=== PATIENT | female | born 1950 | race Caucasian/White ===

== ENCOUNTER → 2016-08-14 | Outpatient (CLI) | payer MEDICARE ==
[2016-08-14 12:34] LABS: ALT 31 U/L (9-52); AST 23 U/L (14-36); Alkaline Phosphatase 62 U/L (38-126); Anion Gap 11 mmol/L; Blood Urea Nitrogen 20 mg/dL (7-17); Calcium 9.5 mg/dL (8.4-10.2); Carbon Dioxide 23 mmol/L (22-30); Chloride 107 mmol/L (98-107); Glucose 154 mg/dL (74-99); Non-African American GFR(MDRD) >60 (>60 ml/min/1.73 sqM); Potassium 4.4 mmol/L (3.5-5.1); Sodium 141 mmol/L (137-145); Total Bilirubin 0.5 mg/dL (0.2-1.3); Total Protein 6.7 g/dL (6.3-8.2)
== END ==
LOC: LABWHC1 11:38
PROVIDERS: ATTEND Internal Medicine Critical Care Medicine
DX: D86.0 Sarcoidosis of lung (principal)
CPT/HCPCS: 36415; 80053; 82164; 85652

== ENCOUNTER 2016-08-15 11:25 | Emergency (ER) | payer MEDICARE, OTHER ==
[2016-08-15 11:36] VITALS: BP 144/64; PULSE 74; RESP 18; TEMP 97.2
[2016-08-15] MEDS ORDERED: DIPH,PERTUS(ACELL)TETVAC-LF 0.5 ML VIAL IM ONE (12:07)
--- NOTE | 2016-08-15 12:42 | XR ---
EXAMINATION TYPE: XR forearm RT DATE OF EXAM: 08/15/2016 12:32 PM CLINICAL HISTORY: Fall injury with pain. Proximal laceration. TECHNIQUE: Two views of the right forearm are obtained. COMPARISON: None. FINDINGS: There is no acute fracture or dislocation seen in the right radius or ulna. Osseous struct ures are demineralized. There is some spurring at right elbow joint. Right wrist joint is felt within normal limits. There is a dystrophic calcification mid forearm soft tissue. There is defect consiste nt with laceration along the volar ulnar aspect of the proximal forearm, no suspicious radiodense for eign body is seen. IMPRESSION: There is no acute fracture or dislocation seen in the right radius or ulna.
--- NOTE | 2016-08-15 12:45 | XR ---
EXAMINATION TYPE: XR hand complete LT DATE OF EXAM: 08/15/2016 12:32 PM CLINICAL HISTORY: Pain from fall injury particularly in fourth finger TECHNIQUE: Frontal, lateral and oblique images of the left hand are obtained. COMPARISON: None. FINDINGS: There is no acute fracture/dislocation evident in the left hand with particular attention in distal fourth finger. Osseous structures are demineralized. There is mild to moderate joint space loss throughout the PIP and PIP joints of the phalanges. Mild spurring first interphalangeal joint i s noted. The overlying soft tissue appears unremarkable. IMPRESSION: There is no acute fracture or dislocation in the left hand.
--- NOTE | 2016-08-15 12:54 | ED ---
General Adult HPI - General Chief complaint: Head Injury Stated complaint: HEAD INJURY FROM FALL ON PROPERTY Time Seen by Provider: 08/15/16 11:38 Source: patient, RN notes reviewed Mode of arrival: ambulatory Limitations: no limitations - History of Present Illness Initial comments: If complaint and history of present illness a 66-year-old female who is coming to the hospital to have a PET scan. She reports she had a little episode where she lost her balance and fell while actually signing into the hospital. She bumped her head on the counter bruised her right forearm and jammed her left ring finger. She received a 4 cm laceration on her scalp. The patient is on Plavix because she has 2 stents in her legs. Did not lose consciousness no nausea no vomiting no seizure activity. - Related Data Home Medications Medication Instructions Recorded Confirmed Cholecalciferol [Vitamin D3] 1,000 unit PO DAILY 08/15/16 08/15/16 Clopidogrel [Plavix] 75 mg PO DAILY 08/15/16 08/15/16 DULoxetine HCL [Cymbalta] 30 mg PO BID 08/15/16 08/15/16 carBAMazepine [TEGretol] 400 mg PO Q12H 08/15/16 08/15/16 Allergies Allergy/AdvReac Type Severity Reaction Status Date / Time erythromycin base Allergy Rash/Hives Verified 08/15/16 12:50 Fish Containing Products Allergy Anaphylaxis Verified 08/15/16 12:50 Penicillins Allergy Swelling Verified 08/15/16 12:50 Review of Systems ROS Statement: Those systems with pertinent positive or pertinent negative responses have been documented in the HPI. You have systems patient has a headache where she bumped her head. Denies any neck pain. No visual acuity changes no chest pain shows breath GI/ problems other than muscle pain from preventing herself from falling. Small bruise on her right forearm and tender left ring finger. All systems are reviewed. Past medical problems include coronary artery disease, diabetes mellitus, hyperlipidemia and hypothyroidism. Surgeries include appendectomy, previous back surgery, cholecystectomy, heart catheterization, bilateral knee replacements. She also has stents in her legs to increase blood flow. She quit smoking. ALLERGIES erythromycin base and penicillins ROS Other: All systems not noted in ROS Statement are negative. Past Medical History Past Medical History: Coronary Artery Disease (CAD), Diabetes Mellitus, Hyperlipidemia, Thyroid Disorder History of Any Multi-Drug Resistant Organisms: None Reported Past Surgical History: Appendectomy, Back Surgery, Cholecystectomy, Heart Catheterization With Stent Additional Past Surgical History / Comment(s): bilateral knee replacement, right rotator cuff Past Psychological History: Depression Smoking Status: Former smoker General Exam - General Exam Comments Initial Comments: General: The patient is awake and alert, she has a for similar laceration just along the hairline in the upper left forehead area. No loss of consciousness no nausea no vomiting or seizure activity. The patient's vital signs show temperature 97.2 pulse 74 story rate 18 pulse ox 99% room air blood pressure 144/64. Eye: Pupils are equal, round and reactive to light, extra-ocular movements are intact ; there is normal conjunctiva bilaterally. No signs of icterus. Ears, nose, mouth and throat: There are moist mucous membranes. Neck: The neck is supple, there is no tenderness . Cardiovascular: There is a regular rate and rhythm. No murmur, rub or gallop is appreciated. Respiratory: Lungs are clear to auscultation, respirations are non-labored, breath sounds are equal. No wheezes, stridor, rales, or rhonchi. Gastrointestinal: Soft, non-distended, non-tender abdomen without masses or organomegaly noted. There is no rebound or guarding present. No CVA tenderness. Bowel sounds are unremarkable. Back: Denies back pain. Musculoskeletal: Small bruise right forearm. Also tenderness with slight decreased range of motion to her left ring finger. He does have a previous injury causing a swan neck deformity. Neurovascular status intact. Skin: Neurological: Neurologically intact no evidence of any focal or lateralizing findings complaints. Skin is warm and dry and no rashes or lesions are noted. Limitations: no limitations Course Vital Signs 08/15/16 11:30 Temperature 97.2 F L Pulse Rate 74 Respiratory 18 Rate Blood Pressure 144/64 O2 Sat by Pulse 99 Oximetry Procedures - Procedures Initial comment: Procedure; laceration repair, 4 cm upper left for had along the hairline. Sterile technique was used. 1% Xylocaine was used numb the area. Cleaned well Betadine normal saline solution. The wound edges are approximated with 8 simple 6-0 nylon sutures. Hemostasis obtained with suturing and pressure. Small amount of bacitracin applied. Patient was advised to return in 7 days to have these removed. They are in the hairline. Or earlier should be signs of infection. Dr. Evnas Medical Decision Making - Medical Decision Making Oswald decision-making; the patient's x-rays include right forearm. This is reviewed by radiologist his impression is there is no acute fracture dislocation seen in the right radius or ulna. As read by Dr. ellis X-ray left hand reviewed by me showing demineralization but no acute bony fracture. There are some arthritic changes. Waiting radiologist's final impression. The radiologist review of the hand and his final impression is is no acute fracture dislocation of the left hand. As read by Dr. ellis CT of the brain and cervical spine were done and reviewed his final impression is there is no acute fracture dislocation evident in the cervical spine. No acute intracranial hemorrhage or midline shift. 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 As read by Dr. ellis She'll be discharged emergency room stable. Repeat questioning finds no new aches pains or problems. Was advised to have the sutures out in 7 days. Ice to her finger and forearm where she has some bumps and bruises. Disposition Clinical Impression: Scalp laceration, Contusion of forearm, right, Sprain, finger Disposition: HOME SELF-CARE Condition: Fair Instructions: Scalp Contusion in Adults (ED), Laceration (ED) Additional Instructions: Return in 7 days for suture to be removed earlier should be signs of infection. I ice to the area. Follow-up with family physician return emergency room. Time of Disposition: 13:04
--- NOTE | 2016-08-15 12:59 | CT ---
EXAMINATION TYPE: CT brain cspine wo con DATE OF EXAM: 08/15/2016 12:45 PM COMPARISON: CT brain August 21, 2010. HISTORY: fall and laceration to top of head at hair line CT DLP: DLP brain 1060.8 and Cervical 583.4 mGycm. Automated Exposure Control for Dose Reduction was Utilized. TECHNIQUE: CT scan of the head and cervical spine are performed without contrast. FINDINGS: There is no acute intracranial hemorrhage or midline shift identified. Ventricular and casey lcal prominence consistent with mild age-related cerebral atrophy is present. There is old infarct ri ght head of caudate nucleus level near axial image 20 redemonstrated. The globes are intact and the visualized sinuses are clear. The calvarium is intact. Cervical spine is visualized in its entirety from C1 through upper thoracic levels and demonstrates s atisfactory alignment without evidence of acute fracture or dislocation. Prevertebral soft tissue ap pears within normal limits. The C1-C2 articulation is within normal limits on the coronal images. Vertebral body heights are maintained. There is moderate to severe multilevel spurring. There is mild multilevel disc space narrowing most prominent C5-C6 and C6-C7 levels. Posterior spur disc complexes are effacing anterior thecal sac at these levels on sagittal and axial images. Vertebral body height s are maintained. Review of axial images show some left-sided marginal spurring contributing to multi level neural foraminal narrowing. There is mild apical thickening in both lung apices. Thyroid gland is felt within normal limits. Osseous structures are somewhat demineralized. IMPRESSION: 1. There is no acute fracture or dislocation is evident in the cervical spine. 2. No acute intracranial hemorrhage or midline shift. 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
== END 2016-08-15 13:13 | disposition home or self-care (01) ==
LOC: EC 11:25
DX: S63.615A Unspecified sprain of left ring finger, initial encounter (principal); S01.81XA Laceration without foreign body of other part of head, initial encounter; S50.11XA Contusion of right forearm, initial encounter; M19.042 Primary osteoarthritis, left hand; F32.9 Major depressive disorder, single episode, unspecified; Z87.891 Personal history of nicotine dependence; Z79.02 Long term (current) use of antithrombotics/antiplatelets; Z79.899 Other long term (current) drug therapy; Z88.0 Allergy status to penicillin; Z88.1 Allergy status to other antibiotic agents; Z91.013 Allergy to seafood; Z95.818 Presence of other cardiac implants and grafts; Z23 Encounter for immunization; W01.198A Fall on same level from slipping, tripping and stumbling with subsequent striking against other object, initial encounter; Y92.239 Unspecified place in hospital as the place of occurrence of the external cause; Y93.89 Activity, other specified
CPT/HCPCS: 99284 ×2; 12013 ×2; 90471 ×2; 73090; 73130; 78815; 72125; 70450; 90715; A9552

== ENCOUNTER → 2016-08-15 | Outpatient (CLI) | payer MEDICARE, OTHER ==
--- NOTE | 2016-08-18 18:43 | PE ---
EXAMINATION TYPE: PET CT fusion skull to thigh DATE OF EXAM: 08/15/2016 3:03 PM CLINICAL HISTORY: 66-year-old female with thoracic lymphadenopathy, initial evaluation. TECHNIQUE: Following the intravenous administration of 14.82 mCi of F-18 FDG, whole body images are performed from the skull base to the midthigh. Images are reviewed on the computer in the coronal, axial, and sagittal planes. Reconstructed rotating images are created on independent workstation and reviewed on the computer. A localization and attenuation correction CT is performed in conjunction with the PET scan. Glucose level: 74 mg/dL CTDI: 5.32 mGy DLP: 473.46 mGy-cm COMPARISON: CT chest 09/16/2011 FINDINGS: PET: Physiologic FDG uptake within the neck. Scattered nonenlarged and mildly enlarged mediastinal lymph nodes are redemonstrated. These measure u p to 1 cm in the AP window and 1.2 cm in the right paratracheal region. Lack of IV contrast limits as sessment of the hilar structures. These lymph nodes show minimal to no FDG uptake, maximal SUV 2.1, a nd are unchanged from 09/16/2011. However, interstitial and patchy, confluent groundglass opacities predominantly in the mid to lower l ungs have shown interval increase as compared to 09/16/2011. These areas show variable mild hypermetab olism, maximal SUV 2.5. Small focal area of mild FDG uptake seen along the apex of the right hemidiaphragm, axial PET image 9 7 and also at the posterior right costophrenic angle, axial PET image 112. CT shows no discrete nodul e in these locations but a nodule could be obscured by the groundglass. Max SUV 2.7 and 2.2, respecti vely. There is focal moderate FDG uptake, max SUV 4.6, in the location of the gastric antrum which could re present physiologic muscular activity. Variable bowel activity is likely physiologic. More intense long segment activity along the mid to di stal sigmoid and rectum also likely physiologic. There is an intensely hypermetabolic left inguinal lymph node which is mildly enlarged at 1.6 cm shor t axis. Max SUV 16.0. ATTENUATION CORRECTION CT: Visualized paranasal sinuses and mastoid air cells appear clear. No cervical lymphadenopathy. The heart is borderline to mildly enlarged without pericardial effusion. Coronary vessel calcificatio ns are present and are a marker for coronary artery disease. Mild atherosclerotic arch calcification s with conventional arch vessel branching anatomy. Mildly enlarged caliber to the main right and lef t pulmonary arteries and 2.7 cm each suggests underlying pulmonary arterial hypertension. No pleural effusion. Cholecystectomy clips. Moderate atherosclerotic calcifications within the abdominal aorta with a AAA measuring 3.2 cm wide. Bilateral common iliac artery stents are present. No dilated small bowel, vidya e fluid, or free air. No mesenteric or retroperitoneal lymphadenopathy seen. Bladder is urine distended. Uterus surgically absent. No adnexal mass or abnormal fluid collection in the pelvis. Bones: Degenerative changes of the hips. Posterior lumbar fusion hardware with laminectomy change is noted. Endplate spondylosis throughout the thoracic spine. No osseous destructive process. IMPRESSION: 1. Nonenlarged and borderline to mildly enlarged mediastinal lymph nodes measuring up to 1.2 cm show minimal to no FDG uptake with lymph nodes stable from 09/16/2011 suggesting a chronic postinflammatory etiology. 2. However, there is a mildly enlarged 1.6 cm left inguinal chain lymph node that shows very intense hypermetabolism and is suspicious. Targeted ultrasound and tissue sampling is recommended. 3. Moderate FDG uptake at the gastric antrum could be physiologic. However, given the focality, recom mend direct visualization to exclude early neoplasm. 4. Interstitial and groundglass changes especially in the mid to lower lungs have progressed from 201 2. These areas show mild FDG uptake suggesting an inflammatory process. Some differential considerati ons include interstitial pneumonitis such as NSIP and hypersensitivity pneumonitis. Atypical pneumoni as considered less likely. Clinical correlation recommended. 4. Two small areas of focal mild uptake at the right base without visualized pulmonary nodules. Recom mend 6 month follow-up contrast-enhanced CT chest to reassess. 5. Incidental findings include CAD, pulmonary arterial hypertension, and a 3.2 cm AAA.
== END | disposition home or self-care (01) ==
LOC: RADPETMAIN 13:11
PROVIDERS: ATTEND Internal Medicine Critical Care Medicine
DX: R59.0 Localized enlarged lymph nodes (principal); J84.89 Other specified interstitial pulmonary diseases; R94.8 Abnormal results of function studies of other organs and systems; E11.9 Type 2 diabetes mellitus without complications
CPT/HCPCS: 78815; A9552

== ENCOUNTER → 2016-08-17 | Outpatient (CLI) | payer MEDICARE, OTHER | END | disposition home or self-care (01) | LOC: LABWHC1 12:56 | PROVIDERS: ATTEND Internal Medicine Critical Care Medicine | DX: D86.0 Sarcoidosis of lung (principal) | CPT/HCPCS: 81050; 82340 ==

== ENCOUNTER 2016-09-09 11:04 | Day surgery (SDC) | payer MEDICARE, OTHER ==
[2016-09-09 11:32] VITALS: RESP 14; TEMP 98
[2016-09-09 12:32] VITALS: BP 155/61; PULSE 69
--- NOTE | 2016-09-09 15:16 | US ---
EXAMINATION TYPE: US biopsy lymph node DATE OF EXAM: 09/09/2016 12:21 PM HISTORY: Left inguinal adenopathy, mass. FINDINGS: Maximal barrier technique was utilized. The skin overlying a suitable path to the patient' s mass was localized with ultrasound and the overlying skin prepped and draped. Ultrasound was utili zed with sterile technique. Lidocaine was used for local anesthesia. A skin gabby was made with a sc alpel. An 18-gauge needle was advanced under direct ultrasound guidance and core specimen obtained o f the mass. Specimen submitted in formalin to Pathology. Following the procedure, hemostasis achiev ed and the patient is discharged in stable condition without complication. IMPRESSION:STATUS POST ULTRASOUND GUIDED CORE BIOPSY OF left inguinal MASS, PATHOLOGY IS PENDING. TH IS PROCEDURE IS PERFORMED BY THE UNDERSIGNED.
== END 2016-09-09 12:28 | disposition home or self-care (01) ==
LOC: RADPROMAIN 11:04
PROVIDERS: ATTEND Internal Medicine Critical Care Medicine
DX: C96.9 Malignant neoplasm of lymphoid, hematopoietic and related tissue, unspecified (principal); E78.5 Hyperlipidemia, unspecified; E03.9 Hypothyroidism, unspecified; Z87.891 Personal history of nicotine dependence; E11.9 Type 2 diabetes mellitus without complications; Z79.84 Long term (current) use of oral hypoglycemic drugs; Z79.02 Long term (current) use of antithrombotics/antiplatelets; Z79.82 Long term (current) use of aspirin; Z79.899 Other long term (current) drug therapy; Z88.0 Allergy status to penicillin
CPT/HCPCS: 38505; 76942; 88305; 88341; 88342

== ENCOUNTER 2016-09-21 06:00 | Inpatient (IN) | payer MEDICARE, OTHER ==
[2016-09-18 09:08] VITALS: BMI 35.4
[~2016-09-21 06:00] MED LIST: DEXAMETHASONE SOD PHOSPHATE 10 MG/ML 1 ML VIAL IV ONE; LACTATED RINGERS 1,000 ML IV SCH; LIDOCAINE 1% 20 ML VIAL (10MG/ML) FOR IV START INTRADERMA PRN; ONDANSETRON 4 MG/2 ML VIAL IVP ONE; Pre Op ABX Message 1 EACH MISC MISCELLANE ONE; SCOPOLAMINE 1.5MG/72HR PATCH TRANSDERM ONE
[2016-09-21 06:53] LABS: Glucose,Whole Blood 123 mg/dL (75-99)
[2016-09-21] MEDS ORDERED: BUPIVACAINE (PF) 0.5% 30 ML VIAL SQ ONE ×2 (07:53→09:39)
[2016-09-21] MEDS ORDERED: HYDROmorphone (PF) 1 MG/ML ONE (08:10)
[2016-09-21] MEDS ORDERED: SUCCINYLCHOLINE CHLORIDE 100 MG/5 ML SYR IV ONE (08:10)
[2016-09-21] MEDS ORDERED: GLYCOPYRROLATE 0.2 MG/ML 2 ML VIAL ONE (08:10)
[2016-09-21] MEDS ORDERED: ROCURONIUM BROMIDE 10 MG/ML 10 ML VIAL IV ONE (08:10)
[2016-09-21] MEDS ORDERED: PROPOFOL 10 MG/ML 20 ML VIAL IV ONE (08:10)
[2016-09-21] MEDS ORDERED: NEOSTIGMINE 1 MG/ML 10 ML VIAL ONE (08:10)
[2016-09-21] MEDS ORDERED: MIDAZOLAM 2 MG/2 ML VIAL ONE (08:10)
[2016-09-21] MEDS ORDERED: fentaNYL (PF) 50 MCG/ML 2 ML AMP ONE (08:10)
[2016-09-21] MEDS ORDERED: LIDOCAINE 1% INJ 10MG/ML (20 ML MDV) ONE (08:10)
[2016-09-21] MEDS ORDERED: SODIUM CHLORIDE 0.9% 100 ML with ceFAZolin 2,000 MG IV ONE ×2 (08:10)
[2016-09-21] MEDS ORDERED: PHENYLEPHRINE-0.9% NACL SYG 1 MG/10 ML SYRINGE ONE (08:10)
[2016-09-21] MEDS ORDERED: LACTATED RINGERS 1,000 ML IV ONE (09:20)
--- NOTE | 2016-09-21 09:52 | P.OP ---
Date of Procedure: 09/21/16 Preoperative Diagnosis: Bilateral pulmonary infiltrates, mediastinal adenopathy. Postoperative Diagnosis: Same Procedure(s) Performed: Left thoracoscopy, lung biopsy, mediastinal lymph node biopsy Implants: Anesthesia: DIAMANTEA Surgeon: Rajeev Dillon Weapons Officer [employer]: Steve De La Cruz Estimated Blood Loss (ml): 100 IV fluids (ml): 1,400 Urine output (ml): 200 Pathology: other (Biopsy of both upper and lower lobes left long sent for culture and pathology, biopsy of mediastinal lymph node sent for both culture and pathology) Disposition: PACU Indications for Procedure: I lateral pulmonary infiltrates, mediastinal lymph adenopathy Operative Findings: Lung compliance was very poor there were areas of atelectasis of the lung tissue which were associated with increased bogginess of the lung tissue there was an enlarged mediastinal lymph node in the paraAortic region Description of Procedure: The patient was brought to the operating room placed supine on the operating table anesthetized and intubated with a double-lumen endotracheal tube. The tube was positioned with fiberoptic bronchoscopy. No endobronchial lesions were noted. Patient was turned in the right lateral decubitus position and the left chest sterilely prepped and draped. One-inch incisions were made in the left chest and carried down through skin and subcutaneous tissue and muscle and into the pleural space. The pleural space was explored. The findings were as noted above. Lung compliance was very poor and we never obtain complete pneumothorax and atelectasis of the lung. We proceeded to biopsy the left upper and lower lobe with multiple firings of Endo TITO stapler. Specimens were brought out onto the field and divided. A portion were sent for culture. The remainder was sent for pathology. We had to reposition the endotracheal tube several times. With the tube in optimal position we were able to expose the mediastinum early and clearly identify an enlarged lymph node behind the pleura overlying the arch of the aorta. Electrocautery was used to incise the pleura at this region being careful to avoid injury to the phrenic nerve. The lymph node was dissected out from the mediastinal fat using electrocautery and blunt dissection and brought out onto the field. The site was packed with some Surgicel. The specimen was divided and a portion was sent for culture and the remainder for pathology. It and suctioned out the blood and fluid from the pleural space and checked for hemostasis which was good. 28-Kiswahili chest tube was placed through separate stab incision and positioned posterior apically. It was secured with an 0 Ethibond suture. The lung was reinflated under direct vision. Rib blocks were performed at the level of the incision with half percent Marcaine. Incisions were closed with layers of Vicryl suture. There were dressed with sterile dressings and the patient was turned supine and extubated and transferred to recovery in stable condition.
[2016-09-21 10:26] LABS: Glucose,Whole Blood 156 mg/dL (75-99)
--- NOTE | 2016-09-21 10:38 | XR ---
EXAMINATION TYPE: XR chest 1V portable DATE OF EXAM: 09/21/2016 HISTORY: Left chest tube. REFERENCE: Previous study dated 10/26/2014. FINDINGS: A left pleural drain has been inserted. Its tip is at the apex of the left lung. The heart is enlarged. There is diffuse interstitial and airspace disease, worse on the left than the right. I cannot exclud e a small left effusion. There is a minimal apical pneumothorax on the left. IMPRESSION: 1. MINISCULE, LEFT APICAL PNEUMOTHORAX. 2. STATUS POST LEFT-SIDED CHEST TUBE PLACEMENT. 3. INTERSTITIAL AND ALVEOLAR AIRSPACE DISEASE BILATERALLY WORSE ON THE LEFT THAN THE RIGHT. THIS LIKE LY REFLECTS PNEUMONIA. 4. I CANNOT EXCLUDE A SMALL LEFT-SIDED PNEUMOTHORAX.
[2016-09-21] MEDS: HYDROmorphone 1 MG/ML 1 ML SYRINGE IVP PRN ×4 (11:47→15:57)
[2016-09-21] MEDS: KETOROLAC 30 MG/ML 1 ML VIAL IVP SCH ×3 (13:00→23:32)
[2016-09-21] MEDS ORDERED: IPRATROPIUM-ALBUTEROL 3 ML NEB IH PRN (15:59)
[2016-09-21] MEDS ORDERED: HYDROcodone/APAP 5-325MG 1 EACH TAB PO PRN (15:59)
[2016-09-21] MEDS ORDERED: FAMOTIDINE 20 MG TAB PO PRN (15:59)
[2016-09-21] MEDS ORDERED: ONDANSETRON 4 MG/2 ML VIAL IVP PRN (15:59)
[2016-09-21 16:22] LABS: Glucose,Whole Blood 142 mg/dL (75-99)
[2016-09-21] MEDS: DEXTROSE 5%-0.45% NACL 1,000 ML IV SCH (17:49)
--- NOTE | 2016-09-21 18:55 | XR ---
EXAMINATION TYPE: XR chest 1V DATE OF EXAM: 09/21/2016 COMPARISON: Today HISTORY: Postop heart surgery TECHNIQUE: Single frontal view of the chest is obtained. FINDINGS: There is a left chest tube that appears in good position. I see no pneumothorax. There are chest leads. There is coarsening of interstitial markings. There is probably some infiltrate in the left lung. IMPRESSION: Left chest tube without change in position compared to last exam. No pneumothorax. No gr oss heart failure. Infiltrate in left lung is unchanged compared to the exam this morning.
[2016-09-21] MEDS: HYDROcodone/APAP 5-325MG 1 EACH TAB PO PRN ×2 (19:14→23:31)
[2016-09-21] MEDS: IPRATROPIUM-ALBUTEROL 3 ML NEB IH SCH ×2 (19:33)
[2016-09-21] MEDS ORDERED: traZODone HCL 100 MG TAB PO SCH (21:00)
[2016-09-21] MEDS ORDERED: ATORVASTATIN 10 MG TAB PO SCH (21:00)
[2016-09-21] MEDS: metFORMIN 500 MG TAB PO SCH (21:16)
[2016-09-21] MEDS: carBAMazepine 200 MG TAB PO SCH (21:16)
[2016-09-21] MEDS: HEPARIN SODIUM,PORCINE 5,000 UNIT/ML 1 ML VIAL SQ SCH (21:16)
[2016-09-21] MEDS: OXYBUTYNIN CHLORIDE 5 MG TAB PO SCH (21:16)
[2016-09-21 21:17] LABS: Glucose,Whole Blood 164 mg/dL (75-99)
[2016-09-21] MEDS: INSULIN LISPRO (humaLOG) 300 UNIT/3 ML VIAL SQ SCH (21:17)
[2016-09-22 04:30] LABS: Glucose,Whole Blood 90 mg/dL (75-99)
[2016-09-22] MEDS: HYDROcodone/APAP 5-325MG 1 EACH TAB PO PRN ×2 (04:31→11:46)
[2016-09-22 04:56] LABS: Basophils % (A) 1 %; CH 32.5; CHCM 32.7; Eosinophils % (A) 1 %; HDW 2.34; HGB 11.4 gm/dL (11.4-16.0); Luc # (Auto) 0.18; Luc % (Auto) 2; Lymphocytes # (A) 3.3 k/uL (1.0-4.8); Lymphocytes % (A) 41 %; MCH 32.6 pg (25.0-35.0); MCHC 32.7 g/dL (31.0-37.0); MCV 99.8 fL (80.0-100.0); Mean Platelet Volume 7.2; Monocytes # (A) 0.4 k/uL (0-1.0); Monocytes % (A) 5 %; Neutrophils % (A) 51 %; RBC 3.51 m/uL (3.80-5.40); RDW 13.5 % (11.5-15.5); WBC 7.9 k/uL (3.8-10.6); WBC (Perox) 8.03
[2016-09-22] MEDS: DEXTROSE 5%-0.45% NACL 1,000 ML IV SCH (05:10)
[2016-09-22 05:36] LABS: Anion Gap 9 mmol/L; Blood Urea Nitrogen 22 mg/dL (7-17); Calcium 8.3 mg/dL (8.4-10.2); Carbon Dioxide 24 mmol/L (22-30); Chloride 102 mmol/L (98-107); Glucose 85 mg/dL (74-99); Non-African American GFR(MDRD) >60 (>60 ml/min/1.73 sqM); Potassium 3.9 mmol/L (3.5-5.1); Sodium 135 mmol/L (137-145)
[2016-09-22] MEDS ORDERED: POTASSIUM CHLORIDE ER 20 MEQ TAB.ER PO SCH (06:00)
[2016-09-22] MEDS ORDERED: Potassium Replacement Protocol 1 EACH MISC MISCELLANE PRN (06:00)
[2016-09-22] MEDS: KETOROLAC 30 MG/ML 1 ML VIAL IVP SCH ×2 (06:20→12:34)
[2016-09-22] MEDS ORDERED: LEVOTHYROXINE 25 MCG TAB PO SCH (06:30)
[2016-09-22] MEDS ORDERED: GLIMEPIRIDE 2 MG TAB PO SCH (07:30)
[2016-09-22] MEDS: IPRATROPIUM-ALBUTEROL 3 ML NEB IH SCH ×2 (07:38→10:58)
--- NOTE | 2016-09-22 07:57 | XR ---
EXAMINATION TYPE: XR chest 1V DATE OF EXAM: 09/22/2016 HISTORY: post op. REFERENCE: Previous study dated 09/21/2016. FINDINGS: The left pleural drain remains in place, unchanged in appearance. Heart size upper limits of normal. There is vascular congestion and increased interstitial change. I suspect a left effusion. IMPRESSION: FINDINGS CONSISTENT WITH WORSENING HEART FAILURE.
[2016-09-22 08:03] LABS: Glucose,Whole Blood 102 mg/dL (75-99)
[2016-09-22 08:43] VITALS: TEMP 98.3
[2016-09-22] MEDS: OXYBUTYNIN CHLORIDE 5 MG TAB PO SCH (08:53)
[2016-09-22] MEDS: metFORMIN 500 MG TAB PO SCH (08:53)
[2016-09-22] MEDS: INSULIN LISPRO (humaLOG) 300 UNIT/3 ML VIAL SQ SCH ×2 (08:54→12:43)
[2016-09-22] MEDS: carBAMazepine 200 MG TAB PO SCH (08:54)
[2016-09-22] MEDS: HEPARIN SODIUM,PORCINE 5,000 UNIT/ML 1 ML VIAL SQ SCH (08:57)
[2016-09-22] MEDS ORDERED: CHOLECALCIFEROL 1,000 UNIT TAB PO SCH (09:00)
[2016-09-22] MEDS ORDERED: DIPYRIDAMOLE 25 MG TAB PO SCH (09:00)
[2016-09-22] MEDS ORDERED: CLOPIDOGREL 75 MG TAB PO SCH (09:00)
[2016-09-22] MEDS ORDERED: CITALOPRAM HYDROBROMIDE 20 MG TAB PO SCH (09:00)
--- NOTE | 2016-09-22 09:57 | P.PN ---
Subjective Principal diagnosis: Bilateral pulmonary infiltrates, mediastinal adenopathy POD #1 left thoracoscopy, lung biopsy, mediastinal lymph node biopsy Patient is currently sitting up in bed in no apparent distress. States she has ambulated to the bathroom without any difficulty. Tolerating diet. Objective - Vital Signs Vital signs: Vital Signs Temp 98.6 F 09/22/16 04:00 Pulse 75 09/22/16 07:56 Resp 13 09/22/16 04:00 BP 96/48 09/22/16 04:00 Pulse Ox 95 09/22/16 04:00 Intake & Output 09/21/16 09/22/16 09/22/16 18:59 06:59 18:59 Intake Total 1850 1200 Output Total 300 700 Balance 1550 500 Weight 98.5 kg Intake: IV 1850 1100 Dextrose 5%-0.45% NaCl 1, 1100 000 ml @ 75 mls/hr IV . [id number] [facility] Rx#:[id number] Oral 100 Output: Chest Tube Drainage 180 Left Lateral Chest 180 Drainage 20 Left Chest 20 Urine 200 500 Estimated Blood Loss 100 Other: Voiding Method Toilet Toilet - Constitutional General appearance: Present: cooperative, no acute distress - Respiratory Details: Lungs sounds diminished bilaterally, coarse bilateral bases. Respirations even , nonlabored. Currently delusional is cannula suction saturation 95%. Left pleural chest tube to -20 cm wall suction, drained 100 mL serous fluid overnight , 380 mL since surgery. No air leak present. Able to achieve 1500 mL on her incentive spirometer. - Cardiovascular Details: S1, S2 present. Regular rate and rhythm, normal sinus rhythm on telemetry. - Gastrointestinal Gastrointestinal Comment(s): Abdomen soft, nontender, nondistended. Active bowel sounds 4 quadrants. Tolerating diet. - Genitourinary Genitourinary Comment(s): Voiding clear, yellow urine - Musculoskeletal Musculoskeletal: Present: gait normal, strength equal bilaterally - Psychiatric Psychiatric: Present: A&O x's 3, appropriate affect, intact judgment & insight - Allied health notes Allied health notes reviewed: nursing - Labs CBC & Chem 7: 09/22/16 04:04 09/22/16 04:04 Labs: Abnormal Lab Results - Last 24 Hours (Table) 09/21/16 09/21/16 09/21/16 Range/Units 10:24 16:20 21:14 RBC (3.80-5.40) m/uL Sodium (137-145) mmol/L BUN (7-17) mg/dL POC Glucose (mg/dL) 156 H 142 H 164 H (75-99) mg/dL Calcium (8.4-10.2) mg/dL 09/22/16 09/22/16 09/22/16 Range/Units 04:04 04:04 08:01 RBC 3.51 L (3.80-5.40) m/uL Sodium 135 L (137-145) mmol/L BUN 22 H (7-17) mg/dL POC Glucose (mg/dL) 102 H (75-99) mg/dL Calcium 8.3 L (8.4-10.2) mg/dL Microbiology - Last 24 Hours (Table) 09/21/16 09:12 Gram Stain - Preliminary Lung - Left Tissue Culture - Preliminary 09/21/16 09:12 Gram Stain - Preliminary Lung - Left Tissue Culture - Preliminary 09/21/16 09:28 Gram Stain - Preliminary Lymph Node Tissue Culture - Preliminary 09/21/16 09:28 Fungal Culture - Preliminary Lymph Node 09/21/16 09:12 Fungal Culture - Preliminary Lung - Left 09/21/16 09:28 Anaerobic Culture - Preliminary Lymph Node 09/21/16 09:12 Anaerobic Culture - Preliminary Lung - Left 09/21/16 09:12 Anaerobic Culture - Preliminary Lung - Left 09/21/16 09:12 Fungal Culture - Preliminary Lung - Left 09/21/16 09:12 Acid Fast Bacilli Culture - Preliminary Lung - Left 09/21/16 09:28 Acid Fast Bacilli Culture - Preliminary Lymph Node 09/21/16 09:12 Acid Fast Bacilli Culture - Preliminary Lung - Left - Imaging and Cardiology Chest x-ray: report reviewed, image reviewed Assessment and Plan (1) Bilateral pulmonary infiltrates on chest x-ray Status: Acute (2) Mediastinal adenopathy Status: Acute (3) Diabetes Status: Acute (4) Obesity (BMI 30-39.9) Status: Acute (5) Peripheral vascular disease Status: Acute (6) Arthritis Status: Acute (7) Hypercholesterolemia Status: Acute Plan: 1. Chest tube placed to waterseal. 2. Wean O2 as tolerated. Encourage incentive spirometry use. 3. Pain control with ordered medications. 4. Increase activity, ambulate in hallway. 5. GI/DVT prophylaxis. 6. May discontinue chest tube, repeat chest x-ray, and possibly discharge later today. Time with Patient: Greater than 30
[2016-09-22] MEDS ORDERED: FUROSEMIDE 10 MG/ML 2 ML VIAL IV ONE (10:13)
--- NOTE | 2016-09-22 10:13 | P.PN ---
Subjective 66-year-old female patient who underwent a a left thoracoscopy, lung biopsy and mediastinal lymph node biopsy. The surgery was done by Dr. Rajeev Dillon. Estimated blood loss was 100 mL. Postop the patient came into the intensive care unit. The patient currently has a chest tube with no evidence of any air leak and the postop the chest x-ray shows adequate expansion of both lungs without evidence of any pneumothorax. This patient has been having difficulties with shortness of breath and cough and nonproductive sputum. She has a long history of smoking and she carries more than [id number] smoking history. She quit smoking and for now she is smoke free. She is also known to have obstructive sleep apnea and she is utilizing his CPAP each is also known to have peripheral vascular disease and has undergone percutaneous revascularization surgery. Currently she is hemodynamically stable. No pain issues. No respiratory difficulties. I acid at the bedside. On 09/22/2016, the patient is postop day #1. The patient is doing well. Pain is under good control. Today chest x-ray shows increased pulmonary vascular markings yet that is no evidence of any pneumothorax and a chest tube is in a good location and there is no evidence of any air leak. Hemodynamically the patient remains stable on no oxygen. The output from the chest tube is around 100 mL only over the past 12 hours Objective - Vital Signs Vital signs: Vital Signs Temp 98.3 F 09/22/16 08:00 Pulse 81 09/22/16 08:00 Resp 24 09/22/16 08:00 BP 95/47 09/22/16 08:00 Pulse Ox 96 09/22/16 08:00 Intake & Output 09/21/16 09/22/16 09/22/16 18:59 06:59 18:59 Intake Total 1850 1200 225 Output Total 300 700 140 Balance 1550 500 85 Weight 98.5 kg Intake: IV 1850 1100 225 Dextrose 5%-0.45% NaCl 1, 1100 225 000 ml @ 75 mls/hr IV . [id number] [facility] Rx#:[id number] Oral 100 Output: Chest Tube Drainage 180 40 Left Lateral Chest 180 40 Drainage 20 Left Chest 20 Urine 200 500 100 Estimated Blood Loss 100 Other: Voiding Method Toilet Toilet - Exam Head exam was generally normal. There was no scleral icterus or corneal arcus. Mucous membranes were moist.Neck was supple and without jugular venous distension, thyromegaly, or carotid bruits. Carotids were easily palpable bilaterally. There was no adenopathy. Lung sounds are diminished in lung bases bilaterally along with some bibasilar crackles and the patient has a chest tube on the left. Incision and surgical wound sites are all clean and intact.Cardiac exam revealed the PMI to be normally situated and sized. The rhythm was regular and no extrasystoles were noted during several minutes of auscultation. The first and second heart sounds were normal and physiologic splitting of the second heart sound was noted. There were no murmurs, rubs, clicks, or gallops. Abdominal exam revealed normal bowel sounds. The abdomen was soft, non-tender, and without masses, organomegaly, or appreciable enlargement of the abdominal aorta.Examination of the extremities revealed easily palpable radial, femoral and pedal pulses. There was no cyanosis, clubbing or edema. - Labs CBC & Chem 7: 09/22/16 04:04 09/22/16 04:04 Labs: Abnormal Lab Results - Last 24 Hours (Table) 09/21/16 09/21/16 09/21/16 Range/Units 10:24 16:20 21:14 RBC (3.80-5.40) m/uL Sodium (137-145) mmol/L BUN (7-17) mg/dL POC Glucose (mg/dL) 156 H 142 H 164 H (75-99) mg/dL Calcium (8.4-10.2) mg/dL 09/22/16 09/22/16 09/22/16 Range/Units 04:04 04:04 08:01 RBC 3.51 L (3.80-5.40) m/uL Sodium 135 L (137-145) mmol/L BUN 22 H (7-17) mg/dL POC Glucose (mg/dL) 102 H (75-99) mg/dL Calcium 8.3 L (8.4-10.2) mg/dL Microbiology - Last 24 Hours (Table) 09/21/16 09:12 Gram Stain - Preliminary Lung - Left Tissue Culture - Preliminary 09/21/16 09:28 Gram Stain - Preliminary Lymph Node Tissue Culture - Preliminary 09/21/16 09:12 Gram Stain - Preliminary Lung - Left Tissue Culture - Preliminary 09/21/16 09:28 Fungal Culture - Preliminary Lymph Node 09/21/16 09:12 Fungal Culture - Preliminary Lung - Left 09/21/16 09:28 Anaerobic Culture - Preliminary Lymph Node 09/21/16 09:12 Anaerobic Culture - Preliminary Lung - Left 09/21/16 09:12 Anaerobic Culture - Preliminary Lung - Left 09/21/16 09:12 Fungal Culture - Preliminary Lung - Left 09/21/16 09:12 Acid Fast Bacilli Culture - Preliminary Lung - Left 09/21/16 09:28 Acid Fast Bacilli Culture - Preliminary Lymph Node 09/21/16 09:12 Acid Fast Bacilli Culture - Preliminary Lung - Left Assessment and Plan Plan: Assessment 1 interstitial lung disease with borderline mediastinal lymphadenopathy, status post thoracoscopy, lung biopsy, mediastinal lymph node biopsy, patient is postop day #1. The patient has output of 100 mL over the past 12 hours and there is no evidence of air leak and there is no evidence of pneumothorax on today's chest x-ray. 2 postsurgical left-sided chest tube 3 obstructive sleep apnea maintained on CPAP on outpatient basis 4 peripheral vascular disease 5 diabetes mellitus 6 obesity 7 degenerative arthritis 8 GERD 9 hyperlipidemia Plan Give the patient dose of Lasix 20 mg IV push. The chest tubes can be removed today. Output is minimal. There is no evidence of any air leak. Lungs are well expanded. Continue using incentive spirometer. Pain control. Discharge home today. Follow-up with pulmonary regarding the results of the open lung biopsy.
--- NOTE | 2016-09-22 11:40 | P.DS ---
Providers Date of admission: 09/21/16 06:00 Attending physician: Rajeev Dillon Consults: 09/21/16 10:08 Consult Physician Routine Consulting Provider: Desean Bhagat Consult Reason/Comments: medical managment Do you want consulting provider notified?: Yes 09/21/16 15:59 Consult Physician Routine Consulting Provider: Oswald Irving Reason/Comments: known to you, post biopsy Do you want consulting provider notified?: Yes Primary care physician: Rajeev Zac [facility] Course: FINAL DIAGNOSIS: 1.[ Bilateral pulmonary infiltrates, mediastinal adenopathy] 2.[ Diabetes mellitus type 2] 3.[ Peripheral arterial vascular disease] 4.[ Obesity] 5.[ Gastroesophageal reflux disease] 6.[ Hyperlipidemia] 7.[ Hypothyroidism] 8.[ Coronary artery disease] 9.[ Sleep apnea] 10.[ History of tobacco abuse] PRINCIPAL PROCEDURE: 1.[ Left thoracoscopy, lung biopsy, mediastinal lymph node biopsy] HISTORY OF PRESENT ILLNESS: [This is a 66-year-old female patient who is followed by Dr. Rajeev Frank on an outpatient basis. Recently, the patient has had complaints of fatigue for several months. Subsequently she underwent a sleep study and was diagnosed with sleep apnea and uses a nighttime CPAP. She continued to have complaints of fatigue and also developed a black toe and was subsequently evaluated by Dr. Medrano from vascular surgery. During her workup for the black toe the patient underwent a CT angiogram from her head to her toe and was incidentally found to have bilateral pulmonary infiltrates as well as some mediastinal adenopathies. Dr. Irving from pulmonary medicine was consulted and a full pulmonary workup was completed. The patient also underwent a PET scan which was suggestive of interstitial lung disease, mildly enlarged mediastinal lymph nodes which measure up to 1 cm in the AP window and 1.2 cm in the right paratracheal region, and demonstrated some positive inguinal lymph nodes which were biopsied, and were positive for poorly differentiated squamous cell carcinoma. She was subsequently referred to Dr. Rajeev Dillon from cardiothoracic surgery to undergo a video-assisted thoracoscopic surgery with lung biopsy. Dr. Dillon did evaluate the patient and review the above- mentioned studies with the patient and recommended an elective video-assisted thoracoscopic surgery with lung biopsy and mediastinal lymph node biopsy.] HOSPITAL COURSE:[ The patient was admitted to the hospital and after obtaining consent was taken to the operating room where Dr. Dillon performed an elective left thoracoscopic surgery with lung biopsy and mediastinal lymph node biopsy. The patient was then transferred to the recovery unit where she was hemodynamically monitored and recovered. She was subsequently transferred to the intensive care unit for further monitoring and medical care. Her pathologies results remain pending at this time, but will be discussed with her on her follow-up visit in the office with Dr. Dillon. ] COMPLICATIONS: [There were no postoperative complications.] CONSULTATIONS: 1.[ Dr. Adams for pulmonary management] 2.[ Dr. Bhagat for medical management] DISCHARGE INSTRUCTIONS: 1. No driving for 2 weeks, or until physician gives their ok. 2. The patient should sleep in their own bed, no medical bed needed. 3. Stairs are not an issue. If the bedroom is upstairs, it is advised that the patient go up at night and down in the morning for the first week. Go slowly, using handrail and take 1 step at a time. 4. Continue pain control per as needed orders. 5. Continue with incentive spirometry until otherwise directed by the physician. 6. Please notify surgeon/nurse practitioner for temperature greater than 10 1 F or purulent drainage from incisions 7. The importance of smoking cessation was discussed with the patient. Plan - Discharge Summary New Discharge Prescriptions: New HYDROcodone/APAP 5-325MG [[place]field 5-325] 1 each PO Q4HR PRN #60 tab PRN Reason: Pain SCALE 1-5 Continue Cholecalciferol [Vitamin D3] 1,000 unit PO DAILY carBAMazepine [TEGretol] 400 mg PO Q12H Clopidogrel [Plavix] 75 mg PO DAILY Levothyroxine Sodium [Synthroid] 25 mcg PO DAILY Glimepiride [Amaryl] 2 mg PO AC-BRKFST Dipyridamole [Persantine] 25 mg PO DAILY Simvastatin [Zocor] 20 mg PO HS metFORMIN HCL [Glucophage] 500 mg PO BID Famotidine [Pepcid] 20 mg PO BID PRN PRN Reason: Gi Upset traZODone HCL [Desyrel] 100 mg PO HS Oxybutynin Chloride [Ditropan] 5 mg PO BID Ibuprofen [Motrin] 800 mg PO BID Citalopram Hydrobromide [Citalopram HBr] 20 mg PO DAILY Discharge Medication List Cholecalciferol [Vitamin D3] 1,000 unit PO DAILY 08/15/16 [History] Clopidogrel [Plavix] 75 mg PO DAILY 08/15/16 [History] Dipyridamole [Persantine] 25 mg PO DAILY 08/15/16 [History] Famotidine [Pepcid] 20 mg PO BID PRN 08/15/16 [History] Glimepiride [Amaryl] 2 mg PO AC-BRKFST 08/15/16 [History] Ibuprofen [Motrin] 800 mg PO BID 08/15/16 [History] Levothyroxine Sodium [Synthroid] 25 mcg PO DAILY 08/15/16 [History] Oxybutynin Chloride [Ditropan] 5 mg PO BID 08/15/16 [History] Simvastatin [Zocor] 20 mg PO HS 08/15/16 [History] carBAMazepine [TEGretol] 400 mg PO Q12H 08/15/16 [History] metFORMIN HCL [Glucophage] 500 mg PO BID 08/15/16 [History] traZODone HCL [Desyrel] 100 mg PO HS 08/15/16 [History] Citalopram Hydrobromide [Citalopram HBr] 20 mg PO DAILY 09/09/16 [History] HYDROcodone/APAP 5-325MG [Bluefield 5-325] 1 each PO Q4HR PRN #60 tab 09/22/16 [Rx] Follow up Appointment(s)/Referral(s): Rajeev Dillon MD [STAFF PHYSICIAN] - 10/12/16 1:00 pm Rajeev Frank MD [Primary Care Provider] - 09/28/16 3:00 pm Oswald Irving DO [Doctor of Osteopathic Medicine] - 10/15/16 10:00 am Discharge Disposition: HOME SELF-CARE
--- NOTE | 2016-09-22 11:46 | XR ---
EXAMINATION TYPE: XR chest 2V DATE OF EXAM: 09/22/2016 HISTORY: post chest tube removal. REFERENCE: Previous study of earlier today. FINDINGS: The patient's left pleural drain has been removed. There is a small, apical pneumothorax on the left. The heart is mildly enlarged. There is mild vascular congestion and interstitial change. I suspect a small left effusion. IMPRESSION: 1. SMALL, LEFT, APICAL PNEUMOTHORAX. 2. FINDINGS CONSISTENT WITH CONGESTIVE HEART FAILURE.
[2016-09-22 12:14] VITALS: BP 109/53; PULSE 78; RESP 16
[2016-09-22 12:44] LABS: Glucose,Whole Blood 108 mg/dL (75-99)
[2016-09-22 13:03] LABS: Hemoglobin A1C 6.2 % (4.2-6.1)
--- NOTE | 2016-09-28 09:47 | CDI ---
In responding to this query, please exercise your independent professional judgment. The [facility] Coding Staff and Clinical Documentation Specialists appreciate your assistance in clarifying documentation, maintaining compliance with coding guidelines, accurately documenting patients condition and capturing severity of illness. The fact that a question is asked does not imply that any particular answer is desired or expected. Communication forms are a method of clarifying documentation and are not made part of the Legal Health Record. Thank you in advance for your clarification. Last Revision, February 2015 Arelis Mukherjee [address] [place] [address] Documentation Clarification Form Date: 09/28/2016 9:27:00 AM From: Kimmie Platt/Nathalia Montgomery Admit Date: 09/21/2016 6:00:00 AM Patient Name: Alexia Rubin Visit Number: [id number] Discharge Date: Dr. Rajeev Dillon Patient was admitted with complaints of fatigue for several months and found to have bilateral pulmonary infiltrates and mediastinal adenopathy. The pathology report has returned showing chronic interstitial fibrosis and benign reactive lymph node with prominent sinus histiocytes and anthracosis. Patient history/risk factors: Patient has a history of smoking. Clinical Indicators: Fatigue Pathology findings: Showed chronic interstitial fibrosis. Vital Signs: T. 97.1, R. 16, P. 81, BP 101/75 Treatment: Left thoracoscopy, lung biopsy and mediastinal lymph node biopsy. Final results listed above. In your professional opinion, can you please clarify the diagnosis related to the bilateral pulmonary infiltrates and mediastinal adenopathy? Other Unable to determine Please document in your progress notes and discharge summary in order to capture severity of illness and risk of mortality. Include clinical findings that support your diagnosis. FYI: Press F11 to launch patient chart. __x___ Place X here if this finding has no clinical significance, is not applicable or if you are not able to provide any additional documentation. CHARY
--- NOTE | 2016-09-28 18:41 | P.CNPUL ---
History of Present Illness Consult date: 09/21/16 Chief complaint: ILD History of present illness: 66-year-old female patient who underwent a a left thoracoscopy, lung biopsy and mediastinal lymph node biopsy. The surgery was done by Dr. Rajeev Dillon. Estimated blood loss was 100 mL. Postop the patient came into the intensive care unit. The patient currently has a chest tube with no evidence of any air leak and the postop the chest x-ray shows adequate expansion of both lungs without evidence of any pneumothorax. This patient has been having difficulties with shortness of breath and cough and nonproductive sputum. She has a long history of smoking and she carries more than 68-[id number]-[id number] smoking history. She quit smoking and for now she is smoke free. She is also known to have obstructive sleep apnea and she is utilizing his CPAP each is also known to have peripheral vascular disease and has undergone percutaneous revascularization surgery. Currently she is hemodynamically stable. No pain issues. No respiratory difficulties. Incentive spirometer at the bedside. Review of Systems All systems: negative Constitutional: Denies chills, Denies fever Eyes: denies blurred vision, denies pain Ears, nose, mouth and throat: Denies headache, Denies sore throat Cardiovascular: Reports decreased exercise tolerance, Reports dyspnea on exertion, Denies chest pain, Denies shortness of breath Respiratory: Reports cough, Reports dyspnea Gastrointestinal: Denies abdominal pain, Denies diarrhea, Denies nausea, Denies vomiting Genitourinary: Denies dysuria, Denies hematuria Musculoskeletal: Denies myalgias Integumentary: Denies pruritus, Denies rash Neurological: Denies numbness, Denies weakness Psychiatric: Denies anxiety, Denies depression Endocrine: Denies fatigue, Denies weight change Past Medical History Past Medical History: Diabetes Mellitus, Hyperlipidemia, Seizure Disorder, Thyroid Disorder, Vascular Disorder Additional Past Medical History / Comment(s): hx. kidney stones, PVD, takes tegretol for "shaking on left side episodes", recent PET scan History of Any Multi-Drug Resistant Organisms: None Reported Past Surgical History: Appendectomy, Back Surgery, Bladder Surgery, Cholecystectomy, Hysterectomy, Joint Replacement Additional Past Surgical History / Comment(s): bilateral knee replacement, right rotator cuff, iliac femoral stents, bladder suspension x2. 09/21/16 L Thora bx, MS Lymph bx Past Anesthesia/Blood Transfusion Reactions: No Reported Reaction Past Psychological History: Depression Smoking Status: Former smoker Past Alcohol Use History: None Reported Additional Past Alcohol Use History / Comment(s): quit smoking 2016, 1ppd for 50 yrs. Past Drug Use History: None Reported - Past Family History Sister(s) Family Medical History: Cancer Additional Family Medical History / Comment(s): lung cancer Brother(s) Family Medical History: Cancer Additional Family Medical History / Comment(s): lung cancer Medications and Allergies Home Medications Medication Instructions Recorded Confirmed Type Cholecalciferol [Vitamin D3] 1,000 unit PO DAILY 08/15/16 09/21/16 History Clopidogrel [Plavix] 75 mg PO DAILY 08/15/16 09/21/16 History Dipyridamole [Persantine] 25 mg PO DAILY 08/15/16 09/21/16 History Famotidine [Pepcid] 20 mg PO BID PRN 08/15/16 09/21/16 History Glimepiride [Amaryl] 2 mg PO AC-BRKFST 08/15/16 09/21/16 History Ibuprofen [Motrin] 800 mg PO BID 08/15/16 09/21/16 History Levothyroxine Sodium [Synthroid] 25 mcg PO DAILY 08/15/16 09/18/16 History Oxybutynin Chloride [Ditropan] 5 mg PO BID 08/15/16 09/21/16 History Simvastatin [Zocor] 20 mg PO HS 08/15/16 09/21/16 History carBAMazepine [TEGretol] 400 mg PO Q12H 08/15/16 09/21/16 History metFORMIN HCL [Glucophage] 500 mg PO BID 08/15/16 09/21/16 History traZODone HCL [Desyrel] 100 mg PO HS 08/15/16 09/21/16 History Citalopram Hydrobromide 20 mg PO DAILY 09/09/16 09/21/16 History [Citalopram HBr] Allergies Allergy/AdvReac Type Severity Reaction Status Date / Time erythromycin base Allergy Rash/Hives Verified 09/21/16 06:35 Fish Containing Products Allergy Anaphylaxis Verified 09/21/16 06:35 Penicillins Allergy Swelling Verified 09/21/16 06:35 shellfish derived [Shellfish] Allergy Anaphylaxis Verified 09/21/16 06:35 Physical Exam Vitals: Vital Signs Temp Pulse Pulse Pulse Resp BP BP 09/21/16 18:00 92 28 H 09/21/16 17:00 80 15 101/75 09/21/16 16:30 98.2 F 75 101/75 09/21/16 16:25 81 09/21/16 16:00 20 09/21/16 15:00 81 16 146/71 09/21/16 14:00 85 16 150/72 09/21/16 13:30 85 16 134/65 09/21/16 13:00 89 16 124/58 09/21/16 12:30 83 16 124/58 09/21/16 12:15 85 16 133/61 09/21/16 12:00 79 16 121/60 09/21/16 11:45 77 16 135/64 09/21/16 11:30 84 16 130/62 09/21/16 11:17 75 16 131/62 09/21/16 10:58 78 16 146/66 09/21/16 10:43 78 16 158/67 09/21/16 10:26 79 16 162/70 09/21/16 10:11 81 16 168/74 09/21/16 09:55 98.2 F 95 14 189/84 09/21/16 06:49 97.1 F L 74 16 09/21/16 06:23 16 BP Pulse Ox 09/21/16 18:00 09/21/16 17:00 95 09/21/16 16:30 09/21/16 16:25 09/21/16 16:00 09/21/16 15:00 94 L 09/21/16 14:00 96 09/21/16 13:30 96 09/21/16 13:00 100 09/21/16 12:30 96 09/21/16 12:15 99 09/21/16 12:00 96 09/21/16 11:45 97 09/21/16 11:30 95 09/21/16 11:17 95 09/21/16 10:58 95 09/21/16 10:43 100 09/21/16 10:26 96 09/21/16 10:11 95 09/21/16 09:55 92 L 09/21/16 06:49 150/66 98 09/21/16 06:23 Intake and Output 09/21/16 09/21/1617 06:59 14:59 22:59 Intake Total 200 1500 350 Output Total 300 Balance 200 1200 350 Intake: IV 200 1500 350 Output: Urine 200 Estimated Blood Loss 100 Other: Voiding Method Toilet Head exam was generally normal. There was no scleral icterus or corneal arcus. Mucous membranes were moist.Neck was supple and without jugular venous distension, thyromegaly, or carotid bruits. Carotids were easily palpable bilaterally. There was no adenopathy. Lung sounds are diminished in lung bases bilaterally along with some bibasilar crackles and the patient has a chest tube on the left. Incision and surgical wound sites are all clean and intact.Cardiac exam revealed the PMI to be normally situated and sized. The rhythm was regular and no extrasystoles were noted during several minutes of auscultation. The first and second heart sounds were normal and physiologic splitting of the second heart sound was noted. There were no murmurs, rubs, clicks, or gallops. Abdominal exam revealed normal bowel sounds. The abdomen was soft, non-tender, and without masses, organomegaly, or appreciable enlargement of the abdominal aorta.Examination of the extremities revealed easily palpable radial, femoral and pedal pulses. There was no cyanosis, clubbing or edema. Results - Laboratory Findings CBC and BMP: 09/22/16 04:04 09/22/16 04:04 Abnormal lab findings: Abnormal Labs 09/21/16 09/21/16 09/21/16 06:43 10:24 16:20 POC Glucose (mg/dL) 123 H 156 H 142 H - Diagnostic Findings Chest x-ray: image reviewed Assessment and Plan Plan: Assessment 1 interstitial lung disease with borderline mediastinal lymphadenopathy, status post thoracoscopy, lung biopsy, mediastinal lymph node biopsy, patient is postop day #0. 2 postsurgical left-sided chest tube 3 obstructive sleep apnea maintained on CPAP on outpatient basis 4 peripheral vascular disease 5 diabetes mellitus 6 obesity 7 degenerative arthritis 8 GERD 9 hyperlipidemia Plan Provide the patient incentive spirometer. The patient is already doing 1500 on that IS. Monitor the output from the chest tube. Would prefer for this patient to bring her own CPAP machine from home. Resume all of her outpatient medications. Sliding scale insulin coverage for blood sugar control. Advance diet as tolerated. Pain control. Subcu heparin for DVT prophylaxis. We'll continue to follow.
== END 2016-09-22 14:44 | disposition home or self-care (01) | DRG 803 ==
LOC: 2ORMAIN 06:00 → EDSTATUS 08:00 → 6SEL 09:43 → 2ORMAIN 09:43 → 6ICU 15:36
PROVIDERS: ADMIT Thoracic Surgery (Cardiothoracic Vascular Surgery); ATTEND Thoracic Surgery (Cardiothoracic Vascular Surgery)
PROC: 0BBG4ZX Excision of Left Upper Lung Lobe, Percutaneous Endoscopic Approach, Diagnostic (ICD-10-PCS; 2016-09-21)
PROC: 07B74ZX Excision of Thorax Lymphatic, Percutaneous Endoscopic Approach, Diagnostic (ICD-10-PCS; 2016-09-21)
PROC: 0BBJ4ZX Excision of Left Lower Lung Lobe, Percutaneous Endoscopic Approach, Diagnostic (ICD-10-PCS; principal; 2016-09-21 08:00)
DX: R59.0 Localized enlarged lymph nodes (principal); J84.9 Interstitial pulmonary disease, unspecified; E11.51 Type 2 diabetes mellitus with diabetic peripheral angiopathy without gangrene; R53.83 Other fatigue; E03.9 Hypothyroidism, unspecified; E66.9 Obesity, unspecified; E78.00 Pure hypercholesterolemia, unspecified; E78.5 Hyperlipidemia, unspecified; G47.33 Obstructive sleep apnea (adult) (pediatric); I25.10 Atherosclerotic heart disease of native coronary artery without angina pectoris; K21.9 Gastro-esophageal reflux disease without esophagitis; M19.90 Unspecified osteoarthritis, unspecified site; R91.8 Other nonspecific abnormal finding of lung field; Z79.02 Long term (current) use of antithrombotics/antiplatelets; Z87.891 Personal history of nicotine dependence; Z68.30 Body mass index [BMI] 30.0-30.9, adult
CPT/HCPCS: 71010; 71020; 80048; 83036; 85025; 87070; 87075; 87102; 87116; 87205; 87206; 88305; 88307; 94640

== ENCOUNTER → 2016-10-22 | Outpatient (CLI) | payer MEDICARE, OTHER ==
[2016-10-22 17:26] LABS: Blood Urea Nitrogen 25 mg/dL (7-17); Non-African American GFR(MDRD) >60 (>60 ml/min/1.73 sqM)
--- NOTE | 2016-10-22 18:56 | CT ---
EXAMINATION TYPE: CT abdomen pelvis w con DATE OF EXAM: 10/22/2016 COMPARISON: NONE HISTORY: Squamos cell CA in pelvis. CT DLP: 1635 mGycm Automated exposure control for dose reduction was used. TECHNIQUE: Helical acquisition of images was performed from the lung bases through the pelvis. CONTRAST: Performed with Oral Contrast and with IV Contrast, patient injected with 100 mL of Omnipaque 300. FINDINGS: There are interstitial patchy infiltrates at the lung bases probably due to pulmonary fibrosis. There is no pleural effusion. Abdominal aorta is atheromatous. The liver spleen pancreas appear normal. Th ere are clips from cholecystectomy. Bile ducts are not dilated. There is no adrenal mass. Kidneys show satisfactory contrast opacification. There is no hydronephrosi s. There is a possible 2 mm calcification in the upper pole left kidney. There is mild aneurysm of th e lower abdominal aorta that measures up to 3 cm. There is aortoiliac stent noted. There is no retroperitoneal adenopathy. There is no ascites. I see no intestinal wall thickening. The re are no dilated loops. Appendix is not seen. There is no sign of appendicitis. There is a 1 cm earl ical cyst on the upper pole left kidney. There is metal artifact from posterior fusion surgery at L4- L5. There is 15% anterior wedging of L2 vertebral body. IMPRESSION: FIBROTIC CHANGES AT THE LUNG BASES. ATHEROSCLEROTIC VASCULAR DISEASE. MILD ANEURYSM OF LOWER ABDOMINAL AORTA. NONOBSTRUCTING SMALL CALCULUS UPPER POLE LEFT KIDNEY. L2 COMPRESSION FRACTURE OF UNCERTAIN AGE.
== END | disposition home or self-care (01) ==
LOC: RADCTMAIN 16:46
PROVIDERS: ATTEND Internal Medicine Critical Care Medicine
DX: C96.9 Malignant neoplasm of lymphoid, hematopoietic and related tissue, unspecified (principal); N20.0 Calculus of kidney; I70.90 Unspecified atherosclerosis; I71.4 Abdominal aortic aneurysm, without rupture; Z88.1 Allergy status to other antibiotic agents; Z88.0 Allergy status to penicillin
CPT/HCPCS: 82565; 84520; 74177; 36415; Q9967

== ENCOUNTER → 2016-10-27 | Day surgery (SDC) | payer MEDICARE, OTHER ==
[2016-10-23 15:52] VITALS: BMI 36.1
[~2016-10-27] MED LIST changes: -DEXAMETHASONE SOD PHOSPHATE 10 MG/ML 1 ML VIAL IV ONE; +LACTATED RINGERS 1,000 ML IV ONE; -LIDOCAINE 1% 20 ML VIAL (10MG/ML) FOR IV START INTRADERMA PRN; +LIDOCAINE 1% INJ 10MG/ML (20 ML MDV) ONE; -ONDANSETRON 4 MG/2 ML VIAL IVP ONE; +PROPOFOL 10 MG/ML 20 ML VIAL IV ONE; -Pre Op ABX Message 1 EACH MISC MISCELLANE ONE; -SCOPOLAMINE 1.5MG/72HR PATCH TRANSDERM ONE
[2016-10-27 07:28] VITALS: TEMP 97.7
[2016-10-27 07:33] LABS: Glucose,Whole Blood 135 mg/dL (75-99)
[2016-10-27 08:48] VITALS: RESP 20
--- NOTE | 2016-10-27 08:52 | P.PCN ---
Date of Procedure: 10/27/16 Preoperative Diagnosis: Postoperative Diagnosis: Procedure(s) Performed: Procedure: Esophagogastroduodenoscopy and biopsy. Preoperative diagnosis: Metastatic disease of unknown primary. Postoperative diagnosis: Mild gastritis and duodenitis. Preparation and sedation: Was provided by anesthesia. Brief clinical history: The patient is a 66-year-old female who is referred for this evaluation because of metastatic disease noted in her right groin with no identified primary site. She had a colonoscopy in December 2014. Other workup included CT scan and PET scan. This evaluation is to assess for an upper GI pathology. Procedure: With the patient on her left lateral decubitus position and after informed consent and adequate sedation, I passed the Olympus-GIF 160 video upper endoscope through the cricopharyngeus down the esophagus. The esophagus appeared normal. GE junction was around 40-41 cm from the incisors and there was no definite hiatal hernia. The endoscope was then passed into the stomach which was insufflated with air and inspected in detail including the retroflex view in the cardia. There was minimal mottling and erythema in the antrum but no ulcers or erosions. Pyloric channel did not show any ulcers. Duodenal bulb , post bulbar area and descending duodenum showed minimal erythema. I obtained biopsies from the antrum then the endoscope was withdrawn. The patient tolerated the procedure well. Plan: The patient was reassured. She has an appointment with oncology this week. Further plans will be made accordingly. Implants: Indications for Procedure: Operative Findings: Description of Procedure:
[2016-10-27 09:16] VITALS: BP 153/77; PULSE 68
== END ==
LOC: ORWHC2ENDO 06:34
DX: K29.50 Unspecified chronic gastritis without bleeding (principal); K29.80 Duodenitis without bleeding; C79.89 Secondary malignant neoplasm of other specified sites; E78.5 Hyperlipidemia, unspecified; G47.33 Obstructive sleep apnea (adult) (pediatric); Z99.89 Dependence on other enabling machines and devices; Z87.891 Personal history of nicotine dependence; E11.9 Type 2 diabetes mellitus without complications; Z79.84 Long term (current) use of oral hypoglycemic drugs; E07.9 Disorder of thyroid, unspecified; R56.9 Unspecified convulsions; Z79.02 Long term (current) use of antithrombotics/antiplatelets; Z79.1 Long term (current) use of non-steroidal anti-inflammatories (NSAID); Z79.891 Long term (current) use of opiate analgesic; Z79.52 Long term (current) use of systemic steroids; Z79.899 Other long term (current) drug therapy; Z88.1 Allergy status to other antibiotic agents; Z88.0 Allergy status to penicillin; Z91.013 Allergy to seafood
CPT/HCPCS: 88305; 88342; 43239; J2001; J2704

== ENCOUNTER 2016-11-06 07:33 | Day surgery (SDC) | payer MEDICARE, OTHER ==
[2016-11-03 10:32] VITALS: BMI 37.4
[~2016-11-06 07:33] MED LIST changes: -LACTATED RINGERS 1,000 ML IV ONE; -LIDOCAINE 1% INJ 10MG/ML (20 ML MDV) ONE; -PROPOFOL 10 MG/ML 20 ML VIAL IV ONE
[2016-11-06] MEDS ORDERED: LIDOCAINE 1% 20 ML VIAL (10MG/ML) FOR IV START INTRADERMA ONE (07:43)
[2016-11-06 07:47] VITALS: RESP 18; TEMP 97.6
[2016-11-06] MEDS ORDERED: LACTATED RINGERS 1,000 ML IV ONE (07:48)
[2016-11-06 07:58] LABS: Glucose,Whole Blood 110 mg/dL (75-99)
[2016-11-06] MEDS ORDERED: LIDOCAINE 1% INJ 10MG/ML (20 ML MDV) ONE (08:17)
[2016-11-06] MEDS ORDERED: ONDANSETRON 4 MG/2 ML VIAL ONE (08:17)
[2016-11-06] MEDS ORDERED: PROPOFOL 10 MG/ML 20 ML VIAL IV ONE (08:17)
--- NOTE | 2016-11-06 09:14 | P.PCN ---
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 She presented with inguinal lymph node enlargement and biopsy revealed metastatic squamous cell carcinoma. She underwent an upper endoscopy a week ago which was unremarkable. She isn't scheduled for colonoscopy to evaluate further. She does complain of occasional rectal bleeding. PROCEDURE PERFORMED: Colonoscopy and biopsy. PREOPERATIVE DIAGNOSIS: Metastatic squamous cell carcinoma with unknown primary. IV sedation per Anesthesia. PROCEDURE: After informed consent was obtained, the patient, was brought into the endoscopy unit. IV sedation was administered by Anesthesia under continuous monitoring. Digital rectal examination revealed a hard anal mass. Initially the Olympus CF-160 flexible video colonoscope was then inserted in the rectum, gradually advanced into the cecum without any difficulty. Careful examination was performed as the scope was gradually being withdrawn. Ileocecal valve and the appendiceal orifice were visualized and appeared normal. Prep was extremely poor and several areas of the colon that precluded adequate visualization despite thorough irrigation. The visualized portions of the cecum , ascending colon, transverse colon, descending colon, sigmoid colon, and rectum appeared normal. Retroflexion was performed in the rectum and and ulcerated anal mass was identified. Multiple biopsies were done from the anal mass. The patient tolerated the procedure well. IMPRESSION: 1. Semicircumferential ulcerated anal mass, status post multiple biopsies. 2. Rest of the colon appeared normal, however the prep was extremely poor throughout the colon RECOMMENDATIONS: Findings of this examination were discussed with the patient as well as a family. She was advised to follow with the biopsy results. She will follow with as scheduled. . Implants: Indications for Procedure: Operative Findings: Description of Procedure:
[2016-11-06 09:25] VITALS: BP 130/62; PULSE 76
== END 2016-11-06 09:37 | disposition home or self-care (01) ==
LOC: ORWHC2ENDO 07:33
PROVIDERS: ATTEND Internal Medicine Gastroenterology
DX: C21.0 Malignant neoplasm of anus, unspecified (principal); C77.4 Secondary and unspecified malignant neoplasm of inguinal and lower limb lymph nodes; I49.9 Cardiac arrhythmia, unspecified; I73.9 Peripheral vascular disease, unspecified; E11.9 Type 2 diabetes mellitus without complications; E07.9 Disorder of thyroid, unspecified; R56.9 Unspecified convulsions; Z79.84 Long term (current) use of oral hypoglycemic drugs; Z79.02 Long term (current) use of antithrombotics/antiplatelets; Z79.82 Long term (current) use of aspirin; Z79.899 Other long term (current) drug therapy; Z88.1 Allergy status to other antibiotic agents; Z88.0 Allergy status to penicillin; Z91.09 Other allergy status, other than to drugs and biological substances; Z87.891 Personal history of nicotine dependence
CPT/HCPCS: 88305; 88342; 88341; 45380; J2405; J2001; J2704

== ENCOUNTER 2016-11-11 07:48 | Day surgery (SDC) | payer MEDICARE, OTHER ==
[2016-11-09 15:55] VITALS: BMI 37.4
[~2016-11-11 07:48] MED LIST changes: +CLINDAMYCIN 900 MG in DEXTROSE 5% IN WATER 50 ML IVPB ONE; +DEXAMETHASONE SOD PHOSPHATE 10 MG/ML 1 ML VIAL IV ONE; +HYDROmorphone 1 MG/ML 1 ML SYRINGE IVP PRN; +LIDOCAINE 1% 20 ML VIAL (10MG/ML) FOR IV START INTRADERMA PRN; +MIDAZOLAM 2 MG/2 ML VIAL IV PRN; +ONDANSETRON 4 MG/2 ML VIAL IVP ONE; +SCOPOLAMINE 1.5MG/72HR PATCH TRANSDERM ONE
[2016-11-11 08:16] VITALS: TEMP 97.5
[2016-11-11 08:28] LABS: Glucose,Whole Blood 138 mg/dL (75-99)
[2016-11-11] MEDS ORDERED: BUPIVACAIN-EPI 0.25%-1:200,000 30 ML VIAL SQ ONE (08:51)
[2016-11-11] MEDS ORDERED: HEPARIN SODIUM,PORCINE 100 UNIT/ML 5 ML VIAL IV ONE ×2 (08:51)
[2016-11-11] MEDS ORDERED: MIDAZOLAM 2 MG/2 ML VIAL ONE (09:15)
[2016-11-11] MEDS ORDERED: fentaNYL (PF) 50 MCG/ML 2 ML AMP ONE (09:15)
[2016-11-11] MEDS ORDERED: LIDOCAINE 1% INJ 10MG/ML (20 ML MDV) ONE (09:15)
[2016-11-11] MEDS ORDERED: PROPOFOL 10 MG/ML 20 ML VIAL IV ONE (09:15)
--- NOTE | 2016-11-11 10:04 | FL ---
Fluoroscopy History: PORT A CATH INSERT W/DR WYATT portacath insert under fluoro. 3 secs fluoro and 1 paper images
--- NOTE | 2016-11-11 10:08 | P.OP ---
Date of Procedure: 11/11/16 Preoperative Diagnosis: Squamous cell cancer of anal region Postoperative Diagnosis: Same Procedure(s) Performed: Right internal jugular Mediport placement under fluoroscopic and SonoSite guidance Implants: PowerPort Ref [id number] 8 [place] Date : 2018-05-19 Anesthesia: MAC Surgeon: Jmamie Rosales Pathology: none sent Condition: stable Disposition: PACU Indications for Procedure: 66 years old female presents for Mediport placement. She has newly diagnosed anal squamous cell cancer. Informed consent obtained and she elected to undergo right internal jugular Mediport placement under fluoroscopic and SonoSite guidance. Operative Findings: Postprocedure x-ray did not show any pneumothorax. Catheter tip in SVC. Description of Procedure: The patient was brought to the operating room and placed in supine position with both arms tucked. A footboard was placed. Chlorhexidine was used to prep the neck followed by application of sterile drapes and an [place] dressing . A timeout was performed to verify correct patient and correct procedure. Patient was confirmed to receive perioperative IV antibiotics and VTE prophylaxis. An ultrasound was performed of the right neck to identify the carotid artery and internal jugular vein. The internal jugular vein was compressible and patent . Photodocumentation was made. Local anesthetic was infiltrated to create a field block. Seldinger technique was used and the internal jugular vein was accessed under direct ultrasound guidance. There was good backflow of dark venous blood. The guidewire was inserted and fluoroscopic images obtained to confirm the tip in SVC. The needle was removed followed by insertion of a dilator peel-away sheath. Local anesthetic was infiltrated along the inferior aspect of the right clavicle. A 2.5 cm skin incision was made and dissection was carried up to the pectoralis major muscle. A pocket was created for the port. The catheter tubing was connected to the port using the conector after flushing both the port and the catheter with normal saline. The tunneling device was connected to the end of the catheter and after placement of the port in the subcutaneous pocket the tunneling device was passed from the lower incision to the counter incision in the neck. The catheter was measured at the junction of SVC and right atrium. The inner cannula of the peel-away sheath was removed and catheter was gradually inserted. The peel-away sheath was gradually removed. Fluoroscopic image confirmed the tip of the catheter at the junction of SVC and right atrium. There was no kink, fold or torsion of the catheter and the port. The Jay needle was used to access the port and easy backflow was obtained. This was flushed with 10 mL of normal saline and 10 mL of Hep-Lock was inserted. The skin incision was closed in 3 layers using 3-0 Vicryl interrupted stitches and a running suture of 4-0 Monocryl. Counter incision in the neck was also closed using 3-0 Vicryl followed by 4-0 Monocryl. Dermabond skin glue was applied followed by Telfa and Tegaderm dressing. The sponge, instrument and needle count were correct x2 Patient tolerated the procedure well and was taken to post anesthesia care unit in stable condition Final chest x-ray showed the tip of the catheter in SVC and no pneumothorax. Total fluoroscopic time was 3 seconds
[2016-11-11 10:22] VITALS: RESP 18
--- NOTE | 2016-11-11 10:36 | XR ---
EXAMINATION TYPE: XR chest 1V confirm line [facility] DATE OF EXAM: 11/11/2016 HISTORY: Shortness of breath. COMPARISON: 09/22/2016 TECHNIQUE: Single view of the chest is submitted. FINDINGS: Right-sided Mediport catheter is noted in place with its distal tip overlying the SVC. There is no ev idence for pneumothorax. Demonstrated are scattered senescent parenchymal change. There is no evidence for focal infiltrate. The heart is stable. Hilar and mediastinal structures are within normal limits. Degenerative changes are seen of the dorsal spine. IMPRESSION: 1. No evidence for pneumothorax status post Mediport catheter placement.
[2016-11-11 10:39] VITALS: BP 109/58; PULSE 77
== END 2016-11-11 10:48 | disposition home or self-care (01) ==
LOC: OR 07:48
PROVIDERS: ATTEND Surgery
DX: C21.0 Malignant neoplasm of anus, unspecified (principal); Z87.891 Personal history of nicotine dependence; E11.9 Type 2 diabetes mellitus without complications; Z79.84 Long term (current) use of oral hypoglycemic drugs; E78.5 Hyperlipidemia, unspecified; F39 Unspecified mood [affective] disorder; E07.9 Disorder of thyroid, unspecified; G40.909 Epilepsy, unspecified, not intractable, without status epilepticus; Z79.02 Long term (current) use of antithrombotics/antiplatelets; Z79.1 Long term (current) use of non-steroidal anti-inflammatories (NSAID); Z79.52 Long term (current) use of systemic steroids; Z79.899 Other long term (current) drug therapy; Z88.1 Allergy status to other antibiotic agents; Z88.0 Allergy status to penicillin; Z91.013 Allergy to seafood
CPT/HCPCS: 77001; 36561; 76937; C1788; J2250; J1642; J2405; J2001; J3010; J2704

== ENCOUNTER → 2017-01-02 | Outpatient (CLI) | payer MEDICARE, OTHER ==
--- NOTE | 2017-01-04 06:18 | PE ---
EXAMINATION TYPE: PET CT fusion skull to thigh DATE OF EXAM: 01/02/2017 COMPARISON: CT abdomen pelvis dated 10/22/2016. PET/CT dated 08/15/2016 HISTORY: Anal carcinoma. Staging examination. TECHNIQUE: Following the intravenous administration of 14.97 mCi of F-18 FDG, whole body images are performed from the skull base to the midthigh. Images are reviewed on the computer in the coronal, a xial, and sagittal planes. Reconstructed rotating images are created on independent workstation and reviewed on the computer. A localization and attenuation correction CT is performed in conjunction with the PET scan. FINDINGS: SKULL BASE AND NECK: No evidence of hypermetabolic uptake. CHEST, MEDIASTINUM, AND HILAR REGION: Mediastinal background measures a maximum SUV of 2.0. No enlarg ed mediastinal nodes are present. The largest right paratracheal lymph node measures 9 mm in short ax is multiple nonenlarged prevascular lymph nodes as well as a prominent subcarinal lymph node is seen. Geographic interseptal lobular thickening and groundglass opacities with a gradient effect with the greatest confluence in the lower lungs and are similar to the prior exams. Again variable FDG activit y seen within maximal SUV of 1.58. No discrete pulmonary nodule or mass is identified, however evalua tion is slightly limited given the groundglass opacities. ABDOMEN AND PELVIS: Abdominal background measures a maximum SUV of 3.93. Hepatic activity appears sim ilar to the prior exam. The previously seen moderate FDG uptake along the gastric antrum is no longer evident and thought to previously represent physiologic muscular activity. Bowel activity is also pr esumed to be physiologic. Splenic uptake is thought to be partially related to misregistration from a djacent colonic loops is no focal splenic lesion is seen. Physiologic excretion is noted within the r enal collecting systems and urinary bladder. The previously seen enlarged and hypermetabolic left inguinal lymph node demonstrates a complete resp onse to treatment with size of 7 mm in short axis and previously measuring 1.6 cm in short axis on th e exam of 08/15/2016. No hypermetabolic uptake is seen within this lymph node (maximum SUV of 1.08) or other superficial inguinal lymph nodes. Along the anal verge there is near circumferential but a right eccentric mucosal thickening/mucosal m ass measuring at least 2.7 x 3.9 cm with a max SUV of 4.5. No rectal sutures are seen and therefore t his is thought to represent the primary known squamous cell carcinoma of the rectum. This extends rubin roximately 2.0 cm in craniocaudal dimension. Mesorectal fat appears unremarkable. No perirectal adeno caitlyn or fascial thickening. OSSEOUS STRUCTURES: Degenerative changes of the femoral acetabular joints. Pedicular screws and fixat ion rods are seen of the lumbar spine with lumbar laminectomy. Mild degenerative changes of the visua lized thoracolumbar spine are appreciated. No hypermetabolic uptake. OTHER CT: Left carotid bulb and common carotid artery calcifications are noted. Visualized paranasal sinuses re main clear. Right-sided Mediport is present with its distal tip terminating in the superior vena cava/right atria l junction. Moderate three-vessel coronary artery calcifications are appreciated as well as mild calc ific atheromatous changes of the thoracic aorta and abdominal aorta. Infrarenal abdominal aorta is present measuring 3.3 x 3.0 cm with aortoiliac stent noted distally. Cholecystectomy clips are present. Bilateral common iliac stents are also seen. No mesenteric or retr operitoneal adenopathy. Uterus is surgically absent. There is a punctate nonobstructing 2 mm left upp er pole renal calculus. IMPRESSION: 1. Right eccentric but near circumferential wall thickening/mass along the anal verge thought to repr esent the patient's known primary squamous cell carcinoma as no postoperative changes are appreciated . 2. Complete response to treatment of the previously enlarged and hypermetabolic superficial left ingu inal lymph node with no current hypermetabolic uptake or enlargement. (Current size of 0.7 cm and pre vious size of 1.6 cm). 3. Minimally increasing aneurysmal dilatation of the infrarenal abdominal aorta measuring up to 3.3 x 3.0 cm and previously measuring 3.0 cm on the exam of 10/22/2016. 4. Redemonstration of overall similar geographic groundglass opacities and interseptal lobular thicke merlin. Maximum FDG activity is not above mediastinal uptake and again inflammatory process is consider ed most likely. Estimated on the prior exam potential etiologies are NSIP and hypersensitivity of the pneumonitis.
== END | disposition home or self-care (01) ==
LOC: RADPETMAIN 09:27
PROVIDERS: ATTEND Internal Medicine Hematology & Oncology
DX: C21.1 Malignant neoplasm of anal canal (principal); I71.4 Abdominal aortic aneurysm, without rupture; R59.0 Localized enlarged lymph nodes
CPT/HCPCS: 78815; A9552

== ENCOUNTER 2017-01-11 08:07 | Day surgery (SDC) | payer MEDICARE, OTHER ==
[2017-01-08 13:05] VITALS: BMI 34.0
[~2017-01-11 08:07] MED LIST changes: -CLINDAMYCIN 900 MG in DEXTROSE 5% IN WATER 50 ML IVPB ONE; -DEXAMETHASONE SOD PHOSPHATE 10 MG/ML 1 ML VIAL IV ONE; -HYDROmorphone 1 MG/ML 1 ML SYRINGE IVP PRN; -MIDAZOLAM 2 MG/2 ML VIAL IV PRN; -ONDANSETRON 4 MG/2 ML VIAL IVP ONE; -SCOPOLAMINE 1.5MG/72HR PATCH TRANSDERM ONE
[2017-01-11 08:31] VITALS: RESP 16; TEMP 98.1
[2017-01-11 08:34] LABS: Glucose,Whole Blood 145 mg/dL (75-99)
[2017-01-11] MEDS ORDERED: PROPOFOL 10 MG/ML 20 ML VIAL IV ONE (09:04)
[2017-01-11] MEDS ORDERED: LIDOCAINE 1% INJ 10MG/ML (20 ML MDV) ONE (09:04)
--- NOTE | 2017-01-11 09:37 | P.PCN ---
Date of Procedure: 01/11/17 Procedure(s) Performed: Procedure: Flexible sigmoidoscopy and biopsy. Preoperative diagnosis: History of anal cancer status post chemotherapy. Postoperative diagnosis: No obvious residual cancer noted biopsies obtained in the ano-rectal junction area. Preparation: Sigmoidoscopy prep. Sedation: Was provided by anesthesia. Brief clinical history: The patient is a 67-year-old female who was diagnosed with squamous cell carcinoma of the anus in October of this year. She presented with metastatic disease in the lymph nodes in the groin at that time. The patient completed 2 cycles of chemotherapy. Recent PET scan was negative and she is scheduled for evaluation by radiation oncology. She is referred for this evaluation is to assess for any residual cancer Procedure: With the patient on her left lateral decubitus position and after informed consent and adequate sedation, the perianal area was inspected and it did not show any fissures or fistulas. There were no masses felt on digital rectal examination. The Olympus CF-140 S flexible sigmoidoscope was used and was inserted in the rectum in the usual fashion and advanced to the proximal sigmoid. No obvious abnormalities were noted in the sigmoid or in the rectum. No residual anal mass could be seen. I retroflexed the endoscope in the rectum before the endoscope was withdrawn. There was minimal friability in the anorectal junction area. I obtained couple biopsies in that area before the endoscope was withdrawn. The patient tolerated the procedure well. Plan: The patient was reassured. She will follow-up with you as planned and further plans will be made earlier protocol.
[2017-01-11 09:52] VITALS: BP 109/54; PULSE 67
== END 2017-01-11 10:00 | disposition home or self-care (01) ==
LOC: ORWHC2ENDO 08:07
DX: Z08 Encounter for follow-up examination after completed treatment for malignant neoplasm (principal); Z92.21 Personal history of antineoplastic chemotherapy; C21.0 Malignant neoplasm of anus, unspecified; C77.4 Secondary and unspecified malignant neoplasm of inguinal and lower limb lymph nodes; E11.9 Type 2 diabetes mellitus without complications; Z79.84 Long term (current) use of oral hypoglycemic drugs; G40.909 Epilepsy, unspecified, not intractable, without status epilepticus; E78.5 Hyperlipidemia, unspecified; Z87.891 Personal history of nicotine dependence; Z79.02 Long term (current) use of antithrombotics/antiplatelets; Z79.1 Long term (current) use of non-steroidal anti-inflammatories (NSAID); Z79.52 Long term (current) use of systemic steroids; Z79.899 Other long term (current) drug therapy; Z88.1 Allergy status to other antibiotic agents; Z88.0 Allergy status to penicillin; Z91.013 Allergy to seafood
CPT/HCPCS: 88305; 45331; J2001; J2704

== ENCOUNTER 2017-04-14 16:38 | Observation (INO) | payer MEDICARE, OTHER ==
[2017-04-14] MEDS ORDERED: ONDANSETRON 4 MG/2 ML VIAL IVP STA (17:06)
--- NOTE | 2017-04-14 17:11 | ED ---
General Adult HPI - General Stated complaint: VOMITING, POSS BLOOD IN VOMIT Time Seen by Provider: 04/14/17 16:40 Source: RN notes reviewed - History of Present Illness Initial comments: This is a 67-year-old female presents emergency department with past medical history significant for anal cancer in August. Patient also has diabetes. Patient is in a senior living at this time for rehabilitation from a back injury. Patient comes in today because she states anytime she eats or drinks anything over the last 2 weeks she vomits. Patient denies any diarrhea. Patient states she typically gets a little right lower quadrant pain and then vomits. Patient states the pain is inconsistent throughout the day but when it comes on she typically gets nauseated and vomits. Patient states she also vomits anytime she eats or drinks anything. Patient denies any fever or chills per patient denies chest pain difficulty breathing or shortness of breath. Patient denies any recent cough. Patient denies being lightheaded or dizzy. Patient states she does have back pain but that is been consistent since she had her injury. - Related Data Home Medications Medication Instructions Recorded Confirmed Clopidogrel [Plavix] 75 mg PO HS 08/15/16 04/14/17 Dipyridamole [Persantine] 50 mg PO TID 08/15/16 04/14/17 Famotidine [Pepcid] 20 mg PO BID PRN 08/15/16 04/14/17 Glimepiride [Amaryl] 2 mg PO AC-[id number] 08/15/16 04/14/17 Levothyroxine Sodium [Synthroid] 25 mcg PO DAILY 08/15/16 04/14/17 Oxybutynin Chloride [Ditropan] 5 mg PO BID 08/15/16 04/14/17 Simvastatin [Zocor] 20 mg PO HS 08/15/16 04/14/17 predniSONE 20 mg PO DAILY 10/23/16 04/14/17 acetaZOLAMIDE [Diamox] 250 mg PO TID@0900,1300,1700 01/08/17 04/14/17 Baclofen [Lioresal] 10 mg PO DAILY PRN 04/14/17 04/14/17 Bisacodyl 10 mg RECTAL DAILY PRN 04/14/17 04/14/17 Citalopram Hydrobromide [CeleXA] 20 mg PO DAILY 04/14/17 04/14/17 HYDROcodone/APAP 5-325MG [[place] 1 tab PO Q6HR PRN 04/14/17 04/14/17 5-325] Lidocaine 4% Cream [Lmx 4] 1 applic TOPICAL TID 04/14/17 04/14/17 Magnesium Oxide [Mag-Ox] 400 mg PO HS 04/14/17 04/14/17 Mylanta Susp 400-400-40/5ml 30 ml PO Q4HR PRN 04/14/17 04/14/17 Promethazine HCl 12.5 mg PO Q8HR PRN 04/14/17 04/14/17 Sennosides [Senna] 8.6 mg PO HS PRN 04/14/17 04/14/17 Sulfamethox-Tmp 800-160Mg [Bactrim 1 tab PO BID 04/14/17 04/14/17 DS 800-160 mg] Previous Rx's Medication Instructions Recorded Polyethylene Glycol 3350 [Miralax] 17 gm PO HS powd.pack 03/31/17 carBAMazepine [TEGretol XR] 200 mg PO BID tab.er.12h 03/31/17 metFORMIN HCL [Glucophage] 500 mg PO BID #0 03/31/17 Allergies Allergy/AdvReac Type Severity Reaction Status Date / Time iodine Allergy Unknown SHELL FISH Verified 04/14/17 16:59 ALLERGY erythromycin base Allergy Rash/Hives Verified 04/14/17 16:59 Fish Containing Products Allergy Anaphylaxis Verified 04/14/17 16:59 Penicillins Allergy Swelling Verified 04/14/17 16:59 shellfish derived [Shellfish] Allergy Anaphylaxis Verified 04/14/17 16:59 Review of Systems ROS Statement: Those systems with pertinent positive or pertinent negative responses have been documented in the HPI. ROS Other: All systems not noted in ROS Statement are negative. Past Medical History Past Medical History: Diabetes Mellitus, Hyperlipidemia, Thyroid Disorder, Vascular Disorder Additional Past Medical History / Comment(s): Dx Anal Ca-had 2 cycles of chemo last chemo and radiationNov 2016, hx. kidney stones, PVD, takes tegretol for "mild tremor on left side episodes"- STATES TOLD IT WAS NOT SEIZURES -SHAKING LASTS A COUPLE SECONDS AND IS GONE. History of Any Multi-Drug Resistant Organisms: None Reported Past Surgical History: Appendectomy, Back Surgery, Bladder Surgery, Cholecystectomy, Hysterectomy, Joint Replacement Additional Past Surgical History / Comment(s): bilateral knee replacement, right rotator cuff, iliac femoral stents, bladder suspension x2,rt mediport. 09/21/16 Left lung bx, Lymphnode bx left groin Past Anesthesia/Blood Transfusion Reactions: No Reported Reaction Additional Past Anesthesia/Blood Transfusion Reaction / Comment(s): claustrophobic Past Psychological History: Anxiety, Depression Smoking Status: Former smoker Past Alcohol Use History: None Reported Additional Past Alcohol Use History / Comment(s): QUIT SMOKING MAY 2016. SMOKED 1 PPD FOR 50 YEARS. Past Drug Use History: None Reported - Past Family History Sister(s) Family Medical History: Cancer Additional Family Medical History / Comment(s): lung cancer Brother(s) Family Medical History: Cancer Additional Family Medical History / Comment(s): lung cancer General Exam - General Exam Comments Initial Comments: GENERAL: Patient is well-developed and well-nourished. Patient is nontoxic and well- hydrated and is mild distress. ENT: Neck is soft and supple. No significant lymphadenopathy is noted. Oropharynx is clear. Moist mucous membranes. Neck has full range of motion without eliciting any pain. EYES: The sclera were anicteric and conjunctiva were pink and moist. Extraocular movements were intact and pupils were equal round and reactive to light. Eyelids were unremarkable. PULMONARY: Unlabored respirations. Good breath sounds bilaterally. No audible rales rhonchi or wheezing was noted. CARDIOVASCULAR: There is a regular rate and rhythm without any murmurs gallops or rubs. ABDOMEN: There is some minimal right lower quadrant abdominal pain SKIN: Skin is clear with no lesions or rashes and otherwise unremarkable. NEUROLOGIC: Patient is alert and oriented x3. Cranial nerves II through XII are grossly intact. Motor and sensory are also intact. Normal speech, volume and content. Symmetrical smile. MUSCULOSKELETAL: Normal extremities with adequate strength and full range of motion. LYMPHATICS: No significant lymphadenopathy is noted PSYCHIATRIC: Normal psychiatric evaluation. Course Vital Signs 04/14/17 04/14/17 17:36 19:12 Temperature 100.5 F H 100.2 F H Pulse Rate 87 78 Respiratory 18 18 Rate Blood Pressure 118/57 114/58 O2 Sat by Pulse 95 95 Oximetry Medical Decision Making - Lab Data Result diagrams: 04/14/17 17:56 04/14/17 17:56 Lab Results 04/14/17 04/14/17 04/14/17 Range/Units 17:56 17:56 19:41 WBC 6.0 (3.8-10.6) k/uL RBC 3.08 L (3.80-5.40) m/uL Hgb 11.1 L (11.4-16.0) gm/dL Hct 33.3 L (34.0-46.0) % MCV 108.0 H (80.0-100.0) fL MCH 36.1 H (25.0-35.0) pg MCHC 33.5 (31.0-37.0) g/dL RDW 14.6 (11.5-15.5) % Plt Count 229 (150-450) k/uL Neutrophils % 76 % Lymphocytes % 16 % Monocytes % 6 % Eosinophils % 1 % Basophils % 0 % Neutrophils # 4.6 (1.3-7.7) k/uL Lymphocytes # 0.9 L (1.0-4.8) k/uL Monocytes # 0.4 (0-1.0) k/uL Eosinophils # 0.1 (0-0.7) k/uL Basophils # 0.0 (0-0.2) k/uL Manual Slide Review Performed Macrocytosis Marked Sodium 137 (137-145) mmol/L Potassium 3.6 (3.5-5.1) mmol/L Chloride 107 (98-107) mmol/L Carbon Dioxide 21 L (22-30) mmol/L Anion Gap 9 mmol/L BUN 14 (7-17) mg/dL Creatinine 1.25 H (0.52-1.04) mg/dL Est GFR (MDRD) Af Amer 52 (>60 ml/min/1.73 sqM) Est GFR (MDRD) Non-Af 43 (>60 ml/min/1.73 sqM) Glucose 73 L (74-99) mg/dL Calcium 9.1 (8.4-10.2) mg/dL Total Bilirubin 0.3 (0.2-1.3) mg/dL AST 21 (14-36) U/L ALT 30 (9-52) U/L Alkaline Phosphatase 66 (38-126) U/L Total Protein 5.9 L (6.3-8.2) g/dL Albumin 3.7 (3.5-5.0) g/dL Amylase 47 (30-110) U/L Lipase 190 (23-300) U/L Urine Color Yellow Urine Appearance Turbid H (Clear) Urine pH 7.5 (5.0-8.0) Ur Specific [place] 1.011 (1.001-1.035) Urine Protein Negative (Negative) Urine Glucose (UA) Negative (Negative) Urine Ketones Trace H (Negative) Urine Blood Negative (Negative) Urine Nitrite Negative (Negative) Urine Bilirubin Negative (Negative) Urine Urobilinogen <2.0 (<2.0) mg/dL Ur Leukocyte Esterase Small H (Negative) Urine RBC 10 H (0-5) /hpf Urine WBC 28 H (0-5) /hpf Ur Squamous Epith Cells 3 (0-4) /hpf Amorphous Sediment Moderate H (None) /hpf Urine Mucus Rare H (None) /hpf Disposition Clinical Impression: Persistent vomiting, UTI (urinary tract infection) Disposition: ADMITTED IP TO THIS [facility] Referrals: Rajeev Frank MD [Primary Care Provider] - 1-2 days Time of Disposition: 20:52
[2017-04-14] MEDS ORDERED: ACETAMINOPHEN TAB 500 MG TAB PO STA (18:00)
[2017-04-14] MEDS ORDERED: IBUPROFEN IV 800 MG in SODIUM CHLORIDE 0.9% 250 ML IV ONE (18:00)
[2017-04-14 18:08] LABS: Basophils % (A) 0 %; Eosinophils # (A) 0.1 k/uL (0-0.7); Eosinophils % (A) 1 %; HCT 33.3 % (34.0-46.0); HGB 11.1 gm/dL (11.4-16.0); Lymphocytes # (A) 0.9 k/uL (1.0-4.8); Lymphocytes % (A) 16 %; MCH 36.1 pg (25.0-35.0); MCHC 33.5 g/dL (31.0-37.0); Macrocytosis Marked; Mean Platelet Volume 7.3; Monocytes # (A) 0.4 k/uL (0-1.0); Monocytes % (A) 6 %; Neutrophils # (A) 4.6 k/uL (1.3-7.7); Neutrophils % (A) 76 %; Platelet Count 229 k/uL (150-450); RBC 3.08 m/uL (3.80-5.40); RDW 14.6 % (11.5-15.5)
[2017-04-14 18:16] LABS: Albumin 3.7 g/dL (3.5-5.0); Calcium 9.1 mg/dL (8.4-10.2); Potassium 3.6 mmol/L (3.5-5.1); Total Bilirubin 0.3 mg/dL (0.2-1.3); Total Protein 5.9 g/dL (6.3-8.2)
--- NOTE | 2017-04-14 18:54 | CT ---
EXAMINATION TYPE: CT abdomen pelvis wo con DATE OF EXAM: 04/14/2017 COMPARISON: Prior CT abdomen pelvis 10/22/2016 HISTORY: Patient complains of nausea, vomiting, and hematemesis. CT DLP: 804.9 mGycm Automated exposure control for dose reduction was used. TECHNIQUE: Helical acquisition of images from the lung bases through the pelvis. FINDINGS: Lack of intravenous contrast may compromise sensitivity. LUNG BASES: Similar changes, interlobular septal pleural thickening with some minimal areas of ground glass opacity are again noted, no pleural or pericardial effusion AORTA: Infrarenal abdominal aorta is 3.4 cm similar to prior exam. LIVER/GB: Gallbladder is surgically absent, no evident liver mass PANCREAS: Similar atrophic changes are present SPLEEN: No significant abnormality is seen. ADRENALS: No significant abnormality is seen. KIDNEYS: There is no hydronephrosis. Proximal left ureteral calculus measuring approximately 4 mm is noted. REPRODUCTIVE ORGANS: Absent URINARY BLADDER: No significant abnormality is seen. BOWEL: No significant abnormality is seen. FREE AIR: No Free Air is visible. ASCITES: None visible. PELVIC ADENOPATHY: None visualized. RETROPERITONEAL ADENOPATHY: No Retroperitoneal Adenopathy visible. OSSEOUS STRUCTURES: There is an interval compression fracture of L1 with loss of height of 50-75%, t here is associated retropulsed fragment present causing moderate canal stenosis. Postop changes again noted status post lumbosacral fusion with laminectomies There is mild spinal curvature. IMPRESSION: PROXIMAL LEFT URETERAL CALCULUS, NO EVIDENT HYDRONEPHROSIS. INTERVAL COMPRESSION FRACTURE WITH SPINAL STENOSIS DESCRIBED. PATHOLOGIC FRACTURE NOT EXCLUDED. NONCONTRAST EXAM MAY LIMIT SENSITIVITY. ADD ITIONAL FINDINGS ABOVE.
[2017-04-14 20:02] LABS: Amorphous Sediment,Urine Moderate /hpf; Appearance,Urine Turbid (Clear); Bilirubin,Urine Negative (Negative); Blood,Urine Negative (Negative); Color,Urine Yellow; Glucose,Urine (UA) Negative (Negative); Ketones,Urine Trace (Negative); Leukocyte Esterase,Urine Small (Negative); Mucus,Urine Rare /hpf; Nitrite,Urine Negative (Negative); PH, Urine 7.5 (5.0-8.0); Protein,Urine Negative (Negative); RBC,Urine 10 /hpf (0-5); Specific Gravity,Urine 1.011 (1.001-1.035); Squamous Epithelial Cell,Urine 3 /hpf (0-4); Urobilinogen,Urine <2.0 mg/dL (<2.0); WBC,Urine 28 /hpf (0-5)
[2017-04-14] MEDS ORDERED: SODIUM CHLORIDE 0.9% 1,000 ML IV ONE (20:52)
[2017-04-14] MEDS ORDERED: cefTRIAXone IN SWFI 1,000 MG/10 ML SYRINGE IVP STA (20:57)
[2017-04-14] MEDS: METOCLOPRAMIDE 10 MG TAB PO SCH (23:56)
[2017-04-15] MEDS ORDERED: BACLOFEN 10 MG TAB PO PRN (00:04)
[2017-04-15 00:24] VITALS: BMI 32.8
[2017-04-15 00:32] LABS: Glucose,Whole Blood 72 mg/dL (75-99)
[2017-04-15] MEDS: OXYBUTYNIN CHLORIDE 5 MG TAB PO SCH ×3 (00:59→21:40)
[2017-04-15] MEDS: FAMOTIDINE 20 MG TAB PO SCH ×2 (00:59→08:30)
[2017-04-15] MEDS: CLOPIDOGREL 75 MG TAB PO SCH ×2 (00:59→21:39)
[2017-04-15] MEDS: ATORVASTATIN 10 MG TAB PO SCH ×2 (00:59→21:40)
[2017-04-15] MEDS: MAGNESIUM OXIDE 400 MG TAB PO SCH ×2 (00:59→21:40)
[2017-04-15] MEDS: DIPYRIDAMOLE 25 MG TAB PO SCH ×4 (01:01→21:39)
[2017-04-15] MEDS ORDERED: PNEUMOCOCCAL VACC-PNEUMOVAX 23 25 MCG/0.5 ML VIAL IM ONE (06:11)
[2017-04-15] MEDS ORDERED: INFLUENZA VACCINE (6 MOS+) 60 MCG/0.5 ML SYRINGE IM ONE (06:11)
[2017-04-15] MEDS: LEVOTHYROXINE 25 MCG TAB PO SCH (06:45)
[2017-04-15] MEDS: METOCLOPRAMIDE 10 MG TAB PO SCH ×4 (06:45→21:39)
[2017-04-15 07:55] VITALS: RESP 16
[2017-04-15] MEDS: HYDROcodone/APAP 5-325MG 1 EACH TAB PO PRN ×2 (08:29→17:32)
[2017-04-15] MEDS: CITALOPRAM HYDROBROMIDE 20 MG TAB PO SCH (08:29)
[2017-04-15] MEDS ORDERED: LEVOTHYROXINE 25 MCG TAB PO SCH (09:00)
[2017-04-15] MEDS ORDERED: SENNOSIDES 8.6 MG TAB PO PRN (11:53)
[2017-04-15] MEDS ORDERED: PROMETHAZINE 25 MG TAB PO PRN (11:53)
[2017-04-15] MEDS ORDERED: BISACODYL 10 MG SUPP RECTAL PRN (11:53)
[2017-04-15] MEDS ORDERED: MAG HYDROX/AL HYDROX/SIMETH 30 ML CUP PO PRN (11:53)
[2017-04-15] MEDS: acetaZOLAMIDE 250 MG TAB PO SCH ×2 (12:35→16:19)
[2017-04-15] MEDS: PANTOPRAZOLE 40 MG TABLET PO SCH ×2 (12:35→17:07)
--- NOTE | 2017-04-15 13:06 | P.HPIM ---
History of Present Illness This is a 67-year-old female presents emergency department with past medical history significant for anal cancer in August for which patient received chemotherapy and which appears to be in remission. Patient also has diabetes. Patient is in a custodial at this time for rehabilitation from a back injury. Patient comes in today because she states anytime she eats or drinks anything over the last 2 weeks she vomits. Patient denies any diarrhea. Patient states she typically gets a little right right inguinal area Patient states the pain is inconsistent throughout the day but when it comes on she typically gets nauseated and vomits. Patient states she also vomits anytime she eats or drinks anything. Patient denies any fever or chills per patient denies chest pain difficulty breathing or shortness of breath. Patient denies any recent cough. Patient denies being lightheaded or dizzy. Patient states she does have back pain but that is been consistent since she had her injury. Patient upon further workup found to have a stone 4 mm nonseptate renal calculi in the left kidney I do not believe that is contributing to her pain right inguinal area didn't appreciate any hernia but patient had peripheral vascular disease and stent put in in the right inguinal area because of which I'll consult plastic surgery. I'll also get the opinion from a general surgery. Patient had a compression fractures in the past about 2 weeks ago and patient does have back pain Review of Systems REVIEW OF SYSTEMS: CONSTITUTIONAL: No fever, no malaise, no fatigue. HEENT: No recent visual problems or hearing problems. Denied any sore throat. CARDIOVASCULAR: No chest pain, orthopnea, PND, no palpitations, no syncope. PULMONARY: No shortness of breath, no cough, no hemoptysis. GASTROINTESTINAL: No diarrhea, NEUROLOGICAL: No headaches, no weakness, no numbness. HEMATOLOGICAL: Denies any bleeding or petechiae. GENITOURINARY: Denies any burning micturition, frequency, or urgency. MUSCULOSKELETAL/RHEUMATOLOGICAL: Denies any joint pain, swelling, or any muscle pain. ENDOCRINE: Denies any polyuria or polydipsia. The rest of the 14-point review of systems is negative. Past Medical History Past Medical History: Diabetes Mellitus, Hyperlipidemia, Thyroid Disorder, Vascular Disorder Additional Past Medical History / Comment(s): Anal cancer (2 cycles of chemo. Last chemo and rad. Feb 2017) Kidney stones, PVD, takes tegretol for "mild tremor on left side episodes"- STATES TOLD IT WAS NOT SEIZURES -SHAKING LASTS A COUPLE SECONDS AND IS GONE. History of Any Multi-Drug Resistant Organisms: None Reported Past Surgical History: Appendectomy, Back Surgery, Bladder Surgery, Cholecystectomy, Hysterectomy, Joint Replacement Additional Past Surgical History / Comment(s): Bilateral knee replacement, right rotator cuff, iliac femoral stents, bladder suspension x2, right Mediport 09/21/16; left lung bx; lymph node biopsy, left groin. Past Anesthesia/Blood Transfusion Reactions: No Reported Reaction Additional Past Anesthesia/Blood Transfusion Reaction / Comment(s): Claustrophobic Past Psychological History: Depression Smoking Status: Former smoker Past Alcohol Use History: None Reported Additional Past Alcohol Use History / Comment(s): QUIT SMOKING MAY 2016. SMOKED 1 PPD FOR 50 YEARS. Past Drug Use History: None Reported - Past Family History Sister(s) Family Medical History: Cancer Additional Family Medical History / Comment(s): Lung cancer Brother(s) Family Medical History: Cancer Additional Family Medical History / Comment(s): Lung cancer Medications and Allergies Home Medications Medication Instructions Recorded Confirmed Type Clopidogrel [Plavix] 75 mg PO HS 08/15/16 04/14/17 History Dipyridamole [Persantine] 50 mg PO TID 08/15/16 04/14/17 History Famotidine [Pepcid] 20 mg PO BID PRN 08/15/16 04/14/17 History Glimepiride [Amaryl] 2 mg PO AC-BRKFST 08/15/16 04/14/17 History Levothyroxine Sodium [Synthroid] 25 mcg PO DAILY 08/15/16 04/14/17 History Oxybutynin Chloride [Ditropan] 5 mg PO BID 08/15/16 04/14/17 History Simvastatin [Zocor] 20 mg PO HS 08/15/16 04/14/17 History predniSONE 20 mg PO DAILY 10/23/16 04/14/17 History acetaZOLAMIDE [Diamox] 250 mg PO TID@0900,1300,1700 01/08/17 04/14/17 History Polyethylene Glycol 3350 [Miralax] 17 gm PO HS powd.pack 03/31/17 04/14/17 Rx carBAMazepine [TEGretol XR] 200 mg PO BID tab.er.12h 12/13/17 12/27/17 Rx metFORMIN HCL [Glucophage] 500 mg PO BID #0 03/31/17 04/14/17 Rx Baclofen [Lioresal] 10 mg PO DAILY PRN 04/14/17 04/14/17 History Bisacodyl 10 mg RECTAL DAILY PRN 04/14/17 04/14/17 History Citalopram Hydrobromide [CeleXA] 20 mg PO DAILY 04/14/17 04/14/17 History HYDROcodone/APAP 5-325MG [[place] 1 tab PO Q6HR PRN 04/14/17 04/14/17 History 5-325] Lidocaine 4% Cream [Lmx 4] 1 applic TOPICAL TID 04/14/17 04/14/17 History Magnesium Oxide [Mag-Ox] 400 mg PO HS 04/14/17 04/14/17 History Mylanta Susp 400-400-40/5ml 30 ml PO Q4HR PRN 04/14/17 04/14/17 History Promethazine HCl 12.5 mg PO Q8HR PRN 04/14/17 04/14/17 History Sennosides [Senna] 8.6 mg PO HS PRN 04/14/17 04/14/17 History Sulfamethox-Tmp 800-160Mg [Bactrim 1 tab PO BID 04/14/17 04/14/17 History DS 800-160 mg] Allergies Allergy/AdvReac Type Severity Reaction Status Date / Time iodine Allergy Unknown SHELL FISH Verified 04/14/17 16:59 ALLERGY erythromycin base Allergy Rash/Hives Verified 04/14/17 16:59 Fish Containing Products Allergy Anaphylaxis Verified 04/14/17 16:59 Penicillins Allergy Swelling Verified 04/14/17 16:59 shellfish derived [Shellfish] Allergy Anaphylaxis Verified 04/14/17 16:59 Physical Exam Vitals: Vital Signs Temp Pulse Pulse Resp BP BP Pulse Ox 04/15/17 07:00 96.5 F L 83 16 164/71 98 04/14/17 22:20 97.0 F L 74 12 132/61 95 04/14/17 22:00 97.0 F L 78 16 125/60 95 04/14/17 19:12 100.2 F H 78 18 114/58 95 04/14/17 17:36 100.5 F H 87 18 118/57 95 Intake and Output 04/14/17 04/15/17 04/15/17 22:59 06:59 14:59 Other: Voiding Method Bedside Commode # Voids 2 # Bowel Movements 2 Weight 81.647 kg 84 kg PHYSICAL EXAMINATION: GENERAL: The patient is alert and oriented x3, not in any acute distress. Well developed, well nourished. HEENT: Pupils are round and equally reacting to light. EOMI. No scleral icterus. No conjunctival pallor. Normocephalic, atraumatic. No pharyngeal erythema. No thyromegaly. CARDIOVASCULAR: S1 and S2 present. No murmurs, rubs, or gallops. PULMONARY: Chest is clear to auscultation, no wheezing or crackles. ABDOMEN: Soft, nontender, nondistended, normoactive bowel sounds. No palpable organomegaly. MUSCULOSKELETAL: No joint swelling or deformity. EXTREMITIES: No cyanosis, clubbing, or pedal edema. NEUROLOGICAL: Gross neurological examination did not reveal any focal deficits. SKIN: No rashes. Results CBC & Chem 7: 04/14/17 17:56 04/14/17 17:56 Labs: Abnormal Lab Results - Last 24 Hours (Table) 04/14/17 04/14/17 04/14/17 Range/Units 17:56 17:56 19:41 RBC 3.08 L (3.80-5.40) m/uL Hgb 11.1 L (11.4-16.0) gm/dL Hct 33.3 L (34.0-46.0) % MCV 108.0 H (80.0-100.0) fL MCH 36.1 H (25.0-35.0) pg Lymphocytes # 0.9 L (1.0-4.8) k/uL Carbon Dioxide 21 L (22-30) mmol/L Creatinine 1.25 H (0.52-1.04) mg/dL Glucose 73 L (74-99) mg/dL POC Glucose (mg/dL) (75-99) mg/dL Total Protein 5.9 L (6.3-8.2) g/dL Urine Appearance Turbid H (Clear) Urine Ketones Trace H (Negative) Ur Leukocyte Esterase Small H (Negative) Urine RBC 10 H (0-5) /hpf Urine WBC 28 H (0-5) /hpf Amorphous Sediment Moderate H (None) /hpf Urine Mucus Rare H (None) /hpf 04/15/17 Range/Units 00:31 RBC (3.80-5.40) m/uL Hgb (11.4-16.0) gm/dL Hct (34.0-46.0) % MCV (80.0-100.0) fL MCH (25.0-35.0) pg Lymphocytes # (1.0-4.8) k/uL Carbon Dioxide (22-30) mmol/L Creatinine (0.52-1.04) mg/dL Glucose (74-99) mg/dL POC Glucose (mg/dL) 72 L (75-99) mg/dL Total Protein (6.3-8.2) g/dL Urine Appearance (Clear) Urine Ketones (Negative) Ur Leukocyte Esterase (Negative) Urine RBC (0-5) /hpf Urine WBC (0-5) /hpf Amorphous Sediment (None) /hpf Urine Mucus (None) /hpf Microbiology - Last 24 Hours (Table) 04/14/17 19:41 Urine Culture - Preliminary Urine,Voided Thrombosis Risk Factor Assmnt - Choose All That Apply Any of the Below Risk Factors Present?: Yes Each Factor Represents 1 point: Obesity (BMI >25) Each Risk Factor Represents 2 Points: Age 61-74 years Other congenital or acquired thrombophilia - If yes, enter type in comment: No Thrombosis Risk Factor Assessment Total Risk Factor Score: 3 Thrombosis Risk Factor Assessment Level: Moderate Risk Assessment and Plan Plan: -Right inguinal pain: She'll of the exact etiology patient had a stent placed in [facility] because of which I'll obtain ultrasound of the right inguinal area and also consult Dr. Medrano skill or surgery will also get the opinion from the surgery and CAT scan of the abdomen did not show any significant abnormality except for 4 mm nephrolithiasis in the left side which I do not believe is contributing to her pain. -Nausea vomiting secondary to gastritis patient will be switched to proton pump into better from Pepcid will also continue with Maalox -Nephrolithiasis 4 mm in the left side for which patient will not need any further intervention -Recent compression fracture and patient will be discharged back to subacute rehabitation continue pain medications for that Significant atherosclerotic carotid disease, peripheral vascular disease and coronary artery disease Hyperlipidemia -Hypertension -Hypothyroidism For above-mentioned chronic medical problems patient will be continued on appropriate home medications home medications reviewed and reconciled
--- NOTE | 2017-04-15 14:30 | US ---
EXAMINATION TYPE: US groin RT DATE OF EXAM: 04/15/2017 COMPARISON: CT abdomen pelvis 04/14/2017 CLINICAL HISTORY: groin pain. Right groin pain x 2 weeks Right groin at area of pain: 1.7 x 0.8 x 1.2cm isoechoic shadowing area with minimal vascularity . Th ere is some lower density areas which could correspond to this finding on the CT examination. Finding s are nonspecific. IMPRESSION: 1. Solitary area right groin region at the location of pain. This could be a lymph node. Follow-up ca n be performed.
[2017-04-15] MEDS: metFORMIN 500 MG TAB PO SCH (17:07)
[2017-04-15 17:22] LABS: Glucose,Whole Blood 101 mg/dL (75-99)
[2017-04-15 20:29] LABS: Glucose,Whole Blood 92 mg/dL (75-99)
[2017-04-15] MEDS ORDERED: cefTRIAXone IN SWFI 1,000 MG/10 ML SYRINGE IVP SCH (21:00)
[2017-04-15] MEDS: POLYETHYLENE GLYCOL 3350 17 GM POWD.PACK PO SCH ×2 (21:40→21:47)
[2017-04-16] MEDS: HYDROcodone/APAP 5-325MG 1 EACH TAB PO PRN ×2 (06:02→15:59)
[2017-04-16] MEDS: LEVOTHYROXINE 25 MCG TAB PO SCH (06:14)
[2017-04-16] MEDS ORDERED: GLIMEPIRIDE 2 MG TAB PO SCH (07:30)
[2017-04-16 07:46] LABS: Glucose,Whole Blood 125 mg/dL (75-99)
[2017-04-16] MEDS ORDERED: PNEUMOCOCCAL VACC-PNEUMOVAX 23 25 MCG/0.5 ML VIAL IM ONE (08:00)
[2017-04-16] MEDS: OXYBUTYNIN CHLORIDE 5 MG TAB PO SCH (08:00)
[2017-04-16] MEDS: metFORMIN 500 MG TAB PO SCH (08:00)
[2017-04-16] MEDS ORDERED: INFLUENZA VACCINE (6 MOS+) 60 MCG/0.5 ML SYRINGE IM ONE (08:00)
[2017-04-16] MEDS: DIPYRIDAMOLE 25 MG TAB PO SCH ×2 (08:00→16:03)
[2017-04-16] MEDS: METOCLOPRAMIDE 10 MG TAB PO SCH ×2 (08:00→12:41)
[2017-04-16] MEDS: CITALOPRAM HYDROBROMIDE 20 MG TAB PO SCH (08:01)
[2017-04-16] MEDS: acetaZOLAMIDE 250 MG TAB PO SCH ×2 (08:01→12:42)
[2017-04-16] MEDS: PANTOPRAZOLE 40 MG TABLET PO SCH (08:01)
[2017-04-16 08:07] VITALS: BP 172/72; PULSE 80; TEMP 97.9
--- NOTE | 2017-04-16 08:54 | CONS ---
DATE OF CONSULTATION: 04/16/2017 This is a 67-year-old female, known to me from the office. The patient had some vascular intervention done at [place] in the past. Patient came with a history of nausea, vomiting and urinary tract infection. Patient has been complaining of pain in the right groin for the past few weeks. The pain is mostly in the right groin area. Her nausea and vomiting has improved. The patient also has been diagnosed with anal cancer in the past, for that she went for radiation and chemotherapy. PHYSICAL EXAMINATION: On examination, patient was seen in her room. NECK: Supple. Trachea central. CHEST: Clear to auscultation. ABDOMEN: Soft. There is tenderness noted on the right groin at the pubic area. VASCULAR EXAMINATION: Femoral pulses are present bilateral. CT scan showed no evidence of abscess or any internal hernia. Patient was seen by Dr. Amanda Emmanuel most likely she has some kind of hernia or due to radiation there some concern about radiation affecting the pubic bones. Dr. Emmanuel will arrange for possible laparoscopic examination to evaluate if there is an internal hernia. At this point, patient does not have any vascular problems. We will follow in the office in about 2 weeks. MMODL / IJN: [id number] / MTDD
[2017-04-16] MEDS ORDERED: FAMOTIDINE 20 MG TAB PO SCH (09:00)
[2017-04-16] MEDS ORDERED: predniSONE 20 MG TAB PO SCH (09:00)
[2017-04-16 09:25] LABS: HCT 34.4 % (34.0-46.0); HGB 11.1 gm/dL (11.4-16.0); MCH 35.4 pg (25.0-35.0); MCHC 32.2 g/dL (31.0-37.0); MCV 109.9 fL (80.0-100.0); Macrocytosis Marked; Mean Platelet Volume 7.4; Platelet Count 199 k/uL (150-450); RBC 3.13 m/uL (3.80-5.40); RDW 14.2 % (11.5-15.5); WBC 5.5 k/uL (3.8-10.6)
[2017-04-16 09:31] LABS: Anion Gap 6 mmol/L; Blood Urea Nitrogen 7 mg/dL (7-17); Calcium 8.7 mg/dL (8.4-10.2); Carbon Dioxide 21 mmol/L (22-30); Chloride 110 mmol/L (98-107); Glucose 176 mg/dL (74-99); Potassium 3.5 mmol/L (3.5-5.1); Sodium 137 mmol/L (137-145)
[2017-04-16] MEDS ORDERED: Potassium Replacement Protocol 1 EACH MISC MISCELLANE PRN (10:22)
[2017-04-16] MEDS: POTASSIUM CHLORIDE ER 20 MEQ TAB.ER PO SCH ×2 (11:01→12:41)
[2017-04-16 12:20] LABS: Glucose,Whole Blood 176 mg/dL (75-99)
--- NOTE | 2017-04-16 15:04 | P.DS ---
Providers Date of admission: 04/14/17 20:52 Attending physician: Jw Collier Consults: 04/15/17 11:54 Consult Physician Routine Consulting Provider: Jammie Rosales Consult Reason/Comments: Right inguinal pain Do you want consulting provider notified?: Yes 04/15/17 11:58 Consult Physician Routine Consulting Provider: Nehemiah Medrano Consult Reason/Comments: right inguinal pain and stents in the inguinal area Do you want consulting provider notified?: Yes Primary care physician: [facility] Course: This is a 67-year-old female presents emergency department with past medical history significant for anal cancer in August for which patient received chemotherapy and which appears to be in remission. Patient also has diabetes. Patient is in a prison at this time for rehabilitation from a back injury. Patient comes in today because she states anytime she eats or drinks anything over the last 2 weeks she vomits. Patient denies any diarrhea. Patient states she typically gets a little right right inguinal area Patient states the pain is inconsistent throughout the day but when it comes on she typically gets nauseated and vomits. Patient states she also vomits anytime she eats or drinks anything. Patient denies any fever or chills per patient denies chest pain difficulty breathing or shortness of breath. Patient denies any recent cough. Patient denies being lightheaded or dizzy. Patient states she does have back pain but that is been consistent since she had her injury. Patient upon further workup found to have a stone 4 mm nonseptate renal calculi in the left kidney I do not believe that is contributing to her pain right inguinal area didn't appreciate any hernia but patient had peripheral vascular disease and stent put in in the right inguinal area because of which I'll consult plastic surgery. I'll also get the opinion from a general surgery. Patient had a compression fractures in the past about 2 weeks ago and patient does have back pain 04/16/2017 Patient was evaluated by surgery and vascular surgery for her right inguinal pain no further intervention is being done and patient had an ultrasound of the right groin a CAT scan of the abdomen without any significant abnormality patient may need the pain management and I am increasing the dose of [place]'s and patient will be discharged today back to rehab patient is just concerned she may end up being a long-term resident at the facility. But she only got couple weeks of therapy PHYSICAL EXAMINATION: GENERAL: The patient is alert and oriented x3, not in any acute distress. Well developed, well nourished. HEENT: Pupils are round and equally reacting to light. EOMI. No scleral icterus. No conjunctival pallor. Normocephalic, atraumatic. No pharyngeal erythema. No thyromegaly. CARDIOVASCULAR: S1 and S2 present. No murmurs, rubs, or gallops. PULMONARY: Chest is clear to auscultation, no wheezing or crackles. ABDOMEN: Soft, nontender, nondistended, normoactive bowel sounds. No palpable organomegaly. MUSCULOSKELETAL: No joint swelling or deformity. EXTREMITIES: No cyanosis, clubbing, or pedal edema. NEUROLOGICAL: Gross neurological examination did not reveal any focal deficits. SKIN: No rashes. Assessment and Plan Plan: -Right inguinal pain: Unsure of the exact etiology most probably related to musculoskeletal injury no further intervention continue with physical therapy pain management as mentioned above -Nausea vomiting secondary to gastritis patient will be switched to proton pump into better from Pepcid will also continue with Maalox -Nephrolithiasis 4 mm in the left side for which patient will not need any further intervention -Recent compression fracture and patient will be discharged back to subacute rehabitation continue pain medications for that Significant atherosclerotic carotid disease, peripheral vascular disease and coronary artery disease Hyperlipidemia -Hypertension -Hypothyroidism Plan - Discharge Summary Discharge Rx Participant: Yes New Discharge Prescriptions: New HYDROcodone/APAP 7.5-325MG [[place] 7.5-325] 1 tab PO Q4H PRN #30 tab PRN Reason: Pain Continue Clopidogrel [Plavix] 75 mg PO HS Levothyroxine Sodium [Synthroid] 25 mcg PO DAILY Glimepiride [Amaryl] 2 mg PO AC-BRKFST Dipyridamole [Persantine] 50 mg PO TID Simvastatin [Zocor] 20 mg PO HS Famotidine [Pepcid] 20 mg PO BID PRN PRN Reason: Gi Upset Oxybutynin Chloride [Ditropan] 5 mg PO BID predniSONE 20 mg PO DAILY acetaZOLAMIDE [Diamox] 250 mg PO TID@0900,1300,1700 carBAMazepine [TEGretol XR] 200 mg PO BID tab.er.12h Polyethylene Glycol 3350 [Miralax] 17 gm PO HS powd.pack metFORMIN HCL [Glucophage] 500 mg PO BID #0 Mylanta Susp 400-400-40/5ml 30 ml PO Q4HR PRN PRN Reason: Indigestion Bisacodyl 10 mg RECTAL DAILY PRN PRN Reason: Constipation Lidocaine 4% Cream [Lmx 4] 1 applic TOPICAL TID Sennosides [Senna] 8.6 mg PO HS PRN PRN Reason: Constipation Magnesium Oxide [Mag-Ox] 400 mg PO HS Citalopram Hydrobromide [CeleXA] 20 mg PO DAILY Baclofen [Lioresal] 10 mg PO DAILY PRN PRN Reason: mascle spasm Promethazine HCl 12.5 mg PO Q8HR PRN PRN Reason: Nausea Discontinued HYDROcodone/APAP 5-325MG [[place] 5-325] 1 tab PO Q6HR PRN PRN Reason: Pain Sulfamethox-Tmp 800-160Mg [Bactrim DS 800-160 mg] 1 tab PO BID Discharge Medication List Clopidogrel [Plavix] 75 mg PO HS 08/15/16 [History] Dipyridamole [Persantine] 50 mg PO TID 08/15/16 [History] Famotidine [Pepcid] 20 mg PO BID PRN 08/15/16 [History] Glimepiride [Amaryl] 2 mg PO AC-BRKFST 08/15/16 [History] Levothyroxine Sodium [Synthroid] 25 mcg PO DAILY 08/15/16 [History] Oxybutynin Chloride [Ditropan] 5 mg PO BID 08/15/16 [History] Simvastatin [Zocor] 20 mg PO HS 08/15/16 [History] predniSONE 20 mg PO DAILY 10/23/16 [History] acetaZOLAMIDE [Diamox] 250 mg PO TID@0900,1300,1700 01/08/17 [History] Polyethylene Glycol 3350 [Miralax] 17 gm PO HS powd.pack 03/31/17 [Rx] carBAMazepine [TEGretol XR] 200 mg PO BID tab.er.12h 03/31/17 [Rx] metFORMIN HCL [Glucophage] 500 mg PO BID #0 03/31/17 [Rx] Baclofen [Lioresal] 10 mg PO DAILY PRN 04/14/17 [History] Bisacodyl 10 mg RECTAL DAILY PRN 04/14/17 [History] Citalopram Hydrobromide [CeleXA] 20 mg PO DAILY 04/14/17 [History] Lidocaine 4% Cream [Lmx 4] 1 applic TOPICAL TID 04/14/17 [History] Magnesium Oxide [Mag-Ox] 400 mg PO HS 04/14/17 [History] Mylanta Susp 400-400-40/5ml 30 ml PO Q4HR PRN 04/14/17 [History] Promethazine HCl 12.5 mg PO Q8HR PRN 04/14/17 [History] Sennosides [Senna] 8.6 mg PO HS PRN 04/14/17 [History] HYDROcodone/APAP 7.5-325MG [[place] 7.5-325] 1 tab PO Q4H PRN #30 tab 04/16/17 [Rx ] Follow up Appointment(s)/Referral(s): Rajeev Frank MD [Primary Care Provider] - 1-2 days Patient Instructions/Handouts: Type 2 Diabetes in Adults (GEN) Discharge Disposition: TRANSFER TO SNF/ECF
--- NOTE | 2017-04-16 16:34 | P.GSCN ---
History of Present Illness Consult date: 04/16/17 History of present illness: The patient is a 67-year-old white female who presented to the emergency department with a complaint of nausea and vomiting back and right groin pain. Of significance is the fact that the patient has been treated with radiation and chemotherapy for anal cancer. Several weeks ago she was at another facility where she fell on her back and after this she began having increased lower back pain as well as right groin pain. The patient states that she has had prior back surgery and although the pain in her back is persistent is not new. The pain in the right groin area is new after the fall. She did have a computed tomography scan performed which does not show any groin hernia. She also had an ultrasound of the groin which shows a questionable lymph node in that area. The patient is now tolerating diet without difficulty. Patient is known to have a kidney stone 4 mm in the left kidney. Past surgical history: 1. Right rotator cuff surgery right 2. Appendectomy 3. Cholecystectomy 4. Hysterectomy 5. Bilateral knee surgery. 6. Vascular stents placed to the right groin 7. Tonsils and adenoids Past medical history: 1. Anal cancer 2. Herniated disc in her back 3. Type 2 diabetes 4. Hypothyroidism 5. High cholesterol. Review of systems: HEENT: Negative Heart: Negative Pulmonary: Negative GI: Anal cancer Neurologic: Negative Hematologic: Negative : Kidney stone Musculoskeletal: Back pain Social history: Smoking: Negative she stopped in May Alcohol: Negative Drugs: Negative Review of Systems - Constitutional Reports as per HPI - Cardiovascular Reports as per HPI - Respiratory Reports as per HPI - Gastrointestinal Gastrointestinal Comment(s): History of anal cancer Reports as per HPI - Genitourinary Genitourinary Comment(s): Kidney stone - Musculoskeletal Reports as per HPI Past Medical History Past Medical History: Diabetes Mellitus, Hyperlipidemia, Thyroid Disorder, Vascular Disorder Additional Past Medical History / Comment(s): Anal cancer (2 cycles of chemo. Last chemo and rad. Feb 2017) Kidney stones, PVD, takes tegretol for "mild tremor on left side episodes"- STATES TOLD IT WAS NOT SEIZURES -SHAKING LASTS A COUPLE SECONDS AND IS GONE. History of Any Multi-Drug Resistant Organisms: None Reported Past Surgical History: Appendectomy, Back Surgery, Bladder Surgery, Cholecystectomy, Hysterectomy, Joint Replacement Additional Past Surgical History / Comment(s): Bilateral knee replacement, right rotator cuff, iliac femoral stents, bladder suspension x2, right Mediport 09/21/16; left lung bx; lymph node biopsy, left groin. Past Anesthesia/Blood Transfusion Reactions: No Reported Reaction Additional Past Anesthesia/Blood Transfusion Reaction / Comm: Claustrophobic Past Psychological History: Depression Smoking Status: Former smoker Past Alcohol Use History: None Reported Additional Past Alcohol Use History / Comment(s): QUIT SMOKING MAY 2016. SMOKED 1 PPD FOR 50 YEARS. Past Drug Use History: None Reported - Past Family History Sister(s) Family Medical History: Cancer Additional Family Medical History / Comment(s): Lung cancer Brother(s) Family Medical History: Cancer Additional Family Medical History / Comment(s): Lung cancer Medications and Allergies Home Medications Medication Instructions Recorded Confirmed Type Clopidogrel [Plavix] 75 mg PO HS 08/15/16 04/14/17 History Dipyridamole [Persantine] 50 mg PO TID 08/15/16 04/14/17 History Glimepiride [Amaryl] 2 mg PO AC-BRKFST 08/15/16 04/14/17 History Levothyroxine Sodium [Synthroid] 25 mcg PO DAILY 08/15/16 04/14/17 History Oxybutynin Chloride [Ditropan] 5 mg PO BID 08/15/16 04/14/17 History Simvastatin [Zocor] 20 mg PO HS 08/15/16 04/14/17 History predniSONE 20 mg PO DAILY 10/23/16 04/14/17 History acetaZOLAMIDE [Diamox] 250 mg PO TID@0900,1300,1700 01/08/17 04/14/17 History Polyethylene Glycol 3350 [Miralax] 17 gm PO HS powd.pack 03/31/17 04/14/17 Rx carBAMazepine [TEGretol XR] 200 mg PO BID tab.er.12h 03/31/17 04/14/17 Rx metFORMIN HCL [Glucophage] 500 mg PO BID #0 03/31/17 04/14/17 Rx Baclofen [Lioresal] 10 mg PO DAILY PRN 04/14/17 04/14/17 History Bisacodyl 10 mg RECTAL DAILY PRN 04/14/17 04/14/17 History Citalopram Hydrobromide [CeleXA] 20 mg PO DAILY 04/14/17 04/14/17 History Lidocaine 4% Cream [Lmx 4] 1 applic TOPICAL TID 04/14/17 04/14/17 History Magnesium Oxide [Mag-Ox] 400 mg PO HS 04/14/17 04/14/17 History Mylanta Susp 400-400-40/5ml 30 ml PO Q4HR PRN 04/14/17 04/14/17 History Promethazine HCl 12.5 mg PO Q8HR PRN 04/14/17 04/14/17 History Sennosides [Senna] 8.6 mg PO HS PRN 04/14/17 04/14/17 History HYDROcodone/APAP 7.5-325MG [[place] 1 tab PO Q4H PRN #30 tab 04/16/17 Rx 7.5-325] Omeprazole [PriLOSEC] 40 mg PO AC-BRKFST #14 capsule. 04/16/17 Rx Allergies Allergy/AdvReac Type Severity Reaction Status Date / Time iodine Allergy Unknown SHELL FISH Verified 04/14/17 16:59 ALLERGY erythromycin base Allergy Rash/Hives Verified 04/14/17 16:59 Fish Containing Products Allergy Anaphylaxis Verified 04/14/17 16:59 Penicillins Allergy Swelling Verified 04/14/17 16:59 shellfish derived [Shellfish] Allergy Anaphylaxis Verified 04/14/17 16:59 Surgical - Exam Vital Signs Temp Pulse Resp BP Pulse Ox 100.5 F H 87 18 118/57 95 04/14/17 17:36 04/14/17 17:36 04/14/17 17:36 04/14/17 17:36 04/14/17 17:36 - General well developed, obese - Eyes normal ocular movement - ENT normal pinna, no hearing loss - Respiratory normal expansion, normal respiratory effort, clear to auscultation - Cardiovascular Rhythm: regular Heart Sounds: normal: S1, S2 - Abdomen Patient has bilateral femoral +2 pulses and medial to the femoral pulse on the right patient has some tenderness over the pubis no definite bulge No definite right or left inguinal hernias Abdomen: soft, non tender, bowel sounds Hernia: none - Integumentary no rash - Psychiatric oriented to time, oriented to person, oriented to place, speech is normal Results - Labs 04/16/17 08:38 04/16/17 08:38 Abnormal Lab Results - Last 24 Hours (Table) 04/15/17 04/16/17 04/16/17 Range/Units 17:11 07:31 08:38 RBC 3.13 L (3.80-5.40) m/uL Hgb 11.1 L (11.4-16.0) gm/dL MCV 109.9 H (80.0-100.0) fL MCH 35.4 H (25.0-35.0) pg Chloride (98-107) mmol/L Carbon Dioxide (22-30) mmol/L Glucose (74-99) mg/dL POC Glucose (mg/dL) 101 H 125 H (75-99) mg/dL 04/16/17 04/16/17 Range/Units 08:38 12:16 RBC (3.80-5.40) m/uL Hgb (11.4-16.0) gm/dL MCV (80.0-100.0) fL MCH (25.0-35.0) pg Chloride 110 H (98-107) mmol/L Carbon Dioxide 21 L (22-30) mmol/L Glucose 176 H (74-99) mg/dL POC Glucose (mg/dL) 176 H (75-99) mg/dL Microbiology - Last 24 Hours (Table) 04/14/17 19:41 Urine Culture - Final Urine,Voided Diabetes panel 04/16/17 Range/Units 08:38 Sodium 137 (137-145) mmol/L Potassium 3.5 (3.5-5.1) mmol/L Chloride 110 H (98-107) mmol/L Carbon Dioxide 21 L (22-30) mmol/L BUN 7 (7-17) mg/dL Creatinine 0.98 (0.52-1.04) mg/dL Glucose 176 H (74-99) mg/dL Calcium 8.7 (8.4-10.2) mg/dL Calcium panel 04/16/17 Range/Units 08:38 Calcium 8.7 (8.4-10.2) mg/dL Pituitary panel 04/16/17 Range/Units 08:38 Sodium 137 (137-145) mmol/L Potassium 3.5 (3.5-5.1) mmol/L Chloride 110 H (98-107) mmol/L Carbon Dioxide 21 L (22-30) mmol/L BUN 7 (7-17) mg/dL Creatinine 0.98 (0.52-1.04) mg/dL Glucose 176 H (74-99) mg/dL Calcium 8.7 (8.4-10.2) mg/dL Adrenal panel 04/16/17 Range/Units 08:38 Sodium 137 (137-145) mmol/L Potassium 3.5 (3.5-5.1) mmol/L Chloride 110 H (98-107) mmol/L Carbon Dioxide 21 L (22-30) mmol/L BUN 7 (7-17) mg/dL Creatinine 0.98 (0.52-1.04) mg/dL Glucose 176 H (74-99) mg/dL Calcium 8.7 (8.4-10.2) mg/dL - Imaging CT scan - abdomen: report reviewed, image reviewed CT scan - pelvis: report reviewed, image reviewed (Review of the CAT scans and ultrasound did not reveal any definite hernia, possible lymph node in the right groin) Assessment and Plan Assessment: Impression/plan: 1. Complaint of pain in the right groin no definite hernia 2. Resolved nausea and vomiting 3. Lumbar disc disease 4. Anal cancer 5. Type 2 diabetes 6. Hypothyroidism 7. High cholesterol 8. Peripheral vascular disease Plan: 1. This time patient does not have an acute surgical problem, right groin pain/ pubic pain may be related to the fall there is not a discrete hernia at this time on physical exam or radiographic evaluation 2. Medical management of medical conditions 3. If pain persists, we will be happy to see the patient as an outpatient
[2017-04-16 18:35] LABS: Hemoglobin A1C 5.8 % (4.0-6.0)
== END 2017-04-16 16:03 ==
LOC: EC 16:38 → 4MS4W 20:52
PROVIDERS: ADMIT Hospitalist; ATTEND Hospitalist
DX: K29.70 Gastritis, unspecified, without bleeding (principal); R10.31 Right lower quadrant pain; N39.0 Urinary tract infection, site not specified; E11.51 Type 2 diabetes mellitus with diabetic peripheral angiopathy without gangrene; E78.5 Hyperlipidemia, unspecified; F32.9 Major depressive disorder, single episode, unspecified; F41.9 Anxiety disorder, unspecified; M48.50XA Collapsed vertebra, not elsewhere classified, site unspecified, initial encounter for fracture; N20.0 Calculus of kidney; E03.9 Hypothyroidism, unspecified; E66.9 Obesity, unspecified; Z68.32 Body mass index [BMI] 32.0-32.9, adult; I25.10 Atherosclerotic heart disease of native coronary artery without angina pectoris; E78.00 Pure hypercholesterolemia, unspecified; I65.29 Occlusion and stenosis of unspecified carotid artery; M51.9 Unspecified thoracic, thoracolumbar and lumbosacral intervertebral disc disorder; R25.1 Tremor, unspecified; Z79.02 Long term (current) use of antithrombotics/antiplatelets; Z79.52 Long term (current) use of systemic steroids; Z79.899 Other long term (current) drug therapy; Z79.84 Long term (current) use of oral hypoglycemic drugs; Z88.1 Allergy status to other antibiotic agents; Z88.0 Allergy status to penicillin; Z88.8 Allergy status to other drugs, medicaments and biological substances; Z87.891 Personal history of nicotine dependence; Z92.21 Personal history of antineoplastic chemotherapy; Z92.3 Personal history of irradiation; Z85.048 Personal history of other malignant neoplasm of rectum, rectosigmoid junction, and anus; Z80.1 Family history of malignant neoplasm of trachea, bronchus and lung; Z95.828 Presence of other vascular implants and grafts; Z90.710 Acquired absence of both cervix and uterus
CPT/HCPCS: 96376; 96361 ×3; 96374; 96375; 99285; 36415; 97162; 97165; 80053; 80048; 82150; 83690; 85025; 85027; 81001; 87086; 83036; 76882; 74176; G0378 ×3; J2405; J0696 ×2; J1741; J7512

== ENCOUNTER → 2017-06-19 | Outpatient (CLI) | payer MEDICARE, OTHER ==
--- NOTE | 2017-06-20 14:32 | PE ---
EXAMINATION TYPE: PET CT fusion skull to thigh DATE OF EXAM: 06/19/2017 COMPARISON: CT abdomen pelvis 04/14/2017 Prior PET/CT: 08/15/2016 HISTORY: Colorectal cancer TECHNIQUE: Following the intravenous administration of 11.42 mCi of F-18 FDG, whole body images are performed from the skull base to the midthigh. Images are reviewed on the computer in the coronal, a xial, and sagittal planes. Reconstructed rotating images are created on independent workstation and reviewed on the computer. A localization and attenuation correction CT is performed in conjunction with the PET scan. DLP: 420.72 mGycm SCAN: Subsequent Scan Blood glucose: 127 mg/dL Average Mediastinum SUV: 1.9 Average Liver SUV: 2.3 FINDINGS: NECK: No abnormal uptake. Previous subtle uptake in the posterior tongue is resolved. Some uptake at the level of the vocal cords to be related to phonation. Mild uptake in musculature at the left shou lder could be related to motion. THORAX: No abnormal uptake. ABDOMEN: No abnormal uptake PELVIS: There is mild uptake to the left of the anus with diffuse uptake around the anus. This could be related to the residual cancer. This is a change from the 01/02/2017 comparison. OSSEOUS STRUCTURES: No abnormal uptake. LOCALIZATION CT: Postsurgical changes are within the lumbar spine. There is a 3.4 cm ascending thorac ic aorta at the level the main pulmonary artery. Main pulmonary artery the bifurcation measures 2.1 c m. Coronary artery calcifications present. Nonspecific increased density within the lung bases. Fibro sis and atelectasis should be considered. The abdominal aorta has some fusiform prominence with an AP diameter of 3.2 cm. Stents are within the iliac vessels. COMPARISON: Radiotracer within the anal region is diminished. Perirectal radiotracer is likewise dimi nished. IMPRESSION: 1. Improving radiotracer accumulation in the perirectal and anal region with mild residual. 2. No suspicious new uptake to suggest metastatic disease.
== END | disposition home or self-care (01) ==
LOC: RADPETMAIN 08:23
PROVIDERS: ATTEND Internal Medicine Hematology & Oncology
DX: C21.1 Malignant neoplasm of anal canal (principal)
CPT/HCPCS: 78815; A9552

== ENCOUNTER → 2017-11-06 | Outpatient (CLI) | payer MEDICARE, OTHER ==
--- NOTE | 2017-11-09 20:37 | PE ---
EXAMINATION TYPE: PET CT fusion skull to thigh DATE OF EXAM: 11/06/2017 CLINICAL HISTORY: 67 year-old female restaging anal cancer. Last chemotherapy and radiation therapy o n 02/18/2017. TECHNIQUE: Following the intravenous administration of 15.2 mCi of F-18 FDG, whole body images are performed from the skull base to the midthigh. Images are reviewed on the computer in the coronal, a xial, and sagittal planes. Reconstructed rotating images are created on independent workstation and reviewed on the computer. A localization and attenuation correction CT is performed in conjunction with the PET scan. Glucose level: 121 mg/dL COMPARISON: 06/19/2017 and 08/15/2016. CTDI: 5.28 mGy DLP: 470.13 mGy-cm FINDINGS: PET: Physiologic FDG uptake within the neck. Redemonstrated nonenlarged and borderline and mildly enlarged mediastinal lymph nodes measuring up to 1.1 cm. These show no significant FDG uptake as noted previously. Redemonstrated diffuse patchy and confluent groundglass and interstitial densities throughout the suzie gs, relatively stable to prior with associated mild patchy increased FDG uptake. Average liver SUV 2.5. There is variable segmental FDG uptake throughout the colon suggesting physiologic muscular uptake. T he overall uptake has decreased from 06/19/2017. Intense FDG uptake along the anterior perineum relating to urinary contamination. Focal new intense FDG uptake centered at the anus, max SUV 9.3. ATTENUATION CORRECTION CT: Paranasal sinuses and mastoid air cells are pneumatized. No cervical lymphadenopathy. Right anterior chest wall injection port with catheter tip at the lower SVC. Heart remains borderline enlarged without pericardial effusion. Coronary vessel calcifications are present. Large caliber to the main right and left pulmonary arteries at 3.0 and 2.9 cm, respectively, suggesting underlying pul monary arterial hypertension. Cholecystectomy clips. AAA measuring 3.3 cm, not significantly changed from 08/15/2016. No dilated sma ll bowel, free fluid, or free air. Moderate stool burden. No pericolonic inflammatory change. Bladder is nondistended. No abnormal fluid collection in the pelvis or pelvic lymphadenopathy. Bones: Degenerative changes at the hips. Posterior lumbar fusion with laminectomy change. Vertebral c ompression deformity of L1 shows no increased FDG uptake and is unchanged from 06/19/2017 but new from 01/02/2017. Changes of DISH within the mid to lower thoracic spine. IMPRESSION: 1. New focal intense uptake centered at the anus. Direct visualization recommended. Both physiologic muscular activity and local recurrence are in the differential. 2. Otherwise, no CT or metabolic evidence for metastatic disease. 3. Incidental: Similar inflammatory groundglass changes in the lungs (possible NSIP), pulmonary arter ial hypertension, and relatively stable AAA at 3.3 cm. 4. Note: Now chronic vertebral compression collapse of L1. This shows no abnormal hypermetabolism and is new from 01/02/2017.
== END | disposition home or self-care (01) ==
LOC: RADPETMAIN 09:40
PROVIDERS: ATTEND Internal Medicine Hematology & Oncology
DX: C21.1 Malignant neoplasm of anal canal (principal); J98.4 Other disorders of lung; I27.20 Pulmonary hypertension, unspecified; I71.4 Abdominal aortic aneurysm, without rupture; M48.56XA Collapsed vertebra, not elsewhere classified, lumbar region, initial encounter for fracture
CPT/HCPCS: 78815; A9552

== ENCOUNTER 2017-12-21 06:47 | Day surgery (SDC) | payer MEDICARE, OTHER ==
[2017-12-16 09:01] VITALS: BMI 32.4
[2017-12-21 07:28] VITALS: RESP 16; TEMP 98.2
[2017-12-21 07:30] LABS: Glucose,Whole Blood 127 mg/dL (75-99)
[2017-12-21] MEDS ORDERED: PROPOFOL 10 MG/ML 20 ML VIAL IV ONE (08:27)
[2017-12-21] MEDS ORDERED: LIDOCAINE 1% INJ 10MG/ML (20 ML MDV) ONE (08:27)
--- NOTE | 2017-12-21 08:59 | P.PCN ---
Date of Procedure: 12/21/17 Procedure(s) Performed: Procedure: Flexible sigmoidoscopy and biopsy. Preoperative diagnosis: History of anal cancer status post chemotherapy. Postoperative diagnosis: No obvious residual cancer noted biopsies obtained in the ano-rectal junction area. Preparation: Sigmoidoscopy prep. Sedation: Was provided by anesthesia. 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 She presented with metastatic disease in the lymph nodes in the groin at that time. The patient completed her treatments in February of that year which included chemotherapy and radiation therapy. I did perform a sigmoidoscopy back in December and there was no residual tumor. Recent PET scan in October showed focused area of uptake in the region of the anus with no evidence of uptake in the lymph nodes. The patient has no complaints. This evaluation was requested to assess for any recurrence. Procedure: With the patient on her left lateral decubitus position and after informed consent and adequate sedation, the perianal area was inspected and it did not show any fissures or fistulas. There were no masses felt on digital rectal examination. The Olympus CFQ 160L video colonoscope was used and was inserted in the rectum in the usual fashion and advanced to the proximal sigmoid. No obvious abnormalities were noted in the sigmoid or in the rectum. No residual anal mass could be seen. After careful inspection, I noted mild prominence of the mucosa at the anorectal junction are likely to be of any clinical significance. Biopsy was obtained. The patient tolerated the procedure well. Plan: The patient was reassured. She will follow-up with you as planned and further plans will be made based on her course.
[2017-12-21 09:13] VITALS: BP 121/70; PULSE 75
== END 2017-12-21 09:37 | disposition home or self-care (01) ==
LOC: ORWHC2ENDO 06:47
DX: Z12.11 Encounter for screening for malignant neoplasm of colon (principal); Z85.048 Personal history of other malignant neoplasm of rectum, rectosigmoid junction, and anus; Z92.21 Personal history of antineoplastic chemotherapy; Z92.3 Personal history of irradiation; E11.51 Type 2 diabetes mellitus with diabetic peripheral angiopathy without gangrene; I10 Essential (primary) hypertension; Z86.73 Personal history of transient ischemic attack (TIA), and cerebral infarction without residual deficits; G47.33 Obstructive sleep apnea (adult) (pediatric); J44.9 Chronic obstructive pulmonary disease, unspecified; F17.210 Nicotine dependence, cigarettes, uncomplicated; F32.9 Major depressive disorder, single episode, unspecified; Z79.84 Long term (current) use of oral hypoglycemic drugs; Z79.02 Long term (current) use of antithrombotics/antiplatelets; Z79.890 Hormone replacement therapy; Z79.899 Other long term (current) drug therapy; Z88.1 Allergy status to other antibiotic agents; Z88.0 Allergy status to penicillin
CPT/HCPCS: 88305; 45380; J2001; J2704

== ENCOUNTER → 2018-03-05 | Outpatient (CLI) | payer MEDICARE, OTHER ==
--- NOTE | 2018-03-07 17:24 | PE ---
Nuclear medicine PET/CT HISTORY: Anal, colorectal carcinoma, subsequent Patient received 11.7 mCi F-18 FDG intravenously in delayed scanning performed from the skull base to the mid thighs. Position and attenuation correction CT scan was performed. Correlation to prior nuclear medicine PET/CT 11/06/2017. Question some motion on the exam, there may be somewhat reduced sensitivity of the exam. Neck and chest: There is no axillary, supraclavicular, or cervical adenopathy. Mediastinal shows inte rval development of borderline enlarged node in the prevascular region, retrocaval pretracheal node i s again noted slightly enlarged at 13 mm. Some mild hilar hypermetabolic uptake is of questionable cl inical significance. Bilateral lungs show interstitial changes, coarse interstitial bands similar to prior exam, there is no pleural or pericardial effusion, no evident lung mass. Focal area of hypermet abolic uptake noted groundglass opacity seen on axial image 92, SUV is only approximately 2.6 Coronar y artery calcifications are present. There may be some groundglass opacities within the lungs. Pulmon xochitl artery somewhat prominent. The heart is enlarged. ABDOMEN: Calcification is present along the liver at the dome of the diaphragm level posteriorly. No evident liver mass or suspicious hypermetabolic uptake. Abdominal aorta is ectatic and 3.5 cm. Calcif ication present in the upper pole right kidney. No evident obstruction. Patient is post cholecystecto my. No retroperitoneal adenopathy or ascites. Anal uptake shows SUV of 3.3 Osseous structures show postop changes at the lower lumbar spine, no significant interval change. No suspicious hypermetabolic uptake. Uptake about the shoulders right greater than left is likely due to arthropathy change. Uptake compatible with gluteus medius tendon partial tears at the insertions armando ng the greater trochanters. IMPRESSION: There is improvement in the degree of hypermetabolic uptake seen at the level of the anus , somewhat more diffuse uptake is present as opposed to prior exam where the uptake was more focal. I ndeterminate lung disease is again noted as described.
== END | disposition home or self-care (01) ==
LOC: RADPETMAIN 09:20
PROVIDERS: ATTEND Internal Medicine Hematology & Oncology
DX: C21.1 Malignant neoplasm of anal canal (principal); J98.4 Other disorders of lung
CPT/HCPCS: 78815; A9552

== ENCOUNTER 2018-07-04 21:02 | Inpatient (IN) | payer MEDICARE, OTHER ==
[2018-07-04] MEDS ORDERED: SODIUM CHLORIDE 0.9% 1,000 ML IV STA (21:25)
--- NOTE | 2018-07-04 21:58 | XR ---
EXAMINATION TYPE: XR chest 1V DATE OF EXAM: 07/04/2018 COMPARISON: 07/08/2017 HISTORY: Fall. Weakness. Syncope. TECHNIQUE: Single frontal view of the chest is obtained. FINDINGS: There is a rounded 5 cm masslike infiltrate in the lateral left upper lobe. There is some coarsening of the lung markings. There is no heart failure. There is no pleural effusion. There are c hest leads. Bony thorax appears intact. I see no rib fracture. IMPRESSION: Masslike density left upper lobe compared to old exam. Follow-up recommended. Tumor is possible. Coarse interstitial partly density consistent with fibrosis. No overt heart failure.
--- NOTE | 2018-07-04 21:59 | XR ---
EXAMINATION TYPE: XR pelvis AP view DATE OF EXAM: 07/04/2018 COMPARISON: 03/27/2017 HISTORY: Fall. Weakness. TECHNIQUE: Single view FINDINGS: The pelvic ring is intact. Proximal femurs are intact. There is spurring of the acetabula. Sacroiliac joints appear normal. IMPRESSION: No acute abnormality of the pelvis. No change.
--- NOTE | 2018-07-04 23:19 | ED ---
Weakness HPI - General Chief complaint: Weakness Stated complaint: Weakness Time Seen by Provider: 07/04/18 21:24 Source: patient, EMS, RN notes reviewed, old records reviewed Mode of arrival: EMS Limitations: no limitations - History of Present Illness Initial comments: This is a 68-year-old female the ER for evaluation. Patient does say for evaluation his transfer hospital for a syncopal event fall with no traumatic injury and prolonged downtime. Patient transferred for evaluation regarding possible causes of syncope and weakness. Hospital at no inpatient beds available MD Complaint: generalized weakness, lack of energy, difficulty walking -: unknown Location: generalized Severity: moderate Severity scale (1-10): 4 Consistency: constant Improves with: none Worsens with: none Context: other (Patient had recent fall with found down of unknown downtime) Associated Symptoms: denies other symptoms - Related Data Home Medications Medication Instructions Recorded Confirmed Clopidogrel [Plavix] 75 mg PO HS 08/15/16 12/16/17 Dipyridamole [Persantine] 50 mg PO BID 08/15/16 12/16/17 Glimepiride [Amaryl] 2 mg PO AC-BRKFST 08/15/16 12/21/17 Levothyroxine Sodium [Synthroid] 25 mcg PO QAM 08/15/16 12/16/17 Oxybutynin Chloride [Ditropan] 10 mg PO BID 08/15/16 12/21/17 Citalopram Hydrobromide [CeleXA] 40 mg PO QAM 04/14/17 12/16/17 Meloxicam 7.5 mg PO DAILY 11/30/17 12/21/17 Mirabegron [Myrbetriq] 25 mg PO DAILY 11/30/17 12/21/17 Omeprazole [PriLOSEC] 20 mg PO AC-BRKFST 11/30/17 12/16/17 carBAMazepine [TEGretol XR] 300 mg PO BID 11/30/17 12/16/17 levETIRAcetam [Keppra] 500 mg PO BID 11/30/17 12/16/17 traZODone HCL [Desyrel] 100 mg PO HS 11/30/17 12/21/17 Simvastatin [Zocor] 40 mg PO HS 12/16/17 12/21/17 Allergies Allergy/AdvReac Type Severity Reaction Status Date / Time iodine Allergy Unknown SHELL FISH Verified 07/04/18 21:10 ALLERGY erythromycin base Allergy Rash/Hives Verified 07/04/18 21:10 Fish Containing Products Allergy Anaphylaxis Verified 07/04/18 21:10 Penicillins Allergy Swelling Verified 07/04/18 21:10 shellfish derived [Shellfish] Allergy Anaphylaxis Verified 07/04/18 21:10 Review of Systems ROS Statement: Those systems with pertinent positive or pertinent negative responses have been documented in the HPI. ROS Other: All systems not noted in ROS Statement are negative. Past Medical History Past Medical History: COPD, CVA/TIA, Diabetes Mellitus, Hyperlipidemia, Sleep Apnea/CPAP/BIPAP, Thyroid Disorder, Vascular Disorder Additional Past Medical History / Comment(s): Anal cancer (2 cycles of chemo. 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 TIA "many yrs ago", "BLUE TOE"-circulation problems, overactive bladder, History of Any Multi-Drug Resistant Organisms: None Reported Past Surgical History: Appendectomy, Back Surgery, Bladder Surgery, Cholecystectomy, Hysterectomy, Joint Replacement Additional Past Surgical History / Comment(s): Bilateral knee replacement, right shoulder rotator cuff,heather iliac femoral stents, bladder suspension x2, right Mediport 09/21/16; left lung biopsy; lymph node biopsy- left groin biopsy(malignant). heather carpal tunnel, heather cataracts, Past Anesthesia/Blood Transfusion Reactions: No Reported Reaction Additional Past Anesthesia/Blood Transfusion Reaction / Comment(s): Claustrophobic Past Psychological History: Depression Smoking Status: Current every day smoker Past Alcohol Use History: None Reported Past Drug Use History: None Reported - Past Family History Sister(s) Family Medical History: Cancer Additional Family Medical History / Comment(s): Lung cancer Brother(s) Family Medical History: Cancer Additional Family Medical History / Comment(s): Lung cancer General Exam - General Exam Comments Initial Comments: NIH of 0 Limitations: no limitations General appearance: alert, in no apparent distress Head exam: Present: atraumatic, normocephalic, normal inspection Eye exam: Present: normal appearance, PERRL, EOMI. Absent: scleral icterus, conjunctival injection, periorbital swelling ENT exam: Present: normal exam, mucous membranes moist Neck exam: Present: normal inspection. Absent: tenderness, meningismus, lymphadenopathy Respiratory exam: Present: normal lung sounds bilaterally. Absent: respiratory distress, wheezes, rales, rhonchi, stridor Cardiovascular Exam: Present: regular rate, normal rhythm, normal heart sounds. Absent: systolic murmur, diastolic murmur, rubs, gallop, clicks GI/Abdominal exam: Present: soft, normal bowel sounds. Absent: distended, tenderness, guarding, rebound, rigid Extremities exam: Present: normal inspection, full ROM, normal capillary refill. Absent: tenderness, pedal edema, joint swelling, calf tenderness Back exam: Present: normal inspection Neurological exam: Present: alert, oriented X3, CN II-XII intact Psychiatric exam: Present: normal affect, normal mood Skin exam: Present: warm, dry, intact, normal color. Absent: rash Course Vital Signs 07/04/18 21:04 Temperature 98.8 F Pulse Rate 78 Respiratory 20 Rate Blood Pressure 103/61 O2 Sat by Pulse 96 Oximetry - Reevaluation(s) Reevaluation #1: 07/04/18 23:21 Transfer paperwork is reviewed Reevaluation #2: 07/04/18 23:21 Patient still feeling very weak Medical Decision Making - Medical Decision Making 68 female the ER for evaluation presented today for evaluation regards to weakness. Dehydration. And a syncopal event with unknown downtime. Patient to be admitted for evaluation of syncope, hydration and physical therapy - Radiology Data Radiology results: report reviewed (Chest x-rays pelvis x-rays negative for acute disease), image reviewed Disposition Clinical Impression: Dehydration, Syncope, Weakness, COPD (chronic obstructive pulmonary disease) Disposition: ADMITTED IP TO THIS HOSP Condition: Fair Is patient prescribed a controlled substance at d/c from ED?: No Referrals: Rajeev Frank MD [Primary Care Provider] - 1-2 days
[2018-07-04] MEDS ORDERED: NITROGLYCERIN SL TABS 0.4 MG TAB SUBLINGUAL PRN (23:22)
[2018-07-04] MEDS ORDERED: cefTRIAXone IN SWFI 1,000 MG/10 ML SYRINGE IVP STA (23:23)
[2018-07-04] MEDS ORDERED: IPRATROPIUM-ALBUTEROL 3 ML NEB INHALATION STA (23:44)
[2018-07-04] MEDS ORDERED: methylPREDNISolone SOD SUCCI 125 MG/2 ML VIAL IV STA (23:45)
[2018-07-05] MEDS ORDERED: LEVOFLOXACIN 750MG-D5W PMX 750 MG in DEXTROSE/WATER 1 150ML.BAG IVPB SCH
[2018-07-05] MEDS: methylPREDNISolone SOD SUCCI 125 MG/2 ML VIAL IV SCH ×4 (00:04→17:53)
[2018-07-05 00:08] LABS: Appearance,Urine Cloudy (Clear); Bacteria,Urine Rare /hpf; Bilirubin,Urine 1+ (Negative); Blood,Urine Trace (Negative); Color,Urine Dark Brown; Glucose,Urine (UA) Negative (Negative); Ketones,Urine Negative (Negative); Leukocyte Esterase,Urine Large (Negative); Mucus,Urine Occasional /hpf; Nitrite,Urine Negative (Negative); Protein,Urine 1+ (Negative); RBC,Urine 26 /hpf (0-5); Specific Gravity,Urine 1.025 (1.001-1.035); Squamous Epithelial Cell,Urine 3 /hpf (0-4)
[2018-07-05] MEDS ORDERED: ONDANSETRON 4 MG/2 ML VIAL IVP STA (00:09)
[2018-07-05] MEDS: IPRATROPIUM-ALBUTEROL 3 ML NEB INHALATION SCH ×7 (04:05→23:03)
[2018-07-05] MEDS: ASPIRIN 325 MG TAB PO SCH (08:29)
[2018-07-05] MEDS: CITALOPRAM HYDROBROMIDE 20 MG TAB PO SCH (14:23)
[2018-07-05] MEDS: MELOXICAM 7.5 MG TAB PO SCH (14:23)
[2018-07-05] MEDS: LEVOTHYROXINE 25 MCG TAB PO SCH (14:23)
[2018-07-05] MEDS: OXYBUTYNIN CHLORIDE 5 MG TAB PO SCH (14:24)
[2018-07-05] MEDS: GLIMEPIRIDE 2 MG TAB PO SCH (14:24)
[2018-07-05] MEDS: levETIRAcetam 500 MG TAB PO SCH ×2 (15:24→21:22)
[2018-07-05 16:29] LABS: Glucose,Whole Blood 201 mg/dL (75-99)
[2018-07-05 20:27] LABS: Glucose,Whole Blood 280 mg/dL (75-99)
[2018-07-05] MEDS ORDERED: CLOPIDOGREL 75 MG TAB PO SCH (21:00)
[2018-07-05] MEDS ORDERED: ATORVASTATIN 20 MG TAB PO SCH (21:00)
[2018-07-05] MEDS ORDERED: INSULIN ASPART (NovoLOG) 100 UNIT/ML VIAL SQ SCH (21:00)
[2018-07-05] MEDS ORDERED: traZODone HCL 100 MG TAB PO SCH (21:00)
[2018-07-05] MEDS ORDERED: MELATONIN 3 MG TABLET PO PRN (21:24)
[2018-07-05] MEDS ORDERED: CALCIUM CARBONATE 500 MG CHEWABLE PO PRN (21:24)
[2018-07-05] MEDS ORDERED: LORazepam 2 MG/ML INJ IV PRN (21:24)
[2018-07-05] MEDS ORDERED: MAGNESIUM HYDROXIDE 2,400 MG/10 ML CUP PO PRN (21:24)
[2018-07-05] MEDS ORDERED: NALOXONE 0.4 MG/ML 1 ML VIAL IV PRN (21:24)
[2018-07-05] MEDS ORDERED: ACETAMINOPHEN TAB 325 MG TAB PO PRN (21:24)
[2018-07-05] MEDS ORDERED: LACTULOSE 20 GM/30 ML CUP PO PRN (21:24)
[2018-07-05] MEDS ORDERED: NICOTINE 21MG/24HR PATCH TRANSDERM SCH (21:30)
[2018-07-05] MEDS ORDERED: ENOXAPARIN 40 MG/0.4 ML SYRINGE SQ SCH (21:30)
[2018-07-05] MEDS ORDERED: levETIRAcetam 250 MG TAB PO ONE (21:45)
[2018-07-05 22:23] LABS: HCT 33.1 % (34.0-46.0); HGB 10.5 gm/dL (11.4-16.0); MCH 31.4 pg (25.0-35.0); MCHC 31.9 g/dL (31.0-37.0); MCV 98.5 fL (80.0-100.0); Mean Platelet Volume 7.5; Platelet Count 205 k/uL (150-450); RBC 3.36 m/uL (3.80-5.40); WBC 7.9 k/uL (3.8-10.6)
[2018-07-05 22:37] LABS: ALT 30 U/L (9-52); AST 37 U/L (14-36); Albumin 3.2 g/dL (3.5-5.0); Alkaline Phosphatase 127 U/L (38-126); Anion Gap 8 mmol/L; Blood Urea Nitrogen 20 mg/dL (7-17); Carbon Dioxide 21 mmol/L (22-30); Chloride 107 mmol/L (98-107); Glucose 266 mg/dL (74-99); Potassium 3.9 mmol/L (3.5-5.1); Sodium 136 mmol/L (137-145); Total Bilirubin 0.7 mg/dL (0.2-1.3); Total Protein 5.8 g/dL (6.3-8.2)
--- NOTE | 2018-07-05 23:26 | HP ---
HISTORY AND PHYSICAL DATE OF ADMISSION: 07/04/2018 DATE OF SERVICE: 07/05/2018 PRESENTING COMPLAINT: Passed out. HISTORY OF PRESENTING COMPLAINT: This is a pleasant 68-year-old patient of Dr. Frank. Chronic stable medical conditions include lumbar osteoarthritis, diabetes, hyperlipidemia, hypothyroid, peripheral artery, anxiety, depression, urinary incontinence. The patient normally has 2 L oxygen at home. She is a long-standing smoker. Lives by herself. The only thing the patient remembers is that somehow she fell down and does not remember for how long she was there. Finally, around 3:00 in the morning she called her daughter and her daughter came in. The patient's legs were toward the bedroom, though the door is normally locked when she goes to sleep. The patient was somewhat confused, in for quite some time after that, and she had to call the EMS, as the patient was unable to get up normally. Normally she can get up on her own. The patient's speech was slightly slurred at that time and the patient was confused. The patient looked a bit drowsy. The patient about 2 weeks ago did have an EEG done at Dr. Alvarez's office and patient follows with Dr. Schwartz out of [facility]. The patient also recently had a heart monitor done, the results of which are not available. The patient sometime ago also had an episode of passing out when she was in the bathtub for about 20 hours. The patient is on 2 anti-seizure medications. The patient denies any palpitations. No focal weakness. No headache. No double vision. Patient's 2 daughters are at the bedside, who provided most of the history, including the daughter who found the patient. The patient presented to the ER. REVIEW OF SYSTEMS: CONSTITUTIONAL: Tired. HEENT: None. RESPIRATORY: Some shortness of breath at baseline. CARDIOVASCULAR: None. GASTROINTESTINAL: None. GENITOURINARY: None. MUSCULOSKELETAL: Arthritic pain in the joints. DERMATOLOGICAL: None. HEMATOLOGICAL: None. LYMPHATICS: None. PSYCHIATRY: Anxiety, depression. NEUROLOGICAL: As above, with no focal symptoms. There was no tongue-biting, no incontinence. PAST MEDICAL HISTORY: 1. COPD. 2. Diabetes mellitus, type 2. 3. Hyperlipidemia. 4. Obstructive sleep apnea. 5. Hypothyroid. 6. Renal cancer, treated with chemo and radiation in 2017. 7. Kidney stones. 8. Peripheral arterial disease. 9. Circulation problems. 10.Overactive bladder from radiation cystitis. 11.Right internal carotid stenosis. 12.Kidney stones. PAST SURGICAL HISTORY: 1. Appendectomy. 2. Back surgery. 3. Bladder surgery. 4. Cholecystectomy. 5. Hysterectomy. 6. Bilateral knee replacement. 7. Right shoulder rotator cuff surgery. 8. Bilateral iliofemoral stents. 9. Bladder suspension x2. 10.Right MediPort. 11.Left groin biopsy. 12.Bilateral carpal tunnel. 13.Bilateral cataracts. PSYCH HISTORY: Depression. SOCIAL HISTORY: Patient has been smoking a pack a day for over 50 years. No alcohol. Lives by herself. FAMILY HISTORY: Lung cancer. HOME MEDICATIONS: 1. Desyrel 100 mg at bedtime. 2. Keppra 500 mg b.i.d. 3. Tegretol XR 400 mg b.i.d. 4. Zocor 40 mg at bedtime. 5. Ditropan 10 mg p.o. daily. 6. Meloxicam 7.5 p.o. daily. 7. Antivert 25 mg p.o. b.i.d. 8. Synthroid 25 mcg a day. 9. Amaryl 2 mg p.o. with breakfast. 10.Plavix 75 mg at bedtime. 11.Celexa 40 mg p.o. daily. ALLERGIES: 1. IODINE. 2. ERYTHROMYCIN. 3. FISH PRODUCTS. 4. PENICILLIN. 5. SHELLFISH. 6. LEVAQUIN. PHYSICAL EXAMINATION: Temperature 98.8, pulse 78, respiration 20, blood pressure 103/61, pulse ox 96% on 2 L. GENERAL APPEARANCE: Well built; BMI 31.9. Lying in bed, not in distress. EYES: Pupils equal. Conjunctivae normal. HEENT: External appearance of nose and ears normal. Oral cavity normal. NECK: JVD not raised. Mass not palpable. RESPIRATORY: Effort normal. LUNGS: Diminished breath sounds. CARDIOVASCULAR: First and second sounds normal. No edema. ABDOMEN: Soft, non-tender. Liver and spleen not palpable. LYMPHATIC: No lymph node palpable in neck or axillae. PSYCHIATRY: Alert and oriented x3. Mood and affect normal. NEUROLOGICAL: Pupils equal. Cranial nerves grossly intact. Power and sensation grossly intact. EXTREMITIES: Patient has evidence of clubbing. INVESTIGATIONS: Troponin x2 negative. Accu-Cheks 201, 280. UA is positive. ASSESSMENT: 1. This is a patient who presented with an episode of passing out, was on the carpet probably for 7 hours, was confused, drowsy, with no actual focal symptoms. Per the daughters and family, has much improved but not back to her baseline. It does appear that this most likely was seizure activity. Patient is getting a workup done by her neurologist at [facility], Dr. Schwartz. I did tell the family there is no neurologist available here. At this point we will increase patient's Keppra to 750 twice a day starting tonight. Will get a repeat EEG, do neuro checks. Will also do an MRI of the brain with and without contrast, and carotid Doppler, though are no focal symptoms. 2. Chronic lumbar osteoarthritis. 3. Diabetes mellitus, type 2, on oral hypoglycemic. 4. Hyperlipidemia. 5. Hypothyroidism. 6. Peripheral arterial disease with stents. 7. Anxiety and depression not otherwise specified. 8. Chronic urine incontinence with radiation cystitis. 9. Acute urinary tract infection, likely from cystitis. 10.Right internal carotid arteries with chronic stenosis. 11.History of anal carcinoma. 12.Chronic nicotine dependence. Patient is a cigarette smoker. 13.Chronic obstructive pulmonary disease in a current smoker. PLAN: The patient is on bronchodilators. There is no acute COPD exacerbation. Will discontinue the steroids. Follow the Accu-Cheks. Other home medications will be resumed. Neuro checks are being done. Will order an MRI of the brain with and without contrast, carotid Doppler and also an EEG. Dose of Keppra has been increased. Care was discussed with the family at length at the bedside. Will also try to get the patient's EEG results from Dr. 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 The patient is going to coordinate the latter. MMODL / IJN: [id number] /
[2018-07-06] MEDS: LEVOTHYROXINE 25 MCG TAB PO SCH (06:01)
[2018-07-06] MEDS: INSULIN ASPART (NovoLOG) 100 UNIT/ML VIAL SQ SCH ×2 (07:07→12:07)
[2018-07-06] MEDS: OXYBUTYNIN CHLORIDE 5 MG TAB PO SCH (07:13)
[2018-07-06] MEDS: MELOXICAM 7.5 MG TAB PO SCH (07:13)
[2018-07-06 07:14] LABS: Glucose,Whole Blood 81 mg/dL (75-99)
[2018-07-06] MEDS: CITALOPRAM HYDROBROMIDE 20 MG TAB PO SCH (07:14)
[2018-07-06] MEDS: ASPIRIN 325 MG TAB PO SCH (07:14)
[2018-07-06] MEDS: GLIMEPIRIDE 2 MG TAB PO SCH (07:14)
[2018-07-06 08:32] VITALS: RESP 12
[2018-07-06] MEDS ORDERED: levETIRAcetam 250 MG TAB PO SCH (09:00)
[2018-07-06] MEDS: IPRATROPIUM-ALBUTEROL 3 ML NEB INHALATION SCH ×2 (09:17→13:07)
--- NOTE | 2018-07-06 09:33 | US ---
EXAMINATION TYPE: US carotid duplex BILAT DATE OF EXAM: 07/06/2018 COMPARISON: US and MRI CLINICAL HISTORY: passed out. Syncope with collapse EXAM MEASUREMENTS: RIGHT: Peak Systolic Velocity (PSV) cm/sec ----- Right CCA: 34.1 ----- Right ICA: Occluded ----- Right ECA: 175.2 RIGHT: End Diastole cm/sec ----- Right CCA: 6.3 ----- Right ICA: Occluded ----- Right ECA: 19.5 LEFT: Peak Systolic Velocity (PSV) cm/sec ----- Left CCA: 60.1 ----- Left ICA: 131.8 ----- Left ECA: 114.5 ICA/CCA ratio: 2.2 LEFT: End Diastole cm/sec ----- Left CCA: 15.6 ----- Left ICA: 37.2 ----- Left ECA: 11.1 VERTEBRALS (direction of flow): Right Vertebral: Antegrade Left Vertebral: Antegrade Rhythm: Normal IMPRESSION: Known right ICA occlusion, elevated velocities left ICA and bilateral ECA's Criteria for Assigning % of Stenosis / Diameter reduction (Estimation based on the indirect measurements of the internal carotid artery velocities (ICA PSV). 1. Normal (no stenosis)=ICA PSV < 125 cm/s: ratio < 2.0: ICA EDV<40 cm/s. 2. Less than 50% stenosis=ICA PSV < 125 cm/s: ratio < 2.0: ICA EDV<40 cm/s. 3. 50 to 69% stenosis=ICA PSV of 125 to 230 cm/s: ration 2.0 ? 4.0: ICA EDV 40-100 cm/s. 4. Greater than 70% stenosis to near occlusion= ICA PSV > 230 cm/s: ratio > 4.0: ICA EDV > 100 cm/s. 5. Near occlusion= ICA PSV velocities may be low or undetectable: variable ratio and ICA EDV. 6. Total occlusion=unable to detect flow.
[2018-07-06 11:06] LABS: Glucose,Whole Blood 40 mg/dL (75-99)
[2018-07-06 11:13] LABS: Glucose,Whole Blood 42 mg/dL (75-99)
[2018-07-06] MEDS ORDERED: DEXTROSE 50%-WATER 50 ML SYRINGE IVP STA (11:31)
[2018-07-06 11:36] LABS: Glucose,Whole Blood 46 mg/dL (75-99)
[2018-07-06 11:36] LABS: Glucose,Whole Blood 77 mg/dL (75-99)
--- NOTE | 2018-07-06 15:15 | MR ---
EXAMINATION TYPE: MR brain wo/w con DATE OF EXAM: 07/06/2018 COMPARISON: Prior MRI brain February 19, 2018 HISTORY: syncope, fall TECHNIQUE: Multiplanar, multisequence images of the brain and brainstem is performed without and with IV contras t, utilizing 8 mL intravenous Gadavist . FINDINGS: Diffusion weighted images demonstrate no evidence of a recent infarct or other diffusion ab normality. There is no worrisome extra-axial fluid collection. There is ventricular and sulcal promi nence consistent with diffuse cerebral atrophy. There are multifocal areas of T2 hyperintensity redem onstrated throughout the white matter bilaterally. Involvement left pontine level axial image 10 isaak ins present. Lesions are nonspecific in appearance and distribution but most likely on basis of produ ct of chronic small vessel ischemic change in patient this age. T2 Star weighted images show no suspi cious intraparenchymal blood product. There is suspected old lacunar infarct inferior right basal toby glia axial image 16 unchanged from prior study. Midline structures redemonstrated empty sella morphology. The craniocervical junction appears within normal limits. Post contrast images demonstrate no abnormal enhancement. Persistent occluded or not visualized distal right internal carotid artery is noted. The dural venous sinuses appear patent. Mi ld mucosal thickening involving bilateral sphenoid sinuses and posterior ethmoid sinuses is now prese nt. Remainder paranasal sinuses are clear. Globes are intact bilaterally. Increased fluid signal righ t mastoid air cells remains present. IMPRESSION: There is moderate generalized atrophy and chronic small vessel ischemic change as well as old inferior right basal ganglia lacunar infarct all redemonstrated. Cannot exclude right-sided mast oiditis, correlate clinically. Some new chronic paranasal sinus disease otherwise no significant watt ge from prior MRI.
--- NOTE | 2018-07-06 15:16 | XR ---
EXAMINATION TYPE: XR chest 2V DATE OF EXAM: 07/06/2018 COMPARISON: 07/04/2018 HISTORY: Shortness of breath TECHNIQUE: Frontal and lateral views of the chest are obtained. FINDINGS: Scattered senescent parenchymal changes noted. Hyperinflation compatible with COPD. Left upper lobe mass is redemonstrated. Coarse lung markings noted bilaterally. Heart size is stable. Mediastinal structures are stable and grossly unremarkable. No evidence for hilar prominence. Degenerative changes dorsal spine. IMPRESSION: 1. Left upper lobe mass felt to reflect malignancy until proven otherwise.
[2018-07-06 15:37] VITALS: BP 114/52; PULSE 60; TEMP 97.9
[2018-07-06 17:10] LABS: Hemoglobin A1C 5.7 % (4.0-6.0)
--- NOTE | 2018-07-07 05:33 | DS ---
DISCHARGE SUMMARY DATE OF ADMISSION: 07/04/2018 DATE OF DISCHARGE: 07/06/2018 FINAL DIAGNOSES: 1. Episode of patient passing out, possibly epilepsy episode. 2. Chronic lumbar osteoarthritis. 3. Diabetes mellitus type 2 on oral hypoglycemic. 4. Hyperlipidemia. 5. Hypothyroidism. 6. Peripheral arterial disease with stents. 7. Anxiety and depression, not otherwise specified. 8. Chronic urinary incontinence with radiation cystitis. 9. Acute urinary tract infection, likely from cystitis. 10.Right internal carotid artery chronic stenosis. 11.History of anal carcinoma. 12.Chronic nicotine dependence. Patient is a cigarette smoker. 13.Chronic obstructive pulmonary disease in a current smoker. 14.Abnormal chest x-ray, suspicious for a mass. HOSPITAL COURSE: This patient presented with an episode of passing out at home. Did not know what was going on for a few hours, was confused after that. There were no focal symptoms. There is suspicion that patient may have had seizure activity. Patient is already on seizure medications. Dose of Keppra was increased. The patient has appointment to follow with her neurologist at [facility] shortly. No further episodes. The patient did have a MRI of the brain that showed evidence of old stroke, no new evidence. Carotid Doppler did confirm a chronic right-sided carotid stenosis. The patient's chest x-ray shows possible left-sided mass. The patient does follow up with Dr. Irving as outpatient. Patient is due for a PET scan coming up very shortly. Care was discussed with the patient's daughter at bedside. Again reminded not to smoke. Discussion and discharge planning more than 35 minutes. PHYSICAL EXAMINATION: On examination, temperature 97.9, pulse 60, respiration 12, blood pressure 114/52, pulse ox 96% on room air. LUNGS: Decreased breath sounds. INVESTIGATIONS: Potassium 3.9. Hemoglobin 10.5. DISCHARGE MEDICATIONS: 1. Plavix 75 mg q.h.s. 2. Amaryl 2 mg with breakfast. 3. Synthroid 25 mcg a day. 4. Ditropan 10 mg p.o. daily. 5. Meloxicam 7.5 p.o. daily. 6. Tegretol 400 mg b.i.d. 7. Desyrel 100 mg q.h.s. 8. Zocor 40 mg q.h.s. 9. Celexa 40 mg p.o. daily. 10.Atrovent HFA 2 puffs q.i.d. 11.Nicotine patch. 12.Keppra 750 mg q.12. The patient to check her Accu-Cheks daily. Follow up with Dr. Frank in 3 days. Follow up with Dr. Irving in 1 week. Discussion and discharge planning more than 35 minutes. Patient also is due to follow up with her neurologist shortly. MMMELISA / JANIAN: [id number] /
--- NOTE | 2018-07-08 08:41 | EEG ---
ELECTROENCEPHALOGRAM REPORT DATE OF SERVICE: 07/06/2018. ELECTROENCEPHALOGRAM (EEG) REPORT: TECHNIQUE: A routine 18-channel EEG was performed with video using the 10-20 international electrode placement system. HISTORY: Syncope, weakness, fall. Patient brought to the emergency room and admitted after being found on the ground in her home after a fall. Patient does not have a recollection of the fall. The patient had 2 seizures many years ago? CURRENT MEDICATIONS: Nitrostat, nicotine patch, Mobic, melatonin and others. STUDY DURATION: 25 minutes. FINDINGS: Please note that quality of this recording was limited, as portions were limited in their interpretation by the presence of muscle artifact. BACKGROUND: The background activity consisted of 8-9 Hz rhythmic waveforms symmetrically distributed through both posterior quadrants. ACTIVATION: Hyperventilation: Not performed. Photic stimulation: Symmetric driving seen. Sleep: None. ABNORMALITIES: None. Please note that one channel of this EEG was dedicated to EKG and demonstrated a sinus rhythm. IMPRESSION: Normal EEG. No epileptiform activity was present. No seizures were recorded. These findings were called to the nurse taking care of the patient on 07/06/2018 at 2:35 p.m. MMODL / JANIAN: [id number] /
== END 2018-07-06 17:23 | disposition home or self-care (01) | DRG 101 ==
LOC: EC 21:02 → 4SSUR 23:22 → OBSVTOIN 23:22 → UNDODISOB 07-06 17:23
PROVIDERS: ADMIT Hospitalist; ATTEND Hospitalist
DX: G40.909 Epilepsy, unspecified, not intractable, without status epilepticus (principal); N30.40 Irradiation cystitis without hematuria; E03.9 Hypothyroidism, unspecified; E11.51 Type 2 diabetes mellitus with diabetic peripheral angiopathy without gangrene; E78.5 Hyperlipidemia, unspecified; E86.0 Dehydration; F17.210 Nicotine dependence, cigarettes, uncomplicated; F32.9 Major depressive disorder, single episode, unspecified; F40.240 Claustrophobia; G47.33 Obstructive sleep apnea (adult) (pediatric); I65.21 Occlusion and stenosis of right carotid artery; J44.9 Chronic obstructive pulmonary disease, unspecified; M47.816 Spondylosis without myelopathy or radiculopathy, lumbar region; N32.81 Overactive bladder; W19.XXXA Unspecified fall, initial encounter; Y84.2 Radiological procedure and radiotherapy as the cause of abnormal reaction of the patient, or of later complication, without mention of misadventure at the time of the procedure; Z79.02 Long term (current) use of antithrombotics/antiplatelets; Z79.84 Long term (current) use of oral hypoglycemic drugs; Z79.890 Hormone replacement therapy; Z79.899 Other long term (current) drug therapy; Z80.1 Family history of malignant neoplasm of trachea, bronchus and lung; Z85.048 Personal history of other malignant neoplasm of rectum, rectosigmoid junction, and anus; Z85.528 Personal history of other malignant neoplasm of kidney; Z86.73 Personal history of transient ischemic attack (TIA), and cerebral infarction without residual deficits; Z87.442 Personal history of urinary calculi; Z90.710 Acquired absence of both cervix and uterus; Z92.21 Personal history of antineoplastic chemotherapy; Z92.3 Personal history of irradiation; Z95.820 Peripheral vascular angioplasty status with implants and grafts; Z96.653 Presence of artificial knee joint, bilateral; Z99.81 Dependence on supplemental oxygen; Z88.1 Allergy status to other antibiotic agents; Z88.3 Allergy status to other anti-infective agents; Z88.0 Allergy status to penicillin; Z91.013 Allergy to seafood; Z98.42 Cataract extraction status, left eye; Z98.41 Cataract extraction status, right eye
CPT/HCPCS: 51701; 70553; 71045; 71046; 72170; 80053; 81001; 83036; 84484; 85027; 87086; 93880; 94640; 94760; 95816; 96360; 96361; 96374; 96375; 99285

== ENCOUNTER → 2018-08-20 | Outpatient (CLI) | payer MEDICARE, OTHER ==
--- NOTE | 2018-08-22 07:36 | PE ---
EXAMINATION TYPE: PET CT fusion skull to thigh DATE OF EXAM: 08/20/2018 COMPARISON: CT abdomen and pelvis April 14, 2017. CT chest September 16, 2011. Prior PET/CT February 23, 2018 and older PET CTs back through January 02, 2017. HISTORY: Anal cancer progress study. Completed chemotherapy and radiation treatment March 08 7. TECHNIQUE: Following the intravenous administration of 14.16 mCi of F-18 FDG, whole body images are performed from the skull base to the midthigh. Images are reviewed on the computer in the coronal, a xial, and sagittal planes. Reconstructed rotating images are created on independent workstation and reviewed on the computer. A noncontrast CT is performed in conjunction with the PET scan. SCAN: Subsequent Scan FINDINGS: SKULL BASE AND NECK: No areas of suspicious hypermetabolic uptake. CHEST, MEDIASTINUM, AND HILAR REGION: No areas of suspicious hypermetabolic uptake. ABDOMEN AND PELVIS: Persistent soft tissue thickening at level of distal rectum/anus axial image 228 with mild hypermetabolic uptake, max SUV is 2.93. OSSEOUS STRUCTURES: No areas of abnormal hypermetabolic uptake. OTHER CT: Moderate to severe calcified plaque left carotid bulb is redemonstrated. There is scattered moderate to severe parenchymal scarring bilaterally. Groundglass opacity is presen t. There is cardiomegaly with moderate coronary artery calcification which is noted marked underlying coronary artery disease. Cholecystectomy clips are present. There is AAA measuring up to 3.3 cm transversely axial image 164. There is an aortobiiliac stent graft distal to this. Uterus is surgically absent or markedly atrophic . There is postsurgical change in the lower lumbar spine redemonstrated. Multilevel spurring in the spi ne superior to this is noted. IMPRESSION: Stable mild hypermetabolic uptake at level of distal rectum/anus. No new areas of abnorma l hypermetabolic uptake to suggest neoplastic progression or metastatic malignancy. Suspect diffuse b ilateral acute alveolar and interstitial edema and/or infiltrate on background chronic parenchymal ch anges. Correlate clinically.
== END | disposition home or self-care (01) ==
LOC: RADPETMAIN 09:21
PROVIDERS: ATTEND Internal Medicine Hematology & Oncology
DX: C21.1 Malignant neoplasm of anal canal (principal); R93.3 Abnormal findings on diagnostic imaging of other parts of digestive tract
CPT/HCPCS: 78815; A9552

== ENCOUNTER → 2018-09-02 | Outpatient (CLI) | payer MEDICARE, OTHER ==
--- NOTE | 2018-09-02 14:29 | MR ---
EXAMINATION TYPE: MR angio head wo con DATE OF EXAM: 09/02/2018 COMPARISON: MR brain same date and prior brain MRI 11/07/2013 HISTORY: SEIZURES TECHNIQUE: Time of flight images focusing on the [place] of [place] were performed without contrast. Th ree-dimensional reconstructions performed on an alternate workstation. FINDINGS: The right internal carotid artery is occluded as on previous exam. Posterior circulation is intact. Left internal carotid artery is patent. There is cross-filling present, or signal present al annabella the internal carotid artery on the right likely due to lower volume flow, hypoplastic A1 segment. Irregularity of the internal carotid artery on the left is noted near the origin of the ophthalmic a rtery, there may be some luminal irregularity or atheromatous change, focal outpouching at this level is again noted and stable measuring approximately 3 mm as on prior exam. No evident dissection or em bolus. IMPRESSION: Exam is stable. There is chronic right internal carotid artery occlusion. Suspect a small 3 mm aneury sm within the internal carotid artery left near the origin of the ophthalmic artery coursing medially which is stable, there is likely some atheromatous change at this level
--- NOTE | 2018-09-02 14:46 | MR ---
EXAMINATION TYPE: MR brain wo/w con DATE OF EXAM: 09/02/2018 COMPARISON: Prior MR brain 07/06/2018 HISTORY: Seizures and anal carcinoma TECHNIQUE: Multiplanar, multisequence images of the brain and brainstem is performed without and with IV contras t, utilizing 7.5 mL intravenous Gadavist . FINDINGS: There is motion on the exam. Diffusion weighted images demonstrate no evidence of a recent infarct or other diffusion abnormality. There is no extra-axial fluid collection or significant inte rval change in white matter signal abnormality. The ventricular system and cisternal spaces are norm al in size and appearance. The brain volume is age appropriate. Small focus of encephalomalacia pres ent inferior aspect of the right cerebellar hemisphere and in the periventricular location adjacent t o the frontal horn of the right lateral ventricle as on prior Midline structures demonstrate stable morphology, partially empty sella. Cortical atrophy is present . The craniocervical junction appears within normal limits. Post contrast images demonstrate no abno rmal enhancement. The dural venous sinuses appear patent. The visualized sinuses are remarkable for i nflammatory change in the ethmoid air cells and the globes are intact. Inflammatory change again note d in the mastoid air cells on the right. IMPRESSION: Essentially stable exam. Chronic small vessel ischemic changes, age related atrophy. No a bnormal enhancement to suggest metastatic disease.
== END ==
LOC: RADMRIMAIN 11:56
PROVIDERS: ATTEND Internal Medicine Hematology & Oncology
DX: I67.82 Cerebral ischemia (principal); G31.1 Senile degeneration of brain, not elsewhere classified; I65.21 Occlusion and stenosis of right carotid artery
CPT/HCPCS: 70544; 70553; A9585

== ENCOUNTER → 2018-11-17 | Outpatient (CLI) | payer MEDICARE, OTHER ==
--- NOTE | 2018-11-18 14:53 | MM ---
Reason for exam: screening (asymptomatic). Last mammogram was performed 3 years ago. History: Patient is postmenopausal and history of other cancer. Family history of breast cancer in grandmother at age 60. Excisional biopsy of the left breast. Took hormonal contraceptives for 2 months. Took estrogen for 17 years. Physical Findings: A clinical breast exam by your physician is recommended on an annual basis and results should be correlated with mammographic findings. MG 3D Screening Mammo W/Cad Bilateral CC and MLO view(s) were taken. Prior study comparison: November 25, 2015, bilateral MG 3d screening mammo w/cad. August 15, 2014, bilateral MG screening mammo w CAD. The breast tissue is heterogeneously dense. This may lower the sensitivity of mammography. Benign appearing bilateral calcifications. No suspicious abnormality. Post biopsy change on the left. No significant changes when compared with prior studies. ASSESSMENT: Benign, BI-RAD 2 RECOMMENDATION: Routine screening mammogram of both breasts in 1 year.
== END | disposition home or self-care (01) ==
LOC: RADMAMWWP 13:16
PROVIDERS: ATTEND Family Medicine
DX: Z12.31 Encounter for screening mammogram for malignant neoplasm of breast (principal)
CPT/HCPCS: 77063; 77067

== ENCOUNTER → 2019-02-24 | Outpatient (CLI) | payer MEDICARE, OTHER ==
--- NOTE | 2019-02-28 11:09 | PE ---
Nuclear medicine PET/CT HISTORY: Anal cancer, subsequent, C 21.1 Patient received 10.8 mCi F-18 FDG intravenously in delayed scanning was performed from the skull bas e through the mid thighs. Localization and attenuation correction CT scan was performed. Correlation to prior nuclear medicine PET/CT 08/20/2018 Neck and chest: No significant interval change. No suspicious hypermetabolic uptake or adenopathy armando ng the cervical regions, supraclavicular location, no change in the appearance of the mediastinum, th ere is prevascular and retrocaval pretracheal nodes present. Coronary artery calcifications are prese nt. No pleural pericardial effusion. Prominence of pulmonary arteries could be indicative of pulmonar y artery hypertension. Extensive interstitial lung disease changes again seen, mild uptake left upper lobe, SUV 2.3 associated with groundglass opacity. ABDOMEN: Patient is post cholecystectomy. No evident liver mass. Nonobstructive calculus present with in the right kidney as on prior. No retroperitoneal adenopathy. Patient shows infrarenal abdominal ao rtic aneurysm change, there is atheromatous change, suspect bilateral common iliac artery stents. High dense material present in the sigmoid colon near the rectosigmoid junction may represent stool. No pelvic adenopathy. Uterus and adnexal structures are not seen. No suspicious hypermetabolic uptake . Osseous structures: There is been interval right shoulder arthroplasty, uptake about the right should er arthroplasty is likely postoperative. Postoperative changes are again noted to the lumbar sacral s pine. IMPRESSION: Essentially stable exam. No suspicious hypermetabolic uptake. Interstitial lung disease. Right-sided nephrolithiasis. Abdominal aortic aneurysm. Coronary artery disease and possible pulmonar y artery hypertension. Postop changes.
== END | disposition home or self-care (01) ==
LOC: RADPETMAIN 13:32
PROVIDERS: ATTEND Internal Medicine Hematology & Oncology
DX: C21.1 Malignant neoplasm of anal canal (principal); J84.9 Interstitial pulmonary disease, unspecified; N20.0 Calculus of kidney; I71.4 Abdominal aortic aneurysm, without rupture; I25.10 Atherosclerotic heart disease of native coronary artery without angina pectoris; Z92.21 Personal history of antineoplastic chemotherapy; Z92.3 Personal history of irradiation
CPT/HCPCS: 78815; A9552

== ENCOUNTER → 2020-03-04 | Outpatient (CLI) | payer MEDICARE, OTHER | END | disposition home or self-care (01) | LOC: LABWHC1 14:22 | PROVIDERS: ATTEND Family Medicine | DX: R05 Cough (principal) | CPT/HCPCS: 87502; U0003; C9803 ==

== ENCOUNTER → 2020-03-22 | Outpatient (CLI) | payer MEDICARE, OTHER ==
[2020-03-22 10:14] LABS: Basophils # (A) 0.1 k/uL (0-0.2); Basophils % (A) 1 %; Eosinophils # (A) 0.1 k/uL (0-0.7); Eosinophils % (A) 1 %; HCT 41.9 % (34.0-46.0); HGB 13.7 gm/dL (11.4-16.0); Lymphocytes # (A) 2.9 k/uL (1.0-4.8); Lymphocytes % (A) 33 %; MCH 32.9 pg (25.0-35.0); MCHC 32.7 g/dL (31.0-37.0); MCV 100.5 fL (80.0-100.0); Mean Platelet Volume 7.3; Monocytes # (A) 0.4 k/uL (0-1.0); Monocytes % (A) 5 %; Neutrophils % (A) 58 %; Platelet Count 198 k/uL (150-450); RBC 4.17 m/uL (3.80-5.40); RDW 13.1 % (11.5-15.5); WBC 8.7 k/uL (3.8-10.6)
[2020-03-22 16:17] LABS: African American GFR (CKD) 65.6 (60.0-200.0); Albumin 4.3 g/dL (3.80-4.90); Albumin/Globulin Ratio 2.53 (1.60-3.17); Anion Gap 7.8 mmol/L (4.00-12.00); Calcium 9.2 mg/dL (8.7-10.3); Carbon Dioxide 23.2 mmol/L (21.6-31.8); Chol/HDL Ratio 2.42; Globulin 1.7 g/dL (1.6-3.3); LDL Cholesterol,Calculated 104.2 mg/dL (0.0-131.0); Non-African American GFR(CKD) 56.6 (60.0-200.0); Potassium 4.4 mmol/L (3.5-5.5); Total Bilirubin 0.3 mg/dL (0.2-1.2); VLDL Calculation 13.8 mg/dL (5.00-40.00)
[2020-03-22 16:33] LABS: Carbamazepine (Tegretol) 3.2 ug/mL (4.0-12.0)
[2020-03-22 17:22] LABS: Hemoglobin A1C 5.9 % (4.0-6.0)
== END | disposition home or self-care (01) ==
LOC: LABWHC1 08:52
PROVIDERS: ATTEND Family Medicine
DX: I73.9 Peripheral vascular disease, unspecified (principal); E11.49 Type 2 diabetes mellitus with other diabetic neurological complication; E03.2 Hypothyroidism due to medicaments and other exogenous substances; R25.1 Tremor, unspecified
CPT/HCPCS: 36415; 80053; 80061; 80156; 83036; 84439; 84443; 85025

== ENCOUNTER → 2020-03-22 | Outpatient (CLI) | payer MEDICARE, OTHER ==
--- NOTE | 2020-03-25 08:53 | MM ---
Reason for exam: screening (asymptomatic). Last mammogram was performed 1 year and 4 months ago. History: Patient is postmenopausal and history of other cancer. Family history of breast cancer in grandmother at age 60. Excisional biopsy of the left breast. Took hormonal contraceptives for 2 months. Took estrogen for 17 years. Physical Findings: A clinical breast exam by your physician is recommended on an annual basis and results should be correlated with mammographic findings. MG 3D Screening Mammo W/Cad Bilateral CC and MLO view(s) were taken. Prior study comparison: November 17, 2018, bilateral MG 3d screening mammo w/cad. November 25, 2015, bilateral MG 3d screening mammo w/cad. There are scattered fibroglandular densities. There are benign appearing round, linear calcifications bilaterally. There is no discrete abnormality. ASSESSMENT: Benign, BI-RAD 2 RECOMMENDATION: Routine screening mammogram of both breasts in 1 year.
== END | disposition home or self-care (01) ==
LOC: RADMAMWWP 08:54
PROVIDERS: ATTEND Family Medicine
DX: Z12.31 Encounter for screening mammogram for malignant neoplasm of breast (principal)
CPT/HCPCS: 77063; 77067

== ENCOUNTER → 2020-08-05 | Outpatient (CLI) | payer MEDICARE, OTHER ==
[2020-08-05 12:22] LABS: Basophils # (A) 0.1 k/uL (0-0.2); Basophils % (A) 1 %; Eosinophils # (A) 0.2 k/uL (0-0.7); Eosinophils % (A) 2 %; HCT 40.1 % (34.0-46.0); HGB 13.1 gm/dL (11.4-16.0); Lymphocytes # (A) 4.1 k/uL (1.0-4.8); Lymphocytes % (A) 40 %; MCHC 32.8 g/dL (31.0-37.0); MCV 97.5 fL (80.0-100.0); Mean Platelet Volume 7.8; Monocytes # (A) 0.5 k/uL (0-1.0); Monocytes % (A) 4 %; Neutrophils # (A) 5.4 k/uL (1.3-7.7); Neutrophils % (A) 51 %; Platelet Count 245 k/uL (150-450); RBC 4.11 m/uL (3.80-5.40); RDW 13.6 % (11.5-15.5); WBC 10.4 k/uL (3.8-10.6)
[2020-08-05 12:31] LABS: Potassium 4.6 mmol/L (3.5-5.1)
== END | disposition home or self-care (01) ==
LOC: LABPAT 09:49
PROVIDERS: ATTEND Surgery
DX: Z01.818 Encounter for other preprocedural examination (principal); I70.291 Other atherosclerosis of native arteries of extremities, right leg
CPT/HCPCS: 36415; 80051; 82565; 84520; 85025

== ENCOUNTER 2020-08-07 12:48 | Day surgery (SDC) | payer MEDICARE, OTHER ==
[2020-08-06 12:50] VITALS: BMI 30.1
[~2020-08-07 12:48] MED LIST changes: -LACTATED RINGERS 1,000 ML IV SCH; -LIDOCAINE 1% 20 ML VIAL (10MG/ML) FOR IV START INTRADERMA PRN; +SODIUM CHLORIDE 0.9% 1,000 ML in EMPTY BAG 1 BAG IV ONE
[2020-08-07 13:13] VITALS: RESP 18; TEMP 97.9
[2020-08-07] MEDS ORDERED: LIDOCAINE 1% INJ 10MG/ML (20 ML MDV) ONE (13:32)
[2020-08-07] MEDS ORDERED: MIDAZOLAM 2 MG/2 ML VIAL IVP ONE (13:40)
[2020-08-07] MEDS ORDERED: fentaNYL (PF) 50 MCG/ML 2 ML AMP ONE (13:44)
[2020-08-07] MEDS ORDERED: fentaNYL (PF) 50 MCG/ML 2 ML AMP IVP ONE (13:46)
[2020-08-07] MEDS: LIDOCAINE 1% INJ 10MG/ML (20 ML MDV) SQ ONE ×2 (13:50→13:58)
[2020-08-07 16:50] VITALS: BP 128/62; PULSE 76
--- NOTE | 2020-08-21 13:12 | P.OP ---
Date of Procedure: 08/21/20 Description of Procedure: Preoperative diagnosis: Peripheral arterial disease, abnormal EDENILSON Postoperative diagnosis: Same Procedure: [Ultrasound-guided left common femoral artery access Ultrasound guided right common femoral artery access Moderate conscious sedation] Surgeon: Vonda Espinal D.O. EBL: [Less than 10 mL] IV fluids: [See records] Urine output: [Not measured] Drains: [None] Complications: [None immediately apparent] Condition: [Stable to recovery] Operative indication and findings: [Patient is a 70-year-old female with peripheral arterial disease and abnormal ABIs. She has worsened disease of her right lower extremity and pain with ambulation. She also the significant history of back pain and previous fusion surgeries. She has a history of anorectal cancer requiring pelvic radiation Given her abnormal imaging, the plan was to go forward with an angiogram] Procedure in detail: [Patient was taken to the special suite and placed in supine position. Bilateral groins are prepped and draped in usual sterile fashion. A preprocedure timeout was performed, all parties are in agreement. IV sedation was utilized. The femoral vessels were very difficult to palpate at this level. Ultrasound was utilized and they were very difficult to visualize the left common femoral artery was identified and the skin overlying was anesthetized. A micropuncture needle was utilized and using ultrasound guidance the femoral artery was cannulated. The wire was advanced but met resistance t herefore was removed. There is still blood return from the needle. Again attempts were made to pass a wire which were unsuccessful. The wire and catheter were removed and pressure was held. Attempts were then made on the right-hand side using an ultrasound again there was a large collateral vessel that appeared to be feeding into the common femoral. Again the skin was anesthetized and the artery was accessed there was return of blood and the guidewire was passed. Also meeting significant resistance therefore this was abandoned. Pressure was held on the bilateral femorals. Upon imaging and fluoroscopy there was visualization of previous iliac stenting that the patient had forgotten about This time it was decided the patient would be benefited by a CT scan to evaluate for proper blood flow and surgical planning. Dressings were placed. She was transferred to recovery in stable condition having tolerated the procedure well
== END 2020-08-07 16:35 | disposition home or self-care (01) ==
LOC: CATHCVL 12:48
PROVIDERS: ATTEND Surgery
DX: I73.9 Peripheral vascular disease, unspecified (principal); Z20.822 Contact with and (suspected) exposure to COVID-19; Z53.9 Procedure and treatment not carried out, unspecified reason
CPT/HCPCS: 87635; J2250; J2001; J3010

== ENCOUNTER → 2020-08-14 | Outpatient (CLI) | payer MEDICARE, OTHER ==
--- NOTE | 2020-08-14 10:33 | CT ---
EXAMINATION TYPE: CT angio abd aorta w/Runoff DATE OF EXAM: 08/14/2020 HISTORY: Bilateral lower leg numbness & pain. History of anal cancer. CT DLP: 1532.3mGycm Automated Exposure Control for Dose Reduction was Utilized. CONTRAST: CTA scan of the abdomen and pelvis with bilateral lower extremity runoff is performed without oral an d with IV Contrast, patient injected with 100ml mL of Isovue 370. Three-D reconstructed images are cr eated on an independent workstation and reviewed. COMPARISON: CT abdomen and pelvis October 22, 2016 FINDINGS: VASCULAR: Satisfactory enhancement of the central pulmonary arteries and lower lobe branches. Slightly suboptimal study as noncontrast imaging was not performed which is normal protocol for vascu lar stenting. There is further atherosclerotic progression with severe mixed but predominantly noncal cified plaque in the infrarenal abdominal aorta. There is patent celiac artery and SMA without signif icant stenosis. There appears to be significant stenosis at origin of the left renal artery coronal i mages 38 and 39 series 11. Findings correlate with axial image 65 series 5. Patent EVAN is seen. There is AAA up to 3.5 cm transversely axial image 88 on current study. There is redemonstration of stent graft in the common iliac arteries bilaterally at origin. These rem ain patent. There is persistent moderate to severe mixed plaque remainder of common iliac arteries bi laterally through the branching point. There is more mild to moderate plaque in the external iliac ar teries bilaterally without significant stenosis. [id number] plaque extends into the internal iliac arteries bilaterally. There is more moderate to severe plaque at the bilateral groin or common femoral artery level. No greater than 50% stenosis is present. Severe mixed plaque extends into the right superficial femoral artery which becomes significantly rebecca rowed and then completely occluded shortly after its origin with some areas of minimal flow identifie d. There is some reconstitution into the distal superficial femoral artery with multifocal areas of n onvisualized flow or occlusion. There is improved reconstitution in the distal superficial femoral ar chong seen best on coronal image 39 series 11. There is persistent moderate to severe mixed plaque ext ending into the proximal popliteal artery. Popliteal artery shows less prominent plaque, suboptimal e valuation at level of knee prosthesis. No significant stenosis suspected until past the bifurcation a nd trifurcation where there is dense significant calcified plaque causing multilevel areas of stenosi s into the tibial peroneal trunk. There is poor three-vessel and two-vessel flow mid to left distal l eg level. Severe plaque at left common femoral artery extends into superficial and deep femoral artery branches . There is significant stenosis near complete occlusion shortly after origin of the left superficial femoral artery image 154 series 5. There is moderate mixed plaque along course of the superficial fem oral artery which has slightly irregular contour but remains patent. There is then complete occlusion distal superficial femoral artery near junction with proximal popliteal artery near coronal images 4 2 and 43 and seen axial image 223. There is reconstitution just past this point beginning near axial image 229. Remainder of the left popliteal artery shows mild plaque without significant stenosis. The re is then more severe calcified plaque at the bifurcation and trifurcation causing significant steno sis in the tibial peroneal trunk coronal image 44 reference. There is poor three-vessel and two-vesse l flow in the mid to distal leg though this is slightly better than the opposite right leg. LUNG BASES: Prominent bilateral hilar lymph nodes are noted, correlate clinically. Cardiomegaly is pr esent. At least moderate coronary artery calcification is noted. Moderate left atrial dilatation. LIVER/GB: Small calcification in the posterior right hepatic dome redemonstrated. Cholecystectomy cli ps are redemonstrated. PANCREAS: No significant abnormality is seen. SPLEEN: No significant abnormality is seen. ADRENALS: No significant abnormality is seen. KIDNEYS: There is 1.2 cm thin-walled cyst medially left kidney upper pole level series 5 image 63, in creased in size from prior study. Asymmetric left-sided increased cortical thinning noted. Symmetric cortical medullary uptake and excretion from both kidneys without hydronephrosis seen bilaterally BOWEL: No significant abnormality is seen. UTERUS/ADNEXA: Uterus is surgically absent. LYMPH NODES: No greater than 1cm abdominal or pelvic lymph nodes are appreciated. OSSEOUS STRUCTURES: Postsurgical change L4-S1 levels with posterior interpedicular rods and screws an d artificial disc material. Severe compression type fracture L1 level with sclerosis, there is some a nterior and posterior retropulsion into the spinal canal noted. Finding was present in 2019 PET/CT. M oderate to severe axial joint space loss with moderate acetabular spurring of both hips. Moderate to severe multilevel lateral spurring in the lower thoracic spine. Lower extremities: Metallic artifact from bilateral knee arthroplasty causes streak artifact. OTHER: No significant additional abnormality is seen. IMPRESSION: 1. Short segment common iliac arterial stents bilaterally remain patent. 2. New infrarenal AAA up to 3.5 cm. Severe mixed but probably noncalcified plaque in the infrarenal a bdominal aorta shows progression from 2017 study. 3. Severe plaque proximal left renal artery causing significant stenosis, correlate clinically for un controlled hypertension. 4. Severe bilateral peripheral arterial disease. Findings worsening right lower extremity versus left lower extremity. Complete occlusion of right superficial femoral artery shortly after origin with mi nimal reconstitution until distal segment. Complete occlusion over a short segment in the distal left superficial femoral artery. Significant stenosis in the tibial peroneal trunks bilaterally. Poor thr ee-vessel and two-vessel flow in the bilateral legs more severe in the right lower extremity versus l eft.
== END | disposition home or self-care (01) ==
LOC: RADCTMAIN 06:56
PROVIDERS: ATTEND Surgery
DX: I71.4 Abdominal aortic aneurysm, without rupture (principal); I73.9 Peripheral vascular disease, unspecified
CPT/HCPCS: 82565; 84520; 75635; 36415; Q9967

== ENCOUNTER 2020-10-15 09:55 | Inpatient (IN) | payer MEDICARE, OTHER ==
[2020-10-15] MEDS ORDERED: SODIUM CHLORIDE 0.9% 500 ML 500 ML IV STA (10:14)
[2020-10-15 10:40] LABS: Basophils # (A) 0.1 k/uL (0-0.2); Basophils % (A) 1 %; Eosinophils # (A) 0.2 k/uL (0-0.7); Eosinophils % (A) 2 %; HCT 37.1 % (34.0-46.0); HGB 12.5 gm/dL (11.4-16.0); Lymphocytes % (A) 35 %; MCH 31.5 pg (25.0-35.0); MCHC 33.6 g/dL (31.0-37.0); MCV 93.8 fL (80.0-100.0); Mean Platelet Volume 7.5; Monocytes # (A) 0.4 k/uL (0-1.0); Monocytes % (A) 4 %; Neutrophils # (A) 4.7 k/uL (1.3-7.7); Neutrophils % (A) 56 %; Platelet Count 237 k/uL (150-450); RBC 3.95 m/uL (3.80-5.40); RDW 13.3 % (11.5-15.5); WBC 8.4 k/uL (3.8-10.6)
--- NOTE | 2020-10-15 10:44 | ED ---
General Adult HPI - General Chief complaint: Dizziness Stated complaint: Dizziness Time Seen by Provider: 10/15/20 10:00 Source: patient, RN notes reviewed, old records reviewed Mode of arrival: wheelchair Limitations: no limitations - History of Present Illness Initial comments: 70-year-old female previous history of TIA and history of cerebral aneurysm which is being followed by neurosurgery presents for evaluation of dizziness. Patient's symptoms began this morning when she woke. She went to bed last night without complaint. She is on Plavix. She denies focal numbness or weakness in any limb. She states she had an unsteady gait prior to arrival. Patient denies chest pain or abdominal pain. She had not eaten any breakfast yet today or had any thing to drink. Denies alcohol or illicit drugs. Denies palpitations. Denies dysuria or hematuria. - Related Data Home Medications Medication Instructions Recorded Confirmed Clopidogrel [Plavix] 75 mg PO HS 08/15/16 10/15/20 Levothyroxine Sodium [Synthroid] 25 mcg PO DAILY 08/15/16 10/15/20 traZODone HCL [Desyrel] 100 mg PO HS 11/30/17 10/15/20 Atorvastatin [Lipitor] 80 mg PO HS 07/25/20 10/15/20 FLUoxetine HCL [PROzac] 40 mg PO DAILY 07/25/20 10/15/20 carBAMazepine [TEGretol XR] 100 mg PO Q12H 07/25/20 10/15/20 levETIRAcetam [Keppra] 500 mg PO BID 07/25/20 10/15/20 Albuterol Sulfate [Ventolin HFA] 2 puff INHALATION RT-QID PRN 10/15/20 10/15/20 Nystatin 100,000 Unit/gm Powd 1 applic TOPICAL BID 10/15/20 10/15/20 [Mycostatin Powder] Allergies Allergy/AdvReac Type Severity Reaction Status Date / Time erythromycin base Allergy Rash/Hives Verified 10/15/20 11:33 Fish Containing Products Allergy Anaphylaxis Verified 10/15/20 11:33 Penicillins Allergy Swelling Verified 10/15/20 11:33 shellfish derived [Shellfish] Allergy Anaphylaxis Verified 10/15/20 11:33 levofloxacin [From Levaquin] AdvReac Rash/Hives Verified 10/15/20 11:33 Review of Systems ROS Statement: Those systems with pertinent positive or pertinent negative responses have been documented in the HPI. ROS Other: All systems not noted in ROS Statement are negative. 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 TIA "many yrs ago", -circulation problems, overactive bladder, vascular ischemia. 2 aneurysms in brain and 1 in her abdomen, mild cold sx. last week now mostly resolved, fully vaccinated for covid History of Any Multi-Drug Resistant Organisms: None Reported Past Surgical History: Appendectomy, Back Surgery, Bladder Surgery, Cholecystectomy, Hysterectomy, Joint Replacement Additional Past Surgical History / Comment(s): Bilateral knee replacement, right shoulder rotator cuff x2,heather iliac femoral stents, bladder suspension x2, right Mediport 09/21/16; left lung biopsy; lymph node biopsy- left groin biopsy(malignant). heather carpal tunnel, heather cataracts, right shoulder replaced Past Anesthesia/Blood Transfusion Reactions: No Reported Reaction Additional Past Anesthesia/Blood Transfusion Reaction / Comment(s): Claustrophobic Past Psychological History: Depression Smoking Status: Current some day smoker Past Alcohol Use History: None Reported Past Drug Use History: None Reported - Past Family History Sister(s) Family Medical History: Cancer Additional Family Medical History / Comment(s): Lung cancer Brother(s) Family Medical History: Cancer Additional Family Medical History / Comment(s): Lung cancer Mother Additional Family Medical History / Comment(s): drugs and alcohol of Father Family Medical History: Cancer, Hyperlipidemia, Hypertension Additional Family Medical History / Comment(s): skin cancer General Exam Limitations: no limitations General appearance: alert, in no apparent distress Head exam: Present: atraumatic, normocephalic Eye exam: Present: normal appearance, PERRL ENT exam: Present: normal exam Neck exam: Present: normal inspection. Absent: tenderness, meningismus Respiratory exam: Present: normal lung sounds bilaterally. Absent: respiratory distress, wheezes Cardiovascular Exam: Present: regular rate, normal rhythm GI/Abdominal exam: Present: soft. Absent: distended, tenderness, guarding Extremities exam: Present: normal inspection, normal capillary refill. Absent: pedal edema, calf tenderness Neurological exam: Present: alert, oriented X3, CN II-XII intact, other (No limb weakness. Question right upper extremity ataxia although this is very minimal.). Absent: motor sensory deficit Psychiatric exam: Present: normal affect, normal mood Skin exam: Present: warm, dry, intact. Absent: cyanosis, diaphoretic Course Vital Signs 10/15/20 10/15/20 10/15/20 09:56 10:17 10:30 Temperature 98.0 F Pulse Rate 60 56 L 57 L Respiratory 18 16 18 Rate Blood Pressure 129/55 108/87 111/43 O2 Sat by Pulse 94 L 97 97 Oximetry 10/15/20 10/15/20 10/15/20 10:45 11:00 11:15 Temperature Pulse Rate 61 65 67 Respiratory 18 18 18 Rate Blood Pressure 105/43 110/56 92/82 O2 Sat by Pulse 96 96 98 Oximetry EKG Findings - EKG Comments: EKG Findings:: EKG: Sinus bradycardia, rate 53, MA interval 154, QRS duration 78, QTC 435, no ST segment elevation. Medical Decision Making - Medical Decision Making Patient is a 70-year-old female with onset dizziness when she woke this morning. She has good strength throughout, some very minimal right upper extremity a taxia. Both CT and CT angiography performed which are negative for any acute findings and is significant chronic findings unchanged. Patient has a normal CBC, normal CMP. She's given fluid hydration and an aspirin in the emergency department. She will be admitted for neurology consultation. Case discussed with Dr. Winkler who will admit. Patient has vertigo and limb ataxia. - Lab Data Result diagrams: 10/15/20 10:33 10/15/20 10:33 Lab Results 10/15/20 10/15/20 10/15/20 Range/Units 10:33 10:33 10:33 WBC 8.4 (3.8-10.6) k/uL RBC 3.95 (3.80-5.40) m/uL Hgb 12.5 (11.4-16.0) gm/dL Hct 37.1 (34.0-46.0) % MCV 93.8 (80.0-100.0) fL MCH 31.5 (25.0-35.0) pg MCHC 33.6 (31.0-37.0) g/dL RDW 13.3 (11.5-15.5) % Plt Count 237 (150-450) k/uL MPV 7.5 Neutrophils % 56 % Lymphocytes % 35 % Monocytes % 4 % Eosinophils % 2 % Basophils % 1 % Neutrophils # 4.7 (1.3-7.7) k/uL Lymphocytes # 3.0 (1.0-4.8) k/uL Monocytes # 0.4 (0-1.0) k/uL Eosinophils # 0.2 (0-0.7) k/uL Basophils # 0.1 (0-0.2) k/uL PT 10.1 (9.0-12.0) sec INR 0.9 (<1.2) APTT 22.4 (22.0-30.0) sec Sodium 136 L (137-145) mmol/L Potassium 4.5 (3.5-5.1) mmol/L Chloride 103 (98-107) mmol/L Carbon Dioxide 26 (22-30) mmol/L Anion Gap 7 mmol/L BUN 15 (7-17) mg/dL Creatinine 0.88 (0.52-1.04) mg/dL Est GFR (CKD-EPI)AfAm 77 (>60 ml/min/1.73 sqM) Est GFR (CKD-EPI)NonAf 67 (>60 ml/min/1.73 sqM) Glucose 129 H (74-99) mg/dL Calcium 9.1 (8.4-10.2) mg/dL Total Bilirubin 0.3 (0.2-1.3) mg/dL AST 25 (14-36) U/L ALT 21 (4-34) U/L Alkaline Phosphatase 72 (38-126) U/L Troponin I (0.000-0.034) ng/mL Total Protein 6.0 L (6.3-8.2) g/dL Albumin 3.7 (3.5-5.0) g/dL Urine Color Urine Appearance (Clear) Urine pH (5.0-8.0) Ur Specific [place] (1.001-1.035) Urine Protein (Negative) Urine Glucose (UA) (Negative) Urine Ketones (Negative) Urine Blood (Negative) Urine Nitrite (Negative) Urine Bilirubin (Negative) Urine Urobilinogen (<2.0) mg/dL Ur Leukocyte Esterase (Negative) Urine WBC (0-5) /hpf Ur Squamous Epith Cells (0-4) /hpf 10/15/20 10/15/20 Range/Units 10:33 11:32 WBC (3.8-10.6) k/uL RBC (3.80-5.40) m/uL Hgb (11.4-16.0) gm/dL Hct (34.0-46.0) % MCV (80.0-100.0) fL MCH (25.0-35.0) pg MCHC (31.0-37.0) g/dL RDW (11.5-15.5) % Plt Count (150-450) k/uL MPV Neutrophils % % Lymphocytes % % Monocytes % % Eosinophils % % Basophils % % Neutrophils # (1.3-7.7) k/uL Lymphocytes # (1.0-4.8) k/uL Monocytes # (0-1.0) k/uL Eosinophils # (0-0.7) k/uL Basophils # (0-0.2) k/uL PT (9.0-12.0) sec INR (<1.2) APTT (22.0-30.0) sec Sodium (137-145) mmol/L Potassium (3.5-5.1) mmol/L Chloride (98-107) mmol/L Carbon Dioxide (22-30) mmol/L Anion Gap mmol/L BUN (7-17) mg/dL Creatinine (0.52-1.04) mg/dL Est GFR (CKD-EPI)AfAm (>60 ml/min/1.73 sqM) Est GFR (CKD-EPI)NonAf (>60 ml/min/1.73 sqM) Glucose (74-99) mg/dL Calcium (8.4-10.2) mg/dL Total Bilirubin (0.2-1.3) mg/dL AST (14-36) U/L ALT (4-34) U/L Alkaline Phosphatase (38-126) U/L Troponin I <0.012 (0.000-0.034) ng/mL Total Protein (6.3-8.2) g/dL Albumin (3.5-5.0) g/dL Urine Color Light Yellow Urine Appearance Cloudy H (Clear) Urine pH 6.0 (5.0-8.0) Ur Specific [place] >1.050 H (1.001-1.035) Urine Protein Negative (Negative) Urine Glucose (UA) Negative (Negative) Urine Ketones Negative (Negative) Urine Blood Negative (Negative) Urine Nitrite Negative (Negative) Urine Bilirubin Negative (Negative) Urine Urobilinogen <2.0 (<2.0) mg/dL Ur Leukocyte Esterase Large H (Negative) Urine WBC 27 H (0-5) /hpf Ur Squamous Epith Cells 22 H (0-4) /hpf Disposition Clinical Impression: Dehydration, Vertigo Disposition: ADMITTED IP TO THIS [facility] Condition: Stable Is patient prescribed a controlled substance at d/c from ED?: No Referrals: None,Stated [Primary Care Provider] - 1-2 days Decision to Admit Reason: Admit from EC Decision Date: 10/15/20 Decision Time: 12:23
[2020-10-15] MEDS ORDERED: diphenhydrAMINE 50 MG/ML 1 ML VIAL IVP STA (10:47)
[2020-10-15] MEDS ORDERED: FAMOTIDINE 20 MG/2 ML VIAL IV STA (10:47)
[2020-10-15] MEDS ORDERED: methylPREDNISolone SOD SUCCI 125 MG/2 ML VIAL IV STA (10:47)
[2020-10-15 10:51] LABS: Albumin 3.7 g/dL (3.5-5.0); Calcium 9.1 mg/dL (8.4-10.2); Potassium 4.5 mmol/L (3.5-5.1); Total Bilirubin 0.3 mg/dL (0.2-1.3)
[2020-10-15 10:52] LABS: INR 0.9 (<1.2); Partial Thromboplastin Time 22.4 sec (22.0-30.0); Prothrombin Time 10.1 sec (9.0-12.0)
--- NOTE | 2020-10-15 11:26 | CT ---
EXAMINATION TYPE: CT brain wo con DATE OF EXAM: 10/15/2020 COMPARISON: 03/27/2017 HISTORY: Dizziness CT DLP: 1087.8 mGycm Automated exposure control for dose reduction was used. FINDINGS: Low density seen in the right basal ganglia compatible moderate generalized degenerative change. Elpidio t low-attenuation white matter are nonspecific but most of remote ischemia. Calvarium intact. Craniocervical junction maintained. Orbits are symmetric. Partially empty sella tur cica. Lucent area involving the right parietal calvarium likely secondary to prominent pacchionian gr anulation. MRI can be obtained for confirmation. IMPRESSION: 1. Degenerative and remote lacunar infarct right basal ganglia. Nonspecific white matter changes most typical of remote white matter ischemia. 2. Lucent area along the right parietal calvarium likely secondary to prominent pacchionian granulati on which could be confirmed with MRI. 3. Partially empty sella turcica
[2020-10-15 11:52] LABS: Appearance,Urine Cloudy (Clear); Bilirubin,Urine Negative (Negative); Blood,Urine Negative (Negative); Color,Urine Light Yellow; Glucose,Urine (UA) Negative (Negative); Ketones,Urine Negative (Negative); Leukocyte Esterase,Urine Large (Negative); Nitrite,Urine Negative (Negative); Protein,Urine Negative (Negative); Squamous Epithelial Cell,Urine 22 /hpf (0-4); Urobilinogen,Urine <2.0 mg/dL (<2.0); WBC,Urine 27 /hpf (0-5)
[2020-10-15 11:53] LABS: Specific Gravity,Urine >1.050 (1.001-1.035)
--- NOTE | 2020-10-15 11:54 | CT ---
EXAMINATION TYPE: CT angio head neck DATE OF EXAM: 10/15/2020 COMPARISON: None HISTORY: Dizziness CT DLP: 522.2 mGycm CONTRAST: Performed with IV Contrast, patient injected with 65 mL of Isovue 370. Combination Contrast CTA cervical carotids and [place] CTA cervical carotids with 3-D recons truction Contrast CTA of the cervical carotids was performed 3-D reconstruction imaging obtained at a separate workstation. Right carotid system: Mild plaque is seen of the right common carotid artery. There is severe plaque also noted at the carotid bulb and proximal ICA. Occlusion of the right ICA just distal to its take off. ECA is patent. Right vertebral artery appears unremarkable. Left carotid system: Mild plaque is seen of the left common carotid artery. There is moderate plaque also noted at the carotid bulb and proximal ICA. Estimated diameter reduction left ICA of greater t vail 90%. ECA is patent. Left vertebral artery appears unremarkable. IMPRESSION: 1. Occlusion of the right ICA just distal to its takeoff. 2. Estimated diameter reduction left ICA of greater than 90%. CTA [place] with 3-D reconstruction Contrast CTA of the [place] was performed 3-D reconstruction imaging obtained at a separate workstation. There is occlusion of the right ICA. Left ICA is patent. Vertebrobasilar system is also patent.. I d o not see evidence for sizable aneurysm or vascular malformation. Please note MRI provides greater s ensitivity and specificity. Visualized brain appears grossly unremarkable. IMPRESSION: 1. There is occlusion of the right ICA.
[2020-10-15] MEDS ORDERED: SODIUM CHLORIDE 0.9% 500 ML 500 ML IV ONE (12:18)
[2020-10-15] MEDS ORDERED: NALOXONE 0.4 MG/ML 1 ML VIAL IV PRN (12:18)
[2020-10-15] MEDS ORDERED: ASPIRIN 325 MG TAB PO STA (12:21)
[2020-10-15] MEDS: SODIUM CHLORIDE 0.9% 1,000 ML IV SCH (13:09)
[2020-10-15] MEDS: MECLIZINE 25 MG TAB PO PRN (14:35)
[2020-10-15] MEDS ORDERED: ALBUTEROL NEBULIZED 2.5 MG/3 ML INHALATION PRN (15:30)
--- NOTE | 2020-10-15 15:41 | P.HPIM ---
History of Present Illness Patient came in with complaints of mainly dizziness which is lightheadedness not the room spinning around. Patient denied any weakness or numbness. Patient denied any fever chills nausea vomiting abdominal pain. Patient does have history of TIA and history of cerebral aneurysm follows up with neurosurgery as an outpatient. ER physician evaluated the patient and he believes that there is right upper extremity ataxia although I did not appreciate any ataxia. There is no motor or sensory deficits. 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 Patient is definitely the osteopathic with severe peripheral vascular disease. Patient does state Plavix at home. Patient had stents in the peripheral vasculature. Patient still has cold and clammy bilateral lower extremities. She does have low normal blood pressure. REVIEW OF SYSTEMS: CONSTITUTIONAL: No fever, no malaise, no fatigue. HEENT: No recent visual problems or hearing problems. Denied any sore throat. CARDIOVASCULAR: No chest pain, orthopnea, PND, no palpitations, no syncope. PULMONARY: No shortness of breath, no cough, no hemoptysis. GASTROINTESTINAL: No diarrhea, no nausea, no vomiting, no abdominal pain. NEUROLOGICAL: No headaches, no weakness, no numbness. HEMATOLOGICAL: Denies any bleeding or petechiae. GENITOURINARY: Denies any burning micturition, frequency, or urgency. MUSCULOSKELETAL/RHEUMATOLOGICAL: Denies any joint pain, swelling, or any muscle pain. ENDOCRINE: Denies any polyuria or polydipsia. The rest of the 14-point review of systems is negative. PHYSICAL EXAMINATION: GENERAL: The patient is alert and oriented x3, not in any acute distress. Well developed, well nourished. HEENT: Pupils are round and equally reacting to light. EOMI. No scleral icterus. No conjunctival pallor. Normocephalic, atraumatic. No pharyngeal erythema. No thyromegaly. CARDIOVASCULAR: S1 and S2 present. No murmurs, rubs, or gallops. PULMONARY: Chest is clear to auscultation, no wheezing or crackles. ABDOMEN: Soft, nontender, nondistended, normoactive bowel sounds. No palpable organomegaly. MUSCULOSKELETAL: No joint swelling or deformity. EXTREMITIES: No cyanosis, clubbing, or pedal edema. Patient does have cold and clammy bilateral lower extremities NEUROLOGICAL: Gross neurological examination did not reveal any focal deficits. SKIN: No rashes. Assessment and plan Dizziness probably because of the low blood pressure will obtain TSH level will patient will be monitored will continue with the IV fluids consisting the patient is severely last hepatic and considering CTA findings last visit will be consulted neurology was consulted patient will undergo workup for TIA/stroke. Low possibility of cerebellar stroke. Patient is on Plavix which will be continued and aspirin was ordered from ER which will be continued as will obtain a lipid panel as well as an echocardiogram as a part of workup for TIA as well as dizziness. Patient will be on candy cutter hand. -Severe peripheral vascular disease with stents in the past -Continued nicotine use: Counseling was provided -History of cerebral aneurysm, follows up with the neurosurgery as an outpatient. [place]-COPD without any acute exacerbation -Type 2 diabetes mellitus -Sleep apnea -Hypothyroidism -Hyperlipidemia For above-mentioned chronic medical problems patient will be resumed and continued on appropriate home medications. Neurology will evaluate the patient. Considering the carotid occlusions I also consulted vascular surgery. 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 TIA "many yrs ago", -circulation problems, overactive bl adder, vascular ischemia. 2 aneurysms in brain and 1 in her abdomen, mild cold sx. last week now mostly resolved, fully vaccinated for covid History of Any Multi-Drug Resistant Organisms: None Reported Past Surgical History: Appendectomy, Back Surgery, Bladder Surgery, Cholecystectomy, Hysterectomy, Joint Replacement Additional Past Surgical History / Comment(s): Bilateral knee replacement, right shoulder rotator cuff x2,heather iliac femoral stents, bladder suspension x2, right Mediport 09/21/16; left lung biopsy; lymph node biopsy- left groin biopsy(malignant). heather carpal tunnel, heather cataracts, right shoulder replaced Past Anesthesia/Blood Transfusion Reactions: No Reported Reaction Additional Past Anesthesia/Blood Transfusion Reaction / Comment(s): Claustrophobic Past Psychological History: Depression Smoking Status: Current some day smoker Past Alcohol Use History: None Reported Past Drug Use History: None Reported - Past Family History Sister(s) Family Medical History: Cancer Additional Family Medical History / Comment(s): Lung cancer Brother(s) Family Medical History: Cancer Additional Family Medical History / Comment(s): Lung cancer Mother Additional Family Medical History / Comment(s): drugs and alcohol of Father Family Medical History: Cancer, Hyperlipidemia, Hypertension Additional Family Medical History / Comment(s): skin cancer Medications and Allergies Home Medications Medication Instructions Recorded Confirmed Type Clopidogrel [Plavix] 75 mg PO HS 08/15/16 10/15/20 History Levothyroxine Sodium [Synthroid] 25 mcg PO DAILY 08/15/16 10/15/20 History traZODone HCL [Desyrel] 100 mg PO HS 11/30/17 10/15/20 History Atorvastatin [Lipitor] 80 mg PO HS 07/25/20 10/15/20 History FLUoxetine HCL [PROzac] 40 mg PO DAILY 07/25/20 10/15/20 History carBAMazepine [TEGretol XR] 100 mg PO Q12H 07/25/20 10/15/20 History levETIRAcetam [Keppra] 500 mg PO BID 07/25/20 10/15/20 History Albuterol Sulfate [Ventolin HFA] 2 puff INHALATION RT-QID PRN 10/15/20 10/15/20 History Nystatin 100,000 Unit/gm Powd 1 applic TOPICAL BID 10/15/20 10/15/20 History [Mycostatin Powder] Allergies Allergy/AdvReac Type Severity Reaction Status Date / Time erythromycin base Allergy Rash/Hives Verified 10/15/20 11:33 Fish Containing Products Allergy Anaphylaxis Verified 10/15/20 11:33 Penicillins Allergy Swelling Verified 10/15/20 11:33 shellfish derived [Shellfish] Allergy Anaphylaxis Verified 10/15/20 11:33 levofloxacin [From Levaquin] AdvReac Rash/Hives Verified 10/15/20 11:33 Physical Exam Vitals: Vital Signs Temp Pulse Resp BP Pulse Ox 10/15/20 13:17 67 16 123/66 94 L 10/15/20 11:15 67 18 92/82 98 10/15/20 11:00 65 18 110/56 96 10/15/20 10:45 61 18 105/43 96 10/15/20 10:30 57 L 18 111/43 97 10/15/20 10:17 56 L 16 108/87 97 10/15/20 09:56 98.0 F 60 18 129/55 94 L Intake and Output 10/15/20 10/15/20 10/15/20 06:59 14:59 22:59 Other: Weight 79.379 kg Results CBC & Chem 7: 10/15/20 10:33 10/15/20 10:33 Labs: Abnormal Lab Results - Last 24 Hours (Table) 10/15/20 10/15/20 Range/Units 10:33 11:32 Sodium 136 L (137-145) mmol/L Glucose 129 H (74-99) mg/dL Total Protein 6.0 L (6.3-8.2) g/dL Urine Appearance Cloudy H (Clear) Ur Specific [place] >1.050 H (1.001-1.035) Ur Leukocyte Esterase Large H (Negative) Urine WBC 27 H (0-5) /hpf Ur Squamous Epith Cells 22 H (0-4) /hpf
[2020-10-15] MEDS: NYSTATIN 100,000 UNIT/GM POWD 15 GM TOPICAL SCH (20:42)
[2020-10-15] MEDS: CLOPIDOGREL 75 MG TAB PO SCH (20:42)
[2020-10-15] MEDS: ATORVASTATIN 80 MG TAB PO SCH (20:42)
[2020-10-15] MEDS: carBAMazepine 100 MG TAB.ER.12H PO SCH (20:43)
--- NOTE | 2020-10-15 21:05 | P.CNNES ---
History of Present Illness Consult date: 10/15/20 Requesting physician: Oswald Marte Reason for Consult: Vertigo ataxia History of Present Illness: Patient is a 70-year-old female with history of TIA and history of cerebral aneurysm, follows up with neurosurgery, came to the hospital today at 9:55 AM for evaluation of new onset dizziness/gait imbalance/gait ataxia. Patient states that yesterday she woke up in the morning at 8 AM. As soon as she stood up from the bed, she felt lightheaded, had to lean forwards and felt off balance, like a drunk. She had to hold onto door in the bed post, and staggered while walking to the bathroom. She was concerned as if she will fall. She hurried to the chair so she would not fall. She waited her symptoms to pass, but as the symptoms persisted, she was brought to the ER. She denies any nausea vomiting. Vital signs on arrival blood pressure 129/55, pulse rate 60, temperature 98.0. CT head showed degenerative and remote lacunar infarct right basal ganglia. Nonspecific white matter changes most typical of remote white matter ischemia. Lucent area along the right parietal calvarium likely secondary to prominent pacchionian granulation which could be confirmed with MRI. Partially empty sella turcica. On my review, paranasal sinuses and external auditory canal appears clear. CTA of the neck showed occlusion of the right ICA just distal to take off. Estimated [place] or reduction left ICA of greater than 90%. CTA of the head showed occlusion in the right ICA. Blood test shows normal CBC, PT/PT T, normal sodium 136, potassium 4.5, normal renal functions, hepatic panel, UA with large amount of leukocyte esterase and 27 WBCs. Patient does take Plavix 75 mg, Lipitor 80 mg, levothyroxine, trazodone 100 mg, fluoxetine 40 mg, carbamazepine 100 mg every 12 hours, Keppra 500 mg twice a day and albuterol. Patient states that she is unaware of long-standing history of right ICA occlusion and has partial occlusion on the left side but does not believe she was ever told it was 90%. Patient has diabetes for last 15 years, diet controlled. She has history of smoking a pack a day for 50 years, cutback to 1 pack of cigarettes a month since April 2020. Patient denies any history of vertigo ever in the past. She does have decreased hearing, but no tinnitus. She has history of fax buildup in the right ear. Patient also states that she had symptoms of UTI for which she was given Macrobid by her primary physician. She took about 4 days worth of medication but developed diarrhea and therefore stopped taking it. Patient lives alone, does not use any assistive device at home. Only when she goes out to get the mail, she uses her walker. Patient states her balance is still very off. If she is laying in the bed, she is fine, the movement of her head will bring on dizziness, but her gait is off constantly, since all this happened since yesterday. Review of Systems As described above in HPI. All other review of systems unremarkable. Denies any chest pain, abdominal pain. She has nausea, diarrhea yesterday. Denies any double vision. No fever or chills. No rash. 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 TIA "many yrs ago", -circulation problems, overactive bladder, vascular ischemia. 2 aneurysms in brain and 1 in her abdomen, mild cold sx. last week now mostly resolved, fully vaccinated for covid History of Any Multi-Drug Resistant Organisms: None Reported Past Surgical History: Appendectomy, Back Surgery, Bladder Surgery, Cholecystectomy, Hysterectomy, Joint Replacement Additional Past Surgical History / Comment(s): Bilateral knee replacement, right shoulder rotator cuff x2,heather iliac femoral stents, bladder suspension x2, right Mediport 09/21/16; left lung biopsy; lymph node biopsy- left groin biopsy(malignant). heather carpal tunnel, heather cataracts, right shoulder replaced Past Anesthesia/Blood Transfusion Reactions: No Reported Reaction Additional Past Anesthesia/Blood Transfusion Reaction / Comment(s): Claustrophobic Past Psychological History: Depression Smoking Status: Current some day smoker Past Alcohol Use History: None Reported Additional Past Alcohol Use History / Comment(s): QUIT SMOKING MAY 2016. SMOKED 1 PPD FOR 50 YEARS. started smoking again and has quit again Past Drug Use History: None Reported - Past Family History Sister(s) Family Medical History: Cancer Additional Family Medical History / Comment(s): Lung cancer Brother(s) Family Medical History: Cancer Additional Family Medical History / Comment(s): Lung cancer Mother Additional Family Medical History / Comment(s): drugs and alcohol of Father Family Medical History: Cancer, Hyperlipidemia, Hypertension Additional Family Medical History / Comment(s): skin cancer Medications and Allergies Home Medications Medication Instructions Recorded Confirmed Type Clopidogrel [Plavix] 75 mg PO HS 08/15/16 10/15/20 History Levothyroxine Sodium [Synthroid] 25 mcg PO DAILY 08/15/16 10/15/20 History traZODone HCL [Desyrel] 100 mg PO HS 11/30/17 10/15/20 History Atorvastatin [Lipitor] 80 mg PO HS 07/25/20 10/15/20 History FLUoxetine HCL [PROzac] 40 mg PO DAILY 07/25/20 10/15/20 History carBAMazepine [TEGretol XR] 100 mg PO Q12H 07/25/20 10/15/20 History levETIRAcetam [Keppra] 500 mg PO BID 07/25/20 10/15/20 History Albuterol Sulfate [Ventolin HFA] 2 puff INHALATION RT-QID PRN 10/15/20 10/15/20 History Nystatin 100,000 Unit/gm Powd 1 applic TOPICAL BID 10/15/20 10/15/20 History [Mycostatin Powder] Allergies Allergy/AdvReac Type Severity Reaction Status Date / Time erythromycin base Allergy Rash/Hives Verified 10/15/20 11:33 Fish Containing Products Allergy Anaphylaxis Verified 10/15/20 11:33 Penicillins Allergy Swelling Verified 10/15/20 11:33 shellfish derived [Shellfish] Allergy Anaphylaxis Verified 10/15/20 11:33 levofloxacin [From Levaquin] AdvReac Rash/Hives Verified 10/15/20 11:33 Physical Examination - Vital Signs Vital Signs: Vital Signs Temp Pulse Pulse Resp BP BP Pulse Ox 10/15/20 17:00 98.0 F 70 14 131/77 96 10/15/20 16:49 97.9 F 65 16 127/60 96 10/15/20 16:34 64 18 110/53 96 10/15/20 13:17 67 16 123/66 94 L 10/15/20 11:15 67 18 92/82 98 10/15/20 11:00 65 18 110/56 96 10/15/20 10:45 61 18 105/43 96 10/15/20 10:30 57 L 18 111/43 97 10/15/20 10:17 56 L 16 108/87 97 10/15/20 09:56 98.0 F 60 18 129/55 94 L Intake and Output 10/15/20 10/15/20 10/15/20 06:59 14:59 22:59 Other: Weight 79.379 kg 79.379 kg Patient is an elderly female, very pleasant, in no acute distress. Patient is alert awake oriented to time place and person. Speech and language functions are normal. Attention, concentration and fund of knowledge is adequate. On cranial examination, pupils are round and reacting to light, visual valentin are full on confrontation with no neglect on double simultaneous stimulation. She has mild nonsustained sporadic nystagmus looking to the right. Her extraocular muscles are intact. Face is symmetric, tongue protrudes to the midline. Palatal elevation and sensation normal, hearing is mild to moderately decreased and shoulder shrug normal, facial sensation normal. On muscle strength testing, there is no pronator drift and the strength is norm al in arms and legs distally and proximally. Deep tendon reflexes are symmetric 1-1+, and plantars downgoing. Sensory to touch is equal with no neglect. Cerebellar function showed no ataxia for [id number] testing. No dysdiadochokinesia. Tone and bulk of muscles normal. Gait patient appears very imbalance, requires an assist of at least 1. Her balance is still very off. On general examination, there is no carotid bruit or murmur, S1-S2 audible. Abdomen is soft nontender. Chest is clear. No edema. Results - Laboratory Findings CBC and BMP: 10/15/20 10:33 10/15/20 10:33 Abnormal Lab Findings: Abnormal Labs 10/15/20 10/15/20 10:33 11:32 Sodium 136 L Glucose 129 H Total Protein 6.0 L Urine Appearance Cloudy H Ur Specific [place] >1.050 H Ur Leukocyte Esterase Large H Urine WBC 27 H Ur Squamous Epith Cells 22 H Assessment and Plan Assessment: * New onset gait ataxia/imbalance, unclear etiology. Differential is between peripheral vestibular dysfunction like labyrinthitis (related to recent UTI/ diarrhea) versus central cause. * Chronic right ICA occlusion. Left ICA stenosis 90%. * Hypertension * Diabetes per patient, diet controlled, last A1c 5.4 * Chronic tobacco use of 50 pack years, decreased significantly since April 2020. * Peripheral arterial disease. Plan: * MRI of the brain to evaluate for CVA. * Vascular surgical consultation for severe left ICA stenosis of 90%. Patient does have known chronic right ICA occlusion. * Await 2-D echo * We will check hemoglobin A1c and fasting lipid panel. * B12 folate. * Continue Plavix 75 mg daily.
[2020-10-15] MEDS: traZODone HCL 100 MG TAB PO SCH (21:21)
[2020-10-15] MEDS: levETIRAcetam 500 MG TAB PO SCH (21:21)
[2020-10-16] MEDS: SODIUM CHLORIDE 0.9% 1,000 ML IV SCH ×2 (03:59→20:25)
[2020-10-16] MEDS: LEVOTHYROXINE 25 MCG TAB PO SCH (05:55)
[2020-10-16] MEDS: FLUoxetine HCL 20 MG CAP PO SCH (08:09)
[2020-10-16] MEDS: carBAMazepine 100 MG TAB.ER.12H PO SCH ×2 (08:09→20:30)
[2020-10-16] MEDS: levETIRAcetam 500 MG TAB PO SCH ×2 (08:09→20:30)
--- NOTE | 2020-10-16 08:59 | MR ---
EXAMINATION TYPE: MR brain wo con DATE OF EXAM: 10/16/2020 COMPARISON: CT brain 10/15/2020 HISTORY: Ataxia, dizziness CONTRAST: Performed utilizing 0 mL intravenous Gadavist gadolinium contrast. TECHNIQUE: Multiplanar, multiecho imaging on a 3.0 [place] magnet is performed through the brain. Stud y is performed within 24 hours of arrival to the hospital. The craniovertebral junction is normal. The pituitary is normal. Diffusion-weighted imaging is performed. No abnormal hyperintensity is present to suggest an acute i ntracranial infarct or acute ischemic change. There is scattered periventricular deep white matter changes are best visualized on the inversion rec overy weighted sequences. Subcortical white matter changes are present. Some white matter changes wit hin the sully. Findings are nonspecific but can be related to microvascular ischemic change Ventricles and sulci are prominent for the patient age. IMPRESSIONS: 1. Atrophy with scattered deep white matter changes. Findings can be compatible with chronic white ma tter ischemic changes.
[2020-10-16 09:37] LABS: Folate, Serum >24.0 ng/mL
[2020-10-16] MEDS: MECLIZINE 25 MG TAB PO PRN (10:03)
[2020-10-16] MEDS: NYSTATIN 100,000 UNIT/GM POWD 15 GM TOPICAL SCH ×2 (10:04→23:19)
[2020-10-16] MEDS: ACETAMINOPHEN TAB 325 MG TAB PO PRN (14:49)
--- NOTE | 2020-10-16 16:14 | P.PN ---
Subjective Progress Note Date: 10/16/20 Patient was seen for a follow-up. Patient states that she is slightly better but still significant problem with gait imbalance. No new focal symptoms. Objective - Vital Signs Vital signs: Vital Signs Temp 98.4 F 10/16/20 15:00 Pulse 70 10/16/20 15:00 Resp 18 10/16/20 15:00 BP 122/69 10/16/20 15:00 Pulse Ox 92 L 10/16/20 15:00 Intake & Output 10/15/20 10/16/20 10/16/20 18:59 06:59 18:59 Intake Total 600 600 Balance 600 600 Weight 79.379 kg Intake: IV 600 Sodium Chloride 0.9% 1, 600 000 ml @ 75 mls/hr IV . [id number] RUTH Rx#:[id number] Intake, IV Titration 600 Amount Sodium Chloride 0.9% 1, 600 000 ml @ 75 mls/hr IV . [id number] RUTH Rx#:[id number] Other: Voiding Method Bedside Commode # Voids 1 - Exam Patient's mental status speech and language functions are normal. Muscle strength is normal. No ataxia for [id number] testing. - Labs CBC & Chem 7: 10/15/20 10:33 10/15/20 10:33 Assessment and Plan Assessment: * New onset gait ataxia/imbalance, unclear etiology. Differential is between peripheral vestibular dysfunction like labyrinthitis (related to recent UTI/diarrhea) versus central cause. * Chronic right ICA occlusion. Left ICA stenosis 90%. * Hypertension * Diabetes per patient, diet controlled, last A1c 5.4 * Chronic tobacco use of 50 pack years, decreased significantly since April 2020. * Peripheral arterial disease. Plan: * MRI of the brain to evaluate for CVA. * Await Vascular surgical consultation for severe left ICA stenosis of 90%. Patient does have known chronic right ICA occlusion. * 2-D echo completed, results pending. * B12 is low 270, we'll start B12 replacement. Folic acid is normal > 24.0. * Continue Plavix 75 mg daily. * PT OT evaluate gait.
--- NOTE | 2020-10-16 16:54 | P.PN ---
Subjective Patient came in with complaints of mainly dizziness which is lightheadedness not the room spinning around. Patient denied any weakness or numbness. Patient denied any fever chills nausea vomiting abdominal pain. Patient does have history of TIA and history of cerebral aneurysm follows up with neurosurgery as an outpatient. ER physician evaluated the patient and he believes that there is right upper extremity ataxia although I did not appreciate any ataxia. There is no motor or sensory deficits. 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 Patient is definitely the osteopathic with severe peripheral vascular disease. Patient does state Plavix at home. Patient had stents in the peripheral vasculature. Patient still has cold and clammy bilateral lower extremities. She does have low normal blood pressure. 10/16/2020 Patient had the low B12 level because of which patient was started on B12 supplementation. Patient did have vertigo doesn't have any lightheadedness, patient appears to have labyrinthitis doesn't appear to have be BPPV did perform Dicks- Halspike maneuver which is a negative for BPPV. Patient had an MRI which is negative for any stroke. Patient had to be evaluated by physical therapy and outpatient therapy and it to be evaluated by vascular surgery constraining up patient has bilateral carotid occlusions patient will need a plastic surgery evaluation. Constitutional: Denied any fatigue denied any fever. Cardio vascular: denied any chest pain, palpitations Gastrointestinal denied any nausea vomiting Pulmonary: Denied any shortness of breath cough Neurologic denied any new focal deficits All inpatient medications were reviewed and appropriate changes in these medications as dictated in the interval history and assessment and plan. PHYSICAL EXAMINATION: GENERAL: The patient is alert and oriented x3, not in any acute distress. Well developed, well nourished. HEENT: Pupils are round and equally reacting to light. EOMI. No scleral icterus. No conjunctival pallor. Normocephalic, atraumatic. No pharyngeal erythema. No thyromegaly. CARDIOVASCULAR: S1 and S2 present. No murmurs, rubs, or gallops. PULMONARY: Chest is clear to auscultation, no wheezing or crackles. ABDOMEN: Soft, nontender, nondistended, normoactive bowel sounds. No palpable organomegaly. MUSCULOSKELETAL: No joint swelling or deformity. EXTREMITIES: No cyanosis, clubbing, or pedal edema. Patient does have cold and clammy bilateral lower extremities NEUROLOGICAL: Gross neurological examination did not reveal any focal deficits. SKIN: No rashes. Assessment and plan -Vertigo: Secondary to labyrinthitis, continue with weekly zine, symptomatic treatment PT and OT at evaluated the patient -Bilateral carotid occlusions vascular surgery will evaluate the patient -Severe peripheral vascular disease with stents in the past -Continued nicotine use: Counseling was provided -History of cerebral aneurysm, follows up with the neurosurgery as an outpatient. COPD without any acute exacerbation -Type 2 diabetes mellitus -Sleep apnea -Hypothyroidism -Hyperlipidemia For above-mentioned chronic medical problems patient will be resumed and continued on appropriate home medications. Neurology will evaluate the patient. Considering the carotid occlusions I also consulted vascular surgery. Objective - Vital Signs Vital signs: Vital Signs Temp 98.4 F 10/16/20 15:00 Pulse 70 10/16/20 15:00 Resp 18 10/16/20 15:00 BP 122/69 10/16/20 15:00 Pulse Ox 92 L 10/16/20 15:00 Intake & Output 10/15/20 10/16/20 10/16/20 18:59 06:59 18:59 Intake Total 600 600 Balance 600 600 Weight 79.379 kg Intake: IV 600 Sodium Chloride 0.9% 1, 600 000 ml @ 75 mls/hr IV . [id number] [facility] Rx#:[id number] Intake, IV Titration 600 Amount Sodium Chloride 0.9% 1, 600 000 ml @ 75 mls/hr IV . [id number] [facility] Rx#:[id number] Other: Voiding Method Bedside Commode # Voids 1 - Labs CBC & Chem 7: 10/15/20 10:33 10/15/20 10:33
--- NOTE | 2020-10-16 17:31 | ECHOF ---
Referral Reason:Stroke/TIA MEASUREMENTS -------- HEIGHT: 160.0 cm WEIGHT: 79.4 kg BP: 148/55 RVIDd: 2.3 cm (< 3.3) IVSd: 1.1 cm (0.6 - 1.1) LVIDd: 3.6 cm (3.9 - 5.3) LVPWd: 1.6 cm (0.6 - 1.1) IVSs: 1.6 cm LVIDs: 2.0 cm LVPWs: 2.2 cm LAESV Index (A-L): 51.14 ml/m Ao Diam: 2.0 cm (2.0 - 3.7) AV Cusp: 1.2 cm (1.5 - 2.6) MV EXCURSION: 17.333 mm (> 18.000) MV EF SLOPE: 59 mm/s (70 - 150) EPSS: 0.4 cm MV E Juan: 1.42 m/s MV DecT: 329 ms MV A Juan: 1.11 m/s MV E/A Ratio: 1.28 AR PHT: 523 ms RAP: 5.00 mmHg RVSP: 43.23 mmHg FINDINGS -------- Sinus rhythm. This was a technically difficult study with suboptimal apical views. The left ventricular size is normal. There is mild concentric left ventricular hypertrophy. Overa ll left ventricular systolic function is normal with, an EF between 55 - 60 %. Increased Lap Grade II Diastolic Dysfunction. The right ventricle is normal in size. LA is severely dilated >40 ml/m2 The right atrial size is normal. 5.0mg of Lumason was utilized for enhancement of images Interatrial and interventricular septum intact. There is mild aortic valve sclerosis. There is mild aortic regurgitation. There is no evidence of aortic stenosis. Mild mitral annular calcification present. Moderate mitral regurgitation is present. Moderate tricuspid regurgitation present. There is moderate pulmonary hypertension. The right elton tricular systolic pressure, as measured by Doppler, is 43.23mmHg. There is no pulmonic regurgitation present. The aortic root size is normal. IVC Not well visulized. There is no pericardial effusion. CONCLUSIONS -------- 1. The left ventricular size is normal. 2. There is mild concentric left ventricular hypertrophy. 3. Overall left ventricular systolic function is normal with, an EF between 55 - 60 %. 4. Increased Lap Grade II Diastolic Dysfunction. 5. LA is severely dilated >40 ml/m2 6. There is mild aortic valve sclerosis. 7. There is mild aortic regurgitation. 8. Mild mitral annular calcification present. 9. Moderate mitral regurgitation is present. 10. Moderate tricuspid regurgitation present. 11. There is moderate pulmonary hypertension. 12. The right ventricular systolic pressure, as measured by Doppler, is 43.23mmHg. IT INFRASTRUCTURE ARCHITECT: Mari Frias RDCS
[2020-10-16] MEDS: traZODone HCL 100 MG TAB PO SCH (20:30)
[2020-10-16] MEDS: CLOPIDOGREL 75 MG TAB PO SCH (20:30)
[2020-10-16] MEDS: CYANOCOBALAMIN 1,000 MCG/ML 1 ML VIAL IM SCH (20:30)
[2020-10-16] MEDS: ATORVASTATIN 80 MG TAB PO SCH (20:30)
[2020-10-17] MEDS: SODIUM CHLORIDE 0.9% 1,000 ML IV SCH (04:30)
[2020-10-17] MEDS: LEVOTHYROXINE 25 MCG TAB PO SCH (05:57)
[2020-10-17] MEDS: carBAMazepine 100 MG TAB.ER.12H PO SCH ×2 (07:39→19:34)
[2020-10-17] MEDS: CYANOCOBALAMIN 1,000 MCG/ML 1 ML VIAL IM SCH (07:39)
[2020-10-17] MEDS: levETIRAcetam 500 MG TAB PO SCH ×2 (07:40→19:35)
[2020-10-17] MEDS: FLUoxetine HCL 20 MG CAP PO SCH (07:40)
[2020-10-17] MEDS: NYSTATIN 100,000 UNIT/GM POWD 15 GM TOPICAL SCH ×2 (07:41→19:35)
[2020-10-17] MEDS: ACETAMINOPHEN TAB 325 MG TAB PO PRN (09:42)
[2020-10-17] MEDS: MECLIZINE 25 MG TAB PO PRN (09:43)
[2020-10-17 11:12] LABS: LDL Cholesterol,Calculated 77.2 mg/dL (0.0-131.0); VLDL Calculation 20.8 mg/dL (5.00-40.00)
--- NOTE | 2020-10-17 16:03 | P.PN ---
Subjective Patient came in with complaints of mainly dizziness which is lightheadedness not the room spinning around. Patient denied any weakness or numbness. Patient denied any fever chills nausea vomiting abdominal pain. Patient does have history of TIA and history of cerebral aneurysm follows up with neurosurgery as an outpatient. ER physician evaluated the patient and he believes that there is right upper extremity ataxia although I did not appreciate any ataxia. There is no motor or sensory deficits. 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 Patient is definitely the osteopathic with severe peripheral vascular disease. Patient does state Plavix at home. Patient had stents in the peripheral vasculature. Patient still has cold and clammy bilateral lower extremities. She does have low normal blood pressure. 10/16/2020 Patient had the low B12 level because of which patient was started on B12 supplementation. Patient did have vertigo doesn't have any lightheadedness, patient appears to have labyrinthitis doesn't appear to have be BPPV did perform Dicks- Halspike maneuver which is a negative for BPPV. Patient had an MRI which is negative for any stroke. Patient had to be evaluated by physical therapy and outpatient therapy and it to be evaluated by vascular surgery constraining up patient has bilateral carotid occlusions patient will need a plastic surgery evaluation. 10/17/2020 Patient is awaiting the evaluation by vascular surgery. Patient has bilateral carotid occlusion. Patient's symptoms of the vertigo improved. Still has some vertigo. Further course of hospitalization depending on vascular surgery recommendations Constitutional: Denied any fatigue denied any fever. Cardio vascular: denied any chest pain, palpitations Gastrointestinal denied any nausea vomiting Pulmonary: Denied any shortness of breath cough Neurologic denied any new focal deficits All inpatient medications were reviewed and appropriate changes in these medications as dictated in the interval history and assessment and plan. PHYSICAL EXAMINATION: GENERAL: The patient is alert and oriented x3, not in any acute distress. Well developed, well nourished. HEENT: Pupils are round and equally reacting to light. EOMI. No scleral icterus. No conjunctival pallor. Normocephalic, atraumatic. No pharyngeal erythema. No thyromegaly. CARDIOVASCULAR: S1 and S2 present. No murmurs, rubs, or gallops. PULMONARY: Chest is clear to auscultation, no wheezing or crackles. ABDOMEN: Soft, nontender, nondistended, normoactive bowel sounds. No palpable organomegaly. MUSCULOSKELETAL: No joint swelling or deformity. EXTREMITIES: No cyanosis, clubbing, or pedal edema. Patient does have cold and clammy bilateral lower extremities NEUROLOGICAL: Gross neurological examination did not reveal any focal deficits. SKIN: No rashes. Assessment and plan -Vertigo: Secondary to labyrinthitis, continue with meclizine, symptomatic treatment. -Bilateral carotid occlusions vascular surgery will evaluate the patient -Severe peripheral vascular disease with stents in the past -Continued nicotine use: Counseling was provided -History of cerebral aneurysm, follows up with the neurosurgery as an outpatient. COPD without any acute exacerbation -Type 2 diabetes mellitus -Sleep apnea -Hypothyroidism -Hyperlipidemia Objective - Vital Signs Vital signs: Vital Signs Temp 97.7 F 10/17/20 15:00 Pulse 62 10/17/20 15:00 Resp 18 10/17/20 15:00 BP 108/52 10/17/20 15:00 Pulse Ox 96 10/17/20 15:00 Intake & Output 10/16/20 10/17/20 10/17/20 18:59 06:59 18:59 Intake Total 600 480 Balance 600 480 Intake: IV 600 Sodium Chloride 0.9% 1, 600 000 ml @ 75 mls/hr IV . [id number] [facility] Rx#:[id number] Oral 480 Other: Voiding Method Bedside Commode Bedside Commode Bedside Commode # Voids 2 1 - Labs CBC & Chem 7: 10/15/20 10:33 10/15/20 10:33
[2020-10-17] MEDS: ATORVASTATIN 80 MG TAB PO SCH (19:34)
[2020-10-17] MEDS: traZODone HCL 100 MG TAB PO SCH (19:35)
[2020-10-17] MEDS: CLOPIDOGREL 75 MG TAB PO SCH (19:35)
[2020-10-18] MEDS: LEVOTHYROXINE 25 MCG TAB PO SCH (05:53)
[2020-10-18 07:35] VITALS: TEMP 98.2
[2020-10-18] MEDS: CYANOCOBALAMIN 1,000 MCG/ML 1 ML VIAL IM SCH (10:00)
[2020-10-18] MEDS: carBAMazepine 100 MG TAB.ER.12H PO SCH (10:00)
--- NOTE | 2020-10-18 10:00 | P.PN ---
Subjective Progress Note Date: 10/17/20 Patient was seen for a follow-up. Patient's daughter was also present. Patient states that she is about 50-65% back to normal. No new focal symptoms. Objective - Vital Signs Vital signs: Vital Signs Temp 97.7 F 10/17/20 15:00 Pulse 62 10/17/20 15:00 Resp 18 10/17/20 15:00 BP 108/52 10/17/20 15:00 Pulse Ox 96 10/17/20 15:00 Intake & Output 10/16/20 10/17/20 10/17/20 18:59 06:59 18:59 Intake Total 600 480 Balance 600 480 Intake: IV 600 Sodium Chloride 0.9% 1, 600 000 ml @ 75 mls/hr IV . [id number] [facility] Rx#:[id number] Oral 480 Other: Voiding Method Bedside Commode Bedside Commode Bedside Commode # Voids 2 1 - Exam Patient's mental status speech and language functions are normal. Muscle strength is normal. No ataxia for [id number] testing. - Labs CBC & Chem 7: 10/15/20 10:33 10/15/20 10:33 Assessment and Plan Assessment: * New onset gait ataxia/imbalance, unclear etiology. Probable labyrinthitis related to recent UTI/diarrhea versus central cause less likely. MRI negative for acute stroke. * Chronic right ICA occlusion. Left ICA stenosis 90%. * Hypertension * Diabetes per patient, diet controlled, last A1c 5.4 * Chronic tobacco use of 50 pack years, decreased significantly since April 2020. * Peripheral arterial disease. Plan: * MRI of the brain was performed 10/16/2020, showed atrophy with scattered deep white matter changes. Findings can be compatible with chronic white matter ischemic changes. * Await Vascular surgical consultation for severe left ICA stenosis of 90%. Pat ient does have known chronic right ICA occlusion. * 2-D echo revealed normal left-ventricular size. Mild concentric LVH. EF is between 55-60%. Left atrium is severely dilated. Mild aortic valve scl erosis, mild AR. Moderate MR. * B12 is low 270, continue B12 replacement. Folic acid is normal > 24.0. * Continue Plavix 75 mg daily. * PT OT evaluate gait.
[2020-10-18] MEDS: levETIRAcetam 500 MG TAB PO SCH (10:01)
[2020-10-18] MEDS: FLUoxetine HCL 20 MG CAP PO SCH (10:01)
[2020-10-18] MEDS: NYSTATIN 100,000 UNIT/GM POWD 15 GM TOPICAL SCH (10:02)
--- NOTE | 2020-10-18 12:23 | US ---
EXAMINATION TYPE: US carotid duplex BILAT DATE OF EXAM: 10/18/2020 COMPARISON: US & CT CT angiogram of the head and neck 10/15/2020 CLINICAL HISTORY: carotid stenosis. Stenosis, known right side ICA occlusion EXAM MEASUREMENTS: RIGHT: Peak Systolic Velocity (PSV) cm/sec ----- Right CCA: 57.8 ----- Right ICA: Occluded ----- Right ECA: 177 ICA/CCA ratio: -- RIGHT: End Diastole cm/sec ----- Right CCA: 0.0 ----- Right ICA: Occluded ----- Right ECA: 0.0 LEFT: Peak Systolic Velocity (PSV) cm/sec ----- Left CCA: 92.4 ----- Left ICA: 135 ----- Left ECA: 80.6 ICA/CCA ratio: 1.5 LEFT: End Diastole cm/sec ----- Left CCA: 16.1 ----- Left ICA: 30.3 ----- Left ECA: 19.5 VERTEBRALS (direction of flow): Right Vertebral: Antegrade Left Vertebral: Antegrade Rhythm: Normal Right ICA occluded, Moderate to severe atherosclerotic plaque at the left common carotid artery bif urcation. This is suggestive of 50-69% stenosis of the left internal carotid artery. IMPRESSION: 1. The right internal carotid artery is occluded. 2. There is hemodynamically significant stenosis. Moderate to severe atherosclerotic plaque at the le ft common carotid artery bifurcation. With hemodynamic numbers there is approximately 50-69% stenosis however the appearance with atherosclerotic plaque is greater. On recent prior CTA, there is estimat ed left ICA reduction in diameter of greater than 90%. Vascular surgery consultation is recommended. Criteria for Assigning % of Stenosis / Diameter reduction (Estimation based on the indirect measurements of the internal carotid artery velocities (ICA PSV). 1. Normal (no stenosis)=ICA PSV < 125 cm/s: ratio < 2.0: ICA EDV<40 cm/s. 2. Less than 50% stenosis=ICA PSV < 125 cm/s: ratio < 2.0: ICA EDV<40 cm/s. 3. 50 to 69% stenosis=ICA PSV of 125 to 230 cm/s: ration 2.0 ? 4.0: ICA EDV 40-100 cm/s. 4. Greater than 70% stenosis to near occlusion= ICA PSV > 230 cm/s: ratio > 4.0: ICA EDV > 100 cm/s. 5. Near occlusion= ICA PSV velocities may be low or undetectable: variable ratio and ICA EDV. 6. Total occlusion=unable to detect flow.
[2020-10-18 14:40] VITALS: BP 120/54; PULSE 55; RESP 20
--- NOTE | 2020-10-18 15:24 | P.GSCN ---
History of Present Illness Consult date: 10/18/20 History of present illness: Alexia is a 70-year-old patient with severe peripheral arterial disease who initially presented to the ER for issues with dizziness and lightheadedness. She denied any tara weakness or numbness. Previously in the office imaging was reportedly without severe stenosis per the patient.. This time she is feeling significantly better than upon her admission. 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 TIA "many yrs ago", -circulation problems, overactive bladder, vascular ischemia. 2 aneurysms in brain and 1 in her abdomen, mild cold sx. last week now mostly resolved, fully vaccinated for covid History of Any Multi-Drug Resistant Organisms: None Reported Past Surgical History: Appendectomy, Back Surgery, Bladder Surgery, Cholecystectomy, Hysterectomy, Joint Replacement Additional Past Surgical History / Comment(s): Bilateral knee replacement, right shoulder rotator cuff x2,heather iliac femoral stents, bladder suspension x2, right Mediport 09/21/16; left lung biopsy; lymph node biopsy- left groin biopsy(malignant). heather carpal tunnel, heather cataracts, right shoulder replaced Past Anesthesia/Blood Transfusion Reactions: No Reported Reaction Additional Past Anesthesia/Blood Transfusion Reaction / Comm: Claustrophobic Past Psychological History: Depression Smoking Status: Current some day smoker Past Alcohol Use History: None Reported Additional Past Alcohol Use History / Comment(s): QUIT SMOKING MAY 2016. SMOKED 1 PPD FOR 50 YEARS. started smoking again and has quit again Past Drug Use History: None Reported - Past Family History Sister(s) Family Medical History: Cancer Additional Family Medical History / Comment(s): Lung cancer Brother(s) Family Medical History: Cancer Additional Family Medical History / Comment(s): Lung cancer Mother Additional Family Medical History / Comment(s): drugs and alcohol of Father Family Medical History: Cancer, Hyperlipidemia, Hypertension Additional Family Medical History / Comment(s): skin cancer Medications and Allergies Home Medications Medication Instructions Recorded Confirmed Type Clopidogrel [Plavix] 75 mg PO HS 08/15/16 10/15/20 History Levothyroxine Sodium [Synthroid] 25 mcg PO DAILY 08/15/16 10/15/20 History traZODone HCL [Desyrel] 100 mg PO HS 11/30/17 10/15/20 History Atorvastatin [Lipitor] 80 mg PO HS 07/25/20 10/15/20 History FLUoxetine HCL [PROzac] 40 mg PO DAILY 07/25/20 10/15/20 History carBAMazepine [TEGretol XR] 100 mg PO Q12H 07/25/20 10/15/20 History levETIRAcetam [Keppra] 500 mg PO BID 07/25/20 10/15/20 History Albuterol Sulfate [Ventolin HFA] 2 puff INHALATION RT-QID PRN 10/15/20 10/15/20 History Nystatin 100,000 Unit/gm Powd 1 applic TOPICAL BID 10/15/20 10/15/20 History [Mycostatin Powder] Meclizine [Antivert] 25 mg PO TID PRN #20 tab 10/18/20 Rx Allergies Allergy/AdvReac Type Severity Reaction Status Date / Time erythromycin base Allergy Rash/Hives Verified 10/15/20 11:33 Fish Containing Products Allergy Anaphylaxis Verified 10/15/20 11:33 Penicillins Allergy Swelling Verified 10/15/20 11:33 shellfish derived [Shellfish] Allergy Anaphylaxis Verified 10/15/20 11:33 levofloxacin [From Levaquin] AdvReac Rash/Hives Verified 10/15/20 11:33 Surgical - Exam Vital Signs Temp Pulse Resp BP Pulse Ox 98.0 F 60 18 129/55 94 L 10/15/20 09:56 10/15/20 09:56 10/15/20 09:56 10/15/20 09:56 10/15/20 09:56 Gen. is a pleasant cooperative female in no acute distress. HEENT is normal, atraumatic, excellent motion intact. Heart appears regular in rate and rhythm. Lungs are clear bilaterally. Abdomen soft obese nontender nondistended. Extremity show no clubbing, cyanosis or edema. Normal mood and affect. Cranial nerves II through XII grossly intact. Results CT angiogram is reviewed, may have some tortuosity versus very focal area of stenosis. Ultrasound shows no evidence of significant stenosis - Labs 10/15/20 10:33 10/15/20 10:33 Assessment and Plan Assessment: Carotid stenosis Dizziness Plan: At this time patient is in suitable condition for discharge. Her carotid stenosis is asymptomatic at this point, there is discordance between her imaging. We will plan to discuss outpatient follow-up for possible cerebral angiogram.
--- NOTE | 2020-10-18 16:22 | P.DS ---
Providers Date of admission: 10/17/20 14:17 Attending physician: Lise Winkler Consults: 10/15/20 12:19 Consult Physician Routine Consulting Provider: Faviola Atkinson Consult Reason/Comments: vertigo, ataxia Do you want consulting provider notified?: Yes 10/16/20 16:45 Consult Physician Routine Consulting Provider: Vonda Espinal Consult Reason/Comments: Carotid Occlusion Do you want consulting provider notified?: Yes Primary care physician: Stated None Hospital Course: Patient came in with complaints of mainly dizziness which is lightheadedness not the room spinning around. Patient denied any weakness or numbness. Patient denied any fever chills nausea vomiting abdominal pain. Patient does have history of TIA and history of cerebral aneurysm follows up with neurosurgery as an outpatient. ER physician evaluated the patient and he believes that there is right upper extremity ataxia although I did not appreciate any ataxia. There is no motor or sensory deficits. 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 Patient is definitely the osteopathic with severe peripheral vascular disease. Patient does state Plavix at home. Patient had stents in the peripheral vasculature. Patient still has cold and clammy bilateral lower extremities. She does have low normal blood pressure. 10/16/2020 Patient had the low B12 level because of which patient was started on B12 supplementation. Patient did have vertigo doesn't have any lightheadedness, patient appears to have labyrinthitis doesn't appear to have be BPPV did perform Dicks- Halspike maneuver which is a negative for BPPV. Patient had an MRI which is negative for any stroke. Patient had to be evaluated by physical therapy and outpatient therapy and it to be evaluated by vascular surgery constraining up patient has bilateral carotid occlusions patient will need a plastic surgery evaluation. 10/17/2020 Patient is awaiting the evaluation by vascular surgery. Patient has bilateral carotid occlusion. Patient's symptoms of the vertigo improved. Still has some vertigo. Further course of hospitalization depending on vascular surgery recommendations Constitutional: Denied any fatigue denied any fever. 10/18/2020 Patient's dizziness completed resolved at this time patient is clinically doing well will be discharged today. Past a surgery evaluated the patient not recommending any acute intervention at this time patient will follow-up with vascular surgery as an outpatient. PHYSICAL EXAMINATION: GENERAL: The patient is alert and oriented x3, not in any acute distress. Well developed, well nourished. HEENT: Pupils are round and equally reacting to light. EOMI. No scleral icterus. No conjunctival pallor. Normocephalic, atraumatic. No pharyngeal erythema. No thyromegaly. CARDIOVASCULAR: S1 and S2 present. No murmurs, rubs, or gallops. PULMONARY: Chest is clear to auscultation, no wheezing or crackles. ABDOMEN: Soft, nontender, nondistended, normoactive bowel sounds. No palpable organomegaly. MUSCULOSKELETAL: No joint swelling or deformity. EXTREMITIES: No cyanosis, clubbing, or pedal edema. Patient does have cold and clammy bilateral lower extremities NEUROLOGICAL: Gross neurological examination did not reveal any focal deficits. SKIN: No rashes. Assessment and plan -Vertigo: Secondary to labyrinthitis, continue with meclizine, symptomatic treatment. -Bilateral carotid occlusions vascular surgery follow-up as an outpatient -Severe peripheral vascular disease with stents in the past -Continued nicotine use: Counseling was provided -History of cerebral aneurysm, follows up with the neurosurgery as an outpatient. COPD without any acute exacerbation -Type 2 diabetes mellitus -Sleep apnea -Hypothyroidism -Hyperlipidemia Patient Condition at Discharge: Stable Plan - Discharge Summary Discharge Rx Participant: No New Discharge Prescriptions: New Meclizine [Antivert] 25 mg PO TID PRN #20 tab PRN Reason: Vertigo Continue Clopidogrel [Plavix] 75 mg PO HS Levothyroxine Sodium [Synthroid] 25 mcg PO DAILY traZODone HCL [Desyrel] 100 mg PO HS Atorvastatin [Lipitor] 80 mg PO HS Nystatin 100,000 Unit/gm Powd [Mycostatin Powder] 1 applic TOPICAL BID FLUoxetine HCL [PROzac] 40 mg PO DAILY carBAMazepine [TEGretol XR] 100 mg PO Q12H levETIRAcetam [Keppra] 500 mg PO BID Albuterol Sulfate [Ventolin HFA] 2 puff INHALATION RT-QID PRN PRN Reason: Shortness Of Breath Discharge Medication List Clopidogrel [Plavix] 75 mg PO HS 08/15/16 [History] Levothyroxine Sodium [Synthroid] 25 mcg PO DAILY 08/15/16 [History] traZODone HCL [Desyrel] 100 mg PO HS 11/30/17 [History] Atorvastatin [Lipitor] 80 mg PO HS 07/25/20 [History] FLUoxetine HCL [PROzac] 40 mg PO DAILY 07/25/20 [History] carBAMazepine [TEGretol XR] 100 mg PO Q12H 07/25/20 [History] levETIRAcetam [Keppra] 500 mg PO BID 07/25/20 [History] Albuterol Sulfate [Ventolin HFA] 2 puff INHALATION RT-QID PRN 10/15/20 [History] Nystatin 100,000 Unit/gm Powd [Mycostatin Powder] 1 applic TOPICAL BID 10/15/20 [History] Meclizine [Antivert] 25 mg PO TID PRN #20 tab 10/18/20 [Rx] Follow up Appointment(s)/Referral(s): Pramod Reagan III, MD [STAFF PHYSICIAN] - 1 Week Vonda Espinal DO [STAFF PHYSICIAN] - 1 Week Patient Instructions/Handouts: How to Stop Smoking (DC) Discharge Disposition: HOME SELF-CARE
== END 2020-10-18 18:10 | disposition home or self-care (01) | DRG 149 ==
LOC: EC 09:55 → 6NMEDSUR 12:31 → OBSVTOIN 10-17 14:17
PROVIDERS: ADMIT Internal Medicine; ATTEND Internal Medicine
DX: H83.09 Labyrinthitis, unspecified ear (principal); E03.9 Hypothyroidism, unspecified; E11.51 Type 2 diabetes mellitus with diabetic peripheral angiopathy without gangrene; Z20.822 Contact with and (suspected) exposure to COVID-19; E78.5 Hyperlipidemia, unspecified; E86.0 Dehydration; F17.200 Nicotine dependence, unspecified, uncomplicated; F32.9 Major depressive disorder, single episode, unspecified; I65.23 Occlusion and stenosis of bilateral carotid arteries; J44.9 Chronic obstructive pulmonary disease, unspecified; N32.81 Overactive bladder; Z96.611 Presence of right artificial shoulder joint; Z96.653 Presence of artificial knee joint, bilateral; I10 Essential (primary) hypertension; Z79.02 Long term (current) use of antithrombotics/antiplatelets; Z79.890 Hormone replacement therapy; Z79.899 Other long term (current) drug therapy; Z80.1 Family history of malignant neoplasm of trachea, bronchus and lung; Z80.8 Family history of malignant neoplasm of other organs or systems; Z82.49 Family history of ischemic heart disease and other diseases of the circulatory system; Z85.048 Personal history of other malignant neoplasm of rectum, rectosigmoid junction, and anus; Z86.73 Personal history of transient ischemic attack (TIA), and cerebral infarction without residual deficits; Z87.442 Personal history of urinary calculi; Z90.710 Acquired absence of both cervix and uterus; Z95.820 Peripheral vascular angioplasty status with implants and grafts
CPT/HCPCS: 36415; 70450; 70496; 70498; 70551; 80053; 80061; 81001; 82607; 82746; 84443; 84484; 85025; 85610; 85730; 87635; 93005; 93306; 93880; 96360; 99285

== ENCOUNTER → 2020-11-15 | Outpatient (CLI) | payer MEDICARE, OTHER ==
--- NOTE | 2020-11-17 20:20 | PE ---
EXAMINATION TYPE: PET CT fusion skull to thigh DATE OF EXAM: 11/15/2020 COMPARISON: Prior CTA abdomen and pelvis August 14, 2020. Prior PET/CT February 24, 2019 HISTORY: Anal cancer diagnosed and treated 2015 and 2016 TECHNIQUE: Following the intravenous administration of 10.43 mCi of F-18 FDG, whole body images are performed from the skull base to the midthigh. Images are reviewed on the computer in the coronal, a xial, and sagittal planes. Reconstructed rotating images are created on independent workstation and reviewed on the computer. A localization and attenuation correction CT is performed in conjunction with the PET scan. Blood glucose level equals 120. SCAN: Subsequent Scan FINDINGS: SKULL BASE AND NECK: No areas of suspicious hypermetabolic uptake. CHEST, MEDIASTINUM, AND HILAR REGION: No areas of suspicious hypermetabolic uptake. ABDOMEN AND PELVIS: Persistent soft tissue thickening at level of distal rectum/anus without new abno rmal hypermetabolic uptake. No new areas of abnormal hypermetabolic uptake. OSSEOUS STRUCTURES: No areas of abnormal hypermetabolic uptake. OTHER CT: Moderate to severe calcified plaque left greater than right carotid bulb is redemonstrated. There is scattered moderate to severe parenchymal scarring bilaterally. Groundglass opacity is again seen. There is mild cardiomegaly with moderate coronary artery calcification redemonstrated. Cholecystectomy clips are redemonstrated. There is AAA measuring up to 3.6 cm transversely axial imag e 162. There is an aortobiiliac stent graft distal to this redemonstrated. Uterus is surgically absen t . There is postsurgical change in the lower lumbar spine redemonstrated. Multilevel spurring in the spi ne superior to this is redemonstrated. IMPRESSION: No new areas of abnormal hypermetabolic uptake to suggest active neoplastic recurrence.
== END | disposition home or self-care (01) ==
LOC: RADPETMAIN 09:01
PROVIDERS: ATTEND Internal Medicine Hematology & Oncology
DX: C21.1 Malignant neoplasm of anal canal (principal)
CPT/HCPCS: 78815; A9552

== ENCOUNTER 2021-01-08 06:53 | Day surgery (SDC) | payer MEDICARE, OTHER ==
[2021-01-02 11:59] VITALS: BMI 30.6
[~2021-01-08 06:53] MED LIST changes: +LACTATED RINGERS 1,000 ML IV SCH; -SODIUM CHLORIDE 0.9% 1,000 ML in EMPTY BAG 1 BAG IV ONE
--- NOTE | 2021-01-08 07:02 | P.GSHP ---
History of Present Illness H&P Date: 01/08/21 CHIEF COMPLAINT: Colon screen HISTORY OF PRESENT ILLNESS: The patient is a 70-year-old female who presents for colon screen. Lower endoscopy was offered for further evaluation and management. PAST MEDICAL HISTORY: Please see list. PAST SURGICAL HISTORY: Please see list. MEDICATIONS: Please see list. ALLERGIES: Please see list. SOCIAL HISTORY: No illicit drug use FAMILY HISTORY: No reports of Crohn disease or ulcerative colitis. REVIEW OF ORGAN SYSTEMS: CONSTITUTIONAL: No reports of fevers or chills. PHYSICAL EXAM: VITAL SIGNS: Stable GENERAL: Well-developed pleasant in no acute distress. HEENT: No scleral icterus. Extraocular movements grossly intact. Moist buccal mucosa. NECK: Supple without lymphadenopathy. CHEST: Unlabored respirations. Equal bilateral excursions. CARDIOVASCULAR: Regular rate and rhythm. Distal 2+ pulses. ABDOMEN: Soft, nontender, nondistended. MUSCULOSKELETAL: No clubbing, cyanosis, or edema. ASSESSMENT: 1. Colon screen. PLAN: 1. Recommend proceeding with a lower endoscopy 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 TIA X3, "many yrs ago", circulation problems, overactive bladder, vascular ischemia. 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 No CPAP/BIPAP use. Blocked artery in right leg. History of Any Multi-Drug Resistant Organisms: None Reported Past Surgical History: Appendectomy, Back Surgery, Bladder Surgery, Cholecystectomy, Hysterectomy, Joint Replacement Additional Past Surgical History / Comment(s): Bilateral knee replacements, right shoulder rotator cuff X2, bilateral iliac femoral stents, bladder suspensi on X2, right Mediport, left lung biopsy, lymph node biopsy, left groin biopsy(malignant). bilateral carpal tunnel, bilateral cataracts, right shoulder replacement. Past Anesthesia/Blood Transfusion Reactions: No Reported Reaction Additional Past Anesthesia/Blood Transfusion Reaction / Comment(s): Claustrophobic. Past Psychological History: Depression Smoking Status: Current some day smoker Past Alcohol Use History: None Reported Additional Past Alcohol Use History / Comment(s): QUIT SMOKING MAY 2016. SMOKED 1 PPD FOR 50 YEARS. Started smoking again but has quit again 6 months ago. Admits to an "occasional cigarette here and there." Past Drug Use History: None Reported - Past Family History Sister(s) Family Medical History: Cancer Additional Family Medical History / Comment(s): Lung cancer. Brother(s) Family Medical History: Cancer Additional Family Medical History / Comment(s): Lung cancer. Mother Family Medical History: Cancer Additional Family Medical History / Comment(s): Drugs and alcohol - of. Ear lobe cancer. Father Family Medical History: Cancer, Hyperlipidemia, Hypertension Additional Family Medical History / Comment(s): Skin cancer. Medications and Allergies Home Medications Medication Instructions Recorded Confirmed Type Clopidogrel [Plavix] 75 mg PO HS 08/15/16 01/02/21 History Levothyroxine Sodium [Synthroid] 25 mcg PO DAILY 08/15/16 01/02/21 History traZODone HCL [Desyrel] 150 mg PO HS 11/30/17 01/02/21 History Atorvastatin [Lipitor] 80 mg PO HS 07/25/20 01/02/21 History FLUoxetine HCL [PROzac] 40 mg PO DAILY 07/25/20 01/02/21 History carBAMazepine [TEGretol XR] 100 mg PO Q12H 07/25/20 01/02/21 History levETIRAcetam [Keppra] 500 mg PO BID 07/25/20 01/02/21 History Albuterol Sulfate [Ventolin HFA] 2 puff INHALATION RT-QID PRN 10/15/20 01/02/21 History Nystatin 100,000 Unit/gm Powd 1 applic TOPICAL BID PRN 10/15/20 01/02/21 History [Mycostatin Powder] Meclizine [Antivert] 25 mg PO TID PRN #20 tab 10/18/20 01/02/21 Rx Allergies Allergy/AdvReac Type Severity Reaction Status Date / Time erythromycin base Allergy Rash/Hives Verified 01/02/21 11:38 Fish Containing Products Allergy Anaphylaxis Verified 01/02/21 11:38 Penicillins Allergy Swelling Verified 01/02/21 11:38 shellfish derived [Shellfish] Allergy Anaphylaxis Verified 01/02/21 11:38 levofloxacin [From Levaquin] AdvReac Rash/Hives Verified 01/02/21 11:38
[2021-01-08 07:38] LABS: Glucose,Whole Blood 127 mg/dL (75-99)
[2021-01-08] MEDS ORDERED: LIDOCAINE 1% INJ 10MG/ML (20 ML MDV) ONE (07:42)
[2021-01-08] MEDS ORDERED: PROPOFOL 10 MG/ML 20 ML VIAL IV ONE (07:42)
--- NOTE | 2021-01-08 08:31 | P.PCN ---
Date of Procedure: 01/08/21 Description of Procedure: PREOPERATIVE DIAGNOSIS: Personal history of malignant colon cancer Chronic tobacco abuse POSTOPERATIVE DIAGNOSIS: Personal history of malignant colon cancer Chronic tobacco abuse Tubular adenoma hepatic flexure Tubular adenoma transverse colon Tubular adenoma splenic flexure Tubular adenoma descending colon Tubular adenoma descending colon OPERATION: Colonoscopy to the ileocecal valve and appendiceal orifice, cecum Colonoscopy with hot snare polypectomy SURGEON: Juliana Chan MD. ANESTHESIA: MAC. INDICATIONS: The patient is an 70-year-old female who presents with personal history of malignant colon polyps. Last colonoscopy 5 years ago. Benefits and risks were described and informed consent was obtained. DESCRIPTION OF PROCEDURE: The patient had undergone Sutab prep. The patient had been brought into the operating room and laid in the left lateral decubitus position. After adequate intravenous sedation, the rectum was examined with 2% lidocaine jelly. The prostate was unremarkable. No external hemorrhoids were encountered. The rectal tone was within normal limits. No lesions were palpated in the rectal vault. An Olympus colonoscope was advanced until the cecum, ileocecal valve and appendiceal orifice were clearly viewed. The prep was fair. Colonic polyps were found and removed. No evidence of focal colitis was found. Retroflexion of the scope demonstrated grade 2 internal hemorrhoids without active bleeding or inflammation. During the procedure, patient started vomiting. Additional polyps found along the ascending colon unable to resect. The colon was desufflated. The patient was transferred to phase 1 recovery. Withdrawal time was over 6 minutes. FINDINGS: Aronchick preparation quality scale 2 (1-5) Internal hemorrhoids, grade 1 No external hemorrhoids No arteriovenous malformations. Removal of 15 polyps: - Snare polypectomy 15 cm from the anal verge, 5 mm tubulovillous adenoma polyp, sigmoid colon - Snare polypectomy 50 cm from the anal verge, 8 mm flat villous adenoma polyp, descending colon - Snare polypectomy splenic flexure 3, 6 to 12 mm flat villous adenoma polyp. - Snare polypectomy of distal transverse colon 2, 6 to 8 mm flat villous adenoma polyp. - Snare polypectomy of hepatic flexure 3, 5 to 8 mm flat villous adenoma polyp. - Snare polypectomy ascending colon 5, 4 to 10 mm flat villous adenoma polyp. No focal colitis. Emesis during procedure prohibited additional removal of polyps along ascending colon RECOMMENDATIONS: Given severity of tubular adenomas and personal history of colon cancer, recommend repeat colonoscopy 1 year, 2022 Plan - Discharge Summary Discharge Rx Participant: No New Discharge Prescriptions: Continue Clopidogrel [Plavix] 75 mg PO HS Levothyroxine Sodium [Synthroid] 25 mcg PO DAILY traZODone HCL [Desyrel] 150 mg PO HS Atorvastatin [Lipitor] 80 mg PO HS Nystatin 100,000 Unit/gm Powd [Mycostatin Powder] 1 applic TOPICAL BID PRN PRN Reason: Yeast Infection FLUoxetine HCL [PROzac] 40 mg PO DAILY carBAMazepine [TEGretol XR] 100 mg PO Q12H levETIRAcetam [Keppra] 500 mg PO BID Albuterol Sulfate [Ventolin HFA] 2 puff INHALATION RT-QID PRN PRN Reason: Shortness Of Breath Meclizine [Antivert] 25 mg PO TID PRN #20 tab PRN Reason: Vertigo Discharge Medication List Clopidogrel [Plavix] 75 mg PO HS 08/15/16 [History] Levothyroxine Sodium [Synthroid] 25 mcg PO DAILY 08/15/16 [History] traZODone HCL [Desyrel] 150 mg PO HS 11/30/17 [History] Atorvastatin [Lipitor] 80 mg PO HS 07/25/20 [History] FLUoxetine HCL [PROzac] 40 mg PO DAILY 07/25/20 [History] carBAMazepine [TEGretol XR] 100 mg PO Q12H 07/25/20 [History] levETIRAcetam [Keppra] 500 mg PO BID 07/25/20 [History] Albuterol Sulfate [Ventolin HFA] 2 puff INHALATION RT-QID PRN 10/15/20 [History] Nystatin 100,000 Unit/gm Powd [Mycostatin Powder] 1 applic TOPICAL BID PRN 10/15/20 [History] Meclizine [Antivert] 25 mg PO TID PRN #20 tab 10/18/20 [Rx] Follow up Appointment(s)/Referral(s): Juliana Chan MD [STAFF PHYSICIAN] - 01/21/21 Patient Instructions/Handouts: Colorectal Polyps (DC) Activity/Diet/Wound Care/Special Instructions: Repeat colonoscopy 1 year due to multiple colon polyps over 2021. RESUME PLAVIX 01/10/21 Discharge Disposition: HOME SELF-CARE
[2021-01-08] MEDS ORDERED: ONDANSETRON 4 MG/2 ML VIAL ONE (08:36)
[2021-01-08] MEDS ORDERED: ONDANSETRON 4 MG/2 ML VIAL IVP ONE (08:38)
[2021-01-08] MEDS ORDERED: diphenhydrAMINE 50 MG/ML 1 ML VIAL ONE (08:43)
[2021-01-08 08:47] VITALS: TEMP 97.2
[2021-01-08] MEDS ORDERED: diphenhydrAMINE 50 MG/ML 1 ML VIAL IVP ONE (08:47)
--- NOTE | 2021-01-08 08:55 | XR ---
EXAMINATION TYPE: XR chest 1V portable DATE OF EXAM: 01/08/2021 Comparison: 07/06/2018 Clinical History: 70-year-old female ASPIRATION, emesis after anesthesia for colonoscopy. Findings: Heart is enlarged. Mild interstitial prominence probably in part chronic. Patchy left basilar opacity appears new. No pleural effusion. The vertebrae shoulders arthroplasty partially visualized. Impression: Patchy left basilar opacity appears new from 07/06/2018. Unable to exclude early pneumonitis. The back ground of interstitial changes probably secondary to underlying chronic interstitial lung disease.
[2021-01-08 09:52] VITALS: BP 138/60; PULSE 84; RESP 16
== END 2021-01-08 10:32 | disposition home or self-care (01) ==
LOC: ORWHC2ENDO 06:53
PROVIDERS: ATTEND Surgery Plastic and Reconstructive Surgery
DX: Z12.11 Encounter for screening for malignant neoplasm of colon (principal); D12.3 Benign neoplasm of transverse colon; D12.4 Benign neoplasm of descending colon; D12.2 Benign neoplasm of ascending colon; K63.5 Polyp of colon; K64.0 First degree hemorrhoids; Z85.038 Personal history of other malignant neoplasm of large intestine; K91.0 Vomiting following gastrointestinal surgery; J44.9 Chronic obstructive pulmonary disease, unspecified; Z86.73 Personal history of transient ischemic attack (TIA), and cerebral infarction without residual deficits; E11.51 Type 2 diabetes mellitus with diabetic peripheral angiopathy without gangrene; E78.5 Hyperlipidemia, unspecified; G47.30 Sleep apnea, unspecified; E07.9 Disorder of thyroid, unspecified; Z85.048 Personal history of other malignant neoplasm of rectum, rectosigmoid junction, and anus; Z92.21 Personal history of antineoplastic chemotherapy; Z87.442 Personal history of urinary calculi; R25.1 Tremor, unspecified; N32.81 Overactive bladder; I67.1 Cerebral aneurysm, nonruptured; I71.4 Abdominal aortic aneurysm, without rupture; Z98.890 Other specified postprocedural states; Z90.49 Acquired absence of other specified parts of digestive tract; Z90.710 Acquired absence of both cervix and uterus; Z96.653 Presence of artificial knee joint, bilateral; Z98.42 Cataract extraction status, left eye; Z98.41 Cataract extraction status, right eye; Z96.611 Presence of right artificial shoulder joint; F40.240 Claustrophobia; F32.9 Major depressive disorder, single episode, unspecified; F17.210 Nicotine dependence, cigarettes, uncomplicated; Z95.828 Presence of other vascular implants and grafts; Z97.2 Presence of dental prosthetic device (complete) (partial); Z80.1 Family history of malignant neoplasm of trachea, bronchus and lung; Z83.438 Family history of other disorder of lipoprotein metabolism and other lipidemia; Z82.49 Family history of ischemic heart disease and other diseases of the circulatory system; Z80.8 Family history of malignant neoplasm of other organs or systems; Z79.02 Long term (current) use of antithrombotics/antiplatelets; Z79.890 Hormone replacement therapy; Z79.899 Other long term (current) drug therapy; Z88.1 Allergy status to other antibiotic agents; Z88.0 Allergy status to penicillin; Z91.013 Allergy to seafood
CPT/HCPCS: 88305; 71045; 45385; J1200; J2405; J2001; J2704

== ENCOUNTER → 2021-04-01 | Outpatient (CLI) | payer MEDICARE, OTHER | END | disposition home or self-care (01) | LOC: LABWHC1 12:49 | PROVIDERS: ATTEND Psychiatry & Neurology Neurology | DX: Z20.822 Contact with and (suspected) exposure to COVID-19 (principal) | CPT/HCPCS: U0003; C9803 ==

== ENCOUNTER → 2021-11-21 | Outpatient (CLI) | payer MEDICARE ==
--- NOTE | 2021-11-21 12:37 | PE ---
EXAMINATION TYPE: PET CT fusion skull to thigh DATE OF EXAM: 11/21/2021 COMPARISON: Prior PET/CT November 15, 2020 and older studies. HISTORY: Anal cancer progress study originally diagnosed 2016. TECHNIQUE: Following the intravenous administration of 11.79 mCi of F-18 FDG, whole body images are performed from the skull base to the midthigh. Images are reviewed on the computer in the coronal, a xial, and sagittal planes. Reconstructed rotating images are created on independent workstation and reviewed on the computer. A localization and attenuation correction CT is performed in conjunction with the PET scan. Blood glucose level equals 98. SCAN: Subsequent Scan FINDINGS: SKULL BASE AND NECK: No new areas of suspicious hypermetabolic uptake. CHEST, MEDIASTINUM, AND HILAR REGION: No new areas of suspicious hypermetabolic uptake. ABDOMEN AND PELVIS: Persistent soft tissue thickening at level of distal rectum/anus near axial phani ge 226 without new or recurrent abnormal hypermetabolic uptake. No new areas of abnormal hypermetabol ic uptake. Normal excretion redemonstrated. Inferior external urine leak on current study noted. OSSEOUS STRUCTURES: No new areas of abnormal hypermetabolic uptake. OTHER CT: Moderate to severe calcified plaque left greater than right carotid bulb is redemonstrated. There is scattered moderate parenchymal scarring bilaterally. Groundglass opacity is again seen. Ther e is mild cardiomegaly with severer coronary artery calcification redemonstrated. Cholecystectomy clips are redemonstrated. There is AAA measuring up to 3.5 cm transversely axial imag e 160 redemonstrated. There is a biiliac stent graft distal to this redemonstrated. Uterus is surgica lly absent . There is postsurgical change in the lower lumbar spine redemonstrated. Multilevel spurring in the spi ne superior to this is redemonstrated. Metallic prosthesis right shoulder level redemonstrated. New s brandy stimulator in the mid to lower thoracic spinal canal is seen. There is severe chronic compressi on type fracture at L1 level redemonstrated. IMPRESSION: No new areas of abnormal hypermetabolic uptake to suggest active neoplastic recurrence. N o significant change from most recent PET/CT.
== END | disposition home or self-care (01) ==
LOC: RADPETMAIN 08:29
PROVIDERS: ATTEND Internal Medicine Hematology & Oncology
DX: C21.1 Malignant neoplasm of anal canal (principal)
CPT/HCPCS: 78815; A9552

== ENCOUNTER → 2021-12-23 | Outpatient (CLI) | payer MEDICARE ==
--- NOTE | 2021-12-23 11:53 | XR ---
EXAMINATION TYPE: XR KUB DATE OF EXAM: 12/23/2021 11:48 AM CLINICAL HISTORY: Bilateral flank pain. History of kidney stones. TECHNIQUE: Two Upright KUB images of the abdomen are obtained. COMPARISON: Chest CTA with runoff August 14, 2020. Recent PET CT November 21, 2021 FINDINGS: No definitive nephrolithiasis. Suboptimal evaluation of left kidney due to overlying spinal stimulator device. Overall nonobstructive bowel gas pattern. Cholecystectomy clips redemonstrated. Surgical change to th e lower lumbar spine again seen. Vascular calcification overlies the pelvis. At least moderate degene rative changes in both hips redemonstrated. IMPRESSION: As above.
== END | disposition home or self-care (01) ==
LOC: RADXRMAIN 11:33
PROVIDERS: ATTEND Urology
DX: N20.0 Calculus of kidney (principal)
CPT/HCPCS: 74018

== ENCOUNTER → 2021-12-25 | Outpatient (CLI) | payer MEDICARE ==
--- NOTE | 2021-12-27 08:20 | CT ---
EXAMINATION TYPE: CT angio thor/abd pel aorta CT DLP: 2747.1 mGycm, Automated exposure control for dose reduction was used. DATE OF EXAM: 12/25/2021 12:27 PM COMPARISON: PET/CT 11/21/2021. 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 3-D reformats and maximum intensity projection fo rmat were performed on a separate workstation. Contrast used:100 mL of Isovue 370 without and with IV Contrast, Oral contrast used: None FINDINGS: ARTERIAL VASCULATURE: No evidence for intramural hematoma on noncontrast imaging. There is scattered atherosclerosis throughout the arterial vasculature. The ascending thoracic aorta and descending thor acic aorta are within normal limits for size. The great vessels are patent. The origin of the celiac artery, superior mesenteric artery, bilateral renal arteries are patent. There is mild atheroscleroti c mixed calcified and noncalcified plaque involving the origins of the major vessels of the abdominal aorta with some degree of stenosis. Infrarenal fusiform aortic aneurysm measuring up to 3.7 cm is present. There is mural thrombus within this infrarenal aortic fusiform aneurysm. Bilateral common iliac stent grafts are patent. There is diminutive appearance of the external iliac arteries and vessels of the visualized lower extremity. PULMONARY ARTERIAL VASCULATURE: Normal caliber. No evidence of filling defect to suggest pulmonary em bolus. VENOUS SYSTEM: Unremarkable. Lungs/pleura: Scattered parenchymal increased interstitial lung markings with with scarring. No suspi cious pulmonary masses. No pneumothorax, pleural effusion or focal consolidation. Heart: Within normal limits. There is coronary artery atherosclerosis as well as aortic valve calcifi cations. Mediastinum: Prominent nonenlarged lymph nodes are seen throughout the mediastinum including right lo w paratracheal measuring 9 mm in short axis is stable. Right pulmonary hilum lymph nodes measuring up to 2.6 x 1.4 cm are also stable. Lower Neck: Scattered subcentimeter nodules within the thyroid gland. Abdomen: Liver: Calcified granuloma in the hepatic dome. Gallbladder and Bile ducts: The gallbladder surgically absent. Pancreas: Unremarkable. Spleen: Unremarkable. Adrenal glands: Unremarkable. Kidneys and Ureters: Bilateral renal cysts are present.. No hydronephrosis. Stomach and Bowel: Unremarkable. No evidence of bowel obstruction. Peritoneum: No evidence of pneumoperitoneum, free fluid, or adenopathy. Bladder: Unremarkable. Reproductive: Unremarkable. Abdominal wall/soft tissues: Unremarkable. Musculoskeletal: The osseous structures appear intact. Right shoulder arthroplasty changes noted. The re is multilevel disc degeneration changes seen throughout the spine. Multilevel fixation throughout the lower lumbar spine is present. There is compression deformity of the L1 vertebral body. There are similar device seen in the posterior thoracic thecal sac. Hardware at L4-L5 and S1 appears intact. IMPRESSION: 1. No evidence for thoracic aortic dissection. 2. Infrarenal aortic fusiform aneurysm with mural thrombus. Bilateral common iliac stents which are p atent. 3. Mild narrowing of the origins of the great vessels of the abdominal aorta secondary to mixed ather osclerotic plaque. 4. Moderate atherosclerotic disease throughout the arterial vasculature.
== END | disposition home or self-care (01) ==
LOC: RADCTMAIN 09:46
PROVIDERS: ATTEND Surgery
DX: I72.2 Aneurysm of renal artery (principal); I70.0 Atherosclerosis of aorta
CPT/HCPCS: 82565; 84520; 71275; 36415; 74174; Q9967

== ENCOUNTER 2022-03-26 09:21 | Inpatient (IN) | payer MEDICARE ==
[2022-03-25 08:51] VITALS: BMI 30.6
[~2022-03-26 09:21] MED LIST changes: +DEXAMETHASONE SOD PHOSPHATE 4 MG/ML 1 ML VIAL IV ONE; -LACTATED RINGERS 1,000 ML IV SCH; +ONDANSETRON 4 MG/2 ML VIAL IVP ONE
[2022-03-26 10:22] LABS: Glucose,Whole Blood 119 mg/dL (70-110)
[2022-03-26] MEDS: LACTATED RINGERS 1,000 ML IV SCH ×4 (10:35→17:22)
[2022-03-26] MEDS ORDERED: MIDAZOLAM 2 MG/2 ML VIAL IV ONE (10:38)
--- NOTE | 2022-03-26 10:41 | P.HPIHPCON ---
History of Present Illness H&P Date: 03/26/22 Alexia is a 72-year-old female with significant peripheral arterial disease and previous bilateral total iliac stents who continues to have significant lifestyle limiting pain in her lower extremities worsened on the right with some evidence of rest pain. She has done all she can to improve her back pain and is wanting to go forward with surgical intervention for her peripheral arterial disease. Previously she had been worked up and found to be in need of a femoral to below-knee popliteal/tibial bypass with in situ saphenous vein that was of appropriate size Consent for Procedure: I have explained the operation/procedure to the patient, including the risks, benefits, side effects, alternative therapies (including not receiving the proposed treatment or service), the likelihood of the patient achieving his/her goals, and potential recuperation problems for the procedure/sedation/analgesia, as well as any blood products, if indicated. I also explained to the patient the risks, benefits and side effects of the alternatives, as well as the risks related to not receiving the proposed procedure, care, treatment, or services. 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 TIA X3, "many yrs ago", circulation problems, overactive bladder, vascular ischemia. 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 No CPAP/BIPAP use. Blocked artery in right leg. States has had a yeast infection for the last year. History of Any Multi-Drug Resistant Organisms: None Reported Past Surgical History: Appendectomy, Back Surgery, Bladder Surgery, Cholecystectomy, Hysterectomy, Joint Replacement Additional Past Surgical History / Comment(s): Bilateral knee replacements, right shoulder rotator cuff X2, bilateral iliac femoral stents, bladder suspension X2, right Mediport removed, left lung biopsy, lymph node biopsy, left groin biopsy(malignant). bilateral carpal tunnel, bilateral cataracts, right shoulder replacement. Past Anesthesia/Blood Transfusion Reactions: No Reported Reaction Additional Past Anesthesia/Blood Transfusion Reaction / Comment(s): Claustrophobic. Smoking Status: Former smoker - Past Family History Sister(s) Family Medical History: Cancer Additional Family Medical History / Comment(s): Lung cancer. Brother(s) Family Medical History: Cancer Additional Family Medical History / Comment(s): Lung cancer. Mother Family Medical History: Cancer Additional Family Medical History / Comment(s): Drugs and alcohol - of. Ear lobe cancer. Father Family Medical History: Cancer, Hyperlipidemia, Hypertension Additional Family Medical History / Comment(s): Skin cancer. Medications and Allergies Home Medications Medication Instructions Recorded Confirmed Type Clopidogrel [Plavix] 75 mg PO HS 08/15/16 03/26/22 History Levothyroxine Sodium [Synthroid] 25 mcg PO DAILY 08/15/16 03/26/22 History traZODone HCL [Desyrel] 150 mg PO HS 11/30/17 03/26/22 History Atorvastatin [Lipitor] 80 mg PO HS 07/25/20 03/26/22 History FLUoxetine HCL [PROzac] 40 mg PO DAILY 07/25/20 03/26/22 History carBAMazepine [TEGretol XR] 100 mg PO Q12H 07/25/20 03/26/22 History levETIRAcetam [Keppra] 500 mg PO BID 07/25/20 03/26/22 History Albuterol Sulfate [Ventolin HFA] 2 puff INHALATION RT-QID PRN 10/15/20 03/26/22 History Nystatin 100,000 Unit/gm Powd 1 applic TOPICAL BID PRN 10/15/20 03/26/22 History [Mycostatin Powder] Allergies Allergy/AdvReac Type Severity Reaction Status Date / Time erythromycin base Allergy Rash/Hives Verified 03/26/22 09:57 Fish Containing Products Allergy Anaphylaxis Verified 03/26/22 09:57 Penicillins Allergy Swelling Verified 03/26/22 09:57 shellfish derived [Shellfish] Allergy Anaphylaxis Verified 03/26/22 09:57 levofloxacin [From Levaquin] AdvReac Rash/Hives Verified 03/26/22 09:57 Surgical - Exam Vital Signs Temp Pulse Resp BP Pulse Ox 97.4 F L 73 18 132/60 100 03/26/22 09:56 03/26/22 09:56 03/26/22 09:56 03/26/22 09:56 03/26/22 09:56 No acute distress resting comfortably. Heart appears regular. Lungs are clear. Abdomen is soft. Palpable radial pulses bilaterally. Difficult to palpate femoral pulses. No palpable pedal pulses. Dependent rubor of the right lower extremity. Elevation pallor Results - Labs Abnormal Lab Results - Last 24 Hours (Table) 03/26/22 Range/Units 10:20 POC Glucose (mg/dL) 119 H (70-110) mg/dL Assessment and Plan Assessment: Severe peripheral arterial disease [place] 4 right lower extremity with superficial femoral artery occlusion Plan: Plan at this time for femoral to below-knee popliteal bypass with in situ saph enous vein. Questions are answered. Patient seemingly understands.
[2022-03-26] MEDS ORDERED: THROMBIN (BOVINE) 5,000 UNIT VIAL TOPICAL ONE ×2 (11:54)
[2022-03-26] MEDS ORDERED: GELATIN SPONGE,ABSORB (LARGE) 1 EACH SPONGE TOPICAL ONE (11:55)
[2022-03-26] MEDS ORDERED: LACTATED RINGERS 1,000 ML IV ONE ×2 (12:25→15:19)
--- NOTE | 2022-03-26 12:57 | P.ANPRN ---
Procedure Note - Anesthesia - Invasive Line Right Arterial Line Time Out Performed: Yes (1038) Date of Procedure: 03/26/22 Time of Procedure: 10:39 Location of Patient: PreOp Preparation: Sterile Prep, Sterile Dressing Arterial Line Location: Briachial (right) Ultrasound Used: No Purpose - Visualization and Identification of Vasculature: No Needle Guage: 20g x 5in cath Image Stored and Saved: No Narrative: Central line placement per sterile protocol utilized.
[2022-03-26] MEDS ORDERED: MORPHINE SULFATE 4 MG/ML SYRINGE IV PRN (15:59)
[2022-03-26] MEDS: HYDROmorphone 0.5 MG/0.5 ML SYRINGE IVP PRN ×2 (16:00→16:30)
--- NOTE | 2022-03-26 16:15 | P.OP ---
Date of Procedure: 03/26/22 Description of Procedure: Preoperative diagnosis: Severe lifestyle limiting right lower extremity pain, peripheral arterial disease, [place] 4 Postoperative diagnosis: Same Procedure: Right femoral to below knee popliteal bypass with in situ greater saphenous vein Surgeon: Vonda Espinal D.O. Residential Designer: Dr. Rajeev Rehman EBL: 75 IV fluids: See records Drains: None Urine output: 425 mL Specimen: None Complications: None Condition: Stable, extubated in the OR to PACU Operative indication and findings: The patient is a 72-year-old female with severe peripheral arterial disease and previous iliac stents. After long workup and evaluation and ruling out back issues as the majority of her pain, it was decided to go forward with a bypass due to her significant right lower extremity pain. Risks and benefits were discussed including but not limited to bleeding, infection, limb loss, heart attack, poor wound healing and . The patient seemingly understood and was willing to proceed. Procedure in detail: Patient taken to the operative suite placed in supine position and intubated. A Espinal catheter was placed. The abdomen and right lower extremity prepped and draped in usual sterile fashion. A preprocedure timeout was performed and all parties are in agreement. An longitudinal incision was made in the right groin with the scalpel. It was deepened through subcutaneous tissues with electrocautery. The encountered lymphatics were ligated and divided. The femoral sheath was opened sharply. There was significant very difficult to dissect tissue from multiple previous catheterizations at the level of the femoral artery The common femoral artery was dissected free circumferentially. The dissection was extended proximally to the level of the inguinal ligament, and distally to include the superficial femoral and profunda femoris arteries. They were encircled with vessel loops. Attention was then turned towards the below-knee incision. It was made in the medial condyle and deepened through the fascia with care to avoid the saphenous vein. The popliteal artery was identified the popliteal vein was retracted. Vessel loops were placed after careful circumferential dissection . Attention was then turned towards the vein itself at the level of the midcalf. the vein was identified and dissected free. Any branches were ligated with 3-0 silk ties. This was done to the level of the knee. At that point the patient was heparinized and ACT is were followed. Once heparinization was adequate, flow was occluded through the vessel. An 11 blade was utilized and arteriotomy is made the Hunt-[place] scissors was utilized to enlarge the arteriotomy. There was good inflow from the proximal artery. The saphenous vein was then ligated proximally at the saphenofemoral junction. An anastomosis created using 6-0 Prolene between the femoral artery and the saphenous vein. At that point a valvulotome was passed with times with return of adequate blood flow through the graft itself. The vein was marked. At that point the arteriotomy of the popliteal segment was performed. The vein was cut to size and spatulated. Utilizing 6-0 Prolene an anastomosis was created. Hemostasis was achieved with interrupted sutures of 6-0 Prolene and Surgicel. At this point all anastomoses were completed and flow was resumed through the bypass graft. A Doppler was utilized to confirm multiphasic flow distally to the anastomosis. There was some difficulty in appropriate flow signals after significant investigation of the anastomosis, it did appear there was some twisting of the heel of the graft therefore the anastomosis was taken down after re-clamping. The anastomoses then reperformed again with 6-0 Prolene and at this time appear to be significantly improved with adequate flow proximally and distally and now a palpable pedal pulse at the posterior tibial. Hemostasis was achieved. Attention was then turned towards the branches. The ultrasound was utilized and branching vessels were identified. An incision was made and carried onto the level of the side branches which were ligated with clips. The wound was copiously irrigated with antibiotic solution. The femoral sheath was reapproximated with interrupted sutures of 3-0 Vicryl. The subcuticular tis katty was reapproximated with 3-0 Vicryl. The skin was reprepped with running sutures of 4-0 Monocryl. The popliteal fascia was reapproximated with 3-0 Vicryl. The subcutaneous tissues were reapproximated with 3-0 Vicryl and the skin along the length of the vein access as well. There were closed with hecotr. Incisional wound VAC dressings was placed.
[2022-03-26 17:12] LABS: Glucose,Whole Blood 174 mg/dL (70-110)
[2022-03-26] MEDS ORDERED: NYSTATIN 100,000 UNIT/GM POWD 15 GM TOPICAL PRN (18:21)
[2022-03-26] MEDS ORDERED: ALBUTEROL NEBULIZED 2.5 MG/3 ML INHALATION PRN (18:21)
[2022-03-26 20:23] LABS: Glucose,Whole Blood 150 mg/dL (70-110)
[2022-03-26] MEDS: HYDROcodone/APAP 5-325MG 1 EACH TAB PO PRN (20:45)
[2022-03-26] MEDS: ATORVASTATIN 80 MG TAB PO SCH (20:45)
[2022-03-26] MEDS: traZODone HCL 50 MG TAB PO SCH (20:45)
[2022-03-26] MEDS: levETIRAcetam 500 MG TAB PO SCH (20:45)
[2022-03-26] MEDS: carBAMazepine 100 MG TAB.ER.12H PO SCH (20:46)
[2022-03-26] MEDS: CLINDAMYCIN 600 MG in DEXTROSE 5% IN WATER 50 ML IVPB SCH ×2 (20:46)
[2022-03-27] MEDS: HYDROcodone/APAP 5-325MG 1 EACH TAB PO PRN ×3 (01:03→20:49)
[2022-03-27] MEDS: LEVOTHYROXINE 25 MCG TAB PO SCH (05:14)
[2022-03-27] MEDS: CLINDAMYCIN 600 MG in DEXTROSE 5% IN WATER 50 ML IVPB SCH ×2 (05:14)
[2022-03-27 06:31] LABS: Glucose,Whole Blood 115 mg/dL (70-110)
--- NOTE | 2022-03-27 09:26 | P.PN ---
Subjective Progress Note Date: 03/27/22 Principal diagnosis: Severe lifestyle limiting right lower extremity pain, PAD This a pleasant 72-year-old female with a history of severe peripheral arterial disease and previous iliac stents. Patient patient continued to have significant lifestyle limiting pain in her lower extremities worse on the right with some rest pain. Patient was scheduled for femoral to [id number] popliteal/tibial bypass. She is postop day #1 for right femoral to [id number] popliteal/tibial bypass with in situ saphenous vein. Today she states that she is having some discomfort but well-managed with pain medication. She has been afebrile, no complaints of fevers or chills. She denies any shortness of breath or chest pain. No abdominal pain, nausea or vomiting. She is tolerating a regular diet this morning. Discussed with patient to increase ambulation up with assistance. Physical therapy has been consulted. Patient does use a walker at home, and states her son is bringing it in for her to use here. Objective - Vital Signs Vital signs: Vital Signs Temp 97.9 F 03/27/22 03:13 Pulse 83 03/27/22 03:13 Resp 16 03/27/22 03:13 BP 97/62 03/27/22 03:13 Pulse Ox 97 03/27/22 08:51 FiO2 Intake & Output 03/26/22 03/27/22 03/27/22 18:59 06:59 18:59 Intake Total 3650 990 354 Output Total 1000 800 Balance 2650 190 354 Weight 79.6 kg 62 kg Intake: IV 3650 Intake, IV Titration 390 Amount Clindamycin 600 mg In 100 Dextrose 5% in Water 50 ml @ 50 mls/hr IVPB Q8H [facility] Rx#:[id number] Lactated Ringers 1,000 ml 240 @ 20 mls/hr IV .Q24H [facility] Rx#:[id number] ceFAZolin 2 gm In Sodium 50 Chloride 0.9% 50 ml @ 100 mls/hr IVPB ONCE PRN Rx# :[id number] Oral 600 354 Output: Urine 925 800 Estimated Blood Loss 75 Other: Voiding Method Indwelling Catheter # Bowel Movements 0 - Exam General appearance: The patient is alert, oriented, appears in no acute distress. HET: Head is normocephalic and atraumatic. Pupils are equal and reactive. Neck: Supple without lymphadenopathy. Trachea midline. Heart: Regular. Lungs: Equal expansion, normal respiratory effort. Abdomen: Soft, nontender, nondistended. Extremities: Normal skin color and turgor. No cyanosis, rash, ulceration, clubbing, or edema. Incisions with dressings clean dry and intact, right groin thigh and medial aspect of lower extremity. Palpable right PT. Neurological: No focal deficits. Strength and sensation are grossly intact. - Labs Labs: Abnormal Lab Results - Last 24 Hours (Table) 03/26/22 03/26/22 03/26/22 Range/Units 10:20 17:11 20:21 POC Glucose (mg/dL) 119 H 174 H 150 H (70-110) mg/dL 03/27/22 Range/Units 06:30 POC Glucose (mg/dL) 115 H (70-110) mg/dL Assessment and Plan Assessment: 1. Postop day #1 right femoral to below-knee popliteal bypass with in situ greater saphenous vein 2. Severe lifestyle limiting right lower extremity pain 3. Peripheral arterial disease, [place] 4 4. History of previous iliac stents Plan: 1. Encourage ambulation 2. Physical therapy consulted 3. Resume Plavix 4. Continue with pain management 5. Case management consulted for possible home care 6. Regular diet 7. Anticipate discharge tomorrow The impression and plan of care has been dictated as directed. Dr. Watkins I performed a history and examination of this patient, discussed the same with the dictator. I agree with the dictator's note ,documented as a scribe. Any additional findings or plans will be noted.
[2022-03-27] MEDS: levETIRAcetam 500 MG TAB PO SCH ×2 (10:00→20:48)
[2022-03-27] MEDS: FLUoxetine HCL 20 MG CAP PO SCH (10:00)
[2022-03-27] MEDS: carBAMazepine 100 MG TAB.ER.12H PO SCH ×2 (10:00→20:48)
[2022-03-27 12:16] LABS: Glucose,Whole Blood 113 mg/dL (70-110)
[2022-03-27 16:59] LABS: Glucose,Whole Blood 209 mg/dL (70-110)
--- NOTE | 2022-03-27 19:00 | P.CONS ---
History of Present Illness - Reason for Consult Consult date: 03/27/22 Medical management - Chief Complaint Right lower extremity pain/PVD - History of Present Illness 72-year-old female with significant peripheral arterial disease and previous bilateral total iliac stents who continues to have significant lifestyle limiting pain in her lower extremities worsened on the right with some evidence of rest pain. She has done all she can to improve her back pain and is wanting to go forward with surgical intervention for her peripheral arterial disease. Previously she had been worked up and found to be in need of a femoral to below- knee popliteal/tibial bypass with in situ saphenous vein that was of appropriate size; patient has severe peripheral arterial disease with [place] for right lower extremity with superficial femoral artery occlusion; patient is status post below knee femoralpopliteal bypass; POD #1 Internal medicine service is consulted for management of diabetes, hyperlipidemia, hypothyroidism, COPD and CVA/TIA Review of Systems REVIEW OF SYSTEMS: CONSTITUTIONAL: No fever, no malaise, no fatigue. HEENT: No recent visual problems or hearing problems. Denied any sore throat. CARDIOVASCULAR: No chest pain, orthopnea, PND, no palpitations, no syncope. PULMONARY: No shortness of breath, no cough, no hemoptysis. GASTROINTESTINAL: No diarrhea, no nausea, no vomiting, no abdominal pain. NEUROLOGICAL: No headaches, no weakness, no numbness. HEMATOLOGICAL: Denies any bleeding or petechiae. GENITOURINARY: Denies any burning micturition, frequency, or urgency. MUSCULOSKELETAL/RHEUMATOLOGICAL: Denies any joint pain, swelling, or any muscle pain. ENDOCRINE: Denies any polyuria or polydipsia. The rest of the 14-point review of systems is negative. 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 TIA X3, "many yrs ago", circulation problems, overactive bladder, vascular ischemia. 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 No CPAP/BIPAP use. Blocked artery in right leg. States has had a yeast infection for the last year. History of Any Multi-Drug Resistant Organisms: None Reported Past Surgical History: Appendectomy, Back Surgery, Bladder Surgery, Cholecystectomy, Hysterectomy, Joint Replacement Additional Past Surgical History / Comment(s): Bilateral knee replacements, right shoulder rotator cuff X2, bilateral iliac femoral stents, bladder suspension X2, right Mediport removed, left lung biopsy, lymph node biopsy, left groin biopsy(malignant). bilateral carpal tunnel, bilateral cataracts, right shoulder replacement. Past Anesthesia/Blood Transfusion Reactions: No Reported Reaction Additional Past Anesthesia/Blood Transfusion Reaction / Comm: Claustrophobic. Smoking Status: Former smoker - Past Family History Sister(s) Family Medical History: Cancer Additional Family Medical History / Comment(s): Lung cancer. Brother(s) Family Medical History: Cancer Additional Family Medical History / Comment(s): Lung cancer. Mother Family Medical History: Cancer Additional Family Medical History / Comment(s): Drugs and alcohol - of. Ear lobe cancer. Father Family Medical History: Cancer, Hyperlipidemia, Hypertension Additional Family Medical History / Comment(s): Skin cancer. Medications and Allergies Home Medications Medication Instructions Recorded Confirmed Type Clopidogrel [Plavix] 75 mg PO HS 08/15/16 03/26/22 History Levothyroxine Sodium [Synthroid] 25 mcg PO DAILY 08/15/16 03/26/22 History traZODone HCL [Desyrel] 150 mg PO HS 11/30/17 03/26/22 History Atorvastatin [Lipitor] 80 mg PO HS 07/25/20 03/26/22 History FLUoxetine HCL [PROzac] 40 mg PO DAILY 07/25/20 03/26/22 History carBAMazepine [TEGretol XR] 100 mg PO Q12H 07/25/20 03/26/22 History levETIRAcetam [Keppra] 500 mg PO BID 07/25/20 03/26/22 History Albuterol Sulfate [Ventolin HFA] 2 puff INHALATION RT-QID PRN 10/15/20 03/26/22 History Nystatin 100,000 Unit/gm Powd 1 applic TOPICAL BID PRN 10/15/20 03/26/22 History [Mycostatin Powder] HYDROcodone/APAP 5-325MG [[place] 1 each PO Q4HR PRN 2 Days #12 tab 03/27/22 Rx 5-325] Allergies Allergy/AdvReac Type Severity Reaction Status Date / Time erythromycin base Allergy Rash/Hives Verified 03/26/22 09:57 Fish Containing Products Allergy Anaphylaxis Verified 03/26/22 09:57 Penicillins Allergy Swelling Verified 03/26/22 09:57 shellfish derived [Shellfish] Allergy Anaphylaxis Verified 03/26/22 09:57 levofloxacin [From Levaquin] AdvReac Rash/Hives Verified 03/26/22 09:57 Physical Exam Vitals: Vital Signs Temp Pulse Pulse Resp BP BP Pulse Ox 03/27/22 08:51 97 03/27/22 08:00 97.8 F 78 18 97/47 98 03/27/22 03:13 97.9 F 83 16 97/62 97 03/27/22 00:00 97.6 F 84 16 100/64 95 03/26/22 20:00 97.5 F L 112 H 16 121/79 92 L 03/26/22 17:53 97.6 F 83 15 137/68 100 03/26/22 17:35 97.6 F 83 15 137/68 100 03/26/22 17:02 94 16 113/56 98 03/26/22 16:47 90 16 118/54 100 03/26/22 16:32 68 16 137/84 98 03/26/22 16:17 71 16 133/60 123/46 98 03/26/22 16:02 88 18 138/52 95 03/26/22 15:47 97.4 F L 104 H 18 150/65 94 L Intake and Output 03/26/22 03/27/22 03/27/22 22:59 06:59 14:59 Intake Total 700 990 354 Output Total 1000 800 Balance -300 190 354 Intake: IV 700 Intake, IV Titration 390 Amount Clindamycin 600 mg In 100 Dextrose 5% in Water 50 ml @ 50 mls/hr IVPB Q8H [facility] Rx#:[id number] Lactated Ringers 1,000 ml 240 @ 20 mls/hr IV .Q24H [facility] Rx#:[id number] ceFAZolin 2 gm In Sodium 50 Chloride 0.9% 50 ml @ 100 mls/hr IVPB ONCE PRN Rx# :[id number] Oral 600 354 Output: Urine 925 800 Estimated Blood Loss 75 Other: Voiding Method Indwelling Catheter Indwelling Catheter External Catheter # Bowel Movements 0 Weight 62 kg - Constitutional General appearance: Present: average body habitus, cooperative, no acute distress - EENT Eyes: Present: anicteric sclerae, EOMI, PERRLA, normal appearance ENT: Present: hearing grossly normal, normal oropharynx Ears: bilateral: normal - Neck Neck: Present: normal ROM. Absent: lymphadenopathy, rigidity, thyromegaly Carotids: negative: bruit present Thyroid: bilateral: normal size, negative: enlarged, nodule - Respiratory Respiratory: bilateral: CTA, negative: rales, rhonchi, wheezing - Cardiovascular Rhythm: regular Heart sounds: normal: S1, S2 Abnormal Heart Sounds: Absent: systolic murmur, diastolic murmur - Gastrointestinal General gastrointestinal: Present: normal bowel sounds, soft. Absent: distended, organomegaly, tenderness - Genitourinary Genitourinary Comment(s): deferred - Integumentary Integumentary: Present: normal turgor. Absent: jaundiced, rash, ulcer - Neurologic Neurologic: Present: CNII-XII intact. Absent: focal deficits - Musculoskeletal Musculoskeletal: Present: gait normal, strength equal bilaterally - Psychiatric Psychiatric: Present: A&O x's 3, appropriate affect, intact judgment & insight Results Labs: Abnormal Lab Results - Last 24 Hours (Table) 03/26/22 03/26/22 03/27/22 Range/Units 17:11 20:21 06:30 POC Glucose (mg/dL) 174 H 150 H 115 H (70-110) mg/dL 03/27/22 Range/Units 12:15 POC Glucose (mg/dL) 113 H (70-110) mg/dL Assessment and Plan Assessment: 1. Severe peripheral arterial disease/regular forward for right lower extremity with superficial femoral artery occlusion - Patient is status post right below-knee femoral-popliteal bypass; POD #1 - Your management 2. Hyperlipidemia; Lipitor 80 mg by mouth daily at bedtime 3. Seizure disorder; Keppra 500 mg twice a day along with Tegretol-XR 100 mg every 12 hours 4. CVA/TIA; patient is on Plavix 75 mg daily along with statin therapy 5. Hypothyroidism; levothyroxine 25 MCG daily 6. Asthma/COPD; albuterol inhaler 2 puffs 4 times a day when necessary 7. Depression/insomnia; Prozac 40 mg daily along with trazodone 150 mg by mouth daily at bedtime DVT prophylaxis; per surgery service CODE STATUS; full code
[2022-03-27 20:35] LABS: Glucose,Whole Blood 150 mg/dL (70-110)
[2022-03-27] MEDS ORDERED: ONDANSETRON 4 MG/2 ML VIAL IVP ONE (20:45)
[2022-03-27] MEDS: traZODone HCL 50 MG TAB PO SCH (20:48)
[2022-03-27] MEDS: CLOPIDOGREL 75 MG TAB PO SCH (20:48)
[2022-03-27] MEDS: ATORVASTATIN 80 MG TAB PO SCH (20:48)
[2022-03-28 05:53] LABS: Glucose,Whole Blood 105 mg/dL (70-110)
[2022-03-28] MEDS: LEVOTHYROXINE 25 MCG TAB PO SCH (06:28)
[2022-03-28] MEDS: levETIRAcetam 500 MG TAB PO SCH ×2 (08:42→20:24)
[2022-03-28] MEDS: FLUoxetine HCL 20 MG CAP PO SCH (08:42)
[2022-03-28] MEDS: carBAMazepine 100 MG TAB.ER.12H PO SCH ×2 (08:43→20:24)
[2022-03-28 10:26] LABS: Calcium 7.9 mg/dL (8.4-10.2); Potassium 4.3 mmol/L (3.5-5.1)
[2022-03-28 10:45] LABS: Basophils % (A) 1 %; Eosinophils # (A) 0.1 k/uL (0-0.7); Eosinophils % (A) 1 %; HCT 33.7 % (34.0-46.0); HGB 11.5 gm/dL (11.4-16.0); Lymphocytes # (A) 3.4 k/uL (1.0-4.8); Lymphocytes % (A) 38 %; MCH 33.5 pg (25.0-35.0); MCHC 34.1 g/dL (31.0-37.0); MCV 98.1 fL (80.0-100.0); Mean Platelet Volume 9.5; Monocytes # (A) 0.5 k/uL (0-1.0); Monocytes % (A) 5 %; Neutrophils # (A) 4.8 k/uL (1.3-7.7); Neutrophils % (A) 53 %; Platelet Count 149 k/uL (150-450); RBC 3.44 m/uL (3.80-5.40); RDW 12.6 % (11.5-15.5); WBC 9.1 k/uL (3.8-10.6)
[2022-03-28 12:11] LABS: Glucose,Whole Blood 110 mg/dL (70-110)
--- NOTE | 2022-03-28 14:46 | P.PN ---
Subjective Progress Note Date: 03/28/22 Patient seen and examined. No particular complaints. States her leg is a little bit sore but overall feels better than prior to surgery. Feels warmer. Can feel more. Yesterday she was up walking and did relatively well, apparently today she's been having more difficulty with ambulation. She is still adamant about not going to rehab Objective - Vital Signs Vital signs: Vital Signs Temp 98.7 F 03/28/22 03:33 Pulse 79 03/28/22 03:33 Resp 18 03/28/22 03:33 BP 92/49 03/28/22 03:33 Pulse Ox 95 03/28/22 03:33 FiO2 Intake & Output 03/27/22 03/28/22 03/28/22 18:59 06:59 18:59 Intake Total 594 118 Output Total 450 Balance 594 -450 118 Weight 62.5 kg Intake: Oral 594 118 Output: Urine 450 Other: Voiding Method External Catheter Toilet # Voids 1 2 - Exam No acute distress, laying in bed. Slightly depressed mood. Heart appears regular. Lungs clear, not wearing nasal cannula. Extremities warm and dry. Mild right lower extremity edema as expected. Dressings are clean dry and intact. Posterior tibial signal present as previous. - Labs CBC & Chem 7: 03/28/22 08:51 03/28/22 08:51 Labs: Abnormal Lab Results - Last 24 Hours (Table) 03/27/22 03/27/22 03/28/22 Range/Units 16:55 20:33 08:51 RBC 3.44 L (3.80-5.40) m/uL Hct 33.7 L (34.0-46.0) % Plt Count 149 L (150-450) k/uL Sodium (137-145) mmol/L BUN (7-17) mg/dL Glucose (74-99) mg/dL POC Glucose (mg/dL) 209 H 150 H (70-110) mg/dL Calcium (8.4-10.2) mg/dL 03/28/22 Range/Units 08:51 RBC (3.80-5.40) m/uL Hct (34.0-46.0) % Plt Count (150-450) k/uL Sodium 135 L (137-145) mmol/L BUN 20 H (7-17) mg/dL Glucose 100 H (74-99) mg/dL POC Glucose (mg/dL) (70-110) mg/dL Calcium 7.9 L (8.4-10.2) mg/dL Assessment and Plan Assessment: Postop right femoral to below-knee popliteal bypass with in situ saphenous vein Severe peripheral arterial disease Plan: Patient is definitely not cleared for surgery at this point as she does not appear to even be able to get out of bed on her own volition. Appears slightly more lackluster, not certain cause. Labs and vitals reviewed. No obvious abnormalities. Attempt to work with physical therapy. We discussed the importance of safety and how she would likely not be safe going home in this condition. She still again adamantly refuses any rehab facility. She states she understands and wants to be safe but 'there is no way she is going'continue to monitor, hopeful for slow improvement of the next few days and possible discharge home
[2022-03-28] MEDS ORDERED: SODIUM CHLORIDE 0.9% 500 ML 500 ML IV ONE (14:47)
[2022-03-28 17:08] LABS: Glucose,Whole Blood 106 mg/dL (70-110)
[2022-03-28 20:15] LABS: Glucose,Whole Blood 130 mg/dL (70-110)
[2022-03-28] MEDS: CLOPIDOGREL 75 MG TAB PO SCH (20:24)
[2022-03-28] MEDS: traZODone HCL 50 MG TAB PO SCH (20:24)
[2022-03-28] MEDS: ATORVASTATIN 80 MG TAB PO SCH (20:24)
[2022-03-29 04:14] LABS: Basophils % (A) 1 %; Eosinophils # (A) 0.1 k/uL (0-0.7); Eosinophils % (A) 2 %; HCT 33.9 % (34.0-46.0); HGB 11.6 gm/dL (11.4-16.0); Lymphocytes # (A) 3.2 k/uL (1.0-4.8); Lymphocytes % (A) 38 %; MCH 33.4 pg (25.0-35.0); MCHC 34.3 g/dL (31.0-37.0); MCV 97.2 fL (80.0-100.0); Monocytes # (A) 0.5 k/uL (0-1.0); Monocytes % (A) 6 %; Neutrophils # (A) 4.2 k/uL (1.3-7.7); Neutrophils % (A) 51 %; Platelet Count 160 k/uL (150-450); RBC 3.48 m/uL (3.80-5.40); RDW 12.5 % (11.5-15.5); WBC 8.2 k/uL (3.8-10.6)
[2022-03-29 04:23] LABS: Potassium 4.2 mmol/L (3.5-5.1)
[2022-03-29] MEDS: HYDROcodone/APAP 5-325MG 1 EACH TAB PO PRN ×2 (04:24→20:43)
[2022-03-29 05:55] LABS: Glucose,Whole Blood 107 mg/dL (70-110)
[2022-03-29] MEDS: LEVOTHYROXINE 25 MCG TAB PO SCH (06:25)
[2022-03-29] MEDS: LACTATED RINGERS 1,000 ML IV SCH (06:25)
[2022-03-29] MEDS: levETIRAcetam 500 MG TAB PO SCH ×2 (09:57→20:42)
[2022-03-29] MEDS: carBAMazepine 100 MG TAB.ER.12H PO SCH ×2 (09:58→20:43)
[2022-03-29] MEDS: FLUoxetine HCL 20 MG CAP PO SCH (09:58)
[2022-03-29 11:39] LABS: Glucose,Whole Blood 112 mg/dL (70-110)
--- NOTE | 2022-03-29 12:17 | P.PN ---
Subjective Progress Note Date: 03/28/22 72-year-old female with significant peripheral arterial disease and previous bilateral total iliac stents who continues to have significant lifestyle limiting pain in her lower extremities worsened on the right with some evidence of rest pain. She has done all she can to improve her back pain and is wanting to go forward with surgical intervention for her peripheral arterial disease. Previously she had been worked up and found to be in need of a femoral to below- knee popliteal/tibial bypass with in situ saphenous vein that was of appropriate size; patient has severe peripheral arterial disease with [place] for right lower extremity with superficial femoral artery occlusion; patient is status po st below knee femoralpopliteal bypass; POD #1 Internal medicine service is consulted for management of diabetes, hyperlipidemia, hypothyroidism, COPD and CVA/TIA Objective - Vital Signs Vital signs: Vital Signs Temp 98.7 F 03/28/22 03:33 Pulse 79 03/28/22 03:33 Resp 18 03/28/22 03:33 BP 92/49 03/28/22 03:33 Pulse Ox 95 03/28/22 03:33 FiO2 Intake & Output 03/27/22 03/28/22 03/28/22 18:59 06:59 18:59 Intake Total 594 Output Total 450 Balance 594 -450 Weight 62.5 kg Intake: Oral 594 Output: Urine 450 Other: Voiding Method External Catheter Toilet # Voids 1 - Exam - Constitutional General appearance: Present: average body habitus, cooperative, no acute distress - EENT Eyes: Present: anicteric sclerae, EOMI, PERRLA, normal appearance ENT: Present: hearing grossly normal, normal oropharynx Ears: bilateral: normal - Neck Neck: Present: normal ROM. Absent: lymphadenopathy, rigidity, thyromegaly Carotids: negative: bruit present Thyroid: bilateral: normal size, negative: enlarged, nodule - Respiratory Respiratory: bilateral: CTA, negative: rales, rhonchi, wheezing - Cardiovascular Rhythm: regular Heart sounds: normal: S1, S2 Abnormal Heart Sounds: Absent: systolic murmur, diastolic murmur - Gastrointestinal General gastrointestinal: Present: normal bowel sounds, soft. Absent: distended, organomegaly, tenderness - Genitourinary Genitourinary Comment(s): deferred - Integumentary Integumentary: Present: normal turgor. Absent: jaundiced, rash, ulcer - Neurologic Neurologic: Present: CNII-XII intact. Absent: focal deficits - Musculoskeletal Musculoskeletal: Present: gait normal, strength equal bilaterally - Psychiatric Psychiatric: Present: A&O x's 3, appropriate affect, intact judgment & insight - Labs CBC & Chem 7: 03/29/22 03:29 03/29/22 03:29 Labs: Abnormal Lab Results - Last 24 Hours (Table) 03/27/22 03/27/22 03/27/22 Range/Units 12:15 16:55 20:33 RBC (3.80-5.40) m/uL Hct (34.0-46.0) % Plt Count (150-450) k/uL Sodium (137-145) mmol/L BUN (7-17) mg/dL Glucose (74-99) mg/dL POC Glucose (mg/dL) 113 H 209 H 150 H (70-110) mg/dL Calcium (8.4-10.2) mg/dL 03/28/22 03/28/22 Range/Units 08:51 08:51 RBC 3.44 L (3.80-5.40) m/uL Hct 33.7 L (34.0-46.0) % Plt Count 149 L (150-450) k/uL Sodium 135 L (137-145) mmol/L BUN 20 H (7-17) mg/dL Glucose 100 H (74-99) mg/dL POC Glucose (mg/dL) (70-110) mg/dL Calcium 7.9 L (8.4-10.2) mg/dL Assessment and Plan Assessment: 1. Severe peripheral arterial disease/regular forward for right lower extremity with superficial femoral artery occlusion - Patient is status post right below-knee femoral-popliteal bypass; POD #1 - Your management 2. Hyperlipidemia; Lipitor 80 mg by mouth daily at bedtime 3. Seizure disorder; Keppra 500 mg twice a day along with Tegretol-XR 100 mg every 12 hours 4. CVA/TIA; patient is on Plavix 75 mg daily along with statin therapy 5. Hypothyroidism; levothyroxine 25 MCG daily 6. Asthma/COPD; albuterol inhaler 2 puffs 4 times a day when necessary 7. Depression/insomnia; Prozac 40 mg daily along with trazodone 150 mg by mouth daily at bedtime DVT prophylaxis; per surgery service CODE STATUS; full code
[2022-03-29 16:38] LABS: Glucose,Whole Blood 129 mg/dL (70-110)
--- NOTE | 2022-03-29 17:44 | P.PN ---
Subjective Progress Note Date: 03/29/22 Principal diagnosis: Severe peripheral arterial disease 72-year-old female with significant peripheral arterial disease and previous bilateral total iliac stents who continues to have significant lifestyle limiting pain in her lower extremities worsened on the right with some evidence of rest pain. She has done all she can to improve her back pain and is wanting to go forward with surgical intervention for her peripheral arterial disease. Previously she had been worked up and found to be in need of a femoral to below- knee popliteal/tibial bypass with in situ saphenous vein that was of appropriate size; patient has severe peripheral arterial disease with [place] for right lower extremity with superficial femoral artery occlusion; patient is status post below knee femoralpopliteal bypass; POD #1 Internal medicine service is consulted for management of diabetes, hyperlipidemia, hypothyroidism, COPD and CVA/TIA 03/28/2022 Patient is seen and evaluated in room at bedside; continues to report weakness with increase activity Vital signs are reviewed and remained stable Patient has been evaluated by physical therapy and is recommended skilled rehab, however patient is adamant to be discharged home Vascular surgery on board and recommending to continue to monitor patient with plans to discharge patient home with home health care if she still shows clinical improvement Objective - Vital Signs Vital signs: Vital Signs Temp 98.3 F 03/29/22 08:00 Pulse 72 03/29/22 08:00 Resp 18 03/29/22 08:00 BP 116/72 03/29/22 08:00 Pulse Ox 98 03/29/22 08:00 FiO2 Intake & Output 03/28/22 03/29/22 03/29/22 18:59 06:59 18:59 Intake Total 118 0 Output Total 500 Balance 118 -500 0 Weight 55.5 kg Intake: Oral 118 0 Output: Urine 500 Other: Voiding Method Toilet Toilet # Voids 2 1 - Exam - Constitutional General appearance: Present: average body habitus, cooperative, no acute distress - EENT Eyes: Present: anicteric sclerae, EOMI, PERRLA, normal appearance ENT: Present: hearing grossly normal, normal oropharynx Ears: bilateral: normal - Neck Neck: Present: normal ROM. Absent: lymphadenopathy, rigidity, thyromegaly Carotids: negative: bruit present Thyroid: bilateral: normal size, negative: enlarged, nodule - Respiratory Respiratory: bilateral: CTA, negative: rales, rhonchi, wheezing - Cardiovascular Rhythm: regular Heart sounds: normal: S1, S2 Abnormal Heart Sounds: Absent: systolic murmur, diastolic murmur - Gastrointestinal General gastrointestinal: Present: normal bowel sounds, soft. Absent: distended, organomegaly, tenderness - Genitourinary Genitourinary Comment(s): deferred - Integumentary Integumentary: Present: normal turgor. Absent: jaundiced, rash, ulcer - Neurologic Neurologic: Present: CNII-XII intact. Absent: focal deficits - Musculoskeletal Musculoskeletal: Present: gait normal, strength equal bilaterally - Psychiatric Psychiatric: Present: A&O x's 3, appropriate affect, intact judgment & insight - Labs CBC & Chem 7: 03/29/22 03:29 12 03:29 Labs: Abnormal Lab Results - Last 24 Hours (Table) 03/28/22 03/29/22 03/29/22 Range/Units 20:14 03:29 03:29 RBC 3.48 L (3.80-5.40) m/uL Hct 33.9 L (34.0-46.0) % Sodium 131 L (137-145) mmol/L BUN 18 H (7-17) mg/dL Glucose 103 H (74-99) mg/dL POC Glucose (mg/dL) 130 H (70-110) mg/dL Calcium 8.0 L (8.4-10.2) mg/dL 03/29/22 Range/Units 11:37 RBC (3.80-5.40) m/uL Hct (34.0-46.0) % Sodium (137-145) mmol/L BUN (7-17) mg/dL Glucose (74-99) mg/dL POC Glucose (mg/dL) 112 H (70-110) mg/dL Calcium (8.4-10.2) mg/dL Assessment and Plan Assessment: 1. Severe peripheral arterial disease/regular forward for right lower extremity with superficial femoral artery occlusion - Patient is status post right below-knee femoral-popliteal bypass; POD #1 - Your management 2. Hyperlipidemia; Lipitor 80 mg by mouth daily at bedtime 3. Seizure disorder; Keppra 500 mg twice a day along with Tegretol-XR 100 mg every 12 hours 4. CVA/TIA; patient is on Plavix 75 mg daily along with statin therapy 5. Hypothyroidism; levothyroxine 25 MCG daily 6. Asthma/COPD; albuterol inhaler 2 puffs 4 times a day when necessary 7. Depression/insomnia; Prozac 40 mg daily along with trazodone 150 mg by mouth daily at bedtime DVT prophylaxis; per surgery service CODE STATUS; full code
[2022-03-29] MEDS: ATORVASTATIN 80 MG TAB PO SCH (20:42)
[2022-03-29] MEDS: CLOPIDOGREL 75 MG TAB PO SCH (20:42)
[2022-03-29] MEDS: traZODone HCL 50 MG TAB PO SCH (20:43)
[2022-03-29 20:59] LABS: Glucose,Whole Blood 193 mg/dL (70-110)
[2022-03-30] MEDS: LEVOTHYROXINE 25 MCG TAB PO SCH (06:07)
[2022-03-30] MEDS: LACTATED RINGERS 1,000 ML IV SCH (06:07)
[2022-03-30 06:17] LABS: Glucose,Whole Blood 111 mg/dL (70-110)
[2022-03-30 07:55] LABS: Basophils % (A) 0 %; Eosinophils # (A) 0.2 k/uL (0-0.7); Eosinophils % (A) 2 %; HCT 36.8 % (34.0-46.0); HGB 12.4 gm/dL (11.4-16.0); Lymphocytes # (A) 2.9 k/uL (1.0-4.8); Lymphocytes % (A) 37 %; MCH 32.9 pg (25.0-35.0); MCHC 33.8 g/dL (31.0-37.0); MCV 97.4 fL (80.0-100.0); Mean Platelet Volume 9.1; Monocytes # (A) 0.5 k/uL (0-1.0); Monocytes % (A) 6 %; Neutrophils % (A) 52 %; Platelet Count 172 k/uL (150-450); RBC 3.78 m/uL (3.80-5.40); RDW 12.5 % (11.5-15.5); WBC 7.7 k/uL (3.8-10.6)
[2022-03-30 08:10] LABS: Calcium 8.1 mg/dL (8.4-10.2); Potassium 4.2 mmol/L (3.5-5.1)
[2022-03-30] MEDS: levETIRAcetam 500 MG TAB PO SCH (08:19)
[2022-03-30] MEDS: FLUoxetine HCL 20 MG CAP PO SCH (08:19)
[2022-03-30] MEDS: carBAMazepine 100 MG TAB.ER.12H PO SCH (08:20)
[2022-03-30 09:37] VITALS: TEMP 98.2
[2022-03-30 11:28] VITALS: BP 111/58; PULSE 74; RESP 18
[2022-03-30 11:41] LABS: Glucose,Whole Blood 167 mg/dL (70-110)
--- NOTE | 2022-03-30 11:44 | P.DS ---
Providers Date of admission: 03/26/22 09:21 Expected date of discharge: 03/30/22 Attending physician: Vonda Espinal DO Consults: 03/26/22 15:59 Consult Physician Routine Consulting Provider: Lise Winkler Consult Reason/Comments: med mgmnt Do you want consulting provider notified?: Yes Primary care physician: [facility] Course: Yehuda Hale is a 72-year-old female who has significant peripheral arterial disease and previous bilateral total iliac stents that continue to have lifestyle limiting pain to her lower extremities worse on the right. She underwent a right femoral to below knee popliteal bypass with in situ vein on 03/26/2022. patient has stated that the pain has improved since her surgery. Patient does use a rolling walker at home on a regular basis due to chronic back pain. She does live alone in a senior apartment so physical therapy was consulted and make sure patient was safe to return home with home care, as patient is refusing home subacute rehab. Evaluation was completed today and that they do report patient should be able to return to her senior apartment with home care. She has been afebrile, denies any shortness of breath or chest pain. No abdominal pain, nausea vomiting. She is up with assistance using her walker. Plan is for discharge home today, residential home care has been notified per case management. Discussed with patient to continue to monitor surgical sites, especially watch groin surgical incision site for drainage, redness and infection. Important to keep area clean and dry. Exam General appearance: The patient is alert, oriented, appears in no acute distress. HET: Head is normocephalic and atraumatic. Pupils are equal and reactive. Neck: Supple without lymphadenopathy. Trachea midline. Heart: Regular. Lungs: Equal expansion, normal respiratory effort. Abdomen: Soft, nontender, nondistended. Extremities: Normal skin color and turgor. Right lower extremity with multiple surgical sites with hector, well approximated. 2 incisions in the medial aspect of thigh with a scant amount of bleeding. Incision in the right groin well approximated with glue, no redness or drainage. Bilateral lower extremities warm to the touch with good capillary refill, right lower extremity with some swelling PT signal present. Neurological: No focal deficits. Alert and oriented 3. Procedures: Preoperative diagnosis: Severe lifestyle limiting right lower extremity pain, peripheral arterial disease, [place] 4 Postoperative diagnosis: Same Procedure: Right femoral to below knee popliteal bypass with in situ greater saphenous vein Patient Condition at Discharge: Stable Plan - Discharge Summary Discharge Rx Participant: Yes New Discharge Prescriptions: New HYDROcodone/APAP 5-325MG [[place] 5-325] 1 each PO Q4HR PRN 2 Days #12 tab PRN Reason: Pain Scale 6 To 7 Continue Clopidogrel [Plavix] 75 mg PO HS Levothyroxine Sodium [Synthroid] 25 mcg PO DAILY traZODone HCL [Desyrel] 150 mg PO HS Atorvastatin [Lipitor] 80 mg PO HS Nystatin 100,000 Unit/gm Powd [Mycostatin Powder] 1 applic TOPICAL BID PRN PRN Reason: Yeast Infection FLUoxetine HCL [PROzac] 40 mg PO DAILY carBAMazepine [TEGretol XR] 100 mg PO Q12H levETIRAcetam [Keppra] 500 mg PO BID Albuterol Sulfate [Ventolin HFA] 2 puff INHALATION RT-QID PRN PRN Reason: Shortness Of Breath Discharge Medication List Clopidogrel [Plavix] 75 mg PO HS 08/15/16 [History] Levothyroxine Sodium [Synthroid] 25 mcg PO DAILY 08/15/16 [History] traZODone HCL [Desyrel] 150 mg PO HS 11/30/17 [History] Atorvastatin [Lipitor] 80 mg PO HS 07/25/20 [History] FLUoxetine HCL [PROzac] 40 mg PO DAILY 07/25/20 [History] carBAMazepine [TEGretol XR] 100 mg PO Q12H 07/25/20 [History] levETIRAcetam [Keppra] 500 mg PO BID 07/25/20 [History] Albuterol Sulfate [Ventolin HFA] 2 puff INHALATION RT-QID PRN 10/15/20 [History] Nystatin 100,000 Unit/gm Powd [Mycostatin Powder] 1 applic TOPICAL BID PRN 10/15/20 [History] HYDROcodone/APAP 5-325MG [[place] 5-325] 1 each PO Q4HR PRN 2 Days #12 tab 03/27/22 [Rx] Follow up Appointment(s)/Referral(s): Pramod Reagan III, MD [Primary Care Provider] - 1 Week Residential Home,Health [NON-STAFF] - Vonda Espinal DO [STAFF PHYSICIAN] - 2 Weeks Patient Instructions/Handouts: Hydrocodone/Acetaminophen (By mouth), Femoropopliteal Bypass (DC) Activity/Diet/Wound Care/Special Instructions: No driving for 1-2 weeks Avoid heavy lifting greater than 10 lbs , pushing, pulling, straining, flights of stairs for three days. ok to shower but no baths, pools, soaking in tubs to avoid risk of infection until cleared by surgeon signs of infection ie: fever, rash, drainage from puncture site, swelling contact doctor or return to ER immediately. Heavy bleeding from incision site apply firm direct pressure and return to ER. Do not attempt to drive self. low sodium/low fat diet Discharge Disposition: HOME WITH HOME HEALTH SERVICES
--- NOTE | 2022-03-31 06:14 | P.PN ---
Subjective Progress Note Date: 03/30/22 Severe peripheral arterial disease 72-year-old female with significant peripheral arterial disease and previous bilateral total iliac stents who continues to have significant lifestyle limiting pain in her lower extremities worsened on the right with some evidence of rest pain. She has done all she can to improve her back pain and is wanting to go forward with surgical intervention for her peripheral arterial disease. Previously she had been worked up and found to be in need of a femoral to below- knee popliteal/tibial bypass with in situ saphenous vein that was of appropriate size; patient has severe peripheral arterial disease with [place] for right lower extremity with superficial femoral artery occlusion; patient is status post below knee femoralpopliteal bypass; POD #1 Internal medicine service is consulted for management of diabetes, hyperlipidemia, hypothyroidism, COPD and CVA/TIA 03/28/2022 Patient is seen and evaluated in room at bedside; continues to report weakness with increase activity Vital signs are reviewed and remained stable Patient has been evaluated by physical therapy and is recommended skilled rehab, however patient is adamant to be discharged home Vascular surgery on board and recommending to continue to monitor patient with plans to discharge patient home with home health care if she still shows clinical improvement 03/30/2022 She is seen and evaluated and follow-up currently sitting up in the chair. Patient is post below the knee fem-pop bypass with vascular surgery as admitting services. Patient reports she is being discharged today. Surgical site appears dry and intact with hector noted patient will need close outpatient follow-up with vascular surgery which has been scheduled. Patient is afebrile denies chest pain or shortness of breath. Patient reports the tolerating diet with no reports of nausea or vomiting noted. Patient is excited about going home. Recommend follow-up with primary care provider as well. Review of systems: Constitutional: No reports of fatigue, fever, or chills Cardiovascular: No reports of chest pain or palpitations Respiratory: No reports of shortness of breath or cough GI: No reports of nausea, vomiting, or diarrhea : No reports of dysuria or retention Neurovascular: No reports of weakness, reports some right leg tenderness All medications have been reviewed Physical exam: Gen: This is a 22-year-old female awake, alert and oriented 3, well-developed, well-nourished HEENT: Head is atraumatic, normocephalic. Pupils equal, round. Sclerae is anicteric. NECK: Supple. No JVD. No lymphadenopathy. No thyromegaly. LUNGS: Diminished breath sounds bilaterally with no wheezes or rhonchi. No intercostal retractions. HEART: S1, S2 are muffled. ABDOMEN: Soft. Bowel sounds are present. No masses. No tenderness. EXTREMITIES: No pedal edema. No calf tenderness. Right lower extremity surgical site appears dry and intact with hector noted and no surrounding redness or drainage noted NEUROLOGICAL: Patient is awake, alert and oriented x3. Cranial nerves 2 through 12 are grossly intact. Assessment: -Severe peripheral arterial disease of right lower extremity with superficial femoral artery occlusion, status post right below-knee femoral-popliteal bypass -Hyperlipidemia -Seizure disorder history -CVA/TIA -Hypothyroidism -Asthma/COPD -Depression/insomnia -DVT prophylaxis; per surgery service -full code Plan: Recommend continue current medications and management per vascular surgery. Home medications have been reviewed and resumed and recommend continue as prescribed and follow-up with primary care provider on discharge Surgical site appears dry and intact with hector noted and will be following in the outpatient setting closely with vascular surgery Patient has been evaluated by physical therapy and will be going home with home care Patient is scheduled for discharge this afternoon We will continue to follow with vascular surgery during hospitalization. Thank you kindly for this consultation. The impression and plan of care has been dictated by Alida Leal, Nurse Pr actitioner as directed. Dr. Nando MD I have performed a history and examination and MDM of this patient, discussed the same with the dictator, and agree with the dictator's assessment and plan as written ,documented as a scribe. Based on total visit time, I have performed more than 50% of the visit. Objective - Vital Signs Vital signs: Vital Signs Temp 98.2 F 03/30/22 08:20 Pulse 69 03/30/22 08:20 Resp 17 03/30/22 08:20 BP 102/55 03/30/22 08:20 Pulse Ox 97 03/30/22 08:20 FiO2 Intake & Output 03/29/22 03/30/22 03/30/22 18:59 06:59 18:59 Intake Total 236 118 Output Total 500 700 Balance -264 -700 118 Intake: Oral 236 118 Output: Urine 500 700 Other: Voiding Method Toilet Toilet Toilet # Voids 1 1 - Labs CBC & Chem 7: 03/30/22 07:05 03/30/22 07:05 Labs: Abnormal Lab Results - Last 24 Hours (Table) 03/29/22 03/29/22 03/29/22 Range/Units 11:37 16:37 20:57 RBC (3.80-5.40) m/uL Sodium (137-145) mmol/L Glucose (74-99) mg/dL POC Glucose (mg/dL) 112 H 129 H 193 H (70-110) mg/dL Calcium (8.4-10.2) mg/dL 03/30/22 03/30/22 03/30/22 Range/Units 06:15 07:05 07:05 RBC 3.78 L (3.80-5.40) m/uL Sodium 134 L (137-145) mmol/L Glucose 106 H (74-99) mg/dL POC Glucose (mg/dL) 111 H (70-110) mg/dL Calcium 8.1 L (8.4-10.2) mg/dL
== END 2022-03-30 13:48 | disposition home health service (06) | DRG 254 ==
LOC: 2ORMAIN 09:21 → 3SCARD 16:31
PROVIDERS: ADMIT Surgery; ATTEND Surgery
PROC: 06BP0ZZ Excision of Right Saphenous Vein, Open Approach (ICD-10-PCS; principal; 2022-03-26 11:00)
PROC: 041K09L Bypass Right Femoral Artery to Popliteal Artery with Autologous Venous Tissue, Open Approach (ICD-10-PCS; principal; 2022-03-26 11:00)
DX: I70.221 Atherosclerosis of native arteries of extremities with rest pain, right leg (principal); E11.51 Type 2 diabetes mellitus with diabetic peripheral angiopathy without gangrene; E03.9 Hypothyroidism, unspecified; J44.9 Chronic obstructive pulmonary disease, unspecified; G40.909 Epilepsy, unspecified, not intractable, without status epilepticus; F32.A Depression, unspecified; G47.00 Insomnia, unspecified; E78.5 Hyperlipidemia, unspecified; I34.0 Nonrheumatic mitral (valve) insufficiency; G24.9 Dystonia, unspecified; N32.81 Overactive bladder; G47.30 Sleep apnea, unspecified; R32 Unspecified urinary incontinence; G89.29 Other chronic pain; Z79.02 Long term (current) use of antithrombotics/antiplatelets; Z79.890 Hormone replacement therapy; Z79.899 Other long term (current) drug therapy; M54.9 Dorsalgia, unspecified; Z87.891 Personal history of nicotine dependence; Z95.820 Peripheral vascular angioplasty status with implants and grafts; Z96.653 Presence of artificial knee joint, bilateral; Z96.611 Presence of right artificial shoulder joint; Z86.73 Personal history of transient ischemic attack (TIA), and cerebral infarction without residual deficits; Z85.048 Personal history of other malignant neoplasm of rectum, rectosigmoid junction, and anus; Z87.442 Personal history of urinary calculi; Z92.21 Personal history of antineoplastic chemotherapy; Z88.1 Allergy status to other antibiotic agents; Z88.0 Allergy status to penicillin; Z91.013 Allergy to seafood; Z91.018 Allergy to other foods
CPT/HCPCS: 80048; 85025; 86850; 86900; 86901; 94760

== ENCOUNTER 2022-05-13 10:54 | Day surgery (SDC) | payer MEDICARE ==
[~2022-05-13 10:54] MED LIST changes: -DEXAMETHASONE SOD PHOSPHATE 4 MG/ML 1 ML VIAL IV ONE; -ONDANSETRON 4 MG/2 ML VIAL IVP ONE; +SODIUM CHLORIDE 0.9% 1,000 ML in EMPTY BAG 1 BAG IV ONE
[2022-05-13 11:41] LABS: Glucose,Whole Blood 119 mg/dL (70-110)
[2022-05-13 11:50] LABS: Basophils # (A) 0.1 k/uL (0-0.2); Basophils % (A) 1 %; Eosinophils # (A) 0.1 k/uL (0-0.7); Eosinophils % (A) 1 %; HCT 41.6 % (34.0-46.0); HGB 13.7 gm/dL (11.4-16.0); Lymphocytes % (A) 35 %; MCH 31.1 pg (25.0-35.0); MCHC 32.9 g/dL (31.0-37.0); MCV 94.7 fL (80.0-100.0); Mean Platelet Volume 8.2; Monocytes # (A) 0.3 k/uL (0-1.0); Monocytes % (A) 4 %; Neutrophils # (A) 4.9 k/uL (1.3-7.7); Neutrophils % (A) 57 %; Platelet Count 185 k/uL (150-450); RBC 4.39 m/uL (3.80-5.40); WBC 8.5 k/uL (3.8-10.6)
[2022-05-13 12:16] LABS: Calcium 8.7 mg/dL (8.4-10.2)
[2022-05-13 12:19] LABS: Potassium 5.4 mmol/L (3.5-5.1)
[2022-05-13] MEDS: fentaNYL (PF) 50 MCG/ML 2 ML AMP IV ONE ×4 (12:45→13:48)
[2022-05-13] MEDS: MIDAZOLAM 2 MG/2 ML VIAL IV ONE ×2 (12:45→12:48)
[2022-05-13] MEDS ORDERED: LIDOCAINE 1% INJ 10MG/ML (30 ML VIAL-PF) SQ ONE (12:48)
[2022-05-13] MEDS ORDERED: VERAPAMIL SYRINGE (5 MG/10 ML) INTRAARTER ONE (12:50)
[2022-05-13] MEDS ORDERED: HEPARIN SODIUM 1,000 UN/ML (10ML VL) IV ONE (13:28)
[2022-05-13] MEDS ORDERED: MIDAZOLAM 2 MG/2 ML VIAL IV ONE (13:48)
[2022-05-13] MEDS ORDERED: IOPAMIDOL-250 100ML BTL INTRAARTER ONE (14:14)
[2022-05-13] MEDS ORDERED: CLOPIDOGREL 75 MG TAB PO STA (14:15)
[2022-05-13] MEDS ORDERED: ASPIRIN 325 MG TAB PO STA (14:15)
[2022-05-13] MEDS ORDERED: HYDROcodone/APAP 5-325MG 1 EACH TAB PO STA (14:16)
--- NOTE | 2022-05-13 15:25 | IR ---
EXAMINATION TYPE: IR stent intravas non coronary DATE OF EXAM: 05/13/2022 CLINICAL HISTORY: Bypass graft occlusion TECHNIQUE: Fluoroscopy. COMPARISON: None. FINDINGS: Fluoroscopic guidance was provided during procedure performed by Dr. Espinal. A total of 12 .7 minutes of fluoroscopic time was utilized during the procedure. Please see separate report for pro cedural details. IMPRESSION: As Above.
--- NOTE | 2022-05-13 15:45 | P.OP ---
Date of Procedure: 05/13/22 Description of Procedure: Preoperative diagnosis: Duncan for peripheral arterial disease with rest pain, previous in situ vein bypass Postoperative diagnosis: Same Procedure: #1 ultrasound guided right posterior tibial artery access #2 right lower extremity angiogram #3 ultrasound guided right saphenous vein arterial bypass access #4 percutaneous transluminal balloon angioplasty right popliteal artery anastomosis #5 Percutaneous transluminal balloon angioplasty right arterial bypass graft #6 covered 5 x 10 Viabahn stent placement #7 Moderate conscious sedation time 90 minutes Surgeon: Vonda Espinal D.O. EBL: Less than 10 mL IV fluids: See records Urine output: Not measured Drains: None Complications: None immediately apparent Condition: Stable to recovery Operative indication and findings: Patient is a 72-year-old female who previously had rest pain and right lower extremity peripheral arterial disease who underwent a right femoral to below-knee popliteal/tibial peroneal trunk bypass. Initially she was feeling great however had increasing pain. On most recent ultrasound she is found to have a patent graft with nonvisualization of the distal anastomosis and no improvement of her EDENILSON therefore she was brought for angiographic imaging. Risks and benefits were discussed, she seemingly understood and was willing to proceed.] Procedure in detail: [Alexia was taken to the special suite and placed in supine position. The right lower exam is prepped and draped in usual sterile fashion. A preprocedure timeout was performed, all parties were in agreement. The patient was given IV sedation per the nurses personally monitored by myself. Starting with the ultrasound, the posterior tibial artery was identified. The skin overlying was anesthetized. Using Seldinger technique a 4-Chadian sheath was placed. An angiogram was performed showing a patent anterior tibial, posterior tibial, tibial peroneal trunk and peroneal vessel to the level of the. There is no obvious location or evidence of the anastomotic portion of the bypass. Minor attempts were made to try to access an area with a bypass should be but were obviously unsuccessful therefore attention was then turned towards the mid thigh an area of the pulsatile vessel. The skin overlying was anesthetized again using the ultrasound, the vessel is found be patent and free of thrombus. Permanent images were captured. Seldinger technique was used to place a 4-Chadian sheath. Initial image showed patent [place] vessel to the venous system there was no visualization of the bypass graft beyond the branch. Under fluoroscopy the point of the bypass was again identified and catheters wires were used and access the below-knee popliteal artery. A crossing catheter was then used to confirm luminal gain which appeared patent. A 4 x 120 balloon was utilized to angioplasty the popliteal artery anastomosis as well as the portion of the saphenous vein. Repeat imaging shows patency of this portion with evidence of improved flow. The distal anastomosis visualization was very difficult due to the knee hardware. Multiple angles were attempted to be taken. The image from the thigh did show adequate appearing flush through the vessel with washout of the infrapopliteal vessels. At that point it was decided to u psize the sheath at the posterior tibial artery in order to place a covered stent to exclude the large hypertrophied branch as well as cover the area where the previous access site. This was achieved with a 5 x 10 Viabahn covered stent. Repeat image from the catheter was then obtained showing adequate luminal gain. No contrast extravasation. Adequate flush through the vessel and good washout. Attempts to take a pedal image were performed but unsuccessful due to competitive flow. At the level of the sheath therapy to be pulsatile flow through the sheath at the posterior tibial artery. At that point catheters and wires were removed. The sheath was removed a TR band was placed.] Plan - Discharge Summary Discharge Rx Participant: No New Discharge Prescriptions: New HYDROcodone/APAP 5-325MG [[place] 5-325] 1 tab PO Q4HR PRN 3 Days #18 tab PRN Reason: Pain No Action Clopidogrel [Plavix] 75 mg PO HS Levothyroxine Sodium [Synthroid] 25 mcg PO DAILY traZODone HCL [Desyrel] 150 mg PO HS Atorvastatin [Lipitor] 80 mg PO HS Nystatin 100,000 Unit/gm Powd [Mycostatin Powder] 1 applic TOPICAL BID PRN PRN Reason: Yeast Infection FLUoxetine HCL [PROzac] 40 mg PO DAILY carBAMazepine [TEGretol XR] 100 mg PO Q12H levETIRAcetam [Keppra] 500 mg PO BID Albuterol Sulfate [Ventolin HFA] 2 puff INHALATION RT-QID PRN PRN Reason: Shortness Of Breath traMADol HCl [Ultram] 50 mg PO Q6HR PRN PRN Reason: Pain Discharge Medication List Clopidogrel [Plavix] 75 mg PO HS 08/15/16 [History] Levothyroxine Sodium [Synthroid] 25 mcg PO DAILY 08/15/16 [History] traZODone HCL [Desyrel] 150 mg PO HS 11/30/17 [History] Atorvastatin [Lipitor] 80 mg PO HS 07/25/20 [History] FLUoxetine HCL [PROzac] 40 mg PO DAILY 07/25/20 [History] carBAMazepine [TEGretol XR] 100 mg PO Q12H 07/25/20 [History] levETIRAcetam [Keppra] 500 mg PO BID 07/25/20 [History] Albuterol Sulfate [Ventolin HFA] 2 puff INHALATION RT-QID PRN 10/15/20 [History] Nystatin 100,000 Unit/gm Powd [Mycostatin Powder] 1 applic TOPICAL BID PRN 10/15/20 [History] traMADol HCl [Ultram] 50 mg PO Q6HR PRN 05/08/22 [History] HYDROcodone/APAP 5-325MG [Vining 5-325] 1 tab PO Q4HR PRN 3 Days #18 tab 05/13/22 [Rx] Follow up Appointment(s)/Referral(s): Vonda Espinal DO [STAFF PHYSICIAN] - 05/27/22 2:15 pm Patient Instructions/Handouts: Moderate Sedation (DC), Peripheral Vascular Angioplasty (DC) Activity/Diet/Wound Care/Special Instructions: Home & rest this evening. You may drive Wednesday. Remove dressing to right ankle tomorrow afternoon. No need to re-dress. You may shower tomorrow after dressing removal. No soaking puncture sites for 3 days (such as swim or tub). Discharge Disposition: HOME SELF-CARE
[2022-05-13] MEDS ORDERED: NYSTATIN 100,000 UNIT/GM POWD 15 GM TOPICAL PRN (16:02)
[2022-05-13] MEDS ORDERED: ALBUTEROL NEBULIZED 2.5 MG/3 ML INHALATION PRN (16:02)
[2022-05-13] MEDS ORDERED: traMADol 50 MG TAB PO PRN (16:02)
[2022-05-13 17:34] LABS: Glucose,Whole Blood 76 mg/dL (70-110)
[2022-05-13 20:43] LABS: Glucose,Whole Blood 105 mg/dL (70-110)
[2022-05-13] MEDS: HYDROcodone/APAP 5-325MG 1 EACH TAB PO PRN (20:55)
[2022-05-13] MEDS: carBAMazepine 100 MG TAB.ER.12H PO SCH (20:55)
[2022-05-13] MEDS: levETIRAcetam 500 MG TAB PO SCH (20:56)
[2022-05-13] MEDS ORDERED: CLOPIDOGREL 75 MG TAB PO SCH (21:00)
[2022-05-13] MEDS ORDERED: traZODone HCL 50 MG TAB PO SCH (21:00)
[2022-05-13] MEDS ORDERED: ATORVASTATIN 80 MG TAB PO SCH (21:00)
[2022-05-14 04:14] VITALS: PULSE 73
[2022-05-14] MEDS ORDERED: LEVOTHYROXINE 25 MCG TAB PO SCH (06:30)
[2022-05-14 08:00] VITALS: BP 108/70; RESP 18; TEMP 97.9
[2022-05-14] MEDS: levETIRAcetam 500 MG TAB PO SCH (08:34)
[2022-05-14] MEDS: HYDROcodone/APAP 5-325MG 1 EACH TAB PO PRN (08:35)
[2022-05-14] MEDS: carBAMazepine 100 MG TAB.ER.12H PO SCH (08:35)
--- NOTE | 2022-05-14 08:43 | P.DS ---
Providers Expected date of discharge: 05/14/22 Attending physician: Vonda Espinal DO Primary care physician: Pramod [facility] Course: 72-year-old female who came in for outpatient right lower extremity angiogram and stent for peripheral arterial disease with rest pain with previous in situ vein bypass. Following the procedure patient did have some increased pain, so patient was kept overnight for observation. She is postop day #1 for right lower extremity angiogram with percutaneous transluminal balloon angioplasty of the right popliteal artery anastomosis and angioplasty of the right arterial bypass graft with stent placement. Today she states she still has some pain however well managed with pain medication. She has been up and ambulating. She is tolerating her breakfast. She is voiding without difficulty. She's been afebrile. Patient is ready for discharge. Exam next lineGeneral appearance: The patient is alert, oriented, appears in no acute distress. HET: Head is normocephalic and atraumatic. Pupils are equal and reactive. Neck: Supple. Heart: Regular. Lungs: Equal expansion, normal respiratory effort. Abdomen: Soft, nontender, nondistended. Extremities: Normal skin color and turgor. Right lower extremity swelling. War m to the touch. Sensation intact, with good range of motion. Popliteal and posterior tibialis Doppler signal obtained. Good capillary refill. Neurological: No focal deficits. Strength and sensation are grossly intact. Assessment Right lower extremity peripheral arterial disease with rest pain with previous in situ vein bypass Right lower extremity angiogram with balloon angioplasty of the right popliteal artery anastomosis and right arterial bypass graft with Viabahn stent placement The impression and plan of care has been dictated as directed. Dr. Espinal I performed a history and examination of this patient, discussed the same with the dictator. I agree with the dictator's note ,documented as a scribe. Any additional findings or plans will be noted. Procedures: Procedure: #1 ultrasound guided right posterior tibial artery access #2 right lower extremity angiogram #3 ultrasound guided right saphenous vein arterial bypass access #4 percutaneous transluminal balloon angioplasty right popliteal artery anastomosis #5 Percutaneous transluminal balloon angioplasty right arterial bypass graft #6 covered 5 x 10 Viabahn stent placement #7 Moderate conscious sedation time 90 minutes Patient Condition at Discharge: Stable Plan - Discharge Summary Discharge Rx Participant: No New Discharge Prescriptions: New HYDROcodone/APAP 5-325MG [[place] 5-325] 1 tab PO Q4HR PRN 3 Days #18 tab PRN Reason: Pain No Action Clopidogrel [Plavix] 75 mg PO HS Levothyroxine Sodium [Synthroid] 25 mcg PO DAILY traZODone HCL [Desyrel] 150 mg PO HS Atorvastatin [Lipitor] 80 mg PO HS Nystatin 100,000 Unit/gm Powd [Mycostatin Powder] 1 applic TOPICAL BID PRN PRN Reason: Yeast Infection FLUoxetine HCL [PROzac] 40 mg PO DAILY carBAMazepine [TEGretol XR] 100 mg PO Q12H levETIRAcetam [Keppra] 500 mg PO BID Albuterol Sulfate [Ventolin HFA] 2 puff INHALATION RT-QID PRN PRN Reason: Shortness Of Breath traMADol HCl [Ultram] 50 mg PO Q6HR PRN PRN Reason: Pain Discharge Medication List Clopidogrel [Plavix] 75 mg PO HS 08/15/16 [History] Levothyroxine Sodium [Synthroid] 25 mcg PO DAILY 08/15/16 [History] traZODone HCL [Desyrel] 150 mg PO HS 11/30/17 [History] Atorvastatin [Lipitor] 80 mg PO HS 07/25/20 [History] FLUoxetine HCL [PROzac] 40 mg PO DAILY 07/25/20 [History] carBAMazepine [TEGretol XR] 100 mg PO Q12H 07/25/20 [History] levETIRAcetam [Keppra] 500 mg PO BID 07/25/20 [History] Albuterol Sulfate [Ventolin HFA] 2 puff INHALATION RT-QID PRN 10/15/20 [History] Nystatin 100,000 Unit/gm Powd [Mycostatin Powder] 1 applic TOPICAL BID PRN 10/15/20 [History] traMADol HCl [Ultram] 50 mg PO Q6HR PRN 05/08/22 [History] HYDROcodone/APAP 5-325MG [[place] 5-325] 1 tab PO Q4HR PRN 3 Days #18 tab 05/13/22 [Rx] Follow up Appointment(s)/Referral(s): Vonda Espinal DO [STAFF PHYSICIAN] - 05/27/22 2:15 pm Patient Instructions/Handouts: Peripheral Vascular Angioplasty (DC) Activity/Diet/Wound Care/Special Instructions: You may shower today. No soaking puncture sites for at least 3 days such as an bathtub or hot tub Discharge Disposition: HOME SELF-CARE
[2022-05-14] MEDS ORDERED: FLUoxetine HCL 20 MG CAP PO SCH (09:00)
[2022-05-14] MEDS ORDERED: ASPIRIN 81 MG PO SCH (09:00)
== END 2022-05-14 10:01 | disposition home or self-care (01) ==
LOC: CATHCVL 10:54 → 6NMEDSUR 14:08 → CATHCVL 05-14 10:01
PROVIDERS: ATTEND Surgery
DX: I70.221 Atherosclerosis of native arteries of extremities with rest pain, right leg (principal); I65.29 Occlusion and stenosis of unspecified carotid artery; I10 Essential (primary) hypertension; E11.51 Type 2 diabetes mellitus with diabetic peripheral angiopathy without gangrene; F17.200 Nicotine dependence, unspecified, uncomplicated; Z98.890 Other specified postprocedural states; Z79.01 Long term (current) use of anticoagulants; Z79.02 Long term (current) use of antithrombotics/antiplatelets; Z79.51 Long term (current) use of inhaled steroids; Z79.899 Other long term (current) drug therapy; Z79.1 Long term (current) use of non-steroidal anti-inflammatories (NSAID); Z79.891 Long term (current) use of opiate analgesic; Z88.0 Allergy status to penicillin; Z88.1 Allergy status to other antibiotic agents; Z90.49 Acquired absence of other specified parts of digestive tract
CPT/HCPCS: 37226; 80048; 85025; 75710; C1769 ×4; C1894; C1725 ×2; C1887; C1874; J2250; J2001; J3010; J1644; Q9966

== ENCOUNTER → 2022-07-24 | Outpatient (CLI) | payer MEDICARE ==
--- NOTE | 2022-07-24 16:17 | CT ---
EXAMINATION TYPE: CT angio abd aorta w/Runoff DATE OF EXAM: 07/24/2022 HISTORY: occulusion in rt leg CT DLP: 1959.8mGycm Automated Exposure Control for Dose Reduction was Utilized. CONTRAST: CTA scan of the abdomen and pelvis with bilateral lower extremity runoff is performed without oral an d without and with IV Contrast, patient injected with 100ml mL of Isovue 370. Three-D reconstructed i mages are created on an independent workstation and reviewed. COMPARISON: Prior CTA December 25, 2021. FINDINGS: VASCULAR: There is severe mixed but predominantly noncalcified plaque in the infrarenal abdominal aorta. There is patent celiac artery and SMA. There is new significant stenosis at SMA origin is present sagittal images 78 through 81. Tendinosis likely near 90%. Persistent significant stenosis in the proximal left renal artery coronal images 56 through 58 s imilar to prior study. Patent EVAN is redemonstrated. There is sho[place] AAA up to 3.5 cm transversely ax ial image 107 redemonstrated and stable. There is redemonstration of stent graft in the common iliac arteries bilaterally at origin. These rem ain patent. There is persistent moderate to severe mixed plaque remainder of common iliac arteries bi laterally through the branching point. There is more moderate mixed plaque in the external iliac miya adriana bilaterally without significant stenosis. Watrvgba-fu-yfiopl plaque extends into the internal il iac arteries bilaterally. There is more moderate to severe plaque at the bilateral groin or common fe moral artery level is redemonstrated. Interval surgery right groin level with scar tissue anteriorly. There is poor flow in the right super ficial femoral artery shortly after its origin. Areas of complete occlusion are noted. There is some reconstitution near the level of the right knee joint. Severe calcified plaque along the left superficial femoral artery with multifocal areas of significan t stenosis in the proximal to mid segment. There is better flow distally Past the knee joints there is greater degree and two-vessel flow in the left leg versus right leg. So me flow is present. Past history distal leg level there is suboptimal evaluation due to poor bolus. LUNG BASES: Persistent reticulation and groundglass opacities. Moderate left atrial dilatation. LIVER/GB: Small calcification in the posterior right hepatic dome redemonstrated. Cholecystectomy cli ps are redemonstrated. PANCREAS: No significant abnormality is seen. SPLEEN: No significant abnormality is seen. ADRENALS: No significant abnormality is seen. KIDNEYS: Some cortical thinning bilaterally. A few small simple appearing thin-walled cyst in the lef t kidney are redemonstrated. Some curvilinear calcification anteriorly in the right kidney redemonstr ated BOWEL: No significant abnormality is seen. UTERUS/ADNEXA: Uterus is surgically absent. LYMPH NODES: No greater than 1cm abdominal or pelvic lymph nodes are appreciated. OSSEOUS STRUCTURES: Postsurgical change L4-S1 levels with posterior interpedicular rods and screws an d artificial disc material. Severe compression type fracture L1 level with sclerosis is redemonstrate d. Moderate axial joint space loss with moderate acetabular spurring of both hips. 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 Moderate to severe multilevel la teral spurring in the lower thoracic spine it is redemonstrated. Lower extremities: Metallic artifact from bilateral knee arthroplasty causes streak artifact. OTHER: No significant additional abnormality is seen. IMPRESSION: 1. Short segment common iliac arterial stents bilaterally remain patent. Stable infrarenal AAA up to 3.5 cm. Severe mixed but probably noncalcified plaque in the infrarenal a bdominal aorta shows continued progression. Severe peripheral arterial disease bilaterally redemonstr ated with bilateral significant stenosis again seen. Areas of complete occlusion bilaterally redemons trated. New significant stenosis in the SMA is noted. Persistent significant stenosis in the left chrissy al artery.
== END | disposition home or self-care (01) ==
LOC: RADCTMAIN 14:02
PROVIDERS: ATTEND Surgery
DX: I73.9 Peripheral vascular disease, unspecified (principal); I71.43 Infrarenal abdominal aortic aneurysm, without rupture; I70.1 Atherosclerosis of renal artery
CPT/HCPCS: 82565; 84520; 75635; 36415; Q9967

== ENCOUNTER 2022-08-07 09:47 | Inpatient (IN) | payer MEDICARE ==
[2022-08-03 12:09] VITALS: BMI 28.3
[2022-08-07] MEDS: HYDROmorphone 0.5 MG/0.5 ML SYRINGE IVP PRN ×2 (06:45→20:06)
[~2022-08-07 09:47] MED LIST changes: +DEXAMETHASONE SOD PHOSPHATE 4 MG/ML 1 ML VIAL IV ONE; +HEPARIN SODIUM IRRIGATION SCH; +LACTATED RINGERS IRRIGATION SCH; +MIDAZOLAM 2 MG/2 ML VIAL IV PRN; +ONDANSETRON 4 MG/2 ML VIAL IVP ONE; -SODIUM CHLORIDE 0.9% 1,000 ML in EMPTY BAG 1 BAG IV ONE
[2022-08-07] MEDS: LACTATED RINGERS 1,000 ML IV SCH ×2 (10:30→10:35)
[2022-08-07 10:36] LABS: HCT 38.5 % (34.0-46.0); HGB 12.6 gm/dL (11.4-16.0); MCH 30.6 pg (25.0-35.0); MCHC 32.8 g/dL (31.0-37.0); MCV 93.5 fL (80.0-100.0); Mean Platelet Volume 8.3; Platelet Count 193 k/uL (150-450); RBC 4.11 m/uL (3.80-5.40); RDW 13.9 % (11.5-15.5); WBC 8.6 k/uL (3.8-10.6)
[2022-08-07 10:38] LABS: Glucose,Whole Blood 113 mg/dL (70-110)
[2022-08-07 10:52] LABS: Prothrombin Time 10.8 sec (9.0-12.0)
[2022-08-07] MEDS ORDERED: DEXTROSE 5%-LACTATED RINGERS 1,000 ML IV ONE (11:00)
[2022-08-07] MEDS ORDERED: fentaNYL (PF) 50 MCG/ML 2 ML AMP IVP ONE (11:15)
[2022-08-07] MEDS ORDERED: fentaNYL (PF) 50 MCG/ML 2 ML AMP ONE (12:33)
[2022-08-07] MEDS ORDERED: PROPOFOL 10 MG/ML 20 ML VIAL IV ONE (12:33)
[2022-08-07] MEDS ORDERED: ePHEDrine 50 MG/ML 1 ML VIAL ONE (12:33)
[2022-08-07] MEDS ORDERED: MIDAZOLAM 2 MG/2 ML VIAL ONE (12:33)
[2022-08-07] MEDS ORDERED: HEPARIN SODIUM,PORCINE 10,000 UNIT/ML 1 ML VIAL ONE (12:33)
[2022-08-07] MEDS ORDERED: SUCCINYLCHOLINE CHLORIDE 200 MG/10 ML VIAL IV ONE (12:33)
[2022-08-07] MEDS ORDERED: LIDOCAINE 2% INJ 20 MG/ML (2 ML VIAL) ONE (12:33)
[2022-08-07] MEDS ORDERED: ROCURONIUM 10 MG/ML (5 ML VIAL) IV ONE (12:33)
[2022-08-07] MEDS ORDERED: HYDROmorphone (PF) 1 MG/ML ONE (12:33)
[2022-08-07] MEDS ORDERED: ceFAZolin 1,000 MG in SODIUM CHLORIDE 0.9% 500 ML IRRIGATION ONE (13:45)
[2022-08-07] MEDS ORDERED: HEPARIN SODIUM,PORCINE 10,000 UNIT in SODIUM CHLORIDE 0.9% 1,000 ML IRRIGATION ONE (13:45)
[2022-08-07 15:05] LABS: Appearance,Urine Cloudy (Clear); Bacteria,Urine Occasional /hpf; Bilirubin,Urine Negative (Negative); Blood,Urine Small (Negative); Calcium Oxalate Crystals,Urine Few /hpf; Color,Urine Yellow; Glucose,Urine (UA) Negative (Negative); Ketones,Urine Negative (Negative); Leukocyte Esterase,Urine Large (Negative); Mucus,Urine Rare /hpf; Nitrite,Urine Negative (Negative); PH, Urine 5.5 (5.0-8.0); Protein,Urine 1+ (Negative); RBC,Urine 22 /hpf (0-5); Specific Gravity,Urine 1.019 (1.001-1.035); Squamous Epithelial Cell,Urine 1 /hpf (0-4); Urobilinogen,Urine <2.0 mg/dL (<2.0); WBC,Urine >182 /hpf (0-5)
[2022-08-07] MEDS ORDERED: LACTATED RINGERS 1,000 ML IV ONE (16:56)
[2022-08-07] MEDS ORDERED: ONDANSETRON 4 MG/2 ML VIAL IVP PRN (17:36)
[2022-08-07] MEDS ORDERED: MORPHINE SULFATE 2 MG/ML SYRINGE IVP PRN (17:36)
--- NOTE | 2022-08-07 17:52 | P.OP ---
Date of Procedure: 08/07/22 Description of Procedure: Preoperative diagnosis: Duncan four severe peripheral arterial disease, critical limb ischemia, superficial femoral artery occlusion, popliteal artery occlusion Postoperative diagnosis: Same Procedure: Right femoral to anterior tibial artery bypass with CryoVein Femoral cutdown, redo groin greater than 30 days Surgeon: Vonda Espinal D.O. Bag Maker: Aaron Watkins D.O. EBL: 100 mL] IV fluids: See records Drains: None Urine output: See records Specimen: Right femoral tissue Complications: None Condition: Stable, extubated in the OR to PACU Operative indication and findings: The patient is a 72-year-old female. She has undergone multiple previous bypasses, the most recent one has now thrombosed and she continues to have severe rest pain. Imaging was performed showing midcalf reconstitution of the tibial vessels therefore the decision was made to go forward with a femoral anterior tibial vessel bypass. Risks and benefits were discussed including but not limited to bleeding, infection, limb loss, heart attack, poor wound healing and . The patient seemingly understood and was willing to proceed. Procedure in detail: Patient taken to the operative suite placed in supine position and intubated. A Espinal catheter was placed. The abdomen and right lower extremity prepped and draped in usual sterile fashion. A preprocedure timeout was performed and all parties are in agreement. Longitudinal incision was made in the right groin with the scalpel in the area of previous incisions. There was very dense scar tissue. It was deepened through subcutaneous tissues with electrocautery. Tedious dissection was performed. There was an area of a mass, uncertain of this was continued scar tissue versus nodes but it was excised and sent for pathology. The dissection was extended proximally to the level of the inguinal ligament. The external iliac artery at this level was encircled with vessel loops proximally. Further dissection was carried distally with care to leave the vein intact, and avoid the nerve which was very densely scarred in both manners. The distal portion where the previous bypass was identified was partially dissected to allow for distal occlusion with a clamp.. This took a considerable amount of time due to the significant scar tissue. Once proper control was obtained, Attention was then turned towards the below-knee incision. It was made in the lateral border of the tibia, between the fibula. The intermuscular septum was identified and dissection was carried down through the fascial plane, beyond the anterior tibialis muscle. The neurovascular bundle was identified. The lateral anterior tibial vein was dissected free from the artery. The anterior tibial artery itself was very diminutive in size. The anterior tibial artery was then encircled proximally and distally. Doppler was used to ensure flow at the vessel, it was difficult to obtain.. The cadaver vein was prepped. A tunnel laterally was performed and the vein was placed. At that point the patient was heparinized and ACT is were followed. Once heparinization was adequate, flow was occluded through the vessel. An 11 blade was utilized and arteriotomy is made the Hunt-Ya scissors was utilized to enlarge the arteriotomy. There was good inflow from the proximal artery. There was significant scarring tissue and some posterior wall plaque however it did not seem to be obstructive in the in-line luminal flow. . An anastomosis cr eated using 5-0 Prolene between the femoral artery and the cadaver vein. An arteriotomy of the anterior tibial artery was then performed. There was evidence of good backbleeding. The vein was cut to size and spatulated. Utilizing 7-0 Prolene an anastomosis was created. Hemostasis was achieved with interrupted sutures of 6-0 Prolene and Surgicel. At this point all anastomoses were completed and flow was resumed through the bypass graft. A Doppler was utilized to confirm multiphasic flow distally to the anastomosis. Unfortunately this time it did appear that at the proximal site there was significant redundance of the vein therefore flow was again stopped through the vessel and a portion of the vein graft was transected. Primary anastomosis was performed with 6-0 Prolene. Flow was resumed and the sizing appeared much more adequate at this point. The wound was copiously irrigated with antibiotic solution. The femoral sheath and scar tissue was reapproximated with interrupted sutures of 3- 0 Vicryl. The subcuticular tissue was reapproximated with 3-0 Vicryl. The skin was reprepped with running sutures of 4-0 Monocryl. The deep dermal tissues of the lateral incision at the calf were reapproximated with 3-0 Vicryl. The subcutaneous tissues were reapproximated with 3-0 Vicryl and the skin was reapproximated with running 4-0 Monocryl in subcuticular fashion. Dressings we re placed. The patient was extubated and transferred to recovery in stable condition having tolerated the procedure well.
[2022-08-07] MEDS ORDERED: NYSTATIN 100,000 UNIT/GM POWD 15 GM TOPICAL PRN (18:38)
[2022-08-07] MEDS ORDERED: ALBUTEROL NEBULIZED 2.5 MG/3 ML INHALATION PRN (18:38)
--- NOTE | 2022-08-07 18:46 | P.ANPRN ---
Procedure Note - Anesthesia - Invasive Line Left Arterial Line Time Out Performed: Yes (1115) Date of Procedure: 08/07/22 Time of Procedure: 11:16 Location of Patient: PreOp Preparation: Sterile Prep, Sterile Dressing Arterial Line Location: Radial Ultrasound Used: Yes Purpose - Visualization and Identification of Vasculature: Yes Needle Guage: 20g Image Stored and Saved: Yes Narrative: Central line placement per sterile protocol utilized.
[2022-08-07] MEDS: carBAMazepine 200 MG TAB PO SCH (20:06)
[2022-08-07] MEDS: traZODone HCL 100 MG TAB PO SCH (20:06)
[2022-08-07] MEDS: ATORVASTATIN 80 MG TAB PO SCH (20:06)
[2022-08-07] MEDS: GABAPENTIN 300 MG CAP PO SCH (20:06)
[2022-08-07] MEDS: levETIRAcetam 500 MG TAB PO SCH (20:06)
[2022-08-07 20:09] LABS: Glucose,Whole Blood 147 mg/dL (70-110)
[2022-08-08] MEDS: SODIUM CHLORIDE 0.9% 1,000 ML IV SCH ×3 (00:29→19:53)
[2022-08-08] MEDS: HYDROcodone/APAP 5-325MG 1 EACH TAB PO PRN ×2 (05:03→17:05)
[2022-08-08] MEDS: LEVOTHYROXINE 25 MCG TAB PO SCH (05:03)
[2022-08-08 06:14] LABS: Glucose,Whole Blood 112 mg/dL (70-110)
[2022-08-08] MEDS: GABAPENTIN 300 MG CAP PO SCH ×3 (08:22→20:13)
[2022-08-08] MEDS: levETIRAcetam 500 MG TAB PO SCH ×2 (08:22→20:13)
[2022-08-08] MEDS: carBAMazepine 200 MG TAB PO SCH ×2 (08:22→20:13)
[2022-08-08] MEDS: FLUoxetine HCL 20 MG CAP PO SCH (08:22)
--- NOTE | 2022-08-08 09:08 | P.PN ---
Subjective Progress Note Date: 08/08/22 Postop day #1 status post right femoral to anterior tibial bypass. Objective - Vital Signs Vital signs: Vital Signs Temp 97.9 F 08/08/22 08:19 Pulse 63 08/08/22 08:19 Resp 16 08/08/22 08:19 BP 84/54 08/08/22 08:19 Pulse Ox 96 08/08/22 08:19 FiO2 Intake & Output 08/07/22 08/08/22 08/08/22 18:59 06:59 18:59 Intake Total 2051 130 Output Total 750 510 Balance 1302 -510 130 Weight 75.7 kg Intake: IV 2051 20 Invasive Line 1 10 Invasive Line 2 10 Oral 110 Output: Urine 650 510 Uretheral (Espinal) 60 Estimated Blood Loss 100 Other: Voiding Method Indwelling Catheter Indwelling Catheter - Exam Patient is awake and alert. She indicates that her right foot pain is improved compared to preop. She indicates she is able to wiggle her toes at an improved level when compared to preop. Provine is noted in the right groin. Minimal drainage is collected in the canister. The patient has a palpable dorsalis pedis pulse. There is no leg edema. Toes are freely movable and remain somewhat tender due to neuropathy as opposed ischemia. I discussed with the patient her current progress which appears to be white satisfactory. We will ask physical therapy to assist with ambulation. We will place her on aspirin 81 mg daily. She is already on Neurontin. We await morning labs. Hopefully the patient would be in a position to be discharged tomorrow pending physical therapy recommendations. She does live alone and has to talks to take care of. - Labs CBC & Chem 7: 08/07/22 10:30 08/07/22 10:25 Labs: Abnormal Lab Results - Last 24 Hours (Table) 08/07/22 08/07/22 08/07/22 Range/Units 10:28 13:28 20:07 POC Glucose (mg/dL) 113 H 147 H (70-110) mg/dL Urine Appearance Cloudy H (Clear) Urine Protein 1+ H (Negative) Urine Blood Small H (Negative) Ur Leukocyte Esterase Large H (Negative) Urine RBC 22 H (0-5) /hpf Urine WBC >182 H (0-5) /hpf Calcium Oxalate Crystal Few H (None) /hpf Urine Bacteria Occasional H (None) /hpf Urine Mucus Rare H (None) /hpf 08/08/22 Range/Units 06:12 POC Glucose (mg/dL) 112 H (70-110) mg/dL Urine Appearance (Clear) Urine Protein (Negative) Urine Blood (Negative) Ur Leukocyte Esterase (Negative) Urine RBC (0-5) /hpf Urine WBC (0-5) /hpf Calcium Oxalate Crystal (None) /hpf Urine Bacteria (None) /hpf Urine Mucus (None) /hpf Assessment and Plan Assessment: 1. Postop day #1, satisfactory progress with palpable dorsalis pedis pulse. 2. Resolving neuropathy. Continue Neurontin. 3. Restart aspirin and Plavix. 4. PT/OT evaluation. Plan: 1. Please see above. Time with Patient: Less than 30
[2022-08-08] MEDS: ASPIRIN 81 MG PO SCH (11:10)
[2022-08-08] MEDS: PANTOPRAZOLE 40 MG TABLET PO SCH (11:10)
[2022-08-08 11:47] LABS: Glucose,Whole Blood 121 mg/dL (70-110)
--- NOTE | 2022-08-08 15:35 | P.CONS ---
History of Present Illness - Reason for Consult Consult date: 08/08/22 medical management Requesting physician: Vonda Espinal - History of Present Illness This is a pleasant 72 year old female with medical history of COPD, CVA/TIA, diabetes mellitus, hyperlipidemia, sleep apnea, peripheral vascular disease, anal cancer with chemo and radiation. Patient found to have severe peripheral arterial disease with symptoms of neuropathy and patient opted to undergo vascular repair. Patient is admitted to hospital under vascular surgery. Patient is postoperative day #1 right femoral to anterior tibial bypass. Currently patient is resting in bed and does report sharp pain the the right lower extremity and foot. Rating pain about a 6/10, not wanting any pain medication at this time. Has prevana pump in place to the right groin with minimal drainage. No complaints of shortness of breath at this time. Blood count is unremarkable, blood glucose remains controlled at this time. Patient denies any urinary symptoms, no dysuria, no urgency however did have urinalysis completed showing large leukocyte esterase and >182 WBC. Urine culture pending. Patient is being monitored off antibiotics. REVIEW OF SYSTEMS: CONSTITUTIONAL: No fever, no malaise, no fatigue. HEENT: No recent visual problems or hearing problems. Denied any sore throat. CARDIOVASCULAR: No chest pain, orthopnea, PND, no palpitations, no syncope. PULMONARY: No shortness of breath, no cough, no hemoptysis. GASTROINTESTINAL: No diarrhea, no nausea, no vomiting, no abdominal pain. NEUROLOGICAL: No headaches, no weakness, no numbness. HEMATOLOGICAL: Denies any bleeding or petechiae. GENITOURINARY: Denies any burning micturition, frequency, or urgency. MUSCULOSKELETAL/RHEUMATOLOGICAL: Reports burning pain 6/10 to the right leg ENDOCRINE: Denies any polyuria or polydipsia. The rest of the 14-point review of systems is negative. PHYSICAL EXAMINATION: GENERAL: The patient is alert and oriented x3, not in any acute distress. Well developed, well nourished. HEENT: Pupils are round and equally reacting to light. EOMI. No scleral icterus. No conjunctival pallor. Normocephalic, atraumatic. No pharyngeal erythema. No thyromegaly. CARDIOVASCULAR: S1 and S2 present. No murmurs, rubs, or gallops. PULMONARY: Chest is clear to auscultation, no wheezing or crackles. ABDOMEN: Soft, nontender, nondistended, normoactive bowel sounds. No palpable organomegaly. MUSCULOSKELETAL: No joint swelling or deformity. EXTREMITIES: No cyanosis, clubbing, or pedal edema. prevana pump in place right groin +2 pedal pulse Dressing intact to right funes NEUROLOGICAL: Gross neurological examination did not reveal any focal deficits. SKIN: No rashes. Assessment and Plan Assessment Severe peripheral arterial disease and critical limb ischemia status post right femoral to anterior tibial artery bypass Abnormal urine most likely an aysmptomatic bacteriurea patient has no urinary symptoms, no fever and no white count Diabetes Mellitus type 2 blood glucose is currently controlled Hyperlipidemia Hx of brain/AAA aneurysm History of COPD with no acute exacerbation History or CVA/TIA Hx of anal cancer with chemo and radiation Anxiety/Depression Former Smoker GI Prophylaxis DVT Prophylaxis Full Code Plan Continue on home medications which have been resumed PT/OT evaluation has been requested Continue with prevana pump to the right groin per primary services Urine culture pending and continue to monitor patient off antibiotics at this time Pain management and bowel regimen in place Thank you kindly for this consultation The impression and plan of care has been dictated by Margarita Lyons, Nurse Practitioner as directed. Dr. Cathi MD I have performed a history and physical examination and medical decision making of this patient, discussed the same with the dictator, and agree with the dictators assessment and plan as written, documented as a scribe. Based on total visit time, I have performed more than 50% of this visit. 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 ,States yeast infection in genital area and folds of abd., diet controlled diabetes., has stimulator left hip for back pain (not working)., PAD. History of Any Multi-Drug Resistant Organisms: None Reported Past Surgical History: Appendectomy, Back Surgery, Bladder Surgery, Cholecystectomy, Hysterectomy, Joint Replacement Additional Past Surgical History / Comment(s): Bilateral knee replacements, right shoulder rotator cuff X2, bilateral iliac femoral stents, bladder suspension X2, right Mediport removed, left lung biopsy, lymph node biopsy, left groin biopsy(malignant). bilateral carpal tunnel, bilateral cataracts, right kenyon ulder replacement. stimulator in hip (left) for back, bilateral iliac arterial stents. Past Anesthesia/Blood Transfusion Reactions: No Reported Reaction, Family History of Problems w/ Anesthesia Additional Past Anesthesia/Blood Transfusion Reaction / Comm: Claustrophobic., vomited and aspirated during colonoscopy. son had difficulty waking up after surgery Past Psychological History: Anxiety, Depression Smoking Status: Former smoker, Vaper Past Alcohol Use History: None Reported Additional Past Alcohol Use History / Comment(s): quit smoking 6 months ago, smoked 1 ppd for over 50 years. vapes daily. Past Drug Use History: None Reported - Past Family History Sister(s) Family Medical History: Cancer Additional Family Medical History / Comment(s): Lung cancer. other sister heart failure Brother(s) Family Medical History: Cancer Additional Family Medical History / Comment(s): Lung cancer. Mother Family Medical History: Cancer Additional Family Medical History / Comment(s): Drugs and alcohol - of. Ear lobe cancer. Father Family Medical History: Cancer, Hyperlipidemia, Hypertension Additional Family Medical History / Comment(s): Skin cancer. Medications and Allergies Home Medications Medication Instructions Recorded Confirmed Type Clopidogrel [Plavix] 75 mg PO HS 08/15/16 08/03/22 History Levothyroxine Sodium [Synthroid] 25 mcg PO DAILY 08/15/16 08/03/22 History traZODone HCL [Desyrel] 150 mg PO HS 11/30/17 08/03/22 History Atorvastatin [Lipitor] 80 mg PO HS 07/25/20 08/03/22 History FLUoxetine HCL [PROzac] 40 mg PO DAILY 07/25/20 08/03/22 History levETIRAcetam [Keppra] 500 mg PO BID 07/25/20 08/03/22 History Albuterol Sulfate [Ventolin HFA] 2 puff INHALATION RT-QID PRN 10/15/20 08/03/22 History Nystatin 100,000 Unit/gm Powd 1 applic TOPICAL BID PRN 10/15/20 08/03/22 History [Mycostatin Powder] HYDROcodone/APAP 5-325MG [[place] 1 tab PO Q4HR PRN 3 Days #18 tab 05/13/22 Rx 5-325] Gabapentin [Neurontin] 300 mg PO TID 08/03/22 08/03/22 History Tylenol (Unknown Dose) 3 tab PO DIRECTED PRN 08/03/22 History carBAMazepine [TEGretol] 200 mg PO BID 08/03/22 08/03/22 History Allergies Allergy/AdvReac Type Severity Reaction Status Date / Time erythromycin base Allergy Rash/Hives Verified 08/03/22 11:19 Fish Containing Products Allergy Anaphylaxis Verified 08/03/22 11:19 Penicillins Allergy Swelling Verified 08/03/22 11:19 shellfish derived [Shellfish] Allergy Anaphylaxis Verified 08/03/22 11:19 levofloxacin [From Levaquin] AdvReac Rash/Hives, Verified 08/03/22 11:19 swelling Physical Exam Vitals: Vital Signs Temp Pulse Resp BP BP BP Pulse Ox 08/08/22 08:19 97.9 F 63 16 84/54 82/52 96 08/08/22 04:00 79 18 94/56 91 L 08/08/22 01:24 78 18 08/08/22 00:00 78 18 110/52 94 L 08/07/22 20:00 97.8 F 80 18 93/56 92 L 08/07/22 18:15 74 16 125/58 98 08/07/22 18:00 79 16 114/59 98 08/07/22 17:45 82 16 131/59 98 08/07/22 17:30 71 16 125/59 96 08/07/22 17:15 82 16 127/60 95 08/07/22 17:14 98.6 F 88 14 176/62 96 08/07/22 11:50 84 20 122/58 96 08/07/22 11:35 86 18 125/60 100 08/07/22 11:27 78 20 112/54 99 08/07/22 10:19 98.7 F 64 16 132/58 96 Intake and Output 08/07/22 08/08/22 08/08/22 22:59 06:59 14:59 Intake Total 300 130 Output Total 650 510 Balance -350 -510 130 Intake: IV 300 20 Invasive Line 1 10 Invasive Line 2 10 Oral 110 Output: Urine 650 510 Uretheral (Espinal) 60 Other: Voiding Method Indwelling Catheter Indwelling Catheter Indwelling Catheter Results CBC & Chem 7: 08/07/22 10:30 08/07/22 10:25 Labs: Abnormal Lab Results - Last 24 Hours (Table) 08/07/22 08/07/22 08/07/22 Range/Units 10:28 13:28 20:07 POC Glucose (mg/dL) 113 H 147 H (70-110) mg/dL Urine Appearance Cloudy H (Clear) Urine Protein 1+ H (Negative) Urine Blood Small H (Negative) Ur Leukocyte Esterase Large H (Negative) Urine RBC 22 H (0-5) /hpf Urine WBC >182 H (0-5) /hpf Calcium Oxalate Crystal Few H (None) /hpf Urine Bacteria Occasional H (None) /hpf Urine Mucus Rare H (None) /hpf 08/08/22 Range/Units 06:12 POC Glucose (mg/dL) 112 H (70-110) mg/dL Urine Appearance (Clear) Urine Protein (Negative) Urine Blood (Negative) Ur Leukocyte Esterase (Negative) Urine RBC (0-5) /hpf Urine WBC (0-5) /hpf Calcium Oxalate Crystal (None) /hpf Urine Bacteria (None) /hpf Urine Mucus (None) /hpf Assessment and Plan Time with Patient: Less than 30
[2022-08-08 16:49] LABS: Glucose,Whole Blood 119 mg/dL (70-110)
[2022-08-08 20:07] LABS: Glucose,Whole Blood 182 mg/dL (70-110)
[2022-08-08] MEDS: CLOPIDOGREL 75 MG TAB PO SCH (20:13)
[2022-08-08] MEDS: ATORVASTATIN 80 MG TAB PO SCH (20:13)
[2022-08-08] MEDS: traZODone HCL 100 MG TAB PO SCH (20:13)
[2022-08-09 06:08] LABS: Glucose,Whole Blood 101 mg/dL (70-110)
[2022-08-09] MEDS: PANTOPRAZOLE 40 MG TABLET PO SCH (06:36)
[2022-08-09] MEDS: LEVOTHYROXINE 25 MCG TAB PO SCH (06:36)
[2022-08-09] MEDS: SODIUM CHLORIDE 0.9% 1,000 ML IV SCH ×2 (06:38→21:49)
[2022-08-09] MEDS: carBAMazepine 200 MG TAB PO SCH ×2 (09:26→21:49)
[2022-08-09] MEDS: levETIRAcetam 500 MG TAB PO SCH ×2 (09:26→21:49)
[2022-08-09] MEDS: ASPIRIN 81 MG PO SCH (09:26)
[2022-08-09] MEDS: GABAPENTIN 300 MG CAP PO SCH ×3 (09:26→21:49)
[2022-08-09] MEDS: FLUoxetine HCL 20 MG CAP PO SCH (09:26)
[2022-08-09 11:32] LABS: Glucose,Whole Blood 90 mg/dL (70-110)
--- NOTE | 2022-08-09 14:00 | P.PN ---
Subjective Progress Note Date: 08/09/22 This is a pleasant 72 year old female with medical history of COPD, CVA/TIA, diabetes mellitus, hyperlipidemia, sleep apnea, peripheral vascular disease, anal cancer with chemo and radiation. Patient found to have severe peripheral arterial disease with symptoms of neuropathy and patient opted to undergo v ascular repair. Patient is admitted to hospital under vascular surgery. Patient is postoperative day #1 right femoral to anterior tibial bypass. Currently patient is resting in bed and does report sharp pain the the right lower extremity and foot. Rating pain about a 6/10, not wanting any pain medication at this time. Has prevana pump in place to the right groin with minimal drainage. No complaints of shortness of breath at this time. Blood count is unremarkable, blood glucose remains controlled at this time. Patient denies any urinary symptoms, no dysuria, no urgency however did have urinalysis completed showing large leukocyte esterase and >182 WBC. Urine culture pending. Patient is being monitored off antibiotics. 08/09/2022 Patient is evaluated today resting in bed. She is postoperative day #2 right femoral to anterior tibial bypass. Patient continues to report pain mostly to the right foot feels like pins and needles and sharp rated about a 6/10. Feels the gabapentin isn't helping much. The area around the right groin vac is tender as well. Has positive pedal pulse right foot is warm to touch. Otherwise no acute complaints overnight. Patient has been up ambulating she is asking about being discharged. Indwelling catheter has been removed. Review of Systems Constitutional: Denied any fatigue denied any fever. Cardio vascular: denied any chest pain, palpitations Gastrointestinal: denied any nausea, vomiting, diarrhea Pulmonary: Denied any shortness of breath cough Neurologic denied any new focal deficits All inpatient medications were reviewed and appropriate changes in these medications as dictated in the interval history and assessment and plan. PHYSICAL EXAMINATION: GENERAL: The patient is alert and oriented x3, not in any acute distress. Well developed, well nourished. HEENT: Pupils are round and equally reacting to light. EOMI. No scleral icterus. No conjunctival pallor. Normocephalic, atraumatic. No pharyngeal erythema. No thyromegaly. CARDIOVASCULAR: S1 and S2 present. No murmurs, rubs, or gallops. PULMONARY: Chest is clear to auscultation, no wheezing or crackles. ABDOMEN: Soft, nontender, nondistended, normoactive bowel sounds. No palpable organomegaly. MUSCULOSKELETAL: No joint swelling or deformity. EXTREMITIES: No cyanosis, clubbing, or pedal edema. prevana pump in place right groin +2 pedal pulse Dressing intact to right funes NEUROLOGICAL: Gross neurological examination did not reveal any focal deficits. SKIN: No rashes. Assessment and Plan Assessment Severe peripheral arterial disease and critical limb ischemia status post right femoral to anterior tibial artery bypass Abnormal urine most likely an aysmptomatic bacteriurea patient has no urinary symptoms, no fever and no white count, urine culture showing enterococcus however patient continues to deny any dysuria. Diabetes Mellitus type 2 blood glucose is currently controlled Hyperlipidemia Hx of brain/AAA aneurysm History of COPD with no acute exacerbation History or CVA/TIA Hx of anal cancer with chemo and radiation Anxiety/Depression Former Smoker GI Prophylaxis DVT Prophylaxis Full Code Plan Continue with VAC to the right groin per primary services Urine culture showing enterococcus clinically patient doesnt appear to have an acute UTI no antibiotics needed at this time Pain management and bowel regimen in place Patient continues to report neuropathic pain mostly to the right foot, feels currently regimen including gabapentin not controlling pain Patient is asking for DC home. Thank you kindly for this consultation The impression and plan of care has been dictated by Margarita Lyons, Nurse Practitioner as directed. Dr. Cathi MD I have performed a history and physical examination and medical decision making of this patient, discussed the same with the dictator, and agree with the dictators assessment and plan as written, documented as a scribe. Based on total visit time, I have performed more than 50% of this visit. Objective - Vital Signs Vital signs: Vital Signs Temp 97.7 F 08/08/22 20:00 Pulse 65 08/09/22 13:14 Resp 18 08/09/22 13:14 BP 99/65 08/09/22 13:14 Pulse Ox 95 08/09/22 13:14 FiO2 Intake & Output 08/08/22 08/09/22 08/09/22 18:59 06:59 18:59 Intake Total 1040 20 118 Balance 1040 20 118 Intake: IV 30 20 Invasive Line 1 10 Invasive Line 2 20 20 Oral 1010 118 Other: Voiding Method Toilet Toilet Toilet # Voids 3 1 - Labs CBC & Chem 7: 08/07/22 10:30 08/07/22 10:25 Labs: Abnormal Lab Results - Last 24 Hours (Table) 08/08/22 08/08/22 Range/Units 16:36 20:05 POC Glucose (mg/dL) 119 H 182 H (70-110) mg/dL Microbiology - Last 24 Hours (Table) 08/07/22 13:28 Urine Culture - Preliminary Urine,Voided Group D Enterococcus Assessment and Plan Time with Patient: Less than 30
[2022-08-09] MEDS: HYDROcodone/APAP 5-325MG 1 EACH TAB PO PRN (16:05)
[2022-08-09 16:35] LABS: Glucose,Whole Blood 101 mg/dL (70-110)
[2022-08-09] MEDS: LACTATED RINGERS 1,000 ML IV SCH (17:34)
[2022-08-09 19:56] LABS: Glucose,Whole Blood 128 mg/dL (70-110)
[2022-08-09 21:31] LABS: Glucose,Whole Blood 146 mg/dL (70-110)
[2022-08-09] MEDS: traZODone HCL 100 MG TAB PO SCH (21:49)
[2022-08-09] MEDS: CLOPIDOGREL 75 MG TAB PO SCH (21:49)
[2022-08-09] MEDS: ATORVASTATIN 80 MG TAB PO SCH (21:49)
[2022-08-10] MEDS: LEVOTHYROXINE 25 MCG TAB PO SCH (06:04)
[2022-08-10] MEDS: SODIUM CHLORIDE 0.9% 1,000 ML IV SCH (06:06)
[2022-08-10 06:08] LABS: Glucose,Whole Blood 107 mg/dL (70-110)
[2022-08-10] MEDS: LACTATED RINGERS 1,000 ML IV SCH (06:14)
[2022-08-10] MEDS: PANTOPRAZOLE 40 MG TABLET PO SCH (06:15)
[2022-08-10] MEDS: carBAMazepine 200 MG TAB PO SCH (09:22)
[2022-08-10] MEDS: levETIRAcetam 500 MG TAB PO SCH (09:22)
[2022-08-10] MEDS: GABAPENTIN 300 MG CAP PO SCH ×2 (09:22→16:33)
[2022-08-10] MEDS: ASPIRIN 81 MG PO SCH (09:22)
[2022-08-10] MEDS: FLUoxetine HCL 20 MG CAP PO SCH (09:22)
[2022-08-10] MEDS ORDERED: RIVAROXABAN 2.5 MG TABLET PO SCH (09:45)
--- NOTE | 2022-08-10 11:48 | P.DS ---
Providers Date of admission: 08/07/22 09:47 Expected date of discharge: 08/10/22 Attending physician: Vonda Espinal DO Consults: 08/07/22 17:36 Consult Physician Routine Consulting Provider: Lise Winkler Consult Reason/Comments: med mgmnet Do you want consulting provider notified?: Yes Primary care physician: [facility] Course: This 72-year-old with a history of [place] 4 severe peripheral arterial disease, critical limb ischemia, superficial femoral artery occlusion and popliteal artery occlusion had come in on 08/07/2022 and underwent right femoral to anterior tibial artery bypass with CryoVein. Patient had been up and moving around throughout the weekend. Yesterday evening around 2200 patient was up to the bathroom and had a vasovagal response, 18 was called. Patient has been stable since. She was up and evaluated by physical therapy today and deemed stable for discharge home with home care services. Patient currently denies any shortness of breath, chest pain, abdominal pain, nausea or vomiting. She states her right lower extremity pain is improved from prior to surgery. It is pink and warm, good capillary refill and sensorimotor intact. Patient has been afebrile. And incision has been well approximated. Prevena dressing in place to right groin. Exam General appearance: The patient is alert, oriented, appears in no acute distress. HET: Head is normocephalic and atraumatic. Neck: Supple. Heart: Regular. Lungs: Equal expansion, normal respiratory effort. Abdomen: Soft, nontender, nondistended. Extremities: Normal skin color and turgor. Right groin with Prevena dressing intact with suction, bypass graft with palpable pulse, right lateral lower extremity with incision well approximated, small area with scant amount of serosanguineous drainage. PT and Doppler signal present. Neurological: No focal deficits. Strength and sensation are grossly intact. Assessment 1. Postop day #3 for right femoral to anterior tibial artery bypass with CryoVein 2. Right lower extremity [place] 4 severe peripheral arterial disease 3. Right Critical limb ischemia with SFA occlusion and popliteal artery occlusion Plan Physical therapy on consult, they evaluated patient and deemed stable for discharge home with home care Orthostatic blood pressures Discontinue aspirin 81 mg, add Xarelto 2.5 mg BID Continue Plavix 75 mg daily Keep Prevena dressing in place until 08/13/22 then may discard Patient cleared for discharge home with home care services The impression and plan of care has been dictated as directed. I performed a history and examination of this patient, discussed the same with the dictator. I agree with the dictator's note ,documented as a scribe. Any additional findings or plans will be noted. Procedures: Procedure: Right femoral to anterior tibial artery bypass with CryoVein Femoral cutdown, redo groin greater than 30 days Patient Condition at Discharge: Stable Plan - Discharge Summary Discharge Rx Participant: Yes New Discharge Prescriptions: New Rivaroxaban [Xarelto] 2.5 mg PO BID #60 tab Continue Clopidogrel [Plavix] 75 mg PO HS Levothyroxine Sodium [Synthroid] 25 mcg PO DAILY traZODone HCL [Desyrel] 150 mg PO HS Atorvastatin [Lipitor] 80 mg PO HS Nystatin 100,000 Unit/gm Powd [Mycostatin Powder] 1 applic TOPICAL BID PRN PRN Reason: Yeast Infection HYDROcodone/APAP 5-325MG [[place] 5-325] 1 tab PO Q4HR PRN 3 Days #18 tab PRN Reason: Pain carBAMazepine [TEGretol] 200 mg PO BID Gabapentin [Neurontin] 300 mg PO TID Tylenol (Unknown Dose) 3 tab PO DIRECTED PRN PRN Reason: Pain FLUoxetine HCL [PROzac] 40 mg PO DAILY levETIRAcetam [Keppra] 500 mg PO BID Albuterol Sulfate [Ventolin HFA] 2 puff INHALATION RT-QID PRN PRN Reason: Shortness Of Breath Discharge Medication List Clopidogrel [Plavix] 75 mg PO HS 08/15/16 [History] Levothyroxine Sodium [Synthroid] 25 mcg PO DAILY 08/15/16 [History] traZODone HCL [Desyrel] 150 mg PO HS 11/30/17 [History] Atorvastatin [Lipitor] 80 mg PO HS 07/25/20 [History] FLUoxetine HCL [PROzac] 40 mg PO DAILY 07/25/20 [History] levETIRAcetam [Keppra] 500 mg PO BID 07/25/20 [History] Albuterol Sulfate [Ventolin HFA] 2 puff INHALATION RT-QID PRN 10/15/20 [History] Nystatin 100,000 Unit/gm Powd [Mycostatin Powder] 1 applic TOPICAL BID PRN 10/15/20 [History] HYDROcodone/APAP 5-325MG [[place] 5-325] 1 tab PO Q4HR PRN 3 Days #18 tab 05/13/22 [Rx] Gabapentin [Neurontin] 300 mg PO TID 08/03/22 [History] Tylenol (Unknown Dose) 3 tab PO DIRECTED PRN 08/03/22 [History] carBAMazepine [TEGretol] 200 mg PO BID 08/03/22 [History] Rivaroxaban [Xarelto] 2.5 mg PO BID #60 tab 08/10/22 [Rx] Follow up Appointment(s)/Referral(s): Pramod Reagan III, MD [Primary Care Provider] - 3 Days [facility] [NON-STAFF] - 1-2 Days Patient Instructions/Handouts: Rivaroxaban (By mouth) Activity/Diet/Wound Care/Special Instructions: No driving for 2 weeks or cleared by physician Avoid heavy lifting greater than 10 lbs , pushing, pulling, straining, flights of stairs for three days. ok to shower tomorrow but no baths, pools, soaking in tubs to avoid risk of infection. signs of infection ie: fever, rash, drainage from puncture site, swelling contact doctor or return to ER immediately. Heavy bleeding from incision site apply firm direct pressure and return to ER. Do not attempt to drive self. low sodium/low fat diet Discharge Disposition: HOME WITH HOME HEALTH SERVICES
[2022-08-10 11:53] LABS: Glucose,Whole Blood 200 mg/dL (70-110)
[2022-08-10 12:24] LABS: Basophils % (A) 0 %; Eosinophils # (A) 0.2 k/uL (0-0.7); Eosinophils % (A) 2 %; HCT 35.4 % (34.0-46.0); HGB 11.4 gm/dL (11.4-16.0); Lymphocytes # (A) 2.9 k/uL (1.0-4.8); Lymphocytes % (A) 31 %; MCH 30.9 pg (25.0-35.0); MCHC 32.3 g/dL (31.0-37.0); MCV 95.7 fL (80.0-100.0); Mean Platelet Volume 9.6; Monocytes # (A) 0.6 k/uL (0-1.0); Monocytes % (A) 6 %; Neutrophils # (A) 5.4 k/uL (1.3-7.7); Neutrophils % (A) 58 %; Platelet Count 166 k/uL (150-450); RBC 3.71 m/uL (3.80-5.40); RDW 14.1 % (11.5-15.5); WBC 9.4 k/uL (3.8-10.6)
--- NOTE | 2022-08-10 14:45 | P.PN ---
Subjective Progress Note Date: 08/10/22 This is a pleasant 72 year old female with medical history of COPD, CVA/TIA, diabetes mellitus, hyperlipidemia, sleep apnea, peripheral vascular disease, anal cancer with chemo and radiation. Patient found to have severe peripheral arterial disease with symptoms of neuropathy and patient opted to undergo v ascular repair. Patient is admitted to hospital under vascular surgery. Patient is postoperative day #1 right femoral to anterior tibial bypass. Currently patient is resting in bed and does report sharp pain the the right lower extremity and foot. Rating pain about a 6/10, not wanting any pain medication at this time. Has prevana pump in place to the right groin with minimal drainage. No complaints of shortness of breath at this time. Blood count is unremarkable, blood glucose remains controlled at this time. Patient denies any urinary symptoms, no dysuria, no urgency however did have urinalysis completed showing large leukocyte esterase and >182 WBC. Urine culture pending. Patient is being monitored off antibiotics. 08/09/2022 Patient is evaluated today resting in bed. She is postoperative day #2 right femoral to anterior tibial bypass. Patient continues to report pain mostly to the right foot feels like pins and needles and sharp rated about a 6/10. Feels the gabapentin isn't helping much. The area around the right groin vac is tender as well. Has positive pedal pulse right foot is warm to touch. Otherwise no acute complaints overnight. Patient has been up ambulating she is asking about being discharged. Indwelling catheter has been removed. 08/10/2022 Patient is evaluated today sitting up in chair. She had a vasovagal episode overnight. Patient today is denying dizziness and denying lightheadedness. She feels the neuropathic pain in her lower extremity is improving. Patient is postoperative day #3 right femoral to anterior tibial bypass. Patient has been up ambulating and has been continued on normal saline at 80 mls. She is encouraged to increase oral and water intake. Patient did have urine culture done showing enterococcus however she has had no fever, no leukocytosis, no dysuria, urgency, burning or suprapubic discomfort. Requiring monitoring off antibiotics and can follow up with PCP if symptoms develop. Labs today show stable kidney function, sodium of 136. TSH was checked normal at 1.740. Glucose in the 100s. Blood pressure better at 124/61. Medically patient can be discharged home. She has been cleared by vascular. Review of Systems Constitutional: Denied any fatigue denied any fever. Cardio vascular: denied any chest pain, palpitations Gastrointestinal: denied any nausea, vomiting, diarrhea Pulmonary: Denied any shortness of breath cough Neurologic denied any new focal deficits All inpatient medications were reviewed and appropriate changes in these medications as dictated in the interval history and assessment and plan. PHYSICAL EXAMINATION: GENERAL: The patient is alert and oriented x3, not in any acute distress. Well developed, well nourished. HEENT: Pupils are round and equally reacting to light. EOMI. No scleral icterus. No conjunctival pallor. Normocephalic, atraumatic. No pharyngeal erythema. No thyromegaly. CARDIOVASCULAR: S1 and S2 present. No murmurs, rubs, or gallops. PULMONARY: Chest is clear to auscultation, no wheezing or crackles. ABDOMEN: Soft, nontender, nondistended, normoactive bowel sounds. No palpable organomegaly. MUSCULOSKELETAL: No joint swelling or deformity. EXTREMITIES: No cyanosis, clubbing, or pedal edema. prevana pump in place right groin +2 pedal pulse Dressing intact to right funes NEUROLOGICAL: Gross neurological examination did not reveal any focal deficits. SKIN: No rashes. Assessment and Plan Assessment Severe peripheral arterial disease and critical limb ischemia status post right femoral to anterior tibial artery bypass Abnormal urine most likely an aysmptomatic bacteriurea patient has no urinary symptoms, no fever and no white count, urine culture showing enterococcus however patient continues to deny any dysuria. Diabetes Mellitus type 2 blood glucose is currently controlled Hyperlipidemia Hx of brain/AAA aneurysm History of COPD with no acute exacerbation History or CVA/TIA Hx of anal cancer with chemo and radiation Anxiety/Depression Former Smoker GI Prophylaxis DVT Prophylaxis Full Code Plan - Discharge instructions. Continue with Prevana pump to the right groin and can turn off and remove dressing on 08/13/22 this is recommending by vascular surgery. Urine culture showing enterococcus clinically patient doesnt appear to have an acute UTI no antibiotics needed at this time Patient to follow up with her PCP if develops fever or urinary symptoms Pain management and bowel regimen in place Patient instructed to return to ER immediately or contact doctor if experiencing heavy bleeding from incision site and to apply firm pressure. No driving for 2 weeks and no heavy lifting of greater than 10 lbs, pushing, pulling, straining, flights of stairs for 3 days per Medically patient has been cleared for discharge home. Thank you kindly for this consultation The impression and plan of care has been dictated by Margarita Lyons, Nurse Practitioner as directed. Dr. Cathi MD I have performed a history and physical examination and medical decision making of this patient, discussed the same with the dictator, and agree with the dictators assessment and plan as written, documented as a scribe. Based on total visit time, I have performed more than 50% of this visit. Objective - Vital Signs Vital signs: Vital Signs Temp 97.9 F 08/10/22 12:00 Pulse 66 08/10/22 12:00 Resp 17 08/10/22 12:00 BP 124/61 08/10/22 12:00 Pulse Ox 95 08/10/22 12:00 FiO2 Intake & Output 08/09/22 08/10/22 08/10/22 18:59 06:59 18:59 Intake Total 236 650 560 Balance 236 650 560 Intake: Intake, IV Titration 650 Amount Sodium Chloride 0.9% 1, 650 000 ml @ 80 mls/hr IV . [id number] [facility] Rx#:[id number] Oral 236 560 Other: Voiding Method Toilet Toilet Toilet # Voids 1 0 # Bowel Movements 1 - Labs CBC & Chem 7: 08/10/22 07:22 08/10/22 07:22 Labs: Abnormal Lab Results - Last 24 Hours (Table) 08/09/22 08/09/22 08/10/22 Range/Units 19:54 21:30 07:22 RBC (3.80-5.40) m/uL Sodium 136 L (137-145) mmol/L Chloride 109 H (98-107) mmol/L POC Glucose (mg/dL) 128 H 146 H (70-110) mg/dL Calcium 8.0 L (8.4-10.2) mg/dL 08/10/22 08/10/22 Range/Units 07:22 11:51 RBC 3.71 L (3.80-5.40) m/uL Sodium (137-145) mmol/L Chloride (98-107) mmol/L POC Glucose (mg/dL) 200 H (70-110) mg/dL Calcium (8.4-10.2) mg/dL Microbiology - Last 24 Hours (Table) 08/07/22 13:28 Urine Culture - Final Urine,Voided Enterococcus faecalis Assessment and Plan Time with Patient: Less than 30
[2022-08-10 16:36] VITALS: BP 126/84; PULSE 70; RESP 17; TEMP 98
[2022-08-10 16:38] LABS: Glucose,Whole Blood 111 mg/dL (70-110)
== END 2022-08-10 17:13 | disposition home health service (06) | DRG 254 ==
LOC: 2ORMAIN 09:47 → 3SCARD 17:46
PROVIDERS: ADMIT Surgery; ATTEND Surgery
PROC: 041K0KQ Bypass Right Femoral Artery to Lower Extremity Artery with Nonautologous Tissue Substitute, Open Approach (ICD-10-PCS; principal; 2022-08-07 11:15)
DX: E11.51 Type 2 diabetes mellitus with diabetic peripheral angiopathy without gangrene (principal); E78.5 Hyperlipidemia, unspecified; F32.A Depression, unspecified; F40.240 Claustrophobia; I70.229 Atherosclerosis of native arteries of extremities with rest pain, unspecified extremity; J44.9 Chronic obstructive pulmonary disease, unspecified; Z79.02 Long term (current) use of antithrombotics/antiplatelets; Z79.890 Hormone replacement therapy; Z79.899 Other long term (current) drug therapy; R32 Unspecified urinary incontinence; M54.9 Dorsalgia, unspecified; E07.9 Disorder of thyroid, unspecified; Z82.49 Family history of ischemic heart disease and other diseases of the circulatory system; Z86.73 Personal history of transient ischemic attack (TIA), and cerebral infarction without residual deficits; Z85.048 Personal history of other malignant neoplasm of rectum, rectosigmoid junction, and anus; Z87.442 Personal history of urinary calculi; Z87.891 Personal history of nicotine dependence; Z96.611 Presence of right artificial shoulder joint; Z96.653 Presence of artificial knee joint, bilateral; Z96.89 Presence of other specified functional implants; Z92.21 Personal history of antineoplastic chemotherapy; Z92.3 Personal history of irradiation; R82.71 Bacteriuria; Z86.718 Personal history of other venous thrombosis and embolism; Z88.1 Allergy status to other antibiotic agents; Z88.0 Allergy status to penicillin; Z91.013 Allergy to seafood; G47.30 Sleep apnea, unspecified; Z86.79 Personal history of other diseases of the circulatory system
CPT/HCPCS: 80048; 81001; 84132; 84443; 85025; 85027; 85610; 86850; 86900; 86901; 87077; 87086; 87186; 88305

== ENCOUNTER 2022-08-11 10:22 | Emergency (ER) | payer MEDICARE ==
[2022-08-11 10:33] VITALS: TEMP 98.5
--- NOTE | 2022-08-11 10:43 | ED ---
General Adult HPI - General Chief complaint: Fall Stated complaint: Fall Time Seen by Provider: 08/11/22 10:23 Source: patient, EMS, RN notes reviewed Mode of arrival: EMS Limitations: no limitations - History of Present Illness Initial comments: 72-year-old female presents emergency department via EMS following a mechanical fall. Patient states that she went to use the bathroom around 0800 when she fell off the toilet. She was pinned between the wall and the toilet with her right arm above her head. She was stuck in a position for at least an hour until a neighbor heard her. She states she hit the top of her head. She states that she has neck pain and right shoulder, arm pain. She denies loss of consciousness. She states that she had a vascular procedure done on Wednesday, she has a wound VAC in place. She states she has been off her Plavix for the past week because of the procedure. She states that she did not take her medications this morning. - Related Data Home Medications Medication Instructions Recorded Confirmed Clopidogrel [Plavix] 75 mg PO HS 08/15/16 08/03/22 Levothyroxine Sodium [Synthroid] 25 mcg PO DAILY 08/15/16 08/03/22 traZODone HCL [Desyrel] 150 mg PO HS 11/30/17 08/03/22 Atorvastatin [Lipitor] 80 mg PO HS 07/25/20 08/03/22 FLUoxetine HCL [PROzac] 40 mg PO DAILY 07/25/20 08/03/22 levETIRAcetam [Keppra] 500 mg PO BID 07/25/20 08/03/22 Albuterol Sulfate [Ventolin HFA] 2 puff INHALATION RT-QID PRN 10/15/20 08/03/22 Nystatin 100,000 Unit/gm Powd 1 applic TOPICAL BID PRN 10/15/20 08/03/22 [Mycostatin Powder] Gabapentin [Neurontin] 300 mg PO TID 08/03/22 08/03/22 Tylenol (Unknown Dose) 3 tab PO DIRECTED PRN 08/03/22 carBAMazepine [TEGretol] 200 mg PO BID 08/03/22 08/03/22 Previous Rx's Medication Instructions Recorded HYDROcodone/APAP 5-325MG [[place] 1 tab PO Q4HR PRN 3 Days #18 tab 05/13/22 5-325] Aspirin 81 mg PO DAILY #30 tab 08/10/22 Allergies Allergy/AdvReac Type Severity Reaction Status Date / Time erythromycin base Allergy Rash/Hives Verified 08/11/22 12:55 Fish Containing Products Allergy Anaphylaxis Verified 08/11/22 12:55 Penicillins Allergy Swelling Verified 08/11/22 12:55 shellfish derived [Shellfish] Allergy Anaphylaxis Verified 08/11/22 12:55 levofloxacin [From Levaquin] AdvReac Rash/Hives, Verified 08/11/22 12:55 swelling Review of Systems ROS Statement: Those systems with pertinent positive or pertinent negative responses have been documented in the HPI. ROS Other: All systems not noted in ROS Statement are negative. 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 ,States yeast infection in genital area and folds of abd., diet controlled diabetes., has stimulator left hip for back pain (not working)., PAD. History of Any Multi-Drug Resistant Organisms: None Reported Past Surgical History: Appendectomy, Back Surgery, Bladder Surgery, Cholecystectomy, Hysterectomy, Joint Replacement Additional Past Surgical History / Comment(s): Bilateral knee replacements, right shoulder rotator cuff X2, bilateral iliac femoral stents, bladder suspension X2, right Mediport removed, left lung biopsy, lymph node biopsy, left groin biopsy(malignant). bilateral carpal tunnel, bilateral cataracts, right shoulder replacement. stimulator in hip (left) for back, bilateral iliac arterial stents. Past Anesthesia/Blood Transfusion Reactions: No Reported Reaction, Family History of Problems w/ Anesthesia Additional Past Anesthesia/Blood Transfusion Reaction / Comment(s): Claustropho bic., vomited and aspirated during colonoscopy. son had difficulty waking up after surgery Past Psychological History: Anxiety, Depression Smoking Status: Former smoker, Vaper Past Alcohol Use History: None Reported Past Drug Use History: None Reported - Past Family History Sister(s) Family Medical History: Cancer Additional Family Medical History / Comment(s): Lung cancer. other sister heart failure Brother(s) Family Medical History: Cancer Additional Family Medical History / Comment(s): Lung cancer. Mother Family Medical History: Cancer Additional Family Medical History / Comment(s): Drugs and alcohol - of. Ear lobe cancer. Father Family Medical History: Cancer, Hyperlipidemia, Hypertension Additional Family Medical History / Comment(s): Skin cancer. General Exam Limitations: no limitations General appearance: alert, in no apparent distress Head exam: Present: atraumatic, normocephalic, normal inspection Eye exam: Present: PERRL, EOMI, periorbital swelling (resolved upon reevaluation). Absent: scleral icterus, conjunctival injection ENT exam: Present: normal exam, mucous membranes moist Neck exam: Present: normal inspection. Absent: tenderness, meningismus, lymphadenopathy Respiratory exam: Present: normal lung sounds bilaterally. Absent: respiratory distress, wheezes, rales, rhonchi, stridor Cardiovascular Exam: Present: regular rate, normal rhythm, normal heart sounds. Absent: systolic murmur, diastolic murmur, rubs, gallop, clicks Extremities exam: Present: normal inspection, full ROM, tenderness (tenderness to right shoulder, forearm, scapula), normal capillary refill Back exam: Present: normal inspection Neurological exam: Present: alert, oriented X3, CN II-XII intact Psychiatric exam: Present: normal affect, normal mood Skin exam: Present: warm, dry, intact, normal color. Absent: rash Course Vital Signs 08/11/22 08/11/22 08/11/22 10:23 11:33 12:25 Temperature 98.5 F Pulse Rate 82 79 75 Respiratory 20 20 16 Rate Blood Pressure 154/59 115/87 115/87 O2 Sat by Pulse 97 96 96 Oximetry Medical Decision Making - Medical Decision Making Was pt. sent in by a medical professional or institution (, PA, MARKETING EDITOR, urgent care, hospital, or long term...) When possible be specific @ -No Did you speak to anyone other than the patient for history (EMS, parent, family, police, friend...)? What history was obtained from this source @ -EMS states that patient fell off the toilet and was pinned between the bathtub and toilet. Did you review nursing and triage notes (agree or disagree)? Why? @ -I reviewed and agree with nursing and triage notes Were old charts reviewed (outside hosp., previous admission, EMS record, old EKG, old radiological studies, urgent care reports/EKG's, long term records)? Report findings @ -Prior laboratory studies reviewed from yesterday in particular kidney function Differential Diagnosis (chest pain, altered mental status, abdominal pain women, abdominal pain men, vaginal bleeding, weakness, fever, dyspnea, syncope, headache, dizziness, GI bleed, back pain, seizure, CVA, palpatations, mental health, musculoskeletal)? @ -Differential Musculoskeletal Muscular strain, contusion, ligament sprain, fracture, arthritis, septic arthritis, bursitis, cellulitis, muscle spasm, nerve compression, DVT, arterial occlusion, herpes zoster, electrolyte abnormality, tumor.... This is not meant to be in all inclusive list EKG interpreted by me (3pts min.). @ -None X-rays interpreted by me (1pt min.). @ -X-ray forearm shows no acute fracture, x-ray humerus shows no acute fracture dislocation, x-ray right shoulder shows right total shoulder arthroplasty which remains intact, scapular fracture at the level of the inferior angle displaced anteriorly by 1.[address] interpreted by me (1pt min.). @ -CT brain shows moderate generalized cerebral atrophy, old basal ganglionic infarct anteriorly on the right, no acute intracranial abnormality seen, moderate spondylitic changes of the cervical spine, no acute fracture or malalignment. Correlate for CHF with interstitial pulmonary edema U/S interpreted by me (1pt. min.). @ -None done What testing was considered but not performed or refused? (CT, X-rays, U/S, labs)? Why? @ -None What meds were considered but not given or refused? Why? @ -None Did you discuss the management of the patient with other professionals (prof coelho i.e. , PA, MARKETING EDITOR, lab, RT, psych nurse, manager social media, fashion merchandiser, teacher, president and chief commercial officer, pillowcase folder)? Give summary @ -No Was smoking cessation discussed for >3mins.? @ -No Was critical care preformed (if so, how long)? @ -No Were there social determinants of health that impacted care today? How? (Homelessness, low income, unemployed, alcoholism, drug addiction, transportation, low edu. Level, literacy, decrease access to med. care, usp, rehab)? @ -No Was there de-escalation of care discussed even if they declined (Discuss DNR or withdrawal of care, Hospice)? DNR status @ -No What co-morbidities impacted this encounter? (DM, HTN, Smoking, COPD, CAD, Cancer, CVA, ARF, Chemo, Hep., AIDS, mental health diagnosis, sleep apnea, morbid obesity)? @ -None Was patient admitted / discharged? Hospital course, mention meds given and route, prescriptions, significant lab abnormalities, going to OR and other pertinent info. @ -discharged. Patient presented to the emergency department via EMS with chief complaint of fall. Patient reports that she did not lose consciousness, she did hit the top of her head. Reports pain in her right shoulder and arm and forearm. States she has not taken her blood thinners in the past week due to a procedure that she had. CT brain, cspine showed no acute process, no acute fracture. X-ray right humerus and forearm show no acute fracture. X-ray right shoulder showed scapular fracture at inferior angle displaced 1.3cm. Patient placed in a sling. Patient discharged in stable condition. Case discussed with Dr. Morgan. Undiagnosed new problem with uncertain prognosis? @ -No Drug Therapy requiring intensive monitoring for toxicity (Heparin, Nitro, Insulin, Cardizem)? @ -No Were any procedures done? @ -No Diagnosis/symptom? @ -Fall Acute, or Chronic, or Acute on Chronic? @ -acute Uncomplicated (without systemic symptoms) or Complicated (systemic symptoms)? @ -Uncomplicated Side effects of treatment? @ -No Exacerbation, Progression, or Severe Exacerbation? @ -No Poses a threat to life or bodily function? How? (Chest pain, [place], [place], pneumonia, PE, COPD, DKA, ARF, appy, cholecystitis, CVA, Diverticulitis, Homicidal, Suicidal, threat to staff... and all critical care pts) @ -No Disposition Clinical Impression: Fall, Closed right scapular fracture Disposition: HOME SELF-CARE Condition: Stable Instructions (If sedation given, give patient instructions): Fall Prevention for Older Adults (ED) Additional Instructions: Please return to the Emergency Department if symptoms worsen or any other concerns. Is patient prescribed a controlled substance at d/c from ED?: No Referrals: Pramod Reagan III, MD [Primary Care Provider] - 1-2 days Time of Disposition: 12:48
[2022-08-11] MEDS ORDERED: KETOROLAC 15 MG/ML 1 ML VIAL IM STA (10:57)
--- NOTE | 2022-08-11 11:30 | CT ---
EXAMINATION TYPE: CT brain luz reid DATE OF EXAM: 08/11/2022 COMPARISON: None HISTORY: 72-year-old female pain after fall CT DLP: 1600.9 mGycm Automated exposure control for dose reduction was used. Technique: Examination of the head was done in axial plane without intravenous contrast. Coronal and sagittal reconstructions performed. CT of the cervical spine was obtained in axial plane without intravenous injection of contrast mater ial. Coronal and sagittal reformatted images were obtained from the axial views for evaluation of f ractures, spinal alignment and canal. FINDINGS: Head: There is moderate generalized cerebral cortical volume loss especially bifrontal atrophy. Secondary m ild prominence to the ventricular system. Old infarct anterior right basal ganglia region. Empty sella incidentally noted. No evidence for acute intracranial hemorrhage, acute ischemic change, mass, mass effect, midline shif t, or extra-axial fluid collection. No effacement of cerebral sulci or basal subarachnoid cisterns. G ray-white matter differentiation is maintained. Paranasal sinuses and mastoid air cells well pneumatized. Orbits and globes are intact. Cervical spine: No craniocervical junction abnormality, predental space widening, or prevertebral soft tissue swellin g. Moderate multilevel disc/endplate degenerative changes as well as facet and uncovertebral joint arthr opathy throughout. Disc osteophyte complexes especially C4-C7 levels may contribute to up to a moderate spinal canal rebecca rowing. There is straightening of the normal cervical lordosis but with otherwise preserved alignment. No acute fracture seen of the cervical spine. There is generalized anasarca change and bilateral layering pleural effusions. Extensive groundglass changes and septal lines in the visualized upper lungs. Sagittal and coronal reformatted images confirm above findings. COMBINED IMPRESSION: 1. Moderate generalized cerebral atrophy. Old basal ganglionic infarct anteriorly on the right. No ac salyl intracranial abnormality seen. 2. Moderate spondylotic changes in the cervical spine. No acute fracture or malalignment. 3. Correlate for CHF with interstitial pulmonary edema. Layering pleural effusions also noted.
--- NOTE | 2022-08-11 12:22 | XR ---
EXAMINATION TYPE: XR humerus RT DATE OF EXAM: 08/11/2022 CLINICAL HISTORY: pain TECHNIQUE: two views of the right shoulder are obtained. COMPARISON: None FINDINGS: There is no acute fracture/dislocation evident. The acromioclavicular and glenohumeral keyshawn int spaces appear within normal limits. The visualized ribs are intact and unremarkable. IMPRESSION: 1. There is no acute fracture or dislocation. ICD 10 NO FRACTURE, INITIAL EVALUATION
--- NOTE | 2022-08-11 12:23 | XR ---
EXAMINATION TYPE: XR forearm RT DATE OF EXAM: 08/11/2022 CLINICAL HISTORY: pain TECHNIQUE: Frontal and lateral images of the right forearm are obtained. COMPARISON: None. FINDINGS: There is no acute fracture/dislocation evident. The joint spaces appear within normal limi ts. The overlying soft tissue appears unremarkable. IMPRESSION: There is no acute fracture or dislocation. ICD 10 NO FRACTURE, INITIAL EVALUATION
[2022-08-11 12:26] VITALS: RESP 16
--- NOTE | 2022-08-11 12:26 | XR ---
EXAMINATION TYPE: XR shoulder limited RT DATE OF EXAM: 08/11/2022 COMPARISON: NONE HISTORY: 72-year-old female with fall and shoulder pain TECHNIQUE: 2 views FINDINGS: There is an underlying reverse right total shoulder arthroplasty. Both the glenoid and humeral stem c omponents appear well seated. There is a fracture from the inferior angle of the ampulla displaced anteriorly by 1.3 cm. Additional soft tissue swelling overlying the superior aspect of the shoulder. Moderate degenerative change AC joint. Patchy interstitial densities throughout the visualized right lung. IMPRESSION: 1. The patient's reverse right total shoulder arthroplasty appears to remain intact. 2. However, there is a scapular fracture at the level of the inferior angle displaced anteriorly by 1 .3 cm.
[2022-08-11] MEDS ORDERED: ACET/COD 300 MG/30 MG STARTER PACK 6 TAB BTL PO STA (12:46)
[2022-08-11 13:40] VITALS: BP 136/85; PULSE 68
== END 2022-08-11 13:40 | disposition home or self-care (01) ==
LOC: EC 10:22
DX: S42.101A Fracture of unspecified part of scapula, right shoulder, initial encounter for closed fracture (principal); J44.9 Chronic obstructive pulmonary disease, unspecified; E11.9 Type 2 diabetes mellitus without complications; E78.5 Hyperlipidemia, unspecified; E07.9 Disorder of thyroid, unspecified; Z86.73 Personal history of transient ischemic attack (TIA), and cerebral infarction without residual deficits; F41.9 Anxiety disorder, unspecified; F32.A Depression, unspecified; F17.290 Nicotine dependence, other tobacco product, uncomplicated; Z88.0 Allergy status to penicillin; Z88.1 Allergy status to other antibiotic agents; Z91.013 Allergy to seafood; Z79.890 Hormone replacement therapy; Z79.899 Other long term (current) drug therapy; W18.11XA Fall from or off toilet without subsequent striking against object, initial encounter
CPT/HCPCS: 73020; 73060; 73090; 72125; 70450; 99285; 96372; J1885

== ENCOUNTER 2022-08-28 14:49 | Inpatient (IN) | payer MEDICARE ==
--- NOTE | 2022-08-28 15:19 | ED ---
Recheck HPI - General Chief Complaint: Recheck/Abnormal Lab/Rx Stated Complaint: PO Surgery Complication Time Seen by Provider: 08/28/22 15:14 Source: patient, RN notes reviewed, old records reviewed Mode of arrival: ambulatory Limitations: no limitations - History of Present Illness Initial Comments: This is a 72-year-old female to the emergency department today. Patient presents today for evaluation of groin pain swelling malodorous discharge from postoperative site. Patient presents from home for evaluation of groin and evaluation by vascular surgery MD Complaint: wound re-check -: days(s) Returns Today for: Called Because of Abnormal Lab/Test, needs IV antibiotics, persistent/worsening pain related to initial visit Symptoms Since Prior Visit: worsening pain, worsening swelling, worsening redness, fever Context: planned re-check Treatments Prior to Arrival: other (0) - Related Data Home Medications Medication Instructions Recorded Confirmed Clopidogrel [Plavix] 75 mg PO DAILY 08/15/16 08/28/22 Levothyroxine Sodium [Synthroid] 25 mcg PO DAILY 08/15/16 08/28/22 FLUoxetine HCL [PROzac] 40 mg PO DAILY 07/25/20 08/28/22 levETIRAcetam [Keppra] 500 mg PO BID 07/25/20 08/28/22 Gabapentin [Neurontin] 300 mg PO TID 08/03/22 08/28/22 Acetaminophen Tab [Tylenol] 1,000 mg PO Q6H PRN 08/28/22 08/28/22 traZODone HCL 150 mg PO HS 08/28/22 08/28/22 Previous Rx's Medication Instructions Recorded Aspirin 81 mg PO DAILY #30 tab 08/10/22 Cefdinir [Omnicef] 300 mg PO BID 10 Days #20 cap 09/02/22 Collagenase [Santyl Ointment] 1 applic TOPICAL DAILY #1 each 09/02/22 HYDROcodone/APAP 7.5-325MG [[place] 1 tab PO Q4H PRN 7 Days #42 tab 09/02/22 7.5-325] Nystatin 100,000 Unit/ml Susp 5 ml PO QID #140 ml 09/02/22 [Mycostatin Oral Susp] Pantoprazole [Protonix] 40 mg PO AC-BRKFST #30 tab 09/02/22 metroNIDAZOLE [Flagyl] 500 mg PO TID 10 Days #30 tab 09/02/22 Allergies Allergy/AdvReac Type Severity Reaction Status Date / Time erythromycin base Allergy Rash/Hives Verified 08/28/22 16:14 Fish Containing Products Allergy Anaphylaxis Verified 08/28/22 16:14 Penicillins Allergy Anaphylaxis Verified 08/28/22 16:14 shellfish derived [Shellfish] Allergy Anaphylaxis Verified 08/28/22 16:14 levofloxacin [From Levaquin] AdvReac Rash/Hives, Verified 08/28/22 16:14 swelling Review of Systems ROS Statement: Those systems with pertinent positive or pertinent negative responses have been documented in the HPI. ROS Other: All systems not noted in ROS Statement are negative. 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 ,States yeast infection in genital area and folds of abd., diet controlled diabetes., has stimulator left hip for back pain (not working)., PAD. History of Any Multi-Drug Resistant Organisms: None Reported Past Surgical History: Appendectomy, Back Surgery, Bladder Surgery, Cholecystectomy, Hysterectomy, Joint Replacement Additional Past Surgical History / Comment(s): Bilateral knee replacements, right shoulder rotator cuff X2, bilateral iliac femoral stents, bladder suspension X2, right Mediport removed, left lung biopsy, lymph node biopsy, left groin biopsy(malignant). bilateral carpal tunnel, bilateral cataracts, right s houlder replacement. stimulator in hip (left) for back, bilateral iliac arterial stents., R femoral stent Past Anesthesia/Blood Transfusion Reactions: No Reported Reaction, Family History of Problems w/ Anesthesia Additional Past Anesthesia/Blood Transfusion Reaction / Comment(s): Claustrophobic., vomited and aspirated during colonoscopy. son had difficulty waking up after surgery Past Psychological History: Anxiety, Depression Smoking Status: Former smoker, Vaper Past Alcohol Use History: None Reported Past Drug Use History: None Reported - Past Family History Sister(s) Family Medical History: Cancer Additional Family Medical History / Comment(s): Lung cancer. other sister heart failure Brother(s) Family Medical History: Cancer Additional Family Medical History / Comment(s): Lung cancer. Mother Family Medical History: Cancer Additional Family Medical History / Comment(s): Drugs and alcohol - of. Ear lobe cancer. Father Family Medical History: Cancer, Hyperlipidemia, Hypertension Additional Family Medical History / Comment(s): Skin cancer. General Exam Limitations: no limitations General appearance: alert, in no apparent distress Head exam: Present: atraumatic, normocephalic, normal inspection Eye exam: Present: normal appearance, PERRL, EOMI. Absent: scleral icterus, conjunctival injection, periorbital swelling ENT exam: Present: normal exam, mucous membranes moist Neck exam: Present: normal inspection. Absent: tenderness, meningismus, lymphadenopathy Respiratory exam: Present: normal lung sounds bilaterally. Absent: respiratory distress, wheezes, rales, rhonchi, stridor Cardiovascular Exam: Present: regular rate, normal rhythm, normal heart sounds. Absent: systolic murmur, diastolic murmur, rubs, gallop, clicks GI/Abdominal exam: Present: soft, normal bowel sounds. Absent: distended, tenderness, guarding, rebound, rigid Extremities exam: Present: normal inspection, full ROM, normal capillary refill. Absent: tenderness, pedal edema, joint swelling, calf tenderness Back exam: Present: normal inspection Neurological exam: Present: alert, oriented X3, CN II-XII intact Psychiatric exam: Present: normal affect, normal mood Skin exam: Present: warm, dry, intact, normal color. Absent: rash Course Vital Signs 08/28/22 08/28/22 08/28/22 14:59 15:13 17:03 Temperature 98.3 F 98.4 F 98 F Pulse Rate 68 66 72 Respiratory 18 20 16 Rate Blood Pressure 109/37 131/99 139/61 O2 Sat by Pulse 98 96 97 Oximetry 08/28/22 08/28/22 08/29/22 20:12 22:14 00:06 Temperature Pulse Rate 77 69 74 Respiratory 20 16 18 Rate Blood Pressure 124/77 114/43 123/63 O2 Sat by Pulse 98 100 95 Oximetry 08/29/22 08/29/22 08/29/22 01:44 05:24 11:01 Temperature 98.4 F Pulse Rate 83 79 87 Respiratory 18 16 18 Rate Blood Pressure 121/63 122/61 137/76 O2 Sat by Pulse 95 97 96 Oximetry 08/29/22 15:53 Temperature 98.6 F Pulse Rate 75 Respiratory 18 Rate Blood Pressure 133/72 O2 Sat by Pulse 98 Oximetry - Reevaluation(s) Reevaluation #1: 08/28/22 23:18 Medical record is reviewed Reevaluation #2: 08/28/22 23:18 Patient has no change in symptoms here in the ER pain improved Reevaluation #3: 08/28/22 23:18 Patient informed results questions answered Reevaluation #4: 08/28/22 23:18 Was pt. sent in by a medical professional or institution? @ -no Did you speak to anyone other than the patient for history? @ -no Did you review nursing and triage notes? @ -agree Were old charts reviewed? @ -no Differential Diagnosis? @ -prior EKG interpreted by me (3pts min.)? @ -yes X-rays interpreted by me (1pt min.)? @ -yes CT interpreted by me (1pt min.)? @ -no U/S interpreted by me (1pt. min.)? @ -no What testing was considered but not performed? (CT, X-rays, U/S, labs)? Why? @ -no What meds were considered but not given? Why? @ -no Did you discuss the management of the patient with other professionals? @ -no Did you reconcile home meds? @ -no Was smoking cessation discussed for >3mins.? @ -no Was critical care preformed (if so, how long)? @ -no Were there social determinants of health that impacted care today? How? (Homele ssness, low income, unemployed, alcoholism, drug addiction, transportation, low edu. Level, literacy, decrease access to med. care, nursing home, rehab)? @ -no Was there de-escalation of care discussed even if they declined? (Discuss DNR or withdrawal of care, Hospice)? @ -no What co-morbidities impacted this encounter? (DM, HTN, Smoking, COPD, CAD, Cancer, CVA, Hep., AIDS, mental health diagnosis, sleep apnea, morbid obesity)? @ -none Was patient admitted / discharged? @ -admit Undiagnosed new problem with uncertain prognosis? @ -no Drug Therapy requiring intensive monitoring for toxicity (Heparin, Nitro, Insulin, Cardizem)? @ -no Were any procedures done? @ -no Diagnosis/symptom? @ -PostOp Infection Acute, or Chronic, or Acute on Chronic? @ -acute Uncomplicated (without systemic symptoms) or Complicated (systemic symptoms)? @ -complicated Side effects of treatment? @ -no Exacerbation, Progression, or Severe Exacerbation] @ -no Poses a threat to life or bodily function? @ -yes - Consultations Consultation #1: Spoke with vascular surgery will see patient in the emergency department Medical Decision Making - Medical Decision Making 72 female DEL will be admitted for postoperative surgical complication, infection of postoperative site - Lab Data Result diagrams: 09/01/22 05:56 09/02/22 06:25 Lab Results 08/28/22 08/28/22 08/28/22 Range/Units 15:39 15:39 15:39 WBC 6.9 (3.8-10.6) k/uL RBC 3.35 L (3.80-5.40) m/uL Hgb 10.0 L (11.4-16.0) gm/dL Hct 30.6 L (34.0-46.0) % MCV 91.6 (80.0-100.0) fL MCH 29.9 (25.0-35.0) pg MCHC 32.6 (31.0-37.0) g/dL RDW 14.8 (11.5-15.5) % Plt Count 344 D (150-450) k/uL MPV 7.7 Neutrophils % 57 % Lymphocytes % 31 % Monocytes % 6 % Eosinophils % 2 % Basophils % 0 % Neutrophils # 3.9 (1.3-7.7) k/uL Lymphocytes # 2.1 (1.0-4.8) k/uL Monocytes # 0.4 (0-1.0) k/uL Eosinophils # 0.1 (0-0.7) k/uL Basophils # 0.0 (0-0.2) k/uL PT 9.9 (9.0-12.0) sec INR 0.9 (<1.2) APTT 23.8 (22.0-30.0) sec Sodium 135 L (137-145) mmol/L Potassium 4.3 (3.5-5.1) mmol/L Chloride 101 (98-107) mmol/L Carbon Dioxide 24 (22-30) mmol/L Anion Gap 10 mmol/L BUN 19 H (7-17) mg/dL Creatinine 0.93 (0.52-1.04) mg/dL Est GFR (CKD-EPI)AfAm 71 (>60 ml/min/1.73 sqM) Est GFR (CKD-EPI)NonAf 62 (>60 ml/min/1.73 sqM) Glucose 145 H (74-99) mg/dL Calcium 8.3 L (8.4-10.2) mg/dL Phosphorus 4.1 (2.5-4.5) mg/dL Magnesium 2.0 (1.6-2.3) mg/dL Total Bilirubin 0.6 (0.2-1.3) mg/dL AST 23 (14-36) U/L ALT 17 (4-34) U/L Alkaline Phosphatase 79 (38-126) U/L Troponin I (0.000-0.034) ng/mL C-Reactive Protein 5.5 H (<1.0) mg/dL Total Protein 5.6 L (6.3-8.2) g/dL Albumin 3.2 L (3.5-5.0) g/dL 08/28/22 Range/Units 15:39 WBC (3.8-10.6) k/uL RBC (3.80-5.40) m/uL Hgb (11.4-16.0) gm/dL Hct (34.0-46.0) % MCV (80.0-100.0) fL MCH (25.0-35.0) pg MCHC (31.0-37.0) g/dL RDW (11.5-15.5) % Plt Count (150-450) k/uL MPV Neutrophils % % Lymphocytes % % Monocytes % % Eosinophils % % Basophils % % Neutrophils # (1.3-7.7) k/uL Lymphocytes # (1.0-4.8) k/uL Monocytes # (0-1.0) k/uL Eosinophils # (0-0.7) k/uL Basophils # (0-0.2) k/uL PT (9.0-12.0) sec INR (<1.2) APTT (22.0-30.0) sec Sodium (137-145) mmol/L Potassium (3.5-5.1) mmol/L Chloride (98-107) mmol/L Carbon Dioxide (22-30) mmol/L Anion Gap mmol/L BUN (7-17) mg/dL Creatinine (0.52-1.04) mg/dL Est GFR (CKD-EPI)AfAm (>60 ml/min/1.73 sqM) Est GFR (CKD-EPI)NonAf (>60 ml/min/1.73 sqM) Glucose (74-99) mg/dL Calcium (8.4-10.2) mg/dL Phosphorus (2.5-4.5) mg/dL Magnesium (1.6-2.3) mg/dL Total Bilirubin (0.2-1.3) mg/dL AST (14-36) U/L ALT (4-34) U/L Alkaline Phosphatase (38-126) U/L Troponin I <0.012 (0.000-0.034) ng/mL C-Reactive Protein (<1.0) mg/dL Total Protein (6.3-8.2) g/dL Albumin (3.5-5.0) g/dL Disposition Clinical Impression: Diabetes, Weakness, Dehydration, Postoperative infection Disposition: ADMITTED IP TO THIS HOSP Condition: Stable Is patient prescribed a controlled substance at d/c from ED?: No Time of Disposition: 18:25
[2022-08-28] MEDS ORDERED: SODIUM CHLORIDE 0.9% 1,000 ML IV STA (15:37)
[2022-08-28 15:58] LABS: INR 0.9 (<1.2); Partial Thromboplastin Time 23.8 sec (22.0-30.0); Prothrombin Time 9.9 sec (9.0-12.0)
[2022-08-28 16:06] LABS: Albumin 3.2 g/dL (3.5-5.0); C Reactive Protein 5.5 mg/dL (<1.0); Calcium 8.3 mg/dL (8.4-10.2); Phosphorus 4.1 mg/dL (2.5-4.5); Potassium 4.3 mmol/L (3.5-5.1); Total Bilirubin 0.6 mg/dL (0.2-1.3); Total Protein 5.6 g/dL (6.3-8.2)
[2022-08-28 16:14] LABS: Basophils % (A) 0 %; Eosinophils # (A) 0.1 k/uL (0-0.7); Eosinophils % (A) 2 %; HCT 30.6 % (34.0-46.0); Lymphocytes # (A) 2.1 k/uL (1.0-4.8); Lymphocytes % (A) 31 %; MCH 29.9 pg (25.0-35.0); MCHC 32.6 g/dL (31.0-37.0); MCV 91.6 fL (80.0-100.0); Mean Platelet Volume 7.7; Monocytes # (A) 0.4 k/uL (0-1.0); Monocytes % (A) 6 %; Neutrophils # (A) 3.9 k/uL (1.3-7.7); Neutrophils % (A) 57 %; RBC 3.35 m/uL (3.80-5.40); RDW 14.8 % (11.5-15.5); WBC 6.9 k/uL (3.8-10.6)
[2022-08-28 16:20] LABS: Platelet Count 344 k/uL (150-450)
[2022-08-28] MEDS ORDERED: ONDANSETRON 4 MG/2 ML VIAL IVP PRN (16:32)
[2022-08-28] MEDS ORDERED: VANCOMYCIN IV PER PHARMACY 1 EACH MISC MISCELLANE PRN (16:32)
[2022-08-28] MEDS ORDERED: MORPHINE SULFATE 4 MG/ML SYRINGE IVP STA (16:32)
[2022-08-28] MEDS ORDERED: ONDANSETRON 4 MG/2 ML VIAL IVP STA (16:32)
[2022-08-28] MEDS ORDERED: PIPERACILLIN-TAZOBACTAM 3.375 GM in SODIUM CHLORIDE 0.9% 100 ML IVPB STA ×2 (16:32→16:38)
[2022-08-28] MEDS ORDERED: CEFEPIME 2 GM in SODIUM CHLORIDE 0.9% 100 ML IVPB STA (16:50)
[2022-08-28] MEDS ORDERED: VANCOMYCIN 1,500 MG in SODIUM CHLORIDE 0.9% 500 ML 500 ML IVPB ONE (18:00)
[2022-08-28] MEDS ORDERED: NALOXONE 0.4 MG/ML 1 ML VIAL IV PRN (18:44)
[2022-08-28] MEDS ORDERED: ACETAMINOPHEN TAB 325 MG TAB PO PRN (18:44)
--- NOTE | 2022-08-28 19:40 | P.GSCN ---
History of Present Illness Consult date: 08/28/22 Reason for Consult: Postoperative wound infection right inguinal area. History of present illness: Patient is a 72-year-old female who recently underwent a right femoral to anterior tibial bypass utilizing cryopreserved vein. A few days ago she began experiencing some drainage and erythematous reaction about a right inguinal area. Eventually this did open and drain what she describes as somewhat foul smelling fluid. She thus presented for further evaluation. She denies chills or fevers. Her right foot persists with some resolving ischemic neuropathy. 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 ,States yeast infection in genital area and folds of abd., diet controlled diabetes., has stimulator left hip for back pain (not working)., PAD. History of Any Multi-Drug Resistant Organisms: None Reported Past Surgical History: Appendectomy, Back Surgery, Bladder Surgery, Cholecystectomy, Hysterectomy, Joint Replacement Additional Past Surgical History / Comment(s): Bilateral knee replacements, right shoulder rotator cuff X2, bilateral iliac femoral stents, bladder suspension X2, right Mediport removed, left lung biopsy, lymph node biopsy, left groin biopsy(malignant). bilateral carpal tunnel, bilateral cataracts, right shoulder replacement. stimulator in hip (left) for back, bilateral iliac ar terial stents., R femoral stent Past Anesthesia/Blood Transfusion Reactions: No Reported Reaction, Family History of Problems w/ Anesthesia Additional Past Anesthesia/Blood Transfusion Reaction / Comm: Claustrophobic., vomited and aspirated during colonoscopy. son had difficulty waking up after surgery Past Psychological History: Anxiety, Depression Smoking Status: Former smoker, Vaper Past Alcohol Use History: None Reported Past Drug Use History: None Reported - Past Family History Sister(s) Family Medical History: Cancer Additional Family Medical History / Comment(s): Lung cancer. other sister heart failure Brother(s) Family Medical History: Cancer Additional Family Medical History / Comment(s): Lung cancer. Mother Family Medical History: Cancer Additional Family Medical History / Comment(s): Drugs and alcohol - of. Ear lobe cancer. Father Family Medical History: Cancer, Hyperlipidemia, Hypertension Additional Family Medical History / Comment(s): Skin cancer. Medications and Allergies Home Medications Medication Instructions Recorded Confirmed Type Clopidogrel [Plavix] 75 mg PO DAILY 08/15/16 08/28/22 History Levothyroxine Sodium [Synthroid] 25 mcg PO DAILY 08/15/16 08/28/22 History FLUoxetine HCL [PROzac] 40 mg PO DAILY 07/25/20 08/28/22 History levETIRAcetam [Keppra] 500 mg PO BID 07/25/20 08/28/22 History Gabapentin [Neurontin] 300 mg PO TID 08/03/22 08/28/22 History Aspirin 81 mg PO DAILY #30 tab 08/10/22 08/28/22 Rx Acetaminophen Tab [Tylenol Tab] 1,000 mg PO Q6H PRN 08/28/22 08/28/22 History HYDROcodone/APAP 7.5-325MG [[place] 1 tab PO Q4H PRN 08/28/22 08/28/22 History 7.5-325] traZODone HCL [Trazodone HCl] 150 mg PO HS 08/28/22 08/28/22 History Allergies Allergy/AdvReac Type Severity Reaction Status Date / Time erythromycin base Allergy Rash/Hives Verified 08/28/22 16:14 Fish Containing Products Allergy Anaphylaxis Verified 08/28/22 16:14 Penicillins Allergy Anaphylaxis Verified 08/28/22 16:14 shellfish derived [Shellfish] Allergy Anaphylaxis Verified 08/28/22 16:14 levofloxacin [From Levaquin] AdvReac Rash/Hives, Verified 08/28/22 16:14 swelling Surgical - Exam Osteopathic Statement: *. No significant issues noted on an osteopathic structural exam other than those noted in the History and Physical/Consult. Vital Signs Temp Pulse Resp BP Pulse Ox 98.3 F 68 18 109/37 98 08/28/22 14:59 08/28/22 14:59 08/28/22 14:59 08/28/22 14:59 08/28/22 14:59 - General well developed, chronically ill, obese, other, well nourished (The bypass graft is patent with a palpable pulse within the graft.The right inguinal area), no distress, moderate distress, severe distress, no pain (Demonstrates an open wound measuring approximately 3 cm x 1.5 cm in length and width.), moderate pain, severe pain, cachectic Examination right lower extremity demonstrates a open wound in the inguinal area measuring approximately 3 x 1.5 cm in length and width. The wound is open. No purulent drainage is noted however some serous fluid is expressed with compression. Somewhat foul-smelling odor is identified. The bypass graft is patent with excellent pulse noted within the bypass graft. The patient's right foot is movable and sensate. Results - Labs 08/28/22 15:39 08/28/22 15:39 Abnormal Lab Results - Last 24 Hours (Table) 08/28/22 08/28/22 Range/Units 15:39 15:39 RBC 3.35 L (3.80-5.40) m/uL Hgb 10.0 L (11.4-16.0) gm/dL Hct 30.6 L (34.0-46.0) % Sodium 135 L (137-145) mmol/L BUN 19 H (7-17) mg/dL Glucose 145 H (74-99) mg/dL Calcium 8.3 L (8.4-10.2) mg/dL C-Reactive Protein 5.5 H (<1.0) mg/dL Total Protein 5.6 L (6.3-8.2) g/dL Albumin 3.2 L (3.5-5.0) g/dL Diabetes panel 08/28/22 Range/Units 15:39 Sodium 135 L (137-145) mmol/L Potassium 4.3 (3.5-5.1) mmol/L Chloride 101 (98-107) mmol/L Carbon Dioxide 24 (22-30) mmol/L BUN 19 H (7-17) mg/dL Creatinine 0.93 (0.52-1.04) mg/dL Glucose 145 H (74-99) mg/dL Calcium 8.3 L (8.4-10.2) mg/dL AST 23 (14-36) U/L ALT 17 (4-34) U/L Alkaline Phosphatase 79 (38-126) U/L Total Protein 5.6 L (6.3-8.2) g/dL Albumin 3.2 L (3.5-5.0) g/dL Calcium panel 08/28/22 Range/Units 15:39 Calcium 8.3 L (8.4-10.2) mg/dL Phosphorus 4.1 (2.5-4.5) mg/dL Albumin 3.2 L (3.5-5.0) g/dL Pituitary panel 08/28/22 Range/Units 15:39 Sodium 135 L (137-145) mmol/L Potassium 4.3 (3.5-5.1) mmol/L Chloride 101 (98-107) mmol/L Carbon Dioxide 24 (22-30) mmol/L BUN 19 H (7-17) mg/dL Creatinine 0.93 (0.52-1.04) mg/dL Glucose 145 H (74-99) mg/dL Calcium 8.3 L (8.4-10.2) mg/dL Adrenal panel 08/28/22 Range/Units 15:39 Sodium 135 L (137-145) mmol/L Potassium 4.3 (3.5-5.1) mmol/L Chloride 101 (98-107) mmol/L Carbon Dioxide 24 (22-30) mmol/L BUN 19 H (7-17) mg/dL Creatinine 0.93 (0.52-1.04) mg/dL Glucose 145 H (74-99) mg/dL Calcium 8.3 L (8.4-10.2) mg/dL Total Bilirubin 0.6 (0.2-1.3) mg/dL AST 23 (14-36) U/L ALT 17 (4-34) U/L Alkaline Phosphatase 79 (38-126) U/L Total Protein 5.6 L (6.3-8.2) g/dL Albumin 3.2 L (3.5-5.0) g/dL Assessment and Plan Assessment: Postoperative wound infection. Status post right femoral to anterior tibial bypass graft utilizing cryopreserve d vein. Plan: 1: We'll obtain computed tomography scan of the right lower extremity to rule out a deeper abscess. 2: Agree with IV antibiotic therapy. 3: Will pack wound with iodoform strip gauze. 4: Further recommendations to follow. 5: The patient is nontoxic and does not have a leukocytosis. Cryo-veins are significantly resistant to infectious issues and is hoped that local wound care and antibiotic therapy will be sufficient.
[2022-08-28] MEDS: SODIUM CHLORIDE 0.9% 1,000 ML IV SCH (20:14)
[2022-08-29] MEDS ORDERED: PIPERACILLIN-TAZOBACTAM 3.375 GM in SODIUM CHLORIDE 0.9% 100 ML IVPB SCH ×2
[2022-08-29] MEDS: SODIUM CHLORIDE 0.9% 1,000 ML IV SCH ×3 (01:32→23:48)
[2022-08-29] MEDS ORDERED: ACETAMINOPHEN TAB 500 MG TAB PO PRN (04:40)
[2022-08-29] MEDS ORDERED: DEXTROSE 50% SYRINGE 50 ML IVP PRN ×2 (04:44)
[2022-08-29] MEDS: LEVOTHYROXINE 25 MCG TAB PO SCH (05:37)
[2022-08-29] MEDS ORDERED: CEFEPIME 2 GM in SODIUM CHLORIDE 0.9% 100 ML IVPB SCH (06:00)
[2022-08-29] MEDS: INSULIN ASPART (NovoLOG) 100 UNIT/ML VIAL SQ SCH ×4 (07:55→21:14)
[2022-08-29 08:02] LABS: Glucose,Whole Blood 104 mg/dL (70-110)
[2022-08-29 09:35] LABS: African American GFR (CKD) 66.7 (60.0-200.0); Albumin 3.2 g/dL (3.8-4.9); Albumin/Globulin Ratio 1.79 (1.60-3.17); BUN/Creat Ratio 14.86 Ratio (12.00-20.00); Blood Urea Nitrogen 14.5 mg/dL (9.0-27.0); Calcium 8.2 mg/dL (8.7-10.3); Carbon Dioxide 22.5 mmol/L (20.0-27.5); Globulin 1.8 g/dL (1.6-3.3); Non-African American GFR(CKD) 57.5 (60.0-200.0); Phosphorus 3.4 mg/dL (2.4-5.1); Potassium 4.4 mmol/L (3.5-5.5); Total Bilirubin 0.5 mg/dL (0.30-1.20)
[2022-08-29 09:38] LABS: Basophils # (A) 0.04 X 10*3/uL (0.00-0.10); Basophils % (A) 0.5 %; Eosinophils # (A) 0.14 X 10*3/uL (0.04-0.35); Eosinophils % (A) 1.9 %; HCT 31.9 % (37.2-46.3); HGB 9.5 g/dL (12.0-15.0); Immature Grans, Automated 0.3 %; Lymphocytes # (A) 2.25 X 10*3/uL (0.90-5.00); Lymphocytes % (A) 30.3 %; MCH 29.2 pg (27.0-32.0); MCHC 29.8 g/dL (32.0-37.0); MCV 98.2 fL (80.0-97.0); Mean Platelet Volume 10.2 fL (9.5-12.2); Monocytes % (A) 9.4 %; NRBC Per 100 WBC 0 /100 WBCS (0.0-0.0); Neutrophils # (A) 4.28 X 10*3/uL (1.80-7.70); Neutrophils % (A) 57.6 %; Platelet Count 321 X 10*3/uL (140-440); RBC 3.25 X 10*6/uL (4.10-5.20); RDW 14.9 % (11.5-14.5); WBC 7.43 X 10*3/uL (4.50-10.00)
[2022-08-29] MEDS: VANCOMYCIN 1,250 MG in SODIUM CHLORIDE 0.9% 250 ML IVPB SCH (10:46)
[2022-08-29] MEDS: MORPHINE SULFATE 4 MG/ML SYRINGE IV PRN ×3 (10:54→21:22)
[2022-08-29] MEDS: ASPIRIN 81 MG PO SCH (10:56)
[2022-08-29] MEDS: GABAPENTIN 300 MG CAP PO SCH ×2 (10:56→21:21)
[2022-08-29] MEDS: CLOPIDOGREL 75 MG TAB PO SCH (10:56)
[2022-08-29] MEDS: FLUoxetine HCL 20 MG CAP PO SCH (10:57)
[2022-08-29] MEDS: levETIRAcetam 500 MG TAB PO SCH ×2 (10:57→21:21)
[2022-08-29] MEDS: PANTOPRAZOLE 40 MG/10 ML VIAL IV SCH (11:00)
[2022-08-29 12:56] LABS: Glucose,Whole Blood 100 mg/dL (70-110)
--- NOTE | 2022-08-29 12:57 | P.HPIM ---
History of Present Illness H&P Date: 08/29/22 This is a pleasant 72 year old female with medical history of COPD, CVA/TIA, diabetes mellitus, hyperlipidemia, sleep apnea, peripheral vascular disease, anal cancer with chemo and radiation. Patient presents to the hospital with concern for drainage and redness of the right groin surgical site. Patient was recently hospitalized and underwent right femoral to anterior tibial bypass secondary to severe peripheral artery disease and critical limb ischemia. Patient was discharged home. The day after discharge patient had a mechanical fall off the toilet and was pinned between the wall and toilet for about an hour. She was evaluated in the ER and had the wound vac in place post fall. Patient states that about 3 to 4 days after discharge there was malodorous discharge from the right groin site and was seen in the office by vascular surgery. Patient states the drainage is now purulent and increasing in quantity the groin site is red and tender. Reports feeling feverish at home and nauseas the last 24 hours. Patient continues to report neuropathic pain to the right foot feels like intermittent sharp jabs, has been started on gabapentin for this. Initial work up reveals no elevated white count, no fever, hemoglobin of 10. Patient is admitted to the hospital and has been started on IV antibiotic therapy with groin and blood cultures pending. Vascular surgery and infectious disease are consulted. Patient will have CT scan taken of the right groin to rule out underlying abscess. The wound has been packed with gauze by vascular surgery. REVIEW OF SYSTEMS: CONSTITUTIONAL: Reports fever, no malaise, no fatigue. HEENT: No recent visual problems or hearing problems. Denied any sore throat. CARDIOVASCULAR: No chest pain, orthopnea, PND, no palpitations, no syncope. PULMONARY: No shortness of breath, no cough, no hemoptysis. GASTROINTESTINAL: No diarrhea, no nausea, no vomiting, no abdominal pain. NEUROLOGICAL: No headaches, no weakness, no numbness. HEMATOLOGICAL: Denies any bleeding or petechiae. GENITOURINARY: Denies any burning micturition, frequency, or urgency. MUSCULOSKELETAL/RHEUMATOLOGICAL: Denies any joint pain, swelling, or any muscle pain. ENDOCRINE: Denies any polyuria or polydipsia. The rest of the 14-point review of systems is negative. PHYSICAL EXAMINATION: GENERAL: The patient is alert and oriented x3, not in any acute distress. Well developed, well nourished. HEENT: Pupils are round and equally reacting to light. EOMI. No scleral icterus. No conjunctival pallor. Normocephalic, atraumatic. No pharyngeal erythema. No thyromegaly. CARDIOVASCULAR: S1 and S2 present. No murmurs, rubs, or gallops. PULMONARY: Chest is clear to auscultation, no wheezing or crackles. ABDOMEN: Soft, nontender, nondistended, normoactive bowel sounds. No palpable organomegaly. MUSCULOSKELETAL: No joint swelling or deformity. EXTREMITIES: Wound to the right groin is packed with gauze there is green purulent drainage and large quantity of sanguinous drainage soaking the dressing. The surrounding skin has some induration. There is positive dorsalis pedis pulses. NEUROLOGICAL: Gross neurological examination did not reveal any focal deficits. SKIN: No rashes. Assessment and Plan Assessment Right inguinal surgical wound infection Status post right femoral to anterior tibial artery bypass secondary to critical limb ischemia Peripheral artery disease Peripheral neuropathy Diabetes Mellitus type 2 Hyperlipidemia Hx of brain/AAA aneurysm History of COPD with no acute exacerbation History or CVA/TIA Hx of anal cancer with chemo and radiation Anxiety/Depression Former Smoker GI Prophylaxis DVT Prophylaxis Full Code Plan Continue on IV antibiotics with wound and blood culture pending Vascular surgery and infectious disease on consultation CT of the right inguinal area is taken to rule out underlying abscess Continue with pain management patient is resumed on home medications The impression and plan of care has been dictated by Margarita Lyons Nurse Practitioner as directed. Dr. Cathi MD I have performed a history and physical examination and medical decision making of this patient, discussed the same with the dictator, and agree with the dictators assessment and plan as written, documented as a scribe. Based on total visit time, I have performed more than 50% of this visit. 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 ,States yeast infection in genital area and folds of abd., diet controlled diabetes., has stimulator left hip for back pain (not working)., PAD. History of Any Multi-Drug Resistant Organisms: None Reported Past Surgical History: Appendectomy, Back Surgery, Bladder Surgery, Cholecystectomy, Hysterectomy, Joint Replacement Additional Past Surgical History / Comment(s): Bilateral knee replacements, right shoulder rotator cuff X2, bilateral iliac femoral stents, bladder suspension X2, right Mediport removed, left lung biopsy, lymph node biopsy, left groin biopsy(malignant). bilateral carpal tunnel, bilateral cataracts, right shoulder replacement. stimulator in hip (left) for back, bilateral iliac arterial stents., R femoral stent Past Anesthesia/Blood Transfusion Reactions: No Reported Reaction, Family History of Problems w/ Anesthesia Additional Past Anesthesia/Blood Transfusion Reaction / Comment(s): Claustrophobic., vomited and aspirated during colonoscopy. son had difficulty waking up after surgery Past Psychological History: Anxiety, Depression Smoking Status: Former smoker, Vaper Past Alcohol Use History: None Reported Past Drug Use History: None Reported - Past Family History Sister(s) Family Medical History: Cancer Additional Family Medical History / Comment(s): Lung cancer. other sister heart failure Brother(s) Family Medical History: Cancer Additional Family Medical History / Comment(s): Lung cancer. Mother Family Medical History: Cancer Additional Family Medical History / Comment(s): Drugs and alcohol - of. Ear lobe cancer. Father Family Medical History: Cancer, Hyperlipidemia, Hypertension Additional Family Medical History / Comment(s): Skin cancer. Medications and Allergies Home Medications Medication Instructions Recorded Confirmed Type Clopidogrel [Plavix] 75 mg PO DAILY 08/15/16 08/28/22 History Levothyroxine Sodium [Synthroid] 25 mcg PO DAILY 08/15/16 08/28/22 History FLUoxetine HCL [PROzac] 40 mg PO DAILY 07/25/20 08/28/22 History levETIRAcetam [Keppra] 500 mg PO BID 07/25/20 08/28/22 History Gabapentin [Neurontin] 300 mg PO TID 08/03/22 08/28/22 History Aspirin 81 mg PO DAILY #30 tab 08/10/22 08/28/22 Rx Acetaminophen Tab [Tylenol Tab] 1,000 mg PO Q6H PRN 08/28/22 08/28/22 History HYDROcodone/APAP 7.5-325MG [[place] 1 tab PO Q4H PRN 08/28/22 08/28/22 History 7.5-325] traZODone HCL [Trazodone HCl] 150 mg PO HS 08/28/22 08/28/22 History Allergies Allergy/AdvReac Type Severity Reaction Status Date / Time erythromycin base Allergy Rash/Hives Verified 08/28/22 16:14 Fish Containing Products Allergy Anaphylaxis Verified 08/28/22 16:14 Penicillins Allergy Anaphylaxis Verified 08/28/22 16:14 shellfish derived [Shellfish] Allergy Anaphylaxis Verified 08/28/22 16:14 levofloxacin [From Levaquin] AdvReac Rash/Hives, Verified 08/28/22 16:14 swelling Physical Exam Vitals: Vital Signs Temp Pulse Resp BP Pulse Ox 08/29/22 05:24 98.4 F 79 16 122/61 97 08/29/22 01:44 83 18 121/63 95 08/29/22 00:06 74 18 123/63 95 08/28/22 22:14 69 16 114/43 100 08/28/22 20:12 77 20 124/77 98 08/28/22 17:03 98 F 72 16 139/61 97 08/28/22 15:13 98.4 F 66 20 131/99 96 08/28/22 14:59 98.3 F 68 18 109/37 98 Results CBC & Chem 7: 08/29/22 04:10 08/29/22 04:10 Labs: Abnormal Lab Results - Last 24 Hours (Table) 08/28/22 08/28/22 Range/Units 15:39 15:39 RBC 3.35 L (3.80-5.40) m/uL Hgb 10.0 L (11.4-16.0) gm/dL Hct 30.6 L (34.0-46.0) % Sodium 135 L (137-145) mmol/L BUN 19 H (7-17) mg/dL Glucose 145 H (74-99) mg/dL Calcium 8.3 L (8.4-10.2) mg/dL C-Reactive Protein 5.5 H (<1.0) mg/dL Total Protein 5.6 L (6.3-8.2) g/dL Albumin 3.2 L (3.5-5.0) g/dL Assessment and Plan Time with Patient: Less than 30
--- NOTE | 2022-08-29 14:33 | P.PN ---
Subjective Progress Note Date: 08/29/22 Hospital day #2. Patient is without complaints. She reports no increase nor decrease in the amount of discomfort or other symptoms. She denies chills or fevers. Objective - Vital Signs Vital signs: Vital Signs Temp 98.4 F 08/29/22 05:24 Pulse 87 08/29/22 11:01 Resp 18 08/29/22 11:01 BP 137/76 08/29/22 11:01 Pulse Ox 96 08/29/22 11:01 FiO2 Intake & Output 08/28/22 08/29/22 08/29/22 18:59 06:59 18:59 Weight 74.843 kg - Exam Vital signs are stable and patient is afebrile. Wound continues to drain serous fluid. Iodoform gauze is intact. There is no surrounding cellulitis. Graft remains patent. - Labs CBC & Chem 7: 08/29/22 04:10 08/29/22 04:10 Labs: Abnormal Lab Results - Last 24 Hours (Table) 08/28/22 08/28/22 08/29/22 Range/Units 15:39 15:39 04:10 RBC 3.35 L 3.25 L (3.80-5.40) m/uL Hgb 10.0 L 9.5 L (11.4-16.0) gm/dL Hct 30.6 L 31.9 L (34.0-46.0) % MCV 98.2 H (80.0-97.0) fL MCHC 29.8 L (32.0-37.0) g/dL RDW 14.9 H (11.5-14.5) % Sodium 135 L (137-145) mmol/L Anion Gap (10.00-18.00) mmol/L BUN 19 H (7-17) mg/dL Est GFR (CKD-EPI)NonAf (60.0-200.0) Glucose 145 H (74-99) mg/dL Calcium 8.3 L (8.4-10.2) mg/dL C-Reactive Protein 5.5 H (<1.0) mg/dL Total Protein 5.6 L (6.3-8.2) g/dL Albumin 3.2 L (3.5-5.0) g/dL 08/29/22 Range/Units 04:10 RBC (3.80-5.40) m/uL Hgb (11.4-16.0) gm/dL Hct (34.0-46.0) % MCV (80.0-97.0) fL MCHC (32.0-37.0) g/dL RDW (11.5-14.5) % Sodium (137-145) mmol/L Anion Gap 8.00 L (10.00-18.00) mmol/L BUN (7-17) mg/dL Est GFR (CKD-EPI)NonAf 57.5 L (60.0-200.0) Glucose 114 H (74-99) mg/dL Calcium 8.2 L (8.4-10.2) mg/dL C-Reactive Protein (<1.0) mg/dL Total Protein 5.0 L (6.3-8.2) g/dL Albumin 3.2 L (3.5-5.0) g/dL Assessment and Plan Assessment: Postoperative wound infection. Status post right femoral to anterior tibial bypass graft utilizing cryopreserved vein. Plan: Plan: Continue IV antibiotics and local wound care. We await cultures. Patient may be up and ambulatory if she chooses. Time with Patient: Less than 30
[2022-08-29] MEDS: CEFEPIME 2 GM in SODIUM CHLORIDE 0.9% 100 ML IVPB SCH ×2 (16:03→23:43)
[2022-08-29 17:18] LABS: Glucose,Whole Blood 102 mg/dL (70-110)
--- NOTE | 2022-08-29 19:20 | CT ---
EXAMINATION TYPE: CT lower extremity RT wo con DATE OF EXAM: 08/29/2022 COMPARISON: None HISTORY: Right groin pain post femoral graft. CT DLP: 1223.3 mGycm Automated exposure control for dose reduction was used. Contrast: None Technique: Axial images 3 mm thick sections. Reconstructed images in the coronal and sagittal planes. FINDINGS: There is a right knee prosthesis limiting portions of the evaluation. No acute fractures are identifi ed. There is a open wound in the right inguinal region. There is some packing within the wound. This open wound collection terminates near the inguinal ring. No Intraperitoneal extension is identified. This measures 4.9 x 2.0 x 6.3 cm. No residual abscess is identified. IMPRESSION: 1. OPEN WOUND IN THE RIGHT INGUINAL REGION MEASURES 4.9 X 2.0 X 6.3 CM. UNDERLYING ABSCESS IS NOT KADE NTIFIED.
[2022-08-29] MEDS: HYDROcodone/APAP 7.5-325MG 1 EACH TAB PO PRN (19:44)
[2022-08-29 19:59] LABS: Glucose,Whole Blood 98 mg/dL (70-110)
[2022-08-29] MEDS: traZODone HCL 50 MG TAB PO SCH (21:21)
--- NOTE | 2022-08-29 22:26 | P.CONS ---
History of Present Illness - Reason for Consult Consult date: 08/29/22 Right groin wound and cellulitis Requesting physician: Margarita Lyons - Chief Complaint Right groin wound and drainage x days - History of Present Illness Patient is a 72 female with a past medical insignificant for COPD CVA TIA diabetes mellitus hyperlipidemia peripheral vascular disease history of anal cancer status post chemoradiation therapy, patient recently underwent right femoral to anterior tibial bypass for her severe peripheral arterial disease/c ritical limb ischemia, patient started having some drainage from right groin area few days after her surgeries and the patient was complaining of pain describing to be more of a sharp in nature 7-8 out of 10 no radiation with increasing pain swelling redness and drainage patient presented to hospital on arrival to the ER the patient was afebrile and no fever have encouraged subsequently patient did have a normal white count kidney function has been normal liver enzymes are normal CRP was 5.5 blood local cultures obtained which are currently pending patient was started on vancomycin and cefepime infectious disease was consulted for further management of antibiotic therapy Review of Systems Positive point and negatives has been mentioned in the HPI, complete review of systems was performed and all other systems are negative 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 ,States yeast infection in genital area and folds of abd., diet controlled diabetes., has stimulator left hip for back pain (not working)., PAD. History of Any Multi-Drug Resistant Organisms: None Reported Past Surgical History: Appendectomy, Back Surgery, Bladder Surgery, Cholecys tectomy, Hysterectomy, Joint Replacement Additional Past Surgical History / Comment(s): Bilateral knee replacements, right shoulder rotator cuff X2, bilateral iliac femoral stents, bladder suspension X2, right Mediport removed, left lung biopsy, lymph node biopsy, left groin biopsy(malignant). bilateral carpal tunnel, bilateral cataracts, right shoulder replacement. stimulator in hip (left) for back, bilateral iliac arterial stents., R femoral stent Past Anesthesia/Blood Transfusion Reactions: No Reported Reaction, Family History of Problems w/ Anesthesia Additional Past Anesthesia/Blood Transfusion Reaction / Comm: Claustrophobic., vomited and aspirated during colonoscopy. son had difficulty waking up after surgery Past Psychological History: Anxiety, Depression Smoking Status: Former smoker, Vaper Past Alcohol Use History: None Reported Past Drug Use History: None Reported - Past Family History Sister(s) Family Medical History: Cancer Additional Family Medical History / Comment(s): Lung cancer. other sister heart failure Brother(s) Family Medical History: Cancer Additional Family Medical History / Comment(s): Lung cancer. Mother Family Medical History: Cancer Additional Family Medical History / Comment(s): Drugs and alcohol - of. Ear lobe cancer. Father Family Medical History: Cancer, Hyperlipidemia, Hypertension Additional Family Medical History / Comment(s): Skin cancer. Medications and Allergies Home Medications Medication Instructions Recorded Confirmed Type Clopidogrel [Plavix] 75 mg PO DAILY 08/15/16 08/28/22 History Levothyroxine Sodium [Synthroid] 25 mcg PO DAILY 08/15/16 08/28/22 History FLUoxetine HCL [PROzac] 40 mg PO DAILY 07/25/20 08/28/22 History levETIRAcetam [Keppra] 500 mg PO BID 07/25/20 08/28/22 History Gabapentin [Neurontin] 300 mg PO TID 08/03/22 08/28/22 History Aspirin 81 mg PO DAILY #30 tab 08/10/22 08/28/22 Rx Acetaminophen Tab [Tylenol] 1,000 mg PO Q6H PRN 08/28/22 08/28/22 History traZODone HCL 150 mg PO HS 08/28/22 08/28/22 History Cefdinir [Omnicef] 300 mg PO BID 10 Days #20 cap 09/02/22 Rx Collagenase [Santyl Ointment] 1 applic TOPICAL DAILY #1 each 09/02/22 Rx HYDROcodone/APAP 7.5-325MG [[place] 1 tab PO Q4H PRN 7 Days #42 tab 09/02/22 Rx 7.5-325] Nystatin 100,000 Unit/ml Susp 5 ml PO QID #140 ml 09/02/22 Rx [Mycostatin Oral Susp] Pantoprazole [Protonix] 40 mg PO AC-BRKFST #30 tab 09/02/22 Rx metroNIDAZOLE [Flagyl] 500 mg PO TID 10 Days #30 tab 09/02/22 Rx Allergies Allergy/AdvReac Type Severity Reaction Status Date / Time erythromycin base Allergy Rash/Hives Verified 08/28/22 16:14 Fish Containing Products Allergy Anaphylaxis Verified 08/28/22 16:14 Penicillins Allergy Anaphylaxis Verified 08/28/22 16:14 shellfish derived [Shellfish] Allergy Anaphylaxis Verified 08/28/22 16:14 levofloxacin [From Levaquin] AdvReac Rash/Hives, Verified 08/28/22 16:14 swelling Physical Exam Vitals: Vital Signs Temp Pulse Resp BP Pulse Ox 08/29/22 11:01 87 18 137/76 96 08/29/22 05:24 98.4 F 79 16 122/61 97 08/29/22 01:44 83 18 121/63 95 08/29/22 00:06 74 18 123/63 95 08/28/22 22:14 69 16 114/43 100 08/28/22 20:12 77 20 124/77 98 08/28/22 17:03 98 F 72 16 139/61 97 08/28/22 15:13 98.4 F 66 20 131/99 96 08/28/22 14:59 98.3 F 68 18 109/37 98 GENERAL DESCRIPTION: Elderly female lying in bed, no distress. No tachypnea or accessory muscle of respiration use. HEENT: Shows Pallor , no scleral icterus. Oral mucous membrane is dry. No p haryngeal erythema or thrush NECK: Trachea central, no thyromegaly. LUNGS: Unlabored breathing. Clear to auscultation anteriorly. No wheeze or crackle. HEART: S1, S2, regular rate and rhythm. No loud murmur ABDOMEN: Soft, no tenderness , guarding or rigidity, no organomegaly EXTREMITIES: Right groin wound with some slough tissue some foul-smelling drainage SKIN: No rash, no masses palpable. NEUROLOGICAL: The patient is awake, alert, oriented x3, mood and affect normal. Results CBC & Chem 7: 09/01/22 05:56 09/02/22 06:25 Labs: Abnormal Lab Results - Last 24 Hours (Table) 08/28/22 08/28/22 08/29/22 Range/Units 15:39 15:39 04:10 RBC 3.35 L 3.25 L (3.80-5.40) m/uL Hgb 10.0 L 9.5 L (11.4-16.0) gm/dL Hct 30.6 L 31.9 L (34.0-46.0) % MCV 98.2 H (80.0-97.0) fL MCHC 29.8 L (32.0-37.0) g/dL RDW 14.9 H (11.5-14.5) % Sodium 135 L (137-145) mmol/L Anion Gap (10.00-18.00) mmol/L BUN 19 H (7-17) mg/dL Est GFR (CKD-EPI)NonAf (60.0-200.0) Glucose 145 H (74-99) mg/dL Calcium 8.3 L (8.4-10.2) mg/dL C-Reactive Protein 5.5 H (<1.0) mg/dL Total Protein 5.6 L (6.3-8.2) g/dL Albumin 3.2 L (3.5-5.0) g/dL 08/29/22 Range/Units 04:10 RBC (3.80-5.40) m/uL Hgb (11.4-16.0) gm/dL Hct (34.0-46.0) % MCV (80.0-97.0) fL MCHC (32.0-37.0) g/dL RDW (11.5-14.5) % Sodium (137-145) mmol/L Anion Gap 8.00 L (10.00-18.00) mmol/L BUN (7-17) mg/dL Est GFR (CKD-EPI)NonAf 57.5 L (60.0-200.0) Glucose 114 H (74-99) mg/dL Calcium 8.2 L (8.4-10.2) mg/dL C-Reactive Protein (<1.0) mg/dL Total Protein 5.0 L (6.3-8.2) g/dL Albumin 3.2 L (3.5-5.0) g/dL Assessment and Plan (1) Abscess of right groin Status: Acute Code(s): L02.214 - CUTANEOUS ABSCESS OF GROIN SNOMED Code(s): 20881382 Plan: 1patient with the recent vascular procedure to the right lower extremity not present to the hospital with the right groin wound foul-smelling drainage concerning for wound infection we will need to call for the gram-positive as well as gram-negative pathogen. 2patipatient with a penicillin ALLERGY long time ago however subsequently patient's taken amoxicillin clinically doubt true penicillin allergy 3patient to continue with the cefepime and vancomycin while waiting for the culture to finalize We will follow on clinical condition and cultures to further adjust medication if needed Thank you for this consultation we will follow the patient along with you Time with Patient: Greater than 30
[2022-08-29] MEDS: HEPARIN SODIUM,PORCINE/PF 5,000 UNIT/0.5 ML SYRINGE SQ SCH (23:44)
[2022-08-30] MEDS: VANCOMYCIN 1,250 MG in SODIUM CHLORIDE 0.9% 250 ML IVPB SCH ×2 (02:01→17:59)
[2022-08-30] MEDS: LEVOTHYROXINE 25 MCG TAB PO SCH (05:50)
[2022-08-30 07:45] LABS: Glucose,Whole Blood 106 mg/dL (70-110)
[2022-08-30] MEDS: levETIRAcetam 500 MG TAB PO SCH ×2 (08:10→21:51)
[2022-08-30] MEDS: ASPIRIN 81 MG PO SCH (08:10)
[2022-08-30] MEDS: HEPARIN SODIUM,PORCINE/PF 5,000 UNIT/0.5 ML SYRINGE SQ SCH ×2 (08:10→21:50)
[2022-08-30] MEDS: CLOPIDOGREL 75 MG TAB PO SCH (08:10)
[2022-08-30] MEDS: FLUoxetine HCL 20 MG CAP PO SCH (08:10)
[2022-08-30] MEDS: GABAPENTIN 300 MG CAP PO SCH ×3 (08:10→21:51)
[2022-08-30] MEDS: PANTOPRAZOLE 40 MG/10 ML VIAL IV SCH (08:10)
[2022-08-30] MEDS: MORPHINE SULFATE 4 MG/ML SYRINGE IV PRN ×2 (08:14→12:24)
[2022-08-30] MEDS: INSULIN ASPART (NovoLOG) 100 UNIT/ML VIAL SQ SCH ×4 (08:26→21:39)
[2022-08-30] MEDS: CEFEPIME 2 GM in SODIUM CHLORIDE 0.9% 100 ML IVPB SCH ×3 (08:27→23:06)
[2022-08-30 11:40] LABS: Glucose,Whole Blood 110 mg/dL (70-110)
--- NOTE | 2022-08-30 14:40 | P.PN ---
Subjective Progress Note Date: 08/30/22 This is a pleasant 72 year old female with medical history of COPD, CVA/TIA, diabetes mellitus, hyperlipidemia, sleep apnea, peripheral vascular disease, anal cancer with chemo and radiation. Patient presents to the hospital with concern for drainage and redness of the right groin surgical site. Patient was recently hospitalized and underwent right femoral to anterior tibial bypass secondary to severe peripheral artery disease and critical limb ischemia. Patient was discharged home. The day after discharge patient had a mechanical fall off the toilet and was pinned between the wall and toilet for about an hour. She was evaluated in the ER and had the wound vac in place post fall. Patient states that about 3 to 4 days after discharge there was malodorous discharge from the right groin site and was seen in the office by vascular surgery. Patient states the drainage is now purulent and increasing in quantity the groin site is red and tender. Reports feeling feverish at home and nauseas the last 24 hours. Patient continues to report neuropathic pain to the right foot feels like intermittent sharp jabs, has been started on gabapentin for this. Initial work up reveals no elevated white count, no fever, hemoglobin of 10. Patient is admitted to the hospital and has been started on IV antibiotic therapy with groin and blood cultures pending. Vascular surgery and infectious disease are consulted. Patient will have CT scan taken of the right groin to rule out underlying abscess. The wound has been packed with gauze by vascular surgery. 08/30/2022 Patient is evaluated on medical floor. More lethargic than yesterday. Wound has been changed and repacked with iodoform. CT taken not showing an underlying abscess, right inguinal wound size of 4.9 x 2.0 x 6.[address] imaging. Cultures are pending there are moderate gram negative bacilli and few gram positive cocci. Blood culture is negative so far. Patient has been hydrated overnight with normal saline. Developing low grade fever 99.1, 99.7. Blood pressure in the high 90s to low 100s systolic. Has been placed on oxygen at 2L nasal cannula as pulse oximeter found to be 70% on room air. Patient remains on IV vancomycin and IV cefepime. Vascular surgery and infectious disease are following. Review of Systems Constitutional: Reports fatigue, Reports fever Cardio vascular: denied any chest pain, palpitations Gastrointestinal: denied any nausea, vomiting, diarrhea Pulmonary: Denied any shortness of breath cough Neurologic denied any new focal deficits, reports generalized weakness. All inpatient medications were reviewed and appropriate changes in these medications as dictated in the interval history and assessment and plan. PHYSICAL EXAMINATION: GENERAL: The patient is alert and oriented x3, not in any acute distress. Well developed, well nourished. HEENT: Pupils are round and equally reacting to light. EOMI. No scleral icterus. No conjunctival pallor. Normocephalic, atraumatic. No pharyngeal erythema. No thyromegaly. CARDIOVASCULAR: S1 and S2 present. No murmurs, rubs, or gallops. PULMONARY: Chest is clear to auscultation, no wheezing or crackles. ABDOMEN: Soft, nontender, nondistended, normoactive bowel sounds. No palpable organomegaly. MUSCULOSKELETAL: No joint swelling or deformity. EXTREMITIES: Wound to the right groin is packed with gauze continues with serosanguineous drainage. Redness has improved continue with small area of induration. +2 pedal pulse. NEUROLOGICAL: Gross neurological examination did not reveal any focal deficits. Generalized weakness. SKIN: No rashes. Assessment and Plan Assessment Right inguinal surgical wound infection with sepsis present on admission Status post right femoral to anterior tibial artery bypass secondary to critical limb ischemia Peripheral artery disease Peripheral neuropathy Diabetes Mellitus type 2 Hyperlipidemia Hx of brain/AAA aneurysm History of COPD with no acute exacerbation History or CVA/TIA Hx of anal cancer with chemo and radiation Anxiety/Depression Former Smoker GI Prophylaxis DVT Prophylaxis Full Code Plan Continue on IV antibiotics with wound and blood culture pending Vascular surgery and infectious disease on consultation Continue local wound care to the right groin Chest xray ordered continued oxygen support Continue with pain management and supportive care The impression and plan of care has been dictated by Margarita Lyons, Nurse Practitioner as directed. Dr. Cathi MD I have performed a history and physical examination and medical decision making of this patient, discussed the same with the dictator, and agree with the dictators assessment and plan as written, documented as a scribe. Based on total visit time, I have performed more than 50% of this visit. Objective - Vital Signs Vital signs: Vital Signs Temp 99.7 F H 08/30/22 11:17 Pulse 71 08/30/22 11:17 Resp 16 08/30/22 11:17 BP 108/64 08/30/22 11:17 Pulse Ox 93 L 08/30/22 11:17 FiO2 Intake & Output 08/29/22 08/30/22 08/30/22 18:59 06:59 18:59 Intake Total 1250 Balance 1250 Weight 74.843 kg Intake: Intake, IV Titration 950 Amount Cefepime 2 gm In Sodium 100 Chloride 0.9% 100 ml @ 25 mls/hr IVPB Q8H [facility] Rx#: [id number] Sodium Chloride 0.9% 1, 600 000 ml @ 75 mls/hr IV . [id number] [facility] Rx#:[id number] Vancomycin 1,250 mg In 250 Sodium Chloride 0.9% 250 ml @ 125 mls/hr IVPB Q16H [facility] Rx#:[id number] Oral 300 Other: Voiding Method Bedside Commode Toilet Bedside Commode # Voids 1 - Labs CBC & Chem 7: 08/29/22 04:10 08/30/22 08:24 Labs: Microbiology - Last 24 Hours (Table) 08/28/22 15:29 Blood Culture - Preliminary Blood 08/28/22 15:25 Blood Culture - Preliminary Blood 08/29/22 13:57 Gram Stain - Preliminary Leg - Right Wound Culture - Preliminary 08/29/22 13:57 Anaerobic Culture - Preliminary Leg - Right Assessment and Plan Time with Patient: Less than 30
--- NOTE | 2022-08-30 15:52 | P.PN ---
Subjective Progress Note Date: 08/30/22 Principal diagnosis: Right groin wound infection Patient is a 72 -year-old female with a past medical insignificant for COPD CVA TIA diabetes mellitus hyperlipidemia peripheral vascular disease history of anal cancer status post chemoradiation therapy, patient recently underwent right femoral to anterior tibial bypass for her severe peripheral arterial disease/critical limb ischemia, patient presented to the hospital with increasing drainage and pain to the groin area concerning for infected wound CT was negative for any abscess On today's evaluation and that is 08/30/2022, patient did have a low-grade fever of 99.9F, the patient pain to the right groin is currently controlled, patient denies having any chest pain shortness of breath or cough no nausea no vomiting no abdominal pain or diarrhea Objective - Vital Signs Vital signs: Vital Signs Temp 99.7 F H 08/30/22 11:17 Pulse 71 08/30/22 11:17 Resp 16 08/30/22 11:17 BP 108/64 08/30/22 11:17 Pulse Ox 93 L 08/30/22 11:17 FiO2 Intake & Output 08/29/22 08/30/22 08/30/22 18:59 06:59 18:59 Intake Total 1250 Balance 1250 Weight 74.843 kg Intake: Intake, IV Titration 950 Amount Cefepime 2 gm In Sodium 100 Chloride 0.9% 100 ml @ 25 mls/hr IVPB Q8H [facility] Rx#: [id number] Sodium Chloride 0.9% 1, 600 000 ml @ 75 mls/hr IV . [id number] [facility] Rx#:[id number] Vancomycin 1,250 mg In 250 Sodium Chloride 0.9% 250 ml @ 125 mls/hr IVPB Q16H [facility] Rx#:[id number] Oral 300 Other: Voiding Method Bedside Commode Toilet Bedside Commode # Voids 1 - Exam GENERAL DESCRIPTION: An elderly female lying in bed in no distress RESPIRATORY SYSTEM: Unlabored breathing , decreased breath sounds at bases HEART: S1 S2 regular rate and rhythm , ABDOMEN: Soft , no tenderness EXTREMITIES: Right groin wound is currently dressed, No edema feet - Labs CBC & Chem 7: 08/29/22 04:10 08/30/22 08:24 Labs: Microbiology - Last 24 Hours (Table) 08/28/22 15:29 Blood Culture - Preliminary Blood 08/28/22 15:25 Blood Culture - Preliminary Blood 08/29/22 13:57 Gram Stain - Preliminary Leg - Right Wound Culture - Preliminary 08/29/22 13:57 Anaerobic Culture - Preliminary Leg - Right Assessment and Plan (1) Abscess of right groin Current Visit: Yes Status: Acute Code(s): L02.214 - CUTANEOUS ABSCESS OF GROIN SNOMED Code(s): 44281550 (2) Postoperative infection Current Visit: Yes Status: Acute Code(s): T81.40XA - INFECTION FOLLOWING A PROCEDURE, UNSPECIFIED, INIT SNOMED Code(s): 23434709 Plan: 1patient with the recent vascular procedure to the right lower extremity not present to the hospital with the right groin wound foul-smelling drainage concerning for wound infection we will need to call for the gram-positive as well as gram-negative pathogen. CT was negative for any residual abscess to the right groin 2patient with a penicillin ALLERGY long time ago however subsequently patient's taken amoxicillin clinically doubt true penicillin allergy 3patient to continue with the cefepime and vancomycin while waiting for the culture to finalize, and monitor clinical course closely Time with Patient: Less than 30
[2022-08-30] MEDS: SODIUM CHLORIDE 0.9% 1,000 ML IV SCH (16:47)
[2022-08-30 17:15] LABS: Glucose,Whole Blood 124 mg/dL (70-110)
--- NOTE | 2022-08-30 17:57 | XR ---
EXAMINATION TYPE: XR chest 2V DATE OF EXAM: 08/30/2022 COMPARISON: 01/08/2021 INDICATION: Hypoxia TECHNIQUE: Frontal and lateral views of the chest are obtained. FINDINGS: The heart size is normal. The pulmonary vasculature is normal. Small posterior left pleural effusion is present. Drastic stimulator leads are evident. Right shoulde r prosthesis is present.. IMPRESSION: 1. Small left pleural effusion
[2022-08-30] MEDS: MORPHINE SULFATE 2 MG/ML SYRINGE IVP PRN (18:19)
[2022-08-30 18:51] LABS: Appearance,Urine Cloudy (Clear); Bacteria,Urine Rare /hpf; Bilirubin,Urine Negative (Negative); Blood,Urine Moderate (Negative); Color,Urine Yellow; Glucose,Urine (UA) Negative (Negative); Ketones,Urine Trace (Negative); Leukocyte Esterase,Urine Large (Negative); Mucus,Urine Rare /hpf; Nitrite,Urine Negative (Negative); PH, Urine 5.5 (5.0-8.0); Protein,Urine 1+ (Negative); RBC,Urine 45 /hpf (0-5); Specific Gravity,Urine 1.014 (1.001-1.035); Squamous Epithelial Cell,Urine 1 /hpf (0-4); Urobilinogen,Urine <2.0 mg/dL (<2.0); WBC,Urine 4 /hpf (0-5)
[2022-08-30] MEDS: HYDROcodone/APAP 7.5-325MG 1 EACH TAB PO PRN (20:01)
[2022-08-30 21:05] LABS: Glucose,Whole Blood 141 mg/dL (70-110)
[2022-08-30] MEDS: traZODone HCL 50 MG TAB PO SCH (21:51)
[2022-08-31] MEDS: MORPHINE SULFATE 2 MG/ML SYRINGE IVP PRN ×2 (02:20→08:35)
[2022-08-31] MEDS: SODIUM CHLORIDE 0.9% 1,000 ML IV SCH (02:23)
[2022-08-31] MEDS: LEVOTHYROXINE 25 MCG TAB PO SCH (05:22)
[2022-08-31 07:49] LABS: Glucose,Whole Blood 101 mg/dL (70-110)
[2022-08-31] MEDS: INSULIN ASPART (NovoLOG) 100 UNIT/ML VIAL SQ SCH ×4 (07:55→20:57)
[2022-08-31] MEDS: FLUoxetine HCL 20 MG CAP PO SCH (08:25)
[2022-08-31] MEDS: levETIRAcetam 500 MG TAB PO SCH ×2 (08:25→20:56)
[2022-08-31] MEDS: HEPARIN SODIUM,PORCINE/PF 5,000 UNIT/0.5 ML SYRINGE SQ SCH ×2 (08:25→20:56)
[2022-08-31] MEDS: CEFEPIME 2 GM in SODIUM CHLORIDE 0.9% 100 ML IVPB SCH ×2 (08:26→16:44)
[2022-08-31] MEDS: CLOPIDOGREL 75 MG TAB PO SCH (08:26)
[2022-08-31] MEDS: ASPIRIN 81 MG PO SCH (08:26)
[2022-08-31] MEDS: GABAPENTIN 300 MG CAP PO SCH ×3 (08:26→20:57)
[2022-08-31] MEDS: PANTOPRAZOLE 40 MG/10 ML VIAL IV SCH (08:26)
[2022-08-31] MEDS ORDERED: VANCOMYCIN TROUGH DUE 1 EACH MISC MISCELLANE ONE (09:00)
[2022-08-31 10:04] LABS: African American GFR (CKD) 66 (>60 ml/min/1.73 sqM); Anion Gap 8 mmol/L; Blood Urea Nitrogen 16 mg/dL (7-17); Carbon Dioxide 18 mmol/L (22-30); Chloride 108 mmol/L (98-107); Glucose 156 mg/dL (74-99); Non-African American GFR(CKD) 57 (>60 ml/min/1.73 sqM); Potassium 4.4 mmol/L (3.5-5.1); Sodium 134 mmol/L (137-145)
--- NOTE | 2022-08-31 10:23 | P.PN ---
Subjective Progress Note Date: 08/31/22 Principal diagnosis: Postop wound Patient seen and examined today as a follow-up. She is complaining of pain down her leg but mostly in her calf. She states this is new from Wednesday. Right groin dressing was changed this morning. Patient denies any fevers or chills, denies any abdominal pain, nausea or vomiting. States she has good range of motion of her right foot. Does have evidence tenderness in her foot and toes but states this is not changed. Objective - Vital Signs Vital signs: Vital Signs Temp 97.5 F L 08/31/22 07:10 Pulse 70 08/31/22 07:10 Resp 16 08/31/22 07:10 BP 117/54 08/31/22 07:10 Pulse Ox 91 L 08/31/22 07:10 FiO2 Intake & Output 08/30/22 08/31/22 08/31/22 18:59 06:59 18:59 Intake Total 1350 240 Output Total 500 Balance 1350 -260 Intake: Intake, IV Titration 1350 Amount Cefepime 2 gm In Sodium 200 Chloride 0.9% 100 ml @ 25 mls/hr IVPB Q8H [facility] Rx#: [id number] Sodium Chloride 0.9% 1, 900 000 ml @ 75 mls/hr IV . [id number] [facility] Rx#:[id number] Vancomycin 1,250 mg In 250 Sodium Chloride 0.9% 250 ml @ 125 mls/hr IVPB Q16H [facility] Rx#:[id number] Oral 240 Output: Urine 500 Other: Voiding Method Toilet Toilet Bedside Commode Bedside Commode # Voids 4 1 - Exam General appearance: The patient is alert, oriented, appears in no acute distress. HET: Head is normocephalic and atraumatic. Neck: Supple. Abdomen: Soft, nontender, nondistended. Extremities: Right groin with dressing clean dry and intact. Right thigh edema. Right foot warm to the touch, dorsal aspect and toes with some purple discoloration and cool to touch. Patient states that is chronic. Calf tendern ess. Popliteal and PT doppler signal present. Nonpalpable pulse over bypass. Sensorimotor intact. Neurological: No focal deficits. - Labs CBC & Chem 7: 08/29/22 04:10 08/31/22 09:03 Labs: Abnormal Lab Results - Last 24 Hours (Table) 08/30/22 08/30/22 08/30/22 Range/Units 17:12 18:33 21:03 Sodium (137-145) mmol/L Chloride (98-107) mmol/L Carbon Dioxide (22-30) mmol/L Glucose (74-99) mg/dL POC Glucose (mg/dL) 124 H 141 H (70-110) mg/dL Calcium (8.4-10.2) mg/dL Urine Appearance Cloudy H (Clear) Urine Protein 1+ H (Negative) Urine Ketones Trace H (Negative) Urine Blood Moderate H (Negative) Ur Leukocyte Esterase Large H (Negative) Urine RBC 45 H (0-5) /hpf Urine Bacteria Rare H (None) /hpf Urine Mucus Rare H (None) /hpf 08/31/22 Range/Units 09:03 Sodium 134 L (137-145) mmol/L Chloride 108 H (98-107) mmol/L Carbon Dioxide 18 L (22-30) mmol/L Glucose 156 H (74-99) mg/dL POC Glucose (mg/dL) (70-110) mg/dL Calcium 8.0 L (8.4-10.2) mg/dL Urine Appearance (Clear) Urine Protein (Negative) Urine Ketones (Negative) Urine Blood (Negative) Ur Leukocyte Esterase (Negative) Urine RBC (0-5) /hpf Urine Bacteria (None) /hpf Urine Mucus (None) /hpf Microbiology - Last 24 Hours (Table) 08/28/22 15:29 Blood Culture - Preliminary Blood 08/28/22 15:25 Blood Culture - Preliminary Blood 08/29/22 13:57 Gram Stain - Preliminary Leg - Right Wound Culture - Preliminary Assessment and Plan Assessment: 1. Postoperative wound infection. 2. Status post right femoral to anterior tibial bypass graft utilizing cryopreserved vein. 3. Right calf pain. Plan: 1. Venous duplex ordered right lower extremity 2. Continue local wound care with iodoform packing, daily 3. Continue with antibiotic recommendations from infectious disease 4. Encourage ambulation 5. Right lower extremity arterial ultrasound 6. Further recommendations forthcoming based on clinical course Thank you for this consultation, we'll continue to follow. The impression and plan of care has been dictated as directed. I performed a history and examination of this patient, discussed the same with the dictator. I agree with the dictator's note ,documented as a scribe. Any additional findings or plans will be noted.
[2022-08-31] MEDS: VANCOMYCIN 1,250 MG in SODIUM CHLORIDE 0.9% 250 ML IVPB SCH (11:15)
[2022-08-31 12:06] LABS: Glucose,Whole Blood 97 mg/dL (70-110)
--- NOTE | 2022-08-31 12:13 | US ---
EXAMINATION TYPE: US venous doppler duplex LE RT DATE OF EXAM: 08/31/2022 9:46 AM COMPARISON: NONE CLINICAL INDICATION: Female, 72 years old with history of right calf pain; Pain. No hx of DVT. Patien t is on Plavix. Patient has hx of iliac stents and two bypass grafts in the right leg per patient. Jimbo muse has a bypass graft down the medial side of the leg and also down the lateral side of the leg. SIDE PERFORMED: Right TECHNIQUE: The lower extremity deep venous system is examined utilizing real time linear array sonog milo with graded compression, doppler sonography and color-flow sonography. VESSELS IMAGED: Femoral Vein Popliteal Vein Small Saphenous Vein * Proximal Calf Veins (* superficial vessels) Right Leg: Exam is very limited- only color Doppler imaging was performed of veins imaged. *All compressions were deferred due to nearby bypass graft positioned medially in leg near the femora l vein. Unable to access vessels within the groin due to bandage. Unable to visualize CFV, DFV, and GSV. Color flow was shown in veins imaged, although there were significant limitations to exam. IMPRESSION: 1. No obvious deep venous thrombosis. 2. Limited examination. Noncompression Doppler evaluation was performed given recent surgery
--- NOTE | 2022-08-31 15:28 | P.PN ---
Subjective Progress Note Date: 08/31/22 This is a pleasant 72 year old female with medical history of COPD, CVA/TIA, diabetes mellitus, hyperlipidemia, sleep apnea, peripheral vascular disease, anal cancer with chemo and radiation. Patient presents to the hospital with concern for drainage and redness of the right groin surgical site. Patient was recently hospitalized and underwent right femoral to anterior tibial bypass secondary to severe peripheral artery disease and critical limb ischemia. Patient was discharged home. The day after discharge patient had a mechanical fall off the toilet and was pinned between the wall and toilet for about an hour. She was evaluated in the ER and had the wound vac in place post fall. Patient states that about 3 to 4 days after discharge there was malodorous discharge from the right groin site and was seen in the office by vascular surgery. Patient states the drainage is now purulent and increasing in quantity the groin site is red and tender. Reports feeling feverish at home and nauseas the last 24 hours. Patient continues to report neuropathic pain to the right foot feels like intermittent sharp jabs, has been started on gabapentin for this. Initial work up reveals no elevated white count, no fever, hemoglobin of 10. Patient is admitted to the hospital and has been started on IV antibiotic therapy with groin and blood cultures pending. Vascular surgery and infectious disease are consulted. Patient will have CT scan taken of the right groin to rule out underlying abscess. The wound has been packed with gauze by vascular surgery. 08/30/2022 Patient is evaluated on medical floor. More lethargic than yesterday. Wound has been changed and repacked with iodoform. CT taken not showing an underlying abscess, right inguinal wound size of 4.9 x 2.0 x 6.[address] imaging. Cultures are pending there are moderate gram negative bacilli and few gram positive cocci. Blood culture is negative so far. Patient has been hydrated overnight with normal saline. Developing low grade fever 99.1, 99.7. Blood pressure in the high 90s to low 100s systolic. Has been placed on oxygen at 2L nasal cannula as pulse oximeter found to be 70% on room air. Patient remains on IV vancomycin and IV cefepime. Vascular surgery and infectious disease are following. 08/31/2022 Patient seen and evaluated in follow-up this morning with vascular surgery and infectious disease following. Patient is maintained on IV cefepime along with vancomycin while waiting for cultures to finalize. Preliminary showing moderate gram-negative bacilli with a few gram-positive cocci. Vascular surgery following an patient underwent venous Doppler of the right lower extremity as patient is reporting some swelling and although exam is limited there is no obvious deep vein thrombosis and vascular surgery has ordered an arterial Doppler of the right. Patient also noted to have some small left pleural effusion on the chest x-ray from yesterday evening and patient was maintained on IV fluids and will discontinue. Patient has been afebrile today. Blood pressures on the lower side recommend continue monitoring closely. Encouraged increase activity as tolerated. Patient currently on subcutaneous heparin and will continue along with her aspirin and Plavix. Patient is currently afebrile denies chest pain or shortness of breath report some generalized weakness and again difficulty with ambulation due to the swelling and some pain of the right lower extremity. Review of Systems Constitutional: Reports fatigue, Reports fever Cardio vascular: denied any chest pain, palpitations Gastrointestinal: denied any nausea, vomiting, diarrhea Pulmonary: Denied any shortness of breath cough Neurologic denied any new focal deficits, reports generalized weakness and right lower extremity swelling. All inpatient medications were reviewed and appropriate changes in these medications as dictated in the interval history and assessment and plan. PHYSICAL EXAMINATION: GENERAL: The patient is alert and oriented x3, not in any acute distress. Well developed, well nourished. HEENT: Pupils are round and equally reacting to light. EOMI. No scleral icterus. No conjunctival pallor. Normocephalic, atraumatic. No pharyngeal erythema. No thyromegaly. CARDIOVASCULAR: S1 and S2 present. No murmurs, rubs, or gallops. PULMONARY: Chest is clear to auscultation, no wheezing or crackles. ABDOMEN: Soft, nontender, nondistended, normoactive bowel sounds. No palpable organomegaly. MUSCULOSKELETAL: No joint swelling or deformity. EXTREMITIES: Wound to the right groin is packed with gauze and is dry and intact as it was just changed this morning NEUROLOGICAL: Gross neurological examination did not reveal any focal deficits. Generalized weakness. SKIN: No rashes. Assessment: Right inguinal surgical wound infection with sepsis present on admission Status post right femoral to anterior tibial artery bypass secondary to critical limb ischemia Peripheral artery disease Peripheral neuropathy Diabetes Mellitus type 2 Right lower extremity swelling, ruled out DVT Hyperlipidemia Hx of brain/AAA aneurysm History of COPD with no acute exacerbation History or CVA/TIA Hx of anal cancer with chemo and radiation Anxiety/Depression Former Smoker GI Prophylaxis DVT Prophylaxis Full Code Plan: Recommend patient to Continue on IV antibiotics with wound and blood culture pending. Some preliminary culture showing gram-negative bacilli and awaiting finalized to discuss further with infectious disease about discharge planning Vascular surgery and infectious disease following as patient underwent recent fem-pop bypass and is having some right lower extremity swelling, venous Doppler was done which was negative for DVT and have ordered arterial Doppler which is pending Continue local wound care to the right groin Encouraged increase activity as tolerated Chest x-ray shows a small pleural effusion on the left although patient denies shortness of breath and is currently on room air. Patient was given a small dose of Lasix yesterday Continue with pain management and supportive care Will discuss further with infectious disease and vascular surgery once cultures are finalized to determine discharge planning Possible discharge in the next 24-48 hours The impression and plan of care has been dictated by Alida Leal, Nurse Practitioner as directed. Dr. Cathi MD I have performed a history and examination and MDM of this patient, discussed the same with the dictator, and agree with the dictator's assessment and plan as written ,documented as a scribe. Based on total visit time, I have performed more than 50% of the visit. Objective - Vital Signs Vital signs: Vital Signs Temp 97.5 F L 08/31/22 07:10 Pulse 70 08/31/22 07:10 Resp 16 08/31/22 07:10 BP 117/54 08/31/22 07:10 Pulse Ox 91 L 08/31/22 07:10 FiO2 Intake & Output 08/30/22 08/31/22 08/31/22 18:59 06:59 18:59 Intake Total 1350 240 Output Total 500 Balance 1350 -260 Intake: Intake, IV Titration 1350 Amount Cefepime 2 gm In Sodium 200 Chloride 0.9% 100 ml @ 25 mls/hr IVPB Q8H [facility] Rx#: [id number] Sodium Chloride 0.9% 1, 900 000 ml @ 75 mls/hr IV . [id number] [facility] Rx#:[id number] Vancomycin 1,250 mg In 250 Sodium Chloride 0.9% 250 ml @ 125 mls/hr IVPB Q16H [facility] Rx#:[id number] Oral 240 Output: Urine 500 Other: Voiding Method Toilet Toilet Bedside Commode Bedside Commode # Voids 4 1 - Labs CBC & Chem 7: 08/29/22 04:10 08/31/22 09:03 Labs: Abnormal Lab Results - Last 24 Hours (Table) 08/30/22 08/30/22 08/30/22 Range/Units 17:12 18:33 21:03 POC Glucose (mg/dL) 124 H 141 H (70-110) mg/dL Urine Appearance Cloudy H (Clear) Urine Protein 1+ H (Negative) Urine Ketones Trace H (Negative) Urine Blood Moderate H (Negative) Ur Leukocyte Esterase Large H (Negative) Urine RBC 45 H (0-5) /hpf Urine Bacteria Rare H (None) /hpf Urine Mucus Rare H (None) /hpf Microbiology - Last 24 Hours (Table) 08/28/22 15:29 Blood Culture - Preliminary Blood 08/28/22 15:25 Blood Culture - Preliminary Blood 08/29/22 13:57 Gram Stain - Preliminary Leg - Right Wound Culture - Preliminary
--- NOTE | 2022-08-31 15:32 | US ---
EXAMINATION TYPE: US duplex graft LE RT DATE OF EXAM: 08/31/2022 COMPARISON: NONE CLINICAL INDICATION: Female, 72 years old with history of Right lower extremity pain, recent bypass; right calf evaluate Fem/Tib bypass 08/07/22, patency. TECHNIQUE: FINDINGS: Scanned right calf medial and lateral . No flow visualized in vessels imaged. IMPRESSION: No flow is seen within the visualized vessels imaged. The imaged bypass graft does not a ppear to be patent.
[2022-08-31] MEDS: HYDROcodone/APAP 7.5-325MG 1 EACH TAB PO PRN ×2 (16:43→20:56)
[2022-08-31 16:53] LABS: Basophils # (A) 0.03 X 10*3/uL (0.00-0.10); Basophils % (A) 0.5 %; Eosinophils # (A) 0.13 X 10*3/uL (0.04-0.35); Eosinophils % (A) 2.3 %; HCT 31.9 % (37.2-46.3); HGB 9.6 g/dL (12.0-15.0); Immature Grans, Automated 0.3 %; Lymphocytes # (A) 1.57 X 10*3/uL (0.90-5.00); Lymphocytes % (A) 27.3 %; MCH 29.9 pg (27.0-32.0); MCHC 30.1 g/dL (32.0-37.0); MCV 99.4 fL (80.0-97.0); Mean Platelet Volume 10.2 fL (9.5-12.2); Monocytes # (A) 0.47 X 10*3/uL (0.20-1.00); Monocytes % (A) 8.2 %; NRBC Per 100 WBC 0 /100 WBCS (0.0-0.0); Neutrophils # (A) 3.54 X 10*3/uL (1.80-7.70); Neutrophils % (A) 61.4 %; Platelet Count 287 X 10*3/uL (140-440); RBC 3.21 X 10*6/uL (4.10-5.20); RDW 14.8 % (11.5-14.5); WBC 5.76 X 10*3/uL (4.50-10.00)
[2022-08-31 17:17] LABS: Glucose,Whole Blood 112 mg/dL (70-110)
[2022-08-31] MEDS: traZODone HCL 50 MG TAB PO SCH (20:57)
[2022-09-01] MEDS: CEFEPIME 2 GM in SODIUM CHLORIDE 0.9% 100 ML IVPB SCH ×2 (00:04→09:14)
[2022-09-01] MEDS: VANCOMYCIN 1,250 MG in SODIUM CHLORIDE 0.9% 250 ML IVPB SCH (04:20)
[2022-09-01] MEDS: LEVOTHYROXINE 25 MCG TAB PO SCH (05:15)
[2022-09-01] MEDS: HYDROcodone/APAP 7.5-325MG 1 EACH TAB PO PRN ×3 (05:15→21:39)
--- NOTE | 2022-09-01 07:27 | P.PN ---
Subjective Progress Note Date: 08/31/22 Principal diagnosis: Right groin wound infection Patient is a 72 -year-old female with a past medical insignificant for COPD CVA TIA diabetes mellitus hyperlipidemia peripheral vascular disease history of anal cancer status post chemoradiation therapy, patient recently underwent right femoral to anterior tibial bypass for her severe peripheral arterial disease/critical limb ischemia, patient presented to the hospital with increasing drainage and pain to the groin area concerning for infected wound CT was negative for any abscess On today's evaluation and that is 08/31/2022, patient is afebrile this morning, the patient pain to the right groin has slightly decreased intensity, patient denies having any chest pain shortness of breath or cough no nausea no vomiting no abdominal pain or diarrhea Objective - Vital Signs Vital signs: Vital Signs Temp 97.5 F L 08/31/22 07:10 Pulse 70 08/31/22 07:10 Resp 16 08/31/22 07:10 BP 117/54 08/31/22 07:10 Pulse Ox 91 L 08/31/22 07:10 FiO2 Intake & Output 08/30/22 08/31/22 08/31/22 18:59 06:59 18:59 Intake Total 1350 240 Output Total 500 Balance 1350 -260 Intake: Intake, IV Titration 1350 Amount Cefepime 2 gm In Sodium 200 Chloride 0.9% 100 ml @ 25 mls/hr IVPB Q8H [facility] Rx#: [id number] Sodium Chloride 0.9% 1, 900 000 ml @ 75 mls/hr IV . [id number] [facility] Rx#:[id number] Vancomycin 1,250 mg In 250 Sodium Chloride 0.9% 250 ml @ 125 mls/hr IVPB Q16H [facility] Rx#:[id number] Oral 240 Output: Urine 500 Other: Voiding Method Toilet Toilet Bedside Commode Bedside Commode # Voids 4 1 1 - Exam GENERAL DESCRIPTION: An elderly female lying in bed in no distress RESPIRATORY SYSTEM: Unlabored breathing , decreased breath sounds at bases HEART: S1 S2 regular rate and rhythm , ABDOMEN: Soft , no tenderness EXTREMITIES: Right groin wound is currently dressed, No edema feet - Labs CBC & Chem 7: 08/31/22 09:03 08/31/22 09:03 Labs: Abnormal Lab Results - Last 24 Hours (Table) 08/30/22 08/30/22 08/30/22 Range/Units 17:12 18:33 21:03 Sodium (137-145) mmol/L Chloride (98-107) mmol/L Carbon Dioxide (22-30) mmol/L Glucose (74-99) mg/dL POC Glucose (mg/dL) 124 H 141 H (70-110) mg/dL Calcium (8.4-10.2) mg/dL Urine Appearance Cloudy H (Clear) Urine Protein 1+ H (Negative) Urine Ketones Trace H (Negative) Urine Blood Moderate H (Negative) Ur Leukocyte Esterase Large H (Negative) Urine RBC 45 H (0-5) /hpf Urine Bacteria Rare H (None) /hpf Urine Mucus Rare H (None) /hpf 08/31/22 Range/Units 09:03 Sodium 134 L (137-145) mmol/L Chloride 108 H (98-107) mmol/L Carbon Dioxide 18 L (22-30) mmol/L Glucose 156 H (74-99) mg/dL POC Glucose (mg/dL) (70-110) mg/dL Calcium 8.0 L (8.4-10.2) mg/dL Urine Appearance (Clear) Urine Protein (Negative) Urine Ketones (Negative) Urine Blood (Negative) Ur Leukocyte Esterase (Negative) Urine RBC (0-5) /hpf Urine Bacteria (None) /hpf Urine Mucus (None) /hpf Microbiology - Last 24 Hours (Table) 08/28/22 15:29 Blood Culture - Preliminary Blood 08/28/22 15:25 Blood Culture - Preliminary Blood 08/29/22 13:57 Gram Stain - Preliminary Leg - Right Wound Culture - Preliminary Assessment and Plan (1) Abscess of right groin Current Visit: Yes Status: Acute Code(s): L02.214 - CUTANEOUS ABSCESS OF GROIN SNOMED Code(s): 07058848 (2) Postoperative infection Current Visit: Yes Status: Acute Code(s): T81.40XA - INFECTION FOLLOWING A PROCEDURE, UNSPECIFIED, INIT SNOMED Code(s): 44237554 Plan: 1patient with the recent vascular procedure to the right lower extremity not present to the hospital with the right groin wound foul-smelling drainage concerning for wound infection we will need to call for the gram-positive as well as gram-negative pathogen. CT was negative for any residual abscess to the right groin 2patient with a penicillin ALLERGY long time ago however subsequently patient's taken amoxicillin clinically doubt true penicillin allergy 3patient seemed to have some clinical improvement and will continue with the cefepime and vancomycin while waiting for the culture to finalize to determine her discharge antibiotics, local care to continue as ordered Time with Patient: Less than 30
[2022-09-01 07:52] LABS: Glucose,Whole Blood 105 mg/dL (70-110)
[2022-09-01] MEDS: INSULIN ASPART (NovoLOG) 100 UNIT/ML VIAL SQ SCH ×4 (08:11→20:50)
[2022-09-01] MEDS: GABAPENTIN 300 MG CAP PO SCH ×3 (09:14→21:36)
[2022-09-01] MEDS: PANTOPRAZOLE 40 MG TABLET PO SCH (09:14)
[2022-09-01] MEDS: levETIRAcetam 500 MG TAB PO SCH ×2 (09:14→20:49)
[2022-09-01] MEDS: ASPIRIN 81 MG PO SCH (09:14)
[2022-09-01] MEDS: HEPARIN SODIUM,PORCINE/PF 5,000 UNIT/0.5 ML SYRINGE SQ SCH ×2 (09:14→20:49)
[2022-09-01] MEDS: CLOPIDOGREL 75 MG TAB PO SCH (09:14)
[2022-09-01] MEDS: FLUoxetine HCL 20 MG CAP PO SCH (09:14)
[2022-09-01] MEDS: MORPHINE SULFATE 2 MG/ML SYRINGE IVP PRN (09:21)
--- NOTE | 2022-09-01 10:35 | P.PN ---
Subjective Progress Note Date: 09/01/22 Principal diagnosis: Postop wound Patient seen and examined today as follow-up. States she is having pain in her right lower extremity and foot. No change from yesterday. Venous duplex ordered and reviewed, no evidence for right lower extremity DVT. Arterial ultrasound completed yesterday right lower extremity evaluating bypass which reports no flow visualized in vessels imaged. Imaged bypass graft does not appear to be patent. Patient denies any fever, chills, body aches. She remains on IV antibiotics. Objective - Vital Signs Vital signs: Vital Signs Temp 97.6 F 09/01/22 07:09 Pulse 70 09/01/22 07:09 Resp 16 09/01/22 07:09 BP 110/69 09/01/22 07:09 Pulse Ox 91 L 09/01/22 07:09 FiO2 Intake & Output 08/31/22 09/01/22 09/01/22 18:59 06:59 18:59 Intake Total 342 Balance 342 Intake: Oral 342 Other: Voiding Method Bedside Commode Bedside Commode # Voids 1 2 1 # Bowel Movements 1 - Exam General appearance: The patient is alert, oriented, appears in no acute distress. HET: Head is normocephalic and atraumatic. Neck: Supple. Abdomen: Soft, nontender, nondistended. Extremities: Right groin with dressing clean dry and intact. Right thigh edema. Right foot warm to the touch, dorsal aspect and toes with some purple discoloration and cool to touch. Patient states that is chronic. Calf tenderness. Popliteal and PT doppler signal present. Nonpalpable pulse over bypass. Sensorimotor intact. Neurological: No focal deficits. - Labs CBC & Chem 7: 08/31/22 09:03 08/31/22 09:03 Labs: Abnormal Lab Results - Last 24 Hours (Table) 08/31/22 08/31/22 Range/Units 09:03 17:14 RBC 3.21 L (4.10-5.20) X 10*6/uL Hgb 9.6 L (12.0-15.0) g/dL Hct 31.9 L (37.2-46.3) % MCV 99.4 H (80.0-97.0) fL MCHC 30.1 L (32.0-37.0) g/dL RDW 14.8 H (11.5-14.5) % POC Glucose (mg/dL) 112 H (70-110) mg/dL Microbiology - Last 24 Hours (Table) 08/29/22 13:57 Anaerobic Culture - Preliminary Leg - Right 08/29/22 13:57 Gram Stain - Final Leg - Right Wound Culture - Final 08/28/22 15:29 Blood Culture - Preliminary Blood 08/28/22 15:25 Blood Culture - Preliminary Blood Assessment and Plan Assessment: 1. Postoperative wound infection. 2. Status post right femoral to anterior tibial bypass graft utilizing cryopreserved vein with occlusion. 3. Right lower extremity rest pain 4. Duncan 4 severe peripheral arterial disease Plan: 1. Continue local wound care with iodoform packing, daily 2. Continue with antibiotic recommendations from infectious disease 3. Encourage ambulation as tolerated 4. Right lower extremity arterial ultrasound and venous duplex ordered and reviewed. Negative for DVT, appears right lower extremity bypass occluded 5. Patient to follow-up with Dr. Espinal next week 09/09/2022 to discuss further intervention/surgical options. Patient will likely need right [id number] amputation. 6. Wound culture shows gram-negative bacilli, await recommendations from infectious disease on antibiotic for discharge. Thank you for this consultation, we'll continue to follow. The impression and plan of care has been dictated as directed. I performed a history and examination of this patient, discussed the same with the dictator. I agree with the dictator's note ,documented as a scribe. Any additional findings or plans will be noted.
[2022-09-01 11:45] LABS: Glucose,Whole Blood 111 mg/dL (70-110)
[2022-09-01 12:37] LABS: Glucose,Whole Blood 150 mg/dL (70-110)
[2022-09-01] MEDS ORDERED: CEPHALEXIN 500 MG CAP PO SCH (13:00)
[2022-09-01] MEDS: COLLAGENASE 250 UNIT/GM OINTMENT 30 GM TUBE TOPICAL SCH (13:29)
[2022-09-01] MEDS: CEFDINIR 300 MG CAP PO SCH ×2 (13:29→21:36)
[2022-09-01 14:19] LABS: Basophils # (A) 0.05 X 10*3/uL (0.00-0.10); Basophils % (A) 0.8 %; Eosinophils % (A) 3.2 %; HCT 32.5 % (37.2-46.3); HGB 9.9 g/dL (12.0-15.0); Immature Grans, Automated 0.5 %; Lymphocytes # (A) 2.17 X 10*3/uL (0.90-5.00); Lymphocytes % (A) 34.5 %; MCH 30.1 pg (27.0-32.0); MCHC 30.5 g/dL (32.0-37.0); MCV 98.8 fL (80.0-97.0); Mean Platelet Volume 10.3 fL (9.5-12.2); Monocytes # (A) 0.51 X 10*3/uL (0.20-1.00); Monocytes % (A) 8.1 %; NRBC Per 100 WBC 0 /100 WBCS (0.0-0.0); Neutrophils # (A) 3.33 X 10*3/uL (1.80-7.70); Neutrophils % (A) 52.9 %; Platelet Count 327 X 10*3/uL (140-440); RBC 3.29 X 10*6/uL (4.10-5.20); RDW 14.8 % (11.5-14.5); WBC 6.29 X 10*3/uL (4.50-10.00)
[2022-09-01 14:42] LABS: African American GFR (CKD) 66.4 (60.0-200.0); Anion Gap 11.1 mmol/L (10.00-18.00); BUN/Creat Ratio 14.1 Ratio (12.00-20.00); Blood Urea Nitrogen 13.8 mg/dL (9.0-27.0); Calcium 8.6 mg/dL (8.7-10.3); Carbon Dioxide 20.3 mmol/L (20.0-27.5); Non-African American GFR(CKD) 57.3 (60.0-200.0); Potassium 4.3 mmol/L (3.5-5.5)
[2022-09-01 15:21] LABS: INR 0.95 (0.90-1.11); Prothrombin Time 10.8 sec (9.9-11.9)
[2022-09-01] MEDS: metroNIDAZOLE 500 MG TAB PO SCH ×2 (15:22→21:36)
--- NOTE | 2022-09-01 16:24 | P.PN ---
Subjective Progress Note Date: 09/01/22 This is a pleasant 72 year old female with medical history of COPD, CVA/TIA, diabetes mellitus, hyperlipidemia, sleep apnea, peripheral vascular disease, anal cancer with chemo and radiation. Patient presents to the hospital with concern for drainage and redness of the right groin surgical site. Patient was recently hospitalized and underwent right femoral to anterior tibial bypass secondary to severe peripheral artery disease and critical limb ischemia. Patient was discharged home. The day after discharge patient had a mechanical fall off the toilet and was pinned between the wall and toilet for about an hour. She was evaluated in the ER and had the wound vac in place post fall. Patient states that about 3 to 4 days after discharge there was malodorous discharge from the right groin site and was seen in the office by vascular surgery. Patient states the drainage is now purulent and increasing in quantity the groin site is red and tender. Reports feeling feverish at home and nauseas the last 24 hours. Patient continues to report neuropathic pain to the right foot feels like intermittent sharp jabs, has been started on gabapentin for this. Initial work up reveals no elevated white count, no fever, hemoglobin of 10. Patient is admitted to the hospital and has been started on IV antibiotic therapy with groin and blood cultures pending. Vascular surgery and infectious disease are consulted. Patient will have CT scan taken of the right groin to rule out underlying abscess. The wound has been packed with gauze by vascular surgery. 08/30/2022 Patient is evaluated on medical floor. More lethargic than yesterday. Wound has been changed and repacked with iodoform. CT taken not showing an underlying abscess, right inguinal wound size of 4.9 x 2.0 x 6.[address] imaging. Cultures are pending there are moderate gram negative bacilli and few gram positive cocci. Blood culture is negative so far. Patient has been hydrated overnight with normal saline. Developing low grade fever 99.1, 99.7. Blood pressure in the high 90s to low 100s systolic. Has been placed on oxygen at 2L n dasia cannula as pulse oximeter found to be 70% on room air. Patient remains on IV vancomycin and IV cefepime. Vascular surgery and infectious disease are following. 08/31/2022 Patient seen and evaluated in follow-up this morning with vascular surgery and infectious disease following. Patient is maintained on IV cefepime along with vancomycin while waiting for cultures to finalize. Preliminary showing moderate gram-negative bacilli with a few gram-positive cocci. Vascular surgery following an patient underwent venous Doppler of the right lower extremity as patient is reporting some swelling and although exam is limited there is no obvious deep vein thrombosis and vascular surgery has ordered an arterial Doppler of the right. Patient also noted to have some small left pleural effusion on the chest x-ray from yesterday evening and patient was maintained on IV fluids and will discontinue. Patient has been afebrile today. Blood pressures on the lower side recommend continue monitoring closely. Encouraged increase activity as tolerated. Patient currently on subcutaneous heparin and will continue along with her aspirin and Plavix. Patient is currently afebrile denies chest pain or shortness of breath report some generalized weakness and again difficulty with ambulation due to the swelling and some pain of the right lower extremity. 09/01/2022 Patient is evaluated sitting up at bedside today. vascular and ID following closely. Continues with local wound care to the right groin wound with serous drainage. Patient had ultrasound of the graft done and graft does not appear to be patent. Vascular has recommending a right above the knee amputation. Patient has a follow up with vascular on the outpatient for further discussion. Patient has been transitioned to oral antibiotics and will monitor overnight and likely can be discharged home tomorrow. Patient has been taken off the oxygen and currently maintaining oxygen saturation on room air. Review of Systems Constitutional: Reports fatigue, Denies fever Cardio vascular: denied any chest pain, palpitations Gastrointestinal: denied any nausea, vomiting, diarrhea Pulmonary: Denied any shortness of breath cough Neurologic denied any new focal deficits All inpatient medications were reviewed and appropriate changes in these medications as dictated in the interval history and assessment and plan. PHYSICAL EXAMINATION: GENERAL: The patient is alert and oriented x3, not in any acute distress. Well developed, well nourished. HEENT: Pupils are round and equally reacting to light. EOMI. No scleral icterus. No conjunctival pallor. Normocephalic, atraumatic. No pharyngeal erythema. No thyromegaly. CARDIOVASCULAR: S1 and S2 present. No murmurs, rubs, or gallops. PULMONARY: Chest is clear to auscultation, no wheezing or crackles. ABDOMEN: Soft, nontender, nondistended, normoactive bowel sounds. No palpable organomegaly. MUSCULOSKELETAL: No joint swelling or deformity. EXTREMITIES: Wound to the right groin is packed with gauze and is dry and intact NEUROLOGICAL: Gross neurological examination did not reveal any focal deficits. Generalized weakness. SKIN: No rashes. Assessment: Right inguinal surgical wound infection with sepsis present on admission cultures showing moderate gram neg. bacilli. Status post right femoral to anterior tibial artery bypass secondary to critical limb ischemia with U/S this admission showing occluded graft. Peripheral artery disease Peripheral neuropathy Diabetes Mellitus type 2 Hyperlipidemia Hx of brain/AAA aneurysm History of COPD with no acute exacerbation History or CVA/TIA Hx of anal cancer with chemo and radiation Anxiety/Depression Former Smoker GI Prophylaxis DVT Prophylaxis Full Code Plan: Preliminary culture showing gram-negative bacilli and patient has been transitioned to oral antibiotics Continue local wound care to the right groin Patient has been weaned to room air recommend to continue with incentive spirometer 10 x an hr, patient is increasing activity as tolerated up in the chair, PT/OT evaluation recommending DC home on discharge Vascular surgery to follow up with patient in the office on 09/09/22 to discuss possible right AKA. Continue with pain management and supportive care Patient will be monitored overnight on oral antibiotics with plans to DC home tomorrow. The impression and plan of care has been dictated by Margarita Lyons Nurse Practitioner as directed. Dr. Cathi MD I have performed a history and physical examination and medical decision making of this patient, discussed the same with the dictator, and agree with the dictators assessment and plan as written, documented as a scribe. Based on total visit time, I have performed more than 50% of this visit. Objective - Vital Signs Vital signs: Vital Signs Temp 97.3 F L 09/01/22 11:39 Pulse 68 09/01/22 11:39 Resp 16 09/01/22 11:39 BP 139/73 09/01/22 11:39 Pulse Ox 96 09/01/22 11:39 FiO2 Intake & Output 08/31/22 09/01/22 09/01/22 18:59 06:59 18:59 Intake Total 342 Balance 342 Intake: Oral 342 Other: Voiding Method Bedside Commode Bedside Commode Bedside Commode # Voids 1 2 1 # Bowel Movements 1 - Labs CBC & Chem 7: 09/01/22 05:56 09/01/22 05:56 Labs: Abnormal Lab Results - Last 24 Hours (Table) 08/31/22 08/31/22 08/31/22 Range/Units 09:03 17:14 20:07 RBC 3.21 L (4.10-5.20) X 10*6/uL Hgb 9.6 L (12.0-15.0) g/dL Hct 31.9 L (37.2-46.3) % MCV 99.4 H (80.0-97.0) fL MCHC 30.1 L (32.0-37.0) g/dL RDW 14.8 H (11.5-14.5) % Est GFR (CKD-EPI)NonAf (60.0-200.0) POC Glucose (mg/dL) 112 H 150 H (70-110) mg/dL Calcium (8.7-10.3) mg/dL 09/01/22 09/01/22 09/01/22 Range/Units 05:56 05:56 11:42 RBC 3.29 L (4.10-5.20) X 10*6/uL Hgb 9.9 L (12.0-15.0) g/dL Hct 32.5 L (37.2-46.3) % MCV 98.8 H (80.0-97.0) fL MCHC 30.5 L (32.0-37.0) g/dL RDW 14.8 H (11.5-14.5) % Est GFR (CKD-EPI)NonAf 57.3 L (60.0-200.0) POC Glucose (mg/dL) 111 H (70-110) mg/dL Calcium 8.6 L (8.7-10.3) mg/dL Microbiology - Last 24 Hours (Table) 08/28/22 15:29 Blood Culture - Preliminary Blood 08/28/22 15:25 Blood Culture - Preliminary Blood 08/29/22 13:57 Anaerobic Culture - Preliminary Leg - Right 08/29/22 13:57 Gram Stain - Final Leg - Right Wound Culture - Final Assessment and Plan Time with Patient: Less than 30
[2022-09-01 17:13] LABS: Glucose,Whole Blood 90 mg/dL (70-110)
[2022-09-01 20:43] LABS: Glucose,Whole Blood 107 mg/dL (70-110)
[2022-09-01] MEDS: traZODone HCL 50 MG TAB PO SCH (20:49)
[2022-09-02] MEDS: LEVOTHYROXINE 25 MCG TAB PO SCH (05:27)
[2022-09-02 07:16] LABS: Glucose,Whole Blood 102 mg/dL (70-110)
[2022-09-02] MEDS: INSULIN ASPART (NovoLOG) 100 UNIT/ML VIAL SQ SCH ×2 (07:24→11:24)
[2022-09-02 07:37] VITALS: RESP 16
[2022-09-02] MEDS: PANTOPRAZOLE 40 MG TABLET PO SCH (09:01)
[2022-09-02] MEDS: ASPIRIN 81 MG PO SCH (09:01)
[2022-09-02] MEDS: CLOPIDOGREL 75 MG TAB PO SCH (09:01)
[2022-09-02] MEDS: CEFDINIR 300 MG CAP PO SCH (09:01)
[2022-09-02] MEDS: COLLAGENASE 250 UNIT/GM OINTMENT 30 GM TUBE TOPICAL SCH (09:02)
[2022-09-02] MEDS: HEPARIN SODIUM,PORCINE/PF 5,000 UNIT/0.5 ML SYRINGE SQ SCH (09:02)
[2022-09-02] MEDS: metroNIDAZOLE 500 MG TAB PO SCH ×2 (09:02→16:43)
[2022-09-02] MEDS: FLUoxetine HCL 20 MG CAP PO SCH (09:02)
[2022-09-02] MEDS: GABAPENTIN 300 MG CAP PO SCH ×2 (09:02→16:43)
[2022-09-02] MEDS: levETIRAcetam 500 MG TAB PO SCH (09:02)
[2022-09-02] MEDS: HYDROcodone/APAP 7.5-325MG 1 EACH TAB PO PRN ×2 (09:37→16:45)
--- NOTE | 2022-09-02 09:52 | P.PN ---
Subjective Progress Note Date: 09/02/22 Principal diagnosis: Postop wound Patient seen and examined lying in bed. No acute changes through the night. Infectious disease transition patient to oral antibiotic and plan is for discharge home today. Pain and right lower extremity about the same. No fevers or chills. Objective - Vital Signs Vital signs: Vital Signs Temp 98.7 F 09/02/22 07:17 Pulse 67 09/02/22 07:17 Resp 16 09/02/22 07:17 BP 118/67 09/02/22 07:17 Pulse Ox 93 L 09/02/22 07:17 FiO2 Intake & Output 09/01/22 09/02/22 09/02/22 18:59 06:59 18:59 Intake Total 600 Balance 600 Intake: Oral 600 Other: Voiding Method Bedside Commode Bedside Commode Diaper # Voids 1 2 # Bowel Movements 1 - Exam General appearance: The patient is alert, oriented, appears in no acute distress. HET: Head is normocephalic and atraumatic. Neck: Supple. Abdomen: Soft, nontender, nondistended. Extremities: Right groin with dressing clean dry and intact. Right thigh edema. Right foot warm to the touch, dorsal aspect and toes with some purple discoloration and cool to touch. Patient states that is chronic. Calf tenderness. Popliteal and PT doppler signal present. Nonpalpable pulse over bypass. Sensorimotor intact. Neurological: No focal deficits. - Labs CBC & Chem 7: 09/01/22 05:56 09/02/22 06:25 Labs: Abnormal Lab Results - Last 24 Hours (Table) 08/31/22 09/01/22 09/01/22 Range/Units 20:07 05:56 05:56 RBC 3.29 L (4.10-5.20) X 10*6/uL Hgb 9.9 L (12.0-15.0) g/dL Hct 32.5 L (37.2-46.3) % MCV 98.8 H (80.0-97.0) fL MCHC 30.5 L (32.0-37.0) g/dL RDW 14.8 H (11.5-14.5) % Est GFR (CKD-EPI)NonAf 57.3 L (60.0-200.0) POC Glucose (mg/dL) 150 H (70-110) mg/dL Calcium 8.6 L (8.7-10.3) mg/dL 09/01/22 Range/Units 11:42 RBC (4.10-5.20) X 10*6/uL Hgb (12.0-15.0) g/dL Hct (37.2-46.3) % MCV (80.0-97.0) fL MCHC (32.0-37.0) g/dL RDW (11.5-14.5) % Est GFR (CKD-EPI)NonAf (60.0-200.0) POC Glucose (mg/dL) 111 H (70-110) mg/dL Calcium (8.7-10.3) mg/dL Microbiology - Last 24 Hours (Table) 08/28/22 15:29 Blood Culture - Preliminary Blood 08/28/22 15:25 Blood Culture - Preliminary Blood Assessment and Plan Assessment: 1. Postoperative wound infection. 2. Status post right femoral to anterior tibial bypass graft utilizing cryopreserved vein with occlusion. 3. Right lower extremity rest pain 4. Duncan 4 severe peripheral arterial disease Plan: 1. Continue local wound care with iodoform packing, daily 2. Continue with antibiotic recommendations from infectious disease 3. Encourage ambulation as tolerated 4. Right lower extremity arterial ultrasound and venous duplex ordered and reviewed. Negative for DVT, appears right lower extremity bypass occluded 5. Patient to follow-up with Dr. Espinal next week 09/09/2022 to discuss further intervention/surgical options. Patient will likely need right [id number] amputation. Thank you for this consultation, we'll continue to follow. The impression and plan of care has been dictated as directed. Dr. Brothers I performed a history and examination of this patient, discussed the same with the dictator. I agree with the dictator's note ,documented as a scribe. Any additional findings or plans will be noted.
[2022-09-02 11:12] LABS: Glucose,Whole Blood 109 mg/dL (70-110)
[2022-09-02 13:28] VITALS: BP 111/48; PULSE 57; TEMP 98.3
[2022-09-02 17:14] LABS: Glucose,Whole Blood 84 mg/dL (70-110)
--- NOTE | 2022-09-02 23:05 | P.DS ---
Providers Date of admission: 08/28/22 18:44 Attending physician: Jw Collier Consults: 08/28/22 18:44 Consult Physician Routine Consulting Provider: Rajeev Brothers Consult Reason/Comments: postOp Do you want consulting provider notified?: Yes 08/29/22 11:17 Consult Physician Routine Consulting Provider: Joseline Givens Consult Reason/Comments: right groin wound and cellulitis Do you want consulting provider notified?: Yes Primary care physician: Pramod Reagan Hospital Course: Final Diagnosis Right inguinal surgical wound infection with sepsis present on admission cultures showing moderate gram neg. bacilli. Status post right femoral to anterior tibial artery bypass secondary to critical limb ischemia with U/S this admission showing occluded graft. Peripheral artery disease Peripheral neuropathy Diabetes Mellitus type 2 Hyperlipidemia Hx of brain/AAA aneurysm History of COPD with no acute exacerbation History or CVA/TIA Hx of anal cancer with chemo and radiation Anxiety/Depression Former Smoker Discharge Disposition Patient is stable for discharge. Recommending to continue on dual antiplatelet therapy. Patient has a follow up with Dr. Espinal on September 09 to further discuss the occluded graft and patient has been recommending for right above the knee amputation. Patient would like a second opinion prior to undergoing the right AKA. Patient is discharge on combination for oral cefdinir and oral flagyl for 10 days to complete course of antibiotic therapy as recommended by infectious disease. Recommend to repeat labs in 2 to 3 days. Patient has home care services on discharge to perform local wound care to the right groin, with iodoform strip gauze which the wound is packed. Patient has a gauze overlay which can be changed daily or as needed if saturated. Hospital Course This is a pleasant 72 year old female with medical history of COPD, CVA/TIA, diabetes mellitus, hyperlipidemia, sleep apnea, peripheral vascular disease, anal cancer with chemo and radiation. Patient presents to the hospital with concern for drainage and redness of the right groin surgical site. Patient was recently hospitalized and underwent right femoral to anterior tibial bypass secondary to severe peripheral artery disease and critical limb ischemia. Patient was discharged home. The day after discharge patient had a mechanical fall off the toilet and was pinned between the wall and toilet for about an hour. She was evaluated in the ER and had the wound vac in place post fall. Patient states that about 3 to 4 days after discharge there was malodorous discharge from the right groin site and was seen in the office by vascular surgery. Patient states the drainage is now purulent and increasing in quantity the groin site is red and tender. Reports feeling feverish at home and nauseas the last 24 hours. Patient continues to report neuropathic pain to the right foot feels like intermittent sharp jabs, has been started on gabapentin for this. Initial work up reveals no elevated white count, no fever, hemoglobin of 10. Patient is admitted to the hospital and has been started on IV antibiotic therapy with groin and blood cultures pending. Vascular surgery and infectious disease are consulted. Patient had CT scan taken of the right groin not showing an underlying abscess, right inguinal wound size of 4.9 x 2.0 x 6.[address] imaging. Cultures are pending there are moderate gram negative bacilli and few gram positive cocci. Blood culture is negative so far. The wound has been packed with iodoform gauze by vascular surgery. patient underwent venous Doppler of the right lower extremity as patient is reporting some swelling and although exam is limited there is no obvious deep vein thrombosis and vascular surgery has ordered an arterial Doppler of the right. Patient also noted to have some small left pleural effusion on the chest x-ray that was performed as patient had been placed on oxygen support with hypoxia 88-89% on room air. IV fluids were stopped and patient was able to weaned from the nasal cannula back to room air. Patient had ultrasound of the graft done and graft does not appear to be patent. Vascular has recommending a right above the knee amputation. Patient has a follow up with vascular on the outpatient for further discussion. Patient has been transitioned to oral antibiotics as recommended by infectious disease. White count has remained in normal limits, hemoglobin stable at 9.9. Kidney function remains normal. Patient has remained afebrile with exception of one 99.7 temp. Heart rate in the 60s, blood pressure 111/48 and on room air. Denying shortness of breath and no chest pain noted. Nausea has resolved no diarrhea or vomiting. Lungs are clear. Patient will be discharged home with the above mentioned recommendations. Please see medication reconciliation for a list of current medication. Thank you for allowing us to participate in the care of this patient. The impression and plan of care has been dictated by Margarita Lyons, Nurse Practitioner as directed. Dr. Cathi MD I have performed a history and physical examination and medical decision making of this patient, discussed the same with the dictator, and agree with the dictators assessment and plan as written, documented as a scribe. Based on total visit time, I have performed more than 50% of this visit. Patient Condition at Discharge: Stable Plan - Discharge Summary New Discharge Prescriptions: New metroNIDAZOLE [Flagyl] 500 mg PO TID 10 Days #30 tab Cefdinir [Omnicef] 300 mg PO BID 10 Days #20 cap Pantoprazole [Protonix] 40 mg PO AC-BRKFST #30 tab Collagenase [Santyl Ointment] 1 applic TOPICAL DAILY #1 each Nystatin 100,000 Unit/ml Susp [Mycostatin Oral Susp] 5 ml PO QID #140 ml Continue Clopidogrel [Plavix] 75 mg PO DAILY Levothyroxine Sodium [Synthroid] 25 mcg PO DAILY Gabapentin [Neurontin] 300 mg PO TID Acetaminophen Tab [Tylenol] 1,000 mg PO Q6H PRN PRN Reason: Fever And/ Or Pain traZODone HCL 150 mg PO HS FLUoxetine HCL [PROzac] 40 mg PO DAILY levETIRAcetam [Keppra] 500 mg PO BID Aspirin 81 mg PO DAILY #30 tab HYDROcodone/APAP 7.5-325MG [[place] 7.5-325] 1 tab PO Q4H PRN 7 Days #42 tab PRN Reason: Pain Discharge Medication List Clopidogrel [Plavix] 75 mg PO DAILY 08/15/16 [History] Levothyroxine Sodium [Synthroid] 25 mcg PO DAILY 08/15/16 [History] FLUoxetine HCL [PROzac] 40 mg PO DAILY 07/25/20 [History] levETIRAcetam [Keppra] 500 mg PO BID 07/25/20 [History] Gabapentin [Neurontin] 300 mg PO TID 08/03/22 [History] Aspirin 81 mg PO DAILY #30 tab 08/10/22 [Rx] Acetaminophen Tab [Tylenol] 1,000 mg PO Q6H PRN 08/28/22 [History] traZODone HCL 150 mg PO HS 08/28/22 [History] Cefdinir [Omnicef] 300 mg PO BID 10 Days #20 cap 09/02/22 [Rx] Collagenase [Santyl Ointment] 1 applic TOPICAL DAILY #1 each 09/02/22 [Rx] HYDROcodone/APAP 7.5-325MG [[place] 7.5-325] 1 tab PO Q4H PRN 7 Days #42 tab 09/02/22 [Rx] Nystatin 100,000 Unit/ml Susp [Mycostatin Oral Susp] 5 ml PO QID #140 ml 09/02/22 [Rx] Pantoprazole [Protonix] 40 mg PO AC-BRKFST #30 tab 09/02/22 [Rx] metroNIDAZOLE [Flagyl] 500 mg PO TID 10 Days #30 tab 09/02/22 [Rx] Follow up Appointment(s)/Referral(s): Pramod Reagan III, MD [Primary Care Provider] - 1-2 days (Please call and schedule follow up appointment.) Vonda Espinal DO [STAFF PHYSICIAN] - 09/09/22 1:45 pm [facility] [NON-STAFF] - 1 Week Joseline Givens MD [STAFF PHYSICIAN] - 09/21/22 2:45 pm Patient Instructions/Handouts: Dehydration (DC), Weakness (DC) Activity/Diet/Wound Care/Special Instructions: Daily dressing change to right groin wound with iodoform strip gauze change out gauze overlying daily and as needed if becomes saturated Follow up with infectious disease, vascular, surgery and primary care on discharge Discharge Disposition: HOME WITH HOME HEALTH SERVICES
--- NOTE | 2022-09-04 12:36 | CDI ---
Documentation Clarification Form Date: 09/04/2022 12:20:01 PM From: Marsha Wilder Admit Date: 08/28/2022 6:44:00 PM Patient Name: Alexia Rubin Visit Number: [id number] Discharge Date: 09/02/2022 5:56:00 PM ATTENTION: The Clinical Documentation Specialists (CDI) and [facility] Coding Staff appreciate your assistance in clarifying documentation. Please respond to the clarification below the line at the bottom and electronically sign. The CDI & [facility] Coding staff will review the response and follow-up if needed. Please note: Queries are made part of the Legal Health Record. If you have any questions, please contact the author of this message via ITS. Dr. Lise Winkler Your patient has documentation of small pleural effusions on the chest x-ray with hypoxia 88-89% placed on oxygen support in the Discharge Summary 09/02. Based on this information and the findings below, is there an additional diagnosis that is clinically appropriate for this patient? History/Risk Factors: 72 year old female with a history of diabetes, AAA, and brain aneurysm, COPD, HLD, anal cancer s/p chemo and radiation, and severe PAD/PVD. Tobacco use: hx of nicotine dependence Clinical Indicators: patient has drainage and redness of the right groin surgical site. Recently had a right femoral to anterior tibial bypass secondary to severe PAD. Found to have sepsis and surgical site infection. Progress note 08/30: placed on oxygen at 2L nasal cannula, pulse ox found to be 70% on room air. Discharge Summary 09/02: patient noted to have some small left pleural effusions on the chest x-ray that was performed as patient has been placed on oxygen support with hypoxia 88-89% on room air Treatment: placed on 2L nc, is on IV vancomycin and IV vefepime, given a small does of lasix O2: 2L NC Is there an additional diagnosis that is clinically appropriate for this patient? [x ] Acute Hypoxic Respiratory Failure (pO2 <60 mm Hg or SpO2 <91% on room air) [ ] Acute Respiratory Insufficiency [ ] Hypoxia [ ] Other Diagnosis, please specify [ ] Unable to determine MTDD
--- NOTE | 2022-09-09 13:58 | P.PN ---
Subjective Progress Note Date: 09/01/22 Principal diagnosis: Right groin wound infection Patient is a 72 -year-old female with a past medical insignificant for COPD CVA TIA diabetes mellitus hyperlipidemia peripheral vascular disease history of anal cancer status post chemoradiation therapy, patient recently underwent right femoral to anterior tibial bypass for her severe peripheral arterial disease/critical limb ischemia, patient presented to the hospital with increasing drainage and pain to the groin area concerning for infected wound CT was negative for any abscess On today's evaluation and that is 09/01/2022, patient a remains to be febrile, the patient pain to the right groin has decreased intensity, patient denies having any chest pain shortness of breath or cough no nausea no vomiting no ab dominal pain or diarrhea, no new symptoms Objective - Vital Signs Vital signs: Vital Signs Temp 98.3 F 09/01/22 13:05 Pulse 57 L 09/01/22 13:05 Resp 16 09/01/22 13:05 BP 111/48 09/01/22 13:05 Pulse Ox 96 09/01/22 13:05 FiO2 - Exam GENERAL DESCRIPTION: An elderly female lying in bed in no distress RESPIRATORY SYSTEM: Unlabored breathing , decreased breath sounds at bases HEART: S1 S2 regular rate and rhythm , ABDOMEN: Soft , no tenderness EXTREMITIES: Right groin wound is currently dressed, No edema feet - Labs CBC & Chem 7: 09/01/22 05:56 09/02/22 06:25 Assessment and Plan (1) Abscess of right groin Status: Acute Code(s): L02.214 - CUTANEOUS ABSCESS OF GROIN SNOMED Code(s): 25011204 (2) Postoperative infection Status: Acute Code(s): T81.40XA - INFECTION FOLLOWING A PROCEDURE, UNSPECIFIED, INIT SNOMED Code(s): 64512693 Plan: 1patient with the recent vascular procedure to the right lower extremity not present to the hospital with the right groin wound foul-smelling drainage concerning for wound infection we will need to call for the gram-positive as well as gram-negative pathogen. CT was negative for any residual abscess to the right groin 2patient with a penicillin ALLERGY long time ago however subsequently patient's taken amoxicillin clinically doubt true penicillin allergy 3patient culture so far negative however the Gram stain did show some gram- negative bacilli which never grew, we will switch her over to oral Ceftin and the patient continued to improve with able to finish therapy with oral Ceftin and close outpatient follow-up Time with Patient: Less than 30
--- NOTE | 2022-09-09 14:00 | P.PN ---
Subjective Progress Note Date: 09/02/22 Principal diagnosis: Right groin wound infection Patient is a 72 -year-old female with a past medical insignificant for COPD CVA TIA diabetes mellitus hyperlipidemia peripheral vascular disease history of anal cancer status post chemoradiation therapy, patient recently underwent right femoral to anterior tibial bypass for her severe peripheral arterial disease/critical limb ischemia, patient presented to the hospital with increasing drainage and pain to the groin area concerning for infected wound CT was negative for any abscess On today's evaluation and that is 09/02/2022, patient is afebrile, the patient pain to the right groin has decreased in intensity, patient denies chest pain shortness of breath or cough no nausea no vomiting no abdominal pain or dean rrhea, patient is feeling better wants to go home Objective - Vital Signs Vital signs: Vital Signs Temp 98.7 F 09/02/22 07:17 Pulse 67 09/02/22 07:17 Resp 16 09/02/22 07:17 BP 118/67 09/02/22 07:17 Pulse Ox 93 L 09/02/22 07:17 FiO2 Intake & Output 09/01/22 09/02/22 09/02/22 18:59 06:59 18:59 Intake Total 600 Balance 600 Intake: Oral 600 Other: Voiding Method Bedside Commode Bedside Commode Diaper # Voids 1 2 1 # Bowel Movements 1 1 - Exam GENERAL DESCRIPTION: An elderly female lying in bed in no distress RESPIRATORY SYSTEM: Unlabored breathing , decreased breath sounds at bases HEART: S1 S2 regular rate and rhythm , ABDOMEN: Soft , no tenderness EXTREMITIES: Right groin wound overall drainage has decreased - Labs CBC & Chem 7: 09/01/22 05:56 09/02/22 06:25 Labs: Abnormal Lab Results - Last 24 Hours (Table) 08/31/22 09/01/22 09/01/22 Range/Units 20:07 05:56 05:56 RBC 3.29 L (4.10-5.20) X 10*6/uL Hgb 9.9 L (12.0-15.0) g/dL Hct 32.5 L (37.2-46.3) % MCV 98.8 H (80.0-97.0) fL MCHC 30.5 L (32.0-37.0) g/dL RDW 14.8 H (11.5-14.5) % Est GFR (CKD-EPI)NonAf 57.3 L (60.0-200.0) POC Glucose (mg/dL) 150 H (70-110) mg/dL Calcium 8.6 L (8.7-10.3) mg/dL 09/01/22 Range/Units 11:42 RBC (4.10-5.20) X 10*6/uL Hgb (12.0-15.0) g/dL Hct (37.2-46.3) % MCV (80.0-97.0) fL MCHC (32.0-37.0) g/dL RDW (11.5-14.5) % Est GFR (CKD-EPI)NonAf (60.0-200.0) POC Glucose (mg/dL) 111 H (70-110) mg/dL Calcium (8.7-10.3) mg/dL Microbiology - Last 24 Hours (Table) 08/28/22 15:29 Blood Culture - Preliminary Blood 08/28/22 15:25 Blood Culture - Preliminary Blood Assessment and Plan (1) Abscess of right groin Status: Acute Code(s): L02.214 - CUTANEOUS ABSCESS OF GROIN SNOMED Code(s): 62443173 (2) Postoperative infection Status: Acute Code(s): T81.40XA - INFECTION FOLLOWING A PROCEDURE, UNSPECIFIED, INIT SNOMED Code(s): 94298993 Plan: 1patient with the recent vascular procedure to the right lower extremity not present to the hospital with the right groin wound foul-smelling drainage concerning for wound infection we will need to call for the gram-positive as well as gram-negative pathogen. CT was negative for any residual abscess to the right groin 2patient with a penicillin ALLERGY long time ago however subsequently patient's taken amoxicillin clinically doubt true penicillin allergy 3patient culture so far negative however the Gram stain did show some gram- negative bacilli which never grew, patient seemed to be doing well on oral Om nicef plan is to finish therapy with oral Ceftin/Omnicef 10 days local wound care per surgery and close outpatient follow-up Time with Patient: Less than 30
== END 2022-09-02 17:56 | disposition home health service (06) | DRG 862 ==
LOC: EC 14:49 → 5NMEDONC 18:44
PROVIDERS: ADMIT Hospitalist; ATTEND Hospitalist
DX: T81.44XA Sepsis following a procedure, initial encounter (principal); A41.50 Gram-negative sepsis, unspecified; J96.01 Acute respiratory failure with hypoxia; L02.214 Cutaneous abscess of groin; T82.858A Stenosis of other vascular prosthetic devices, implants and grafts, initial encounter; J90 Pleural effusion, not elsewhere classified; T81.41XA Infection following a procedure, superficial incisional surgical site, initial encounter; E86.0 Dehydration; E11.51 Type 2 diabetes mellitus with diabetic peripheral angiopathy without gangrene; E78.5 Hyperlipidemia, unspecified; E11.42 Type 2 diabetes mellitus with diabetic polyneuropathy; I71.40 Abdominal aortic aneurysm, without rupture, unspecified; I67.1 Cerebral aneurysm, nonruptured; J44.9 Chronic obstructive pulmonary disease, unspecified; F41.9 Anxiety disorder, unspecified; N32.81 Overactive bladder; R32 Unspecified urinary incontinence; F32.A Depression, unspecified; F40.240 Claustrophobia; I70.721 Atherosclerosis of other type of bypass graft(s) of the extremities with rest pain, right leg; M79.661 Pain in right lower leg; Z96.653 Presence of artificial knee joint, bilateral; Z96.611 Presence of right artificial shoulder joint; W18.11XD Fall from or off toilet without subsequent striking against object, subsequent encounter; Z92.3 Personal history of irradiation; Z92.21 Personal history of antineoplastic chemotherapy; Z87.891 Personal history of nicotine dependence; Z86.73 Personal history of transient ischemic attack (TIA), and cerebral infarction without residual deficits; Z85.048 Personal history of other malignant neoplasm of rectum, rectosigmoid junction, and anus; Z79.899 Other long term (current) drug therapy; Z79.890 Hormone replacement therapy; Z79.82 Long term (current) use of aspirin; Z79.02 Long term (current) use of antithrombotics/antiplatelets; Z88.1 Allergy status to other antibiotic agents; Z88.0 Allergy status to penicillin; Z95.820 Peripheral vascular angioplasty status with implants and grafts
CPT/HCPCS: 36415; 71046; 80048; 80053; 80202; 81001; 82565; 83036; 83605; 83735; 84100; 84484; 85025; 85610; 85730; 86140; 87040; 87070; 87075; 87205; 90471; 96361; 96365; 96366; 96367; 96375; 99285

== ENCOUNTER 2023-04-04 16:37 | Emergency (ER) | payer MEDICARE ==
[2023-04-04] MEDS ORDERED: SODIUM CHLORIDE 0.9% 1,000 ML IV STA (16:50)
[2023-04-04] MEDS ORDERED: MORPHINE SULFATE 4 MG/ML SYRINGE IV STA (16:50)
--- NOTE | 2023-04-04 16:55 | ED ---
Weakness HPI - General Stated complaint: Weakness Time Seen by Provider: 04/04/23 16:39 Source: EMS, RN notes reviewed, old records reviewed Mode of arrival: EMS Limitations: no limitations - History of Present Illness Initial comments: This is a 73-year-old female to the emergency department for evaluation of falls multiple falls lately with weakness. Patient had multiple falls today fell did hit head on blood thinners patient is a poor historian. Ration has persistent symptoms here in the ER complaints of weakness, family at bedside providing history. Patient is a poor historian MD Complaint: generalized weakness, lack of energy, difficulty walking -: days(s) Location: generalized Severity: moderate Quality: numbness Consistency: constant Improves with: none Worsens with: none Context: recent illness, history of similar Associated Symptoms: confusion - Related Data Home Medications Medication Instructions Recorded Confirmed Clopidogrel [Plavix] 75 mg PO DAILY 08/15/16 04/04/23 Levothyroxine Sodium [Synthroid] 25 mcg PO DAILY 08/15/16 04/04/23 FLUoxetine HCL [PROzac] 40 mg PO DAILY 07/25/20 04/04/23 levETIRAcetam [Keppra] 500 mg PO BID 07/25/20 04/04/23 Gabapentin [Neurontin] 300 mg PO BID 08/03/22 04/04/23 ALPRAZolam [Xanax] 0.25 mg PO DAILY PRN 04/04/23 04/04/23 Atorvastatin [Lipitor] 80 mg PO HS 04/04/23 04/04/23 Gabapentin 600 mg PO BID 04/04/23 04/04/23 carBAMazepine [carBAMazepine ER] 100 mg PO BID 04/04/23 04/04/23 Previous Rx's Medication Instructions Recorded Aspirin 81 mg PO DAILY #30 tab 08/10/22 Cephalexin [Keflex] 500 mg PO Q8HR 7 Days #21 cap 04/04/23 Allergies Allergy/AdvReac Type Severity Reaction Status Date / Time erythromycin base Allergy Rash/Hives Verified 04/04/23 17:05 Fish Containing Products Allergy Anaphylaxis Verified 04/04/23 17:05 Penicillins Allergy Anaphylaxis Verified 04/04/23 17:05 shellfish derived [Shellfish] Allergy Anaphylaxis Verified 04/04/23 17:05 levofloxacin [From Levaquin] AdvReac Rash/Hives, Verified 04/04/23 17:05 swelling Review of Systems ROS Statement: Those systems with pertinent positive or pertinent negative responses have been documented in the HPI. ROS Other: All systems not noted in ROS Statement are negative. 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 ,States yeast infection in genital area and folds of abd., diet controlled diabetes., has stimulator left hip for back pain (not working)., PAD. History of Any Multi-Drug Resistant Organisms: None Reported Past Surgical History: Appendectomy, Back Surgery, Bladder Surgery, Cholecystectomy, Hysterectomy, Joint Replacement Additional Past Surgical History / Comment(s): Bilateral knee replacements, right shoulder rotator cuff X2, bilateral iliac femoral stents, bladder suspension X2, right Mediport removed, left lung biopsy, lymph node biopsy, left groin biopsy(malignant). bilateral carpal tunnel, bilateral cataracts, right shoulder replacement. stimulator in hip (left) for back, bilateral iliac arterial stents., R femoral stent Past Anesthesia/Blood Transfusion Reactions: No Reported Reaction, Family History of Problems w/ Anesthesia Additional Past Anesthesia/Blood Transfusion Reaction / Comment(s): Claustrophobic., vomited and aspirated during colonoscopy. son had difficulty waking up after surgery Past Psychological History: Anxiety, Depression Smoking Status: Former smoker, Vaper Past Alcohol Use History: None Reported Past Drug Use History: None Reported - Past Family History Sister(s) Family Medical History: Cancer Additional Family Medical History / Comment(s): Lung cancer. other sister heart failure Brother(s) Family Medical History: Cancer Additional Family Medical History / Comment(s): Lung cancer. Mother Family Medical History: Cancer Additional Family Medical History / Comment(s): Drugs and alcohol - of. Ear lobe cancer. Father Family Medical History: Cancer, Hyperlipidemia, Hypertension Additional Family Medical History / Comment(s): Skin cancer. General Exam Limitations: no limitations General appearance: alert, in no apparent distress Head exam: Present: atraumatic, normocephalic, normal inspection Eye exam: Present: normal appearance, PERRL, EOMI. Absent: scleral icterus, conjunctival injection, periorbital swelling ENT exam: Present: normal exam, mucous membranes moist Neck exam: Present: normal inspection. Absent: tenderness, meningismus, lymphadenopathy Respiratory exam: Present: normal lung sounds bilaterally. Absent: respiratory distress, wheezes, rales, rhonchi, stridor Cardiovascular Exam: Present: regular rate, normal rhythm, normal heart sounds. Absent: systolic murmur, diastolic murmur, rubs, gallop, clicks GI/Abdominal exam: Present: soft, normal bowel sounds. Absent: distended, tenderness, guarding, rebound, rigid Extremities exam: Present: normal inspection, full ROM, normal capillary refill. Absent: tenderness, pedal edema, joint swelling, calf tenderness Back exam: Present: normal inspection Neurological exam: Present: alert, oriented X3, CN II-XII intact Psychiatric exam: Present: normal affect, normal mood Skin exam: Present: warm, dry, intact, normal color. Absent: rash Course Vital Signs 04/04/23 04/04/23 04/04/23 16:40 18:42 20:22 Temperature 97.7 F 98.0 F 98.8 F Pulse Rate 69 71 74 Respiratory 18 18 16 Rate Blood Pressure 133/70 133/63 138/72 O2 Sat by Pulse 96 99 96 Oximetry - Reevaluation(s) Reevaluation #4: Was pt. sent in by a medical professional or institution (, PA, ROBOTIC WELDING OPERATOR, urgent care, hospital, or prison...) When possible be specific @ -no Did you speak to anyone other than the patient for history (EMS, parent, family, police, friend...)? What history was obtained from this source @ -no Did you review nursing and triage notes (agree or disagree)? Why? @ -agree Are old charts reviewed (outside hosp., previous admission, EMS record, old EKG, old radiological studies, urgent care reports/EKG's, prison records)? Report findings @ -yes Differential Diagnosis (chest pain, altered mental status, abdominal pain women, abdominal pain men, vaginal bleeding, weakness, fever, dyspnea, syncope, headache, dizziness, GI bleed, back pain, seizure, CVA, palpatations, mental health, musculoskeletal)? @ -prior EKG interpreted by me (3pts min.). @ -yes X-rays interpreted by me (1pt min.). @ -yes CT interpreted by me (1pt min.). @ -no U/S interpreted by me (1pt. min.). @ -no What testing was considered but not performed or refused? (CT, X-rays, U/S, labs)? Why? @ -none What meds were considered but not given or refused? Why? @ -none Did you discuss the management of the patient with other professionals (professionals i.e. Dr., PA, ROBOTIC WELDING OPERATOR, lab, RT, psych nurse, social media project manager, sheet metal contractor, teacher, air defence officer, lining caser)? Give summary @ -no Was smoking cessation discussed for >3mins.? @ -no Was critical care preformed (if so, how long)? @ -no Were there social determinants of health that impacted care today? How? (Homelessness, low income, unemployed, alcoholism, drug addiction, transportation, low edu. Level, literacy, decrease access to med. care, detention, rehab)? @ -none Was there de-escalation of care discussed even if they declined (Discuss DNR or withdrawal of care, Hospice)? DNR status @ -no What co-morbidities impacted this encounter? (DM, HTN, Smoking, COPD, CAD, Cancer, CVA, ARF, Chemo, Hep., AIDS, mental health diagnosis, sleep apnea, morbid obesity)? @ -none Was patient admitted / discharged? Hospital course, mention meds given and route, prescriptions, significant lab abnormalities, going to OR and other pertinent info. @ - Undiagnosed new problem with uncertain prognosis? @ -no Drug Therapy requiring intensive monitoring for toxicity (Heparin, Nitro, Insulin, Cardizem)? @ -no Were any procedures done? @ -no Diagnosis/symptom? @ - Acute, or Chronic, or Acute on Chronic? @ -Acute Uncomplicated (without systemic symptoms) or Complicated (systemic symptoms)? @ -Complicated Side effects of treatment? @ -no Exacerbation, Progression, or Severe Exacerbation? @ -exacerbation Poses a threat to life or bodily function? How? (Chest pain, USA, HI, pneumonia, PE, COPD, DKA, ARF, appy, cholecystitis, CVA, Diverticulitis, Homicidal, Suicidal, threat to staff... and all critical care pts) @ -yes Reevaluation #5: Differential Weakness: Hypoglycemia, shock, sepsis, hyponatremia, anemia, infection, HI, ETOH, adverse medicine reaction, overdose, stroke, this is not meant to be an all-inclusive list. EKG Findings - EKG Comments: EKG Findings:: EKG is sinus 68 NH 141 QRS 202 QTC 461 - EKG Results: EKG: interpreted by [facility] Medical Decision Making - Medical Decision Making 73 female to the emergency department for evaluation. Patient has a for evaluation of severe weakness. Fall. Patient has no significant medical injury, patient does have significant urinary tract infection will place on antibiotics and patient can be discharged home - Lab Data Result diagrams: 04/04/23 17:09 04/04/23 17:09 Lab Results 04/04/23 04/04/23 04/04/23 Range/Units 17:09 17:09 17:09 WBC 11.7 H (3.8-10.6) k/uL RBC 3.79 L (3.80-5.40) m/uL Hgb 10.4 L (11.4-16.0) gm/dL Hct 33.2 L (34.0-46.0) % MCV 87.7 (80.0-100.0) fL MCH 27.3 (25.0-35.0) pg MCHC 31.2 (31.0-37.0) g/dL RDW 16.9 H (11.5-15.5) % Plt Count 249 (150-450) k/uL MPV 8.5 Neutrophils % 88 % Lymphocytes % 10 % Monocytes % 2 % Eosinophils % 0 % Basophils % 0 % Neutrophils # 10.2 H (1.3-7.7) k/uL Lymphocytes # 1.2 (1.0-4.8) k/uL Monocytes # 0.2 (0-1.0) k/uL Eosinophils # 0.0 (0-0.7) k/uL Basophils # 0.0 (0-0.2) k/uL Hypochromasia Marked Anisocytosis Slight PT 9.6 L (10.0-12.5) sec INR 0.8 (<1.2) APTT 20.3 L (22.0-30.0) sec Sodium (137-145) mmol/L Potassium (3.5-5.1) mmol/L Chloride (98-107) mmol/L Carbon Dioxide (22-30) mmol/L Anion Gap mmol/L BUN (7-17) mg/dL Creatinine (0.52-1.04) mg/dL Est GFR (CKD-EPI)AfAm (>60 ml/min/1.73 sqM) Est GFR (CKD-EPI)NonAf (>60 ml/min/1.73 sqM) Glucose (74-99) mg/dL Calcium (8.4-10.2) mg/dL Phosphorus (2.5-4.5) mg/dL Magnesium (1.6-2.3) mg/dL Total Bilirubin (0.2-1.3) mg/dL AST (14-36) U/L ALT (4-34) U/L Alkaline Phosphatase (38-126) U/L Troponin I (0.000-0.034) ng/mL NT-Pro-B Natriuret Pep pg/mL Total Protein (6.3-8.2) g/dL Albumin (3.5-5.0) g/dL Urine Color Colorless Urine Appearance Clear (Clear) Urine pH 6.0 (5.0-8.0) Ur Specific Metaline 1.011 (1.001-1.035) Urine Protein Negative (Negative) Urine Glucose (UA) 1+ H (Negative) Urine Ketones Negative (Negative) Urine Blood Negative (Negative) Urine Nitrite Negative (Negative) Urine Bilirubin Negative (Negative) Urine Urobilinogen <2.0 (<2.0) mg/dL Ur Leukocyte Esterase Moderate H (Negative) Urine RBC 2 (0-5) /hpf Urine WBC 68 H (0-5) /hpf Ur Squamous Epith Cells <1 (0-4) /hpf Hyaline Casts 3 H (0-2) /lpf Urine Mucus Rare H (None) /hpf Urine Yeast (Budding) Occasional H (None) /hpf 04/04/23 04/04/23 Range/Units 17:09 17:09 WBC (3.8-10.6) k/uL RBC (3.80-5.40) m/uL Hgb (11.4-16.0) gm/dL Hct (34.0-46.0) % MCV (80.0-100.0) fL MCH (25.0-35.0) pg MCHC (31.0-37.0) g/dL RDW (11.5-15.5) % Plt Count (150-450) k/uL MPV Neutrophils % % Lymphocytes % % Monocytes % % Eosinophils % % Basophils % % Neutrophils # (1.3-7.7) k/uL Lymphocytes # (1.0-4.8) k/uL Monocytes # (0-1.0) k/uL Eosinophils # (0-0.7) k/uL Basophils # (0-0.2) k/uL Hypochromasia Anisocytosis PT (10.0-12.5) sec INR (<1.2) APTT (22.0-30.0) sec Sodium 135 L (137-145) mmol/L Potassium 4.6 (3.5-5.1) mmol/L Chloride 103 (98-107) mmol/L Carbon Dioxide 19 L (22-30) mmol/L Anion Gap 13 mmol/L BUN 16 (7-17) mg/dL Creatinine 0.68 (0.52-1.04) mg/dL Est GFR (CKD-EPI)AfAm >90 (>60 ml/min/1.73 sqM) Est GFR (CKD-EPI)NonAf 86 (>60 ml/min/1.73 sqM) Glucose 240 H (74-99) mg/dL Calcium 8.4 (8.4-10.2) mg/dL Phosphorus 2.6 (2.5-4.5) mg/dL Magnesium 1.8 (1.6-2.3) mg/dL Total Bilirubin 0.2 (0.2-1.3) mg/dL AST 22 (14-36) U/L ALT 19 (4-34) U/L Alkaline Phosphatase 80 (38-126) U/L Troponin I <0.012 (0.000-0.034) ng/mL NT-Pro-B Natriuret Pep 2490 pg/mL Total Protein 6.1 L (6.3-8.2) g/dL Albumin 3.5 (3.5-5.0) g/dL Urine Color Urine Appearance (Clear) Urine pH (5.0-8.0) Ur Specific Metaline (1.001-1.035) Urine Protein (Negative) Urine Glucose (UA) (Negative) Urine Ketones (Negative) Urine Blood (Negative) Urine Nitrite (Negative) Urine Bilirubin (Negative) Urine Urobilinogen (<2.0) mg/dL Ur Leukocyte Esterase (Negative) Urine RBC (0-5) /hpf Urine WBC (0-5) /hpf Ur Squamous Epith Cells (0-4) /hpf Hyaline Casts (0-2) /lpf Urine Mucus (None) /hpf Urine Yeast (Budding) (None) /hpf - EKG Data -: EKG Interpreted by Nh - Radiology Data Radiology results: report reviewed (CT brain C-spine chest and pelvis x-ray negative for acute disease), image reviewed Disposition Clinical Impression: Weakness, UTI (urinary tract infection) Disposition: HOME SELF-CARE Condition: Good Instructions (If sedation given, give patient instructions): Urinary Tract Infection in Women (ED) Prescriptions: Cephalexin [Keflex] 500 mg PO Q8HR 7 Days #21 cap Is patient prescribed a controlled substance at d/c from ED?: No Referrals: Lisseth Isaac MD [Primary Care Provider] - 1-2 days Time of Disposition: 20:00
[2023-04-04 17:24] LABS: Anisocytosis Slight; Basophils % (A) 0 %; Eosinophils % (A) 0 %; HCT 33.2 % (34.0-46.0); HGB 10.4 gm/dL (11.4-16.0); Hypochromasia Marked; Lymphocytes # (A) 1.2 k/uL (1.0-4.8); Lymphocytes % (A) 10 %; MCH 27.3 pg (25.0-35.0); MCHC 31.2 g/dL (31.0-37.0); MCV 87.7 fL (80.0-100.0); Mean Platelet Volume 8.5; Monocytes # (A) 0.2 k/uL (0-1.0); Monocytes % (A) 2 %; Neutrophils # (A) 10.2 k/uL (1.3-7.7); Neutrophils % (A) 88 %; Platelet Count 249 k/uL (150-450); RBC 3.79 m/uL (3.80-5.40); RDW 16.9 % (11.5-15.5); WBC 11.7 k/uL (3.8-10.6)
[2023-04-04 17:30] LABS: Appearance,Urine Clear (Clear); Bilirubin,Urine Negative (Negative); Blood,Urine Negative (Negative); Budding Yeast,Urine Occasional /hpf; Color,Urine Colorless; Glucose,Urine (UA) 1+ (Negative); Hyaline Casts,Urine 3 /lpf (0-2); Ketones,Urine Negative (Negative); Leukocyte Esterase,Urine Moderate (Negative); Mucus,Urine Rare /hpf; Nitrite,Urine Negative (Negative); Protein,Urine Negative (Negative); RBC,Urine 2 /hpf (0-5); Specific Gravity,Urine 1.011 (1.001-1.035); Squamous Epithelial Cell,Urine <1 /hpf (0-4); Urobilinogen,Urine <2.0 mg/dL (<2.0); WBC,Urine 68 /hpf (0-5)
[2023-04-04 17:32] LABS: INR 0.8 (<1.2); Prothrombin Time 9.6 sec (10.0-12.5)
[2023-04-04 17:38] LABS: ALT 19 U/L (4-34); AST 22 U/L (14-36); African American GFR (CKD) >90 (>60 ml/min/1.73 sqM); Albumin 3.5 g/dL (3.5-5.0); Alkaline Phosphatase 80 U/L (38-126); Anion Gap 13 mmol/L; Blood Urea Nitrogen 16 mg/dL (7-17); Calcium 8.4 mg/dL (8.4-10.2); Carbon Dioxide 19 mmol/L (22-30); Chloride 103 mmol/L (98-107); Glucose 240 mg/dL (74-99); Magnesium 1.8 mg/dL (1.6-2.3); Non-African American GFR(CKD) 86 (>60 ml/min/1.73 sqM); Phosphorus 2.6 mg/dL (2.5-4.5); Potassium 4.6 mmol/L (3.5-5.1); Sodium 135 mmol/L (137-145); Total Bilirubin 0.2 mg/dL (0.2-1.3); Total Protein 6.1 g/dL (6.3-8.2)
[2023-04-04 17:41] LABS: Partial Thromboplastin Time 20.3 sec (22.0-30.0)
--- NOTE | 2023-04-04 17:45 | CT ---
EXAMINATION TYPE: CT brain luz wo con DATE OF EXAM: 04/04/2023 COMPARISON: 08/11/2022 HISTORY: 2 Falls in the last week. Increased weakness. Blood thinners. CT DLP: 1477 mGycm Automated exposure control for dose reduction was used. TECHNIQUE: CT scan of the head and cervical spine are performed without contrast. Head CT: The ventricles, basal cisterns and sulci over the convexities are moderately enlarged consistent with moderate generalized atrophy. There is no mass effect or shift of midline structures. There is remote lacunar infarct adjacent to the frontal horn the right lateral ventricle. There is no acute intra or extra-axial hemorrhage. The posterior fossa is grossly normal. The intraorbital contents appear normal and symmetric. Visualized paranasal sinuses mastoid air cells are well aerated. The calvarium is intact. CT cervical spine. The cranial vertebral junction relationships and prevertebral soft tissues are normal. The cervical vertebral segments are normal in height and alignment and there is no fracture subluxati on. There is marked chondrosis throughout the cervical region but the disc spaces well-maintained. Th e findings are consistent with mild degenerative disc disease. There is mild degeneration of the unco vertebral joints in the lower cervical spine. The facet joints are intact. There is no bony encroachment of the cervical spinal canal. IMPRESSION: 1. No acute bleed or mass effect. 2. No acute trauma to the cervical spine.
[2023-04-04 17:47] LABS: NT-Pro-B-Type Natriuretic Pept 2490 pg/mL
--- NOTE | 2023-04-04 18:40 | XR ---
EXAMINATION TYPE: XR pelvis AP view DATE OF EXAM: 04/04/2023 6:13 PM CLINICAL INDICATION:Female, 73 years old with history of fall; [facility] COMPARISON: None TECHNIQUE: The pelvis was examined in a single projection. FINDINGS: Degenerative changes of the lower lumbar spine with bilateral pedicle screws and posterior fixation rods spanning the L4 L5 S1 levels. Left-sided neurostimulator is present with the lead exten ding cranially over the spine beyond the limits of this exam. Surgical clips versus prosthetic disc i nterspace material projects over the lower lumbar spine. Mild to moderate degenerative changes of the SI joints, pubic symphysis, bilateral hips. No acute fracture or dislocation is identified. Soft tis sues are unremarkable. IMPRESSION: No acute fracture or dislocation identified, on this single view of the pelvis.
--- NOTE | 2023-04-04 18:46 | XR ---
EXAM: XR chest 1V portable CLINICAL INDICATION:Female, 73 years old with history of fall; [facility] COMPARISON: 08/30/2022 TECHNIQUE: Chest single view. FINDINGS: Lines/tubes/devices: EKG leads overlie the chest. No indwelling lines are seen. Cardiomediastinum: Cardiac silhouette appears prominent heart appears mildly enlarged. Stable mediastinal silhouette. Partially calcified mildly tortuous aorta. Vasculature: Mild central congestion. Mildly increased interstitial markings can be related to conge stion or infiltrates, possibly superimposed on chronic changes. Lungs/pleura: Right costophrenic angle is well-defined. Left costophrenic angle is minimally blunted, could be due to small effusion, scarring or atelectasis. No focal airspace consolidation or pneumothorax. Bones/soft tissues: Bony thorax appears grossly intact as seen with degenerative changes of the spine and shoulders noted . Right glenohumeral reverse arthroplasty. Neurostimulator device leads project over the lower thorac ic spine with the tips around the T7 level. Regional soft tissues appear unremarkable. IMPRESSION: Mild cardiomegaly with mild central congestion. Mildly increased interstitial markings can be related to congestion or infiltrates, possibly superimp osed on chronic changes.
[2023-04-04] MEDS ORDERED: CEPHALEXIN 500 MG CAP PO STA (19:38)
[2023-04-04 20:37] VITALS: BP 138/72; PULSE 74; RESP 16; TEMP 98.8
== END 2023-04-04 20:24 | disposition home or self-care (01) ==
LOC: EC 16:37
DX: R53.1 Weakness (principal); N39.0 Urinary tract infection, site not specified; E11.51 Type 2 diabetes mellitus with diabetic peripheral angiopathy without gangrene; E11.36 Type 2 diabetes mellitus with diabetic cataract; J44.9 Chronic obstructive pulmonary disease, unspecified; F41.9 Anxiety disorder, unspecified; E78.5 Hyperlipidemia, unspecified; F32.A Depression, unspecified; F17.290 Nicotine dependence, other tobacco product, uncomplicated; Z79.02 Long term (current) use of antithrombotics/antiplatelets; Z79.890 Hormone replacement therapy; Z79.899 Other long term (current) drug therapy; Z88.0 Allergy status to penicillin; Z88.1 Allergy status to other antibiotic agents; Z91.013 Allergy to seafood; Z86.73 Personal history of transient ischemic attack (TIA), and cerebral infarction without residual deficits
CPT/HCPCS: 36415; 93005; 83880; 80053; 83735; 84100; 84484; 85025; 85610; 85730; 81001; 72170; 71045; 72125; 70450; 99285; 96365; 96361 ×2; J0696

== ENCOUNTER 2023-06-30 16:22 | Emergency (ER) | payer MEDICARE ==
--- NOTE | 2023-06-30 17:51 | CT ---
EXAMINATION TYPE: CT brain cspine wo con CT DLP: Combined DLP of 3414.1 mGycm, Automated exposure control for dose reduction was used. DATE OF EXAM: 06/30/2023 5:36 PM COMPARISON: None. CLINICAL INDICATION:Female, 73 years old with history of fall, pain. on plavix; Fall, Pain, on plavix . TECHNIQUE: Brain: Multiple axial CT images of the brain were obtained without IV contrast. Cspine: Axial CT images from the skull base to the inferior aspect of T2 we obtained without intraven ous contrast. Coronal and sagittal reformatted images were also reviewed. FINDINGS: Brain: Extra-axial spaces: No abnormal extra-axial fluid collections. Ventricular system: Dilatation in proportion to cerebral atrophy. Cerebral parenchyma: Cerebral atrophy. No acute intraparenchymal hemorrhage or mass effect. The cooper -white junction is well differentiated. Scattered hypoattenuating areas are seen within the white mat ter. Cerebellum: Unremarkable. Mass effect: No evidence of midline shift. Intracranial vasculature: Atherosclerotic calcifications of the intracranial vessels. Soft tissues: Normal. Calvarium/osseous structures: No depressed skull fracture. Paranasal sinuses and mastoid air cells: Clear. Visualized orbits: Bilateral aphakia Cervical spine: Fracture: None. Osseous structures: Minimal osteophyte formation and facet and uncovertebral joint arthropathy throug hout the visualized spine. Vertebral alignment: Within normal limits. Spinal canal/Neural Foramina: No evidence of significant spinal canal narrowing. No evidence for sign ificant neural foraminal stenosis. Neck soft tissues: Prevertebral soft tissues are within normal limits. Other: The airway is patent. The lung apices are clear. IMPRESSION: 1. No acute intracranial process. 2. Nonspecific white matter changes, likely secondary to chronic small vessel ischemic disease. 3. No evidence of cervical spine fracture. 4. Moderate multilevel degenerative disc disease.
--- NOTE | 2023-06-30 18:11 | CT ---
EXAMINATION TYPE: CT thor lumbar spine wo con CT DLP: Combined DLP of 3414.1 mGycm, Automated exposure control for dose reduction was used. DATE OF EXAM: 06/30/2023 5:36 PM CLINICAL INDICATION:Female, 73 years old with history of fall, pain. on plavix; Fall, Pain, on plavix . COMPARISON: CT 07/24/2022. TECHNIQUE: Axial images of the thoracic and lumbar spine were obtained without contrast. Coronal and sagittal reformats were performed. 3-D reformats of the bones were created on a separate workstation and submitted for review. CT Contrast: Contrast used: mL of , none. Oral contrast used: none. FINDINGS: Multilevel degeneration changes are seen throughout the spine with disc space tearing, osteophyte for mation and facet joint arthropathy. There is wedging of the L1 vertebrae with near complete height lo ss anteriorly. There is up to 7 mm retropulsion at this level which is not significantly changed from prior. Fixation hardware at L4,L5 and S1 appears intact. Bridging osteophytes along the anterolatera l aspect suggestive of diffuse idiopathic skeletal hyperostosis. Nerve stimulator leads terminating in the posterior thecal sac. The neural foramen demonstrate scatte red mild narrowing worse at L1-L2 secondary to chronic fracture. Discectomy changes at L4-L5 and L5-S 1 present. Other: Multifocal fibrotic change scattered throughout the chest with superimposed pulmonary vascular congestion. There is cardiomegaly with severe coronary artery atherosclerosis. Aortic valve calcific ations are present. There are stimulator leads are present in the spine. The uterus is surgically abs ent. Gallbladder clips are present. Bilateral iliac stent grafts are present. There is severe atheros clerosis of the arterial vasculature. Infrarenal abdominal aortic aneurysmal fusiform dilation up to 3.6 cm. IMPRESSION: 1. No evidence for acute fracture of the spine. 2. L1 compression deformity with retropulsion of up to 7 mm which is stable from 23. 3. Multilevel degeneration changes throughout the spine. 4. Diffuse idiopathic skeletal hyperostosis. 5. Multifocal fibrotic change with superimposed airspace opacities possible, correlate for pneumonia . 6. Pulmonary vascular congestion and cardiomegaly correlate with serum BNP. 7. Infrarenal abdominal aortic aneurysmal fusiform dilation up to 3.6 cm.
--- NOTE | 2023-06-30 18:19 | CT ---
EXAMINATION TYPE: CT pelvis wo con CT DLP: Combined DLP of 3414.1 mGycm, Automated exposure control for dose reduction was used. DATE OF EXAM: 06/30/2023 5:37 PM COMPARISON: CT same day CLINICAL INDICATION:Female, 73 years old with history of fall, pain. scan through left hip; Fall, Emmanuel n, on plavix. TECHNIQUE: Axial CT pelvis wo con;Sagittal and coronal reformats were created on a separate workstat ion. 3-D reconstructions were created on a separate workstation. Contrast used: mL of , (none if empty) Oral contrast used: without Oral Contrast (none if empty) FINDINGS: BLADDER: Unremarkable REPRODUCTIVE: Unremarkable. STOMACH AND BOWEL: No evidence of bowel obstruction. PERITONEUM/RETROPERITONEUM: No evidence of pneumoperitoneum or free fluid. VASCULATURE: No evidence of aortic aneurysm. Bilateral iliac stent grafts are present. Fusiform dilat ion of the infrarenal abdominal aorta measuring up to 3.6 cm. MUSCULOSKELETAL: Fixation hardware in the lower lumbar spine which appears intact. Laminectomy change s also present. There are stimulator device partially visualized. There is moderate to severe degener ation changes of the hips bilaterally. The femurs and bony pelvis appear intact. LYMPH NODES: No gross evidence for lymphadenopathy. SOFT TISSUE/ABDOMINAL WALL: Left lateral thigh subcutaneous edema possibly relating to fall. IMPRESSION: 1. No evidence for pelvis fracture. 2. Fusiform dilation of the infrarenal abdominal aorta measuring up to 3.6 cm. 3. Post surgical changes spine appear intact.
--- NOTE | 2023-06-30 18:32 | XR ---
EXAMINATION TYPE: XR femur LT DATE OF EXAM: 06/30/2023 6:20 PM CLINICAL INDICATION:Female, 73 years old with history of fall; COMPARISON: 04/04/2023. TECHNIQUE: XR femur LT examined in Frontal and lateral projections. FINDINGS: Left knee arthroplasty changes. Hardware appears intact. No evidence of acute osseous path ology, joint dislocation, or soft tissue swelling. Mild osteophyte formations of the superior acetabu lum. Mild joint space narrowing. IMPRESSION: 1. No acute osseous pathology. 2. Post knee arthroplasty changes, hardware appears intact. 3. Mild left hip osteoarthrosis
--- NOTE | 2023-06-30 18:34 | XR ---
EXAMINATION TYPE: XR chest 1V DATE OF EXAM: 06/30/2023 6:20 PM CLINICAL INDICATION:Female, 73 years old with history of fall, pain. on plavix; [facility] COMPARISON: Chest radiographs from 04/04/2023. CT same day. TECHNIQUE: XR chest 1V Frontal view of the chest. FINDINGS: Lungs/Pleura: Hardware superimposed airspace capacities on congestive heart failure changes. There is no evidence of pleural effusion, focal consolidation, or pneumothorax. Pulmonary vascularity: Pulmonary vascular congestion. Heart/mediastinum: Cardiomediastinal silhouette is enlarged and stable. Musculoskeletal: No acute osseous pathology. Right shoulder arthroplasty changes. Hardware appears in tact. There are stimulator leads terminating over the spine. IMPRESSION: Cardiomegaly and mild pulmonary vascular congestion. Correlate with BNP for congestive heart failure. Superimposed airspace opacities could represent pneumonia.
[2023-06-30] MEDS: HYDROcodone/APAP 5-325MG 1 EACH TAB PO STA (19:23)
--- NOTE | 2023-06-30 19:23 | ED ---
General Adult HPI - General Chief complaint: Fall Stated complaint: Fall Time Seen by Provider: 06/30/23 16:45 Source: patient, EMS, RN notes reviewed, old records reviewed Mode of arrival: EMS Limitations: no limitations - History of Present Illness Initial comments: Patient is a 73-year-old female who presents emergency department following a fall. States she lost her balance and fell backwards. Did not hit her head. Did not lose consciousness. Is complaining of some nonspecific back pain throughout her entire back as well as left hip and leg pain. Ambulates with a walker at baseline. States she lost her balance. Did not faint. Did not lose consciousness. Patient is on Plavix. Presents for further evaluation at this time. Denies chest pain, abdominal pain, nausea, vomiting, blurry vision. Denies headache. - Related Data Home Medications Medication Instructions Recorded Confirmed Clopidogrel [Plavix] 75 mg PO DAILY 08/15/16 04/04/23 Levothyroxine Sodium [Synthroid] 25 mcg PO DAILY 08/15/16 04/04/23 FLUoxetine HCL [PROzac] 40 mg PO DAILY 07/25/20 04/04/23 levETIRAcetam [Keppra] 500 mg PO BID 07/25/20 04/04/23 Gabapentin [Neurontin] 300 mg PO BID 08/03/22 04/04/23 ALPRAZolam [Xanax] 0.25 mg PO DAILY PRN 04/04/23 04/04/23 Atorvastatin [Lipitor] 80 mg PO HS 04/04/23 04/04/23 Gabapentin 600 mg PO BID 04/04/23 04/04/23 carBAMazepine [carBAMazepine ER] 100 mg PO BID 04/04/23 04/04/23 Previous Rx's Medication Instructions Recorded Aspirin 81 mg PO DAILY #30 tab 08/10/22 Cephalexin [Keflex] 500 mg PO Q8HR 7 Days #21 cap 04/04/23 Doxycycline Hyclate 100 mg PO BID 10 Days #20 capsule 06/30/23 Allergies Allergy/AdvReac Type Severity Reaction Status Date / Time erythromycin base Allergy Rash/Hives Verified 04/04/23 17:05 Fish Containing Products Allergy Anaphylaxis Verified 04/04/23 17:05 Penicillins Allergy Anaphylaxis Verified 04/04/23 17:05 shellfish derived [Shellfish] Allergy Anaphylaxis Verified 04/04/23 17:05 levofloxacin [From Levaquin] AdvReac Rash/Hives, Verified 04/04/23 17:05 swelling Review of Systems ROS Statement: Those systems with pertinent positive or pertinent negative responses have been documented in the HPI. Review of Systems: CONST: Denies fever EYES: Denies blurry vision ENT: Denies nasal congestion C/V: Denies Chest pain RESP: Denies shortness of breath GI: Denies abdominal pain : Denies dysuria SKIN: Denies rash. MSK: Endorses joint pain NEURO: Denies headache ROS Other: All systems not noted in ROS Statement are negative. 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 ,States yeast infection in genital area and folds of abd., diet controlled diabetes., has stimulator left hip for back pain (not working)., PAD. History of Any Multi-Drug Resistant Organisms: None Reported Past Surgical History: Appendectomy, Back Surgery, Bladder Surgery, Cholecystectomy, Hysterectomy, Joint Replacement Additional Past Surgical History / Comment(s): Bilateral knee replacements, right shoulder rotator cuff X2, bilateral iliac femoral stents, bladder suspension X2, right Mediport removed, left lung biopsy, lymph node biopsy, left groin biopsy(malignant). bilateral carpal tunnel, bilateral cataracts, right shoulder replacement. stimulator in hip (left) for back, bilateral iliac arterial stents., R femoral stent Past Anesthesia/Blood Transfusion Reactions: No Reported Reaction, Family History of Problems w/ Anesthesia Additional Past Anesthesia/Blood Transfusion Reaction / Comment(s): Martín trophobic., vomited and aspirated during colonoscopy. son had difficulty waking up after surgery Past Psychological History: Anxiety, Depression Smoking Status: Former smoker, Vaper Past Alcohol Use History: None Reported Past Drug Use History: None Reported - Past Family History Sister(s) Family Medical History: Cancer Additional Family Medical History / Comment(s): Lung cancer. other sister heart failure Brother(s) Family Medical History: Cancer Additional Family Medical History / Comment(s): Lung cancer. Mother Family Medical History: Cancer Additional Family Medical History / Comment(s): Drugs and alcohol - of. Ear lobe cancer. Father Family Medical History: Cancer, Hyperlipidemia, Hypertension Additional Family Medical History / Comment(s): Skin cancer. General Exam - General Exam Comments Initial Comments: General: Appears in no acute distress. HEAD: Normal with no signs of head trauma. Negative Santillan sign. Negative raccoon eyes. EYES: PERRLA, EOMI, conjunctiva normal, no discharge. Pupils are 3 mm and equal bilaterally. ENT: Hearing grossly intact, normal oropharynx. RESPIRATORY: Clear breath sounds bilaterally. No wheezes, rales, or rhonchi. C/V: Regular rate and rhythm. S1 and S2 auscultated, no edema, peripheral pulses 2+ and intact throughout ABD: Abd is soft, nontender, nondistended EXT: Normal range of motion, no obvious deformity. Pelvis is stable but mild tenderness to palpation over the left pelvis. Bilateral legs are equal in length. Mild paraspinal and midline tenderness to palpation from the cervical through the lumbar spine which patient says is acute on chronic. No obvious step-offs or deformities of the spine appreciated. Patient is in a cervical collar. SKIN: No rashes or lesions observed on exposed skin. NEURO: Alert and oriented x 4. Cranial nerves II-XII intact. No focal sensory or strength deficits. GCS of 15. Limitations: no limitations Course Vital Signs 06/30/23 06/30/23 06/30/23 16:52 18:00 19:31 Temperature 97.9 F 98.4 F Pulse Rate 81 80 91 Respiratory 18 19 18 Rate Blood Pressure 133/74 132/72 131/69 O2 Sat by Pulse 99 97 98 Oximetry Medical Decision Making - Medical Decision Making Was pt. sent in by a medical professional or institution (, [employer], B2[employer] SALES MANAGER, urgent care, hospital, or alf...) When possible be specific @ -No Did you speak to anyone other than the patient for history (EMS, parent, family, police, friend...)? What history was obtained from this source @ -No Did you review nursing and triage notes (agree or disagree)? Why? @ -I reviewed and agree with nursing and triage notes Were old charts reviewed (outside hosp., previous admission, EMS record, old EKG, old radiological studies, urgent care reports/EKG's, alf records)? Report findings @ -Old charts reviewed Differential Diagnosis (chest pain, altered mental status, abdominal pain women, abdominal pain men, vaginal bleeding, weakness, fever, dyspnea, syncope, headache, dizziness, GI bleed, back pain, seizure, CVA, palpatations, mental health, musculoskeletal)? @ -Differential Musculoskeletal Muscular strain, contusion, ligament sprain, fracture, arthritis, septic arthritis, bursitis, cellulitis, muscle spasm, nerve compression, DVT, arterial occlusion, herpes zoster, electrolyte abnormality, tumor.... This is not meant to be in all inclusive list EKG interpreted by me (3pts min.). @ -As above X-rays interpreted by me (1pt min.). @ -Chest x-ray reveals possible pneumonia versus CHF. Correlate clinically. Femur x-ray is negative for any obvious traumatic injury. Patient does have arthritis. CT interpreted by me (1pt min.). @ -CT of the brain reveals no obvious acute intracranial injury or process. CT cervical spine, thoracic spine, lumbar spine is negative for any obvious traumatic injury. CT pelvis negative for any obvious traumatic injury. U/S interpreted by me (1pt. min.). @ -None done What testing was considered but not performed or refused? (CT, X-rays, U/S, labs)? Why? @ -None What meds were considered but not given or refused? Why? @ -I offered analgesia medications which were declined by the patient. Did you discuss the management of the patient with other professionals (professionals i.e. , PA, [employer] SALES MANAGER, lab, RT, psych nurse, health social work professor, polymerization oven tender, teacher, project control officer, case supervisor)? Give summary @ -No Was smoking cessation discussed for >3mins.? @ -No Was critical care preformed (if so, how long)? @ -No Were there social determinants of health that impacted care today? How? (Homelessness, low income, unemployed, alcoholism, drug addiction, transportation, low edu. Level, literacy, decrease access to med. care, retirement, rehab)? @ -No Was there de-escalation of care discussed even if they declined (Discuss DNR or withdrawal of care, Hospice)? DNR status @ -No What co-morbidities impacted this encounter? (DM, HTN, Smoking, COPD, CAD, Cancer, CVA, ARF, Chemo, Hep., AIDS, mental health diagnosis, sleep apnea, morbid obesity)? @ -None Was patient admitted / discharged? Hospital course, mention meds given and route, prescriptions, significant lab abnormalities, going to OR and other pertinent info. @ -Based on the patient's presentation and physical exam, we will obtain CT imaging of brain, spine, pelvis as well as x-rays of the femur, chest. She was in agreement this plan. Declines analgesia medications. Vital signs within acceptable limits. Imaging is negative for any traumatic injury. There is concern for possible pneumonia. I did ask the patient if is having a productive cough which she does endorse. States it is not bad and just started. Denies any fevers. I updated her on the results of her imaging. Diagnosis is muscle strains as well as treatment empirically for pneumonia. I will start her on doxycycline. Vital signs remained within acceptable limits. She will be given a starter pack of Tylenol 3's for home. Patient was in agreement this plan. She will be discharged home at this time. Strict return precautions discussed. I will provide the patient with a prescription for doxycycline, starter pack of Tylenol 3. I instructed the patient to follow up with their PCP in the next 1-3 days.. I explained that the patient should return to the emergency department if they experience any worsening symptoms. Strict return precautions were discussed with the patient. The patient expressed understanding of these instructions. I answered all questions that the patient had. The patient was discharged home in good condition with their prescriptions and follow up information. Undiagnosed new problem with uncertain prognosis? @ -No Drug Therapy requiring intensive monitoring for toxicity (Heparin, Nitro, Insulin, Cardizem)? @ -No Were any procedures done? @ -No Diagnosis/symptom? @ -Fall, muscle strains, URI Acute, or Chronic, or Acute on Chronic? @ -Acute Uncomplicated (without systemic symptoms) or Complicated (systemic symptoms)? @ -Uncomplicated Side effects of treatment? @ -No Exacerbation, Progression, or Severe Exacerbation? @ -No Poses a threat to life or bodily function? How? (Chest pain, USA, ID, pneumonia, PE, COPD, DKA, ARF, appy, cholecystitis, CVA, Diverticulitis, Homicidal, Suicidal, threat to staff... and all critical care pts) @ -Unlikely Disposition Clinical Impression: Fall, Muscle strain, URI (upper respiratory infection) Disposition: HOME SELF-CARE Condition: Good Instructions (If sedation given, give patient instructions): Fall Prevention for Older Adults (ED) Prescriptions: Doxycycline Hyclate 100 mg PO BID 10 Days #20 capsule Is patient prescribed a controlled substance at d/c from ED?: No Referrals: Lisseth Isaac MD [Primary Care Provider] - 1-2 days Time of Disposition: 19:16
[2023-06-30] MEDS: ACET/COD 300 MG/30 MG STARTER PACK 6 TAB BTL PO STA (19:24)
[2023-06-30] MEDS: DOXYCYCLINE 100 MG CAP PO STA (19:30)
[2023-06-30 19:58] VITALS: BP 131/69; PULSE 91; RESP 18; TEMP 98.4
== END 2023-06-30 19:38 | disposition home or self-care (01) ==
LOC: EC 16:22
DX: S39.012A Strain of muscle, fascia and tendon of lower back, initial encounter (principal); E11.51 Type 2 diabetes mellitus with diabetic peripheral angiopathy without gangrene; E78.5 Hyperlipidemia, unspecified; J44.9 Chronic obstructive pulmonary disease, unspecified; E07.9 Disorder of thyroid, unspecified; G47.30 Sleep apnea, unspecified; F41.9 Anxiety disorder, unspecified; F32.A Depression, unspecified; F17.290 Nicotine dependence, other tobacco product, uncomplicated; Z79.899 Other long term (current) drug therapy; Z79.890 Hormone replacement therapy; Z88.1 Allergy status to other antibiotic agents; Z91.013 Allergy to seafood; Z88.0 Allergy status to penicillin; W19.XXXA Unspecified fall, initial encounter
CPT/HCPCS: 70450; 71045; 72125; 72128; 72131; 72192; 99285

== ENCOUNTER 2023-07-19 11:31 | Inpatient (IN) | payer MEDICARE ==
--- NOTE | 2023-07-19 11:50 | ED ---
General Adult HPI - General Stated complaint: SOB Time Seen by Provider: 07/19/23 11:40 Source: patient, RN notes reviewed, old records reviewed - History of Present Illness Initial comments: This is a 73-year-old female who presents to the emergency department stating that she comes in for multiple complaints today. Patient states she has been short of breath over the last few days. Patient denies a cough or congestion she states she does have COPD and she feels as though her shortness of breath is worse than her baseline. Patient denies any fever or chills. Patient has any chest pain or palpitations. Patient states she also fell a couple of weeks ago and hurt her hip she was here for x-rays but the pain is getting progressively worse and it has been very difficult to ambulate at this time. Patient also complains that she has some pain to the bottom of her right foot after she stepped on some glass and she would like it to be evaluated as well. - Related Data Home Medications Medication Instructions Recorded Confirmed Clopidogrel [Plavix] 75 mg PO DAILY 08/15/16 07/19/23 Levothyroxine Sodium [Synthroid] 25 mcg PO DAILY 08/15/16 07/19/23 FLUoxetine HCL [PROzac] 40 mg PO DAILY 07/25/20 07/19/23 Gabapentin [Neurontin] 300 mg PO BID 08/03/22 07/19/23 ALPRAZolam [Xanax] 0.25 mg PO DAILY PRN 04/04/23 07/19/23 Atorvastatin [Lipitor] 80 mg PO HS 04/04/23 07/19/23 Gabapentin 600 mg PO BID 04/04/23 07/19/23 carBAMazepine [carBAMazepine ER] 100 mg PO BID 04/04/23 07/19/23 levETIRAcetam [Keppra] 750 mg PO BID 07/19/23 07/19/23 Previous Rx's Medication Instructions Recorded Aspirin 81 mg PO DAILY #30 tab 08/10/22 Allergies Allergy/AdvReac Type Severity Reaction Status Date / Time erythromycin base Allergy Rash/Hives Verified 07/19/23 14:13 Fish Containing Products Allergy Anaphylaxis Verified 07/19/23 14:13 Penicillins Allergy Anaphylaxis Verified 07/19/23 14:13 shellfish derived [Shellfish] Allergy Anaphylaxis Verified 07/19/23 14:13 levofloxacin [From Levaquin] AdvReac Rash/Hives, Verified 07/19/23 14:13 swelling Review of Systems ROS Statement: Those systems with pertinent positive or pertinent negative responses have been documented in the HPI. ROS Other: All systems not noted in ROS Statement are negative. 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 ,States yeast infection in genital area and folds of abd., diet controlled diabetes., has stimulator left hip for back pain (not working)., PAD. History of Any Multi-Drug Resistant Organisms: None Reported Past Surgical History: Appendectomy, Back Surgery, Bladder Surgery, Cholecystectomy, Hysterectomy, Joint Replacement Additional Past Surgical History / Comment(s): Bilateral knee replacements, right shoulder rotator cuff X2, bilateral iliac femoral stents, bladder suspension X2, right Mediport removed, left lung biopsy, lymph node biopsy, left groin biopsy(malignant). bilateral carpal tunnel, bilateral cataracts, right shoulder replacement. stimulator in hip (left) for back, bilateral iliac arterial stents., R femoral stent Past Anesthesia/Blood Transfusion Reactions: No Reported Reaction, Family History of Problems w/ Anesthesia Additional Past Anesthesia/Blood Transfusion Reaction / Comment(s): Claustrophobic., vomited and aspirated during colonoscopy. son had difficulty waking up after surgery Past Psychological History: Anxiety, Depression Smoking Status: Former smoker, Vaper Past Alcohol Use History: None Reported Past Drug Use History: None Reported - Past Family History Sister(s) Family Medical History: Cancer Additional Family Medical History / Comment(s): Lung cancer. other sister heart failure Brother(s) Family Medical History: Cancer Additional Family Medical History / Comment(s): Lung cancer. Mother Family Medical History: Cancer Additional Family Medical History / Comment(s): Drugs and alcohol - of. Ear lobe cancer. Father Family Medical History: Cancer, Hyperlipidemia, Hypertension Additional Family Medical History / Comment(s): Skin cancer. General Exam - General Exam Comments Initial Comments: GENERAL: Patient is well-developed and well-nourished. Patient is nontoxic and well- hydrated and is in mild distress. ENT: Neck is soft and supple. No significant lymphadenopathy is noted. Oropharynx is clear. Moist mucous membranes. Neck has full range of motion without kiara citing any pain. EYES: The sclera were anicteric and conjunctiva were pink and moist. Extraocular movements were intact and pupils were equal round and reactive to light. Eyelids were unremarkable. PULMONARY: Unlabored respirations. Good breath sounds bilaterally. Patient has crackles anteriorly bilaterally CARDIOVASCULAR: There is a regular rate and rhythm without any murmurs gallops or rubs. ABDOMEN: Soft and nontender with normal bowel sounds. SKIN: Skin is clear with no lesions or rashes and otherwise unremarkable. NEUROLOGIC: Patient is alert and oriented x3. Cranial nerves II through XII are grossly intact. Motor and sensory are also intact. Normal speech, volume and content. Symmetrical smile. MUSCULOSKELETAL: Patient is pain of the left hip when palpating laterally. 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 On the bottom of the foot there is a very small quarter centimeter no foreign body is palpated LYMPHATICS: No significant lymphadenopathy is noted PSYCHIATRIC: Normal psychiatric evaluation. Course Vital Signs 07/19/23 07/19/23 11:45 13:08 Temperature 97.8 F Pulse Rate 101 H 96 Respiratory 16 18 Rate Blood Pressure 104/88 121/56 O2 Sat by Pulse 94 L 94 L Oximetry Medical Decision Making - Medical Decision Making EKG was interpreted by myself read EKG shows a sinus tachycardia at 102 bpm parables 156 QRS is 81 QT interval 351 QTc is 409. Patient's EKG shows no ST segment ovation or depression. Patient was diagnosed with pneumonia on x-ray at 2:50 PM Was pt. sent in by a medical professional or institution (INDIRA Rankin, LENS POLISHER, urgent care, hospital, or correction...) When possible be specific @ -No Did you speak to anyone other than the patient for history (EMS, parent, family, police, friend...)? What history was obtained from this source @ -No Did you review nursing and triage notes (agree or disagree)? Why? @ -I reviewed and agree with nursing and triage notes Were old charts reviewed (outside hosp., previous admission, EMS record, old EKG, old radiological studies, urgent care reports/EKG's, correction records)? Report findings @ -I reviewed prior radiological studies prior lab work and prior charts and this patient Differential Diagnosis (chest pain, altered mental status, abdominal pain women, abdominal pain men, vaginal bleeding, weakness, fever, dyspnea, syncope, headache, dizziness, GI bleed, back pain, seizure, CVA, palpatations, mental health, musculoskeletal)? @ -Differential Dyspnea: Coronary syndrome, arrhythmia, tamponade, asthma, COPD, pulmonary embolism, pneumonia, pneumothorax, pulmonary effusion, anaphylaxis, diabetic ketoacidosis, flailed chest, pulmonary contusion, diaphragmatic rupture, anemia, neuromuscular, this is not meant to be an all-inclusive list. EKG interpreted by me (3pts min.). @ -As above X-rays interpreted by me (1pt min.). @ -Chest x-ray shows pulmonary edema. X-ray of the foot shows no foreign body. CT interpreted by me (1pt min.). @ -CT of the hip shows no acute abnormality U/S interpreted by me (1pt. min.). @ -None done What testing was considered but not performed or refused? (CT, X-rays, U/S, labs)? Why? @ -None What meds were considered but not given or refused? Why? @ -None Did you discuss the management of the patient with other professionals (professionals i.e. , PA, LENS POLISHER, lab, RT, psych nurse, vp digital marketing social media and crm, box attacher, teacher, freedom of information officer, bottle caser)? Give summary @ [facility]. Was smoking cessation discussed for >3mins.? @ -No Was critical care preformed (if so, how long)? @ -No Were there social determinants of health that impacted care today? How? (Home lessness, low income, unemployed, alcoholism, drug addiction, transportation, low edu. Level, literacy, decrease access to med. care, intermediate, rehab)? @ -No Was there de-escalation of care discussed even if they declined (Discuss DNR or withdrawal of care, Hospice)? DNR status @ -No What co-morbidities impacted this encounter? (DM, HTN, Smoking, COPD, CAD, Cancer, CVA, ARF, Chemo, Hep., AIDS, mental health diagnosis, sleep apnea, morbid obesity)? @ -None Was patient admitted / discharged? Hospital course, mention meds given and route, prescriptions, significant lab abnormalities, going to OR and other pertinent info. @ -Patient had possible infiltrate so start the patient on antibiotic. Patient had congestive heart failure when I looked at the chest x-ray. [facility] patient admit the patient I wrote admitting orders Undiagnosed new problem with uncertain prognosis? @ -No Drug Therapy requiring intensive monitoring for toxicity (Heparin, Nitro, Insulin, Cardizem)? @ -No Were any procedures done? @ -No Diagnosis/symptom? @ -Pulmonary edema Acute, or Chronic, or Acute on Chronic? @ -Acute Uncomplicated (without systemic symptoms) or Complicated (systemic symptoms)? @ -Complicated Side effects of treatment? @ -No Exacerbation, Progression, or Severe Exacerbation? @ -No Poses a threat to life or bodily function? How? (Chest pain, [place], [place], pneumonia, PE, COPD, DKA, ARF, appy, cholecystitis, CVA, Diverticulitis, Homicidal, Suic idal, threat to staff... and all critical care pts) @ -Yes this can lead to hypoxia and endorgan dysfunction diagnosis/symptom? Diagnosis/symptom? @ -Hip pain left Acute, or Chronic, or Acute on Chronic? @ -Acute Uncomplicated (without systemic symptoms) or Complicated (systemic symptoms)? @ -Uncomplicated Side effects of treatment? @ -None Exacerbation, Progression, or Severe Exacerbation] @ -No Poses a threat to life or bodily function? @ -No Diagnosis/symptom? @ -Pneumonia Acute, or Chronic, or Acute on Chronic? @ -Acute Uncomplicated (without systemic symptoms) or Complicated (systemic symptoms)? @ -Complicated Side effects of treatment? @ -None Exacerbation, Progression, or Severe Exacerbation] @ -No Poses a threat to life or bodily function? @ -Yes this could lead to hypoxia and endorgan dysfunction - Lab Data Result diagrams: 07/19/23 11:47 07/19/23 11:47 Lab Results 07/19/23 07/19/23 07/19/23 Range/Units 11:47 11:47 11:47 WBC 10.7 H (3.8-10.6) k/uL RBC 3.41 L (3.80-5.40) m/uL Hgb 7.7 L (11.4-16.0) gm/dL Hct 27.0 L (34.0-46.0) % MCV 79.2 L (80.0-100.0) fL MCH 22.6 L (25.0-35.0) pg MCHC 28.6 L (31.0-37.0) g/dL RDW 21.5 H (11.5-15.5) % Plt Count 346 (150-450) k/uL MPV 8.2 Neutrophils % 78 % Lymphocytes % 11 % Monocytes % 6 % Eosinophils % 1 % Basophils % 0 % Neutrophils # 8.4 H (1.3-7.7) k/uL Lymphocytes # 1.2 (1.0-4.8) k/uL Monocytes # 0.6 (0-1.0) k/uL Eosinophils # 0.1 (0-0.7) k/uL Basophils # 0.0 (0-0.2) k/uL Hypochromasia Marked Anisocytosis Moderate Microcytosis Moderate PT 10.1 (10.0-12.5) sec INR 0.9 (<1.2) APTT 19.2 L (22.0-30.0) sec Sodium 133 L (137-145) mmol/L Potassium 4.5 (3.5-5.1) mmol/L Chloride 106 (98-107) mmol/L Carbon Dioxide 18 L (22-30) mmol/L Anion Gap 9 mmol/L BUN 13 (7-17) mg/dL Creatinine 0.80 (0.52-1.04) mg/dL Est GFR (CKD-EPI)AfAm 84 (>60 ml/min/1.73 sqM) Est GFR (CKD-EPI)NonAf 73 (>60 ml/min/1.73 sqM) Glucose 165 H (74-99) mg/dL Plasma Lactic Acid Boyd (0.7-2.0) mmol/L Calcium 8.2 L (8.4-10.2) mg/dL Magnesium 1.7 (1.6-2.3) mg/dL Total Bilirubin 0.7 (0.2-1.3) mg/dL AST 27 (14-36) U/L ALT 17 (4-34) U/L Alkaline Phosphatase 96 (38-126) U/L Troponin I (0.000-0.034) ng/mL NT-Pro-B Natriuret Pep 2310 pg/mL Total Protein 6.1 L (6.3-8.2) g/dL Albumin 3.5 (3.5-5.0) g/dL Influenza Type A (PCR) (Not Detectd) Influenza Type B (PCR) (Not Detectd) RSV (PCR) (Not Detectd) SARS-CoV-2 (PCR) (Not Detectd) 07/19/23 07/19/23 07/19/23 Range/Units 11:47 11:47 11:47 WBC (3.8-10.6) k/uL RBC (3.80-5.40) m/uL Hgb (11.4-16.0) gm/dL Hct (34.0-46.0) % MCV (80.0-100.0) fL MCH (25.0-35.0) pg MCHC (31.0-37.0) g/dL RDW (11.5-15.5) % Plt Count (150-450) k/uL MPV Neutrophils % % Lymphocytes % % Monocytes % % Eosinophils % % Basophils % % Neutrophils # (1.3-7.7) k/uL Lymphocytes # (1.0-4.8) k/uL Monocytes # (0-1.0) k/uL Eosinophils # (0-0.7) k/uL Basophils # (0-0.2) k/uL Hypochromasia Anisocytosis Microcytosis PT (10.0-12.5) sec INR (<1.2) APTT (22.0-30.0) sec Sodium (137-145) mmol/L Potassium (3.5-5.1) mmol/L Chloride (98-107) mmol/L Carbon Dioxide (22-30) mmol/L Anion Gap mmol/L BUN (7-17) mg/dL Creatinine (0.52-1.04) mg/dL Est GFR (CKD-EPI)AfAm (>60 ml/min/1.73 sqM) Est GFR (CKD-EPI)NonAf (>60 ml/min/1.73 sqM) Glucose (74-99) mg/dL Plasma Lactic Acid Boyd 2.5 H* (0.7-2.0) mmol/L Calcium (8.4-10.2) mg/dL Magnesium (1.6-2.3) mg/dL Total Bilirubin (0.2-1.3) mg/dL AST (14-36) U/L ALT (4-34) U/L Alkaline Phosphatase (38-126) U/L Troponin I 0.030 (0.000-0.034) ng/mL NT-Pro-B Natriuret Pep pg/mL Total Protein (6.3-8.2) g/dL Albumin (3.5-5.0) g/dL Influenza Type A (PCR) Not Detected (Not Detectd) Influenza Type B (PCR) Not Detected (Not Detectd) RSV (PCR) Not Detected (Not Detectd) SARS-CoV-2 (PCR) Not Detected (Not Detectd) Disposition Clinical Impression: Pneumonia, Pulmonary edema, Left hip pain Disposition: ADMITTED IP TO THIS HOSP Referrals: Lisseth Isaac MD [Primary Care Provider] - 1-2 days Time of Disposition: 15:11
[2023-07-19 12:36] LABS: Anisocytosis Moderate; Basophils % (A) 0 %; Eosinophils # (A) 0.1 k/uL (0-0.7); Eosinophils % (A) 1 %; HGB 7.7 gm/dL (11.4-16.0); Hypochromasia Marked; Lymphocytes # (A) 1.2 k/uL (1.0-4.8); Lymphocytes % (A) 11 %; MCH 22.6 pg (25.0-35.0); MCHC 28.6 g/dL (31.0-37.0); MCV 79.2 fL (80.0-100.0); Mean Platelet Volume 8.2; Microcytosis Moderate; Monocytes # (A) 0.6 k/uL (0-1.0); Monocytes % (A) 6 %; Neutrophils # (A) 8.4 k/uL (1.3-7.7); Neutrophils % (A) 78 %; Platelet Count 346 k/uL (150-450); RBC 3.41 m/uL (3.80-5.40); RDW 21.5 % (11.5-15.5); WBC 10.7 k/uL (3.8-10.6)
[2023-07-19 12:51] LABS: ALT 17 U/L (4-34); AST 27 U/L (14-36); African American GFR (CKD) 84 (>60 ml/min/1.73 sqM); Albumin 3.5 g/dL (3.5-5.0); Alkaline Phosphatase 96 U/L (38-126); Anion Gap 9 mmol/L; Blood Urea Nitrogen 13 mg/dL (7-17); Calcium 8.2 mg/dL (8.4-10.2); Carbon Dioxide 18 mmol/L (22-30); Chloride 106 mmol/L (98-107); Glucose 165 mg/dL (74-99); Magnesium 1.7 mg/dL (1.6-2.3); Non-African American GFR(CKD) 73 (>60 ml/min/1.73 sqM); Potassium 4.5 mmol/L (3.5-5.1); Sodium 133 mmol/L (137-145); Total Bilirubin 0.7 mg/dL (0.2-1.3); Total Protein 6.1 g/dL (6.3-8.2)
[2023-07-19 12:59] LABS: NT-Pro-B-Type Natriuretic Pept 2310 pg/mL
[2023-07-19 13:04] LABS: INR 0.9 (<1.2); Prothrombin Time 10.1 sec (10.0-12.5)
[2023-07-19 13:08] LABS: Partial Thromboplastin Time 19.2 sec (22.0-30.0)
[2023-07-19] MEDS: KETOROLAC 15 MG/ML 1 ML VIAL IVP STA (13:12)
--- NOTE | 2023-07-19 13:14 | XR ---
EXAMINATION TYPE: XR chest 2V DATE OF EXAM: 07/19/2023 COMPARISON: 06/30/2023 INDICATION: Difficulty breathing short of breath TECHNIQUE: Frontal and lateral views of the chest are obtained. FINDINGS: The heart size is normal. The pulmonary vasculature is prominent. Diffuse perihilar infiltrates present. Infiltrate Extending into the left lower lobe is present.. Co rrelate for pulmonary edema. Infectious etiology can be considered within the differential. Note is made of the stimulator within the mid thoracic region. Right shoulder prosthesis present. IMPRESSION: 1. Diffuse increased lung markings with prominent pulmonary vascular markings. Correlate for pulmonar y edema. 2. Left lower lobe infiltrate. Correlate for atypical pulmonary edema or pneumonia. Follow-up is terence mmended.
--- NOTE | 2023-07-19 13:17 | XR ---
EXAMINATION TYPE: XR foot limited RT DATE OF EXAM: 07/19/2023 COMPARISON: None HISTORY: Laceration bottom of foot from glass TECHNIQUE: Right foot is examined in 2 projections. FINDINGS: Air is prior amputation of the mid metatarsals and distal digits. No acute fractures are identified. Large plantar calcaneal heel spur is present. No suspicious radiopaque foreign body is identified. IMPRESSION: 1. No radiopaque foreign body plantar surface right foot.
--- NOTE | 2023-07-19 13:21 | CT ---
EXAMINATION TYPE: CT hip LT wo con DATE OF EXAM: 07/19/2023 COMPARISON: 06/30/2023 HISTORY: LEFT HIP PAIN X1 WEEK AFTER FALL CT DLP: 757.1 mGycm Automated exposure control for dose reduction was used. Unenhanced CT of the left hip was performed i n coronal, sagittal and axial planes with bone and soft tissue window settings submitted. FINDINGS: Distal abdominal aortic aneurysm redemonstrated a 3.6 cm in AP dimension. Postoperative changes lumba r laminectomy and fusion redemonstrated. No evidence for displaced or impacted left hip fracture. Mil d degenerative joint space narrowing. Acetabular spur formation seen. Subchondral cyst formation iden tified. Vacuum changes left SI joint. No soft tissue mass or fluid about the left hip joint space. IMPRESSION: NO EVIDENCE FOR DISPLACED OR IMPACTED LEFT HIP FRACTURE.
[2023-07-19] MEDS: DIPH,PERTUS(ACELL)TETVAC-LF 0.5 ML VIAL IM ONE ×2 (14:07→14:13)
[2023-07-19] MEDS ORDERED: ALPRAZolam 0.25 MG TAB PO PRN (15:24)
[2023-07-19] MEDS ORDERED: HYDROcodone/APAP 5-325MG 1 EACH TAB PO PRN (15:24)
[2023-07-19] MEDS ORDERED: HYDROmorphone 0.5 MG/0.5 ML SYRINGE IVP PRN (15:24)
[2023-07-19] MEDS: FUROSEMIDE 10 MG/ML 4 ML VIAL IV SCH (15:40)
[2023-07-19] MEDS: IPRATROPIUM-ALBUTEROL 3 ML NEB INHALATION SCH (16:25)
[2023-07-19 16:32] LABS: Anisocytosis Moderate; Basophils % (A) 0 %; Eosinophils # (A) 0.1 k/uL (0-0.7); Eosinophils % (A) 1 %; HCT 24.8 % (34.0-46.0); HGB 7.3 gm/dL (11.4-16.0); Hypochromasia Marked; Lymphocytes # (A) 1.8 k/uL (1.0-4.8); Lymphocytes % (A) 19 %; MCH 22.4 pg (25.0-35.0); MCHC 29.3 g/dL (31.0-37.0); MCV 76.4 fL (80.0-100.0); Mean Platelet Volume 8.4; Microcytosis Moderate; Monocytes # (A) 0.6 k/uL (0-1.0); Monocytes % (A) 6 %; Neutrophils # (A) 6.6 k/uL (1.3-7.7); Neutrophils % (A) 69 %; Platelet Count 352 k/uL (150-450); RBC 3.25 m/uL (3.80-5.40); RDW 22.3 % (11.5-15.5); WBC 9.6 k/uL (3.8-10.6)
[2023-07-19] MEDS: AZTREONAM 2 GM in SODIUM CHLORIDE 0.9% 100 ML IVPB STA (16:50)
[2023-07-19] MEDS: FUROSEMIDE 10 MG/ML 4 ML VIAL IV STA (16:50)
[2023-07-19 17:25] LABS: Appearance,Urine Cloudy (Clear); Bilirubin,Urine Negative (Negative); Blood,Urine Negative (Negative); Budding Yeast,Urine Occasional /hpf; Color,Urine Light Yellow; Glucose,Urine (UA) Negative (Negative); Ketones,Urine Negative (Negative); Leukocyte Esterase,Urine Moderate (Negative); Mucus,Urine Rare /hpf; Nitrite,Urine Negative (Negative); Protein,Urine Trace (Negative); RBC,Urine 9 /hpf (0-5); Specific Gravity,Urine 1.014 (1.001-1.035); Squamous Epithelial Cell,Urine 11 /hpf (0-4); Urobilinogen,Urine <2.0 mg/dL (<2.0); WBC,Urine 67 /hpf (0-5)
--- NOTE | 2023-07-19 18:04 | CT ---
EXAMINATION TYPE: CT chest angio for PE CT DLP: 468.8 mGycm, Automated exposure control for dose reduction was used. DATE OF EXAM: 07/19/2023 5:31 PM COMPARISON: 07/24/2022, 06/30/2023. CLINICAL INDICATION:Female, 73 years old with history of elevated ddimer; elevated D dimer TECHNIQUE/CONTRAST: CTA scan of the thorax is performed with IV Contrast, patient injected with 100 ml mL of Isovue 370, MIP images are created and reviewed these are created on a separate workstation.. FINDINGS: Pulmonary Artery: There is no evidence for a filling defect within the pulmonary vasculature to sugge st acute pulmonary embolism. The pulmonary artery is of normal size. Lungs/Pleura: Scattered reticular and groundglass opacities are seen throughout the lungs No evidence of focal consolidation or pneumothorax. Masslike lesion in the medial aspect of the right lower lobe measuring 26 x 25 mm more pronounced compared to 06/01/2023. There are trace bilateral pleural effusi ons. High density material tracks along the left major fissure superiorly. Airway: Large airways are patent. Heart: Heart is within normal limits for size. Vasculature: No evidence of aortic aneurysm. Mediastinum: No gross evidence of adenopathy. Musculoskeletal: No acute osseous abnormalities, right shoulder arthroplasty hardware appears intact. There are stimulator device leads terminating in the posterior thecal sac. Multilevel degeneration c hanges throughout the spine with osteophyte formation disc space narrowing and facet arthropathy. Darcy dging syndesmophytes are seen along the anterior vertebral bodies. Soft Tissues: Unremarkable. Lower neck: No significant findings. Upper Abdomen: The gallbladder surgically absent. IMPRESSION: 1. No evidence of pulmonary embolism. 2. Cardiomegaly with trace bilateral pleural effusions with Scattered reticular and groundglass opaci ties. Correlate for congestive heart failure superimposed on interstitial lung disease. Correlate for atypical pneumonia. 3. Right lower lobe medial pulmonary nodule with possible central cavitation. Further workup and eval uation recommended. 4. Diffuse Idiopathic skeletal hyperostosis.
--- NOTE | 2023-07-19 20:03 | US ---
EXAMINATION TYPE: US venous doppler duplex LE LT DATE OF EXAM: 07/19/2023 7:47 PM COMPARISON: NONE CLINICAL INDICATION: Female, 73 years old with history of Leg pain; Left leg pain SIDE PERFORMED: Left TECHNIQUE: The lower extremity deep venous system is examined utilizing real time linear array sonog milo with graded compression, doppler sonography and color-flow sonography. VESSELS IMAGED: Common Femoral Vein Deep Femoral Vein Greater Saphenous Vein * Femoral Vein Popliteal Vein Small Saphenous Vein * Proximal Calf Veins (* superficial vessels) Left Leg: No evidence for DVT IMPRESSION: Grayscale, color doppler, spectral doppler imaging performed of the deep veins of the lo wer extremities. There is normal flow, compressibility, vascular waveforms.
[2023-07-19] MEDS: carBAMazepine 100 MG TAB.ER.12H PO SCH (20:12)
[2023-07-19] MEDS: GABAPENTIN 300 MG CAP PO SCH ×2 (20:12)
[2023-07-19] MEDS: ATORVASTATIN 80 MG TAB PO SCH (20:12)
[2023-07-19] MEDS: HEPARIN SODIUM,PORCINE 5,000 UNIT/ML 1 ML VIAL SQ SCH (20:12)
[2023-07-19] MEDS: FUROSEMIDE 10 MG/ML 2 ML VIAL IV SCH (20:12)
[2023-07-19 21:50] LABS: Anisocytosis Moderate; HCT 24.2 % (34.0-46.0); HGB 7.2 gm/dL (11.4-16.0); Hypochromasia Marked; MCHC 29.8 g/dL (31.0-37.0); MCV 77.2 fL (80.0-100.0); Mean Platelet Volume 8.1; Microcytosis Moderate; Platelet Count 337 k/uL (150-450); RBC 3.14 m/uL (3.80-5.40); RDW 22.1 % (11.5-15.5); WBC 7.4 k/uL (3.8-10.6)
[2023-07-19 22:22] LABS: Eosinophils # (M) 0.07 k/uL (0-0.7); Monocytes # (M) 0.44 k/uL (0-1.0); Neutrophils # (M) 4.88 k/uL (1.3-7.7); Neutrophils % (M) 66 %; Nucleated Red Blood Cells 0 /100 WBC (0-0); Total Cells Counted 100
[2023-07-19 23:09] VITALS: RESP 18
[2023-07-19] MEDS: AZTREONAM 2 GM in SODIUM CHLORIDE 0.9% 100 ML IVPB SCH (23:11)
--- NOTE | 2023-07-20 02:03 | HP ---
HISTORY AND PHYSICAL CHIEF COMPLAINT: Multiple chief complaints including shortness of breath as well as pain of the left hip and swelling and inability to walk. HISTORY OF PRESENT ILLNESS: This is a 73-year-old woman with a past history of multiple complex medical issues including COPD, had a fall last few days ago. This happened couple of weeks ago and the patient was evaluated and there was no fracture. Chest x-ray showed some pneumonia. Patient remained on antibiotics. Currently, the patient has increasing shortness of breath as well as left hip pain and inability to walk and some left hip swelling. Also, the patient came to [facility] and was admitted for further evaluation and treatment. Chest x-ray was reviewed personally along with ER physician, showed bilateral lesions, could be due to infiltrates versus chronic changes. There is no history of any fever, rigors. PAST MEDICAL HISTORY: Reviewed, includes COPD, hyperlipidemia, diabetes mellitus, anal cancer, on chemotherapy. Rest of history in chart is also reviewed. HOME MEDICATIONS: Reviewed, include Keppra, dose and rest of medications reviewed. ALLERGIES: Reviewed include erythromycin. Rest of allergies reviewed. FAMILY HISTORY: History of lung cancer in family. SOCIAL HISTORY: History of vaping. REVIEW OF SYSTEMS: Fourteen-point review is negative except as mentioned earlier. PHYSICAL EXAMINATION: VITAL SIGNS: Pulse 96, blood pressure 110/56, respirations 18. HEENT: Conjunctivae normal. NECK: No JVD. CARDIOVASCULAR: S1, S2. No murmur. RESPIRATIONS: Few scattered rhonchi and crackles heard. ABDOMEN: Soft, obese, nontender. LEGS: Significant swelling of the left leg present. Movements extremely painful. Patient unable to ambulate. SKIN: No ulcer, rash, bleeding. NERVOUS SYSTEM: No focal deficits. LABORATORY DATA: WBC 10.6, hemoglobin 7.7, which has gradually dropped. Rest of the labs noted. ASSESSMENT: 1. Shortness of breath for evaluation, possible bilateral pneumonia, rule out CHF for acute pulmonary embolism. 2. Right hip pain and gait dysfunction, rule out right hip fracture or joint abnormalities, status post trauma. 3. Right leg swelling, rule out DVT. 4. Rule out PE. 5. Anemia, slowly occurring, rule out chronic GI bleed. 6. Elevated WBC. 7. Hyponatremia. 8. Chronic obstructive pulmonary disease. 9. Diabetes mellitus, type 2. 10.Multiple medical issues. RECOMMENDATIONS: This 73-year-old woman presented with multiple complex medical issues, we will monitor the patient closely. I would recommend to initiate intensive bronchodilator treatment as well as cardiology and pulmonology consultations. BNP is also elevated. Recommend 2D echo with Doppler to rule out the possible CHF. I would also recommend D-dimer to rule out the possibility of pulmonary embolism, and CT angio of chest obtained. Overall prognosis extremely guarded because of multiple complex medical issues. I would also recommend ultrasound of the leg also. See orders for further details. Discussed at length with the family. Further recommendations to follow. MMODL / IJN: [id number] /
--- NOTE | 2023-07-20 06:18 | P.CNPUL ---
History of Present Illness Consult date: 07/20/23 Requesting physician: Jw Collier Reason for consult: dyspnea, abnormal CXR/CT Chief complaint: Progressively worsening shortness of breath over the last couple days. History of present illness: Patient is a 73-year-old white female with past medical history significant for smoking-related interstitial fibrosis, rectal cancer status post chemo/radiation, obstructive sleep apnea, hyperlipidemia, diabetes mellitus, hypothyroidism, frequent urinary tract infections, peripheral vascularocclusive disease, prior right toe amputations, and former tobacco dependence. She does follow in the pulmonary office with Dr. Ivring. Patient presented to the emergency room yesterday morning primarily complaining of progressively worsening shortness of breath over the last 2 days. She states that she has been coughing up brown sputum. No chest pain or hemoptysis. Denies weight loss. Denies fever. She has had some increased lower extremity swelling. She is currently sitting up in bed, on 3 L/min nasal cannula, in no acute distress. She is also mentioning some left hip pain and right foot pain, she may have stepped on some glass. CT of the left hip without contrast did not show any evidence of displaced or impacted left hip fracture. X-ray of the right foot does not show any radiopaque foreign body in the right foot. Initial chest x- ray showed increased interstitial edema and prominent vascular markings. There is also a possible left lower lobe infiltrate. D dimer was elevated, this was followed by chest CT angio protocol. This did not show any evidence of pulmonary embolism. It did show cardiomegaly with trace bilateral pleural effusions with scattered reticular and groundglass opacities. Likely congestive heart failure superimposed on interstitial lung disease. There is a right lower lobe cavitating pulmonary nodule measuring 2.6 x 2.5 cm. Differential includes malignancy, aspergilloma, MAC infection, among other things. CBC from yesterday as a WBC count of 7.4, hemoglobin 7.2, hematocrit 24.2, platelets 337. BMP from yesterday: Sodium 133, potassium 4.5, chloride 106, serum bicarb 18, BUN 13, creatinine 0.8, glucose 165. UA is contaminated. Lactic acid level 1.4. LFTs not elevated. Troponin 0.03. NT proBNP elevated at 3160. Patient was started on Lasix 20 mg twice daily. Procalcitonin also elevated at 0.32. Patient was placed on Azactam in the emergency room. Negative for influenza, RSV, COVID. Afebrile. Vital signs are stable. Review of Systems REVIEW OF SYSTEMS: CONSTITUTIONAL: Denies any recent significant weight loss or weight gain. EYES: Denies change in vision. EARS, NOSE, MOUTH, THROAT: Denies headaches, denies sore throat. CARDIOVASCULAR: Denies chest pain, palpitations or syncopal episodes. RESPIRATORY: See HPI GASTROINTESTINAL: Denies change in appetite, abdominal pain, nausea and vomiting, or diarrhea GENITOURINARY: Denies hematuria, denies infections. MUSKULOSKELETAL: Reports multiple musculoskeletal complaints. Including left hip pain, denies trauma. Also reporting right foot pain, felt she is might of stepped on some glass. She has prior history of right toe amputations. INTEGUMENTARY: Denies rash, denies eczema. NEUROLOGICAL: Denies recent memory loss, no recent seizure activity. PSYCHIATRIC: Denies anxiety, denies depression. 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 ,States yeast infection in genital area and folds of abd., diet controlled diabetes., has stimulator left hip for back pain (not working)., PAD. History of Any Multi-Drug Resistant Organisms: None Reported Past Surgical History: Appendectomy, Back Surgery, Bladder Surgery, Cholecystectomy, Hysterectomy, Joint Replacement Additional Past Surgical History / Comment(s): Bilateral knee replacements, right shoulder rotator cuff X2, bilateral iliac femoral stents, bladder suspension X2, right Mediport removed, left lung biopsy, lymph node biopsy, left groin biopsy(malignant). bilateral carpal tunnel, bilateral cataracts, right shoulder replacement. stimulator in hip (left) for back, bilateral iliac arterial stents., R femoral stent Past Anesthesia/Blood Transfusion Reactions: No Reported Reaction, Family History of Problems w/ Anesthesia Additional Past Anesthesia/Blood Transfusion Reaction / Comment(s): Claustrophobic., vomited and aspirated during colonoscopy. son had difficulty waking up after surgery Past Psychological History: Anxiety, Depression Smoking Status: Former smoker Past Alcohol Use History: None Reported Past Drug Use History: None Reported - Past Family History Sister(s) Family Medical History: Cancer Additional Family Medical History / Comment(s): Lung cancer. other sister heart failure Brother(s) Family Medical History: Cancer Additional Family Medical History / Comment(s): Lung cancer. Mother Family Medical History: Cancer Additional Family Medical History / Comment(s): Drugs and alcohol - of. Ear lobe cancer. Father Family Medical History: Cancer, Hyperlipidemia, Hypertension Additional Family Medical History / Comment(s): Skin cancer. Medications and Allergies Home Medications Medication Instructions Recorded Confirmed Type Clopidogrel [Plavix] 75 mg PO DAILY 08/15/16 07/19/23 History Levothyroxine Sodium [Synthroid] 25 mcg PO DAILY 08/15/16 07/19/23 History FLUoxetine HCL [PROzac] 40 mg PO DAILY 07/25/20 07/19/23 History Gabapentin [Neurontin] 300 mg PO BID 08/03/22 07/19/23 History Aspirin 81 mg PO DAILY #30 tab 08/10/22 07/19/23 Rx ALPRAZolam [Xanax] 0.25 mg PO DAILY PRN 04/04/23 07/19/23 History Atorvastatin [Lipitor] 80 mg PO HS 04/04/23 07/19/23 History Gabapentin 600 mg PO BID 04/04/23 07/19/23 History carBAMazepine [carBAMazepine ER] 100 mg PO BID 04/04/23 07/19/23 History levETIRAcetam [Keppra] 750 mg PO BID 07/19/23 07/19/23 History Allergies Allergy/AdvReac Type Severity Reaction Status Date / Time erythromycin base Allergy Rash/Hives Verified 07/19/23 14:13 Fish Containing Products Allergy Anaphylaxis Verified 07/19/23 14:13 Penicillins Allergy Anaphylaxis Verified 07/19/23 14:13 shellfish derived [Shellfish] Allergy Anaphylaxis Verified 07/19/23 14:13 levofloxacin [From Levaquin] AdvReac Rash/Hives, Verified 07/19/23 14:13 swelling Physical Exam Vitals: Vital Signs Temp Pulse Pulse Resp BP BP Pulse Ox 07/20/23 04:00 98.3 F 86 18 96/59 95 07/20/23 01:36 86 18 07/19/23 23:51 97.6 F 86 18 91/50 96 07/19/23 20:25 93 07/19/23 20:14 92 07/19/23 20:00 97.7 F 90 18 91/47 95 07/19/23 18:33 97.8 F 99 16 136/58 94 L 07/19/23 16:40 91 07/19/23 16:25 90 94 L 07/19/23 16:00 97.4 F L 91 20 112/97 94 L 07/19/23 15:00 76 20 07/19/23 13:08 96 18 121/56 94 L 07/19/23 11:45 97.8 F 101 H 16 104/88 94 L Intake and Output 07/19/23 07/19/23 07/20/23 14:59 22:59 06:59 Intake Total 10 Output Total 750 200 Balance -740 -200 Intake: IV 10 0.9 10 Output: Urine 750 200 Other: Voiding Method External Catheter External Catheter Weight 81.647 kg 81.647 kg GENERAL EXAM: Alert, 73-year-old white female, comfortable in no apparent distress. HEAD: Normocephalic and atraumatic EYES: Normal reaction of pupils, equal size. NOSE: Clear with pink turbinates. THROAT: No erythema or exudates. NECK: No masses, no JVD. CHEST: No chest wall deformity. LUNGS: Equal air entry with diffuse bilateral posterior Velcro crackles. No wheezes, rhonchi, focal dullness. On 3 L/min nasal cannula. No conversational dyspnea or accessory muscle use.. CVS: S1 and S2 normal with no audible murmur, regular rhythm. No extra heart sounds ABDOMEN: No hepatosplenomegaly, active bowel sounds, no guarding or rigidity. SPINE: No scoliosis or deformity SKIN: No rashes CENTRAL NERVOUS SYSTEM: No focal deficits, tone is normal in all 4 extremities. EXTREMITIES: Bilateral lower extremity edema, greater in the left lower extremity. Prior right toes amputation. Unable to palpate pulse of the right lower extremity. Extremity warm and sensation intact. Remaining peripheral pulses are intact. No clubbing, or cyanosis. Results - Laboratory Findings CBC and BMP: 07/19/23 21:11 07/19/23 11:47 PT/INR, D-dimer PT 10.1 sec (10.0-12.5) 07/19/23 11:47 INR 0.9 (<1.2) 07/19/23 11:47 D-Dimer 1.63 mg/L FEU (<0.60) H 07/19/23 16:24 Abnormal lab findings: Abnormal Labs 07/19/23 07/19/23 07/19/23 11:47 11:47 11:47 WBC 10.7 H RBC 3.41 L Hgb 7.7 L Hct 27.0 L MCV 79.2 L MCH 22.6 L MCHC 28.6 L RDW 21.5 H Neutrophils # 8.4 H APTT 19.2 L D-Dimer Sodium 133 L Carbon Dioxide 18 L Glucose 165 H Plasma Lactic Acid Boyd Calcium 8.2 L Total Protein 6.1 L Procalcitonin Urine Appearance Urine Protein Ur Leukocyte Esterase Urine RBC Urine WBC Ur Squamous Epith Cells Urine Mucus Urine Yeast (Budding) 07/19/23 07/19/23 07/19/23 11:47 16:24 16:24 WBC RBC 3.25 L Hgb 7.3 L Hct 24.8 L MCV 76.4 L MCH 22.4 L MCHC 29.3 L RDW 22.3 H Neutrophils # APTT D-Dimer 1.63 H Sodium Carbon Dioxide Glucose Plasma Lactic Acid Boyd 2.5 H* Calcium Total Protein Procalcitonin Urine Appearance Urine Protein Ur Leukocyte Esterase Urine RBC Urine WBC Ur Squamous Epith Cells Urine Mucus Urine Yeast (Budding) 07/19/23 07/19/23 07/19/23 17:14 21:11 22:40 WBC RBC 3.14 L Hgb 7.2 L Hct 24.2 L MCV 77.2 L MCH 23.0 L MCHC 29.8 L RDW 22.1 H Neutrophils # APTT D-Dimer Sodium Carbon Dioxide Glucose Plasma Lactic Acid Boyd Calcium Total Protein Procalcitonin 0.32 H Urine Appearance Cloudy H Urine Protein Trace H Ur Leukocyte Esterase Moderate H Urine RBC 9 H Urine WBC 67 H Ur Squamous Epith Cells 11 H Urine Mucus Rare H Urine Yeast (Budding) Occasional H - Diagnostic Findings Chest x-ray: image reviewed CT scan - chest: image reviewed Assessment and Plan Assessment: Acute on chronic shortness of breath, likely secondary to exacerbation of congestive heart failure, unknown type, superimposed on patient's known history of interstitial lung disease. Chest CT angio protocol did not show any evidence of pulmonary embolism. It did show cardiomegaly with trace bilateral pleural effusions with scattered reticular and groundglass opacities. Likely congestive heart failure superimposed on interstitial lung disease. There is a right lower lobe cavitating pulmonary nodule measuring 2.6 x 2.5 cm. New right lower lobe cavitating 2.6 x 2.5 cm lung nodule, differential includes neoplasm, aspergilloma, MAC infection, among other things History of smoking-related interstitial fibrosis, biopsy-proven History of rectal cancer, status post chemo and radiation. Patient's most re cent PET scan was from November, which did not show any new areas of abnormal hypermetabolic uptake to suggest active neoplastic recurrence. Left hip pain, CT of the left hip without contrast did not show any evidence of displaced or impacted left hip fracture History of peripheral vascular occlusive disease, status post right femoral tibial bypass. History of previous right toe amputations Chronic microcytic, hypochromic anemia History obstructive sleep apnea History of hyperlipidemia History of CVA/TIA History of hypothyroidism History of frequent urinary tract infections Former tobacco smoker Plan: Patient's medications, labs, imaging reviewed Continue supplemental oxygen Agree with Lasix in the form of 20 mg twice daily Echocardiogram pending Patient will need follow-up outpatient PET scan She will also likely need a biopsy of the mention pulmonary nodule, this will be discussed with Dr. Irving later this morning Procalcitonin level 0.32 Continue empiric antibiotics Blood cultures pending. We will continue to follow, and additional recommendations are forthcoming I have personally seen and examined the patient, performed the documentation and the assessment and plan as written. Number of minutes spent on the visit:20 Time with Patient: Greater than 30
--- NOTE | 2023-07-20 07:48 | XR ---
EXAMINATION TYPE: XR chest 2V DATE OF EXAM: 07/20/2023 COMPARISON: 07/19/2023 HISTORY: Shortness of breath TECHNIQUE: Frontal and lateral views of the chest are obtained. FINDINGS: Scattered senescent parenchymal changes noted. Hyperinflation compatible with COPD. Coarse infiltrates persist throughout both lung valentin mildly improved aeration left lower lobe. Heart size is stable. Mediastinal structures are stable and grossly unremarkable. No evidence for hilar prominence. Degenerative changes dorsal spine. IMPRESSION: 1. Coarse infiltrates persist throughout both lung valentin mildly improved aeration left lower lobe.
[2023-07-20] MEDS: CLOPIDOGREL 75 MG TAB PO SCH (08:01)
[2023-07-20] MEDS: ASPIRIN 81 MG PO SCH (08:01)
[2023-07-20] MEDS: FLUoxetine HCL 20 MG CAP PO SCH (08:01)
[2023-07-20] MEDS: LEVOTHYROXINE 25 MCG TAB PO SCH (08:01)
[2023-07-20] MEDS: DAPAGLIFLOZIN PROPANEDIOL 10 MG TABLET PO SCH (08:58)
--- NOTE | 2023-07-20 10:07 | CA ---
Transthoracic Echo Report Name: Alexia Rubin Age: 73 Gender: F : 1950 Exam Date: 07/19/2023 15:44 Exam Location: [facility] Ht (in): 63 Wt (lb): 180 Ordering Physician: Jw Collier MD Attending/Referring Phys: Child And Family Therapist Katarzyna Han RCS Procedure CPT: Indications: chf Cardiac Hx: Technical Quality: Technically difficult study Contrast 1: Definity Total Dose (mL): 2 Contrast 2: Total Dose (mL): MEASUREMENTS (Male / Female) Normal Values 2D ECHO LV Diastolic Diameter PLAX 4.9 cm 4.2 - 5.9 / 3.9 - 5.3 cm LV Systolic Diameter PLAX 3.2 cm IVS Diastolic Thickness 0.8 cm 0.6 - 1.0 / 0.6 - 0.9 cm LVPW Diastolic Thickness 1.0 cm 0.6 - 1.0 / 0.6 - 0.9 cm LV Relative Wall Thickness 0.4 LVOT Diameter 1.9 cm LV Diastolic Volume MOD BP 86.1 cm??? 67 - 155 / 56 - 104 cm??? LV Systolic Volume MOD BP 26.1 cm??? 22 - 58 / 19 - 49 cm??? LV Ejection Fraction MOD BP 69.7 % >= 55 % LV Cardiac Index MOD BP 2757.4 cm???/min???m??? LV Diastolic Volume MOD 4C 85.4 cm??? LV Systolic Volume MOD 4C 27.1 cm??? LV Ejection Fraction MOD 4C 68.3 % LV Cardiac Index MOD 4C 2681.3 cm???/min???m??? LV Diastolic Length 4C 7.6 cm LV Systolic Length 4C 6.3 cm LV Diastolic Volume MOD 2C 85.8 cm??? LV Systolic Volume MOD 2C 25.0 cm??? LV Ejection Fraction MOD 2C 70.8 % LV Cardiac Index MOD 2C 2792.9 cm???/min???m??? LV Diastolic Length 2C 7.8 cm LV Systolic Length 2C 6.4 cm LA Volume 96.4 cm??? 18 - 58 / 22 - 52 cm??? LA Volume Index 49.8 cm???/m??? 16 - 28 cm???/m??? DOPPLER AV Peak Velocity 117.9 cm/s AV Peak Gradient 5.6 mmHg AV Mean Velocity 78.1 cm/s AV Mean Gradient 2.7 mmHg AV Velocity Time Integral 21.0 cm LVOT Peak Velocity 104.7 cm/s LVOT Peak Gradient 4.4 mmHg LVOT Velocity Time Integral 17.4 cm LVOT Stroke Volume 48.3 cm??? LVOT Stroke Volume Index 26.1 ml/m??? LVOT Cardiac Index 2221.8 cm???/min???m??? AV Area Cont Eq vti 2.3 cm??? AV Area Cont Eq pk 2.5 cm??? MV Peak Velocity 164.0 cm/s MV Peak Gradient 10.8 mmHg MV Mean Velocity 118.4 cm/s MV Mean Gradient 6.0 mmHg MV Velocity Time Integral 39.1 cm MV Area PHT 2.7 cm??? Mitral E Point Velocity 139.7 cm/s Mitral A Point Velocity 121.1 cm/s Mitral E to A Ratio 1.2 MV Deceleration Time 284.2 ms TR Peak Velocity 304.2 cm/s TR Peak Gradient 37.0 mmHg Right Atrial Pressure 5.0 mmHg Pulmonary Artery Systolic Pressu 42.0 mmHg Right Ventricular Systolic Press 42.0 mmHg PV Peak Velocity 106.2 cm/s PV Peak Gradient 4.5 mmHg FINDINGS Left Ventricle Left ventricular ejection fraction is estimated at 60-65 %. Left ventricular cavity size normal. Left ventricular wall thickness normal. No obvious regional wall motion abnormalities. Right Ventricle Normal right ventricular size and function. Moderately increased right ventricular systolic pressure. Right Atrium Right atrium not well visualized. Left Atrium Severely increased left atrial volume. Mildly increased left atrial area. Mitral Valve Mitral valve thickened. Mild mitral annular calcification. Mild mitral stenosis. Trace to mild mitral regurgitation. Aortic Valve Aortic valve not well visualized. No aortic stenosis. Mild aortic regurgitation. Tricuspid Valve Structurally normal tricuspid valve. No tricuspid stenosis. Mild to moderate tricuspid regurgitation. Pulmonic Valve Pulmonic valve not well visualized. No pulmonic stenosis. No pulmonic regurgitation. Pericardium No pericardial effusion. Aorta Normal size aortic root and proximal ascending aorta. CONCLUSIONS Left ventricular ejection fraction 60-65% Moderately dilated left atrium Mild mitral stenosis Mild aortic regurgitation Mild to moderate tricuspid regurgitation No pericardial effusion Previewed by: Dr. Richard Blackmon DO (Electronically Signed) Final Date: 20 July 2023 10:06
--- NOTE | 2023-07-20 10:16 | P.CRDCN ---
History of Present Illness History of present illness: HISTORY OF PRESENT ILLNESS: This is a 73-year-old female with a past medical history significant for severe peripheral vascular disease, hyperlipidemia, diabetes, and valvular heart disea se. Patient follows in the office with Dr. Genao but has not been seen in the office since December 2021. We have been asked to see the patient in consultation for congestive heart failure. Patient examined at the bedside. Patient states she initially presented to the hospital with a chief complaint of pain in her left leg. She states that she fell 2 weeks ago and was told that she pulled a muscle but the pain has persisted. She also reports having shortness of breath over the past week. She denies any chest pain or pressure. Patient was found to be in acute heart failure and was started on IV Lasix. DIAGNOSTICS: - EKG reveals sinus mechanism with nonspecific ST-T wave changes. - Chest xray diffuse increased lung markings with prominent pulmonary vascular markings. Left lower lobe infiltrate. Correlate for atypical pulmonary edema or pneumonia. -Chest CTA: Negative for pulmonary embolism - Laboratory data: WBC 7.4. Hemoglobin 7.2. Platelet count 337. D-dimer 1.63. proBNP 3160. Procalcitonin 0.32. Sodium 133. Potassium 4.5. BUN 13. Creatinine 0.80. Troponin negative x 1 - Current home cardiac medications include Lipitor 80 mg at night, aspirin 81 mg daily, Plavix 75 mg daily. - Most recent echocardiogram this admission reveals ejection fraction 60 to 65%, mild mitral stenosis, trace to mild MR, mild to moderate TR REVIEW OF SYSTEMS: At the time of my exam: CONSTITUTIONAL: Denies fever or chills. HEENT: Denies blurred vision, vision changes, or eye pain. Denies hemoptysis CARDIOVASCULAR: Denies chest pain. Denies orthopnea. Denies PND. Denies palpitations RESPIRATORY: Denies shortness of breath. GASTROINTESTINAL: Denies abdominal pain. Denies nausea or vomiting. HEMATOLOGIC: Denies bleeding disorders. GENITOURINARY: Denies any blood in urine. SKIN: Denies pruitis. Denies rash. PHYSICAL EXAM: VITAL SIGNS: Reviewed. GENERAL: Well-developed in no acute distress. HEENT: Head is normocephalic. Pupils are equal, round. Sclerae anicteric. Mucous membranes of the mouth are moist. Neck supple. No JVD or thyromegaly LUNGS: Respirations even and unlabored. Lungs essentially clear to auscultation bilaterally. HEART: Regular rate and rhythm. S1 and S2 heard. Diastolic murmur noted ABDOMEN: Soft. Nondistended. Nontender. EXTREMITIES: Normal range of motion. No clubbing or cyanosis. Peripheral pulses intact. Trace bilateral lower extremity edema NEUROLOGIC: Awake and alert. Oriented x 3. ASSESSMENT: Left leg pain, secondary to mechanical fall, CT negative for fracture New onset heart failure with preserved EF New right lower lobe cavitating lung nodule, 2.6 x 2.5 cm Valvular heart disease Peripheral vascular disease with previous lower extremity intervention, on dual antiplatelet therapy Hyperlipidemia Morbid obesity: BMI 35.1 Former nicotine dependence PLAN: 2D echo obtained and reviewed Increase Lasix to 40 mg twice a day for 24 hours Daily weights, accurate intake and output, and monitoring of kidney function Add Farxiga 10 mg daily Further recommendations pending patient course Nurse practitioner note has been reviewed by physician. Signing provider agrees with the documented findings, assessment, and plan of care documented by TAXATION ACCOUNTANT as a scribe. 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 ,States yeast infection in genital area and folds of abd., diet controlled diabetes., has stimulator left hip for back pain (not working)., PAD. History of Any Multi-Drug Resistant Organisms: None Reported Past Surgical History: Appendectomy, Back Surgery, Bladder Surgery, Cholecystectomy, Hysterectomy, Joint Replacement Additional Past Surgical History / Comment(s): Bilateral knee replacements, right shoulder rotator cuff X2, bilateral iliac femoral stents, bladder suspension X2, right Mediport removed, left lung biopsy, lymph node biopsy, left groin biopsy(malignant). bilateral carpal tunnel, bilateral cataracts, right shoulder replacement. stimulator in hip (left) for back, bilateral iliac arterial stents., R femoral stent Past Anesthesia/Blood Transfusion Reactions: No Reported Reaction, Family History of Problems w/ Anesthesia Additional Past Anesthesia/Blood Transfusion Reaction / Comment(s): Claustrophobic., vomited and aspirated during colonoscopy. son had difficulty waking up after surgery Past Psychological History: Anxiety, Depression Smoking Status: Former smoker Past Alcohol Use History: None Reported Past Drug Use History: None Reported - Past Family History Sister(s) Family Medical History: Cancer Additional Family Medical History / Comment(s): Lung cancer. other sister heart failure Brother(s) Family Medical History: Cancer Additional Family Medical History / Comment(s): Lung cancer. Mother Family Medical History: Cancer Additional Family Medical History / Comment(s): Drugs and alcohol - of. Ear lobe cancer. Father Family Medical History: Cancer, Hyperlipidemia, Hypertension Additional Family Medical History / Comment(s): Skin cancer. Medications and Allergies Home Medications Medication Instructions Recorded Confirmed Type Clopidogrel [Plavix] 75 mg PO DAILY 08/15/16 07/19/23 History Levothyroxine Sodium [Synthroid] 25 mcg PO DAILY 08/15/16 07/19/23 History FLUoxetine HCL [PROzac] 40 mg PO DAILY 07/25/20 07/19/23 History Gabapentin [Neurontin] 300 mg PO BID 08/03/22 07/19/23 History Aspirin 81 mg PO DAILY #30 tab 08/10/22 07/19/23 Rx ALPRAZolam [Xanax] 0.25 mg PO DAILY PRN 04/04/23 07/19/23 History Atorvastatin [Lipitor] 80 mg PO HS 04/04/23 07/19/23 History Gabapentin 600 mg PO BID 04/04/23 07/19/23 History carBAMazepine [carBAMazepine ER] 100 mg PO BID 04/04/23 07/19/23 History levETIRAcetam [Keppra] 750 mg PO BID 07/19/23 07/19/23 History Allergies Allergy/AdvReac Type Severity Reaction Status Date / Time erythromycin base Allergy Rash/Hives Verified 07/19/23 14:13 Fish Containing Products Allergy Anaphylaxis Verified 07/19/23 14:13 Penicillins Allergy Anaphylaxis Verified 07/19/23 14:13 shellfish derived [Shellfish] Allergy Anaphylaxis Verified 07/19/23 14:13 levofloxacin [From Levaquin] AdvReac Rash/Hives, Verified 07/19/23 14:13 swelling Physical Exam Vitals: Vital Signs Temp Pulse Pulse Resp BP BP Pulse Ox 07/20/23 09:34 87 07/20/23 09:20 87 97 07/20/23 07:53 97.8 F 91 18 123/58 97 07/20/23 04:00 98.3 F 86 18 96/59 95 07/20/23 01:36 86 18 07/19/23 23:51 97.6 F 86 18 91/50 96 07/19/23 20:25 93 07/19/23 20:14 92 07/19/23 20:00 97.7 F 90 18 91/47 95 07/19/23 18:33 97.8 F 99 16 136/58 94 L 07/19/23 16:40 91 07/19/23 16:25 90 94 L 07/19/23 16:00 97.4 F L 91 20 112/97 94 L 07/19/23 15:00 76 20 07/19/23 13:08 96 18 121/56 94 L 07/19/23 11:45 97.8 F 101 H 16 104/88 94 L Intake and Output 07/19/23 07/20/23 07/20/23 22:59 06:59 14:59 Intake Total 10 100 Output Total 750 550 Balance -740 -550 100 Intake: IV 10 0.9 10 Oral 100 Output: Urine 750 550 Other: Voiding Method External Catheter External Catheter External Catheter # Voids 1 # Bowel Movements 1 Weight 81.647 kg 90 kg Results 07/19/23 21:11 07/19/23 11:47 Cardiac Enzymes 07/19/23 07/19/23 Range/Units 11:47 11:47 AST 27 (14-36) U/L Troponin I 0.030 (0.000-0.034) ng/mL Coagulation 07/19/23 Range/Units 11:47 PT 10.1 (10.0-12.5) sec APTT 19.2 L (22.0-30.0) sec CBC 07/19/23 07/19/23 07/19/23 Range/Units 11:47 16:24 21:11 WBC 10.7 H 9.6 7.4 (3.8-10.6) k/uL RBC 3.41 L 3.25 L 3.14 L (3.80-5.40) m/uL Hgb 7.7 L 7.3 L 7.2 L (11.4-16.0) gm/dL Hct 27.0 L 24.8 L 24.2 L (34.0-46.0) % Plt Count 346 352 337 (150-450) k/uL Comprehensive Metabolic Panel 07/19/23 Range/Units 11:47 Sodium 133 L (137-145) mmol/L Potassium 4.5 (3.5-5.1) mmol/L Chloride 106 (98-107) mmol/L Carbon Dioxide 18 L (22-30) mmol/L BUN 13 (7-17) mg/dL Creatinine 0.80 (0.52-1.04) mg/dL Glucose 165 H (74-99) mg/dL Calcium 8.2 L (8.4-10.2) mg/dL AST 27 (14-36) U/L ALT 17 (4-34) U/L Alkaline Phosphatase 96 (38-126) U/L Total Protein 6.1 L (6.3-8.2) g/dL Albumin 3.5 (3.5-5.0) g/dL Current Medications Generic Name Dose Route Start Last Admin Trade Name Freq PRN Reason Stop Dose Admin Hydrocodone Bitart/Acetaminophen 1 each 07/19/23 15:24 Hydrocodone/Apap 5-325mg 1 Each Tab PO Q6HR PRN Pain Albuterol/Ipratropium 3 ml 07/19/23 16:00 07/20/23 09:20 Ipratropium-Albuterol 3 Ml Neb INHALATION 3 ml TID RUTH Administration Alprazolam 0.25 mg 07/19/23 15:24 Alprazolam 0.25 Mg Tab PO DAILY PRN Anxiety Aspirin 81 mg 07/20/23 09:00 07/20/23 08:01 Aspirin 81 Mg PO 81 mg DAILY RUTH Administration Atorvastatin Calcium 80 mg 07/19/23 21:00 07/19/23 20:12 Atorvastatin 80 Mg Tab PO 80 mg HS RUTH Administration Carbamazepine 100 mg 07/19/23 21:00 07/20/23 08:02 Carbamazepine 100 Mg Tab.Er.12h PO 100 mg BID RUTH Administration Clopidogrel Bisulfate 75 mg 07/20/23 09:00 04/02/24 08:01 Clopidogrel 75 Mg Tab PO 75 mg DAILY RUTH Administration Dapagliflozin 10 mg 07/20/23 09:00 07/20/23 08:58 Dapagliflozin Propanediol 10 Mg Tablet PO 10 mg DAILY RUTH Administration Fluoxetine HCl 40 mg 07/20/23 09:00 07/20/23 08:01 Fluoxetine Hcl 20 Mg Cap PO 40 mg DAILY RUTH Administration Furosemide 20 mg 07/19/23 21:00 07/20/23 08:01 Furosemide 10 Mg/Ml 2 Ml Vial IV 20 mg Q12HR RUTH Administration Gabapentin 300 mg 07/19/23 21:00 07/20/23 08:01 Gabapentin 300 Mg Cap PO 300 mg BID RUTH Administration Gabapentin 600 mg 07/19/23 21:00 07/20/23 08:01 Gabapentin 300 Mg Cap PO 600 mg BID RUTH Administration Heparin Sodium (Porcine) 5,000 unit 07/19/23 21:00 07/20/23 08:01 Heparin Sodium,Porcine 5,000 Unit/Ml 1 Ml Vial SQ 5,000 unit Q12HR RUTH Administration Hydromorphone HCl 0.5 mg 07/19/23 15:24 Hydromorphone 0.5 Mg/0.5 Ml Syringe IVP Q6HR PRN Severe Pain (Scale 7 to 10) Aztreonam 2 gm/ Sodium 100 mls @ 33.3 mls/hr 07/20/23 00:00 07/20/23 07:55 Chloride IVPB 07/24/23 00:01 33.3 mls/hr Q8HR RUTH Administration Protocol Levetiracetam 750 mg 07/19/23 21:00 07/20/23 08:01 Levetiracetam 750 Mg Tab PO 750 mg BID RUTH Administration Levothyroxine Sodium 25 mcg 07/20/23 09:00 07/20/23 08:01 Levothyroxine 25 Mcg Tab PO 25 mcg DAILY RUTH Administration Intake and Output 07/19/23 07/20/23 07/20/23 22:59 06:59 14:59 Intake Total 10 100 Output Total 750 550 Balance -740 -550 100 Intake: IV 10 0.9 10 Oral 100 Output: Urine 750 550 Other: Voiding Method External Catheter External Catheter External Catheter # Voids 1 # Bowel Movements 1 Weight 81.647 kg 90 kg 07/19/23 21:11 07/19/23 11:47
[2023-07-20 11:13] LABS: Anisocytosis Moderate; Basophils % (A) 0 %; Eosinophils # (A) 0.3 k/uL (0-0.7); Eosinophils % (A) 3 %; HCT 26.4 % (34.0-46.0); HGB 7.4 gm/dL (11.4-16.0); Hypochromasia Marked; Lymphocytes # (A) 0.9 k/uL (1.0-4.8); Lymphocytes % (A) 10 %; MCH 22.6 pg (25.0-35.0); MCHC 28.1 g/dL (31.0-37.0); MCV 80.6 fL (80.0-100.0); Mean Platelet Volume 8.4; Microcytosis Slight; Monocytes # (A) 0.4 k/uL (0-1.0); Monocytes % (A) 5 %; Neutrophils # (A) 6.6 k/uL (1.3-7.7); Neutrophils % (A) 78 %; Platelet Count 349 k/uL (150-450); RBC 3.28 m/uL (3.80-5.40); RDW 21.6 % (11.5-15.5); WBC 8.5 k/uL (3.8-10.6)
[2023-07-20 11:29] LABS: African American GFR (CKD) 71 (>60 ml/min/1.73 sqM); Anion Gap 13 mmol/L; Blood Urea Nitrogen 18 mg/dL (7-17); Calcium 8.2 mg/dL (8.4-10.2); Carbon Dioxide 20 mmol/L (22-30); Chloride 102 mmol/L (98-107); Glucose 161 mg/dL (74-99); Non-African American GFR(CKD) 61 (>60 ml/min/1.73 sqM); Potassium 4.1 mmol/L (3.5-5.1); Sodium 135 mmol/L (137-145)
[2023-07-20 12:45] LABS: Glucose,Whole Blood 156 mg/dL (70-110)
[2023-07-20 13:41] VITALS: BMI 35.1
[2023-07-20] MEDS ORDERED: NITROGLYCERIN OINT 1 INCH/GM PACKET TOPICAL SCH (18:00)
[2023-07-20] MEDS: DOXYCYCLINE 100 MG CAP PO SCH (20:37)
[2023-07-20] MEDS: FUROSEMIDE 10 MG/ML 4 ML VIAL IV SCH (21:28)
[2023-07-21 04:15] LABS: African American GFR (CKD) 60 (>60 ml/min/1.73 sqM); Anion Gap 10 mmol/L; Blood Urea Nitrogen 19 mg/dL (7-17); Calcium 8.1 mg/dL (8.4-10.2); Carbon Dioxide 21 mmol/L (22-30); Chloride 102 mmol/L (98-107); Glucose 141 mg/dL (74-99); Magnesium 1.7 mg/dL (1.6-2.3); Non-African American GFR(CKD) 52 (>60 ml/min/1.73 sqM); Potassium 3.4 mmol/L (3.5-5.1); Sodium 133 mmol/L (137-145)
[2023-07-21] MEDS ORDERED: Magnesium Replacement Protocol 1 EACH MISC MISCELLANE PRN (04:45)
[2023-07-21] MEDS ORDERED: Potassium Replacement Protocol 1 EACH MISC MISCELLANE PRN (04:45)
--- NOTE | 2023-07-21 04:58 | P.PN ---
Subjective Progress Note Date: 07/20/23 This is a pleasant 73-year-old female who presented to the hospital with continued left hip and leg pain with swelling and also having increasing shortness of breath being closely monitored. Pulmonary and cardiology following and patient is maintained on Lasix with new onset heart failure. Patient did undergo venous Doppler of the lower extremity which was negative for DVT on the left as well as a CTA as D-dimer was mildly elevated and negative for PE although there was a suspicious finding of a cavitating nodule on the right lower lobe which will require an outpatient PET scan. Procalcitonin was 0.32 and patient was initiated on antibiotics. Patient is requiring 2 L of oxygen and reports she does not wear any oxygen outpatient. Will have PT/OT therapy evaluate the patient. Review of systems: Constitutional: No reports of fatigue, fever, or chills Cardiovascular: No reports of chest pain or palpitations Respiratory: reports of continued shortness of breath, no cough GI: No reports of nausea, no reports of vomiting, no diarrhea : No reports of dysuria or retention Neurovascular: reports of generalized weakness, left leg swelling and pain All medications have been reviewed PHYSICAL EXAMINATION: GENERAL: The patient is alert and oriented x4, Well developed, well nourished. Elderly appearing, obese HEENT: Pupils are round and equally reacting to light. EOMI. no scleral icterus. No conjunctival pallor. Normocephalic, atraumatic. No pharyngeal erythema. No thyromegaly. CARDIOVASCULAR: S1 and S2 muffled PULMONARY: diminished breath sounds bilaterally with some scattered rhonchi at the bases noted. ABDOMEN: soft. Nontender on exam. obese. non-distended, normoactive bowel sounds. No palpable organomegaly. MUSCULOSKELETAL: No joint swelling or deformity. EXTREMITIES: No cyanosis, clubbing, or pedal edema. Generalized edema noted bilaterally worse on the left with some improvement since yesterday NEUROLOGICAL: Gross neurological examination did not reveal any focal deficits. Diffuse weakness SKIN: No rashes. Assessment: Shortness of breath with acute hypoxic respiratory failure secondary to CHF exacerbation New onset just of heart failure with preserved EF Right lower lobe cavitating lung nodule measuring 2.6 x 2.5 cm, will need outpatient PET Left hip pain with gait dysfunction secondary to fall, mechanical, ruled out fractures Left lower extremity swelling, ruled out DVT Elevated D-dimer, ruled out PE Diabetes mellitus, type II History of anemia, likely chronic History of COPD, not in exacerbation Peripheral vascular disease history Valvular heart disease history Hyperlipidemia Obesity with a BMI of 35.1. GI prophylaxis DVT prophylaxis Full code Plan: Recommend to continue with current medications and management with pulmonary and cardiology following Patient continues on IV Lasix twice daily and diuresing well and will follow-up with repeat labs. Recommend to replace electrolytes per protocol Encouraged elevating lower extremities while at rest and using Donnell wraps to assist with swelling PT/OT therapy to evaluate the patient Pulmonary following patient is maintained on antibiotics empirically as procalcitonin was 0.32. There was a finding on the right lobe that will require an outpatient PET scan Continue monitoring Accu-Cheks ACHS and will continue current regimen. Adjust insulins accordingly The impression and plan of care has been dictated by Alida Leal, nurse practitioner as directed. Dr. Cathi MD I have performed a history and examination and MDM of this patient, discussed the same with the dictator, and agree with the dictator's assessment and plan as written ,documented as a scribe. Based on total visit time, I have performed more than 50% of the visit. Any additional findings or plans will be noted. Objective - Vital Signs Vital signs: Vital Signs Temp 97.8 F 07/20/23 07:53 Pulse 87 07/20/23 09:34 Resp 18 07/20/23 07:53 BP 123/58 07/20/23 07:53 Pulse Ox 97 07/20/23 09:20 FiO2 Intake & Output 07/19/23 07/20/23 07/20/23 18:59 06:59 18:59 Intake Total 10 100 Output Total 1300 Balance -1290 100 Weight 81.647 kg 90 kg Intake: IV 10 0.9 10 Oral 100 Output: Urine 1300 Other: Voiding Method External Catheter External Catheter External Catheter # Voids 1 # Bowel Movements 1 - Labs CBC & Chem 7: 07/20/23 09:20 07/21/23 03:32 Labs: Abnormal Lab Results - Last 24 Hours (Table) 07/19/23 07/19/23 07/19/23 Range/Units 11:47 11:47 11:47 WBC 10.7 H (3.8-10.6) k/uL RBC 3.41 L (3.80-5.40) m/uL Hgb 7.7 L (11.4-16.0) gm/dL Hct 27.0 L (34.0-46.0) % MCV 79.2 L (80.0-100.0) fL MCH 22.6 L (25.0-35.0) pg MCHC 28.6 L (31.0-37.0) g/dL RDW 21.5 H (11.5-15.5) % Neutrophils # 8.4 H (1.3-7.7) k/uL APTT 19.2 L (22.0-30.0) sec D-Dimer (<0.60) mg/L FEU Sodium 133 L (137-145) mmol/L Carbon Dioxide 18 L (22-30) mmol/L Glucose 165 H (74-99) mg/dL Plasma Lactic Acid Boyd (0.7-2.0) mmol/L Calcium 8.2 L (8.4-10.2) mg/dL Total Protein 6.1 L (6.3-8.2) g/dL Procalcitonin (0.02-0.09) ng/mL Urine Appearance (Clear) Urine Protein (Negative) Ur Leukocyte Esterase (Negative) Urine RBC (0-5) /hpf Urine WBC (0-5) /hpf Ur Squamous Epith Cells (0-4) /hpf Urine Mucus (None) /hpf Urine Yeast (Budding) (None) /hpf 07/19/23 07/19/23 07/19/23 Range/Units 11:47 16:24 16:24 WBC (3.8-10.6) k/uL RBC 3.25 L (3.80-5.40) m/uL Hgb 7.3 L (11.4-16.0) gm/dL Hct 24.8 L (34.0-46.0) % MCV 76.4 L (80.0-100.0) fL MCH 22.4 L (25.0-35.0) pg MCHC 29.3 L (31.0-37.0) g/dL RDW 22.3 H (11.5-15.5) % Neutrophils # (1.3-7.7) k/uL APTT (22.0-30.0) sec D-Dimer 1.63 H (<0.60) mg/L FEU Sodium (137-145) mmol/L Carbon Dioxide (22-30) mmol/L Glucose (74-99) mg/dL Plasma Lactic Acid Boyd 2.5 H* (0.7-2.0) mmol/L Calcium (8.4-10.2) mg/dL Total Protein (6.3-8.2) g/dL Procalcitonin (0.02-0.09) ng/mL Urine Appearance (Clear) Urine Protein (Negative) Ur Leukocyte Esterase (Negative) Urine RBC (0-5) /hpf Urine WBC (0-5) /hpf Ur Squamous Epith Cells (0-4) /hpf Urine Mucus (None) /hpf Urine Yeast (Budding) (None) /hpf 07/19/23 07/19/23 07/19/23 Range/Units 17:14 21:11 22:40 WBC (3.8-10.6) k/uL RBC 3.14 L (3.80-5.40) m/uL Hgb 7.2 L (11.4-16.0) gm/dL Hct 24.2 L (34.0-46.0) % MCV 77.2 L (80.0-100.0) fL MCH 23.0 L (25.0-35.0) pg MCHC 29.8 L (31.0-37.0) g/dL RDW 22.1 H (11.5-15.5) % Neutrophils # (1.3-7.7) k/uL APTT (22.0-30.0) sec D-Dimer (<0.60) mg/L FEU Sodium (137-145) mmol/L Carbon Dioxide (22-30) mmol/L Glucose (74-99) mg/dL Plasma Lactic Acid Boyd (0.7-2.0) mmol/L Calcium (8.4-10.2) mg/dL Total Protein (6.3-8.2) g/dL Procalcitonin 0.32 H (0.02-0.09) ng/mL Urine Appearance Cloudy H (Clear) Urine Protein Trace H (Negative) Ur Leukocyte Esterase Moderate H (Negative) Urine RBC 9 H (0-5) /hpf Urine WBC 67 H (0-5) /hpf Ur Squamous Epith Cells 11 H (0-4) /hpf Urine Mucus Rare H (None) /hpf Urine Yeast (Budding) Occasional H (None) /hpf
[2023-07-21] MEDS: POTASSIUM CHLORIDE ER 20 MEQ TAB.ER PO SCH (04:59)
[2023-07-21] MEDS: MAGNESIUM SULFATE-D5W PMX 1 GM in DEXTROSE/WATER 1 100ML.BAG IVPB ONE (04:59)
[2023-07-21 10:06] LABS: Anisocytosis Moderate; Basophils # (A) 0.1 k/uL (0-0.2); Basophils % (A) 1 %; Eosinophils # (A) 0.3 k/uL (0-0.7); Eosinophils % (A) 4 %; HCT 25.3 % (34.0-46.0); HGB 7.2 gm/dL (11.4-16.0); Hypochromasia Marked; Lymphocytes % (A) 15 %; MCH 22.4 pg (25.0-35.0); MCHC 28.6 g/dL (31.0-37.0); MCV 78.4 fL (80.0-100.0); Mean Platelet Volume 7.9; Microcytosis Moderate; Monocytes # (A) 0.4 k/uL (0-1.0); Monocytes % (A) 6 %; Neutrophils # (A) 4.5 k/uL (1.3-7.7); Neutrophils % (A) 70 %; Platelet Count 377 k/uL (150-450); RBC 3.22 m/uL (3.80-5.40); RDW 22.2 % (11.5-15.5); WBC 6.5 k/uL (3.8-10.6)
[2023-07-21 10:28] LABS: African American GFR (CKD) 64 (>60 ml/min/1.73 sqM); Anion Gap 10 mmol/L; Blood Urea Nitrogen 19 mg/dL (7-17); Calcium 8.2 mg/dL (8.4-10.2); Carbon Dioxide 21 mmol/L (22-30); Chloride 101 mmol/L (98-107); Glucose 207 mg/dL (74-99); Magnesium 2.2 mg/dL (1.6-2.3); Non-African American GFR(CKD) 55 (>60 ml/min/1.73 sqM); Sodium 132 mmol/L (137-145)
[2023-07-21 11:57] VITALS: BP 97/59; TEMP 97.5
--- NOTE | 2023-07-21 11:57 | P.PN ---
Subjective HISTORY OF PRESENT ILLNESS: This is a 73-year-old female with a past medical history significant for severe peripheral vascular disease, hyperlipidemia, diabetes, and valvular heart disease. Patient follows in the office with Dr. Genao but has not been seen in the office since December 2021. We have been asked to see the patient in consultation for congestive heart failure. Patient examined at the bedside. Patient states she initially presented to the hospital with a chief complaint of pain in her left leg. She states that she fell 2 weeks ago and was told that she pulled a muscle but the pain has persisted. She also reports having shortness of breath over the past week. She denies any chest pain or pressure. Patient was found to be in acute heart failure and was started on IV Lasix. DIAGNOSTICS: - EKG reveals sinus mechanism with nonspecific ST-T wave changes. - Chest xray diffuse increased lung markings with prominent pulmonary vascular markings. Left lower lobe infiltrate. Correlate for atypical pulmonary edema or pneumonia. -Chest CTA: Negative for pulmonary embolism - Laboratory data: WBC 7.4. Hemoglobin 7.2. Platelet count 337. D-dimer 1.63. proBNP 3160. Procalcitonin 0.32. Sodium 133. Potassium 4.5. BUN 13. Creatinine 0.80. Troponin negative x 1 - Current home cardiac medications include Lipitor 80 mg at night, aspirin 81 mg daily, Plavix 75 mg daily. - Most recent echocardiogram this admission reveals ejection fraction 60 to 65%, mild mitral stenosis, trace to mild MR, mild to moderate TR 07/21/2023 Patient examined this morning at the bedside. Patient denies chest pain or pressure. She complains of a sore throat this morning. She states her shortness of breath has improved. She remains on nasal cannula to maintain oxygen saturations greater than 92%. PHYSICAL EXAM: VITAL SIGNS: Reviewed. GENERAL: Well-developed in no acute distress. HEENT: Head is normocephalic. Pupils are equal, round. Sclerae anicteric. Mucous membranes of the mouth are moist. Neck supple. No JVD or thyromegaly LUNGS: Respirations even and unlabored. Lungs essentially clear to auscultation bilaterally. HEART: Regular rate and rhythm. S1 and S2 heard. Diastolic murmur noted ABDOMEN: Soft. Nondistended. Nontender. EXTREMITIES: Normal range of motion. No clubbing or cyanosis. Peripheral pulses intact. No lower extremity edema NEUROLOGIC: Awake and alert. Oriented x 3. ASSESSMENT: Left leg pain, secondary to mechanical fall, CT negative for fracture New onset heart failure with preserved EF New right lower lobe cavitating lung nodule, 2.6 x 2.5 cm Valvular heart disease Peripheral vascular disease with previous lower extremity intervention, on dual antiplatelet therapy Hyperlipidemia Morbid obesity: BMI 35.1 Former nicotine dependence PLAN: Discontinue IV Lasix Begin oral Lasix 40 mg daily Pulmonary following. Plan is for outpatient PET scan Further recommendations pending patient course Nurse practitioner note has been reviewed by physician. Signing provider agrees with the documented findings, assessment, and plan of care documented by BUDGET ANALYST as a scribe. Objective - Vital Signs Vital signs: Vital Signs Temp 97.5 F L 07/21/23 11:43 Pulse 85 07/21/23 11:43 Resp 18 07/21/23 11:43 BP 97/59 07/21/23 11:43 Pulse Ox 91 L 07/21/23 11:43 FiO2 Intake & Output 07/20/23 07/21/23 07/21/23 18:59 06:59 18:59 Intake Total 1140 458 Output Total 1100 1450 Balance 40 -1450 458 Weight 90 kg Intake: Oral 1140 458 Output: Urine 1100 1450 Other: Voiding Method External Catheter External Catheter External Catheter # Voids 1 # Bowel Movements 1 - Labs CBC & Chem 7: 07/21/23 09:12 07/21/23 09:12 Labs: Abnormal Lab Results - Last 24 Hours (Table) 07/20/23 07/21/23 07/21/23 Range/Units 12:42 03:32 09:12 RBC 3.22 L (3.80-5.40) m/uL Hgb 7.2 L (11.4-16.0) gm/dL Hct 25.3 L (34.0-46.0) % MCV 78.4 L (80.0-100.0) fL MCH 22.4 L (25.0-35.0) pg MCHC 28.6 L (31.0-37.0) g/dL RDW 22.2 H (11.5-15.5) % Sodium 133 L (137-145) mmol/L Potassium 3.4 L (3.5-5.1) mmol/L Carbon Dioxide 21 L (22-30) mmol/L BUN 19 H (7-17) mg/dL Creatinine 1.05 H (0.52-1.04) mg/dL Glucose 141 H (74-99) mg/dL POC Glucose (mg/dL) 156 H (70-110) mg/dL Calcium 8.1 L (8.4-10.2) mg/dL 07/21/23 Range/Units 09:12 RBC (3.80-5.40) m/uL Hgb (11.4-16.0) gm/dL Hct (34.0-46.0) % MCV (80.0-100.0) fL MCH (25.0-35.0) pg MCHC (31.0-37.0) g/dL RDW (11.5-15.5) % Sodium 132 L (137-145) mmol/L Potassium (3.5-5.1) mmol/L Carbon Dioxide 21 L (22-30) mmol/L BUN 19 H (7-17) mg/dL Creatinine (0.52-1.04) mg/dL Glucose 207 H (74-99) mg/dL POC Glucose (mg/dL) (70-110) mg/dL Calcium 8.2 L (8.4-10.2) mg/dL Microbiology - Last 24 Hours (Table) 07/20/23 15:58 Gram Stain - Preliminary Sputum 07/19/23 16:15 Blood Culture - Preliminary Blood 07/19/23 16:00 Blood Culture - Preliminary Blood
--- NOTE | 2023-07-21 12:29 | P.PN ---
Subjective Progress Note Date: 07/21/23 Principal diagnosis: Pneumonia. Patient is a 73-year-old white female with past medical history significant for smoking-related interstitial fibrosis, rectal cancer status post chemo/radiation, obstructive sleep apnea, hyperlipidemia, diabetes mellitus, hypothyroidism, frequent urinary tract infections, peripheral vascularocclusive disease, prior right toe amputations, and former tobacco dependence. She does follow in the pulmonary office with Dr. Irving. Patient presented to the emergency room yesterday morning primarily complaining of progressively worsening shortness of breath over the last 2 days. She states that she has been coughing up brown sputum. No chest pain or hemoptysis. Denies weight loss. Denies fever. She has had some increased lower extremity swelling. She is currently sitting up in bed, on 3 L/min nasal cannula, in no acute distress. She is also mentioning some left hip pain and right foot pain, she may have stepped on some glass. CT of the left hip without contrast did not show any evidence of displaced or impacted left hip fracture. X-ray of the right foot does not show any radiopaque foreign body in the right foot. Initial chest x- ray showed increased interstitial edema and prominent vascular markings. There is also a possible left lower lobe infiltrate. D dimer was elevated, this was followed by chest CT angio protocol. This did not show any evidence of pulmonary embolism. It did show cardiomegaly with trace bilateral pleural effusions with scattered reticular and groundglass opacities. Likely congestive heart failure superimposed on interstitial lung disease. There is a right lower lobe cavitating pulmonary nodule measuring 2.6 x 2.5 cm. Differential includes malignancy, aspergilloma, MAC infection, among other things. CBC from yesterday as a WBC count of 7.4, hemoglobin 7.2, hematocrit 24.2, platelets 337. BMP from yesterday: Sodium 133, potassium 4.5, chloride 106, serum bicarb 18, BUN 13, cre atinine 0.8, glucose 165. UA is contaminated. Lactic acid level 1.4. LFTs not elevated. Troponin 0.03. NT proBNP elevated at 3160. Patient was started on Lasix 20 mg twice daily. Procalcitonin also elevated at 0.32. Patient was placed on Azactam in the emergency room. Negative for influenza, RSV, COVID. Afebrile. Vital signs are stable. Progress note dated July 21, 2023. The patient is seen today in room 379. Currently, the patient is on 2 L of oxygen. She is receiving Rocephin, and doxycycline. She is feeling a bit better today. She denies any worsening shortness of breath, cough, wheezing, chest tightness, or phlegm production. She is coughing up a small amount of brown phlegm. Current labs include a white count 6.5, hemoglobin 7.2, hematocrit 25.3, and a platelet count of 377,000. Sodium 132, potassium 4, chlorides 101, CO2 21, BUN 19, creatinine 1.01. Glucose is 207. Calcium is 8.2. Objective - Vital Signs Vital signs: Vital Signs Temp 97.5 F L 07/21/23 11:43 Pulse 85 07/21/23 11:43 Resp 18 07/21/23 11:43 BP 97/59 07/21/23 11:43 Pulse Ox 91 L 07/21/23 11:43 FiO2 Intake & Output 07/20/23 07/21/23 07/21/23 18:59 06:59 18:59 Intake Total 1140 458 Output Total 1100 1450 Balance 40 -1450 458 Weight 90 kg Intake: Oral 1140 458 Output: Urine 1100 1450 Other: Voiding Method External Catheter External Catheter External Catheter # Voids 1 # Bowel Movements 1 - Exam No acute distress, oriented 3. Currently on 2 L. No audible wheezing, use of accessory muscles, or conversational dyspnea. HEENT examination is grossly unremarkable. Mucous membranes are moist. No oral lesions. Neck supple. Full range of motion. No adenopathy thyromegaly or neck vein distention. Cardiovascular examination reveals regular rhythm rate. S1-S2 normal. No S3 or S4. No discernible murmur noted. Heart rate 85 bpm. Lungs reveal scattered rhonchi, and crackles. Breath sounds equal. No wheezes. Breath sounds are equal bilaterally. Saturations are 93% on 2 L. Abdomen soft bowel sounds are heard. No masses or tenderness. Extremities are intact. No cyanosis clubbing or edema. Skin is without rash or lesion. Neurologic examination is brief but nonfocal. - Labs CBC & Chem 7: 07/21/23 09:12 07/21/23 09:12 Labs: Abnormal Lab Results - Last 24 Hours (Table) 07/20/23 07/21/2324 Range/Units 12:42 03:32 09:12 RBC 3.22 L (3.80-5.40) m/uL Hgb 7.2 L (11.4-16.0) gm/dL Hct 25.3 L (34.0-46.0) % MCV 78.4 L (80.0-100.0) fL MCH 22.4 L (25.0-35.0) pg MCHC 28.6 L (31.0-37.0) g/dL RDW 22.2 H (11.5-15.5) % Sodium 133 L (137-145) mmol/L Potassium 3.4 L (3.5-5.1) mmol/L Carbon Dioxide 21 L (22-30) mmol/L BUN 19 H (7-17) mg/dL Creatinine 1.05 H (0.52-1.04) mg/dL Glucose 141 H (74-99) mg/dL POC Glucose (mg/dL) 156 H (70-110) mg/dL Calcium 8.1 L (8.4-10.2) mg/dL 07/21/23 Range/Units 09:12 RBC (3.80-5.40) m/uL Hgb (11.4-16.0) gm/dL Hct (34.0-46.0) % MCV (80.0-100.0) fL MCH (25.0-35.0) pg MCHC (31.0-37.0) g/dL RDW (11.5-15.5) % Sodium 132 L (137-145) mmol/L Potassium (3.5-5.1) mmol/L Carbon Dioxide 21 L (22-30) mmol/L BUN 19 H (7-17) mg/dL Creatinine (0.52-1.04) mg/dL Glucose 207 H (74-99) mg/dL POC Glucose (mg/dL) (70-110) mg/dL Calcium 8.2 L (8.4-10.2) mg/dL Microbiology - Last 24 Hours (Table) 07/20/23 15:58 Gram Stain - Preliminary Sputum 07/19/23 16:15 Blood Culture - Preliminary Blood 07/19/23 16:00 Blood Culture - Preliminary Blood Assessment and Plan Assessment: Acute on chronic shortness of breath, likely secondary to exacerbation of congestive heart failure, unknown type, superimposed on patient's known history of interstitial lung disease. New right lower lobe cavitating 2.6 x 2.5 cm lung nodule, differential includes neoplasm, aspergilloma, MAC infection, etc. History of smoking-related interstitial fibrosis, biopsy-proven. History of rectal cancer, status post chemo and radiation. Left hip pain, CT of the left hip without contrast did not show any evidence of displaced or impacted left hip fracture. History of peripheral vascular occlusive disease, status post right femoral tibial bypass. History of previous right toe amputation. Chronic microcytic, hypochromic anemia. History obstructive sleep apnea. History of hyperlipidemia. History of CVA/TIA. History of hypothyroidism. History of frequent urinary tract infections. Former tobacco smoker. Plan: Plan dated July 21, 2023. The patient is seen today in room 379. She is on 2 L of oxygen. She is not manifesting any signs or symptoms of respiratory distress. There is no conversational dyspnea or use of accessory muscles. The patient continues on Rocephin and doxycycline. Labs, x-rays, and medications reviewed. For the new cavitating lesion in the right lung, we will plan on an outpatient PET scan. No additional recommendations are made. We will continue to follow make recommendations along the way. Prognosis is guarded. Time with Patient: Less than 30
[2023-07-21 13:53] VITALS: PULSE 100
[2023-07-22] MEDS ORDERED: FUROSEMIDE 40 MG TAB PO SCH (09:00)
--- NOTE | 2023-07-23 06:41 | P.DS ---
Providers Date of admission: 07/20/23 10:17 Expected date of discharge: 07/21/23 Attending physician: Jw Collier Consults: 07/19/23 15:11 Consult Physician Routine Consulting Provider: [facility] Reason/Comments: Pulmonary edema Do you want consulting provider notified?: Yes 07/19/23 15:24 Consult Physician Routine Consulting Provider: Oswald Irving Reason/Comments: sob Do you want consulting provider notified?: Yes Primary care physician: Lisseth Isaac [facility] Course: Final diagnosis Shortness of breath with acute hypoxic respiratory failure secondary to CHF exacerbation New onset congestive heart failure with preserved EF Right lower lobe cavitating lung nodule measuring 2.6 x 2.5 cm, will need outpatient PET Left hip pain with gait dysfunction secondary to fall, mechanical, ruled out fractures Left lower extremity swelling, ruled out DVT Elevated D-dimer, ruled out PE Diabetes mellitus, type II History of anemia, likely chronic History of COPD, not in exacerbation Peripheral vascular disease history Valvular heart disease history Hyperlipidemia Obesity with a BMI of 35.1. GI prophylaxis DVT prophylaxis Full code Discharge disposition Patient is being discharged in a stable condition with guarded prognosis to home with home care being arranged. Patient will follow-up with Dr. Isaac in the outpatient setting upon discharge. Patient is to continue with oral antibiotics along with Lasix and close outpatient follow-up with cardiology as well as pulmonary as scheduled. Patient is requiring 2 L of oxygen via nasal cannula to manage CHF. Patient will need outpatient testing for findings on CT chest of the lungs including PET scan which will be arranged with pulmonary. Total time taken is greater than 35 minutes. Hospital course This is a 73-year-old female who was recently admitted with shortness of breath and lower extremity edema with new onset CHF being closely monitored. Patient being evaluated by pulmonary along with cardiology maintained on IV Lasix and diuresing well. Patient will transition to oral Lasix and continue antibiotics on discharge. Home oxygen evaluation was done and patient is requiring 2 L. Case management arranging for discharge planning including home oxygen as well as home care. Patient evaluated by physical therapy recommending rehab although patient is adamant she is going home. There was a noted nodule on the right lung which will require outpatient follow-up and PET scan. This is to be arranged by pulmonary. Patient has been cleared by consultations for discharge home. Currently no reports of chest pain, shortness of breath, or palpitations. Patient is afebrile. No reports of nausea or vomiting and patient is tolerating diet. Patient will be discharged home today. High risk for readmissions given patient's comorbidities, generalized weakness, medical debility. Physical exam: Gen: This is a 73-year-old female who is awake, alert and oriented x 3, well- developed, elderly appearing, obese HEENT: Head is atraumatic, normocephalic. Pupils equal, round. Sclerae is anicteric. NECK: Supple. No JVD. No lymphadenopathy. No thyromegaly. LUNGS: Diminished breath sounds bilaterally otherwise clear to auscultation. No wheezes or rhonchi. No intercostal retractions. HEART: S1, S2 are muffled ABDOMEN: Soft. Obese. Bowel sounds are present. No masses. No tenderness. EXTREMITIES: No pedal edema. No calf tenderness. Bilateral lower extremity edema NEUROLOGICAL: Patient is awake, alert and oriented x3. Cranial nerves 2 through 12 are grossly intact. Diffusely weak Please refer to medication reconciliation sheet for a list of medications. The impression and plan of care has been dictated by Alida Leal, Nurse Practitioner as directed. Dr. Cathi MD I have performed a history and examination and MDM of this patient, discussed the same with the dictator, and agree with the dictator's assessment and plan as written ,documented as a scribe. Based on total visit time, I have performed more than 50% of the visit. Patient Condition at Discharge: Fair Plan - Discharge Summary Discharge Rx Participant: No New Discharge Prescriptions: New Dapagliflozin Propanediol [Farxiga] 10 mg PO DAILY #30 tab Furosemide [Lasix] 40 mg PO DAILY #30 tab Doxycycline [Vibramycin] 100 mg PO BID 7 Days #14 cap Continue Clopidogrel [Plavix] 75 mg PO DAILY Levothyroxine Sodium [Synthroid] 25 mcg PO DAILY Gabapentin [Neurontin] 300 mg PO BID Gabapentin 600 mg PO BID Atorvastatin [Lipitor] 80 mg PO HS FLUoxetine HCL [PROzac] 40 mg PO DAILY Aspirin 81 mg PO DAILY #30 tab carBAMazepine [carBAMazepine ER] 100 mg PO BID ALPRAZolam [Xanax] 0.25 mg PO DAILY PRN PRN Reason: Anxiety levETIRAcetam [Keppra] 750 mg PO BID Discharge Medication List Clopidogrel [Plavix] 75 mg PO DAILY 08/15/16 [History] Levothyroxine Sodium [Synthroid] 25 mcg PO DAILY 08/15/16 [History] FLUoxetine HCL [PROzac] 40 mg PO DAILY 07/25/20 [History] Gabapentin [Neurontin] 300 mg PO BID 08/03/22 [History] Aspirin 81 mg PO DAILY #30 tab 08/10/22 [Rx] ALPRAZolam [Xanax] 0.25 mg PO DAILY PRN 04/04/23 [History] Atorvastatin [Lipitor] 80 mg PO HS 04/04/23 [History] Gabapentin 600 mg PO BID 04/04/23 [History] carBAMazepine [carBAMazepine ER] 100 mg PO BID 04/04/23 [History] levETIRAcetam [Keppra] 750 mg PO BID 07/19/23 [History] Dapagliflozin Propanediol [Farxiga] 10 mg PO DAILY #30 tab 07/21/23 [Rx] Doxycycline [Vibramycin] 100 mg PO BID 7 Days #14 cap 07/21/23 [Rx] Furosemide [Lasix] 40 mg PO DAILY #30 tab 07/21/23 [Rx] Follow up Appointment(s)/Referral(s): Reji Genao MD [STAFF PHYSICIAN] - 08/09/23 1:45 pm [facility] [NON-STAFF] - Oswald Irving DO [Doctor of Osteopathic Medicine] - 08/04/23 9:15 am [facility] [NON-STAFF] - Lisseth Isaac MD [Primary Care Provider] - 07/29/23 1:15 pm Ambulatory/Diagnostic Orders: Complete Blood Count w/diff [LAB.AMB] Time Frame: 3 Days, Location: None Selected Patient Instructions/Handouts: Heart Failure (DC) Activity/Diet/Wound Care/Special Instructions: Activity limited until follow-up Follow-up with primary care provider Follow-up with cardiology this week Follow-up with pulmonary outpatient to discuss PET scan for right lung nodule Continue to elevate lower extremities while at rest Monitor fluid intake and recommend fluid restrictions of 45 ounces throughout the whole day Repeat labs to monitor kidney functions and electrolytes in 2 to 3 days Patient will require 2 L of oxygen via nasal cannula to manage CHF Discharge Disposition: HOME WITH HOME HEALTH SERVICES
== END 2023-07-21 14:59 | disposition home health service (06) | DRG 291 ==
LOC: EC 11:31 → 3SCARD 15:16 → OBSVTOIN 07-20 10:17 → 3SCARD 07-20 18:21
PROVIDERS: ADMIT Hospitalist; ATTEND Hospitalist
DX: I11.0 Hypertensive heart disease with heart failure (principal); I50.31 Acute diastolic (congestive) heart failure; J96.01 Acute respiratory failure with hypoxia; E87.1 Hypo-osmolality and hyponatremia; J84.9 Interstitial pulmonary disease, unspecified; D50.9 Iron deficiency anemia, unspecified; Z92.21 Personal history of antineoplastic chemotherapy; Z92.3 Personal history of irradiation; Z85.048 Personal history of other malignant neoplasm of rectum, rectosigmoid junction, and anus; E66.01 Morbid (severe) obesity due to excess calories; Z68.35 Body mass index [BMI] 35.0-35.9, adult; E11.51 Type 2 diabetes mellitus with diabetic peripheral angiopathy without gangrene; E78.5 Hyperlipidemia, unspecified; Z87.891 Personal history of nicotine dependence; I08.1 Rheumatic disorders of both mitral and tricuspid valves; F40.240 Claustrophobia; F32.A Depression, unspecified; M25.552 Pain in left hip; W18.30XA Fall on same level, unspecified, initial encounter; G47.33 Obstructive sleep apnea (adult) (pediatric); E03.9 Hypothyroidism, unspecified; W25.XXXA Contact with sharp glass, initial encounter; M79.671 Pain in right foot; Z99.81 Dependence on supplemental oxygen; F41.9 Anxiety disorder, unspecified; R79.1 Abnormal coagulation profile; R91.1 Solitary pulmonary nodule; R26.9 Unspecified abnormalities of gait and mobility; Z88.1 Allergy status to other antibiotic agents; Z88.0 Allergy status to penicillin; Z79.02 Long term (current) use of antithrombotics/antiplatelets; Z79.899 Other long term (current) drug therapy; Z79.890 Hormone replacement therapy; Z79.82 Long term (current) use of aspirin
CPT/HCPCS: 36415; 71046; 71275; 80048; 80053; 81001; 83605; 83735; 83880; 84145; 84484; 85025; 85379; 85610; 85730; 87040; 87070; 87077; 87186; 87205; 87449; 87636; 90471; 90715; 93005; 93306; 94640; 94760; 96365; 96366; 96375; 99285

== ENCOUNTER 2023-08-08 11:50 | Observation (INO) | payer MEDICARE ==
--- NOTE | 2023-08-08 12:26 | ED ---
Chest Pain HPI - General Chief Complaint: Chest Pain Stated Complaint: Chest pain Time Seen by Provider: 08/08/23 12:00 Source: patient, EMS, RN notes reviewed, old records reviewed Mode of arrival: EMS Limitations: no limitations - History of Present Illness Initial Comments: 73-year-old female with a history of COPD CVA diabetes peripheral vascular di sease thyroid disease former smoker recent amputation to her right toes who presents by EMS with complaints of the onset of anterior chest pressure that started last night mostly on the left side with radiation to the shoulders and back. She was seen by EMS she was given nitroglycerin which did help the discomfort which unfortunately she states it started to come back she was given 324 of aspirin. She has no known history of heart disease. She also states she had a cough with some yellow-colored phlegm with some brown tinge. No fevers chills or sweats. She does complain of some shortness of breath. She states she is supposed to be getting a PET scan to evaluate a lung mass. She is on Plavix but no other blood thinners. MD Complaint: chest pain, other - Related Data Home Medications Medication Instructions Recorded Confirmed Clopidogrel [Plavix] 75 mg PO DAILY 08/15/16 07/19/23 Levothyroxine Sodium [Synthroid] 25 mcg PO DAILY 08/15/16 07/19/23 FLUoxetine HCL [PROzac] 40 mg PO DAILY 07/25/20 07/19/23 Gabapentin [Neurontin] 300 mg PO BID 08/03/22 07/19/23 ALPRAZolam [Xanax] 0.25 mg PO DAILY PRN 04/04/23 07/19/23 Atorvastatin [Lipitor] 80 mg PO HS 04/04/23 07/19/23 Gabapentin 600 mg PO BID 04/04/23 07/19/23 carBAMazepine [carBAMazepine ER] 100 mg PO BID 04/04/23 07/19/23 levETIRAcetam [Keppra] 750 mg PO BID 07/19/23 07/19/23 Previous Rx's Medication Instructions Recorded Aspirin 81 mg PO DAILY #30 tab 08/10/22 Dapagliflozin Propanediol [Farxiga] 10 mg PO DAILY #30 tab 07/21/23 Doxycycline [Vibramycin] 100 mg PO BID 7 Days #14 cap 07/21/23 Furosemide [Lasix] 40 mg PO DAILY #30 tab 07/21/23 Allergies Allergy/AdvReac Type Severity Reaction Status Date / Time erythromycin base Allergy Rash/Hives Verified 08/08/23 12:06 Fish Containing Products Allergy Anaphylaxis Verified 08/08/23 12:06 Penicillins Allergy Anaphylaxis Verified 08/08/23 12:06 shellfish derived [Shellfish] Allergy Anaphylaxis Verified 08/08/23 12:06 levofloxacin [From Levaquin] AdvReac Rash/Hives, Verified 08/08/23 12:06 swelling Review of Systems ROS Statement: Those systems with pertinent positive or pertinent negative responses have been documented in the HPI. ROS Other: All systems not noted in ROS Statement are negative. 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 ,States yeast infection in genital area and folds of abd., diet controlled diabetes., has stimulator left hip for back pain (not working)., PAD. History of Any Multi-Drug Resistant Organisms: None Reported Past Surgical History: Appendectomy, Back Surgery, Bladder Surgery, Ch olecystectomy, Hysterectomy, Joint Replacement Additional Past Surgical History / Comment(s): Bilateral knee replacements, right shoulder rotator cuff X2, bilateral iliac femoral stents, bladder suspension X2, right Mediport removed, left lung biopsy, lymph node biopsy, left groin biopsy(malignant). bilateral carpal tunnel, bilateral cataracts, right shoulder replacement. stimulator in hip (left) for back, bilateral iliac arterial stents., R femoral stent Past Anesthesia/Blood Transfusion Reactions: No Reported Reaction, Family History of Problems w/ Anesthesia Additional Past Anesthesia/Blood Transfusion Reaction / Comment(s): Claustrophobic., vomited and aspirated during colonoscopy. son had difficulty waking up after surgery Past Psychological History: Anxiety, Depression Smoking Status: Former smoker Past Alcohol Use History: None Reported Past Drug Use History: None Reported - Past Family History Sister(s) Family Medical History: Cancer Additional Family Medical History / Comment(s): Lung cancer. other sister heart failure Brother(s) Family Medical History: Cancer Additional Family Medical History / Comment(s): Lung cancer. Mother Family Medical History: Cancer Additional Family Medical History / Comment(s): Drugs and alcohol - of. Ear lobe cancer. Father Family Medical History: Cancer, Hyperlipidemia, Hypertension Additional Family Medical History / Comment(s): Skin cancer. General Exam - General Exam Comments Initial Comments: This is a well-developed well-nourished awake alert oriented x 4 male Limitations: no limitations General appearance: alert, in no apparent distress Head exam: Present: atraumatic, normocephalic, normal inspection Eye exam: Present: normal appearance, PERRL, EOMI. Absent: scleral icterus, conjunctival injection, periorbital swelling ENT exam: Present: normal exam, mucous membranes moist Neck exam: Present: normal inspection, full ROM, other. Absent: tenderness, meningismus, lymphadenopathy Respiratory exam: Present: normal lung sounds bilaterally. Absent: respiratory distress, wheezes, rales, rhonchi, stridor, chest wall tenderness Cardiovascular Exam: Present: regular rate, normal rhythm, normal heart sounds. Absent: systolic murmur, diastolic murmur, rubs, gallop, clicks GI/Abdominal exam: Present: soft, normal bowel sounds. Absent: distended, tenderness, guarding, rebound, rigid, bruit, pulsatile mass Extremities exam: Present: full ROM, normal capillary refill, other (Healing wounds on the right foot status post all the toes being amputated. This was last fall she states). Absent: tenderness, pedal edema, joint swelling, calf tenderness Back exam: Present: normal inspection Neurological exam: Present: alert, oriented X3, CN II-XII intact Psychiatric exam: Present: normal affect, normal mood Skin exam: Present: warm, dry, intact, normal color. Absent: rash Course Vital Signs 08/08/23 08/08/23 11:53 13:13 Temperature 97.1 F L Pulse Rate 74 77 Respiratory 18 18 Rate Blood Pressure 113/51 102/55 O2 Sat by Pulse 100 96 Oximetry Chest Pain MDM - MDM The patient did have relief from nitroglycerin no further chest pain at this time I did discuss findings with her the patient will be admitted the case to be discussed with Dr. Isaac. Was pt. sent in by a medical professional or institution (, [facility], [facility], urgent care, hospital, or intermediate...) When possible be specific @ -No Did you speak to anyone other than the patient for history (EMS, parent, family, police, friend...)? What history was obtained from this source @ -No Did you review nursing and triage notes (agree or disagree)? Why? @ -I reviewed and agree with nursing and triage notes Were old charts reviewed (outside hosp., previous admission, EMS record, old EKG, old radiological studies, urgent care reports/EKG's, intermediate records)? Report findings @ -Old charts were reviewed Differential Diagnosis (chest pain, altered mental status, abdominal pain women, abdominal pain men, vaginal bleeding, weakness, fever, dyspnea, syncope, headache, dizziness, GI bleed, back pain, seizure, CVA, palpatations, mental health, musculoskeletal)? @ -Chest pain EKG interpreted by me (3pts min.). @ -As above EKG interpreted by me normal sinus rhythm at 72 parable 160 QRS duration 77 QT/QTc 401/[address]-T wave changes this appears consistent with an EKG dated 07/19/2023 X-rays interpreted by me (1pt min.). @ -X-ray interpreted by me evidence of diffuse interstitial opacities and a patchy left lower lobe opacity seen earlier. CT interpreted by me (1pt min.). @ -None done U/S interpreted by me (1pt. min.). @ -None done What testing was considered but not performed or refused? (CT, X-rays, U/S, labs)? Why? @ -None What meds were considered but not given or refused? Why? @ -None Did you discuss the management of the patient with other professionals (professionals i.e. , [facility], [facility], lab, RT, psych nurse, social welfare research worker, compressed gases tester, teacher, trust officer, case management assistant)? Give summary @ -Dr. Isaac Was smoking cessation discussed for >3mins.? @ -No Was critical care preformed (if so, how long)? @ -31 minutes Were there social determinants of health that impacted care today? How? (Homelessness, low income, unemployed, alcoholism, drug addiction, transportation, low edu. Level, literacy, decrease access to med. care, long-term, rehab)? @ -No Was there de-escalation of care discussed even if they declined (Discuss DNR or withdrawal of care, Hospice)? DNR status @ -No What co-morbidities impacted this encounter? (DM, HTN, Smoking, COPD, CAD, Cancer, CVA, ARF, Chemo, Hep., AIDS, mental health diagnosis, sleep apnea, morbid obesity)? @ -Possible lung mass, CVA, COPD, diabetes, peripheral vascular disease Was patient admitted / discharged? Hospital course, mention meds given and route, prescriptions, significant lab abnormalities, going to OR and other pertinent info. @ -Hospital course patient was admitted for inpatient evaluation and treatment and cardiology consultation Undiagnosed new problem with uncertain prognosis? @ -No Drug Therapy requiring intensive monitoring for toxicity (Heparin, Nitro, Insulin, Cardizem)? @ -No Were any procedures done? @ -No Diagnosis/symptom? @ -Acute chest pain, left lung mass Acute, or Chronic, or Acute on Chronic? @ -Acute Uncomplicated (without systemic symptoms) or Complicated (systemic symptoms)? @ -Default Side effects of treatment? @ -No Exacerbation, Progression, or Severe Exacerbation? @ -No Poses a threat to life or bodily function? How? (Chest pain, USA, NM, pneumonia, PE, COPD, DKA, ARF, appy, cholecystitis, CVA, Diverticulitis, Homicidal, Suicidal, threat to staff... and all critical care pts) @ -Potential, chest pain Critical Care Time Critical Care Time: Yes Total Critical Care Time: 31 Disposition Clinical Impression: Chest pain, Lung mass, History of COPD, Unstable angina Disposition: ADMITTED IP TO THIS [facility] Condition: Stable Referrals: Lisseth Isaac MD [Primary Care Provider] - 1-2 days Time of Disposition: 14:40 Decision Date: 08/08/23 Decision Time: 14:40
[2023-08-08] MEDS: SODIUM CHLORIDE 0.9% 500 ML 500 ML IV STA (12:27)
[2023-08-08] MEDS: SODIUM CHLORIDE 0.9% 1,000 ML IV STA (12:32)
[2023-08-08] MEDS: NITROGLYCERIN SL TABS 0.4 MG TAB SUBLINGUAL STA (12:32)
[2023-08-08 12:46] LABS: Anisocytosis Marked; Basophils % (A) 1 %; Eosinophils # (A) 0.4 k/uL (0-0.7); Eosinophils % (A) 4 %; HCT 31.3 % (34.0-46.0); Hypochromasia Marked; Lymphocytes # (A) 1.6 k/uL (1.0-4.8); Lymphocytes % (A) 19 %; MCH 24.7 pg (25.0-35.0); MCHC 29.8 g/dL (31.0-37.0); MCV 83.1 fL (80.0-100.0); Mean Platelet Volume 7.7; Microcytosis Moderate; Monocytes # (A) 0.5 k/uL (0-1.0); Monocytes % (A) 6 %; Neutrophils # (A) 5.6 k/uL (1.3-7.7); Neutrophils % (A) 67 %; Platelet Count 434 k/uL (150-450); RBC 3.77 m/uL (3.80-5.40); RDW 24.8 % (11.5-15.5); WBC 8.4 k/uL (3.8-10.6)
--- NOTE | 2023-08-08 12:55 | XR ---
EXAMINATION TYPE: XR chest 2V DATE OF EXAM: 08/08/2023 COMPARISON: 07/20/2023 HISTORY: 73-year-old female with chest pain TECHNIQUE: AP and lateral views FINDINGS: Reverse right shoulder plasty. Spinal stimulator recent along the mid to lower thoracic spinal canal. Heart upper limits of normal in size. Diffuse bilateral interstitial opacities and patchy left basil ar opacity persist without significant change. No significant pleural effusion. IMPRESSION: Similar diffuse interstitial opacity/lung disease. Patchy left lower lung opacity also similar.
[2023-08-08 12:58] LABS: ALT 18 U/L (4-34); AST 27 U/L (14-36); African American GFR (CKD) 78 (>60 ml/min/1.73 sqM); Albumin 3.5 g/dL (3.5-5.0); Alkaline Phosphatase 84 U/L (38-126); Anion Gap 4 mmol/L; Blood Urea Nitrogen 16 mg/dL (7-17); Calcium 8.7 mg/dL (8.4-10.2); Carbon Dioxide 26 mmol/L (22-30); Chloride 105 mmol/L (98-107); Glucose 146 mg/dL (74-99); Lipase 219 U/L (23-300); Magnesium 2.1 mg/dL (1.6-2.3); Non-African American GFR(CKD) 67 (>60 ml/min/1.73 sqM); Potassium 5.3 mmol/L (3.5-5.1); Sodium 135 mmol/L (137-145); Total Bilirubin 0.4 mg/dL (0.2-1.3); Total Protein 6.1 g/dL (6.3-8.2)
[2023-08-08 13:03] LABS: HGB 9.3 gm/dL (11.4-16.0)
[2023-08-08 13:05] LABS: NT-Pro-B-Type Natriuretic Pept 703 pg/mL
[2023-08-08 13:17] LABS: INR 0.9 (<1.2); Partial Thromboplastin Time 24.8 sec (22.0-30.0)
[2023-08-08] MEDS ORDERED: NITROGLYCERIN SL TABS 0.4 MG TAB SUBLINGUAL PRN (14:41)
[2023-08-08] MEDS ORDERED: ALPRAZolam 0.25 MG TAB PO PRN (15:27)
[2023-08-08] MEDS: ATORVASTATIN 80 MG TAB PO SCH (21:53)
[2023-08-08] MEDS: GABAPENTIN 300 MG CAP PO SCH ×2 (21:53)
[2023-08-08] MEDS: carBAMazepine 100 MG TAB.ER.12H PO SCH (21:55)
[2023-08-09] MEDS ORDERED: HYDROcodone/APAP 7.5-325MG 1 EACH TAB PO PRN (04:12)
[2023-08-09] MEDS: LEVOTHYROXINE 25 MCG TAB PO SCH (06:17)
[2023-08-09] MEDS ORDERED: ASPIRIN 325 MG TAB PO SCH (09:00)
[2023-08-09] MEDS: FLUoxetine HCL 20 MG CAP PO SCH (09:04)
[2023-08-09] MEDS: CLOPIDOGREL 75 MG TAB PO SCH (09:04)
[2023-08-09] MEDS: ASPIRIN 81 MG PO SCH (09:04)
[2023-08-09] MEDS: FUROSEMIDE 40 MG TAB PO SCH (09:05)
--- NOTE | 2023-08-09 10:06 | P.CRDCN ---
History of Present Illness History of present illness: HISTORY OF PRESENT ILLNESS: This is a 73-year-old female with a past medical history significant for severe peripheral vascular disease, hyperlipidemia, diabetes, and valvular heart disea se. Patient follows in the office with Dr. Genao but has not been seen in the office in December 2021. We have been asked to see the patient in consultation for chest pain. Patient examined at the bedside. Patient states she went to bed on Wednesday night and developed pain on the left side of her ribs. She states the pain was worse with deep inspiration. She states the pain kept her up most of the night and the following morning her family recommended she come to the emergency room for further evaluation. The patient was recently found to have a right lower lobe cavitating lung nodule. Patient was supposed to have a PET scan performed on an outpatient basis. Patient's vitals are stable. Patient was found to have elevated D-dimer at 1.91. During patient's recent hospitalization earlier this month patient also had an elevated D-dimer. She underwent CT at that time which was negative for PE. DIAGNOSTICS: - EKG reveals sinus mechanism with no signs of acute ischemia. - Chest xray similar diffuse interstitial opacities/lung disease. Patchy left lower lung opacity also similar. - Laboratory data: WBC 8.4. Hemoglobin 9.3. Platelet count 434. Sodium 135. Potassium 5.3. BUN 16. Creatinine 0.86. Troponin negative x 3. proBNP 703. - Current home cardiac medications include aspirin 81 mg daily, Lipitor 80 mg at night, Plavix 75 mg daily, Lasix 40 mg twice a day. - Most recent echocardiogram obtained in July 2023 revealed ejection fraction 60 to 65%, mild mitral stenosis, trace to mild MR, mild AR, mild to moderate tricuspid regurgitation REVIEW OF SYSTEMS: At the time of my exam: CONSTITUTIONAL: Denies fever or chills. HEENT: Denies blurred vision, vision changes, or eye pain. Denies hemoptysis CARDIOVASCULAR: Denies chest pain. Denies orthopnea. Denies PND. Denies palpitations RESPIRATORY: Denies shortness of breath. GASTROINTESTINAL: Denies abdominal pain. Denies nausea or vomiting. HEMATOLOGIC: Denies bleeding disorders. GENITOURINARY: Denies any blood in urine. SKIN: Denies pruitis. Denies rash. PHYSICAL EXAM: VITAL SIGNS: Reviewed. GENERAL: Well-developed in no acute distress. HEENT: Head is normocephalic. Pupils are equal, round. Sclerae anicteric. Mucous membranes of the mouth are moist. Neck supple. No JVD or thyromegaly LUNGS: Respirations even and unlabored. Lungs essentially clear to auscultation bilaterally. HEART: Regular rate and rhythm. S1 and S2 heard. Diastolic murmur noted. ABDOMEN: Soft. Nondistended. Nontender. EXTREMITIES: Normal range of motion. No clubbing or cyanosis. Peripheral pulses intact. No lower extremity edema NEUROLOGIC: Awake and alert. Oriented x 3. ASSESSMENT: Chest pain, noncardiac, appears pleuritic, troponin negative x 3 Recent hospitalization for new onset heart failure, July 2023 Recently found right lower lobe cavitating lung nodule, 2.6 x 2.5 cm, patient to have outpatient PET scan Valvular heart disease Peripheral vascular disease with previous lower extremity intervention, on dual antiplatelet therapy Hyperlipidemia Morbid obesity: BMI 32.4 Former nicotine dependence PLAN: An acute coronary event has been ruled out Resume home cardiac medications No need to repeat echocardiogram as this was performed earlier this month Recommend further workup of recently found lung mass Primary medicine to address elevated D-dimer No further inpatient recommendations from a cardiac standpoint We will sign off. Please reconsult if needed. Nurse practitioner note has been reviewed by physician. Signing provider agrees with the documented findings, assessment, and plan of care documented by [employer] as a scribe. 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 ,States yeast infection in genital area and folds of abd., diet controlled diabetes., has stimulator left hip for back pain (not working)., PAD. History of Any Multi-Drug Resistant Organisms: None Reported Past Surgical History: Appendectomy, Back Surgery, Bladder Surgery, Cholecystectomy, Hysterectomy, Joint Replacement Additional Past Surgical History / Comment(s): Bilateral knee replacements, right shoulder rotator cuff X2, bilateral iliac femoral stents, bladder suspension X2, right Mediport removed, left lung biopsy, lymph node biopsy, left groin biopsy(malignant). bilateral carpal tunnel, bilateral cataracts, right shoulder replacement. stimulator in hip (left) for back, bilateral iliac arterial stents., R femoral stent Past Anesthesia/Blood Transfusion Reactions: No Reported Reaction, Family History of Problems w/ Anesthesia Additional Past Anesthesia/Blood Transfusion Reaction / Comment(s): Claustrophobic., vomited and aspirated during colonoscopy. son had difficulty waking up after surgery Past Psychological History: Anxiety, Depression Smoking Status: Former smoker Past Alcohol Use History: None Reported Additional Past Alcohol Use History / Comment(s): quit smoking 6 months ago, smoked 1 ppd for over 50 years. vapes daily. Past Drug Use History: None Reported - Past Family History Sister(s) Family Medical History: Cancer Additional Family Medical History / Comment(s): Lung cancer. other sister heart failure Brother(s) Family Medical History: Cancer Additional Family Medical History / Comment(s): Lung cancer. Mother Family Medical History: Cancer Additional Family Medical History / Comment(s): Drugs and alcohol - of. Ear lobe cancer. Father Family Medical History: Cancer, Hyperlipidemia, Hypertension Additional Family Medical History / Comment(s): Skin cancer. Medications and Allergies Home Medications Medication Instructions Recorded Confirmed Type Clopidogrel [Plavix] 75 mg PO DAILY 08/15/16 08/08/23 History Levothyroxine Sodium [Synthroid] 25 mcg PO DAILY 08/15/16 08/08/23 History FLUoxetine HCL [PROzac] 40 mg PO DAILY 07/25/20 08/08/23 History Gabapentin [Neurontin] 300 mg PO BID 08/03/22 08/08/23 History Aspirin 81 mg PO DAILY #30 tab 08/10/22 08/08/23 Rx ALPRAZolam [Xanax] 0.25 mg PO BID PRN 04/04/23 08/08/23 History Atorvastatin [Lipitor] 80 mg PO HS 04/04/23 08/08/23 History Gabapentin 600 mg PO BID 04/04/23 08/08/23 History carBAMazepine [carBAMazepine ER] 100 mg PO BID 04/04/23 08/08/23 History levETIRAcetam [Keppra] 750 mg PO BID 07/19/23 08/08/23 History Furosemide [Lasix] 40 mg PO BID@0900,1400 08/08/23 08/08/23 History Allergies Allergy/AdvReac Type Severity Reaction Status Date / Time erythromycin base Allergy Rash/Hives Verified 08/08/23 15:20 Fish Containing Products Allergy Anaphylaxis Verified 08/08/23 15:20 Penicillins Allergy Anaphylaxis Verified 08/08/23 15:20 shellfish derived [Shellfish] Allergy Anaphylaxis Verified 08/08/23 15:20 levofloxacin [From Levaquin] AdvReac Rash/Hives, Verified 08/08/23 15:20 swelling Physical Exam Vitals: Vital Signs Temp Pulse Pulse Resp BP BP Pulse Ox 08/09/23 07:00 98.7 F 77 18 100/57 99 08/09/23 02:21 98.2 F 74 16 111/66 97 08/09/23 02:00 74 08/08/23 21:55 78 08/08/23 19:29 98.2 F 78 15 107/62 96 08/08/23 17:21 97.6 F 72 16 117/47 100 08/08/23 16:50 74 18 101/59 97 08/08/23 14:48 73 18 103/53 98 08/08/23 13:13 77 18 102/55 96 08/08/23 11:53 97.1 F L 74 18 113/51 100 Intake and Output 08/08/23 08/09/23 08/09/23 22:59 06:59 14:59 Other: Voiding Method Toilet # Voids 2 1 Weight 83.007 kg Results 08/08/23 12:27 08/08/23 12:27 Cardiac Enzymes 08/08/23 08/08/23 08/08/23 Range/Units 12:27 12:27 16:24 AST 27 (14-36) U/L Troponin I <0.012 <0.012 (0.000-0.034) ng/mL 08/08/23 Range/Units 17:51 AST (14-36) U/L Troponin I <0.012 (0.000-0.034) ng/mL Coagulation 08/08/23 Range/Units 12:27 PT 10.0 (10.0-12.5) sec APTT 24.8 (22.0-30.0) sec CBC 08/08/23 Range/Units 12:27 WBC 8.4 (3.8-10.6) k/uL RBC 3.77 L (3.80-5.40) m/uL Hgb 9.3 L D (11.4-16.0) gm/dL Hct 31.3 L (34.0-46.0) % Plt Count 434 (150-450) k/uL Comprehensive Metabolic Panel 08/08/23 Range/Units 12:27 Sodium 135 L (137-145) mmol/L Potassium 5.3 H (3.5-5.1) mmol/L Chloride 105 (98-107) mmol/L Carbon Dioxide 26 (22-30) mmol/L BUN 16 (7-17) mg/dL Creatinine 0.86 (0.52-1.04) mg/dL Glucose 146 H (74-99) mg/dL Calcium 8.7 (8.4-10.2) mg/dL AST 27 (14-36) U/L ALT 18 (4-34) U/L Alkaline Phosphatase 84 (38-126) U/L Total Protein 6.1 L (6.3-8.2) g/dL Albumin 3.5 (3.5-5.0) g/dL Current Medications Generic Name Dose Route Start Last Admin Trade Name Freq PRN Reason Stop Dose Admin Hydrocodone Bitart/Acetaminophen 1 each 08/09/23 04:12 Hydrocodone/Apap 7.5-325mg 1 Each Tab PO Q6HR PRN Pain Alprazolam 0.25 mg 08/08/23 15:27 Alprazolam 0.25 Mg Tab PO BID PRN Anxiety Aspirin 81 mg 08/09/23 09:00 Aspirin 81 Mg PO DAILY RUTH Atorvastatin Calcium 80 mg 08/08/23 21:00 08/08/23 21:53 Atorvastatin 80 Mg Tab PO 80 mg HS RUTH Administration Carbamazepine 100 mg 08/08/23 21:00 08/08/23 21:55 Carbamazepine 100 Mg Tab.Er.12h PO 100 mg BID RUTH Administration Clopidogrel Bisulfate 75 mg 08/09/23 09:00 Clopidogrel 75 Mg Tab PO DAILY RUTH Fluoxetine HCl 40 mg 08/09/23 09:00 Fluoxetine Hcl 20 Mg Cap PO DAILY RUTH Furosemide 40 mg 04/22/24 09:00 Furosemide 40 Mg Tab PO BID@0900,1400 RUTH Gabapentin 300 mg 08/08/23 21:00 08/08/23 21:53 Gabapentin 300 Mg Cap PO 300 mg BID RUTH Administration Gabapentin 600 mg 08/08/23 21:00 08/08/23 21:53 Gabapentin 300 Mg Cap PO 600 mg BID RUTH Administration Levetiracetam 750 mg 08/08/23 21:00 08/08/23 21:53 Levetiracetam 750 Mg Tab PO 750 mg BID RUTH Administration Levothyroxine Sodium 25 mcg 08/09/23 06:30 08/09/23 06:17 Levothyroxine 25 Mcg Tab PO 25 mcg DAILY@0630 RUTH Administration Nitroglycerin 0.4 mg 08/08/23 14:41 Nitroglycerin Sl Tabs 0.4 Mg Tab SUBLINGUAL Q5M PRN Chest Pain Intake and Output 08/08/23 08/09/23 08/09/23 22:59 06:59 14:59 Other: Voiding Method Toilet # Voids 2 1 Weight 83.007 kg 08/08/23 12:27 08/08/23 12:27
[2023-08-09 11:27] LABS: Chol/HDL Ratio 2.22 Ratio; LDL Cholesterol,Calculated 60.8 mg/dL (0.0-131.0)
--- NOTE | 2023-08-09 17:41 | CT ---
EXAMINATION TYPE: CT angio chest DATE OF EXAM: 08/09/2023 4:21 PM COMPARISON: None HISTORY: dyspnea CT DLP: 377.0 mGycm Automated exposure control for dose reduction was used. CONTRAST: CTA scan of the thorax is performed with IV Contrast, patient injected with 100 ml mL of Isovue 300, pulmonary embolism protocol. 3-D postprocessing was performed. FINDINGS: There are scattered multifocal areas of marked chronic interstitial density with groundglass density. There is a small to moderate left pleural effusion. There is a partially consolidative masslike density in the subpleural parenchymal right lower lobe me dially. There is mild to moderate cardiomegaly there are no filling defects in the pulmonary arterial circula tion to suggest pulmonary embolism. There is no mediastinal, hilar or axillary adenopathy. Limited scanning through the upper abdomen reveals cholecystectomy. The osseous structures are intact there is a TENS unit in the dorsal spine thoracic spine. IMPRESSION: 1. No evidence of pulmonary embolus. 2. Scattered diffuse interstitial density with groundglass density consistent with pulmonary edema or acute pneumonia. 3. Small to moderate left pleural effusion. 4. 3 cm masslike/consolidative density in the right lower lobe medially. This could represent round a telectasis, neoplasm or chronic infiltrate. Short-term follow-up to resolution is recommended.
[2023-08-09] MEDS: HEPARIN SODIUM,PORCINE 5,000 UNIT/ML 1 ML VIAL SQ SCH (17:52)
--- NOTE | 2023-08-09 17:53 | P.HPIM ---
History of Present Illness H&P Date: 08/09/23 Alexia Rubin, is a 73-year-old female who presented to [facility] emergency room with a chief complaint of chest pain radiating to her left shoulder and back. she was evaluated in the emergency room vital examination on presentation revealed a temperature of 97.1 pulse 74 respiration 18 blood pressure 113/51 pulse ox 100% on room air Laboratory data revealed a white blood count of 8.4 hemoglobin 9.3 platelet count 434 d-dimer 1.91 sodium 135 potassium 5.3 BUN 16 creatinine 0.86 troponin 0.012 Testing in the emergency room revealed chest x-ray done in the emergency room revealed diffuse interstitial opacity and patchy left lower lung opacity, CT angiogram of the chest revealed no evidence of pulmonary embolism there was evidence of small left pleural effusion, there is a masslike density in the right lower lobe Patient was admitted to medical floor for further evaluation and treatment, 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 ,States yeast infection in genital area and folds of abd., diet controlled diabetes., has stimulator left hip for back pain (not working)., PAD. History of Any Multi-Drug Resistant Organisms: None Reported Past Surgical History: Appendectomy, Back Surgery, Bladder Surgery, Cholecystectomy, Hysterectomy, Joint Replacement Additional Past Surgical History / Comment(s): Bilateral knee replacements, righ t shoulder rotator cuff X2, bilateral iliac femoral stents, bladder suspension X2, right Mediport removed, left lung biopsy, lymph node biopsy, left groin biopsy(malignant). bilateral carpal tunnel, bilateral cataracts, right shoulder replacement. stimulator in hip (left) for back, bilateral iliac arterial stents., R femoral stent Past Anesthesia/Blood Transfusion Reactions: No Reported Reaction, Family History of Problems w/ Anesthesia Additional Past Anesthesia/Blood Transfusion Reaction / Comment(s): Claustrophobic., vomited and aspirated during colonoscopy. son had difficulty waking up after surgery Past Psychological History: Anxiety, Depression Smoking Status: Former smoker Past Alcohol Use History: None Reported Additional Past Alcohol Use History / Comment(s): quit smoking 6 months ago, smoked 1 ppd for over 50 years. vapes daily. Past Drug Use History: None Reported - Past Family History Sister(s) Family Medical History: Cancer Additional Family Medical History / Comment(s): Lung cancer. other sister heart failure Brother(s) Family Medical History: Cancer Additional Family Medical History / Comment(s): Lung cancer. Mother Family Medical History: Cancer Additional Family Medical History / Comment(s): Drugs and alcohol - of. Ear lobe cancer. Father Family Medical History: Cancer, Hyperlipidemia, Hypertension Additional Family Medical History / Comment(s): Skin cancer. Medications and Allergies Home Medications Medication Instructions Recorded Confirmed Type Clopidogrel [Plavix] 75 mg PO DAILY 08/15/16 08/08/23 History Levothyroxine Sodium [Synthroid] 25 mcg PO DAILY 08/15/16 08/08/23 History FLUoxetine HCL [PROzac] 40 mg PO DAILY 07/25/20 08/08/23 History Gabapentin [Neurontin] 300 mg PO BID 08/03/22 08/08/23 History Aspirin 81 mg PO DAILY #30 tab 08/10/22 08/08/23 Rx ALPRAZolam [Xanax] 0.25 mg PO BID PRN 04/04/23 08/08/23 History Atorvastatin [Lipitor] 80 mg PO HS 04/04/23 08/08/23 History Gabapentin 600 mg PO BID 04/04/23 08/08/23 History carBAMazepine [carBAMazepine ER] 100 mg PO BID 04/04/23 08/08/23 History levETIRAcetam [Keppra] 750 mg PO BID 07/19/23 08/08/23 History Furosemide [Lasix] 40 mg PO BID@0900,1400 08/08/23 08/08/23 History Allergies Allergy/AdvReac Type Severity Reaction Status Date / Time erythromycin base Allergy Rash/Hives Verified 08/08/23 15:20 Fish Containing Products Allergy Anaphylaxis Verified 08/08/23 15:20 Penicillins Allergy Anaphylaxis Verified 08/08/23 15:20 shellfish derived [Shellfish] Allergy Anaphylaxis Verified 08/08/23 15:20 levofloxacin [From Levaquin] AdvReac Rash/Hives, Verified 08/08/23 15:20 swelling Physical Exam Vitals: Vital Signs Temp Pulse Pulse Resp BP BP Pulse Ox 08/09/23 07:00 98.7 F 77 18 100/57 99 08/09/23 02:21 98.2 F 74 16 111/66 97 08/09/23 02:00 74 08/08/23 21:55 78 08/08/23 19:29 98.2 F 78 15 107/62 96 08/08/23 17:21 97.6 F 72 16 117/47 100 08/08/23 16:50 74 18 101/59 97 08/08/23 14:48 73 18 103/53 98 08/08/23 13:13 77 18 102/55 96 08/08/23 11:53 97.1 F L 74 18 113/51 100 Intake and Output 08/08/23 08/09/23 08/09/23 22:59 06:59 14:59 Other: Voiding Method Toilet # Voids 2 1 Weight 83.007 kg In general patient is alert and oriented x 3 in no distress HEENT head normocephalic and atraumatic Neck is supple no JVD no goiter no lymphadenopathy no carotid bruit Chest examination is clear to auscultation no crackles no wheezing Cardiac exam reveals regular heart sounds S1 and S2 no gallops no murmurs Abdomen is soft nontender no organomegaly with normal bowel sounds Extremity exam reveals no edema no cyanosis or clubbing Neurological examination reveals no gross focal deficits Results CBC & Chem 7: 08/08/23 12:27 08/08/23 12:27 Labs: Abnormal Lab Results - Last 24 Hours (Table) 08/08/23 08/08/23 08/08/23 Range/Units 12:27 12:27 12:27 RBC 3.77 L (3.80-5.40) m/uL Hgb 9.3 L D (11.4-16.0) gm/dL Hct 31.3 L (34.0-46.0) % MCH 24.7 L (25.0-35.0) pg MCHC 29.8 L (31.0-37.0) g/dL RDW 24.8 H (11.5-15.5) % D-Dimer 1.91 H (<0.60) mg/L FEU Sodium 135 L (137-145) mmol/L Potassium 5.3 H (3.5-5.1) mmol/L Glucose 146 H (74-99) mg/dL Total Protein 6.1 L (6.3-8.2) g/dL Thrombosis Risk Factor Assmnt - Choose All That Apply Any of the Below Risk Factors Present?: Yes Each Factor Represents 1 point: Abnormal pulmonary function (COPD) Each Risk Factor Represents 2 Points: Age 61-74 years Thrombosis Risk Factor Assessment Total Risk Factor Score: 3 Thrombosis Risk Factor Assessment Level: Moderate Risk Assessment and Plan Plan: episode of chest pain, patient was admitted to telemetry floor serial troponin level ordered cardiology consultation requested Right lower lobe masslike consult radiation, pulmonary and oncology consultation was requested Elevated d-dimer no evidence of pulmonary embolism Underlying history of COPD Underlying history of diabetes mellitus type 2 Underlying history of valvular heart disease Underlying history of anemia Underlying history of peripheral vascular disease At this time patient was seen and examined Home medications reviewed and reordered For DVT prophylaxis patient is on subcu heparin Cardiology, pulmonary and oncology consultation requested. Will follow closely
[2023-08-10 03:20] VITALS: RESP 16
--- NOTE | 2023-08-10 04:54 | P.CNPUL ---
History of Present Illness Consult date: 08/10/23 Requesting physician: Lisseth Isaac Reason for consult: dyspnea Chief complaint: Chest pain History of present illness: Patient is a 73-year-old white female with past medical history significant for smoking-related interstitial fibrosis, rectal cancer status post chemo/radiation, obstructive sleep apnea, hyperlipidemia, diabetes mellitus, hypothyroidism, frequent urinary tract infections, peripheral vascularocclusive disease, prior right toe amputations, and former tobacco dependence. Her primary care provider is Dr. Isaac. She does follow in the pulmonary office with Dr. Irving. Of note, she recently had a brief hospitalization for CHF exacerbation 07/19/2023 and discharged 2 days later. She was discharged on home O2. During this hospital stay she did have a CT of the chest which identified a new right lower lobe pulmonary nodule with central cavitation measuring 2.6 x 2.5 cm. Procalcitonin level was 0.32 at that time. She was treated initially with empiric antibiotics, which were completed outpatient. We recommended outpatient PET scan, which is reportedly scheduled for this Wednesday. On 08/08/2023 she returned to the emergency department via EMS complaining of substernal chest pressure with radiation to bilateral shoulders and upper back. She was treated in around with a sublingual nitroglycerin, which initially did help, but the chest pain returned. EKG done on arrival showed normal sinus rhythm without any obvious acute ischemic changes. Troponins have been negative x 3. She has been reporting a persistent productive cough with occasional yellow sputum. No hemoptysis. Denies any fevers or chills. She was also short of breath overnight, apparently her oxygen concentrator had stopped working. She did not note any airflow through the cannula. Her daughter was likely staying with her at this time, and switched her over to a bottle of oxygen that they had at the house. They did call heart medical supplier who has already switched out her oxygen concentrator. She also is short of breath with exertion, but she states this is due to having to remove her nasal cannula when getting up to go to the bathroom. She states that the nasal cannula is not long enough. Follow-up chest x-ray on arrival to the emergency room showed similar diffuse interstitial opacities/lung disease with patchy left lower lung opacity also similar. D-dimer was also again elevated, for this reason a follow-up chest CTA was done in the emergency room which did not show any evidence of pulmonary embolism again. There is scattered diffuse interstitial density with groundglass densities consistent with pulmonary edema, possibly superimposed on the patient's chronic interstitial fibrosis. There is a small to moderate left- sided pleural effusion. There was now a 3 cm masslike consolidative density in the right lower lobe, previously seen. NT proBNP was mildly elevated at 703. Patient states that he she has not missed any doses of Lasix. Denies any significant lower extremity edema. Denies orthopnea. CBC on arrival: WBC count 8.4, hemoglobin 9.3, hematocrit 31.3, platelets 434. BMP on arrival: Sodium 135, potassium 5.3, chloride 105, serum bicarb 26, BUN 16, creatinine 0.86, glucose 146. Patient is currently lying in bed, on 3 L/min nasal cannula, in no acute distress. SpO2 is currently 99%. Afebrile. Vital signs are stable. Review of Systems REVIEW OF SYSTEMS: CONSTITUTIONAL: Denies any recent significant weight loss or weight gain. Denies night sweats. Denies fever or chills. EYES: Denies change in vision. EARS, NOSE, MOUTH, THROAT: Denies headaches, denies sore throat. CARDIOVASCULAR: palpitations, lightheadedness, syncopal episodes, lower extremity swelling, orthopnea. Admits chest pain as described in HPI. RESPIRATORY: See HPI. GASTROINTESTINAL: Denies change in appetite, abdominal pain, nausea and vomiting, or diarrhea GENITOURINARY: Denies hematuria, denies infections. MUSKULOSKELETAL: Denies pain, denies swelling. INTEGUMENTARY: Denies rash, denies eczema. NEUROLOGICAL: Denies recent memory loss, no recent seizure activity. PSYCHIATRIC: Denies anxiety, denies depression. 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 ,States yeast infection in genital area and folds of abd., diet controlled diabetes., has stimulator left hip for back pain (not working)., PAD. History of Any Multi-Drug Resistant Organisms: None Reported Past Surgical History: Appendectomy, Back Surgery, Bladder Surgery, Cholecystectomy, Hysterectomy, Joint Replacement Additional Past Surgical History / Comment(s): Bilateral knee replacements, right shoulder rotator cuff X2, bilateral iliac femoral stents, bladder suspension X2, right Mediport removed, left lung biopsy, lymph node biopsy, left groin biopsy(malignant). bilateral carpal tunnel, bilateral cataracts, right shoulder replacement. stimulator in hip (left) for back, bilateral iliac arterial stents., R femoral stent Past Anesthesia/Blood Transfusion Reactions: No Reported Reaction, Family History of Problems w/ Anesthesia Additional Past Anesthesia/Blood Transfusion Reaction / Comment(s): Claustrophobic., vomited and aspirated during colonoscopy. son had difficulty waking up after surgery Past Psychological History: Anxiety, Depression Smoking Status: Former smoker Past Alcohol Use History: None Reported Additional Past Alcohol Use History / Comment(s): quit smoking 6 months ago, smoked 1 ppd for over 50 years. vapes daily. Past Drug Use History: None Reported - Past Family History Sister(s) Family Medical History: Cancer Additional Family Medical History / Comment(s): Lung cancer. other sister heart failure Brother(s) Family Medical History: Cancer Additional Family Medical History / Comment(s): Lung cancer. Mother Family Medical History: Cancer Additional Family Medical History / Comment(s): Drugs and alcohol - of. Ear lobe cancer. Father Family Medical History: Cancer, Hyperlipidemia, Hypertension Additional Family Medical History / Comment(s): Skin cancer. Medications and Allergies Home Medications Medication Instructions Recorded Confirmed Type Clopidogrel [Plavix] 75 mg PO DAILY 08/15/16 08/08/23 History Levothyroxine Sodium [Synthroid] 25 mcg PO DAILY 08/15/16 08/08/23 History FLUoxetine HCL [PROzac] 40 mg PO DAILY 07/25/20 08/08/23 History Gabapentin [Neurontin] 300 mg PO BID 08/03/22 08/08/23 History Aspirin 81 mg PO DAILY #30 tab 08/10/22 08/08/23 Rx ALPRAZolam [Xanax] 0.25 mg PO BID PRN 04/04/23 08/08/23 History Atorvastatin [Lipitor] 80 mg PO HS 04/04/23 08/08/23 History Gabapentin 600 mg PO BID 04/04/23 08/08/23 History carBAMazepine [carBAMazepine ER] 100 mg PO BID 04/04/23 08/08/23 History levETIRAcetam [Keppra] 750 mg PO BID 07/19/23 08/08/23 History Furosemide [Lasix] 40 mg PO BID@0900,1400 08/08/23 08/08/23 History Allergies Allergy/AdvReac Type Severity Reaction Status Date / Time erythromycin base Allergy Rash/Hives Verified 08/08/23 15:20 Fish Containing Products Allergy Anaphylaxis Verified 08/08/23 15:20 Penicillins Allergy Anaphylaxis Verified 08/08/23 15:20 shellfish derived [Shellfish] Allergy Anaphylaxis Verified 08/08/23 15:20 levofloxacin [From Levaquin] AdvReac Rash/Hives, Verified 08/08/23 15:20 swelling Physical Exam Vitals: Vital Signs Temp Pulse Resp BP Pulse Ox 08/10/23 02:26 98.6 F 82 16 114/61 100 08/10/23 02:00 82 08/09/23 20:34 86 08/09/23 19:22 98.5 F 86 15 118/53 99 08/09/23 15:35 97.9 F 83 18 92/54 96 08/09/23 13:43 98.1 F 75 16 93/57 96 08/09/23 11:55 91 L 08/09/23 07:00 98.7 F 77 18 100/57 99 Intake and Output 08/09/23 08/09/23 08/10/23 14:59 22:59 06:59 Intake Total 59 Balance 59 Intake: Oral 59 Other: Voiding Method Toilet Toilet # Voids 1 2 # Bowel Movements 1 GENERAL EXAM: Alert, 73-year-old white female, comfortable in no apparent distress. HEAD: Normocephalic and atraumatic EYES: Normal reaction of pupils, equal size. NOSE: Clear with pink turbinates. THROAT: No erythema or exudates. NECK: No masses, no JVD. CHEST: No chest wall deformity. LUNGS: Equal air entry with scattered posterior inspiratory crackles. No wheezes, rhonchi, focal dullness. On 3 L/min nasal cannula. No conversational dyspnea or accessory muscle use.. CVS: S1 and S2 normal with no audible murmur, regular rhythm. No extra heart sounds ABDOMEN: No hepatosplenomegaly, active bowel sounds, no guarding or rigidity. SPINE: No scoliosis or deformity SKIN: No rashes CENTRAL NERVOUS SYSTEM: No focal deficits, tone is normal in all 4 extremities. EXTREMITIES: No significant lower extremity edema. Prior right toe amputations. Unable to palpate pulse of the right lower extremity. Extremity warm and sensation intact. Remaining peripheral pulses are intact. No clubbing, or cyanosis. Results - Laboratory Findings CBC and BMP: 08/08/23 12:08/08/23 12:27 PT/INR, D-dimer PT 10.0 sec (10.0-12.5) 08/08/23 12: INR 0.9 (<1.2) 08/08/23 12: D-Dimer 1.91 mg/L FEU (<0.60) H 08/08/23 12:27 Abnormal lab findings: Abnormal Labs 08/08/23 08/08/23 08/08/23 12:27 12:27 12:27 RBC 3.77 L Hgb 9.3 L D Hct 31.3 L MCH 24.7 L MCHC 29.8 L RDW 24.8 H D-Dimer 1.91 H Sodium 135 L Potassium 5.3 H Glucose 146 H Total Protein 6.1 L HDL Cholesterol 08/09/23 06:53 RBC Hgb Hct MCH MCHC RDW D-Dimer Sodium Potassium Glucose Total Protein HDL Cholesterol 64.90 H - Diagnostic Findings Chest x-ray: image reviewed CT scan - chest: image reviewed Assessment and Plan Assessment: Atypical chest pain, ACS has been ruled out Possible mild exacerbation of diastolic congestive heart failure and valvular heart disease, most recent echocardiogram estimated a preserved left ventricular ejection fraction of 60 to 65%, with mild to moderate tricuspid regurgitation, mild mitral stenosis, mild aortic regurgitation. Chest CTA done in the emergency room which did not show any evidence of pulmonary embolism again. There is scattered diffuse interstitial density with groundglass densities concerning for pulmonary edema, possibly superimposed on the patient's chronic interstitial fibrosis. There is a small to moderate left-sided pleural effusion. There was now a 3 cm masslike consolidative density in the right lower lobe, previously seen. Chronic hypoxemic respiratory failure, possibly secondary to above Right lower lobe cavitating pulmonary mass, now measuring 3 cm, patient has scheduled outpatient PET scan this Wednesday History of smoking-related interstitial fibrosis, biopsy-proven History of rectal cancer, status post chemo and radiation. Patient's most recent PET scan was from November, which did not show any new areas of abnormal hypermetabolic uptake to suggest active neoplastic recurrence. History of peripheral vascular occlusive disease, status post right femoral tibial bypass. History of previous right toe amputations Chronic microcytic, hypochromic anemia History obstructive sleep apnea History of hyperlipidemia History of CVA/TIA History of hypothyroidism History of frequent urinary tract infections Former tobacco smoker Plan: Patient's medications, labs, imaging were reviewed Since her recent hospital discharge on 07/21/2023, she has been oxygen dependent on 2 L/min nasal cannula. She continues on supplemental oxygen which is currently at 3 L/min nasal cannula. Lasix 40 mg twice daily has been restarted. From a pulmonary standpoint, patient could potentially be discharged back home in the next 24 to 48 hours, after being evaluated by Dr. Irving later this morning. Patient needs follow-up outpatient PET scan which is reportedly scheduled for this Wednesday. We will continue to follow, and additional recommendations are forthcoming. I have personally seen and examined the patient, performed the documentation and the assessment and plan as written. Number of minutes spent on the visit:20 Time with Patient: Greater than 30
[2023-08-10 07:29] LABS: Anisocytosis Marked; Basophils % (A) 1 %; Eosinophils # (A) 0.3 k/uL (0-0.7); Eosinophils % (A) 6 %; HCT 31.9 % (34.0-46.0); HGB 9.4 gm/dL (11.4-16.0); Hypochromasia Marked; Lymphocytes # (A) 1.6 k/uL (1.0-4.8); Lymphocytes % (A) 29 %; MCH 24.3 pg (25.0-35.0); MCHC 29.5 g/dL (31.0-37.0); MCV 82.4 fL (80.0-100.0); Microcytosis Moderate; Monocytes # (A) 0.4 k/uL (0-1.0); Monocytes % (A) 7 %; Neutrophils % (A) 53 %; Platelet Count 320 k/uL (150-450); RBC 3.87 m/uL (3.80-5.40); RDW 24.8 % (11.5-15.5); WBC 5.6 k/uL (3.8-10.6)
[2023-08-10 08:55] VITALS: BP 110/62; PULSE 94; TEMP 97.7
[2023-08-10 09:44] LABS: ALT 15 U/L (4-34); AST 24 U/L (14-36); African American GFR (CKD) 83 (>60 ml/min/1.73 sqM); Albumin 3.2 g/dL (3.5-5.0); Albumin/Globulin Ratio 1.3; Alkaline Phosphatase 81 U/L (38-126); Anion Gap 7 mmol/L; Blood Urea Nitrogen 18 mg/dL (7-17); Calcium 8.6 mg/dL (8.4-10.2); Carbon Dioxide 25 mmol/L (22-30); Chloride 105 mmol/L (98-107); Globulin 2.5 g/dL; Glucose 120 mg/dL (74-99); Non-African American GFR(CKD) 72 (>60 ml/min/1.73 sqM); Potassium 4.2 mmol/L (3.5-5.1); Sodium 137 mmol/L (137-145); Total Bilirubin 0.3 mg/dL (0.2-1.3); Total Protein 5.7 g/dL (6.3-8.2)
--- NOTE | 2023-08-10 09:57 | P.DS ---
Providers Date of admission: 08/08/23 14:41 Expected date of discharge: 08/10/23 Attending physician: Lisseth Isaac Consults: 08/09/23 08:46 Consult Physician Routine Consulting Provider: Angelic Lofton Consult Reason/Comments: shortness of breath Do you want consulting provider notified?: Yes 08/09/23 13:53 Consult Physician Routine Consulting Provider: Tani Richter Consult Reason/Comments: lung mass Do you want consulting provider notified?: Yes Primary care physician: Lisseth Isaac Assessment: discharge diagnosis episode of chest pain, patient was admitted to telemetry floor serial troponin level ordered cardiology consultation requested Right lower lobe masslike consult radiation, pulmonary and oncology consultation was requested Elevated d-dimer no evidence of pulmonary embolism Underlying history of COPD Underlying history of diabetes mellitus type 2 Underlying history of valvular heart disease Underlying history of anemia Underlying history of peripheral vascular disease Hospital course Alexia Rubin, is a 73-year-old female who presented to [facility] emergency room with a chief complaint of chest pain radiating to her left shoulder and back. she was evaluated in the emergency room vital examination on presentation revealed a temperature of 97.1 pulse 74 respiration 18 blood pressure 113/51 pulse ox 100% on room air Laboratory data revealed a white blood count of 8.4 hemoglobin 9.3 platelet count 434 d-dimer 1.91 sodium 135 potassium 5.3 BUN 16 creatinine 0.86 troponin 0.012 Testing in the emergency room revealed chest x-ray done in the emergency room revealed diffuse interstitial opacity and patchy left lower lung opacity, CT angiogram of the chest revealed no evidence of pulmonary embolism there was evidence of small left pleural effusion, there is a masslike density in the right lower lobe Patient was admitted to medical floor for further evaluation and treatment, on 08/10/2023 for patient's alert and oriented 3. patient feels ready to be DC'd home patient cleared for discharge from cardiology and pulmonary services patient's follow-up appointment this week including PET scan.current vital signs temp 98.6, pulse rate 82, respiratory rate 16, blood pressure 114/61 with pulse ox 100% on 2 L Patient Condition at Discharge: Stable Plan - Discharge Summary New Discharge Prescriptions: Continue Clopidogrel [Plavix] 75 mg PO DAILY Levothyroxine Sodium [Synthroid] 25 mcg PO DAILY Gabapentin [Neurontin] 300 mg PO BID Gabapentin 600 mg PO BID Atorvastatin [Lipitor] 80 mg PO HS Furosemide [Lasix] 40 mg PO BID@0900,1400 FLUoxetine HCL [PROzac] 40 mg PO DAILY Aspirin 81 mg PO DAILY #30 tab carBAMazepine [carBAMazepine ER] 100 mg PO BID ALPRAZolam [Xanax] 0.25 mg PO BID PRN PRN Reason: Anxiety levETIRAcetam [Keppra] 750 mg PO BID Discharge Medication List Clopidogrel [Plavix] 75 mg PO DAILY 08/15/16 [History] Levothyroxine Sodium [Synthroid] 25 mcg PO DAILY 08/15/16 [History] FLUoxetine HCL [PROzac] 40 mg PO DAILY 07/25/20 [History] Gabapentin [Neurontin] 300 mg PO BID 08/03/22 [History] Aspirin 81 mg PO DAILY #30 tab 08/10/22 [Rx] ALPRAZolam [Xanax] 0.25 mg PO BID PRN 04/04/23 [History] Atorvastatin [Lipitor] 80 mg PO HS 04/04/23 [History] Gabapentin 600 mg PO BID 04/04/23 [History] carBAMazepine [carBAMazepine ER] 100 mg PO BID 04/04/23 [History] levETIRAcetam [Keppra] 750 mg PO BID 07/19/23 [History] Furosemide [Lasix] 40 mg PO BID@0900,1400 08/08/23 [History] Follow up Appointment(s)/Referral(s): Lisseth Isaac MD [Primary Care Provider] - 1-2 days Discharge Disposition: HOME SELF-CARE
--- NOTE | 2023-08-10 17:22 | P.EN ---
Patient discharged prior to being seen as consult. Agree that she does not need any further additional inpatient workup and obtain PET/CT on 08/12/2023. She will likely require biopsy of the right lower lobe lung lesion along with follow-up in our clinic.
== END 2023-08-10 11:13 | disposition home or self-care (01) ==
LOC: EC 11:50 → 3SCARD 14:41 → 6NMEDSUR 15:12
PROVIDERS: ADMIT Internal Medicine; ATTEND Internal Medicine
DX: R07.89 Other chest pain (principal); R91.1 Solitary pulmonary nodule; J96.11 Chronic respiratory failure with hypoxia; I11.0 Hypertensive heart disease with heart failure; I50.30 Unspecified diastolic (congestive) heart failure; J70.8 Respiratory conditions due to other specified external agents; J84.170 Interstitial lung disease with progressive fibrotic phenotype in diseases classified elsewhere; I08.3 Combined rheumatic disorders of mitral, aortic and tricuspid valves; J44.9 Chronic obstructive pulmonary disease, unspecified; E11.51 Type 2 diabetes mellitus with diabetic peripheral angiopathy without gangrene; D50.9 Iron deficiency anemia, unspecified; E03.9 Hypothyroidism, unspecified; G47.33 Obstructive sleep apnea (adult) (pediatric); E78.5 Hyperlipidemia, unspecified; R79.89 Other specified abnormal findings of blood chemistry; M25.512 Pain in left shoulder; M54.9 Dorsalgia, unspecified; F17.290 Nicotine dependence, other tobacco product, uncomplicated; E66.01 Morbid (severe) obesity due to excess calories; Z68.32 Body mass index [BMI] 32.0-32.9, adult; Z79.02 Long term (current) use of antithrombotics/antiplatelets; Z79.890 Hormone replacement therapy; Z79.82 Long term (current) use of aspirin; Z79.84 Long term (current) use of oral hypoglycemic drugs; Z79.899 Other long term (current) drug therapy; Z88.1 Allergy status to other antibiotic agents; Z88.0 Allergy status to penicillin; Z91.013 Allergy to seafood; Z91.018 Allergy to other foods; Z87.440 Personal history of urinary (tract) infections; Z86.73 Personal history of transient ischemic attack (TIA), and cerebral infarction without residual deficits; Z85.048 Personal history of other malignant neoplasm of rectum, rectosigmoid junction, and anus; Z92.21 Personal history of antineoplastic chemotherapy; Z92.3 Personal history of irradiation; Z89.421 Acquired absence of other right toe(s); Z80.1 Family history of malignant neoplasm of trachea, bronchus and lung
CPT/HCPCS: 96372; 96360; 96361; 99291; 36415; 94760; 93005; 85379; 83880; 80061; 80053 ×2; 83690; 83735; 84484; 85025 ×2; 85610; 85730; 87040; 71046; 71275; G0378 ×3; J1644; Q9967

== ENCOUNTER → 2023-08-13 | Outpatient (CLI) | payer MEDICARE | END | disposition home or self-care (01) | LOC: RADPETMAIN 11:47 | PROVIDERS: ATTEND Internal Medicine Critical Care Medicine | DX: Z53.9 Procedure and treatment not carried out, unspecified reason (principal) ==

== ENCOUNTER → 2023-08-19 | Outpatient (CLI) | payer MEDICARE ==
--- NOTE | 2023-08-19 13:00 | PE ---
EXAMINATION TYPE: PET CT fusion skull to thigh DATE OF EXAM: 08/19/2023 CLINICAL INDICATION:Female, 73 years old with history of R91.1 PET SOLITARY PULMONARY NODULE; TECHNIQUE: Following the intravenous administration of 7.94 mCi of F-18 FDG, whole body images are performed from the skull base to the midthigh. Images are reviewed on the computer in the coronal, a xial, and sagittal planes. Reconstructed rotating images are created on independent workstation and reviewed on the computer. A non-contrast CT is performed in conjunction with the PET scan. Glucose level 138 mg/dL CT DLP: 673 mGycm, Automated exposure control for dose reduction was used. COMPARISON: CT 10/22/2016 08/09/2023, PET/CT 11/21/2021, FINDINGS: Mediastinal SUV mean is 2.5. Hepatic parenchyma SUV mean is 3.8. SKULL BASE AND NECK: No suspicious radiotracer activity. CHEST, MEDIASTINUM, AND HILAR REGION: No suspicious radiotracer activity. Diffuse interstitial and groundglass opacities throughout the lungs which has progressed from 2. Right lower lobe nodule measuring 29 x 24 mm is new from prior max SUV 10.3 Right pulmonary hilum lymph node max SUV 5.7. Measurements are difficult without IV contrast. ABDOMEN AND PELVIS: No suspicious radiotracer activity. MUSCULOSKELETAL STRUCTURES: No suspicious radiotracer activity. OTHER CT: Infrarenal abdominal aortic fusiform aneurysm measuring up to 36 mm. The gallbladder surgic ally absent. Lipomatous atrophy changes of the pancreatic parenchyma. Left posterior buttock no stimu lator device with leads entering the spinal canal. Fixation changes to the lower spine with hardware intact. No heart is enlarged for size. Diffuse intralobular septal thickening with underlying fibroti c change. Right shoulder arthroplasty is present. IMPRESSION: 1. Right lower lobe pulmonary nodule with increased metabolic activity compatible with malignancy. T here is at least one right pulmonary hilum lymph node at this time suspicious for metastatic disease. No evidence for metastatic disease within the neck or abdomen and pelvis. 2. Extensive interstitial opacities of the lungs correlate for superimposed infection and correlate serum BNP for congestive heart failure.
== END | disposition home or self-care (01) ==
LOC: RADPETMAIN 08:47
PROVIDERS: ATTEND Internal Medicine Critical Care Medicine
DX: R91.8 Other nonspecific abnormal finding of lung field (principal); R91.1 Solitary pulmonary nodule
CPT/HCPCS: 78815; A9552

== ENCOUNTER 2023-09-10 11:24 | Emergency (ER) | payer MEDICARE, OTHER ==
[2023-09-10 12:02] VITALS: TEMP 97
[2023-09-10] MEDS: SODIUM CHLORIDE 0.9% 1,000 ML IV STA (12:43)
[2023-09-10] MEDS: DIPH,PERTUS(ACELL)TETVAC-LF 0.5 ML VIAL IM ONE (12:44)
[2023-09-10] MEDS: ACETAMINOPHEN TAB 500 MG TAB PO STA (12:46)
[2023-09-10 13:00] VITALS: RESP 16
[2023-09-10 13:06] LABS: ALT 20 U/L (4-34); AST 24 U/L (14-36); African American GFR (CKD) 78 (>60 ml/min/1.73 sqM); Albumin 3.6 g/dL (3.5-5.0); Alcohol <10 mg/dL; Alkaline Phosphatase 79 U/L (38-126); Anion Gap 3 mmol/L; Blood Urea Nitrogen 24 mg/dL (7-17); Calcium 9.3 mg/dL (8.4-10.2); Carbon Dioxide 32 mmol/L (22-30); Chloride 101 mmol/L (98-107); Glucose 176 mg/dL (74-99); Non-African American GFR(CKD) 67 (>60 ml/min/1.73 sqM); Potassium 4.4 mmol/L (3.5-5.1); Sodium 136 mmol/L (137-145); Total Bilirubin 0.3 mg/dL (0.2-1.3); Total Protein 6.1 g/dL (6.3-8.2)
[2023-09-10 13:10] LABS: INR 0.9 (<1.2); Prothrombin Time 9.9 sec (10.0-12.5)
[2023-09-10 13:12] LABS: Anisocytosis Moderate; Basophils % (A) 0 %; Eosinophils # (A) 0.1 k/uL (0-0.7); Eosinophils % (A) 1 %; HCT 34.7 % (34.0-46.0); HGB 10.7 gm/dL (11.4-16.0); Lymphocytes # (A) 1.9 k/uL (1.0-4.8); Lymphocytes % (A) 19 %; MCH 27.8 pg (25.0-35.0); MCHC 30.8 g/dL (31.0-37.0); Mean Platelet Volume 8.4; Microcytosis Slight; Monocytes # (A) 0.5 k/uL (0-1.0); Monocytes % (A) 5 %; Neutrophils # (A) 7.7 k/uL (1.3-7.7); Neutrophils % (A) 74 %; Platelet Count 245 k/uL (150-450); RBC 3.85 m/uL (3.80-5.40); WBC 10.4 k/uL (3.8-10.6)
[2023-09-10 13:13] LABS: Partial Thromboplastin Time 20.8 sec (22.0-30.0)
[2023-09-10 13:14] LABS: MCV 90.3 fL (80.0-100.0)
--- NOTE | 2023-09-10 13:24 | XR ---
EXAMINATION TYPE: XR pelvis AP view DATE OF EXAM: 09/10/2023 COMPARISON: None HISTORY: Trauma fall pain TECHNIQUE: AP pelvis FINDINGS: Femoral heads articulate with the acetabulum. Pubic symphysis and sacroiliac joints are nor mal. Postsurgical changes are within the lumbar spine. Iliac stents are present electronic device ove rlies left iliac wing. IMPRESSION: 1. No acute osseous abnormalities AP pelvis
--- NOTE | 2023-09-10 13:39 | XR ---
EXAMINATION TYPE: XR chest 1V portable DATE OF EXAM: 09/10/2023 COMPARISON: 08/08/2023 INDICATION: Trauma, fall TECHNIQUE: Single frontal view of the chest is obtained. FINDINGS: The heart size is mildly prominent. The pulmonary vasculature is normal. Mild diffuse increased lung markings are present. This appears improved from comparison No pneumothorax is evident. IMPRESSION: 1. No Acute posttraumatic changes
--- NOTE | 2023-09-10 13:42 | XR ---
EXAMINATION TYPE: XR knee complete RT DATE OF EXAM: 09/10/2023 COMPARISON: None HISTORY: Trauma, pain TECHNIQUE: 3 view right knee FINDINGS: Tibial femoral components are present. Stent is in the distal superficial femoral artery re gion. Vascular clips are present. No acute fractures are evident. There may be a fluid fluid level in the joint space. IMPRESSION: 1. No acute osseous abnormality radiographically apparent. 2. There may be a fluid-fluid joint effusion. Follow-up can be performed as clinically
--- NOTE | 2023-09-10 13:53 | XR ---
EXAMINATION TYPE: XR elbow complete RT DATE OF EXAM: 09/10/2023 COMPARISON: None HISTORY: Pain, fall TECHNIQUE: 3 view right elbow FINDINGS: No acute fracture or dislocation is evident. Anterior fat-pad is normal. No additional post erior fat pad is evident. Radius aligns normally humerus. Follow up exams can be performed 7-10 days from acute trauma for continued pain. IMPRESSION: 1. No acute osseous abnormality right elbow.
--- NOTE | 2023-09-10 14:03 | CT ---
EXAMINATION TYPE: CT brain cspine wo con, CT facial bones wo con CT DLP: 1349.3 mGycm, Automated exposure control for dose reduction was used. DATE OF EXAM: 09/10/2023 1:18 PM COMPARISON: 08/09/2023.. CLINICAL INDICATION:Female, 73 years old with history of trauma; Fall, facial bruising (accession [id number]), Fall, facial bruising. (accession [id number]) TECHNIQUE: Brain: Multiple axial CT images of the brain were obtained without IV contrast. Cspine: Axial CT images from the skull base to the inferior aspect of T2 we obtained without intraven ous contrast. Coronal and sagittal reformatted images were also reviewed. FINDINGS: Brain: Extra-axial spaces: No abnormal extra-axial fluid collections. Ventricular system: Dilatation in proportion to cerebral atrophy. Cerebral parenchyma: Cerebral atrophy. No acute intraparenchymal hemorrhage or mass effect. The cooper -white junction is well differentiated. Scattered hypoattenuating areas are seen within the white mat ter. Cerebellum: Unremarkable. Mass effect: No evidence of midline shift. Intracranial vasculature: unremarkable Soft tissues: Soft tissue edema over the right frontal scalp. Calvarium/osseous structures: No depressed skull fracture. Paranasal sinuses and mastoid air cells: Clear. Visualized orbits: Orbital contents are intact. Cervical spine: Fracture: None. Osseous structures: Multilevel degenerative disc disease changes with endplate spurring and disc oste ophyte complex's. Vertebral alignment: Straightening of the spine. Spinal canal/Neural Foramina: Disc osteophyte complexes at C3-C4 through C6-C7. With at least mild sp inal canal stenosis. No evidence for significant neural foraminal stenosis. Neck soft tissues: Prevertebral soft tissues are within normal limits. Other: The airway is patent. Chronic interstitial changes in lung apices. Facial: Right scalp edema. No evidence of fracture. There is no evidence of fracture, subluxation, or dislocation. The orbital contents are unremarkable. The temporal-mandibular joints appear symmetric with bilaterally aphakia changes. Intraconal extracon al fat is maintained.. The visualized portion of the paranasal sinuses appear clear. IMPRESSION: 1. No acute intracranial process. 2. Right scalp edema . No evidence of fracture. 3. No evidence of cervical spine fracture. 4. Moderate to severe multilevel degenerative disc disease. 5. Chronic interstitial changes in the lung apices.
--- NOTE | 2023-09-10 14:51 | ED ---
General Adult HPI - General Chief complaint: Head Injury Stated complaint: Fall-Head injury Time Seen by Provider: 09/10/23 12:00 Source: patient, EMS, RN notes reviewed, old records reviewed Mode of arrival: EMS Limitations: no limitations - History of Present Illness Initial comments: Patient is a 73-year-old female presents emergency department after mechanical fall from standing on Plavix. Fall occurred shortly prior to arrival. States she lost her balance and fell in the bathroom and hit her head on the tub. No loss of consciousness. Has a hematoma around the right orbit. No difficulty with vision. Also struck her right elbow and right knee on something. Has a little bit of bleeding but no other obvious issue at this time. Presents for further evaluation at this time. She did not lose consciousness. Denies any other injuries. States she lost her balance and fell. Typically ambulates with a walker at home. Presents for further evaluation at this time. - Related Data Home Medications Medication Instructions Recorded Confirmed Clopidogrel [Plavix] 75 mg PO DAILY 08/15/16 09/10/23 Levothyroxine Sodium [Synthroid] 25 mcg PO DAILY 08/15/16 09/10/23 FLUoxetine HCL [PROzac] 40 mg PO DAILY 07/25/20 09/10/23 Gabapentin [Neurontin] 300 mg PO BID 08/03/22 09/10/23 ALPRAZolam [Xanax] 0.25 mg PO DAILY PRN 04/04/23 09/10/23 Atorvastatin [Lipitor] 80 mg PO HS 04/04/23 09/10/23 Gabapentin 600 mg PO BID 04/04/23 09/10/23 carBAMazepine [carBAMazepine ER] 100 mg PO BID 04/04/23 09/10/23 levETIRAcetam [Keppra] 750 mg PO BID 07/19/23 09/10/23 Furosemide [Lasix] 40 mg PO BID@0900,1400 08/08/23 09/10/23 Albuterol Nebulized [Ventolin 2.5 mg INHALATION RT-TID 09/10/23 09/10/23 Nebulized] Ferrous Sulfate [Feosol] 325 mg PO BID 09/10/23 09/10/23 HYDROcodone/APAP 5-325MG [[place] 1 tab PO TID 09/10/23 09/10/23 5-325] predniSONE See Taper PO DIRECTED 09/10/23 09/10/23 traZODone HCL [Desyrel] 100 mg PO HS 09/10/23 09/10/23 Previous Rx's Medication Instructions Recorded Aspirin 81 mg PO DAILY #30 tab 08/10/22 Allergies Allergy/AdvReac Type Severity Reaction Status Date / Time erythromycin base Allergy Rash/Hives Verified 09/10/23 12:38 Fish Containing Products Allergy Anaphylaxis Verified 09/10/23 12:38 Penicillins Allergy Anaphylaxis Verified 09/10/23 12:38 shellfish derived [Shellfish] Allergy Anaphylaxis Verified 09/10/23 12:38 levofloxacin [From Levaquin] AdvReac Rash/Hives, Verified 09/10/23 12:38 swelling Review of Systems ROS Statement: Those systems with pertinent positive or pertinent negative responses have been documented in the HPI. Review of Systems: CONST: Denies fever EYES: Denies blurry vision ENT: Denies nasal congestion C/V: Denies Chest pain RESP: Denies shortness of breath GI: Denies abdominal pain : Denies dysuria SKIN: Denies rash. MSK: Endorses face pain, right elbow pain, right knee pain. NEURO: Denies headache ROS Other: All systems not noted in ROS Statement are negative. 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 ,States yeast infection in genital area and folds of abd., diet controlled diabetes., has stimulator left hip for back pain (not working)., PAD. History of Any Multi-Drug Resistant Organisms: None Reported Past Surgical History: Appendectomy, Back Surgery, Bladder Surgery, Cholecystectomy, Hysterectomy, Joint Replacement Additional Past Surgical History / Comment(s): Bilateral knee replacements, right shoulder rotator cuff X2, bilateral iliac femoral stents, bladder suspension X2, right Mediport removed, left lung biopsy, lymph node biopsy, left groin biopsy(malignant). bilateral carpal tunnel, bilateral cataracts, right shoulder replacement. stimulator in hip (left) for back, bilateral iliac arterial stents., R femoral stent Past Anesthesia/Blood Transfusion Reactions: No Reported Reaction, Family History of Problems w/ Anesthesia Additional Past Anesthesia/Blood Transfusion Reaction / Comment(s): Claustrophobic., vomited and aspirated during colonoscopy. son had difficulty waking up after surgery Past Psychological History: Anxiety, Depression Smoking Status: Former smoker Past Alcohol Use History: None Reported Additional Past Alcohol Use History / Comment(s): quit smoking 6 months ago, sm oked 1 ppd for over 50 years. vapes daily. Past Drug Use History: None Reported - Past Family History Sister(s) Family Medical History: Cancer Additional Family Medical History / Comment(s): Lung cancer. other sister heart failure Brother(s) Family Medical History: Cancer Additional Family Medical History / Comment(s): Lung cancer. Mother Family Medical History: Cancer Additional Family Medical History / Comment(s): Drugs and alcohol - of. Ear lobe cancer. Father Family Medical History: Cancer, Hyperlipidemia, Hypertension Additional Family Medical History / Comment(s): Skin cancer. General Exam - General Exam Comments Initial Comments: General: Appears in no acute distress. HEAD: Contusion over the right eye. No obvious bleeding. Negative Santillan sign. Negative raccoon eyes. EYES: PERRLA, EOMI, conjunctiva normal, no discharge. Pulls are 3 mm and equal bilaterally. ENT: Hearing grossly intact, normal oropharynx. RESPIRATORY: Clear breath sounds bilaterally. No wheezes, rales, or rhonchi. C/V: Regular rate and rhythm. S1 and S2 auscultated, no edema, peripheral pulses 2+ and intact throughout ABD: Abd is soft, nontender, nondistended EXT: Right midfoot amputation. Normal range of motion. No obvious deformity. Tenderness of the right anterior knee as well as right elbow. Normal range of motion. No midline cervical, thoracic, lumbar spine tenderness to palpation. Pelvis is stable. SKIN: Superficial abrasions located throughout right upper extremity and right lower extremity. No obvious lacerations needed for closure. NEURO: Alert and oriented x 4. Cranial nerves II-XII intact. No focal sensory or strength deficits. GCS of 15. Limitations: no limitations Course Vital Signs 09/10/23 09/10/23 09/10/23 11:28 12:04 13:00 Temperature 97.0 F L Pulse Rate 72 60 65 Respiratory 18 16 16 Rate Blood Pressure 94/42 130/68 104/55 O2 Sat by Pulse 93 L 95 98 Oximetry Medical Decision Making - Medical Decision Making Was pt. sent in by a medical professional or institution (, PA, TRANSCRIPTION, urgent care, hospital, or halfway...) When possible be specific @ -No Did you speak to anyone other than the patient for history (EMS, parent, family, police, friend...)? What history was obtained from this source @ -No Did you review nursing and triage notes (agree or disagree)? Why? @ -I reviewed and agree with nursing and triage notes Were old charts reviewed (outside hosp., previous admission, EMS record, old EKG, old radiological studies, urgent care reports/EKG's, halfway records)? Report findings @ -No old charts were reviewed Differential Diagnosis (chest pain, altered mental status, abdominal pain women, abdominal pain men, vaginal bleeding, weakness, fever, dyspnea, syncope, headache, dizziness, GI bleed, back pain, seizure, CVA, palpatations, mental health, musculoskeletal)? @ -Differential Musculoskeletal Muscular strain, contusion, ligament sprain, fracture, arthritis, septic arthritis, bursitis, cellulitis, muscle spasm, nerve compression, DVT, arterial occlusion, herpes zoster, electrolyte abnormality, tumor.... This is not meant to be in all inclusive list EKG interpreted by me (3pts min.). @ -As above X-rays interpreted by me (1pt min.). @ -Chest x-ray, pelvis x-ray, elbow x-ray, knee x-ray negative for any obvious traumatic injury. CT interpreted by me (1pt min.). @ -CT brain, C-spine, face negative for any obvious traumatic injury, other than right scalp edema at the location of the hematoma U/S interpreted by me (1pt. min.). @ -None done What testing was considered but not performed or refused? (CT, X-rays, U/S, labs)? Why? @ -None What meds were considered but not given or refused? Why? @ -None Did you discuss the management of the patient with other professionals (professionals i.e. , PA, TRANSCRIPTION, lab, RT, psych nurse, certified social workers in health care, precision assembler bench, teacher, parking enforcement officer, piano case maker)? Give summary @ -No Was smoking cessation discussed for >3mins.? @ -No Was critical care preformed (if so, how long)? @ -No Were there social determinants of health that impacted care today? How? (Homelessness, low income, unemployed, alcoholism, drug addiction, transportation, low edu. Level, literacy, decrease access to med. care, residential, rehab)? @ -No Was there de-escalation of care discussed even if they declined (Discuss DNR or withdrawal of care, Hospice)? DNR status @ -No What co-morbidities impacted this encounter? (DM, HTN, Smoking, COPD, CAD, Cancer, CVA, ARF, Chemo, Hep., AIDS, mental health diagnosis, sleep apnea, morbid obesity)? @ -None Was patient admitted / discharged? Hospital course, mention meds given and route, prescriptions, significant lab abnormalities, going to OR and other pertinent info. @ -Patient presents with fall on Plavix. Does not meet criteria for trauma activation. We will obtain imaging, including CT of the brain and C-spine as well as x-rays of the right elbow, knee as well as chest and pelvis. Trauma labs will be obtained. Patient in agreement this plan. Vital signs within acceptable limits. She will be given Tylenol for analgesia. Cervical collar is in place. Tetanus updated. Given a 1 L fluid bolus. Imaging returned unremarkable for any traumatic injury. Patient's labs are within acceptable limits. I was able to clear the patient cervical, on reevaluation. Patient does not require any significant closure of her abrasions or skin tears. Recommended keeping them clean at home and covered. Discussed workup with her and family. She will be discharged home at this time. They were in agreement this plan. Vital signs are within acceptable limits at discharge. I instructed the patient to follow up with their PCP in the next 1-3 days. I explained that the patient should return to the emergency department if they experience any worsening symptoms. Strict return precautions were discussed with the patient. The patient expressed understanding of these instructions. I answered all questions that the patient had. The patient was discharged home in good condition with their prescriptions and follow up information. Undiagnosed new problem with uncertain prognosis? @ -No Drug Therapy requiring intensive monitoring for toxicity (Heparin, Nitro, Insulin, Cardizem)? @ -No Were any procedures done? @ -No Diagnosis/symptom? @ -Fall, forehead contusion, abrasion, knee contusion Acute, or Chronic, or Acute on Chronic? @ -Acute Uncomplicated (without systemic symptoms) or Complicated (systemic symptoms)? @ -Complicated Side effects of treatment? @ -No Exacerbation, Progression, or Severe Exacerbation? @ -No Poses a threat to life or bodily function? How? (Chest pain, [place], [place], pneumonia, PE, COPD, DKA, ARF, appy, cholecystitis, CVA, Diverticulitis, Homicidal, Suicidal, threat to staff... and all critical care pts) @ -Unlikely - Lab Data Result diagrams: 09/10/23 12:35 09/10/23 12:35 Lab Results 09/10/23 09/10/23 09/10/23 Range/Units 12:35 12:35 12:35 WBC 10.4 (3.8-10.6) k/uL RBC 3.85 (3.80-5.40) m/uL Hgb 10.7 L (11.4-16.0) gm/dL Hct 34.7 (34.0-46.0) % MCV 90.3 D (80.0-100.0) fL MCH 27.8 (25.0-35.0) pg MCHC 30.8 L (31.0-37.0) g/dL RDW 22.0 H (11.5-15.5) % Plt Count 245 (150-450) k/uL MPV 8.4 Neutrophils % 74 % Lymphocytes % 19 % Monocytes % 5 % Eosinophils % 1 % Basophils % 0 % Neutrophils # 7.7 (1.3-7.7) k/uL Lymphocytes # 1.9 (1.0-4.8) k/uL Monocytes # 0.5 (0-1.0) k/uL Eosinophils # 0.1 (0-0.7) k/uL Basophils # 0.0 (0-0.2) k/uL Anisocytosis Moderate Microcytosis Slight PT 9.9 L (10.0-12.5) sec INR 0.9 (<1.2) APTT 20.8 L (22.0-30.0) sec Sodium 136 L (137-145) mmol/L Potassium 4.4 (3.5-5.1) mmol/L Chloride 101 (98-107) mmol/L Carbon Dioxide 32 H (22-30) mmol/L Anion Gap 3 mmol/L BUN 24 H (7-17) mg/dL Creatinine 0.86 (0.52-1.04) mg/dL Est GFR (CKD-EPI)AfAm 78 (>60 ml/min/1.73 sqM) Est GFR (CKD-EPI)NonAf 67 (>60 ml/min/1.73 sqM) Glucose 176 H (74-99) mg/dL Calcium 9.3 (8.4-10.2) mg/dL Total Bilirubin 0.3 (0.2-1.3) mg/dL AST 24 (14-36) U/L ALT 20 (4-34) U/L Alkaline Phosphatase 79 (38-126) U/L Total Protein 6.1 L (6.3-8.2) g/dL Albumin 3.6 (3.5-5.0) g/dL Serum Alcohol <10 mg/dL Blood Type Blood Type Recheck Bld Type Recheck Status Antibody Screen Spec Expiration Date 09/10/23 Range/Units 12:40 WBC (3.8-10.6) k/uL RBC (3.80-5.40) m/uL Hgb (11.4-16.0) gm/dL Hct (34.0-46.0) % MCV (80.0-100.0) fL MCH (25.0-35.0) pg MCHC (31.0-37.0) g/dL RDW (11.5-15.5) % Plt Count (150-450) k/uL MPV Neutrophils % % Lymphocytes % % Monocytes % % Eosinophils % % Basophils % % Neutrophils # (1.3-7.7) k/uL Lymphocytes # (1.0-4.8) k/uL Monocytes # (0-1.0) k/uL Eosinophils # (0-0.7) k/uL Basophils # (0-0.2) k/uL Anisocytosis Microcytosis PT (10.0-12.5) sec INR (<1.2) APTT (22.0-30.0) sec Sodium (137-145) mmol/L Potassium (3.5-5.1) mmol/L Chloride (98-107) mmol/L Carbon Dioxide (22-30) mmol/L Anion Gap mmol/L BUN (7-17) mg/dL Creatinine (0.52-1.04) mg/dL Est GFR (CKD-EPI)AfAm (>60 ml/min/1.73 sqM) Est GFR (CKD-EPI)NonAf (>60 ml/min/1.73 sqM) Glucose (74-99) mg/dL Calcium (8.4-10.2) mg/dL Total Bilirubin (0.2-1.3) mg/dL AST (14-36) U/L ALT (4-34) U/L Alkaline Phosphatase (38-126) U/L Total Protein (6.3-8.2) g/dL Albumin (3.5-5.0) g/dL Serum Alcohol mg/dL Blood Type A Positive Blood Type Recheck A Pos Bld Type Recheck Status No Antibody Screen NEGATIVE Spec Expiration Date 09/13/20232334 - EKG Data -: EKG Interpreted by Me EKG Comments: 12-lead Electrocardiogram Interpretation Note EKG was reviewed and interpreted by myself. 12-lead ECG performed at 1243 is interpreted by me as revealing normal sinus rhythm at a rate of 67 beats per minute. [place] is normal. [place] interval is 169 ms, QRS duration is 82 ms, QTc is 419 ms.. There were no ST or T wave abnormalities to suggest myocardial ischemia or injury. R wave progression across the precordium was satisfactory. By my interpretation this EKG is non-diagnostic for acute ischemia. Disposition Clinical Impression: Fall, Forehead contusion, Abrasion, Knee contusion Disposition: HOME SELF-CARE Condition: Good Instructions (If sedation given, give patient instructions): Abrasion (ED), Facial Contusion (ED) Is patient prescribed a controlled substance at d/c from ED?: No Referrals: Lisseth Isaac MD [Primary Care Provider] - 1-2 days Time of Disposition: 14:51
[2023-09-10 15:54] VITALS: BP 101/57; PULSE 71
== END 2023-09-10 15:35 | disposition home or self-care (01) ==
LOC: EC 11:24
DX: S00.83XA Contusion of other part of head, initial encounter (principal); S80.01XA Contusion of right knee, initial encounter; Z88.6 Allergy status to analgesic agent; Z88.0 Allergy status to penicillin; Z91.013 Allergy to seafood; Z88.1 Allergy status to other antibiotic agents; Z87.891 Personal history of nicotine dependence; Z23 Encounter for immunization; W18.09XA Striking against other object with subsequent fall, initial encounter
CPT/HCPCS: 36415; 93005; 86900; 86901; 80053; 85025; 85610; 85730; 86850; 72170; 73080; 73562; 71045; 72125; 70486; 70450; 90715; 99285; 90471; 96360; G0480; 80320

== ENCOUNTER 2023-10-06 12:49 | Inpatient (IN) | payer MEDICARE ==
--- NOTE | 2023-10-06 13:44 | ED ---
Weakness HPI - General Source: patient, family, EMS, RN notes reviewed Mode of arrival: EMS Limitations: no limitations - History of Present Illness MD Complaint: generalized weakness <Lola Pierce - Last Filed: 10/06/23 17:30> <Morena Gonzalez - Last Filed: 10/06/23 20:46> - General Chief complaint: Weakness Stated complaint: weakness,dizzy, upset tummy Time Seen by Provider: 10/06/23 13:07 - History of Present Illness Initial comments: This is a 73-year-old female who presents to the emergency department for generalized weakness. States that over the last 3 days she has had diarrhea every time she eats. States that there is some form to this and she denies any blood in her stool. States that she also feels dizzy and like she does not have any energy. She does wear oxygen at baseline and does not believe she is more short of breath than normal. Denies any chest pain. She was around her sister who recently tested positive for COVID. (Lola Pierce) - Related Data Home Medications Medication Instructions Recorded Confirmed Clopidogrel [Plavix] 75 mg PO DAILY 08/15/16 10/06/23 Levothyroxine Sodium [Synthroid] 25 mcg PO DAILY 08/15/16 10/06/23 FLUoxetine HCL [PROzac] 40 mg PO DAILY 07/25/20 10/06/23 Gabapentin [Neurontin] 300 mg PO BID 08/03/22 10/06/23 ALPRAZolam [Xanax] 0.25 mg PO DAILY PRN 04/04/23 10/06/23 Atorvastatin [Lipitor] 80 mg PO HS 04/04/23 10/06/23 Gabapentin 600 mg PO BID 04/04/23 10/06/23 carBAMazepine [carBAMazepine ER] 100 mg PO BID 04/04/23 10/06/23 levETIRAcetam [Keppra] 750 mg PO BID 07/19/23 10/06/23 Furosemide [Lasix] 40 mg PO BID@0900,1400 08/08/23 10/06/23 Albuterol Nebulized [Ventolin 2.5 mg INHALATION RT-TID 09/10/23 10/06/23 Nebulized] Ferrous Sulfate [Feosol] 325 mg PO BID 09/10/23 10/06/23 HYDROcodone/APAP 5-325MG [[place] 1 tab PO TID 09/10/23 10/06/23 5-325] traZODone HCL [Desyrel] 100 mg PO HS 09/10/23 10/06/23 Previous Rx's Medication Instructions Recorded Aspirin 81 mg PO DAILY #30 tab 08/10/22 Allergies Allergy/AdvReac Type Severity Reaction Status Date / Time erythromycin base Allergy Rash/Hives Verified 10/06/23 14:18 Fish Containing Products Allergy Anaphylaxis Verified 10/06/23 14:18 Penicillins Allergy Anaphylaxis Verified 10/06/23 14:18 shellfish derived [Shellfish] Allergy Anaphylaxis Verified 10/06/23 14:18 levofloxacin [From Levaquin] AdvReac Rash/Hives, Verified 10/06/23 14:18 swelling Review of Systems ROS Other: All systems not noted in ROS Statement are negative. <Lola Pierce - Last Filed: 10/06/23 17:30> ROS Other: All systems not noted in ROS Statement are negative. <Morena Gonzalez - Last Filed: 10/06/23 20:46> ROS Statement: Those systems with pertinent positive or pertinent negative responses have been documented in the HPI. 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 ,States yeast infection in genital area and folds of abd., diet controlled diabetes., has stimulator left hip for back pain (not working)., PAD. History of Any Multi-Drug Resistant Organisms: None Reported Past Surgical History: Appendectomy, Back Surgery, Bladder Surgery, Cholecystect cole, Hysterectomy, Joint Replacement Additional Past Surgical History / Comment(s): Bilateral knee replacements, right shoulder rotator cuff X2, bilateral iliac femoral stents, bladder suspension X2, right Mediport removed, left lung biopsy, lymph node biopsy, left groin biopsy(malignant). bilateral carpal tunnel, bilateral cataracts, right shoulder replacement. stimulator in hip (left) for back, bilateral iliac arterial stents., R femoral stent Past Anesthesia/Blood Transfusion Reactions: No Reported Reaction, Family History of Problems w/ Anesthesia Additional Past Anesthesia/Blood Transfusion Reaction / Comment(s): Claustrophobic., vomited and aspirated during colonoscopy. son had difficulty waking up after surgery Past Psychological History: Anxiety, Depression Smoking Status: Former smoker Past Alcohol Use History: None Reported Past Drug Use History: None Reported - Past Family History Sister(s) Family Medical History: Cancer Additional Family Medical History / Comment(s): Lung cancer. other sister heart failure Brother(s) Family Medical History: Cancer Additional Family Medical History / Comment(s): Lung cancer. Mother Family Medical History: Cancer Additional Family Medical History / Comment(s): Drugs and alcohol - of. Ear lobe cancer. Father Family Medical History: Cancer, Hyperlipidemia, Hypertension Additional Family Medical History / Comment(s): Skin cancer. <Lola Pierce - Last Filed: 10/06/23 17:30> General Exam Limitations: no limitations General appearance: alert, in no apparent distress Head exam: Present: atraumatic, normocephalic, normal inspection Respiratory exam: Present: normal lung sounds bilaterally. Absent: respiratory distress, wheezes, rales, rhonchi, stridor Cardiovascular Exam: Present: regular rate, normal rhythm, normal heart sounds. Absent: systolic murmur, diastolic murmur, rubs, gallop, clicks GI/Abdominal exam: Present: soft, normal bowel sounds. Absent: distended, tenderness, guarding, rebound, rigid Neurological exam: Present: alert, oriented X3, CN II-XII intact Psychiatric exam: Present: normal affect, normal mood Skin exam: Present: warm, dry, intact, normal color. Absent: rash <Lola Pierce - Last Filed: 10/06/23 17:30> Course <Morena Gonzalez - Last Filed: 10/06/23 20:46> Vital Signs 10/06/23 10/06/23 10/06/23 13:04 16:00 17:00 Temperature 99.1 F Pulse Rate 70 80 79 Respiratory 16 16 16 Rate Blood Pressure 111/47 132/54 151/76 O2 Sat by Pulse 92 L 97 97 Oximetry - Reevaluation(s) Reevaluation #1: 10/06/23 19:[address] Isaac who accepts medical admission. (Morena Gonzalez) Medical Decision Making - Lab Data Result diagrams: 10/06/23 14:16 10/06/23 14:16 - Radiology Data Radiology results: report reviewed, image reviewed <Lola Pierec - Last Filed: 10/06/23 17:30> - Lab Data Result diagrams: 10/06/23 14:16 10/06/23 14:16 - EKG Data -: EKG Interpreted by Me - Radiology Data Radiology results: report reviewed, image reviewed <Morena Gonzalez - Last Filed: 10/06/23 20:46> - Medical Decision Making This is a 73 year old female who presents to the emergency department for weakness. Was pt. sent in by a medical professional or institution? @ -No Did you speak to anyone other than the patient for history? @ -No Did you review nursing and triage notes? @ -Yes, and I agree, it is accurate with regards to the patient's symptoms. Were old charts reviewed? @ -No Differential Diagnosis? @ -Differential Weakness: Hypoglycemia, shock, sepsis, hyponatremia, anemia, infection, [place], ETOH, adverse medicine reaction, overdose, stroke, this is not meant to be an all-inclusive list. EKG interpreted by me (3pts min.)? @ -EKG interpreted by me demonstrating the following: Sinus rhythm. Ventricular rate 70 bpm, NY interval 164 ms, QRS duration 81 ms, QTc 434 ms. X-rays interpreted by me (1pt min.)? @ -Chest x-ray obtained, my interpretation identifies no localized consolidations or infiltrates. CT interpreted by me (1pt min.)? @ -Not obtained U/S interpreted by me (1pt. min.)? @ -Not obtained What testing was considered but not performed? (CT, X-rays, U/S, labs)? Why? @ -None What meds were considered but not given? Why? @ -None Did you discuss the management of the patient with other professionals? @ -No Did you reconcile home meds? @ -No Was smoking cessation discussed for >3mins.? @ -I discussed smoking cessation for greater than 3 minutes. The risk of smoking were discussed with the patient including but not limited to risks of cancer, stroke, coronary artery disease and COPD. Also discussed with patient were multiple methods of quitting smoking. Lastly we discussed the financial cost of smoking. Was critical care preformed (if so, how long)? @ -No Were there social determinants of health that impacted care today? How? (Homelessness, low income, unemployed, alcoholism, drug addiction, transportation, low edu. Level, literacy, decrease access to med. care, custodial, rehab)? @ -No Was there de-escalation of care discussed even if they declined? (Discuss DNR or withdrawal of care, Hospice)? @ -No What co-morbidities impacted this encounter? (DM, HTN, Smoking, COPD, CAD, Cancer, CVA, Hep., AIDS, mental health diagnosis, sleep apnea, morbid obesity)? @ -COPD, DM, HLD, smoking Was patient admitted / discharged? @ -Lab work fairly unremarkable. BNP slightly elevated at 1760, however it has been higher in the past. Patient also denies any worsening shortness of breath. Chest x-ray demonstrates cardiomegaly and prominent pulmonary vascular markings consistent with CHF. COVID, influenza, and RSV testing negative. Case signed out to Morena Gonzalez PA-C, at shift completion pending UA results and disposition. (Lola Pierce) Patient signed out to me from Lola Pierce PA-C, at shift completion pending UA and disposition. Patient is a 73-year-old female presented to the ER with chief complaint of weakness. Urinalysis without evidence of infection. Upon reevaluation, patient resting comfortably in exam room in no signs of acute di stress. Results discussed with patient, all questions answered. Patient reports she does not feel safe for discharge at this time. Son, at bedside, states she lives at home alone and has been having recent falls and memory issues. He states she has not been taking her medications as prescribed as she forgets. Admission considered for weakness and CHF. Due to elevated BNP and chest x-ray findings, patient started on IV 20 mg Lasix. Case discussed with Dr. Isaac who accepts medical admission. Patient agreeable for admission at this time. Case discussed with ED attending, Dr. Salinas. Patient admitted in stable condition. (Morena Gonzalez) - Lab Data Lab Results 10/06/23 10/06/23 10/06/23 Range/Units 13:10 14:16 14:16 WBC 5.4 (3.8-10.6) k/uL RBC 3.77 L (3.80-5.40) m/uL Hgb 11.5 (11.4-16.0) gm/dL Hct 35.7 (34.0-46.0) % MCV 94.6 (80.0-100.0) fL MCH 30.4 (25.0-35.0) pg MCHC 32.1 (31.0-37.0) g/dL RDW 18.8 H (11.5-15.5) % Plt Count 193 (150-450) k/uL MPV 8.1 Neutrophils % 65 % Lymphocytes % 23 % Monocytes % 6 % Eosinophils % 1 % Basophils % 1 % Neutrophils # 3.6 (1.3-7.7) k/uL Lymphocytes # 1.3 (1.0-4.8) k/uL Monocytes # 0.3 (0-1.0) k/uL Eosinophils # 0.1 (0-0.7) k/uL Basophils # 0.0 (0-0.2) k/uL Anisocytosis Slight PT 10.3 (10.0-12.5) sec INR 0.9 (<1.2) APTT 24.2 (22.0-30.0) sec Sodium (137-145) mmol/L Potassium (3.5-5.1) mmol/L Chloride (98-107) mmol/L Carbon Dioxide (22-30) mmol/L Anion Gap mmol/L BUN (7-17) mg/dL Creatinine (0.52-1.04) mg/dL Est GFR (CKD-EPI)AfAm (>60 ml/min/1.73 sqM) Est GFR (CKD-EPI)NonAf (>60 ml/min/1.73 sqM) Glucose (74-99) mg/dL Plasma Lactic Acid Boyd (0.7-2.0) mmol/L Calcium (8.4-10.2) mg/dL Phosphorus (2.5-4.5) mg/dL Magnesium (1.6-2.3) mg/dL Total Bilirubin (0.2-1.3) mg/dL AST (14-36) U/L ALT (4-34) U/L Alkaline Phosphatase (38-126) U/L Troponin I (0.000-0.034) ng/mL NT-Pro-B Natriuret Pep pg/mL Total Protein (6.3-8.2) g/dL Albumin (3.5-5.0) g/dL Urine Color Urine Appearance (Clear) Urine pH (5.0-8.0) Ur Specific Brutus (1.001-1.035) Urine Protein (Negative) Urine Glucose (UA) (Negative) Urine Ketones (Negative) Urine Blood (Negative) Urine Nitrite (Negative) Urine Bilirubin (Negative) Urine Urobilinogen (<2.0) mg/dL Ur Leukocyte Esterase (Negative) Urine RBC (0-5) /hpf Urine WBC (0-5) /hpf Influenza Type A (PCR) Not Detected (Not Detectd) Influenza Type B (PCR) Not Detected (Not Detectd) RSV (PCR) Not Detected (Not Detectd) SARS-CoV-2 (PCR) Not Detected (Not Detectd) 10/06/23 10/06/23 10/06/23 Range/Units 14:16 14:16 14:16 WBC (3.8-10.6) k/uL RBC (3.80-5.40) m/uL Hgb (11.4-16.0) gm/dL Hct (34.0-46.0) % MCV (80.0-100.0) fL MCH (25.0-35.0) pg MCHC (31.0-37.0) g/dL RDW (11.5-15.5) % Plt Count (150-450) k/uL MPV Neutrophils % % Lymphocytes % % Monocytes % % Eosinophils % % Basophils % % Neutrophils # (1.3-7.7) k/uL Lymphocytes # (1.0-4.8) k/uL Monocytes # (0-1.0) k/uL Eosinophils # (0-0.7) k/uL Basophils # (0-0.2) k/uL Anisocytosis PT (10.0-12.5) sec INR (<1.2) APTT (22.0-30.0) sec Sodium 131 L (137-145) mmol/L Potassium 4.1 (3.5-5.1) mmol/L Chloride 100 (98-107) mmol/L Carbon Dioxide 26 (22-30) mmol/L Anion Gap 5 mmol/L BUN 12 (7-17) mg/dL Creatinine 0.85 (0.52-1.04) mg/dL Est GFR (CKD-EPI)AfAm 78 (>60 ml/min/1.73 sqM) Est GFR (CKD-EPI)NonAf 68 (>60 ml/min/1.73 sqM) Glucose 99 (74-99) mg/dL Plasma Lactic Acid Boyd 1.3 (0.7-2.0) mmol/L Calcium 8.3 L (8.4-10.2) mg/dL Phosphorus 3.8 (2.5-4.5) mg/dL Magnesium 1.7 (1.6-2.3) mg/dL Total Bilirubin 0.6 (0.2-1.3) mg/dL AST 37 H (14-36) U/L ALT 21 (4-34) U/L Alkaline Phosphatase 75 (38-126) U/L Troponin I <0.012 (0.000-0.034) ng/mL NT-Pro-B Natriuret Pep 1760 pg/mL Total Protein 5.9 L (6.3-8.2) g/dL Albumin 3.6 (3.5-5.0) g/dL Urine Color Urine Appearance (Clear) Urine pH (5.0-8.0) Ur Specific Brutus (1.001-1.035) Urine Protein (Negative) Urine Glucose (UA) (Negative) Urine Ketones (Negative) Urine Blood (Negative) Urine Nitrite (Negative) Urine Bilirubin (Negative) Urine Urobilinogen (<2.0) mg/dL Ur Leukocyte Esterase (Negative) Urine RBC (0-5) /hpf Urine WBC (0-5) /hpf Influenza Type A (PCR) (Not Detectd) Influenza Type B (PCR) (Not Detectd) RSV (PCR) (Not Detectd) SARS-CoV-2 (PCR) (Not Detectd) 10/06/23 Range/Units 17:42 WBC (3.8-10.6) k/uL RBC (3.80-5.40) m/uL Hgb (11.4-16.0) gm/dL Hct (34.0-46.0) % MCV (80.0-100.0) fL MCH (25.0-35.0) pg MCHC (31.0-37.0) g/dL RDW (11.5-15.5) % Plt Count (150-450) k/uL MPV Neutrophils % % Lymphocytes % % Monocytes % % Eosinophils % % Basophils % % Neutrophils # (1.3-7.7) k/uL Lymphocytes # (1.0-4.8) k/uL Monocytes # (0-1.0) k/uL Eosinophils # (0-0.7) k/uL Basophils # (0-0.2) k/uL Anisocytosis PT (10.0-12.5) sec INR (<1.2) APTT (22.0-30.0) sec Sodium (137-145) mmol/L Potassium (3.5-5.1) mmol/L Chloride (98-107) mmol/L Carbon Dioxide (22-30) mmol/L Anion Gap mmol/L BUN (7-17) mg/dL Creatinine (0.52-1.04) mg/dL Est GFR (CKD-EPI)AfAm (>60 ml/min/1.73 sqM) Est GFR (CKD-EPI)NonAf (>60 ml/min/1.73 sqM) Glucose (74-99) mg/dL Plasma Lactic Acid Boyd (0.7-2.0) mmol/L Calcium (8.4-10.2) mg/dL Phosphorus (2.5-4.5) mg/dL Magnesium (1.6-2.3) mg/dL Total Bilirubin (0.2-1.3) mg/dL AST (14-36) U/L ALT (4-34) U/L Alkaline Phosphatase (38-126) U/L Troponin I (0.000-0.034) ng/mL NT-Pro-B Natriuret Pep pg/mL Total Protein (6.3-8.2) g/dL Albumin (3.5-5.0) g/dL Urine Color Colorless Urine Appearance Clear (Clear) Urine pH 7.0 (5.0-8.0) Ur Specific Brut[place] 1.006 (1.001-1.035) Urine Protein Negative (Negative) Urine Glucose (UA) Negative (Negative) Urine Ketones Negative (Negative) Urine Blood Negative (Negative) Urine Nitrite Negative (Negative) Urine Bilirubin Negative (Negative) Urine Urobilinogen <2.0 (<2.0) mg/dL Ur Leukocyte Esterase Small H (Negative) Urine RBC <1 (0-5) /hpf Urine WBC 2 (0-5) /hpf Influenza Type A (PCR) (Not Detectd) Influenza Type B (PCR) (Not Detectd) RSV (PCR) (Not Detectd) SARS-CoV-2 (PCR) (Not Detectd) - EKG Data EKG Comments: EKG taken at 13: 53 showing a normal sinus rhythm with no acute ST segment or T wave abnormalities. Intraocular rate 70, [place] interval 164, QRS duration 81, QT/QTc 413/434. (Morena Gonzalez) Disposition <Lola Pierce - Last Filed: 10/06/23 17:30> Time of Disposition: 19:01 <Morena Gonzalez - Last Filed: 10/06/23 20:46> Clinical Impression: Nicotine dependence, Weakness, CHF (congestive heart failure) Disposition: ADMITTED IP TO THIS HOSP Condition: Stable
[2023-10-06] MEDS: SODIUM CHLORIDE 0.9% 1,000 ML IV STA (13:58)
[2023-10-06 14:49] LABS: Anisocytosis Slight; Basophils % (A) 1 %; Eosinophils # (A) 0.1 k/uL (0-0.7); Eosinophils % (A) 1 %; HCT 35.7 % (34.0-46.0); HGB 11.5 gm/dL (11.4-16.0); Lymphocytes # (A) 1.3 k/uL (1.0-4.8); Lymphocytes % (A) 23 %; MCH 30.4 pg (25.0-35.0); MCHC 32.1 g/dL (31.0-37.0); MCV 94.6 fL (80.0-100.0); Mean Platelet Volume 8.1; Monocytes # (A) 0.3 k/uL (0-1.0); Monocytes % (A) 6 %; Neutrophils # (A) 3.6 k/uL (1.3-7.7); Neutrophils % (A) 65 %; Platelet Count 193 k/uL (150-450); RBC 3.77 m/uL (3.80-5.40); RDW 18.8 % (11.5-15.5); WBC 5.4 k/uL (3.8-10.6)
[2023-10-06 15:01] LABS: INR 0.9 (<1.2); Partial Thromboplastin Time 24.2 sec (22.0-30.0); Prothrombin Time 10.3 sec (10.0-12.5)
[2023-10-06 15:19] LABS: ALT 21 U/L (4-34); African American GFR (CKD) 78 (>60 ml/min/1.73 sqM); Albumin 3.6 g/dL (3.5-5.0); Anion Gap 5 mmol/L; Blood Urea Nitrogen 12 mg/dL (7-17); Calcium 8.3 mg/dL (8.4-10.2); Carbon Dioxide 26 mmol/L (22-30); Chloride 100 mmol/L (98-107); Glucose 99 mg/dL (74-99); Non-African American GFR(CKD) 68 (>60 ml/min/1.73 sqM); Sodium 131 mmol/L (137-145); Total Bilirubin 0.6 mg/dL (0.2-1.3); Total Protein 5.9 g/dL (6.3-8.2)
[2023-10-06 15:27] LABS: NT-Pro-B-Type Natriuretic Pept 1760 pg/mL
[2023-10-06 15:29] LABS: AST 37 U/L (14-36); Alkaline Phosphatase 75 U/L (38-126); Magnesium 1.7 mg/dL (1.6-2.3); Phosphorus 3.8 mg/dL (2.5-4.5); Potassium 4.1 mmol/L (3.5-5.1)
--- NOTE | 2023-10-06 16:22 | XR ---
EXAMINATION TYPE: XR chest 2V DATE OF EXAM: 10/06/2023 COMPARISON: 09/10/2023 INDICATION: Weakness diarrhea TECHNIQUE: Frontal and lateral views of the chest are obtained. FINDINGS: The heart size is mildly prominent. The pulmonary vasculature is prominent. Diffuse increased lung markings are present bilaterally. Right shoulder prosthesis is present. Stimu lator leads are within the mid thoracic region IMPRESSION: 1. Cardiomegaly and prominent pulmonary vascular markings and diffuse increased lung markings may cor relate with congestive heart failure. Clinical correlation and follow-up is recommended.
[2023-10-06 18:10] LABS: Appearance,Urine Clear (Clear); Bilirubin,Urine Negative (Negative); Blood,Urine Negative (Negative); Color,Urine Colorless; Glucose,Urine (UA) Negative (Negative); Ketones,Urine Negative (Negative); Leukocyte Esterase,Urine Small (Negative); Nitrite,Urine Negative (Negative); Protein,Urine Negative (Negative); RBC,Urine <1 /hpf (0-5); Specific Gravity,Urine 1.006 (1.001-1.035); Urobilinogen,Urine <2.0 mg/dL (<2.0); WBC,Urine 2 /hpf (0-5)
[2023-10-06] MEDS ORDERED: NALOXONE 0.4 MG/ML 1 ML VIAL IV PRN (18:57)
[2023-10-06] MEDS: FUROSEMIDE 10 MG/ML 2 ML VIAL IV ONE (19:13)
[2023-10-06] MEDS: carBAMazepine 100 MG TAB.ER.12H PO SCH (21:22)
[2023-10-06] MEDS: FERROUS SULFATE 325 MG TAB PO SCH (21:22)
[2023-10-06] MEDS: ATORVASTATIN 80 MG TAB PO SCH (21:22)
[2023-10-06] MEDS: ALBUTEROL NEBULIZED 2.5 MG/3 ML INHALATION SCH (22:21)
[2023-10-06] MEDS: traZODone HCL 100 MG TAB PO SCH (22:43)
[2023-10-07] MEDS ORDERED: ACETAMINOPHEN TAB 325 MG TAB PO PRN (03:56)
[2023-10-07] MEDS: LEVOTHYROXINE 25 MCG TAB PO SCH (05:36)
[2023-10-07] MEDS: FLUoxetine HCL 20 MG CAP PO SCH (09:28)
[2023-10-07] MEDS: ASPIRIN 81 MG PO SCH (09:28)
[2023-10-07] MEDS: FUROSEMIDE 40 MG TAB PO SCH (09:28)
[2023-10-07] MEDS: CLOPIDOGREL 75 MG TAB PO SCH (09:29)
[2023-10-07] MEDS: FUROSEMIDE 10 MG/ML 2 ML VIAL IV ONE (14:11)
--- NOTE | 2023-10-07 18:01 | P.HPIM ---
History of Present Illness H&P Date: 10/07/23 Alexia Rubin, is a 73-year-old female who presented to [facility] emergency room with a chief complaint of generalized weakness, worsening shortness of breath, and diarrhea. She was evaluated in the emergency room vital examination on presentation revealed a temperature of 99.1 pulse 70 respiration 16 blood pressure 111/47 pulse ox 92% on 4 L nasal cannula Laboratory data reveals a white blood count of 5.4 hemoglobin 11.5 platelet count 193 sodium 131 potassium 4.1 chloride 100 CO2 26 BUN 12 creatinine 0.85 Testing in the emergency room revealed chest x-ray done in the emergency room revealed cardiomegaly with prominent pulmonary vascular markings 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 ,States yeast infection in genital area and folds of abd., diet controlled diabetes., has stimulator left hip for back pain (not working)., PAD. History of Any Multi-Drug Resistant Organisms: None Reported Past Surgical History: Appendectomy, Back Surgery, Bladder Surgery, Cholecystectomy, Hysterectomy, Joint Replacement Additional Past Surgical History / Comment(s): Bilateral knee replacements, right shoulder rotator cuff X2, bilateral iliac femoral stents, bladder s uspension X2, right Mediport removed, left lung biopsy, lymph node biopsy, left groin biopsy(malignant). bilateral carpal tunnel, bilateral cataracts, right shoulder replacement. stimulator in hip (left) for back, bilateral iliac arterial stents., R femoral stent Past Anesthesia/Blood Transfusion Reactions: No Reported Reaction, Family History of Problems w/ Anesthesia Additional Past Anesthesia/Blood Transfusion Reaction / Comment(s): Claustroph obic., vomited and aspirated during colonoscopy. son had difficulty waking up after surgery Past Psychological History: Anxiety, Depression Smoking Status: Former smoker, Vaper Past Alcohol Use History: None Reported Past Drug Use History: None Reported - Past Family History Sister(s) Family Medical History: Cancer Additional Family Medical History / Comment(s): Lung cancer. other sister heart failure Brother(s) Family Medical History: Cancer Additional Family Medical History / Comment(s): Lung cancer. Mother Family Medical History: Cancer Additional Family Medical History / Comment(s): Drugs and alcohol - of. Ear lobe cancer. Father Family Medical History: Cancer, Hyperlipidemia, Hypertension Additional Family Medical History / Comment(s): Skin cancer. Medications and Allergies Home Medications Medication Instructions Recorded Confirmed Type Clopidogrel [Plavix] 75 mg PO DAILY 08/15/16 10/06/23 History Levothyroxine Sodium [Synthroid] 25 mcg PO DAILY 08/15/16 10/06/23 History FLUoxetine HCL [PROzac] 40 mg PO DAILY 07/25/20 10/06/23 History Gabapentin [Neurontin] 300 mg PO BID 08/03/22 10/06/23 History Aspirin 81 mg PO DAILY #30 tab 08/10/22 10/06/23 Rx ALPRAZolam [Xanax] 0.25 mg PO DAILY PRN 04/04/23 10/06/23 History Atorvastatin [Lipitor] 80 mg PO HS 04/04/23 10/06/23 History Gabapentin 600 mg PO BID 04/04/23 10/06/23 History carBAMazepine [carBAMazepine ER] 100 mg PO BID 04/04/23 10/06/23 History levETIRAcetam [Keppra] 750 mg PO BID 07/19/23 10/06/23 History Furosemide [Lasix] 40 mg PO BID@0900,1400 08/08/23 10/06/23 History Albuterol Nebulized [Ventolin 2.5 mg INHALATION RT-TID 09/10/23 10/06/23 History Nebulized] Ferrous Sulfate [Feosol] 325 mg PO BID 09/10/23 10/06/23 History HYDROcodone/APAP 5-325MG [[place] 1 tab PO TID 09/10/23 10/06/23 History 5-325] traZODone HCL [Desyrel] 100 mg PO HS 09/10/23 10/06/23 History Allergies Allergy/AdvReac Type Severity Reaction Status Date / Time erythromycin base Allergy Rash/Hives Verified 10/06/23 14:18 Fish Containing Products Allergy Anaphylaxis Verified 10/06/23 14:18 Penicillins Allergy Anaphylaxis Verified 10/06/23 14:18 shellfish derived [Shellfish] Allergy Anaphylaxis Verified 10/06/23 14:18 levofloxacin [From Levaquin] AdvReac Rash/Hives, Verified 10/06/23 14:18 swelling Physical Exam Vitals: Vital Signs Temp Pulse Pulse Resp BP BP BP 10/07/23 08:33 69 10/07/23 08:25 73 10/07/23 07:00 98 F 70 16 123/64 10/07/23 03:56 102/69 10/07/23 02:00 99.1 F 63 16 86/49 10/06/23 22:32 72 10/06/23 22:29 98.0 F 67 16 125/74 10/06/23 22:21 71 10/06/23 22:03 71 16 136/51 10/06/23 17:00 79 16 151/76 10/06/23 16:00 80 16 132/54 10/06/23 13:04 99.1 F 70 16 111/47 Pulse Ox 10/07/23 08:33 10/07/23 08:25 97 10/07/23 07:00 93 L 10/07/23 03:56 10/07/23 02:00 98 10/06/23 22:32 10/06/23 22:29 97 10/06/23 22:21 10/06/23 22:03 99 10/06/23 17:00 97 10/06/23 16:00 97 10/06/23 13:04 92 L Intake and Output 10/06/23 10/07/23 10/07/23 22:59 06:59 14:59 Intake Total 590 118 Output Total 300 Balance 290 118 Intake: Oral 590 118 Output: Urine 300 Other: Voiding Method External Catheter # Voids 1 1 Weight 83.007 kg In general patient is alert and oriented x 3 in no distress HEENT head normocephalic and atraumatic Neck is supple no JVD no goiter no lymphadenopathy no carotid bruit Chest examination is clear to auscultation no crackles no wheezing Cardiac exam reveals regular heart sounds S1 and S2 no gallops no murmurs Abdomen is soft nontender no organomegaly with normal bowel sounds Extremity exam reveals right foot with complete toes amputation Neurological examination reveals no gross focal deficits Results CBC & Chem 7: 10/06/23 14:16 10/06/23 14:16 Labs: Abnormal Lab Results - Last 24 Hours (Table) 10/06/23 10/06/23 10/06/23 Range/Units 14:16 14:16 17:42 RBC 3.77 L (3.80-5.40) m/uL RDW 18.8 H (11.5-15.5) % Sodium 131 L (137-145) mmol/L Calcium 8.3 L (8.4-10.2) mg/dL AST 37 H (14-36) U/L Total Protein 5.9 L (6.3-8.2) g/dL Ur Leukocyte Esterase Small H (Negative) Assessment and Plan Plan: Worsening shortness of breath Episodes of severe diarrhea Acute diastolic congestive heart failure exacerbation Underlying history of COPD Underlying history of hypertension Underlying history of peripheral vascular disease Underlying history of obstructive sleep apnea maintained on CPAP Underlying history of diabetes mellitus Previous history of anal cancer with radiation therapy in 2016 Previous history of kidney stones At this time patient was seen and examined Home medications reviewed and reordered She was given IV Lasix Pulmonary consultation and cardiology consultation requested regarding worsening shortness of breath Will check stools for C. difficile For DVT prophylaxis subcu Lovenox Will continue to follow closely
[2023-10-07] MEDS: GABAPENTIN 300 MG CAP PO SCH ×2 (22:32)
[2023-10-07] MEDS: NYSTATIN 100,000 UNIT/GM POWD 15 GM TOPICAL SCH (22:32)
[2023-10-08] MEDS ORDERED: RX INFO: IV CONTRAST WAS GIVEN 1 EACH MISC MISCELLANE PRN (07:57)
[2023-10-08] MEDS: ENOXAPARIN 40 MG/0.4 ML SYRINGE SQ SCH (08:30)
--- NOTE | 2023-10-08 10:43 | P.PN ---
Subjective Progress Note Date: 10/08/23 Alexia Rubin, is a 73-year-old female who presented to [facility] emergency room with a chief complaint of generalized weakness, worsening shortness of breath, and diarrhea. She was evaluated in the emergency room vital examination on presentation revealed a temperature of 99.1 pulse 70 respiration 16 blood pressure 111/47 pulse ox 92% on 4 L nasal cannula Laboratory data reveals a white blood count of 5.4 hemoglobin 11.5 platelet count 193 sodium 131 potassium 4.1 chloride 100 CO2 26 BUN 12 creatinine 0.85 Testing in the emergency room revealed chest x-ray done in the emergency room revealed cardiomegaly with prominent pulmonary vascular markings Patient was admitted to medical floor for further evaluation and treatment on 10/08/2023 patient is alert and oriented 3. CT of chest ordered per pulmonary.awaiting cardiology input. Current vital signs temp 98.2, heart rate 72, respiratory rate 16, blood pressure 120/65 and pulse ox is 97% on 2 L Objective - Vital Signs Vital signs: Vital Signs Temp 98.2 F 10/08/23 07:00 Pulse 72 10/08/23 08:11 Resp 16 10/08/23 07:00 BP 120/65 10/08/23 07:00 Pulse Ox 97 10/08/23 07:00 FiO2 Intake & Output 10/07/23 10/08/23 10/08/23 18:59 06:59 18:59 Intake Total 236 Balance 236 Intake: Oral 236 Other: Voiding Method Diaper Diaper Incontinent Incontinent # Voids 1 1 - Exam In general patient is alert and oriented x 3 in no distress HEENT head normocephalic and atraumatic Neck is supple no JVD no goiter no lymphadenopathy no carotid bruit Chest examination is clear to auscultation no crackles no wheezing Cardiac exam reveals regular heart sounds S1 and S2 no gallops no murmurs Abdomen is soft nontender no organomegaly with normal bowel sounds Extremity exam reveals right foot with complete toes amputation Neurological examination reveals no gross focal deficits - Labs CBC & Chem 7: 10/06/23 14:16 10/06/23 14:16 Assessment and Plan Plan: Worsening shortness of breath Episodes of severe diarrhea Acute diastolic congestive heart failure exacerbation Underlying history of COPD Underlying history of hypertension Underlying history of peripheral vascular disease Underlying history of obstructive sleep apnea maintained on CPAP Underlying history of diabetes mellitus Previous history of anal cancer with radiation therapy in 2016 Previous history of kidney stones At this time patient was seen and examined Home medications reviewed and reordered She was given IV Lasix Pulmonary consultation and cardiology consultation requested regarding worsening shortness of breath Will check stools for C. difficile CT of chest ordered per pulmonary For DVT prophylaxis subcu Lovenox Will continue to follow closely
[2023-10-08 10:45] LABS: Basophils # (A) 0.03 X 10*3/uL (0.00-0.10); Basophils % (A) 0.6 %; Eosinophils # (A) 0.08 X 10*3/uL (0.04-0.35); Eosinophils % (A) 1.6 %; HCT 38.6 % (37.2-46.3); HGB 12.1 g/dL (12.0-15.0); Lymphocytes % (A) 43.2 %; MCH 29.8 pg (27.0-32.0); MCHC 31.3 g/dL (32.0-37.0); MCV 95.1 FL (80.0-97.0); Mean Platelet Volume 10.8 FL (9.5-12.2); Monocytes # (A) 0.56 X 10*3/uL (0.20-1.00); NRBC Per 100 WBC 0 X 10*3/uL (0.00-0.01); Neutrophils % (A) 43.2 %; Platelet Count 212 X 10*3/uL (140-440); RBC 4.06 X 10*6/uL (4.10-5.20); RDW 18.4 % (11.5-14.5); WBC 5.09 X 10*3/uL (4.50-10.00)
[2023-10-08 10:48] LABS: ALT 20 U/L (8-44); AST 38 U/L (13-35); Albumin 3.8 g/dL (3.8-4.9); Albumin/Globulin Ratio 1.81 Ratio (1.60-3.17); Alkaline Phosphatase 72 U/L (41-126); BUN/Creat Ratio 14.18 Ratio (12.00-20.00); Blood Urea Nitrogen 15.6 mg/dL (9.0-27.0); Calcium 8.4 mg/dL (8.7-10.3); Carbon Dioxide 22.3 mmol/L (21.6-31.8); Chloride 98 mmol/L (96-109); Globulin 2.1 g/dL (1.6-3.3); Glucose 101 mg/dL (70-110); Potassium 3.5 mmol/L (3.5-5.5); Sodium 136 mmol/L (135-145); Total Bilirubin 0.3 mg/dL (0.3-1.2); Total Protein 5.9 g/dL (6.2-8.2)
--- NOTE | 2023-10-08 11:38 | P.CRDCN ---
History of Present Illness History of present illness: HISTORY OF PRESENT ILLNESS: This is a 73-year-old female with a past medical history significant for peripheral vascular disease, diabetes, hyperlipidemia, and anxiety. Patient follows in the office with Dr. Genao. We have been asked to see the patient in consultation for congestive heart failure. Patient examined at the bedside. Patient states she has been feeling short of breath for the past 4 to 5 days. She also reports having some lightheadedness. She reports increased lower extremity edema. She states that she has been compliant with her medications and also with a low-sodium diet. She denies any chest pain or pressure. Vital signs are stable. DIAGNOSTICS: - EKG reveals sinus mechanism with no signs of acute ischemia. - Chest xray cardiomegaly and prominent pulmonary vascular markings and diffuse increased lung markings may correlate with congestive heart failure.. - Laboratory data: WBC 5.4. Hemoglobin 11.5. Platelet count 193. Sodium 131. Potassium 4.1. BUN 12. Creatinine 0.85. Lactic acid 1.3. Troponin negative x 1. proBNP 1760. - Current home cardiac medications include Lasix 40 mg twice a day, Plavix 75 mg daily, Lipitor 80 mg at night, aspirin 81 mg daily. - Most recent echocardiogram obtained in July 2023 reveals ejection fraction 60 to 65%, mild mitral stenosis, trace to mild MR, mild AR, mild to moderate TR -Patient underwent Lexiscan stress test in April 2020 which was negative for ischemia REVIEW OF SYSTEMS: At the time of my exam: CONSTITUTIONAL: Denies fever or chills. HEENT: Denies blurred vision, vision changes, or eye pain. Denies hemoptysis CARDIOVASCULAR: Denies chest pain. Denies orthopnea. Denies PND. Denies pal pitations RESPIRATORY: Denies shortness of breath. GASTROINTESTINAL: Denies abdominal pain. Denies nausea or vomiting. HEMATOLOGIC: Denies bleeding disorders. GENITOURINARY: Denies any blood in urine. SKIN: Denies pruitis. Denies rash. PHYSICAL EXAM: VITAL SIGNS: Reviewed. GENERAL: Well-developed in no acute distress. HEENT: Head is normocephalic. Pupils are equal, round. Sclerae anicteric. Mucous membranes of the mouth are moist. Neck supple. No JVD or thyromegaly LUNGS: Respirations even and unlabored. Lungs essentially clear to auscultation bilaterally. HEART: Regular rate and rhythm. S1 and S2 heard. Systolic murmur noted. ABDOMEN: Soft. Nondistended. Nontender. EXTREMITIES: Normal range of motion. No clubbing or cyanosis. Peripheral pulses intact. 1-2+ bilateral lower extremity edema NEUROLOGIC: Awake and alert. Oriented x 3. ASSESSMENT: Acute on chronic heart failure with preserved EF, 60 to 65% Chronic hypoxic respiratory failure on home oxygen Diarrhea Peripheral vascular disease, status post right femoral to anterior tibial artery bypass, 2022 Diabetes Hyperlipidemia Anxiety Obesity: BMI 32.4 History of obstructive sleep apnea on CPAP PLAN: No need to repeat echocardiogram as this was performed in July 2023 Resume home cardiac medications Patient did receive a one-time dose of IV Lasix in the ER. Will give patient an additional dose of Lasix 20 mg IV x 1 and then continue with oral diuretics Daily weights, accurate intake and output, and monitoring of kidney function Further recommendations pending patient course Nurse practitioner note has been reviewed by physician. Signing provider agrees with the documented findings, assessment, and plan of care documented by BENDING MACHINE SET UP OPERATOR as a scribe. 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 ,States yeast infection in genital area and folds of abd., diet controlled diabetes., has stimulator left hip for back pain (not working)., PAD. History of Any Multi-Drug Resistant Organisms: None Reported Past Surgical History: Appendectomy, Back Surgery, Bladder Surgery, Cholecystectomy, Hysterectomy, Joint Replacement Additional Past Surgical History / Comment(s): Bilateral knee replacements, right shoulder rotator cuff X2, bilateral iliac femoral stents, bladder suspension X2, right Mediport removed, left lung biopsy, lymph node biopsy, left groin biopsy(malignant). bilateral carpal tunnel, bilateral cataracts, right shoulder replacement. stimulator in hip (left) for back, bilateral iliac arterial stents., R femoral stent Past Anesthesia/Blood Transfusion Reactions: No Reported Reaction, Family History of Problems w/ Anesthesia Additional Past Anesthesia/Blood Transfusion Reaction / Comment(s): Claustrophobic., vomited and aspirated during colonoscopy. son had difficulty waking up after surgery Past Psychological History: Anxiety, Depression Smoking Status: Former smoker, Vaper Past Alcohol Use History: None Reported Past Drug Use History: None Reported - Past Family History Sister(s) Family Medical History: Cancer Additional Family Medical History / Comment(s): Lung cancer. other sister heart failure Brother(s) Family Medical History: Cancer Additional Family Medical History / Comment(s): Lung cancer. Mother Family Medical History: Cancer Additional Family Medical History / Comment(s): Drugs and alcohol - of. Ear lobe cancer. Father Family Medical History: Cancer, Hyperlipidemia, Hypertension Additional Family Medical History / Comment(s): Skin cancer. Medications and Allergies Home Medications Medication Instructions Recorded Confirmed Type Clopidogrel [Plavix] 75 mg PO DAILY 08/15/16 10/06/23 History Levothyroxine Sodium [Synthroid] 25 mcg PO DAILY 08/15/16 10/06/23 History FLUoxetine HCL [PROzac] 40 mg PO DAILY 07/25/20 10/06/23 History Gabapentin [Neurontin] 300 mg PO BID 08/03/22 10/06/23 History Aspirin 81 mg PO DAILY #30 tab 08/10/22 10/06/23 Rx ALPRAZolam [Xanax] 0.25 mg PO DAILY PRN 04/04/23 10/06/23 History Atorvastatin [Lipitor] 80 mg PO HS 04/04/23 10/06/23 History Gabapentin 600 mg PO BID 04/04/23 10/06/23 History carBAMazepine [carBAMazepine ER] 100 mg PO BID 04/04/23 10/06/23 History levETIRAcetam [Keppra] 750 mg PO BID 07/19/23 10/06/23 History Furosemide [Lasix] 40 mg PO BID@0900,1400 08/08/23 10/06/23 History Albuterol Nebulized [Ventolin 2.5 mg INHALATION RT-TID 09/10/23 10/06/23 History Nebulized] Ferrous Sulfate [Feosol] 325 mg PO BID 09/10/23 10/06/23 History HYDROcodone/APAP 5-325MG [[place] 1 tab PO TID 09/10/23 10/06/23 History 5-325] traZODone HCL [Desyrel] 100 mg PO HS 09/10/23 10/06/23 History Allergies Allergy/AdvReac Type Severity Reaction Status Date / Time erythromycin base Allergy Rash/Hives Verified 10/06/23 14:18 Fish Containing Products Allergy Anaphylaxis Verified 10/06/23 14:18 Penicillins Allergy Anaphylaxis Verified 10/06/23 14:18 shellfish derived [Shellfish] Allergy Anaphylaxis Verified 10/06/23 14:18 levofloxacin [From Levaquin] AdvReac Rash/Hives, Verified 10/06/23 14:18 swelling Physical Exam Vitals: Vital Signs Temp Pulse Pulse Resp BP Pulse Ox 10/08/23 02:35 98.6 F 71 16 97/66 94 L 10/08/23 02:00 71 10/07/23 22:32 70 10/07/23 21:05 98.0 F 70 16 114/66 96 10/07/23 20:35 74 10/07/23 20:23 80 10/07/23 15:44 98.4 F 65 16 104/62 96 10/07/23 14:24 98.0 F 68 18 108/58 95 10/07/23 08:33 69 10/07/23 08:25 73 97 Intake and Output 10/07/23 10/08/23 10/08/23 22:59 06:59 14:59 Intake Total 0 Balance 0 Intake: Oral 0 Other: Voiding Method Diaper Incontinent # Voids 1 1 Results 10/08/23 06:17 10/08/23 06:17 Current Medications Generic Name Dose Route Start Last Admin Trade Name Freq PRN Reason Stop Dose Admin Acetaminophen 650 mg 10/07/23 03:56 Acetaminophen Tab 325 Mg Tab PO Q6HR PRN Fever and/ or Pain Albuterol Sulfate 2.5 mg 10/06/23 20:00 10/07/23 20:23 Albuterol Nebulized 2.5 Mg/3 Ml INHALATION 2.5 mg RT-TID RUTH Administration Aspirin 81 mg 10/07/23 09:00 10/07/23 09:28 Aspirin 81 Mg PO 81 mg DAILY RUTH Administration Atorvastatin Calcium 80 mg 10/06/23 21:00 10/07/23 22:32 Atorvastatin 80 Mg Tab PO 80 mg HS RUTH Administration Carbamazepine 100 mg 10/06/23 21:00 10/07/23 22:32 Carbamazepine 100 Mg Tab.Er.12h PO 100 mg BID RUTH Administration Clopidogrel Bisulfate 75 mg 10/07/23 09:00 10/07/23 09:29 Clopidogrel 75 Mg Tab PO 75 mg DAILY RUTH Administration Enoxaparin Sodium 40 mg 10/08/23 09:00 Enoxaparin 40 Mg/0.4 Ml Syringe SQ DAILY RUTH Ferrous Sulfate 325 mg 10/06/23 21:00 10/07/23 22:32 Ferrous Sulfate 325 Mg Tab PO 325 mg BID RUTH Administration Fluoxetine HCl 40 mg 10/07/23 09:00 10/07/23 09:28 Fluoxetine Hcl 20 Mg Cap PO 40 mg DAILY RUTH Administration Furosemide 40 mg 10/07/23 09:00 10/07/23 14:11 Furosemide 40 Mg Tab PO 40 mg BID@0900,1400 RUTH Administration Gabapentin 300 mg 10/07/23 21:30 10/07/23 22:32 Gabapentin 300 Mg Cap PO 300 mg BID RUTH Administration Gabapentin 600 mg 10/07/23 21:30 10/07/23 22:32 Gabapentin 300 Mg Cap PO 600 mg BID RUTH Administration Levetiracetam 750 mg 10/06/23 21:00 10/07/23 22:32 Levetiracetam 750 Mg Tab PO 750 mg BID RUTH Administration Levothyroxine Sodium 25 mcg 10/07/23 06:30 10/08/23 06:27 Levothyroxine 25 Mcg Tab PO 25 mcg 0630 RUTH Administration Naloxone HCl 0.2 mg 10/06/23 18:57 Naloxone 0.4 Mg/Ml 1 Ml Vial IV Q2M PRN Opioid Reversal Nystatin 1 applic 10/07/23 21:00 10/07/23 22:32 Nystatin 100,000 Unit/Gm Powd 15 Gm TOPICAL 1 applic BID RUTH Administration Protocol Trazodone HCl 100 mg 10/06/23 22:30 10/07/23 22:32 Trazodone Hcl 100 Mg Tab PO 100 mg HS RUTH Administration Intake and Output 10/07/23 10/08/23 10/08/23 22:59 06:59 14:59 Intake Total 0 Balance 0 Intake: Oral 0 Other: Voiding Method Diaper Incontinent # Voids 1 1 10/06/23 14:16 10/06/23 14:16
--- NOTE | 2023-10-08 12:12 | P.CNPUL ---
History of Present Illness Consult date: 10/08/23 Requesting physician: Lisseth Isaac Reason for consult: abnormal CXR/CT Chief complaint: Generalized weakness, fatigue History of present illness: This is a pleasant 73-year-old female patient with a known history of chronic obstructive pulmonary disease, CVA/TIA, diabetes mellitus, hypertension, hypothyroidism. She also has biopsy-proven smoking relatedinterstitial lung disease. A recent CT scan of the chest in July 2023 that revealed diffuse interstitial densities with groundglass there is also a 3 cm masslike consolidative density in the right lower lobe medially. Suspicious for atel ectasis versus neoplasm versus chronic infiltrate. A PET scan from August 19, 2023 revealed right lower lobe pulmonary nodule with increased metabolic activity compatible with malignancy. There is at least 1 right pulmonary hilum lymph node suspicious for metastatic disease. Extensive interstitial opacities along suspicious for ILD versus CHF. She has been followed in our office. She was given a trial of steroids for 4 weeks and was due for a follow-up CT scan of the chest on October 11, 2023. She presented here to the emergency room on 10/06/2023 with complaints of generalized weakness and fatigue. Having issues with diarrhea as well. She felt dizzy and without much energy. Chest x-ray again reveals cardiomegaly and prominent pulmonary vascular markings. White count 5.0. Hemoglobin 12.1. Platelets 212. Sodium 136. Potassium 3.5. Bicarb 22. BUN 16. Creatinine 1.1. Glucose 101. Urinalysis clean. Viral screen was negative. She is seen today in consultation. She is resting in bed. Awake and alert in no acute distress. Still having complaints of fatigue. Denies any worsening shortness of breath, cough or congestion. She is afebrile. Hemodynamically stable. Maintaining O2 saturations in the mid 90s on 2 L/min per nasal cannula. Review of Systems REVIEW OF SYSTEMS: CONSTITUTIONAL: Positive for generalized weakness and fatigue. Denies any recent significant weight loss or weight gain. EYES: Denies change in vision. EARS, NOSE, MOUTH, THROAT: Denies headaches, denies sore throat. CARDIOVASCULAR: Denies chest pain, palpitations or syncopal episodes. RESPIRATORY: Denies shortness of breath, cough, congestion or hemoptysis. GASTROINTESTINAL: Positive for diarrhea. GENITOURINARY: Denies hematuria, denies infections. MUSKULOSKELETAL: Denies pain, denies swelling. INTEGUMENTARY: Denies rash, denies eczema. NEUROLOGICAL: Denies recent memory loss, no recent seizure activity. PSYCHIATRIC: Denies anxiety, denies depression. HEMATOLOGIC/LYMPHATIC: Denies anemia, denies enlarged lymph nodes. 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 ,States yeast infection in genital area and folds of abd., diet controlled diabetes., has stimulator left hip for back pain (not working)., PAD. History of Any Multi-Drug Resistant Organisms: None Reported Past Surgical History: Appendectomy, Back Surgery, Bladder Surgery, Cholecystectomy, Hysterectomy, Joint Replacement Additional Past Surgical History / Comment(s): Bilateral knee replacements, right shoulder rotator cuff X2, bilateral iliac femoral stents, bladder suspension X2, right Mediport removed, left lung biopsy, lymph node biopsy, left groin biopsy(malignant). bilateral carpal tunnel, bilateral cataracts, right shoulder replacement. stimulator in hip (left) for back, bilateral iliac arterial stents., R femoral stent Past Anesthesia/Blood Transfusion Reactions: No Reported Reaction, Family History of Problems w/ Anesthesia Additional Past Anesthesia/Blood Transfusion Reaction / Comment(s): Claustrophobic., vomited and aspirated during colonoscopy. son had difficulty waking up after surgery Past Psychological History: Anxiety, Depression Smoking Status: Former smoker, Vaper Past Alcohol Use History: None Reported Past Drug Use History: None Reported - Past Family History Sister(s) Family Medical History: Cancer Additional Family Medical History / Comment(s): Lung cancer. other sister heart failure Brother(s) Family Medical History: Cancer Additional Family Medical History / Comment(s): Lung cancer. Mother Family Medical History: Cancer Additional Family Medical History / Comment(s): Drugs and alcohol - of. Ear lobe cancer. Father Family Medical History: Cancer, Hyperlipidemia, Hypertension Additional Family Medical History / Comment(s): Skin cancer. Medications and Allergies Home Medications Medication Instructions Recorded Confirmed Type Clopidogrel [Plavix] 75 mg PO DAILY 08/15/16 10/06/23 History Levothyroxine Sodium [Synthroid] 25 mcg PO DAILY 08/15/16 10/06/23 History FLUoxetine HCL [PROzac] 40 mg PO DAILY 07/25/20 10/06/23 History Gabapentin [Neurontin] 300 mg PO BID 08/03/22 10/06/23 History Aspirin 81 mg PO DAILY #30 tab 08/10/22 10/06/23 Rx ALPRAZolam [Xanax] 0.25 mg PO DAILY PRN 04/04/23 10/06/23 History Atorvastatin [Lipitor] 80 mg PO HS 04/04/23 10/06/23 History Gabapentin 600 mg PO BID 04/04/23 10/06/23 History carBAMazepine [carBAMazepine ER] 100 mg PO BID 04/04/23 10/06/23 History levETIRAcetam [Keppra] 750 mg PO BID 07/19/23 10/06/23 History Furosemide [Lasix] 40 mg PO BID@0900,1400 08/08/23 10/06/23 History Albuterol Nebulized [Ventolin 2.5 mg INHALATION RT-TID 09/10/23 10/06/23 History Nebulized] Ferrous Sulfate [Feosol] 325 mg PO BID 09/10/23 10/06/23 History HYDROcodone/APAP 5-325MG [[place] 1 tab PO TID 09/10/23 10/06/23 History 5-325] traZODone HCL [Desyrel] 100 mg PO HS 09/10/23 10/06/23 History Allergies Allergy/AdvReac Type Severity Reaction Status Date / Time erythromycin base Allergy Rash/Hives Verified 10/06/23 14:18 Fish Containing Products Allergy Anaphylaxis Verified 10/06/23 14:18 Penicillins Allergy Anaphylaxis Verified 10/06/23 14:18 shellfish derived [Shellfish] Allergy Anaphylaxis Verified 10/06/23 14:18 levofloxacin [From Levaquin] AdvReac Rash/Hives, Verified 10/06/23 14:18 swelling Physical Exam Vitals: Vital Signs Temp Pulse Pulse Resp BP Pulse Ox 10/08/23 08:11 72 10/08/23 08:00 72 10/08/23 07:00 98.2 F 66 16 120/65 97 10/08/23 02:35 98.6 F 71 16 97/66 94 L 10/08/23 02:00 71 10/07/23 22:32 70 10/07/23 21:05 98.0 F 70 16 114/66 96 10/07/23 20:35 74 10/07/23 20:23 80 10/07/23 15:44 98.4 F 65 16 104/62 96 10/07/23 14:24 98.0 F 68 18 108/58 95 Intake and Output 10/07/23 10/08/23 10/08/23 22:59 06:59 14:59 Intake Total 0 Balance 0 Intake: Oral 0 Other: Voiding Method Diaper Diaper Incontinent Incontinent # Voids 1 1 GENERAL EXAM: Alert, pleasant 73-year-old female, resting in bed, on 2 L nasal cannula, fairly comfortable in no apparent distress. HEAD: Normocephalic. EYES: Normal reaction of pupils, equal size. NOSE: Clear with pink turbinates. THROAT: No erythema or exudates. NECK: No masses, no JVD. CHEST: No chest wall deformity. LUNGS: Equal air entry with coarse crackles bilaterally, diminished. CVS: S1 and S2 normal with no audible murmur, regular rhythm. ABDOMEN: No hepatosplenomegaly, normal bowel sounds, no guarding or rigidity. SPINE: No scoliosis or deformity SKIN: No rashes CENTRAL NERVOUS SYSTEM: No focal deficits, tone is normal in all 4 extremities. EXTREMITIES: There is no peripheral edema. No clubbing, no cyanosis. Peripheral pulses are intact. Results - Laboratory Findings CBC and BMP: 10/08/23 06:17 10/08/23 06:17 PT/INR, D-dimer PT 10.3 sec (10.0-12.5) 10/06/23 14:16 INR 0.9 (<1.2) 10/06/23 14:16 Abnormal lab findings: Abnormal Labs 10/06/23 10/06/23 10/06/23 14:16 14:16 17:42 RBC 3.77 L MCHC RDW 18.8 H Sodium 131 L Anion Gap Est GFR (CKD-EPI) Calcium 8.3 L AST 37 H Total Protein 5.9 L Ur Leukocyte Esterase Small H 10/08/23 10/08/23 06:17 06:17 RBC 4.06 L MCHC 31.3 L RDW 18.4 H Sodium Anion Gap 15.70 H Est GFR (CKD-EPI) 53 L Calcium 8.4 L AST 38 H Total Protein 5.9 L Ur Leukocyte Esterase - Diagnostic Findings Chest x-ray: image reviewed Assessment and Plan Assessment: Generalized weakness and fatigue suspect secondary to diarrhea, poor oral intake 3 cm masslike consolidative density in the right lower lobe being followed in the outpatient setting. A PET scan from August 19, 2023 revealed right lower lobe pulmonary nodule with increased metabolic activity compatible with malignancy. There is at least 1 right pulmonary hilum lymph node suspicious for metastatic disease. Extensive interstitial opacities along suspicious for ILD versus CHF. She was given a trial of steroids for 4 weeks and was due for a follow-up CT scan of the chest on October 11, 2023. History of of diastolic congestive heart failure and valvular heart disease, most recent echocardiogram estimated a preserved left ventricular ejection fraction of 60 to 65%, with mild to moderate tricuspid regurgitation, mild mitral stenosis, mild aortic regurgitation. Chronic hypoxemic respiratory failure, possibly secondary to above History of smoking-related interstitial fibrosis, biopsy-proven History of rectal cancer, status post chemo and radiation. Patient's most recent PET scan was from November, which did not show any new areas of abnormal hypermetabolic uptake to suggest active neoplastic recurrence. History of peripheral vascular occlusive disease, status post right femoral tibial bypass. History of previous right toe amputations Chronic microcytic, hypochromic anemia History obstructive sleep apnea History of hyperlipidemia History of CVA/TIA History of hypothyroidism History of frequent urinary tract infections Former tobacco smoker Plan: The patient was seen and evaluated Chest x-ray, labs and medications reviewed Stable and on 2 L nasal cannula Will obtain a CT scan of the chest This was due on 10/11/2023 after a month of steroids We will continue to follow and make further recommendations based on her clinical status I have personally seen and examined the patient, performed the documentation and the assessment and plan as written. Number of minutes spent on the visit: 20.
[2023-10-08] MEDS: FUROSEMIDE 10 MG/ML 2 ML VIAL IV STA (13:16)
--- NOTE | 2023-10-08 13:29 | CT ---
EXAMINATION TYPE: CT chest w con DATE OF EXAM: 10/08/2023 COMPARISON: 08/09/2023 HISTORY: right lung nodule CT DLP: 424.5 mGycm Automated exposure control for dose reduction was used. CONTRAST: CT scan of the chest is performed with IV Contrast, patient injected with 100 mL of Isovue 300. FINDINGS: LUNGS: Scattered fibrosis is redemonstrated. Fibrosis is at least moderate in degree. Resolution of l eft-sided pleural effusion. 3.0 x 3.1 cm right lower lobe pleural-based mass is again noted. Recent P ET/CT conference of malignancy. MEDIASTINUM: There are no greater than 1 cm mediastinal lymph nodes. 1.3 cm right hilar lymph node. No pericardial effusion is seen. Thoracic aorta is of normal caliber. The heart is not enlarged. UPPER ABDOMEN: No significant abnormality appreciated. OTHER: No additional significant abnormality is seen. IMPRESSION: 1. Pleural-based mass right lower lobe is essentially unchanged in overall size and appearance. There may be interval minimal early cavitation. 2. Pulmonary fibrosis at least moderate in degree.
[2023-10-08] MEDS: ONDANSETRON 4 MG/2 ML VIAL IVP PRN (16:43)
[2023-10-09 07:59] LABS: Anisocytosis Slight; Basophils % (A) 1 %; Eosinophils # (A) 0.1 k/uL (0-0.7); Eosinophils % (A) 3 %; HCT 38.8 % (34.0-46.0); HGB 12.2 gm/dL (11.4-16.0); Lymphocytes # (A) 1.5 k/uL (1.0-4.8); Lymphocytes % (A) 34 %; MCH 29.9 pg (25.0-35.0); MCHC 31.4 g/dL (31.0-37.0); MCV 95.1 fL (80.0-100.0); Mean Platelet Volume 8.1; Monocytes # (A) 0.4 k/uL (0-1.0); Monocytes % (A) 9 %; Neutrophils # (A) 2.2 k/uL (1.3-7.7); Neutrophils % (A) 50 %; Platelet Count 210 k/uL (150-450); RBC 4.08 m/uL (3.80-5.40); RDW 18.5 % (11.5-15.5); WBC 4.5 k/uL (3.8-10.6)
[2023-10-09 08:00] LABS: ALT 20 U/L (4-34); AST 37 U/L (14-36); African American GFR (CKD) 65 (>60 ml/min/1.73 sqM); Albumin 3.6 g/dL (3.5-5.0); Albumin/Globulin Ratio 1.5; Alkaline Phosphatase 77 U/L (38-126); Anion Gap 7 mmol/L; Blood Urea Nitrogen 15 mg/dL (7-17); Calcium 8.6 mg/dL (8.4-10.2); Carbon Dioxide 29 mmol/L (22-30); Chloride 99 mmol/L (98-107); Globulin 2.4 g/dL; Glucose 112 mg/dL (74-99); Non-African American GFR(CKD) 57 (>60 ml/min/1.73 sqM); Potassium 3.1 mmol/L (3.5-5.1); Sodium 135 mmol/L (137-145); Total Bilirubin 0.5 mg/dL (0.2-1.3)
--- NOTE | 2023-10-09 10:06 | P.PN ---
Subjective Progress Note Date: 10/09/23 Alexia Rubin, is a 73-year-old female who presented to [facility] emergency room with a chief complaint of generalized weakness, worsening shortness of breath, and diarrhea. She was evaluated in the emergency room vital examination on presentation revealed a temperature of 99.1 pulse 70 respiration 16 blood pressure 111/47 pulse ox 92% on 4 L nasal cannula Laboratory data reveals a white blood count of 5.4 hemoglobin 11.5 platelet count 193 sodium 131 potassium 4.1 chloride 100 CO2 26 BUN 12 creatinine 0.85 Testing in the emergency room revealed chest x-ray done in the emergency room revealed cardiomegaly with prominent pulmonary vascular markings Patient was admitted to medical floor for further evaluation and treatment on 10/08/2023 patient is alert and oriented 3. CT of chest ordered per pulmonary.awaiting cardiology input. Current vital signs temp 98.2, heart rate 72, respiratory rate 16, blood pressure 120/65 and pulse ox is 97% on 2 L On 10/09/2023 patient is alert and oriented x 3. Patient still reporting some shortness of breath. Patient did receive an additional dose of IV Lasix per cardiology. Discussed case with patient and daughter on phone daughter requesting patient be DC'd to rehab. Consult for social work placed. PT OT services are following. Pulmonary and cardiology services following Objective - Vital Signs Vital signs: Vital Signs Temp 98.4 F 10/09/23 07:00 Pulse 68 10/09/23 08:04 Resp 14 10/09/23 08:00 BP 124/73 10/09/23 07:00 Pulse Ox 94 L 10/09/23 07:00 FiO2 Intake & Output 10/08/23 10/09/23 10/09/23 18:59 06:59 18:59 Intake Total 0 Balance 0 Intake: Oral 0 Other: Voiding Method Diaper Diaper Diaper Incontinent Incontinent Incontinent # Voids 2 3 - Exam In general patient is alert and oriented x 3 in no distress HEENT head normocephalic and atraumatic Neck is supple no JVD no goiter no lymphadenopathy no carotid bruit Chest examination is clear to auscultation no crackles no wheezing Cardiac exam reveals regular heart sounds S1 and S2 no gallops no murmurs Abdomen is soft nontender no organomegaly with normal bowel sounds Extremity exam reveals right foot with complete toes amputation Neurological examination reveals no gross focal deficits - Labs CBC & Chem 7: 10/09/23 06:08 10/09/23 06:08 Labs: Abnormal Lab Results - Last 24 Hours (Table) 10/08/23 10/08/23 10/09/23 Range/Units 06:17 06:17 06:08 RBC 4.06 L (4.10-5.20) X 10*6/uL MCHC 31.3 L (32.0-37.0) g/dL RDW 18.4 H 18.5 H (11.5-14.5) % Sodium (137-145) mmol/L Potassium (3.5-5.1) mmol/L Anion Gap 15.70 H (4.00-12.00) mmol/L Est GFR (CKD-EPI) 53 L (>=60) Glucose (74-99) mg/dL Calcium 8.4 L (8.7-10.3) mg/dL AST 38 H (13-35) U/L Total Protein 5.9 L (6.2-8.2) g/dL 10/09/23 Range/Units 06:08 RBC (4.10-5.20) X 10*6/uL MCHC (32.0-37.0) g/dL RDW (11.5-14.5) % Sodium 135 L (137-145) mmol/L Potassium 3.1 L (3.5-5.1) mmol/L Anion Gap (4.00-12.00) mmol/L Est GFR (CKD-EPI) (>=60) Glucose 112 H (74-99) mg/dL Calcium (8.7-10.3) mg/dL AST 37 H (13-35) U/L Total Protein 6.0 L (6.2-8.2) g/dL Assessment and Plan Plan: Worsening shortness of breath Episodes of severe diarrhea Acute diastolic congestive heart failure exacerbation Underlying history of COPD Underlying history of hypertension Underlying history of peripheral vascular disease Underlying history of obstructive sleep apnea maintained on CPAP Underlying history of diabetes mellitus Previous history of anal cancer with radiation therapy in 2016 Previous history of kidney stones At this time patient was seen and examined Home medications reviewed and reordered She was given IV Lasix Pulmonary consultation and cardiology consultation requested regarding worsening shortness of breath Will check stools for C. difficile CT of chest ordered per pulmonary Social work services consulted for ECF placement For DVT prophylaxis subcu Lovenox Will continue to follow closely
--- NOTE | 2023-10-09 11:21 | P.PN ---
Subjective Progress Note Date: 10/09/23 This is a pleasant 73-year-old female patient with a known history of chronic obstructive pulmonary disease, CVA/TIA, diabetes mellitus, hypertension, hypothyroidism. She also has biopsy-proven smoking relatedinterstitial lung disease. A recent CT scan of the chest in July 2023 that revealed diffuse in terstitial densities with groundglass there is also a 3 cm masslike consolidative density in the right lower lobe medially. Suspicious for atelectasis versus neoplasm versus chronic infiltrate. A PET scan from August 19, 2023 revealed right lower lobe pulmonary nodule with increased metabolic activity compatible with malignancy. There is at least 1 right pulmonary hilum lymph node suspicious for metastatic disease. Extensive interstitial opacities along suspicious for ILD versus CHF. She has been followed in our office. She was given a trial of steroids for 4 weeks and was due for a follow-up CT scan of the chest on October 11, 2023. She presented here to the emergency room on 10/06/2023 with complaints of generalized weakness and fatigue. Having issues with diarrhea as well. She felt dizzy and without much energy. Chest x-ray again reveals cardiomegaly and prominent pulmonary vascular markings. White count 5.0. Hemoglobin 12.1. Platelets 212. Sodium 136. Potassium 3.5. Bicarb 22. BUN 16. Creatinine 1.1. Glucose 101. Urinalysis clean. Viral screen was negative. She is seen today in consultation. She is resting in bed. Awake and alert in no acute distress. Still having complaints of fatigue. Denies any worsening shortness of breath, cough or congestion. She is afebrile. Hemodynamically stable. Maintaining O2 saturations in the mid 90s on 2 L/min per nasal cannula. The patient is seen today October 09, 2023 in follow-up on the regular medical floor. She is currently laying flat in bed. Awake and alert in no acute distress. Maintaining O2 saturations in the 90s on 2 L/min per nasal cannula. White count 4.5. Hemoglobin 12.2. Platelets 210. Sodium 135. Potassium 3.1. Bicarb 29. BUN 15. Creatinine 0.99. Glucose 112. She remains on bronchodilat ors. Lovenox for DVT prophylaxis. Remains on oral diuretics. CT scan of the chest revealed pleural-based mass right lower lobe is essentially unchanged in size and appearance. Pulmonary fibrosis at least moderate in degree. Objective - Vital Signs Vital signs: Vital Signs Temp 98.4 F 10/09/23 07:00 Pulse 68 10/09/23 08:04 Resp 14 10/09/23 08:00 BP 124/73 10/09/23 07:00 Pulse Ox 94 L 10/09/23 07:00 FiO2 Intake & Output 10/08/23 10/09/23 10/09/23 18:59 06:59 18:59 Intake Total 0 Balance 0 Intake: Oral 0 Other: Voiding Method Diaper Diaper Diaper Incontinent Incontinent Incontinent # Voids 2 3 - Exam GENERAL EXAM: Alert, 73-year-old female, resting flat in bed, on 2 L nasal cannula, comfortable in no apparent distress. HEAD: Normocephalic. EYES: Normal reaction of pupils, equal size. NOSE: Clear with pink turbinates. THROAT: No erythema or exudates. NECK: No masses, no JVD. CHEST: No chest wall deformity. LUNGS: Equal air entry with coarse crackles bilaterally, diminished. CVS: S1 and S2 normal with no audible murmur, regular rhythm. ABDOMEN: No hepatosplenomegaly, normal bowel sounds, no guarding or rigidity. SPINE: No scoliosis or deformity SKIN: No rashes CENTRAL NERVOUS SYSTEM: No focal deficits, tone is normal in all 4 extremities. EXTREMITIES: There is no peripheral edema. No clubbing, no cyanosis. Peripheral pulses are intact. - Labs CBC & Chem 7: 10/09/23 06:08 10/09/23 06:08 Labs: Abnormal Lab Results - Last 24 Hours (Table) 10/09/23 10/09/23 Range/Units 06:08 06:08 RDW 18.5 H (11.5-15.5) % Sodium 135 L (137-145) mmol/L Potassium 3.1 L (3.5-5.1) mmol/L Glucose 112 H (74-99) mg/dL AST 37 H (14-36) U/L Total Protein 6.0 L (6.3-8.2) g/dL Assessment and Plan Assessment: Generalized weakness and fatigue suspect secondary to diarrhea, poor oral intake 3 cm masslike consolidative density in the right lower lobe being followed in the outpatient setting. A PET scan from August 19, 2023 revealed right lower lobe pulmonary nodule with increased metabolic activity compatible with malignancy. There is at least 1 right pulmonary hilum lymph node suspicious for metastatic disease. Extensive interstitial opacities along suspicious for ILD versus CHF. She was given a trial of steroids for 4 weeks and was due for a follow-up CT sc an of the chest on October 11, 2023. CT scan of the chest was done yesterday 10/08/2023 that revealed similar pleural-based mass of the right lower lobe which is essentially unchanged in overall size and appearance. Possible minimal early cavitation. Pulmonary fibrosis at least moderate in degree. History of of diastolic congestive heart failure and valvular heart disease, most recent echocardiogram estimated a preserved left ventricular ejection fraction of 60 to 65%, with mild to moderate tricuspid regurgitation, mild mitral stenosis, mild aortic regurgitation. Chronic hypoxemic respiratory failure, secondary to above History of smoking-related interstitial fibrosis, biopsy-proven History of rectal cancer, status post chemo and radiation. Patient's most recent PET scan was from November, which did not show any new areas of abnormal hypermetabolic uptake to suggest active neoplastic recurrence. History of peripheral vascular occlusive disease, status post right femoral tibial bypass. History of previous right toe amputations Chronic microcytic, hypochromic anemia History obstructive sleep apnea History of hyperlipidemia History of CVA/TIA History of hypothyroidism History of frequent urinary tract infections Former tobacco smoker Plan: The patient was seen and evaluated CT scan of the chest, labs and medications reviewed Patient made aware that the right lower lobe mass is unchanged Also made aware her shortness of breath will not improve due to her ILD Cleared for discharge from the pulmonary standpoint Continue her home pulmonary medications, oxygen Follow-up in our office in 1 week I have personally seen and examined the patient, performed the documentation and the assessment and plan as written. Number of minutes spent on the visit: 10.
--- NOTE | 2023-10-09 12:50 | P.PN ---
Subjective Progress Note Date: 10/09/23 This is a 73-year-old female with a past medical history significant for peripheral vascular disease, diabetes, hyperlipidemia, and anxiety. Patient follows in the office with Dr. Genao. We have been asked to see the patient in consultation for congestive heart failure. Patient examined at the bedside. P atient states she has been feeling short of breath for the past 4 to 5 days. She also reports having some lightheadedness. She reports increased lower extremity edema. She states that she has been compliant with her medications and also with a low-sodium diet. She denies any chest pain or pressure. Vital signs are stable. DIAGNOSTICS: - EKG reveals sinus mechanism with no signs of acute ischemia. - Chest xray cardiomegaly and prominent pulmonary vascular markings and diffuse increased lung markings may correlate with congestive heart failure.. - Laboratory data: WBC 5.4. Hemoglobin 11.5. Platelet count 193. Sodium 131. Potassium 4.1. BUN 12. Creatinine 0.85. Lactic acid 1.3. Troponin negative x 1. proBNP 1760. - Current home cardiac medications include Lasix 40 mg twice a day, Plavix 75 mg daily, Lipitor 80 mg at night, aspirin 81 mg daily. - Most recent echocardiogram obtained in July 2023 reveals ejection fraction 60 to 65%, mild mitral stenosis, trace to mild MR, mild AR, mild to moderate TR -Patient underwent Lexiscan stress test in April 2020 which was negative for ischemia 10/09/2023 Patient was seen and examined resting comfortably in bed. Patient did have a vape pen at her bedside. Overall she does not feel her breathing is any better. She denies any lower extremity edema. She was seen by Dr. See this morning who according to the patient told her that she has significant pulmonary fibrosis and there is little that can be done for her. He remains on 40 mg Lasix twice daily. Objective - Vital Signs Vital signs: Vital Signs Temp 98.4 F 10/09/23 07:00 Pulse 68 10/09/23 08:04 Resp 14 10/09/23 08:00 BP 124/73 10/09/23 07:00 Pulse Ox 94 L 10/09/23 07:00 FiO2 Intake & Output 10/08/23 10/09/23 10/09/23 18:59 06:59 18:59 Intake Total 0 Balance 0 Intake: Oral 0 Other: Voiding Method Diaper Diaper Diaper Incontinent Incontinent Incontinent # Voids 2 3 - Exam GENERAL: Well-developed in no acute distress. HEENT: Head is normocephalic. Pupils are equal, round. Sclerae anicteric. Mucous membranes of the mouth are moist. Neck supple. No JVD or thyromegaly LUNGS: Respirations even and unlabored. Lungs with diminished air entry and coarse crackles bilaterally. HEART: Regular rate and rhythm. S1 and S2 heard. Systolic murmur noted. ABDOMEN: Soft. Nondistended. Nontender. EXTREMITIES: Normal range of motion. No clubbing or cyanosis. Peripheral pulses intact. no edema NEUROLOGIC: Awake and alert. Oriented x 3. - Labs CBC & Chem 7: 10/09/23 06:08 10/09/23 06:08 Labs: Abnormal Lab Results - Last 24 Hours (Table) 10/09/23 10/09/23 Range/Units 06:08 06:08 RDW 18.5 H (11.5-15.5) % Sodium 135 L (137-145) mmol/L Potassium 3.1 L (3.5-5.1) mmol/L Glucose 112 H (74-99) mg/dL AST 37 H (14-36) U/L Total Protein 6.0 L (6.3-8.2) g/dL Assessment and Plan Assessment: Acute on chronic heart failure with preserved EF, 60 to 65% Chronic hypoxic respiratory failure on home oxygen Interstitial lung disease, being followed by pulmonary Diarrhea Peripheral vascular disease, status post right femoral to anterior tibial artery bypass, 2022 Diabetes Hyperlipidemia Anxiety Obesity: BMI 32.4 History of obstructive sleep apnea on CPAP Plan: From cardiology's perspective medications were reviewed and we will continue the same at this time. Most of her breathing issues likely related to underlying interstitial fibrosis. Continue daily weights, accurate ERINN's and monitoring of renal function and electrolytes. Will continue to follow the patient provide further recommendations accordingly. Patient strongly encouraged nicotine cessation, vaping cessation ACCOUNT AUDITOR note has been reviewed, I agree with a documented findings and plan of care. Patient was seen and examined.
[2023-10-10] MEDS ORDERED: Potassium Replacement Protocol 1 EACH MISC MISCELLANE PRN (08:03)
[2023-10-10 09:20] LABS: Basophils # (A) 0.04 X 10*3/uL (0.00-0.10); Basophils % (A) 0.6 %; Eosinophils # (A) 0.14 X 10*3/uL (0.04-0.35); HCT 40.3 % (37.2-46.3); HGB 12.5 g/dL (12.0-15.0); Lymphocytes # (A) 2.07 X 10*3/uL (0.90-5.00); MCH 28.7 pg (27.0-32.0); MCV 92.6 FL (80.0-97.0); Mean Platelet Volume 9.9 FL (9.5-12.2); Monocytes # (A) 0.57 X 10*3/uL (0.20-1.00); NRBC Per 100 WBC 0 X 10*3/uL (0.00-0.01); Neutrophils % (A) 60.1 %; Platelet Count 257 X 10*3/uL (140-440); RBC 4.35 X 10*6/uL (4.10-5.20); RDW 17.9 % (11.5-14.5); WBC 7.14 X 10*3/uL (4.50-10.00)
[2023-10-10 09:26] LABS: ALT 19 U/L (8-44); AST 35 U/L (13-35); Albumin/Globulin Ratio 1.74 Ratio (1.60-3.17); Alkaline Phosphatase 71 U/L (41-126); BUN/Creat Ratio 13.15 Ratio (12.00-20.00); Blood Urea Nitrogen 17.1 mg/dL (9.0-27.0); Calcium 8.6 mg/dL (8.7-10.3); Carbon Dioxide 29.3 mmol/L (21.6-31.8); Chloride 98 mmol/L (96-109); Globulin 2.3 g/dL (1.6-3.3); Glucose 129 mg/dL (70-110); Potassium 3.4 mmol/L (3.5-5.5); Sodium 140 mmol/L (135-145); Total Bilirubin 0.3 mg/dL (0.3-1.2); Total Protein 6.3 g/dL (6.2-8.2)
--- NOTE | 2023-10-10 09:49 | P.DS ---
Providers Date of admission: 10/06/23 19:43 Expected date of discharge: 10/10/23 Attending physician: Lisseth Isaac Consults: 10/07/23 13:31 Consult Physician Routine Consulting Provider: Reji Genao Consult Reason/Comments: CHF Do you want consulting provider notified?: Yes 10/07/23 17:55 Consult Physician Routine Consulting Provider: Alexandra Adams Consult Reason/Comments: Shortness of breath Do you want consulting provider notified?: Yes Primary care physician: Lisseth Isaac [facility] Course: Diagnosis on discharge: Worsening shortness of breath Episodes of severe diarrhea Acute diastolic congestive heart failure exacerbation Underlying history of COPD Underlying history of interstitial lung disease Underlying history of hypertension Underlying history of peripheral vascular disease Underlying history of obstructive sleep apnea maintained on CPAP Underlying history of diabetes mellitus Previous history of anal cancer with radiation therapy in 2016 Previous history of kidney stones Hospital course: Alexia Rubin, is a 73-year-old female who presented to [facility] emergency room with a chief complaint of generalized weakness, worsening shortness of breath, and diarrhea. She was evaluated in the emergency room vital examination on presentation revealed a temperature of 99.1 pulse 70 respiration 16 blood pressure 111/47 pulse ox 92% on 4 L nasal cannula Laboratory data reveals a white blood count of 5.4 hemoglobin 11.5 platelet count 193 sodium 131 potassium 4.1 chloride 100 CO2 26 BUN 12 creatinine 0.85 Testing in the emergency room revealed chest x-ray done in the emergency room revealed cardiomegaly with prominent pulmonary vascular markings Patient was admitted to medical floor for further evaluation and treatment on 10/08/2023 patient is alert and oriented 3. CT of chest ordered per pulmonary.awaiting cardiology input. Current vital signs temp 98.2, heart rate 72, respiratory rate 16, blood pressure 120/65 and pulse ox is 97% on 2 L On 10/09/2023 patient is alert and oriented x 3. Patient still reporting some shortness of breath. Patient did receive an additional dose of IV Lasix per cardiology. Discussed case with patient and daughter on phone daughter requesting patient be DC'd to rehab. Consult for social work placed. PT OT services are following. Pulmonary and cardiology services following On 10/10/2023 patient was seen and examined on the medical floor she is alert and oriented x 3 in no apparent distress there is no fever or chills no headache or dizziness no chest pain no shortness of breath at rest no cough no nausea or vomiting no abdominal pain no diarrhea no urinary symptoms. Recommendation from cardiology and pulmonary were reviewed and discussed with the patient in details, she was counseled in length in regard to quitting all kinds of tobacco use including vaping, patient will be discharged to home today, she will be followed in our office in 2 to 3 days. Patient Condition at Discharge: Stable Plan - Discharge Summary New Discharge Prescriptions: New Nystatin 100,000 Unit/gm Powd [Mycostatin Powder] 1 applic TOPICAL BID 15 Days #100 each Albuterol Inhaler [Ventolin Hfa Inhaler] 2 puff INHALATION Q6H PRN 30 Days #1 each PRN Reason: Shortness Of Breath Continue Clopidogrel [Plavix] 75 mg PO DAILY Levothyroxine Sodium [Synthroid] 25 mcg PO DAILY Gabapentin [Neurontin] 300 mg PO BID Gabapentin 600 mg PO BID Atorvastatin [Lipitor] 80 mg PO HS Furosemide [Lasix] 40 mg PO BID@0900,1400 traZODone HCL [Desyrel] 100 mg PO HS Albuterol Nebulized [Ventolin Nebulized] 2.5 mg INHALATION RT-TID HYDROcodone/APAP 5-325MG [[place] 5-325] 1 tab PO TID Ferrous Sulfate [Iron (65 MG Elemental)] 325 mg PO BID FLUoxetine HCL [PROzac] 40 mg PO DAILY Aspirin 81 mg PO DAILY #30 tab carBAMazepine [carBAMazepine ER] 100 mg PO BID ALPRAZolam [Xanax] 0.25 mg PO DAILY PRN PRN Reason: Anxiety levETIRAcetam [Keppra] 750 mg PO BID Discharge Medication List Clopidogrel [Plavix] 75 mg PO DAILY 08/15/16 [History] Levothyroxine Sodium [Synthroid] 25 mcg PO DAILY 08/15/16 [History] FLUoxetine HCL [PROzac] 40 mg PO DAILY 07/25/20 [History] Gabapentin [Neurontin] 300 mg PO BID 08/03/22 [History] Aspirin 81 mg PO DAILY #30 tab 08/10/22 [Rx] ALPRAZolam [Xanax] 0.25 mg PO DAILY PRN 04/04/23 [History] Atorvastatin [Lipitor] 80 mg PO HS 04/04/23 [History] Gabapentin 600 mg PO BID 04/04/23 [History] carBAMazepine [carBAMazepine ER] 100 mg PO BID 04/04/23 [History] levETIRAcetam [Keppra] 750 mg PO BID 07/19/23 [History] Furosemide [Lasix] 40 mg PO BID@0900,1400 08/08/23 [History] Albuterol Nebulized [Ventolin Nebulized] 2.5 mg INHALATION RT-TID 09/10/23 [History] Ferrous Sulfate [Iron (65 MG Elemental)] 325 mg PO BID 09/10/23 [History] HYDROcodone/APAP 5-325MG [[place] 5-325] 1 tab PO TID 09/10/23 [History] traZODone HCL [Desyrel] 100 mg PO HS 09/10/23 [History] Albuterol Inhaler [Ventolin Hfa Inhaler] 2 puff INHALATION Q6H PRN 30 Days #1 each 10/10/23 [Rx] Nystatin 100,000 Unit/gm Powd [Mycostatin Powder] 1 applic TOPICAL BID 15 Days #100 each 10/10/23 [Rx] Follow up Appointment(s)/Referral(s): Lisseth Isaac MD [Primary Care Provider] - 1-2 days Alexandra Adams MD [STAFF PHYSICIAN] - 1 Week
[2023-10-10] MEDS: POTASSIUM CHLORIDE ER 20 MEQ TAB.ER PO STA (10:22)
--- NOTE | 2023-10-10 10:51 | P.PN ---
Subjective Progress Note Date: 10/10/23 This is a 73-year-old female with a past medical history significant for peripheral vascular disease, diabetes, hyperlipidemia, and anxiety. Patient follows in the office with Dr. Genao. We have been asked to see the patient in consultation for congestive heart failure. Patient examined at the bedside. P atient states she has been feeling short of breath for the past 4 to 5 days. She also reports having some lightheadedness. She reports increased lower extremity edema. She states that she has been compliant with her medications and also with a low-sodium diet. She denies any chest pain or pressure. Vital signs are stable. DIAGNOSTICS: - EKG reveals sinus mechanism with no signs of acute ischemia. - Chest xray cardiomegaly and prominent pulmonary vascular markings and diffuse increased lung markings may correlate with congestive heart failure.. - Laboratory data: WBC 5.4. Hemoglobin 11.5. Platelet count 193. Sodium 131. Potassium 4.1. BUN 12. Creatinine 0.85. Lactic acid 1.3. Troponin negative x 1. proBNP 1760. - Current home cardiac medications include Lasix 40 mg twice a day, Plavix 75 mg daily, Lipitor 80 mg at night, aspirin 81 mg daily. - Most recent echocardiogram obtained in July 2023 reveals ejection fraction 60 to 65%, mild mitral stenosis, trace to mild MR, mild AR, mild to moderate TR -Patient underwent Lexiscan stress test in April 2020 which was negative for ischemia 10/09/2023 Patient was seen and examined resting comfortably in bed. Patient did have a vape pen at her bedside. Overall she does not feel her breathing is any better. She denies any lower extremity edema. She was seen by Dr. See this morning who according to the patient told her that she has significant pulmonary fibrosis and there is little that can be done for her. She remains on 40 mg Lasix twice daily. 10/10/2023 Patient was seen and examined resting comfortably in bed. Overall she is relatively stable. She does not feel any improvement in her breathing. She continues to be followed by pulmonary. She remains on oral diuretic. She denies any complaints of chest discomfort, orthopnea, PND or edema. Objective - Vital Signs Vital signs: Vital Signs Temp 98.5 F 10/10/23 07:20 Pulse 69 10/10/23 08:00 Resp 17 10/10/23 08:00 BP 114/70 10/10/23 07:20 Pulse Ox 98 10/10/23 07:20 FiO2 Intake & Output 10/09/23 10/10/23 10/10/23 18:59 06:59 18:59 Intake Total 0 354 Balance 0 354 Weight 80.8 kg Intake: Oral 0 354 Other: Voiding Method Diaper Diaper Diaper Incontinent Incontinent Incontinent # Voids 3 3 1 - Exam GENERAL: Well-developed in no acute distress. HEENT: Head is normocephalic. Pupils are equal, round. Sclerae anicteric. Mucous membranes of the mouth are moist. Neck supple. No JVD or thyromegaly LUNGS: Respirations even and unlabored. Lungs with diminished air entry and coarse crackles bilaterally. HEART: Regular rate and rhythm. S1 and S2 heard. Systolic murmur noted. ABDOMEN: Soft. Nondistended. Nontender. EXTREMITIES: Normal range of motion. No clubbing or cyanosis. Peripheral pulses intact. no edema NEUROLOGIC: Awake and alert. Oriented x 3. - Labs CBC & Chem 7: 10/10/23 04:47 10/10/23 04:47 Labs: Abnormal Lab Results - Last 24 Hours (Table) 10/10/23 10/10/23 Range/Units 04:47 04:47 MCHC 31.0 L (32.0-37.0) g/dL RDW 17.9 H (11.5-14.5) % Potassium 3.4 L (3.5-5.5) mmol/L Anion Gap 12.70 H (4.00-12.00) mmol/L Est GFR (CKD-EPI) 43 L (>=60) Glucose 129 H (70-110) mg/dL Calcium 8.6 L (8.7-10.3) mg/dL Assessment and Plan Assessment: Acute on chronic heart failure with preserved EF, 60 to 65% Chronic hypoxic respiratory failure on home oxygen Interstitial lung disease, being followed by pulmonary Diarrhea Peripheral vascular disease, status post right femoral to anterior tibial artery bypass, 2022 Diabetes Hyperlipidemia Anxiety Obesity: BMI 32.4 History of obstructive sleep apnea on CPAP Plan: From cardiology's perspective medications were reviewed and we will continue the same at this time. Most of her breathing issues likely related to underlying interstitial fibrosis. Will continue to follow the patient provide further recommendations accordingly. Patient strongly encouraged nicotine cessation, vaping cessation PRESENTATION TEAM MEMBER note has been reviewed, I agree with a documented findings and plan of care. Patient was seen and examined.
--- NOTE | 2023-10-10 10:57 | P.PN ---
Subjective Progress Note Date: 10/10/23 This is a pleasant 73-year-old female patient with a known history of chronic obstructive pulmonary disease, CVA/TIA, diabetes mellitus, hypertension, hypothyroidism. She also has biopsy-proven smoking relatedinterstitial lung disease. A recent CT scan of the chest in July 2023 that revealed diffuse in terstitial densities with groundglass there is also a 3 cm masslike consolidative density in the right lower lobe medially. Suspicious for atelectasis versus neoplasm versus chronic infiltrate. A PET scan from August 19, 2023 revealed right lower lobe pulmonary nodule with increased metabolic activity compatible with malignancy. There is at least 1 right pulmonary hilum lymph node suspicious for metastatic disease. Extensive interstitial opacities along suspicious for ILD versus CHF. She has been followed in our office. She was given a trial of steroids for 4 weeks and was due for a follow-up CT scan of the chest on October 11, 2023. She presented here to the emergency room on 10/06/2023 with complaints of generalized weakness and fatigue. Having issues with diarrhea as well. She felt dizzy and without much energy. Chest x-ray again reveals cardiomegaly and prominent pulmonary vascular markings. White count 5.0. Hemoglobin 12.1. Platelets 212. Sodium 136. Potassium 3.5. Bicarb 22. BUN 16. Creatinine 1.1. Glucose 101. Urinalysis clean. Viral screen was negative. She is seen today in consultation. She is resting in bed. Awake and alert in no acute distress. Still having complaints of fatigue. Denies any worsening shortness of breath, cough or congestion. She is afebrile. Hemodynamically stable. Maintaining O2 saturations in the mid 90s on 2 L/min per nasal cannula. The patient is seen today October 09, 2023 in follow-up on the regular medical floor. She is currently laying flat in bed. Awake and alert in no acute distress. Maintaining O2 saturations in the 90s on 2 L/min per nasal cannula. White count 4.5. Hemoglobin 12.2. Platelets 210. Sodium 135. Potassium 3.1. Bicarb 29. BUN 15. Creatinine 0.99. Glucose 112. She remains on bronchodilat ors. Lovenox for DVT prophylaxis. Remains on oral diuretics. CT scan of the chest revealed pleural-based mass right lower lobe is essentially unchanged in size and appearance. Pulmonary fibrosis at least moderate in degree. The patient is seen today October 10, 2023 in follow-up on the regular medical floor. She is awake and alert in no acute distress. Maintaining O2 saturations in the 90s on 3 L/min per nasal cannula. She remains on bronchodilators. Remains on oral diuretics. Her breathing is at her baseline. White count 7.1. Hemoglobin 12.5. Platelets 257. Sodium 140. Potassium 3.4. Bicarb 29. BUN 17. Creatinine 1.3. Glucose 129. Remains on Lovenox for DVT prophylaxis.. Objective - Vital Signs Vital signs: Vital Signs Temp 98.5 F 10/10/23 07:20 Pulse 69 10/10/23 08:00 Resp 17 10/10/23 08:00 BP 114/70 10/10/23 07:20 Pulse Ox 98 10/10/23 07:20 FiO2 Intake & Output 10/09/23 10/10/23 10/10/23 18:59 06:59 18:59 Intake Total 0 354 Balance 0 354 Weight 80.8 kg Intake: Oral 0 354 Other: Voiding Method Diaper Diaper Diaper Incontinent Incontinent Incontinent # Voids 3 3 1 - Exam GENERAL EXAM: Alert, 73-year-old female, on 3 L nasal cannula, in no apparent distress. HEAD: Normocephalic. EYES: Normal reaction of pupils, equal size. NOSE: Clear with pink turbinates. THROAT: No erythema or exudates. NECK: No masses, no JVD. CHEST: No chest wall deformity. LUNGS: Equal air entry with coarse crackles bilaterally, diminished. CVS: S1 and S2 normal with no audible murmur, regular rhythm. ABDOMEN: No hepatosplenomegaly, normal bowel sounds, no guarding or rigidity. SPINE: No scoliosis or deformity SKIN: No rashes CENTRAL NERVOUS SYSTEM: No focal deficits, tone is normal in all 4 extremities. EXTREMITIES: There is no peripheral edema. No clubbing, no cyanosis. Peripheral pulses are intact. - Labs CBC & Chem 7: 10/10/23 04:47 10/10/23 04:47 Labs: Abnormal Lab Results - Last 24 Hours (Table) 10/10/23 10/10/23 Range/Units 04:47 04:47 MCHC 31.0 L (32.0-37.0) g/dL RDW 17.9 H (11.5-14.5) % Potassium 3.4 L (3.5-5.5) mmol/L Anion Gap 12.70 H (4.00-12.00) mmol/L Est GFR (CKD-EPI) 43 L (>=60) Glucose 129 H (70-110) mg/dL Calcium 8.6 L (8.7-10.3) mg/dL Assessment and Plan Assessment: Generalized weakness and fatigue suspect secondary to diarrhea, poor oral intake, improved 3 cm masslike consolidative density in the right lower lobe being followed in the outpatient setting. A PET scan from August 19, 2023 revealed right lower lobe pulmonary nodule with increased metabolic activity compatible with malignancy. There is at least 1 right pulmonary hilum lymph node suspicious for metastatic disease. Extensive interstitial opacities along suspicious for ILD versus CHF. She was given a trial of steroids for 4 weeks and was due for a follow-up CT scan of the chest on October 11, 2023. CT scan of the chest was done yesterday 10/08/2023 that revealed similar pleural-based mass of the right lower lobe which is essentially unchanged in overall size and appearance. Possible minimal early cavitation. Pulmonary fibrosis at least moderate in degree. History of of diastolic congestive heart failure and valvular heart disease, most recent echocardiogram estimated a preserved left ventricular ejection fraction of 60 to 65%, with mild to moderate tricuspid regurgitation, mild mitral stenosis, mild aortic regurgitation. Chronic hypoxemic respiratory failure, secondary to above History of smoking-related interstitial fibrosis, biopsy-proven History of rectal cancer, status post chemo and radiation. Patient's most rece nt PET scan was from November, which did not show any new areas of abnormal hypermetabolic uptake to suggest active neoplastic recurrence. History of peripheral vascular occlusive disease, status post right femoral tibial bypass. History of previous right toe amputations Chronic microcytic, hypochromic anemia History obstructive sleep apnea History of hyperlipidemia History of CVA/TIA History of hypothyroidism History of frequent urinary tract infections Former tobacco smoker Plan: The patient was seen and evaluated Labs and medications reviewed Patient aware that the right lower lobe mass is unchanged Also aware her shortness of breath will not improve due to her ILD Continue her home pulmonary medications, oxygen Follow-up in our office in 1 week I have personally seen and examined the patient, performed the documentation and the assessment and plan as written. Number of minutes spent on the visit: 10.
--- NOTE | 2023-10-11 12:05 | P.PN ---
Subjective Progress Note Date: 10/11/23 Alexia Rubin, is a 73-year-old female who presented to [facility] emergency room with a chief complaint of generalized weakness, worsening shortness of breath, and diarrhea. She was evaluated in the emergency room vital examination on presentation revealed a temperature of 99.1 pulse 70 respiration 16 blood pressure 111/47 pulse ox 92% on 4 L nasal cannula Laboratory data reveals a white blood count of 5.4 hemoglobin 11.5 platelet count 193 sodium 131 potassium 4.1 chloride 100 CO2 26 BUN 12 creatinine 0.85 Testing in the emergency room revealed chest x-ray done in the emergency room revealed cardiomegaly with prominent pulmonary vascular markings Patient was admitted to medical floor for further evaluation and treatment on 10/08/2023 patient is alert and oriented 3. CT of chest ordered per pulmonary.awaiting cardiology input. Current vital signs temp 98.2, heart rate 72, respiratory rate 16, blood pressure 120/65 and pulse ox is 97% on 2 L On 10/09/2023 patient is alert and oriented x 3. Patient still reporting some shortness of breath. Patient did receive an additional dose of IV Lasix per cardiology. Discussed case with patient and daughter on phone daughter requesting patient be DC'd to rehab. Consult for social work placed. PT OT services are following. Pulmonary and cardiology services following On 10/10/2023 patient was seen and examined on the medical floor she is alert and oriented x 3 in no apparent distress there is no fever or chills no headache or dizziness no chest pain no shortness of breath at rest no cough no nausea or vomiting no abdominal pain no diarrhea no urinary symptoms. Recommendation from cardiology and pulmonary were reviewed and discussed with the patient in details, she was counseled in length in regard to quitting all kinds of tobacco use including vaping, patient will be discharged to home today, she will be followed in our office in 2 to 3 days. On 10/11/2023 patient was seen and examined on the medical floor, she is alert and oriented x 3 in no apparent distress, she is complaining of generalized weakness, and complaining of diarrhea, otherwise she denies any complaints, she is stating that she is not strong enough to go home and requesting transfer to a rehab unit, otherwise there is no fever or chills no headache or dizziness no chest pain no shortness of breath at rest, patient requires oxygen treatment which she has at home, she has occasional cough no nausea or vomiting no abdominal pain, and no urinary symptoms Objective - Vital Signs Vital signs: Vital Signs Temp 97.6 F 10/11/23 08:00 Pulse 68 10/11/23 08:32 Resp 16 10/11/23 08:28 BP 132/60 10/11/23 08:00 Pulse Ox 100 10/11/23 08:00 FiO2 Intake & Output 10/10/23 10/11/23 10/11/23 18:59 06:59 18:59 Intake Total 354 118 Output Total 200 Balance 154 118 Weight 80.1 kg Intake: Oral 354 118 Output: Urine 200 Other: Voiding Method Diaper Diaper Diaper Incontinent Incontinent Incontinent # Voids 1 2 1 # Bowel Movements 1 - Exam In general patient is alert and oriented x 3 in no distress HEENT head normocephalic and atraumatic Neck is supple no JVD no goiter no lymphadenopathy no carotid bruit Chest examination is clear to auscultation no crackles no wheezing Cardiac exam reveals regular heart sounds S1 and S2 no gallops no murmurs Abdomen is soft nontender no organomegaly with normal bowel sounds Extremity exam reveals right foot with complete toes amputation Neurological examination reveals no gross focal deficits - Labs CBC & Chem 7: 10/10/23 04:47 10/10/23 04:47 Labs: Microbiology - Last 24 Hours (Table) 10/10/23 08:25 Gram Stain - Preliminary Sputum Assessment and Plan Plan: Worsening shortness of breath Episodes of severe diarrhea Acute diastolic congestive heart failure exacerbation Underlying history of COPD Underlying history of hypertension Underlying history of peripheral vascular disease Underlying history of obstructive sleep apnea maintained on CPAP Underlying history of diabetes mellitus Previous history of anal cancer with radiation therapy in 2016 Previous history of kidney stones At this time patient was seen and examined Home medications reviewed and reordered She was given IV Lasix Pulmonary consultation and cardiology consultation requested regarding worsening shortness of breath Will check stools for C. difficile CT of chest ordered per pulmonary Social work services consulted for ECF placement For DVT prophylaxis subcu Lovenox Will continue to follow closely
--- NOTE | 2023-10-11 14:10 | P.PN ---
Subjective Progress Note Date: 10/11/23 This is a 73-year-old female with a past medical history significant for peripheral vascular disease, diabetes, hyperlipidemia, and anxiety. Patient follows in the office with Dr. Genao. We have been asked to see the patient in consultation for congestive heart failure. Patient examined at the bedside. Patient states she has been feeling short of breath for the past 4 to 5 days. She also reports having some lightheadedness. She reports increased lower extremity edema. She states that she has been compliant with her medications and also with a low-sodium diet. She denies any chest pain or pressure. Vital signs are stable. DIAGNOSTICS: - EKG reveals sinus mechanism with no signs of acute ischemia. - Chest xray cardiomegaly and prominent pulmonary vascular markings and diffuse increased lung markings may correlate with congestive heart failure.. - Laboratory data: WBC 5.4. Hemoglobin 11.5. Platelet count 193. Sodium 131. Potassium 4.1. BUN 12. Creatinine 0.85. Lactic acid 1.3. Troponin negative x 1. proBNP 1760. - Current home cardiac medications include Lasix 40 mg twice a day, Plavix 75 mg daily, Lipitor 80 mg at night, aspirin 81 mg daily. - Most recent echocardiogram obtained in July 2023 reveals ejection fraction 60 to 65%, mild mitral stenosis, trace to mild MR, mild AR, mild to moderate TR -Patient underwent Lexiscan stress test in April 2020 which was negative for ischemia 10/09/2023 Patient was seen and examined resting comfortably in bed. Patient did have a vape pen at her bedside. Overall she does not feel her breathing is any better. She denies any lower extremity edema. She was seen by Dr. See this morning who according to the patient told her that she has significant pulmonary fibrosis and there is little that can be done for her. She remains on 40 mg Lasix twice daily. 10/10/2023 Patient was seen and examined resting comfortably in bed. Overall she is relatively stable. She does not feel any improvement in her breathing. She continues to be followed by pulmonary. She remains on oral diuretic. She denies any complaints of chest discomfort, orthopnea, PND or edema. 10/10 Patient is seen today in follow-up. She states she is feeling much better. She states she is getting around better and is able to ambulate better. She still has shortness of breath. She does have home oxygen at 2 L nasal cannula. Blood pressure 132/60, heart rate 68, pulse ox 100% on 2 L nasal cannula. No repeat blood work today. GENERAL: Well-developed in no acute distress. HEENT: Head is normocephalic. Pupils are equal, round. Sclerae anicteric. Mucous membranes of the mouth are moist. Neck supple. No JVD or thyromegaly LUNGS: Respirations even and unlabored. Lungs with diminished air entry and coarse crackles bilaterally. HEART: Regular rate and rhythm. S1 and S2 heard. Systolic murmur noted. ABDOMEN: Soft. Nondistended. Nontender. EXTREMITIES: Normal range of motion. No clubbing or cyanosis. Peripheral pulses intact. no edema NEUROLOGIC: Awake and alert. Oriented x 3. Assessment: Acute on chronic heart failure with preserved EF, 60 to 65% Chronic hypoxic respiratory failure on home oxygen Interstitial lung disease, being followed by pulmonary Diarrhea Peripheral vascular disease, status post right femoral to anterior tibial artery bypass, 2022 Diabetes Hyperlipidemia Anxiety Obesity: BMI 32.4 History of obstructive sleep apnea on CPAP Plan: From cardiology's perspective medications were reviewed and we will continue the same at this time. Most of her breathing issues likely related to underlying interstitial fibrosis. Patient is cleared from cardiology for discharge and may follow-up with Dr. Genao in 1 to 2 weeks. Smoking cessation. Patient will be provided the [place] quit line information at discharge. Nurse practitioner note has been reviewed, I agree with documented findings and plan of care. Patient was seen and examined. Nurse practitioner note has been reviewed, I agree with documented findings and plan of care. Patient was seen and examined. Objective - Vital Signs Vital signs: Vital Signs Temp 97.6 F 10/11/23 08:00 Pulse 68 10/11/23 08:32 Resp 16 10/11/23 08:28 BP 132/60 10/11/23 08:00 Pulse Ox 100 10/11/23 08:00 FiO2 Intake & Output 10/10/23 10/11/23 10/11/23 18:59 06:59 18:59 Intake Total 354 118 Output Total 200 Balance 154 118 Weight 80.1 kg Intake: Oral 354 118 Output: Urine 200 Other: Voiding Method Diaper Diaper Diaper Incontinent Incontinent Incontinent # Voids 1 2 1 # Bowel Movements 1 - Labs CBC & Chem 7: 10/10/23 04:47 10/10/23 04:47 Labs: Microbiology - Last 24 Hours (Table) 10/10/23 08:25 Gram Stain - Preliminary Sputum Sputum Culture - Preliminary
--- NOTE | 2023-10-11 14:20 | P.PN ---
Subjective Progress Note Date: 10/11/23 This is a pleasant 73-year-old female patient with a known history of chronic obstructive pulmonary disease, CVA/TIA, diabetes mellitus, hypertension, hypothyroidism. She also has biopsy-proven smoking relatedinterstitial lung disease. A recent CT scan of the chest in July 2023 that revealed diffuse in terstitial densities with groundglass there is also a 3 cm masslike consolidative density in the right lower lobe medially. Suspicious for atelectasis versus neoplasm versus chronic infiltrate. A PET scan from August 19, 2023 revealed right lower lobe pulmonary nodule with increased metabolic activity compatible with malignancy. There is at least 1 right pulmonary hilum lymph node suspicious for metastatic disease. Extensive interstitial opacities along suspicious for ILD versus CHF. She has been followed in our office. She was given a trial of steroids for 4 weeks and was due for a follow-up CT scan of the chest on October 11, 2023. She presented here to the emergency room on 10/06/2023 with complaints of generalized weakness and fatigue. Having issues with diarrhea as well. She felt dizzy and without much energy. Chest x-ray again reveals cardiomegaly and prominent pulmonary vascular markings. White count 5.0. Hemoglobin 12.1. Platelets 212. Sodium 136. Potassium 3.5. Bicarb 22. BUN 16. Creatinine 1.1. Glucose 101. Urinalysis clean. Viral screen was negative. She is seen today in consultation. She is resting in bed. Awake and alert in no acute distress. Still having complaints of fatigue. Denies any worsening shortness of breath, cough or congestion. She is afebrile. Hemodynamically stable. Maintaining O2 saturations in the mid 90s on 2 L/min per nasal cannula. The patient is seen today October 09, 2023 in follow-up on the regular medical floor. She is currently laying flat in bed. Awake and alert in no acute distress. Maintaining O2 saturations in the 90s on 2 L/min per nasal cannula. White count 4.5. Hemoglobin 12.2. Platelets 210. Sodium 135. Potassium 3.1. Bicarb 29. BUN 15. Creatinine 0.99. Glucose 112. She remains on bronchodilat ors. Lovenox for DVT prophylaxis. Remains on oral diuretics. CT scan of the chest revealed pleural-based mass right lower lobe is essentially unchanged in size and appearance. Pulmonary fibrosis at least moderate in degree. The patient is seen today October 10, 2023 in follow-up on the regular medical floor. She is awake and alert in no acute distress. Maintaining O2 saturations in the 90s on 3 L/min per nasal cannula. She remains on bronchodilators. Remains on oral diuretics. Her breathing is at her baseline. White count 7.1. Hemoglobin 12.5. Platelets 257. Sodium 140. Potassium 3.4. Bicarb 29. BUN 17. Creatinine 1.3. Glucose 129. Remains on Lovenox for DVT prophylaxis. The patient is seen today October 11, 2023 in follow-up on the regular medical floor. She continues to rest flat in bed. No shortness of breath, cough or congestion. Maintaining O2 saturations in the 90s on 2 L/min per nasal cannula. Remains on bronchodilators. Remains on oral diuretics. Lovenox for DVT prophylaxis. No new labs today. She has had progressive weakness during this hospitalization. She is hoping to go to subacute rehabilitation instead of home now. Objective - Vital Signs Vital signs: Vital Signs Temp 97.6 F 10/11/23 08:00 Pulse 68 10/11/23 08:32 Resp 16 10/11/23 08:28 BP 132/60 10/11/23 08:00 Pulse Ox 100 10/11/23 08:00 FiO2 Intake & Output 10/10/23 10/11/23 10/11/23 18:59 06:59 18:59 Intake Total 354 118 Output Total 200 Balance 154 118 Weight 80.1 kg Intake: Oral 354 118 Output: Urine 200 Other: Voiding Method Diaper Diaper Diaper Incontinent Incontinent Incontinent # Voids 1 2 1 # Bowel Movements 1 - Exam GENERAL EXAM: Alert, weak 73-year-old female, laying flat in bed, on 3 L nasal cannula, in no apparent distress. HEAD: Normocephalic. EYES: Normal reaction of pupils, equal size. NOSE: Clear with pink turbinates. THROAT: No erythema or exudates. NECK: No masses, no JVD. CHEST: No chest wall deformity. LUNGS: Equal air entry with coarse crackles bilaterally, diminished. CVS: S1 and S2 normal with no audible murmur, regular rhythm. ABDOMEN: No hepatosplenomegaly, normal bowel sounds, no guarding or rigidity. SPINE: No scoliosis or deformity SKIN: No rashes CENTRAL NERVOUS SYSTEM: No focal deficits, tone is normal in all 4 extremities. EXTREMITIES: There is no peripheral edema. No clubbing, no cyanosis. Peripheral pulses are intact. - Labs CBC & Chem 7: 10/10/23 04:47 10/10/23 04:47 Labs: Microbiology - Last 24 Hours (Table) 10/10/23 08:25 Gram Stain - Preliminary Sputum Sputum Culture - Preliminary Assessment and Plan Assessment: Generalized weakness and fatigue suspect secondary to diarrhea, poor oral intake, improved but patient is hoping for subacute rehab versus home 3 cm masslike consolidative density in the right lower lobe being followed in the outpatient setting. A PET scan from August 19, 2023 revealed right lower lobe pulmonary nodule with increased metabolic activity compatible with malignancy. There is at least 1 right pulmonary hilum lymph node suspicious for metastatic disease. Extensive interstitial opacities along suspicious for ILD versus CHF. She was given a trial of steroids for 4 weeks and was due for a follow-up CT scan of the chest on October 11, 2023. CT scan of the chest was done yesterday that revealed similar pleural-based mass of the right lower lobe which is essentially unchanged in overall size and appearance. Possible minimal early cavitation. Pulmonary fibrosis at least moderate in degree. History of of diastolic congestive heart failure and valvular heart disease, mo st recent echocardiogram estimated a preserved left ventricular ejection fraction of 60 to 65%, with mild to moderate tricuspid regurgitation, mild mitral stenosis, mild aortic regurgitation. Chronic hypoxemic respiratory failure, secondary to above History of smoking-related interstitial fibrosis, biopsy-proven History of rectal cancer, status post chemo and radiation. Patient's most recent PET scan was from November, which did not show any new areas of abnormal hypermetabolic uptake to suggest active neoplastic recurrence. History of peripheral vascular occlusive disease, status post right femoral tibial bypass. History of previous right toe amputations Chronic microcytic, hypochromic anemia History obstructive sleep apnea History of hyperlipidemia History of CVA/TIA History of hypothyroidism History of frequent urinary tract infections Former tobacco smoker Plan: The patient was seen and evaluated Medications reviewed Patient aware that her right lower lobe mass is unchanged Also aware her shortness of breath will not improve due to her ILD Continue bronchodilators, oxygen Now requesting subacute rehabilitation versus home This patient was seen independently by the pulmonary nurse practitioner addressing pulmonary issues I have personally seen and examined the patient, performed the documentation and the assessment and plan as written. Number of minutes spent on the visit: 24.
--- NOTE | 2023-10-12 10:25 | P.PN ---
Subjective Progress Note Date: 10/12/23 Alexia Rubin, is a 73-year-old female who presented to [facility] emergency room with a chief complaint of generalized weakness, worsening shortness of breath, and diarrhea. She was evaluated in the emergency room vital examination on presentation revealed a temperature of 99.1 pulse 70 respiration 16 blood pressure 111/47 pulse ox 92% on 4 L nasal cannula Laboratory data reveals a white blood count of 5.4 hemoglobin 11.5 platelet count 193 sodium 131 potassium 4.1 chloride 100 CO2 26 BUN 12 creatinine 0.85 Testing in the emergency room revealed chest x-ray done in the emergency room revealed cardiomegaly with prominent pulmonary vascular markings Patient was admitted to medical floor for further evaluation and treatment on 10/08/2023 patient is alert and oriented 3. CT of chest ordered per pulmonary.awaiting cardiology input. Current vital signs temp 98.2, heart rate 72, respiratory rate 16, blood pressure 120/65 and pulse ox is 97% on 2 L On 10/09/2023 patient is alert and oriented x 3. Patient still reporting some shortness of breath. Patient did receive an additional dose of IV Lasix per cardiology. Discussed case with patient and daughter on phone daughter requesting patient be DC'd to rehab. Consult for social work placed. PT OT services are following. Pulmonary and cardiology services following On 10/10/2023 patient was seen and examined on the medical floor she is alert and oriented x 3 in no apparent distress there is no fever or chills no headache or dizziness no chest pain no shortness of breath at rest no cough no nausea or vomiting no abdominal pain no diarrhea no urinary symptoms. Recommendation from cardiology and pulmonary were reviewed and discussed with the patient in details, she was counseled in length in regard to quitting all kinds of tobacco use including vaping, patient will be discharged to home today, she will be followed in our office in 2 to 3 days. On 10/11/2023 patient was seen and examined on the medical floor, she is alert and oriented x 3 in no apparent distress, she is complaining of generalized weakness, and complaining of diarrhea, otherwise she denies any complaints, she is stating that she is not strong enough to go home and requesting transfer to a rehab unit, otherwise there is no fever or chills no headache or dizziness no chest pain no shortness of breath at rest, patient requires oxygen treatment which she has at home, she has occasional cough no nausea or vomiting no abdominal pain, and no urinary symptoms On 10/12/2023 patient's alert and oriented 3.Patient denies any chest pain or shortness of breath. Patient denies nausea vomiting or diarrhea. Patient denies any urinary burning. Awaiting discharge planning.Current vital signs temp 98.2, heart rate 62, respiratory rate 15, blood pressure 114/65 with a pulse ox of 97% on 2 L Objective - Vital Signs Vital signs: Vital Signs Temp 98 F 10/12/23 07:38 Pulse 65 10/12/23 07:38 Resp 16 10/12/23 07:38 BP 121/71 10/12/23 07:38 Pulse Ox 91 L 10/12/23 08:37 FiO2 Intake & Output 10/11/23 10/12/23 10/12/23 18:59 06:59 18:59 Intake Total 236 118 Balance 236 118 Weight 80 kg Intake: Oral 236 118 Other: Voiding Method Diaper Diaper Toilet Incontinent Incontinent Diaper Incontinent # Voids 2 2 # Bowel Movements 1 - Exam In general patient is alert and oriented x 3 in no distress HEENT head normocephalic and atraumatic Neck is supple no JVD no goiter no lymphadenopathy no carotid bruit Chest examination is clear to auscultation no crackles no wheezing Cardiac exam reveals regular heart sounds S1 and S2 no gallops no murmurs Abdomen is soft nontender no organomegaly with normal bowel sounds Extremity exam reveals right foot with complete toes amputation Neurological examination reveals no gross focal deficits - Labs CBC & Chem 7: 10/10/23 04:47 10/10/23 04:47 Labs: Microbiology - Last 24 Hours (Table) 10/10/23 08:25 Gram Stain - Final Sputum Sputum Culture - Final Assessment and Plan Plan: Worsening shortness of breath Episodes of severe diarrhea Acute diastolic congestive heart failure exacerbation Underlying history of COPD Underlying history of hypertension Underlying history of peripheral vascular disease Underlying history of obstructive sleep apnea maintained on CPAP Underlying history of diabetes mellitus Previous history of anal cancer with radiation therapy in 2016 Previous history of kidney stones At this time patient was seen and examined Home medications reviewed and reordered She was given IV Lasix Pulmonary consultation and cardiology consultation requested regarding worsening shortness of breath Will check stools for C. difficile CT of chest ordered per pulmonary Social work services consulted for ECF placement For DVT prophylaxis subcu Lovenox Will continue to follow closely
[2023-10-12 10:29] LABS: Basophils # (A) 0.03 X 10*3/uL (0.00-0.10); Basophils % (A) 0.6 %; Eosinophils # (A) 0.12 X 10*3/uL (0.04-0.35); Eosinophils % (A) 2.4 %; HCT 38.3 % (37.2-46.3); HGB 11.7 g/dL (12.0-15.0); Lymphocytes # (A) 1.73 X 10*3/uL (0.90-5.00); Lymphocytes % (A) 34.2 %; MCH 28.7 pg (27.0-32.0); MCHC 30.5 g/dL (32.0-37.0); MCV 93.9 FL (80.0-97.0); Mean Platelet Volume 10.4 FL (9.5-12.2); Monocytes # (A) 0.42 X 10*3/uL (0.20-1.00); Monocytes % (A) 8.3 %; NRBC Per 100 WBC 0 X 10*3/uL (0.00-0.01); Neutrophils # (A) 2.73 X 10*3/uL (1.80-7.70); Neutrophils % (A) 53.9 %; Platelet Count 268 X 10*3/uL (140-440); RBC 4.08 X 10*6/uL (4.10-5.20); RDW 17.5 % (11.5-14.5); WBC 5.06 X 10*3/uL (4.50-10.00)
[2023-10-12 10:46] LABS: ALT 16 U/L (8-44); AST 27 U/L (13-35); Albumin 3.9 g/dL (3.8-4.9); Albumin/Globulin Ratio 1.86 Ratio (1.60-3.17); Alkaline Phosphatase 64 U/L (41-126); Blood Urea Nitrogen 16.8 mg/dL (9.0-27.0); Calcium 8.6 mg/dL (8.7-10.3); Carbon Dioxide 27.3 mmol/L (21.6-31.8); Chloride 97 mmol/L (96-109); Globulin 2.1 g/dL (1.6-3.3); Glucose 148 mg/dL (70-110); Potassium 3.3 mmol/L (3.5-5.5); Sodium 139 mmol/L (135-145); Total Bilirubin 0.2 mg/dL (0.3-1.2)
--- NOTE | 2023-10-12 11:29 | P.PN ---
Subjective Progress Note Date: 10/12/23 This is a pleasant 73-year-old female patient with a known history of chronic obstructive pulmonary disease, CVA/TIA, diabetes mellitus, hypertension, hypothyroidism. She also has biopsy-proven smoking relatedinterstitial lung disease. A recent CT scan of the chest in July 2023 that revealed diffuse in terstitial densities with groundglass there is also a 3 cm masslike consolidative density in the right lower lobe medially. Suspicious for atelectasis versus neoplasm versus chronic infiltrate. A PET scan from August 19, 2023 revealed right lower lobe pulmonary nodule with increased metabolic activity compatible with malignancy. There is at least 1 right pulmonary hilum lymph node suspicious for metastatic disease. Extensive interstitial opacities along suspicious for ILD versus CHF. She has been followed in our office. She was given a trial of steroids for 4 weeks and was due for a follow-up CT scan of the chest on October 11, 2023. She presented here to the emergency room on 10/06/2023 with complaints of generalized weakness and fatigue. Having issues with diarrhea as well. She felt dizzy and without much energy. Chest x-ray again reveals cardiomegaly and prominent pulmonary vascular markings. White count 5.0. Hemoglobin 12.1. Platelets 212. Sodium 136. Potassium 3.5. Bicarb 22. BUN 16. Creatinine 1.1. Glucose 101. Urinalysis clean. Viral screen was negative. She is seen today in consultation. She is resting in bed. Awake and alert in no acute distress. Still having complaints of fatigue. Denies any worsening shortness of breath, cough or congestion. She is afebrile. Hemodynamically stable. Maintaining O2 saturations in the mid 90s on 2 L/min per nasal cannula. The patient is seen today October 09, 2023 in follow-up on the regular medical floor. She is currently laying flat in bed. Awake and alert in no acute distress. Maintaining O2 saturations in the 90s on 2 L/min per nasal cannula. White count 4.5. Hemoglobin 12.2. Platelets 210. Sodium 135. Potassium 3.1. Bicarb 29. BUN 15. Creatinine 0.99. Glucose 112. She remains on bronchodilat ors. Lovenox for DVT prophylaxis. Remains on oral diuretics. CT scan of the chest revealed pleural-based mass right lower lobe is essentially unchanged in size and appearance. Pulmonary fibrosis at least moderate in degree. The patient is seen today October 10, 2023 in follow-up on the regular medical floor. She is awake and alert in no acute distress. Maintaining O2 saturations in the 90s on 3 L/min per nasal cannula. She remains on bronchodilators. Remains on oral diuretics. Her breathing is at her baseline. White count 7.1. Hemoglobin 12.5. Platelets 257. Sodium 140. Potassium 3.4. Bicarb 29. BUN 17. Creatinine 1.3. Glucose 129. Remains on Lovenox for DVT prophylaxis. The patient is seen today October 11, 2023 in follow-up on the regular medical floor. She continues to rest flat in bed. No shortness of breath, cough or congestion. Maintaining O2 saturations in the 90s on 2 L/min per nasal cannula. Remains on bronchodilators. Remains on oral diuretics. Lovenox for DVT prophylaxis. No new labs today. She has had progressive weakness during this hospitalization. She is hoping to go to subacute rehabilitation instead of home now. The patient is seen today October 12, 2023 in follow-up on the regular medical floor. She is awake and alert in no acute distress. Maintaining O2 saturations in the 90s on 2 L/min per nasal cannula. No IV fluids. She is continued on bronchodilators. Lovenox for DVT prophylaxis. Oral diuretics. Sputum culture revealed no growth. White count 5.0. Hemoglobin 11.7. Platelets 268. Sodium 139. Potassium 3.3. Bicarb 27. BUN 17. Creatinine 1.0. Glucose 148. Objective - Vital Signs Vital signs: Vital Signs Temp 98 F 10/12/23 07:38 Pulse 62 10/12/23 11:23 Resp 16 10/12/23 07:38 BP 121/71 10/12/23 07:38 Pulse Ox 91 L 10/12/23 08:37 FiO2 Intake & Output 10/11/23 10/12/23 10/12/23 18:59 06:59 18:59 Intake Total 236 118 Balance 236 118 Weight 80 kg Intake: Oral 236 118 Other: Voiding Method Diaper Diaper Toilet Incontinent Incontinent Diaper Incontinent # Voids 2 2 # Bowel Movements 1 - Exam GENERAL EXAM: Alert, weak 73-year-old female, on 2 L nasal cannula, in no apparent distress. HEAD: Normocephalic. EYES: Normal reaction of pupils, equal size. NOSE: Clear with pink turbinates. THROAT: No erythema or exudates. NECK: No masses, no JVD. CHEST: No chest wall deformity. LUNGS: Equal air entry with coarse crackles bilaterally, diminished. CVS: S1 and S2 normal with no audible murmur, regular rhythm. ABDOMEN: No hepatosplenomegaly, normal bowel sounds, no guarding or rigidity. SPINE: No scoliosis or deformity SKIN: No rashes CENTRAL NERVOUS SYSTEM: No focal deficits, tone is normal in all 4 extremities. EXTREMITIES: There is no peripheral edema. No clubbing, no cyanosis. Peripheral pulses are intact. - Labs CBC & Chem 7: 10/12/23 06:19 10/12/23 06:19 Labs: Abnormal Lab Results - Last 24 Hours (Table) 10/12/23 10/12/23 Range/Units 06:19 06:19 RBC 4.08 L (4.10-5.20) X 10*6/uL Hgb 11.7 L (12.0-15.0) g/dL MCHC 30.5 L (32.0-37.0) g/dL RDW 17.5 H (11.5-14.5) % Potassium 3.3 L (3.5-5.5) mmol/L Anion Gap 14.70 H (4.00-12.00) mmol/L Est GFR (CKD-EPI) 59 L (>=60) Glucose 148 H (70-110) mg/dL Calcium 8.6 L (8.7-10.3) mg/dL Total Bilirubin 0.2 L (0.3-1.2) mg/dL Total Protein 6.0 L (6.2-8.2) g/dL Microbiology - Last 24 Hours (Table) 10/10/23 08:25 Gram Stain - Final Sputum Sputum Culture - Final Assessment and Plan Assessment: Generalized weakness and fatigue suspect secondary to diarrhea, poor oral intake, improved 3 cm masslike consolidative density in the right lower lobe being followed in the outpatient setting. A PET scan from August 19, 2023 revealed right lower lobe pulmonary nodule with increased metabolic activity compatible with malignancy. There is at least 1 right pulmonary hilum lymph node suspicious for metastatic disease. Extensive interstitial opacities along suspicious for ILD versus CHF. She was given a trial of steroids for 4 weeks and was due for a follow-up CT scan of the chest on October 11, 2023. CT scan of the chest was done yesterday 10/08/2023 that revealed similar pleural-based mass of the right lower lobe which is essentially unchanged in overall size and appearance. Possible minimal early cavitation. Pulmonary fibrosis at least moderate in degree. History of of diastolic congestive heart failure and valvular heart disease, most recent echocardiogram estimated a preserved left ventricular ejection fraction of 60 to 65%, with mild to moderate tricuspid regurgitation, mild mitral stenosis, mild aortic regurgitation. Chronic hypoxemic respiratory failure, secondary to above History of smoking-related interstitial fibrosis, biopsy-proven History of rectal cancer, status post chemo and radiation. Patient's most recent PET scan was from November, which did not show any new areas of abnormal hypermetabolic uptake to suggest active neoplastic recurrence. History of peripheral vascular occlusive disease, status post right femoral ti bial bypass. History of previous right toe amputations Chronic microcytic, hypochromic anemia History obstructive sleep apnea History of hyperlipidemia History of CVA/TIA History of hypothyroidism History of frequent urinary tract infections Former tobacco smoker Plan: The patient was seen and evaluated Medications and labs reviewed Continue the current treatment plan Plan is for subacute rehab at [facility] at discharge This patient was seen independently by the pulmonary nurse practitioner addressing pulmonary issues I have personally seen and examined the patient, performed the documentation and the assessment and plan as written. Number of minutes spent on the visit: 25.
[2023-10-12] MEDS: POTASSIUM CHLORIDE ER 20 MEQ TAB.ER PO SCH (14:56)
[2023-10-13 08:39] LABS: Basophils # (A) 0.04 X 10*3/uL (0.00-0.10); Basophils % (A) 0.6 %; Eosinophils # (A) 0.11 X 10*3/uL (0.04-0.35); Eosinophils % (A) 1.7 %; HCT 37.7 % (37.2-46.3); HGB 11.5 g/dL (12.0-15.0); Lymphocytes % (A) 31.8 %; MCH 28.8 pg (27.0-32.0); MCHC 30.5 g/dL (32.0-37.0); MCV 94.3 FL (80.0-97.0); Mean Platelet Volume 10.8 FL (9.5-12.2); Monocytes % (A) 7.9 %; NRBC Per 100 WBC 0 X 10*3/uL (0.00-0.01); Neutrophils % (A) 57.4 %; Platelet Count 291 X 10*3/uL (140-440); RDW 17.4 % (11.5-14.5); WBC 6.29 X 10*3/uL (4.50-10.00)
[2023-10-13 08:54] LABS: ALT 17 U/L (8-44); AST 25 U/L (13-35); Albumin 3.9 g/dL (3.8-4.9); Albumin/Globulin Ratio 1.86 Ratio (1.60-3.17); Alkaline Phosphatase 67 U/L (41-126); Blood Urea Nitrogen 19.5 mg/dL (9.0-27.0); Calcium 8.7 mg/dL (8.7-10.3); Carbon Dioxide 28.4 mmol/L (21.6-31.8); Chloride 100 mmol/L (96-109); Globulin 2.1 g/dL (1.6-3.3); Glucose 132 mg/dL (70-110); Potassium 3.6 mmol/L (3.5-5.5); Sodium 141 mmol/L (135-145); Total Bilirubin 0.2 mg/dL (0.3-1.2)
--- NOTE | 2023-10-13 11:28 | P.PN ---
Subjective Progress Note Date: 10/13/23 Alexia Rubin, is a 73-year-old female who presented to [facility] emergency room with a chief complaint of generalized weakness, worsening shortness of breath, and diarrhea. She was evaluated in the emergency room vital examination on presentation revealed a temperature of 99.1 pulse 70 respiration 16 blood pressure 111/47 pulse ox 92% on 4 L nasal cannula Laboratory data reveals a white blood count of 5.4 hemoglobin 11.5 platelet count 193 sodium 131 potassium 4.1 chloride 100 CO2 26 BUN 12 creatinine 0.85 Testing in the emergency room revealed chest x-ray done in the emergency room revealed cardiomegaly with prominent pulmonary vascular markings Patient was admitted to medical floor for further evaluation and treatment on 10/08/2023 patient is alert and oriented 3. CT of chest ordered per pulmonary.awaiting cardiology input. Current vital signs temp 98.2, heart rate 72, respiratory rate 16, blood pressure 120/65 and pulse ox is 97% on 2 L On 10/09/2023 patient is alert and oriented x 3. Patient still reporting some shortness of breath. Patient did receive an additional dose of IV Lasix per cardiology. Discussed case with patient and daughter on phone daughter requesting patient be DC'd to rehab. Consult for social work placed. PT OT services are following. Pulmonary and cardiology services following On 10/10/2023 patient was seen and examined on the medical floor she is alert and oriented x 3 in no apparent distress there is no fever or chills no headache or dizziness no chest pain no shortness of breath at rest no cough no nausea or vomiting no abdominal pain no diarrhea no urinary symptoms. Recommendation from cardiology and pulmonary were reviewed and discussed with the patient in details, she was counseled in length in regard to quitting all kinds of tobacco use including vaping, patient will be discharged to home today, she will be followed in our office in 2 to 3 days. On 10/11/2023 patient was seen and examined on the medical floor, she is alert and oriented x 3 in no apparent distress, she is complaining of generalized weakness, and complaining of diarrhea, otherwise she denies any complaints, she is stating that she is not strong enough to go home and requesting transfer to a rehab unit, otherwise there is no fever or chills no headache or dizziness no chest pain no shortness of breath at rest, patient requires oxygen treatment which she has at home, she has occasional cough no nausea or vomiting no abdominal pain, and no urinary symptoms On 10/12/2023 patient's alert and oriented 3.Patient denies any chest pain or shortness of breath. Patient denies nausea vomiting or diarrhea. Patient denies any urinary burning. Awaiting discharge planning.Current vital signs temp 98.2, heart rate 62, respiratory rate 15, blood pressure 114/65 with a pulse ox of 97% on 2 L On 10/13/2023 patient is alert and oriented 3. Discharge planning in progress [facility] patient will likely be possible tomorrow 10/14/2023 awaiting final insurance clearance patient denies chest pain or shortness of breath. Patient denies nausea vomiting or diarrhea. Patient denies any urinary burning or frequency Objective - Vital Signs Vital signs: Vital Signs Temp 98.1 F 10/13/23 08:00 Pulse 67 10/13/23 08:00 Resp 16 10/13/23 08:00 BP 114/63 10/13/23 08:00 Pulse Ox 98 10/13/23 08:00 FiO2 Intake & Output 10/12/23 10/13/23 10/13/23 18:59 06:59 18:59 Intake Total 354 118 Balance 354 118 Weight 80.5 kg Intake: Oral 354 118 Other: Voiding Method Toilet Toilet Diaper Diaper Incontinent Incontinent # Voids 3 2 # Bowel Movements 1 - Exam In general patient is alert and oriented x 3 in no distress HEENT head normocephalic and atraumatic Neck is supple no JVD no goiter no lymphadenopathy no carotid bruit Chest examination is clear to auscultation no crackles no wheezing Cardiac exam reveals regular heart sounds S1 and S2 no gallops no murmurs Abdomen is soft nontender no organomegaly with normal bowel sounds Extremity exam reveals right foot with complete toes amputation Neurological examination reveals no gross focal deficits - Labs CBC & Chem 7: 10/13/23 05:59 10/13/23 05:59 Labs: Abnormal Lab Results - Last 24 Hours (Table) 10/13/23 10/13/23 Range/Units 05:59 05:59 RBC 4.00 L (4.10-5.20) X 10*6/uL Hgb 11.5 L (12.0-15.0) g/dL MCHC 30.5 L (32.0-37.0) g/dL RDW 17.4 H (11.5-14.5) % Anion Gap 12.60 H (4.00-12.00) mmol/L Est GFR (CKD-EPI) 59 L (>=60) Glucose 132 H (70-110) mg/dL Total Bilirubin 0.2 L (0.3-1.2) mg/dL Total Protein 6.0 L (6.2-8.2) g/dL Microbiology - Last 24 Hours (Table) 10/10/23 08:25 Gram Stain - Final Sputum Sputum Culture - Final Assessment and Plan Plan: Worsening shortness of breath Episodes of severe diarrhea Acute diastolic congestive heart failure exacerbation Underlying history of COPD Underlying history of hypertension Underlying history of peripheral vascular disease Underlying history of obstructive sleep apnea maintained on CPAP Underlying history of diabetes mellitus Previous history of anal cancer with radiation therapy in 2016 Previous history of kidney stones At this time patient was seen and examined Home medications reviewed and reordered She was given IV Lasix Pulmonary consultation and cardiology consultation requested regarding worsening shortness of breath Will check stools for C. difficile CT of chest ordered per pulmonary Social work services consulted for ECF placement For DVT prophylaxis subcu Lovenox Will continue to follow closely
--- NOTE | 2023-10-13 12:10 | P.PN ---
Subjective Progress Note Date: 10/13/23 This is a pleasant 73-year-old female patient with a known history of chronic obstructive pulmonary disease, CVA/TIA, diabetes mellitus, hypertension, hypothyroidism. She also has biopsy-proven smoking relatedinterstitial lung disease. A recent CT scan of the chest in July 2023 that revealed diffuse in terstitial densities with groundglass there is also a 3 cm masslike consolidative density in the right lower lobe medially. Suspicious for atelectasis versus neoplasm versus chronic infiltrate. A PET scan from August 19, 2023 revealed right lower lobe pulmonary nodule with increased metabolic activity compatible with malignancy. There is at least 1 right pulmonary hilum lymph node suspicious for metastatic disease. Extensive interstitial opacities along suspicious for ILD versus CHF. She has been followed in our office. She was given a trial of steroids for 4 weeks and was due for a follow-up CT scan of the chest on October 11, 2023. She presented here to the emergency room on 10/06/2023 with complaints of generalized weakness and fatigue. Having issues with diarrhea as well. She felt dizzy and without much energy. Chest x-ray again reveals cardiomegaly and prominent pulmonary vascular markings. White count 5.0. Hemoglobin 12.1. Platelets 212. Sodium 136. Potassium 3.5. Bicarb 22. BUN 16. Creatinine 1.1. Glucose 101. Urinalysis clean. Viral screen was negative. She is seen today in consultation. She is resting in bed. Awake and alert in no acute distress. Still having complaints of fatigue. Denies any worsening shortness of breath, cough or congestion. She is afebrile. Hemodynamically stable. Maintaining O2 saturations in the mid 90s on 2 L/min per nasal cannula. The patient is seen today October 09, 2023 in follow-up on the regular medical floor. She is currently laying flat in bed. Awake and alert in no acute distress. Maintaining O2 saturations in the 90s on 2 L/min per nasal cannula. White count 4.5. Hemoglobin 12.2. Platelets 210. Sodium 135. Potassium 3.1. Bicarb 29. BUN 15. Creatinine 0.99. Glucose 112. She remains on bronchodilat ors. Lovenox for DVT prophylaxis. Remains on oral diuretics. CT scan of the chest revealed pleural-based mass right lower lobe is essentially unchanged in size and appearance. Pulmonary fibrosis at least moderate in degree. The patient is seen today October 10, 2023 in follow-up on the regular medical floor. She is awake and alert in no acute distress. Maintaining O2 saturations in the 90s on 3 L/min per nasal cannula. She remains on bronchodilators. Remains on oral diuretics. Her breathing is at her baseline. White count 7.1. Hemoglobin 12.5. Platelets 257. Sodium 140. Potassium 3.4. Bicarb 29. BUN 17. Creatinine 1.3. Glucose 129. Remains on Lovenox for DVT prophylaxis. The patient is seen today October 11, 2023 in follow-up on the regular medical floor. She continues to rest flat in bed. No shortness of breath, cough or congestion. Maintaining O2 saturations in the 90s on 2 L/min per nasal cannula. Remains on bronchodilators. Remains on oral diuretics. Lovenox for DVT prophylaxis. No new labs today. She has had progressive weakness during this hospitalization. She is hoping to go to subacute rehabilitation instead of home now. The patient is seen today October 12, 2023 in follow-up on the regular medical floor. She is awake and alert in no acute distress. Maintaining O2 saturations in the 90s on 2 L/min per nasal cannula. No IV fluids. She is continued on bronchodilators. Lovenox for DVT prophylaxis. Oral diuretics. Sputum culture revealed no growth. White count 5.0. Hemoglobin 11.7. Platelets 268. Sodium 139. Potassium 3.3. Bicarb 27. BUN 17. Creatinine 1.0. Glucose 148. The patient is seen today October 13, 2023 in follow-up on the regular medical floor. She continues to rest comfortably in bed. Awake and alert in no acute distress. Maintaining O2 saturations in the 90s on 2 L/min per nasal cannula. She has been afebrile. Hemodynamically stable. Sputum culture revealed no growth. White count 6.2. Hemoglobin 11.5. Platelets 291. Sodium 141. Potassium 3.6. Bicarb 28. BUN 20. Creatinine 1.0. Glucose 132. She remains on bronchodilators. Continued on oral diuretics. Objective - Vital Signs Vital signs: Vital Signs Temp 98.1 F 10/13/23 08:00 Pulse 67 10/13/23 08:00 Resp 16 10/13/23 08:00 BP 114/63 10/13/23 08:00 Pulse Ox 98 10/13/23 08:00 FiO2 Intake & Output 10/12/23 10/13/23 10/13/23 18:59 06:59 18:59 Intake Total 354 118 Balance 354 118 Weight 80.5 kg Intake: Oral 354 118 Other: Voiding Method Toilet Toilet Diaper Diaper Incontinent Incontinent # Voids 3 2 # Bowel Movements 1 2 - Exam GENERAL EXAM: Alert, weak 73-year-old female, resting flat in bed, on 2 L nasal cannula, in no apparent distress. HEAD: Normocephalic. EYES: Normal reaction of pupils, equal size. NOSE: Clear with pink turbinates. THROAT: No erythema or exudates. NECK: No masses, no JVD. CHEST: No chest wall deformity. LUNGS: Equal air entry with coarse crackles bilaterally, diminished. CVS: S1 and S2 normal with no audible murmur, regular rhythm. ABDOMEN: No hepatosplenomegaly, normal bowel sounds, no guarding or rigidity. SPINE: No scoliosis or deformity SKIN: No rashes CENTRAL NERVOUS SYSTEM: No focal deficits, tone is normal in all 4 extremities. EXTREMITIES: There is no peripheral edema. No clubbing, no cyanosis. Peripheral pulses are intact. - Labs CBC & Chem 7: 10/13/23 05:59 10/13/23 05:59 Labs: Abnormal Lab Results - Last 24 Hours (Table) 10/13/23 10/13/23 Range/Units 05:59 05:59 RBC 4.00 L (4.10-5.20) X 10*6/uL Hgb 11.5 L (12.0-15.0) g/dL MCHC 30.5 L (32.0-37.0) g/dL RDW 17.4 H (11.5-14.5) % Anion Gap 12.60 H (4.00-12.00) mmol/L Est GFR (CKD-EPI) 59 L (>=60) Glucose 132 H (70-110) mg/dL Total Bilirubin 0.2 L (0.3-1.2) mg/dL Total Protein 6.0 L (6.2-8.2) g/dL Microbiology - Last 24 Hours (Table) 10/10/23 08:25 Gram Stain - Final Sputum Sputum Culture - Final Assessment and Plan Assessment: Generalized weakness and fatigue suspect secondary to diarrhea, poor oral intake, improved 3 cm masslike consolidative density in the right lower lobe being followed in the outpatient setting. A PET scan from August 19, 2023 revealed right lower lobe pulmonary nodule with increased metabolic activity compatible with malignancy. There is at least 1 right pulmonary hilum lymph node suspicious for metastatic disease. Extensive interstitial opacities along suspicious for ILD versus CHF. She was given a trial of steroids for 4 weeks and was due for a follow-up CT scan of the chest on October 11, 2023. CT scan of the chest was done yesterday 10/08/2023 that revealed similar pleural-based mass of the right lower lobe which is essentially unchanged in overall size and appearance. Possible minimal early cavitation. Pulmonary fibrosis at least moderate in degree. History of of diastolic congestive heart failure and valvular heart disease, most recent echocardiogram estimated a preserved left ventricular ejection fraction of 60 to 65%, with mild to moderate tricuspid regurgitation, mild mitral stenosis, mild aortic regurgitation. Chronic hypoxemic respiratory failure, secondary to above History of smoking-related interstitial fibrosis, biopsy-proven History of rectal cancer, status post chemo and radiation. Patient's most recent PET scan was from November, which did not show any new areas of abnormal hypermetabolic uptake to suggest active neoplastic recurrence. History of peripheral vascular occlusive disease, status post right femoral tibial bypass. History of previous right toe amputations Chronic microcytic, hypochromic anemia History obstructive sleep apnea History of hyperlipidemia History of CVA/TIA History of hypothyroidism History of frequent urinary tract infections Former tobacco smoker Plan: The patient was seen and evaluated Medications and labs reviewed Titrate down the FiO2 as tolerated Continue bronchodilators Continue oral diuretics Plan is for subacute rehab at [facility] This patient was seen independently by the pulmonary nurse practitioner addressing pulmonary issues I have personally seen and examined the patient, performed the documentation and the assessment and plan as written. Number of minutes spent on the visit: 23.
[2023-10-14 04:08] VITALS: TEMP 97.8
--- NOTE | 2023-10-14 12:10 | P.PN ---
Subjective Progress Note Date: 10/14/23 This is a pleasant 73-year-old female patient with a known history of chronic obstructive pulmonary disease, CVA/TIA, diabetes mellitus, hypertension, hypothyroidism. She also has biopsy-proven smoking relatedinterstitial lung disease. A recent CT scan of the chest in July 2023 that revealed diffuse in terstitial densities with groundglass there is also a 3 cm masslike consolidative density in the right lower lobe medially. Suspicious for atelectasis versus neoplasm versus chronic infiltrate. A PET scan from August 19, 2023 revealed right lower lobe pulmonary nodule with increased metabolic activity compatible with malignancy. There is at least 1 right pulmonary hilum lymph node suspicious for metastatic disease. Extensive interstitial opacities along suspicious for ILD versus CHF. She has been followed in our office. She was given a trial of steroids for 4 weeks and was due for a follow-up CT scan of the chest on October 11, 2023. She presented here to the emergency room on 10/06/2023 with complaints of generalized weakness and fatigue. Having issues with diarrhea as well. She felt dizzy and without much energy. Chest x-ray again reveals cardiomegaly and prominent pulmonary vascular markings. White count 5.0. Hemoglobin 12.1. Platelets 212. Sodium 136. Potassium 3.5. Bicarb 22. BUN 16. Creatinine 1.1. Glucose 101. Urinalysis clean. Viral screen was negative. She is seen today in consultation. She is resting in bed. Awake and alert in no acute distress. Still having complaints of fatigue. Denies any worsening shortness of breath, cough or congestion. She is afebrile. Hemodynamically stable. Maintaining O2 saturations in the mid 90s on 2 L/min per nasal cannula. The patient is seen today October 09, 2023 in follow-up on the regular medical floor. She is currently laying flat in bed. Awake and alert in no acute distress. Maintaining O2 saturations in the 90s on 2 L/min per nasal cannula. White count 4.5. Hemoglobin 12.2. Platelets 210. Sodium 135. Potassium 3.1. Bicarb 29. BUN 15. Creatinine 0.99. Glucose 112. She remains on bronchodilat ors. Lovenox for DVT prophylaxis. Remains on oral diuretics. CT scan of the chest revealed pleural-based mass right lower lobe is essentially unchanged in size and appearance. Pulmonary fibrosis at least moderate in degree. The patient is seen today October 10, 2023 in follow-up on the regular medical floor. She is awake and alert in no acute distress. Maintaining O2 saturations in the 90s on 3 L/min per nasal cannula. She remains on bronchodilators. Remains on oral diuretics. Her breathing is at her baseline. White count 7.1. Hemoglobin 12.5. Platelets 257. Sodium 140. Potassium 3.4. Bicarb 29. BUN 17. Creatinine 1.3. Glucose 129. Remains on Lovenox for DVT prophylaxis. The patient is seen today October 11, 2023 in follow-up on the regular medical floor. She continues to rest flat in bed. No shortness of breath, cough or congestion. Maintaining O2 saturations in the 90s on 2 L/min per nasal cannula. Remains on bronchodilators. Remains on oral diuretics. Lovenox for DVT prophylaxis. No new labs today. She has had progressive weakness during this hospitalization. She is hoping to go to subacute rehabilitation instead of home now. The patient is seen today October 12, 2023 in follow-up on the regular medical floor. She is awake and alert in no acute distress. Maintaining O2 saturations in the 90s on 2 L/min per nasal cannula. No IV fluids. She is continued on bronchodilators. Lovenox for DVT prophylaxis. Oral diuretics. Sputum culture revealed no growth. White count 5.0. Hemoglobin 11.7. Platelets 268. Sodium 139. Potassium 3.3. Bicarb 27. BUN 17. Creatinine 1.0. Glucose 148. The patient is seen today October 13, 2023 in follow-up on the regular medical floor. She continues to rest comfortably in bed. Awake and alert in no acute distress. Maintaining O2 saturations in the 90s on 2 L/min per nasal cannula. She has been afebrile. Hemodynamically stable. Sputum culture revealed no growth. White count 6.2. Hemoglobin 11.5. Platelets 291. Sodium 141. Potassium 3.6. Bicarb 28. BUN 20. Creatinine 1.0. Glucose 132. She remains on bronchodilators. Continued on oral diuretics. The patient is seen today October 14, 2023 in follow-up on the regular medical floor. She remains awake and alert in no acute distress. Resting comfortably in bed. She is maintaining good O2 saturations in the 90s on 2 L/min per nasal cannula. Sputum culture revealed no growth. No new labs today. She remains on bronchodilators. Continued on oral diuretics. No accurate I & O, due to incontinence. Objective - Vital Signs Vital signs: Vital Signs Temp 97.8 F 10/14/23 08:00 Pulse 64 10/14/23 08:10 Resp 18 10/14/23 09:05 BP 112/71 10/14/23 08:00 Pulse Ox 96 10/14/23 08:01 FiO2 Intake & Output 10/13/23 10/14/23 10/14/23 18:59 06:59 18:59 Intake Total 236 Balance 236 Weight 81.4 kg Intake: Oral 236 Other: Voiding Method Toilet Toilet Diaper Diaper Incontinent Incontinent # Voids 2 2 # Bowel Movements 2 0 - Exam GENERAL EXAM: Alert, weak 73-year-old female, on 2 L nasal cannula, in no apparent distress. HEAD: Normocephalic. EYES: Normal reaction of pupils, equal size. NOSE: Clear with pink turbinates. THROAT: No erythema or exudates. NECK: No masses, no JVD. CHEST: No chest wall deformity. LUNGS: Equal air entry with coarse crackles bilaterally, diminished. CVS: S1 and S2 normal with no audible murmur, regular rhythm. ABDOMEN: No hepatosplenomegaly, normal bowel sounds, no guarding or rigidity. SPINE: No scoliosis or deformity SKIN: No rashes CENTRAL NERVOUS SYSTEM: No focal deficits, tone is normal in all 4 extremities. EXTREMITIES: There is no peripheral edema. No clubbing, no cyanosis. Peripheral pulses are intact. - Labs CBC & Chem 7: 10/13/23 05:59 10/13/23 05:59 Assessment and Plan Assessment: Generalized weakness and fatigue suspect secondary to diarrhea, poor oral intake, improved 3 cm masslike consolidative density in the right lower lobe being followed in the outpatient setting. A PET scan from August 19, 2023 revealed right lower lobe pulmonary nodule with increased metabolic activity compatible with malignancy. There is at least 1 right pulmonary hilum lymph node suspicious for metastatic disease. Extensive interstitial opacities along suspicious for ILD versus CHF. She was given a trial of steroids for 4 weeks and was due for a follow-up CT scan of the chest on October 11, 2023. CT scan of the chest was done yesterday 10/08/2023 that revealed similar pleural-based mass of the right lower lobe which is essentially unchanged in overall size and appearance. Possible minimal early cavitation. Pulmonary fibrosis at least moderate in degree. History of of diastolic congestive heart failure and valvular heart disease, most recent echocardiogram estimated a preserved left ventricular ejection fraction of 60 to 65%, with mild to moderate tricuspid regurgitation, mild mitral stenosis, mild aortic regurgitation. Chronic hypoxemic respiratory failure, secondary to above History of smoking-related interstitial fibrosis, biopsy-proven History of rectal cancer, status post chemo and radiation. Patient's most recen t PET scan was from November, which did not show any new areas of abnormal hypermetabolic uptake to suggest active neoplastic recurrence. History of peripheral vascular occlusive disease, status post right femoral tibial bypass. History of previous right toe amputations Chronic microcytic, hypochromic anemia History obstructive sleep apnea History of hyperlipidemia History of CVA/TIA History of hypothyroidism History of frequent urinary tract infections Former tobacco smoker Plan: The patient was seen and evaluated Stable and on 2 L nasal cannula Medications reviewed Continue bronchodilators Continue oral diuretics Plan is for [facility] at discharge This patient was seen independently by the pulmonary nurse practitioner addressing pulmonary issues I have personally seen and examined the patient, performed the documentation and the assessment and plan as written. Number of minutes spent on the visit: 24
--- NOTE | 2023-10-14 14:13 | P.DS ---
Providers Date of admission: 10/11/23 09:08 Attending physician: Lisseth Isaac Consults: 10/07/23 13:31 Consult Physician Routine Consulting Provider: Reji Genao Consult Reason/Comments: CHF Do you want consulting provider notified?: Yes 10/07/23 17:55 Consult Physician Routine Consulting Provider: Alexandra Adams Consult Reason/Comments: Shortness of breath Do you want consulting provider notified?: Yes Primary care physician: Lisseth [facility] Course: Diagnoses: Worsening shortness of breath, secondary to CHF exacerbation on the top of lung mass Episodes of severe diarrhea. No more diarrhea today and yesterday Acute diastolic congestive heart failure exacerbation Right lower lobe pleural-based lung mass suspicious for cancer. Patient to follow-up with Dr. Gao on October 18 Underlying history of COPD Underlying history of hypertension Underlying history of peripheral vascular disease Underlying history of obstructive sleep apnea maintained on CPAP Underlying history of diabetes mellitus Previous history of anal cancer with radiation therapy in 2016 Previous history of kidney stones Hospital course: Alexia Rubin, is a 73-year-old female who presented to [facility] emergency room with a chief complaint of generalized weakness, worsening shortness of breath, and diarrhea. Patient presents because of shortness of breath and diarrhea, chest x-ray on admission showed pulmonary vascular congestion and cardiomegaly. Patient was evaluated by pulmonary team for surgery she has been treated well. Her oxygen saturation is 93 to 94% on room air. CT of the chest showing right lower lobe mass and change with pulmonary fibrosis. Patient has been cleared for discharge by all consultants including cardiology and pulmonary Patient herself she feels fine and she can be discharged to rehab because of her generalized weakness. She said her diarrhea stopped 2 days ago. She tolerates diet [facility] she finishes half of her meal, she complains from occasional nausea which is controlled with medication. No urinary complaint headache or dizziness. Problems and management plan were discussed with the patient and he verbalized understanding and acceptance Patient was found stable and can be discharged home in guarded prognosis however he needs follow-up as an outpatient. Patient was instructed to follow up with PCP within one week and patient agrees Patient was instructed to follow-up with her soaker hides Dr. Irving/Dr. Adams in 1 to 2 weeks after discharge and she agrees Patient also was instructed to follow-up with oncologist Dr. Richter and she told me she has an appointment with him on October 18 that she intends to follow-up with. She states she knows Dr. Richter from before when she has her previous cancer Physical exam Gen: patient is a AAOx3, no distress CVS: S1-S2, RRR, no murmur Lungs: B/L CTA, no wheezing Abdomen: soft, no distention, no tenderness, positive bowel sounds Extremity: no leg edema or induration Time spent more than 35 minutes Patient Condition at Discharge: Stable Plan - Discharge Summary New Discharge Prescriptions: New Nystatin 100,000 Unit/gm Powd [Mycostatin Powder] 1 applic TOPICAL BID 15 Days #100 each Albuterol Inhaler [Ventolin Hfa Inhaler] 2 puff INHALATION Q6H PRN 30 Days #1 each PRN Reason: Shortness Of Breath Continue Clopidogrel [Plavix] 75 mg PO DAILY Levothyroxine Sodium [Synthroid] 25 mcg PO DAILY Gabapentin [Neurontin] 300 mg PO BID Gabapentin 600 mg PO BID Atorvastatin [Lipitor] 80 mg PO HS Furosemide [Lasix] 40 mg PO BID@0900,1400 traZODone HCL [Desyrel] 100 mg PO HS Albuterol Nebulized [Ventolin Nebulized] 2.5 mg INHALATION RT-TID HYDROcodone/APAP 5-325MG [[place] 5-325] 1 tab PO TID Ferrous Sulfate [Iron (65 MG Elemental)] 325 mg PO BID FLUoxetine HCL [PROzac] 40 mg PO DAILY Aspirin 81 mg PO DAILY #30 tab carBAMazepine [carBAMazepine ER] 100 mg PO BID ALPRAZolam [Xanax] 0.25 mg PO DAILY PRN PRN Reason: Anxiety levETIRAcetam [Keppra] 750 mg PO BID Discharge Medication List Clopidogrel [Plavix] 75 mg PO DAILY 08/15/16 [History] Levothyroxine Sodium [Synthroid] 25 mcg PO DAILY 08/15/16 [History] FLUoxetine HCL [PROzac] 40 mg PO DAILY 07/25/20 [History] Gabapentin [Neurontin] 300 mg PO BID 08/03/22 [History] Aspirin 81 mg PO DAILY #30 tab 08/10/22 [Rx] ALPRAZolam [Xanax] 0.25 mg PO DAILY PRN 04/04/23 [History] Atorvastatin [Lipitor] 80 mg PO HS 04/04/23 [History] Gabapentin 600 mg PO BID 04/04/23 [History] carBAMazepine [carBAMazepine ER] 100 mg PO BID 04/04/23 [History] levETIRAcetam [Keppra] 750 mg PO BID 07/19/23 [History] Furosemide [Lasix] 40 mg PO BID@0900,1400 08/08/23 [History] Albuterol Nebulized [Ventolin Nebulized] 2.5 mg INHALATION RT-TID 09/10/23 [History] Ferrous Sulfate [Iron (65 MG Elemental)] 325 mg PO BID 09/10/23 [History] HYDROcodone/APAP 5-325MG [[place] 5-325] 1 tab PO TID 09/10/23 [History] traZODone HCL [Desyrel] 100 mg PO HS 09/10/23 [History] Albuterol Inhaler [Ventolin Hfa Inhaler] 2 puff INHALATION Q6H PRN 30 Days #1 each 10/10/23 [Rx] Nystatin 100,000 Unit/gm Powd [Mycostatin Powder] 1 applic TOPICAL BID 15 Days #100 each 10/10/23 [Rx] Follow up Appointment(s)/Referral(s): Reji Genao MD [STAFF PHYSICIAN] - 1 Week Oswald Irving DO [Doctor of Osteopathic Medicine] - 1 Week Lisseth Isaac MD [Primary Care Provider] - 1-2 days
[2023-10-14 14:42] VITALS: BP 103/65; RESP 16
[2023-10-14 15:15] VITALS: PULSE 68
== END 2023-10-14 16:42 | DRG 291 ==
LOC: EC 12:49 → 1SOBS 19:43 → 6NMEDSUR 10-07 15:35 → OBSVTOIN 10-11 09:08
PROVIDERS: ADMIT Internal Medicine; ATTEND Internal Medicine
DX: I11.0 Hypertensive heart disease with heart failure (principal); I50.33 Acute on chronic diastolic (congestive) heart failure; J96.11 Chronic respiratory failure with hypoxia; E87.1 Hypo-osmolality and hyponatremia; E11.51 Type 2 diabetes mellitus with diabetic peripheral angiopathy without gangrene; D50.9 Iron deficiency anemia, unspecified; E03.9 Hypothyroidism, unspecified; J84.10 Pulmonary fibrosis, unspecified; J44.9 Chronic obstructive pulmonary disease, unspecified; E66.9 Obesity, unspecified; Z68.32 Body mass index [BMI] 32.0-32.9, adult; F32.A Depression, unspecified; I71.40 Abdominal aortic aneurysm, without rupture, unspecified; Z95.828 Presence of other vascular implants and grafts; I08.3 Combined rheumatic disorders of mitral, aortic and tricuspid valves; Z11.52 Encounter for screening for COVID-19; E78.5 Hyperlipidemia, unspecified; F41.9 Anxiety disorder, unspecified; G47.33 Obstructive sleep apnea (adult) (pediatric); N32.81 Overactive bladder; R91.1 Solitary pulmonary nodule; M54.9 Dorsalgia, unspecified; R29.6 Repeated falls; R32 Unspecified urinary incontinence; G24.9 Dystonia, unspecified; R19.7 Diarrhea, unspecified; Z91.128 Patient's intentional underdosing of medication regimen for other reason; Z99.81 Dependence on supplemental oxygen; Z79.82 Long term (current) use of aspirin; Z79.02 Long term (current) use of antithrombotics/antiplatelets; Z79.890 Hormone replacement therapy; Z79.899 Other long term (current) drug therapy; Z87.891 Personal history of nicotine dependence; Z85.048 Personal history of other malignant neoplasm of rectum, rectosigmoid junction, and anus; Z86.73 Personal history of transient ischemic attack (TIA), and cerebral infarction without residual deficits; Z87.440 Personal history of urinary (tract) infections; Z92.21 Personal history of antineoplastic chemotherapy; Z92.3 Personal history of irradiation; Z96.611 Presence of right artificial shoulder joint; Z96.653 Presence of artificial knee joint, bilateral; Z96.82 Presence of neurostimulator; Z88.1 Allergy status to other antibiotic agents; Z88.0 Allergy status to penicillin
CPT/HCPCS: 36415; 71046; 71260; 80053; 80177; 81001; 83605; 83735; 83880; 84100; 84132; 84443; 84484; 85025; 85610; 85730; 87070; 87205; 87636; 93005; 94640; 94760; 96361; 96374; 99285; 99406

== ENCOUNTER 2024-01-23 10:57 | Inpatient (IN) | payer MEDICARE ==
--- NOTE | 2024-01-23 11:11 | ED ---
Weakness HPI - General Chief complaint: Weakness Stated complaint: weakness Time Seen by Provider: 01/23/24 11:11 Source: patient, EMS, RN notes reviewed Mode of arrival: EMS - History of Present Illness Initial comments: 74-year-old female with a history of COPD, lung cancer, and CHF presents emergency department via EMS for chief complaint of increasing weakness and shortness of breath. Patient states that this morning when she went to use the bathroom she felt lightheaded and worsening shortness of breath, fell forward onto her left knee. denies LOC or hitting her head at this time. Was diagnosed with a URI approximately a week ago she was started on antibiotics and steroids. States she is not taking his medication this morning. Currently she is denying chest pain, lightheadedness, headaches, abdominal pain, urinary changes. Patient states that she has been feeling more short of breath over the past few weeks. She does wear oxygen at home. Patient has an appointment scheduled on 01/26 for a PET scan for staging of lung cancer. Denies current chemo or radi ation. - Related Data Home Medications Medication Instructions Recorded Confirmed Clopidogrel [Plavix] 75 mg PO DAILY 08/15/16 10/06/23 Levothyroxine Sodium [Synthroid] 25 mcg PO DAILY 08/15/16 10/06/23 FLUoxetine HCL [PROzac] 40 mg PO DAILY 07/25/20 10/06/23 Gabapentin [Neurontin] 300 mg PO BID 08/03/22 10/06/23 Atorvastatin [Lipitor] 80 mg PO HS 04/04/23 10/06/23 Gabapentin 600 mg PO BID 04/04/23 10/06/23 carBAMazepine [carBAMazepine ER] 100 mg PO BID 04/04/23 10/06/23 levETIRAcetam [Keppra] 750 mg PO BID 07/19/23 10/06/23 Furosemide [Lasix] 40 mg PO BID@0900,1400 08/08/23 10/06/23 Albuterol Nebulized [Ventolin 2.5 mg INHALATION RT-TID 09/10/23 10/06/23 Nebulized] Ferrous Sulfate [Iron (65 MG 325 mg PO BID 09/10/23 10/06/23 Elemental)] traZODone HCL [Desyrel] 100 mg PO HS 09/10/23 10/06/23 Previous Rx's Medication Instructions Recorded Aspirin 81 mg PO DAILY #30 tab 08/10/22 Albuterol Inhaler [Ventolin Hfa 2 puff INHALATION Q6H PRN 30 Days 10/10/23 Inhaler] #1 each Nystatin 100,000 Unit/gm Powd 1 applic TOPICAL BID 15 Days #100 10/10/23 [Mycostatin Powder] each Allergies Allergy/AdvReac Type Severity Reaction Status Date / Time erythromycin base Allergy Rash/Hives Verified 01/23/24 11:08 Fish Containing Products Allergy Anaphylaxis Verified 01/23/24 11:08 Penicillins Allergy Anaphylaxis Verified 01/23/24 11:08 shellfish derived [Shellfish] Allergy Anaphylaxis Verified 01/23/24 11:08 levofloxacin [From Levaquin] AdvReac Rash/Hives, Verified 01/23/24 11:08 swelling Review of Systems ROS Statement: Those systems with pertinent positive or pertinent negative responses have been documented in the HPI. ROS Other: All systems not noted in ROS Statement are negative. 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 ,States yeast infection in genital area and folds of abd., diet controlled diabetes., has stimulator left hip for back pain (not working)., PAD. Recent diagosis of lung cancer History of Any Multi-Drug Resistant Organisms: None Reported Past Surgical History: Appendectomy, Back Surgery, Bladder Surgery, Cholecystectomy, Hysterectomy, Joint Replacement Additional Past Surgical History / Comment(s): Bilateral knee replacements, right shoulder rotator cuff X2, bilateral iliac femoral stents, bladder suspension X2, right Mediport removed, left lung biopsy, lymph node biopsy, left groin biopsy(malignant). bilateral carpal tunnel, bilateral cataracts, right shoulder replacement. stimulator in hip (left) for back, bilateral iliac arterial stents., R femoral stent Past Anesthesia/Blood Transfusion Reactions: No Reported Reaction, Family History of Problems w/ Anesthesia Additional Past Anesthesia/Blood Transfusion Reaction / Comment(s): Martín trophobic., vomited and aspirated during colonoscopy. son had difficulty waking up after surgery Past Psychological History: Anxiety, Depression Smoking Status: Former smoker, Vaper Past Alcohol Use History: None Reported Past Drug Use History: None Reported - Past Family History Sister(s) Family Medical History: Cancer Additional Family Medical History / Comment(s): Lung cancer. other sister heart failure Brother(s) Family Medical History: Cancer Additional Family Medical History / Comment(s): Lung cancer. Mother Family Medical History: Cancer Additional Family Medical History / Comment(s): Drugs and alcohol - of. Ear lobe cancer. Father Family Medical History: Cancer, Hyperlipidemia, Hypertension Additional Family Medical History / Comment(s): Skin cancer. General Exam General appearance: alert, in no apparent distress Eye exam: Present: normal appearance, PERRL, EOMI. Absent: scleral icterus, conjunctival injection, periorbital swelling Neck exam: Present: normal inspection. Absent: tenderness, meningismus, lymphadenopathy Respiratory exam: Present: normal lung sounds bilaterally, rhonchi (left lung field), decreased breath sounds. Absent: respiratory distress, wheezes, rales, stridor Cardiovascular Exam: Present: regular rate, normal rhythm, normal heart sounds. Absent: systolic murmur, diastolic murmur, rubs, gallop, clicks GI/Abdominal exam: Present: soft, normal bowel sounds. Absent: distended, tenderness, guarding, rebound, rigid Left Knee exam: Present: tenderness, swelling. Absent: full ROM, deformity, crepi tus, erythema Neurovascular tendon exam: Present: no vascular compromise. Absent: pulse deficit, abnormal cap refill Gait: not tested/not observed Back exam: Present: normal inspection Neurological exam: Present: alert, oriented X3, CN II-XII intact Skin exam: Present: warm, dry, intact, normal color. Absent: rash Course Vital Signs 01/23/24 01/23/24 01/23/24 10:58 11:16 11:47 Temperature 99.0 F 98.4 F Pulse Rate 82 65 75 Respiratory 22 20 20 Rate Blood Pressure 87/59 107/53 108/55 O2 Sat by Pulse 93 L 91 L 91 L Oximetry 01/23/24 01/23/2401/22/24 11:48 11:56 12:51 Temperature Pulse Rate 75 76 83 Respiratory 22 Rate Blood Pressure 119/78 O2 Sat by Pulse 90 L Oximetry 01/23/24 13:08 Temperature Pulse Rate 75 Respiratory 22 Rate Blood Pressure 99/45 O2 Sat by Pulse 89 L Oximetry Medical Decision Making - Medical Decision Making Was pt. sent in by a medical professional or institution (, PA, [facility], urgent care, hospital, or long-term...) When possible be specific @ -No Did you speak to anyone other than the patient for history (EMS, parent, family, police, friend...)? What history was obtained from this source @ -No Did you review nursing and triage notes (agree or disagree)? Why? @ -I reviewed and agree with nursing and triage notes Were old charts reviewed (outside hosp., previous admission, EMS record, old EKG, old radiological studies, urgent care reports/EKG's, long-term records)? Report findings @ -Reviewed patient's chart note from January 10 where she was admitted to the hospital for worsening shortness of breath and was following with pulmonology and cardiology. Patient's echocardiogram completed in July 2023 reveals an ejection fraction of 60 to 65% with mild mitral stenosis. Differential Diagnosis (chest pain, altered mental status, abdominal pain women, abdominal pain men, vaginal bleeding, weakness, fever, dyspnea, syncope, headache, dizziness, GI bleed, back pain, seizure, CVA, palpatations, mental health, musculoskeletal)? @ -Differential Dyspnea: Coronary syndrome, arrhythmia, tamponade, asthma, COPD, pulmonary embolism, pneumonia, pneumothorax, pulmonary effusion, anaphylaxis, diabetic ketoacidosis, flailed chest, pulmonary contusion, diaphragmatic rupture, anemia, neuromuscular, this is not meant to be an all-inclusive list. EKG interpreted by me (3pts min.). @ -completed at 1110 sinus rhythm with a ventricular to 78, AL interval 153, QRS 82, QTc 355. X-rays interpreted by me (1pt min.). @ -Chest x-ray remarkable for pulmonary edema and atypical pneumonia could be considered with fullness of the right hilum and underlying mass is not excluded X-ray of the left knee reveals a small joint effusion with no acute osseous abnormality seen CT interpreted by me (1pt min.). @ -None done U/S interpreted by me (1pt. min.). @ -None done What testing was considered but not performed or refused? (CT, X-rays, U/S, labs)? Why? @ -None What meds were considered but not given or refused? Why? @ -None Did you discuss the management of the patient with other professionals (charo russell i.e. , PA, [facility], lab, RT, psych nurse, social media strategist, photographic editor, teacher, space officer, caseworker protective services)? Give summary @ -Spoke with the patient's primary care provider, Dr. Isaac, in regard to the patient's presentation and concern for pneumonia and congestive heart failure. Patient is excepted for admission with cardiology, pulmonology, infectious disease on consult for further evaluation as well. Was smoking cessation discussed for >3mins.? @ -No Was critical care preformed (if so, how long)? @ -No Were there social determinants of health that impacted care today? How? (Homelessness, low income, unemployed, alcoholism, drug addiction, transportation, low edu. Level, literacy, decrease access to med. care, alf, rehab)? @ -No Was there de-escalation of care discussed even if they declined (Discuss DNR or withdrawal of care, Hospice)? DNR status @ -No What co-morbidities impacted this encounter? (DM, HTN, Smoking, COPD, CAD, Cancer, CVA, ARF, Chemo, Hep., AIDS, mental health diagnosis, sleep apnea, morbid obesity)? @ -COPD, lung CA, congestive heart failure Was patient admitted / discharged? Hospital course, mention meds given and route, prescriptions, significant lab abnormalities, going to OR and other pertinent info. @ -74-year-old female with worsening dyspnea. Patient arrives via EMS it is reported that patient was found in her house to be hypoxic with an O2 saturation in the 70s. Currently patient is found to be mildly hypotensive with a blood pressure of 107/53 and stating at 91% on 3 L nasal cannula. Patient states that her blood pressures normally to run soft and that her oxygen saturation is normally in the low 90s as well. She is denying chest pain. Endorsing worsening dyspnea over the past few weeks. Laboratory studies reveal leukocyt osis of 14.5, left shift neutrophils 11.7, coagulation profile within normal limits, troponin not elevated at 0.012, BNP elevated at 2010, Cepheid negative. X-ray concerning for pulmonary vascular congestion and atypical pneumonia. X- ray left knee negative for acute process. Patient will be admitted to internal medicine with cardiology, pulmonology, infectious disease on consult for further evaluation of congestive heart failure and pneumonia. She will be started on azithromycin and Rocephin. Additionally, patient's urinalysis remarkable for infection including Leukocyte esterase, white blood cells and Rocephin will likely cover this infection. Additionally, urinalysis will be sent for culture for further evaluation of potential bacterial growth. Case discussed with my attending, Dr. Vaughan. Undiagnosed new problem with uncertain prognosis? @ -No Drug Therapy requiring intensive monitoring for toxicity (Heparin, Nitro, Insulin, Cardizem)? @ -No Were any procedures done? @ -No Diagnosis/symptom? @ -Urinary tract infection, pneumonia, COPD, vascular congestion, congestive heart failure Acute, or Chronic, or Acute on Chronic? @ -Acute Uncomplicated (without systemic symptoms) or Complicated (systemic symptoms)? @ -complicated Side effects of treatment? @ -No Exacerbation, Progression, or Severe Exacerbation? @ -No Poses a threat to life or bodily function? How? (Chest pain, USA, AL, pneumonia, PE, COPD, DKA, ARF, appy, cholecystitis, CVA, Diverticulitis, Homicidal, Suicidal, threat to staff... and all critical care pts) @ -No - Lab Data Result diagrams: 01/23/24 11:25 01/23/24 11:25 Lab Results 01/23/24 01/23/24 01/23/24 Range/Units 11:25 11:25 11:25 WBC 14.5 H (3.8-10.6) k/uL RBC 3.74 L (3.80-5.40) m/uL Hgb 11.1 L (11.4-16.0) gm/dL Hct 34.4 (34.0-46.0) % MCV 91.8 (80.0-100.0) fL MCH 29.5 (25.0-35.0) pg MCHC 32.2 (31.0-37.0) g/dL RDW 14.7 (11.5-15.5) % Plt Count 471 H (150-450) k/uL MPV 8.2 Neutrophils % 81 % Lymphocytes % 11 % Monocytes % 4 % Eosinophils % 1 % Basophils % 0 % Neutrophils # 11.7 H (1.3-7.7) k/uL Lymphocytes # 1.6 (1.0-4.8) k/uL Monocytes # 0.6 (0-1.0) k/uL Eosinophils # 0.1 (0-0.7) k/uL Basophils # 0.0 (0-0.2) k/uL PT 11.3 (10.0-12.5) sec INR 1.0 (<1.2) APTT 27.2 (22.0-30.0) sec Sodium 135 L (137-145) mmol/L Potassium 3.6 (3.5-5.1) mmol/L Chloride 100 (98-107) mmol/L Carbon Dioxide 23 (22-30) mmol/L Anion Gap 12 mmol/L BUN 17 (7-17) mg/dL Creatinine 0.71 (0.52-1.04) mg/dL Est GFR (CKD-EPI)AfAm >90 (>60 ml/min/1.73 sqM) Est GFR (CKD-EPI)NonAf 84 (>60 ml/min/1.73 sqM) Glucose 204 H (74-99) mg/dL Plasma Lactic Acid Boyd (0.7-2.0) mmol/L Calcium 8.7 (8.4-10.2) mg/dL Magnesium 1.8 (1.6-2.3) mg/dL Total Bilirubin 1.0 (0.2-1.3) mg/dL AST 60 H (14-36) U/L ALT 33 (4-34) U/L Alkaline Phosphatase 94 (38-126) U/L Troponin I (0.000-0.034) ng/mL NT-Pro-B Natriuret Pep 2010 pg/mL Total Protein 6.1 L (6.3-8.2) g/dL Albumin 3.4 L (3.5-5.0) g/dL Urine Color Urine Appearance (Clear) Urine pH (5.0-8.0) Ur Specific [place] (1.001-1.035) Urine Protein (Negative) Urine Glucose (UA) (Negative) Urine Ketones (Negative) Urine Blood (Negative) Urine Nitrite (Negative) Urine Bilirubin (Negative) Urine Urobilinogen (<2.0) mg/dL Ur Leukocyte Esterase (Negative) Urine RBC (0-5) /hpf Urine WBC (0-5) /hpf Ur Squamous Epith Cells (0-4) /hpf Amorphous Sediment (None) /hpf Urine Mucus (None) /hpf Influenza Type A (PCR) (Not Detectd) Influenza Type B (PCR) (Not Detectd) RSV (PCR) (Not Detectd) SARS-CoV-2 (PCR) (Not Detectd) 01/23/24 01/23/24 01/23/24 Range/Units 11:25 11:25 11:25 WBC (3.8-10.6) k/uL RBC (3.80-5.40) m/uL Hgb (11.4-16.0) gm/dL Hct (34.0-46.0) % MCV (80.0-100.0) fL MCH (25.0-35.0) pg MCHC (31.0-37.0) g/dL RDW (11.5-15.5) % Plt Count (150-450) k/uL MPV Neutrophils % % Lymphocytes % % Monocytes % % Eosinophils % % Basophils % % Neutrophils # (1.3-7.7) k/uL Lymphocytes # (1.0-4.8) k/uL Monocytes # (0-1.0) k/uL Eosinophils # (0-0.7) k/uL Basophils # (0-0.2) k/uL PT (10.0-12.5) sec INR (<1.2) APTT (22.0-30.0) sec Sodium (137-145) mmol/L Potassium (3.5-5.1) mmol/L Chloride (98-107) mmol/L Carbon Dioxide (22-30) mmol/L Anion Gap mmol/L BUN (7-17) mg/dL Creatinine (0.52-1.04) mg/dL Est GFR (CKD-EPI)AfAm (>60 ml/min/1.73 sqM) Est GFR (CKD-EPI)NonAf (>60 ml/min/1.73 sqM) Glucose (74-99) mg/dL Plasma Lactic Acid Boyd 2.0 (0.7-2.0) mmol/L Calcium (8.4-10.2) mg/dL Magnesium (1.6-2.3) mg/dL Total Bilirubin (0.2-1.3) mg/dL AST (14-36) U/L ALT (4-34) U/L Alkaline Phosphatase (38-126) U/L Troponin I <0.012 (0.000-0.034) ng/mL NT-Pro-B Natriuret Pep pg/mL Total Protein (6.3-8.2) g/dL Albumin (3.5-5.0) g/dL Urine Color Urine Appearance (Clear) Urine pH (5.0-8.0) Ur Specific [place] (1.001-1.035) Urine Protein (Negative) Urine Glucose (UA) (Negative) Urine Ketones (Negative) Urine Blood (Negative) Urine Nitrite (Negative) Urine Bilirubin (Negative) Urine Urobilinogen (<2.0) mg/dL Ur Leukocyte Esterase (Negative) Urine RBC (0-5) /hpf Urine WBC (0-5) /hpf Ur Squamous Epith Cells (0-4) /hpf Amorphous Sediment (None) /hpf Urine Mucus (None) /hpf Influenza Type A (PCR) Not Detected (Not Detectd) Influenza Type B (PCR) Not Detected (Not Detectd) RSV (PCR) Not Detected (Not Detectd) SARS-CoV-2 (PCR) Not Detected (Not Detectd) 01/23/24 Range/Units 12:51 WBC (3.8-10.6) k/uL RBC (3.80-5.40) m/uL Hgb (11.4-16.0) gm/dL Hct (34.0-46.0) % MCV (80.0-100.0) fL MCH (25.0-35.0) pg MCHC (31.0-37.0) g/dL RDW (11.5-15.5) % Plt Count (150-450) k/uL MPV Neutrophils % % Lymphocytes % % Monocytes % % Eosinophils % % Basophils % % Neutrophils # (1.3-7.7) k/uL Lymphocytes # (1.0-4.8) k/uL Monocytes # (0-1.0) k/uL Eosinophils # (0-0.7) k/uL Basophils # (0-0.2) k/uL PT (10.0-12.5) sec INR (<1.2) APTT (22.0-30.0) sec Sodium (137-145) mmol/L Potassium (3.5-5.1) mmol/L Chloride (98-107) mmol/L Carbon Dioxide (22-30) mmol/L Anion Gap mmol/L BUN (7-17) mg/dL Creatinine (0.52-1.04) mg/dL Est GFR (CKD-EPI)AfAm (>60 ml/min/1.73 sqM) Est GFR (CKD-EPI)NonAf (>60 ml/min/1.73 sqM) Glucose (74-99) mg/dL Plasma Lactic Acid Boyd (0.7-2.0) mmol/L Calcium (8.4-10.2) mg/dL Magnesium (1.6-2.3) mg/dL Total Bilirubin (0.2-1.3) mg/dL AST (14-36) U/L ALT (4-34) U/L Alkaline Phosphatase (38-126) U/L Troponin I (0.000-0.034) ng/mL NT-Pro-B Natriuret Pep pg/mL Total Protein (6.3-8.2) g/dL Albumin (3.5-5.0) g/dL Urine Color Yellow Urine Appearance Cloudy H (Clear) Urine pH 7.5 (5.0-8.0) Ur Specific [place] 1.022 (1.001-1.035) Urine Protein 1+ H (Negative) Urine Glucose (UA) Negative (Negative) Urine Ketones Negative (Negative) Urine Blood Large H (Negative) Urine Nitrite Negative (Negative) Urine Bilirubin Negative (Negative) Urine Urobilinogen 4.0 (<2.0) mg/dL Ur Leukocyte Esterase Large H (Negative) Urine RBC 117 H (0-5) /hpf Urine WBC 38 H (0-5) /hpf Ur Squamous Epith Cells 6 H (0-4) /hpf Amorphous Sediment Rare H (None) /hpf Urine Mucus Rare H (None) /hpf Influenza Type A (PCR) (Not Detectd) Influenza Type B (PCR) (Not Detectd) RSV (PCR) (Not Detectd) SARS-CoV-2 (PCR) (Not Detectd) Disposition Clinical Impression: Pulmonary vascular congestion, Pneumonia, Urinary tract infection Disposition: ADMITTED IP TO THIS HOSP Condition: Stable Is patient prescribed a controlled substance at d/c from ED?: No Referrals: Lisseth Isaac MD [Primary Care Provider] - 1-2 days Decision to Admit Reason: Admit from EC Decision Date: 01/23/24 Decision Time: 13:09
[2024-01-23] MEDS: MORPHINE SULFATE 2 MG/ML SYRINGE IVP ONE (11:45)
[2024-01-23] MEDS: IPRATROPIUM-ALBUTEROL 3 ML NEB INHALATION STA (11:47)
[2024-01-23 11:49] LABS: ALT 33 U/L (4-34); AST 60 U/L (14-36); African American GFR (CKD) >90 (>60 ml/min/1.73 sqM); Albumin 3.4 g/dL (3.5-5.0); Alkaline Phosphatase 94 U/L (38-126); Anion Gap 12 mmol/L; Blood Urea Nitrogen 17 mg/dL (7-17); Calcium 8.7 mg/dL (8.4-10.2); Carbon Dioxide 23 mmol/L (22-30); Chloride 100 mmol/L (98-107); Glucose 204 mg/dL (74-99); Magnesium 1.8 mg/dL (1.6-2.3); Non-African American GFR(CKD) 84 (>60 ml/min/1.73 sqM); Potassium 3.6 mmol/L (3.5-5.1); Sodium 135 mmol/L (137-145); Total Protein 6.1 g/dL (6.3-8.2)
[2024-01-23 11:52] LABS: Basophils % (A) 0 %; Eosinophils # (A) 0.1 k/uL (0-0.7); Eosinophils % (A) 1 %; HCT 34.4 % (34.0-46.0); HGB 11.1 gm/dL (11.4-16.0); Lymphocytes # (A) 1.6 k/uL (1.0-4.8); Lymphocytes % (A) 11 %; MCH 29.5 pg (25.0-35.0); MCHC 32.2 g/dL (31.0-37.0); MCV 91.8 fL (80.0-100.0); Mean Platelet Volume 8.2; Monocytes # (A) 0.6 k/uL (0-1.0); Monocytes % (A) 4 %; Neutrophils # (A) 11.7 k/uL (1.3-7.7); Neutrophils % (A) 81 %; Platelet Count 471 k/uL (150-450); RBC 3.74 m/uL (3.80-5.40); RDW 14.7 % (11.5-15.5); WBC 14.5 k/uL (3.8-10.6)
[2024-01-23 11:53] LABS: Partial Thromboplastin Time 27.2 sec (22.0-30.0); Prothrombin Time 11.3 sec (10.0-12.5)
[2024-01-23 11:56] LABS: NT-Pro-B-Type Natriuretic Pept 2010 pg/mL
--- NOTE | 2024-01-23 12:50 | XR ---
EXAMINATION TYPE: XR knee complete LT DATE OF EXAM: 01/23/2024 COMPARISON: None HISTORY: Fall, pain TECHNIQUE: 3 view left knee FINDINGS: Tibial femoral components are present. No acute fractures are evident. Small joint effusion is likely present. Follow up exams can be performed 7-10 days from acute trauma for continued pain. IMPRESSION: 1. No acute osseous abnormality left knee. 2. Small joint effusion. [facility], Workstation: [facility], 01/23/2024 12:47 PM
--- NOTE | 2024-01-23 12:51 | XR ---
EXAMINATION TYPE: XR chest 2V DATE OF EXAM: 01/23/2024 COMPARISON: 10/06/2023 INDICATION: Weakness, productive cough TECHNIQUE: Frontal and lateral views of the chest are obtained. FINDINGS: The heart size is normal. The pulmonary vasculature is prominent. Diffuse increased lung markings are present bilaterally. Small right pleural effusion is present. The re is fullness of the right hilum. Underlying mass is not excluded. Follow-up is recommended.. IMPRESSION: 1. Findings suggestive for pulmonary edema. Atypical pneumonia could be considered. 2. Fullness of the right hilum. Underlying mass is not excluded. Follow-up is recommended. [facility], Workstation: [facility], 01/23/2024 12:49 PM
[2024-01-23 13:01] LABS: Amorphous Sediment,Urine Rare /hpf; Appearance,Urine Cloudy (Clear); Bilirubin,Urine Negative (Negative); Blood,Urine Large (Negative); Color,Urine Yellow; Glucose,Urine (UA) Negative (Negative); Ketones,Urine Negative (Negative); Leukocyte Esterase,Urine Large (Negative); Mucus,Urine Rare /hpf; Nitrite,Urine Negative (Negative); PH, Urine 7.5 (5.0-8.0); Protein,Urine 1+ (Negative); RBC,Urine 117 /hpf (0-5); Specific Gravity,Urine 1.022 (1.001-1.035); Squamous Epithelial Cell,Urine 6 /hpf (0-4); WBC,Urine 38 /hpf (0-5)
[2024-01-23] MEDS ORDERED: ACETAMINOPHEN TAB 325 MG TAB PO PRN (13:09)
[2024-01-23] MEDS ORDERED: IBUPROFEN 400 MG TAB PO PRN (13:09)
[2024-01-23] MEDS ORDERED: KETOROLAC 15 MG/ML 1 ML VIAL IVP PRN (13:09)
[2024-01-23] MEDS ORDERED: NALOXONE 0.4 MG/ML 1 ML VIAL IV PRN (13:09)
[2024-01-23] MEDS: FUROSEMIDE 10 MG/ML 2 ML VIAL IV SCH (13:59)
--- NOTE | 2024-01-23 15:38 | P.CNPUL ---
History of Present Illness Consult date: 01/23/24 Requesting physician: Lisseth Isaac Reason for consult: dyspnea Chief complaint: Shortness of breath, dizziness, fall History of present illness: This is a 74-year-old female patient with a known history of chronic obstructive pulmonary disease, former smoker, vapor, anal cancer with chemo and radiation in 2016, hypothyroidism, hyperlipidemia, diabetes mellitus, peripheral vascular disease status post right transmetatarsal amputation. She also has a known history of lung mass being followed in the outpatient setting. Due for a follow-up PET scan January 27, 2024. She also has extensive interstitial opacities and interstitial lung disease and diastolic congestive heart failure. She follows with Dr. Irving and Dr. Richter. She presented here to the emergency room earlier today with complaints of shortness of breath, dizziness and a fall to her knee. No loss of consciousness. Of the left knee revealed no evidence of fracture. Chest x-ray reveals findings of pulmonary edema. Possible atypical pneumonia. Fullness of the right hilum. Underlying mass not excluded. White count 14.5. Hemoglobin 11.1. Platelets 471. Sodium 135. Potassium 3.6. Bicarb 23. BUN 17. Creatinine 0.71. Glucose 204. AST 60. ALT 33. proBNP 2010. Urinalysis with high WBCs and large leukocyte esterase. Influenza screen negative. She is seen today in consultation in the emergency department. She is currently resting on a stretcher. Awake and alert in no acute distress. She is maintaining O2 saturations in the 90s on 3 L/min per nasal cannula. Afebrile. Hemodynamically stable. She has been initiated on ceftriaxone and azithromycin. On IV diuretics. Review of Systems REVIEW OF SYSTEMS: CONSTITUTIONAL: Positive for weakness, fall. Denies any recent significant weight loss or weight gain. EYES: Denies change in vision. EARS, NOSE, MOUTH, THROAT: Denies headaches, denies sore throat. CARDIOVASCULAR: Denies chest pain, palpitations or syncopal episodes. RESPIRATORY: Positive for shortness of breath, cough, congestion no hemoptysis. GASTROINTESTINAL: Denies change in appetite, denies abdominal pain GENITOURINARY: Denies hematuria, denies infections. MUSKULOSKELETAL: Positive for left knee pain. INTEGUMENTARY: Denies rash, denies eczema. NEUROLOGICAL: Denies recent memory loss, no recent seizure activity. PSYCHIATRIC: Denies anxiety, denies depression. HEMATOLOGIC/LYMPHATIC: Denies anemia, denies enlarged lymph nodes. 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 ,States yeast infection in genital area and folds of abd., diet controlled diabetes., has stimulator left hip for back pain (not working)., PAD. Recent diagosis of lung cancer History of Any Multi-Drug Resistant Organisms: None Reported Past Surgical History: Appendectomy, Back Surgery, Bladder Surgery, Cholecystectomy, Hysterectomy, Joint Replacement Additional Past Surgical History / Comment(s): Bilateral knee replacements, right shoulder rotator cuff X2, bilateral iliac femoral stents, bladder suspension X2, right Mediport removed, left lung biopsy, lymph node biopsy, left groin biopsy(malignant). bilateral carpal tunnel, bilateral cataracts, right shoulder replacement. stimulator in hip (left) for back, bilateral iliac arterial stents., R femoral stent Past Anesthesia/Blood Transfusion Reactions: No Reported Reaction, Family History of Problems w/ Anesthesia Additional Past Anesthesia/Blood Transfusion Reaction / Comment(s): Claustrophobic., vomited and aspirated during colonoscopy. son had difficulty waking up after surgery Past Psychological History: Anxiety, Depression Smoking Status: Former smoker, Vaper Past Alcohol Use History: None Reported Past Drug Use History: None Reported - Past Family History Sister(s) Family Medical History: Cancer Additional Family Medical History / Comment(s): Lung cancer. other sister heart failure Brother(s) Family Medical History: Cancer Additional Family Medical History / Comment(s): Lung cancer. Mother Family Medical History: Cancer Additional Family Medical History / Comment(s): Drugs and alcohol - of. Ear lobe cancer. Father Family Medical History: Cancer, Hyperlipidemia, Hypertension Additional Family Medical History / Comment(s): Skin cancer. Medications and Allergies Home Medications Medication Instructions Recorded Confirmed Type Clopidogrel [Plavix] 75 mg PO DAILY 08/15/16 01/23/24 History Levothyroxine Sodium [Synthroid] 25 mcg PO DAILY 08/15/16 01/23/24 History FLUoxetine HCL [PROzac] 40 mg PO DAILY 07/25/20 01/23/24 History Gabapentin [Neurontin] 300 mg PO BID 08/03/22 01/23/24 History Atorvastatin [Lipitor] 80 mg PO HS 04/04/23 01/23/24 History Gabapentin 600 mg PO BID 04/04/23 01/23/24 History carBAMazepine [carBAMazepine ER] 100 mg PO BID 04/04/23 01/23/24 History levETIRAcetam [Keppra] 750 mg PO BID 07/19/23 01/23/24 History Furosemide [Lasix] 40 mg PO BID@0900,1300 08/08/23 01/23/24 History Albuterol Nebulized [Ventolin 2.5 mg INHALATION RT-TID PRN 09/10/23 01/23/24 H istory Nebulized] Ferrous Sulfate [Iron (65 MG 325 mg PO DAILY 09/10/23 01/23/24 History Elemental)] traZODone HCL [Desyrel] 100 mg PO HS 09/10/23 01/23/24 History ALPRAZolam [Xanax] 0.25 mg PO DAILY PRN 01/23/24 01/23/24 History Albuterol Inhaler [Ventolin Hfa 2 puff INHALATION RT-Q6H PRN 01/23/24 01/23/24 History Inhaler] Doxycycline Hyclate 100 mg PO BID 01/23/24 01/23/24 History HYDROcodone/APAP 7.5-325MG [[place] 1 tab PO BID PRN 01/23/24 01/23/24 History 7.5-325] Pantoprazole [Protonix] 40 mg PO DAILY 01/23/24 01/23/24 History predniSONE See Taper PO DIRECTED 01/23/24 01/23/24 History Allergies Allergy/AdvReac Type Severity Reaction Status Date / Time erythromycin base Allergy Rash/Hives Verified 01/23/24 13:27 Fish Containing Products Allergy Anaphylaxis Verified 01/23/24 13:27 Penicillins Allergy Anaphylaxis Verified 01/23/24 13:27 shellfish derived [Shellfish] Allergy Anaphylaxis Verified 01/23/24 13:27 levofloxacin [From Levaquin] AdvReac Rash/Hives, Verified 01/23/24 13:27 swelling Physical Exam Vitals: Vital Signs Temp Pulse Resp BP Pulse Ox 01/23/24 14:00 75 20 115/55 90 L 01/23/24 13:08 75 22 99/45 89 L 01/23/24 12:51 83 22 119/78 90 L 01/23/24 11:56 76 01/23/24 11:48 75 01/23/24 11:47 98.4 F 75 20 108/55 91 L 01/23/24 11:16 65 20 107/53 91 L 01/23/24 10:58 99.0 F 82 22 87/59 93 L Intake and Output 01/23/24 01/23/24 01/23/24 06:59 14:59 22:59 Other: Weight 81.647 kg GENERAL EXAM: Alert, obese 74-year-old female, on 3 nasal cannula, fairly comfortable in no apparent distress. HEAD: Normocephalic. EYES: Normal reaction of pupils, equal size. NOSE: Clear with pink turbinates. THROAT: No erythema or exudates. NECK: No masses, no JVD. CHEST: No chest wall deformity. LUNGS: Equal air entry with scattered rhonchi. CVS: S1 and S2 normal with no audible murmur, regular rhythm. ABDOMEN: No hepatosplenomegaly, normal bowel sounds, no guarding or rigidity. SPINE: No scoliosis or deformity SKIN: No rashes CENTRAL NERVOUS SYSTEM: No focal deficits, tone is normal in all 4 extremities. EXTREMITIES: Transmetatarsal amputation on the right foot. There is no peripheral edema. No clubbing, no cyanosis. Peripheral pulses are intact. Results - Laboratory Findings CBC and BMP: 01/23/24 11:25 01/23/24 11:25 PT/INR, D-dimer PT 11.3 sec (10.0-12.5) 01/23/24 11:25 INR 1.0 (<1.2) 01/23/24 11:25 Abnormal lab findings: Abnormal Labs 01/23/24 01/23/24 01/23/24 11:25 11:25 12:51 WBC 14.5 H RBC 3.74 L Hgb 11.1 L Plt Count 471 H Neutrophils # 11.7 H Sodium 135 L Glucose 204 H AST 60 H Total Protein 6.1 L Albumin 3.4 L Urine Appearance Cloudy H Urine Protein 1+ H Urine Blood Large H Ur Leukocyte Esterase Large H Urine RBC 117 H Urine WBC 38 H Ur Squamous Epith Cells 6 H Amorphous Sediment Rare H Urine Mucus Rare H - Diagnostic Findings Chest x-ray: image reviewed Assessment and Plan Assessment: Generalized weakness and fall with injury to left knee, no fracture on x-ray Suspected urinary tract infection 3 cm masslike consolidative density in the right lower lobe being followed in the outpatient setting. A PET scan from August 19, 2023 revealed right lower lobe pulmonary nodule with increased metabolic activity compatible with malignancy. There is at least 1 right pulmonary hilum lymph node suspicious for metastatic disease. Extensive interstitial opacities along suspicious for ILD versus CHF. She was given a trial of steroids for 4 weeks and was due for a follow-up CT scan of the chest on October 11, 2023. CT scan of the chest was done yesterday 10/08/2023 that revealed similar pleural-based mass of the right lower lobe which is essentially unchanged in overall size and appearance. Possible minimal early cavitation. Pulmonary fibrosis at least moderate in degree. Plan is for follow- up PET scan on 01/27/2024 History of of diastolic congestive heart failure and valvular heart disease, most recent echocardiogram estimated a preserved left ventricular ejection f raction of 60 to 65%, with mild to moderate tricuspid regurgitation, mild mitral stenosis, mild aortic regurgitation. Chronic hypoxemic respiratory failure, secondary to above History of smoking-related interstitial fibrosis, biopsy-proven History of rectal cancer, status post chemo and radiation. Patient's most recent PET scan was from November, which did not show any new areas of abnormal hypermetabolic uptake to suggest active neoplastic recurrence. History of peripheral vascular occlusive disease, status post right femoral tibial bypass. History of previous right toe amputations Chronic microcytic, hypochromic anemia History obstructive sleep apnea History of hyperlipidemia History of CVA/TIA History of hypothyroidism History of frequent urinary tract infections Former tobacco smoker, vaper Plan: Patient was seen and evaluated Chest x-ray, labs and medications reviewed Continue IV diuretics Continue antibiotics Continue bronchodilators as needed Titrate the FiO2 as tolerated We will continue to follow and make further recommendations based on her clinical status I have personally seen and examined the patient, performed the documentation and the assessment and plan as written. Number of minutes spent on the visit: 20.
[2024-01-23] MEDS: AZITHROMYCIN 500 MG in SODIUM CHLORIDE 0.9% 250 ML IVPB SCH (16:38)
[2024-01-23] MEDS: MORPHINE SULFATE 4 MG/ML SYRINGE IV PRN (16:45)
[2024-01-23] MEDS: ALBUTEROL NEBULIZED 2.5 MG/3 ML INHALATION PRN (19:45)
[2024-01-23] MEDS ORDERED: GABAPENTIN 300 MG CAP PO SCH (21:00)
[2024-01-23 21:18] LABS: Glucose,Whole Blood 164 mg/dL (70-110)
[2024-01-23] MEDS: carBAMazepine 100 MG TAB.ER.12H PO SCH (21:27)
[2024-01-23] MEDS: INSULIN ASPART (NovoLOG) 100 UNIT/ML VIAL SQ SCH (21:27)
[2024-01-23] MEDS: ATORVASTATIN 80 MG TAB PO SCH (21:27)
[2024-01-23] MEDS: traZODone HCL 100 MG TAB PO SCH (21:27)
[2024-01-23] MEDS: GABAPENTIN 300 MG CAP PO SCH ×3 (21:36→22:03)
[2024-01-24 02:49] LABS: HCT 37.8 % (34.0-46.0); HGB 11.7 gm/dL (11.4-16.0); Hypochromasia Slight; MCH 29.2 pg (25.0-35.0); MCHC 31.1 g/dL (31.0-37.0); Mean Platelet Volume 7.7; Platelet Count 415 k/uL (150-450); RBC 4.02 m/uL (3.80-5.40); RDW 14.5 % (11.5-15.5); WBC 9.2 k/uL (3.8-10.6)
[2024-01-24 02:59] LABS: ALT 32 U/L (4-34); AST 54 U/L (14-36); African American GFR (CKD) 87 (>60 ml/min/1.73 sqM); Albumin 3.2 g/dL (3.5-5.0); Alkaline Phosphatase 93 U/L (38-126); Anion Gap 7 mmol/L; Blood Urea Nitrogen 17 mg/dL (7-17); Calcium 8.5 mg/dL (8.4-10.2); Carbon Dioxide 27 mmol/L (22-30); Chloride 101 mmol/L (98-107); Glucose 119 mg/dL (74-99); Non-African American GFR(CKD) 76 (>60 ml/min/1.73 sqM); Potassium 3.3 mmol/L (3.5-5.1); Sodium 135 mmol/L (137-145); Total Bilirubin 0.7 mg/dL (0.2-1.3); Total Protein 5.7 g/dL (6.3-8.2)
[2024-01-24 03:55] LABS: Lymphocytes # (M) 2.39 k/uL (1.0-4.8); Monocytes # (M) 0.46 k/uL (0-1.0); Neutrophils # (M) 6.35 k/uL (1.3-7.7); Neutrophils % (M) 69 %; Nucleated Red Blood Cells 0 /100 WBC (0-0); Total Cells Counted 100
[2024-01-24 06:12] LABS: Glucose,Whole Blood 129 mg/dL (70-110)
[2024-01-24] MEDS: LEVOTHYROXINE 25 MCG TAB PO SCH (06:25)
[2024-01-24] MEDS: ALBUTEROL HFA INHALER INHALATION PRN (07:47)
[2024-01-24] MEDS ORDERED: ALPRAZolam 0.25 MG TAB PO PRN (09:34)
[2024-01-24] MEDS: FLUoxetine HCL 20 MG CAP PO SCH (09:49)
[2024-01-24] MEDS: FERROUS SULFATE 325 MG TAB PO SCH (09:49)
[2024-01-24] MEDS: PANTOPRAZOLE 40 MG TABLET PO SCH (09:49)
[2024-01-24] MEDS: DAPAGLIFLOZIN PROPANEDIOL 10 MG TABLET PO SCH (09:49)
[2024-01-24] MEDS ORDERED: Potassium Replacement Protocol 1 EACH MISC MISCELLANE PRN (11:02)
--- NOTE | 2024-01-24 11:18 | P.CRDCN ---
History of Present Illness History of present illness: HISTORY OF PRESENT ILLNESS: This is a 74-year-old female with a past medical history significant for peripheral vascular disease with previous lower extremity intervention, diabetes, hyperlipidemia, anxiety, valvular heart disease, congestive heart failure, chronic hypoxic respiratory failure on home oxygen, pulmonary fibrosis, CVA/TIA, and rectal cancer with previous chemo and radiation. Patient follows in the office with Dr. Genao but has not been in the office since December 2021. We have been asked to see the patient in consultation for congestive heart failure. Patient examined at the bedside. Patient states that she has been feeling short of breath for the past couple months. She states that last week she went to her primary care physician's office and was prescribed antibiotics. She states that her shortness of breath did not improve. She states she was at home and was getting progressively more weak. She states that she was trying to walk from 1 room into the bathroom and thought that she was going to fall so she ended up lowering herself to the ground. She denies having any syncopal episodes. She denies having any chest pain or pressure. Patient has a known lung mass. She states she is scheduled to undergo PET scan this week. She does report having a cough at home with blood-tinged sputum. DIAGNOSTICS: - EKG reveals sinus mechanism with no signs of acute ischemia - Chest xray finding suggestive for pulmonary edema. Atypical pneumonia could be considered. Fullness of right hilum. Underlying mass not excluded. - Laboratory data: WBC 9.2. Hemoglobin 11.7. Platelet count 415. Sodium 135. Potassium 3.3. BUN 17. Creatinine 0.77. Troponin negative x 1. proBNP 2009. - Current home cardiac medications include Lipitor 80 mg at night, Plavix 75 mg daily, Lasix 40 mg twice a day - Most recent echocardiogram obtained in July 2023 revealed ejection fraction 60 to 65%, mild mitral stenosis, trace to mild MR, mild aortic regurgitation, mild to moderate tricuspid regurgitation REVIEW OF SYSTEMS: At the time of my exam: CONSTITUTIONAL: Denies fever or chills. HEENT: Denies blurred vision, vision changes, or eye pain. Denies hemoptysis CARDIOVASCULAR: Denies chest pain. Denies orthopnea. Denies PND. Denies palpitations RESPIRATORY: Reports shortness of breath. GASTROINTESTINAL: Denies abdominal pain. Denies nausea or vomiting. HEMATOLOGIC: Denies bleeding disorders. GENITOURINARY: Denies any blood in urine. SKIN: Denies pruitis. Denies rash. PHYSICAL EXAM: VITAL SIGNS: Reviewed. GENERAL: Well-developed in no acute distress. HEENT: Head is normocephalic. Pupils are equal, round. Sclerae anicteric. Mucous membranes of the mouth are moist. Neck supple. No JVD or thyromegaly LUNGS: Respirations even and unlabored. Lungs diminished with a few fine crackles HEART: Regular rate and rhythm. S1 and S2 heard. + systolic murmur ABDOMEN: Soft. Nondistended. Nontender. EXTREMITIES: Normal range of motion. No clubbing or cyanosis. Peripheral pulses intact. No lower extremity edema NEUROLOGIC: Awake and alert. Oriented x 3. ASSESSMENT: Generalized weakness with mechanical fall Shortness of breath Known right lung mass, suspected malignancy, patient scheduled for PET scan on 01/27/2024 Acute on chronic heart failure with preserved EF Valvular heart disease Chronic hypoxic respiratory failure on home oxygen Pulmonary fibrosis History of CVA/TIA History of rectal cancer with previous chemo and radiation Peripheral vascular disease with previous lower extremity intervention Hyperlipidemia Diabetes Anxiety PLAN: Obtain 2D echo to assess cardiac structure and function Resume home cardiac medications Discontinue Plavix. Begin aspirin 81 mg daily Add Farxiga 10 mg daily Continue IV Lasix 20 mg twice a day Daily weights, accurate intake and output, and monitoring of kidney function Pulmonary following. Patient scheduled for PET scan on 01/27/2024 Further recommendations pending patient course Nurse practitioner note has been reviewed by physician. Signing provider agrees with the documented findings, assessment, and plan of care documented by PROSTHETIST as a scribe. 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 ,States yeast infection in genital area and folds of abd., diet controlled diabetes., has stimulator left hip for back pain (not working)., PAD. Recent diagosis of lung cancer History of Any Multi-Drug Resistant Organisms: None Reported Past Surgical History: Appendectomy, Back Surgery, Bladder Surgery, Cholecystectomy, Hysterectomy, Joint Replacement Additional Past Surgical History / Comment(s): Bilateral knee replacements, right shoulder rotator cuff X2, bilateral iliac femoral stents, bladder suspension X2, right Mediport removed, left lung biopsy, lymph node biopsy, left groin biopsy(malignant). bilateral carpal tunnel, bilateral cataracts, right s houlder replacement. stimulator in hip (left) for back, bilateral iliac arterial stents., R femoral stent Past Anesthesia/Blood Transfusion Reactions: No Reported Reaction, Family History of Problems w/ Anesthesia Additional Past Anesthesia/Blood Transfusion Reaction / Comment(s): Claustrophobic., vomited and aspirated during colonoscopy. son had difficulty waking up after surgery Past Psychological History: Anxiety, Depression Smoking Status: Former smoker Past Alcohol Use History: None Reported Additional Past Alcohol Use History / Comment(s): quit smoking 2 years, smoked 1 ppd for over 50 years. vapes occasionally. Past Drug Use History: None Reported - Past Family History Sister(s) Family Medical History: Cancer Additional Family Medical History / Comment(s): Lung cancer. other sister heart failure Brother(s) Family Medical History: Cancer Additional Family Medical History / Comment(s): Lung cancer. Mother Family Medical History: Cancer, Fibromyalgia Additional Family Medical History / Comment(s): Drugs and alcohol - of what patient calls "septicemia" Father Family Medical History: Cancer, Coronary Artery Disease (CAD), Hyperlipidemia, Hypertension Additional Family Medical History / Comment(s): Skin cancer. Medications and Allergies Home Medications Medication Instructions Recorded Confirmed Type Clopidogrel [Plavix] 75 mg PO DAILY 08/15/16 01/23/24 History Levothyroxine Sodium [Synthroid] 25 mcg PO DAILY 08/15/16 01/23/24 History FLUoxetine HCL [PROzac] 40 mg PO DAILY 07/25/20 01/23/24 History Gabapentin [Neurontin] 300 mg PO BID 08/03/22 01/23/24 History Atorvastatin [Lipitor] 80 mg PO HS 04/04/23 01/23/24 History Gabapentin 600 mg PO BID 04/04/23 01/23/24 History carBAMazepine [carBAMazepine ER] 100 mg PO BID 04/04/23 01/23/24 History levETIRAcetam [Keppra] 750 mg PO BID 07/19/23 01/23/24 History Furosemide [Lasix] 40 mg PO BID@0900,1300 08/08/23 01/23/24 History Albuterol Nebulized [Ventolin 2.5 mg INHALATION RT-TID PRN 09/10/23 01/23/24 History Nebulized] Ferrous Sulfate [Iron (65 MG 325 mg PO DAILY 09/10/23 01/23/24 History Elemental)] traZODone HCL [Desyrel] 100 mg PO HS 09/10/23 01/23/24 History ALPRAZolam [Xanax] 0.25 mg PO DAILY PRN 01/23/24 01/23/24 History Albuterol Inhaler [Ventolin Hfa 2 puff INHALATION RT-Q6H PRN 01/23/24 01/23/24 History Inhaler] Doxycycline Hyclate 100 mg PO BID 01/23/24 01/23/24 History HYDROcodone/APAP 7.5-325MG [[place] 1 tab PO BID PRN 01/23/24 01/23/24 History 7.5-325] Pantoprazole [Protonix] 40 mg PO DAILY 01/23/24 01/23/24 History predniSONE See Taper PO DIRECTED 01/23/24 01/23/24 History Allergies Allergy/AdvReac Type Severity Reaction Status Date / Time erythromycin base Allergy Rash/Hives Verified 01/23/24 13:27 Fish Containing Products Allergy Anaphylaxis Verified 01/23/24 13:27 Penicillins Allergy Anaphylaxis Verified 01/23/24 13:27 shellfish derived [Shellfish] Allergy Anaphylaxis Verified 01/23/24 13:27 levofloxacin [From Levaquin] AdvReac Rash/Hives, Verified 01/23/24 13:27 swelling Physical Exam Vitals: Vital Signs Temp Pulse Pulse Resp BP BP Pulse Ox 01/24/24 08:00 98.0 F 77 17 147/56 90 L 01/24/24 02:13 98 F 69 18 113/68 92 L 01/23/24 23:11 103/61 01/23/24 19:57 77 01/23/24 19:46 75 01/23/24 19:22 97.9 F 75 20 98/48 94 L 01/23/24 18:24 75 20 117/53 92 L 01/23/24 16:42 98.4 F 73 20 135/53 97 01/23/24 14:00 75 20 115/55 90 L 01/23/24 13:08 75 22 99/45 89 L 01/23/24 12:51 83 22 119/78 90 L 01/23/24 11:56 76 01/23/24 11:48 75 01/23/24 11:47 98.4 F 75 20 108/55 91 L 01/23/24 11:16 65 20 107/53 91 L 01/23/24 10:58 99.0 F 82 22 87/59 93 L Intake and Output 01/23/24 01/24/24 01/24/24 22:59 06:59 14:59 Output Total 500 Balance -500 Output: Urine 500 Other: Voiding Method Diaper Incontinent External Catheter Weight 81.647 kg Results 01/24/24 01:10 01/24/24 01:10 Cardiac Enzymes 01/23/24 01/23/24 01/24/24 Range/Units 11:25 11:25 01:10 AST 60 H 54 H (14-36) U/L Troponin I <0.012 (0.000-0.034) ng/mL Coagulation 01/23/24 Range/Units 11:25 PT 11.3 (10.0-12.5) sec APTT 27.2 (22.0-30.0) sec CBC 01/23/24 01/24/24 Range/Units 11:25 01:10 WBC 14.5 H 9.2 (3.8-10.6) k/uL RBC 3.74 L 4.02 (3.80-5.40) m/uL Hgb 11.1 L 11.7 (11.4-16.0) gm/dL Hct 34.4 37.8 (34.0-46.0) % Plt Count 471 H 415 (150-450) k/uL Comprehensive Metabolic Panel 01/23/24 01/24/24 Range/Units 11:25 01:10 Sodium 135 L 135 L (137-145) mmol/L Potassium 3.6 3.3 L (3.5-5.1) mmol/L Chloride 100 101 (98-107) mmol/L Carbon Dioxide 23 27 (22-30) mmol/L BUN 17 17 (7-17) mg/dL Creatinine 0.71 0.77 (0.52-1.04) mg/dL Glucose 204 H 119 H (74-99) mg/dL Calcium 8.7 8.5 (8.4-10.2) mg/dL AST 60 H 54 H (14-36) U/L ALT 33 32 (4-34) U/L Alkaline Phosphatase 94 93 (38-126) U/L Total Protein 6.1 L 5.7 L (6.3-8.2) g/dL Albumin 3.4 L 3.2 L (3.5-5.0) g/dL Current Medications Generic Name Dose Route Start Last Admin Trade Name Freq PRN Reason Stop Dose Admin Acetaminophen 650 mg 01/23/24 13:09 Acetaminophen Tab 325 Mg Tab PO Q6HR PRN Mild Pain or Fever > 100.5 Albuterol Sulfate 2 puff 01/23/24 14:55 01/24/24 07:47 Albuterol Hfa Inhaler INHALATION 2 puff RT-Q6H PRN Administration Shortness Of Breath Albuterol Sulfate 2.5 mg 01/23/24 14:55 01/23/24 19:45 Albuterol Nebulized 2.5 Mg/3 Ml INHALATION 2.5 mg RT-TID PRN Administration Shortness Of Breath Alprazolam 0.25 mg 01/24/24 09:34 Alprazolam 0.25 Mg Tab PO DAILY PRN Anxiety Atorvastatin Calcium 80 mg 01/23/24 21:00 01/23/24 21:27 Atorvastatin 80 Mg Tab PO 80 mg HS RUTH Administration Carbamazepine 100 mg 01/23/24 21:00 01/24/24 09:50 Carbamazepine 100 Mg Tab.Er.12h PO 100 mg BID RUTH Administration Dapagliflozin 10 mg 01/24/24 09:30 01/24/24 09:49 Dapagliflozin Propanediol 10 Mg Tablet PO 10 mg DAILY RUTH Administration Ferrous Sulfate 325 mg 01/24/24 09:00 01/24/24 09:49 Ferrous Sulfate 325 Mg Tab PO 325 mg DAILY RUTH Administration Fluoxetine HCl 40 mg 01/24/24 09:00 01/24/24 09:49 Fluoxetine Hcl 20 Mg Cap PO 40 mg DAILY RUTH Administration Furosemide 20 mg 01/23/24 13:15 01/24/24 09:48 Furosemide 10 Mg/Ml 2 Ml Vial IV 20 mg BID RUTH Administration Gabapentin 900 mg 01/23/24 21:30 01/24/24 09:49 Gabapentin 300 Mg Cap PO 900 mg BID RUTH Administration Azithromycin 500 mg/ Sodium 250 mls @ 250 mls/hr 01/23/24 14:00 01/23/24 16:38 Chloride IVPB 01/25/24 09:59 250 mls/hr DAILY RUTH Administration Protocol Ceftriaxone Sodium 2 gm/ 50 mls @ 100 mls/hr 01/23/24 14:00 01/24/24 09:48 Sodium Chloride IVPB 100 mls/hr DAILY RUTH Administration Protocol Insulin Aspart 0 unit 01/23/24 21:00 01/24/24 06:34 Insulin Aspart (Novolog) 100 Unit/Ml Vial SQ Not Given ACHS [facility] Protocol Levetiracetam 750 mg 01/23/24 21:00 01/24/24 09:50 Levetiracetam 750 Mg Tab PO 750 mg BID RUTH Administration Levothyroxine Sodium 25 mcg 01/24/24 06:30 01/24/24 06:25 Levothyroxine 25 Mcg Tab PO 25 mcg DAILY@0630 RUTH Administration Morphine Sulfate 4 mg 01/23/24 13:09 01/23/24 21:37 Morphine Sulfate 4 Mg/Ml Syringe IV 4 mg Q4HR PRN Administration Severe Pain (Scale 7 to 10) Naloxone HCl 0.2 mg 01/23/24 13:09 Naloxone 0.4 Mg/Ml 1 Ml Vial IV Q2M PRN Opioid Reversal Pantoprazole Sodium 40 mg 01/24/24 07:30 01/24/24 09:49 Pantoprazole 40 Mg Tablet PO 40 mg DAILY@0730 RUTH Administration Trazodone HCl 100 mg 01/23/24 21:00 01/23/24 21:27 Trazodone Hcl 100 Mg Tab PO 100 mg HS RUTH Administration Intake and Output 01/23/24 01/24/24 01/24/24 22:59 06:59 14:59 Output Total 500 Balance -500 Output: Urine 500 Other: Voiding Method Diaper Incontinent External Catheter Weight 81.647 kg 01/24/24 01:10 01/24/24 01:10
[2024-01-24 11:33] VITALS: BMI 31.8
[2024-01-24] MEDS: CLOPIDOGREL 75 MG TAB PO SCH (11:38)
[2024-01-24 12:02] LABS: Glucose,Whole Blood 135 mg/dL (70-110)
--- NOTE | 2024-01-24 12:18 | P.PN ---
Subjective Progress Note Date: 01/24/24 This is a 74-year-old female patient with a known history of chronic obstructive pulmonary disease, former smoker, vapor, anal cancer with chemo and radiation in 2016, hypothyroidism, hyperlipidemia, diabetes mellitus, peripheral vascular disease status post right transmetatarsal amputation. She also has a known history of lung mass being followed in the outpatient setting. Due for a follow-up PET scan January 27, 2024. She also has extensive interstitial opacities and interstitial lung disease and diastolic congestive heart failure. She follows with Dr. Irving and Dr. Richter. She presented here to the emergency room earlier today with complaints of shortness of breath, dizziness and a fall to her knee. No loss of consciousness. Of the left knee revealed no evidence of fracture. Chest x-ray reveals findings of pulmonary edema. Possible atypical pneumonia. Fullness of the right hilum. Underlying mass not excluded. White count 14.5. Hemoglobin 11.1. Platelets 471. Sodium 135. Potassium 3.6. Bicarb 23. BUN 17. Creatinine 0.71. Glucose 204. AST 60. ALT 33. proBNP 2010. Urinalysis with high WBCs and large leukocyte esterase. Influenza screen negative. She is seen today in consultation in the emergency department. She is currently resting on a stretcher. Awake and alert in no acute distress. She is maintaining O2 saturations in the 90s on 3 L/min per nasal cannula. Afebrile. Hemodynamically stable. She has been initiated on ceftriaxone and azithromycin. On IV diuretics. The patient is seen today January 24, 2024 in follow-up on the observation unit. She is currently resting in bed. Awake and alert in no acute distress. She is maintaining O2 saturations in the 90s on 4 L/min per nasal cannula. She is feeling a bit better today compared to yesterday. Not quite back to her baseline. White count 9.2. Hemoglobin 11.7. Platelets 415. Sodium 135. Potassium 3.3. Bicarb 27. BUN 17. Creatinine 0.77. Glucose 04/30/2018. Procalcitonin 0.38. Currently on ceftriaxone and azithromycin. She remains on IV diuretics. Remains on bronchodilators. Objective - Vital Signs Vital signs: Vital Signs Temp 98.0 F 01/24/24 08:00 Pulse 77 01/24/24 08:00 Resp 17 01/24/24 08:00 BP 147/56 01/24/24 08:00 Pulse Ox 90 L 01/24/24 08:00 FiO2 Intake & Output 01/23/24 01/24/24 01/24/24 18:59 06:59 18:59 Output Total 500 Balance -500 Weight 81.647 kg 81.647 kg 81.647 kg Output: Urine 500 Other: Voiding Method Diaper Diaper Incontinent Incontinent External Catheter External Catheter - Exam GENERAL EXAM: Alert, obese 74-year-old female, on 4 nasal cannula, comfortable in no apparent distress. HEAD: Normocephalic. EYES: Normal reaction of pupils, equal size. NOSE: Clear with pink turbinates. THROAT: No erythema or exudates. NECK: No masses, no JVD. CHEST: No chest wall deformity. LUNGS: Equal air entry with scattered rhonchi. CVS: S1 and S2 normal with no audible murmur, regular rhythm. ABDOMEN: No hepatosplenomegaly, normal bowel sounds, no guarding or rigidity. SPINE: No scoliosis or deformity SKIN: No rashes CENTRAL NERVOUS SYSTEM: No focal deficits, tone is normal in all 4 extremities. EXTREMITIES: Transmetatarsal amputation on the right foot. There is no peripheral edema. No clubbing, no cyanosis. Peripheral pulses are intact. - Labs CBC & Chem 7: 01/24/24 01:10 01/24/24 01:10 Labs: Abnormal Lab Results - Last 24 Hours (Table) 01/23/24 01/23/24 01/24/24 Range/Units 12:51 21:17 01:10 Sodium 135 L (137-145) mmol/L Potassium 3.3 L (3.5-5.1) mmol/L Glucose 119 H (74-99) mg/dL POC Glucose (mg/dL) 164 H (70-110) mg/dL AST 54 H (14-36) U/L Total Protein 5.7 L (6.3-8.2) g/dL Albumin 3.2 L (3.5-5.0) g/dL Urine Appearance Cloudy H (Clear) Urine Protein 1+ H (Negative) Urine Blood Large H (Negative) Ur Leukocyte Esterase Large H (Negative) Urine RBC 117 H (0-5) /hpf Urine WBC 38 H (0-5) /hpf Ur Squamous Epith Cells 6 H (0-4) /hpf Amorphous Sediment Rare H (None) /hpf Urine Mucus Rare H (None) /hpf 01/24/24 01/24/24 Range/Units 06:11 12:01 Sodium (137-145) mmol/L Potassium (3.5-5.1) mmol/L Glucose (74-99) mg/dL POC Glucose (mg/dL) 129 H 135 H (70-110) mg/dL AST (14-36) U/L Total Protein (6.3-8.2) g/dL Albumin (3.5-5.0) g/dL Urine Appearance (Clear) Urine Protein (Negative) Urine Blood (Negative) Ur Leukocyte Esterase (Negative) Urine RBC (0-5) /hpf Urine WBC (0-5) /hpf Ur Squamous Epith Cells (0-4) /hpf Amorphous Sediment (None) /hpf Urine Mucus (None) /hpf Assessment and Plan Assessment: Generalized weakness and fall with injury to left knee, no fracture on x-ray 3 cm masslike consolidative density in the right lower lobe being followed in the outpatient setting. A PET scan from August 19, 2023 revealed right lower lobe pulmonary nodule with increased metabolic activity compatible with malignancy. There is at least 1 right pulmonary hilum lymph node suspicious for metastatic disease. Extensive interstitial opacities along suspicious for ILD versus CHF. She was given a trial of steroids for 4 weeks and was due for a follow-up CT scan of the chest on October 11, 2023. CT scan of the chest was done yesterday 10/08/2023 that revealed similar pleural-based mass of the right lower lobe which is essentially unchanged in overall size and appearance. Possible minimal early cavitation. Pulmonary fibrosis at least moderate in degree. Plan is for follow- up PET scan on 01/27/2024 History of of diastolic congestive heart failure and valvular heart disease, most recent echocardiogram estimated a preserved left ventricular ejection fraction of 60 to 65%, with mild to moderate tricuspid regurgitation, mild mitral stenosis, mild aortic regurgitation. Chronic hypoxemic respiratory failure, secondary to above History of smoking-related interstitial fibrosis, biopsy-proven History of rectal cancer, status post chemo and radiation. Patient's most recent PET scan was from November, which did not show any new areas of abnormal hypermetabolic uptake to suggest active neoplastic recurrence. History of peripheral vascular occlusive disease, status post right femoral tibial bypass. History of previous right toe amputations Chronic microcytic, hypochromic anemia History obstructive sleep apnea History of hyperlipidemia History of CVA/TIA History of hypothyroidism History of frequent urinary tract infections Former tobacco smoker, vaper Plan: Patient was seen and evaluated Labs and medications reviewed Continue IV diuretics Procalcitonin negative Discontinue antibiotics Continue bronchodilators as needed Titrate the FiO2 as tolerated Follow-up chest x-ray in a.m. We will continue to follow I have personally seen and examined the patient, performed the documentation and the assessment and plan as written. Number of minutes spent on the visit: 10.
[2024-01-24] MEDS: POTASSIUM CHLORIDE ER 20 MEQ TAB.ER PO SCH (12:42)
[2024-01-24] MEDS: ASPIRIN 81 MG PO SCH (12:42)
[2024-01-24 16:38] LABS: Glucose,Whole Blood 131 mg/dL (70-110)
--- NOTE | 2024-01-24 18:33 | P.HPIM ---
History of Present Illness H&P Date: 01/24/24 Alexia Rubin, is a 74-year-old female who presented to [facility] emergency room with a chief complaint of worsening shortness of breath She was evaluated in the emergency room vital examination on presentation revealed a temperature of 99 pulse 82 respiration 22 blood pressure 87/59 pulse ox 93% on 4 L nasal cannula Laboratory data reveals a white blood count of 14.5 hemoglobin 11.1 platelet count 471 BUN 17 creatinine 0.71 urine analysis revealed evidence of urinary tract infection Testing in the emergency room revealed EKG revealed normal sinus rhythm with nonspecific T wave abnormality, chest x-ray revealed evidence of pulmonary edema versus atypical pneumonia Patient was admitted to medical floor for further evaluation and treatment Past medical history is significant for history of chronic obstructive pulmonary disease, history of hypertension, history of hyperlipidemia, history of diabetes mellitus, history of hypothyroidism, history of anal cancer with previous history of chemotherapy, history of diastolic congestive heart failure history of peripheral vascular disease, and history of lung mass followed by pulmonary On review of systems patient is alert and oriented x 3 in no apparent distress she is complaining of cough with sputum production and occasional blood in the sputum she is also complaining of shortness of breath and generalized weakness otherwise she denies any complaints there is no chest pain no nausea or vomiting no abdominal pain no diarrhea no blood in the stools, she had frequency with urination and urgency no hematuria 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 ,States yeast infection in genital area and folds of abd., diet controlled diabetes., has stimulator left hip for back pain (not working)., PAD. Recent diagosis of lung cancer History of Any Multi-Drug Resistant Organisms: None Reported Past Surgical History: Appendectomy, Back Surgery, Bladder Surgery, Cholecystectomy, Hysterectomy, Joint Replacement Additional Past Surgical History / Comment(s): Bilateral knee replacements, ri ght shoulder rotator cuff X2, bilateral iliac femoral stents, bladder suspension X2, right Mediport removed, left lung biopsy, lymph node biopsy, left groin biopsy(malignant). bilateral carpal tunnel, bilateral cataracts, right shoulder replacement. stimulator in hip (left) for back, bilateral iliac arterial stents., R femoral stent Past Anesthesia/Blood Transfusion Reactions: No Reported Reaction, Family History of Problems w/ Anesthesia Additional Past Anesthesia/Blood Transfusion Reaction / Comment(s): Claustrophobic., vomited and aspirated during colonoscopy. son had difficulty waking up after surgery Past Psychological History: Anxiety, Depression Smoking Status: Former smoker Past Alcohol Use History: None Reported Additional Past Alcohol Use History / Comment(s): quit smoking 2 years, smoked 1 ppd for over 50 years. vapes occasionally. Past Drug Use History: None Reported - Past Family History Sister(s) Family Medical History: Cancer Additional Family Medical History / Comment(s): Lung cancer. other sister heart failure Brother(s) Family Medical History: Cancer Additional Family Medical History / Comment(s): Lung cancer. Mother Family Medical History: Cancer, Fibromyalgia Additional Family Medical History / Comment(s): Drugs and alcohol - of what patient calls "septicemia" Father Family Medical History: Cancer, Coronary Artery Disease (CAD), Hyperlipidemia, Hypertension Additional Family Medical History / Comment(s): Skin cancer. Medications and Allergies Home Medications Medication Instructions Recorded Confirmed Type Clopidogrel [Plavix] 75 mg PO DAILY 08/15/16 01/23/24 History Levothyroxine Sodium [Synthroid] 25 mcg PO DAILY 08/15/16 01/23/24 History FLUoxetine HCL [PROzac] 40 mg PO DAILY 07/25/20 01/23/24 History Gabapentin [Neurontin] 300 mg PO BID 08/03/22 01/23/24 History Atorvastatin [Lipitor] 80 mg PO HS 04/04/23 01/23/24 History Gabapentin 600 mg PO BID 04/04/23 01/23/24 History carBAMazepine [carBAMazepine ER] 100 mg PO BID 04/04/23 01/23/24 History levETIRAcetam [Keppra] 750 mg PO BID 07/19/23 01/23/24 History Furosemide [Lasix] 40 mg PO BID@0900,1300 08/08/23 01/23/24 History Albuterol Nebulized [Ventolin 2.5 mg INHALATION RT-TID PRN 09/10/23 01/23/24 History Nebulized] Ferrous Sulfate [Iron (65 MG 325 mg PO DAILY 09/10/23 01/23/24 History Elemental)] traZODone HCL [Desyrel] 100 mg PO HS 09/10/23 01/23/24 History ALPRAZolam [Xanax] 0.25 mg PO DAILY PRN 01/23/24 01/23/24 History Albuterol Inhaler [Ventolin Hfa 2 puff INHALATION RT-Q6H PRN 01/23/24 01/23/24 History Inhaler] Doxycycline Hyclate 100 mg PO BID 01/23/24 01/23/24 History HYDROcodone/APAP 7.5-325MG [[place] 1 tab PO BID PRN 01/23/24 01/23/24 History 7.5-325] Pantoprazole [Protonix] 40 mg PO DAILY 01/23/24 01/23/24 History predniSONE See Taper PO DIRECTED 01/23/24 01/23/24 History Allergies Allergy/AdvReac Type Severity Reaction Status Date / Time erythromycin base Allergy Rash/Hives Verified 01/23/24 13:27 Fish Containing Products Allergy Anaphylaxis Verified 01/23/24 13:27 Penicillins Allergy Anaphylaxis Verified 01/23/24 13:27 shellfish derived [Shellfish] Allergy Anaphylaxis Verified 01/23/24 13:27 levofloxacin [From Levaquin] AdvReac Rash/Hives, Verified 01/23/24 13:27 swelling Physical Exam Vitals: Vital Signs Temp Pulse Pulse Resp BP BP Pulse Ox 01/24/24 08:00 98.0 F 77 17 147/56 90 L 01/24/24 02:13 98 F 69 18 113/68 92 L 01/23/24 23:11 103/61 01/23/24 19:57 77 01/23/24 19:46 75 01/23/24 19:22 97.9 F 75 20 98/48 94 L 01/23/24 18:24 75 20 117/53 92 L 01/23/24 16:42 98.4 F 73 20 135/53 97 01/23/24 14:00 75 20 115/55 90 L 01/23/24 13:08 75 22 99/45 89 L 01/23/24 12:51 83 22 119/78 90 L 01/23/24 11:56 76 01/23/24 11:48 75 01/23/24 11:47 98.4 F 75 20 108/55 91 L 01/23/24 11:16 65 20 107/53 91 L 01/23/24 10:58 99.0 F 82 22 87/59 93 L Intake and Output 01/23/24 01/24/24 01/24/24 22:59 06:59 14:59 Output Total 500 Balance -500 Output: Urine 500 Other: Voiding Method Diaper Incontinent External Catheter Weight 81.647 kg In general patient is alert and oriented x 3 in no distress HEENT head normocephalic and atraumatic Neck is supple no JVD no goiter no lymphadenopathy no carotid bruit Chest examination revealed scattered crackles bilaterally no wheezing Cardiac exam reveals regular heart sounds S1 and S2 no gallops no murmurs Abdomen is soft nontender no organomegaly with normal bowel sounds Extremity exam reveals no edema no cyanosis or clubbing Neurological examination reveals no gross focal deficits Results CBC & Chem 7: 01/24/24 01:10 01/24/24 01:10 Labs: Abnormal Lab Results - Last 24 Hours (Table) 01/23/24 01/23/24 01/23/24 Range/Units 11:25 11:25 12:51 WBC 14.5 H (3.8-10.6) k/uL RBC 3.74 L (3.80-5.40) m/uL Hgb 11.1 L (11.4-16.0) gm/dL Plt Count 471 H (150-450) k/uL Neutrophils # 11.7 H (1.3-7.7) k/uL Sodium 135 L (137-145) mmol/L Potassium (3.5-5.1) mmol/L Glucose 204 H (74-99) mg/dL POC Glucose (mg/dL) (70-110) mg/dL AST 60 H (14-36) U/L Total Protein 6.1 L (6.3-8.2) g/dL Albumin 3.4 L (3.5-5.0) g/dL Urine Appearance Cloudy H (Clear) Urine Protein 1+ H (Negative) Urine Blood Large H (Negative) Ur Leukocyte Esterase Large H (Negative) Urine RBC 117 H (0-5) /hpf Urine WBC 38 H (0-5) /hpf Ur Squamous Epith Cells 6 H (0-4) /hpf Amorphous Sediment Rare H (None) /hpf Urine Mucus Rare H (None) /hpf 01/23/24 01/24/24 01/24/24 Range/Units 21:17 01:10 06:11 WBC (3.8-10.6) k/uL RBC (3.80-5.40) m/uL Hgb (11.4-16.0) gm/dL Plt Count (150-450) k/uL Neutrophils # (1.3-7.7) k/uL Sodium 135 L (137-145) mmol/L Potassium 3.3 L (3.5-5.1) mmol/L Glucose 119 H (74-99) mg/dL POC Glucose (mg/dL) 164 H 129 H (70-110) mg/dL AST 54 H (14-36) U/L Total Protein 5.7 L (6.3-8.2) g/dL Albumin 3.2 L (3.5-5.0) g/dL Urine Appearance (Clear) Urine Protein (Negative) Urine Blood (Negative) Ur Leukocyte Esterase (Negative) Urine RBC (0-5) /hpf Urine WBC (0-5) /hpf Ur Squamous Epith Cells (0-4) /hpf Amorphous Sediment (None) /hpf Urine Mucus (None) /hpf Thrombosis Risk Factor Assmnt - Choose All That Apply Each Factor Represents 1 point: Abnormal pulmonary function (COPD) Each Risk Factor Represents 3 Points: Age 75 years or older Thrombosis Risk Factor Assessment Total Risk Factor Score: 4 Thrombosis Risk Factor Assessment Level: Moderate Risk Assessment and Plan Plan: Shortness of breath, likely multifactorial related to congestive heart failure, COPD, underlying known history of lung mass Acute on chronic diastolic congestive heart failure exacerbation Underlying history of valvular heart disease Underlying history of COPD Underlying history of chronic hypoxic respiratory failure on home oxygen Previous history of rectal cancer received chemotherapy and radiation therapy Underlying history of peripheral vascular disease Underlying history of diabetes mellitus Underlying history of hyperlipidemia Underlying history of hypothyroidism Underlying history of anxiety disorder Underlying history of seizure disorder maintained on Keppra Underlying history of lung mass suspicious for lung cancer followed by pulmonary as outpatient At this time patient was seen and examined Home medications reviewed and reordered Cardiology and pulmonary consultation requested Patient was started on IV antibiotic in the emergency room For DVT prophylaxis subcu Anup Will follow closely
[2024-01-24] MEDS: ENOXAPARIN 40 MG/0.4 ML SYRINGE SQ SCH (18:52)
[2024-01-24 19:32] LABS: Glucose,Whole Blood 164 mg/dL (70-110)
[2024-01-25 01:36] LABS: Basophils % (A) 0 %; Eosinophils # (A) 0.4 k/uL (0-0.7); Eosinophils % (A) 5 %; HCT 31.4 % (34.0-46.0); HGB 10.2 gm/dL (11.4-16.0); Lymphocytes % (A) 22 %; MCH 29.7 pg (25.0-35.0); MCHC 32.5 g/dL (31.0-37.0); MCV 91.1 fL (80.0-100.0); Mean Platelet Volume 8.1; Monocytes # (A) 0.3 k/uL (0-1.0); Monocytes % (A) 3 %; Neutrophils # (A) 6.1 k/uL (1.3-7.7); Neutrophils % (A) 66 %; Platelet Count 430 k/uL (150-450); RBC 3.45 m/uL (3.80-5.40); RDW 14.8 % (11.5-15.5); WBC 9.1 k/uL (3.8-10.6)
[2024-01-25 02:20] LABS: ALT 35 U/L (4-34); AST 61 U/L (14-36); African American GFR (CKD) 80 (>60 ml/min/1.73 sqM); Albumin 3.1 g/dL (3.5-5.0); Alkaline Phosphatase 102 U/L (38-126); Anion Gap 7 mmol/L; Blood Urea Nitrogen 15 mg/dL (7-17); Calcium 8.4 mg/dL (8.4-10.2); Carbon Dioxide 26 mmol/L (22-30); Chloride 100 mmol/L (98-107); Glucose 125 mg/dL (74-99); Non-African American GFR(CKD) 70 (>60 ml/min/1.73 sqM); Potassium 3.2 mmol/L (3.5-5.1); Sodium 133 mmol/L (137-145); Total Bilirubin 0.7 mg/dL (0.2-1.3); Total Protein 5.5 g/dL (6.3-8.2)
[2024-01-25] MEDS: POTASSIUM CHLORIDE ER 20 MEQ TAB.ER PO SCH (04:16)
[2024-01-25 06:15] LABS: Glucose,Whole Blood 135 mg/dL (70-110)
--- NOTE | 2024-01-25 07:05 | P.CONS ---
History of Present Illness - Reason for Consult Consult date: 01/24/24 UTI, pneumonia - Chief Complaint Weakness shortness of breath x 1 day - History of Present Illness Patient is a 74-year-old female with a past medical history significant for diabetes mellitus CVA TIA COPD hyperlipidemia, history of anal cancer with chemoradiation 2015 presenting to the hospital for evaluation of increasing weakness and shortness of breath patient mention when she went to the bathroom she felt lightheaded fell forward onto her knee did not hit her head and no loss of consciousness patient was complaining of increasing shortness of breath but denies having any chest pain significant cough no sputum production patient denies having nausea no vomiting and no diarrhea patient did have some urinary frequency and burning and mild lower abdominal pain with the symptoms the patient has been evaluated on presentation to the hospital patient did have a low-grade fever of 99 F patient was not tachycardic hypotensive mildly hypoxic currently on 3 L nasal cannula oxygen patient did have elevated white count of 14.5 with a left shift creatinine has been normal AST was mildly elevated ALT normal she did have a cloudy urine with large leukocyte esterase 38 WBC urine cultures currently pending patient did have a chest x-ray finding suggestive of pulmonary edema atypical pneumonia could be considered. Right hindlimb underlying mass not excluded patient was started on Rocephin and Zithromax infectious he was consulted concerning for UTI and pneumonia Review of Systems Positive point and negatives has been mentioned in the HPI, complete review of systems was performed and all other systems are negative 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 ,States yeast infection in genital area and folds of abd., diet controlled diabetes., has stimulator left hip for back pain (not working)., PAD. Recent diagosis of lung cancer History of Any Multi-Drug Resistant Organisms: None Reported Past Surgical History: Appendectomy, Back Surgery, Bladder Surgery, Cholecystectomy, Hysterectomy, Joint Replacement Additional Past Surgical History / Comment(s): Bilateral knee replacements, right shoulder rotator cuff X2, bilateral iliac femoral stents, bladder suspension X2, right Mediport removed, left lung biopsy, lymph node biopsy, left groin biopsy(malignant). bilateral carpal tunnel, bilateral cataracts, right shoulder replacement. stimulator in hip (left) for back, bilateral iliac arterial stents., R femoral stent Past Anesthesia/Blood Transfusion Reactions: No Reported Reaction, Family History of Problems w/ Anesthesia Additional Past Anesthesia/Blood Transfusion Reaction / Comm: Claustrophobic., vomited and aspirated during colonoscopy. son had difficulty waking up after surgery Past Psychological History: Anxiety, Depression Smoking Status: Former smoker Past Alcohol Use History: None Reported Additional Past Alcohol Use History / Comment(s): quit smoking 2 years, smoked 1 ppd for over 50 years. vapes occasionally. Past Drug Use History: None Reported - Past Family History Sister(s) Family Medical History: Cancer Additional Family Medical History / Comment(s): Lung cancer. other sister heart failure Brother(s) Family Medical History: Cancer Additional Family Medical History / Comment(s): Lung cancer. Mother Family Medical History: Cancer, Fibromyalgia Additional Family Medical History / Comment(s): Drugs and alcohol - of what patient calls "septicemia" Father Family Medical History: Cancer, Coronary Artery Disease (CAD), Hyperlipidemia, Hypertension Additional Family Medical History / Comment(s): Skin cancer. Medications and Allergies Home Medications Medication Instructions Recorded Confirmed Type Clopidogrel [Plavix] 75 mg PO DAILY 08/15/16 01/23/24 History Levothyroxine Sodium [Synthroid] 25 mcg PO DAILY 08/15/16 01/23/24 History FLUoxetine HCL [PROzac] 40 mg PO DAILY 07/25/20 01/23/24 History Gabapentin [Neurontin] 300 mg PO BID 08/03/22 01/23/24 History Atorvastatin [Lipitor] 80 mg PO HS 04/04/23 01/23/24 History Gabapentin 600 mg PO BID 04/04/23 01/23/24 History carBAMazepine [carBAMazepine ER] 100 mg PO BID 04/04/23 01/23/24 History levETIRAcetam [Keppra] 750 mg PO BID 07/19/23 01/23/24 History Furosemide [Lasix] 40 mg PO BID@0900,1300 08/08/23 01/23/24 History Albuterol Nebulized [Ventolin 2.5 mg INHALATION RT-TID PRN 09/10/23 01/23/24 History Nebulized] Ferrous Sulfate [Iron (65 MG 325 mg PO DAILY 09/10/23 01/23/24 History Elemental)] traZODone HCL [Desyrel] 100 mg PO HS 09/10/23 01/23/24 History ALPRAZolam [Xanax] 0.25 mg PO DAILY PRN 01/23/24 01/23/24 History Albuterol Inhaler [Ventolin Hfa 2 puff INHALATION RT-Q6H PRN 01/23/24 01/23/24 History Inhaler] Doxycycline Hyclate 100 mg PO BID 01/23/24 01/23/24 History HYDROcodone/APAP 7.5-325MG [[place] 1 tab PO BID PRN 01/23/24 01/23/24 History 7.5-325] Pantoprazole [Protonix] 40 mg PO DAILY 01/23/24 01/23/24 History predniSONE See Taper PO DIRECTED 01/23/24 01/23/24 History Allergies Allergy/AdvReac Type Severity Reaction Status Date / Time erythromycin base Allergy Rash/Hives Verified 01/23/24 13:27 Fish Containing Products Allergy Anaphylaxis Verified 01/23/24 13:27 Penicillins Allergy Anaphylaxis Verified 01/23/24 13:27 shellfish derived [Shellfish] Allergy Anaphylaxis Verified 01/23/24 13:27 levofloxacin [From Levaquin] AdvReac Rash/Hives, Verified 01/23/24 13:27 swelling Physical Exam Vitals: Vital Signs Temp Pulse Pulse Resp BP BP Pulse Ox 01/24/24 08:00 98.0 F 77 17 147/56 90 L 01/24/24 02:13 98 F 69 18 113/68 92 L 01/23/24 23:11 103/61 01/23/24 19:57 77 01/23/24 19:46 75 01/23/24 19:22 97.9 F 75 20 98/48 94 L 01/23/24 18:24 75 20 117/53 92 L 01/23/24 16:42 98.4 F 73 20 135/53 97 01/23/24 14:00 75 20 115/55 90 L 01/23/24 13:08 75 22 99/45 89 L 01/23/24 12:51 83 22 119/78 90 L 01/23/24 11:56 76 01/23/24 11:48 75 01/23/24 11:47 98.4 F 75 20 108/55 91 L 01/23/24 11:16 65 20 107/53 91 L 01/23/24 10:58 99.0 F 82 22 87/59 93 L Intake and Output 01/23/24 01/24/24 01/24/24 22:59 06:59 14:59 Output Total 500 Balance -500 Output: Urine 500 Other: Voiding Method Diaper Incontinent External Catheter Weight 81.647 kg GENERAL DESCRIPTION: Elderly female lying in bed, no distress. No tachypnea or accessory muscle of respiration use. HEENT: Shows Pallor , no scleral icterus. Oral mucous membrane is dry. No pharyngeal erythema or thrush NECK: Trachea central, no thyromegaly. LUNGS: Unlabored breathing. Decreased breath sound at the base. No wheeze or crackle. HEART: S1, S2, regular rate and rhythm. No loud murmur ABDOMEN: Soft, no tenderness , guarding or rigidity, no organomegaly EXTREMITIES: No edema of feet. SKIN: No rash, no masses palpable. NEUROLOGICAL: The patient is awake, alert, oriented x3, mood and affect normal. Results CBC & Chem 7: 01/25/24 00:35 01/25/24 00:35 Labs: Abnormal Lab Results - Last 24 Hours (Table) 01/23/24 01/23/24 01/23/24 Range/Units 11:25 11:25 12:51 WBC 14.5 H (3.8-10.6) k/uL RBC 3.74 L (3.80-5.40) m/uL Hgb 11.1 L (11.4-16.0) gm/dL Plt Count 471 H (150-450) k/uL Neutrophils # 11.7 H (1.3-7.7) k/uL Sodium 135 L (137-145) mmol/L Potassium (3.5-5.1) mmol/L Glucose 204 H (74-99) mg/dL POC Glucose (mg/dL) (70-110) mg/dL AST 60 H (14-36) U/L Total Protein 6.1 L (6.3-8.2) g/dL Albumin 3.4 L (3.5-5.0) g/dL Urine Appearance Cloudy H (Clear) Urine Protein 1+ H (Negative) Urine Blood Large H (Negative) Ur Leukocyte Esterase Large H (Negative) Urine RBC 117 H (0-5) /hpf Urine WBC 38 H (0-5) /hpf Ur Squamous Epith Cells 6 H (0-4) /hpf Amorphous Sediment Rare H (None) /hpf Urine Mucus Rare H (None) /hpf 01/23/24 01/24/24 01/24/24 Range/Units 21:17 01:10 06:11 WBC (3.8-10.6) k/uL RBC (3.80-5.40) m/uL Hgb (11.4-16.0) gm/dL Plt Count (150-450) k/uL Neutrophils # (1.3-7.7) k/uL Sodium 135 L (137-145) mmol/L Potassium 3.3 L (3.5-5.1) mmol/L Glucose 119 H (74-99) mg/dL POC Glucose (mg/dL) 164 H 129 H (70-110) mg/dL AST 54 H (14-36) U/L Total Protein 5.7 L (6.3-8.2) g/dL Albumin 3.2 L (3.5-5.0) g/dL Urine Appearance (Clear) Urine Protein (Negative) Urine Blood (Negative) Ur Leukocyte Esterase (Negative) Urine RBC (0-5) /hpf Urine WBC (0-5) /hpf Ur Squamous Epith Cells (0-4) /hpf Amorphous Sediment (None) /hpf Urine Mucus (None) /hpf Assessment and Plan (1) Leukocytosis Current Visit: Yes Status: Acute Code(s): D72.829 - ELEVATED WHITE BLOOD CELL COUNT, UNSPECIFIED SNOMED Code(s): 470862850 (2) Allergy to multiple antibiotics Current Visit: Yes Status: Acute Code(s): Z88.1 - ALLERGY STATUS TO OTHER ANTIBIOTIC AGENTS SNOMED Code(s): 460196508 (3) Urinary tract infection Current Visit: Yes Status: Acute Code(s): N39.0 - URINARY TRACT INFECTION, SITE NOT SPECIFIED SNOMED Code(s): 49483886 Plan: 1patient presented to hospital with weakness and fall also complaining of increasing shortness of breath but no significant cough or sputum production clinic suspicious low for atypical pneumonia Zithromax has been discontinued. 2patient did have urinary symptoms of burning frequency and lower abdominal discomfort elevated white count admission with a positive UA UTI not entirely excluded. 3-patient with multiple antibiotic ALLERGIES that would limit the number of antibiotic safe to use 4we will start her back on Rocephin to cover for UTI possible cystitis. We will follow on clinical condition and cultures to further adjust medication if needed Thank you for this consultation we will follow the patient along with you Dictation was produced using [employer] dictation software. please excuse any grammatical, word or spelling errors. Time with Patient: Greater than 30
--- NOTE | 2024-01-25 09:14 | P.PN ---
Subjective Progress Note Date: 01/25/24 Alexia Rubin, is a 74-year-old female who presented to [facility] emergency room with a chief complaint of worsening shortness of breath She was evaluated in the emergency room vital examination on presentation revealed a temperature of 99 pulse 82 respiration 22 blood pressure 87/59 pulse ox 93% on 4 L nasal cannula Laboratory data reveals a white blood count of 14.5 hemoglobin 11.1 platelet count 471 BUN 17 creatinine 0.71 urine analysis revealed evidence of urinary tract infection Testing in the emergency room revealed EKG revealed normal sinus rhythm with nonspecific T wave abnormality, chest x-ray revealed evidence of pulmonary edema versus atypical pneumonia Patient was admitted to medical floor for further evaluation and treatment Past medical history is significant for history of chronic obstructive pulmonary disease, history of hypertension, history of hyperlipidemia, history of diabetes mellitus, history of hypothyroidism, history of anal cancer with previous hist ory of chemotherapy, history of diastolic congestive heart failure history of peripheral vascular disease, and history of lung mass followed by pulmonary On review of systems patient is alert and oriented x 3 in no apparent distress she is complaining of cough with sputum production and occasional blood in the sputum she is also complaining of shortness of breath and generalized weakness otherwise she denies any complaints there is no chest pain no nausea or vomiting no abdominal pain no diarrhea no blood in the stools, she had frequency with urination and urgency no hematuria On 01/25/2024 patient's alert and oriented x 3. Repeat chest x-ray has been ordered this a.m. per pulmonary. 2D echo ordered per cardiology. Patient reports minimum improvement. Remains on IV Lasix and IV Rocephin. Patient is hoping to be discharged home tomorrow so she can make it to her PET scan on . Current vital signs temp 98.3, heart rate 70, respiratory rate 17, blood pressure 106/55 with a pulse ox of 94% on room air Objective - Vital Signs Vital signs: Vital Signs Temp 98.3 F 01/25/24 07:43 Pulse 76 01/25/24 08:00 Resp 17 01/25/24 07:43 BP 106/55 01/25/24 07:43 Pulse Ox 94 L 01/25/24 07:43 FiO2 Intake & Output 01/24/24 01/25/24 01/25/24 18:59 06:59 18:59 Intake Total 120 236 Output Total 900 Balance -780 236 Weight 81.647 kg Intake: Oral 120 236 Output: Urine 900 Other: Voiding Method Diaper Diaper Incontinent Incontinent External Catheter External Catheter # Bowel Movements 0 - Exam In general patient is alert and oriented x 3 in no distress HEENT head normocephalic and atraumatic Neck is supple no JVD no goiter no lymphadenopathy no carotid bruit Chest examination revealed scattered crackles bilaterally no wheezing Cardiac exam reveals regular heart sounds S1 and S2 no gallops no murmurs Abdomen is soft nontender no organomegaly with normal bowel sounds Extremity exam reveals no edema no cyanosis or clubbing Neurological examination reveals no gross focal deficits - Labs CBC & Chem 7: 01/25/24 00:35 01/25/24 07:17 Labs: Abnormal Lab Results - Last 24 Hours (Table) 01/24/24 01/24/24 01/24/24 Range/Units 12:01 16:37 19:30 RBC (3.80-5.40) m/uL Hgb (11.4-16.0) gm/dL Hct (34.0-46.0) % Sodium (137-145) mmol/L Potassium (3.5-5.1) mmol/L Glucose (74-99) mg/dL POC Glucose (mg/dL) 135 H 131 H 164 H (70-110) mg/dL AST (14-36) U/L ALT (4-34) U/L Total Protein (6.3-8.2) g/dL Albumin (3.5-5.0) g/dL 01/25/24 01/25/24 01/25/24 Range/Units 00:35 00:35 06:13 RBC 3.45 L (3.80-5.40) m/uL Hgb 10.2 L (11.4-16.0) gm/dL Hct 31.4 L (34.0-46.0) % Sodium 133 L (137-145) mmol/L Potassium 3.2 L (3.5-5.1) mmol/L Glucose 125 H (74-99) mg/dL POC Glucose (mg/dL) 135 H (70-110) mg/dL AST 61 H (14-36) U/L ALT 35 H (4-34) U/L Total Protein 5.5 L (6.3-8.2) g/dL Albumin 3.1 L (3.5-5.0) g/dL Microbiology - Last 24 Hours (Table) 01/23/24 13:43 Blood Culture - Preliminary Blood 01/23/24 12:51 Urine Culture - Final Urine,Clean Catch Assessment and Plan Plan: Shortness of breath, likely multifactorial related to congestive heart failure, COPD, underlying known history of lung mass Acute on chronic diastolic congestive heart failure exacerbation Underlying history of valvular heart disease Underlying history of COPD Underlying history of chronic hypoxic respiratory failure on home oxygen Previous history of rectal cancer received chemotherapy and radiation therapy Underlying history of peripheral vascular disease Underlying history of diabetes mellitus Underlying history of hyperlipidemia Underlying history of hypothyroidism Underlying history of anxiety disorder Underlying history of seizure disorder maintained on Keppra Underlying history of lung mass suspicious for lung cancer followed by pulmonary as outpatient At this time patient was seen and examined Home medications reviewed and reordered Cardiology and pulmonary consultation requested Patient was started on IV antibiotic in the emergency room For DVT prophylaxis subcu Anup Will follow closely
--- NOTE | 2024-01-25 09:29 | XR ---
EXAMINATION TYPE: XR chest 1V portable DATE OF EXAM: 01/25/2024 HISTORY: Shortness of breath. COMPARISON: 01/23/2024 TECHNIQUE: Single view of the chest is submitted. FINDINGS: Demonstrated are scattered senescent parenchymal change. Pulmonary venous congestion with prominence of interstitium as well as pleural effusion. Findings may reflect congestive failure versus atypical pneumonia. Correlate clinically. The heart is stable. Hilar and mediastinal structures are within normal limits. Degenerative changes are seen of the dorsal spine. IMPRESSION: 1. Pulmonary venous congestion with prominence of interstitium as well as pleural effusion. Findings may reflect congestive failure versus atypical pneumonia. Correlate clinically. [facility], , 01/25/2024 9:27 AM
--- NOTE | 2024-01-25 10:11 | P.PN ---
Subjective HISTORY OF PRESENT ILLNESS: This is a 74-year-old female with a past medical history significant for peripheral vascular disease with previous lower extremity intervention, diabetes, hyperlipidemia, anxiety, valvular heart disease, congestive heart failure, chronic hypoxic respiratory failure on home oxygen, pulmonary fibrosis, CVA/TIA, and rectal cancer with previous chemo and radiation. Patient follows in the office with Dr. Genao but has not been in the office since December 2021. We have been asked to see the patient in consultation for congestive heart failure. Patient examined at the bedside. Patient states that she has been fee ling short of breath for the past couple months. She states that last week she went to her primary care physician's office and was prescribed antibiotics. She states that her shortness of breath did not improve. She states she was at home and was getting progressively more weak. She states that she was trying to walk from 1 room into the bathroom and thought that she was going to fall so she e nded up lowering herself to the ground. She denies having any syncopal episodes. She denies having any chest pain or pressure. Patient has a known lung mass. She states she is scheduled to undergo PET scan this week. She does report having a cough at home with blood-tinged sputum. DIAGNOSTICS: - EKG reveals sinus mechanism with no signs of acute ischemia - Chest xray finding suggestive for pulmonary edema. Atypical pneumonia could be considered. Fullness of right hilum. Underlying mass not excluded. - Laboratory data: WBC 9.2. Hemoglobin 11.7. Platelet count 415. Sodium 135. Potassium 3.3. BUN 17. Creatinine 0.77. Troponin negative x 1. proBNP 2009. - Current home cardiac medications include Lipitor 80 mg at night, Plavix 75 mg daily, Lasix 40 mg twice a day - Most recent echocardiogram obtained in July 2023 revealed ejection fraction 60 to 65%, mild mitral stenosis, trace to mild MR, mild aortic regurgitation, mild to moderate tricuspid regurgitation 01/25/2024 Patient examined this morning the bedside. Patient denies any chest pain or pressure. She continues to report shortness of breath. She remains on 3 L nasal cannula to maintain oxygen saturations greater than 92%. Blood pressure stable with a recent reading of 106/55. Chest x-ray this morning reveals pulmonary venous congestion with prominence of interstitium as well as pleural effusion. Findings may reflect congestive heart failure versus atypical pneumonia. Patient remains on IV diuretics. BUN today 15. Creatinine 0.83. Kidney function remains pending. PHYSICAL EXAM: VITAL SIGNS: Reviewed. GENERAL: Well-developed in no acute distress. HEENT: Head is normocephalic. Pupils are equal, round. Sclerae anicteric. Mucous membranes of the mouth are moist. Neck supple. No JVD or thyromegaly LUNGS: Respirations even and unlabored. Lungs diminished bilaterally HEART: Regular rate and rhythm. S1 and S2 heard. + systolic murmur ABDOMEN: Soft. Nondistended. Nontender. EXTREMITIES: Normal range of motion. No clubbing or cyanosis. Peripheral pulses intact. No lower extremity edema NEUROLOGIC: Awake and alert. Oriented x 3. ASSESSMENT: Generalized weakness with mechanical fall Shortness of breath Known right lung mass, suspected malignancy, patient scheduled for PET scan on 01/27/2024 Acute on chronic heart failure with preserved EF Valvular heart disease Chronic hypoxic respiratory failure on home oxygen Pulmonary fibrosis History of CVA/TIA History of rectal cancer with previous chemo and radiation Peripheral vascular disease with previous lower extremity intervention Hyperlipidemia Diabetes Anxiety PLAN: 2D echo ordered. Await results Plavix discontinued yesterday. Continue with aspirin 81 mg daily Continue IV Lasix 20 mg twice a day Daily weights, accurate intake and output, and monitoring of kidney function Pulmonary following. Patient scheduled for PET scan on 01/27/2024 Further recommendations pending patient course Nurse practitioner note has been reviewed by physician. Signing provider agrees with the documented findings, assessment, and plan of care documented by AUDIO VISUAL PROJECT MANAGER as a scribe. Objective - Vital Signs Vital signs: Vital Signs Temp 98.3 F 01/25/24 07:43 Pulse 76 01/25/24 08:00 Resp 18 01/25/24 08:00 BP 106/55 01/25/24 07:43 Pulse Ox 94 L 01/25/24 07:43 FiO2 Intake & Output 01/24/24 01/25/24 01/25/24 18:59 06:59 18:59 Intake Total 120 236 Output Total 900 Balance -780 236 Weight 81.647 kg Intake: Oral 120 236 Output: Urine 900 Other: Voiding Method Diaper Diaper Diaper Incontinent Incontinent Incontinent External Catheter External Catheter External Catheter # Bowel Movements 0 - Labs CBC & Chem 7: 01/25/24 00:35 01/25/24 07:17 Labs: Abnormal Lab Results - Last 24 Hours (Table) 01/24/24 01/24/24 01/24/24 Range/Units 12:01 16:37 19:30 RBC (3.80-5.40) m/uL Hgb (11.4-16.0) gm/dL Hct (34.0-46.0) % Sodium (137-145) mmol/L Potassium (3.5-5.1) mmol/L Glucose (74-99) mg/dL POC Glucose (mg/dL) 135 H 131 H 164 H (70-110) mg/dL AST (14-36) U/L ALT (4-34) U/L Total Protein (6.3-8.2) g/dL Albumin (3.5-5.0) g/dL 01/25/24 01/25/24 01/25/24 Range/Units 00:35 00:35 06:13 RBC 3.45 L (3.80-5.40) m/uL Hgb 10.2 L (11.4-16.0) gm/dL Hct 31.4 L (34.0-46.0) % Sodium 133 L (137-145) mmol/L Potassium 3.2 L (3.5-5.1) mmol/L Glucose 125 H (74-99) mg/dL POC Glucose (mg/dL) 135 H (70-110) mg/dL AST 61 H (14-36) U/L ALT 35 H (4-34) U/L Total Protein 5.5 L (6.3-8.2) g/dL Albumin 3.1 L (3.5-5.0) g/dL Microbiology - Last 24 Hours (Table) 01/23/24 13:43 Blood Culture - Preliminary Blood 01/23/24 12:51 Urine Culture - Final Urine,Clean Catch
[2024-01-25 11:02] LABS: Glucose,Whole Blood 128 mg/dL (70-110)
--- NOTE | 2024-01-25 11:48 | CA ---
Transthoracic Echo Report Name: Alexia Rubin Age: 74 Gender: F : 1950 Exam Date: 01/25/2024 07:58 Exam Location: [facility] Ht (in): 63 Wt (lb): 180 Ordering Physician: Onelia Donaldson Attending/Referring Phys: [id number], Mendoza Drapery Head Former Elma Jarrett RDCS Procedure CPT: Indications: lv function, murmur, chf Cardiac Hx: Technical Quality: Fair Contrast 1: Definity Total Dose (mL): 2 Contrast 2: Total Dose (mL): MEASUREMENTS (Male / Female) Normal Values 2D ECHO LV Diastolic Diameter PLAX 4.7 cm 4.2 - 5.9 / 3.9 - 5.3 cm LV Systolic Diameter PLAX 2.5 cm IVS Diastolic Thickness 0.8 cm 0.6 - 1.0 / 0.6 - 0.9 cm LVPW Diastolic Thickness 1.1 cm 0.6 - 1.0 / 0.6 - 0.9 cm LV Relative Wall Thickness 0.4 RV Internal Dim ED PLAX 1.7 cm LA Systolic Diameter LX 5.1 cm 3.0 - 4.0 / 2.7 - 3.8 cm LA Volume 110.2 cm??? 18 - 58 / 22 - 52 cm??? LA Volume Index 56.9 cm???/m??? 16 - 28 cm???/m??? M-MODE Aortic Root Diameter MM 2.8 cm LA Systolic Diameter MM 4.6 cm LA Ao Ratio MM 1.6 AV Cusp Separation MM 1.7 cm DOPPLER AV Peak Velocity 213.7 cm/s AV Peak Gradient 18.3 mmHg AV Mean Velocity 143.7 cm/s AV Mean Gradient 9.4 mmHg AV Velocity Time Integral 45.7 cm LVOT Peak Velocity 130.7 cm/s LVOT Peak Gradient 6.8 mmHg LVOT Velocity Time Integral 32.5 cm MV Peak Velocity 180.7 cm/s MV Peak Gradient 13.1 mmHg MV Mean Velocity 116.5 cm/s MV Mean Gradient 6.0 mmHg MV Velocity Time Integral 52.2 cm MV Area PHT 2.5 cm??? Mitral E Point Velocity 152.2 cm/s Mitral A Point Velocity 115.3 cm/s Mitral E to A Ratio 1.3 MV Deceleration Time 299.2 ms TR Peak Velocity 328.4 cm/s TR Peak Gradient 43.2 mmHg Right Atrial Pressure 5.0 mmHg Pulmonary Artery Systolic Pressu 48.2 mmHg FINDINGS Left Ventricle Left ventricular ejection fraction is estimated at 55-60 %. Normal left ventricular systolic function with no obvious regional wall motion abnormalities. Left ventricular cavity size normal. Right Ventricle Normal right ventricular size and function. Moderate pulmonary hypertension. Right Atrium Mild right atrial dilatation. Left Atrium Severely increased left atrial diameter. Severely increased left atrial volume. Mildly increased left atrial area. Mitral Valve Moderate mitral stenosis, Mean PG 6 mmHg. [id number] mitral regurgitation. Aortic Valve Mild aortic stenosis with a peak gradient of 18mmHg and a mean gradient of 9 mmHg. Mild aortic regurgitation. Tricuspid Valve Structurally normal tricuspid valve. Moderate tricuspid regurgitation. No tricuspid stenosis. Pulmonic Valve Structurally normal pulmonic valve. No pulmonic stenosis. Pericardium Minimal pericardial effusion (normal variant). Pleural effusion. Aorta Normal size aortic root and proximal ascending aorta. CONCLUSIONS 1. Normal left ventricle size and systolic function 2. Mild aortic stenosis and regurgitation 3. Mild to moderate mitral regurgitation with moderate mitral stenosis 4. Moderate tricuspid regurgitation and moderate pulmonary hypertension Previewed by: Dr. Reji Genao MD (Electronically Signed) Final Date: 25 January 2024 11:47
--- NOTE | 2024-01-25 12:07 | P.PN ---
Subjective Progress Note Date: 01/25/24 This is a 74-year-old female patient with a known history of chronic obstructive pulmonary disease, former smoker, vapor, anal cancer with chemo and radiation in 2016, hypothyroidism, hyperlipidemia, diabetes mellitus, peripheral vascular disease status post right transmetatarsal amputation. She also has a known history of lung mass being followed in the outpatient setting. Due for a follow-up PET scan January 27, 2024. She also has extensive interstitial opacities and interstitial lung disease and diastolic congestive heart failure. She follows with Dr. Irving and Dr. Richter. She presented here to the emergency room earlier today with complaints of shortness of breath, dizziness and a fall to her knee. No loss of consciousness. Of the left knee revealed no evidence of fracture. Chest x-ray reveals findings of pulmonary edema. Possible atypical pneumonia. Fullness of the right hilum. Underlying mass not excluded. White count 14.5. Hemoglobin 11.1. Platelets 471. Sodium 135. Potassium 3.6. Bicarb 23. BUN 17. Creatinine 0.71. Glucose 204. AST 60. ALT 33. proBNP 2010. Urinalysis with high WBCs and large leukocyte esterase. Influenza screen negative. She is seen today in consultation in the emergency department. She is currently resting on a stretcher. Awake and alert in no acute distress. She is maintaining O2 saturations in the 90s on 3 L/min per nasal cannula. Afebrile. Hemodynamically stable. She has been initiated on ceftriaxone and azithromycin. On IV diuretics. The patient is seen today January 24, 2024 in follow-up on the observation unit. She is currently resting in bed. Awake and alert in no acute distress. She is maintaining O2 saturations in the 90s on 4 L/min per nasal cannula. She is feeling a bit better today compared to yesterday. Not quite back to her baseline. White count 9.2. Hemoglobin 11.7. Platelets 415. Sodium 135. Potassium 3.3. Bicarb 27. BUN 17. Creatinine 0.77. Glucose 04/30/2018. Procalcitonin 0.38. Currently on ceftriaxone and azithromycin. She remains on IV diuretics. Remains on bronchodilators. The patient is seen today January 25, 2020 for follow-up in the observation unit. She is currently awake and alert in no acute distress. She is maintaining good O2 saturations in the 90s on 3 L nasal cannula. She is afebrile. Hemodynamically stable. Follow-up chest x-ray reveals pulmonary venous congestion with small effusions. Urine culture revealed no growth. Blood culture revealed no growth. White count 9.1. Hemoglobin 10.2. Bicarb 26. BUN 15. Creatinine 0.83. Glucose 125. Procalcitonin negative at 0.38. Currently on ceftriaxone per ID service. Continued on IV diuretics. Continued on bronchodilators. Currently in a negative balance. Objective - Vital Signs Vital signs: Vital Signs Temp 98.3 F 01/25/24 07:43 Pulse 76 01/25/24 08:00 Resp 18 01/25/24 08:00 BP 106/55 01/25/24 07:43 Pulse Ox 94 L 01/25/24 07:43 FiO2 Intake & Output 01/24/24 01/25/24 01/25/24 18:59 06:59 18:59 Intake Total 120 236 Output Total 900 700 Balance -780 -464 Weight 81.647 kg Intake: Oral 120 236 Output: Urine 900 700 Other: Voiding Method Diaper Diaper Diaper Incontinent Incontinent Incontinent External Catheter External Catheter External Catheter # Bowel Movements 0 - Exam GENERAL EXAM: Alert, 74-year-old female, on 3L of oxygen per nasal cannula, in no apparent distress. HEAD: Normocephalic. EYES: Normal reaction of pupils, equal size. NOSE: Clear with pink turbinates. THROAT: No erythema or exudates. NECK: No masses, no JVD. CHEST: No chest wall deformity. LUNGS: Equal air entry with scattered rhonchi. CVS: S1 and S2 normal with no audible murmur, regular rhythm. ABDOMEN: No hepatosplenomegaly, normal bowel sounds, no guarding or rigidity. SPINE: No scoliosis or deformity SKIN: No rashes CENTRAL NERVOUS SYSTEM: No focal deficits, tone is normal in all 4 extremities. EXTREMITIES: Transmetatarsal amputation on the right foot. There is no peripheral edema. No clubbing, no cyanosis. Peripheral pulses are intact. - Labs CBC & Chem 7: 01/25/24 00:35 01/25/24 07:17 Labs: Abnormal Lab Results - Last 24 Hours (Table) 01/24/24 01/24/24 01/24/24 Range/Units 12:01 16:37 19:30 RBC (3.80-5.40) m/uL Hgb (11.4-16.0) gm/dL Hct (34.0-46.0) % Sodium (137-145) mmol/L Potassium (3.5-5.1) mmol/L Glucose (74-99) mg/dL POC Glucose (mg/dL) 135 H 131 H 164 H (70-110) mg/dL AST (14-36) U/L ALT (4-34) U/L Total Protein (6.3-8.2) g/dL Albumin (3.5-5.0) g/dL 01/25/24 01/25/24 01/25/24 Range/Units 00:35 00:35 06:13 RBC 3.45 L (3.80-5.40) m/uL Hgb 10.2 L (11.4-16.0) gm/dL Hct 31.4 L (34.0-46.0) % Sodium 133 L (137-145) mmol/L Potassium 3.2 L (3.5-5.1) mmol/L Glucose 125 H (74-99) mg/dL POC Glucose (mg/dL) 135 H (70-110) mg/dL AST 61 H (14-36) U/L ALT 35 H (4-34) U/L Total Protein 5.5 L (6.3-8.2) g/dL Albumin 3.1 L (3.5-5.0) g/dL 01/25/24 Range/Units 11:00 RBC (3.80-5.40) m/uL Hgb (11.4-16.0) gm/dL Hct (34.0-46.0) % Sodium (137-145) mmol/L Potassium (3.5-5.1) mmol/L Glucose (74-99) mg/dL POC Glucose (mg/dL) 128 H (70-110) mg/dL AST (14-36) U/L ALT (4-34) U/L Total Protein (6.3-8.2) g/dL Albumin (3.5-5.0) g/dL Microbiology - Last 24 Hours (Table) 01/23/24 13:43 Blood Culture - Preliminary Blood 01/23/24 12:51 Urine Culture - Final Urine,Clean Catch Assessment and Plan Assessment: Generalized weakness and fall with injury to left knee, no fracture on x-ray 3 cm masslike consolidative density in the right lower lobe being followed in the outpatient setting. A PET scan from August 19, 2023 revealed right lower lobe pulmonary nodule with increased metabolic activity compatible with malignancy. There is at least 1 right pulmonary hilum lymph node suspicious for metastatic disease. Extensive interstitial opacities along suspicious for ILD versus CHF. She was given a trial of steroids for 4 weeks and was due for a follow-up CT scan of the chest on October 11, 2023. CT scan of the chest was done yesterday 10/08/2023 that revealed similar pleural-based mass of the right lower lobe which is essentially unchanged in overall size and appearance. Possible minimal early cavitation. Pulmonary fibrosis at least moderate in degree. Plan is for follow- up PET scan on 01/27/2024 History of of diastolic congestive heart failure and valvular heart disease, echocardiogram estimated a preserved left ventricular ejection fraction of 55 to 60%, with mild to moderate tricuspid regurgitation, mild mitral stenosis, mild aortic regurgitation. Chronic hypoxemic respiratory failure, secondary to above History of smoking-related interstitial fibrosis, biopsy-proven History of rectal cancer, status post chemo and radiation. Patient's most recent PET scan was from November, which did not show any new areas of abnormal hypermetabolic uptake to suggest active neoplastic recurrence. History of peripheral vascular occlusive disease, status post right femoral tibial bypass. History of previous right toe amputations Chronic microcytic, hypochromic anemia History obstructive sleep apnea History of hyperlipidemia History of CVA/TIA History of hypothyroidism History of frequent urinary tract infections Former tobacco smoker, vaper Plan: Patient was seen and evaluated Echocardiogram, chest x-ray, labs and medications reviewed Continue IV diuretics Antibiotics per ID service Titrate the FiO2 as tolerated We will continue to follow I have personally seen and examined the patient, performed the documentation and the assessment and plan as written. Number of minutes spent on the visit: 10.
[2024-01-25 15:45] LABS: % Iron Saturation 16.67 (12.00-45.00)
[2024-01-25 16:06] LABS: Glucose,Whole Blood 132 mg/dL (70-110)
[2024-01-25] MEDS ORDERED: ZINC OXIDE PASTE (Z-GUARD) 1 APPLIC TOPICAL PRN (16:10)
--- NOTE | 2024-01-25 18:55 | P.CONS ---
History of Present Illness - Reason for Consult Consult date: 01/25/24 lung mass Requesting physician: Lisseth Isaac - Chief Complaint SOB, weakness - History of Present Illness Patient is a 74 year old female with a significant history anal squamous cell carcinoma. She initially presented with progressive weakness, she was found to have multiple small lung lesions with borderline mediastinal lymphadenopathy. She was seen by Dr Irving, refered to Dr Dillon > had Throcoscopy with negative path results of lungs and mediastinal lymph nodes. PET Scan revealed increased SUV uptake (10) in L inguinal lymph node > CT-Guided Bx on 09/09/16 revealed metastatic Squamous cell CA. The patient had EGD by Dr Ayala > Negative. CT Scan of abdomen/Pelvis on 10/22/16 was negative for primary sites. History of CECILIO/BSO. Was seen by SLIP OPERATOR > negative pelvic exam and cervical Bx. Was found to have circumfrential lesion in Anal Canal > biopsy revealed Squamous cell Carcinoma. Patient was treated with chemo and RT. Was referred back to the clinic on 10/20/23 with complaints of SOB and new RLL nodule (Not seen on PET Scan of 2020), SUV 10 per new PET Scan. It was thought this was likely new lung primary rather than recurrent anal cancer. She was referred to rad onc, and was being followed by pulmonology. Pulm decided not to proceed with bronch/biopsy due to history of pulmonary fibrosis and location of mass, recommended repeat PET CT in [address] scheduled for 01/27/24 Patient presented to the emergency room with complaints of progressing shortness of breath and weakness. Patient was admitted for CHF exacerbation. Chest x-ray revealed findings suggestive for pulmonary edema. Atypical pneumonia possible. Fullness of the right hilum.. Patient was started on IV Rocephin for suspected pneumonia. As well as Lasix. BNP 2009. Urine culture and blood culture negative. CBC showing WBC 9.1, MCV 91.1, hemoglobin 10.2, platelets 430,000. Hemoglobin typically in the 11-12 range. Patient denies any episodes of acute bleeding. She is on oral iron daily for previous history of iron deficiency. Review of Systems 10 point ROS is negative except as stated in the HPI 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 ,States yeast infection in genital area and folds of abd., diet controlled diabetes., has stimulator left hip for back pain (not working)., PAD. Recent diagosis of lung cancer History of Any Multi-Drug Resistant Organisms: None Reported Past Surgical History: Appendectomy, Back Surgery, Bladder Surgery, Cholecystectomy, Hysterectomy, Joint Replacement Additional Past Surgical History / Comment(s): Bilateral knee replacements, right shoulder rotator cuff X2, bilateral iliac femoral stents, bladder suspension X2, right Mediport removed, left lung biopsy, lymph node biopsy, left groin biopsy(malignant). bilateral carpal tunnel, bilateral cataracts, right shoulder replacement. stimulator in hip (left) for back, bilateral iliac arterial stents., R femoral stent Past Anesthesia/Blood Transfusion Reactions: No Reported Reaction, Family History of Problems w/ Anesthesia Additional Past Anesthesia/Blood Transfusion Reaction / Comm: Claustrophobic., vomited and aspirated during colonoscopy. son had difficulty waking up after surgery Past Psychological History: Anxiety, Depression Smoking Status: Former smoker Past Alcohol Use History: None Reported Additional Past Alcohol Use History / Comment(s): quit smoking 2 years, smoked 1 ppd for over 50 years. vapes occasionally. Past Drug Use History: None Reported - Past Family History Sister(s) Family Medical History: Cancer Additional Family Medical History / Comment(s): Lung cancer. other sister heart failure Brother(s) Family Medical History: Cancer Additional Family Medical History / Comment(s): Lung cancer. Mother Family Medical History: Cancer, Fibromyalgia Additional Family Medical History / Comment(s): Drugs and alcohol - of what patient calls "septicemia" Father Family Medical History: Cancer, Coronary Artery Disease (CAD), Hyperlipidemia, Hypertension Additional Family Medical History / Comment(s): Skin cancer. Medications and Allergies Home Medications Medication Instructions Recorded Confirmed Type Clopidogrel [Plavix] 75 mg PO DAILY 08/15/16 01/23/24 History Levothyroxine Sodium [Synthroid] 25 mcg PO DAILY 08/15/16 01/23/24 History FLUoxetine HCL [PROzac] 40 mg PO DAILY 07/25/20 01/23/24 History Gabapentin [Neurontin] 300 mg PO BID 08/03/22 01/23/24 History Atorvastatin [Lipitor] 80 mg PO HS 04/04/23 01/23/24 History Gabapentin 600 mg PO BID 04/04/23 01/23/24 History carBAMazepine [carBAMazepine ER] 100 mg PO BID 04/04/23 01/23/24 History levETIRAcetam [Keppra] 750 mg PO BID 07/19/23 01/23/24 History Furosemide [Lasix] 40 mg PO BID@0900,1300 08/08/23 01/23/24 History Albuterol Nebulized [Ventolin 2.5 mg INHALATION RT-TID PRN 09/10/23 01/23/24 History Nebulized] Ferrous Sulfate [Iron (65 MG 325 mg PO DAILY 09/10/23 01/23/24 History Elemental)] traZODone HCL [Desyrel] 100 mg PO HS 09/10/23 01/23/24 History ALPRAZolam [Xanax] 0.25 mg PO DAILY PRN 01/23/24 01/23/24 History Albuterol Inhaler [Ventolin Hfa 2 puff INHALATION RT-Q6H PRN 01/23/24 01/23/24 History Inhaler] Doxycycline Hyclate 100 mg PO BID 01/23/24 01/23/24 History HYDROcodone/APAP 7.5-325MG [Hope 1 tab PO BID PRN 01/23/24 01/23/24 History 7.5-325] Pantoprazole [Protonix] 40 mg PO DAILY 01/23/24 01/23/24 History predniSONE See Taper PO DIRECTED 01/23/24 01/23/24 History Allergies Allergy/AdvReac Type Severity Reaction Status Date / Time erythromycin base Allergy Rash/Hives Verified 01/23/24 13:27 Fish Containing Products Allergy Anaphylaxis Verified 01/23/24 13:27 Penicillins Allergy Anaphylaxis Verified 01/23/24 13:27 shellfish derived [Shellfish] Allergy Anaphylaxis Verified 01/23/24 13:27 levofloxacin [From Levaquin] AdvReac Rash/Hives, Verified 01/23/24 13:27 swelling Physical Exam Vitals: Vital Signs Temp Pulse Pulse Resp BP Pulse Ox 01/25/24 08:00 76 18 01/25/24 07:47 72 01/25/24 07:43 98.3 F 70 17 106/55 94 L 01/25/24 02:00 98.3 F 72 16 112/69 94 L 01/24/24 20:00 88 01/24/24 19:51 97.9 F 76 14 118/67 94 L 01/24/24 19:45 86 01/24/24 14:44 90 18 01/24/24 14:31 88 16 01/24/24 14:00 98.0 F 80 17 124/67 93 L Intake and Output 01/24/24 01/25/24 01/25/24 22:59 06:59 14:59 Intake Total 120 236 Output Total 900 Balance -780 236 Intake: Oral 120 236 Output: Urine 900 Other: Voiding Method Diaper Diaper Incontinent Incontinent External Catheter External Catheter # Bowel Movements 0 - Constitutional General appearance: no acute distress, obese - EENT Eyes: anicteric sclerae, EOMI ENT: hearing grossly normal - Respiratory breathing is even and unlabored - Cardiovascular skin warm and dry - Integumentary Integumentary: no cyanotic, no jaundiced - Musculoskeletal Musculoskeletal: generalized weakness - Psychiatric Psychiatric: A&O x's 3 Results CBC & Chem 7: 01/25/24 00:35 01/25/24 07:17 Labs: Abnormal Lab Results - Last 24 Hours (Table) 01/24/24 01/24/24 01/24/24 Range/Units 12:01 16:37 19:30 RBC (3.80-5.40) m/uL Hgb (11.4-16.0) gm/dL Hct (34.0-46.0) % Sodium (137-145) mmol/L Potassium (3.5-5.1) mmol/L Glucose (74-99) mg/dL POC Glucose (mg/dL) 135 H 131 H 164 H (70-110) mg/dL AST (14-36) U/L ALT (4-34) U/L Total Protein (6.3-8.2) g/dL Albumin (3.5-5.0) g/dL 1001/25/24 01/25/24 Range/Units 00:35 00:35 06:13 RBC 3.45 L (3.80-5.40) m/uL Hgb 10.2 L (11.4-16.0) gm/dL Hct 31.4 L (34.0-46.0) % Sodium 133 L (137-145) mmol/L Potassium 3.2 L (3.5-5.1) mmol/L Glucose 125 H (74-99) mg/dL POC Glucose (mg/dL) 135 H (70-110) mg/dL AST 61 H (14-36) U/L ALT 35 H (4-34) U/L Total Protein 5.5 L (6.3-8.2) g/dL Albumin 3.1 L (3.5-5.0) g/dL Microbiology - Last 24 Hours (Table) 01/23/24 13:43 Blood Culture - Preliminary Blood 01/23/24 12:51 Urine Culture - Final Urine,Clean Catch Chest x-ray: report reviewed Assessment and Plan (1) Pneumonia Current Visit: Yes Status: Acute Priority: High Code(s): J18.9 - PNEUMONIA, UNSPECIFIED ORGANISM SNOMED Code(s): 621951668 (2) Pulmonary vascular congestion Current Visit: Yes Status: Acute Priority: High Code(s): R09.89 - OTH SYMPTOMS AND SIGNS INVOLVING THE CIRC AND RESP SYSTEMS SNOMED Code(s): 013236740 (3) Lung mass Current Visit: Yes Status: Acute Priority: Medium Code(s): R91.8 - OTHER NONSPECIFIC ABNORMAL FINDING OF LUNG FIELD SNOMED Code(s): 486936208 (4) Anemia Current Visit: Yes Status: Acute Priority: Medium Code(s): D64.9 - ANEMIA, UNSPECIFIED SNOMED Code(s): 540714373 Plan: CHF exacerbation/Pneumonia: Presented with SOB and weakness -Chest x-ray revealed findings suggestive for pulmonary edema. Atypical pneumonia possible. Fullness of the right hilum. BNP 2009. -Patient was started on IV Rocephin for suspected pneumonia, as well as IV Lasix -Defer management to pulm and IM teams Lung mass: -Oncology history as dictated in HPI -Was referred back to the clinic on 10/20/23 with complaints of SOB and new RLL nodule (Not seen on PET Scan of 2020), SUV 10 per new PET Scan. It was thought this was likely new lung primary rather than recurrent anal cancer. She was referred to rad onc, and was being followed by pulmonology. Pulm decided not to proceed with bronch/biopsy due to history of pulmonary fibrosis and location of mass, recommended repeat PET CT in [address] scheduled for 01/27/24 -If she is able to be discharged prior to PET CT will proceed with scan, if not will obtain CT chest while inpt -Will likely need bronch/biopsy, will f/u on scan results and discuss case with pulmonology Normocytic anemia: -CBC showing WBC 9.1, hemoglobin 10.2, MCV 91.1 platelets 430,000 with slight hypochromasia noted. Hemoglobin typically in the 11-12 range. Denies any episodes of acute bleeding. She is on oral iron daily for previous history of iron deficiency -Nutritional studies ordered -Continue to monitor CBC Had long discussion with patient and daughter today regarding POC. All questions and concerns were addressed attests: I have seen and examined patient, performed H&P, developed impression and plan of care. Discussed with dictator. Agree with documentation, dictated as a scribe
[2024-01-25 20:16] LABS: Glucose,Whole Blood 132 mg/dL (70-110)
[2024-01-26 05:49] LABS: Glucose,Whole Blood 133 mg/dL (70-110)
[2024-01-26] MEDS: FUROSEMIDE 40 MG TAB PO SCH (09:43)
--- NOTE | 2024-01-26 09:58 | P.PN ---
Subjective HISTORY OF PRESENT ILLNESS: This is a 74-year-old female with a past medical history significant for peripheral vascular disease with previous lower extremity intervention, diabetes, hyperlipidemia, anxiety, valvular heart disease, congestive heart failure, chronic hypoxic respiratory failure on home oxygen, pulmonary fibrosis, CVA/TIA, and rectal cancer with previous chemo and radiation. Patient follows in the office with Dr. Genao but has not been in the office since December 2021. We have been asked to see the patient in consultation for congestive heart failure. Patient examined at the bedside. Patient states that she has been fee ling short of breath for the past couple months. She states that last week she went to her primary care physician's office and was prescribed antibiotics. She states that her shortness of breath did not improve. She states she was at home and was getting progressively more weak. She states that she was trying to walk from 1 room into the bathroom and thought that she was going to fall so she e nded up lowering herself to the ground. She denies having any syncopal episodes. She denies having any chest pain or pressure. Patient has a known lung mass. She states she is scheduled to undergo PET scan this week. She does report having a cough at home with blood-tinged sputum. DIAGNOSTICS: - EKG reveals sinus mechanism with no signs of acute ischemia - Chest xray finding suggestive for pulmonary edema. Atypical pneumonia could be considered. Fullness of right hilum. Underlying mass not excluded. - Laboratory data: WBC 9.2. Hemoglobin 11.7. Platelet count 415. Sodium 135. Potassium 3.3. BUN 17. Creatinine 0.77. Troponin negative x 1. proBNP 2009. - Current home cardiac medications include Lipitor 80 mg at night, Plavix 75 mg daily, Lasix 40 mg twice a day - Most recent echocardiogram obtained in July 2023 revealed ejection fraction 60 to 65%, mild mitral stenosis, trace to mild MR, mild aortic regurgitation, mild to moderate tricuspid regurgitation 01/25/2024 Patient examined this morning the bedside. Patient denies any chest pain or pressure. She continues to report shortness of breath. She remains on 3 L nasal cannula to maintain oxygen saturations greater than 92%. Blood pressure stable with a recent reading of 106/55. Chest x-ray this morning reveals pulmonary venous congestion with prominence of interstitium as well as pleural effusion. Findings may reflect congestive heart failure versus atypical pneumonia. Patient remains on IV diuretics. BUN today 15. Creatinine 0.83. Kidney function remains pending. 01/26/2024 Patient examined this morning at bedside. Patient currently denies any chest pain or pressure. She reports her breathing feels stable this morning. She remains on nasal cannula. Patient also remains on IV diuretics. Kidney function is not yet available from this morning. Echocardiogram completed revealing ejection fraction 55 to 60%, no obvious regional wall motion normalities, moderate pulmonary hypertension, moderate mitral stenosis, mild to moderate mitral regurgitation, mild aortic stenosis, mild aortic regurgitation, moderate tricuspid regurgitation. PHYSICAL EXAM: VITAL SIGNS: Reviewed. GENERAL: Well-developed in no acute distress. HEENT: Head is normocephalic. Pupils are equal, round. Sclerae anicteric. Mucous membranes of the mouth are moist. Neck supple. No JVD or thyromegaly LUNGS: Respirations even and unlabored. Lungs diminished bilaterally HEART: Regular rate and rhythm. S1 and S2 heard. + systolic murmur ABDOMEN: Soft. Nondistended. Nontender. EXTREMITIES: Normal range of motion. No clubbing or cyanosis. Peripheral pulses intact. No lower extremity edema NEUROLOGIC: Awake and alert. Oriented x 3. ASSESSMENT: Generalized weakness with mechanical fall Shortness of breath Urinary tract infection Known right lung mass, suspected malignancy, patient scheduled for PET scan on 01/27/2024 Acute on chronic heart failure with preserved EF Valvular heart disease Chronic hypoxic respiratory failure on home oxygen Moderate pulmonary hypertension Pulmonary fibrosis History of CVA/TIA History of rectal cancer with previous chemo and radiation Peripheral vascular disease with previous lower extremity intervention Hyperlipidemia Diabetes Anxiety PLAN: Plavix discontinued. Continue with aspirin 81 mg daily Discontinue IV Lasix. Resume oral Lasix 40 mg twice a day Daily weights, accurate intake and output, and monitoring of kidney function Pulmonary following. Patient scheduled for PET scan on 01/27/2024 Patient is stable for discharge home today from a cardiac standpoint Further recommendations pending patient course Nurse practitioner note has been reviewed by physician. Signing provider agrees with the documented findings, assessment, and plan of care documented by SINGLE ENDING MACHINE OPERATOR as a scribe. Objective - Vital Signs Vital signs: Vital Signs Temp 98.2 F 01/26/24 06:55 Pulse 77 01/26/24 09:07 Resp 16 01/26/24 09:07 BP 111/69 01/26/24 06:55 Pulse Ox 96 01/26/24 08:59 FiO2 Intake & Output 01/25/24 01/26/24 01/26/24 18:59 06:59 18:59 Intake Total 354 Output Total 1100 650 Balance -746 -650 Intake: Oral 354 Output: Urine 1100 650 Other: Voiding Method Diaper Diaper Diaper Incontinent Incontinent Incontinent External Catheter External Catheter External Catheter # Bowel Movements 0 - Labs CBC & Chem 7: 01/25/24 00:35 01/25/24 07:17 Labs: Abnormal Lab Results - Last 24 Hours (Table) 01/25/24 01/25/24 01/25/24 Range/Units 11:00 11:19 16:05 POC Glucose (mg/dL) 128 H 132 H (70-110) mg/dL Iron 43 L (50-170) UG/DL Transferrin 184.0 L (204.0-354.0) mg/dL Ferritin 572.0 H (10.0-291.0) ng/mL 01/25/24 01/26/24 Range/Units 20:15 05:47 POC Glucose (mg/dL) 132 H 133 H (70-110) mg/dL Iron (50-170) UG/DL Transferrin (204.0-354.0) mg/dL Ferritin (10.0-291.0) ng/mL Microbiology - Last 24 Hours (Table) 01/23/24 13:43 Blood Culture - Preliminary Blood
[2024-01-26 10:50] LABS: HCT 31.8 % (37.2-46.3); HGB 10.2 g/dL (12.0-15.0); MCH 29.1 pg (27.0-32.0); MCHC 32.1 g/dL (32.0-37.0); MCV 90.6 FL (80.0-97.0); Mean Platelet Volume 10.3 FL (9.5-12.2); NRBC Per 100 WBC 0 X 10*3/uL (0.00-0.01); Platelet Count 426 X 10*3/uL (140-440); RBC 3.51 X 10*6/uL (4.10-5.20); RDW 14.7 % (11.5-14.5); WBC 9.71 X 10*3/uL (4.50-10.00)
[2024-01-26 10:51] LABS: Basophils # (A) 0.04 X 10*3/uL (0.00-0.10); Basophils % (A) 0.4 %; Eosinophils % (A) 6.2 %; Lymphocytes # (A) 2.49 X 10*3/uL (0.90-5.00); Lymphocytes % (A) 25.6 %; Monocytes # (A) 0.62 X 10*3/uL (0.20-1.00); Monocytes % (A) 6.4 %; Neutrophils # (A) 5.88 X 10*3/uL (1.80-7.70); Neutrophils % (A) 60.6 %
[2024-01-26 10:57] LABS: ALT 25 U/L (8-44); AST 38 U/L (13-35); Albumin 3.2 g/dL (3.8-4.9); Albumin/Globulin Ratio 1.33 Ratio (1.60-3.17); Alkaline Phosphatase 97 U/L (41-126); Blood Urea Nitrogen 13.5 mg/dL (9.0-27.0); Calcium 8.7 mg/dL (8.7-10.3); Carbon Dioxide 24.5 mmol/L (21.6-31.8); Chloride 96 mmol/L (96-109); Globulin 2.4 g/dL (1.6-3.3); Glucose 136 mg/dL (70-110); Potassium 3.8 mmol/L (3.5-5.5); Sodium 134 mmol/L (135-145); Total Bilirubin 0.4 mg/dL (0.3-1.2); Total Protein 5.6 g/dL (6.2-8.2)
--- NOTE | 2024-01-26 11:43 | P.PN ---
Subjective Progress Note Date: 01/26/24 This is a 74-year-old female patient with a known history of chronic obstructive pulmonary disease, former smoker, vapor, anal cancer with chemo and radiation in 2016, hypothyroidism, hyperlipidemia, diabetes mellitus, peripheral vascular disease status post right transmetatarsal amputation. She also has a known history of lung mass being followed in the outpatient setting. Due for a follow-up PET scan January 27, 2024. She also has extensive interstitial opacities and interstitial lung disease and diastolic congestive heart failure. She follows with Dr. Irving and Dr. Richter. She presented here to the emergency room earlier today with complaints of shortness of breath, dizziness and a fall to her knee. No loss of consciousness. Of the left knee revealed no evidence of fracture. Chest x-ray reveals findings of pulmonary edema. Possible atypical pneumonia. Fullness of the right hilum. Underlying mass not excluded. White count 14.5. Hemoglobin 11.1. Platelets 471. Sodium 135. Potassium 3.6. Bicarb 23. BUN 17. Creatinine 0.71. Glucose 204. AST 60. ALT 33. proBNP 2010. Urinalysis with high WBCs and large leukocyte esterase. Influenza screen negative. She is seen today in consultation in the emergency department. She is currently resting on a stretcher. Awake and alert in no acute distress. She is maintaining O2 saturations in the 90s on 3 L/min per nasal cannula. Afebrile. Hemodynamically stable. She has been initiated on ceftriaxone and azithromycin. On IV diuretics. The patient is seen today January 24, 2024 in follow-up on the observation unit. She is currently resting in bed. Awake and alert in no acute distress. She is maintaining O2 saturations in the 90s on 4 L/min per nasal cannula. She is feeling a bit better today compared to yesterday. Not quite back to her baseline. White count 9.2. Hemoglobin 11.7. Platelets 415. Sodium 135. Potassium 3.3. Bicarb 27. BUN 17. Creatinine 0.77. Glucose 04/30/2018. Procalcitonin 0.38. Currently on ceftriaxone and azithromycin. She remains on IV diuretics. Remains on bronchodilators. The patient is seen today January 25, 2020 for follow-up in the observation unit. She is currently awake and alert in no acute distress. She is maintaining good O2 saturations in the 90s on 3 L nasal cannula. She is afebrile. Hemodynamically stable. Follow-up chest x-ray reveals pulmonary venous congestion with small effusions. Urine culture revealed no growth. Blood culture revealed no growth. White count 9.1. Hemoglobin 10.2. Bicarb 26. BUN 15. Creatinine 0.83. Glucose 125. Procalcitonin negative at 0.38. Currently on ceftriaxone per ID service. Continued on IV diuretics. Continued on bronchodilators. Currently in a negative balance. The patient is seen today January 26, 2024 in follow-up on the regular medical floor. She is currently resting comfortably in bed. Awake and alert in no acute distress. She is maintaining good O2 saturations in the 90s on 3 L/min per nasal cannula. She is afebrile. Hemodynamically stable. Urine culture revealed no growth. Blood culture revealed no growth. White count 9.7. Hemoglobin 10.2. Platelets 426. Sodium 134. Potassium 3.8. Bicarb 25. BUN 14. Creatinine 0.9. Glucose 136. She is continued on ceftriaxone. Lovenox for DVT prophylaxis. Remains on oral diuretics. Currently in a negative -1.3 L balance. Objective - Vital Signs Vital signs: Vital Signs Temp 98.2 F 01/26/24 06:55 Pulse 77 01/26/24 09:07 Resp 16 01/26/24 09:07 BP 111/69 01/26/24 06:55 Pulse Ox 96 01/26/24 08:59 FiO2 Intake & Output 01/25/24 01/26/24 01/26/24 18:59 06:59 18:59 Intake Total 354 Output Total 1100 650 Balance -746 -650 Intake: Oral 354 Output: Urine 1100 650 Other: Voiding Method Diaper Diaper Diaper Incontinent Incontinent Incontinent External Catheter External Catheter External Catheter # Bowel Movements 0 - Exam GENERAL EXAM: Alert, pleasant 74-year-old female, resting in bed, on 3L per nasal cannula, in no apparent distress. HEAD: Normocephalic. EYES: Normal reaction of pupils, equal size. NOSE: Clear with pink turbinates. THROAT: No erythema or exudates. NECK: No masses, no JVD. CHEST: No chest wall deformity. LUNGS: Equal air entry with scattered rhonchi. CVS: S1 and S2 normal with no audible murmur, regular rhythm. ABDOMEN: No hepatosplenomegaly, normal bowel sounds, no guarding or rigidity. SPINE: No scoliosis or deformity SKIN: No rashes CENTRAL NERVOUS SYSTEM: No focal deficits, tone is normal in all 4 extremities. EXTREMITIES: Transmetatarsal amputation on the right foot. There is no peripheral edema. No clubbing, no cyanosis. Peripheral pulses are intact. - Labs CBC & Chem 7: 01/26/24 06:00 01/26/24 06:00 Labs: Abnormal Lab Results - Last 24 Hours (Table) 01/25/24 01/25/24 01/25/24 Range/Units 11:19 16:05 20:15 RBC (4.10-5.20) X 10*6/uL Hgb (12.0-15.0) g/dL Hct (37.2-46.3) % RDW (11.5-14.5) % Immature Gran # (0.00-0.04) X 10*3/uL Eosinophils # (0.04-0.35) X 10*3/uL Sodium (135-145) mmol/L Anion Gap (4.00-12.00) mmol/L Glucose (70-110) mg/dL POC Glucose (mg/dL) 132 H 132 H (70-110) mg/dL Iron 43 L (50-170) UG/DL Transferrin 184.0 L (204.0-354.0) mg/dL Ferritin 572.0 H (10.0-291.0) ng/mL AST (13-35) U/L Total Protein (6.2-8.2) g/dL Albumin (3.8-4.9) g/dL Albumin/Globulin Ratio (1.60-3.17) Ratio 01/26/24 01/26/24 01/26/24 Range/Units 05:47 06:00 06:00 RBC 3.51 L (4.10-5.20) X 10*6/uL Hgb 10.2 L (12.0-15.0) g/dL Hct 31.8 L (37.2-46.3) % RDW 14.7 H (11.5-14.5) % Immature Gran # 0.08 H (0.00-0.04) X 10*3/uL Eosinophils # 0.60 H (0.04-0.35) X 10*3/uL Sodium 134 L (135-145) mmol/L Anion Gap 13.50 H (4.00-12.00) mmol/L Glucose 136 H (70-110) mg/dL POC Glucose (mg/dL) 133 H (70-110) mg/dL Iron (50-170) UG/DL Transferrin (204.0-354.0) mg/dL Ferritin (10.0-291.0) ng/mL AST 38 H (13-35) U/L Total Protein 5.6 L (6.2-8.2) g/dL Albumin 3.2 L (3.8-4.9) g/dL Albumin/Globulin Ratio 1.33 L (1.60-3.17) Ratio Microbiology - Last 24 Hours (Table) 01/23/24 13:43 Blood Culture - Preliminary Blood Assessment and Plan Assessment: Generalized weakness and fall with injury to left knee, no fracture on x-ray 3 cm masslike consolidative density in the right lower lobe being followed in the outpatient setting. A PET scan from August 19, 2023 revealed right lower lobe pulmonary nodule with increased metabolic activity compatible with malignancy. There is at least 1 right pulmonary hilum lymph node suspicious for metastatic disease. Extensive interstitial opacities along suspicious for ILD versus CHF. She was given a trial of steroids for 4 weeks and was due for a follow-up CT scan of the chest on October 11, 2023. CT scan of the chest was done yesterday 10/08/2023 that revealed similar pleural-based mass of the right lower lobe which is essentially unchanged in overall size and appearance. Possible minimal early cavitation. Pulmonary fibrosis at least moderate in degree. Plan is for follow- up PET scan on 01/27/2024 History of of diastolic congestive heart failure and valvular heart disease, echocardiogram estimated a preserved left ventricular ejection fraction of 55 to 60%, with mild to moderate tricuspid regurgitation, mild mitral stenosis, mild aortic regurgitation. Chronic hypoxemic respiratory failure, secondary to above History of smoking-related interstitial fibrosis, biopsy-proven History of rectal cancer, status post chemo and radiation. Patient's most recent PET scan was from November, which did not show any new areas of abnormal hypermetabolic uptake to suggest active neoplastic recurrence. History of peripheral vascular occlusive disease, status post right femoral tibial bypass. History of previous right toe amputations Chronic microcytic, hypochromic anemia History obstructive sleep apnea History of hyperlipidemia History of CVA/TIA History of hypothyroidism History of frequent urinary tract infections Former tobacco smoker, vaper Plan: Patient was seen and evaluated Labs and medications reviewed Continue diuretics Antibiotics per ID service Titrate the FiO2 as tolerated Plan is for outpatient PET scan This patient was seen independently by the pulmonary nurse practitioner addressing pulmonary issues I have personally seen and examined the patient, performed the documentation and the assessment and plan as written. Number of minutes spent on the visit: 24.
[2024-01-26 11:58] LABS: Glucose,Whole Blood 155 mg/dL (70-110)
--- NOTE | 2024-01-26 12:37 | P.PN ---
Subjective Progress Note Date: 01/26/24 Aleixa Rubin, is a 74-year-old female who presented to [facility] emergency room with a chief complaint of worsening shortness of breath She was evaluated in the emergency room vital examination on presentation revealed a temperature of 99 pulse 82 respiration 22 blood pressure 87/59 pulse ox 93% on 4 L nasal cannula Laboratory data reveals a white blood count of 14.5 hemoglobin 11.1 platelet count 471 BUN 17 creatinine 0.71 urine analysis revealed evidence of urinary tract infection Testing in the emergency room revealed EKG revealed normal sinus rhythm with nonspecific T wave abnormality, chest x-ray revealed evidence of pulmonary edema versus atypical pneumonia Patient was admitted to medical floor for further evaluation and treatment Past medical history is significant for history of chronic obstructive pulmonary disease, history of hypertension, history of hyperlipidemia, history of diabetes mellitus, history of hypothyroidism, history of anal cancer with previous hist ory of chemotherapy, history of diastolic congestive heart failure history of peripheral vascular disease, and history of lung mass followed by pulmonary On review of systems patient is alert and oriented x 3 in no apparent distress she is complaining of cough with sputum production and occasional blood in the sputum she is also complaining of shortness of breath and generalized weakness otherwise she denies any complaints there is no chest pain no nausea or vomiting no abdominal pain no diarrhea no blood in the stools, she had frequency with urination and urgency no hematuria On 01/25/2024 patient's alert and oriented x 3. Repeat chest x-ray has been ordered this a.m. per pulmonary. 2D echo ordered per cardiology. Patient reports minimum improvement. Remains on IV Lasix and IV Rocephin. Patient is hoping to be discharged home tomorrow so she can make it to her PET scan on . Current vital signs temp 98.3, heart rate 70, respiratory rate 17, blood pressure 106/55 with a pulse ox of 94% on room air On 01/26/2024 patient was seen and examined on the medical floor she is alert and oriented x 3 in no apparent distress, she is still complaining of shortness of breath with any activity, she is also complaining of left knee pain with inability to stand or walk, otherwise she denies any complaints there is no fever or chills no headache or dizziness no chest pain, no palpitation no cough no nausea or vomiting no abdominal pain no diarrhea, she is still having pain with urination. Patient is not ready for discharge at this time, we will continue with IV antibiotics, continue with PT and OT, patient may need to be transferred to rehab prior to going home, daughter was instructed to cancel appointment for PET scan tomorrow, and reschedule in the next 2 to 3 weeks. Objective - Vital Signs Vital signs: Vital Signs Temp 98.2 F 01/26/24 06:55 Pulse 77 01/26/24 09:07 Resp 16 01/26/24 09:07 BP 111/69 01/26/24 06:55 Pulse Ox 96 01/26/24 08:59 FiO2 Intake & Output 01/25/24 01/26/24 01/26/24 18:59 06:59 18:59 Intake Total 354 Output Total 1100 650 Balance -746 -650 Intake: Oral 354 Output: Urine 1100 650 Other: Voiding Method Diaper Diaper Diaper Incontinent Incontinent Incontinent External Catheter External Catheter External Catheter # Bowel Movements 0 - Exam In general patient is alert and oriented x 3 in no distress HEENT head normocephalic and atraumatic Neck is supple no JVD no goiter no lymphadenopathy no carotid bruit Chest examination revealed scattered crackles bilaterally no wheezing Cardiac exam reveals regular heart sounds S1 and S2 no gallops no murmurs Abdomen is soft nontender no organomegaly with normal bowel sounds Extremity exam reveals no edema no cyanosis or clubbing Neurological examination reveals no gross focal deficits - Labs CBC & Chem 7: 01/26/24 06:00 01/26/24 06:00 Labs: Abnormal Lab Results - Last 24 Hours (Table) 01/25/24 01/25/24 01/25/24 Range/Units 11:19 16:05 20:15 RBC (4.10-5.20) X 10*6/uL Hgb (12.0-15.0) g/dL Hct (37.2-46.3) % RDW (11.5-14.5) % Immature Gran # (0.00-0.04) X 10*3/uL Eosinophils # (0.04-0.35) X 10*3/uL Sodium (135-145) mmol/L Anion Gap (4.00-12.00) mmol/L Glucose (70-110) mg/dL POC Glucose (mg/dL) 132 H 132 H (70-110) mg/dL Iron 43 L (50-170) UG/DL Transferrin 184.0 L (204.0-354.0) mg/dL Ferritin 572.0 H (10.0-291.0) ng/mL AST (13-35) U/L Total Protein (6.2-8.2) g/dL Albumin (3.8-4.9) g/dL Albumin/Globulin Ratio (1.60-3.17) Ratio 01/26/24 01/26/24 01/26/24 Range/Units 05:47 06:00 06:00 RBC 3.51 L (4.10-5.20) X 10*6/uL Hgb 10.2 L (12.0-15.0) g/dL Hct 31.8 L (37.2-46.3) % RDW 14.7 H (11.5-14.5) % Immature Gran # 0.08 H (0.00-0.04) X 10*3/uL Eosinophils # 0.60 H (0.04-0.35) X 10*3/uL Sodium 134 L (135-145) mmol/L Anion Gap 13.50 H (4.00-12.00) mmol/L Glucose 136 H (70-110) mg/dL POC Glucose (mg/dL) 133 H (70-110) mg/dL Iron (50-170) UG/DL Transferrin (204.0-354.0) mg/dL Ferritin (10.0-291.0) ng/mL AST 38 H (13-35) U/L Total Protein 5.6 L (6.2-8.2) g/dL Albumin 3.2 L (3.8-4.9) g/dL Albumin/Globulin Ratio 1.33 L (1.60-3.17) Ratio 01/26/24 Range/Units 11:56 RBC (4.10-5.20) X 10*6/uL Hgb (12.0-15.0) g/dL Hct (37.2-46.3) % RDW (11.5-14.5) % Immature Gran # (0.00-0.04) X 10*3/uL Eosinophils # (0.04-0.35) X 10*3/uL Sodium (135-145) mmol/L Anion Gap (4.00-12.00) mmol/L Glucose (70-110) mg/dL POC Glucose (mg/dL) 155 H (70-110) mg/dL Iron (50-170) UG/DL Transferrin (204.0-354.0) mg/dL Ferritin (10.0-291.0) ng/mL AST (13-35) U/L Total Protein (6.2-8.2) g/dL Albumin (3.8-4.9) g/dL Albumin/Globulin Ratio (1.60-3.17) Ratio Microbiology - Last 24 Hours (Table) 01/23/24 13:43 Blood Culture - Preliminary Blood Assessment and Plan Plan: Shortness of breath, likely multifactorial related to congestive heart failure, COPD, underlying known history of lung mass Acute on chronic diastolic congestive heart failure exacerbation Underlying history of valvular heart disease Underlying history of COPD Underlying history of chronic hypoxic respiratory failure on home oxygen Previous history of rectal cancer received chemotherapy and radiation therapy Underlying history of peripheral vascular disease Underlying history of diabetes mellitus Underlying history of hyperlipidemia Underlying history of hypothyroidism Underlying history of anxiety disorder Underlying history of seizure disorder maintained on Keppra Underlying history of lung mass suspicious for lung cancer followed by pulmonary as outpatient At this time patient was seen and examined Home medications reviewed and reordered Cardiology and pulmonary consultation requested Patient was started on IV antibiotic in the emergency room For DVT prophylaxis subcu Anup Will follow closely
--- NOTE | 2024-01-26 12:39 | P.PN ---
Subjective Progress Note Date: 01/25/24 Principal diagnosis: Reason for follow-up is leukocytosis UTI and question of pneumonia Patient is a 74-year-old female with a past medical history significant for diabetes mellitus CVA TIA COPD hyperlipidemia, history of anal cancer with chemoradiation 2016 presenting to the hospital for evaluation of increasing weakness and shortness of breath, she did have a low-grade fever positive UA chest x-ray pulmonary edema versus atypical pneumonia. On today's evaluation that is 01/25/2024, the patient is afebrile, the patient is on 3 L nasal current oxygen and breathing comfortably, the Pt denies having any chest pain or any worsening cough, the patient denies having any abdominal pain no vomiting or any diarrhea has been reported by the nursing staff. Patient white count is 9.1, creatinine 0.83 Objective - Vital Signs Vital signs: Vital Signs Temp 98.3 F 01/25/24 07:43 Pulse 76 01/25/24 08:00 Resp 18 01/25/24 08:00 BP 106/55 01/25/24 07:43 Pulse Ox 94 L 01/25/24 07:43 FiO2 Intake & Output 01/24/24 01/25/24 01/25/24 18:59 06:59 18:59 Intake Total 120 354 Output Total 900 700 Balance -780 -346 Weight 81.647 kg Intake: Oral 120 354 Output: Urine 900 700 Other: Voiding Method Diaper Diaper Diaper Incontinent Incontinent Incontinent External Catheter External Catheter External Catheter # Bowel Movements 0 - Exam GENERAL DESCRIPTION: An elderly female lying in bed in no distress RESPIRATORY SYSTEM: Unlabored breathing , decreased breath sounds at bases HEART: S1 S2 regular rate and rhythm , ABDOMEN: Soft , no tenderness EXTREMITIES: No edema feet - Labs CBC & Chem 7: 01/26/24 06:00 01/26/24 06:00 Labs: Abnormal Lab Results - Last 24 Hours (Table) 01/24/24 01/24/24 01/25/24 Range/Units 16:37 19:30 00:35 RBC 3.45 L (3.80-5.40) m/uL Hgb 10.2 L (11.4-16.0) gm/dL Hct 31.4 L (34.0-46.0) % Sodium (137-145) mmol/L Potassium (3.5-5.1) mmol/L Glucose (74-99) mg/dL POC Glucose (mg/dL) 131 H 164 H (70-110) mg/dL AST (14-36) U/L ALT (4-34) U/L Total Protein (6.3-8.2) g/dL Albumin (3.5-5.0) g/dL 01/25/24 01/25/24 01/25/24 Range/Units 00:35 06:13 11:00 RBC (3.80-5.40) m/uL Hgb (11.4-16.0) gm/dL Hct (34.0-46.0) % Sodium 133 L (137-145) mmol/L Potassium 3.2 L (3.5-5.1) mmol/L Glucose 125 H (74-99) mg/dL POC Glucose (mg/dL) 135 H 128 H (70-110) mg/dL AST 61 H (14-36) U/L ALT 35 H (4-34) U/L Total Protein 5.5 L (6.3-8.2) g/dL Albumin 3.1 L (3.5-5.0) g/dL Microbiology - Last 24 Hours (Table) 01/23/24 13:43 Blood Culture - Preliminary Blood 01/23/24 12:51 Urine Culture - Final Urine,Clean Catch Assessment and Plan (1) Leukocytosis Current Visit: Yes Status: Acute Code(s): D72.829 - ELEVATED WHITE BLOOD CELL COUNT, UNSPECIFIED SNOMED Code(s): 438776182 (2) Allergy to multiple antibiotics Current Visit: Yes Status: Acute Code(s): Z88.1 - ALLERGY STATUS TO OTHER ANTIBIOTIC AGENTS SNOMED Code(s): 472346309 (3) Urinary tract infection Current Visit: Yes Status: Acute Code(s): N39.0 - URINARY TRACT INFECTION, SITE NOT SPECIFIED SNOMED Code(s): 54358593 Plan: 1patient presented to hospital with weakness and fall also complaining of increasing shortness of breath but no significant cough or sputum production clinic suspicious low for atypical pneumonia Zithromax has been discontinued. 2patient did have urinary symptoms of burning frequency and lower abdominal discomfort elevated white count admission with a positive UA UTI not entirely excluded. 3-patient with multiple antibiotic ALLERGIES that would limit the number of antibiotic safe to use 4patient to continue with n Rocephin to cover for UTI possible cystitis while waiting for the culture to finalize Dictation was produced using [employer] dictation software. please excuse any grammatical, word or spelling errors. Time with Patient: Less than 30
--- NOTE | 2024-01-26 12:40 | P.PN ---
Subjective Progress Note Date: 01/26/24 Principal diagnosis: Reason for follow-up is leukocytosis UTI and question of pneumonia Patient is a 74-year-old female with a past medical history significant for diabetes mellitus CVA TIA COPD hyperlipidemia, history of anal cancer with chemoradiation 2016 presenting to the hospital for evaluation of increasing weakness and shortness of breath, she did have a low-grade fever positive UA chest x-ray pulmonary edema versus atypical pneumonia. On today's evaluation that is 01/26/2024, Patient is afebrile patient is currently on 3 L nasal cannula oxygen and denies having any worsening shortness of breath, the patient denies any chest pain continue to have a cough mostly dry, the patient denies any nausea vomiting did not have any abdominal pain and no diarrhea. Patient white count is 9.71, creatinine 0.9 repeat chest x-ray with pulmonary vascular congestion prominence of interstitial as well as pleural effusion Objective - Vital Signs Vital signs: Vital Signs Temp 98.2 F 01/26/24 06:55 Pulse 77 01/26/24 09:07 Resp 16 01/26/24 09:07 BP 111/69 01/26/24 06:55 Pulse Ox 96 01/26/24 08:59 FiO2 Intake & Output 01/25/24 01/26/24 01/26/24 18:59 06:59 18:59 Intake Total 354 Output Total 1100 650 Balance -746 -650 Intake: Oral 354 Output: Urine 1100 650 Other: Voiding Method Diaper Diaper Diaper Incontinent Incontinent Incontinent External Catheter External Catheter External Catheter # Bowel Movements 0 - Exam GENERAL DESCRIPTION: An elderly female lying in bed in no distress RESPIRATORY SYSTEM: Unlabored breathing , decreased breath sounds at bases HEART: S1 S2 regular rate and rhythm , ABDOMEN: Soft , no tenderness EXTREMITIES: No edema feet - Labs CBC & Chem 7: 01/26/24 06:00 01/26/24 06:00 Labs: Abnormal Lab Results - Last 24 Hours (Table) 01/25/24 01/25/24 01/25/24 Range/Units 11:00 11:19 16:05 RBC (4.10-5.20) X 10*6/uL Hgb (12.0-15.0) g/dL Hct (37.2-46.3) % RDW (11.5-14.5) % Immature Gran # (0.00-0.04) X 10*3/uL Eosinophils # (0.04-0.35) X 10*3/uL Sodium (135-145) mmol/L Anion Gap (4.00-12.00) mmol/L Glucose (70-110) mg/dL POC Glucose (mg/dL) 128 H 132 H (70-110) mg/dL Iron 43 L (50-170) UG/DL Transferrin 184.0 L (204.0-354.0) mg/dL Ferritin 572.0 H (10.0-291.0) ng/mL AST (13-35) U/L Total Protein (6.2-8.2) g/dL Albumin (3.8-4.9) g/dL Albumin/Globulin Ratio (1.60-3.17) Ratio 01/25/24 01/26/24 01/26/24 Range/Units 20:15 05:47 06:00 RBC 3.51 L (4.10-5.20) X 10*6/uL Hgb 10.2 L (12.0-15.0) g/dL Hct 31.8 L (37.2-46.3) % RDW 14.7 H (11.5-14.5) % Immature Gran # 0.08 H (0.00-0.04) X 10*3/uL Eosinophils # 0.60 H (0.04-0.35) X 10*3/uL Sodium (135-145) mmol/L Anion Gap (4.00-12.00) mmol/L Glucose (70-110) mg/dL POC Glucose (mg/dL) 132 H 133 H (70-110) mg/dL Iron (50-170) UG/DL Transferrin (204.0-354.0) mg/dL Ferritin (10.0-291.0) ng/mL AST (13-35) U/L Total Protein (6.2-8.2) g/dL Albumin (3.8-4.9) g/dL Albumin/Globulin Ratio (1.60-3.17) Ratio 01/26/24 Range/Units 06:00 RBC (4.10-5.20) X 10*6/uL Hgb (12.0-15.0) g/dL Hct (37.2-46.3) % RDW (11.5-14.5) % Immature Gran # (0.00-0.04) X 10*3/uL Eosinophils # (0.04-0.35) X 10*3/uL Sodium 134 L (135-145) mmol/L Anion Gap 13.50 H (4.00-12.00) mmol/L Glucose 136 H (70-110) mg/dL POC Glucose (mg/dL) (70-110) mg/dL Iron (50-170) UG/DL Transferrin (204.0-354.0) mg/dL Ferritin (10.0-291.0) ng/mL AST 38 H (13-35) U/L Total Protein 5.6 L (6.2-8.2) g/dL Albumin 3.2 L (3.8-4.9) g/dL Albumin/Globulin Ratio 1.33 L (1.60-3.17) Ratio Microbiology - Last 24 Hours (Table) 01/23/24 13:43 Blood Culture - Preliminary Blood Assessment and Plan (1) Leukocytosis Current Visit: Yes Status: Acute Code(s): D72.829 - ELEVATED WHITE BLOOD CELL COUNT, UNSPECIFIED SNOMED Code(s): 595308604 (2) Allergy to multiple antibiotics Current Visit: Yes Status: Acute Code(s): Z88.1 - ALLERGY STATUS TO OTHER ANTIBIOTIC AGENTS SNOMED Code(s): 737423770 (3) Urinary tract infection Current Visit: Yes Status: Acute Code(s): N39.0 - URINARY TRACT INFECTION, SITE NOT SPECIFIED SNOMED Code(s): 15534181 Plan: 1patient presented to hospital with weakness and fall also complaining of increasing shortness of breath but no significant cough or sputum production clinic suspicious low for atypical pneumonia Zithromax has been discontinued. 2patient did have urinary symptoms of burning frequency and lower abdominal discomfort elevated white count admission with a positive UA UTI not entirely excluded. 3-patient with multiple antibiotic ALLERGIES that would limit the number of antibiotic safe to use 4patient is empirically covered with the Rocephin culture have been negative so far family seem to be slightly concerned as they have been told lungs findings are not related to CHF atypical pneumonia less likely will go ahead check a urine for Legionella antigen and mycoplasma IgM. Brought to the bedside questions answered Dictation was produced using [employer] dictation software. please excuse any grammatical, word or spelling errors. Time with Patient: Less than 30
[2024-01-26] MEDS ORDERED: RX INFO: IV CONTRAST WAS GIVEN 1 EACH MISC MISCELLANE PRN (13:37)
--- NOTE | 2024-01-26 15:38 | CT ---
EXAMINATION TYPE: CT chest w con CT DLP: 608 mGycm, Automated exposure control for dose reduction was used. DATE OF EXAM: 01/26/2024 2:59 PM COMPARISON: CT chest 10/08/2023, PET/CT 08/19/23, CTA chest 08/09/2023 CLINICAL INDICATION:Female, 74 years old with history of lung mass, restaging scan; PHH, Lung mass, s taging TECHNIQUE: Multiple axial images were obtained through the chest following the administration of 100 cc of Isovue 300. . Coronal and sagittal reformats reviewed. FINDINGS: LUNGS/ PLEURA: No pneumothorax. Scattered chronic interstitial changes throughout the lungs with scat tered regions of patchy groundglass opacities demonstrated. There is increased patchy groundglass opa cities within the left upper lobe from prior examination. Increased moderate size right pleural effus ion. No discrete left pleural effusion. Right lower lobe pulmonary mass measures 4.1 x 2.0 cm overall similar sized prior exam but demonstrates more fluid component when compared to prior exam. AIRWAY: Patent and unremarkable.. HEART: Size within normal limits. No pericardial effusion. Small coronary arterial calcifications. MEDIASTINUM: Stable enlarged mediastinal lymph nodes with interval including a subcarinal lymph measu ring 1.1 cm short axis increased size of right hilar lymph node measuring 1.8 cm (series 3, image 23) , previously 1.2 cm. VASCULATURE: No aortic aneurysm. Moderate atherosclerotic calcification of the aorta and its branche s. MUSCULOSKELETAL: No acute osseous abnormalities. Postsurgical changes from right shoulder arthroplast y. Lumbar fusion hardware demonstrated on finished cigar maker radiograph. Spinal stimulator leads identified termin ating at the T6 level. Chronic compression deformity of the L1 vertebral body with at least 80% heigh t loss centrally approximately 4 mm retropulsion. DISH of the thoracic spine. SOFT TISSUES/LYMPH NODES: Unremarkable. LOWER NECK: Left thyroid lobe 1 cm hypodense nodule. UPPER ABDOMEN: Calcified granuloma within the right hepatic dome. Gallbladder is surgically absent. L eft renal cortical 1.1 cm cyst. IMPRESSION: 1. Right lower lobe pulmonary mass is grossly similar in size with more fluid density from prior exam . Increasing size of right hilar lymph node which is similar mediastinal lymphadenopathy. Consider fo r progression of disease. 2. Increasing moderate right pleural effusion. 3. Redemonstration of pulmonary fibrotic changes with patchy regions of groundglass opacities which i s increased in the left upper lobe. Raises concern for superimposed infectious process versus pulmona ry edema. 4. Chronic L1 compression deformity with at least 80% height loss and 4 mm retropulsion. [facility], , 01/26/2024 3:36 PM
[2024-01-26 17:06] LABS: Glucose,Whole Blood 128 mg/dL (70-110)
--- NOTE | 2024-01-26 19:40 | P.PN ---
Subjective Progress Note Date: 01/26/24 No acute events. Pt reporting generalized weakness, and feeling down regarding current health and dx of possible cancer Objective - Vital Signs Vital signs: Vital Signs Temp 98.2 F 01/26/24 06:55 Pulse 77 01/26/24 09:07 Resp 16 01/26/24 09:07 BP 111/69 01/26/24 06:55 Pulse Ox 96 01/26/24 08:59 FiO2 Intake & Output 01/25/24 01/26/24 01/26/24 18:59 06:59 18:59 Intake Total 354 Output Total 1100 650 Balance -746 -650 Intake: Oral 354 Output: Urine 1100 650 Other: Voiding Method Diaper Diaper Diaper Incontinent Incontinent Incontinent External Catheter External Catheter External Catheter # Bowel Movements 0 - Constitutional General appearance: Present: no acute distress, obese - EENT Eyes: Present: anicteric sclerae, EOMI ENT: Present: hearing grossly normal - Respiratory Details: breathing is even and unlabored - Cardiovascular Details: skin warm and dry - Integumentary Integumentary: Absent: cyanotic, jaundiced - Musculoskeletal Musculoskeletal: Present: generalized weakness - Psychiatric Psychiatric: Present: A&O x's 3 - Labs CBC & Chem 7: 01/26/24 06:00 01/26/24 06:00 Labs: Abnormal Lab Results - Last 24 Hours (Table) 01/25/24 01/25/24 01/25/24 Range/Units 11:19 16:05 20:15 RBC (4.10-5.20) X 10*6/uL Hgb (12.0-15.0) g/dL Hct (37.2-46.3) % RDW (11.5-14.5) % Immature Gran # (0.00-0.04) X 10*3/uL Eosinophils # (0.04-0.35) X 10*3/uL Sodium (135-145) mmol/L Anion Gap (4.00-12.00) mmol/L Glucose (70-110) mg/dL POC Glucose (mg/dL) 132 H 132 H (70-110) mg/dL Iron 43 L (50-170) UG/DL Transferrin 184.0 L (204.0-354.0) mg/dL Ferritin 572.0 H (10.0-291.0) ng/mL AST (13-35) U/L Total Protein (6.2-8.2) g/dL Albumin (3.8-4.9) g/dL Albumin/Globulin Ratio (1.60-3.17) Ratio 01/26/24 01/26/24 01/26/24 Range/Units 05:47 06:00 06:00 RBC 3.51 L (4.10-5.20) X 10*6/uL Hgb 10.2 L (12.0-15.0) g/dL Hct 31.8 L (37.2-46.3) % RDW 14.7 H (11.5-14.5) % Immature Gran # 0.08 H (0.00-0.04) X 10*3/uL Eosinophils # 0.60 H (0.04-0.35) X 10*3/uL Sodium 134 L (135-145) mmol/L Anion Gap 13.50 H (4.00-12.00) mmol/L Glucose 136 H (70-110) mg/dL POC Glucose (mg/dL) 133 H (70-110) mg/dL Iron (50-170) UG/DL Transferrin (204.0-354.0) mg/dL Ferritin (10.0-291.0) ng/mL AST 38 H (13-35) U/L Total Protein 5.6 L (6.2-8.2) g/dL Albumin 3.2 L (3.8-4.9) g/dL Albumin/Globulin Ratio 1.33 L (1.60-3.17) Ratio 01/26/24 Range/Units 11:56 RBC (4.10-5.20) X 10*6/uL Hgb (12.0-15.0) g/dL Hct (37.2-46.3) % RDW (11.5-14.5) % Immature Gran # (0.00-0.04) X 10*3/uL Eosinophils # (0.04-0.35) X 10*3/uL Sodium (135-145) mmol/L Anion Gap (4.00-12.00) mmol/L Glucose (70-110) mg/dL POC Glucose (mg/dL) 155 H (70-110) mg/dL Iron (50-170) UG/DL Transferrin (204.0-354.0) mg/dL Ferritin (10.0-291.0) ng/mL AST (13-35) U/L Total Protein (6.2-8.2) g/dL Albumin (3.8-4.9) g/dL Albumin/Globulin Ratio (1.60-3.17) Ratio Microbiology - Last 24 Hours (Table) 01/23/24 13:43 Blood Culture - Preliminary Blood Assessment and Plan (1) Pneumonia Current Visit: Yes Status: Acute Priority: High Code(s): J18.9 - PNEUMONIA, UNSPECIFIED ORGANISM SNOMED Code(s): 329939242 (2) Pulmonary vascular congestion Current Visit: Yes Status: Acute Priority: High Code(s): R09.89 - OTH SYMPTOMS AND SIGNS INVOLVING THE CIRC AND RESP SYSTEMS SNOMED Code(s): 447788201 (3) Lung mass Current Visit: Yes Status: Acute Priority: Medium Code(s): R91.8 - OTHER NONSPECIFIC ABNORMAL FINDING OF LUNG FIELD SNOMED Code(s): 441142563 (4) Anemia Current Visit: Yes Status: Acute Priority: Medium Code(s): D64.9 - ANEMIA, UNSPECIFIED SNOMED Code(s): 133512891 Plan: CHF exacerbation/Pneumonia: Presented with SOB and weakness -Chest x-ray revealed findings suggestive for pulmonary edema. Atypical pn eumonia possible. Fullness of the right hilum. BNP 2009. -Patient was started on IV Rocephin for suspected pneumonia, as well as IV Lasix -Defer management to pulm and IM teams Lung mass: -Oncology history as dictated in HPI -Was referred back to the clinic on 10/20/23 with complaints of SOB and new RLL nodule (Not seen on PET Scan of 2020), SUV 10 per new PET Scan. It was thought this was likely new lung primary rather than recurrent anal cancer. She was referred to rad onc, and was being followed by pulmonology. Pulm decided not to proceed with bronch/biopsy due to history of pulmonary fibrosis and location of mass, recommended repeat PET CT in [address] scheduled for 01/27/24. Due to admission we will cancel PET CT and obtain CT chest with contrast to reevaluate pulmonary mass -Will f/u on scan results and discuss case with pulmonology for evaluation for bronch/biopsy Normocytic anemia: -On admit CBC showing WBC 9.1, hemoglobin 10.2, MCV 91.1 platelets 430,000 with slight hypochromasia noted. Hemoglobin typically in the 11-12 range. Denies any episodes of acute bleeding. She is on oral iron daily for previous history of iron deficiency -Nutritional studies ordered -Iron studies consistent with anemia of inflammation. B12 lower end of normal, 278, MMA and folate pending -Hgb stable -Continue to monitor CBC Had long discussion with patient and daughter today regarding POC. All questions and concerns were addressed
[2024-01-26 19:56] LABS: Glucose,Whole Blood 178 mg/dL (70-110)
[2024-01-27 06:06] LABS: Glucose,Whole Blood 156 mg/dL (70-110)
[2024-01-27 08:54] LABS: Basophils # (A) 0.06 X 10*3/uL (0.00-0.10); Basophils % (A) 0.6 %; Eosinophils # (A) 0.54 X 10*3/uL (0.04-0.35); Eosinophils % (A) 5.5 %; HCT 30.6 % (37.2-46.3); HGB 9.7 g/dL (12.0-15.0); Lymphocytes # (A) 2.28 X 10*3/uL (0.90-5.00); Lymphocytes % (A) 23.2 %; MCH 29.3 pg (27.0-32.0); MCHC 31.7 g/dL (32.0-37.0); MCV 92.4 FL (80.0-97.0); Mean Platelet Volume 10.4 FL (9.5-12.2); Monocytes # (A) 0.79 X 10*3/uL (0.20-1.00); NRBC Per 100 WBC 0 X 10*3/uL (0.00-0.01); Neutrophils # (A) 6.08 X 10*3/uL (1.80-7.70); Platelet Count 440 X 10*3/uL (140-440); RBC 3.31 X 10*6/uL (4.10-5.20); RDW 14.7 % (11.5-14.5); WBC 9.82 X 10*3/uL (4.50-10.00)
--- NOTE | 2024-01-27 08:57 | US ---
EXAMINATION TYPE: US chest DATE OF EXAM: 01/27/2024 COMPARISON: NONE CLINICAL INDICATION: Female, 74 years old with history of Right pleural effusion; SOB, known effusion on CT TECHNIQUE: Grayscale imaging of the chest. Targeted ultrasound of the posterior lower Right FINDINGS: EXAM MEASUREMENTS: Right Pleural Effusion pocket size: 10.9cm, 4.1cm pocket anterior to lung tissuecm Right skin surface to fluid distance: 2.8 cm Right side marked for possible thoracentesis outside the dept. Pulmonologists are able to review the images in the patient?s EMR. IMPRESSIONS: As above [facility], , 01/27/2024 8:54 AM
[2024-01-27 09:13] LABS: ALT 23 U/L (8-44); AST 33 U/L (13-35); Albumin 3.2 g/dL (3.8-4.9); Albumin/Globulin Ratio 1.39 Ratio (1.60-3.17); Alkaline Phosphatase 91 U/L (41-126); BUN/Creat Ratio 14.56 Ratio (12.00-20.00); Blood Urea Nitrogen 13.1 mg/dL (9.0-27.0); Calcium 8.5 mg/dL (8.7-10.3); Carbon Dioxide 25.4 mmol/L (21.6-31.8); Chloride 95 mmol/L (96-109); Globulin 2.3 g/dL (1.6-3.3); Glucose 136 mg/dL (70-110); Potassium 3.5 mmol/L (3.5-5.5); Sodium 134 mmol/L (135-145); Total Bilirubin 0.3 mg/dL (0.3-1.2); Total Protein 5.5 g/dL (6.2-8.2)
--- NOTE | 2024-01-27 10:27 | P.PN ---
Subjective HISTORY OF PRESENT ILLNESS: This is a 74-year-old female with a past medical history significant for peripheral vascular disease with previous lower extremity intervention, diabetes, hyperlipidemia, anxiety, valvular heart disease, congestive heart failure, chronic hypoxic respiratory failure on home oxygen, pulmonary fibrosis, CVA/TIA, and rectal cancer with previous chemo and radiation. Patient follows in the office with Dr. Genao but has not been in the office since December 2021. We have been asked to see the patient in consultation for congestive heart failure. Patient examined at the bedside. Patient states that she has been fee ling short of breath for the past couple months. She states that last week she went to her primary care physician's office and was prescribed antibiotics. She states that her shortness of breath did not improve. She states she was at home and was getting progressively more weak. She states that she was trying to walk from 1 room into the bathroom and thought that she was going to fall so she e nded up lowering herself to the ground. She denies having any syncopal episodes. She denies having any chest pain or pressure. Patient has a known lung mass. She states she is scheduled to undergo PET scan this week. She does report having a cough at home with blood-tinged sputum. DIAGNOSTICS: - EKG reveals sinus mechanism with no signs of acute ischemia - Chest xray finding suggestive for pulmonary edema. Atypical pneumonia could be considered. Fullness of right hilum. Underlying mass not excluded. - Laboratory data: WBC 9.2. Hemoglobin 11.7. Platelet count 415. Sodium 135. Potassium 3.3. BUN 17. Creatinine 0.77. Troponin negative x 1. proBNP 2009. - Current home cardiac medications include Lipitor 80 mg at night, Plavix 75 mg daily, Lasix 40 mg twice a day - Most recent echocardiogram obtained in July 2023 revealed ejection fraction 60 to 65%, mild mitral stenosis, trace to mild MR, mild aortic regurgitation, mild to moderate tricuspid regurgitation 01/25/2024 Patient examined this morning the bedside. Patient denies any chest pain or pressure. She continues to report shortness of breath. She remains on 3 L nasal cannula to maintain oxygen saturations greater than 92%. Blood pressure stable with a recent reading of 106/55. Chest x-ray this morning reveals pulmonary venous congestion with prominence of interstitium as well as pleural effusion. Findings may reflect congestive heart failure versus atypical pneumonia. Patient remains on IV diuretics. BUN today 15. Creatinine 0.83. Kidney function remains pending. 01/26/2024 Patient examined this morning at bedside. Patient currently denies any chest pain or pressure. She reports her breathing feels stable this morning. She remains on nasal cannula. Patient also remains on IV diuretics. Kidney function is not yet available from this morning. Echocardiogram completed revealing ejection fraction 55 to 60%, no obvious regional wall motion normalities, moderate pulmonary hypertension, moderate mitral stenosis, mild to moderate mitral regurgitation, mild aortic stenosis, mild aortic regurgitation, moderate tricuspid regurgitation. 01/27/2024 Patient examined this morning at the bedside. Patient currently denies chest pain or pressure. Patient reports shortness of breath this morning. Did revealing right lower lobe pulmonary mass grossly similar in size with more fluid density from prior exam. Increasing size of right hilar lymph node which is similar mediastinal lymphadenopathy. Increasing moderate right pleural effusion. Redemonstration of pulmonary fibrotic changes. PHYSICAL EXAM: VITAL SIGNS: Reviewed. GENERAL: Well-developed in no acute distress. HEENT: Head is normocephalic. Pupils are equal, round. Sclerae anicteric. Mucous membranes of the mouth are moist. Neck supple. No JVD or thyromegaly LUNGS: Respirations even and unlabored. Lungs diminished bilaterally HEART: Regular rate and rhythm. S1 and S2 heard. + systolic murmur ABDOMEN: Soft. Nondistended. Nontender. EXTREMITIES: Normal range of motion. No clubbing or cyanosis. Peripheral pulses intact. No lower extremity edema NEUROLOGIC: Awake and alert. Oriented x 3. ASSESSMENT: Generalized weakness with mechanical fall Shortness of breath Urinary tract infection Known right lung mass, suspected malignancy Acute on chronic heart failure with preserved EF Valvular heart disease Chronic hypoxic respiratory failure on home oxygen Moderate pulmonary hypertension Pulmonary fibrosis History of CVA/TIA History of rectal cancer with previous chemo and radiation Peripheral vascular disease with previous lower extremity intervention Hyperlipidemia Diabetes Anxiety PLAN: Plavix discontinued. Continue with aspirin 81 mg daily Continue with oral diuretics at this time Daily weights, accurate intake and output, and monitoring of kidney function Patient is stable from a cardiac perspective Await further recommendations and input from pulmonary and oncology medicine Further recommendations pending patient course Nurse practitioner note has been reviewed by physician. Signing provider agrees with the documented findings, assessment, and plan of care documented by [employer] as a scribe. Objective - Vital Signs Vital signs: Vital Signs Temp 98.3 F 10/10/24 07:40 Pulse 66 01/27/24 07:40 Resp 17 01/27/24 07:40 BP 103/59 01/27/24 07:40 Pulse Ox 96 01/27/24 07:40 FiO2 Intake & Output 01/26/24 01/27/24 01/27/24 18:59 06:59 18:59 Intake Total 118 540 0 Output Total 400 300 Balance -282 240 0 Intake: Oral 118 540 0 Output: Urine 400 300 Other: Voiding Method Diaper Diaper Incontinent Incontinent External Catheter External Catheter - Labs CBC & Chem 7: 01/27/24 04:03 01/27/24 04:03 Labs: Abnormal Lab Results - Last 24 Hours (Table) 01/26/24 01/26/24 01/26/24 Range/Units 06:00 06:00 11:56 RBC 3.51 L (4.10-5.20) X 10*6/uL Hgb 10.2 L (12.0-15.0) g/dL Hct 31.8 L (37.2-46.3) % MCHC (32.0-37.0) g/dL RDW 14.7 H (11.5-14.5) % Immature Gran # 0.08 H (0.00-0.04) X 10*3/uL Eosinophils # 0.60 H (0.04-0.35) X 10*3/uL Sodium 134 L (135-145) mmol/L Chloride (96-109) mmol/L Anion Gap 13.50 H (4.00-12.00) mmol/L Glucose 136 H (70-110) mg/dL POC Glucose (mg/dL) 155 H (70-110) mg/dL Calcium (8.7-10.3) mg/dL AST 38 H (13-35) U/L Total Protein 5.6 L (6.2-8.2) g/dL Albumin 3.2 L (3.8-4.9) g/dL Albumin/Globulin Ratio 1.33 L (1.60-3.17) Ratio 01/26/24 01/26/24 01/27/24 Range/Units 17:04 19:54 04:03 RBC 3.31 L (4.10-5.20) X 10*6/uL Hgb 9.7 L (12.0-15.0) g/dL Hct 30.6 L (37.2-46.3) % MCHC 31.7 L (32.0-37.0) g/dL RDW 14.7 H (11.5-14.5) % Immature Gran # 0.07 H (0.00-0.04) X 10*3/uL Eosinophils # 0.54 H (0.04-0.35) X 10*3/uL Sodium (135-145) mmol/L Chloride (96-109) mmol/L Anion Gap (4.00-12.00) mmol/L Glucose (70-110) mg/dL POC Glucose (mg/dL) 128 H 178 H (70-110) mg/dL Calcium (8.7-10.3) mg/dL AST (13-35) U/L Total Protein (6.2-8.2) g/dL Albumin (3.8-4.9) g/dL Albumin/Globulin Ratio (1.60-3.17) Ratio 01/27/24 01/27/24 Range/Units 04:03 06:04 RBC (4.10-5.20) X 10*6/uL Hgb (12.0-15.0) g/dL Hct (37.2-46.3) % MCHC (32.0-37.0) g/dL RDW (11.5-14.5) % Immature Gran # (0.00-0.04) X 10*3/uL Eosinophils # (0.04-0.35) X 10*3/uL Sodium 134 L (135-145) mmol/L Chloride 95 L (96-109) mmol/L Anion Gap 13.60 H (4.00-12.00) mmol/L Glucose 136 H (70-110) mg/dL POC Glucose (mg/dL) 156 H (70-110) mg/dL Calcium 8.5 L (8.7-10.3) mg/dL AST (13-35) U/L Total Protein 5.5 L (6.2-8.2) g/dL Albumin 3.2 L (3.8-4.9) g/dL Albumin/Globulin Ratio 1.39 L (1.60-3.17) Ratio Microbiology - Last 24 Hours (Table) 01/23/24 13:43 Blood Culture - Preliminary Blood
[2024-01-27 11:58] LABS: Glucose,Whole Blood 150 mg/dL (70-110)
--- NOTE | 2024-01-27 12:25 | P.PN ---
Subjective Progress Note Date: 01/27/24 This is a 74-year-old female patient with a known history of chronic obstructive pulmonary disease, former smoker, vapor, anal cancer with chemo and radiation in 2016, hypothyroidism, hyperlipidemia, diabetes mellitus, peripheral vascular disease status post right transmetatarsal amputation. She also has a known history of lung mass being followed in the outpatient setting. Due for a follow-up PET scan January 27, 2024. She also has extensive interstitial opacities and interstitial lung disease and diastolic congestive heart failure. She follows with Dr. Irving and Dr. Richter. She presented here to the emergency room earlier today with complaints of shortness of breath, dizziness and a fall to her knee. No loss of consciousness. Of the left knee revealed no evidence of fracture. Chest x-ray reveals findings of pulmonary edema. Possible atypical pneumonia. Fullness of the right hilum. Underlying mass not excluded. White count 14.5. Hemoglobin 11.1. Platelets 471. Sodium 135. Potassium 3.6. Bicarb 23. BUN 17. Creatinine 0.71. Glucose 204. AST 60. ALT 33. proBNP 2010. Urinalysis with high WBCs and large leukocyte esterase. Influenza screen negative. She is seen today in consultation in the emergency department. She is currently resting on a stretcher. Awake and alert in no acute distress. She is maintaining O2 saturations in the 90s on 3 L/min per nasal cannula. Afebrile. Hemodynamically stable. She has been initiated on ceftriaxone and azithromycin. On IV diuretics. The patient is seen today January 24, 2024 in follow-up on the observation unit. She is currently resting in bed. Awake and alert in no acute distress. She is maintaining O2 saturations in the 90s on 4 L/min per nasal cannula. She is feeling a bit better today compared to yesterday. Not quite back to her baseline. White count 9.2. Hemoglobin 11.7. Platelets 415. Sodium 135. Potassium 3.3. Bicarb 27. BUN 17. Creatinine 0.77. Glucose 04/30/2018. Procalcitonin 0.38. Currently on ceftriaxone and azithromycin. She remains on IV diuretics. Remains on bronchodilators. The patient is seen today January 25, 2020 for follow-up in the observation unit. She is currently awake and alert in no acute distress. She is maintaining good O2 saturations in the 90s on 3 L nasal cannula. She is afebrile. Hemodynamically stable. Follow-up chest x-ray reveals pulmonary venous congestion with small effusions. Urine culture revealed no growth. Blood culture revealed no growth. White count 9.1. Hemoglobin 10.2. Bicarb 26. BUN 15. Creatinine 0.83. Glucose 125. Procalcitonin negative at 0.38. Currently on ceftriaxone per ID service. Continued on IV diuretics. Continued on bronchodilators. Currently in a negative balance. The patient is seen today January 26, 2024 in follow-up on the regular medical floor. She is currently resting comfortably in bed. Awake and alert in no acute distress. She is maintaining good O2 saturations in the 90s on 3 L/min per nasal cannula. She is afebrile. Hemodynamically stable. Urine culture revealed no growth. Blood culture revealed no growth. White count 9.7. Hemoglobin 10.2. Platelets 426. Sodium 134. Potassium 3.8. Bicarb 25. BUN 14. Creatinine 0.9. Glucose 136. She is continued on ceftriaxone. Lovenox for DVT prophylaxis. Remains on oral diuretics. Currently in a negative -1.3 L balance. The patient is seen today January 27, 2024 in follow-up on the regular medical floor. She is awake and alert in no acute distress. Sitting up in bed. Maintaining O2 saturations in the 90s on 3 L/min per nasal cannula. She remains on oral diuretics. Remains on ceftriaxone. Lovenox for DVT prophylaxis. White count 9.8. Hemoglobin 9.7. Platelets 440. Sodium 134. Potassium 3.5. Bicarb 25. BUN 13. Creatinine 0.9. Glucose 136. Legionella screen was negative. CT scan of the chest revealed a right lower lobe pulmonary mass which is grossly similar in size with more fluid density from prior exam. Increasing size of the right hilar lymph node. Increasing moderate right pleural effusion. Redemonstration of pulmonary fibrotic changes with patchy regions of groundglass opacities increase in the left upper lobe. Objective - Vital Signs Vital signs: Vital Signs Temp 98.3 F 01/27/24 07:40 Pulse 66 01/27/24 07:40 Resp 17 01/27/24 07:40 BP 103/59 01/27/24 07:40 Pulse Ox 96 01/27/24 07:40 FiO2 Intake & Output 01/26/24 01/27/24 01/27/24 18:59 06:59 18:59 Intake Total 118 540 0 Output Total 400 300 Balance -282 240 0 Intake: Oral 118 540 0 Output: Urine 400 300 Other: Voiding Method Diaper Diaper Incontinent Incontinent Incontinent External Catheter External Catheter External Catheter - Exam GENERAL EXAM: Alert, obese, weak 74-year-old female, on 3L per nasal cannula, in no apparent distress. HEAD: Normocephalic. EYES: Normal reaction of pupils, equal size. NOSE: Clear with pink turbinates. THROAT: No erythema or exudates. NECK: No masses, no JVD. CHEST: No chest wall deformity. LUNGS: Equal air entry with scattered rhonchi, crackles in the right lung base. CVS: S1 and S2 normal with no audible murmur, regular rhythm. ABDOMEN: No hepatosplenomegaly, normal bowel sounds, no guarding or rigidity. SPINE: No scoliosis or deformity SKIN: No rashes CENTRAL NERVOUS SYSTEM: No focal deficits, tone is normal in all 4 extremities. EXTREMITIES: Transmetatarsal amputation on the right foot. There is no peripheral edema. No clubbing, no cyanosis. Peripheral pulses are intact. - Labs CBC & Chem 7: 01/27/24 04:03 01/27/24 04:03 Labs: Abnormal Lab Results - Last 24 Hours (Table) 01/26/24 01/26/24 01/27/24 Range/Units 17:04 19:54 04:03 RBC 3.31 L (4.10-5.20) X 10*6/uL Hgb 9.7 L (12.0-15.0) g/dL Hct 30.6 L (37.2-46.3) % MCHC 31.7 L (32.0-37.0) g/dL RDW 14.7 H (11.5-14.5) % Immature Gran # 0.07 H (0.00-0.04) X 10*3/uL Eosinophils # 0.54 H (0.04-0.35) X 10*3/uL Sodium (135-145) mmol/L Chloride (96-109) mmol/L Anion Gap (4.00-12.00) mmol/L Glucose (70-110) mg/dL POC Glucose (mg/dL) 128 H 178 H (70-110) mg/dL Calcium (8.7-10.3) mg/dL Total Protein (6.2-8.2) g/dL Albumin (3.8-4.9) g/dL Albumin/Globulin Ratio (1.60-3.17) Ratio 01/27/24 01/27/24 01/27/24 Range/Units 04:03 06:04 11:56 RBC (4.10-5.20) X 10*6/uL Hgb (12.0-15.0) g/dL Hct (37.2-46.3) % MCHC (32.0-37.0) g/dL RDW (11.5-14.5) % Immature Gran # (0.00-0.04) X 10*3/uL Eosinophils # (0.04-0.35) X 10*3/uL Sodium 134 L (135-145) mmol/L Chloride 95 L (96-109) mmol/L Anion Gap 13.60 H (4.00-12.00) mmol/L Glucose 136 H (70-110) mg/dL POC Glucose (mg/dL) 156 H 150 H (70-110) mg/dL Calcium 8.5 L (8.7-10.3) mg/dL Total Protein 5.5 L (6.2-8.2) g/dL Albumin 3.2 L (3.8-4.9) g/dL Albumin/Globulin Ratio 1.39 L (1.60-3.17) Ratio Microbiology - Last 24 Hours (Table) 01/23/24 13:43 Blood Culture - Preliminary Blood Assessment and Plan Assessment: Generalized weakness and fall with injury to left knee, no fracture on x-ray 3 cm masslike consolidative density in the right lower lobe being followed in the outpatient setting. A PET scan from August 19, 2023 revealed right lower lobe pulmonary nodule with increased metabolic activity compatible with malignancy. There is at least 1 right pulmonary hilum lymph node suspicious for metastatic disease. Extensive interstitial opacities along suspicious for ILD versus CHF. She was given a trial of steroids for 4 weeks and was due for a follow-up CT scan of the chest on October 11, 2023. CT scan of the chest was done yesterday 10/08/2023 that revealed similar pleural-based mass of the right lower lobe which is essentially unchanged in overall size and appearance. Possible minimal early cavitation. Pulmonary fibrosis at least moderate in degree. Plan is for follow- up PET scan was to be today 01/27/2024 but remains in the hospital History of of diastolic congestive heart failure and valvular heart disease, echocardiogram estimated a preserved left ventricular ejection fraction of 55 to 60%, with mild to moderate tricuspid regurgitation, mild mitral stenosis, mild aortic regurgitation. Chronic hypoxemic respiratory failure, secondary to above History of smoking-related interstitial fibrosis, biopsy-proven History of rectal cancer, status post chemo and radiation. Patient's most recent PET scan was from November, which did not show any new areas of abnormal hypermetabolic uptake to suggest active neoplastic recurrence. History of peripheral vascular occlusive disease, status post right femoral tibial bypass. History of previous right toe amputations Chronic microcytic, hypochromic anemia History obstructive sleep apnea History of hyperlipidemia History of CVA/TIA History of hypothyroidism History of frequent urinary tract infections Former tobacco smoker, vaper Plan: Patient was seen and evaluated CT scan of the chest, labs and medications reviewed Reviewed with Dr. Irving Will order ultrasound of right sided pleural effusion May be able to obtain a sample for cytology Will need to be rescheduled for PET scan that was for today This patient was seen independently by the pulmonary nurse practitioner addressing pulmonary issues I have personally seen and examined the patient, performed the documentation and the assessment and plan as written. Number of minutes spent on the visit: 25.
--- NOTE | 2024-01-27 14:43 | XR ---
EXAMINATION TYPE: XR chest 1V portable DATE OF EXAM: 01/27/2024 HISTORY: Right-sided thoracentesis COMPARISON: 02/06/2024 TECHNIQUE: Single view of the chest is submitted. FINDINGS: Demonstrated are scattered senescent parenchymal change. No evidence for right-sided pneumothorax. Small residual pleural effusion. Coarse infiltrates seen bi laterally. The heart is stable. Hilar and mediastinal structures are within normal limits. Degenerative changes are seen of the dorsal spine. IMPRESSION: 1. No evidence for right-sided pneumothorax. Small residual pleural effusion. Coarse infiltrates see n bilaterally. [facility], , 01/27/2024 2:41 PM
--- NOTE | 2024-01-27 14:49 | P.PN ---
Subjective Progress Note Date: 01/27/24 Alexia Rubin, is a 74-year-old female who presented to [facility] emergency room with a chief complaint of worsening shortness of breath She was evaluated in the emergency room vital examination on presentation revealed a temperature of 99 pulse 82 respiration 22 blood pressure 87/59 pulse ox 93% on 4 L nasal cannula Laboratory data reveals a white blood count of 14.5 hemoglobin 11.1 platelet count 471 BUN 17 creatinine 0.71 urine analysis revealed evidence of urinary tract infection Testing in the emergency room revealed EKG revealed normal sinus rhythm with nonspecific T wave abnormality, chest x-ray revealed evidence of pulmonary edema versus atypical pneumonia Patient was admitted to medical floor for further evaluation and treatment Past medical history is significant for history of chronic obstructive pulmonary disease, history of hypertension, history of hyperlipidemia, history of diabetes mellitus, history of hypothyroidism, history of anal cancer with previous hist ory of chemotherapy, history of diastolic congestive heart failure history of peripheral vascular disease, and history of lung mass followed by pulmonary On review of systems patient is alert and oriented x 3 in no apparent distress she is complaining of cough with sputum production and occasional blood in the sputum she is also complaining of shortness of breath and generalized weakness otherwise she denies any complaints there is no chest pain no nausea or vomiting no abdominal pain no diarrhea no blood in the stools, she had frequency with urination and urgency no hematuria On 01/25/2024 patient's alert and oriented x 3. Repeat chest x-ray has been ordered this a.m. per pulmonary. 2D echo ordered per cardiology. Patient reports minimum improvement. Remains on IV Lasix and IV Rocephin. Patient is hoping to be discharged home tomorrow so she can make it to her PET scan on . Current vital signs temp 98.3, heart rate 70, respiratory rate 17, blood pressure 106/55 with a pulse ox of 94% on room air On 01/26/2024 patient was seen and examined on the medical floor she is alert and oriented x 3 in no apparent distress, she is still complaining of shortness of breath with any activity, she is also complaining of left knee pain with inability to stand or walk, otherwise she denies any complaints there is no fever or chills no headache or dizziness no chest pain, no palpitation no cough no nausea or vomiting no abdominal pain no diarrhea, she is still having pain with urination. Patient is not ready for discharge at this time, we will continue with IV antibiotics, continue with PT and OT, patient may need to be transferred to rehab prior to going home, daughter was instructed to cancel appointment for PET scan tomorrow, and reschedule in the next 2 to 3 weeks. On 01/27/2024 patient was seen and examined on the medical floor she is alert and oriented x 3 in no apparent distress, she is still complaining of shortness of breath with, she is also complaining of left knee pain with inability to stand or walk, otherwise she denies any complaints there is no fever or chills no headache or dizziness no chest pain, no palpitation no cough no nausea or vomiting no abdominal pain no diarrhea, she is still having pain with urination. Objective - Vital Signs Vital signs: Vital Signs Temp 98.3 F 01/27/24 07:40 Pulse 66 01/27/24 07:40 Resp 17 01/27/24 07:40 BP 103/59 01/27/24 07:40 Pulse Ox 96 01/27/24 07:40 FiO2 Intake & Output 01/26/24 01/27/24 01/27/24 18:59 06:59 18:59 Intake Total 118 540 0 Output Total 400 300 Balance -282 240 0 Intake: Oral 118 540 0 Output: Urine 400 300 Other: Voiding Method Diaper Diaper Incontinent Incontinent Incontinent External Catheter External Catheter External Catheter - Exam In general patient is alert and oriented x 3 in no distress HEENT head normocephalic and atraumatic Neck is supple no JVD no goiter no lymphadenopathy no carotid bruit Chest examination revealed scattered crackles bilaterally no wheezing Cardiac exam reveals regular heart sounds S1 and S2 no gallops no murmurs Abdomen is soft nontender no organomegaly with normal bowel sounds Extremity exam reveals no edema no cyanosis or clubbing Neurological examination reveals no gross focal deficits - Labs CBC & Chem 7: 01/27/24 04:03 01/27/24 04:03 Labs: Abnormal Lab Results - Last 24 Hours (Table) 01/26/24 01/26/24 01/27/24 Range/Units 17:04 19:54 04:03 RBC 3.31 L (4.10-5.20) X 10*6/uL Hgb 9.7 L (12.0-15.0) g/dL Hct 30.6 L (37.2-46.3) % MCHC 31.7 L (32.0-37.0) g/dL RDW 14.7 H (11.5-14.5) % Immature Gran # 0.07 H (0.00-0.04) X 10*3/uL Eosinophils # 0.54 H (0.04-0.35) X 10*3/uL Sodium (135-145) mmol/L Chloride (96-109) mmol/L Anion Gap (4.00-12.00) mmol/L Glucose (70-110) mg/dL POC Glucose (mg/dL) 128 H 178 H (70-110) mg/dL Calcium (8.7-10.3) mg/dL Total Protein (6.2-8.2) g/dL Albumin (3.8-4.9) g/dL Albumin/Globulin Ratio (1.60-3.17) Ratio 01/27/24 01/27/24 01/27/24 Range/Units 04:03 06:04 11:56 RBC (4.10-5.20) X 10*6/uL Hgb (12.0-15.0) g/dL Hct (37.2-46.3) % MCHC (32.0-37.0) g/dL RDW (11.5-14.5) % Immature Gran # (0.00-0.04) X 10*3/uL Eosinophils # (0.04-0.35) X 10*3/uL Sodium 134 L (135-145) mmol/L Chloride 95 L (96-109) mmol/L Anion Gap 13.60 H (4.00-12.00) mmol/L Glucose 136 H (70-110) mg/dL POC Glucose (mg/dL) 156 H 150 H (70-110) mg/dL Calcium 8.5 L (8.7-10.3) mg/dL Total Protein 5.5 L (6.2-8.2) g/dL Albumin 3.2 L (3.8-4.9) g/dL Albumin/Globulin Ratio 1.39 L (1.60-3.17) Ratio Microbiology - Last 24 Hours (Table) 01/23/24 13:43 Blood Culture - Preliminary Blood Assessment and Plan Plan: Shortness of breath, likely multifactorial related to congestive heart failure, COPD, underlying known history of lung mass Acute on chronic diastolic congestive heart failure exacerbation Underlying history of valvular heart disease Underlying history of COPD Underlying history of chronic hypoxic respiratory failure on home oxygen Previous history of rectal cancer received chemotherapy and radiation therapy Underlying history of peripheral vascular disease Underlying history of diabetes mellitus Underlying history of hyperlipidemia Underlying history of hypothyroidism Underlying history of anxiety disorder Underlying history of seizure disorder maintained on Keppra Underlying history of lung mass suspicious for lung cancer followed by pulmonary as outpatient At this time patient was seen and examined Home medications reviewed and reordered Cardiology and pulmonary consultation requested Patient was started on IV antibiotic in the emergency room For DVT prophylaxis subcu Anup Will follow closely
--- NOTE | 2024-01-27 15:03 | P.PN ---
Subjective Progress Note Date: 01/27/24 Principal diagnosis: Reason for follow-up is leukocytosis UTI and question of pneumonia Patient is a 74-year-old female with a past medical history significant for diabetes mellitus CVA TIA COPD hyperlipidemia, history of anal cancer with chemoradiation 2016 presenting to the hospital for evaluation of increasing weakness and shortness of breath, she did have a low-grade fever positive UA chest x-ray pulmonary edema versus atypical pneumonia. On today's evaluation that is 01/27/2024, patient has been afebrile, patient is still complaining of shortness of breath and did have a cough with occasional sputum production no hemoptysis no pleuritic chest pain patient is currently on 3 denies current oxygen no vomiting or diarrhea has been reported. Patient white count is 9.82, creatinine 0.9 urine for Legionella antigen is negative Objective - Vital Signs Vital signs: Vital Signs Temp 98.3 F 01/27/24 07:40 Pulse 66 01/27/24 07:40 Resp 17 01/27/24 07:40 BP 103/59 01/27/24 07:40 Pulse Ox 96 01/27/24 07:40 FiO2 Intake & Output 01/26/24 01/27/24 01/27/24 18:59 06:59 18:59 Intake Total 118 540 0 Output Total 400 300 Balance -282 240 0 Intake: Oral 118 540 0 Output: Urine 400 300 Other: Voiding Method Diaper Diaper Incontinent Incontinent Incontinent External Catheter External Catheter External Catheter - Exam GENERAL DESCRIPTION: An elderly female lying in bed in no distress RESPIRATORY SYSTEM: Unlabored breathing , decreased breath sounds at bases HEART: S1 S2 regular rate and rhythm , ABDOMEN: Soft , no tenderness EXTREMITIES: No edema feet - Labs CBC & Chem 7: 01/27/24 04:03 01/27/24 04:03 Labs: Abnormal Lab Results - Last 24 Hours (Table) 01/26/24 01/26/24 01/27/24 Range/Units 17:04 19:54 04:03 RBC 3.31 L (4.10-5.20) X 10*6/uL Hgb 9.7 L (12.0-15.0) g/dL Hct 30.6 L (37.2-46.3) % MCHC 31.7 L (32.0-37.0) g/dL RDW 14.7 H (11.5-14.5) % Immature Gran # 0.07 H (0.00-0.04) X 10*3/uL Eosinophils # 0.54 H (0.04-0.35) X 10*3/uL Sodium (135-145) mmol/L Chloride (96-109) mmol/L Anion Gap (4.00-12.00) mmol/L Glucose (70-110) mg/dL POC Glucose (mg/dL) 128 H 178 H (70-110) mg/dL Calcium (8.7-10.3) mg/dL Total Protein (6.2-8.2) g/dL Albumin (3.8-4.9) g/dL Albumin/Globulin Ratio (1.60-3.17) Ratio 01/27/24 01/27/24 01/27/24 Range/Units 04:03 06:04 11:56 RBC (4.10-5.20) X 10*6/uL Hgb (12.0-15.0) g/dL Hct (37.2-46.3) % MCHC (32.0-37.0) g/dL RDW (11.5-14.5) % Immature Gran # (0.00-0.04) X 10*3/uL Eosinophils # (0.04-0.35) X 10*3/uL Sodium 134 L (135-145) mmol/L Chloride 95 L (96-109) mmol/L Anion Gap 13.60 H (4.00-12.00) mmol/L Glucose 136 H (70-110) mg/dL POC Glucose (mg/dL) 156 H 150 H (70-110) mg/dL Calcium 8.5 L (8.7-10.3) mg/dL Total Protein 5.5 L (6.2-8.2) g/dL Albumin 3.2 L (3.8-4.9) g/dL Albumin/Globulin Ratio 1.39 L (1.60-3.17) Ratio Microbiology - Last 24 Hours (Table) 01/23/24 13:43 Blood Culture - Preliminary Blood Assessment and Plan (1) Leukocytosis Current Visit: Yes Status: Acute Code(s): D72.829 - ELEVATED WHITE BLOOD CELL COUNT, UNSPECIFIED SNOMED Code(s): 110928398 (2) Allergy to multiple antibiotics Current Visit: Yes Status: Acute Code(s): Z88.1 - ALLERGY STATUS TO OTHER ANTIBIOTIC AGENTS SNOMED Code(s): 785188748 (3) Urinary tract infection Current Visit: Yes Status: Acute Code(s): N39.0 - URINARY TRACT INFECTION, SITE NOT SPECIFIED SNOMED Code(s): 31097858 Plan: 1patient presented to hospital with weakness and fall also complaining of increasing shortness of breath but no significant cough or sputum production clinic suspicious low for atypical pneumonia Zithromax has been discontinued. 2patient did have urinary symptoms of burning frequency and lower abdominal discomfort elevated white count admission with a positive UA UTI not entirely excluded. 3-patient with multiple antibiotic ALLERGIES that would limit the number of antibiotic safe to use 4patient Legionella antigen came back negative Mycoplasma IgM pending, patient is covered with Rocephin to continue Dictation was produced using [employer] dictation software. please excuse any grammatical, word or spelling errors. Time with Patient: Less than 30
[2024-01-27 17:11] LABS: Glucose,Whole Blood 130 mg/dL (70-110)
--- NOTE | 2024-01-27 17:36 | P.PN ---
Subjective Progress Note Date: 01/27/24 No acute events. Pt reporting generalized weakness and persisting SOB. Pulm planning for right sided thoracentesis Objective - Vital Signs Vital signs: Vital Signs Temp 98.3 F 01/27/24 07:40 Pulse 66 01/27/24 07:40 Resp 17 01/27/24 07:40 BP 103/59 01/27/24 07:40 Pulse Ox 96 01/27/24 07:40 FiO2 Intake & Output 01/26/24 01/27/24 01/27/24 18:59 06:59 18:59 Intake Total 118 540 0 Output Total 400 300 Balance -282 240 0 Intake: Oral 118 540 0 Output: Urine 400 300 Other: Voiding Method Diaper Diaper Incontinent Incontinent Incontinent External Catheter External Catheter External Catheter - Constitutional General appearance: Present: no acute distress - EENT Eyes: Present: anicteric sclerae, EOMI ENT: Present: hearing grossly normal - Respiratory Details: breathing is even and unlabored Respiratory: right: diminished, bilateral: rales - Cardiovascular Rhythm: regular - Gastrointestinal General gastrointestinal: Present: soft. Absent: tenderness - Integumentary Integumentary: Absent: cyanotic - Psychiatric Psychiatric: Present: A&O x's 3 - Labs CBC & Chem 7: 01/27/24 04:03 01/27/24 04:03 Labs: Abnormal Lab Results - Last 24 Hours (Table) 01/26/24 01/26/24 01/26/24 Range/Units 06:00 06:00 11:56 RBC 3.51 L (4.10-5.20) X 10*6/uL Hgb 10.2 L (12.0-15.0) g/dL Hct 31.8 L (37.2-46.3) % MCHC (32.0-37.0) g/dL RDW 14.7 H (11.5-14.5) % Immature Gran # 0.08 H (0.00-0.04) X 10*3/uL Eosinophils # 0.60 H (0.04-0.35) X 10*3/uL Sodium 134 L (135-145) mmol/L Chloride (96-109) mmol/L Anion Gap 13.50 H (4.00-12.00) mmol/L Glucose 136 H (70-110) mg/dL POC Glucose (mg/dL) 155 H (70-110) mg/dL Calcium (8.7-10.3) mg/dL AST 38 H (13-35) U/L Total Protein 5.6 L (6.2-8.2) g/dL Albumin 3.2 L (3.8-4.9) g/dL Albumin/Globulin Ratio 1.33 L (1.60-3.17) Ratio 01/26/24 01/26/24 01/27/24 Range/Units 17:04 19:54 04:03 RBC 3.31 L (4.10-5.20) X 10*6/uL Hgb 9.7 L (12.0-15.0) g/dL Hct 30.6 L (37.2-46.3) % MCHC 31.7 L (32.0-37.0) g/dL RDW 14.7 H (11.5-14.5) % Immature Gran # 0.07 H (0.00-0.04) X 10*3/uL Eosinophils # 0.54 H (0.04-0.35) X 10*3/uL Sodium (135-145) mmol/L Chloride (96-109) mmol/L Anion Gap (4.00-12.00) mmol/L Glucose (70-110) mg/dL POC Glucose (mg/dL) 128 H 178 H (70-110) mg/dL Calcium (8.7-10.3) mg/dL AST (13-35) U/L Total Protein (6.2-8.2) g/dL Albumin (3.8-4.9) g/dL Albumin/Globulin Ratio (1.60-3.17) Ratio 01/27/24 01/27/24 Range/Units 04:03 06:04 RBC (4.10-5.20) X 10*6/uL Hgb (12.0-15.0) g/dL Hct (37.2-46.3) % MCHC (32.0-37.0) g/dL RDW (11.5-14.5) % Immature Gran # (0.00-0.04) X 10*3/uL Eosinophils # (0.04-0.35) X 10*3/uL Sodium 134 L (135-145) mmol/L Chloride 95 L (96-109) mmol/L Anion Gap 13.60 H (4.00-12.00) mmol/L Glucose 136 H (70-110) mg/dL POC Glucose (mg/dL) 156 H (70-110) mg/dL Calcium 8.5 L (8.7-10.3) mg/dL AST (13-35) U/L Total Protein 5.5 L (6.2-8.2) g/dL Albumin 3.2 L (3.8-4.9) g/dL Albumin/Globulin Ratio 1.39 L (1.60-3.17) Ratio Microbiology - Last 24 Hours (Table) 01/23/24 13:43 Blood Culture - Preliminary Blood - Imaging and Cardiology Chest US, CT chest and CXR reviewed Assessment and Plan (1) Pneumonia Current Visit: Yes Status: Acute Priority: High Code(s): J18.9 - PNEUMONIA, UNSPECIFIED ORGANISM SNOMED Code(s): 516250969 (2) Pulmonary vascular congestion Current Visit: Yes Status: Acute Priority: High Code(s): R09.89 - OTH SYMPTOMS AND SIGNS INVOLVING THE CIRC AND RESP SYSTEMS SNOMED Code(s): 966922628 (3) Lung mass Current Visit: Yes Status: Acute Priority: Medium Code(s): R91.8 - OTHER NONSPECIFIC ABNORMAL FINDING OF LUNG FIELD SNOMED Code(s): 237477848 (4) Anemia Current Visit: Yes Status: Acute Priority: Medium Code(s): D64.9 - ANEMIA, UNSPECIFIED SNOMED Code(s): 685446485 Plan: CHF exacerbation/Pneumonia: Presented with SOB and weakness -Chest x-ray revealed findings suggestive for pulmonary edema. Atypical pneumonia possible. Fullness of the right hilum. BNP 2009. -Patient was started on IV Rocephin for suspected pneumonia, as well as IV Lasix -Defer management to pulm and IM teams Lung mass: -Oncology history as dictated in HPI -Was referred back to the clinic on 10/20/23 with complaints of SOB and new RLL nodule (Not seen on PET Scan of 2020), SUV 10 per new PET Scan. It was thought this was likely new lung primary rather than recurrent anal cancer. She was referred to rad onc, and was being followed by pulmonology. Pulm decided not to proceed with bronch/biopsy due to history of pulmonary fibrosis and location of mass, recommended repeat PET CT in [address] scheduled for 01/27/24. Due to admission we will cancel PET CT and obtain CT chest with contrast to reevaluate pulmonary mass -CT chest showing right lower lobe pulmonary mass is grossly similar in size with more fluid density from prior exam, previously measuring 3.0 x 3.1cm now measuring 4.1 x 2.0 cm. Increasing size of right hilar lymph node. With similar mediastinal lymphadenopathy. Increasing moderate right pleural effusion. And redemonstration of pulmonary fibrotic changes with patchy regions of groundglass opacities which has increased in the left upper lobe. Chest ultrasound revealing right pleural effusion pocket size 10.9 cm, 4.1 cm pocket anteriorly. Pulmonology planning for right-sided thoracentesis. Will request cytology on fluid -Will f/u on cytology, if negative for malignancy, will further discuss case with pulmonology for evaluation for bronch/biopsy Had discussion with patient and daughter today regarding results and POC. All questions and concerns were addressed Normocytic anemia: -On admit CBC showing WBC 9.1, hemoglobin 10.2, MCV 91.1 platelets 430,000 with slight hypochromasia noted. Hemoglobin typically in the 11-12 range. Denies any episodes of acute bleeding. She is on oral iron daily for previous history of iron deficiency -Nutritional studies ordered -Iron studies consistent with anemia of inflammation. B12 lower end of normal, 278 with normal MMA. Folate WNL. No supplementation needed at this time -Hgb stable -Continue to monitor CBC *Treatment/testing would be on hold until discharged from rehab facility attests: I have seen and examined patient, performed H&P, developed impression and plan of care. Discussed with dictator. Agree with docume ntation, dictated as a scribe
--- NOTE | 2024-01-27 20:26 | PCN ---
PROCEDURE NOTE PROCEDURE PERFORMED: Right-sided thoracentesis. PREOPERATIVE DIAGNOSIS: Right pleural effusion. POSTOPERATIVE DIAGNOSIS: Right pleural effusion. The patient's procedure took place in room 625. There was informed consent and universal timeout. The posterior chest was marked by ultrasound. WATER TREATMENT PLANT SUPERVISOR: Dr. Irving. MOTOR VEHICLE EXAMINER: Dr. Caty Rosales. Indication Pleural effusion. A time-out was completed verifying correct patient, procedure, site, positioning , and implant (s) or special equipment if applicable. Ultrasound guidance was/was not used and appropriate fluid pocket was identified and marked. Patient was positioned, prepped and draped in usual sterile fashion. Lidocaine was used to anesthetize the area. A Thoracentesis catheter was introduced into the pleural space and fluid was removed. Blood loss was none. We removed roughly 1 L of dark yellow fluid from the right pleural space. The patient tolerated the procedure well. The fluid will be sent for analysis including cytology, and also microbiology. A chest x-ray will be ordered to rule out pneumothorax. There was no immediate complication. MMODL / IJN: [id number] /
[2024-01-27 20:57] LABS: Glucose,Whole Blood 227 mg/dL (70-110)
[2024-01-28 03:45] LABS: Glucose, BF Source Pleural Fluid; Glucose, Body Fluid 143 mg/dL; LDH, Body Fluid Source Pleural Fluid; T. Protein, Body Fluid Source Pleural Fluid; Total Protein, Body Fluid >3600 mg/dL
[2024-01-28 04:40] LABS: Appearance,BF Slightly Hazy (Clear)
[2024-01-28 05:50] LABS: Glucose,Whole Blood 140 mg/dL (70-110)
[2024-01-28 08:44] LABS: Basophils # (A) 0.05 X 10*3/uL (0.00-0.10); Basophils % (A) 0.5 %; Eosinophils # (A) 0.46 X 10*3/uL (0.04-0.35); Eosinophils % (A) 4.8 %; HCT 30.7 % (37.2-46.3); HGB 9.8 g/dL (12.0-15.0); Lymphocytes # (A) 2.71 X 10*3/uL (0.90-5.00); Lymphocytes % (A) 28.1 %; MCHC 31.9 g/dL (32.0-37.0); MCV 90.8 FL (80.0-97.0); Mean Platelet Volume 10.2 FL (9.5-12.2); Monocytes # (A) 0.82 X 10*3/uL (0.20-1.00); Monocytes % (A) 8.5 %; NRBC Per 100 WBC 0 X 10*3/uL (0.00-0.01); Neutrophils % (A) 57.2 %; Platelet Count 404 X 10*3/uL (140-440); RBC 3.38 X 10*6/uL (4.10-5.20); RDW 14.7 % (11.5-14.5); WBC 9.63 X 10*3/uL (4.50-10.00)
[2024-01-28 08:54] LABS: ALT 18 U/L (8-44); AST 31 U/L (13-35); Albumin/Globulin Ratio 1.25 Ratio (1.60-3.17); Alkaline Phosphatase 83 U/L (41-126); BUN/Creat Ratio 14.88 Ratio (12.00-20.00); Blood Urea Nitrogen 11.9 mg/dL (9.0-27.0); Calcium 8.2 mg/dL (8.7-10.3); Carbon Dioxide 26.6 mmol/L (21.6-31.8); Chloride 96 mmol/L (96-109); Globulin 2.4 g/dL (1.6-3.3); Glucose 143 mg/dL (70-110); Potassium 3.4 mmol/L (3.5-5.5); Sodium 133 mmol/L (135-145); Total Bilirubin 0.3 mg/dL (0.3-1.2); Total Protein 5.4 g/dL (6.2-8.2)
--- NOTE | 2024-01-28 10:05 | P.PN ---
Subjective HISTORY OF PRESENT ILLNESS: This is a 74-year-old female with a past medical history significant for peripheral vascular disease with previous lower extremity intervention, diabetes, hyperlipidemia, anxiety, valvular heart disease, congestive heart failure, chronic hypoxic respiratory failure on home oxygen, pulmonary fibrosis, CVA/TIA, and rectal cancer with previous chemo and radiation. Patient follows in the office with Dr. Genao but has not been in the office since December 2021. We have been asked to see the patient in consultation for congestive heart failure. Patient examined at the bedside. Patient states that she has been fee ling short of breath for the past couple months. She states that last week she went to her primary care physician's office and was prescribed antibiotics. She states that her shortness of breath did not improve. She states she was at home and was getting progressively more weak. She states that she was trying to walk from 1 room into the bathroom and thought that she was going to fall so she e nded up lowering herself to the ground. She denies having any syncopal episodes. She denies having any chest pain or pressure. Patient has a known lung mass. She states she is scheduled to undergo PET scan this week. She does report having a cough at home with blood-tinged sputum. DIAGNOSTICS: - EKG reveals sinus mechanism with no signs of acute ischemia - Chest xray finding suggestive for pulmonary edema. Atypical pneumonia could be considered. Fullness of right hilum. Underlying mass not excluded. - Laboratory data: WBC 9.2. Hemoglobin 11.7. Platelet count 415. Sodium 135. Potassium 3.3. BUN 17. Creatinine 0.77. Troponin negative x 1. proBNP 2009. - Current home cardiac medications include Lipitor 80 mg at night, Plavix 75 mg daily, Lasix 40 mg twice a day - Most recent echocardiogram obtained in July 2023 revealed ejection fraction 60 to 65%, mild mitral stenosis, trace to mild MR, mild aortic regurgitation, mild to moderate tricuspid regurgitation 01/25/2024 Patient examined this morning the bedside. Patient denies any chest pain or pressure. She continues to report shortness of breath. She remains on 3 L nasal cannula to maintain oxygen saturations greater than 92%. Blood pressure stable with a recent reading of 106/55. Chest x-ray this morning reveals pulmonary venous congestion with prominence of interstitium as well as pleural effusion. Findings may reflect congestive heart failure versus atypical pneumonia. Patient remains on IV diuretics. BUN today 15. Creatinine 0.83. Kidney function remains pending. 01/26/2024 Patient examined this morning at bedside. Patient currently denies any chest pain or pressure. She reports her breathing feels stable this morning. She remains on nasal cannula. Patient also remains on IV diuretics. Kidney function is not yet available from this morning. Echocardiogram completed revealing ejection fraction 55 to 60%, no obvious regional wall motion normalities, moderate pulmonary hypertension, moderate mitral stenosis, mild to moderate mitral regurgitation, mild aortic stenosis, mild aortic regurgitation, moderate tricuspid regurgitation. 01/27/2024 Patient examined this morning at the bedside. Patient currently denies chest pain or pressure. Patient reports shortness of breath this morning. Did revealing right lower lobe pulmonary mass grossly similar in size with more fluid density from prior exam. Increasing size of right hilar lymph node which is similar mediastinal lymphadenopathy. Increasing moderate right pleural effusion. Redemonstration of pulmonary fibrotic changes. 01/28/2024 Patient examined this morning the bedside. Patient underwent right-sided thoracentesis yesterday with removal of 1 L. Patient currently denies chest pain or pressure. She reports mild shortness of breath this morning although improving after undergoing thoracentesis yesterday. She also reports improvement in her cough. Vital signs are stable. PHYSICAL EXAM: VITAL SIGNS: Reviewed. GENERAL: Well-developed in no acute distress. HEENT: Head is normocephalic. Pupils are equal, round. Sclerae anicteric. Mucous membranes of the mouth are moist. Neck supple. No JVD or thyromegaly LUNGS: Respirations even and unlabored. Lungs diminished bilaterally HEART: Regular rate and rhythm. S1 and S2 heard. + systolic murmur ABDOMEN: Soft. Nondistended. Nontender. EXTREMITIES: Normal range of motion. No clubbing or cyanosis. Peripheral pulses intact. No lower extremity edema NEUROLOGIC: Awake and alert. Oriented x 3. ASSESSMENT: Generalized weakness with mechanical fall Shortness of breath Urinary tract infection Known right lung mass, suspected malignancy Status post right sided thoracentesis, 01/27/2024 Acute on chronic heart failure with preserved EF Valvular heart disease Chronic hypoxic respiratory failure on home oxygen Moderate pulmonary hypertension Pulmonary fibrosis History of CVA/TIA History of rectal cancer with previous chemo and radiation Peripheral vascular disease with previous lower extremity intervention Hyperlipidemia Diabetes Anxiety PLAN: Plavix discontinued. Continue with aspirin 81 mg daily Continue with oral diuretics at this time Daily weights, accurate intake and output, and monitoring of kidney function Patient is stable from a cardiac perspective Await cytology from thoracentesis. Pulmonary and oncology following. Patient is currently stable from a cardiac standpoint with no further inpatient recommendations We will sign off. Please reconsult if needed. Nurse practitioner note has been reviewed by physician. Signing provider agrees with the documented findings, assessment, and plan of care documented by CRIPPLE WORKER as a scribe. Objective - Vital Signs Vital signs: Vital Signs Temp 97.8 F 01/28/24 08:00 Pulse 70 01/28/24 08:00 Resp 16 01/28/24 08:00 BP 118/69 01/28/24 08:00 Pulse Ox 94 L 01/28/24 08:00 FiO2 Intake & Output 01/27/24 01/28/24 01/28/24 18:59 06:59 18:59 Intake Total 118 200 Output Total 500 550 550 Balance -382 -350 -550 Intake: Oral 118 200 Output: Urine 500 550 550 Other: Voiding Method Incontinent Incontinent External Catheter External Catheter External Catheter - Labs CBC & Chem 7: 01/28/24 05:32 01/28/24 05:32 Labs: Abnormal Lab Results - Last 24 Hours (Table) 01/27/24 01/27/24 01/27/24 Range/Units 11:56 14:00 17:09 RBC (4.10-5.20) X 10*6/uL Hgb (12.0-15.0) g/dL Hct (37.2-46.3) % MCHC (32.0-37.0) g/dL RDW (11.5-14.5) % Immature Gran # (0.00-0.04) X 10*3/uL Eosinophils # (0.04-0.35) X 10*3/uL Sodium (135-145) mmol/L Potassium (3.5-5.5) mmol/L Glucose (70-110) mg/dL POC Glucose (mg/dL) 150 H 130 H (70-110) mg/dL Calcium (8.7-10.3) mg/dL Total Protein (6.2-8.2) g/dL Albumin (3.8-4.9) g/dL Albumin/Globulin Ratio (1.60-3.17) Ratio Fluid Appearance Slightly Hazy A (Clear) 01/27/24 01/28/24 01/28/24 Range/Units 20:56 05:32 05:32 RBC 3.38 L (4.10-5.20) X 10*6/uL Hgb 9.8 L (12.0-15.0) g/dL Hct 30.7 L (37.2-46.3) % MCHC 31.9 L (32.0-37.0) g/dL RDW 14.7 H (11.5-14.5) % Immature Gran # 0.09 H (0.00-0.04) X 10*3/uL Eosinophils # 0.46 H (0.04-0.35) X 10*3/uL Sodium 133 L (135-145) mmol/L Potassium 3.4 L (3.5-5.5) mmol/L Glucose 143 H (70-110) mg/dL POC Glucose (mg/dL) 227 H (70-110) mg/dL Calcium 8.2 L (8.7-10.3) mg/dL Total Protein 5.4 L (6.2-8.2) g/dL Albumin 3.0 L (3.8-4.9) g/dL Albumin/Globulin Ratio 1.25 L (1.60-3.17) Ratio Fluid Appearance (Clear) 01/28/24 Range/Units 05:48 RBC (4.10-5.20) X 10*6/uL Hgb (12.0-15.0) g/dL Hct (37.2-46.3) % MCHC (32.0-37.0) g/dL RDW (11.5-14.5) % Immature Gran # (0.00-0.04) X 10*3/uL Eosinophils # (0.04-0.35) X 10*3/uL Sodium (135-145) mmol/L Potassium (3.5-5.5) mmol/L Glucose (70-110) mg/dL POC Glucose (mg/dL) 140 H (70-110) mg/dL Calcium (8.7-10.3) mg/dL Total Protein (6.2-8.2) g/dL Albumin (3.8-4.9) g/dL Albumin/Globulin Ratio (1.60-3.17) Ratio Fluid Appearance (Clear)
--- NOTE | 2024-01-28 10:27 | P.PN ---
Subjective Progress Note Date: 01/28/24 Alexia Rubin, is a 74-year-old female who presented to [facility] emergency room with a chief complaint of worsening shortness of breath She was evaluated in the emergency room vital examination on presentation revealed a temperature of 99 pulse 82 respiration 22 blood pressure 87/59 pulse ox 93% on 4 L nasal cannula Laboratory data reveals a white blood count of 14.5 hemoglobin 11.1 platelet count 471 BUN 17 creatinine 0.71 urine analysis revealed evidence of urinary tract infection Testing in the emergency room revealed EKG revealed normal sinus rhythm with nonspecific T wave abnormality, chest x-ray revealed evidence of pulmonary edema versus atypical pneumonia Patient was admitted to medical floor for further evaluation and treatment Past medical history is significant for history of chronic obstructive pulmonary disease, history of hypertension, history of hyperlipidemia, history of diabetes mellitus, history of hypothyroidism, history of anal cancer with previous his tory of chemotherapy, history of diastolic congestive heart failure history of peripheral vascular disease, and history of lung mass followed by pulmonary On review of systems patient is alert and oriented x 3 in no apparent distress she is complaining of cough with sputum production and occasional blood in the sputum she is also complaining of shortness of breath and generalized weakness otherwise she denies any complaints there is no chest pain no nausea or vomiting no abdominal pain no diarrhea no blood in the stools, she had frequency with urination and urgency no hematuria On 01/25/2024 patient's alert and oriented x 3. Repeat chest x-ray has been ordered this a.m. per pulmonary. 2D echo ordered per cardiology. Patient reports minimum improvement. Remains on IV Lasix and IV Rocephin. Patient is hoping to be discharged home tomorrow so she can make it to her PET scan on . Current vital signs temp 98.3, heart rate 70, respiratory rate 17, blood pressure 106/55 with a pulse ox of 94% on room air On 01/26/2024 patient was seen and examined on the medical floor she is alert and oriented x 3 in no apparent distress, she is still complaining of shortness of breath with any activity, she is also complaining of left knee pain with inability to stand or walk, otherwise she denies any complaints there is no fever or chills no headache or dizziness no chest pain, no palpitation no cough no nausea or vomiting no abdominal pain no diarrhea, she is still having pain with urination. Patient is not ready for discharge at this time, we will continue with IV antibiotics, continue with PT and OT, patient may need to be transferred to rehab prior to going home, daughter was instructed to cancel appointment for PET scan tomorrow, and reschedule in the next 2 to 3 weeks. On 01/27/2024 patient was seen and examined on the medical floor she is alert and oriented x 3 in no apparent distress, she is still complaining of shortness of breath with, she is also complaining of left knee pain with inability to stand or walk, otherwise she denies any complaints there is no fever or chills no headache or dizziness no chest pain, no palpitation no cough no nausea or vomiting no abdominal pain no diarrhea, she is still having pain with urination. On 01/28/2024 patient is alert and oriented x 3. Patient underwent right-sided thoracentesis yesterday 1 L removed some improvement.on 10/28/2023 patient is alert and oriented 3. Patient underwent right-sided thoracentesis yesterday 1 L removed some improvement. Denies chest pain. Patient denies nausea vomiting or diarrhea. Patient denies any urinary burning or frequency Objective - Vital Signs Vital signs: Vital Signs Temp 97.8 F 01/28/24 08:00 Pulse 70 01/28/24 08:00 Resp 16 01/28/24 08:00 BP 118/69 01/28/24 08:00 Pulse Ox 94 L 01/28/24 08:00 FiO2 Intake & Output 01/27/24 01/28/24 01/28/24 18:59 06:59 18:59 Intake Total 118 200 Output Total 500 550 550 Balance -382 -350 -550 Intake: Oral 118 200 Output: Urine 500 550 550 Other: Voiding Method Incontinent Incontinent External Catheter External Catheter External Catheter - Exam In general patient is alert and oriented x 3 in no distress HEENT head normocephalic and atraumatic Neck is supple no JVD no goiter no lymphadenopathy no carotid bruit Chest examination revealed scattered crackles bilaterally no wheezing Cardiac exam reveals regular heart sounds S1 and S2 no gallops no murmurs Abdomen is soft nontender no organomegaly with normal bowel sounds Extremity exam reveals no edema no cyanosis or clubbing Neurological examination reveals no gross focal deficits - Labs CBC & Chem 7: 01/28/24 05:32 01/28/24 05:32 Labs: Abnormal Lab Results - Last 24 Hours (Table) 01/27/24 01/27/24 01/27/24 Range/Units 11:56 14:00 17:09 RBC (4.10-5.20) X 10*6/uL Hgb (12.0-15.0) g/dL Hct (37.2-46.3) % MCHC (32.0-37.0) g/dL RDW (11.5-14.5) % Immature Gran # (0.00-0.04) X 10*3/uL Eosinophils # (0.04-0.35) X 10*3/uL Sodium (135-145) mmol/L Potassium (3.5-5.5) mmol/L Glucose (70-110) mg/dL POC Glucose (mg/dL) 150 H 130 H (70-110) mg/dL Calcium (8.7-10.3) mg/dL Total Protein (6.2-8.2) g/dL Albumin (3.8-4.9) g/dL Albumin/Globulin Ratio (1.60-3.17) Ratio Fluid Appearance Slightly Hazy A (Clear) 01/27/24 01/28/24 01/28/24 Range/Units 20:56 05:32 05:32 RBC 3.38 L (4.10-5.20) X 10*6/uL Hgb 9.8 L (12.0-15.0) g/dL Hct 30.7 L (37.2-46.3) % MCHC 31.9 L (32.0-37.0) g/dL RDW 14.7 H (11.5-14.5) % Immature Gran # 0.09 H (0.00-0.04) X 10*3/uL Eosinophils # 0.46 H (0.04-0.35) X 10*3/uL Sodium 133 L (135-145) mmol/L Potassium 3.4 L (3.5-5.5) mmol/L Glucose 143 H (70-110) mg/dL POC Glucose (mg/dL) 227 H (70-110) mg/dL Calcium 8.2 L (8.7-10.3) mg/dL Total Protein 5.4 L (6.2-8.2) g/dL Albumin 3.0 L (3.8-4.9) g/dL Albumin/Globulin Ratio 1.25 L (1.60-3.17) Ratio Fluid Appearance (Clear) 01/28/24 Range/Units 05:48 RBC (4.10-5.20) X 10*6/uL Hgb (12.0-15.0) g/dL Hct (37.2-46.3) % MCHC (32.0-37.0) g/dL RDW (11.5-14.5) % Immature Gran # (0.00-0.04) X 10*3/uL Eosinophils # (0.04-0.35) X 10*3/uL Sodium (135-145) mmol/L Potassium (3.5-5.5) mmol/L Glucose (70-110) mg/dL POC Glucose (mg/dL) 140 H (70-110) mg/dL Calcium (8.7-10.3) mg/dL Total Protein (6.2-8.2) g/dL Albumin (3.8-4.9) g/dL Albumin/Globulin Ratio (1.60-3.17) Ratio Fluid Appearance (Clear) Assessment and Plan Assessment: Shortness of breath, likely multifactorial related to congestive heart failure, COPD, underlying known history of lung mass Acute on chronic diastolic congestive heart failure exacerbation Underlying history of valvular heart disease Underlying history of COPD Underlying history of chronic hypoxic respiratory failure on home oxygen Previous history of rectal cancer received chemotherapy and radiation therapy Underlying history of peripheral vascular disease Underlying history of diabetes mellitus Underlying history of hyperlipidemia Underlying history of hypothyroidism Underlying history of anxiety disorder Underlying history of seizure disorder maintained on Keppra Underlying history of lung mass suspicious for lung cancer followed by pulmonary as outpatient At this time patient was seen and examined Home medications reviewed and reordered Cardiology and pulmonary consultation requested Patient was started on IV antibiotic in the emergency room For DVT prophylaxis subcu Anup Will follow closely
--- NOTE | 2024-01-28 10:29 | P.CNOR ---
History of Present Illness - [facility] Consult date: 01/28/24 Consult reason: joint pain (Left knee pain.) History of present illness: This is a 74-year-old female admitted to [facility] on 01/23/2024 with weakness. She states that she fell in her home and landed with her left foot underneath her. She isn't having significant knee pain since the fall. She has history of total left knee arthroplasty more than 20 years ago with . She has had no problems with her knee prior to this. She states that her knee has been painful and she is having difficulty moving the knee. Prior to her fall she ambulated a little bit with a walker. Otherwise she is wheelchair-bound. We are consulted for orthopedic evaluation of the left knee. Past Medical History Past Medical History: Cancer, COPD, CVA/TIA, Diabetes Mellitus, Hyperlipidemia, Sleep Apnea/CPAP/BIPAP, Thyroid Disorder, Vascular Disorder Additional Past Medical History / Comment(s): Anal cancer with chemo and rad. N ov 2016., hx Kidney stones, PVD, "mild tremor on left side, -Dystonia"- STATES TOLD IT WAS NOT SEIZURES -SHAKING LASTS SECONDS AND IS GONE. 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 ,States yeast infection in genital area and folds of abd., diet controlled diabetes., has stimulator left hip for back pain (not working)., PAD. Recent diagosis of lung cancer History of Any Multi-Drug Resistant Organisms: None Reported Past Surgical History: Appendectomy, Back Surgery, Bladder Surgery, Cholecystectomy, Hysterectomy, Joint Replacement Additional Past Surgical History / Comment(s): Bilateral knee replacements, right shoulder rotator cuff X2, bilateral iliac femoral stents, bladder suspension X2, right Mediport removed, left lung biopsy, lymph node biopsy, left groin biopsy(malignant). bilateral carpal tunnel, bilateral cataracts, right shoulder replacement. stimulator in hip (left) for back, bilateral iliac arterial stents., R femoral stent Past Anesthesia/Blood Transfusion Reactions: No Reported Reaction, Family History of Problems w/ Anesthesia Additional Past Anesthesia/Blood Transfusion Reaction / Comm: Claustrophobic., vomited and aspirated during colonoscopy. son had difficulty waking up after surgery Past Psychological History: Anxiety, Depression Smoking Status: Former smoker Past Alcohol Use History: None Reported Additional Past Alcohol Use History / Comment(s): quit smoking 2 years, smoked 1 ppd for over 50 years. vapes occasionally. Past Drug Use History: None Reported - Past Family History Sister(s) Family Medical History: Cancer Additional Family Medical History / Comment(s): Lung cancer. other sister heart failure Brother(s) Family Medical History: Cancer Additional Family Medical History / Comment(s): Lung cancer. Mother Family Medical History: Cancer, Fibromyalgia Additional Family Medical History / Comment(s): Drugs and alcohol - of what patient calls "septicemia" Father Family Medical History: Cancer, Coronary Artery Disease (CAD), Hyperlipidemia, Hypertension Additional Family Medical History / Comment(s): Skin cancer. Medications and Allergies Home Medications Medication Instructions Recorded Confirmed Type Levothyroxine Sodium [Synthroid] 25 mcg PO DAILY 08/15/16 01/23/24 History FLUoxetine HCL [PROzac] 40 mg PO DAILY 07/25/20 01/23/24 History Gabapentin [Neurontin] 300 mg PO BID 08/03/22 01/23/24 History Atorvastatin [Lipitor] 80 mg PO HS 04/04/23 01/23/24 History Gabapentin 600 mg PO BID 04/04/23 01/23/24 History carBAMazepine [carBAMazepine ER] 100 mg PO BID 04/04/23 01/23/24 History levETIRAcetam [Keppra] 750 mg PO BID 07/19/23 01/23/24 History Furosemide [Lasix] 40 mg PO BID@0900,1300 08/08/23 01/23/24 History Albuterol Nebulized [Ventolin 2.5 mg INHALATION RT-TID PRN 09/10/23 01/23/24 History Nebulized] Ferrous Sulfate [Iron (65 MG 325 mg PO DAILY 09/10/23 01/23/24 History Elemental)] traZODone HCL [Desyrel] 100 mg PO HS 09/10/23 01/23/24 History ALPRAZolam [Xanax] 0.25 mg PO DAILY PRN 01/23/24 01/23/24 History Albuterol Inhaler [Ventolin Hfa 2 puff INHALATION RT-Q6H PRN 01/23/24 01/23/24 History Inhaler] Doxycycline Hyclate 100 mg PO BID 01/23/24 01/23/24 History HYDROcodone/APAP 7.5-325MG [[place] 1 tab PO BID PRN 01/23/24 01/23/24 History 7.5-325] Pantoprazole [Protonix] 40 mg PO DAILY 01/23/24 01/23/24 History predniSONE See Taper PO DIRECTED 01/23/24 01/23/24 History Allergies Allergy/AdvReac Type Severity Reaction Status Date / Time erythromycin base Allergy Rash/Hives Verified 01/23/24 13:27 Fish Containing Products Allergy Anaphylaxis Verified 01/23/24 13:27 Penicillins Allergy Anaphylaxis Verified 01/23/24 13:27 shellfish derived [Shellfish] Allergy Anaphylaxis Verified 01/23/24 13:27 levofloxacin [From Levaquin] AdvReac Rash/Hives, Verified 01/23/24 13:27 swelling Physical Examination This is a pleasant 74-year-old female in no acute distress. She is alert and oriented 3. Exam of the lower extremities reveals a midline scar about the left knee consistent with her history of total knee replacement. There is a +1 effusion. There is no erythema or increased warmth to the knee. There is no ecchymosis. She is able to actively perform straight leg raise with good quadriceps strength. She has full extension of the knee. She has difficulty actively flexing the knee secondary to pain. I can passively flex her to about 65 with mild pain. There is pain to palpation about the medial and lateral knee along the collateral ligaments. There is minimal joint line tenderness. Ligaments are stable with varus and valgus stress. There is anterior posterior stability in the knee. There is no laxity noted. There is no calf pain with palpation. She has full foot and ankle motion without difficulty or pain. Neurovascular status to the lower extremity is intact. Results Knee x-rays reveal components in good position and alignment. There are no fra ctures noted. No evidence of loosening of the components. - Labs Labs: Abnormal Lab Results - Last 24 Hours (Table) 01/27/24 01/27/24 01/27/24 Range/Units 11:56 14:00 17:09 RBC (4.10-5.20) X 10*6/uL Hgb (12.0-15.0) g/dL Hct (37.2-46.3) % MCHC (32.0-37.0) g/dL RDW (11.5-14.5) % Immature Gran # (0.00-0.04) X 10*3/uL Eosinophils # (0.04-0.35) X 10*3/uL Sodium (135-145) mmol/L Potassium (3.5-5.5) mmol/L Glucose (70-110) mg/dL POC Glucose (mg/dL) 150 H 130 H (70-110) mg/dL Calcium (8.7-10.3) mg/dL Total Protein (6.2-8.2) g/dL Albumin (3.8-4.9) g/dL Albumin/Globulin Ratio (1.60-3.17) Ratio Fluid Appearance Slightly Hazy A (Clear) 01/27/24 01/28/24 01/28/24 Range/Units 20:56 05:32 05:32 RBC 3.38 L (4.10-5.20) X 10*6/uL Hgb 9.8 L (12.0-15.0) g/dL Hct 30.7 L (37.2-46.3) % MCHC 31.9 L (32.0-37.0) g/dL RDW 14.7 H (11.5-14.5) % Immature Gran # 0.09 H (0.00-0.04) X 10*3/uL Eosinophils # 0.46 H (0.04-0.35) X 10*3/uL Sodium 133 L (135-145) mmol/L Potassium 3.4 L (3.5-5.5) mmol/L Glucose 143 H (70-110) mg/dL POC Glucose (mg/dL) 227 H (70-110) mg/dL Calcium 8.2 L (8.7-10.3) mg/dL Total Protein 5.4 L (6.2-8.2) g/dL Albumin 3.0 L (3.8-4.9) g/dL Albumin/Globulin Ratio 1.25 L (1.60-3.17) Ratio Fluid Appearance (Clear) 01/28/24 Range/Units 05:48 RBC (4.10-5.20) X 10*6/uL Hgb (12.0-15.0) g/dL Hct (37.2-46.3) % MCHC (32.0-37.0) g/dL RDW (11.5-14.5) % Immature Gran # (0.00-0.04) X 10*3/uL Eosinophils # (0.04-0.35) X 10*3/uL Sodium (135-145) mmol/L Potassium (3.5-5.5) mmol/L Glucose (70-110) mg/dL POC Glucose (mg/dL) 140 H (70-110) mg/dL Calcium (8.7-10.3) mg/dL Total Protein (6.2-8.2) g/dL Albumin (3.8-4.9) g/dL Albumin/Globulin Ratio (1.60-3.17) Ratio Fluid Appearance (Clear) H & H 01/23/24 01/24/24 01/25/24 Range/Units 11:25 01:10 00:35 Hgb 11.1 L 11.7 10.2 L (11.4-16.0) gm/dL Hct 34.4 37.8 31.4 L (34.0-46.0) % 01/26/24 01/27/24 01/28/24 Range/Units 06:00 04:03 05:32 Hgb 10.2 L 9.7 L 9.8 L (11.4-16.0) gm/dL Hct 31.8 L 30.6 L 30.7 L (34.0-46.0) % Coagulation 01/23/24 Range/Units 11:25 INR 1.0 (<1.2) Result Diagrams: 01/28/24 05:32 01/28/24 05:32 Assessment and Plan (1) Left knee pain Current Visit: Yes Status: Acute Code(s): M25.562 - PAIN IN LEFT KNEE SNOMED Code(s): 5333297338 (2) History of total left knee replacement Current Visit: Yes Status: Acute Code(s): Z96.652 - PRESENCE OF LEFT ARTIFICIAL KNEE JOINT SNOMED Code(s): 8276123820150 (3) Weakness Current Visit: No Status: Acute Code(s): R53.1 - WEAKNESS SNOMED Code(s): 37051090 (4) Sprain of collateral ligament of left knee Current Visit: Yes Status: Acute Code(s): S83.402A - SPRAIN OF UNSP COLLATERAL LIGAMENT OF LEFT KNEE, INIT ENCNTR SNOMED Code(s): 57090787 Plan: The clinical and x-ray findings are discussed with the patient. It is recommended she go into a hinged brace for comfort and stability with ambulating. She is to follow-up in our office in 2-3 weeks for further evaluation. Patient was examined by myself Zeferino Wong MD in addition to Nidia Garcia PA-C, agree with the above history, exam and plan. Suspect MCL sprain, hinged brace for use when ambulating, follow up with out office OP.
--- NOTE | 2024-01-28 11:12 | P.PN ---
Subjective Progress Note Date: 01/28/24 This is a 74-year-old female patient with a known history of chronic obstructive pulmonary disease, former smoker, vapor, anal cancer with chemo and radiation in 2016, hypothyroidism, hyperlipidemia, diabetes mellitus, peripheral vascular disease status post right transmetatarsal amputation. She also has a known history of lung mass being followed in the outpatient setting. Due for a follow-up PET scan January 27, 2024. She also has extensive interstitial opacities and interstitial lung disease and diastolic congestive heart failure. She follows with Dr. Irving and Dr. Richter. She presented here to the emergency room earlier today with complaints of shortness of breath, dizziness and a fall to her knee. No loss of consciousness. Of the left knee revealed no evidence of fracture. Chest x-ray reveals findings of pulmonary edema. Possible atypical pneumonia. Fullness of the right hilum. Underlying mass not excluded. White count 14.5. Hemoglobin 11.1. Platelets 471. Sodium 135. Potassium 3.6. Bicarb 23. BUN 17. Creatinine 0.71. Glucose 204. AST 60. ALT 33. proBNP 2010. Urinalysis with high WBCs and large leukocyte esterase. Influenza screen negative. She is seen today in consultation in the emergency department. She is currently resting on a stretcher. Awake and alert in no acute distress. She is maintaining O2 saturations in the 90s on 3 L/min per nasal cannula. Afebrile. Hemodynamically stable. She has been initiated on ceftriaxone and azithromycin. On IV diuretics. The patient is seen today January 24, 2024 in follow-up on the observation unit. She is currently resting in bed. Awake and alert in no acute distress. She is maintaining O2 saturations in the 90s on 4 L/min per nasal cannula. She is feeling a bit better today compared to yesterday. Not quite back to her baseline. White count 9.2. Hemoglobin 11.7. Platelets 415. Sodium 135. Potassium 3.3. Bicarb 27. BUN 17. Creatinine 0.77. Glucose 04/30/2018. Procalcitonin 0.38. Currently on ceftriaxone and azithromycin. She remains on IV diuretics. Remains on bronchodilators. The patient is seen today January 25, 2020 for follow-up in the observation unit. She is currently awake and alert in no acute distress. She is maintaining good O2 saturations in the 90s on 3 L nasal cannula. She is afebrile. Hemodynamically stable. Follow-up chest x-ray reveals pulmonary venous congestion with small effusions. Urine culture revealed no growth. Blood culture revealed no growth. White count 9.1. Hemoglobin 10.2. Bicarb 26. BUN 15. Creatinine 0.83. Glucose 125. Procalcitonin negative at 0.38. Currently on ceftriaxone per ID service. Continued on IV diuretics. Continued on bronchodilators. Currently in a negative balance. The patient is seen today January 26, 2024 in follow-up on the regular medical floor. She is currently resting comfortably in bed. Awake and alert in no acute distress. She is maintaining good O2 saturations in the 90s on 3 L/min per nasal cannula. She is afebrile. Hemodynamically stable. Urine culture revealed no growth. Blood culture revealed no growth. White count 9.7. Hemoglobin 10.2. Platelets 426. Sodium 134. Potassium 3.8. Bicarb 25. BUN 14. Creatinine 0.9. Glucose 136. She is continued on ceftriaxone. Lovenox for DVT prophylaxis. Remains on oral diuretics. Currently in a negative -1.3 L balance. The patient is seen today January 27, 2024 in follow-up on the regular medical floor. She is awake and alert in no acute distress. Sitting up in bed. Maintaining O2 saturations in the 90s on 3 L/min per nasal cannula. She remains on oral diuretics. Remains on ceftriaxone. Lovenox for DVT prophylaxis. White count 9.8. Hemoglobin 9.7. Platelets 440. Sodium 134. Potassium 3.5. Bicarb 25. BUN 13. Creatinine 0.9. Glucose 136. Legionella screen was negative. CT scan of the chest revealed a right lower lobe pulmonary mass which is grossly similar in size with more fluid density from prior exam. Increasing size of the right hilar lymph node. Increasing moderate right pleural effusion. Redemonstration of pulmonary fibrotic changes with patchy regions of groundglass opacities increase in the left upper lobe. The patient is seen today January 28, 2024 in follow-up on the regular medical floor. She is resting comfortably in bed. Awake and alert in no acute distress. Maintaining good O2 saturations in the 90s on 4 L/min per nasal cannula. She did undergo a right sided thoracentesis yesterday with 1 L of dark yellow fluid removed. Follow-up chest x-ray revealed improved aeration and no pneumothorax. Fluid analysis is showing exudate with a total protein of greater than 3.6 and LDH 222. Cytology pending. White count 9.6. Hemoglobin 9.8. Platelets 404. Sodium 133. Potassium 3.4. Bicarb 27. BUN 12. Creatinine 0.8. Glucose 143. She remains on ceftriaxone. Lovenox for DVT prophylaxis. Objective - Vital Signs Vital signs: Vital Signs Temp 97.8 F 01/28/24 08:00 Pulse 70 01/28/24 08:00 Resp 16 01/28/24 08:00 BP 118/69 01/28/24 08:00 Pulse Ox 94 L 01/28/24 08:00 FiO2 Intake & Output 01/27/24 01/28/24 01/28/24 18:59 06:59 18:59 Intake Total 118 200 240 Output Total 500 550 550 Balance -382 -350 -310 Intake: Oral 118 200 240 Output: Urine 500 550 550 Other: Voiding Method Incontinent Incontinent External Catheter External Catheter External Catheter - Exam GENERAL EXAM: Alert, obese, weak 74-year-old female, resting in bed, on 4 L per nasal cannula, in no apparent distress. HEAD: Normocephalic. EYES: Normal reaction of pupils, equal size. NOSE: Clear with pink turbinates. THROAT: No erythema or exudates. NECK: No masses, no JVD. CHEST: No chest wall deformity. LUNGS: Equal air entry with scattered rhonchi, crackles in the right lung base. CVS: S1 and S2 normal with no audible murmur, regular rhythm. ABDOMEN: No hepatosplenomegaly, normal bowel sounds, no guarding or rigidity. SPINE: No scoliosis or deformity SKIN: No rashes CENTRAL NERVOUS SYSTEM: No focal deficits, tone is normal in all 4 extremities. EXTREMITIES: Transmetatarsal amputation on the right foot. There is no peripheral edema. No clubbing, no cyanosis. Peripheral pulses are intact. - Labs CBC & Chem 7: 01/28/24 05:32 01/28/24 05:32 Labs: Abnormal Lab Results - Last 24 Hours (Table) 01/27/24 01/27/24 01/27/24 Range/Units 11:56 14:00 17:09 RBC (4.10-5.20) X 10*6/uL Hgb (12.0-15.0) g/dL Hct (37.2-46.3) % MCHC (32.0-37.0) g/dL RDW (11.5-14.5) % Immature Gran # (0.00-0.04) X 10*3/uL Eosinophils # (0.04-0.35) X 10*3/uL Sodium (135-145) mmol/L Potassium (3.5-5.5) mmol/L Glucose (70-110) mg/dL POC Glucose (mg/dL) 150 H 130 H (70-110) mg/dL Calcium (8.7-10.3) mg/dL Total Protein (6.2-8.2) g/dL Albumin (3.8-4.9) g/dL Albumin/Globulin Ratio (1.60-3.17) Ratio Fluid Appearance Slightly Hazy A (Clear) 01/27/24 01/28/24 01/28/24 Range/Units 20:56 05:32 05:32 RBC 3.38 L (4.10-5.20) X 10*6/uL Hgb 9.8 L (12.0-15.0) g/dL Hct 30.7 L (37.2-46.3) % MCHC 31.9 L (32.0-37.0) g/dL RDW 14.7 H (11.5-14.5) % Immature Gran # 0.09 H (0.00-0.04) X 10*3/uL Eosinophils # 0.46 H (0.04-0.35) X 10*3/uL Sodium 133 L (135-145) mmol/L Potassium 3.4 L (3.5-5.5) mmol/L Glucose 143 H (70-110) mg/dL POC Glucose (mg/dL) 227 H (70-110) mg/dL Calcium 8.2 L (8.7-10.3) mg/dL Total Protein 5.4 L (6.2-8.2) g/dL Albumin 3.0 L (3.8-4.9) g/dL Albumin/Globulin Ratio 1.25 L (1.60-3.17) Ratio Fluid Appearance (Clear) 01/28/24 Range/Units 05:48 RBC (4.10-5.20) X 10*6/uL Hgb (12.0-15.0) g/dL Hct (37.2-46.3) % MCHC (32.0-37.0) g/dL RDW (11.5-14.5) % Immature Gran # (0.00-0.04) X 10*3/uL Eosinophils # (0.04-0.35) X 10*3/uL Sodium (135-145) mmol/L Potassium (3.5-5.5) mmol/L Glucose (70-110) mg/dL POC Glucose (mg/dL) 140 H (70-110) mg/dL Calcium (8.7-10.3) mg/dL Total Protein (6.2-8.2) g/dL Albumin (3.8-4.9) g/dL Albumin/Globulin Ratio (1.60-3.17) Ratio Fluid Appearance (Clear) Assessment and Plan Assessment: Generalized weakness and fall with injury to left knee, no fracture on x-ray 3 cm masslike consolidative density in the right lower lobe being followed in the outpatient setting. A PET scan from August 19, 2023 revealed right lower lobe pulmonary nodule with increased metabolic activity compatible with malignancy. There is at least 1 right pulmonary hilum lymph node suspicious for metastatic disease. Extensive interstitial opacities along suspicious for ILD versus CHF. She was given a trial of steroids for 4 weeks and was due for a follow-up CT scan of the chest on October 11, 2023. CT scan of the chest was done yesterday 10/08/2023 that revealed similar pleural-based mass of the right lower lobe which is essentially unchanged in overall size and appearance. Possible minimal early cavitation. Pulmonary fibrosis at least moderate in degree. Plan is for follow- up PET scan was to be 01/27/2024 but remains in the hospital Right pleural effusion, status post thoracentesis on 01/27/2024. 1 L of fluid removed. Fluid analysis showing exudate. Cytology pending History of of diastolic congestive heart failure and valvular heart disease, echocardiogram estimated a preserved left ventricular ejection fraction of 55 to 60%, with mild to moderate tricuspid regurgitation, mild mitral stenosis, mild aortic regurgitation. Chronic hypoxemic respiratory failure, secondary to above History of smoking-related interstitial fibrosis, biopsy-proven History of rectal cancer, status post chemo and radiation. Patient's most recent PET scan was from November, which did not show any new areas of abnormal hypermetabolic uptake to suggest active neoplastic recurrence. History of peripheral vascular occlusive disease, status post right femoral tibial bypass. History of previous right toe amputations Chronic microcytic, hypochromic anemia History obstructive sleep apnea History of hyperlipidemia History of CVA/TIA History of hypothyroidism History of frequent urinary tract infections Former tobacco smoker, vaper Plan: The patient was seen and evaluated Labs and medications reviewed Pleural fluid analysis showing exudate Cytology pending Cleared for discharge Follow-up in our office in 1 week Plan is for subacute rehabilitation at discharge This patient was seen independently by the pulmonary nurse practitioner addressing pulmonary issues I have personally seen and examined the patient, performed the documentation and the assessment and plan as written. Number of minutes spent on the visit: 24.
[2024-01-28 12:14] LABS: Glucose,Whole Blood 161 mg/dL (70-110)
--- NOTE | 2024-01-28 15:41 | P.PN ---
Subjective Progress Note Date: 01/28/24 Principal diagnosis: Reason for follow-up is leukocytosis UTI and question of pneumonia Patient is a 74-year-old female with a past medical history significant for diabetes mellitus CVA TIA COPD hyperlipidemia, history of anal cancer with chemoradiation 2016 presenting to the hospital for evaluation of increasing weakness and shortness of breath, she did have a low-grade fever positive UA chest x-ray pulmonary edema versus atypical pneumonia. On today's evaluation that is 01/28/2024, Patient is afebrile this morning patient denies having any chest pain shortness of breath still complaining of cough but not bringing up any sputum, the patient is currently on 4 L current oxygen patient denies any abdominal pain no diarrhea no nausea no vomiting. Patient white count is 9.63, creatinine 0.8, pleural fluid was slightly hazy white count only 912 Objective - Vital Signs Vital signs: Vital Signs Temp 97.8 F 01/28/24 08:00 Pulse 70 01/28/24 08:00 Resp 16 01/28/24 08:00 BP 118/69 01/28/24 08:00 Pulse Ox 94 L 01/28/24 08:00 FiO2 Intake & Output 01/27/24 01/28/24 01/28/24 18:59 06:59 18:59 Intake Total 118 200 240 Output Total 500 550 550 Balance -382 -350 -310 Intake: Oral 118 200 240 Output: Urine 500 550 550 Other: Voiding Method Incontinent Incontinent External Catheter External Catheter External Catheter - Exam GENERAL DESCRIPTION: An elderly female lying in bed in no distress RESPIRATORY SYSTEM: Unlabored breathing , decreased breath sounds at bases HEART: S1 S2 regular rate and rhythm , ABDOMEN: Soft , no tenderness EXTREMITIES: No edema feet - Labs CBC & Chem 7: 01/28/24 05:32 01/28/24 05:32 Labs: Abnormal Lab Results - Last 24 Hours (Table) 01/27/24 01/27/24 01/27/24 Range/Units 11:56 14:00 17:09 RBC (4.10-5.20) X 10*6/uL Hgb (12.0-15.0) g/dL Hct (37.2-46.3) % MCHC (32.0-37.0) g/dL RDW (11.5-14.5) % Immature Gran # (0.00-0.04) X 10*3/uL Eosinophils # (0.04-0.35) X 10*3/uL Sodium (135-145) mmol/L Potassium (3.5-5.5) mmol/L Glucose (70-110) mg/dL POC Glucose (mg/dL) 150 H 130 H (70-110) mg/dL Calcium (8.7-10.3) mg/dL Total Protein (6.2-8.2) g/dL Albumin (3.8-4.9) g/dL Albumin/Globulin Ratio (1.60-3.17) Ratio Fluid Appearance Slightly Hazy A (Clear) 01/27/24 01/28/24 01/28/24 Range/Units 20:56 05:32 05:32 RBC 3.38 L (4.10-5.20) X 10*6/uL Hgb 9.8 L (12.0-15.0) g/dL Hct 30.7 L (37.2-46.3) % MCHC 31.9 L (32.0-37.0) g/dL RDW 14.7 H (11.5-14.5) % Immature Gran # 0.09 H (0.00-0.04) X 10*3/uL Eosinophils # 0.46 H (0.04-0.35) X 10*3/uL Sodium 133 L (135-145) mmol/L Potassium 3.4 L (3.5-5.5) mmol/L Glucose 143 H (70-110) mg/dL POC Glucose (mg/dL) 227 H (70-110) mg/dL Calcium 8.2 L (8.7-10.3) mg/dL Total Protein 5.4 L (6.2-8.2) g/dL Albumin 3.0 L (3.8-4.9) g/dL Albumin/Globulin Ratio 1.25 L (1.60-3.17) Ratio Fluid Appearance (Clear) 01/28/24 Range/Units 05:48 RBC (4.10-5.20) X 10*6/uL Hgb (12.0-15.0) g/dL Hct (37.2-46.3) % MCHC (32.0-37.0) g/dL RDW (11.5-14.5) % Immature Gran # (0.00-0.04) X 10*3/uL Eosinophils # (0.04-0.35) X 10*3/uL Sodium (135-145) mmol/L Potassium (3.5-5.5) mmol/L Glucose (70-110) mg/dL POC Glucose (mg/dL) 140 H (70-110) mg/dL Calcium (8.7-10.3) mg/dL Total Protein (6.2-8.2) g/dL Albumin (3.8-4.9) g/dL Albumin/Globulin Ratio (1.60-3.17) Ratio Fluid Appearance (Clear) Assessment and Plan (1) Leukocytosis Current Visit: Yes Status: Acute Code(s): D72.829 - ELEVATED WHITE BLOOD CELL COUNT, UNSPECIFIED SNOMED Code(s): 941951472 (2) Allergy to multiple antibiotics Current Visit: Yes Status: Acute Code(s): Z88.1 - ALLERGY STATUS TO OTHER ANTIBIOTIC AGENTS SNOMED Code(s): 062392884 (3) Urinary tract infection Current Visit: Yes Status: Acute Code(s): N39.0 - URINARY TRACT INFECTION, SITE NOT SPECIFIED SNOMED Code(s): 24109127 Plan: 1patient presented to hospital with weakness and fall also complaining of increasing shortness of breath but no significant cough or sputum production clinic suspicious low for atypical pneumonia Zithromax has been discontinued. 2patient did have urinary symptoms of burning frequency and lower abdominal discomfort elevated white count admission with a positive UA UTI not entirely excluded. 3-patient with multiple antibiotic ALLERGIES that would limit the number of antibiotic safe to use 4patient Legionella antigen came back negative Mycoplasma IgM pending, patient is status post thoracocentesis fluid slightly hazy however white count not significant elevated patient is covered with Rocephin while waiting for the culture to finalize Dictation was produced using [employer] software. please excuse any grammatical, word or spelling errors. Time with Patient: Less than 30
[2024-01-28 17:19] LABS: Glucose,Whole Blood 137 mg/dL (70-110)
[2024-01-28 20:18] LABS: Glucose,Whole Blood 153 mg/dL (70-110)
[2024-01-29 05:52] LABS: Glucose,Whole Blood 136 mg/dL (70-110)
[2024-01-29 09:01] LABS: Basophils # (A) 0.04 X 10*3/uL (0.00-0.10); Basophils % (A) 0.5 %; Eosinophils # (A) 0.43 X 10*3/uL (0.04-0.35); Eosinophils % (A) 4.9 %; HCT 30.6 % (37.2-46.3); HGB 9.8 g/dL (12.0-15.0); Lymphocytes # (A) 2.58 X 10*3/uL (0.90-5.00); Lymphocytes % (A) 29.4 %; MCH 28.4 pg (27.0-32.0); MCV 88.7 FL (80.0-97.0); Monocytes # (A) 0.83 X 10*3/uL (0.20-1.00); Monocytes % (A) 9.5 %; NRBC Per 100 WBC 0 X 10*3/uL (0.00-0.01); Neutrophils # (A) 4.83 X 10*3/uL (1.80-7.70); Platelet Count 431 X 10*3/uL (140-440); RBC 3.45 X 10*6/uL (4.10-5.20); RDW 14.8 % (11.5-14.5); WBC 8.77 X 10*3/uL (4.50-10.00)
[2024-01-29 09:11] LABS: ALT 18 U/L (8-44); AST 30 U/L (13-35); Albumin 3.1 g/dL (3.8-4.9); Albumin/Globulin Ratio 1.24 Ratio (1.60-3.17); Alkaline Phosphatase 84 U/L (41-126); BUN/Creat Ratio 15.25 Ratio (12.00-20.00); Blood Urea Nitrogen 12.2 mg/dL (9.0-27.0); Calcium 8.3 mg/dL (8.7-10.3); Chloride 94 mmol/L (96-109); Globulin 2.5 g/dL (1.6-3.3); Glucose 126 mg/dL (70-110); Potassium 3.4 mmol/L (3.5-5.5); Sodium 134 mmol/L (135-145); Total Bilirubin 0.3 mg/dL (0.3-1.2); Total Protein 5.6 g/dL (6.2-8.2)
--- NOTE | 2024-01-29 09:24 | P.PN ---
Subjective Progress Note Date: 01/29/24 Principal diagnosis: Left knee pain. History of total left knee arthroplasty. This is a 74-year-old female admitted to [facility] on 01/23/2024 with weakness. She states that she fell in her home and landed with her left foot underneath her. She isn't having significant knee pain since the fall. She has history of total left knee arthroplasty more than 20 years ago with . She has had no problems with her knee prior to this. She states that her knee has been painful and she is having difficulty moving the knee. Prior to her fall she ambulated a little bit with a walker. Otherwise she is wheelchair-bound. We are consulted for orthopedic evaluation of the left knee. 01/29/2024: The patient has not yet received her brace. She has not been out of bed other than in the wheelchair to get to the bathroom. She has no new complaints or concerns today. Vital signs are stable. Objective - Vital Signs Vital signs: Vital Signs Temp 97.8 F 01/29/24 07:17 Pulse 61 01/29/24 07:17 Resp 17 01/29/24 07:17 BP 96/56 01/29/24 07:17 Pulse Ox 96 01/29/24 07:17 FiO2 Intake & Output 01/28/24 01/29/24 01/29/24 18:59 06:59 18:59 Intake Total 240 240 Output Total 900 700 Balance -660 -460 Intake: Oral 240 240 Output: Urine 900 700 Other: Voiding Method External Catheter External Catheter External Catheter - Exam This is a pleasant 74-year-old female in no acute distress. She is alert and oriented 3. Exam of the lower extremities reveals a midline scar about the left knee consistent with her history of total knee replacement. There is a +1 effusion. There is no erythema or increased warmth to the knee. There is no ecchymosis. She is able to actively perform straight leg raise with good quadriceps strength. She has full extension of the knee. She has difficulty actively flexing the knee secondary to pain. I can passively flex her to about 65 with mild pain. There is pain to palpation about the medial and lateral knee along the collateral ligaments. There is minimal joint line tenderness. Ligaments are stable with varus and valgus stress. There is anterior posterior stability in the knee. There is no laxity noted. There is no calf pain with palpation. She has full foot and ankle motion without difficulty or pain. Neur ovascular status to the lower extremity is intact. - Labs CBC & Chem 7: 01/29/24 05:36 01/29/24 05:36 Labs: Abnormal Lab Results - Last 24 Hours (Table) 01/28/24 01/28/24 01/28/24 Range/Units 12:13 17:17 20:17 RBC (4.10-5.20) X 10*6/uL Hgb (12.0-15.0) g/dL Hct (37.2-46.3) % RDW (11.5-14.5) % Immature Gran # (0.00-0.04) X 10*3/uL Eosinophils # (0.04-0.35) X 10*3/uL Sodium (135-145) mmol/L Potassium (3.5-5.5) mmol/L Chloride (96-109) mmol/L Glucose (70-110) mg/dL POC Glucose (mg/dL) 161 H 137 H 153 H (70-110) mg/dL Calcium (8.7-10.3) mg/dL Total Protein (6.2-8.2) g/dL Albumin (3.8-4.9) g/dL Albumin/Globulin Ratio (1.60-3.17) Ratio 01/29/24 01/29/24 01/29/24 Range/Units 05:36 05:36 05:51 RBC 3.45 L (4.10-5.20) X 10*6/uL Hgb 9.8 L (12.0-15.0) g/dL Hct 30.6 L (37.2-46.3) % RDW 14.8 H (11.5-14.5) % Immature Gran # 0.06 H (0.00-0.04) X 10*3/uL Eosinophils # 0.43 H (0.04-0.35) X 10*3/uL Sodium 134 L (135-145) mmol/L Potassium 3.4 L (3.5-5.5) mmol/L Chloride 94 L (96-109) mmol/L Glucose 126 H (70-110) mg/dL POC Glucose (mg/dL) 136 H (70-110) mg/dL Calcium 8.3 L (8.7-10.3) mg/dL Total Protein 5.6 L (6.2-8.2) g/dL Albumin 3.1 L (3.8-4.9) g/dL Albumin/Globulin Ratio 1.24 L (1.60-3.17) Ratio Microbiology - Last 24 Hours (Table) 01/27/24 14:00 Gram Stain - Preliminary Pleural Fluid Body Fluid Culture - Preliminary 01/23/24 13:43 Blood Culture - Final Blood 01/27/24 14:00 Acid Fast Bacilli Smear - Preliminary Pleural Fluid Assessment and Plan (1) Left knee pain Current Visit: Yes Status: Acute Code(s): M25.562 - PAIN IN LEFT KNEE SNOMED Code(s): 7707180181 (2) History of total left knee replacement Current Visit: Yes Status: Acute Code(s): Z96.652 - PRESENCE OF LEFT ARTIFICIAL KNEE JOINT SNOMED Code(s): 6875740749425 (3) Weakness Current Visit: No Status: Acute Code(s): R53.1 - WEAKNESS SNOMED Code(s): 89212928 (4) Sprain of collateral ligament of left knee Current Visit: Yes Status: Acute Code(s): S83.402A - SPRAIN OF UNSP COLLATERAL LIGAMENT OF LEFT KNEE, INIT ENCNTR SNOMED Code(s): 39384691 Plan: The clinical and x-ray findings are discussed with the patient. It is recommended she go into a hinged brace for comfort and stability with ambulating. She is awaiting the brace at this time. She is to follow-up in our office in 2-3 weeks for further evaluation.
--- NOTE | 2024-01-29 11:13 | P.PN ---
Subjective Progress Note Date: 01/29/24 This is a 74-year-old female patient with a known history of chronic obstructive pulmonary disease, former smoker, vapor, anal cancer with chemo and radiation in 2016, hypothyroidism, hyperlipidemia, diabetes mellitus, peripheral vascular disease status post right transmetatarsal amputation. She also has a known history of lung mass being followed in the outpatient setting. Due for a follow-up PET scan January 27, 2024. She also has extensive interstitial opacities and interstitial lung disease and diastolic congestive heart failure. She follows with Dr. Irving and Dr. Richter. She presented here to the emergency room earlier today with complaints of shortness of breath, dizziness and a fall to her knee. No loss of consciousness. Of the left knee revealed no evidence of fracture. Chest x-ray reveals findings of pulmonary edema. Possible atypical pneumonia. Fullness of the right hilum. Underlying mass not excluded. White count 14.5. Hemoglobin 11.1. Platelets 471. Sodium 135. Potassium 3.6. Bicarb 23. BUN 17. Creatinine 0.71. Glucose 204. AST 60. ALT 33. proBNP 2010. Urinalysis with high WBCs and large leukocyte esterase. Influenza screen negative. She is seen today in consultation in the emergency department. She is currently resting on a stretcher. Awake and alert in no acute distress. She is maintaining O2 saturations in the 90s on 3 L/min per nasal cannula. Afebrile. Hemodynamically stable. She has been initiated on ceftriaxone and azithromycin. On IV diuretics. The patient is seen today January 24, 2024 in follow-up on the observation unit. She is currently resting in bed. Awake and alert in no acute distress. She is maintaining O2 saturations in the 90s on 4 L/min per nasal cannula. She is feeling a bit better today compared to yesterday. Not quite back to her baseline. White count 9.2. Hemoglobin 11.7. Platelets 415. Sodium 135. Potassium 3.3. Bicarb 27. BUN 17. Creatinine 0.77. Glucose 04/30/2018. Procalcitonin 0.38. Currently on ceftriaxone and azithromycin. She remains on IV diuretics. Remains on bronchodilators. The patient is seen today January 25, 2020 for follow-up in the observation unit. She is currently awake and alert in no acute distress. She is maintaining good O2 saturations in the 90s on 3 L nasal cannula. She is afebrile. Hemodynamically stable. Follow-up chest x-ray reveals pulmonary venous congestion with small effusions. Urine culture revealed no growth. Blood culture revealed no growth. White count 9.1. Hemoglobin 10.2. Bicarb 26. BUN 15. Creatinine 0.83. Glucose 125. Procalcitonin negative at 0.38. Currently on ceftriaxone per ID service. Continued on IV diuretics. Continued on bronchodilators. Currently in a negative balance. The patient is seen today January 26, 2024 in follow-up on the regular medical floor. She is currently resting comfortably in bed. Awake and alert in no acute distress. She is maintaining good O2 saturations in the 90s on 3 L/min per nasal cannula. She is afebrile. Hemodynamically stable. Urine culture revealed no growth. Blood culture revealed no growth. White count 9.7. Hemoglobin 10.2. Platelets 426. Sodium 134. Potassium 3.8. Bicarb 25. BUN 14. Creatinine 0.9. Glucose 136. She is continued on ceftriaxone. Lovenox for DVT prophylaxis. Remains on oral diuretics. Currently in a negative -1.3 L balance. The patient is seen today January 27, 2024 in follow-up on the regular medical floor. She is awake and alert in no acute distress. Sitting up in bed. Maintaining O2 saturations in the 90s on 3 L/min per nasal cannula. She remains on oral diuretics. Remains on ceftriaxone. Lovenox for DVT prophylaxis. White count 9.8. Hemoglobin 9.7. Platelets 440. Sodium 134. Potassium 3.5. Bicarb 25. BUN 13. Creatinine 0.9. Glucose 136. Legionella screen was negative. CT scan of the chest revealed a right lower lobe pulmonary mass which is grossly similar in size with more fluid density from prior exam. Increasing size of the right hilar lymph node. Increasing moderate right pleural effusion. Redemonstration of pulmonary fibrotic changes with patchy regions of groundglass opacities increase in the left upper lobe. The patient is seen today January 28, 2024 in follow-up on the regular medical floor. She is resting comfortably in bed. Awake and alert in no acute distress. Maintaining good O2 saturations in the 90s on 4 L/min per nasal cannula. She did undergo a right sided thoracentesis yesterday with 1 L of dark yellow fluid removed. Follow-up chest x-ray revealed improved aeration and no pneumothorax. Fluid analysis is showing exudate with a total protein of greater than 3.6 and LDH 222. Cytology pending. White count 9.6. Hemoglobin 9.8. Platelets 404. Sodium 133. Potassium 3.4. Bicarb 27. BUN 12. Creatinine 0.8. Glucose 143. She remains on ceftriaxone. Lovenox for DVT prophylaxis. The patient is seen today January 29, 2024 in follow-up on the regular medical floor. She is currently resting comfortably in bed. Awake and alert in no acute distress. Maintaining O2 saturations in the 90s on 4 L/min per nasal cannula. No worsening shortness of breath, cough or congestion. She is continued on bronchodilators. Continued on antibiotics in the form of ceftriaxone. Lovenox for DVT prophylaxis. Transitioned to oral diuretics. Pleural fluid cultures revealed no growth. Cytology pending. White count 8.7. Hemoglobin 9.8. Platelets 431. Sodium 134. Potassium 3.4. Bicarb 28. BUN 12. Creatinine 0.8. Glucose 126. Objective - Vital Signs Vital signs: Vital Signs Temp 97.8 F 01/29/24 07:17 Pulse 61 01/29/24 07:17 Resp 17 01/29/24 07:17 BP 96/56 01/29/24 07:17 Pulse Ox 96 01/29/24 07:17 FiO2 Intake & Output 01/28/24 01/29/24 01/29/24 18:59 06:59 18:59 Intake Total 240 240 Output Total 900 700 Balance -660 -460 Intake: Oral 240 240 Output: Urine 900 700 Other: Voiding Method External Catheter External Catheter External Catheter - Exam GENERAL EXAM: Alert, obese, weak 74-year-old female, in no apparent distress. HEAD: Normocephalic. EYES: Normal reaction of pupils, equal size. NOSE: Clear with pink turbinates. THROAT: No erythema or exudates. NECK: No masses, no JVD. CHEST: No chest wall deformity. LUNGS: Equal air entry with scattered rhonchi, crackles in the right lung base. On 4 L nasal cannula. CVS: S1 and S2 normal with no audible murmur, regular rhythm. ABDOMEN: No hepatosplenomegaly, normal bowel sounds, no guarding or rigidity. SPINE: No scoliosis or deformity SKIN: No rashes CENTRAL NERVOUS SYSTEM: No focal deficits, tone is normal in all 4 extremities. EXTREMITIES: Transmetatarsal amputation on the right foot. There is no peripheral edema. No clubbing, no cyanosis. Peripheral pulses are intact. - Labs CBC & Chem 7: 01/29/24 05:36 01/29/24 05:36 Labs: Abnormal Lab Results - Last 24 Hours (Table) 01/28/24 01/28/24 01/28/24 Range/Units 12:13 17:17 20:17 RBC (4.10-5.20) X 10*6/uL Hgb (12.0-15.0) g/dL Hct (37.2-46.3) % RDW (11.5-14.5) % Immature Gran # (0.00-0.04) X 10*3/uL Eosinophils # (0.04-0.35) X 10*3/uL Sodium (135-145) mmol/L Potassium (3.5-5.5) mmol/L Chloride (96-109) mmol/L Glucose (70-110) mg/dL POC Glucose (mg/dL) 161 H 137 H 153 H (70-110) mg/dL Calcium (8.7-10.3) mg/dL Total Protein (6.2-8.2) g/dL Albumin (3.8-4.9) g/dL Albumin/Globulin Ratio (1.60-3.17) Ratio 01/29/24 01/29/24 01/29/24 Range/Units 05:36 05:36 05:51 RBC 3.45 L (4.10-5.20) X 10*6/uL Hgb 9.8 L (12.0-15.0) g/dL Hct 30.6 L (37.2-46.3) % RDW 14.8 H (11.5-14.5) % Immature Gran # 0.06 H (0.00-0.04) X 10*3/uL Eosinophils # 0.43 H (0.04-0.35) X 10*3/uL Sodium 134 L (135-145) mmol/L Potassium 3.4 L (3.5-5.5) mmol/L Chloride 94 L (96-109) mmol/L Glucose 126 H (70-110) mg/dL POC Glucose (mg/dL) 136 H (70-110) mg/dL Calcium 8.3 L (8.7-10.3) mg/dL Total Protein 5.6 L (6.2-8.2) g/dL Albumin 3.1 L (3.8-4.9) g/dL Albumin/Globulin Ratio 1.24 L (1.60-3.17) Ratio Microbiology - Last 24 Hours (Table) 01/27/24 14:00 Gram Stain - Preliminary Pleural Fluid Body Fluid Culture - Preliminary 01/23/24 13:43 Blood Culture - Final Blood 01/27/24 14:00 Acid Fast Bacilli Smear - Preliminary Pleural Fluid Assessment and Plan Assessment: Generalized weakness and fall with injury to left knee, no fracture on x-ray. Recommended knee brace per orthopedics 3 cm masslike consolidative density in the right lower lobe being followed in the outpatient setting. A PET scan from August 19, 2023 revealed right lower lobe pulmonary nodule with increased metabolic activity compatible with malignancy. There is at least 1 right pulmonary hilum lymph node suspicious for metastatic disease. Extensive interstitial opacities along suspicious for ILD versus CHF. She was given a trial of steroids for 4 weeks and was due for a follow-up CT scan of the chest on October 11, 2023. CT scan of the chest was done yesterday 10/08/2023 that revealed similar pleural-based mass of the right lower lobe which is essentially unchanged in overall size and appearance. Possible minimal early cavitation. Pulmonary fibrosis at least moderate in degree. Plan is for follow- up PET scan was to be 01/27/2024 but remains in the hospital Right pleural effusion, status post thoracentesis on 01/27/2024. 1 L of fluid removed. Fluid analysis showing exudate. Cytology pending History of of diastolic congestive heart failure and valvular heart disease, echocardiogram estimated a preserved left ventricular ejection fraction of 55 to 60%, with mild to moderate tricuspid regurgitation, mild mitral stenosis, mild aortic regurgitation. Chronic hypoxemic respiratory failure, secondary to above History of smoking-related interstitial fibrosis, biopsy-proven History of rectal cancer, status post chemo and radiation. Patient's most recent PET scan was from November, which did not show any new areas of abnormal hypermetabolic uptake to suggest active neoplastic recurrence. History of peripheral vascular occlusive disease, status post right femoral tibial bypass. History of previous right toe amputations Chronic microcytic, hypochromic anemia History obstructive sleep apnea History of hyperlipidemia History of CVA/TIA History of hypothyroidism History of frequent urinary tract infections Former tobacco smoker, vaper Plan: The patient was seen and evaluated Labs and medications reviewed Pleural fluid cytology pending Plan is for subacute rehabilitation at discharge Follow-up in our office in 1 week This patient was seen independently by the pulmonary nurse practitioner addressing pulmonary issues I have personally seen and examined the patient, performed the documentation and the assessment and plan as written. Number of minutes spent on the visit: 23. Dictation was produced using [employer] dictation software. Please excuse any grammatical, word or spelling errors.
[2024-01-29 12:07] LABS: Glucose,Whole Blood 170 mg/dL (70-110)
--- NOTE | 2024-01-29 13:12 | P.PN ---
Subjective Progress Note Date: 01/29/24 Alexia Rubin, is a 74-year-old female who presented to [facility] emergency room with a chief complaint of worsening shortness of breath She was evaluated in the emergency room vital examination on presentation revealed a temperature of 99 pulse 82 respiration 22 blood pressure 87/59 pulse ox 93% on 4 L nasal cannula Laboratory data reveals a white blood count of 14.5 hemoglobin 11.1 platelet count 471 BUN 17 creatinine 0.71 urine analysis revealed evidence of urinary tract infection Testing in the emergency room revealed EKG revealed normal sinus rhythm with nonspecific T wave abnormality, chest x-ray revealed evidence of pulmonary edema versus atypical pneumonia Patient was admitted to medical floor for further evaluation and treatment Past medical history is significant for history of chronic obstructive pulmonary disease, history of hypertension, history of hyperlipidemia, history of diabetes mellitus, history of hypothyroidism, history of anal cancer with previous hist ory of chemotherapy, history of diastolic congestive heart failure history of peripheral vascular disease, and history of lung mass followed by pulmonary On review of systems patient is alert and oriented x 3 in no apparent distress she is complaining of cough with sputum production and occasional blood in the sputum she is also complaining of shortness of breath and generalized weakness otherwise she denies any complaints there is no chest pain no nausea or vomiting no abdominal pain no diarrhea no blood in the stools, she had frequency with urination and urgency no hematuria On 01/25/2024 patient's alert and oriented x 3. Repeat chest x-ray has been ordered this a.m. per pulmonary. 2D echo ordered per cardiology. Patient reports minimum improvement. Remains on IV Lasix and IV Rocephin. Patient is hoping to be discharged home tomorrow so she can make it to her PET scan on . Current vital signs temp 98.3, heart rate 70, respiratory rate 17, blood pressure 106/55 with a pulse ox of 94% on room air On 01/26/2024 patient was seen and examined on the medical floor she is alert and oriented x 3 in no apparent distress, she is still complaining of shortness of breath with any activity, she is also complaining of left knee pain with inability to stand or walk, otherwise she denies any complaints there is no fever or chills no headache or dizziness no chest pain, no palpitation no cough no nausea or vomiting no abdominal pain no diarrhea, she is still having pain with urination. Patient is not ready for discharge at this time, we will continue with IV antibiotics, continue with PT and OT, patient may need to be transferred to rehab prior to going home, daughter was instructed to cancel appointment for PET scan tomorrow, and reschedule in the next 2 to 3 weeks. On 01/27/2024 patient was seen and examined on the medical floor she is alert and oriented x 3 in no apparent distress, she is still complaining of shortness of breath with, she is also complaining of left knee pain with inability to stand or walk, otherwise she denies any complaints there is no fever or chills no headache or dizziness no chest pain, no palpitation no cough no nausea or vomiting no abdominal pain no diarrhea, she is still having pain with urination. On 01/28/2024 patient is alert and oriented x 3. Patient underwent right-sided thoracentesis yesterday 1 L removed some improvement.on 10/28/2023 patient is alert and oriented 3. Patient underwent right-sided thoracentesis yesterday 1 L removed some improvement. Denies chest pain. Patient denies nausea vomiting or diarrhea. Patient denies any urinary burning or frequency On 01/29/2024 patient was seen and examined on the medical floor she is alert and oriented x 3 in no apparent distress, she is still complaining of g eneralized weakness and shortness of breath with activity otherwise she denies any complaints there is no fever or chills no headache or dizziness no chest pain no palpitation, no nausea or vomiting no abdominal pain no diarrhea no blood in the stools, she is still having burning with urination no frequency or urgency and no hematuria. At this time will transition to oral antibiotic and oral diuretics, patient will need to go to rehab after this admission. Objective - Vital Signs Vital signs: Vital Signs Temp 97.8 F 01/29/24 07:17 Pulse 61 01/29/24 07:17 Resp 17 01/29/24 07:17 BP 96/56 01/29/24 07:17 Pulse Ox 96 01/29/24 07:17 FiO2 Intake & Output 01/28/24 01/29/24 01/29/24 18:59 06:59 18:59 Intake Total 240 240 Output Total 900 700 Balance -660 -460 Intake: Oral 240 240 Output: Urine 900 700 Other: Voiding Method External Catheter External Catheter External Catheter - Exam In general patient is alert and oriented x 3 in no distress HEENT head normocephalic and atraumatic Neck is supple no JVD no goiter no lymphadenopathy no carotid bruit Chest examination revealed scattered crackles bilaterally no wheezing Cardiac exam reveals regular heart sounds S1 and S2 no gallops no murmurs Abdomen is soft nontender no organomegaly with normal bowel sounds Extremity exam reveals no edema no cyanosis or clubbing Neurological examination reveals no gross focal deficits - Labs CBC & Chem 7: 01/29/24 05:36 01/29/24 05:36 Labs: Abnormal Lab Results - Last 24 Hours (Table) 01/28/24 01/28/24 01/28/24 Range/Units 12:13 17:17 20:17 RBC (4.10-5.20) X 10*6/uL Hgb (12.0-15.0) g/dL Hct (37.2-46.3) % RDW (11.5-14.5) % Immature Gran # (0.00-0.04) X 10*3/uL Eosinophils # (0.04-0.35) X 10*3/uL Sodium (135-145) mmol/L Potassium (3.5-5.5) mmol/L Chloride (96-109) mmol/L Glucose (70-110) mg/dL POC Glucose (mg/dL) 161 H 137 H 153 H (70-110) mg/dL Calcium (8.7-10.3) mg/dL Total Protein (6.2-8.2) g/dL Albumin (3.8-4.9) g/dL Albumin/Globulin Ratio (1.60-3.17) Ratio 01/29/24 01/29/24 01/29/24 Range/Units 05:36 05:36 05:51 RBC 3.45 L (4.10-5.20) X 10*6/uL Hgb 9.8 L (12.0-15.0) g/dL Hct 30.6 L (37.2-46.3) % RDW 14.8 H (11.5-14.5) % Immature Gran # 0.06 H (0.00-0.04) X 10*3/uL Eosinophils # 0.43 H (0.04-0.35) X 10*3/uL Sodium 134 L (135-145) mmol/L Potassium 3.4 L (3.5-5.5) mmol/L Chloride 94 L (96-109) mmol/L Glucose 126 H (70-110) mg/dL POC Glucose (mg/dL) 136 H (70-110) mg/dL Calcium 8.3 L (8.7-10.3) mg/dL Total Protein 5.6 L (6.2-8.2) g/dL Albumin 3.1 L (3.8-4.9) g/dL Albumin/Globulin Ratio 1.24 L (1.60-3.17) Ratio Microbiology - Last 24 Hours (Table) 01/27/24 14:00 Gram Stain - Preliminary Pleural Fluid Body Fluid Culture - Preliminary 01/23/24 13:43 Blood Culture - Final Blood 01/27/24 14:00 Acid Fast Bacilli Smear - Preliminary Pleural Fluid Assessment and Plan Plan: Shortness of breath, likely multifactorial related to congestive heart failure, COPD, underlying known history of lung mass Acute on chronic diastolic congestive heart failure exacerbation Underlying history of valvular heart disease Underlying history of COPD Underlying history of chronic hypoxic respiratory failure on home oxygen Previous history of rectal cancer received chemotherapy and radiation therapy Underlying history of peripheral vascular disease Underlying history of diabetes mellitus Underlying history of hyperlipidemia Underlying history of hypothyroidism Underlying history of anxiety disorder Underlying history of seizure disorder maintained on Keppra Underlying history of lung mass suspicious for lung cancer followed by pulmonary as outpatient At this time patient was seen and examined Home medications reviewed and reordered Cardiology and pulmonary consultation requested Patient was started on IV antibiotic in the emergency room For DVT prophylaxis subcu Anup Will follow closely
[2024-01-29] MEDS: CEFDINIR 300 MG CAP PO SCH (13:36)
--- NOTE | 2024-01-29 15:12 | P.PN ---
Subjective Progress Note Date: 01/29/24 Principal diagnosis: Reason for follow-up is leukocytosis UTI and question of pneumonia Patient is a 74-year-old female with a past medical history significant for diabetes mellitus CVA TIA COPD hyperlipidemia, history of anal cancer with chemoradiation 2016 presenting to the hospital for evaluation of increasing weakness and shortness of breath, she did have a low-grade fever positive UA chest x-ray pulmonary edema versus atypical pneumonia. On today's evaluation that is 01/29/2024,the patient denies any fever or any chills, patient is breathing comfortably on nasal cannula oxygen the patient denies chest pain shortness of breath and no worsening cough, patient denies abdominal pain, no nausea vomiting or diarrhea. Patient white count of 8.77, creatinine 0.8 pleural fluid cultures currently pending Objective - Vital Signs Vital signs: Vital Signs Temp 98.1 F 01/29/24 14:00 Pulse 69 01/29/24 14:00 Resp 16 01/29/24 14:00 BP 102/58 01/29/24 14:00 Pulse Ox 100 01/29/24 14:00 FiO2 Intake & Output 01/28/24 01/29/24 01/29/24 18:59 06:59 18:59 Intake Total 240 240 Output Total 900 700 Balance -660 -460 Intake: Oral 240 240 Output: Urine 900 700 Other: Voiding Method External Catheter External Catheter External Catheter - Exam GENERAL DESCRIPTION: An elderly female lying in bed in no distress RESPIRATORY SYSTEM: Unlabored breathing , decreased breath sounds at bases HEART: S1 S2 regular rate and rhythm , ABDOMEN: Soft , no tenderness EXTREMITIES: No edema feet - Labs CBC & Chem 7: 01/29/24 05:36 01/29/24 05:36 Labs: Abnormal Lab Results - Last 24 Hours (Table) 01/28/24 01/28/24 01/29/24 Range/Units 17:17 20:17 05:36 RBC 3.45 L (4.10-5.20) X 10*6/uL Hgb 9.8 L (12.0-15.0) g/dL Hct 30.6 L (37.2-46.3) % RDW 14.8 H (11.5-14.5) % Immature Gran # 0.06 H (0.00-0.04) X 10*3/uL Eosinophils # 0.43 H (0.04-0.35) X 10*3/uL Sodium (135-145) mmol/L Potassium (3.5-5.5) mmol/L Chloride (96-109) mmol/L Glucose (70-110) mg/dL POC Glucose (mg/dL) 137 H 153 H (70-110) mg/dL Calcium (8.7-10.3) mg/dL Total Protein (6.2-8.2) g/dL Albumin (3.8-4.9) g/dL Albumin/Globulin Ratio (1.60-3.17) Ratio 01/29/24 01/29/24 01/29/24 Range/Units 05:36 05:51 12:06 RBC (4.10-5.20) X 10*6/uL Hgb (12.0-15.0) g/dL Hct (37.2-46.3) % RDW (11.5-14.5) % Immature Gran # (0.00-0.04) X 10*3/uL Eosinophils # (0.04-0.35) X 10*3/uL Sodium 134 L (135-145) mmol/L Potassium 3.4 L (3.5-5.5) mmol/L Chloride 94 L (96-109) mmol/L Glucose 126 H (70-110) mg/dL POC Glucose (mg/dL) 136 H 170 H (70-110) mg/dL Calcium 8.3 L (8.7-10.3) mg/dL Total Protein 5.6 L (6.2-8.2) g/dL Albumin 3.1 L (3.8-4.9) g/dL Albumin/Globulin Ratio 1.24 L (1.60-3.17) Ratio Microbiology - Last 24 Hours (Table) 01/27/24 14:00 Gram Stain - Preliminary Pleural Fluid Body Fluid Culture - Preliminary 01/23/24 13:43 Blood Culture - Final Blood 01/27/24 14:00 Acid Fast Bacilli Smear - Preliminary Pleural Fluid Assessment and Plan (1) Leukocytosis Current Visit: Yes Status: Acute Code(s): D72.829 - ELEVATED WHITE BLOOD CELL COUNT, UNSPECIFIED SNOMED Code(s): 565655405 (2) Allergy to multiple antibiotics Current Visit: Yes Status: Acute Code(s): Z88.1 - ALLERGY STATUS TO OTHER ANTIBIOTIC AGENTS SNOMED Code(s): 724796973 (3) Urinary tract infection Current Visit: Yes Status: Acute Code(s): N39.0 - URINARY TRACT INFECTION, SITE NOT SPECIFIED SNOMED Code(s): 37252208 Plan: 1patient presented to hospital with weakness and fall also complaining of increasing shortness of breath but no significant cough or sputum production clinic suspicious low for atypical pneumonia Zithromax has been discontinued. 2patient did have urinary symptoms of burning frequency and lower abdominal discomfort elevated white count admission with a positive UA UTI not entirely excluded. 3-patient with multiple antibiotic ALLERGIES that would limit the number of antibiotic safe to use 4patient Legionella antigen came back negative Mycoplasma IgM pending, patient is status post thoracocentesis fluid slightly hazy however white count not significant elevated 5patient Rocephin had been switched over to Omnicef to continue and monitor clinical course closely Dictation was produced using [employer] dictation software. please excuse any grammatical, word or spelling errors. Time with Patient: Less than 30
[2024-01-29] MEDS: HYDROcodone/APAP 7.5-325MG 1 EACH TAB PO PRN (16:10)
[2024-01-29 17:11] LABS: Glucose,Whole Blood 148 mg/dL (70-110)
[2024-01-29 20:11] LABS: Glucose,Whole Blood 178 mg/dL (70-110)
[2024-01-30 06:10] LABS: Glucose,Whole Blood 134 mg/dL (70-110)
--- NOTE | 2024-01-30 06:48 | XR ---
EXAMINATION TYPE: XR chest 1V portable DATE OF EXAM: 01/30/2024 COMPARISON: 01/27/2024 HISTORY: CHF, possible effusion TECHNIQUE: Single frontal view of the chest is obtained. FINDINGS: Slight interval worsening in the dffuse interstitial process possibly pulmonary edema and vascular co ngestion. There is no pleural effusion or pneumothorax. The osseous structures are intact. There is a reverse r ight shoulder prosthesis IMPRESSION: Slight interval worsening in the diffuse interstitial process consistent with pulmonary edema and vascular congestion. [facility], , 01/30/2024 6:46 AM
--- NOTE | 2024-01-30 08:11 | P.PN ---
Subjective Progress Note Date: 01/30/24 This is a 74-year-old female patient with a known history of chronic obstructive pulmonary disease, former smoker, vapor, anal cancer with chemo and radiation in 2016, hypothyroidism, hyperlipidemia, diabetes mellitus, peripheral vascular disease status post right transmetatarsal amputation. She also has a known history of lung mass being followed in the outpatient setting. Due for a follow-up PET scan January 27, 2024. She also has extensive interstitial opacities and interstitial lung disease and diastolic congestive heart failure. She follows with Dr. Irving and Dr. Richter. She presented here to the emergency room earlier today with complaints of shortness of breath, dizziness and a fall to her knee. No loss of consciousness. Of the left knee revealed no evidence of fracture. Chest x-ray reveals findings of pulmonary edema. Possible atypical pneumonia. Fullness of the right hilum. Underlying mass not excluded. White count 14.5. Hemoglobin 11.1. Platelets 471. Sodium 135. Potassium 3.6. Bicarb 23. BUN 17. Creatinine 0.71. Glucose 204. AST 60. ALT 33. proBNP 2010. Urinalysis with high WBCs and large leukocyte esterase. Influenza screen negative. She is seen today in consultation in the emergency department. She is currently resting on a stretcher. Awake and alert in no acute distress. She is maintaining O2 saturations in the 90s on 3 L/min per nasal cannula. Afebrile. Hemodynamically stable. She has been initiated on ceftriaxone and azithromycin. On IV diuretics. The patient is seen today January 24, 2024 in follow-up on the observation unit. She is currently resting in bed. Awake and alert in no acute distress. She is maintaining O2 saturations in the 90s on 4 L/min per nasal cannula. She is feeling a bit better today compared to yesterday. Not quite back to her baseline. White count 9.2. Hemoglobin 11.7. Platelets 415. Sodium 135. Potassium 3.3. Bicarb 27. BUN 17. Creatinine 0.77. Glucose 04/30/2018. Procalcitonin 0.38. Currently on ceftriaxone and azithromycin. She remains on IV diuretics. Remains on bronchodilators. The patient is seen today January 25, 2020 for follow-up in the observation unit. She is currently awake and alert in no acute distress. She is maintaining good O2 saturations in the 90s on 3 L nasal cannula. She is afebrile. Hemodynamically stable. Follow-up chest x-ray reveals pulmonary venous congestion with small effusions. Urine culture revealed no growth. Blood culture revealed no growth. White count 9.1. Hemoglobin 10.2. Bicarb 26. BUN 15. Creatinine 0.83. Glucose 125. Procalcitonin negative at 0.38. Currently on ceftriaxone per ID service. Continued on IV diuretics. Continued on bronchodilators. Currently in a negative balance. The patient is seen today January 26, 2024 in follow-up on the regular medical floor. She is currently resting comfortably in bed. Awake and alert in no acute distress. She is maintaining good O2 saturations in the 90s on 3 L/min per nasal cannula. She is afebrile. Hemodynamically stable. Urine culture revealed no growth. Blood culture revealed no growth. White count 9.7. Hemoglobin 10.2. Platelets 426. Sodium 134. Potassium 3.8. Bicarb 25. BUN 14. Creatinine 0.9. Glucose 136. She is continued on ceftriaxone. Lovenox for DVT prophylaxis. Remains on oral diuretics. Currently in a negative -1.3 L balance. The patient is seen today January 27, 2024 in follow-up on the regular medical floor. She is awake and alert in no acute distress. Sitting up in bed. Maintaining O2 saturations in the 90s on 3 L/min per nasal cannula. She remains on oral diuretics. Remains on ceftriaxone. Lovenox for DVT prophylaxis. White count 9.8. Hemoglobin 9.7. Platelets 440. Sodium 134. Potassium 3.5. Bicarb 25. BUN 13. Creatinine 0.9. Glucose 136. Legionella screen was negative. CT scan of the chest revealed a right lower lobe pulmonary mass which is grossly similar in size with more fluid density from prior exam. Increasing size of the right hilar lymph node. Increasing moderate right pleural effusion. Redemonstration of pulmonary fibrotic changes with patchy regions of groundglass opacities increase in the left upper lobe. The patient is seen today January 28, 2024 in follow-up on the regular medical floor. She is resting comfortably in bed. Awake and alert in no acute distress. Maintaining good O2 saturations in the 90s on 4 L/min per nasal cannula. She did undergo a right sided thoracentesis yesterday with 1 L of dark yellow fluid removed. Follow-up chest x-ray revealed improved aeration and no pneumothorax. Fluid analysis is showing exudate with a total protein of greater than 3.6 and LDH 222. Cytology pending. White count 9.6. Hemoglobin 9.8. Platelets 404. Sodium 133. Potassium 3.4. Bicarb 27. BUN 12. Creatinine 0.8. Glucose 143. She remains on ceftriaxone. Lovenox for DVT prophylaxis. The patient is seen today January 29, 2024 in follow-up on the regular medical floor. She is currently resting comfortably in bed. Awake and alert in no acute distress. Maintaining O2 saturations in the 90s on 4 L/min per nasal cannula. No worsening shortness of breath, cough or congestion. She is continued on bronchodilators. Continued on antibiotics in the form of ceftriaxone. Lovenox for DVT prophylaxis. Transitioned to oral diuretics. Pleural fluid cultures revealed no growth. Cytology pending. White count 8.7. Hemoglobin 9.8. Platelets 431. Sodium 134. Potassium 3.4. Bicarb 28. BUN 12. Creatinine 0.8. Glucose 126. The patient is seen today January 30, 2024 in follow-up on the regular medical floor. She is resting comfortably in bed. Maintaining good O2 saturations in the 90s on 4 L/min per nasal cannula. She is currently on bronchodilators, oral diuretics, Lovenox for DVT prophylaxis. She is currently on antibiotics in the form of Omnicef. Urine blood and pleural fluid cultures revealed no growth. Pleural fluid cytology pending. Follow-up chest x-ray shows pulmonary vascular congestion. No pleural effusion or pneumothorax. Glucose 134. Objective - Vital Signs Vital signs: Vital Signs Temp 98.1 F 01/30/24 02:00 Pulse 71 01/30/24 02:00 Resp 18 01/30/24 02:00 BP 90/51 01/30/24 02:00 Pulse Ox 96 01/30/24 02:00 FiO2 Intake & Output 01/29/24 01/30/24 01/30/24 18:59 06:59 18:59 Intake Total 1020 Output Total 600 900 Balance -600 120 Weight 80 kg Intake: Oral 1020 Output: Urine 600 900 Other: Voiding Method External Catheter External Catheter - Exam GENERAL EXAM: Alert, 74-year-old female, on 4 L nasal cannula, resting in bed, in no apparent distress. HEAD: Normocephalic. EYES: Normal reaction of pupils, equal size. NOSE: Clear with pink turbinates. THROAT: No erythema or exudates. NECK: No masses, no JVD. CHEST: No chest wall deformity. LUNGS: Equal air entry with scattered rhonchi, crackles in the right lung base. CVS: S1 and S2 normal with no audible murmur, regular rhythm. ABDOMEN: No hepatosplenomegaly, normal bowel sounds, no guarding or rigidity. SPINE: No scoliosis or deformity SKIN: No rashes CENTRAL NERVOUS SYSTEM: No focal deficits, tone is normal in all 4 extremities. EXTREMITIES: Transmetatarsal amputation on the right foot. There is no peripheral edema. No clubbing, no cyanosis. Peripheral pulses are intact. - Labs CBC & Chem 7: 01/29/24 05:36 01/29/24 05:36 Labs: Abnormal Lab Results - Last 24 Hours (Table) 01/29/24 01/29/24 01/29/24 Range/Units 05:36 05:36 12:06 RBC 3.45 L (4.10-5.20) X 10*6/uL Hgb 9.8 L (12.0-15.0) g/dL Hct 30.6 L (37.2-46.3) % RDW 14.8 H (11.5-14.5) % Immature Gran # 0.06 H (0.00-0.04) X 10*3/uL Eosinophils # 0.43 H (0.04-0.35) X 10*3/uL Sodium 134 L (135-145) mmol/L Potassium 3.4 L (3.5-5.5) mmol/L Chloride 94 L (96-109) mmol/L Glucose 126 H (70-110) mg/dL POC Glucose (mg/dL) 170 H (70-110) mg/dL Calcium 8.3 L (8.7-10.3) mg/dL Total Protein 5.6 L (6.2-8.2) g/dL Albumin 3.1 L (3.8-4.9) g/dL Albumin/Globulin Ratio 1.24 L (1.60-3.17) Ratio 01/29/24 01/29/24 01/30/24 Range/Units 17:10 20:09 06:07 RBC (4.10-5.20) X 10*6/uL Hgb (12.0-15.0) g/dL Hct (37.2-46.3) % RDW (11.5-14.5) % Immature Gran # (0.00-0.04) X 10*3/uL Eosinophils # (0.04-0.35) X 10*3/uL Sodium (135-145) mmol/L Potassium (3.5-5.5) mmol/L Chloride (96-109) mmol/L Glucose (70-110) mg/dL POC Glucose (mg/dL) 148 H 178 H 134 H (70-110) mg/dL Calcium (8.7-10.3) mg/dL Total Protein (6.2-8.2) g/dL Albumin (3.8-4.9) g/dL Albumin/Globulin Ratio (1.60-3.17) Ratio Microbiology - Last 24 Hours (Table) 01/27/24 14:00 Gram Stain - Preliminary Pleural Fluid Body Fluid Culture - Preliminary Assessment and Plan Assessment: Generalized weakness and fall with injury to left knee, no fracture on x-ray. Recommended knee brace per orthopedics 3 cm masslike consolidative density in the right lower lobe being followed in the outpatient setting. A PET scan from August 19, 2023 revealed right lower lobe pulmonary nodule with increased metabolic activity compatible with malignancy. There is at least 1 right pulmonary hilum lymph node suspicious for metastatic disease. Extensive interstitial opacities along suspicious for ILD versus CHF. She was given a trial of steroids for 4 weeks and was due for a follow-up CT scan of the chest on October 11, 2023. CT scan of the chest was done yesterday 10/08/2023 that revealed similar pleural-based mass of the right lower lobe which is essentially unchanged in overall size and appearance. Possible minimal early cavitation. Pulmonary fibrosis at least moderate in degree. Plan is for follow- up PET scan was to be 01/27/2024 but remains in the hospital Right pleural effusion, status post thoracentesis on 01/27/2024. 1 L of fluid removed. Fluid analysis showing exudate. Cytology pending History of of diastolic congestive heart failure and valvular heart disease, echocardiogram estimated a preserved left ventricular ejection fraction of 55 to 60%, with mild to moderate tricuspid regurgitation, mild mitral stenosis, mild aortic regurgitation. Chronic hypoxemic respiratory failure, secondary to above History of smoking-related interstitial fibrosis, biopsy-proven History of rectal cancer, status post chemo and radiation. Patient's most recent PET scan was from November, which did not show any new areas of abnormal hypermetabolic uptake to suggest active neoplastic recurrence. History of peripheral vascular occlusive disease, status post right femoral tibial bypass. History of previous right toe amputations Chronic microcytic, hypochromic anemia History obstructive sleep apnea History of hyperlipidemia History of CVA/TIA History of hypothyroidism History of frequent urinary tract infections Former tobacco smoker, vaper Plan: The patient was seen and evaluated Chest x-ray, labs and medications reviewed Continued on oral diuretics Transitioned to oral antibiotics Pleural fluid cytology pending Follow-up in our office in 1 week Plan is for subacute rehabilitation at discharge This patient was seen independently by the pulmonary nurse practitioner addressing pulmonary issues I have personally seen and examined the patient, performed the documentation and the assessment and plan as written. Number of minutes spent on the visit: 22. Dictation was produced using [employer] dictation software. Please excuse any grammatical, word or spelling errors.
[2024-01-30 09:47] LABS: Basophils # (A) 0.06 X 10*3/uL (0.00-0.10); Basophils % (A) 0.6 %; Eosinophils # (A) 0.28 X 10*3/uL (0.04-0.35); Eosinophils % (A) 2.7 %; HCT 32.4 % (37.2-46.3); HGB 10.1 g/dL (12.0-15.0); Lymphocytes % (A) 28.4 %; MCH 28.1 pg (27.0-32.0); MCHC 31.2 g/dL (32.0-37.0); MCV 90.3 FL (80.0-97.0); Mean Platelet Volume 10.3 FL (9.5-12.2); Monocytes # (A) 1.02 X 10*3/uL (0.20-1.00); NRBC Per 100 WBC 0 X 10*3/uL (0.00-0.01); Neutrophils # (A) 5.87 X 10*3/uL (1.80-7.70); Neutrophils % (A) 57.6 %; Platelet Count 445 X 10*3/uL (140-440); RBC 3.59 X 10*6/uL (4.10-5.20); RDW 14.6 % (11.5-14.5)
--- NOTE | 2024-01-30 09:53 | P.PN ---
Subjective Progress Note Date: 01/30/24 Alexia Rubin, is a 74-year-old female who presented to [facility] emergency room with a chief complaint of worsening shortness of breath She was evaluated in the emergency room vital examination on presentation revealed a temperature of 99 pulse 82 respiration 22 blood pressure 87/59 pulse ox 93% on 4 L nasal cannula Laboratory data reveals a white blood count of 14.5 hemoglobin 11.1 platelet count 471 BUN 17 creatinine 0.71 urine analysis revealed evidence of urinary tract infection Testing in the emergency room revealed EKG revealed normal sinus rhythm with nonspecific T wave abnormality, chest x-ray revealed evidence of pulmonary edema versus atypical pneumonia Patient was admitted to medical floor for further evaluation and treatment Past medical history is significant for history of chronic obstructive pulmonary disease, history of hypertension, history of hyperlipidemia, history of diabetes mellitus, history of hypothyroidism, history of anal cancer with previous hist ory of chemotherapy, history of diastolic congestive heart failure history of peripheral vascular disease, and history of lung mass followed by pulmonary On review of systems patient is alert and oriented x 3 in no apparent distress she is complaining of cough with sputum production and occasional blood in the sputum she is also complaining of shortness of breath and generalized weakness otherwise she denies any complaints there is no chest pain no nausea or vomiting no abdominal pain no diarrhea no blood in the stools, she had frequency with urination and urgency no hematuria On 01/25/2024 patient's alert and oriented x 3. Repeat chest x-ray has been ordered this a.m. per pulmonary. 2D echo ordered per cardiology. Patient reports minimum improvement. Remains on IV Lasix and IV Rocephin. Patient is hoping to be discharged home tomorrow so she can make it to her PET scan on . Current vital signs temp 98.3, heart rate 70, respiratory rate 17, blood pressure 106/55 with a pulse ox of 94% on room air On 01/26/2024 patient was seen and examined on the medical floor she is alert and oriented x 3 in no apparent distress, she is still complaining of shortness of breath with any activity, she is also complaining of left knee pain with inability to stand or walk, otherwise she denies any complaints there is no fever or chills no headache or dizziness no chest pain, no palpitation no cough no nausea or vomiting no abdominal pain no diarrhea, she is still having pain with urination. Patient is not ready for discharge at this time, we will continue with IV antibiotics, continue with PT and OT, patient may need to be transferred to rehab prior to going home, daughter was instructed to cancel appointment for PET scan tomorrow, and reschedule in the next 2 to 3 weeks. On 01/27/2024 patient was seen and examined on the medical floor she is alert and oriented x 3 in no apparent distress, she is still complaining of shortness of breath with, she is also complaining of left knee pain with inability to stand or walk, otherwise she denies any complaints there is no fever or chills no headache or dizziness no chest pain, no palpitation no cough no nausea or vomiting no abdominal pain no diarrhea, she is still having pain with urination. On 01/28/2024 patient is alert and oriented x 3. Patient underwent right-sided thoracentesis yesterday 1 L removed some improvement.on 10/28/2023 patient is alert and oriented 3. Patient underwent right-sided thoracentesis yesterday 1 L removed some improvement. Denies chest pain. Patient denies nausea vomiting or diarrhea. Patient denies any urinary burning or frequency On 01/29/2024 patient was seen and examined on the medical floor she is alert and oriented x 3 in no apparent distress, she is still complaining of g eneralized weakness and shortness of breath with activity otherwise she denies any complaints there is no fever or chills no headache or dizziness no chest pain no palpitation, no nausea or vomiting no abdominal pain no diarrhea no blood in the stools, she is still having burning with urination no frequency or urgency and no hematuria. At this time will transition to oral antibiotic and oral diuretics, patient will need to go to rehab after this admission. On 01/30/2024 patient is alert and oriented x 3. Patient reports improvement with shortness of breath and cough. Discharge planning to rehab [facility]. Patient will follow-up outpatient with oncology services for arrangement of PET scan. Patient denies chest pain. Patient denies nausea vomiting or diarrhea. Patient denies any urinary burning or frequency Objective - Vital Signs Vital signs: Vital Signs Temp 98.1 F 01/30/24 08:00 Pulse 66 01/30/24 08:00 Resp 16 01/30/24 08:00 BP 98/56 10/13/24 08:00 Pulse Ox 95 01/30/24 09:20 FiO2 Intake & Output 01/29/24 01/30/24 01/30/24 18:59 06:59 18:59 Intake Total 1020 118 Output Total 600 900 Balance -600 120 118 Weight 80 kg Intake: Oral 1020 118 Output: Urine 600 900 Other: Voiding Method External Catheter External Catheter External Catheter - Exam In general patient is alert and oriented x 3 in no distress HEENT head normocephalic and atraumatic Neck is supple no JVD no goiter no lymphadenopathy no carotid bruit Chest examination revealed scattered crackles bilaterally no wheezing Cardiac exam reveals regular heart sounds S1 and S2 no gallops no murmurs Abdomen is soft nontender no organomegaly with normal bowel sounds Extremity exam reveals no edema no cyanosis or clubbing Neurological examination reveals no gross focal deficits - Labs CBC & Chem 7: 01/30/24 05:44 01/29/24 05:36 Labs: Abnormal Lab Results - Last 24 Hours (Table) 01/29/24 01/29/24 01/29/24 Range/Units 12:06 17:10 20:09 WBC (4.50-10.00) X 10*3/uL RBC (4.10-5.20) X 10*6/uL Hgb (12.0-15.0) g/dL Hct (37.2-46.3) % MCHC (32.0-37.0) g/dL RDW (11.5-14.5) % Plt Count (140-440) X 10*3/uL Immature Gran # (0.00-0.04) X 10*3/uL Monocytes # (0.20-1.00) X 10*3/uL POC Glucose (mg/dL) 170 H 148 H 178 H (70-110) mg/dL 01/30/24 01/30/24 Range/Units 05:44 06:07 WBC 10.20 H (4.50-10.00) X 10*3/uL RBC 3.59 L (4.10-5.20) X 10*6/uL Hgb 10.1 L (12.0-15.0) g/dL Hct 32.4 L (37.2-46.3) % MCHC 31.2 L (32.0-37.0) g/dL RDW 14.6 H (11.5-14.5) % Plt Count 445 H (140-440) X 10*3/uL Immature Gran # 0.07 H (0.00-0.04) X 10*3/uL Monocytes # 1.02 H (0.20-1.00) X 10*3/uL POC Glucose (mg/dL) 134 H (70-110) mg/dL Microbiology - Last 24 Hours (Table) 01/27/24 14:00 Gram Stain - Preliminary Pleural Fluid Body Fluid Culture - Preliminary Assessment and Plan Plan: Shortness of breath, likely multifactorial related to congestive heart failure, COPD, underlying known history of lung mass Acute on chronic diastolic congestive heart failure exacerbation Underlying history of valvular heart disease Underlying history of COPD Underlying history of chronic hypoxic respiratory failure on home oxygen Previous history of rectal cancer received chemotherapy and radiation therapy Underlying history of peripheral vascular disease Underlying history of diabetes mellitus Underlying history of hyperlipidemia Underlying history of hypothyroidism Underlying history of anxiety disorder Underlying history of seizure disorder maintained on Keppra Underlying history of lung mass suspicious for lung cancer followed by pulmonary as outpatient At this time patient was seen and examined Home medications reviewed and reordered Cardiology and pulmonary consultation requested For DVT prophylaxis subcu Lovenox Will follow closely
[2024-01-30 11:49] LABS: ALT 20 U/L (8-44); AST 36 U/L (13-35); Albumin 3.1 g/dL (3.8-4.9); Albumin/Globulin Ratio 1.24 Ratio (1.60-3.17); Alkaline Phosphatase 83 U/L (41-126); BUN/Creat Ratio 14.88 Ratio (12.00-20.00); Blood Urea Nitrogen 11.9 mg/dL (9.0-27.0); Calcium 8.5 mg/dL (8.7-10.3); Carbon Dioxide 30.1 mmol/L (21.6-31.8); Chloride 96 mmol/L (96-109); Globulin 2.5 g/dL (1.6-3.3); Glucose 126 mg/dL (70-110); Potassium 3.3 mmol/L (3.5-5.5); Sodium 137 mmol/L (135-145); Total Bilirubin 0.3 mg/dL (0.3-1.2); Total Protein 5.6 g/dL (6.2-8.2)
[2024-01-30 12:39] LABS: Glucose,Whole Blood 148 mg/dL (70-110)
--- NOTE | 2024-01-30 16:14 | P.PN ---
Subjective Progress Note Date: 01/30/24 Principal diagnosis: Reason for follow-up is leukocytosis UTI and question of pneumonia Patient is a 74-year-old female with a past medical history significant for diabetes mellitus CVA TIA COPD hyperlipidemia, history of anal cancer with chemoradiation 2016 presenting to the hospital for evaluation of increasing weakness and shortness of breath, she did have a low-grade fever positive UA chest x-ray pulmonary edema versus atypical pneumonia. On today's evaluation that is 01/30/2024,the patient remains to be afebrile, patient is on 2 L nasal cannula supplemental oxygen and denies any shortness of breath no chest pain or any worsening cough.Patient denies having any nausea or vomiting, no abdominal pain and no diarrhea has been reported. Patient white count is 10.20, creatinine 0.8 pleural fluid cultures so far negative cytology was not done Objective - Vital Signs Vital signs: Vital Signs Temp 97.8 F 01/30/24 15:04 Pulse 65 01/30/24 15:04 Resp 16 01/30/24 15:04 BP 101/65 01/30/24 15:04 Pulse Ox 97 01/30/24 15:04 FiO2 Intake & Output 01/29/24 01/30/24 01/30/24 18:59 06:59 18:59 Intake Total 1020 709 Output Total 600 900 400 Balance -600 120 309 Weight 80 kg Intake: Oral 1020 709 Output: Urine 600 900 400 Other: Voiding Method External Catheter External Catheter External Catheter - Exam GENERAL DESCRIPTION: An elderly female lying in bed in no distress RESPIRATORY SYSTEM: Unlabored breathing , decreased breath sounds at bases HEART: S1 S2 regular rate and rhythm , ABDOMEN: Soft , no tenderness EXTREMITIES: No edema feet - Labs CBC & Chem 7: 01/30/24 05:44 01/30/24 05:44 Labs: Abnormal Lab Results - Last 24 Hours (Table) 01/29/24 01/29/24 01/30/24 Range/Units 17:10 20:09 05:44 WBC 10.20 H (4.50-10.00) X 10*3/uL RBC 3.59 L (4.10-5.20) X 10*6/uL Hgb 10.1 L (12.0-15.0) g/dL Hct 32.4 L (37.2-46.3) % MCHC 31.2 L (32.0-37.0) g/dL RDW 14.6 H (11.5-14.5) % Plt Count 445 H (140-440) X 10*3/uL Immature Gran # 0.07 H (0.00-0.04) X 10*3/uL Monocytes # 1.02 H (0.20-1.00) X 10*3/uL Potassium (3.5-5.5) mmol/L Glucose (70-110) mg/dL POC Glucose (mg/dL) 148 H 178 H (70-110) mg/dL Calcium (8.7-10.3) mg/dL AST (13-35) U/L Total Protein (6.2-8.2) g/dL Albumin (3.8-4.9) g/dL Albumin/Globulin Ratio (1.60-3.17) Ratio 01/30/24 01/30/24 01/30/24 Range/Units 05:44 06:07 12:38 WBC (4.50-10.00) X 10*3/uL RBC (4.10-5.20) X 10*6/uL Hgb (12.0-15.0) g/dL Hct (37.2-46.3) % MCHC (32.0-37.0) g/dL RDW (11.5-14.5) % Plt Count (140-440) X 10*3/uL Immature Gran # (0.00-0.04) X 10*3/uL Monocytes # (0.20-1.00) X 10*3/uL Potassium 3.3 L (3.5-5.5) mmol/L Glucose 126 H (70-110) mg/dL POC Glucose (mg/dL) 134 H 148 H (70-110) mg/dL Calcium 8.5 L (8.7-10.3) mg/dL AST 36 H (13-35) U/L Total Protein 5.6 L (6.2-8.2) g/dL Albumin 3.1 L (3.8-4.9) g/dL Albumin/Globulin Ratio 1.24 L (1.60-3.17) Ratio Microbiology - Last 24 Hours (Table) 01/27/24 14:00 Anaerobic Culture - Preliminary Pleural Fluid 01/27/24 14:00 Gram Stain - Preliminary Pleural Fluid Body Fluid Culture - Preliminary Assessment and Plan (1) Leukocytosis Current Visit: Yes Status: Acute Code(s): D72.829 - ELEVATED WHITE BLOOD CELL COUNT, UNSPECIFIED SNOMED Code(s): 007360807 (2) Allergy to multiple antibiotics Current Visit: Yes Status: Acute Code(s): Z88.1 - ALLERGY STATUS TO OTHER ANTIBIOTIC AGENTS SNOMED Code(s): 621486263 (3) Urinary tract infection Current Visit: Yes Status: Acute Code(s): N39.0 - URINARY TRACT INFECTION, SITE NOT SPECIFIED SNOMED Code(s): 46592136 Plan: 1patient presented to hospital with weakness and fall also complaining of increasing shortness of breath but no significant cough or sputum production cli boris suspicious low for atypical pneumonia Zithromax has been discontinued. 2patient did have urinary symptoms of burning frequency and lower abdominal discomfort elevated white count admission with a positive UA UTI not entirely excluded. 3-patient with multiple antibiotic ALLERGIES that would limit the number of antibiotic safe to use 4patient Legionella antigen came back negative Mycoplasma IgM came back negative as well patient is status post thoracocentesis fluid slightly hazy however white count not significant elevated 5patient currently on Omnicef to continue for about a week on discharge Dictation was produced using [employer] dictation software. please excuse any grammatical, word or spelling errors.
[2024-01-30 17:11] LABS: Glucose,Whole Blood 119 mg/dL (70-110)
[2024-01-30 20:02] LABS: Glucose,Whole Blood 158 mg/dL (70-110)
[2024-01-31 05:33] LABS: Glucose,Whole Blood 113 mg/dL (70-110)
[2024-01-31 08:31] VITALS: RESP 15
[2024-01-31 08:35] LABS: Basophils # (A) 0.06 X 10*3/uL (0.00-0.10); Basophils % (A) 0.7 %; Eosinophils % (A) 3.6 %; HCT 34.8 % (37.2-46.3); HGB 10.9 g/dL (12.0-15.0); Lymphocytes # (A) 2.35 X 10*3/uL (0.90-5.00); Lymphocytes % (A) 27.9 %; MCH 28.8 pg (27.0-32.0); MCHC 31.3 g/dL (32.0-37.0); MCV 91.8 FL (80.0-97.0); Mean Platelet Volume 10.5 FL (9.5-12.2); Monocytes # (A) 0.75 X 10*3/uL (0.20-1.00); Monocytes % (A) 8.9 %; NRBC Per 100 WBC 0 X 10*3/uL (0.00-0.01); Neutrophils % (A) 58.3 %; Platelet Count 492 X 10*3/uL (140-440); RBC 3.79 X 10*6/uL (4.10-5.20); RDW 14.6 % (11.5-14.5); WBC 8.41 X 10*3/uL (4.50-10.00)
[2024-01-31 08:47] LABS: ALT 23 U/L (8-44); AST 42 U/L (13-35); Albumin 3.5 g/dL (3.8-4.9); Alkaline Phosphatase 91 U/L (41-126); BUN/Creat Ratio 12.33 Ratio (12.00-20.00); Blood Urea Nitrogen 11.1 mg/dL (9.0-27.0); Calcium 8.9 mg/dL (8.7-10.3); Carbon Dioxide 31.1 mmol/L (21.6-31.8); Chloride 94 mmol/L (96-109); Globulin 2.7 g/dL (1.6-3.3); Glucose 106 mg/dL (70-110); Potassium 3.3 mmol/L (3.5-5.5); Sodium 138 mmol/L (135-145); Total Bilirubin 0.4 mg/dL (0.3-1.2); Total Protein 6.2 g/dL (6.2-8.2)
[2024-01-31 12:03] LABS: Glucose,Whole Blood 138 mg/dL (70-110)
--- NOTE | 2024-01-31 15:59 | P.PN ---
Subjective Progress Note Date: 01/31/24 This is a 74-year-old female patient with a known history of chronic obstructive pulmonary disease, former smoker, vapor, anal cancer with chemo and radiation in 2016, hypothyroidism, hyperlipidemia, diabetes mellitus, peripheral vascular disease status post right transmetatarsal amputation. She also has a known history of lung mass being followed in the outpatient setting. Due for a follow-up PET scan January 27, 2024. She also has extensive interstitial opacities and interstitial lung disease and diastolic congestive heart failure. She follows with Dr. Irving and Dr. Richter. She presented here to the emergency room earlier today with complaints of shortness of breath, dizziness and a fall to her knee. No loss of consciousness. Of the left knee revealed no evidence of fracture. Chest x-ray reveals findings of pulmonary edema. Possible atypical pneumonia. Fullness of the right hilum. Underlying mass not excluded. White count 14.5. Hemoglobin 11.1. Platelets 471. Sodium 135. Potassium 3.6. Bicarb 23. BUN 17. Creatinine 0.71. Glucose 204. AST 60. ALT 33. proBNP 2010. Urinalysis with high WBCs and large leukocyte esterase. Influenza screen negative. She is seen today in consultation in the emergency department. She is currently resting on a stretcher. Awake and alert in no acute distress. She is maintaining O2 saturations in the 90s on 3 L/min per nasal cannula. Afebrile. Hemodynamically stable. She has been initiated on ceftriaxone and azithromycin. On IV diuretics. The patient is seen today January 24, 2024 in follow-up on the observation unit. She is currently resting in bed. Awake and alert in no acute distress. She is maintaining O2 saturations in the 90s on 4 L/min per nasal cannula. She is feeling a bit better today compared to yesterday. Not quite back to her baseline. White count 9.2. Hemoglobin 11.7. Platelets 415. Sodium 135. Potassium 3.3. Bicarb 27. BUN 17. Creatinine 0.77. Glucose 04/30/2018. Procalcitonin 0.38. Currently on ceftriaxone and azithromycin. She remains on IV diuretics. Remains on bronchodilators. The patient is seen today January 25, 2020 for follow-up in the observation unit. She is currently awake and alert in no acute distress. She is maintaining good O2 saturations in the 90s on 3 L nasal cannula. She is afebrile. Hemodynamically stable. Follow-up chest x-ray reveals pulmonary venous congestion with small effusions. Urine culture revealed no growth. Blood culture revealed no growth. White count 9.1. Hemoglobin 10.2. Bicarb 26. BUN 15. Creatinine 0.83. Glucose 125. Procalcitonin negative at 0.38. Currently on ceftriaxone per ID service. Continued on IV diuretics. Continued on bronchodilators. Currently in a negative balance. The patient is seen today January 26, 2024 in follow-up on the regular medical floor. She is currently resting comfortably in bed. Awake and alert in no acute distress. She is maintaining good O2 saturations in the 90s on 3 L/min per nasal cannula. She is afebrile. Hemodynamically stable. Urine culture revealed no growth. Blood culture revealed no growth. White count 9.7. Hemoglobin 10.2. Platelets 426. Sodium 134. Potassium 3.8. Bicarb 25. BUN 14. Creatinine 0.9. Glucose 136. She is continued on ceftriaxone. Lovenox for DVT prophylaxis. Remains on oral diuretics. Currently in a negative -1.3 L balance. The patient is seen today January 27, 2024 in follow-up on the regular medical floor. She is awake and alert in no acute distress. Sitting up in bed. Maintaining O2 saturations in the 90s on 3 L/min per nasal cannula. She remains on oral diuretics. Remains on ceftriaxone. Lovenox for DVT prophylaxis. White count 9.8. Hemoglobin 9.7. Platelets 440. Sodium 134. Potassium 3.5. Bicarb 25. BUN 13. Creatinine 0.9. Glucose 136. Legionella screen was negative. CT scan of the chest revealed a right lower lobe pulmonary mass which is grossly similar in size with more fluid density from prior exam. Increasing size of the right hilar lymph node. Increasing moderate right pleural effusion. Redemonstration of pulmonary fibrotic changes with patchy regions of groundglass opacities increase in the left upper lobe. The patient is seen today January 28, 2024 in follow-up on the regular medical floor. She is resting comfortably in bed. Awake and alert in no acute distress. Maintaining good O2 saturations in the 90s on 4 L/min per nasal cannula. She did undergo a right sided thoracentesis yesterday with 1 L of dark yellow fluid removed. Follow-up chest x-ray revealed improved aeration and no pneumothorax. Fluid analysis is showing exudate with a total protein of greater than 3.6 and LDH 222. Cytology pending. White count 9.6. Hemoglobin 9.8. Platelets 404. Sodium 133. Potassium 3.4. Bicarb 27. BUN 12. Creatinine 0.8. Glucose 143. She remains on ceftriaxone. Lovenox for DVT prophylaxis. The patient is seen today January 29, 2024 in follow-up on the regular medical floor. She is currently resting comfortably in bed. Awake and alert in no acute distress. Maintaining O2 saturations in the 90s on 4 L/min per nasal cannula. No worsening shortness of breath, cough or congestion. She is continued on bronchodilators. Continued on antibiotics in the form of ceftriaxone. Lovenox for DVT prophylaxis. Transitioned to oral diuretics. Pleural fluid cultures revealed no growth. Cytology pending. White count 8.7. Hemoglobin 9.8. Platelets 431. Sodium 134. Potassium 3.4. Bicarb 28. BUN 12. Creatinine 0.8. Glucose 126. The patient is seen today January 30, 2024 in follow-up on the regular medical floor. She is resting comfortably in bed. Maintaining good O2 saturations in the 90s on 4 L/min per nasal cannula. She is currently on bronchodilators, oral diuretics, Lovenox for DVT prophylaxis. She is currently on antibiotics in the form of Omnicef. Urine blood and pleural fluid cultures revealed no growth. Pleural fluid cytology pending. Follow-up chest x-ray shows pulmonary vascular congestion. No pleural effusion or pneumothorax. Glucose 134. 01/31/2024, the Patient Is Resting Comfortably in Bed and she does not have any significant shortness of breath. I reviewed the CAT scan of the chest and the patient does have mediastinal lymphadenopathy that needs to be evaluated for later stage. Thoracentesis on the right meanwhile, the patient has undergone a and the pleural fluid analysis still pending. The patient had moderate-sized right-sided pleural effusion for which she underwent a thoracentesis. The patient is being released to medical [place]. Pulse ox is 96% on 2 L of oxygen by nasal cannula and 93% room air oxygen. The white cell count is at 8 with a hemoglobin 10.9 and a platelet count of 492. BUN 11 with a creatinine of 0.9 and sodium is at 138. Electrolytes are all within normal limits. Objective - Vital Signs Vital signs: Vital Signs Temp 97.9 F 01/31/24 08:00 Pulse 67 01/31/24 08:00 Resp 15 01/31/24 08:00 BP 109/61 01/31/24 08:00 Pulse Ox 93 L 01/31/24 08:45 FiO2 Intake & Output 01/30/24 01/31/24 01/31/24 18:59 06:59 18:59 Intake Total 709 Output Total 650 200 Balance 59 -200 Weight 63.5 kg Intake: Oral 709 Output: Urine 650 200 Other: Voiding Method External Catheter External Catheter External Catheter - Exam GENERAL EXAM: Alert, 74-year-old female, on 4 L nasal cannula, resting in bed, in no apparent distress. HEAD: Normocephalic. EYES: Normal reaction of pupils, equal size. NOSE: Clear with pink turbinates. THROAT: No erythema or exudates. NECK: No masses, no JVD. CHEST: No chest wall deformity. LUNGS: Equal air entry with scattered rhonchi, crackles in the right lung base. CVS: S1 and S2 normal with no audible murmur, regular rhythm. ABDOMEN: No hepatosplenomegaly, normal bowel sounds, no guarding or rigidity. SPINE: No scoliosis or deformity SKIN: No rashes CENTRAL NERVOUS SYSTEM: No focal deficits, tone is normal in all 4 extremities. EXTREMITIES: Transmetatarsal amputation on the right foot. There is no peripheral edema. No clubbing, no cyanosis. Peripheral pulses are intact. - Labs CBC & Chem 7: 01/31/24 05:20 01/31/24 05:20 Labs: Abnormal Lab Results - Last 24 Hours (Table) 01/30/24 01/30/24 01/31/24 Range/Units 17:10 20:01 05:20 RBC 3.79 L (4.10-5.20) X 10*6/uL Hgb 10.9 L (12.0-15.0) g/dL Hct 34.8 L (37.2-46.3) % MCHC 31.3 L (32.0-37.0) g/dL RDW 14.6 H (11.5-14.5) % Plt Count 492 H (140-440) X 10*3/uL Immature Gran # 0.05 H (0.00-0.04) X 10*3/uL Potassium (3.5-5.5) mmol/L Chloride (96-109) mmol/L Anion Gap (4.00-12.00) mmol/L POC Glucose (mg/dL) 119 H 158 H (70-110) mg/dL AST (13-35) U/L Albumin (3.8-4.9) g/dL Albumin/Globulin Ratio (1.60-3.17) Ratio 01/31/24 01/31/24 01/31/24 Range/Units 05:20 05:29 12:02 RBC (4.10-5.20) X 10*6/uL Hgb (12.0-15.0) g/dL Hct (37.2-46.3) % MCHC (32.0-37.0) g/dL RDW (11.5-14.5) % Plt Count (140-440) X 10*3/uL Immature Gran # (0.00-0.04) X 10*3/uL Potassium 3.3 L (3.5-5.5) mmol/L Chloride 94 L (96-109) mmol/L Anion Gap 12.90 H (4.00-12.00) mmol/L POC Glucose (mg/dL) 113 H 138 H (70-110) mg/dL AST 42 H (13-35) U/L Albumin 3.5 L (3.8-4.9) g/dL Albumin/Globulin Ratio 1.30 L (1.60-3.17) Ratio Microbiology - Last 24 Hours (Table) 01/27/24 14:00 Acid Fast Bacilli Smear - Preliminary Pleural Fluid 01/27/24 14:00 Gram Stain - Preliminary Pleural Fluid Body Fluid Culture - Preliminary 01/27/24 14:00 Anaerobic Culture - Preliminary Pleural Fluid Assessment and Plan Plan: Generalized weakness and fall with injury to left knee, no fracture on x-ray. 3 cm masslike consolidative density in the right lower lobe being followed in the outpatient setting. A PET scan from August 19, 2023 revealed right lower lobe pulmonary nodule with increased metabolic activity compatible with malignancy. There is at least 1 right pulmonary hilum lymph node suspicious for metastatic disease. Extensive interstitial opacities along suspicious for ILD versus CHF. She was given a trial of steroids for 4 weeks and was due for a follow-up CT scan of the chest on October 11, 2023. CT scan of the chest was done yesterday 10/08/2023 that revealed similar pleural-based mass of the right lower lobe which is essentially unchanged in overall size and appearance. Possible minimal early cavitation. Pulmonary fibrosis at least moderate in degree. Plan is for follow- up PET scan was to be 01/27/2024 but remains in the hospital Right pleural effusion, status post thoracentesis on 01/27/2024. 1 L of fluid removed. Fluid analysis showing exudate. Cytology pending History of of diastolic congestive heart failure and valvular heart disease, echocardiogram estimated a preserved left ventricular ejection fraction of 55 to 60%, with mild to moderate tricuspid regurgitation, mild mitral stenosis, mild aortic regurgitation. Chronic hypoxemic respiratory failure, secondary to above History of smoking-related interstitial fibrosis, biopsy-proven History of rectal cancer, status post chemo and radiation. Patient's most recent PET scan was from November, which did not show any new areas of abnormal hypermetabolic uptake to suggest active neoplastic recurrence. History of peripheral vascular occlusive disease, status post right femoral tibial bypass. History of previous right toe amputations Chronic microcytic, hypochromic anemia History obstructive sleep apnea History of hyperlipidemia History of CVA/TIA History of hypothyroidism History of frequent urinary tract infections Former tobacco smoker, vaper Plan: Stable on 2 L of oxygen by nasal cannula Continued on oral diuretics Transitioned to oral antibiotics Pleural fluid cytology pending Outpatient PET/CT Possible endobronchial ultrasound with sampling of the mediastinal lymph nodes with a concern of malignancy Plan is for subacute rehabilitation at discharge
[2024-01-31 16:24] VITALS: BP 104/63; PULSE 62; TEMP 98.7
--- NOTE | 2024-01-31 16:33 | P.DS ---
Providers Date of admission: 01/23/24 13:20 Expected date of discharge: 01/31/24 Attending physician: Lisseth Isaac Consults: 01/23/24 13:09 Consult Physician Routine Consulting Provider: Angelic Lofton Consult Reason/Comments: PNA, COPD Do you want consulting provider notified?: Yes, Notify in am 01/23/24 13:12 Consult Physician Routine Consulting Provider: Joseline Givens Consult Reason/Comments: UTI, pneumonia Do you want consulting provider notified?: Yes, Notify in am 01/24/24 15:34 Consult Physician Routine Consulting Provider: Tani Richter Consult Reason/Comments: Lung mass Do you want consulting provider notified?: Yes 01/27/24 16:09 Consult Physician Routine Consulting Provider: Jose Lerner Consult Reason/Comments: left knee pain Do you want consulting provider notified?: Yes Primary care physician: Lissethdeborah Isaac [facility] Course: Diagnosis on discharge: Shortness of breath, likely multifactorial related to congestive heart failure, COPD, underlying known history of lung mass Acute on chronic diastolic congestive heart failure exacerbation Underlying history of valvular heart disease Underlying history of COPD Underlying history of chronic hypoxic respiratory failure on home oxygen Previous history of rectal cancer received chemotherapy and radiation therapy Underlying history of peripheral vascular disease Underlying history of diabetes mellitus Underlying history of hyperlipidemia Underlying history of hypothyroidism Underlying history of anxiety disorder Underlying history of seizure disorder maintained on Keppra Underlying history of lung mass suspicious for lung cancer followed by pulmonary as outpatient Hospital course: Alexia Rubin, is a 74-year-old female who presented to [facility] emergency room with a chief complaint of worsening shortness of breath She was evaluated in the emergency room vital examination on presentation revealed a temperature of 99 pulse 82 respiration 22 blood pressure 87/59 pulse ox 93% on 4 L nasal cannula Laboratory data reveals a white blood count of 14.5 hemoglobin 11.1 platelet count 471 BUN 17 creatinine 0.71 urine analysis revealed evidence of urinary tract infection Testing in the emergency room revealed EKG revealed normal sinus rhythm with nonspecific T wave abnormality, chest x-ray revealed evidence of pulmonary edema versus atypical pneumonia Patient was admitted to medical floor for further evaluation and treatment Past medical history is significant for history of chronic obstructive pulmonary disease, history of hypertension, history of hyperlipidemia, history of diabetes mellitus, history of hypothyroidism, history of anal cancer with previous history of chemotherapy, history of diastolic congestive heart failure history of peripheral vascular disease, and history of lung mass followed by pulmonary On review of systems patient is alert and oriented x 3 in no apparent distress she is complaining of cough with sputum production and occasional blood in the sputum she is also complaining of shortness of breath and generalized weakness otherwise she denies any complaints there is no chest pain no nausea or vomiting no abdominal pain no diarrhea no blood in the stools, she had frequency with urination and urgency no hematuria On 01/25/2024 patient's alert and oriented x 3. Repeat chest x-ray has been ordered this a.m. per pulmonary. 2D echo ordered per cardiology. Patient reports minimum improvement. Remains on IV Lasix and IV Rocephin. Patient is hoping to be discharged home tomorrow so she can make it to her PET scan on . Current vital signs temp 98.3, heart rate 70, respiratory rate 17, blood pressure 106/55 with a pulse ox of 94% on room air On 01/26/2024 patient was seen and examined on the medical floor she is alert and oriented x 3 in no apparent distress, she is still complaining of shortness of breath with any activity, she is also complaining of left knee pain with inability to stand or walk, otherwise she denies any complaints there is no fever or chills no headache or dizziness no chest pain, no palpitation no cough no nausea or vomiting no abdominal pain no diarrhea, she is still having pain with urination. Patient is not ready for discharge at this time, we will continue with IV antibiotics, continue with PT and OT, patient may need to be transferred to rehab prior to going home, daughter was instructed to cancel appointment for PET scan tomorrow, and reschedule in the next 2 to 3 weeks. On 01/27/2024 patient was seen and examined on the medical floor she is alert and oriented x 3 in no apparent distress, she is still complaining of shortness of breath with, she is also complaining of left knee pain with inability to stand or walk, otherwise she denies any complaints there is no fever or chills no headache or dizziness no chest pain, no palpitation no cough no nausea or vomiting no abdominal pain no diarrhea, she is still having pain with urination. On 01/28/2024 patient is alert and oriented x 3. Patient underwent right-sided thoracentesis yesterday 1 L removed some improvement.on 10/28/2023 patient is alert and oriented 3. Patient underwent right-sided thoracentesis yesterday 1 L removed some improvement. Denies chest pain. Patient denies nausea vomiting or diarrhea. Patient denies any urinary burning or frequency On 01/29/2024 patient was seen and examined on the medical floor she is alert and oriented x 3 in no apparent distress, she is still complaining of generalized weakness and shortness of breath with activity otherwise she denies any complaints there is no fever or chills no headache or dizziness no chest pain no palpitation, no nausea or vomiting no abdominal pain no diarrhea no blood in the stools, she is still having burning with urination no frequency or urgency and no hematuria. At this time will transition to oral antibiotic and oral diuretics, patient will need to go to rehab after this admission. On 01/30/2024 patient is alert and oriented x 3. Patient reports improvement with shortness of breath and cough. Discharge planning to rehab [facility]. Patient will follow-up outpatient with oncology services for arrangement of PET scan. Patient denies chest pain. Patient denies nausea vomiting or diarrhea. Patient denies any urinary burning or frequency On 01/31/2024 patient was seen and examined on the medical floor she is alert and oriented x 3 in no apparent distress there is no fever or chills no headache or dizziness she is still having some shortness of breath with activity otherwise she denies any complaints there is no chest pain no nausea or vomiting no abdominal pain no diarrhea no urinary symptoms. Plan is to transfer to shelter for rehabilitation today. Patient will need follow-up as outpatient for PET scan and follow-up with oncology. Patient and family understand that no cancer evaluation or treatment will be done while she is at the shelter for rehab. Patient Condition at Discharge: Stable Plan - Discharge Summary Discharge Rx Participant: Yes New Discharge Prescriptions: New Aspirin 81 mg PO DAILY tab Cefdinir [Omnicef] 300 mg PO BID 5 Days #10 cap Dapagliflozin Propanediol [Farxiga] 10 mg PO DAILY tab Continue Levothyroxine Sodium [Synthroid] 25 mcg PO DAILY Gabapentin [Neurontin] 300 mg PO BID Gabapentin 600 mg PO BID Atorvastatin [Lipitor] 80 mg PO HS Furosemide [Lasix] 40 mg PO BID@0900,1300 traZODone HCL [Desyrel] 100 mg PO HS Albuterol Nebulized [Ventolin Nebulized] 2.5 mg INHALATION RT-TID PRN PRN Reason: Shortness Of Breath Ferrous Sulfate [Iron (65 MG Elemental)] 325 mg PO DAILY Albuterol Inhaler [Ventolin Hfa Inhaler] 2 puff INHALATION RT-Q6H PRN PRN Reason: Shortness Of Breath FLUoxetine HCL [PROzac] 40 mg PO DAILY carBAMazepine [carBAMazepine ER] 100 mg PO BID levETIRAcetam [Keppra] 750 mg PO BID Pantoprazole [Protonix] 40 mg PO DAILY ALPRAZolam [Xanax] 0.25 mg PO DAILY PRN PRN Reason: Anxiety HYDROcodone/APAP 7.5-325MG [[place] 7.5-325] 1 tab PO BID PRN PRN Reason: Pain Discontinued predniSONE See Taper PO DIRECTED Doxycycline Hyclate 100 mg PO BID Discharge Medication List Levothyroxine Sodium [Synthroid] 25 mcg PO DAILY 08/15/16 [History] FLUoxetine HCL [PROzac] 40 mg PO DAILY 07/25/20 [History] Gabapentin [Neurontin] 300 mg PO BID 08/03/22 [History] Atorvastatin [Lipitor] 80 mg PO HS 04/04/23 [History] Gabapentin 600 mg PO BID 04/04/23 [History] carBAMazepine [carBAMazepine ER] 100 mg PO BID 04/04/23 [History] levETIRAcetam [Keppra] 750 mg PO BID 07/19/23 [History] Furosemide [Lasix] 40 mg PO BID@0900,1300 08/08/23 [History] Albuterol Nebulized [Ventolin Nebulized] 2.5 mg INHALATION RT-TID PRN 09/10/23 [History] Ferrous Sulfate [Iron (65 MG Elemental)] 325 mg PO DAILY 09/10/23 [History] traZODone HCL [Desyrel] 100 mg PO HS 09/10/23 [History] ALPRAZolam [Xanax] 0.25 mg PO DAILY PRN 01/23/24 [History] Albuterol Inhaler [Ventolin Hfa Inhaler] 2 puff INHALATION RT-Q6H PRN 01/23/24 [History] HYDROcodone/APAP 7.5-325MG [[place] 7.5-325] 1 tab PO BID PRN 01/23/24 [History] Pantoprazole [Protonix] 40 mg PO DAILY 01/23/24 [History] Aspirin 81 mg PO DAILY tab 01/31/24 [Rx] Cefdinir [Omnicef] 300 mg PO BID 5 Days #10 cap 01/31/24 [Rx] Dapagliflozin Propanediol [Farxiga] 10 mg PO DAILY tab 01/31/24 [Rx] Follow up Appointment(s)/Referral(s): Zeferino Wong MD [STAFF PHYSICIAN] - 3 Weeks Lisseth Isaac MD [Primary Care Provider] - 1-2 days Activity/Diet/Wound Care/Special Instructions: Maintaining hinged knee brace when up. May remove for bathing.
[2024-01-31 17:06] LABS: Glucose,Whole Blood 122 mg/dL (70-110)
--- NOTE | 2024-02-06 13:43 | P.PN ---
Subjective Progress Note Date: 01/31/24 Principal diagnosis: Reason for follow-up is leukocytosis UTI and question of pneumonia Patient is a 74-year-old female with a past medical history significant for diabetes mellitus CVA TIA COPD hyperlipidemia, history of anal cancer with chemoradiation 2016 presenting to the hospital for evaluation of increasing weakness and shortness of breath, she did have a low-grade fever positive UA chest x-ray pulmonary edema versus atypical pneumonia. On today's evaluation that is 01/31/2024, the patient continues to be afebrile, the patient is on room air and breathing comfortably, the Pt denies having any chest pain and cough has decreased intensity, the patient denies having any abdominal pain no vomiting or any diarrhea has been reported by the nursing staff, mention feeling better. Patient white count is 8.4, creatinine 0.9 pleural fluid culture have been negat ivan so far Objective - Vital Signs Vital signs: Vital Signs Temp 97.9 F 01/31/24 08:00 Pulse 67 01/31/24 08:00 Resp 15 01/31/24 08:00 BP 109/61 01/31/24 08:00 Pulse Ox 93 L 01/31/24 08:45 FiO2 Intake & Output 01/30/24 01/31/24 01/31/24 18:59 06:59 18:59 Intake Total 709 Output Total 650 200 Balance 59 -200 Weight 63.5 kg Intake: Oral 709 Output: Urine 650 200 Other: Voiding Method External Catheter External Catheter External Catheter - Exam GENERAL DESCRIPTION: An elderly female lying in bed in no distress RESPIRATORY SYSTEM: Unlabored breathing , decreased breath sounds at bases HEART: S1 S2 regular rate and rhythm , ABDOMEN: Soft , no tenderness EXTREMITIES: No edema feet - Labs CBC & Chem 7: 01/31/24 05:20 01/31/24 05:20 Labs: Abnormal Lab Results - Last 24 Hours (Table) 01/30/24 01/30/24 01/31/24 Range/Units 17:10 20:01 05:20 RBC 3.79 L (4.10-5.20) X 10*6/uL Hgb 10.9 L (12.0-15.0) g/dL Hct 34.8 L (37.2-46.3) % MCHC 31.3 L (32.0-37.0) g/dL RDW 14.6 H (11.5-14.5) % Plt Count 492 H (140-440) X 10*3/uL Immature Gran # 0.05 H (0.00-0.04) X 10*3/uL Potassium (3.5-5.5) mmol/L Chloride (96-109) mmol/L Anion Gap (4.00-12.00) mmol/L POC Glucose (mg/dL) 119 H 158 H (70-110) mg/dL AST (13-35) U/L Albumin (3.8-4.9) g/dL Albumin/Globulin Ratio (1.60-3.17) Ratio 01/31/24 01/31/24 01/31/24 Range/Units 05:20 05:29 12:02 RBC (4.10-5.20) X 10*6/uL Hgb (12.0-15.0) g/dL Hct (37.2-46.3) % MCHC (32.0-37.0) g/dL RDW (11.5-14.5) % Plt Count (140-440) X 10*3/uL Immature Gran # (0.00-0.04) X 10*3/uL Potassium 3.3 L (3.5-5.5) mmol/L Chloride 94 L (96-109) mmol/L Anion Gap 12.90 H (4.00-12.00) mmol/L POC Glucose (mg/dL) 113 H 138 H (70-110) mg/dL AST 42 H (13-35) U/L Albumin 3.5 L (3.8-4.9) g/dL Albumin/Globulin Ratio 1.30 L (1.60-3.17) Ratio Microbiology - Last 24 Hours (Table) 01/27/24 14:00 Acid Fast Bacilli Smear - Preliminary Pleural Fluid 01/27/24 14:00 Gram Stain - Preliminary Pleural Fluid Body Fluid Culture - Preliminary 01/27/24 14:00 Anaerobic Culture - Preliminary Pleural Fluid Assessment and Plan (1) Leukocytosis Status: Acute Code(s): D72.829 - ELEVATED WHITE BLOOD CELL COUNT, UNSPECIFIED SNOMED Code(s): 284147483 (2) Allergy to multiple antibiotics Status: Acute Code(s): Z88.1 - ALLERGY STATUS TO OTHER ANTIBIOTIC AGENTS SNOMED Code(s): 416314573 (3) Urinary tract infection Status: Acute Code(s): N39.0 - URINARY TRACT INFECTION, SITE NOT SPECIFIED SNOMED Code(s): 45277149 Plan: 1patient presented to hospital with weakness and fall also complaining of increasing shortness of breath but no significant cough or sputum production clinic suspicious low for atypical pneumonia Zithromax has been discontinued. 2patient did have urinary symptoms of burning frequency and lower abdominal discomfort elevated white count admission with a positive UA UTI not entirely excluded. 3-patient with multiple antibiotic ALLERGIES that would limit the number of antibiotic safe to use 4patient Legionella antigen came back negative Mycoplasma IgM came back negative as well patient is status post thoracocentesis fluid slightly hazy however white count not significant elevated and the culture has been negative so far 5patient has been advised a few day course of Omnicef on discharge Dictation was produced using [place] dictation software. please excuse any grammatical, word or spelling errors. Time with Patient: Less than 30
== END 2024-01-31 18:57 | DRG 291 ==
LOC: EC 10:57 → 5NMEDONC 13:20 → 1SOBS 19:49 → 6NMEDSUR 01-25 20:25
PROVIDERS: ADMIT Internal Medicine; ATTEND Internal Medicine
PROC: 0W993ZX Drainage of Right Pleural Cavity, Percutaneous Approach, Diagnostic (ICD-10-PCS; principal; 2024-01-27)
DX: I11.0 Hypertensive heart disease with heart failure (principal); I50.33 Acute on chronic diastolic (congestive) heart failure; N39.0 Urinary tract infection, site not specified; J96.11 Chronic respiratory failure with hypoxia; J91.8 Pleural effusion in other conditions classified elsewhere; E11.51 Type 2 diabetes mellitus with diabetic peripheral angiopathy without gangrene; E03.9 Hypothyroidism, unspecified; D50.9 Iron deficiency anemia, unspecified; E78.5 Hyperlipidemia, unspecified; F32.A Depression, unspecified; G40.909 Epilepsy, unspecified, not intractable, without status epilepticus; I27.20 Pulmonary hypertension, unspecified; J84.10 Pulmonary fibrosis, unspecified; N32.81 Overactive bladder; S83.402A Sprain of unspecified collateral ligament of left knee, initial encounter; J44.9 Chronic obstructive pulmonary disease, unspecified; Y92.009 Unspecified place in unspecified non-institutional (private) residence as the place of occurrence of the external cause; W18.30XA Fall on same level, unspecified, initial encounter; Z79.82 Long term (current) use of aspirin; Z79.02 Long term (current) use of antithrombotics/antiplatelets; Z79.890 Hormone replacement therapy; Z79.899 Other long term (current) drug therapy; Z88.1 Allergy status to other antibiotic agents; Z85.048 Personal history of other malignant neoplasm of rectum, rectosigmoid junction, and anus; Z85.118 Personal history of other malignant neoplasm of bronchus and lung; Z86.73 Personal history of transient ischemic attack (TIA), and cerebral infarction without residual deficits; Z87.891 Personal history of nicotine dependence; Z99.3 Dependence on wheelchair; Z99.81 Dependence on supplemental oxygen
CPT/HCPCS: 36415; 71045; 71046; 71260; 76604; 80053; 81001; 82607; 82728; 82747; 82945; 83540; 83550; 83605; 83615; 83735; 83880; 83921; 84132; 84145; 84157; 84484; 85025; 85610; 85730; 86738; 87040; 87070; 87075; 87086; 87102; 87116; 87205; 87206; 87449; 87496; 87498; 87502; 87529; 87634; 87635; 87636; 87798; 88108; 88305; 88341; 88342; 89050; 93005; 93306; 94640; 94760; 96365; 96367; 96375; 96376; 99285

== ENCOUNTER 2024-02-23 10:00 | Inpatient (IN) | payer MEDICARE ==
[2024-02-23 11:23] LABS: Anisocytosis Slight; Basophils % (A) 0 %; Eosinophils # (A) 0.2 k/uL (0-0.7); Eosinophils % (A) 2 %; HGB 9.2 gm/dL (11.4-16.0); Hypochromasia Slight; Lymphocytes # (A) 1.3 k/uL (1.0-4.8); Lymphocytes % (A) 14 %; MCH 28.4 pg (25.0-35.0); MCHC 31.7 g/dL (31.0-37.0); MCV 89.7 fL (80.0-100.0); Mean Platelet Volume 8.5; Monocytes # (A) 0.4 k/uL (0-1.0); Monocytes % (A) 4 %; Neutrophils # (A) 7.4 k/uL (1.3-7.7); Neutrophils % (A) 78 %; Platelet Count 347 k/uL (150-450); RBC 3.23 m/uL (3.80-5.40); RDW 16.5 % (11.5-15.5); WBC 9.4 k/uL (3.8-10.6)
[2024-02-23 11:25] LABS: Partial Thromboplastin Time 27.9 sec (22.0-30.0); Prothrombin Time 11.1 sec (10.0-12.5)
[2024-02-23 11:28] LABS: ALT 47 U/L (4-34); AST 42 U/L (14-36); African American GFR (CKD) >90 (>60 ml/min/1.73 sqM); Albumin 2.9 g/dL (3.5-5.0); Alkaline Phosphatase 76 U/L (38-126); Anion Gap 7 mmol/L; Blood Urea Nitrogen 10 mg/dL (7-17); Calcium 7.8 mg/dL (8.4-10.2); Carbon Dioxide 26 mmol/L (22-30); Chloride 103 mmol/L (98-107); Glucose 141 mg/dL (74-99); Magnesium 1.7 mg/dL (1.6-2.3); Non-African American GFR(CKD) 89 (>60 ml/min/1.73 sqM); Potassium 3.3 mmol/L (3.5-5.1); Sodium 136 mmol/L (137-145); Total Bilirubin 0.5 mg/dL (0.2-1.3); Total Protein 5.2 g/dL (6.3-8.2)
[2024-02-23] MEDS: SODIUM CHLORIDE 0.9% 500 ML 500 ML IV STA (11:48)
--- NOTE | 2024-02-23 11:51 | XR ---
EXAMINATION TYPE: XR chest 2V DATE OF EXAM: 02/23/2024 11:40 AM COMPARISON: 01/30/2024 CLINICAL INDICATION: Female, 74 years old with history of Weakness, TECHNIQUE: XR chest 2V view(s) obtained. FINDINGS: The heart size is prominent. The pulmonary vasculature is prominent. Diffuse increased lung markings are present.. IMPRESSION: 1. Clinical correlation for pulmonary edema. Consider congestive heart failure. Follow-up is recommen ded. [facility], , 02/23/2024 11:49 AM
--- NOTE | 2024-02-23 11:54 | XR ---
EXAMINATION TYPE: XR knee complete bilateral DATE OF EXAM: 02/23/2024 11:40 AM COMPARISON: None. CLINICAL INDICATION: Female, 74 years old with history of fall,pain, TECHNIQUE: XR knee complete bilateral view(s) obtained. FINDINGS: Tibial and femoral components are present from knee prosthesis within the bilateral knees. Note is made of the stent within the distal right thigh. No acute fractures are evident. Moderate left joint effusion is present. Follow up exams can be performed 7-10 days from acute trauma for continued pain. IMPRESSION: 1. Moderate left joint effusion. 2. No acute osseous abnormalities bilateral knees [facility], , 02/23/2024 11:51 AM
--- NOTE | 2024-02-23 12:10 | ED ---
Weakness HPI - General Chief complaint: Weakness Stated complaint: Weakness Time Seen by Provider: 02/23/24 10:09 Source: patient, EMS, RN notes reviewed Mode of arrival: EMS Limitations: physical limitation - History of Present Illness Initial comments: 74-year-old female presents emergency department with chief complaint of weakness. Patient states that she recently got out of [place]. 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 Patient is known diabetic. Patient states that her daughter is unable to care for her. Patient denies any chest pain or shortness of breath. No focal weakness. - Related Data Home Medications Medication Instructions Recorded Confirmed Levothyroxine Sodium [Synthroid] 25 mcg PO DAILY 08/15/16 02/23/24 FLUoxetine HCL [PROzac] 40 mg PO DAILY 07/25/20 02/23/24 Gabapentin [Neurontin] 300 mg PO BID 08/03/22 02/23/24 Atorvastatin [Lipitor] 80 mg PO HS 04/04/23 02/23/24 Gabapentin 600 mg PO BID 04/04/23 02/23/24 carBAMazepine [carBAMazepine ER] 100 mg PO BID 04/04/23 02/23/24 levETIRAcetam [Keppra] 750 mg PO BID 07/19/23 02/23/24 Furosemide [Lasix] 40 mg PO BID@0900,1300 08/08/23 02/23/24 Ferrous Sulfate [Iron (65 MG 325 mg PO DAILY 09/10/23 02/23/24 Elemental)] traZODone HCL [Desyrel] 100 mg PO HS 09/10/23 02/23/24 ALPRAZolam [Xanax] 0.25 mg PO DAILY 01/23/24 02/23/24 Albuterol Inhaler [Ventolin Hfa 2 puff INHALATION RT-Q6H PRN 01/23/24 02/23/24 Inhaler] HYDROcodone/APAP 7.5-325MG [[place] 1 tab PO BID 01/23/24 02/23/24 7.5-325] Clopidogrel [Plavix] 75 mg PO DAILY 02/23/24 02/23/24 Previous Rx's Medication Instructions Recorded Aspirin 81 mg PO DAILY tab 01/31/24 Allergies Allergy/AdvReac Type Severity Reaction Status Date / Time erythromycin base Allergy Rash/Hives Verified 02/23/24 14:23 Fish Containing Products Allergy Anaphylaxis Verified 02/23/24 14:23 Penicillins Allergy Anaphylaxis Verified 02/23/24 14:23 shellfish derived [Shellfish] Allergy Anaphylaxis Verified 02/23/24 14:23 levofloxacin [From Levaquin] AdvReac Rash/Hives, Verified 02/23/24 14:23 swelling Review of Systems ROS Statement: Those systems with pertinent positive or pertinent negative responses have been documented in the HPI. ROS Other: All systems not noted in ROS Statement are negative. 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 ,States yeast infection in genital area and folds of abd., diet controlled diabetes., has stim ulator left hip for back pain (not working)., PAD. Recent diagosis of lung cancer History of Any Multi-Drug Resistant Organisms: None Reported Past Surgical History: Appendectomy, Back Surgery, Bladder Surgery, Cholecystectomy, Hysterectomy, Joint Replacement Additional Past Surgical History / Comment(s): Bilateral knee replacements, right shoulder rotator cuff X2, bilateral iliac femoral stents, bladder suspension X2, right Mediport removed, left lung biopsy, lymph node biopsy, left groin biopsy(malignant). bilateral carpal tunnel, bilateral cataracts, right shoulder replacement. stimulator in hip (left) for back, bilateral iliac arterial stents., R femoral stent Past Anesthesia/Blood Transfusion Reactions: No Reported Reaction, Family History of Problems w/ Anesthesia Additional Past Anesthesia/Blood Transfusion Reaction / Comment(s): Claustrophobic., vomited and aspirated during colonoscopy. son had difficulty waking up after surgery Past Psychological History: Anxiety, Depression Smoking Status: Former smoker Past Alcohol Use History: None Reported Past Drug Use History: None Reported - Past Family History Sister(s) Family Medical History: Cancer Additional Family Medical History / Comment(s): Lung cancer. other sister heart failure Brother(s) Family Medical History: Cancer Additional Family Medical History / Comment(s): Lung cancer. Mother Family Medical History: Cancer, Fibromyalgia Additional Family Medical History / Comment(s): Drugs and alcohol - of what patient calls "septicemia" Father Family Medical History: Cancer, Coronary Artery Disease (CAD), Hyperlipidemia, Hypertension Additional Family Medical History / Comment(s): Skin cancer. General Exam Limitations: no limitations, physical limitation General appearance: alert, in no apparent distress Head exam: Present: atraumatic, normocephalic, normal inspection Eye exam: Present: normal appearance, PERRL, EOMI. Absent: scleral icterus, conjunctival injection, periorbital swelling ENT exam: Present: normal exam, mucous membranes moist Neck exam: Present: normal inspection. Absent: tenderness, meningismus, lymphadenopathy Respiratory exam: Present: normal lung sounds bilaterally. Absent: respiratory distress, wheezes, rales, rhonchi, stridor Cardiovascular Exam: Present: regular rate, normal rhythm, normal heart sounds. Absent: systolic murmur, diastolic murmur, rubs, gallop, clicks GI/Abdominal exam: Present: soft, normal bowel sounds. Absent: distended, tenderness, guarding, rebound, rigid Extremities exam: Present: other (Bilateral knee tenderness, no obvious deformity there is small area of dried blood on her right foot at the area of prior amputation) Neurological exam: Present: alert, oriented X3 Course Vital Signs 02/23/24 02/23/24 02/23/24 10:02 10:08 12:00 Temperature 97.8 F Pulse Rate 70 69 Pulse Rate [ 69 Dishwasher Busser ] Respiratory 18 18 Rate Blood Pressure 94/69 101/62 O2 Sat by Pulse 99 96 Oximetry 02/23/24 13:00 Temperature Pulse Rate 69 Pulse Rate [ Dishwasher Busser ] Respiratory 18 Rate Blood Pressure 100/44 O2 Sat by Pulse 96 Oximetry EKG Findings - EKG Comments: EKG Findings:: EKG performed at 10: 52 sinus rhythm with a rate of 75 PA 149 QRS 83 QT/QTc 431/460 - EKG Results: EKG: interpreted by [facility] Medical Decision Making - Medical Decision Making Was pt. sent in by a medical professional or institution (INDIRA Rankin, WAREHOUSE PRODUCTION WORKER, urgent care, hospital, or [facility]...) When possible be specific @ -No Did you speak to anyone other than the patient for history (EMS, parent, family, police, friend...)? What history was obtained from this source @ -No Did you review nursing and triage notes (agree or disagree)? Why? @ -I reviewed and agree with nursing and triage notes Were old charts reviewed (outside hosp., previous admission, EMS record, old EKG, old radiological studies, urgent care reports/EKG's, [facility] records)? Report findings @ -No old charts were reviewed Differential Diagnosis (chest pain, altered mental status, abdominal pain women, abdominal pain men, vaginal bleeding, weakness, fever, dyspnea, syncope, headache, dizziness, GI bleed, back pain, seizure, CVA, palpatations, mental health, musculoskeletal)? @ -Differential Weakness: Hypoglycemia, shock, sepsis, hyponatremia, anemia, infection, RI, ETOH, adverse medicine reaction, overdose, stroke, this is not meant to be an all-inclusive list. EKG interpreted by me (3pts min.). @ -As above X-rays interpreted by me (1pt min.). @ -Chest x-ray shows no acute cardiopulmonary process X-ray of bilateral knee no acute fracture CT interpreted by me (1pt min.). @ -None done U/S interpreted by me (1pt. min.). @ -None done What testing was considered but not performed or refused? (CT, X-rays, U/S, labs)? Why? @ -None What meds were considered but not given or refused? Why? @ -None Did you discuss the management of the patient with other professionals (professionals i.e. INDIRA Rankin, WAREHOUSE PRODUCTION WORKER, lab, RT, psych nurse, mental health social worker, chief talent officer, teacher, campus police officer, rn case manager)? Give summary @ -Dr. Isaac for admission, case management regarding possible placement Was smoking cessation discussed for >3mins.? @ -No Was critical care preformed (if so, how long)? @ -No Were there social determinants of health that impacted care today? How? (H omelessness, low income, unemployed, alcoholism, drug addiction, transportation, low edu. Level, literacy, decrease access to med. care, [facility], rehab)? @ -No Was there de-escalation of care discussed even if they declined (Discuss DNR or withdrawal of care, Hospice)? DNR status @ -No What co-morbidities impacted this encounter? (DM, HTN, Smoking, COPD, CAD, Cancer, CVA, ARF, Chemo, Hep., AIDS, mental health diagnosis, sleep apnea, morbid obesity)? @ -None Was patient admitted / discharged? Hospital course, mention meds given and route, prescriptions, significant lab abnormalities, going to OR and other pertinent info. @ -Admitted patient presented for increasing weakness family is unable to care for the patient. Patient will be admitted for possible placement for the rehab. Undiagnosed new problem with uncertain prognosis? @ -No Drug Therapy requiring intensive monitoring for toxicity (Heparin, Nitro, Insulin, Cardizem)? @ -No Were any procedures done? @ -No Diagnosis/symptom? @ -Weakness, unable to ambulate, multiple falls, anemia Acute, or Chronic, or Acute on Chronic? @ -Acute Uncomplicated (without systemic symptoms) or Complicated (systemic symptoms)? @ -complicated Side effects of treatment? @ -No Exacerbation, Progression, or Severe Exacerbation? @ -No Poses a threat to life or bodily function? How? (Chest pain, USA, RI, pneumonia, PE, COPD, DKA, ARF, appy, cholecystitis, CVA, Diverticulitis, Homicidal, Suicidal, threat to staff... and all critical care pts) @ -No - Lab Data Result diagrams: 02/23/24 10:51 02/23/24 10:51 Lab Results 02/23/24 02/23/24 02/23/24 Range/Units 10:51 10:51 10:51 WBC 9.4 (3.8-10.6) k/uL RBC 3.23 L (3.80-5.40) m/uL Hgb 9.2 L (11.4-16.0) gm/dL Hct 29.0 L (34.0-46.0) % MCV 89.7 (80.0-100.0) fL MCH 28.4 (25.0-35.0) pg MCHC 31.7 (31.0-37.0) g/dL RDW 16.5 H (11.5-15.5) % Plt Count 347 (150-450) k/uL MPV 8.5 Neutrophils % 78 % Lymphocytes % 14 % Monocytes % 4 % Eosinophils % 2 % Basophils % 0 % Neutrophils # 7.4 (1.3-7.7) k/uL Lymphocytes # 1.3 (1.0-4.8) k/uL Monocytes # 0.4 (0-1.0) k/uL Eosinophils # 0.2 (0-0.7) k/uL Basophils # 0.0 (0-0.2) k/uL Hypochromasia Slight Anisocytosis Slight PT 11.1 (10.0-12.5) sec INR 1.0 (<1.2) APTT 27.9 (22.0-30.0) sec Sodium 136 L (137-145) mmol/L Potassium 3.3 L (3.5-5.1) mmol/L Chloride 103 (98-107) mmol/L Carbon Dioxide 26 (22-30) mmol/L Anion Gap 7 mmol/L BUN 10 (7-17) mg/dL Creatinine 0.62 (0.52-1.04) mg/dL Est GFR (CKD-EPI)AfAm >90 (>60 ml/min/1.73 sqM) Est GFR (CKD-EPI)NonAf 89 (>60 ml/min/1.73 sqM) Glucose 141 H (74-99) mg/dL Plasma Lactic Acid Boyd (0.7-2.0) mmol/L Calcium 7.8 L (8.4-10.2) mg/dL Magnesium 1.7 (1.6-2.3) mg/dL Total Bilirubin 0.5 (0.2-1.3) mg/dL AST 42 H (14-36) U/L ALT 47 H (4-34) U/L Alkaline Phosphatase 76 (38-126) U/L Troponin I (0.000-0.034) ng/mL Total Protein 5.2 L (6.3-8.2) g/dL Albumin 2.9 L (3.5-5.0) g/dL 02/23/24 02/23/24 Range/Units 10:51 10:51 WBC (3.8-10.6) k/uL RBC (3.80-5.40) m/uL Hgb (11.4-16.0) gm/dL Hct (34.0-46.0) % MCV (80.0-100.0) fL MCH (25.0-35.0) pg MCHC (31.0-37.0) g/dL RDW (11.5-15.5) % Plt Count (150-450) k/uL MPV Neutrophils % % Lymphocytes % % Monocytes % % Eosinophils % % Basophils % % Neutrophils # (1.3-7.7) k/uL Lymphocytes # (1.0-4.8) k/uL Monocytes # (0-1.0) k/uL Eosinophils # (0-0.7) k/uL Basophils # (0-0.2) k/uL Hypochromasia Anisocytosis PT (10.0-12.5) sec INR (<1.2) APTT (22.0-30.0) sec Sodium (137-145) mmol/L Potassium (3.5-5.1) mmol/L Chloride (98-107) mmol/L Carbon Dioxide (22-30) mmol/L Anion Gap mmol/L BUN (7-17) mg/dL Creatinine (0.52-1.04) mg/dL Est GFR (CKD-EPI)AfAm (>60 ml/min/1.73 sqM) Est GFR (CKD-EPI)NonAf (>60 ml/min/1.73 sqM) Glucose (74-99) mg/dL Plasma Lactic Acid Boyd 1.5 (0.7-2.0) mmol/L Calcium (8.4-10.2) mg/dL Magnesium (1.6-2.3) mg/dL Total Bilirubin (0.2-1.3) mg/dL AST (14-36) U/L ALT (4-34) U/L Alkaline Phosphatase (38-126) U/L Troponin I <0.012 (0.000-0.034) ng/mL Total Protein (6.3-8.2) g/dL Albumin (3.5-5.0) g/dL Disposition Clinical Impression: Anemia, Unable to ambulate, Falls, Weakness Disposition: ADMITTED IP TO THIS [facility] Condition: Poor Time of Disposition: 13:11
[2024-02-23] MEDS ORDERED: NALOXONE 0.4 MG/ML 1 ML VIAL IV PRN (14:39)
[2024-02-23 15:59] LABS: Amorphous Sediment,Urine Rare /hpf; Appearance,Urine Cloudy (Clear); Bacteria,Urine Rare /hpf; Bilirubin,Urine Negative (Negative); Blood,Urine Small (Negative); Budding Yeast,Urine Many /hpf; Color,Urine Yellow; Glucose,Urine (UA) Negative (Negative); Ketones,Urine Negative (Negative); Leukocyte Esterase,Urine Large (Negative); Mucus,Urine Rare /hpf; Nitrite,Urine Negative (Negative); PH, Urine 6.5 (5.0-8.0); Protein,Urine 1+ (Negative); RBC,Urine 20 /hpf (0-5); Specific Gravity,Urine 1.019 (1.001-1.035); Squamous Epithelial Cell,Urine 2 /hpf (0-4); Urobilinogen,Urine <2.0 mg/dL (<2.0); WBC,Urine >182 /hpf (0-5)
[2024-02-23] MEDS: ACETAMINOPHEN TAB 325 MG TAB PO PRN (20:14)
[2024-02-24] MEDS: ONDANSETRON 4 MG/2 ML VIAL IVP STA (08:37)
[2024-02-24] MEDS: LOPERAMIDE 2 MG CAP PO STA (08:37)
[2024-02-24] MEDS ORDERED: ALBUTEROL NEBULIZED 2.5 MG/3 ML INHALATION PRN (09:10)
[2024-02-24] MEDS: ASPIRIN 81 MG PO SCH (09:38)
[2024-02-24] MEDS: FUROSEMIDE 40 MG TAB PO SCH (12:30)
--- NOTE | 2024-02-24 14:10 | P.CONS ---
History of Present Illness - Reason for Consult Consult date: 02/24/24 Anemia Requesting physician: Lisseth Isaac - Chief Complaint Fall - History of Present Illness This is a pleasant 74-year-old female who presented to the emergency department after sustaining a fall yesterday with complaints of pain in her knees. 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 She is on aspirin 81 mg daily and Plavix for peripheral arterial disease. Denies any regular NSAID use. Patient states she has had anemia for many many years and takes iron daily. She denies any blood in her stool or black stool. States her stools are dark from her iron but no darker. Denies any abdominal pain, nausea or vomiting and no rectal bleeding. Her last colonoscopy was in December [address] Chan with reported findings of 15 colon polyps status post polypectomy with the recommendation of repeat colonoscopy in 1 year. Patient states she does not want to follow with Dr. Chan and has set up appointments with Dr. Bay for colonoscopy. Review of Systems REVIEW OF SYSTEMS: CARDIOPULMONARY: No chest pain or shortness of breath. Gastrointestinal: No abdominal pain. No nausea or vomiting. No hematemesis, coffee-ground emesis. No rectal bleeding, or melena. GENITOURINARY: No dysuria or hematuria. MUSCULOSKELETAL: Reports normal range of motion., Joint pain. Reports knee pain. SKIN: No rashes. No jaundice. ENDOCRINE: No chills, fevers. No excessive weight gain or loss. No polydipsia or polyuria. PSYCHIATRIC: Unremarkable. NEUROLOGY: No change in mental status. Denies dizziness, headache. ENT: Vision unremarkable. CONSTITUTIONAL: No recent weight loss. No fever, chills, night sweats. 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 ,States yeast infection in genital area and folds of abd., diet controlled diabetes., has stimulator left hip for back pain (not working)., PAD. Recent diagosis of lung cancer History of Any Multi-Drug Resistant Organisms: None Reported Past Surgical History: Appendectomy, Back Surgery, Bladder Surgery, Cholecystectomy, Hysterectomy, Joint Replacement Additional Past Surgical History / Comment(s): Bilateral knee replacements, right shoulder rotator cuff X2, bilateral iliac femoral stents, bladder suspension X2, right Mediport removed, left lung biopsy, lymph node biopsy, left groin biopsy(malignant). bilateral carpal tunnel, bilateral cataracts, right shoulder replacement. stimulator in hip (left) for back, bilateral iliac arterial stents., R femoral stent Past Anesthesia/Blood Transfusion Reactions: No Reported Reaction, Family History of Problems w/ Anesthesia Additional Past Anesthesia/Blood Transfusion Reaction / Comm: Claustrophobic., vomited and aspirated during colonoscopy. son had difficulty waking up after surgery Past Psychological History: Anxiety, Depression Smoking Status: Former smoker Past Alcohol Use History: None Reported Additional Past Alcohol Use History / Comment(s): quit smoking 2 years, smoked 1 ppd for over 50 years. vapes occasionally. Past Drug Use History: None Reported - Past Family History Sister(s) Family Medical History: Cancer Additional Family Medical History / Comment(s): Lung cancer. other sister heart failure Brother(s) Family Medical History: Cancer Additional Family Medical History / Comment(s): Lung cancer. Mother Family Medical History: Cancer, Fibromyalgia Additional Family Medical History / Comment(s): Drugs and alcohol - of what patient calls "septicemia" Father Family Medical History: Cancer, Coronary Artery Disease (CAD), Hyperlipidemia, Hypertension Additional Family Medical History / Comment(s): Skin cancer. Medications and Allergies Home Medications Medication Instructions Recorded Confirmed Type Levothyroxine Sodium [Synthroid] 25 mcg PO DAILY 08/15/16 02/23/24 History FLUoxetine HCL [PROzac] 40 mg PO DAILY 07/25/20 02/23/24 History Gabapentin [Neurontin] 300 mg PO BID 08/03/22 02/23/24 History Atorvastatin [Lipitor] 80 mg PO HS 04/04/23 02/23/24 History Gabapentin 600 mg PO BID 04/04/23 02/23/24 History carBAMazepine [carBAMazepine ER] 100 mg PO BID 04/04/23 02/23/24 History levETIRAcetam [Keppra] 750 mg PO BID 07/19/23 02/23/24 History Furosemide [Lasix] 40 mg PO BID@0900,1300 08/08/23 02/23/24 History Ferrous Sulfate [Iron (65 MG 325 mg PO DAILY 09/10/23 02/23/24 History Elemental)] traZODone HCL [Desyrel] 100 mg PO HS 09/10/23 02/23/24 History ALPRAZolam [Xanax] 0.25 mg PO DAILY 01/23/24 02/23/24 History Albuterol Inhaler [Ventolin Hfa 2 puff INHALATION RT-Q6H PRN 01/23/24 02/23/24 History Inhaler] HYDROcodone/APAP 7.5-325MG [[place] 1 tab PO BID 01/23/24 02/23/24 History 7.5-325] Aspirin 81 mg PO DAILY tab 01/31/24 02/23/24 Rx Clopidogrel [Plavix] 75 mg PO DAILY 02/23/24 02/23/24 History Allergies Allergy/AdvReac Type Severity Reaction Status Date / Time erythromycin base Allergy Rash/Hives Verified 02/23/24 14:23 Fish Containing Products Allergy Anaphylaxis Verified 02/23/24 14:23 Penicillins Allergy Anaphylaxis Verified 02/23/24 14:23 shellfish derived [Shellfish] Allergy Anaphylaxis Verified 02/23/24 14:23 levofloxacin [From Levaquin] AdvReac Rash/Hives, Verified 02/23/24 14:23 swelling Physical Exam Vitals: Vital Signs Temp Pulse Pulse Resp BP BP Pulse Ox 02/24/24 08:00 98.2 F 79 18 125/68 95 02/24/24 06:48 76 18 126/53 95 02/24/24 00:50 67 18 114/40 97 02/23/24 18:31 70 18 108/48 94 L 02/23/24 18:00 72 18 110/42 94 L 02/23/24 17:00 69 18 116/61 94 L 02/23/24 16:00 66 18 118/47 94 L 11/06/24 15:00 68 18 114/75 94 L 02/23/24 14:00 68 18 109/45 94 L 02/23/24 13:00 69 18 100/44 96 02/23/24 12:00 69 18 101/62 96 Intake and Output 02/23/24 02/24/24 02/24/24 22:59 06:59 14:59 Intake Total 20 Balance 20 Intake: Intake, IV Titration 20 Amount cefTRIAXone 2 gm In 20 Sodium Chloride 0.9% 50 ml @ 100 mls/hr IVPB Q24H [facility] Rx#:[id number] Other: # Bowel Movements 4 Weight 76.204 kg General appearance: The patient is alert, oriented, appears in no acute d istress. HET: Head is normocephalic and atraumatic. Conjunctiva pink. Sclera anicteric. Neck: Supple without lymphadenopathy. Trachea midline. Heart: Regular. Lungs: Equal expansion, normal respiratory effort. Abdomen: Soft, nontender, nondistended. Skin: No rashes. No jaundice. Extremities: Normal skin color and turgor. No pedal edema. Neurological: No focal deficits. Alert and oriented x3. Results CBC & Chem 7: 02/23/24 10:51 02/23/24 10:51 Labs: Abnormal Lab Results - Last 24 Hours (Table) 02/23/24 02/23/24 02/23/24 Range/Units 10:51 10:51 10:51 RBC 3.23 L (3.80-5.40) m/uL Hgb 9.2 L (11.4-16.0) gm/dL Hct 29.0 L (34.0-46.0) % RDW 16.5 H (11.5-15.5) % Sodium 136 L (137-145) mmol/L Potassium 3.3 L (3.5-5.1) mmol/L Glucose 141 H (74-99) mg/dL Calcium 7.8 L (8.4-10.2) mg/dL AST 42 H (14-36) U/L ALT 47 H (4-34) U/L Total Protein 5.2 L (6.3-8.2) g/dL Albumin 2.9 L (3.5-5.0) g/dL Urine Appearance Cloudy H (Clear) Urine Protein 1+ H (Negative) Urine Blood Small H (Negative) Ur Leukocyte Esterase Large H (Negative) Urine RBC 20 H (0-5) /hpf Urine WBC >182 H (0-5) /hpf Amorphous Sediment Rare H (None) /hpf Urine Bacteria Rare H (None) /hpf Urine Mucus Rare H (None) /hpf Urine Yeast (Budding) Many H (None) /hpf Assessment and Plan (1) Chronic anemia Narrative/Plan: 74-year-old female with multiple comorbidities with longstanding history of anemia currently on iron pills who presented with a hemoglobin of 9.0 with no gross signs of GI bleed. Iron studies and ferritin currently pending. Patient with a normochromic normocytic anemia likely secondary to anemia of chronic disease and as previously stated long history of anemia on iron supplement. No plans on endoscopic evaluation at this time. Patient prefers to follow with Dr. Mcmahan for endoscopic evaluation which is reasonable to be done as an outpatient as patient has no signs of GI bleed. Current Visit: Yes Status: Acute Code(s): D64.9 - ANEMIA, UNSPECIFIED SNOMED Code(s): 514447168 (2) History of anal cancer Current Visit: Yes Status: Acute Code(s): Z85.048 - PRSNL HX OF MALIG NEOPLM OF RECTUM, RECTOSIG JUNCT, AND ANUS SNOMED Code(s): 760492933155624 (3) Falls Current Visit: Yes Status: Acute Code(s): R29.6 - REPEATED FALLS SNOMED Code(s): 183217443 (4) Weakness Current Visit: Yes Status: Acute Code(s): R53.1 - WEAKNESS SNOMED Code(s): 95527710 (5) COPD (chronic obstructive pulmonary disease) Current Visit: No Status: Acute Code(s): J44.9 - CHRONIC OBSTRUCTIVE PULMONARY DISEASE, UNSPECIFIED SNOMED Code(s): 59058235 (6) Diabetes Current Visit: No Status: Acute Code(s): E11.9 - TYPE 2 DIABETES MELLITUS WITHOUT COMPLICATIONS SNOMED Code(s): 93390762 (7) Lung mass Current Visit: No Status: Acute Priority: Medium Code(s): R91.8 - OTHER NONSPECIFIC ABNORMAL FINDING OF LUNG FIELD SNOMED Code(s): 728270441 Plan: 1. Continue symptomatic and supportive care 2. Diet as tolerated 3. Await iron studies and ferritin 4. Daily CBC, transfuse for hemoglobin less than 7 5. Continue oral iron as ordered 6. Protonix 40 mg daily for GI prophylaxis 7. No plans on endoscopic evaluation at this time. Patient would like to follow-up with Dr. Bay in outpatient setting Thank you for this consultation, we will continue to follow. Dr. Jose Ramon Correa I agree with the dictator's note, documented as a scribe by Junie Lawrence.
[2024-02-24 15:41] LABS: % Iron Saturation 11.89 (12.00-45.00)
--- NOTE | 2024-02-24 18:14 | P.HPIM ---
History of Present Illness H&P Date: 02/24/24 Alexia Rubin, is a 74-year-old female who presented to [facility] emergency room with a chief complaint of generalized weakness and multiple falls, patient was recently hospitalized, and transferred to [facility] for rehabilitation, she was recently discharged home, however she continued to have severe weakness and multiple falls, she was brought back by her family to the emergency room for further evaluation and treatment and possible readmission to the correction. She was evaluated in the emergency room vital examination on presentation revealed a temperature of 97.8 pulse 70 respiration 18 blood pressure 94/69 pulse ox 99% on room air Laboratory data revealed a white blood count of 9.4 hemoglobin 9.2 platelet count 347 sodium 136 potassium 3.3 chloride 103 CO2 26 BUN 10 creatinine 0.62 lactic acid 1.5, urine analysis revealed evidence of urinary tract infection Testing in the emergency room revealed EKG done in the emergency room revealed sinus rhythm with occasional supraventricular premature complexes, x-ray of the left knee done in the emergency room revealed moderate left joint effusion, chest x-ray was done in the emergency room and revealed evidence for pulmonary edema. 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 ,States yeast infection in genital area and folds of abd., diet controlled diabetes., has stimulator left hip for back pain (not working)., PAD. Recent diagosis of lung cancer History of Any Multi-Drug Resistant Organisms: None Reported Past Surgical History: Appendectomy, Back Surgery, Bladder Surgery, Cholecystectomy, Hysterectomy, Joint Replacement Additional Past Surgical History / Comment(s): Bilateral knee replacements, right shoulder rotator cuff X2, bilateral iliac femoral stents, bladder suspension X2, right Mediport removed, left lung biopsy, lymph node biopsy, left groin biopsy(malignant). bilateral carpal tunnel, bilateral cataracts, right shoulder replacement. stimulator in hip (left) for back, bilateral iliac arterial stents., R femoral stent Past Anesthesia/Blood Transfusion Reactions: No Reported Reaction, Family History of Problems w/ Anesthesia Additional Past Anesthesia/Blood Transfusion Reaction / Comment(s): [place] hobic., vomited and aspirated during colonoscopy. son had difficulty waking up after surgery Past Psychological History: Anxiety, Depression Smoking Status: Former smoker Past Alcohol Use History: None Reported Past Drug Use History: None Reported - Past Family History Sister(s) Family Medical History: Cancer Additional Family Medical History / Comment(s): Lung cancer. other sister heart failure Brother(s) Family Medical History: Cancer Additional Family Medical History / Comment(s): Lung cancer. Mother Family Medical History: Cancer, Fibromyalgia Additional Family Medical History / Comment(s): Drugs and alcohol - of what patient calls "septicemia" Father Family Medical History: Cancer, Coronary Artery Disease (CAD), Hyperlipidemia, Hypertension Additional Family Medical History / Comment(s): Skin cancer. Medications and Allergies Home Medications Medication Instructions Recorded Confirmed Type Levothyroxine Sodium [Synthroid] 25 mcg PO DAILY 08/15/16 02/23/24 History FLUoxetine HCL [PROzac] 40 mg PO DAILY 07/25/20 02/23/24 History Gabapentin [Neurontin] 300 mg PO BID 08/03/22 02/23/24 History Atorvastatin [Lipitor] 80 mg PO HS 04/04/23 02/23/24 History Gabapentin 600 mg PO BID 04/04/23 02/23/24 History carBAMazepine [carBAMazepine ER] 100 mg PO BID 04/04/23 02/23/24 History levETIRAcetam [Keppra] 750 mg PO BID 07/19/23 02/23/24 History Furosemide [Lasix] 40 mg PO BID@0900,1300 08/08/23 02/23/24 History Ferrous Sulfate [Iron (65 MG 325 mg PO DAILY 09/10/23 02/23/24 History Elemental)] traZODone HCL [Desyrel] 100 mg PO HS 09/10/23 02/23/24 History ALPRAZolam [Xanax] 0.25 mg PO DAILY 01/23/24 02/23/24 History Albuterol Inhaler [Ventolin Hfa 2 puff INHALATION RT-Q6H PRN 01/23/24 02/23/24 History Inhaler] HYDROcodone/APAP 7.5-325MG [[place] 1 tab PO BID 01/23/24 02/23/24 History 7.5-325] Aspirin 81 mg PO DAILY tab 01/31/24 02/23/24 Rx Clopidogrel [Plavix] 75 mg PO DAILY 02/23/24 02/23/24 History Allergies Allergy/AdvReac Type Severity Reaction Status Date / Time erythromycin base Allergy Rash/Hives Verified 02/23/24 14:23 Fish Containing Products Allergy Anaphylaxis Verified 02/23/24 14:23 Penicillins Allergy Anaphylaxis Verified 02/23/24 14:23 shellfish derived [Shellfish] Allergy Anaphylaxis Verified 02/23/24 14:23 levofloxacin [From Levaquin] AdvReac Rash/Hives, Verified 02/23/24 14:23 swelling Physical Exam Vitals: Vital Signs Temp Pulse Pulse Resp BP BP Pulse Ox 02/24/24 08:00 98.2 F 79 18 125/68 95 02/24/24 06:48 76 18 126/53 95 02/24/24 00:50 67 18 114/40 97 02/23/24 18:31 70 18 108/48 94 L 02/23/24 18:00 72 18 110/42 94 L 02/23/24 17:00 69 18 116/61 94 L 02/23/24 16:00 66 18 118/47 94 L 02/23/24 15:00 68 18 114/75 94 L 02/23/24 14:00 68 18 109/45 94 L 02/23/24 13:00 69 18 100/44 96 02/23/24 12:00 69 18 101/62 96 02/23/24 10:08 69 02/23/24 10:02 97.8 F 70 18 94/69 99 In general patient is alert and oriented x 3 in no distress HEENT head normocephalic and atraumatic Neck is supple no JVD no goiter no lymphadenopathy no carotid bruit Chest examination is clear to auscultation no crackles no wheezing Cardiac exam reveals regular heart sounds S1 and S2 no gallops no murmurs Abdomen is soft nontender no organomegaly with normal bowel sounds Extremity exam reveals no edema no cyanosis or clubbing Neurological examination reveals no gross focal deficits Results CBC & Chem 7: 02/23/24 10:51 02/23/24 10:51 Labs: Abnormal Lab Results - Last 24 Hours (Table) 02/23/24 02/23/24 02/23/24 Range/Units 10:51 10:51 10:51 RBC 3.23 L (3.80-5.40) m/uL Hgb 9.2 L (11.4-16.0) gm/dL Hct 29.0 L (34.0-46.0) % RDW 16.5 H (11.5-15.5) % Sodium 136 L (137-145) mmol/L Potassium 3.3 L (3.5-5.1) mmol/L Glucose 141 H (74-99) mg/dL Calcium 7.8 L (8.4-10.2) mg/dL AST 42 H (14-36) U/L ALT 47 H (4-34) U/L Total Protein 5.2 L (6.3-8.2) g/dL Albumin 2.9 L (3.5-5.0) g/dL Urine Appearance Cloudy H (Clear) Urine Protein 1+ H (Negative) Urine Blood Small H (Negative) Ur Leukocyte Esterase Large H (Negative) Urine RBC 20 H (0-5) /hpf Urine WBC >182 H (0-5) /hpf Amorphous Sediment Rare H (None) /hpf Urine Bacteria Rare H (None) /hpf Urine Mucus Rare H (None) /hpf Urine Yeast (Budding) Many H (None) /hpf Assessment and Plan Plan: Generalized weakness with multiple falls Anemia, will check stools for Hemoccult, check iron vitamin B12 and folate level, consult gastroenterology for GI workup Urinary tract infection Underlying history of hypertension Underlying history of hyperlipidemia Underlying history of hypothyroidism Underlying history of seizure activity maintained on Keppra Underlying history of depression with anxiety disorder Chest x-ray revealing pulmonary edema, will check BNP and echocardiogram At this time patient is admitted to medical floor Home medications reviewed and reordered Neurology consultation requested Consultation for gastroenterology and neurology initiated Will check echocardiogram For DVT prophylaxis subcu Lovenox Will follow closely
[2024-02-24] MEDS ORDERED: Potassium Replacement Protocol 1 EACH MISC MISCELLANE PRN (19:22)
--- NOTE | 2024-02-24 20:34 | US ---
EXAMINATION TYPE: US carotid duplex BILAT DATE OF EXAM: 02/24/2024 COMPARISON: US 10/18/20 CLINICAL INDICATION: Female, 74 years old with history of Falls; Falls. Patient states right ICA occl usion TECHNIQUE: Grayscale, color Doppler and spectral Doppler evaluation of the bilateral carotid systems and vertebral arteries. Indirect Doppler criteria was utilized. FINDINGS: EXAM MEASUREMENTS: RIGHT: Peak Systolic Velocity (PSV) cm/sec ----- Right CCA: 74.1 ----- Right ICA: 0.0, Occluded ----- Right ECA: 181.0 ICA/CCA ratio: 0.0 RIGHT: End Diastole cm/sec ----- Right CCA: 0.0 ----- Right ICA: 0.0 ----- Right ECA: 9.1 LEFT: Peak Systolic Velocity (PSV) cm/sec ----- Left CCA: 112.9 ----- Left ICA: 148.6 ----- Left ECA: 114.5 ICA/CCA ratio: 1.3 LEFT: End Diastole cm/sec ----- Left CCA: 13.7 ----- Left ICA: 37.5 ----- Left ECA: 12.8 VERTEBRALS (direction of flow): Right Vertebral: Antegrade Left Vertebral: Antegrade Rhythm: Normal [employer] NOTES: Occlusion of the right ICA as seen on priors. Plaque seen bilaterally. Elevated ve locity seen within the left ICA. The degree of stenosis visually appears greater than the moderate ca lculation between 50 and 69% based on the velocity. This is slightly increased from comparison Color Doppler imaging shows patency with blood flow throughout the carotid artery. Spectral waveforms are within normal limits. IMPRESSION: 1. Right ICA occlusion. This was present previously. 2. 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 The velocities of this is between 50 and 69% but visually appears greater. Criteria for Assigning % of Stenosis / Diameter reduction (Estimation based on the indirect measurements of the internal carotid artery velocities (ICA PSV). 1. Normal (no stenosis)=ICA PSV < 125 cm/s: ratio < 2.0: ICA EDV<40 cm/s. 2. Less than 50% stenosis=ICA PSV < 125 cm/s: ratio < 2.0: ICA EDV<40 cm/s. 3. 50 to 69% stenosis=ICA PSV of 125 to 230 cm/s: ration 2.0 ? 4.0: ICA EDV 40-100 cm/s. 4. Greater than 70% stenosis to near occlusion= ICA PSV > 230 cm/s: ratio > 4.0: ICA EDV > 100 cm/s. 5. Near occlusion= ICA PSV velocities may be low or undetectable: variable ratio and ICA EDV. 6. Total occlusion=unable to detect flow. [facility], , 02/24/2024 8:31 PM
[2024-02-24] MEDS: traZODone HCL 100 MG TAB PO SCH (21:15)
[2024-02-24] MEDS: GABAPENTIN 300 MG CAP PO SCH ×2 (21:15→21:19)
[2024-02-24] MEDS: POTASSIUM CHLORIDE ER 20 MEQ TAB.ER PO SCH (21:15)
[2024-02-24] MEDS: carBAMazepine 100 MG TAB.ER.12H PO SCH (21:15)
[2024-02-24] MEDS: ATORVASTATIN 80 MG TAB PO SCH (21:15)
[2024-02-24] MEDS: HYDROcodone/APAP 7.5-325MG 1 EACH TAB PO SCH (21:16)
[2024-02-25] MEDS: LEVOTHYROXINE 25 MCG TAB PO SCH (05:57)
--- NOTE | 2024-02-25 09:17 | P.PN ---
Subjective Progress Note Date: 02/25/24 Principal diagnosis: Anemia This is a pleasant 74-year-old female who presented to the emergency department after sustaining a fall yesterday with complaints of pain in her knees. 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 She is on aspirin 81 mg daily and Plavix for peripheral arterial disease. Denies any regular NSAID use. Patient states she has had anemia for many many years and takes iron daily. She denies any blood in her stool or black stool. States her stools are dark from her iron but no darker. Denies any abdominal pain, nausea or vomiting and no rectal bleeding. Her last colonoscopy was in December [address] Chan with reported findings of 15 colon polyps status post polypectomy with the recommendation of repeat colonoscopy in 1 year. Patient states she does not want to follow with Dr. Chan and has set up appointments with Dr. Bay for colonoscopy. 02/25/2024 Patient seen and examined today as a follow-up. She denies any abdominal pain, nausea or vomiting. It was noticed that C. difficile and stool culture was ord ered, patient states she was having some diarrhea prior to coming into the hospital but since she has been hospitalized she has not had any bowel movements. No repeat labs available today, iron 27 TIBC 227 saturation 11.89 ferritin still pending. Plan is for patient to do outpatient follow-up with Dr. Bay from general surgery for colonoscopy and possible upper endoscopy. Objective - Vital Signs Vital signs: Vital Signs Temp 97.8 F 02/25/24 02:00 Pulse 65 02/25/24 02:00 Resp 15 02/25/24 02:00 BP 98/62 02/25/24 02:00 Pulse Ox 97 02/25/24 02:00 FiO2 Intake & Output 02/24/24 02/25/24 02/25/24 18:59 06:59 18:59 Intake Total 20 Balance 20 Weight 76.204 kg Intake: Intake, IV Titration 20 Amount cefTRIAXone 2 gm In 20 Sodium Chloride 0.9% 50 ml @ 100 mls/hr IVPB Q24H [facility] Rx#:[id number] Other: Voiding Method External Catheter # Bowel Movements 4 - Exam General appearance: The patient is alert, oriented, appears in no acute distress. HET: Head is normocephalic and atraumatic. Conjunctiva pink. Sclera anicteric. Neck: Supple without lymphadenopathy. Abdomen: Soft, nontender, nondistended with bowel sounds. No guarding or rigidity. Extremities: Normal skin color and turgor. No pedal edema Skin: No rashes, no jaundice Neurological: No focal deficits. Alert and oriented. - Labs CBC & Chem 7: 02/23/24 10:51 02/23/24 10:51 Labs: Abnormal Lab Results - Last 24 Hours (Table) 02/23/24 02/23/24 Range/Units 10:51 10:51 Iron 27 L (50-170) UG/DL TIBC 227 L (228-460) UG/DL % Saturation 11.89 L (12.00-45.00) Transferrin 162.0 L (204.0-354.0) mg/dL Folate 4.20 L (4.40-31.00) ng/mL Microbiology - Last 24 Hours (Table) 02/23/24 10:51 Urine Culture - Final Urine,Clean Catch Assessment and Plan (1) Chronic anemia Narrative/Plan: 74-year-old female with multiple comorbidities with longstanding history of anemia currently on iron pills who presented with a hemoglobin of 9.0 with no gross signs of GI bleed. Iron studies and ferritin currently pending. Patient with a normochromic normocytic anemia likely secondary to anemia of chronic disease and as previously stated long history of anemia on iron supplement. No plans on endoscopic evaluation at this time. Patient prefers to follow with Dr. Mcmahan for endoscopic evaluation which is reasonable to be done as an outpatient as patient has no signs of GI bleed. Current Visit: Yes Status: Acute Code(s): D64.9 - ANEMIA, UNSPECIFIED SNOMED Code(s): 110683434 (2) History of anal cancer Current Visit: Yes Status: Acute Code(s): Z85.048 - PRSNL HX OF MALIG NEOPLM OF RECTUM, RECTOSIG JUNCT, AND ANUS SNOMED Code(s): 468026220068495 (3) Falls Current Visit: Yes Status: Acute Code(s): R29.6 - REPEATED FALLS SNOMED Code(s): 539083706 (4) Weakness Current Visit: Yes Status: Acute Code(s): R53.1 - WEAKNESS SNOMED Code(s): 18828458 (5) COPD (chronic obstructive pulmonary disease) Current Visit: No Status: Acute Code(s): J44.9 - CHRONIC OBSTRUCTIVE PULMONARY DISEASE, UNSPECIFIED SNOMED Code(s): 06113527 (6) Diabetes Current Visit: No Status: Acute Code(s): E11.9 - TYPE 2 DIABETES MELLITUS WITHOUT COMPLICATIONS SNOMED Code(s): 07555812 (7) Lung mass Current Visit: No Status: Acute Priority: Medium Code(s): R91.8 - OTHER NONSPECIFIC ABNORMAL FINDING OF LUNG FIELD SNOMED Code(s): 846179539 Plan: 1. Continue symptomatic and supportive care 2. Diet as tolerated 3. Await iron studies and ferritin 4. Daily CBC, transfuse for hemoglobin less than 7 5. Continue oral iron as ordered 6. Protonix 40 mg daily for GI prophylaxis 7. No plans on endoscopic evaluation at this time. Patient would like to follow-up with Dr. Bay in outpatient setting Thank you for this consultation, we will sign off at this time. Dr. Jose Ramon Correa I agree with the dictator's note, documented as a scribe by Junie Lawrence.
[2024-02-25] MEDS: ALPRAZolam 0.25 MG TAB PO SCH (09:48)
[2024-02-25] MEDS: CLOPIDOGREL 75 MG TAB PO SCH (09:49)
[2024-02-25] MEDS: FERROUS SULFATE 325 MG TAB PO SCH (09:49)
[2024-02-25] MEDS: FLUoxetine HCL 20 MG CAP PO SCH (09:49)
--- NOTE | 2024-02-25 09:54 | P.PN ---
Subjective Progress Note Date: 02/25/24 Alexia Rubin, is a 74-year-old female who presented to [facility] emergency room with a chief complaint of generalized weakness and multiple falls, patient was recently hospitalized, and transferred to [facility] for rehabilitation, she was recently discharged home, however she continued to have severe weakness and multiple falls, she was brought back by her family to the emergency room for further evaluation and treatment and [facility] to the [facility]. She was evaluated in the emergency room vital examination on presentation revealed a temperature of 97.8 pulse 70 respiration 18 blood pressure 94/69 pulse ox 99% on room air Laboratory data revealed a white blood count of 9.4 hemoglobin 9.2 platelet count 347 sodium 136 potassium 3.3 chloride 103 CO2 26 BUN 10 creatinine 0.62 lactic acid 1.5, urine analysis revealed evidence of urinary tract infection Testing in the emergency room revealed EKG done in the emergency room revealed sinus rhythm with occasional supraventricular premature complexes, x-ray of the left knee done in the emergency room revealed moderate left joint effusion, chest x-ray was done in the emergency room and revealed evidence for pulmonary edema. Patient was admitted to medical floor for further evaluation and treatment On 02/25/2024 patient's alert and oriented x 3. Repeat labs have been ordered. Carotid Doppler showing some stenosis will consult Dr. Espinal for vascular surgery. GI recommending outpatient follow-up with Dr. hall still awaiting neurology input. Current vital signs temp 97.8, heart rate 65, respiratory rate 15, blood pressure 105/51 with a pulse ox of 97% on 4 L Objective - Vital Signs Vital signs: Vital Signs Temp 97.3 F L 02/25/24 07:54 Pulse 66 02/25/24 07:54 Resp 17 02/25/24 07:54 BP 105/51 02/25/24 07:54 Pulse Ox 97 02/25/24 07:54 FiO2 Intake & Output 02/24/24 02/25/24 02/25/24 18:59 06:59 18:59 Intake Total 20 Balance 20 Weight 76.204 kg Intake: Intake, IV Titration 20 Amount cefTRIAXone 2 gm In 20 Sodium Chloride 0.9% 50 ml @ 100 mls/hr IVPB Q24H [facility] Rx#:[id number] Other: Voiding Method External Catheter External Catheter # Bowel Movements 4 - Exam In general patient is alert and oriented x 3 in no distress HEENT head normocephalic and atraumatic Neck is supple no JVD no goiter no lymphadenopathy no carotid bruit Chest examination is clear to auscultation no crackles no wheezing Cardiac exam reveals regular heart sounds S1 and S2 no gallops no murmurs Abdomen is soft nontender no organomegaly with normal bowel sounds Extremity exam reveals no edema no cyanosis or clubbing Neurological examination reveals no gross focal deficits - Labs CBC & Chem 7: 02/23/24 10:51 02/23/24 10:51 Labs: Abnormal Lab Results - Last 24 Hours (Table) 02/23/24 02/23/24 Range/Units 10:51 10:51 Iron 27 L (50-170) UG/DL TIBC 227 L (228-460) UG/DL % Saturation 11.89 L (12.00-45.00) Transferrin 162.0 L (204.0-354.0) mg/dL Folate 4.20 L (4.40-31.00) ng/mL Microbiology - Last 24 Hours (Table) 02/23/24 10:51 Urine Culture - Final Urine,Clean Catch Assessment and Plan Plan: Generalized weakness with multiple falls Anemia, will check stools for Hemoccult, check iron vitamin B12 and folate level, consult gastroenterology for GI workup Urinary tract infection Underlying history of hypertension Underlying history of hyperlipidemia Underlying history of hypothyroidism Underlying history of seizure activity maintained on Keppra Underlying history of depression with anxiety disorder Chest x-ray revealing pulmonary edema, will check BNP and echocardiogram At this time patient is admitted to medical floor Home medications reviewed and reordered Neurology consultation requested Consultation for gastroenterology and neurology initiated Will check echocardiogram For DVT prophylaxis subcu Lovenox Will follow closely
[2024-02-25 11:34] LABS: Anisocytosis Slight; Basophils % (A) 0 %; Eosinophils # (A) 0.3 k/uL (0-0.7); Eosinophils % (A) 3 %; HCT 34.5 % (34.0-46.0); HGB 10.3 gm/dL (11.4-16.0); Hypochromasia Marked; Lymphocytes # (A) 1.7 k/uL (1.0-4.8); Lymphocytes % (A) 16 %; MCH 27.5 pg (25.0-35.0); MCHC 29.7 g/dL (31.0-37.0); MCV 92.7 fL (80.0-100.0); Mean Platelet Volume 7.8; Monocytes # (A) 0.4 k/uL (0-1.0); Monocytes % (A) 4 %; Neutrophils # (A) 7.4 k/uL (1.3-7.7); Neutrophils % (A) 73 %; Platelet Count 318 k/uL (150-450); RBC 3.72 m/uL (3.80-5.40); RDW 16.1 % (11.5-15.5); WBC 10.2 k/uL (3.8-10.6)
--- NOTE | 2024-02-25 12:07 | P.GSCN ---
History of Present Illness Consult date: 02/25/24 Reason for Consult: Carotid stenosis Requesting physician: Lisseth Isaac History of present illness: This is a pleasant 74-year-old female who presented to the emergency department after sustaining a fall with complaints of pain in her knees. Apparently patient stays with her daughter and her daughter was trying to get her into bed from her wheelchair and she dropped her. The patient landed on her knees and came in with complaints of knee pain. She was recently discharged from [facility]. She has a past medical history including peripheral arterial disease known to our service, chronic anemia, COPD, CVA/TIA, diabetes mellitus, hyperlipidemia, thyroid disorder, squamous cell anal cancer with current diagnosis of lung mass that has not been further worked up yet. She is on aspirin 81 mg daily and Plavix for peripheral arterial disease. Has history of rightFemoral to anterior tibial artery bypass with CryoVein. She now follows with Dr. Rafael Valenzuela out of [facility]. Patient denies any focal deficits. She had a carotid duplex was ordered by her PCP and reported occluded right ICA and moderate left ICA stenosis. Vascular surgery was consulted for carotid stenosis. Again patient denies any focal deficits, no difficulty with speech, swallowing, no visual disturbances, and she has generalized weakness not one-sided weakness. Apparently patient also had some diarrhea prior to coming into the hospital. She denies any abdominal pain, nausea or vomiting. She has history of chronic anemia and is on iron. Review of Systems A 14 point review systems was completed all pertinent positives and negatives as stated in the HPI. 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 ,States yeast infection in genital area and folds of abd., diet controlled diabetes., has stimulator left hip for back pain (not working)., PAD. Recent diagosis of lung cancer History of Any Multi-Drug Resistant Organisms: None Reported Past Surgical History: Appendectomy, Back Surgery, Bladder Surgery, Cholecystectomy, Hysterectomy, Joint Replacement Additional Past Surgical History / Comment(s): Bilateral knee replacements, right shoulder rotator cuff X2, bilateral iliac femoral stents, bladder suspension X2, right Mediport removed, left lung biopsy, lymph node biopsy, left groin biopsy(malignant). bilateral carpal tunnel, bilateral cataracts, right shoulder replacement. stimulator in hip (left) for back, bilateral iliac arterial stents., R femoral stent Past Anesthesia/Blood Transfusion Reactions: No Reported Reaction, Family History of Problems w/ Anesthesia Additional Past Anesthesia/Blood Transfusion Reaction / Comm: Claustrophobic., vomited and aspirated during colonoscopy. son had difficulty waking up after surgery Past Psychological History: Anxiety, Depression Smoking Status: Former smoker Past Alcohol Use History: None Reported Past Drug Use History: None Reported - Past Family History Sister(s) Family Medical History: Cancer Additional Family Medical History / Comment(s): Lung cancer. other sister heart failure Brother(s) Family Medical History: Cancer Additional Family Medical History / Comment(s): Lung cancer. Mother Family Medical History: Cancer, Fibromyalgia Additional Family Medical History / Comment(s): Drugs and alcohol - of what patient calls "septicemia" Father Family Medical History: Cancer, Coronary Artery Disease (CAD), Hyperlipidemia, Hypertension Additional Family Medical History / Comment(s): Skin cancer. Medications and Allergies Home Medications Medication Instructions Recorded Confirmed Type Levothyroxine Sodium [Synthroid] 25 mcg PO DAILY 08/15/16 02/23/24 History FLUoxetine HCL [PROzac] 40 mg PO DAILY 07/25/20 02/23/24 History Gabapentin [Neurontin] 300 mg PO BID 08/03/22 02/23/24 History Atorvastatin [Lipitor] 80 mg PO HS 04/04/23 02/23/24 History Gabapentin 600 mg PO BID 04/04/23 02/23/24 History carBAMazepine [carBAMazepine ER] 100 mg PO BID 04/04/23 02/23/24 History levETIRAcetam [Keppra] 750 mg PO BID 07/19/23 02/23/24 History Furosemide [Lasix] 40 mg PO BID@0900,1300 08/08/23 02/23/24 History Ferrous Sulfate [Iron (65 MG 325 mg PO DAILY 09/10/23 02/23/24 History Elemental)] traZODone HCL [Desyrel] 100 mg PO HS 09/10/23 02/23/24 History ALPRAZolam [Xanax] 0.25 mg PO DAILY 01/23/24 02/23/24 History Albuterol Inhaler [Ventolin Hfa 2 puff INHALATION RT-Q6H PRN 01/23/24 02/23/24 History Inhaler] HYDROcodone/APAP 7.5-325MG [[place] 1 tab PO BID 01/23/24 02/23/24 History 7.5-325] Aspirin 81 mg PO DAILY tab 01/31/24 02/23/24 Rx Clopidogrel [Plavix] 75 mg PO DAILY 02/23/24 02/23/24 History Allergies Allergy/AdvReac Type Severity Reaction Status Date / Time erythromycin base Allergy Rash/Hives Verified 02/23/24 14:23 Fish Containing Products Allergy Anaphylaxis Verified 02/23/24 14:23 Penicillins Allergy Anaphylaxis Verified 02/23/24 14:23 shellfish derived [Shellfish] Allergy Anaphylaxis Verified 02/23/24 14:23 levofloxacin [From Levaquin] AdvReac Rash/Hives, Verified 02/23/24 14:23 swelling Surgical - Exam Vital Signs Temp Pulse Resp BP Pulse Ox 97.8 F 70 18 94/69 99 02/23/24 10:02 02/23/24 10:02 02/23/24 10:02 02/23/24 10:02 02/23/24 10:02 General appearance: The patient is alert, oriented, appears in no acute distress. HET: Head is normocephalic and atraumatic. Pupils are equal and reactive. Neck: Supple. No carotid bruit. Heart: Regular. Lungs: Equal expansion, normal respiratory effort. Abdomen: Soft, nontender, nondistended. Extremities: Normal skin color and turgor. Palpable radial pulses. Right TMA well-healed. Neurological: No focal deficits. Strength and sensation are grossly intact. Results - Labs 02/25/24 11:08 02/23/24 10:51 Abnormal Lab Results - Last 24 Hours (Table) 02/23/24 02/23/24 Range/Units 10:51 10:51 Iron 27 L (50-170) UG/DL TIBC 227 L (228-460) UG/DL % Saturation 11.89 L (12.00-45.00) Transferrin 162.0 L (204.0-354.0) mg/dL Folate 4.20 L (4.40-31.00) ng/mL Microbiology - Last 24 Hours (Table) 02/23/24 10:51 Urine Culture - Final Urine,Clean Catch - Imaging Comments: Carotid duplex reports right ICA occluded. Left ICA PSV 148.6 ICA/CCA ratio 1.3. Impression reads right ICA occlusion. This was present previously. Artheromatous plaquing with sever left carotid bulb stenosis. Velocities of this is between 50 and 69% but visually appears greater. Using the updated recommendations for carotid stenosis interpretation criteria left ICA less than 50% stenosis Assessment and Plan Assessment: 1. Generalized weakness 2. Right ICA occlusion, asymptomatic left internal carotid artery with less than 50% stenosis 3. Fall, patient reports daughter had dropped her while assisting to bed 4. Knee pain 5. Diabetes mellitus 6. Peripheral vascular disease status post TMA 7. Chronic anemia 8. History of anal cancer 9. Lung mass 10. COPD Plan: Carotid duplex reviewed. Using updated criteria there is less than 50% stenosis of the left ICA and right ICA is occluded. No further workup indicated at this time. There is no indication for any vascular surgical intervention. Patient can follow-up with her vascular surgereonin for repeat carotid duplex in the office. Thank you for this consultation, we will sign off at this time. The impression and plan of care has been dictated as directed. Dr. Brothers I performed a history and examination of this patient, discussed the same with the dictator. I agree with the dictator's note ,documented as a scribe. Any additional findings or plans will be noted.
[2024-02-25 12:15] LABS: ALT 41 U/L (4-34); AST 43 U/L (14-36); African American GFR (CKD) >90 (>60 ml/min/1.73 sqM); Albumin 3.2 g/dL (3.5-5.0); Albumin/Globulin Ratio 1.2; Alkaline Phosphatase 83 U/L (38-126); Anion Gap 9 mmol/L; Blood Urea Nitrogen 11 mg/dL (7-17); Calcium 8.5 mg/dL (8.4-10.2); Carbon Dioxide 23 mmol/L (22-30); Chloride 102 mmol/L (98-107); Globulin 2.7 g/dL; Glucose 115 mg/dL (74-99); Non-African American GFR(CKD) 88 (>60 ml/min/1.73 sqM); Potassium 3.8 mmol/L (3.5-5.1); Sodium 134 mmol/L (137-145); Total Bilirubin 0.4 mg/dL (0.2-1.3); Total Protein 5.9 g/dL (6.3-8.2)
--- NOTE | 2024-02-25 12:44 | CT ---
EXAMINATION TYPE: CT brain cspine wo con CT DLP: 1352.1 mGycm, Automated exposure control for dose reduction was used. DATE OF EXAM: 02/25/2024 12:34 PM COMPARISON: CT brain C-spine 09/10/2023. CLINICAL INDICATION:Female, 74 years old with history of recurrent falls; fall a few days ago/ no aurora n TECHNIQUE: Brain: Multiple axial CT images of the brain were obtained without IV contrast. Cspine: Axial CT images from the skull base to the inferior aspect of T2 we obtained without intraven ous contrast. Coronal and sagittal reformatted images were also reviewed. FINDINGS: Brain: Extra-axial spaces: No abnormal extra-axial fluid collections. Ventricular system: Within normal limits Cerebral parenchyma: Cerebral atrophy. No acute intraparenchymal hemorrhage or mass effect. Remote la cunar infarct within the region of the right caudate head. The cooper-white junction is well differenti ated. Scattered hypoattenuating areas are seen within the periventricular white matter. Cerebellum: Unremarkable. Mass effect: No evidence of midline shift. Intracranial vasculature: Atherosclerotic calcifications of the intracranial vessels. Soft tissues: Normal. Calvarium/osseous structures: No depressed skull fracture. Paranasal sinuses and mastoid air cells: Clear. Visualized orbits: Bilateral aphakia Cervical spine: Fracture: None. Osseous structures: Multilevel degenerative disc disease changes with endplate spurring and disc oste ophyte complex's. Partial mineralization right shoulder arthroplasty changes. Vertebral alignment: Straightening of the spine. Spinal canal/Neural Foramina: Disc osteophyte complexes at C3-C4 through C6-C7. With at least mild sp inal canal stenosis. Facet joint uncovertebral joint arthropathy scattered throughout the cervical sp ine with varying degrees of neural foraminal stenosis. Neck soft tissues: Prevertebral soft tissues are within normal limits. Subtle hypodense 1.2 cm left t hyroid lobe nodule. Other: The airway is patent. Chronic interstitial changes in lung apices. Bilateral carotid bulb calc ifications. IMPRESSION: 1. No acute intracranial process. 2. Remote lacunar injury along with nonspecific white matter changes likely secondary to chronic arthur roangiopathy. 3. No evidence of cervical spine fracture. 4. Moderate multilevel degenerative disc disease. [facility], , 02/25/2024 12:42 PM
--- NOTE | 2024-02-25 15:51 | P.CNPUL ---
History of Present Illness Consult date: 02/25/24 Reason for consult: lung mass History of present illness: I was asked to evaluate this patient regarding her abnormal CAT scan of the chest. The patient is known to me. She follows up with my partner in the office. She has history of chronic pulmonary fibrosis. She was also history of anal cancer and she was noted to have a right lower lobe subpleural opacity that showed some limited activity on the previous PET scan. There was concern for malignancy. I was approached the biopsy this abnormality. Nevertheless, the findings on the CAT scan were quite nonspecific and we decided to monitor and continue surveillance with another CAT scan of the chest and a PET/CT. Noted the patient underwent a follow-up CAT scan of the chest on 01/26/2024. That time, the patient was noted to have a moderate-sized right-sided pleural effusion. Chronic fibrotic changes bilaterally. The right lower lobe subpleural opacity was still present and there was note of right hilar and similar mediastinal lymphadenopathy. At that point, the patient was given a thoracentesis of the right lung. This was done during her hospital stay and the pleural fluid that was drained turned out to be an exudate with negative cytology. The procedure was done without any complications. A total of 1 L of dark yellowish fluid was aspirated and the fluid cytology was negative for malignancy. No subsequent pneumothorax. In any rate, the patient was supposed to have a PET/CT and this is scheduled to be done on 02/27/2024. Meanwhile, the patient gets hospitalized again with fall. She felt very weak and she landed on her knees bilaterally. She has undergone previous bilateral knee replacements. No reported fractures. No focal neurological deficits. She has carotid Dopplers that reported occlusion in the right ICA and moderate disease in the left ICA. Vascular surgery has been consulted regarding carotid artery stenosis. Along with pulmonary fibrosis, she has diabetes mellitus, hyperlipidemia, squamous cell anal cancer and anemia of chronic disease. She is oxygen dependent and currently she is on oxygen at 4 L nasal cannula. The white cell count is at 10.2 with a hemoglobin of 10.3 and a platelet count of 318. Sodium levels at 134, BUN is 11 with a creatinine of 0.6. No cough. No sputum production. No chest tightness. No wheezing. Repeat chest x-ray that was done during this current admission shows chronic fibrotic changes bilaterally without any evidence of fluid recurrence. Her previous echocardiogram done on 01/25/2024 showed a preserved LV function, mild to moderate mitral regurgitation and moderate mitral stenosis and moderate degree of pulmonary hypertension with tricuspid regurgitation. The CAT scan of the brain done on 02/25/2024 showed no acute intracranial process in the remote included injury with nonspecific white matter changes and chronic microangiopathy. Review of Systems Constitutional: Reports fatigue, Reports weakness Eyes: denies as per HPI, denies blurred vision, denies bulging eye, denies decreased vision, denies diplopia, denies discharge, denies dry eye, denies irritation, denies itching, denies pain, denies photophobia, denies loss of peripheral vision, denies loss of vision, denies tunnel vision/blind spots Ears: deny: decreased hearing, ear discharge, earache, tinnitus Ears, nose, mouth and throat: Reports as per HPI Breasts: absent: as per HPI, change in shape, gynecomastia, masses, nipple discharge, pain, skin changes, swelling Cardiovascular: Reports decreased exercise tolerance, Reports dyspnea on exertion Respiratory: Reports dyspnea Gastrointestinal: Reports as per HPI Genitourinary: Reports as per HPI Menstruation: Reports as per HPI, Reports cycle > 35 days Musculoskeletal: Reports frequent falls Musculoskeletal: absent: ankle pain, ankle stiffness, ankle swelling, as per HPI, elbow pain, elbow stiffness, elbow swelling, foot pain, foot stiffness, f oot swelling, hand pain, hand stiffness, hand swelling, hip pain, hip stiffness, hip swelling, knee pain, knee stiffness, knee swelling, shoulder pain, shoulder stiffness, shoulder swelling, wrist pain, wrist stiffness, wrist swelling Integumentary: Reports as per HPI Neurological: Reports as per HPI, Reports weakness Psychiatric: Reports as per HPI Endocrine: Reports as per HPI Hematologic/Lymphatic: Reports as per HPI Allergic/Immunologic: Reports as per HPI 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 ,States yeast infection in genital area and folds of abd., diet controlled diabetes., has stimulator left hip for back pain (not working)., PAD. Recent diagosis of lung cancer History of Any Multi-Drug Resistant Organisms: None Reported Past Surgical History: Appendectomy, Back Surgery, Bladder Surgery, Cholecystectomy, Hysterectomy, Joint Replacement Additional Past Surgical History / Comment(s): Bilateral knee replacements, right shoulder rotator cuff X2, bilateral iliac femoral stents, bladder suspension X2, right Mediport removed, left lung biopsy, lymph node biopsy, left groin biopsy(malignant). bilateral carpal tunnel, bilateral cataracts, right shoulder replacement. stimulator in hip (left) for back, bilateral iliac arterial stents., R femoral stent Past Anesthesia/Blood Transfusion Reactions: No Reported Reaction, Family History of Problems w/ Anesthesia Additional Past Anesthesia/Blood Transfusion Reaction / Comment(s): Claustrophobic., vomited and aspirated during colonoscopy. son had difficulty waking up after surgery Past Psychological History: Anxiety, Depression Smoking Status: Former smoker Past Alcohol Use History: None Reported Past Drug Use History: None Reported - Past Family History Sister(s) Family Medical History: Cancer Additional Family Medical History / Comment(s): Lung cancer. other sister heart failure Brother(s) Family Medical History: Cancer Additional Family Medical History / Comment(s): Lung cancer. Mother Family Medical History: Cancer, Fibromyalgia Additional Family Medical History / Comment(s): Drugs and alcohol - of what patient calls "septicemia" Father Family Medical History: Cancer, Coronary Artery Disease (CAD), Hyperlipidemia, Hypertension Additional Family Medical History / Comment(s): Skin cancer. Medications and Allergies Home Medications Medication Instructions Recorded Confirmed Type RX: Levothyroxine Sodium 25 mcg PO DAILY 08/15/16 02/23/24 History [Synthroid] RX: FLUoxetine HCL [PROzac] 40 mg PO DAILY 07/25/20 02/23/24 History RX: Gabapentin [Neurontin] 300 mg PO BID 08/03/22 02/23/24 History RX: Atorvastatin [Lipitor] 80 mg PO HS 04/04/23 02/23/24 History RX: Gabapentin 600 mg PO BID 04/04/23 02/23/24 History RX: carBAMazepine [carBAMazepine 100 mg PO BID 04/04/23 02/23/24 History ER] RX: levETIRAcetam [Keppra] 750 mg PO BID 07/19/23 02/23/24 History RX: Furosemide [Lasix] 40 mg PO BID@0900,1300 08/08/23 02/23/24 History RX: Ferrous Sulfate [Iron (65 MG 325 mg PO DAILY 09/10/23 02/23/24 History Elemental)] RX: traZODone HCL [Desyrel] 100 mg PO HS 09/10/23 02/23/24 History RX: ALPRAZolam [Xanax] 0.25 mg PO DAILY 01/23/24 02/23/24 History RX: Albuterol Inhaler [Ventolin 2 puff INHALATION RT-Q6H PRN 01/23/24 02/23/24 History Hfa Inhaler] RX: HYDROcodone/APAP 7.5-325MG 1 tab PO BID 01/23/24 02/23/24 History [[place] 7.5-325] RX: Aspirin 81 mg PO DAILY tab 01/31/24 02/23/24 Rx Clopidogrel [Plavix] 75 mg PO DAILY 02/23/24 02/23/24 History Allergies Allergy/AdvReac Type Severity Reaction Status Date / Time erythromycin base Allergy Rash/Hives Verified 02/23/24 14:23 Fish Containing Products Allergy Anaphylaxis Verified 02/23/24 14:23 Penicillins Allergy Anaphylaxis Verified 02/23/24 14:23 shellfish derived [Shellfish] Allergy Anaphylaxis Verified 02/23/24 14:23 levofloxacin [From Levaquin] AdvReac Rash/Hives, Verified 02/23/24 14:23 swelling Physical Exam Vitals: Vital Signs Temp Pulse Pulse Resp BP BP Pulse Ox 02/25/24 07:54 97.3 F L 66 17 105/51 97 02/25/24 02:00 97.8 F 65 15 98/62 97 02/24/24 21:00 98 F 74 19 144/63 97 02/24/24 16:47 98.5 F 02/24/24 16:16 74 18 111/45 95 02/24/24 12:56 98.4 F 76 18 121/64 96 Intake and Output 11/07/24 11/08/24 11/08/24 22:59 06:59 14:59 Other: Voiding Method External Catheter External Catheter GENERAL EXAM: Alert, 74-year-old female, on 3 L nasal cannula, resting in bed, in no apparent distress. HEAD: Normocephalic. EYES: Normal reaction of pupils, equal size. NOSE: Clear with pink turbinates. THROAT: No erythema or exudates. NECK: No masses, no JVD. CHEST: No chest wall deformity. LUNGS: Equal air entry with scattered rhonchi, crackles in the right lung base. CVS: S1 and S2 normal with no audible murmur, regular rhythm. ABDOMEN: No hepatosplenomegaly, normal bowel sounds, no guarding or rigidity. SPINE: No scoliosis or deformity SKIN: No rashes CENTRAL NERVOUS SYSTEM: No focal deficits, tone is normal in all 4 extremities. EXTREMITIES: Transmetatarsal amputation on the right foot. There is no peripheral edema. No clubbing, no cyanosis. Peripheral pulses are intact. Results - Laboratory Findings CBC and BMP: 02/25/24 11:08 02/25/24 11:08 PT/INR, D-dimer PT 11.1 sec (10.0-12.5) 02/23/24 10:51 INR 1.0 (<1.2) 02/23/24 10:51 Abnormal lab findings: Abnormal Labs 02/23/24 02/23/24 02/23/24 10:51 10:51 10:51 RBC 3.23 L Hgb 9.2 L Hct 29.0 L MCHC RDW 16.5 H Sodium 136 L Potassium 3.3 L Glucose 141 H Calcium 7.8 L Iron TIBC % Saturation Transferrin AST 42 H ALT 47 H Total Protein 5.2 L Albumin 2.9 L Folate Urine Appearance Cloudy H Urine Protein 1+ H Urine Blood Small H Ur Leukocyte Esterase Large H Urine RBC 20 H Urine WBC >182 H Amorphous Sediment Rare H Urine Bacteria Rare H Urine Mucus Rare H Urine Yeast (Budding) Many H 02/23/24 02/23/24 02/25/24 10:51 10:51 11:08 RBC 3.72 L Hgb 10.3 L Hct MCHC 29.7 L RDW 16.1 H Sodium Potassium Glucose Calcium Iron 27 L TIBC 227 L % Saturation 11.89 L Transferrin 162.0 L AST ALT Total Protein Albumin Folate 4.20 L Urine Appearance Urine Protein Urine Blood Ur Leukocyte Esterase Urine RBC Urine WBC Amorphous Sediment Urine Bacteria Urine Mucus Urine Yeast (Budding) 02/25/24 11:08 RBC Hgb Hct MCHC RDW Sodium 134 L Potassium Glucose 115 H Calcium Iron TIBC % Saturation Transferrin AST 43 H ALT 41 H Total Protein 5.9 L Albumin 3.2 L Folate Urine Appearance Urine Protein Urine Blood Ur Leukocyte Esterase Urine RBC Urine WBC Amorphous Sediment Urine Bacteria Urine Mucus Urine Yeast (Budding) Assessment and Plan Plan: Chronic pulmonary fibrosis with hypoxic respiratory failure, currently on 3 L of oxygen by nasal cannula. 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 Right lower lobe posterior subpleural pulmonary opacity with limited uptake on a previous PET/CT that was done in August 2023. Awaiting a follow-up PET/CT on . Noted the patient also has some nonspecific right hilar than mediastinal lymphadenopathy that is being monitored. The patient has a 3 cm masslike consolidative density in the right lower lobe being followed in the outpatient setting. A PET scan from August 19, 2023 revealed right lower lobe pulmonary nodule with increased metabolic activity compatible with malignancy. There is at least 1 right pulmonary hilum lymph node suspicious for metastatic disease. Extensive interstitial opacities along suspicious for ILD. CT scan of the chest was done yesterday 10/08/2023 that revealed similar pleural-based mass of the right lower lobe which is essentially unchanged in overall size and appe arance. Possible minimal early cavitation. Pulmonary fibrosis at least moderate in degree. Plan is for follow-up PET scan was to be 02/27/2024 Chronic hypoxic respiratory failure, currently on 3 L History of anal cancer. By chemotherapy and radiation therapy Right-sided pleural effusion, exudate, postthoracentesis without any recurrence. A total of 1 L of fluid was aspirated Valvular heart disease with mild to moderate mitral stenosis moderate degree of pulmonary hypertension based on most recent echocardiogram. Patient has preserved LV function History of CVA/TIA x 3 with evidence of carotid artery disease with left-sided stenosis in the order of 50 to 69% Obstructive sleep apnea, no CPAP therapy for now Peripheral vascular disease, and the patient has undergone previous right fem- tib bypass and the patient has previous right toe amputations Nephrolithiasis Diabetes mellitus type 2 Hyperlipidemia Hypothyroidism Former smoker Generalized weakness and frequent falls without any fracture Plan Pleural fluid cytology is negative for malignancy No plans for biopsy Awaiting a PET/CT to be done on 02/27/2024 *EBUS with mediastinal lymph node sampling will be considered if there is any progression in the mediastinal lymph nodes Vascular surgery regarding carotid artery stenosis Will follow
--- NOTE | 2024-02-25 17:44 | P.CNNES ---
History of Present Illness Consult date: 02/25/24 Requesting physician: Lisseth Isaac Reason for Consult: weakness and multiple falls History of Present Illness: This is a 74-year-old woman who presents because of generalized weakness and falls. She stated for the last 6 months she has been having intermittent generalized weakness, recurrent urinary tract infection, diarrhea with falls. She does not lose consciousness with the falls. She just feels weak throughout. She denies any focal weakness. Denies any visual disturbance, difficulty with the speech or difficulty swallowing. She does have underlying history of diabetes mellitus and she has neuropathy. She has chronic lower back pain. She stated that she has tremors on the left side and she is on Keppra and Tegretol and she was had extensive workup at [facility] neurology team in the past and and EEG which were negative but placed on Keppra and Tegretol and though symptoms has been improving but it seems recently it is getting worse. She follows up with Dr. Hawkins for her neurological issues and did address left sided tremor. She has a pain stimulator and she stated that it is defective. She does not follow-up with the [facility] neurology team since that neurologist want to research. Some of the workup during this hospital visit consisted of: Vitamin B12 is 211 which is severely low normal (normal is 200-944) Folate is 4.20 AST is 42 ALT is 47 U/A seems possible suggestive of underlying acute urinary tract infection. I reviewed the rest of the lab work Review of Systems The positive and negative as per HPI. 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 ,States yeast infection in genital area and folds of abd., diet controlled diabetes., has stimulator left hip for back pain (not working)., PAD. Recent diagosis of lung cancer History of Any Multi-Drug Resistant Organisms: None Reported Past Surgical History: Appendectomy, Back Surgery, Bladder Surgery, Cholecystectomy, Hysterectomy, Joint Replacement Additional Past Surgical History / Comment(s): Bilateral knee replacements, right shoulder rotator cuff X2, bilateral iliac femoral stents, bladder suspension X2, right Mediport removed, left lung biopsy, lymph node biopsy, left groin biopsy(malignant). bilateral carpal tunnel, bilateral cataracts, right shoulder replacement. stimulator in hip (left) for back, bilateral iliac arterial stents., R femoral stent Past Anesthesia/Blood Transfusion Reactions: No Reported Reaction, Family History of Problems w/ Anesthesia Additional Past Anesthesia/Blood Transfusion Reaction / Comment(s): Claustrophobic., vomited and aspirated during colonoscopy. son had difficulty waking up after surgery Past Psychological History: Anxiety, Depression Smoking Status: Former smoker Past Alcohol Use History: None Reported Past Drug Use History: None Reported - Past Family History Sister(s) Family Medical History: Cancer Additional Family Medical History / Comment(s): Lung cancer. other sister heart failure Brother(s) Family Medical History: Cancer Additional Family Medical History / Comment(s): Lung cancer. Mother Family Medical History: Cancer, Fibromyalgia Additional Family Medical History / Comment(s): Drugs and alcohol - of what patient calls "septicemia" Father Family Medical History: Cancer, Coronary Artery Disease (CAD), Hyperlipidemia, Hypertension Additional Family Medical History / Comment(s): Skin cancer. Medications and Allergies Home Medications Medication Instructions Recorded Confirmed Type Levothyroxine Sodium [Synthroid] 25 mcg PO DAILY 08/15/16 02/23/24 History FLUoxetine HCL [PROzac] 40 mg PO DAILY 07/25/20 02/23/24 History Gabapentin [Neurontin] 300 mg PO BID 08/03/22 02/23/24 History Atorvastatin [Lipitor] 80 mg PO HS 04/04/23 02/23/24 History Gabapentin 600 mg PO BID 04/04/23 02/23/24 History carBAMazepine [carBAMazepine ER] 100 mg PO BID 04/04/23 02/23/24 History levETIRAcetam [Keppra] 750 mg PO BID 07/19/23 02/23/24 History Furosemide [Lasix] 40 mg PO BID@0900,1300 08/08/23 02/23/24 History Ferrous Sulfate [Iron (65 MG 325 mg PO DAILY 09/10/23 02/23/24 History Elemental)] traZODone HCL [Desyrel] 100 mg PO HS 09/10/23 02/23/24 History ALPRAZolam [Xanax] 0.25 mg PO DAILY 01/23/24 02/23/24 History Albuterol Inhaler [Ventolin Hfa 2 puff INHALATION RT-Q6H PRN 01/23/24 02/23/24 History Inhaler] HYDROcodone/APAP 7.5-325MG [[place] 1 tab PO BID 01/23/24 02/23/24 History 7.5-325] Aspirin 81 mg PO DAILY tab 01/31/24 02/23/24 Rx Clopidogrel [Plavix] 75 mg PO DAILY 02/23/24 02/23/24 History Allergies Allergy/AdvReac Type Severity Reaction Status Date / Time erythromycin base Allergy Rash/Hives Verified 02/23/24 14:23 Fish Containing Products Allergy Anaphylaxis Verified 02/23/24 14:23 Penicillins Allergy Anaphylaxis Verified 02/23/24 14:23 shellfish derived [Shellfish] Allergy Anaphylaxis Verified 02/23/24 14:23 levofloxacin [From Levaquin] AdvReac Rash/Hives, Verified 02/23/24 14:23 swelling Physical Examination - Vital Signs Vital Signs: Vital Signs Temp Pulse Resp BP Pulse Ox 02/25/24 14:00 97.6 F 77 18 98/46 98 02/25/24 07:54 97.3 F L 66 17 105/51 97 02/25/24 02:00 97.8 F 65 15 98/62 97 02/24/24 21:00 98 F 74 19 144/63 97 Intake and Output 02/25/24 02/25/24 02/25/24 06:59 14:59 22:59 Other: Voiding Method External Catheter General: Lying in bed and is not in acute distress. HENT: Supple neck. Neuro: Patient is awake alert oriented to self place and time. Is following simple commands. No aphasia. The pupils are round equal reactive to light. The pupils are round 4 mm bilaterally. Visual valentin are full to confrontation. Extraocular moods intact no nystagmus. Normal facial sensation to touch. No facial weakness. No dysarthria. Tongue is midline moves [id number] without any difficulty. Motor the strength is 5/5 right uppers. In the lowers was deferred because of pain but has antigravity and appears symmetrical. 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 Plantars mute on the left Results - Laboratory Findings CBC and BMP: 02/25/24 11:08 02/25/24 11:08 Abnormal Lab Findings: Abnormal Labs 02/23/24 02/23/24 02/23/24 10:51 10:51 10:51 RBC 3.23 L Hgb 9.2 L Hct 29.0 L MCHC RDW 16.5 H Sodium 136 L Potassium 3.3 L Glucose 141 H Calcium 7.8 L Iron TIBC % Saturation Transferrin AST 42 H ALT 47 H Total Protein 5.2 L Albumin 2.9 L Folate Urine Appearance Cloudy H Urine Protein 1+ H Urine Blood Small H Ur Leukocyte Esterase Large H Urine RBC 20 H Urine WBC >182 H Amorphous Sediment Rare H Urine Bacteria Rare H Urine Mucus Rare H Urine Yeast (Budding) Many H Stool Occult Blood 02/23/24 02/23/24 02/24/24 10:51 10:51 09:00 RBC Hgb Hct MCHC RDW Sodium Potassium Glucose Calcium Iron 27 L TIBC 227 L % Saturation 11.89 L Transferrin 162.0 L AST ALT Total Protein Albumin Folate 4.20 L Urine Appearance Urine Protein Urine Blood Ur Leukocyte Esterase Urine RBC Urine WBC Amorphous Sediment Urine Bacteria Urine Mucus Urine Yeast (Budding) Stool Occult Blood Positive H 02/25/24 02/25/24 11:08 11:08 RBC 3.72 L Hgb 10.3 L Hct MCHC 29.7 L RDW 16.1 H Sodium 134 L Potassium Glucose 115 H Calcium Iron TIBC % Saturation Transferrin AST 43 H ALT 41 H Total Protein 5.9 L Albumin 3.2 L Folate Urine Appearance Urine Protein Urine Blood Ur Leukocyte Esterase Urine RBC Urine WBC Amorphous Sediment Urine Bacteria Urine Mucus Urine Yeast (Budding) Stool Occult Blood Assessment and Plan Assessment: This is a 84-year-old woman with history of intermittent recurrent generalized weakness for the last 6 months with fall, recurrent UTI, diarrhea. She also has diabetes mellitus, neuropathy and has tremor in the left side and had extensive neurological workup in the past. Recurrent falls without LOC with generalized weakness seems to be due to multifactorial due to her recurrent urinary tract infection, diarrhea. Because it has folate deficiency with severely low normal vitamin B12 as probable peripheral neuropathy. Severely low normal vitamin B12 of 211 Folate deficiency Probable acute urinary tract infection Recurrent Urinary tract infection Tremor over the left upper and lower extremity and had extensive workup at [facility] and follows up with a neurologist locally and she is on Keppra and Tegretol but stated that her EEG and workup in the past was negative and will dose medication it was improving until in the past couple months is worsening. Diabetes mellitus Neuropathy Plan: Ordered CT of the head and cervical spine. Unable to obtain MRI since she has a pain stimulator but is defective so we will assess if she can pursue with the MRI of the brain I ordered hemoglobin A1c and orthostatic vitals Ordered routine EEG which will be completed this coming up Wednesday Regarding her folate deficient I started the patient on folic acid 1 mg daily. Regarding her severely low normal vitamin B12 I started the patient on vitamin B12 1000 mcg IM for 3 days and after that recommend to be on it p.o. daily. Patient is on aspirin 81 mg, Plavix 75 mg. She is on Lipitor 80 mg nightly. Patient is on home medication of Tegretol 100 mg twice daily as well as Keppra 750 mg twice daily that was started by neurology team over [facility] for tremor over the left side and she stated ther e is improvement but currently there is worsening will assess what the EEG shows. Will defer the rest of the medical management to primary and other specialist Recommend the patient to follow-up with neurologist as outpatient within 2-3 weeks (she sees Dr. Hawkins). Thank you for the consultation. Time with Patient: Greater than 30
[2024-02-25] MEDS: FOLIC ACID 1 MG TAB PO SCH (21:21)
[2024-02-25] MEDS: CYANOCOBALAMIN 1,000 MCG/ML 1 ML VIAL IM SCH (21:23)
--- NOTE | 2024-02-26 10:42 | P.PN ---
Subjective Progress Note Date: 02/26/24 Alexia Rubin, is a 74-year-old female who presented to [facility] emergency room with a chief complaint of generalized weakness and multiple falls, patient was recently hospitalized, and transferred to [facility] for rehabilitation, she was recently discharged home, however she continued to have severe weakness and multiple falls, she was brought back by her family to the emergency room for further evaluation and treatment and possible readmission to the long-term. She was evaluated in the emergency room vital examination on presentation revealed a temperature of 97.8 pulse 70 respiration 18 blood pressure 94/69 pulse ox 99% on room air Laboratory data revealed a white blood count of 9.4 hemoglobin 9.2 platelet count 347 sodium 136 potassium 3.3 chloride 103 CO2 26 BUN 10 creatinine 0.62 lactic acid 1.5, urine analysis revealed evidence of urinary tract infection Testing in the emergency room revealed EKG done in the emergency room revealed sinus rhythm with occasional supraventricular premature complexes, x-ray of the left knee done in the emergency room revealed moderate left joint effusion, chest x-ray was done in the emergency room and revealed evidence for pulmonary edema. Patient was admitted to medical floor for further evaluation and treatment On 02/25/2024 patient's alert and oriented x 3. Repeat labs have been ordered. Carotid Doppler showing some stenosis will consult Dr. Espinal for vascular surgery. GI recommending outpatient follow-up with Dr. hall still awaiting neurology input. Current vital signs temp 97.8, heart rate 65, respiratory rate 15, blood pressure 105/51 with a pulse ox of 97% on 4 L On 02/26/2024 patient was seen and examined on the medical floor, she is alert and oriented x 3 in no apparent distress, she is complaining of shortness of breath with any activity otherwise she denies any complaints there is no fever or chills no headache or dizziness no chest pain she has occasional cough no nausea or vomiting no abdominal pain no diarrhea and no urinary symptoms, she remains on oxygen 4 L via nasal cannula, temperature is 98.0 pulse 69 respiration 19 blood pressure 126/50 pulse ox 93% on 4 L nasal cannula Objective - Vital Signs Vital signs: Vital Signs Temp 98.0 F 02/26/24 07:26 Pulse 69 02/26/24 07:26 Resp 19 02/26/24 07:26 BP 126/50 02/26/24 07:26 Pulse Ox 100 02/26/24 07:26 FiO2 Intake & Output 02/25/24 02/26/24 02/26/24 18:59 06:59 18:59 Output Total 1200 Balance -1200 Output: Urine 1200 Other: Voiding Method External Catheter External Catheter # Voids 1 # Bowel Movements 1 - Exam In general patient is alert and oriented x 3 in no distress HEENT head normocephalic and atraumatic Neck is supple no JVD no goiter no lymphadenopathy no carotid bruit Chest examination is clear to auscultation no crackles no wheezing Cardiac exam reveals regular heart sounds S1 and S2 no gallops no murmurs Abdomen is soft nontender no organomegaly with normal bowel sounds Extremity exam reveals no edema no cyanosis or clubbing Neurological examination reveals no gross focal deficits - Labs CBC & Chem 7: 02/25/24 11:08 02/25/24 11:08 Labs: Abnormal Lab Results - Last 24 Hours (Table) 02/24/24 02/25/24 02/25/24 Range/Units 09:00 11:08 11:08 RBC 3.72 L (3.80-5.40) m/uL Hgb 10.3 L (11.4-16.0) gm/dL MCHC 29.7 L (31.0-37.0) g/dL RDW 16.1 H (11.5-15.5) % Sodium 134 L (137-145) mmol/L Glucose 115 H (74-99) mg/dL AST 43 H (14-36) U/L ALT 41 H (4-34) U/L Total Protein 5.9 L (6.3-8.2) g/dL Albumin 3.2 L (3.5-5.0) g/dL Stool Occult Blood Positive H (Negative) Assessment and Plan Plan: Generalized weakness with multiple falls Anemia, will check stools for Hemoccult, check iron vitamin B12 and folate level , consult gastroenterology for GI workup Urinary tract infection Underlying history of hypertension Underlying history of hyperlipidemia Underlying history of hypothyroidism Underlying history of seizure activity maintained on Keppra Underlying history of depression with anxiety disorder Chest x-ray revealing pulmonary edema, will check BNP and echocardiogram At this time patient is admitted to medical floor Home medications reviewed and reordered Neurology consultation requested Consultation for gastroenterology and neurology initiated Will check echocardiogram For DVT prophylaxis subcu Lovenox Will follow closely
[2024-02-26 11:23] LABS: Basophils # (A) 0.06 X 10*3/uL (0.00-0.10); Basophils % (A) 0.7 %; Eosinophils # (A) 0.33 X 10*3/uL (0.04-0.35); Eosinophils % (A) 3.7 %; HCT 31.9 % (37.2-46.3); HGB 9.6 g/dL (12.0-15.0); Lymphocytes # (A) 2.69 X 10*3/uL (0.90-5.00); Lymphocytes % (A) 30.2 %; MCH 27.6 pg (27.0-32.0); MCHC 30.1 g/dL (32.0-37.0); MCV 91.7 FL (80.0-97.0); Mean Platelet Volume 10.6 FL (9.5-12.2); Monocytes # (A) 0.74 X 10*3/uL (0.20-1.00); Monocytes % (A) 8.3 %; NRBC Per 100 WBC 0 X 10*3/uL (0.00-0.01); Neutrophils # (A) 5.06 X 10*3/uL (1.80-7.70); Neutrophils % (A) 56.7 %; Platelet Count 402 X 10*3/uL (140-440); RBC 3.48 X 10*6/uL (4.10-5.20); RDW 16.8 % (11.5-14.5); WBC 8.92 X 10*3/uL (4.50-10.00)
[2024-02-26 11:25] LABS: ALT 38 U/L (8-44); AST 40 U/L (13-35); Albumin 3.2 g/dL (3.8-4.9); Albumin/Globulin Ratio 1.45 Ratio (1.60-3.17); Alkaline Phosphatase 83 U/L (41-126); BUN/Creat Ratio 12.75 Ratio (12.00-20.00); Blood Urea Nitrogen 10.2 mg/dL (9.0-27.0); Calcium 8.6 mg/dL (8.7-10.3); Carbon Dioxide 23.2 mmol/L (21.6-31.8); Chloride 102 mmol/L (96-109); Globulin 2.2 g/dL (1.6-3.3); Glucose 107 mg/dL (70-110); Potassium 3.8 mmol/L (3.5-5.5); Sodium 139 mmol/L (135-145); Total Bilirubin 0.3 mg/dL (0.3-1.2); Total Protein 5.4 g/dL (6.2-8.2)
--- NOTE | 2024-02-26 15:17 | P.PN ---
Subjective Progress Note Date: 02/26/24 I am following up with the patient and she denies of any tremor of any extremities, focal weakness new numbness or visual disturbance. Objective - Vital Signs Vital signs: Vital Signs Temp 97.7 F 02/26/24 13:35 Pulse 67 02/26/24 13:35 Resp 20 02/26/24 13:54 BP 89/54 02/26/24 13:35 Pulse Ox 99 02/26/24 13:35 FiO2 Intake & Output 02/25/24 02/26/24 02/26/24 18:59 06:59 18:59 Intake Total 300 Output Total 1200 Balance -1200 300 Intake: Oral 300 Output: Urine 1200 Other: Voiding Method External Catheter External Catheter External Catheter # Voids 1 2 # Bowel Movements 1 - Exam General: Sitting in a recliner chair and is not in acute distress. HENT: Supple neck. Neuro: Patient is awake alert oriented to self place and time. Is following simple commands. No aphasia. The pupils are round equal reactive to light. The pupils are round 4 mm bilaterally. Visual valentin are full to confrontation. Extraocular moods intact no nystagmus. Normal facial sensation to touch. No facial weakness. No dysarthria. Tongue is midline moves [id number] without any difficulty. Motor the strength is 5/5 right uppers. In the lowers was deferred because of pain but has antigravity and appears symmetrical. 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 Plantars mute on the left Some of the workup during this hospital visit consisted of: Vitamin B12 is 211 which is severely low normal (normal is 200-944) Folate is 4.20 AST is 42 ALT is 47 HbA1c: 6.8 U/A seems possible suggestive of underlying acute urinary tract infection. CT of the head and cervical spine is reported as no acute intracranial process. Remote lacunar injury along with nonspecific white matter changes likely se condary due to chronic microangiopathy. No evidence cervical spine fracture. Moderate multilevel degenerative disc disease. Reviewed CT of the head and patient has an old stroke and it seems near the caudate and it seems chronic microvascular disease on the right. - Labs CBC & Chem 7: 02/26/24 04:22 02/26/24 04:22 Labs: Abnormal Lab Results - Last 24 Hours (Table) 02/26/24 02/26/24 02/26/24 Range/Units 04:22 04:22 04:22 RBC 3.48 L (4.10-5.20) X 10*6/uL Hgb 9.6 L (12.0-15.0) g/dL Hct 31.9 L (37.2-46.3) % MCHC 30.1 L (32.0-37.0) g/dL RDW 16.8 H (11.5-14.5) % Anion Gap 13.80 H (4.00-12.00) mmol/L Hemoglobin A1c 6.8 H (<=6.0) % Calcium 8.6 L (8.7-10.3) mg/dL AST 40 H (13-35) U/L Total Protein 5.4 L (6.2-8.2) g/dL Albumin 3.2 L (3.8-4.9) g/dL Albumin/Globulin Ratio 1.45 L (1.60-3.17) Ratio Assessment and Plan Assessment: This is a 84-year-old woman with history of intermittent recurrent generalized weakness for the last 6 months with fall, recurrent UTI, diarrhea. She also has diabetes mellitus, neuropathy and has tremor in the left side and had extensive neurological workup in the past. Recurrent falls without LOC with generalized weakness seems to be due to multifactorial due to her recurrent urinary tract infection, diarrhea. Because has folate deficiency with severely low normal vitamin B12 as probable peripheral neuropathy which can exacerbate her symptoms. CT head is negative for acute process but has old lacunar stroke. Severely low normal vitamin B12 of 211 Folate deficiency Probable acute urinary tract infection Recurrent Urinary tract infection Tremor over the left upper and lower extremity and had extensive workup at [facility] and follows up with a neurologist locally and she is on Keppra and Tegretol but stated that her EEG and workup in the past was negative and will dose medication it was improving until in the past couple months is worsening. Diabetes mellitus Neuropathy Plan: Unable to obtain MRI since she has a pain stimulator but is defective so we will assess if she can pursue with the MRI of the brain Pending orthostatic vitals Pending routine EEG which will be completed this coming up Wednesday Regarding her folate deficient I started the patient on folic acid 1 mg daily. Regarding her severely low normal vitamin B12 I started the patient on vitamin B12 1000 mcg IM for 3 days and after that recommend to be on it p.o. daily. Patient is on aspirin 81 mg, Plavix 75 mg. She is on Lipitor 80 mg nightly. Patient is on home medication of Tegretol 100 mg twice daily as well as Keppra 750 mg twice daily that was started by neurology team over [facility] for tremor over the left side and she stated there is improvement but currently there is worsening will assess what the EEG shows. Will defer the rest of the medical management to primary and other specialist Recommend the patient to follow-up with neurologist as outpatient within 2-3 weeks (she sees Dr. Hawkins). Dr. Atkinson will resume neurology service on 02/28/2024 A.M. Time with Patient: Less than 30
--- NOTE | 2024-02-26 15:23 | P.PN ---
Subjective Progress Note Date: 02/26/24 I was asked to evaluate this patient regarding her abnormal CAT scan of the chest. The patient is known to me. She follows up with my partner in the office. She has history of chronic pulmonary fibrosis. She was also history of anal cancer and she was noted to have a right lower lobe subpleural opacity that showed some limited activity on the previous PET scan. There was concern for malignancy. I was approached the biopsy this abnormality. Nevertheless, the findings on the CAT scan were quite nonspecific and we decided to monitor and continue surveillance with another CAT scan of the chest and a PET/CT. Noted the patient underwent a follow-up CAT scan of the chest on 01/26/2024. That maggie e, the patient was noted to have a moderate-sized right-sided pleural effusion. Chronic fibrotic changes bilaterally. The right lower lobe subpleural opacity was still present and there was note of right hilar and similar mediastinal lymphadenopathy. At that point, the patient was given a thoracentesis of the right lung. This was done during her hospital stay and the pleural fluid that was drained turned out to be an exudate with negative cytology. The procedure was done without any complications. A total of 1 L of dark yellowish fluid was aspirated and the fluid cytology was negative for malignancy. No subsequent pneumothorax. In any rate, the patient was supposed to have a PET/CT and this is scheduled to be done on 02/27/2024. Meanwhile, the patient gets hospitalized again with fall. She felt very weak and she landed on her knees bilaterally. She has undergone previous bilateral knee replacements. No reported fractures. No focal neurological deficits. She has carotid Dopplers that reported occlusion in the right ICA and moderate disease in the left ICA. Vascular surg hansel has been consulted regarding carotid artery stenosis. Along with pulmonary fibrosis, she has diabetes mellitus, hyperlipidemia, squamous cell anal cancer and anemia of chronic disease. She is oxygen dependent and currently she is on oxygen at 4 L nasal cannula. The white cell count is at 10.2 with a hemoglobin of 10.3 and a platelet count of 318. Sodium levels at 134, BUN is 11 with a creatinine of 0.6. No cough. No sputum production. No chest tightness. No wheezing. Repeat chest x-ray that was done during this current admission shows chronic fibrotic changes bilaterally without any evidence of fluid recurrence. Her previous echocardiogram done on 01/25/2024 showed a preserved LV function, mild to moderate mitral regurgitation and moderate mitral stenosis and moderate degree of pulmonary hypertension with tricuspid regurgitation. The CAT scan of the brain done on 02/25/2024 showed no acute intracranial process in the remote included injury with nonspecific white matter changes and chronic microangiopathy. On 02/26/2024, the patient is being seen for a follow-up. No new complaints. The patient was seen by neurology. Unable to do MRI of the brain as the patient has a pain stimulator. EEG was ordered. Essentially The Same Medications. White Cell Count Is at 8.9, Hemoglobin 9.6, Platelet Count of 402. Electrolytes Are All within Normal Limits. Objective - Vital Signs Vital signs: Vital Signs Temp 98.0 F 02/26/24 07:26 Pulse 69 02/26/24 07:26 Resp 19 02/26/24 07:26 BP 126/50 02/26/24 07:26 Pulse Ox 100 02/26/24 07:26 FiO2 Intake & Output 02/25/24 02/26/24 02/26/24 18:59 06:59 18:59 Output Total 1200 Balance -1200 Output: Urine 1200 Other: Voiding Method External Catheter External Catheter # Voids 1 2 # Bowel Movements 1 - Exam GENERAL EXAM: Alert, 74-year-old female, on 3 L nasal cannula, resting in bed, in no apparent distress. HEAD: Normocephalic. EYES: Normal reaction of pupils, equal size. NOSE: Clear with pink turbinates. THROAT: No erythema or exudates. NECK: No masses, no JVD. CHEST: No chest wall deformity. LUNGS: Equal air entry with scattered rhonchi, crackles in the right lung base. CVS: S1 and S2 normal with no audible murmur, regular rhythm. ABDOMEN: No hepatosplenomegaly, normal bowel sounds, no guarding or rigidity. SPINE: No scoliosis or deformity SKIN: No rashes CENTRAL NERVOUS SYSTEM: No focal deficits, tone is normal in all 4 extremities. EXTREMITIES: Transmetatarsal amputation on the right foot. There is no peripheral edema. No clubbing, no cyanosis. Peripheral pulses are intact. - Labs CBC & Chem 7: 02/26/24 04:22 02/26/24 04:22 Labs: Abnormal Lab Results - Last 24 Hours (Table) 02/24/24 02/26/24 02/26/24 Range/Units 09:00 04:22 04:22 RBC 3.48 L (4.10-5.20) X 10*6/uL Hgb 9.6 L (12.0-15.0) g/dL Hct 31.9 L (37.2-46.3) % MCHC 30.1 L (32.0-37.0) g/dL RDW 16.8 H (11.5-14.5) % Anion Gap (4.00-12.00) mmol/L Hemoglobin A1c 6.8 H (<=6.0) % Calcium (8.7-10.3) mg/dL AST (13-35) U/L Total Protein (6.2-8.2) g/dL Albumin (3.8-4.9) g/dL Albumin/Globulin Ratio (1.60-3.17) Ratio Stool Occult Blood Positive H (Negative) 02/26/24 Range/Units 04:22 RBC (4.10-5.20) X 10*6/uL Hgb (12.0-15.0) g/dL Hct (37.2-46.3) % MCHC (32.0-37.0) g/dL RDW (11.5-14.5) % Anion Gap 13.80 H (4.00-12.00) mmol/L Hemoglobin A1c (<=6.0) % Calcium 8.6 L (8.7-10.3) mg/dL AST 40 H (13-35) U/L Total Protein 5.4 L (6.2-8.2) g/dL Albumin 3.2 L (3.8-4.9) g/dL Albumin/Globulin Ratio 1.45 L (1.60-3.17) Ratio Stool Occult Blood (Negative) Assessment and Plan Plan: Chronic pulmonary fibrosis with hypoxic respiratory failure, currently on 3 L of oxygen by nasal cannula. 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 Right lower lobe posterior subpleural pulmonary opacity with limited uptake on a previous PET/CT that was done in August 2023. Awaiting a follow-up PET/CT on 02/27/2024. Noted the patient also has some nonspecific right hilar than mediastinal lymphadenopathy that is being monitored. The patient has a 3 cm masslike consolidative density in the right lower lobe being followed in the outpatient setting. A PET scan from August 19, 2023 revealed right lower lobe pulmonary nodule with increased metabolic activity compatible with malignancy. There is at least 1 right pulmonary hilum lymph node suspicious for metastatic disease. Extensive interstitial opacities along suspicious for ILD. CT scan of the chest was done yesterday 10/08/2023 that revealed similar pleural-based mass of the right lower lobe which is essentially unchanged in overall size and appearance. Possible minimal early cavitation. Pulmonary fibrosis at least moderate in degree. Plan is for follow-up PET scan was to be 02/27/2024 Chronic hypoxic respiratory failure, currently on 3 L History of anal cancer. By chemotherapy and radiation therapy Right-sided pleural effusion, exudate, postthoracentesis without any recurrence. A total of 1 L of fluid was aspirated Valvular heart disease with mild to moderate mitral stenosis moderate degree of pulmonary hypertension based on most recent echocardiogram. Patient has preserved LV function History of CVA/TIA x 3 with evidence of carotid artery disease with left-sided stenosis in the order of 50 to 69% Obstructive sleep apnea, no CPAP therapy for now Peripheral vascular disease, and the patient has undergone previous right fem- tib bypass and the patient has previous right toe amputations Nephrolithiasis Diabetes mellitus type 2 Hyperlipidemia Hypothyroidism Former smoker Generalized weakness and frequent falls without any fracture Plan The patient's weakness being further investigated. The patient was seen by neurology In regards to her pulmonary status, the patient's breathing is stable. Pleural fluid cytology is negative for malignancy from recent thoracentesis No plans for biopsy Awaiting a PET/CT to be done on 02/27/2024 *EBUS with mediastinal lymph node sampling will be considered if there is any progression in the mediastinal lymph nodes Vascular surgery regarding carotid artery stenosis Will follow
--- NOTE | 2024-02-27 10:03 | P.PN ---
Subjective Progress Note Date: 02/27/24 Alexia Rubin, is a 74-year-old female who presented to [facility] emergency room with a chief complaint of generalized weakness and multiple falls, patient was recently hospitalized, and transferred to [facility] for rehabilitation, she was recently discharged home, however she continued to have severe weakness and multiple falls, she was brought back by her family to the emergency room for further evaluation and treatment and possible readmission to the custodial. She was evaluated in the emergency room vital examination on presentation revealed a temperature of 97.8 pulse 70 respiration 18 blood pressure 94/69 pulse ox 99% on room air Laboratory data revealed a white blood count of 9.4 hemoglobin 9.2 platelet count 347 sodium 136 potassium 3.3 chloride 103 CO2 26 BUN 10 creatinine 0.62 lactic acid 1.5, urine analysis revealed evidence of urinary tract infection Testing in the emergency room revealed EKG done in the emergency room revealed sinus rhythm with occasional supraventricular premature complexes, x-ray of the left knee done in the emergency room revealed moderate left joint effusion, chest x-ray was done in the emergency room and revealed evidence for pulmonary edema. Patient was admitted to medical floor for further evaluation and treatment On 02/25/2024 patient's alert and oriented x 3. Repeat labs have been ordered. Carotid Doppler showing some stenosis will consult Dr. Espinal for vascular surgery. GI recommending outpatient follow-up with Dr. hall still awaiting neurology input. Current vital signs temp 97.8, heart rate 65, respiratory rate 15, blood pressure 105/51 with a pulse ox of 97% on 4 L On 02/26/2024 patient was seen and examined on the medical floor, she is alert and oriented x 3 in no apparent distress, she is complaining of shortness of breath with any activity otherwise she denies any complaints there is no fever or chills no headache or dizziness no chest pain she has occasional cough no nausea or vomiting no abdominal pain no diarrhea and no urinary symptoms, she remains on oxygen 4 L via nasal cannula, temperature is 98.0 pulse 69 respiration 19 blood pressure 126/50 pulse ox 93% on 4 L nasal cannula 02/27/2024 patient is alert and oriented 3. EEG and MRI has been ordered per neurology services. This time patient denies chest pain or shortness of breath. Patient denies nausea vomiting or diarrhea. Patient denies any urinary burning or frequency. Discharge planning to [facility] Objective - Vital Signs Vital signs: Vital Signs Temp 97.9 F 02/27/24 06:53 Pulse 69 02/27/24 09:52 Resp 19 02/27/24 06:53 BP 86/46 02/27/24 09:52 Pulse Ox 97 02/27/24 09:49 FiO2 Intake & Output 02/26/24 02/27/24 02/27/24 18:59 06:59 18:59 Intake Total 300 Output Total 600 1000 Balance -300 -1000 Intake: Oral 300 Output: Urine 600 1000 Other: Voiding Method External Catheter External Catheter # Voids 2 - Exam In general patient is alert and oriented x 3 in no distress HEENT head normocephalic and atraumatic Neck is supple no JVD no goiter no lymphadenopathy no carotid bruit Chest examination is clear to auscultation no crackles no wheezing Cardiac exam reveals regular heart sounds S1 and S2 no gallops no murmurs Abdomen is soft nontender no organomegaly with normal bowel sounds Extremity exam reveals no edema no cyanosis or clubbing Neurological examination reveals no gross focal deficits - Labs CBC & Chem 7: 02/26/24 04:22 02/26/24 04:22 Labs: Abnormal Lab Results - Last 24 Hours (Table) 02/26/24 02/26/24 02/26/24 Range/Units 04:22 04:22 04:22 RBC 3.48 L (4.10-5.20) X 10*6/uL Hgb 9.6 L (12.0-15.0) g/dL Hct 31.9 L (37.2-46.3) % MCHC 30.1 L (32.0-37.0) g/dL RDW 16.8 H (11.5-14.5) % Anion Gap 13.80 H (4.00-12.00) mmol/L Hemoglobin A1c 6.8 H (<=6.0) % Calcium 8.6 L (8.7-10.3) mg/dL AST 40 H (13-35) U/L Total Protein 5.4 L (6.2-8.2) g/dL Albumin 3.2 L (3.8-4.9) g/dL Albumin/Globulin Ratio 1.45 L (1.60-3.17) Ratio Assessment and Plan Plan: Generalized weakness with multiple falls Anemia, will check stools for Hemoccult, check iron vitamin B12 and folate level, consult gastroenterology for GI workup Urinary tract infection Underlying history of hypertension Underlying history of hyperlipidemia Underlying history of hypothyroidism Underlying history of seizure activity maintained on Keppra Underlying history of depression with anxiety disorder Chest x-ray revealing pulmonary edema, will check BNP and echocardiogram At this time patient is admitted to medical floor Home medications reviewed and reordered Neurology consultation requested Consultation for gastroenterology and neurology initiated Will check echocardiogram For DVT prophylaxis subcu Lovenox Will follow closely
--- NOTE | 2024-02-27 13:02 | P.PN ---
Subjective Progress Note Date: 02/27/24 I was asked to evaluate this patient regarding her abnormal CAT scan of the chest. The patient is known to me. She follows up with my partner in the office. She has history of chronic pulmonary fibrosis. She was also history of anal cancer and she was noted to have a right lower lobe subpleural opacity that showed some limited activity on the previous PET scan. There was concern for malignancy. I was approached the biopsy this abnormality. Nevertheless, the findings on the CAT scan were quite nonspecific and we decided to monitor and continue surveillance with another CAT scan of the chest and a PET/CT. Noted the patient underwent a follow-up CAT scan of the chest on 01/26/2024. That maggie e, the patient was noted to have a moderate-sized right-sided pleural effusion. Chronic fibrotic changes bilaterally. The right lower lobe subpleural opacity was still present and there was note of right hilar and similar mediastinal lymphadenopathy. At that point, the patient was given a thoracentesis of the right lung. This was done during her hospital stay and the pleural fluid that was drained turned out to be an exudate with negative cytology. The procedure was done without any complications. A total of 1 L of dark yellowish fluid was aspirated and the fluid cytology was negative for malignancy. No subsequent pneumothorax. In any rate, the patient was supposed to have a PET/CT and this is scheduled to be done on 02/27/2024. Meanwhile, the patient gets hospitalized again with fall. She felt very weak and she landed on her knees bilaterally. She has undergone previous bilateral knee replacements. No reported fractures. No focal neurological deficits. She has carotid Dopplers that reported occlusion in the right ICA and moderate disease in the left ICA. Vascular surg hansel has been consulted regarding carotid artery stenosis. Along with pulmonary fibrosis, she has diabetes mellitus, hyperlipidemia, squamous cell anal cancer and anemia of chronic disease. She is oxygen dependent and currently she is on oxygen at 4 L nasal cannula. The white cell count is at 10.2 with a hemoglobin of 10.3 and a platelet count of 318. Sodium levels at 134, BUN is 11 with a creatinine of 0.6. No cough. No sputum production. No chest tightness. No wheezing. Repeat chest x-ray that was done during this current admission shows chronic fibrotic changes bilaterally without any evidence of fluid recurrence. Her previous echocardiogram done on 01/25/2024 showed a preserved LV function, mild to moderate mitral regurgitation and moderate mitral stenosis and moderate degree of pulmonary hypertension with tricuspid regurgitation. The CAT scan of the brain done on 02/25/2024 showed no acute intracranial process in the remote included injury with nonspecific white matter changes and chronic microangiopathy. On 02/26/2024, the patient is being seen for a follow-up. No new complaints. The patient was seen by neurology. Unable to do MRI of the brain as the patient has a pain stimulator. EEG was ordered. Essentially The Same Medications. White Cell Count Is at 8.9, Hemoglobin 9.6, Platelet Count of 402. Electrolytes Are All within Normal Limits. On 02/27/2024, seen the patient for a follow-up. No respiratory difficulties. She continues to have generalized weakness. Alert oriented x 3. MRI of the brain and EEG is also ordered by neurology. Labs are stable. Hemoglobin is at 9.6, the white cell count is at 8.9, electrolytes are all within normal limits. Normal LFTs. Objective - Vital Signs Vital signs: Vital Signs Temp 97.9 F 02/27/24 06:53 Pulse 68 02/27/24 09:49 Resp 19 02/27/24 06:53 BP 85/50 02/27/24 09:49 Pulse Ox 97 02/27/24 09:49 FiO2 Intake & Output 02/26/24 02/27/24 02/27/24 18:59 06:59 18:59 Intake Total 300 Output Total 600 1000 Balance -300 -1000 Intake: Oral 300 Output: Urine 600 1000 Other: Voiding Method External Catheter External Catheter # Voids 2 - Exam GENERAL EXAM: Alert, 74-year-old female, on 3 L nasal cannula, resting in bed, in no apparent distress. HEAD: Normocephalic. EYES: Normal reaction of pupils, equal size. NOSE: Clear with pink turbinates. THROAT: No erythema or exudates. NECK: No masses, no JVD. CHEST: No chest wall deformity. LUNGS: Equal air entry with scattered rhonchi, crackles in the right lung base. CVS: S1 and S2 normal with no audible murmur, regular rhythm. ABDOMEN: No hepatosplenomegaly, normal bowel sounds, no guarding or rigidity. SPINE: No scoliosis or deformity SKIN: No rashes CENTRAL NERVOUS SYSTEM: No focal deficits, tone is normal in all 4 extremities. EXTREMITIES: Transmetatarsal amputation on the right foot. There is no peripheral edema. No clubbing, no cyanosis. Peripheral pulses are intact. - Labs CBC & Chem 7: 02/26/24 04:22 02/26/24 04:22 Labs: Abnormal Lab Results - Last 24 Hours (Table) 02/26/24 02/26/24 02/26/24 Range/Units 04:22 04:22 04:22 RBC 3.48 L (4.10-5.20) X 10*6/uL Hgb 9.6 L (12.0-15.0) g/dL Hct 31.9 L (37.2-46.3) % MCHC 30.1 L (32.0-37.0) g/dL RDW 16.8 H (11.5-14.5) % Anion Gap 13.80 H (4.00-12.00) mmol/L Hemoglobin A1c 6.8 H (<=6.0) % Calcium 8.6 L (8.7-10.3) mg/dL AST 40 H (13-35) U/L Total Protein 5.4 L (6.2-8.2) g/dL Albumin 3.2 L (3.8-4.9) g/dL Albumin/Globulin Ratio 1.45 L (1.60-3.17) Ratio Assessment and Plan Plan: Chronic pulmonary fibrosis with hypoxic respiratory failure, currently on 3 L of oxygen by nasal cannula. 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 Right lower lobe posterior subpleural pulmonary opacity with limited uptake on a previous PET/CT that was done in August 2023. Awaiting a follow-up PET/CT on 02/27/2024. Noted the patient also has some nonspecific right hilar than mediastinal lymphadenopathy that is being monitored. The patient has a 3 cm masslike consolidative density in the right lower lobe being followed in the outpatient setting. A PET scan from August 19, 2023 revealed right lower lobe pulmonary nodule with increased metabolic activity compatible with malignancy. There is at least 1 right pulmonary hilum lymph node suspicious for metastatic disease. Extensive interstitial opacities along suspicious for ILD. CT scan of the chest was done yesterday 10/08/2023 that revealed similar pleural-based mass of the right lower lobe which is essentially unchanged in overall size and appearance. Possible minimal early cavitation. Pulmonary fibrosis at least moderate in degree. Plan is for follow-up PET scan was to be 02/27/2024 Chronic hypoxic respiratory failure, currently on 4 L History of anal cancer. By chemotherapy and radiation therapy Right-sided pleural effusion, exudate, postthoracentesis without any recurrence. A total of 1 L of fluid was aspirated Valvular heart disease with mild to moderate mitral stenosis moderate degree of pulmonary hypertension based on most recent echocardiogram. Patient has preserved LV function History of CVA/TIA x 3 with evidence of carotid artery disease with left-sided stenosis in the order of 50 to 69% Obstructive sleep apnea, no CPAP therapy for now Peripheral vascular disease, and the patient has undergone previous right fem- tib bypass and the patient has previous right toe amputations Nephrolithiasis Diabetes mellitus type 2 Hyperlipidemia Hypothyroidism Former smoker Generalized weakness and frequent falls without any fracture Plan The patient's weakness being further investigated. The patient was seen by neurology In regards to her pulmonary status, the patient's breathing is stable. Pleural fluid cytology is negative for malignancy from recent thoracentesis No plans for biopsy Awaiting a PET/CT to be done on 02/27/2024 *EBUS with mediastinal lymph node sampling will be considered if there is any progression in the mediastinal lymph nodes Vascular surgery regarding carotid artery stenosis, no surgical intervention. The patient has a chronically occluded right internal carotid artery and less than 50% on the left.
[2024-02-27] MEDS ORDERED: DEXTROSE 50% SYRINGE 50 ML IVP PRN ×2 (14:50)
[2024-02-27 16:23] LABS: Glucose,Whole Blood 102 mg/dL (70-110)
[2024-02-27] MEDS: INSULIN ASPART (NovoLOG) 100 UNIT/ML VIAL SQ SCH (16:46)
[2024-02-27 20:26] LABS: Glucose,Whole Blood 91 mg/dL (70-110)
[2024-02-28 06:26] LABS: Glucose,Whole Blood 117 mg/dL (70-110)
[2024-02-28 08:32] LABS: Basophils # (A) 0.04 X 10*3/uL (0.00-0.10); Basophils % (A) 0.6 %; Eosinophils # (A) 0.23 X 10*3/uL (0.04-0.35); Eosinophils % (A) 3.5 %; HGB 9.1 g/dL (12.0-15.0); Lymphocytes # (A) 2.05 X 10*3/uL (0.90-5.00); Lymphocytes % (A) 31.1 %; MCH 27.8 pg (27.0-32.0); MCHC 30.3 g/dL (32.0-37.0); MCV 91.7 FL (80.0-97.0); Mean Platelet Volume 10.4 FL (9.5-12.2); Monocytes # (A) 0.58 X 10*3/uL (0.20-1.00); Monocytes % (A) 8.8 %; NRBC Per 100 WBC 0 X 10*3/uL (0.00-0.01); Neutrophils # (A) 3.67 X 10*3/uL (1.80-7.70); Neutrophils % (A) 55.5 %; Platelet Count 381 X 10*3/uL (140-440); RBC 3.27 X 10*6/uL (4.10-5.20); RDW 16.5 % (11.5-14.5)
[2024-02-28 08:35] LABS: ALT 29 U/L (8-44); AST 41 U/L (13-35); Albumin 3.1 g/dL (3.8-4.9); Albumin/Globulin Ratio 1.48 Ratio (1.60-3.17); Alkaline Phosphatase 76 U/L (41-126); BUN/Creat Ratio 12.29 Ratio (12.00-20.00); Blood Urea Nitrogen 8.6 mg/dL (9.0-27.0); Calcium 8.5 mg/dL (8.7-10.3); Carbon Dioxide 24.3 mmol/L (21.6-31.8); Chloride 102 mmol/L (96-109); Globulin 2.1 g/dL (1.6-3.3); Glucose 102 mg/dL (70-110); Potassium 3.7 mmol/L (3.5-5.5); Sodium 138 mmol/L (135-145); Total Bilirubin <0.2 mg/dL (0.3-1.2); Total Protein 5.2 g/dL (6.2-8.2)
[2024-02-28 11:33] LABS: Glucose,Whole Blood 108 mg/dL (70-110)
--- NOTE | 2024-02-28 13:35 | P.PN ---
Subjective Progress Note Date: 02/28/24 I was asked to evaluate this patient regarding her abnormal CAT scan of the chest. The patient is known to me. She follows up with my partner in the office. She has history of chronic pulmonary fibrosis. She was also history of anal cancer and she was noted to have a right lower lobe subpleural opacity that showed some limited activity on the previous PET scan. There was concern for malignancy. I was approached the biopsy this abnormality. Nevertheless, the findings on the CAT scan were quite nonspecific and we decided to monitor and continue surveillance with another CAT scan of the chest and a PET/CT. Noted the patient underwent a follow-up CAT scan of the chest on 01/26/2024. That time, the patient was noted to have a moderate-sized right-sided pleural effusion. Chronic fibrotic changes bilaterally. The right lower lobe subpleural opacity was still present and there was note of right hilar and similar mediastinal lymphadenopathy. At that point, the patient was given a thoracentesis of the right lung. This was done during her hospital stay and the pleural fluid that was drained turned out to be an exudate with negative cytology. The procedure was done without any complications. A total of 1 L of dark yellowish fluid was aspirated and the fluid cytology was negative for malignancy. No subsequent pneumothorax. In any rate, the patient was supposed to have a PET/CT and this is scheduled to be done on 02/27/2024. Meanwhile, the patient gets hospitalized again with fall. She felt very weak and she landed on her knees bilaterally. She has undergone previous bilateral knee replacements. No reported fractures. No focal neurological deficits. She has carotid Dopp lers that reported occlusion in the right ICA and moderate disease in the left ICA. Vascular surgery has been consulted regarding carotid artery stenosis. Along with pulmonary fibrosis, she has diabetes mellitus, hyperlipidemia, squamous cell anal cancer and anemia of chronic disease. She is oxygen dependent and currently she is on oxygen at 4 L nasal cannula. The white cell count is at 10.2 with a hemoglobin of 10.3 and a platelet count of 318. Sodium levels at 134, BUN is 11 with a creatinine of 0.6. No cough. No sputum production. No chest tightness. No wheezing. Repeat chest x-ray that was done during this current admission shows chronic fibrotic changes bilaterally without any evidence of fluid recurrence. Her previous echocardiogram done on 01/25/2024 showed a preserved LV function, mild to moderate mitral regurgitation and moderate mitral stenosis and moderate degree of pulmonary hypertension with tricuspid regurgitation. The CAT scan of the brain done on 02/25/2024 showed no acute intracranial process in the remote included injury with nonspecific white matter changes and chronic microangiopathy. On 02/26/2024, the patient is being seen for a follow-up. No new complaints. The patient was seen by neurology. Unable to do MRI of the brain as the patient has a pain stimulator. EEG was ordered. Essentially The Same Medications. White Cell Count Is at 8.9, Hemoglobin 9.6, Platelet Count of 402. Electrolytes Are All within Normal Limits. On 02/27/2024, seen the patient for a follow-up. No respiratory difficulties. She continues to have generalized weakness. Alert oriented x 3. MRI of the brain and EEG is also ordered by neurology. Labs are stable. Hemoglobin is at 9.6, the white cell count is at 8.9, electrolytes are all within normal limits. Normal LFTs. The patient is seen today February 28, 2024 in follow-up on the regular medical floor. She is currently resting in bed. Awake and alert in no acute distress. Maintaining good O2 saturation in the mid 90s on 4 L/min per nasal cannula. She is afebrile. Urine culture revealed no growth. White count 6.6. Hemoglobin 9.1. Platelets 381. Sodium 138. Potassium 3.7. Bicarb 24. BUN 9. Creatinine 0.7. Glucose 102. She is currently on ceftriaxone. Normal saline at 75 mL/h. Objective - Vital Signs Vital signs: Vital Signs Temp 98.2 F 02/28/24 07:18 Pulse 68 02/28/24 10:47 Resp 18 02/28/24 08:51 BP 93/56 02/28/24 10:47 Pulse Ox 97 02/28/24 07:18 FiO2 Intake & Output 02/27/24 02/28/24 02/28/24 18:59 06:59 18:59 Output Total 1000 650 Balance -1000 -650 Output: Urine 1000 650 Other: Voiding Method External Catheter External Catheter External Catheter - Exam GENERAL EXAM: Alert, pleasant 74-year-old female, on 4 L nasal cannula, in no apparent distress. HEAD: Normocephalic. EYES: Normal reaction of pupils, equal size. NOSE: Clear with pink turbinates. THROAT: No erythema or exudates. NECK: No masses, no JVD. CHEST: No chest wall deformity. LUNGS: Equal air entry with scattered rhonchi, crackles in the right lung base. CVS: S1 and S2 normal with no audible murmur, regular rhythm. ABDOMEN: No hepatosplenomegaly, normal bowel sounds, no guarding or rigidity. SPINE: No scoliosis or deformity SKIN: No rashes CENTRAL NERVOUS SYSTEM: No focal deficits, tone is normal in all 4 extremities. EXTREMITIES: Transmetatarsal amputation on the right foot. There is no peripheral edema. No clubbing, no cyanosis. Peripheral pulses are intact. - Labs CBC & Chem 7: 02/28/24 03:06 02/28/24 03:06 Labs: Abnormal Lab Results - Last 24 Hours (Table) 02/28/24 02/28/24 02/28/24 Range/Units 03:06 03:06 06:23 RBC 3.27 L (4.10-5.20) X 10*6/uL Hgb 9.1 L (12.0-15.0) g/dL Hct 30.0 L (37.2-46.3) % MCHC 30.3 L (32.0-37.0) g/dL RDW 16.5 H (11.5-14.5) % BUN 8.6 L (9.0-27.0) mg/dL POC Glucose (mg/dL) 117 H (70-110) mg/dL Calcium 8.5 L (8.7-10.3) mg/dL Total Bilirubin <0.2 L (0.3-1.2) mg/dL AST 41 H (13-35) U/L Total Protein 5.2 L (6.2-8.2) g/dL Albumin 3.1 L (3.8-4.9) g/dL Albumin/Globulin Ratio 1.48 L (1.60-3.17) Ratio Assessment and Plan Assessment: Chronic pulmonary fibrosis with hypoxic respiratory failure, currently on 4 L of oxygen by nasal cannula. 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 Right lower lobe posterior subpleural pulmonary opacity with limited uptake on a previous PET/CT that was done in August 2023. Awaiting a follow-up PET/CT on 02/27/2024. Noted the patient also has some nonspecific right hilar than mediastinal lymphadenopathy that is being monitored. The patient has a 3 cm masslike consolidative density in the right lower lobe being followed in the outpatient setting. A PET scan from August 19, 2023 revealed right lower lobe pulmonary nodule with increased metabolic activity compatible with malignancy. There is at least 1 right pulmonary hilum lymph node suspicious for metastatic disease. Extensive interstitial opacities along suspicious for ILD. CT scan of the chest was done yesterday 10/08/2023 that revealed similar pleural-based mass of the right lower lobe which is essentially unchanged in overall size and appearance. Possible minimal early cavitation. Pulmonary fibrosis at least moderate in degree. Plan is for follow-up PET scan Chronic hypoxic respiratory failure, currently on 4 L History of anal cancer. Treated with chemotherapy and radiation therapy Right-sided pleural effusion, exudate, postthoracentesis January 28 2024 without any recurrence. A total of 1 L of fluid was aspirated Valvular heart disease with mild to moderate mitral stenosis moderate degree of pulmonary hypertension based on most recent echocardiogram. Patient has preserved LV function History of CVA/TIA x 3 with evidence of carotid artery disease with left-sided stenosis in the order of 50 to 69% Obstructive sleep apnea, no CPAP therapy for now Peripheral vascular disease, and the patient has undergone previous right fem- tib bypass and the patient has previous right toe amputations Nephrolithiasis Diabetes mellitus type 2 Hyperlipidemia Hypothyroidism Former smoker Generalized weakness and frequent falls without any fracture Plan: The patient was seen and evaluated Stable and on 4 L nasal cannula Labs and medications reviewed Plan is for [facility] at discharge Will need follow-up outpatient PET scan I have personally seen and examined the patient, performed the documentation and the assessment and plan as written. Number of minutes spent on the visit: 10 Dictation was produced using Parchmentation software. Please excuse any grammatical, word or spelling errors.
--- NOTE | 2024-02-28 14:26 | P.PN ---
Subjective Progress Note Date: 02/28/24 Alexia Rubin, is a 74-year-old female who presented to [facility] emergency room with a chief complaint of generalized weakness and multiple falls, patient was recently hospitalized, and transferred to [facility] for rehabilitation, she was recently discharged home, however she continued to have severe weakness and multiple falls, she was brought back by her family to the emergency room for further evaluation and treatment and possible readmission to the [place] [facility]. She was evaluated in the emergency room vital examination on presentation revealed a temperature of 97.8 pulse 70 respiration 18 blood pressure 94/69 pulse ox 99% on room air Laboratory data revealed a white blood count of 9.4 hemoglobin 9.2 platelet count 347 sodium 136 potassium 3.3 chloride 103 CO2 26 BUN 10 creatinine 0.62 lactic acid 1.5, urine analysis revealed evidence of urinary tract infection Testing in the emergency room revealed EKG done in the emergency room revealed sinus rhythm with occasional supraventricular premature complexes, x-ray of the left knee done in the emergency room revealed moderate left joint effusion, chest x-ray was done in the emergency room and revealed evidence for pulmonary edema. Patient was admitted to medical floor for further evaluation and treatment On 02/25/2024 patient's alert and oriented x 3. Repeat labs have been ordered. Carotid Doppler showing some stenosis will consult Dr. Espinal for vascular surgery. GI recommending outpatient follow-up with Dr. hall still awaiting neurology input. Current vital signs temp 97.8, heart rate 65, respiratory rate 15, blood pressure 105/51 with a pulse ox of 97% on 4 L On 02/26/2024 patient was seen and examined on the medical floor, she is alert and oriented x 3 in no apparent distress, she is complaining of shortness of breath with any activity otherwise she denies any complaints there is no fever or chills no headache or dizziness no chest pain she has occasional cough no nausea or vomiting no abdominal pain no diarrhea and no urinary symptoms, she remains on oxygen 4 L via nasal cannula, temperature is 98.0 pulse 69 respiration 19 blood pressure 126/50 pulse ox 93% on 4 L nasal cannula 02/27/2024 patient is alert and oriented 3. EEG and MRI has been ordered per neurology services. This time patient denies chest pain or shortness of breath. Patient denies nausea vomiting or diarrhea. Patient denies any urinary burning or frequency. Discharge planning to [facility] On 02/28/2024 patient was seen and examined on the medical floor she is alert and oriented in no apparent distress, there is no fever or chills no headache or dizziness no chest pain no shortness of breath no cough no nausea or vomiting no abdominal pain no diarrhea and no urinary symptoms blood pressure is low at 84/42, IV normal saline at 75 cc/h were added, cardiology consultation re quested, will follow closely. Objective - Vital Signs Vital signs: Vital Signs Temp 98.2 F 02/28/24 07:18 Pulse 69 02/28/24 07:18 Resp 18 02/28/24 07:18 BP 87/55 02/28/24 07:18 Pulse Ox 97 02/28/24 07:18 FiO2 Intake & Output 02/27/24 02/28/24 02/28/24 18:59 06:59 18:59 Output Total 1000 650 Balance -1000 -650 Output: Urine 1000 650 Other: Voiding Method External Catheter External Catheter - Exam In general patient is alert and oriented x 3 in no distress HEENT head normocephalic and atraumatic Neck is supple no JVD no goiter no lymphadenopathy no carotid bruit Chest examination is clear to auscultation no crackles no wheezing Cardiac exam reveals regular heart sounds S1 and S2 no gallops no murmurs Abdomen is soft nontender no organomegaly with normal bowel sounds Extremity exam reveals no edema no cyanosis or clubbing Neurological examination reveals no gross focal deficits - Labs CBC & Chem 7: 02/28/24 03:06 02/28/24 03:06 Labs: Abnormal Lab Results - Last 24 Hours (Table) 02/28/24 02/28/24 02/28/24 Range/Units 03:06 03:06 06:23 RBC 3.27 L (4.10-5.20) X 10*6/uL Hgb 9.1 L (12.0-15.0) g/dL Hct 30.0 L (37.2-46.3) % MCHC 30.3 L (32.0-37.0) g/dL RDW 16.5 H (11.5-14.5) % BUN 8.6 L (9.0-27.0) mg/dL POC Glucose (mg/dL) 117 H (70-110) mg/dL Calcium 8.5 L (8.7-10.3) mg/dL Total Bilirubin <0.2 L (0.3-1.2) mg/dL AST 41 H (13-35) U/L Total Protein 5.2 L (6.2-8.2) g/dL Albumin 3.1 L (3.8-4.9) g/dL Albumin/Globulin Ratio 1.48 L (1.60-3.17) Ratio Assessment and Plan Plan: Generalized weakness with multiple falls Anemia, will check stools for Hemoccult, check iron vitamin B12 and folate level, consult gastroenterology for GI workup Urinary tract infection Underlying history of hypertension Underlying history of hyperlipidemia Underlying history of hypothyroidism Underlying history of seizure activity maintained on Keppra Underlying history of depression with anxiety disorder Chest x-ray revealing pulmonary edema, will check BNP and echocardiogram At this time patient is admitted to medical floor Home medications reviewed and reordered Neurology consultation requested Consultation for gastroenterology and neurology initiated Will check echocardiogram For DVT prophylaxis subcu Lovenox Will follow closely
[2024-02-28] MEDS: ENOXAPARIN 40 MG/0.4 ML SYRINGE SQ SCH (14:35)
[2024-02-28] MEDS: SODIUM CHLORIDE 0.9% 1,000 ML IV SCH (14:37)
[2024-02-28 16:36] LABS: Glucose,Whole Blood 127 mg/dL (70-110)
[2024-02-28 20:50] LABS: Glucose,Whole Blood 134 mg/dL (70-110)
[2024-02-28] MEDS: ONDANSETRON 4 MG/2 ML VIAL IVP PRN (21:31)
--- NOTE | 2024-02-29 00:24 | EEG ---
DATE OF SERVICE: 02/28/2024 ELECTROENCEPHALOGRAM REPORT PREAMBLE: This is a 74-year-old female, came with recurrent falls, tremors on the left side, rule out seizure. CURRENT MEDICATIONS: 1. Tegretol XR. 2. Plavix. 3. Prozac. 4. Neurontin. 5. Keppra. 6. Desyrel. EEG FINDINGS: This is a 21-channel digital EEG recorded with video component, utilizing 10/20 international system with referential and bipolar montages. Background consists of well developed, well regulated, moderate voltage activity in 8 hertz alpha. Background is posterior dominant and reactive to eye opening and closing. Photic driving response was seen with some flash frequencies. Drowsiness was seen with appearance of bilaterally symmetric theta frequency rhythm. Deeper stages of sleep were not seen. No focal or generalized epileptiform activity was seen. IMPRESSION: This is a normal awake and drowsy EEG. No focal, lateralized, or epileptiform activity was seen. MMODL / IJN: [id number] / CHARY
[2024-02-29 06:45] LABS: Glucose,Whole Blood 166 mg/dL (70-110)
[2024-02-29 08:23] LABS: Basophils # (A) 0.04 X 10*3/uL (0.00-0.10); Basophils % (A) 0.6 %; Eosinophils # (A) 0.21 X 10*3/uL (0.04-0.35); Eosinophils % (A) 3.1 %; HCT 28.3 % (37.2-46.3); HGB 8.5 g/dL (12.0-15.0); Lymphocytes # (A) 2.22 X 10*3/uL (0.90-5.00); Lymphocytes % (A) 33.3 %; MCH 27.7 pg (27.0-32.0); MCV 92.2 FL (80.0-97.0); Mean Platelet Volume 10.3 FL (9.5-12.2); NRBC Per 100 WBC 0 X 10*3/uL (0.00-0.01); Neutrophils # (A) 3.57 X 10*3/uL (1.80-7.70); Neutrophils % (A) 53.6 %; Platelet Count 380 X 10*3/uL (140-440); RBC 3.07 X 10*6/uL (4.10-5.20); RDW 16.8 % (11.5-14.5); WBC 6.67 X 10*3/uL (4.50-10.00)
--- NOTE | 2024-02-29 09:14 | P.PN ---
Subjective Progress Note Date: 02/29/24 Alexia Rubin, is a 74-year-old female who presented to [facility] emergency room with a chief complaint of generalized weakness and multiple falls, patient was recently hospitalized, and transferred to [facility] for rehabilitation, she was recently discharged home, however she continued to have severe weakness and multiple falls, she was brought back by her family to the emergency room for further evaluation and treatment and possible readmission to the care home. She was evaluated in the emergency room vital examination on presentation revealed a temperature of 97.8 pulse 70 respiration 18 blood pressure 94/69 pulse ox 99% on room air Laboratory data revealed a white blood count of 9.4 hemoglobin 9.2 platelet count 347 sodium 136 potassium 3.3 chloride 103 CO2 26 BUN 10 creatinine 0.62 lactic acid 1.5, urine analysis revealed evidence of urinary tract infection Testing in the emergency room revealed EKG done in the emergency room revealed sinus rhythm with occasional supraventricular premature complexes, x-ray of the left knee done in the emergency room revealed moderate left joint effusion, chest x-ray was done in the emergency room and revealed evidence for pulmonary edema. Patient was admitted to medical floor for further evaluation and treatment On 02/25/2024 patient's alert and oriented x 3. Repeat labs have been ordered. Carotid Doppler showing some stenosis will consult Dr. Espinal for vascular surgery. GI recommending outpatient follow-up with Dr. hall still awaiting neurology input. Current vital signs temp 97.8, heart rate 65, respiratory rate 15, blood pressure 105/51 with a pulse ox of 97% on 4 L On 02/26/2024 patient was seen and examined on the medical floor, she is alert and oriented x 3 in no apparent distress, she is complaining of shortness of breath with any activity otherwise she denies any complaints there is no fever or chills no headache or dizziness no chest pain she has occasional cough no nausea or vomiting no abdominal pain no diarrhea and no urinary symptoms, she remains on oxygen 4 L via nasal cannula, temperature is 98.0 pulse 69 respiration 19 blood pressure 126/50 pulse ox 93% on 4 L nasal cannula 02/27/2024 patient is alert and oriented 3. EEG and MRI has been ordered per neurology services. This time patient denies chest pain or shortness of breath. Patient denies nausea vomiting or diarrhea. Patient denies any urinary burning or frequency. Discharge planning to [facility] On 02/28/2024 patient was seen and examined on the medical floor she is alert and oriented in no apparent distress, there is no fever or chills no headache or dizziness no chest pain no shortness of breath no cough no nausea or vomiting no abdominal pain no diarrhea and no urinary symptoms blood pressure is low at 84/42, IV normal saline at 75 cc/h were added, cardiology consultation re quested, will follow closely. On 02/29/2024 patient is alert and oriented x 3. Awaiting cardiology input due to hypotension. Current vital signs temp 97.6, heart rate 60, blood pressure 88/55 with a pulse ox of 95% on 4 L patient denies chest pain or shortness of breath. Patient denies nausea vomiting or diarrhea. Patient denies any urinary burning or frequency Objective - Vital Signs Vital signs: Vital Signs Temp 97.6 F 02/29/24 01:14 Pulse 60 02/29/24 03:05 Resp 17 02/29/24 01:14 BP 88/55 02/29/24 03:05 Pulse Ox 95 02/29/24 01:14 FiO2 Intake & Output 02/28/24 02/29/24 02/29/24 18:59 06:59 18:59 Output Total 350 700 Balance -350 -700 Output: Urine 350 700 Other: Voiding Method External Catheter External Catheter - Exam In general patient is alert and oriented x 3 in no distress HEENT head normocephalic and atraumatic Neck is supple no JVD no goiter no lymphadenopathy no carotid bruit Chest examination is clear to auscultation no crackles no wheezing Cardiac exam reveals regular heart sounds S1 and S2 no gallops no murmurs Abdomen is soft nontender no organomegaly with normal bowel sounds Extremity exam reveals no edema no cyanosis or clubbing Neurological examination reveals no gross focal deficits - Labs CBC & Chem 7: 02/29/24 02:55 02/28/24 03:06 Labs: Abnormal Lab Results - Last 24 Hours (Table) 02/28/24 02/28/24 02/29/24 Range/Units 16:35 20:49 02:55 RBC 3.07 L (4.10-5.20) X 10*6/uL Hgb 8.5 L (12.0-15.0) g/dL Hct 28.3 L (37.2-46.3) % MCHC 30.0 L (32.0-37.0) g/dL RDW 16.8 H (11.5-14.5) % POC Glucose (mg/dL) 127 H 134 H (70-110) mg/dL 02/29/24 Range/Units 06:44 RBC (4.10-5.20) X 10*6/uL Hgb (12.0-15.0) g/dL Hct (37.2-46.3) % MCHC (32.0-37.0) g/dL RDW (11.5-14.5) % POC Glucose (mg/dL) 166 H (70-110) mg/dL Assessment and Plan Plan: Generalized weakness with multiple falls Anemia, will check stools for Hemoccult, check iron vitamin B12 and folate level, consult gastroenterology for GI workup Urinary tract infection Underlying history of hypertension Underlying history of hyperlipidemia Underlying history of hypothyroidism Underlying history of seizure activity maintained on Keppra Underlying history of depression with anxiety disorder Chest x-ray revealing pulmonary edema, will check BNP and echocardiogram At this time patient is admitted to medical floor Home medications reviewed and reordered Neurology consultation requested Consultation for gastroenterology and neurology initiated Will check echocardiogram For DVT prophylaxis subcu Lovenox Will follow closely
[2024-02-29 09:17] LABS: ALT 26 U/L (8-44); AST 37 U/L (13-35); Alkaline Phosphatase 73 U/L (41-126); BUN/Creat Ratio 13.17 Ratio (12.00-20.00); Blood Urea Nitrogen 7.9 mg/dL (9.0-27.0); Calcium 8.2 mg/dL (8.7-10.3); Carbon Dioxide 24.6 mmol/L (21.6-31.8); Chloride 104 mmol/L (96-109); Glucose 112 mg/dL (70-110); Potassium 3.4 mmol/L (3.5-5.5); Sodium 138 mmol/L (135-145); Total Bilirubin <0.2 mg/dL (0.3-1.2)
[2024-02-29 12:01] LABS: Glucose,Whole Blood 121 mg/dL (70-110)
--- NOTE | 2024-02-29 12:03 | P.PN ---
Subjective Progress Note Date: 02/29/24 I was asked to evaluate this patient regarding her abnormal CAT scan of the chest. The patient is known to me. She follows up with my partner in the office. She has history of chronic pulmonary fibrosis. She was also history of anal cancer and she was noted to have a right lower lobe subpleural opacity that showed some limited activity on the previous PET scan. There was concern for malignancy. I was approached the biopsy this abnormality. Nevertheless, the findings on the CAT scan were quite nonspecific and we decided to monitor and continue surveillance with another CAT scan of the chest and a PET/CT. Noted the patient underwent a follow-up CAT scan of the chest on 01/26/2024. That time, the patient was noted to have a moderate-sized right-sided pleural effusion. Chronic fibrotic changes bilaterally. The right lower lobe subpleural opacity was still present and there was note of right hilar and similar mediastinal lymphadenopathy. At that point, the patient was given a thoracentesis of the right lung. This was done during her hospital stay and the pleural fluid that was drained turned out to be an exudate with negative cytology. The procedure was done without any complications. A total of 1 L of dark yellowish fluid was aspirated and the fluid cytology was negative for malignancy. No subsequent pneumothorax. In any rate, the patient was supposed to have a PET/CT and this is scheduled to be done on 02/27/2024. Meanwhile, the patient gets hospitalized again with fall. She felt very weak and she landed on her knees bilaterally. She has undergone previous bilateral knee replacements. No reported fractures. No focal neurological deficits. She has carotid Dopp lers that reported occlusion in the right ICA and moderate disease in the left ICA. Vascular surgery has been consulted regarding carotid artery stenosis. Along with pulmonary fibrosis, she has diabetes mellitus, hyperlipidemia, squamous cell anal cancer and anemia of chronic disease. She is oxygen dependent and currently she is on oxygen at 4 L nasal cannula. The white cell count is at 10.2 with a hemoglobin of 10.3 and a platelet count of 318. Sodium levels at 134, BUN is 11 with a creatinine of 0.6. No cough. No sputum production. No chest tightness. No wheezing. Repeat chest x-ray that was done during this current admission shows chronic fibrotic changes bilaterally without any evidence of fluid recurrence. Her previous echocardiogram done on 01/25/2024 showed a preserved LV function, mild to moderate mitral regurgitation and moderate mitral stenosis and moderate degree of pulmonary hypertension with tricuspid regurgitation. The CAT scan of the brain done on 02/25/2024 showed no acute intracranial process in the remote included injury with nonspecific white matter changes and chronic microangiopathy. On 02/26/2024, the patient is being seen for a follow-up. No new complaints. The patient was seen by neurology. Unable to do MRI of the brain as the patient has a pain stimulator. EEG was ordered. Essentially The Same Medications. White Cell Count Is at 8.9, Hemoglobin 9.6, Platelet Count of 402. Electrolytes Are All within Normal Limits. On 02/27/2024, seen the patient for a follow-up. No respiratory difficulties. She continues to have generalized weakness. Alert oriented x 3. MRI of the brain and EEG is also ordered by neurology. Labs are stable. Hemoglobin is at 9.6, the white cell count is at 8.9, electrolytes are all within normal limits. Normal LFTs. The patient is seen today February 28, 2024 in follow-up on the regular medical floor. She is currently resting in bed. Awake and alert in no acute distress. Maintaining good O2 saturation in the mid 90s on 4 L/min per nasal cannula. She is afebrile. Urine culture revealed no growth. White count 6.6. Hemoglobin 9.1. Platelets 381. Sodium 138. Potassium 3.7. Bicarb 24. BUN 9. Creatinine 0.7. Glucose 102. She is currently on ceftriaxone. Normal saline at 75 mL/h. The patient is seen today February 29, 2024 in follow-up on the regular medical floor. She is sitting up in bed. Awake and alert in no acute distress. O2 saturations in the 90s on 4 L/min per nasal cannula. She is afebrile. Culture revealed no growth. White count 6.6. Hemoglobin 8.5. Platelets 380. Sodium 138. Potassium 3.4. Bicarb 25. BUN 8. Creatinine 0.6. Troponin negative. Procalcitonin negative at 0.07. Rocephin discontinued. She remains on Lovenox for DVT prophylaxis. Normal saline at 75 mL/h. Objective - Vital Signs Vital signs: Vital Signs Temp 97.6 F 02/29/24 08:08 Pulse 67 02/29/24 08:08 Resp 18 02/29/24 10:15 BP 91/53 02/29/24 08:08 Pulse Ox 93 L 02/29/24 08:08 FiO2 Intake & Output 02/28/24 02/29/24 02/29/24 18:59 06:59 18:59 Output Total 350 700 Balance -350 -700 Output: Urine 350 700 Other: Voiding Method External Catheter External Catheter External Catheter # Voids 2 - Exam GENERAL EXAM: Alert, 74-year-old female, on 4 L nasal cannula, sitting up in bed, in no apparent distress. HEAD: Normocephalic. EYES: Normal reaction of pupils, equal size. NOSE: Clear with pink turbinates. THROAT: No erythema or exudates. NECK: No masses, no JVD. CHEST: No chest wall deformity. LUNGS: Equal air entry with scattered rhonchi, crackles in the right lung base. CVS: S1 and S2 normal with no audible murmur, regular rhythm. ABDOMEN: No hepatosplenomegaly, normal bowel sounds, no guarding or rigidity. SPINE: No scoliosis or deformity SKIN: No rashes CENTRAL NERVOUS SYSTEM: No focal deficits, tone is normal in all 4 extremities. EXTREMITIES: Transmetatarsal amputation on the right foot. There is no peripheral edema. No clubbing, no cyanosis. Peripheral pulses are intact. - Labs CBC & Chem 7: 02/29/24 02:55 02/29/24 02:55 Labs: Abnormal Lab Results - Last 24 Hours (Table) 02/28/24 02/28/24 02/29/24 Range/Units 16:35 20:49 02:55 RBC 3.07 L (4.10-5.20) X 10*6/uL Hgb 8.5 L (12.0-15.0) g/dL Hct 28.3 L (37.2-46.3) % MCHC 30.0 L (32.0-37.0) g/dL RDW 16.8 H (11.5-14.5) % Potassium (3.5-5.5) mmol/L BUN (9.0-27.0) mg/dL Glucose (70-110) mg/dL POC Glucose (mg/dL) 127 H 134 H (70-110) mg/dL Calcium (8.7-10.3) mg/dL Total Bilirubin (0.3-1.2) mg/dL AST (13-35) U/L Total Protein (6.2-8.2) g/dL Albumin (3.8-4.9) g/dL Albumin/Globulin Ratio (1.60-3.17) Ratio 02/29/24 02/29/24 Range/Units 02:55 06:44 RBC (4.10-5.20) X 10*6/uL Hgb (12.0-15.0) g/dL Hct (37.2-46.3) % MCHC (32.0-37.0) g/dL RDW (11.5-14.5) % Potassium 3.4 L (3.5-5.5) mmol/L BUN 7.9 L (9.0-27.0) mg/dL Glucose 112 H (70-110) mg/dL POC Glucose (mg/dL) 166 H (70-110) mg/dL Calcium 8.2 L (8.7-10.3) mg/dL Total Bilirubin <0.2 L (0.3-1.2) mg/dL AST 37 H (13-35) U/L Total Protein 5.0 L (6.2-8.2) g/dL Albumin 3.0 L (3.8-4.9) g/dL Albumin/Globulin Ratio 1.50 L (1.60-3.17) Ratio Assessment and Plan Assessment: Chronic pulmonary fibrosis with hypoxic respiratory failure, currently on 4 L of oxygen by nasal cannula. 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 Right lower lobe posterior subpleural pulmonary opacity with limited uptake on a previous PET/CT that was done in August 2023. Awaiting a follow-up PET/CT on 02/27/2024. Noted the patient also has some nonspecific right hilar than mediastinal lymphadenopathy that is being monitored. The patient has a 3 cm masslike consolidative density in the right lower lobe being followed in the outpatient setting. A PET scan from August 19, 2023 revealed right lower lobe pulmonary nodule with increased metabolic activity compatible with malignancy. There is at least 1 right pulmonary hilum lymph node suspicious for metastatic disease. Extensive interstitial opacities along suspicious for ILD. CT scan of the chest was done yesterday 10/08/2023 that revealed similar pleural-based mass of the right lower lobe which is essentially unchanged in overall size and appearance. Possible minimal early cavitation. Pulmonary fibrosis at least moderate in degree. Plan is for follow-up PET scan Chronic hypoxic respiratory failure, currently on 4 L History of anal cancer. Treated with chemotherapy and radiation therapy Right-sided pleural effusion, exudate, postthoracentesis January 28 2024 witho ut any recurrence. A total of 1 L of fluid was aspirated Valvular heart disease with mild to moderate mitral stenosis moderate degree of pulmonary hypertension based on most recent echocardiogram. Patient has preserved LV function History of CVA/TIA x 3 with evidence of carotid artery disease with left-sided stenosis in the order of 50 to 69% Obstructive sleep apnea, no CPAP therapy for now Peripheral vascular disease, and the patient has undergone previous right fem- tib bypass and the patient has previous right toe amputations Nephrolithiasis Diabetes mellitus type 2 Hyperlipidemia Hypothyroidism Former smoker Generalized weakness and frequent falls without any fracture Plan: The patient was seen and evaluated Labs and medications reviewed Procalcitonin negative Rocephin discontinued Stable and on 4 L nasal cannula Will need outpatient PET scan Plan is for [facility] at discharge I have personally seen and examined the patient, performed the documentation and the assessment and plan as written. Number of minutes spent on the visit: 10 Dictation was produced using [employer] dictation software. Please excuse any grammatical, word or spelling errors.
--- NOTE | 2024-02-29 12:16 | P.CRDCN ---
History of Present Illness Consult date: 02/29/24 Reason for Consult (text): Hypotension History of present illness: This is a 74-year-old female patient previously seen by Dr. Genao in the office in 2021 with past medical history of PAD with previous right fem-tib bypass and amputation of the right toes, valvular heart disease, diabetes mellitus type 2, dyslipidemia, COPD, chronic pulmonary fibrosis, chronic hypoxic respiratory failure on home O2 at 4 L, obstructive sleep apnea, TIA, chronic anemia, history of squamous cell anal cancer with current lung mass that has not been worked up, tobacco use and dependence. We have been asked to evaluate the patient for hypotension. Patient apparently recently left the retirement and presented to the hospital after she had a fall when her daughter was moving her to a wheelchair and injured her knees. Patient was admitted to the hospital on 02/22. Patient has multiple consultants in place including GI, vascular surgery, pulmonary medicine, neurology. Patient denies any shortness of breath at this time and no chest pain. Blood pressures have been on the soft side most systolic blood pressures are in the 80s up to 91. She is currently on IV fluids at 75 cc/h. Heart rate is in the 60s, pulse ox 93% on 4 L nasal cannula. EKG: Sinus rhythm with nonspecific ST changes Chest x-ray: 02/22: Correlate for pulmonary edema Laboratory studies: WBC 6.6, hemoglobin 8.5. Sodium 138, potassium 3.4, creatinine 0.6. Home cardiac medications: Aspirin 81 mg daily, Lipitor 80 mg at bedtime, Plavix 75 mg daily, Lasix 40 mg twice daily, also on levothyroxine 25 mcg daily Echocardiogram performed 01/24/2024 reveals EF of 55 to 60%, mild AAS and regurgitation, mild to moderate mitral regurgitation with moderate mitral stenosis, moderate tricuspid regurgitation and moderate pulmonary hypertension Lexiscan Cardiolite stress test performed 05/13/2020 revealed EF of 61%, normal test Review Of Systems: At the time of my exam: CONSTITUTIONAL: Denies fever or chills. Reports generalized weakness HEENT: Denies blurred vision, vision changes, or eye pain. Denies hemoptysis CARDIOVASCULAR: Denies chest pain. Denies orthopnea. Denies PND. Denies palpitations RESPIRATORY: Denies shortness of breath. GASTROINTESTINAL: Denies abdominal pain. Denies nausea or vomiting. HEMATOLOGIC: Denies bleeding disorders. GENITOURINARY: Denies any blood in urine. SKIN: Denies puritis. Denies rash. Physical examination: Gen: This is a 74-year-old female in no acute distress VS: reviewed HEENT: Head is atraumatic, normocephalic. Pupils equal, round. Sclerae is anicteric. NECK: Supple. No JVD. LUNGS: Clear to auscultation. No wheezes or rhonchi. No intercostal retractions. HEART: Regular rate and rhythm. No murmur. ABDOMEN: Soft No tenderness. EXTREMITIES: No pedal edema. No calf tenderness. NEUROLOGICAL: Patient is awake, alert and oriented x3. Assessment: Hypotension Generalized weakness PAD with previous right fem-tib bypass and amputation of the right toes Valvular heart disease with mild to moderate MR, moderate MS, moderate TR, mild and AR Moderate pulmonary hypertension Diabetes mellitus type 2 Dyslipidemia COPD Chronic pulmonary fibrosis Chronic hypoxic respiratory failure on home O2 at 4 L Obstructive sleep apnea not on CPAP TIAs multiple Chronic anemia History of squamous cell anal cancer Lung mass History of tobacco use and dependence, recently quit Right ICA occlusion, severe left carotid bulb stenosis with 50 to 69% Plan: Continue patient's home cardiac medications Note that patient is not on Lasix Obtain troponins x 3 No need to repeat echocardiogram as this was done in January Further recommendations to follow based upon clinical course Thank you kindly for this consultation. Nurse practitioner note has been reviewed, I agree with documented findings and plan of care. Patient was seen and examined. 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 ,States yeast infection in genital area and folds of abd., diet controlled diabetes., has st imulator left hip for back pain (not working)., PAD. Recent diagosis of lung cancer History of Any Multi-Drug Resistant Organisms: None Reported Past Surgical History: Appendectomy, Back Surgery, Bladder Surgery, Cholecystectomy, Hysterectomy, Joint Replacement Additional Past Surgical History / Comment(s): Bilateral knee replacements, right shoulder rotator cuff X2, bilateral iliac femoral stents, bladder suspension X2, right Mediport removed, left lung biopsy, lymph node biopsy, left groin biopsy(malignant). bilateral carpal tunnel, bilateral cataracts, right shoulder replacement. stimulator in hip (left) for back, bilateral iliac arterial stents., R femoral stent Past Anesthesia/Blood Transfusion Reactions: No Reported Reaction, Family History of Problems w/ Anesthesia Additional Past Anesthesia/Blood Transfusion Reaction / Comment(s): Claustrophobic., vomited and aspirated during colonoscopy. son had difficulty waking up after surgery Past Psychological History: Anxiety, Depression Smoking Status: Former smoker Past Alcohol Use History: None Reported Additional Past Alcohol Use History / Comment(s): quit smoking 2 years, smoked 1 ppd for over 50 years. vapes occasionally. Past Drug Use History: None Reported - Past Family History Sister(s) Family Medical History: Cancer Additional Family Medical History / Comment(s): Lung cancer. other sister heart failure Brother(s) Family Medical History: Cancer Additional Family Medical History / Comment(s): Lung cancer. Mother Family Medical History: Cancer, Fibromyalgia Additional Family Medical History / Comment(s): Drugs and alcohol - of what patient calls "septicemia" Father Family Medical History: Cancer, Coronary Artery Disease (CAD), Hyperlipidemia, Hypertension Additional Family Medical History / Comment(s): Skin cancer. Medications and Allergies Home Medications Medication Instructions Recorded Confirmed Type Levothyroxine Sodium [Synthroid] 25 mcg PO DAILY 08/15/16 02/23/24 History FLUoxetine HCL [PROzac] 40 mg PO DAILY 07/25/20 02/23/24 History Gabapentin [Neurontin] 300 mg PO BID 08/03/22 02/23/24 History Atorvastatin [Lipitor] 80 mg PO HS 04/04/23 02/23/24 History Gabapentin 600 mg PO BID 04/04/23 02/23/24 History carBAMazepine [carBAMazepine ER] 100 mg PO BID 04/04/23 02/23/24 History levETIRAcetam [Keppra] 750 mg PO BID 07/19/23 02/23/24 History Furosemide [Lasix] 40 mg PO BID@0900,1300 08/08/23 02/23/24 History Ferrous Sulfate [Iron (65 MG 325 mg PO DAILY 09/10/23 02/23/24 History Elemental)] traZODone HCL [Desyrel] 100 mg PO HS 09/10/23 02/23/24 History ALPRAZolam [Xanax] 0.25 mg PO DAILY 01/23/24 02/23/24 History Albuterol Inhaler [Ventolin Hfa 2 puff INHALATION RT-Q6H PRN 01/23/24 02/23/24 History Inhaler] HYDROcodone/APAP 7.5-325MG [[place] 1 tab PO BID 01/23/24 02/23/24 History 7.5-325] Aspirin 81 mg PO DAILY tab 01/31/24 02/23/24 Rx Clopidogrel [Plavix] 75 mg PO DAILY 02/23/24 02/23/24 History Allergies Allergy/AdvReac Type Severity Reaction Status Date / Time erythromycin base Allergy Rash/Hives Verified 02/23/24 14:23 Fish Containing Products Allergy Anaphylaxis Verified 02/23/24 14:23 Penicillins Allergy Anaphylaxis Verified 02/23/24 14:23 shellfish derived [Shellfish] Allergy Anaphylaxis Verified 02/23/24 14:23 levofloxacin [From Levaquin] AdvReac Rash/Hives, Verified 02/23/24 14:23 swelling Physical Exam Vitals: Vital Signs Temp Pulse Resp BP BP Pulse Ox 02/29/24 08:08 97.6 F 67 16 91/53 93 L 02/29/24 03:05 60 88/55 02/29/24 01:14 97.6 F 62 17 81/43 95 02/28/24 19:30 98.2 F 69 17 106/61 97 02/28/24 14:23 98 F 73 18 90/55 95 02/28/24 10:47 68 93/56 Intake and Output 02/28/24 02/29/24 02/29/24 22:59 06:59 14:59 Output Total 350 700 Balance -350 -700 Output: Urine 350 700 Other: Voiding Method External Catheter Results 02/29/24 02:55 02/29/24 02:55 Cardiac Enzymes 02/29/24 Range/Units 02:55 AST 37 H (13-35) U/L CBC 02/29/24 Range/Units 02:55 WBC 6.67 (4.50-10.00) X 10*3/uL RBC 3.07 L (4.10-5.20) X 10*6/uL Hgb 8.5 L (12.0-15.0) g/dL Hct 28.3 L (37.2-46.3) % Plt Count 380 (140-440) X 10*3/uL Comprehensive Metabolic Panel 02/29/24 Range/Units 02:55 Sodium 138 (135-145) mmol/L Potassium 3.4 L (3.5-5.5) mmol/L Chloride 104 (96-109) mmol/L Carbon Dioxide 24.6 (21.6-31.8) mmol/L BUN 7.9 L (9.0-27.0) mg/dL Creatinine 0.6 (0.6-1.5) mg/dL Glucose 112 H (70-110) mg/dL Calcium 8.2 L (8.7-10.3) mg/dL AST 37 H (13-35) U/L ALT 26 (8-44) U/L Alkaline Phosphatase 73 (41-126) U/L Total Protein 5.0 L (6.2-8.2) g/dL Albumin 3.0 L (3.8-4.9) g/dL Current Medications Generic Name Dose Route Start Last Admin Trade Name Freq PRN Reason Stop Dose Admin Acetaminophen 650 mg 02/23/24 14:39 02/25/24 17:33 Acetaminophen Tab 325 Mg Tab PO 650 mg Q6HR PRN Administration Mild Pain or Fever > 100.5 Hydrocodone Bitart/Acetaminophen 1 each 02/24/24 21:00 02/29/24 08:09 Hydrocodone/Apap 7.5-325mg 1 Each Tab PO 1 each BID RUTH Administration Albuterol Sulfate 2.5 mg 02/24/24 09:10 Albuterol Nebulized 2.5 Mg/3 Ml INHALATION RT-Q6H PRN Shortness Of Breath Alprazolam 0.25 mg 02/25/24 09:00 02/29/24 08:09 Alprazolam 0.25 Mg Tab PO 0.25 mg DAILY RUTH Administration Aspirin 81 mg 02/24/24 09:15 02/29/24 08:09 Aspirin 81 Mg PO 81 mg DAILY RUTH Administration Atorvastatin Calcium 80 mg 02/24/24 21:00 02/28/24 21:31 Atorvastatin 80 Mg Tab PO 80 mg HS RUTH Administration Carbamazepine 100 mg 02/24/24 21:00 02/29/24 08:10 Carbamazepine 100 Mg Tab.Er.12h PO 100 mg BID RUTH Administration Clopidogrel Bisulfate 75 mg 02/25/24 09:00 02/29/24 08:09 Clopidogrel 75 Mg Tab PO 75 mg DAILY RUTH Administration Dextrose/Water 25 ml 02/27/24 14:50 Dextrose 50% Syringe 50 Ml IVP PER PROTOCOL PRN Hypoglycemia Protocol Dextrose/Water 50 ml 02/27/24 14:50 Dextrose 50% Syringe 50 Ml IVP PER PROTOCOL PRN Hypoglycemia Protocol Enoxaparin Sodium 40 mg 02/28/24 14:30 02/29/24 08:10 Enoxaparin 40 Mg/0.4 Ml Syringe SQ 40 mg DAILY RUTH Administration Ferrous Sulfate 325 mg 02/25/24 09:00 02/29/24 08:09 Ferrous Sulfate 325 Mg Tab PO 325 mg DAILY RUTH Administration Fluoxetine HCl 40 mg 02/25/24 09:00 02/29/24 08:09 Fluoxetine Hcl 20 Mg Cap PO 40 mg DAILY RUTH Administration Folic Acid 1 mg 02/25/24 17:45 02/29/24 08:10 Folic Acid 1 Mg Tab PO 1 mg DAILY RUTH Administration Gabapentin 600 mg 02/24/24 21:00 02/29/24 08:09 Gabapentin 300 Mg Cap PO 600 mg BID RUTH Administration Gabapentin 300 mg 02/24/24 21:00 02/29/24 08:15 Gabapentin 300 Mg Cap PO 300 mg BID RUTH Administration Ceftriaxone Sodium 2 gm/ 50 mls @ 100 mls/hr 02/24/24 06:30 02/29/24 06:45 Sodium Chloride IVPB 100 mls/hr Q24H RUTH Administration Protocol Sodium Chloride 1,000 mls @ 75 mls/hr 02/28/24 11:00 02/29/24 02:31 Saline 0.9% IV Not Given .[id number] RUTH Insulin Aspart 0 unit 02/27/24 17:30 02/29/24 06:54 Insulin Aspart (Novolog) 100 Unit/Ml Vial SQ 2 unit ACHS RUTH Administration Protocol Levetiracetam 750 mg 02/24/24 21:00 02/29/24 08:10 Levetiracetam 750 Mg Tab PO 750 mg BID RUTH Administration Levothyroxine Sodium 25 mcg 02/25/24 06:30 02/29/24 06:45 Levothyroxine 25 Mcg Tab PO 25 mcg DAILY@0630 RUTH Administration Miscellaneous Information 1 each 02/24/24 19:22 Potassium Replacement Protocol 1 Each Misc MISCELLANE DAILY PRN Per Protocol Protocol Naloxone HCl 0.2 mg 02/23/24 14:39 Naloxone 0.4 Mg/Ml 1 Ml Vial IV Q2M PRN Opioid Reversal Ondansetron HCl 4 mg 02/28/24 21:12 02/28/24 21:31 Ondansetron 4 Mg/2 Ml Vial IVP 4 mg Q4HR PRN Administration Nausea And Vomiting Sodium Chloride 1 applic 02/27/24 10:01 Saline Nasal Gel 14.1 Gm Tube NASAL Q4HR PRN Dry Nasal Passages Trazodone HCl 100 mg 02/24/24 21:00 02/28/24 21:32 Trazodone Hcl 100 Mg Tab PO 100 mg HS RUTH Administration Intake and Output 02/28/24 02/29/24 02/29/24 22:59 06:59 14:59 Output Total 350 700 Balance -350 -700 Output: Urine 350 700 Other: Voiding Method External Catheter 02/29/24 02:55 02/29/24 02:55
[2024-02-29 16:47] LABS: Glucose,Whole Blood 104 mg/dL (70-110)
[2024-02-29 20:10] LABS: Glucose,Whole Blood 122 mg/dL (70-110)
[2024-02-29] MEDS: SALINE NASAL GEL 14.1 GM TUBE NASAL PRN (22:28)
[2024-03-01 03:47] LABS: % Iron Saturation 11.11 (12.00-45.00)
[2024-03-01 06:22] LABS: Glucose,Whole Blood 105 mg/dL (70-110)
[2024-03-01 08:31] LABS: Basophils # (A) 0.03 X 10*3/uL (0.00-0.10); Basophils % (A) 0.4 %; Eosinophils % (A) 2.5 %; HCT 28.5 % (37.2-46.3); HGB 8.6 g/dL (12.0-15.0); Lymphocytes % (A) 25.2 %; MCH 27.2 pg (27.0-32.0); MCHC 30.2 g/dL (32.0-37.0); MCV 90.2 FL (80.0-97.0); Monocytes # (A) 0.64 X 10*3/uL (0.20-1.00); Monocytes % (A) 8.1 %; NRBC Per 100 WBC 0 X 10*3/uL (0.00-0.01); Neutrophils # (A) 5.05 X 10*3/uL (1.80-7.70); Neutrophils % (A) 63.4 %; Platelet Count 400 X 10*3/uL (140-440); RBC 3.16 X 10*6/uL (4.10-5.20); RDW 16.4 % (11.5-14.5); WBC 7.95 X 10*3/uL (4.50-10.00)
[2024-03-01 08:45] LABS: ALT 24 U/L (8-44); AST 30 U/L (13-35); Albumin 2.8 g/dL (3.8-4.9); Albumin/Globulin Ratio 1.33 Ratio (1.60-3.17); Alkaline Phosphatase 72 U/L (41-126); BUN/Creat Ratio 13.83 Ratio (12.00-20.00); Blood Urea Nitrogen 8.3 mg/dL (9.0-27.0); Calcium 8.1 mg/dL (8.7-10.3); Carbon Dioxide 23.9 mmol/L (21.6-31.8); Chloride 104 mmol/L (96-109); Globulin 2.1 g/dL (1.6-3.3); Glucose 100 mg/dL (70-110); Potassium 3.8 mmol/L (3.5-5.5); Sodium 138 mmol/L (135-145); Total Bilirubin <0.2 mg/dL (0.3-1.2); Total Protein 4.9 g/dL (6.2-8.2)
--- NOTE | 2024-03-01 09:22 | P.PN ---
Subjective Progress Note Date: 03/01/24 Alexia Rubin, is a 74-year-old female who presented to [facility] emergency room with a chief complaint of generalized weakness and multiple falls, patient was recently hospitalized, and transferred to [facility] for rehabilitation, she was recently discharged home, however she continued to have severe weakness and multiple falls, she was brought back by her family to the emergency room for further evaluation and treatment and possible readmission to the [facility]. She was evaluated in the emergency room vital examination on presentation revealed a temperature of 97.8 pulse 70 respiration 18 blood pressure 94/69 pulse ox 99% on room air Laboratory data revealed a white blood count of 9.4 hemoglobin 9.2 platelet count 347 sodium 136 potassium 3.3 chloride 103 CO2 26 BUN 10 creatinine 0.62 lactic acid 1.5, urine analysis revealed evidence of urinary tract infection Testing in the emergency room revealed EKG done in the emergency room revealed sinus rhythm with occasional supraventricular premature complexes, x-ray of the left knee done in the emergency room revealed moderate left joint effusion, chest x-ray was done in the emergency room and revealed evidence for pulmonary edema. Patient was admitted to medical floor for further evaluation and treatment On 02/25/2024 patient's alert and oriented x 3. Repeat labs have been ordered. Carotid Doppler showing some stenosis will consult Dr. Espinal for vascular surgery. GI recommending outpatient follow-up with Dr. hall still awaiting neurology input. Current vital signs temp 97.8, heart rate 65, respiratory rate 15, blood pressure 105/51 with a pulse ox of 97% on 4 L On 02/26/2024 patient was seen and examined on the medical floor, she is alert and oriented x 3 in no apparent distress, she is complaining of shortness of breath with any activity otherwise she denies any complaints there is no fever or chills no headache or dizziness no chest pain she has occasional cough no nausea or vomiting no abdominal pain no diarrhea and no urinary symptoms, she remains on oxygen 4 L via nasal cannula, temperature is 98.0 pulse 69 respiration 19 blood pressure 126/50 pulse ox 93% on 4 L nasal cannula 02/27/2024 patient is alert and oriented 3. EEG and MRI has been ordered per neurology services. This time patient denies chest pain or shortness of breath. Patient denies nausea vomiting or diarrhea. Patient denies any urinary burning or frequency. Discharge planning to [facility] On 02/28/2024 patient was seen and examined on the medical floor she is alert and oriented in no apparent distress, there is no fever or chills no headache or dizziness no chest pain no shortness of breath no cough no nausea or vomiting no abdominal pain no diarrhea and no urinary symptoms blood pressure is low at 84/42, IV normal saline at 75 cc/h were added, cardiology consultation re quested, will follow closely. On 02/29/2024 patient is alert and oriented x 3. Awaiting cardiology input due to hypotension. Current vital signs temp 97.6, heart rate 60, blood pressure 88/55 with a pulse ox of 95% on 4 L patient denies chest pain or shortness of breath. Patient denies nausea vomiting or diarrhea. Patient denies any urinary burning or frequency On 03/01/2024 patient is alert and oriented x 3. EEG has been completed awaiting results. Per case management patient unlikely to be able to be DC'd to [facility] due to insurance. Current vital signs temp 98.0, heart rate 55, respiratory rate 17, blood pressure 118/64 with a pulse ox of 95% on 4 L patient denies chest pain or shortness of breath. Patient denies nausea vomiting or diarrhea. Patient denies any urinary burning or frequency Objective - Vital Signs Vital signs: Vital Signs Temp 98.0 F 03/01/24 07:25 Pulse 55 L 03/01/24 07:25 Resp 17 03/01/24 07:25 BP 119/64 03/01/24 07:25 Pulse Ox 95 03/01/24 07:25 FiO2 Intake & Output 02/29/24 03/01/24 03/01/24 18:59 06:59 18:59 Intake Total 150 540 Output Total 300 250 Balance -150 290 Intake: Oral 150 540 Output: Urine 300 250 Other: Voiding Method External Catheter External Catheter # Voids 2 4 - Exam In general patient is alert and oriented x 3 in no distress HEENT head normocephalic and atraumatic Neck is supple no JVD no goiter no lymphadenopathy no carotid bruit Chest examination is clear to auscultation no crackles no wheezing Cardiac exam reveals regular heart sounds S1 and S2 no gallops no murmurs Abdomen is soft nontender no organomegaly with normal bowel sounds Extremity exam reveals no edema no cyanosis or clubbing Neurological examination reveals no gross focal deficits - Labs CBC & Chem 7: 03/01/24 02:39 03/01/24 02:39 Labs: Abnormal Lab Results - Last 24 Hours (Table) 02/29/24 02/29/24 02/29/24 Range/Units 12:00 15:35 20:08 RBC (4.10-5.20) X 10*6/uL Hgb (12.0-15.0) g/dL Hct (37.2-46.3) % MCHC (32.0-37.0) g/dL RDW (11.5-14.5) % BUN (9.0-27.0) mg/dL POC Glucose (mg/dL) 121 H 122 H (70-110) mg/dL Calcium (8.7-10.3) mg/dL Iron 25 L (50-170) UG/DL TIBC 225 L (228-460) UG/DL % Saturation 11.11 L (12.00-45.00) Transferrin 161.0 L (204.0-354.0) mg/dL Total Bilirubin (0.3-1.2) mg/dL Total Protein (6.2-8.2) g/dL Albumin (3.8-4.9) g/dL Albumin/Globulin Ratio (1.60-3.17) Ratio 03/01/24 03/01/24 Range/Units 02:39 02:39 RBC 3.16 L (4.10-5.20) X 10*6/uL Hgb 8.6 L (12.0-15.0) g/dL Hct 28.5 L (37.2-46.3) % MCHC 30.2 L (32.0-37.0) g/dL RDW 16.4 H (11.5-14.5) % BUN 8.3 L (9.0-27.0) mg/dL POC Glucose (mg/dL) (70-110) mg/dL Calcium 8.1 L (8.7-10.3) mg/dL Iron (50-170) UG/DL TIBC (228-460) UG/DL % Saturation (12.00-45.00) Transferrin (204.0-354.0) mg/dL Total Bilirubin <0.2 L (0.3-1.2) mg/dL Total Protein 4.9 L (6.2-8.2) g/dL Albumin 2.8 L (3.8-4.9) g/dL Albumin/Globulin Ratio 1.33 L (1.60-3.17) Ratio Assessment and Plan Plan: Generalized weakness with multiple falls Anemia, will check stools for Hemoccult, check iron vitamin B12 and folate level, consult gastroenterology for GI workup Urinary tract infection Underlying history of hypertension Underlying history of hyperlipidemia Underlying history of hypothyroidism Underlying history of seizure activity maintained on Keppra Underlying history of depression with anxiety disorder Chest x-ray revealing pulmonary edema, will check BNP and echocardiogram At this time patient is admitted to medical floor Home medications reviewed and reordered Neurology consultation requested Consultation for gastroenterology and neurology initiated Will check echocardiogram For DVT prophylaxis subcu Lovenox Will follow closely
[2024-03-01 10:36] LABS: Glucose,Whole Blood 133 mg/dL (70-110)
[2024-03-01 11:53] LABS: Glucose,Whole Blood 106 mg/dL (70-110)
--- NOTE | 2024-03-01 12:22 | P.PN ---
Subjective Progress Note Date: 03/01/24 I was asked to evaluate this patient regarding her abnormal CAT scan of the chest. The patient is known to me. She follows up with my partner in the office. She has history of chronic pulmonary fibrosis. She was also history of anal cancer and she was noted to have a right lower lobe subpleural opacity that showed some limited activity on the previous PET scan. There was concern for malignancy. I was approached the biopsy this abnormality. Nevertheless, the findings on the CAT scan were quite nonspecific and we decided to monitor and continue surveillance with another CAT scan of the chest and a PET/CT. Noted the patient underwent a follow-up CAT scan of the chest on 01/26/2024. That time, the patient was noted to have a moderate-sized right-sided pleural effusion. Chronic fibrotic changes bilaterally. The right lower lobe subpleural opacity was still present and there was note of right hilar and similar mediastinal lymphadenopathy. At that point, the patient was given a thoracentesis of the right lung. This was done during her hospital stay and the pleural fluid that was drained turned out to be an exudate with negative cytology. The procedure was done without any complications. A total of 1 L of dark yellowish fluid was aspirated and the fluid cytology was negative for malignancy. No subsequent pneumothorax. In any rate, the patient was supposed to have a PET/CT and this is scheduled to be done on 02/27/2024. Meanwhile, the patient gets hospitalized again with fall. She felt very weak and she landed on her knees bilaterally. She has undergone previous bilateral knee replacements. No reported fractures. No focal neurological deficits. She has carotid Dopp lers that reported occlusion in the right ICA and moderate disease in the left ICA. Vascular surgery has been consulted regarding carotid artery stenosis. Along with pulmonary fibrosis, she has diabetes mellitus, hyperlipidemia, squamous cell anal cancer and anemia of chronic disease. She is oxygen dependent and currently she is on oxygen at 4 L nasal cannula. The white cell count is at 10.2 with a hemoglobin of 10.3 and a platelet count of 318. Sodium levels at 134, BUN is 11 with a creatinine of 0.6. No cough. No sputum production. No chest tightness. No wheezing. Repeat chest x-ray that was done during this current admission shows chronic fibrotic changes bilaterally without any evidence of fluid recurrence. Her previous echocardiogram done on 01/25/2024 showed a preserved LV function, mild to moderate mitral regurgitation and moderate mitral stenosis and moderate degree of pulmonary hypertension with tricuspid regurgitation. The CAT scan of the brain done on 02/25/2024 showed no acute intracranial process in the remote included injury with nonspecific white matter changes and chronic microangiopathy. On 02/26/2024, the patient is being seen for a follow-up. No new complaints. The patient was seen by neurology. Unable to do MRI of the brain as the patient has a pain stimulator. EEG was ordered. Essentially The Same Medications. White Cell Count Is at 8.9, Hemoglobin 9.6, Platelet Count of 402. Electrolytes Are All within Normal Limits. On 02/27/2024, seen the patient for a follow-up. No respiratory difficulties. She continues to have generalized weakness. Alert oriented x 3. MRI of the brain and EEG is also ordered by neurology. Labs are stable. Hemoglobin is at 9.6, the white cell count is at 8.9, electrolytes are all within normal limits. Normal LFTs. The patient is seen today February 28, 2024 in follow-up on the regular medical floor. She is currently resting in bed. Awake and alert in no acute distress. Maintaining good O2 saturation in the mid 90s on 4 L/min per nasal cannula. She is afebrile. Urine culture revealed no growth. White count 6.6. Hemoglobin 9.1. Platelets 381. Sodium 138. Potassium 3.7. Bicarb 24. BUN 9. Creatinine 0.7. Glucose 102. She is currently on ceftriaxone. Normal saline at 75 mL/h. The patient is seen today February 29, 2024 in follow-up on the regular medical floor. She is sitting up in bed. Awake and alert in no acute distress. O2 saturations in the 90s on 4 L/min per nasal cannula. She is afebrile. Culture revealed no growth. White count 6.6. Hemoglobin 8.5. Platelets 380. Sodium 138. Potassium 3.4. Bicarb 25. BUN 8. Creatinine 0.6. Troponin negative. Procalcitonin negative at 0.07. Rocephin discontinued. She remains on Lovenox for DVT prophylaxis. Normal saline at 75 mL/h. The patient is seen today March 01, 2024 in follow-up on the regular medical floor. She is currently resting in bed. Awake and alert in no acute distress. She is maintaining good O2 saturations in the 90s on 4 L/min per nasal cannula. She has normal saline at 75 mL/h. Lovenox for DVT prophylaxis. White count 7.9. Hemoglobin 8.6. Platelets 400. Sodium 138. Potassium 3.8. Bicarb 24. BUN 8. Creatinine 0.6. Glucose 100. Objective - Vital Signs Vital signs: Vital Signs Temp 98.0 F 03/01/24 07:25 Pulse 55 L 03/01/24 07:25 Resp 17 03/01/24 07:25 BP 119/64 03/01/24 07:25 Pulse Ox 95 03/01/24 07:25 FiO2 Intake & Output 02/29/24 03/01/24 03/01/24 18:59 06:59 18:59 Intake Total 150 540 Output Total 300 250 Balance -150 290 Intake: Oral 150 540 Output: Urine 300 250 Other: Voiding Method External Catheter External Catheter # Voids 2 4 - Exam GENERAL EXAM: Alert, 74-year-old female, on 4 L nasal cannula, in no apparent distress. HEAD: Normocephalic. EYES: Normal reaction of pupils, equal size. NOSE: Clear with pink turbinates. THROAT: No erythema or exudates. NECK: No masses, no JVD. CHEST: No chest wall deformity. LUNGS: Equal air entry with scattered rhonchi, crackles in the right lung base. CVS: S1 and S2 normal with no audible murmur, regular rhythm. ABDOMEN: No hepatosplenomegaly, normal bowel sounds, no guarding or rigidity. SPINE: No scoliosis or deformity SKIN: No rashes CENTRAL NERVOUS SYSTEM: No focal deficits, tone is normal in all 4 extremities. EXTREMITIES: Transmetatarsal amputation on the right foot. There is no peripheral edema. No clubbing, no cyanosis. Peripheral pulses are intact. - Labs CBC & Chem 7: 03/01/24 02:39 03/01/24 02:39 Labs: Abnormal Lab Results - Last 24 Hours (Table) 02/29/24 02/29/24 03/01/24 Range/Units 15:35 20:08 02:39 RBC 3.16 L (4.10-5.20) X 10*6/uL Hgb 8.6 L (12.0-15.0) g/dL Hct 28.5 L (37.2-46.3) % MCHC 30.2 L (32.0-37.0) g/dL RDW 16.4 H (11.5-14.5) % BUN (9.0-27.0) mg/dL POC Glucose (mg/dL) 122 H (70-110) mg/dL Calcium (8.7-10.3) mg/dL Iron 25 L (50-170) UG/DL TIBC 225 L (228-460) UG/DL % Saturation 11.11 L (12.00-45.00) Transferrin 161.0 L (204.0-354.0) mg/dL Total Bilirubin (0.3-1.2) mg/dL Total Protein (6.2-8.2) g/dL Albumin (3.8-4.9) g/dL Albumin/Globulin Ratio (1.60-3.17) Ratio 03/01/24 03/01/24 Range/Units 02:39 10:34 RBC (4.10-5.20) X 10*6/uL Hgb (12.0-15.0) g/dL Hct (37.2-46.3) % MCHC (32.0-37.0) g/dL RDW (11.5-14.5) % BUN 8.3 L (9.0-27.0) mg/dL POC Glucose (mg/dL) 133 H (70-110) mg/dL Calcium 8.1 L (8.7-10.3) mg/dL Iron (50-170) UG/DL TIBC (228-460) UG/DL % Saturation (12.00-45.00) Transferrin (204.0-354.0) mg/dL Total Bilirubin <0.2 L (0.3-1.2) mg/dL Total Protein 4.9 L (6.2-8.2) g/dL Albumin 2.8 L (3.8-4.9) g/dL Albumin/Globulin Ratio 1.33 L (1.60-3.17) Ratio Assessment and Plan Assessment: Acute on chronic hypoxemic respiratory failure secondary to chronic pulmonary fibrosis, currently on 4 L of oxygen by nasal cannula. 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 Right lower lobe posterior subpleural pulmonary opacity with limited uptake on a previous PET/CT that was done in August 2023. Awaiting a follow-up PET/CT on 02/27/2024. Noted the patient also has some nonspecific right hilar than mediastinal lymphadenopathy that is being monitored. The patient has a 3 cm masslike consolidative density in the right lower lobe being followed in the outpatient setting. A PET scan from August 19, 2023 revealed right lower lobe pulmonary nodule with increased metabolic activity compatible with malignancy. There is at least 1 right pulmonary hilum lymph node suspicious for metastatic disease. Extensive interstitial opacities along suspicious for ILD. CT scan of the chest was done yesterday 10/08/2023 that revealed similar pleural-based mass of the right lower lobe which is essentially unchanged in overall size and appearance. Possible minimal early cavitation. Pulmonary fibrosis at least moderate in degree. Plan is for follow-up PET scan Chronic hypoxic respiratory failure, currently on 4 L History of anal cancer. Treated with chemotherapy and radiation therapy Right-sided pleural effusion, exudate, post thoracentesis January 28 2024 without any recurrence. A total of 1 L of fluid was aspirated Valvular heart disease with mild to moderate mitral stenosis moderate degree of pulmonary hypertension based on most recent echocardiogram. Patient has preserved LV function History of CVA/TIA x 3 with evidence of carotid artery disease with left-sided stenosis in the order of 50 to 69% Obstructive sleep apnea, no CPAP therapy for now Peripheral vascular disease, and the patient has undergone previous right fem- tib bypass and the patient has previous right toe amputations Nephrolithiasis Diabetes mellitus type 2 Hyperlipidemia Hypothyroidism Former smoker Generalized weakness and frequent falls without any fracture Plan: The patient was seen and evaluated Labs and medications reviewed Stable and on 4 L nasal cannula Cleared for discharge Will need outpatient PET scan Discharge planning in place I have personally seen and examined the patient, performed the documentation and the assessment and plan as written. Number of minutes spent on the visit: 10 Dictation was produced using [employer] software. Please excuse any grammatical, word or spelling errors.
--- NOTE | 2024-03-01 14:21 | P.PN ---
Subjective Progress Note Date: 03/01/24 Reason for Consult (text): Hypotension History of present illness: This is a 74-year-old female patient previously seen by Dr. Genao in the office in 2021 with past medical history of PAD with previous right fem-tib bypass and amputation of the right toes, valvular heart disease, diabetes mellitus type 2, dyslipidemia, COPD, chronic pulmonary fibrosis, chronic hypoxic respiratory failure on home O2 at 4 L, obstructive sleep apnea, TIA, chronic anemia, history of squamous cell anal cancer with current lung mass that has not been worked up, tobacco use and dependence. We have been asked to evaluate the patient for hypotension. Patient apparently recently left the group home and presented to the hospital after she had a fall when her daughter was moving her to a wheelchair and injured her knees. Patient was admitted to the hospital on 02/22. Patient has multiple consultants in place including GI, vascular surgery, pulmonary medicine, neurology. Patient denies any shortness of breath at this time and no chest pain. Blood pressures have been on the soft side most systolic blood pressures are in the 80s up to 91. She is currently on IV fluids at 75 cc/h. Heart rate is in the 60s, pulse ox 93% on 4 L nasal cannula. EKG: Sinus rhythm with nonspecific ST changes Chest x-ray: 02/22: Correlate for pulmonary edema Laboratory studies: WBC 6.6, hemoglobin 8.5. Sodium 138, potassium 3.4, creatinine 0.6. Home cardiac medications: Aspirin 81 mg daily, Lipitor 80 mg at bedtime, Plavix 75 mg daily, Lasix 40 mg twice daily, also on levothyroxine 25 mcg daily Echocardiogram performed 01/24/2024 reveals EF of 55 to 60%, mild and regur gitation, mild to moderate mitral regurgitation with moderate mitral stenosis, moderate tricuspid regurgitation and moderate pulmonary hypertension Lexiscan Cardiolite stress test performed 05/13/2020 revealed EF of 61%, normal test 03/01/24 Patient seen and examined. Blood pressure running between 94/60 and 119/64, heart rate 55, pulse ox 95% on 4 L. Troponins were negative x 3 draws. Repeat blood work reveals hemoglobin 8.6. Creatinine 0.6. Patient states that her breathing is better today. She denies any dizziness. She states she sometimes has lightheadedness. Regarding low blood pressure readings, patient states that his has been going on for a year now. Physical examination: Gen: This is a 74-year-old female in no acute distress VS: reviewed HEENT: Head is atraumatic, normocephalic. Pupils equal, round. Sclerae is anicteric. NECK: Supple. No JVD. LUNGS: Clear to auscultation. No wheezes or rhonchi. No intercostal retractions. HEART: Regular rate and rhythm. No murmur. ABDOMEN: Soft No tenderness. EXTREMITIES: No pedal edema. No calf tenderness. NEUROLOGICAL: Patient is awake, alert and oriented x3. Assessment: Hypotension Generalized weakness PAD with previous right fem-tib bypass and amputation of the right toes Valvular heart disease with mild to moderate MR, moderate MS, moderate TR, mild and AR Moderate pulmonary hypertension Diabetes mellitus type 2 Dyslipidemia COPD Chronic pulmonary fibrosis Chronic hypoxic respiratory failure on home O2 at 4 L Obstructive sleep apnea not on CPAP TIAs multiple Chronic anemia History of squamous cell anal cancer Lung mass History of tobacco use and dependence, recently quit Right ICA occlusion, severe left carotid bulb stenosis with 50 to 69% Plan: Continue patient's home cardiac medications Note that patient is not on Lasix No need to repeat echocardiogram as this was done in January Patient is cleared for discharge from cardiology May follow-up in the office with Dr. Genao in 1 to 2 weeks. Cardiology will sign off this case and follow on an as-needed basis. Please reconsult for any new concerns. Patient may follow-up in the office in one to 2 weeks. Nurse practitioner note has been reviewed, I agree with documented findings and plan of care. Patient was seen and examined. Objective - Vital Signs Vital signs: Vital Signs Temp 98.0 F 03/01/24 07:25 Pulse 55 L 03/01/24 07:25 Resp 17 03/01/24 07:25 BP 119/64 03/01/24 07:25 Pulse Ox 95 03/01/24 07:25 FiO2 Intake & Output 02/29/24 03/01/24 03/01/24 18:59 06:59 18:59 Intake Total 150 540 Output Total 300 250 Balance -150 290 Intake: Oral 150 540 Output: Urine 300 250 Other: Voiding Method External Catheter External Catheter # Voids 2 4 - Labs CBC & Chem 7: 03/01/24 02:39 03/01/24 02:39 Labs: Abnormal Lab Results - Last 24 Hours (Table) 02/29/24 02/29/24 02/29/24 Range/Units 12:00 15:35 20:08 RBC (4.10-5.20) X 10*6/uL Hgb (12.0-15.0) g/dL Hct (37.2-46.3) % MCHC (32.0-37.0) g/dL RDW (11.5-14.5) % BUN (9.0-27.0) mg/dL POC Glucose (mg/dL) 121 H 122 H (70-110) mg/dL Calcium (8.7-10.3) mg/dL Iron 25 L (50-170) UG/DL TIBC 225 L (228-460) UG/DL % Saturation 11.11 L (12.00-45.00) Transferrin 161.0 L (204.0-354.0) mg/dL Total Bilirubin (0.3-1.2) mg/dL Total Protein (6.2-8.2) g/dL Albumin (3.8-4.9) g/dL Albumin/Globulin Ratio (1.60-3.17) Ratio 03/01/24 03/01/24 03/01/24 Range/Units 02:39 02:39 10:34 RBC 3.16 L (4.10-5.20) X 10*6/uL Hgb 8.6 L (12.0-15.0) g/dL Hct 28.5 L (37.2-46.3) % MCHC 30.2 L (32.0-37.0) g/dL RDW 16.4 H (11.5-14.5) % BUN 8.3 L (9.0-27.0) mg/dL POC Glucose (mg/dL) 133 H (70-110) mg/dL Calcium 8.1 L (8.7-10.3) mg/dL Iron (50-170) UG/DL TIBC (228-460) UG/DL % Saturation (12.00-45.00) Transferrin (204.0-354.0) mg/dL Total Bilirubin <0.2 L (0.3-1.2) mg/dL Total Protein 4.9 L (6.2-8.2) g/dL Albumin 2.8 L (3.8-4.9) g/dL Albumin/Globulin Ratio 1.33 L (1.60-3.17) Ratio
[2024-03-01 16:34] LABS: Glucose,Whole Blood 104 mg/dL (70-110)
[2024-03-01] MEDS: MIDODRINE 5 MG TAB PO SCH (17:09)
[2024-03-01 19:43] LABS: Glucose,Whole Blood 104 mg/dL (70-110)
[2024-03-02 06:20] LABS: Glucose,Whole Blood 110 mg/dL (70-110)
[2024-03-02] MEDS: FUROSEMIDE 10 MG/ML 2 ML VIAL IV ONE (10:04)
[2024-03-02] MEDS: FUROSEMIDE 10 MG/ML 4 ML VIAL IV STA (10:16)
--- NOTE | 2024-03-02 10:35 | P.CONS ---
History of Present Illness - Reason for Consult Consult date: 03/02/24 Evaluate for rehabilitation needs. - Chief Complaint Generalized weakness and multiple falls - History of Present Illness Patient is a 74 year old, right handed, , who lives alone in a first level apartment, with 0 STFD. Prior to admission, pt was using a wheelchair and able to self transfer until prior to hospitalization. Pt was independent for basic/advanced ADLs. Current driving: no. Transportation by: son. Support system: daughter and son both came to assist 2 times per week. Alexia Rubin presented to [facility] emergency room with a chief complaint of generalized weakness and multiple falls, patient was recently hospitalized, and transferred to [facility] for rehabilitation, she was recently discharged home, however, she continued to have severe weakness and multiple falls, she was brought back by her family to the emergency room for further evaluation and treatment and possible read[place] the [place] [facility]. She was evaluated in the emergency room and urine analysis revealed evidence of urinary tract infection, EKG done in the emergency room revealed sinus rhythm with occasional supraventricular premature complexes, x-ray of the left knee done in the emergency room revealed moderate left joint effusion, chest x-ray was done in the emergency room and revealed evidence for pulmonary edema. Patient was admitted to medical floor for further evaluation and treatment. Per records, carotid doppler showed some stenosis and EEG was completed. PMR consulted to evaluate rehabilitation needs post discharge. Therapy progress reviewed and patient needing bed mobility Shiv, transfers modA, bathing modA, UB dress Shiv, LB dress total assist. Subjective: 03/02/24: Patient seen and examined resting in bed. Patient reports she was not able to ambulate but was able to transfer herself at wheelchair level prior to arrival to hospital, however, due to her increasing weakness she was no longer able to do so independently. While her daughter was helping her to transfer into bed at home, she fell onto her knees, which led to her arrival to [facility]. Patient denies current chest pain or abdominal torres. LBM today. Reports SOB on 6L NC, per patient, normally wears 2L NC at home. Review of Systems As above in subjective. 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 ,States yeast infection in genital area and folds of abd., diet controlled diabetes., has stimulator left hip for back pain (not working)., PAD. Recent diagosis of lung cancer History of Any Multi-Drug Resistant Organisms: None Reported Past Surgical History: Appendectomy, Back Surgery, Bladder Surgery, Cholecystect cole, Hysterectomy, Joint Replacement Additional Past Surgical History / Comment(s): Bilateral knee replacements, right shoulder rotator cuff X2, bilateral iliac femoral stents, bladder suspension X2, right Mediport removed, left lung biopsy, lymph node biopsy, left groin biopsy(malignant). bilateral carpal tunnel, bilateral cataracts, right shoulder replacement. stimulator in hip (left) for back, bilateral iliac arterial stents., R femoral stent Past Anesthesia/Blood Transfusion Reactions: No Reported Reaction, Family History of Problems w/ Anesthesia Additional Past Anesthesia/Blood Transfusion Reaction / Comm: Claustrophobic., vomited and aspirated during colonoscopy. son had difficulty waking up after surgery Past Psychological History: Anxiety, Depression Smoking Status: Former smoker Past Alcohol Use History: None Reported Additional Past Alcohol Use History / Comment(s): quit smoking 2 years, smoked 1 ppd for over 50 years. vapes occasionally. Past Drug Use History: None Reported - Past Family History Sister(s) Family Medical History: Cancer Additional Family Medical History / Comment(s): Lung cancer. other sister heart failure Brother(s) Family Medical History: Cancer Additional Family Medical History / Comment(s): Lung cancer. Mother Family Medical History: Cancer, Fibromyalgia Additional Family Medical History / Comment(s): Drugs and alcohol - of what patient calls "septicemia" Father Family Medical History: Cancer, Coronary Artery Disease (CAD), Hyperlipidemia, Hypertension Additional Family Medical History / Comment(s): Skin cancer. Medications and Allergies Home Medications Medication Instructions Recorded Confirmed Type Levothyroxine Sodium [Synthroid] 25 mcg PO DAILY 08/15/16 02/23/24 History FLUoxetine HCL [PROzac] 40 mg PO DAILY 07/25/20 02/23/24 History Gabapentin [Neurontin] 300 mg PO BID 08/03/22 02/23/24 History Atorvastatin [Lipitor] 80 mg PO HS 04/04/23 02/23/24 History Gabapentin 600 mg PO BID 04/04/23 02/23/24 History carBAMazepine [carBAMazepine ER] 100 mg PO BID 04/04/23 02/23/24 History levETIRAcetam [Keppra] 750 mg PO BID 07/19/23 02/23/24 History Furosemide [Lasix] 40 mg PO BID@0900,1300 08/08/23 02/23/24 History Ferrous Sulfate [Iron (65 MG 325 mg PO DAILY 09/10/23 02/23/24 History Elemental)] traZODone HCL [Desyrel] 100 mg PO HS 09/10/23 02/23/24 History ALPRAZolam [Xanax] 0.25 mg PO DAILY 01/23/24 02/23/24 History Albuterol Inhaler [Ventolin Hfa 2 puff INHALATION RT-Q6H PRN 01/23/24 02/23/24 History Inhaler] HYDROcodone/APAP 7.5-325MG [Crawford 1 tab PO BID 01/23/24 02/23/24 History 7.5-325] Aspirin 81 mg PO DAILY tab 01/31/24 02/23/24 Rx Clopidogrel [Plavix] 75 mg PO DAILY 02/23/24 02/23/24 History Allergies Allergy/AdvReac Type Severity Reaction Status Date / Time erythromycin base Allergy Rash/Hives Verified 02/23/24 14:23 Fish Containing Products Allergy Anaphylaxis Verified 02/23/24 14:23 Penicillins Allergy Anaphylaxis Verified 02/23/24 14:23 shellfish derived [Shellfish] Allergy Anaphylaxis Verified 02/23/24 14:23 levofloxacin [From Levaquin] AdvReac Rash/Hives, Verified 02/23/24 14:23 swelling Physical Exam Vitals: Vital Signs Temp Pulse Resp BP BP Pulse Ox 03/02/24 06:47 97.8 F 82 18 132/74 95 03/02/24 00:30 99.0 F 73 20 100/64 94 L 03/01/24 18:55 98.3 F 84 18 136/71 95 03/01/24 13:33 71 20 95/57 99 Intake and Output 03/01/24 03/02/24 03/02/24 22:59 06:59 14:59 Intake Total 450 1080 Output Total 450 650 Balance 0 430 Intake: Oral 450 1080 Output: Urine 450 650 Other: Voiding Method External Catheter General: Well-developed, well-nourished, elderly female resting in bed HEENT: head normocephalic, atraumatic; hearing intact to conversational speech Cardiovascular: B/L calves are supple, nontender, no cords, + BLLE edema, no cardiac distress Respiratory: +labored breathing on 6L NC, with abdominal breathing Abdomen: Soft, nontender, nondistended Genitourinary: purewick in use Musculoskeletal: ROM WFL EXCEPT: decreased ROM WE bilaterally; decreased ROM right foot/transmetatarsal amputation on the right foot. MMT UE B/L SABD 5, B/L FABD/HG/EE/EF 4/5 MMT LE B/L HF 4/5, B/L KE 5/5, L DF 5/5 Skin: Skin intact where visible to head, neck, and bilateral upper and lower extremities, EXCEPT: IV, healed surgical scars to bilateral knees Neurological: Alert and conversational CN II-XII: Grossly intact. Speech is clear, fluent Sensation: intact to light touch bilateral UE and LEs Psychiatric: Mood calm, affect appropriate, cooperative. Results CBC & Chem 7: 03/01/24 02:39 03/01/24 02:39 Labs: Abnormal Lab Results - Last 24 Hours (Table) 03/01/24 Range/Units 10:34 POC Glucose (mg/dL) 133 H (70-110) mg/dL Assessment and Plan Assessment: #Impaired gait and ADLS secondary to acute on chronic hypoxemic respiratory failure secondary to chronic pulmonary fibrosis -Comprehensive therapies -Currently on 6 L of oxygen by nasal cannula, patient wears 2L at home at baseline #Generalized weakness with multiple falls #Anemia #Urinary tract infection #History of seizure activity -on Keppra #History of depression with anxiety disorder -Xanax; Trazodone #History of CVA/TIA #History of anal cancer -Per records, treated with chemotherapy and radiation therapy; pending new PET scan #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 -03/02: LBM today #Diet #Skin/wound: Skin/Wound care to follow as needed. #Pain Management: -Acetaminophen 650mg Q6H prn; Neurontin BID; Crawford 7.5/325 BID DVT Prophylaxis: -Lovenox SQ per MAR Your medical dx and mgt Comorbidities: HTN, hyperlipidemia, hypothyroidism Goals: Modified Independent mobility and ADLS both basic and advanced; increased functional mobility/strength; increased balance, safety, endurance. Improvement in medical issues through your care. Barriers: fall risk, oxygen therapy Discharge recommendation: Patient performing below baseline level of function. Pending medical clearance, would recommend RAFY as patient is unable to tolerate 3 hours of therapy per day on IPR. Would not recommend home alone at this time. Patient seen and examined in collaboration with Dafne Bello PA-C and in coordination with Dr Jaramillo. Thank you for this consultation.
[2024-03-02] MEDS: SODIUM FERRIC GLUCONAT-SUCROSE 125 MG in SODIUM CHLORIDE 0.9% 100 ML IVPB ONE (10:50)
--- NOTE | 2024-03-02 11:12 | P.PN ---
Subjective Progress Note Date: 03/01/24 Patient initially seen by Dr. Charlie Irving. Please refer to his note for details. Patient is a 74-year-old female with recurrent falls. Patient was seen for a follow-up. Patient at present is laying in the bed. States she is feeling like getting cold, cannot get warm. She is have multiple covers on. Denies any focal symptoms. Objective - Vital Signs Vital signs: Vital Signs Temp 98.3 F 03/01/24 18:55 Pulse 84 03/01/24 18:55 Resp 18 03/01/24 18:55 BP 136/71 03/01/24 18:55 Pulse Ox 95 03/01/24 18:55 FiO2 Intake & Output 03/01/24 03/01/24 03/02/24 06:59 18:59 06:59 Intake Total 540 Output Total 250 450 Balance 290 -450 Intake: Oral 540 Output: Urine 250 450 Other: Voiding Method External Catheter # Voids 4 - Exam Patient is alert and awake, fully oriented. Patient knows it is February 2024 and that she is in [facility] in [facility] and name of the current president Mr. Luz. Her cranial nerves are normal. Visual valentin are full, face is symmetric. Muscle strength is normal in arms and legs. - Labs CBC & Chem 7: 03/03/24 03:45 03/04/24 06:27 Labs: Abnormal Lab Results - Last 24 Hours (Table) 02/29/24 03/01/24 03/01/24 Range/Units 15:35 02:39 02:39 RBC 3.16 L (4.10-5.20) X 10*6/uL Hgb 8.6 L (12.0-15.0) g/dL Hct 28.5 L (37.2-46.3) % MCHC 30.2 L (32.0-37.0) g/dL RDW 16.4 H (11.5-14.5) % BUN 8.3 L (9.0-27.0) mg/dL POC Glucose (mg/dL) (70-110) mg/dL Calcium 8.1 L (8.7-10.3) mg/dL Iron 25 L (50-170) UG/DL TIBC 225 L (228-460) UG/DL % Saturation 11.11 L (12.00-45.00) Transferrin 161.0 L (204.0-354.0) mg/dL Total Bilirubin <0.2 L (0.3-1.2) mg/dL Total Protein 4.9 L (6.2-8.2) g/dL Albumin 2.8 L (3.8-4.9) g/dL Albumin/Globulin Ratio 1.33 L (1.60-3.17) Ratio 03/01/ Range/Units 10:34 RBC (4.10-5.20) X 10*6/uL Hgb (12.0-15.0) g/dL Hct (37.2-46.3) % MCHC (32.0-37.0) g/dL RDW (11.5-14.5) % BUN (9.0-27.0) mg/dL POC Glucose (mg/dL) 133 H (70-110) mg/dL Calcium (8.7-10.3) mg/dL Iron (50-170) UG/DL TIBC (228-460) UG/DL % Saturation (12.00-45.00) Transferrin (204.0-354.0) mg/dL Total Bilirubin (0.3-1.2) mg/dL Total Protein (6.2-8.2) g/dL Albumin (3.8-4.9) g/dL Albumin/Globulin Ratio (1.60-3.17) Ratio Assessment and Plan Assessment: This is a 74-year-old woman with history of intermittent recurrent generalized weakness for the last 6 months with fall, recurrent UTI, diarrhea. She also has diabetes mellitus, neuropathy and has tremor in the left side and had extensive neurological workup in the past. Recurrent falls without LOC with generalized weakness seems to be due to multifactorial due to her recurrent urinary tract infection, diarrhea. Because has folate deficiency with severely low normal vitamin B12 as probable peripheral neuropathy which can exacerbate her symptoms. CT head is negative for acute process but has old lacunar stroke. Severely low normal vitamin B12 of 211 Folate deficiency Probable acute urinary tract infection Recurrent Urinary tract infection Tremor over the left upper and lower extremity and had extensive workup at [facility] and follows up with a neurologist locally and she is on Keppra and Tegretol but stated that her EEG and workup in the past was negative and will dose medication it was improving until in the past couple months is worsening. Diabetes mellitus Neuropathy Plan: Unable to obtain MRI since she has a pain stimulator Orthostatic vitals EEG was normal awake and drowsy. No focal, lateralized or epileptiform activity was seen. No indication for antiepileptic medication. Regarding her folate deficient Dr. Irving started the patient on folic acid 1 mg daily. Regarding her severely low normal vitamin B12 patient on vitamin B12 1000 mcg IM for 3 days and after that recommend to be on it p.o. daily. Patient is on aspirin 81 mg, Plavix 75 mg. She is on Lipitor 80 mg nightly. Patient is on home medication of Tegretol 100 mg twice daily as well as Keppra 750 mg twice daily that was started by neurology team over [facility] for tremor over the left side and she stated there is improvement. Will defer the rest of the medical management to primary and other specialist Recommend the patient to follow-up with neurologist as outpatient within 2-3 weeks (she sees Dr. Hawkins). Awaiting placement.
[2024-03-02 11:48] LABS: Glucose,Whole Blood 136 mg/dL (70-110)
--- NOTE | 2024-03-02 13:22 | P.PN ---
Subjective Progress Note Date: 03/02/24 I was asked to evaluate this patient regarding her abnormal CAT scan of the chest. The patient is known to me. She follows up with my partner in the office. She has history of chronic pulmonary fibrosis. She was also history of anal cancer and she was noted to have a right lower lobe subpleural opacity that showed some limited activity on the previous PET scan. There was concern for malignancy. I was approached the biopsy this abnormality. Nevertheless, the findings on the CAT scan were quite nonspecific and we decided to monitor and continue surveillance with another CAT scan of the chest and a PET/CT. Noted the patient underwent a follow-up CAT scan of the chest on 01/26/2024. That time, the patient was noted to have a moderate-sized right-sided pleural effusion. Chronic fibrotic changes bilaterally. The right lower lobe subpleural opacity was still present and there was note of right hilar and similar mediastinal lymphadenopathy. At that point, the patient was given a thoracentesis of the right lung. This was done during her hospital stay and the pleural fluid that was drained turned out to be an exudate with negative cytology. The procedure was done without any complications. A total of 1 L of dark yellowish fluid was aspirated and the fluid cytology was negative for malignancy. No subsequent pneumothorax. In any rate, the patient was supposed to have a PET/CT and this is scheduled to be done on 02/27/2024. Meanwhile, the patient gets hospitalized again with fall. She felt very weak and she landed on her knees bilaterally. She has undergone previous bilateral knee replacements. No reported fractures. No focal neurological deficits. She has carotid Dopp lers that reported occlusion in the right ICA and moderate disease in the left ICA. Vascular surgery has been consulted regarding carotid artery stenosis. Along with pulmonary fibrosis, she has diabetes mellitus, hyperlipidemia, squamous cell anal cancer and anemia of chronic disease. She is oxygen dependent and currently she is on oxygen at 4 L nasal cannula. The white cell count is at 10.2 with a hemoglobin of 10.3 and a platelet count of 318. Sodium levels at 134, BUN is 11 with a creatinine of 0.6. No cough. No sputum production. No chest tightness. No wheezing. Repeat chest x-ray that was done during this current admission shows chronic fibrotic changes bilaterally without any evidence of fluid recurrence. Her previous echocardiogram done on 01/25/2024 showed a preserved LV function, mild to moderate mitral regurgitation and moderate mitral stenosis and moderate degree of pulmonary hypertension with tricuspid regurgitation. The CAT scan of the brain done on 02/25/2024 showed no acute intracranial process in the remote included injury with nonspecific white matter changes and chronic microangiopathy. On 02/26/2024, the patient is being seen for a follow-up. No new complaints. The patient was seen by neurology. Unable to do MRI of the brain as the patient has a pain stimulator. EEG was ordered. Essentially The Same Medications. White Cell Count Is at 8.9, Hemoglobin 9.6, Platelet Count of 402. Electrolytes Are All within Normal Limits. On 02/27/2024, seen the patient for a follow-up. No respiratory difficulties. She continues to have generalized weakness. Alert oriented x 3. MRI of the brain and EEG is also ordered by neurology. Labs are stable. Hemoglobin is at 9.6, the white cell count is at 8.9, electrolytes are all within normal limits. Normal LFTs. The patient is seen today February 28, 2024 in follow-up on the regular medical floor. She is currently resting in bed. Awake and alert in no acute distress. Maintaining good O2 saturation in the mid 90s on 4 L/min per nasal cannula. She is afebrile. Urine culture revealed no growth. White count 6.6. Hemoglobin 9.1. Platelets 381. Sodium 138. Potassium 3.7. Bicarb 24. BUN 9. Creatinine 0.7. Glucose 102. She is currently on ceftriaxone. Normal saline at 75 mL/h. The patient is seen today February 29, 2024 in follow-up on the regular medical floor. She is sitting up in bed. Awake and alert in no acute distress. O2 saturations in the 90s on 4 L/min per nasal cannula. She is afebrile. Culture revealed no growth. White count 6.6. Hemoglobin 8.5. Platelets 380. Sodium 138. Potassium 3.4. Bicarb 25. BUN 8. Creatinine 0.6. Troponin negative. Procalcitonin negative at 0.07. Rocephin discontinued. She remains on Lovenox for DVT prophylaxis. Normal saline at 75 mL/h. The patient is seen today March 01, 2024 in follow-up on the regular medical floor. She is currently resting in bed. Awake and alert in no acute distress. She is maintaining good O2 saturations in the 90s on 4 L/min per nasal cannula. She has normal saline at 75 mL/h. Lovenox for DVT prophylaxis. White count 7.9. Hemoglobin 8.6. Platelets 400. Sodium 138. Potassium 3.8. Bicarb 24. BUN 8. Creatinine 0.6. Glucose 100. The patient is seen today March 02, 2024 in follow-up on the regular medical floor. She is resting comfortably in bed. Awake and alert in no acute distress. Maintaining O2 saturations in the 90s on 6 L/min per nasal cannula. She has been afebrile. Hemodynamically stable. Follow-up chest x-ray pending. Echocardiogram pending. Glucose 136. Lovenox for DVT prophylaxis. Normal saline at 75 mL/h. Objective - Vital Signs Vital signs: Vital Signs Temp 97.8 F 03/02/24 06:47 Pulse 82 03/02/24 06:47 Resp 18 03/02/24 06:47 BP 132/74 03/02/24 06:47 Pulse Ox 92 L 03/02/24 09:26 FiO2 Intake & Output 03/01/24 03/02/24 03/02/24 18:59 06:59 18:59 Intake Total 1530 Output Total 450 650 Balance -450 880 Intake: Oral 1530 Output: Urine 450 650 Other: Voiding Method External Catheter - Exam GENERAL EXAM: Alert, 74-year-old female, resting comfortably in bed, on 6 L nasal cannula, in no apparent distress. HEAD: Normocephalic. EYES: Normal reaction of pupils, equal size. NOSE: Clear with pink turbinates. THROAT: No erythema or exudates. NECK: No masses, no JVD. CHEST: No chest wall deformity. LUNGS: Equal air entry with scattered rhonchi, crackles in the right lung base. CVS: S1 and S2 normal with no audible murmur, regular rhythm. ABDOMEN: No hepatosplenomegaly, normal bowel sounds, no guarding or rigidity. SPINE: No scoliosis or deformity SKIN: No rashes CENTRAL NERVOUS SYSTEM: No focal deficits, tone is normal in all 4 extremities. EXTREMITIES: Transmetatarsal amputation on the right foot. There is no peripheral edema. No clubbing, no cyanosis. Peripheral pulses are intact. - Labs CBC & Chem 7: 03/01/24 02:39 03/01/24 02:39 Labs: Abnormal Lab Results - Last 24 Hours (Table) 03/02/24 Range/Units 11:46 POC Glucose (mg/dL) 136 H (70-110) mg/dL Assessment and Plan Assessment: Acute on chronic hypoxemic respiratory failure secondary to chronic pulmonary fibrosis, currently on 4 L of oxygen by nasal cannula. 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 Awaiting a follow-up PET/CT on 02/27/2024. Noted the patient also has some nonspecific right hilar than mediastinal lymphadenopathy that is being monitored. The patient has a 3 cm masslike consolidative density in the right lower lobe being followed in the outpatient setting. A PET scan from August 19, 2023 revealed right lower lobe pulmonary nodule with increased metabolic activity compatible with malignancy. There is at least 1 right pulmonary hilum lymph node suspicious for metastatic disease. Extensive interstitial opacities along suspicious for ILD. CT scan of the chest was done yesterday 10/08/2023 that revealed similar pleural-based mass of the right lower lobe which is essentially unchanged in overall size and appearance. Possible minimal early cavitation. Pulmonary fibrosis at least moderate in degree. Plan is for follow-up PET scan Chronic hypoxic respiratory failure, currently on 4 L History of anal cancer. Treated with chemotherapy and radiation therapy Right-sided pleural effusion, exudate, post thoracentesis January 28 2024 without any recurrence. A total of 1 L of fluid was aspirated Valvular heart disease with mild to moderate mitral stenosis moderate degree of pulmonary hypertension based on most recent echocardiogram. Patient has preserved LV function History of CVA/TIA x 3 with evidence of carotid artery disease with left-sided stenosis in the order of 50 to 69% Obstructive sleep apnea, no CPAP therapy for now Peripheral vascular disease, and the patient has undergone previous right fem- tib bypass and the patient has previous right toe amputations Nephrolithiasis Diabetes mellitus type 2 Hyperlipidemia Hypothyroidism Former smoker Generalized weakness and frequent falls without any fracture Plan: The patient was seen and evaluated Labs and medications reviewed Follow-up chest x-ray pending Echocardiogram pending Possible discharge to inpatient rehab if accepted I have personally seen and examined the patient, performed the documentation and the assessment and plan as written. Number of minutes spent on the visit: 10 Dictation was produced using [employer] dictation software. Please excuse any gramm atical, word or spelling errors.
[2024-03-02] MEDS ORDERED: FUROSEMIDE 10 MG/ML 4 ML VIAL IV SCH (14:15)
--- NOTE | 2024-03-02 16:38 | XR ---
EXAMINATION TYPE: XR chest 1V portable DATE OF EXAM: 03/02/2024 2:26 PM COMPARISON: None. CLINICAL INDICATION: Female, 74 years old with history of CHF, TECHNIQUE: XR chest 1V portable view(s) obtained. FINDINGS: The heart size is normal. The pulmonary vasculature is indistinct. Diffuse increased lung markings are present. Correlate for pulmonary edema. IMPRESSION: 1. Diffuse increased lung markings can be on the basis of pulmonary edema. Correlate for congestive h eart failure. Follow-up is recommended. [facility], , 03/02/2024 4:36 PM
[2024-03-02 16:53] LABS: Glucose,Whole Blood 100 mg/dL (70-110)
[2024-03-02] MEDS: FUROSEMIDE 10 MG/ML 4 ML VIAL IV SCH (17:08)
--- NOTE | 2024-03-02 17:10 | P.PN ---
Subjective Progress Note Date: 03/02/24 Alexia Rubin, is a 74-year-old female who presented to [facility] emergency room with a chief complaint of generalized weakness and multiple falls, patient was recently hospitalized, and transferred to [facility] for rehabilitation, she was recently discharged home, however she continued to have severe weakness and multiple falls, she was brought back by her family to the emergency room for further evaluation and treatment and possible readmission to the shelter. She was evaluated in the emergency room vital examination on presentation revealed a temperature of 97.8 pulse 70 respiration 18 blood pressure 94/69 pulse ox 99% on room air Laboratory data revealed a white blood count of 9.4 hemoglobin 9.2 platelet count 347 sodium 136 potassium 3.3 chloride 103 CO2 26 BUN 10 creatinine 0.62 lactic acid 1.5, urine analysis revealed evidence of urinary tract infection Testing in the emergency room revealed EKG done in the emergency room revealed sinus rhythm with occasional supraventricular premature complexes, x-ray of the left knee done in the emergency room revealed moderate left joint effusion, chest x-ray was done in the emergency room and revealed evidence for pulmonary edema. Patient was admitted to medical floor for further evaluation and treatment On 02/25/2024 patient's alert and oriented x 3. Repeat labs have been ordered. Carotid Doppler showing some stenosis will consult Dr. Espinal for vascular surgery. GI recommending outpatient follow-up with Dr. hall still awaiting neurology input. Current vital signs temp 97.8, heart rate 65, respiratory rate 15, blood pressure 105/51 with a pulse ox of 97% on 4 L On 02/26/2024 patient was seen and examined on the medical floor, she is alert and oriented x 3 in no apparent distress, she is complaining of shortness of breath with any activity otherwise she denies any complaints there is no fever or chills no headache or dizziness no chest pain she has occasional cough no nausea or vomiting no abdominal pain no diarrhea and no urinary symptoms, she remains on oxygen 4 L via nasal cannula, temperature is 98.0 pulse 69 respiration 19 blood pressure 126/50 pulse ox 93% on 4 L nasal cannula 02/27/2024 patient is alert and oriented 3. EEG and MRI has been ordered per neurology services. This time patient denies chest pain or shortness of breath. Patient denies nausea vomiting or diarrhea. Patient denies any urinary burning or frequency. Discharge planning to [facility] On 02/28/2024 patient was seen and examined on the medical floor she is alert and oriented in no apparent distress, there is no fever or chills no headache or dizziness no chest pain no shortness of breath no cough no nausea or vomiting no abdominal pain no diarrhea and no urinary symptoms blood pressure is low at 84/42, IV normal saline at 75 cc/h were added, cardiology consultation re quested, will follow closely. On 02/29/2024 patient is alert and oriented x 3. Awaiting cardiology input due to hypotension. Current vital signs temp 97.6, heart rate 60, blood pressure 88/55 with a pulse ox of 95% on 4 L patient denies chest pain or shortness of breath. Patient denies nausea vomiting or diarrhea. Patient denies any urinary burning or frequency On 03/01/2024 patient is alert and oriented x 3. EEG has been completed awaiting results. Per case management patient unlikely to be able to be DC'd to ECF due to insurance. Current vital signs temp 98.0, heart rate 55, respiratory rate 17, blood pressure 118/64 with a pulse ox of 95% on 4 L patient denies chest pain or shortness of breath. Patient denies nausea vomiting or diarrhea. Patient denies any urinary burning or frequency. On 03/02/2024 patient was seen and examined on the medical floor she is alert and oriented x 3 in no apparent distress she is complaining of chest congestion and shortness of breath otherwise she denies any complaints at this time there is no fever or chills no headache or dizziness no chest pain she has occasional cough no nausea or vomiting no abdominal pain no diarrhea no urinary symptoms, at this time will discontinue IV fluid and give 2 doses of IV Lasix, will continue to monitor closely Objective - Vital Signs Vital signs: Vital Signs Temp 97.8 F 03/02/24 06:47 Pulse 82 03/02/24 06:47 Resp 18 03/02/24 06:47 BP 132/74 03/02/24 06:47 Pulse Ox 92 L 03/02/24 09:26 FiO2 Intake & Output 03/01/24 03/02/24 03/02/24 18:59 06:59 18:59 Intake Total 1530 Output Total 450 650 Balance -450 880 Intake: Oral 1530 Output: Urine 450 650 Other: Voiding Method External Catheter - Exam In general patient is alert and oriented x 3 in no distress HEENT head normocephalic and atraumatic Neck is supple no JVD no goiter no lymphadenopathy no carotid bruit Chest examination is clear to auscultation no crackles no wheezing Cardiac exam reveals regular heart sounds S1 and S2 no gallops no murmurs Abdomen is soft nontender no organomegaly with normal bowel sounds Extremity exam reveals no edema no cyanosis or clubbing Neurological examination reveals no gross focal deficits - Labs CBC & Chem 7: 03/01/24 02:39 03/01/24 02:39 Labs: Abnormal Lab Results - Last 24 Hours (Table) 03/01/24 Range/Units 10:34 POC Glucose (mg/dL) 133 H (70-110) mg/dL Assessment and Plan Plan: Generalized weakness with multiple falls Anemia, will check stools for Hemoccult, check iron vitamin B12 and folate level, consult gastroenterology for GI workup Urinary tract infection Underlying history of hypertension Underlying history of hyperlipidemia Underlying history of hypothyroidism Underlying history of seizure activity maintained on Keppra Underlying history of depression with anxiety disorder Chest x-ray revealing pulmonary edema, will check BNP and echocardiogram At this time patient is admitted to medical floor Home medications reviewed and reordered Neurology consultation requested Consultation for gastroenterology and neurology initiated Will check echocardiogram For DVT prophylaxis subcu Lovenox Will follow closely
[2024-03-02 20:31] LABS: Glucose,Whole Blood 142 mg/dL (70-110)
[2024-03-03 06:35] LABS: Glucose,Whole Blood 98 mg/dL (70-110)
--- NOTE | 2024-03-03 07:15 | CA ---
Transthoracic Echo Report Name: Alexia Rubin Age: 74 Gender: F : 1950 Exam Date: 03/02/2024 14:36 Exam Location: [place] [facility] Ht (in): 63 Wt (lb): 168 Ordering Physician: Elva Moreno Attending/Referring Phys: [id number], Tiffanie Ekg Technician Elma Jarrett, HARSHAD Procedure CPT: Indications: pericardial effusion Cardiac Hx: Technical Quality: Fair Contrast 1: Total Dose (mL): Contrast 2: Total Dose (mL): MEASUREMENTS (Male / Female) Normal Values 2D ECHO LV Diastolic Diameter PLAX 4.3 cm 4.2 - 5.9 / 3.9 - 5.3 cm LV Systolic Diameter PLAX 3.2 cm IVS Diastolic Thickness 1.0 cm 0.6 - 1.0 / 0.6 - 0.9 cm LVPW Diastolic Thickness 1.3 cm 0.6 - 1.0 / 0.6 - 0.9 cm LV Relative Wall Thickness 0.5 RV Internal Dim ED PLAX 1.5 cm LA Systolic Diameter LX 4.8 cm 3.0 - 4.0 / 2.7 - 3.8 cm FINDINGS Left Ventricle Right Ventricle Right Atrium Left Atrium Severely increased left atrial diameter. Mitral Valve Aortic Valve Tricuspid Valve Pulmonic Valve Pericardium Trace pericardial or pleural effusion. Echo free space anterior to the right ventricle likely represents a fat pad. Aorta CONCLUSIONS Limited study Trace pericardial effusion Previewed by: Dr. Ang Zheng MD (Electronically Signed) Final Date: 03 March 2024 07:14
--- NOTE | 2024-03-03 08:43 | P.PN ---
Subjective Progress Note Date: 03/03/24 Alexia Rubin, is a 74-year-old female who presented to [facility] emergency room with a chief complaint of generalized weakness and multiple falls, patient was recently hospitalized, and transferred to [facility] for rehabilitation, she was recently discharged home, however she continued to have severe weakness and multiple falls, she was brought back by her family to the emergency room for further evaluation and treatment and [facility]. She was evaluated in the emergency room vital examination on presentation revealed a temperature of 97.8 pulse 70 respiration 18 blood pressure 94/69 pulse ox 99% on room air Laboratory data revealed a white blood count of 9.4 hemoglobin 9.2 platelet count 347 sodium 136 potassium 3.3 chloride 103 CO2 26 BUN 10 creatinine 0.62 lactic acid 1.5, urine analysis revealed evidence of urinary tract infection Testing in the emergency room revealed EKG done in the emergency room revealed sinus rhythm with occasional supraventricular premature complexes, x-ray of the left knee done in the emergency room revealed moderate left joint effusion, chest x-ray was done in the emergency room and revealed evidence for pulmonary edema. Patient was admitted to medical floor for further evaluation and treatment On 02/25/2024 patient's alert and oriented x 3. Repeat labs have been ordered. Carotid Doppler showing some stenosis will consult Dr. Espinal for vascular surgery. GI recommending outpatient follow-up with Dr. hall still awaiting neurology input. Current vital signs temp 97.8, heart rate 65, respiratory rate 15, blood pressure 105/51 with a pulse ox of 97% on 4 L On 02/26/2024 patient was seen and examined on the medical floor, she is alert and oriented x 3 in no apparent distress, she is complaining of shortness of breath with any activity otherwise she denies any complaints there is no fever or chills no headache or dizziness no chest pain she has occasional cough no nausea or vomiting no abdominal pain no diarrhea and no urinary symptoms, she remains on oxygen 4 L via nasal cannula, temperature is 98.0 pulse 69 respiration 19 blood pressure 126/50 pulse ox 93% on 4 L nasal cannula 02/27/2024 patient is alert and oriented 3. EEG and MRI has been ordered per neurology services. This time patient denies chest pain or shortness of breath. Patient denies nausea vomiting or diarrhea. Patient denies any urinary burning or frequency. Discharge planning to [facility] On 02/28/2024 patient was seen and examined on the medical floor she is alert and oriented in no apparent distress, there is no fever or chills no headache or dizziness no chest pain no shortness of breath no cough no nausea or vomiting no abdominal pain no diarrhea and no urinary symptoms blood pressure is low at 84/42, IV normal saline at 75 cc/h were added, cardiology consultation re quested, will follow closely. On 02/29/2024 patient is alert and oriented x 3. Awaiting cardiology input due to hypotension. Current vital signs temp 97.6, heart rate 60, blood pressure 88/55 with a pulse ox of 95% on 4 L patient denies chest pain or shortness of breath. Patient denies nausea vomiting or diarrhea. Patient denies any urinary burning or frequency On 03/01/2024 patient is alert and oriented x 3. EEG has been completed awaiting results. Per case management patient unlikely to be able to be DC'd to ECF due to insurance. Current vital signs temp 98.0, heart rate 55, respiratory rate 17, blood pressure 118/64 with a pulse ox of 95% on 4 L patient denies chest pain or shortness of breath. Patient denies nausea vomiting or diarrhea. Patient denies any urinary burning or frequency. On 03/02/2024 patient was seen and examined on the medical floor she is alert and oriented x 3 in no apparent distress she is complaining of chest congestion and shortness of breath otherwise she denies any complaints at this time there is no fever or chills no headache or dizziness no chest pain she has occasional cough no nausea or vomiting no abdominal pain no diarrhea no urinary symptoms, at this time will discontinue IV fluid and give 2 doses of IV Lasix, will continue to monitor closely On 03/03/2024 patient is alert and oriented x 3. Patient has been started on IV Lasix. Chest x-ray showingDiffuse increased lung markings can be on the basis of pulmonary edema correlate for CHF at this time will consult cardiology services. Patient reports improvement with shortness of breath. Patient denies chest pain. Patient denies nausea vomiting or diarrhea. Patient denies any urinary burning or frequency Objective - Vital Signs Vital signs: Vital Signs Temp 97.8 F 03/03/24 00:44 Pulse 66 03/03/24 00:44 Resp 20 03/03/24 00:44 BP 106/63 03/03/24 07:28 Pulse Ox 97 03/03/24 07:28 FiO2 Intake & Output 03/02/24 03/03/24 03/03/24 18:59 06:59 18:59 Output Total 1400 450 Balance -1400 -450 Output: Urine 1400 450 Other: Voiding Method External Catheter - Exam In general patient is alert and oriented x 3 in no distress HEENT head normocephalic and atraumatic Neck is supple no JVD no goiter no lymphadenopathy no carotid bruit Chest examination is clear to auscultation no crackles no wheezing Cardiac exam reveals regular heart sounds S1 and S2 no gallops no murmurs Abdomen is soft nontender no organomegaly with normal bowel sounds Extremity exam reveals no edema no cyanosis or clubbing Neurological examination reveals no gross focal deficits - Labs CBC & Chem 7: 03/01/24 02:39 03/01/24 02:39 Labs: Abnormal Lab Results - Last 24 Hours (Table) 03/02/24 03/02/24 Range/Units 11:46 20:29 POC Glucose (mg/dL) 136 H 142 H (70-110) mg/dL Assessment and Plan Plan: Generalized weakness with multiple falls Anemia, will check stools for Hemoccult, check iron vitamin B12 and folate level, consult gastroenterology for GI workup Urinary tract infection Underlying history of hypertension Underlying history of hyperlipidemia Underlying history of hypothyroidism Underlying history of seizure activity maintained on Keppra Underlying history of depression with anxiety disorder Chest x-ray revealing pulmonary edema, will check BNP and echocardiogram At this time patient is admitted to medical floor Home medications reviewed and reordered Neurology consultation requested Consultation for gastroenterology and neurology initiated Will check echocardiogram For DVT prophylaxis subcu Lovenox Will follow closely
[2024-03-03 08:49] LABS: Basophils # (A) 0.04 X 10*3/uL (0.00-0.10); Basophils % (A) 0.4 %; Eosinophils # (A) 0.22 X 10*3/uL (0.04-0.35); Eosinophils % (A) 2.4 %; HCT 26.5 % (37.2-46.3); HGB 8.2 g/dL (12.0-15.0); Lymphocytes # (A) 2.46 X 10*3/uL (0.90-5.00); Lymphocytes % (A) 26.7 %; MCH 26.9 pg (27.0-32.0); MCHC 30.9 g/dL (32.0-37.0); MCV 86.9 FL (80.0-97.0); Mean Platelet Volume 10.1 FL (9.5-12.2); Monocytes # (A) 0.73 X 10*3/uL (0.20-1.00); Monocytes % (A) 7.9 %; NRBC Per 100 WBC 0 X 10*3/uL (0.00-0.01); Neutrophils # (A) 5.74 X 10*3/uL (1.80-7.70); Neutrophils % (A) 62.2 %; Platelet Count 386 X 10*3/uL (140-440); RBC 3.05 X 10*6/uL (4.10-5.20); RDW 17.1 % (11.5-14.5); WBC 9.23 X 10*3/uL (4.50-10.00)
[2024-03-03 08:58] LABS: ALT 19 U/L (8-44); AST 25 U/L (13-35); Albumin 2.8 g/dL (3.8-4.9); Albumin/Globulin Ratio 1.47 Ratio (1.60-3.17); Alkaline Phosphatase 75 U/L (41-126); BUN/Creat Ratio 12.67 Ratio (12.00-20.00); Blood Urea Nitrogen 7.6 mg/dL (9.0-27.0); Carbon Dioxide 25.7 mmol/L (21.6-31.8); Chloride 102 mmol/L (96-109); Globulin 1.9 g/dL (1.6-3.3); Glucose 96 mg/dL (70-110); Potassium 3.2 mmol/L (3.5-5.5); Sodium 137 mmol/L (135-145); Total Bilirubin 0.5 mg/dL (0.3-1.2); Total Protein 4.7 g/dL (6.2-8.2)
[2024-03-03 11:50] LABS: Glucose,Whole Blood 117 mg/dL (70-110)
--- NOTE | 2024-03-03 12:33 | P.PN ---
Subjective Progress Note Date: 03/03/24 I was asked to evaluate this patient regarding her abnormal CAT scan of the chest. The patient is known to me. She follows up with my partner in the office. She has history of chronic pulmonary fibrosis. She was also history of anal cancer and she was noted to have a right lower lobe subpleural opacity that showed some limited activity on the previous PET scan. There was concern for malignancy. I was approached the biopsy this abnormality. Nevertheless, the findings on the CAT scan were quite nonspecific and we decided to monitor and continue surveillance with another CAT scan of the chest and a PET/CT. Noted the patient underwent a follow-up CAT scan of the chest on 01/26/2024. That time, the patient was noted to have a moderate-sized right-sided pleural effusion. Chronic fibrotic changes bilaterally. The right lower lobe subpleural opacity was still present and there was note of right hilar and similar mediastinal lymphadenopathy. At that point, the patient was given a thoracentesis of the right lung. This was done during her hospital stay and the pleural fluid that was drained turned out to be an exudate with negative cytology. The procedure was done without any complications. A total of 1 L of dark yellowish fluid was aspirated and the fluid cytology was negative for malignancy. No subsequent pneumothorax. In any rate, the patient was supposed to have a PET/CT and this is scheduled to be done on 02/27/2024. Meanwhile, the patient gets hospitalized again with fall. She felt very weak and she landed on her knees bilaterally. She has undergone previous bilateral knee replacements. No reported fractures. No focal neurological deficits. She has carotid Dopp lers that reported occlusion in the right ICA and moderate disease in the left ICA. Vascular surgery has been consulted regarding carotid artery stenosis. Along with pulmonary fibrosis, she has diabetes mellitus, hyperlipidemia, squamous cell anal cancer and anemia of chronic disease. She is oxygen dependent and currently she is on oxygen at 4 L nasal cannula. The white cell count is at 10.2 with a hemoglobin of 10.3 and a platelet count of 318. Sodium levels at 134, BUN is 11 with a creatinine of 0.6. No cough. No sputum production. No chest tightness. No wheezing. Repeat chest x-ray that was done during this current admission shows chronic fibrotic changes bilaterally without any evidence of fluid recurrence. Her previous echocardiogram done on 01/25/2024 showed a preserved LV function, mild to moderate mitral regurgitation and moderate mitral stenosis and moderate degree of pulmonary hypertension with tricuspid regurgitation. The CAT scan of the brain done on 02/25/2024 showed no acute intracranial process in the remote included injury with nonspecific white matter changes and chronic microangiopathy. On 02/26/2024, the patient is being seen for a follow-up. No new complaints. The patient was seen by neurology. Unable to do MRI of the brain as the patient has a pain stimulator. EEG was ordered. Essentially The Same Medications. White Cell Count Is at 8.9, Hemoglobin 9.6, Platelet Count of 402. Electrolytes Are All within Normal Limits. On 02/27/2024, seen the patient for a follow-up. No respiratory difficulties. She continues to have generalized weakness. Alert oriented x 3. MRI of the brain and EEG is also ordered by neurology. Labs are stable. Hemoglobin is at 9.6, the white cell count is at 8.9, electrolytes are all within normal limits. Normal LFTs. The patient is seen today February 28, 2024 in follow-up on the regular medical floor. She is currently resting in bed. Awake and alert in no acute distress. Maintaining good O2 saturation in the mid 90s on 4 L/min per nasal cannula. She is afebrile. Urine culture revealed no growth. White count 6.6. Hemoglobin 9.1. Platelets 381. Sodium 138. Potassium 3.7. Bicarb 24. BUN 9. Creatinine 0.7. Glucose 102. She is currently on ceftriaxone. Normal saline at 75 mL/h. The patient is seen today February 29, 2024 in follow-up on the regular medical floor. She is sitting up in bed. Awake and alert in no acute distress. O2 saturations in the 90s on 4 L/min per nasal cannula. She is afebrile. Culture revealed no growth. White count 6.6. Hemoglobin 8.5. Platelets 380. Sodium 138. Potassium 3.4. Bicarb 25. BUN 8. Creatinine 0.6. Troponin negative. Procalcitonin negative at 0.07. Rocephin discontinued. She remains on Lovenox for DVT prophylaxis. Normal saline at 75 mL/h. The patient is seen today March 01, 2024 in follow-up on the regular medical floor. She is currently resting in bed. Awake and alert in no acute distress. She is maintaining good O2 saturations in the 90s on 4 L/min per nasal cannula. She has normal saline at 75 mL/h. Lovenox for DVT prophylaxis. White count 7.9. Hemoglobin 8.6. Platelets 400. Sodium 138. Potassium 3.8. Bicarb 24. BUN 8. Creatinine 0.6. Glucose 100. The patient is seen today March 02, 2024 in follow-up on the regular medical floor. She is resting comfortably in bed. Awake and alert in no acute distress. Maintaining O2 saturations in the 90s on 6 L/min per nasal cannula. She has been afebrile. Hemodynamically stable. Follow-up chest x-ray pending. Echocardiogram pending. Glucose 136. Lovenox for DVT prophylaxis. Normal saline at 75 mL/h. The patient is seen today March 03, 2024 in follow-up on the regular medical floor. She is sitting up in bed. Awake and alert in no acute distress. Denies any worsening shortness of breath, cough or congestion. Feeling better today compared to yesterday. She is maintaining O2 saturations in the 90s on 6 L high flow nasal cannula. She has been afebrile. Hemodynamically stable. Currently in a -1.8 L balance. White count 9.2. Hemoglobin 8.2. Platelets 386. Sodium 137. Potassium 3.2. Bicarb 26. BUN 8. Creatinine 0.6. She remains on IV diuretics. Lovenox for DVT prophylaxis. Objective - Vital Signs Vital signs: Vital Signs Temp 97.5 F L 03/03/24 07:37 Pulse 71 03/03/24 07:37 Resp 18 03/03/24 07:37 BP 119/67 03/03/24 07:37 Pulse Ox 92 L 03/03/24 07:37 FiO2 Intake & Output 03/02/24 03/03/24 03/03/24 18:59 06:59 18:59 Output Total 1400 450 550 Balance -1400 -450 -550 Output: Urine 1400 450 550 Other: Voiding Method External Catheter # Bowel Movements 2 - Exam GENERAL EXAM: Alert, 74-year-old female, on 6 L nasal cannula, in no apparent distress. HEAD: Normocephalic. EYES: Normal reaction of pupils, equal size. NOSE: Clear with pink turbinates. THROAT: No erythema or exudates. NECK: No masses, no JVD. CHEST: No chest wall deformity. LUNGS: Equal air entry with scattered rhonchi, crackles in the right lung base. CVS: S1 and S2 normal with no audible murmur, regular rhythm. ABDOMEN: No hepatosplenomegaly, normal bowel sounds, no guarding or rigidity. SPINE: No scoliosis or deformity SKIN: No rashes CENTRAL NERVOUS SYSTEM: No focal deficits, tone is normal in all 4 extremities. EXTREMITIES: Transmetatarsal amputation on the right foot. There is no peripheral edema. No clubbing, no cyanosis. Peripheral pulses are intact. - Labs CBC & Chem 7: 03/03/24 03:45 03/03/24 03:45 Labs: Abnormal Lab Results - Last 24 Hours (Table) 03/02/24 03/03/24 03/03/24 Range/Units 20:29 03:45 03:45 RBC 3.05 L (4.10-5.20) X 10*6/uL Hgb 8.2 L (12.0-15.0) g/dL Hct 26.5 L (37.2-46.3) % MCH 26.9 L (27.0-32.0) pg MCHC 30.9 L (32.0-37.0) g/dL RDW 17.1 H (11.5-14.5) % Potassium 3.2 L (3.5-5.5) mmol/L BUN 7.6 L (9.0-27.0) mg/dL POC Glucose (mg/dL) 142 H (70-110) mg/dL Calcium 8.0 L (8.7-10.3) mg/dL Total Protein 4.7 L (6.2-8.2) g/dL Albumin 2.8 L (3.8-4.9) g/dL Albumin/Globulin Ratio 1.47 L (1.60-3.17) Ratio 03/03/24 Range/Units 11:46 RBC (4.10-5.20) X 10*6/uL Hgb (12.0-15.0) g/dL Hct (37.2-46.3) % MCH (27.0-32.0) pg MCHC (32.0-37.0) g/dL RDW (11.5-14.5) % Potassium (3.5-5.5) mmol/L BUN (9.0-27.0) mg/dL POC Glucose (mg/dL) 117 H (70-110) mg/dL Calcium (8.7-10.3) mg/dL Total Protein (6.2-8.2) g/dL Albumin (3.8-4.9) g/dL Albumin/Globulin Ratio (1.60-3.17) Ratio Assessment and Plan Assessment: Acute on chronic hypoxemic respiratory failure secondary to chronic pulmonary fibrosis, currently on 6 L of oxygen by nasal cannula. 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 Awaiting a follow-up PET/CT on 02/27/2024. Noted the patient also has some nonspecific right hilar than mediastinal lymphadenopathy that is being monitored. The patient has a 3 cm masslike consolidative density in the right lower lobe being followed in the outpatient setting. A PET scan from August 19, 2023 revealed right lower lobe pulmonary nodule with increased metabolic activity compatible with malignancy. There is at least 1 right pulmonary hilum lymph node suspicious for metastatic disease. Extensive interstitial opacities along suspicious for ILD. CT scan of the chest was done yesterday 10/08/2023 that revealed similar pleural-based mass of the right lower lobe which is essentially unchanged in overall size and appearance. Possible minimal early cavitation. Pulmonary fibrosis at least moderate in degree. Plan is for follow-up PET scan Chronic hypoxic respiratory failure, normally on 4 L History of anal cancer. Treated with chemotherapy and radiation therapy Right-sided pleural effusion, exudate, post thoracentesis January 28 2024 without any recurrence. A total of 1 L of fluid was aspirated Valvular heart disease with mild to moderate mitral stenosis moderate degree of pulmonary hypertension based on most recent echocardiogram. Patient has preserved LV function History of CVA/TIA x 3 with evidence of carotid artery disease with left-sided stenosis in the order of 50 to 69% Obstructive sleep apnea, no CPAP therapy for now Peripheral vascular disease, and the patient has undergone previous right fem- tib bypass and the patient has previous right toe amputations Nephrolithiasis Diabetes mellitus type 2 Hyperlipidemia Hypothyroidism Former smoker Generalized weakness and frequent falls without any fracture Plan: The patient was seen and evaluated Chest x-ray, labs and medications reviewed Remains on IV diuretics Titrate down the FiO2 as tolerated Possible discharge to sub acute rehab if accepted I have personally seen and examined the patient, performed the documentation and the assessment and plan as written. Number of minutes spent on the visit: 10 Dictation was produced using [employer] dictation software. Please excuse any grammatical, word or spelling errors.
[2024-03-03 14:22] VITALS: BMI 29.7
--- NOTE | 2024-03-03 14:25 | P.PN ---
Subjective Progress Note Date: 03/03/24 Reason for Consult (text): Hypotension History of present illness: This is a 74-year-old female patient previously seen by Dr. Genao in the office in 2021 with past medical history of PAD with previous right fem-tib bypass and amputation of the right toes, valvular heart disease, diabetes mellitus type 2, dyslipidemia, COPD, chronic pulmonary fibrosis, chronic hypoxic respiratory failure on home O2 at 4 L, obstructive sleep apnea, TIA, chronic anemia, history of squamous cell anal cancer with current lung mass that has not been worked up, tobacco use and dependence. We have been asked to evaluate the patient for hypotension. Patient apparently recently left the [place] [facility] and presented to the hospital after she had a fall when her daughter was moving her to a wheelchair and injured her knees. Patient was admitted to the hospital on 02/22. Patient has multiple consultants in place including GI, vascular surgery, pulmonary medicine, neurology. Patient denies any shortness of breath at this time and no chest pain. Blood pressures have been on the soft side most systolic blood pressures are in the 80s up to 91. She is currently on IV fluids at 75 cc/h. Heart rate is in the 60s, pulse ox 93% on 4 L nasal cannula. EKG: Sinus rhythm with nonspecific ST changes Chest x-ray: 02/22: Correlate for pulmonary edema Laboratory studies: WBC 6.6, hemoglobin 8.5. Sodium 138, potassium 3.4, creatinine 0.6. Home cardiac medications: Aspirin 81 mg daily, Lipitor 80 mg at bedtime, Plavix 75 mg daily, Lasix 40 mg twice daily, also on levothyroxine 25 mcg daily Echocardiogram performed 01/24/2024 reveals EF of 55 to 60%, mild and regur gitation, mild to moderate mitral regurgitation with moderate mitral stenosis, moderate tricuspid regurgitation and moderate pulmonary hypertension Lexiscan Cardiolite stress test performed 05/13/2020 revealed EF of 61%, normal test 03/01/24 Patient seen and examined. Blood pressure running between 94/60 and 119/64, heart rate 55, pulse ox 95% on 4 L. Troponins were negative x 3 draws. Repeat blood work reveals hemoglobin 8.6. Creatinine 0.6. Patient states that her breathing is better today. She denies any dizziness. She states she sometimes has lightheadedness. Regarding low blood pressure readings, patient states that his has been going on for a year now. 03/03/24 Cardiology signed off patient case on 03/01. We have been reconsulted regarding CHF. Patient states that yesterday she started having more shortness of breath, no edema. Oxygen was increased from 4 L to 6 L. Patient has been started on IV Lasix 40 mg twice daily by pulmonary medicine. Blood pressure 119/67, heart rate 71, pulse ox 92% on 6 L nasal cannula. Repeat blood work reveals hemoglobin 8.2. Potassium 3.2, BUN 7.6 and creatinine 0.6. Physical examination: Gen: This is a 74-year-old female in no acute distress VS: reviewed HEENT: Head is atraumatic, normocephalic. Pupils equal, round. Sclerae is anicteric. NECK: Supple. No JVD. LUNGS: Diminished breath sounds to the bases. No intercostal retractions. HEART: Regular rate and rhythm. No murmur. ABDOMEN: Soft No tenderness. EXTREMITIES: No pedal edema. No calf tenderness. NEUROLOGICAL: Patient is awake, alert and oriented x3. Assessment: Hypotension Generalized weakness PAD with previous right fem-tib bypass and amputation of the right toes Valvular heart disease with mild to moderate MR, moderate MS, moderate TR, mild and AR Moderate pulmonary hypertension Diabetes mellitus type 2 Dyslipidemia COPD Chronic pulmonary fibrosis Chronic hypoxic respiratory failure on home O2 at 4 L Obstructive sleep apnea not on CPAP TIAs multiple Chronic anemia History of squamous cell anal cancer Lung mass History of tobacco use and dependence, recently quit Right ICA occlusion, severe left carotid bulb stenosis with 50 to 69% Acute diastolic heart failure Plan: Continue patient's home cardiac medications Continue patient on IV Lasix but decrease to once daily, 40 mg Monitor ERINN, daily weights, electrolytes and renal function No need to repeat echocardiogram as this was done in January At the time of discharge, patient will follow-up in the office with Dr. Genao in 1 to 2 weeks. Nurse practitioner note has been reviewed, I agree with documented findings and plan of care. Patient was seen and examined. Objective - Vital Signs Vital signs: Vital Signs Temp 97.5 F L 03/03/24 07:37 Pulse 71 03/03/24 07:37 Resp 18 03/03/24 07:37 BP 119/67 03/03/24 07:37 Pulse Ox 92 L 03/03/24 07:37 FiO2 Intake & Output 03/02/24 03/03/24 03/03/24 18:59 06:59 18:59 Output Total 1400 450 550 Balance -1400 -450 -550 Output: Urine 1400 450 550 Other: Voiding Method External Catheter # Bowel Movements 2 - Labs CBC & Chem 7: 03/03/24 03:45 03/03/24 03:45 Labs: Abnormal Lab Results - Last 24 Hours (Table) 03/02/24 03/02/24 03/03/24 Range/Units 11:46 20:29 03:45 RBC 3.05 L (4.10-5.20) X 10*6/uL Hgb 8.2 L (12.0-15.0) g/dL Hct 26.5 L (37.2-46.3) % MCH 26.9 L (27.0-32.0) pg MCHC 30.9 L (32.0-37.0) g/dL RDW 17.1 H (11.5-14.5) % Potassium (3.5-5.5) mmol/L BUN (9.0-27.0) mg/dL POC Glucose (mg/dL) 136 H 142 H (70-110) mg/dL Calcium (8.7-10.3) mg/dL Total Protein (6.2-8.2) g/dL Albumin (3.8-4.9) g/dL Albumin/Globulin Ratio (1.60-3.17) Ratio 03/03/24 Range/Units 03:45 RBC (4.10-5.20) X 10*6/uL Hgb (12.0-15.0) g/dL Hct (37.2-46.3) % MCH (27.0-32.0) pg MCHC (32.0-37.0) g/dL RDW (11.5-14.5) % Potassium 3.2 L (3.5-5.5) mmol/L BUN 7.6 L (9.0-27.0) mg/dL POC Glucose (mg/dL) (70-110) mg/dL Calcium 8.0 L (8.7-10.3) mg/dL Total Protein 4.7 L (6.2-8.2) g/dL Albumin 2.8 L (3.8-4.9) g/dL Albumin/Globulin Ratio 1.47 L (1.60-3.17) Ratio
[2024-03-03] MEDS: POTASSIUM CHLORIDE ER 20 MEQ TAB.ER PO STA (14:43)
[2024-03-03 16:48] LABS: Glucose,Whole Blood 95 mg/dL (70-110)
[2024-03-03 20:52] LABS: Glucose,Whole Blood 163 mg/dL (70-110)
[2024-03-04 06:11] LABS: Glucose,Whole Blood 96 mg/dL (70-110)
[2024-03-04] MEDS: GABAPENTIN 300 MG CAP PO SCH (08:38)
[2024-03-04] MEDS: FUROSEMIDE 10 MG/ML 4 ML VIAL IV SCH (08:38)
[2024-03-04 09:51] LABS: BUN/Creat Ratio 16.83 Ratio (12.00-20.00); Blood Urea Nitrogen 10.1 mg/dL (9.0-27.0); Calcium 8.5 mg/dL (8.7-10.3); Carbon Dioxide 25.8 mmol/L (21.6-31.8); Chloride 101 mmol/L (96-109); Glucose 104 mg/dL (70-110); Potassium 3.5 mmol/L (3.5-5.5); Sodium 137 mmol/L (135-145)
[2024-03-04 11:44] LABS: Glucose,Whole Blood 125 mg/dL (70-110)
--- NOTE | 2024-03-04 12:40 | P.PN ---
Subjective Progress Note Date: 03/04/24 I was asked to evaluate this patient regarding her abnormal CAT scan of the chest. The patient is known to me. She follows up with my partner in the office. She has history of chronic pulmonary fibrosis. She was also history of anal cancer and she was noted to have a right lower lobe subpleural opacity that showed some limited activity on the previous PET scan. There was concern for malignancy. I was approached the biopsy this abnormality. Nevertheless, the findings on the CAT scan were quite nonspecific and we decided to monitor and continue surveillance with another CAT scan of the chest and a PET/CT. Noted the patient underwent a follow-up CAT scan of the chest on 01/26/2024. That time, the patient was noted to have a moderate-sized right-sided pleural effusion. Chronic fibrotic changes bilaterally. The right lower lobe subpleural opacity was still present and there was note of right hilar and similar mediastinal lymphadenopathy. At that point, the patient was given a thoracentesis of the right lung. This was done during her hospital stay and the pleural fluid that was drained turned out to be an exudate with negative cytology. The procedure was done without any complications. A total of 1 L of dark yellowish fluid was aspirated and the fluid cytology was negative for malignancy. No subsequent pneumothorax. In any rate, the patient was supposed to have a PET/CT and this is scheduled to be done on 02/27/2024. Meanwhile, the patient gets hospitalized again with fall. She felt very weak and she landed on her knees bilaterally. She has undergone previous bilateral knee replacements. No reported fractures. No focal neurological deficits. She has carotid Dopp lers that reported occlusion in the right ICA and moderate disease in the left ICA. Vascular surgery has been consulted regarding carotid artery stenosis. Along with pulmonary fibrosis, she has diabetes mellitus, hyperlipidemia, squamous cell anal cancer and anemia of chronic disease. She is oxygen dependent and currently she is on oxygen at 4 L nasal cannula. The white cell count is at 10.2 with a hemoglobin of 10.3 and a platelet count of 318. Sodium levels at 134, BUN is 11 with a creatinine of 0.6. No cough. No sputum production. No chest tightness. No wheezing. Repeat chest x-ray that was done during this current admission shows chronic fibrotic changes bilaterally without any evidence of fluid recurrence. Her previous echocardiogram done on 01/25/2024 showed a preserved LV function, mild to moderate mitral regurgitation and moderate mitral stenosis and moderate degree of pulmonary hypertension with tricuspid regurgitation. The CAT scan of the brain done on 02/25/2024 showed no acute intracranial process in the remote included injury with nonspecific white matter changes and chronic microangiopathy. On 02/26/2024, the patient is being seen for a follow-up. No new complaints. The patient was seen by neurology. Unable to do MRI of the brain as the patient has a pain stimulator. EEG was ordered. Essentially The Same Medications. White Cell Count Is at 8.9, Hemoglobin 9.6, Platelet Count of 402. Electrolytes Are All within Normal Limits. On 02/27/2024, seen the patient for a follow-up. No respiratory difficulties. She continues to have generalized weakness. Alert oriented x 3. MRI of the brain and EEG is also ordered by neurology. Labs are stable. Hemoglobin is at 9.6, the white cell count is at 8.9, electrolytes are all within normal limits. Normal LFTs. The patient is seen today February 28, 2024 in follow-up on the regular medical floor. She is currently resting in bed. Awake and alert in no acute distress. Maintaining good O2 saturation in the mid 90s on 4 L/min per nasal cannula. She is afebrile. Urine culture revealed no growth. White count 6.6. Hemoglobin 9.1. Platelets 381. Sodium 138. Potassium 3.7. Bicarb 24. BUN 9. Creatinine 0.7. Glucose 102. She is currently on ceftriaxone. Normal saline at 75 mL/h. The patient is seen today February 29, 2024 in follow-up on the regular medical floor. She is sitting up in bed. Awake and alert in no acute distress. O2 saturations in the 90s on 4 L/min per nasal cannula. She is afebrile. Culture revealed no growth. White count 6.6. Hemoglobin 8.5. Platelets 380. Sodium 138. Potassium 3.4. Bicarb 25. BUN 8. Creatinine 0.6. Troponin negative. Procalcitonin negative at 0.07. Rocephin discontinued. She remains on Lovenox for DVT prophylaxis. Normal saline at 75 mL/h. The patient is seen today March 01, 2024 in follow-up on the regular medical floor. She is currently resting in bed. Awake and alert in no acute distress. She is maintaining good O2 saturations in the 90s on 4 L/min per nasal cannula. She has normal saline at 75 mL/h. Lovenox for DVT prophylaxis. White count 7.9. Hemoglobin 8.6. Platelets 400. Sodium 138. Potassium 3.8. Bicarb 24. BUN 8. Creatinine 0.6. Glucose 100. The patient is seen today March 02, 2024 in follow-up on the regular medical floor. She is resting comfortably in bed. Awake and alert in no acute distress. Maintaining O2 saturations in the 90s on 6 L/min per nasal cannula. She has been afebrile. Hemodynamically stable. Follow-up chest x-ray pending. Echocardiogram pending. Glucose 136. Lovenox for DVT prophylaxis. Normal saline at 75 mL/h. The patient is seen today March 03, 2024 in follow-up on the regular medical floor. She is sitting up in bed. Awake and alert in no acute distress. Denies any worsening shortness of breath, cough or congestion. Feeling better today compared to yesterday. She is maintaining O2 saturations in the 90s on 6 L high flow nasal cannula. She has been afebrile. Hemodynamically stable. Currently in a -1.8 L balance. White count 9.2. Hemoglobin 8.2. Platelets 386. Sodium 137. Potassium 3.2. Bicarb 26. BUN 8. Creatinine 0.6. She remains on IV diuretics. Lovenox for DVT prophylaxis. The patient is seen today March 04, 2024 in follow-up on the regular medical floor. She is awake and alert in no acute distress. Sitting up in bed. Denies any worsening shortness of breath, cough or congestion. Feeling better. Diuresing well from the IV Lasix. Remains in a negative balance. Urine culture revealed no growth. Sodium 137. Potassium 3.5. Bicarb 26. BUN 10. Creatinine 0.6. Glucose 104. Lovenox for DVT prophylaxis. Objective - Vital Signs Vital signs: Vital Signs Temp 98.7 F 03/04/24 07:59 Pulse 73 03/04/24 07:59 Resp 18 03/04/24 07:59 BP 100/46 03/04/24 07:59 Pulse Ox 93 L 03/04/24 07:59 FiO2 Intake & Output 03/03/24 03/04/2424 18:59 06:59 18:59 Output Total 550 675 400 Balance -550 -675 -400 Weight 76.204 kg Output: Urine 550 675 400 Other: Voiding Method Bedpan # Bowel Movements 2 1 1 # Emeses 1 - Exam GENERAL EXAM: Alert, 74-year-old female, resting in bed, on 2 L nasal cannula, in no apparent distress. HEAD: Normocephalic. EYES: Normal reaction of pupils, equal size. NOSE: Clear with pink turbinates. THROAT: No erythema or exudates. NECK: No masses, no JVD. CHEST: No chest wall deformity. LUNGS: Equal air entry with scattered rhonchi, crackles in the right lung base. CVS: S1 and S2 normal with no audible murmur, regular rhythm. ABDOMEN: No hepatosplenomegaly, normal bowel sounds, no guarding or rigidity. SPINE: No scoliosis or deformity SKIN: No rashes CENTRAL NERVOUS SYSTEM: No focal deficits, tone is normal in all 4 extremities. EXTREMITIES: Transmetatarsal amputation on the right foot. There is no peripheral edema. No clubbing, no cyanosis. Peripheral pulses are intact. - Labs CBC & Chem 7: 03/03/24 03:45 03/04/24 06:27 Labs: Abnormal Lab Results - Last 24 Hours (Table) 03/03/24 03/04/24 03/04/24 Range/Units 20:45 06:27 11:43 POC Glucose (mg/dL) 163 H 125 H (70-110) mg/dL Calcium 8.5 L (8.7-10.3) mg/dL Assessment and Plan Assessment: Acute on chronic hypoxemic respiratory failure secondary to chronic pulmonary fibrosis, diastolic congestive heart failure, currently on 2 L of oxygen by nasal cannula. 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 Awaiting a follow-up PET/CT on 02/27/2024. Noted the patient also has some nonspecific right hilar than mediastinal lymphadenopathy that is being monitored. The patient has a 3 cm masslike consolidative density in the right lower lobe being followed in the outpatient setting. A PET scan from August 19, 2023 revealed right lower lobe pulmonary nodule with increased metabolic activity compatible with malignancy. There is at least 1 right pulmonary hilum lymph node suspicious for metastatic disease. Extensive interstitial opacities along suspicious for ILD. CT scan of the chest was done yesterday 10/08/2023 that revealed similar pleural-based mass of the right lower lobe which is essentially unchanged in overall size and appearance. Possible minimal early cavitation. Pulmonary fibrosis at least moderate in degree. Plan is for follow-up PET scan Chronic hypoxic respiratory failure, normally on 4 L History of anal cancer. Treated with chemotherapy and radiation therapy Right-sided pleural effusion, exudate, post thoracentesis January 28 2024 without any recurrence. A total of 1 L of fluid was aspirated Valvular heart disease with mild to moderate mitral stenosis moderate degree of pulmonary hypertension based on most recent echocardiogram. Patient has preserved LV function History of CVA/TIA x 3 with evidence of carotid artery disease with left-sided stenosis in the order of 50 to 69% Obstructive sleep apnea, no CPAP therapy for now Peripheral vascular disease, and the patient has undergone previous right fem- tib bypass and the patient has previous right toe amputations Nephrolithiasis Diabetes mellitus type 2 Hyperlipidemia Hypothyroidism Former smoker Generalized weakness and frequent falls without any fracture Plan: The patient was seen and evaluated Labs and medications reviewed Remains on IV diuretics Titrate down the FiO2 as tolerated Discharge planning in place I have personally seen and examined the patient, performed the documentation and the assessment and plan as written. Number of minutes spent on the visit: 10 Dictation was produced using [employer] dictation software. Please excuse any grammatical, word or spelling errors.
--- NOTE | 2024-03-04 13:26 | P.PN ---
Subjective Progress Note Date: 03/04/24 Alexia Rubin, is a 74-year-old female who presented to [facility] emergency room with a chief complaint of generalized weakness and multiple falls, patient was recently hospitalized, and transferred to [facility] for rehabilitation, she was recently discharged home, however she continued to have severe weakness and multiple falls, she was brought back by her family to the emergency room for further evaluation and treatment and possible readmission to the [facility]. She was evaluated in the emergency room vital examination on presentation revealed a temperature of 97.8 pulse 70 respiration 18 blood pressure 94/69 pulse ox 99% on room air Laboratory data revealed a white blood count of 9.4 hemoglobin 9.2 platelet count 347 sodium 136 potassium 3.3 chloride 103 CO2 26 BUN 10 creatinine 0.62 lactic acid 1.5, urine analysis revealed evidence of urinary tract infection Testing in the emergency room revealed EKG done in the emergency room revealed sinus rhythm with occasional supraventricular premature complexes, x-ray of the left knee done in the emergency room revealed moderate left joint effusion, chest x-ray was done in the emergency room and revealed evidence for pulmonary edema. Patient was admitted to medical floor for further evaluation and treatment On 02/25/2024 patient's alert and oriented x 3. Repeat labs have been ordered. Carotid Doppler showing some stenosis will consult Dr. Espinal for vascular surgery. GI recommending outpatient follow-up with Dr. hall still awaiting neurology input. Current vital signs temp 97.8, heart rate 65, respiratory rate 15, blood pressure 105/51 with a pulse ox of 97% on 4 L On 02/26/2024 patient was seen and examined on the medical floor, she is alert and oriented x 3 in no apparent distress, she is complaining of shortness of breath with any activity otherwise she denies any complaints there is no fever or chills no headache or dizziness no chest pain she has occasional cough no nausea or vomiting no abdominal pain no diarrhea and no urinary symptoms, she remains on oxygen 4 L via nasal cannula, temperature is 98.0 pulse 69 respiration 19 blood pressure 126/50 pulse ox 93% on 4 L nasal cannula 02/27/2024 patient is alert and oriented 3. EEG and MRI has been ordered per neurology services. This time patient denies chest pain or shortness of breath. Patient denies nausea vomiting or diarrhea. Patient denies any urinary burning or frequency. Discharge planning to [facility] On 02/28/2024 patient was seen and examined on the medical floor she is alert and oriented in no apparent distress, there is no fever or chills no headache or dizziness no chest pain no shortness of breath no cough no nausea or vomiting no abdominal pain no diarrhea and no urinary symptoms blood pressure is low at 84/42, IV normal saline at 75 cc/h were added, cardiology consultation re quested, will follow closely. On 02/29/2024 patient is alert and oriented x 3. Awaiting cardiology input due to hypotension. Current vital signs temp 97.6, heart rate 60, blood pressure 88/55 with a pulse ox of 95% on 4 L patient denies chest pain or shortness of breath. Patient denies nausea vomiting or diarrhea. Patient denies any urinary burning or frequency On 03/01/2024 patient is alert and oriented x 3. EEG has been completed awaiting results. Per case management patient unlikely to be able to be DC'd to [facility] due to insurance. Current vital signs temp 98.0, heart rate 55, respiratory rate 17, blood pressure 118/64 with a pulse ox of 95% on 4 L patient denies chest pain or shortness of breath. Patient denies nausea vomiting or diarrhea. Patient denies any urinary burning or frequency. On 03/02/2024 patient was seen and examined on the medical floor she is alert and oriented x 3 in no apparent distress she is complaining of chest congestion and shortness of breath otherwise she denies any complaints at this time there is no fever or chills no headache or dizziness no chest pain she has occasional cough no nausea or vomiting no abdominal pain no diarrhea no urinary symptoms, at this time will discontinue IV fluid and give 2 doses of IV Lasix, will continue to monitor closely On 03/03/2024 patient is alert and oriented x 3. Patient has been started on IV Lasix. Chest x-ray showingDiffuse increased lung markings can be on the basis of pulmonary edema correlate for CHF at this time will consult cardiology services. Patient reports improvement with shortness of breath. Patient denies chest pain. Patient denies nausea vomiting or diarrhea. Patient denies any urinary burning or frequency On 03/04/2024 patient was seen and examined on the medical floor she is alert and oriented x 3 in no apparent distress, she is reporting improvement in her shortness of breath and cough otherwise she denies any complaints there is no fever or chills no headache or dizziness no chest pain, no nausea or vomiting no abdominal pain no diarrhea no blood in the stools no burning with urination no frequency or urgency and no hematuria Objective - Vital Signs Vital signs: Vital Signs Temp 97.4 F L 03/04/24 00:56 Pulse 65 03/04/24 00:56 Resp 18 03/04/24 00:56 BP 102/65 03/04/24 00:56 Pulse Ox 94 L 03/04/24 00:56 FiO2 Intake & Output 03/03/24 03/04/24 03/04/24 18:59 06:59 18:59 Output Total 550 675 Balance -550 -675 Weight 76.204 kg Output: Urine 550 675 Other: Voiding Method Bedpan # Bowel Movements 2 1 # Emeses 1 - Exam In general patient is alert and oriented x 3 in no distress HEENT head normocephalic and atraumatic Neck is supple no JVD no goiter no lymphadenopathy no carotid bruit Chest examination is clear to auscultation no crackles no wheezing Cardiac exam reveals regular heart sounds S1 and S2 no gallops no murmurs Abdomen is soft nontender no organomegaly with normal bowel sounds Extremity exam reveals no edema no cyanosis or clubbing Neurological examination reveals no gross focal deficits - Labs CBC & Chem 7: 03/03/24 03:45 03/04/24 06:27 Labs: Abnormal Lab Results - Last 24 Hours (Table) 03/03/24 03/03/24 03/04/24 Range/Units 11:46 20:45 06:27 POC Glucose (mg/dL) 117 H 163 H (70-110) mg/dL Calcium 8.5 L (8.7-10.3) mg/dL Assessment and Plan Plan: Generalized weakness with multiple falls Anemia, will check stools for Hemoccult, check iron vitamin B12 and folate level, consult gastroenterology for GI workup Urinary tract infection Underlying history of hypertension Underlying history of hyperlipidemia Underlying history of hypothyroidism Underlying history of seizure activity maintained on Keppra Underlying history of depression with anxiety disorder Chest x-ray revealing pulmonary edema, will check BNP and echocardiogram At this time patient is admitted to medical floor Home medications reviewed and reordered Neurology consultation requested Consultation for gastroenterology and neurology initiated Will check echocardiogram For DVT prophylaxis subcu Lovenox Will follow closely
--- NOTE | 2024-03-04 13:52 | P.PN ---
Subjective Progress Note Date: 03/04/24 This is a 74-year-old female patient previously seen by Dr. Genao in the office in 2021 with past medical history of PAD with previous right fem-tib bypass and amputation of the right toes, valvular heart disease, diabetes mellitus type 2, dyslipidemia, COPD, chronic pulmonary fibrosis, chronic hypoxic respiratory failure on home O2 at 4 L, obstructive sleep apnea, TIA, chronic anemia, history of squamous cell anal cancer with current lung mass that has not been worked up, tobacco use and dependence. We have been asked to evaluate the patient for hypotension. Patient apparently recently left the [facility] and presented to the hospital after she had a fall when her daughter was moving her to a wheelchair and injured her knees. Patient was admitted to the hospital on 02/22. Patient has multiple consultants in place including GI, vascular surgery, pulmonary medicine, neurology. Patient denies any shortness of breath at this time and no chest pain. Blood pressures have been on the soft side most systolic blood pressures are in the 80s up to 91. She is currently on IV fluids at 75 cc/h. Heart rate is in the 60s, pulse ox 93% on 4 L nasal cannula. EKG: Sinus rhythm with nonspecific ST changes Chest x-ray: 02/22: Correlate for pulmonary edema Laboratory studies: WBC 6.6, hemoglobin 8.5. Sodium 138, potassium 3.4, creatinine 0.6. Home cardiac medications: Aspirin 81 mg daily, Lipitor 80 mg at bedtime, Plavix 75 mg daily, Lasix 40 mg twice daily, also on levothyroxine 25 mcg daily Echocardiogram performed 01/24/2024 reveals EF of 55 to 60%, mild and regurgitation, mild to moderate mitral regurgitation with moderate mitral stenosis, moderate tricuspid regurgitation and moderate pulmonary hypertension Lexiscan Cardiolite stress test performed 05/13/2020 revealed EF of 61%, normal test 03/04/2024 Patient was seen and examined resting comfortably in bed. She feels her denzel thing is better overall. Renal function is stable. Remains on 2L nasal cannula oxygen. Lasix IV 40 mg twice a day. She has no lower extremity edema no orthopnea. Had no chest discomfort. Vital signs have been stable. Objective - Vital Signs Vital signs: Vital Signs Temp 98.7 F 03/04/24 07:59 Pulse 73 03/04/24 07:59 Resp 18 03/04/24 07:59 BP 100/46 03/04/24 07:59 Pulse Ox 93 L 03/04/24 07:59 FiO2 Intake & Output 03/03/24 03/04/24 03/04/24 18:59 06:59 18:59 Output Total 550 675 400 Balance -514 -074 -973 Weight 76.204 kg Output: Urine 550 675 400 Other: Voiding Method Bedpan # Bowel Movements 2 1 1 # Emeses 1 - Exam Physical examination: Gen: This is a 74-year-old female in no acute distress VS: reviewed HEENT: Head is atraumatic, normocephalic. Pupils equal, round. Sclerae is anicteric. NECK: Supple. No JVD. LUNGS: Diminished breath sounds to the bases. No intercostal retractions. HEART: Regular rate and rhythm. No murmur. ABDOMEN: Soft No tenderness. EXTREMITIES: No pedal edema. No calf tenderness. NEUROLOGICAL: Patient is awake, alert and oriented x3. - Labs CBC & Chem 7: 03/03/24 03:45 03/04/24 06:27 Labs: Abnormal Lab Results - Last 24 Hours (Table) 03/03/24 03/03/24 03/04/24 Range/Units 11:46 20:45 06:27 POC Glucose (mg/dL) 117 H 163 H (70-110) mg/dL Calcium 8.5 L (8.7-10.3) mg/dL Assessment and Plan Assessment: Hypotension Generalized weakness PAD with previous right fem-tib bypass and amputation of the right toes Valvular heart disease with mild to moderate MR, moderate MS, moderate TR, mild and AR Moderate pulmonary hypertension Diabetes mellitus type 2 Dyslipidemia COPD Chronic pulmonary fibrosis Chronic hypoxic respiratory failure on home O2 at 4 L Obstructive sleep apnea not on CPAP TIAs multiple Chronic anemia History of squamous cell anal cancer Lung mass History of tobacco use and dependence, recently quit Right ICA occlusion, severe left carotid bulb stenosis with 50 to 69% Acute diastolic heart failure Plan: From cardiology's perspective, medications were reviewed and we will continue the same. Switch to p.o. Lasix tomorrow. Continue to monitor intake and output, daily weights, renal function and electrolytes. Will continue to follow the patient and provide further recommendations accordingly. PILER note has been reviewed, I agree with a documented findings and plan of care. Patient was seen and examined.
[2024-03-04 16:29] LABS: Glucose,Whole Blood 133 mg/dL (70-110)
[2024-03-04] MEDS: HYDROCORTISONE 2.5% RECTAL CREAM 30 GM TUBE RECTAL SCH (17:03)
[2024-03-04 20:23] LABS: Glucose,Whole Blood 136 mg/dL (70-110)
[2024-03-05 06:58] LABS: Glucose,Whole Blood 122 mg/dL (70-110)
[2024-03-05] MEDS: FUROSEMIDE 40 MG TAB PO SCH (08:45)
--- NOTE | 2024-03-05 09:39 | P.PN ---
Subjective Progress Note Date: 03/05/24 Alexia Rubin, is a 74-year-old female who presented to [facility] emergency room with a chief complaint of generalized weakness and multiple falls, patient was recently hospitalized, and transferred to [facility] for rehabilitation, she was recently discharged home, however she continued to have severe weakness and multiple falls, she was brought back by her family to the emergency room for further evaluation and treatment and possible readmission to the retirement. She was evaluated in the emergency room vital examination on presentation revealed a temperature of 97.8 pulse 70 respiration 18 blood pressure 94/69 pulse ox 99% on room air Laboratory data revealed a white blood count of 9.4 hemoglobin 9.2 platelet count 347 sodium 136 potassium 3.3 chloride 103 CO2 26 BUN 10 creatinine 0.62 lactic acid 1.5, urine analysis revealed evidence of urinary tract infection Testing in the emergency room revealed EKG done in the emergency room revealed sinus rhythm with occasional supraventricular premature complexes, x-ray of the left knee done in the emergency room revealed moderate left joint effusion, chest x-ray was done in the emergency room and revealed evidence for pulmonary edema. Patient was admitted to medical floor for further evaluation and treatment On 02/25/2024 patient's alert and oriented x 3. Repeat labs have been ordered. Carotid Doppler showing some stenosis will consult Dr. Espinal for vascular surgery. GI recommending outpatient follow-up with Dr. hall still awaiting neurology input. Current vital signs temp 97.8, heart rate 65, respiratory rate 15, blood pressure 105/51 with a pulse ox of 97% on 4 L On 02/26/2024 patient was seen and examined on the medical floor, she is alert and oriented x 3 in no apparent distress, she is complaining of shortness of breath with any activity otherwise she denies any complaints there is no fever or chills no headache or dizziness no chest pain she has occasional cough no nausea or vomiting no abdominal pain no diarrhea and no urinary symptoms, she remains on oxygen 4 L via nasal cannula, temperature is 98.0 pulse 69 respiration 19 blood pressure 126/50 pulse ox 93% on 4 L nasal cannula 02/27/2024 patient is alert and oriented 3. EEG and MRI has been ordered per neurology services. This time patient denies chest pain or shortness of breath. Patient denies nausea vomiting or diarrhea. Patient denies any urinary burning or frequency. Discharge planning to [facility] On 02/28/2024 patient was seen and examined on the medical floor she is alert and oriented in no apparent distress, there is no fever or chills no headache or dizziness no chest pain no shortness of breath no cough no nausea or vomiting no abdominal pain no diarrhea and no urinary symptoms blood pressure is low at 84/42, IV normal saline at 75 cc/h were added, cardiology consultation re quested, will follow closely. On 02/29/2024 patient is alert and oriented x 3. Awaiting cardiology input due to hypotension. Current vital signs temp 97.6, heart rate 60, blood pressure 88/55 with a pulse ox of 95% on 4 L patient denies chest pain or shortness of breath. Patient denies nausea vomiting or diarrhea. Patient denies any urinary burning or frequency On 03/01/2024 patient is alert and oriented x 3. EEG has been completed awaiting results. Per case management patient unlikely to be able to be DC'd to [facility] due to insurance. Current vital signs temp 98.0, heart rate 55, respiratory rate 17, blood pressure 118/64 with a pulse ox of 95% on 4 L patient denies chest pain or shortness of breath. Patient denies nausea vomiting or diarrhea. Patient denies any urinary burning or frequency. On 03/02/2024 patient was seen and examined on the medical floor she is alert and oriented x 3 in no apparent distress she is complaining of chest congestion and shortness of breath otherwise she denies any complaints at this time there is no fever or chills no headache or dizziness no chest pain she has occasional cough no nausea or vomiting no abdominal pain no diarrhea no urinary symptoms, at this time will discontinue IV fluid and give 2 doses of IV Lasix, will continue to monitor closely On 03/03/2024 patient is alert and oriented x 3. Patient has been started on IV Lasix. Chest x-ray showingDiffuse increased lung markings can be on the basis of pulmonary edema correlate for CHF at this time will consult cardiology services. Patient reports improvement with shortness of breath. Patient denies chest pain. Patient denies nausea vomiting or diarrhea. Patient denies any urinary burning or frequency On 03/04/2024 patient was seen and examined on the medical floor she is alert and oriented x 3 in no apparent distress, she is reporting improvement in her shortness of breath and cough otherwise she denies any complaints there is no fever or chills no headache or dizziness no chest pain, no nausea or vomiting no abdominal pain no diarrhea no blood in the stools no burning with urination no frequency or urgency and no hematuria On 03/05/2024 patient is alert and oriented x 3. Patient complaining about right ankle pain will order x-ray. Patient marilee on IV Lasix likely will transition to p.o. Lasix today per cardiology. At this time patient denies chest pain or shortness of breath. Patient denies nausea vomiting or diarrhea. Patient denies any urinary burning or frequency Objective - Vital Signs Vital signs: Vital Signs Temp 98.2 F 03/05/24 07:15 Pulse 63 03/05/24 07:15 Resp 18 03/05/24 07:15 BP 122/69 03/05/24 07:15 Pulse Ox 92 L 03/05/24 07:15 FiO2 Intake & Output 03/04/24 03/05/24 03/05/24 18:59 06:59 18:59 Output Total 400 150 Balance -400 -150 Weight 77.5 kg Output: Urine 400 150 Other: Voiding Method Bedpan # Voids 425 1 # Bowel Movements 1 - Exam In general patient is alert and oriented x 3 in no distress HEENT head normocephalic and atraumatic Neck is supple no JVD no goiter no lymphadenopathy no carotid bruit Chest examination is clear to auscultation no crackles no wheezing Cardiac exam reveals regular heart sounds S1 and S2 no gallops no murmurs Abdomen is soft nontender no organomegaly with normal bowel sounds Extremity exam reveals no edema no cyanosis or clubbing Neurological examination reveals no gross focal deficits - Labs CBC & Chem 7: 03/03/24 03:45 03/04/24 06:27 Labs: Abnormal Lab Results - Last 24 Hours (Table) 03/04/24 03/04/24 03/04/24 Range/Units 06:27 11:43 16:25 POC Glucose (mg/dL) 125 H 133 H (70-110) mg/dL Calcium 8.5 L (8.7-10.3) mg/dL 03/04/24 03/05/24 Range/Units 20:12 06:57 POC Glucose (mg/dL) 136 H 122 H (70-110) mg/dL Calcium (8.7-10.3) mg/dL Assessment and Plan Plan: Generalized weakness with multiple falls Anemia, will check stools for Hemoccult, check iron vitamin B12 and folate level, consult gastroenterology for GI workup Urinary tract infection Underlying history of hypertension Underlying history of hyperlipidemia Underlying history of hypothyroidism Underlying history of seizure activity maintained on Keppra Underlying history of depression with anxiety disorder Chest x-ray revealing pulmonary edema, will check BNP and echocardiogram At this time patient is admitted to medical floor Home medications reviewed and reordered Neurology consultation requested Consultation for gastroenterology and neurology initiated Will check echocardiogram For DVT prophylaxis subcu Lovenox Will follow closely
[2024-03-05 09:58] LABS: Basophils # (A) 0.04 X 10*3/uL (0.00-0.10); Basophils % (A) 0.5 %; Eosinophils # (A) 0.28 X 10*3/uL (0.04-0.35); Eosinophils % (A) 3.5 %; HCT 28.1 % (37.2-46.3); HGB 8.5 g/dL (12.0-15.0); Lymphocytes % (A) 26.6 %; MCH 27.4 pg (27.0-32.0); MCHC 30.2 g/dL (32.0-37.0); MCV 90.6 FL (80.0-97.0); Mean Platelet Volume 10.5 FL (9.5-12.2); Monocytes # (A) 0.62 X 10*3/uL (0.20-1.00); Monocytes % (A) 7.9 %; NRBC Per 100 WBC 0 X 10*3/uL (0.00-0.01); Neutrophils # (A) 4.82 X 10*3/uL (1.80-7.70); Neutrophils % (A) 61.1 %; Platelet Count 411 X 10*3/uL (140-440); RDW 17.3 % (11.5-14.5); WBC 7.89 X 10*3/uL (4.50-10.00)
[2024-03-05 09:59] LABS: ALT 25 U/L (8-44); AST 40 U/L (13-35); Albumin/Globulin Ratio 1.36 Ratio (1.60-3.17); Alkaline Phosphatase 78 U/L (41-126); BUN/Creat Ratio 17.33 Ratio (12.00-20.00); Blood Urea Nitrogen 10.4 mg/dL (9.0-27.0); Calcium 8.4 mg/dL (8.7-10.3); Carbon Dioxide 25.8 mmol/L (21.6-31.8); Chloride 102 mmol/L (96-109); Globulin 2.2 g/dL (1.6-3.3); Glucose 101 mg/dL (70-110); Potassium 3.7 mmol/L (3.5-5.5); Sodium 138 mmol/L (135-145); Total Bilirubin 0.3 mg/dL (0.3-1.2); Total Protein 5.2 g/dL (6.2-8.2)
--- NOTE | 2024-03-05 10:56 | P.PN ---
Subjective Progress Note Date: 03/05/24 I was asked to evaluate this patient regarding her abnormal CAT scan of the chest. The patient is known to me. She follows up with my partner in the office. She has history of chronic pulmonary fibrosis. She was also history of anal cancer and she was noted to have a right lower lobe subpleural opacity that showed some limited activity on the previous PET scan. There was concern for malignancy. I was approached the biopsy this abnormality. Nevertheless, the findings on the CAT scan were quite nonspecific and we decided to monitor and continue surveillance with another CAT scan of the chest and a PET/CT. Noted the patient underwent a follow-up CAT scan of the chest on 01/26/2024. That time, the patient was noted to have a moderate-sized right-sided pleural effusion. Chronic fibrotic changes bilaterally. The right lower lobe subpleural opacity was still present and there was note of right hilar and similar mediastinal lymphadenopathy. At that point, the patient was given a thoracentesis of the right lung. This was done during her hospital stay and the pleural fluid that was drained turned out to be an exudate with negative cytology. The procedure was done without any complications. A total of 1 L of dark yellowish fluid was aspirated and the fluid cytology was negative for malignancy. No subsequent pneumothorax. In any rate, the patient was supposed to have a PET/CT and this is scheduled to be done on 02/27/2024. Meanwhile, the patient gets hospitalized again with fall. She felt very weak and she landed on her knees bilaterally. She has undergone previous bilateral knee replacements. No reported fractures. No focal neurological deficits. She has carotid Dopp lers that reported occlusion in the right ICA and moderate disease in the left ICA. Vascular surgery has been consulted regarding carotid artery stenosis. Along with pulmonary fibrosis, she has diabetes mellitus, hyperlipidemia, squamous cell anal cancer and anemia of chronic disease. She is oxygen dependent and currently she is on oxygen at 4 L nasal cannula. The white cell count is at 10.2 with a hemoglobin of 10.3 and a platelet count of 318. Sodium levels at 134, BUN is 11 with a creatinine of 0.6. No cough. No sputum production. No chest tightness. No wheezing. Repeat chest x-ray that was done during this current admission shows chronic fibrotic changes bilaterally without any evidence of fluid recurrence. Her previous echocardiogram done on 01/25/2024 showed a preserved LV function, mild to moderate mitral regurgitation and moderate mitral stenosis and moderate degree of pulmonary hypertension with tricuspid regurgitation. The CAT scan of the brain done on 02/25/2024 showed no acute intracranial process in the remote included injury with nonspecific white matter changes and chronic microangiopathy. On 02/26/2024, the patient is being seen for a follow-up. No new complaints. The patient was seen by neurology. Unable to do MRI of the brain as the patient has a pain stimulator. EEG was ordered. Essentially The Same Medications. White Cell Count Is at 8.9, Hemoglobin 9.6, Platelet Count of 402. Electrolytes Are All within Normal Limits. On 02/27/2024, seen the patient for a follow-up. No respiratory difficulties. She continues to have generalized weakness. Alert oriented x 3. MRI of the brain and EEG is also ordered by neurology. Labs are stable. Hemoglobin is at 9.6, the white cell count is at 8.9, electrolytes are all within normal limits. Normal LFTs. The patient is seen today February 28, 2024 in follow-up on the regular medical floor. She is currently resting in bed. Awake and alert in no acute distress. Maintaining good O2 saturation in the mid 90s on 4 L/min per nasal cannula. She is afebrile. Urine culture revealed no growth. White count 6.6. Hemoglobin 9.1. Platelets 381. Sodium 138. Potassium 3.7. Bicarb 24. BUN 9. Creatinine 0.7. Glucose 102. She is currently on ceftriaxone. Normal saline at 75 mL/h. The patient is seen today February 29, 2024 in follow-up on the regular medical floor. She is sitting up in bed. Awake and alert in no acute distress. O2 saturations in the 90s on 4 L/min per nasal cannula. She is afebrile. Culture revealed no growth. White count 6.6. Hemoglobin 8.5. Platelets 380. Sodium 138. Potassium 3.4. Bicarb 25. BUN 8. Creatinine 0.6. Troponin negative. Procalcitonin negative at 0.07. Rocephin discontinued. She remains on Lovenox for DVT prophylaxis. Normal saline at 75 mL/h. The patient is seen today March 01, 2024 in follow-up on the regular medical floor. She is currently resting in bed. Awake and alert in no acute distress. She is maintaining good O2 saturations in the 90s on 4 L/min per nasal cannula. She has normal saline at 75 mL/h. Lovenox for DVT prophylaxis. White count 7.9. Hemoglobin 8.6. Platelets 400. Sodium 138. Potassium 3.8. Bicarb 24. BUN 8. Creatinine 0.6. Glucose 100. The patient is seen today March 02, 2024 in follow-up on the regular medical floor. She is resting comfortably in bed. Awake and alert in no acute distress. Maintaining O2 saturations in the 90s on 6 L/min per nasal cannula. She has been afebrile. Hemodynamically stable. Follow-up chest x-ray pending. Echocardiogram pending. Glucose 136. Lovenox for DVT prophylaxis. Normal saline at 75 mL/h. The patient is seen today March 03, 2024 in follow-up on the regular medical floor. She is sitting up in bed. Awake and alert in no acute distress. Denies any worsening shortness of breath, cough or congestion. Feeling better today compared to yesterday. She is maintaining O2 saturations in the 90s on 6 L high flow nasal cannula. She has been afebrile. Hemodynamically stable. Currently in a -1.8 L balance. White count 9.2. Hemoglobin 8.2. Platelets 386. Sodium 137. Potassium 3.2. Bicarb 26. BUN 8. Creatinine 0.6. She remains on IV diuretics. Lovenox for DVT prophylaxis. The patient is seen today March 04, 2024 in follow-up on the regular medical floor. She is awake and alert in no acute distress. Sitting up in bed. Denies any worsening shortness of breath, cough or congestion. Feeling better. Diuresing well from the IV Lasix. Remains in a negative balance. Urine culture revealed no growth. Sodium 137. Potassium 3.5. Bicarb 26. BUN 10. Creatinine 0.6. Glucose 104. Lovenox for DVT prophylaxis. The patient is seen today March 05, 2024 in follow-up on the regular medical floor. She is currently sitting up in a chair. Awake and alert in no acute distress. Denies any worsening shortness of breath, cough or congestion. She is maintaining good O2 saturations in the 90s on 2 L/min per nasal cannula. She remains on diuretics. Continued on bronchodilators. Lovenox for DVT prophylaxis. White count 7.8. Hemoglobin 8.5. Platelets 411. Sodium 138. Potassium 3.7. Bicarb 26. BUN 10. Creatinine 0.6. Glucose 101. Objective - Vital Signs Vital signs: Vital Signs Temp 98.2 F 03/05/24 07:15 Pulse 63 03/05/24 07:15 Resp 18 03/05/24 07:15 BP 122/69 03/05/24 07:15 Pulse Ox 92 L 03/05/24 07:15 FiO2 Intake & Output 03/04/24 03/05/24 03/05/24 18:59 06:59 18:59 Output Total 400 150 Balance -400 -150 Weight 77.5 kg Output: Urine 400 150 Other: Voiding Method Bedpan # Voids 425 1 # Bowel Movements 1 - Exam GENERAL EXAM: Alert, oriented 74-year-old female, up in a chair, on 2 L nasal cannula, in no apparent distress. HEAD: Normocephalic. EYES: Normal reaction of pupils, equal size. NOSE: Clear with pink turbinates. THROAT: No erythema or exudates. NECK: No masses, no JVD. CHEST: No chest wall deformity. LUNGS: Equal air entry with scattered rhonchi, crackles in the right lung base. CVS: S1 and S2 normal with no audible murmur, regular rhythm. ABDOMEN: No hepatosplenomegaly, normal bowel sounds, no guarding or rigidity. SPINE: No scoliosis or deformity SKIN: No rashes CENTRAL NERVOUS SYSTEM: No focal deficits, tone is normal in all 4 extremities. EXTREMITIES: Transmetatarsal amputation on the right foot. There is no peripheral edema. No clubbing, no cyanosis. Peripheral pulses are intact. - Labs CBC & Chem 7: 03/05/24 03:08 03/05/24 03:08 Labs: Abnormal Lab Results - Last 24 Hours (Table) 03/04/24 03/04/24 03/04/24 Range/Units 11:43 16:25 20:12 RBC (4.10-5.20) X 10*6/uL Hgb (12.0-15.0) g/dL Hct (37.2-46.3) % MCHC (32.0-37.0) g/dL RDW (11.5-14.5) % POC Glucose (mg/dL) 125 H 133 H 136 H (70-110) mg/dL Calcium (8.7-10.3) mg/dL AST (13-35) U/L Total Protein (6.2-8.2) g/dL Albumin (3.8-4.9) g/dL Albumin/Globulin Ratio (1.60-3.17) Ratio 03/05/24 03/05/24 03/05/24 Range/Units 03:08 03:08 06:57 RBC 3.10 L (4.10-5.20) X 10*6/uL Hgb 8.5 L (12.0-15.0) g/dL Hct 28.1 L (37.2-46.3) % MCHC 30.2 L (32.0-37.0) g/dL RDW 17.3 H (11.5-14.5) % POC Glucose (mg/dL) 122 H (70-110) mg/dL Calcium 8.4 L (8.7-10.3) mg/dL AST 40 H (13-35) U/L Total Protein 5.2 L (6.2-8.2) g/dL Albumin 3.0 L (3.8-4.9) g/dL Albumin/Globulin Ratio 1.36 L (1.60-3.17) Ratio Assessment and Plan Assessment: Acute on chronic hypoxemic respiratory failure secondary to chronic pulmonary fibrosis, diastolic congestive heart failure, currently on 2 L of oxygen by nasal cannula. 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 Awaiting a follow-up PET/CT on 02/27/2024. Noted the patient also has some nonspecific right hilar than mediastinal lymphadenopathy that is being monitored. The patient has a 3 cm masslike consolidative density in the right lower lobe being followed in the outpatient setting. A PET scan from August 19, 2023 revealed right lower lobe pulmonary nodule with increased metabolic activity compatible with malignancy. There is at least 1 right pulmonary hilum lymph node suspicious for metastatic disease. Extensive interstitial opacities along suspicious for ILD. CT scan of the chest was done yesterday 10/08/2023 that revealed similar pleural-based mass of the right lower lobe which is essentially unchanged in overall size and appearance. Possible minimal early cavitation. Pulmonary fibrosis at least moderate in degree. Plan is for follow-up PET scan Chronic hypoxic respiratory failure, normally on 4 L History of anal cancer. Treated with chemotherapy and radiation therapy Right-sided pleural effusion, exudate, post thoracentesis January 28 2024 without any recurrence. A total of 1 L of fluid was aspirated Valvular heart disease with mild to moderate mitral stenosis moderate degree of pulmonary hypertension based on most recent echocardiogram. Patient has preserved LV function History of CVA/TIA x 3 with evidence of carotid artery disease with left-sided stenosis in the order of 50 to 69% Obstructive sleep apnea, no CPAP therapy for now Peripheral vascular disease, and the patient has undergone previous right fem-tib bypass and the patient has previous right toe amputations Nephrolithiasis Diabetes mellitus type 2 Hyperlipidemia Hypothyroidism Former smoker Generalized weakness and frequent falls without any fracture Plan: The patient was seen and evaluated Labs and medications reviewed Transitioned to oral diuretics Titrate down the FiO2 as tolerated Increase her activity as tolerated Follow-up chest x-ray in a.m. I have personally seen and examined the patient, performed the documentation and the assessment and plan as written. Number of minutes spent on the visit: 10 Dictation was produced using [employer] dictation software. Please excuse any grammatical, word or spelling errors.
--- NOTE | 2024-03-05 11:28 | XR ---
EXAMINATION TYPE: XR ankle complete RT DATE OF EXAM: 03/05/2024 11:19 AM COMPARISON: None. CLINICAL INDICATION: Female, 74 years old with history of pain and weakness, TECHNIQUE: 3 view(s) obtained. FINDINGS: Ankle mortise is intact. Soft tissues are normal. No acute fractures evident. Plantar calcaneal heel spur is present. Follow-up exam can be performed 7-10 days from acute trauma for continued pain. IMPRESSION: 1. No acute osseous abnormality right ankle [facility] Naida Mukherjee, , 03/05/2024 11:26 AM
[2024-03-05 11:41] LABS: Glucose,Whole Blood 118 mg/dL (70-110)
--- NOTE | 2024-03-05 11:45 | P.PN ---
Subjective Progress Note Date: 03/05/24 This is a 74-year-old female patient previously seen by Dr. Genao in the office in 2021 with past medical history of PAD with previous right fem-tib bypass and amputation of the right toes, valvular heart disease, diabetes mellitus type 2, dyslipidemia, COPD, chronic pulmonary fibrosis, chronic hypoxic respiratory failure on home O2 at 4 L, obstructive sleep apnea, TIA, chronic anemia, history of squamous cell anal cancer with current lung mass that has not been worked up, tobacco use and dependence. We have been asked to evaluate the patient for hypotension. Patient apparently recently left the senior care and presented to the hospital after she had a fall when her daughter was moving her to a wheelchair and injured her knees. Patient was admitted to the hospital on 02/22. Patient has multiple consultants in place including GI, vascular surgery, pulmonary medicine, neurology. Patient denies any shortness of breath at this time and no chest pain. Blood pressures have been on the soft side most systolic blood pressures are in the 80s up to 91. She is currently on IV fluids at 75 cc/h. Heart rate is in the 60s, pulse ox 93% on 4 L nasal cannula. EKG: Sinus rhythm with nonspecific ST changes Chest x-ray: 02/22: Correlate for pulmonary edema Laboratory studies: WBC 6.6, hemoglobin 8.5. Sodium 138, potassium 3.4, creatinine 0.6. Home cardiac medications: Aspirin 81 mg daily, Lipitor 80 mg at bedtime, Plavix 75 mg daily, Lasix 40 mg twice daily, also on levothyroxine 25 mcg daily Echocardiogram performed 01/24/2024 reveals EF of 55 to 60%, mild and regurgitation, mild to moderate mitral regurgitation with moderate mitral stenosis, moderate tricuspid regurgitation and moderate pulmonary hypertension Lexiscan Cardiolite stress test performed 05/13/2020 revealed EF of 61%, normal test 03/04/2024 Patient was seen and examined resting comfortably in bed. She feels her denzel thing is better overall. Renal function is stable. Remains on 2L nasal cannula oxygen. Lasix IV 40 mg once a day. She has no lower extremity edema no orthopnea. Had no chest discomfort. Vital signs have been stable. 03/05/2024 Patient was seen and examined resting comfortably in a chair. She feels her breathing is stable. Renal function is stable. She has been switched to oral Lasix. She has no lower extremity edema or orthopnea. She has had no chest discomfort. Vital signs are stable. She is concerned about being discharged as she says she has no place to go. Objective - Vital Signs Vital signs: Vital Signs Temp 98.2 F 03/05/24 07:15 Pulse 63 03/05/24 07:15 Resp 18 03/05/24 07:15 BP 122/69 03/05/24 07:15 Pulse Ox 92 L 03/05/24 07:15 FiO2 Intake & Output 03/04/24 03/05/24 03/05/24 18:59 06:59 18:59 Output Total 400 150 Balance -400 -150 Weight 77.5 kg Output: Urine 400 150 Other: Voiding Method Bedpan # Voids 425 1 # Bowel Movements 1 - Exam Physical examination: Gen: This is a 74-year-old female in no acute distress VS: reviewed HEENT: Head is atraumatic, normocephalic. Pupils equal, round. Sclerae is anicteric. NECK: Supple. No JVD. LUNGS: Diminished breath sounds to the bases. No intercostal retractions. HEART: Regular rate and rhythm. No murmur. ABDOMEN: Soft No tenderness. EXTREMITIES: No pedal edema. No calf tenderness. NEUROLOGICAL: Patient is awake, alert and oriented x3. - Labs CBC & Chem 7: 03/05/24 03:08 03/05/24 03:08 Labs: Abnormal Lab Results - Last 24 Hours (Table) 03/04/24 03/04/24 03/04/24 Range/Units 11:43 16:25 20:12 RBC (4.10-5.20) X 10*6/uL Hgb (12.0-15.0) g/dL Hct (37.2-46.3) % MCHC (32.0-37.0) g/dL RDW (11.5-14.5) % POC Glucose (mg/dL) 125 H 133 H 136 H (70-110) mg/dL Calcium (8.7-10.3) mg/dL AST (13-35) U/L Total Protein (6.2-8.2) g/dL Albumin (3.8-4.9) g/dL Albumin/Globulin Ratio (1.60-3.17) Ratio 03/05/24 03/05/24 03/05/24 Range/Units 03:08 03:08 06:57 RBC 3.10 L (4.10-5.20) X 10*6/uL Hgb 8.5 L (12.0-15.0) g/dL Hct 28.1 L (37.2-46.3) % MCHC 30.2 L (32.0-37.0) g/dL RDW 17.3 H (11.5-14.5) % POC Glucose (mg/dL) 122 H (70-110) mg/dL Calcium 8.4 L (8.7-10.3) mg/dL AST 40 H (13-35) U/L Total Protein 5.2 L (6.2-8.2) g/dL Albumin 3.0 L (3.8-4.9) g/dL Albumin/Globulin Ratio 1.36 L (1.60-3.17) Ratio 03/05/24 Range/Units 11:38 RBC (4.10-5.20) X 10*6/uL Hgb (12.0-15.0) g/dL Hct (37.2-46.3) % MCHC (32.0-37.0) g/dL RDW (11.5-14.5) % POC Glucose (mg/dL) 118 H (70-110) mg/dL Calcium (8.7-10.3) mg/dL AST (13-35) U/L Total Protein (6.2-8.2) g/dL Albumin (3.8-4.9) g/dL Albumin/Globulin Ratio (1.60-3.17) Ratio Assessment and Plan Assessment: Hypotension Generalized weakness PAD with previous right fem-tib bypass and amputation of the right toes Valvular heart disease with mild to moderate MR, moderate MS, moderate TR, mild and AR Moderate pulmonary hypertension Diabetes mellitus type 2 Dyslipidemia COPD Chronic pulmonary fibrosis Chronic hypoxic respiratory failure on home O2 at 4 L Obstructive sleep apnea not on CPAP TIAs multiple Chronic anemia History of squamous cell anal cancer Lung mass History of tobacco use and dependence, recently quit Right ICA occlusion, severe left carotid bulb stenosis with 50 to 69% Acute diastolic heart failure Plan: From cardiology's perspective, medications were reviewed and we will continue the same. From our standpoint patient may be discharged home once cleared by primary. She will follow-up in the office with Dr. Genao as an outpatient. 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 Patient was seen and examined.
[2024-03-05 16:49] LABS: Glucose,Whole Blood 96 mg/dL (70-110)
[2024-03-05 19:27] LABS: Glucose,Whole Blood 118 mg/dL (70-110)
[2024-03-06 07:02] LABS: Glucose,Whole Blood 109 mg/dL (70-110)
--- NOTE | 2024-03-06 08:24 | XR ---
EXAMINATION TYPE: XR chest 1V portable DATE OF EXAM: 03/06/2024 CLINICAL HISTORY: Difficulty breathing progress study. TECHNIQUE: Single AP portable upright view of the chest is obtained. COMPARISON: Chest x-ray from one day earlier FINDINGS: Coarse infiltrates throughout both lung valentin remain unchanged. Cardiac mediastinal silho uette is stable. IMPRESSION: Overall stable findings, [facility], Workstation: 3, 03/06/2024 8:22 AM
[2024-03-06 08:46] LABS: Basophils # (A) 0.06 X 10*3/uL (0.00-0.10); Basophils % (A) 0.8 %; Eosinophils # (A) 0.36 X 10*3/uL (0.04-0.35); Eosinophils % (A) 4.8 %; HCT 29.8 % (37.2-46.3); Lymphocytes # (A) 2.21 X 10*3/uL (0.90-5.00); Lymphocytes % (A) 29.2 %; MCH 27.4 pg (27.0-32.0); MCHC 30.2 g/dL (32.0-37.0); MCV 90.6 FL (80.0-97.0); Mean Platelet Volume 10.2 FL (9.5-12.2); Monocytes # (A) 0.61 X 10*3/uL (0.20-1.00); Monocytes % (A) 8.1 %; NRBC Per 100 WBC 0 X 10*3/uL (0.00-0.01); Neutrophils % (A) 56.7 %; Platelet Count 435 X 10*3/uL (140-440); RBC 3.29 X 10*6/uL (4.10-5.20); RDW 17.2 % (11.5-14.5); WBC 7.57 X 10*3/uL (4.50-10.00)
[2024-03-06 08:49] LABS: ALT 27 U/L (8-44); AST 43 U/L (13-35); Albumin/Globulin Ratio 1.36 Ratio (1.60-3.17); Alkaline Phosphatase 81 U/L (41-126); Blood Urea Nitrogen 9.6 mg/dL (9.0-27.0); Calcium 8.5 mg/dL (8.7-10.3); Chloride 102 mmol/L (96-109); Globulin 2.2 g/dL (1.6-3.3); Glucose 95 mg/dL (70-110); Potassium 3.9 mmol/L (3.5-5.5); Sodium 138 mmol/L (135-145); Total Bilirubin 0.3 mg/dL (0.3-1.2); Total Protein 5.2 g/dL (6.2-8.2)
[2024-03-06 11:41] LABS: Glucose,Whole Blood 116 mg/dL (70-110)
--- NOTE | 2024-03-06 12:26 | P.PN ---
Subjective Progress Note Date: 03/06/24 I was asked to evaluate this patient regarding her abnormal CAT scan of the chest. The patient is known to me. She follows up with my partner in the office. She has history of chronic pulmonary fibrosis. She was also history of anal cancer and she was noted to have a right lower lobe subpleural opacity that showed some limited activity on the previous PET scan. There was concern for malignancy. I was approached the biopsy this abnormality. Nevertheless, the findings on the CAT scan were quite nonspecific and we decided to monitor and continue surveillance with another CAT scan of the chest and a PET/CT. Noted the patient underwent a follow-up CAT scan of the chest on 01/26/2024. That time, the patient was noted to have a moderate-sized right-sided pleural effusion. Chronic fibrotic changes bilaterally. The right lower lobe subpleural opacity was still present and there was note of right hilar and similar mediastinal lymphadenopathy. At that point, the patient was given a thoracentesis of the right lung. This was done during her hospital stay and the pleural fluid that was drained turned out to be an exudate with negative cytology. The procedure was done without any complications. A total of 1 L of dark yellowish fluid was aspirated and the fluid cytology was negative for malignancy. No subsequent pneumothorax. In any rate, the patient was supposed to have a PET/CT and this is scheduled to be done on 02/27/2024. Meanwhile, the patient gets hospitalized again with fall. She felt very weak and she landed on her knees bilaterally. She has undergone previous bilateral knee replacements. No reported fractures. No focal neurological deficits. She has carotid Dopp lers that reported occlusion in the right ICA and moderate disease in the left ICA. Vascular surgery has been consulted regarding carotid artery stenosis. Along with pulmonary fibrosis, she has diabetes mellitus, hyperlipidemia, squamous cell anal cancer and anemia of chronic disease. She is oxygen dependent and currently she is on oxygen at 4 L nasal cannula. The white cell count is at 10.2 with a hemoglobin of 10.3 and a platelet count of 318. Sodium levels at 134, BUN is 11 with a creatinine of 0.6. No cough. No sputum production. No chest tightness. No wheezing. Repeat chest x-ray that was done during this current admission shows chronic fibrotic changes bilaterally without any evidence of fluid recurrence. Her previous echocardiogram done on 01/25/2024 showed a preserved LV function, mild to moderate mitral regurgitation and moderate mitral stenosis and moderate degree of pulmonary hypertension with tricuspid regurgitation. The CAT scan of the brain done on 02/25/2024 showed no acute intracranial process in the remote included injury with nonspecific white matter changes and chronic microangiopathy. On 02/26/2024, the patient is being seen for a follow-up. No new complaints. The patient was seen by neurology. Unable to do MRI of the brain as the patient has a pain stimulator. EEG was ordered. Essentially The Same Medications. White Cell Count Is at 8.9, Hemoglobin 9.6, Platelet Count of 402. Electrolytes Are All within Normal Limits. On 02/27/2024, seen the patient for a follow-up. No respiratory difficulties. She continues to have generalized weakness. Alert oriented x 3. MRI of the brain and EEG is also ordered by neurology. Labs are stable. Hemoglobin is at 9.6, the white cell count is at 8.9, electrolytes are all within normal limits. Normal LFTs. The patient is seen today February 28, 2024 in follow-up on the regular medical floor. She is currently resting in bed. Awake and alert in no acute distress. Maintaining good O2 saturation in the mid 90s on 4 L/min per nasal cannula. She is afebrile. Urine culture revealed no growth. White count 6.6. Hemoglobin 9.1. Platelets 381. Sodium 138. Potassium 3.7. Bicarb 24. BUN 9. Creatinine 0.7. Glucose 102. She is currently on ceftriaxone. Normal saline at 75 mL/h. The patient is seen today February 29, 2024 in follow-up on the regular medical floor. She is sitting up in bed. Awake and alert in no acute distress. O2 saturations in the 90s on 4 L/min per nasal cannula. She is afebrile. Culture revealed no growth. White count 6.6. Hemoglobin 8.5. Platelets 380. Sodium 138. Potassium 3.4. Bicarb 25. BUN 8. Creatinine 0.6. Troponin negative. Procalcitonin negative at 0.07. Rocephin discontinued. She remains on Lovenox for DVT prophylaxis. Normal saline at 75 mL/h. The patient is seen today March 01, 2024 in follow-up on the regular medical floor. She is currently resting in bed. Awake and alert in no acute distress. She is maintaining good O2 saturations in the 90s on 4 L/min per nasal cannula. She has normal saline at 75 mL/h. Lovenox for DVT prophylaxis. White count 7.9. Hemoglobin 8.6. Platelets 400. Sodium 138. Potassium 3.8. Bicarb 24. BUN 8. Creatinine 0.6. Glucose 100. The patient is seen today March 02, 2024 in follow-up on the regular medical floor. She is resting comfortably in bed. Awake and alert in no acute distress. Maintaining O2 saturations in the 90s on 6 L/min per nasal cannula. She has been afebrile. Hemodynamically stable. Follow-up chest x-ray pending. Echocardiogram pending. Glucose 136. Lovenox for DVT prophylaxis. Normal saline at 75 mL/h. The patient is seen today March 03, 2024 in follow-up on the regular medical floor. She is sitting up in bed. Awake and alert in no acute distress. Denies any worsening shortness of breath, cough or congestion. Feeling better today compared to yesterday. She is maintaining O2 saturations in the 90s on 6 L high flow nasal cannula. She has been afebrile. Hemodynamically stable. Currently in a -1.8 L balance. White count 9.2. Hemoglobin 8.2. Platelets 386. Sodium 137. Potassium 3.2. Bicarb 26. BUN 8. Creatinine 0.6. She remains on IV diuretics. Lovenox for DVT prophylaxis. The patient is seen today March 04, 2024 in follow-up on the regular medical floor. She is awake and alert in no acute distress. Sitting up in bed. Denies any worsening shortness of breath, cough or congestion. Feeling better. Diuresing well from the IV Lasix. Remains in a negative balance. Urine culture revealed no growth. Sodium 137. Potassium 3.5. Bicarb 26. BUN 10. Creatinine 0.6. Glucose 104. Lovenox for DVT prophylaxis. The patient is seen today March 05, 2024 in follow-up on the regular medical floor. She is currently sitting up in a chair. Awake and alert in no acute distress. Denies any worsening shortness of breath, cough or congestion. She is maintaining good O2 saturations in the 90s on 2 L/min per nasal cannula. She remains on diuretics. Continued on bronchodilators. Lovenox for DVT prophylaxis. White count 7.8. Hemoglobin 8.5. Platelets 411. Sodium 138. Potassium 3.7. Bicarb 26. BUN 10. Creatinine 0.6. Glucose 101. The patient is seen today March 06, 2024 in follow-up on the regular medical floor. She is resting comfortably in bed. Awake and alert in no acute d istress. Maintaining O2 saturations in the 90s on 4 L/min per nasal cannula. She denies any worsening shortness of breath, cough or congestion. Chest x-ray reveals coarse infiltrates bilaterally. Unchanged. Urine culture reveals no growth. White count 7.5. Hemoglobin 9.0. Platelets 435. Sodium 138. Potassium 3.9. Bicarb 26. BUN 10. Creatinine 0.6. Glucose 95. She is continued on diuretics. Lovenox for DVT prophylaxis. Objective - Vital Signs Vital signs: Vital Signs Temp 98 F 03/06/24 07:15 Pulse 66 03/06/24 07:15 Resp 17 03/06/24 07:15 BP 125/68 03/06/24 07:15 Pulse Ox 95 03/06/24 07:15 FiO2 Intake & Output 03/05/24 03/06/24 03/06/24 18:59 06:59 18:59 Intake Total 540 Balance 540 Weight 78.3 kg Intake: Oral 540 Other: Voiding Method Bedpan # Voids 6 # Bowel Movements 1 - Exam GENERAL EXAM: Alert, 74-year-old female, on 4 L nasal cannula, in no apparent distress. HEAD: Normocephalic. EYES: Normal reaction of pupils, equal size. NOSE: Clear with pink turbinates. THROAT: No erythema or exudates. NECK: No masses, no JVD. CHEST: No chest wall deformity. LUNGS: Equal air entry with scattered rhonchi, crackles in the right lung base. CVS: S1 and S2 normal with no audible murmur, regular rhythm. ABDOMEN: No hepatosplenomegaly, normal bowel sounds, no guarding or rigidity. SPINE: No scoliosis or deformity SKIN: No rashes CENTRAL NERVOUS SYSTEM: No focal deficits, tone is normal in all 4 extremities. EXTREMITIES: Transmetatarsal amputation on the right foot. There is no peripher al edema. No clubbing, no cyanosis. Peripheral pulses are intact. - Labs CBC & Chem 7: 03/06/24 02:40 03/06/24 02:40 Labs: Abnormal Lab Results - Last 24 Hours (Table) 03/05/24 03/06/24 03/06/24 Range/Units 19:25 02:40 02:40 RBC 3.29 L (4.10-5.20) X 10*6/uL Hgb 9.0 L (12.0-15.0) g/dL Hct 29.8 L (37.2-46.3) % MCHC 30.2 L (32.0-37.0) g/dL RDW 17.2 H (11.5-14.5) % Eosinophils # 0.36 H (0.04-0.35) X 10*3/uL POC Glucose (mg/dL) 118 H (70-110) mg/dL Calcium 8.5 L (8.7-10.3) mg/dL AST 43 H (13-35) U/L Total Protein 5.2 L (6.2-8.2) g/dL Albumin 3.0 L (3.8-4.9) g/dL Albumin/Globulin Ratio 1.36 L (1.60-3.17) Ratio 03/06/24 Range/Units 11:40 RBC (4.10-5.20) X 10*6/uL Hgb (12.0-15.0) g/dL Hct (37.2-46.3) % MCHC (32.0-37.0) g/dL RDW (11.5-14.5) % Eosinophils # (0.04-0.35) X 10*3/uL POC Glucose (mg/dL) 116 H (70-110) mg/dL Calcium (8.7-10.3) mg/dL AST (13-35) U/L Total Protein (6.2-8.2) g/dL Albumin (3.8-4.9) g/dL Albumin/Globulin Ratio (1.60-3.17) Ratio Assessment and Plan Assessment: Acute on chronic hypoxemic respiratory failure secondary to chronic pulmonary fibrosis, diastolic congestive heart failure, currently on 4 L of oxygen by nasal cannula. 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 Awaiting a follow-up PET/CT on 02/27/2024. Noted the patient also has some nonspecific right hilar than mediastinal lymphadenopathy that is being monitored. The patient has a 3 cm masslike consolidative density in the right lower lobe being followed in the outpatient setting. A PET scan from August 19, 2023 revealed right lower lobe pulmonary nodule with increased metabolic activity compatible with malignancy. There is at least 1 right pulmonary hilum lymph node suspicious for metastatic disease. Extensive interstitial opacities along suspicious for ILD. CT scan of the chest was done yesterday 10/08/2023 that revealed similar pleural-based mass of the right lower lobe which is essentially unchanged in overall size and appearance. Possible minimal early cavitation. Pulmonary fibrosis at least moderate in degree. Plan is for follow-up PET scan Chronic hypoxic respiratory failure, normally on 4 L History of anal cancer. Treated with chemotherapy and radiation therapy Right-sided pleural effusion, exudate, post thoracentesis January 28 2024 without any recurrence. A total of 1 L of fluid was aspirated Valvular heart disease with mild to moderate mitral stenosis moderate degree of pulmonary hypertension based on most recent echocardiogram. Patient has preserved LV function History of CVA/TIA x 3 with evidence of carotid artery disease with left-sided stenosis in the order of 50 to 69% Obstructive sleep apnea, no CPAP therapy for now Peripheral vascular disease, and the patient has undergone previous right fem- tib bypass and the patient has previous right toe amputations Nephrolithiasis Diabetes mellitus type 2 Hyperlipidemia Hypothyroidism Former smoker Generalized weakness and frequent falls without any fracture Plan: The patient was seen and evaluated Chest x-ray, labs and medications reviewed Continue the current treatment plan Increase her activity as tolerated Discharge planning in place I have personally seen and examined the patient, performed the documentation and the assessment and plan as written. Number of minutes spent on the visit: 10 Dictation was produced using [employer] software. Please excuse any grammatical, word or spelling errors.
[2024-03-06 16:16] LABS: Glucose,Whole Blood 117 mg/dL (70-110)
--- NOTE | 2024-03-06 17:54 | P.PN ---
Subjective Progress Note Date: 03/06/24 Alexia Rubin, is a 74-year-old female who presented to [facility] emergency room with a chief complaint of generalized weakness and multiple falls, patient was recently hospitalized, and transferred to [facility] for rehabilitation, she was recently discharged home, however she continued to have severe weakness and multiple falls, she was brought back by her family to the emergency room for further evaluation and treatment and [facility]. She was evaluated in the emergency room vital examination on presentation revealed a temperature of 97.8 pulse 70 respiration 18 blood pressure 94/69 pulse ox 99% on room air Laboratory data revealed a white blood count of 9.4 hemoglobin 9.2 platelet count 347 sodium 136 potassium 3.3 chloride 103 CO2 26 BUN 10 creatinine 0.62 lactic acid 1.5, urine analysis revealed evidence of urinary tract infection Testing in the emergency room revealed EKG done in the emergency room revealed sinus rhythm with occasional supraventricular premature complexes, x-ray of the left knee done in the emergency room revealed moderate left joint effusion, chest x-ray was done in the emergency room and revealed evidence for pulmonary edema. Patient was admitted to medical floor for further evaluation and treatment On 02/25/2024 patient's alert and oriented x 3. Repeat labs have been ordered. Carotid Doppler showing some stenosis will consult Dr. Espinal for vascular surgery. GI recommending outpatient follow-up with Dr. hall still awaiting neurology input. Current vital signs temp 97.8, heart rate 65, respiratory rate 15, blood pressure 105/51 with a pulse ox of 97% on 4 L On 02/26/2024 patient was seen and examined on the medical floor, she is alert and oriented x 3 in no apparent distress, she is complaining of shortness of breath with any activity otherwise she denies any complaints there is no fever or chills no headache or dizziness no chest pain she has occasional cough no nausea or vomiting no abdominal pain no diarrhea and no urinary symptoms, she remains on oxygen 4 L via nasal cannula, temperature is 98.0 pulse 69 respiration 19 blood pressure 126/50 pulse ox 93% on 4 L nasal cannula 02/27/2024 patient is alert and oriented 3. EEG and MRI has been ordered per neurology services. This time patient denies chest pain or shortness of breath. Patient denies nausea vomiting or diarrhea. Patient denies any urinary burning or frequency. Discharge planning to [facility] On 02/28/2024 patient was seen and examined on the medical floor she is alert and oriented in no apparent distress, there is no fever or chills no headache or dizziness no chest pain no shortness of breath no cough no nausea or vomiting no abdominal pain no diarrhea and no urinary symptoms blood pressure is low at 84/42, IV normal saline at 75 cc/h were added, cardiology consultation re quested, will follow closely. On 02/29/2024 patient is alert and oriented x 3. Awaiting cardiology input due to hypotension. Current vital signs temp 97.6, heart rate 60, blood pressure 88/55 with a pulse ox of 95% on 4 L patient denies chest pain or shortness of breath. Patient denies nausea vomiting or diarrhea. Patient denies any urinary burning or frequency On 03/01/2024 patient is alert and oriented x 3. EEG has been completed awaiting results. Per case management patient unlikely to be able to be DC'd to ECF due to insurance. Current vital signs temp 98.0, heart rate 55, respiratory rate 17, blood pressure 118/64 with a pulse ox of 95% on 4 L patient denies chest pain or shortness of breath. Patient denies nausea vomiting or diarrhea. Patient denies any urinary burning or frequency. On 03/02/2024 patient was seen and examined on the medical floor she is alert and oriented x 3 in no apparent distress she is complaining of chest congestion and shortness of breath otherwise she denies any complaints at this time there is no fever or chills no headache or dizziness no chest pain she has occasional cough no nausea or vomiting no abdominal pain no diarrhea no urinary symptoms, at this time will discontinue IV fluid and give 2 doses of IV Lasix, will continue to monitor closely On 03/03/2024 patient is alert and oriented x 3. Patient has been started on IV Lasix. Chest x-ray showingDiffuse increased lung markings can be on the basis of pulmonary edema correlate for CHF at this time will consult cardiology services. Patient reports improvement with shortness of breath. Patient denies chest pain. Patient denies nausea vomiting or diarrhea. Patient denies any urinary burning or frequency On 03/04/2024 patient was seen and examined on the medical floor she is alert and oriented x 3 in no apparent distress, she is reporting improvement in her shortness of breath and cough otherwise she denies any complaints there is no fever or chills no headache or dizziness no chest pain, no nausea or vomiting no abdominal pain no diarrhea no blood in the stools no burning with urination no frequency or urgency and no hematuria On 03/05/2024 patient is alert and oriented x 3. Patient complaining about right ankle pain will order x-ray. Patient marilee on IV Lasix likely will transition to p.o. Lasix today per cardiology. At this time patient denies chest pain or shortness of breath. Patient denies nausea vomiting or diarrhea. Patient denies any urinary burning or frequency On 03/06/2024 patient was seen and examined on the medical floor she is alert and oriented x 3 in no apparent distress there is no fever or chills no headache or dizziness no chest pain no shortness of breath no cough no nausea or vomiting no abdominal pain no diarrhea and no urinary symptoms, patient still maintained on oxygen 4 L via nasal cannula. Objective - Vital Signs Vital signs: Vital Signs Temp 98 F 03/06/24 07:15 Pulse 66 03/06/24 07:15 Resp 17 03/06/24 07:15 BP 125/68 03/06/24 07:15 Pulse Ox 95 03/06/24 07:15 FiO2 Intake & Output 03/05/24 03/06/24 03/06/24 18:59 06:59 18:59 Intake Total 540 Balance 540 Weight 78.3 kg Intake: Oral 540 Other: Voiding Method Bedpan # Voids 6 # Bowel Movements 1 - Exam In general patient is alert and oriented x 3 in no distress HEENT head normocephalic and atraumatic Neck is supple no JVD no goiter no lymphadenopathy no carotid bruit Chest examination is clear to auscultation no crackles no wheezing Cardiac exam reveals regular heart sounds S1 and S2 no gallops no murmurs Abdomen is soft nontender no organomegaly with normal bowel sounds Extremity exam reveals no edema no cyanosis or clubbing Neurological examination reveals no gross focal deficits - Labs CBC & Chem 7: 03/06/24 02:40 03/06/24 02:40 Labs: Abnormal Lab Results - Last 24 Hours (Table) 03/05/24 03/05/24 03/05/24 Range/Units 03:08 11:38 19:25 RBC (4.10-5.20) X 10*6/uL Hgb (12.0-15.0) g/dL Hct (37.2-46.3) % MCHC (32.0-37.0) g/dL RDW (11.5-14.5) % Eosinophils # (0.04-0.35) X 10*3/uL POC Glucose (mg/dL) 118 H 118 H (70-110) mg/dL Calcium 8.4 L (8.7-10.3) mg/dL AST 40 H (13-35) U/L Total Protein 5.2 L (6.2-8.2) g/dL Albumin 3.0 L (3.8-4.9) g/dL Albumin/Globulin Ratio 1.36 L (1.60-3.17) Ratio 03/06/24 03/06/24 Range/Units 02:40 02:40 RBC 3.29 L (4.10-5.20) X 10*6/uL Hgb 9.0 L (12.0-15.0) g/dL Hct 29.8 L (37.2-46.3) % MCHC 30.2 L (32.0-37.0) g/dL RDW 17.2 H (11.5-14.5) % Eosinophils # 0.36 H (0.04-0.35) X 10*3/uL POC Glucose (mg/dL) (70-110) mg/dL Calcium 8.5 L (8.7-10.3) mg/dL AST 43 H (13-35) U/L Total Protein 5.2 L (6.2-8.2) g/dL Albumin 3.0 L (3.8-4.9) g/dL Albumin/Globulin Ratio 1.36 L (1.60-3.17) Ratio Assessment and Plan Plan: Generalized weakness with multiple falls Anemia, will check stools for Hemoccult, check iron vitamin B12 and folate level, consult gastroenterology for GI workup Urinary tract infection Underlying history of hypertension Underlying history of hyperlipidemia Underlying history of hypothyroidism Underlying history of seizure activity maintained on Keppra Underlying history of depression with anxiety disorder 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
[2024-03-06 20:31] LABS: Glucose,Whole Blood 123 mg/dL (70-110)
[2024-03-07 06:29] LABS: Glucose,Whole Blood 115 mg/dL (70-110)
--- NOTE | 2024-03-07 09:33 | P.PN ---
Subjective Progress Note Date: 03/07/24 Alexia Rubin, is a 74-year-old female who presented to [facility] emergency room with a chief complaint of generalized weakness and multiple falls, patient was recently hospitalized, and transferred to [facility] for rehabilitation, she was recently discharged home, however she continued to have severe weakness and multiple falls, she was brought back by her family to the emergency room for further evaluation and treatment and possible readmission to the senior care. She was evaluated in the emergency room vital examination on presentation revealed a temperature of 97.8 pulse 70 respiration 18 blood pressure 94/69 pulse ox 99% on room air Laboratory data revealed a white blood count of 9.4 hemoglobin 9.2 platelet count 347 sodium 136 potassium 3.3 chloride 103 CO2 26 BUN 10 creatinine 0.62 lactic acid 1.5, urine analysis revealed evidence of urinary tract infection Testing in the emergency room revealed EKG done in the emergency room revealed sinus rhythm with occasional supraventricular premature complexes, x-ray of the left knee done in the emergency room revealed moderate left joint effusion, chest x-ray was done in the emergency room and revealed evidence for pulmonary edema. Patient was admitted to medical floor for further evaluation and treatment On 02/25/2024 patient's alert and oriented x 3. Repeat labs have been ordered. Carotid Doppler showing some stenosis will consult Dr. Espinal for vascular surgery. GI recommending outpatient follow-up with Dr. hall still awaiting neurology input. Current vital signs temp 97.8, heart rate 65, respiratory rate 15, blood pressure 105/51 with a pulse ox of 97% on 4 L On 02/26/2024 patient was seen and examined on the medical floor, she is alert and oriented x 3 in no apparent distress, she is complaining of shortness of breath with any activity otherwise she denies any complaints there is no fever or chills no headache or dizziness no chest pain she has occasional cough no nausea or vomiting no abdominal pain no diarrhea and no urinary symptoms, she remains on oxygen 4 L via nasal cannula, temperature is 98.0 pulse 69 respiration 19 blood pressure 126/50 pulse ox 93% on 4 L nasal cannula 02/27/2024 patient is alert and oriented 3. EEG and MRI has been ordered per neurology services. This time patient denies chest pain or shortness of breath. Patient denies nausea vomiting or diarrhea. Patient denies any urinary burning or frequency. Discharge planning to [facility] On 02/28/2024 patient was seen and examined on the medical floor she is alert and oriented in no apparent distress, there is no fever or chills no headache or dizziness no chest pain no shortness of breath no cough no nausea or vomiting no abdominal pain no diarrhea and no urinary symptoms blood pressure is low at 84/42, IV normal saline at 75 cc/h were added, cardiology consultation re quested, will follow closely. On 02/29/2024 patient is alert and oriented x 3. Awaiting cardiology input due to hypotension. Current vital signs temp 97.6, heart rate 60, blood pressure 88/55 with a pulse ox of 95% on 4 L patient denies chest pain or shortness of breath. Patient denies nausea vomiting or diarrhea. Patient denies any urinary burning or frequency On 03/01/2024 patient is alert and oriented x 3. EEG has been completed awaiting results. Per case management patient unlikely to be able to be DC'd to ECF due to insurance. Current vital signs temp 98.0, heart rate 55, respiratory rate 17, blood pressure 118/64 with a pulse ox of 95% on 4 L patient denies chest pain or shortness of breath. Patient denies nausea vomiting or diarrhea. Patient denies any urinary burning or frequency. On 03/02/2024 patient was seen and examined on the medical floor she is alert and oriented x 3 in no apparent distress she is complaining of chest congestion and shortness of breath otherwise she denies any complaints at this time there is no fever or chills no headache or dizziness no chest pain she has occasional cough no nausea or vomiting no abdominal pain no diarrhea no urinary symptoms, at this time will discontinue IV fluid and give 2 doses of IV Lasix, will continue to monitor closely On 03/03/2024 patient is alert and oriented x 3. Patient has been started on IV Lasix. Chest x-ray showingDiffuse increased lung markings can be on the basis of pulmonary edema correlate for CHF at this time will consult cardiology services. Patient reports improvement with shortness of breath. Patient denies chest pain. Patient denies nausea vomiting or diarrhea. Patient denies any urinary burning or frequency On 03/04/2024 patient was seen and examined on the medical floor she is alert and oriented x 3 in no apparent distress, she is reporting improvement in her shortness of breath and cough otherwise she denies any complaints there is no fever or chills no headache or dizziness no chest pain, no nausea or vomiting no abdominal pain no diarrhea no blood in the stools no burning with urination no frequency or urgency and no hematuria On 03/05/2024 patient is alert and oriented x 3. Patient complaining about right ankle pain will order x-ray. Patient marilee on IV Lasix likely will transition to p.o. Lasix today per cardiology. At this time patient denies chest pain or shortness of breath. Patient denies nausea vomiting or diarrhea. Patient denies any urinary burning or frequency On 03/06/2024 patient was seen and examined on the medical floor she is alert and oriented x 3 in no apparent distress there is no fever or chills no headache or dizziness no chest pain no shortness of breath no cough no nausea or vomiting no abdominal pain no diarrhea and no urinary symptoms, patient still maintained on oxygen 4 L via nasal cannula. On 03/07/2024 patient is alert and oriented x 3. Patient laying comfortably in bed still having significant weakness per case management patient unable to go to any [facility] facility will talk to daughter. At this time patient denies chest pain or shortness of breath. Patient denies nausea vomiting or diarrhea. Patient denies any urinary burning or frequency Objective - Vital Signs Vital signs: Vital Signs Temp 98.0 F 03/07/24 06:48 Pulse 66 03/07/24 06:48 Resp 16 03/07/24 06:48 BP 90/44 03/07/24 06:48 Pulse Ox 96 03/07/24 07:43 FiO2 Intake & Output 03/06/24 03/07/24 03/07/24 18:59 06:59 18:59 Other: Voiding Method Bedpan Diaper # Voids 2 - Exam In general patient is alert and oriented x 3 in no distress HEENT head normocephalic and atraumatic Neck is supple no JVD no goiter no lymphadenopathy no carotid bruit Chest examination is clear to auscultation no crackles no wheezing Cardiac exam reveals regular heart sounds S1 and S2 no gallops no murmurs Abdomen is soft nontender no organomegaly with normal bowel sounds Extremity exam reveals no edema no cyanosis or clubbing Neurological examination reveals no gross focal deficits - Labs CBC & Chem 7: 03/06/24 02:40 03/06/24 02:40 Labs: Abnormal Lab Results - Last 24 Hours (Table) 03/06/24 03/06/24 03/06/24 Range/Units 11:40 16:15 20:30 POC Glucose (mg/dL) 116 H 117 H 123 H (70-110) mg/dL 03/07/24 Range/Units 06:27 POC Glucose (mg/dL) 115 H (70-110) mg/dL Assessment and Plan Plan: Generalized weakness with multiple falls Anemia, will check stools for Hemoccult, check iron vitamin B12 and folate level, consult gastroenterology for GI workup Urinary tract infection Underlying history of hypertension Underlying history of hyperlipidemia Underlying history of hypothyroidism Underlying history of seizure activity maintained on Keppra Underlying history of depression with anxiety disorder 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
[2024-03-07 11:34] LABS: Glucose,Whole Blood 116 mg/dL (70-110)
--- NOTE | 2024-03-07 11:39 | P.PN ---
Subjective Progress Note Date: 03/07/24 I was asked to evaluate this patient regarding her abnormal CAT scan of the chest. The patient is known to me. She follows up with my partner in the office. She has history of chronic pulmonary fibrosis. She was also history of anal cancer and she was noted to have a right lower lobe subpleural opacity that showed some limited activity on the previous PET scan. There was concern for malignancy. I was approached the biopsy this abnormality. Nevertheless, the findings on the CAT scan were quite nonspecific and we decided to monitor and continue surveillance with another CAT scan of the chest and a PET/CT. Noted the patient underwent a follow-up CAT scan of the chest on 01/26/2024. That time, the patient was noted to have a moderate-sized right-sided pleural effusion. Chronic fibrotic changes bilaterally. The right lower lobe subpleural opacity was still present and there was note of right hilar and similar mediastinal lymphadenopathy. At that point, the patient was given a thoracentesis of the right lung. This was done during her hospital stay and the pleural fluid that was drained turned out to be an exudate with negative cytology. The procedure was done without any complications. A total of 1 L of dark yellowish fluid was aspirated and the fluid cytology was negative for malignancy. No subsequent pneumothorax. In any rate, the patient was supposed to have a PET/CT and this is scheduled to be done on 02/27/2024. Meanwhile, the patient gets hospitalized again with fall. She felt very weak and she landed on her knees bilaterally. She has undergone previous bilateral knee replacements. No reported fractures. No focal neurological deficits. She has carotid Dopp lers that reported occlusion in the right ICA and moderate disease in the left ICA. Vascular surgery has been consulted regarding carotid artery stenosis. Along with pulmonary fibrosis, she has diabetes mellitus, hyperlipidemia, squamous cell anal cancer and anemia of chronic disease. She is oxygen dependent and currently she is on oxygen at 4 L nasal cannula. The white cell count is at 10.2 with a hemoglobin of 10.3 and a platelet count of 318. Sodium levels at 134, BUN is 11 with a creatinine of 0.6. No cough. No sputum production. No chest tightness. No wheezing. Repeat chest x-ray that was done during this current admission shows chronic fibrotic changes bilaterally without any evidence of fluid recurrence. Her previous echocardiogram done on 01/25/2024 showed a preserved LV function, mild to moderate mitral regurgitation and moderate mitral stenosis and moderate degree of pulmonary hypertension with tricuspid regurgitation. The CAT scan of the brain done on 02/25/2024 showed no acute intracranial process in the remote included injury with nonspecific white matter changes and chronic microangiopathy. On 02/26/2024, the patient is being seen for a follow-up. No new complaints. The patient was seen by neurology. Unable to do MRI of the brain as the patient has a pain stimulator. EEG was ordered. Essentially The Same Medications. White Cell Count Is at 8.9, Hemoglobin 9.6, Platelet Count of 402. Electrolytes Are All within Normal Limits. On 02/27/2024, seen the patient for a follow-up. No respiratory difficulties. She continues to have generalized weakness. Alert oriented x 3. MRI of the brain and EEG is also ordered by neurology. Labs are stable. Hemoglobin is at 9.6, the white cell count is at 8.9, electrolytes are all within normal limits. Normal LFTs. The patient is seen today February 28, 2024 in follow-up on the regular medical floor. She is currently resting in bed. Awake and alert in no acute distress. Maintaining good O2 saturation in the mid 90s on 4 L/min per nasal cannula. She is afebrile. Urine culture revealed no growth. White count 6.6. Hemoglobin 9.1. Platelets 381. Sodium 138. Potassium 3.7. Bicarb 24. BUN 9. Creatinine 0.7. Glucose 102. She is currently on ceftriaxone. Normal saline at 75 mL/h. The patient is seen today February 29, 2024 in follow-up on the regular medical floor. She is sitting up in bed. Awake and alert in no acute distress. O2 saturations in the 90s on 4 L/min per nasal cannula. She is afebrile. Culture revealed no growth. White count 6.6. Hemoglobin 8.5. Platelets 380. Sodium 138. Potassium 3.4. Bicarb 25. BUN 8. Creatinine 0.6. Troponin negative. Procalcitonin negative at 0.07. Rocephin discontinued. She remains on Lovenox for DVT prophylaxis. Normal saline at 75 mL/h. The patient is seen today March 01, 2024 in follow-up on the regular medical floor. She is currently resting in bed. Awake and alert in no acute distress. She is maintaining good O2 saturations in the 90s on 4 L/min per nasal cannula. She has normal saline at 75 mL/h. Lovenox for DVT prophylaxis. White count 7.9. Hemoglobin 8.6. Platelets 400. Sodium 138. Potassium 3.8. Bicarb 24. BUN 8. Creatinine 0.6. Glucose 100. The patient is seen today March 02, 2024 in follow-up on the regular medical floor. She is resting comfortably in bed. Awake and alert in no acute distress. Maintaining O2 saturations in the 90s on 6 L/min per nasal cannula. She has been afebrile. Hemodynamically stable. Follow-up chest x-ray pending. Echocardiogram pending. Glucose 136. Lovenox for DVT prophylaxis. Normal saline at 75 mL/h. The patient is seen today March 03, 2024 in follow-up on the regular medical floor. She is sitting up in bed. Awake and alert in no acute distress. Denies any worsening shortness of breath, cough or congestion. Feeling better today compared to yesterday. She is maintaining O2 saturations in the 90s on 6 L high flow nasal cannula. She has been afebrile. Hemodynamically stable. Currently in a -1.8 L balance. White count 9.2. Hemoglobin 8.2. Platelets 386. Sodium 137. Potassium 3.2. Bicarb 26. BUN 8. Creatinine 0.6. She remains on IV diuretics. Lovenox for DVT prophylaxis. The patient is seen today March 04, 2024 in follow-up on the regular medical floor. She is awake and alert in no acute distress. Sitting up in bed. Denies any worsening shortness of breath, cough or congestion. Feeling better. Diuresing well from the IV Lasix. Remains in a negative balance. Urine culture revealed no growth. Sodium 137. Potassium 3.5. Bicarb 26. BUN 10. Creatinine 0.6. Glucose 104. Lovenox for DVT prophylaxis. The patient is seen today March 05, 2024 in follow-up on the regular medical floor. She is currently sitting up in a chair. Awake and alert in no acute distress. Denies any worsening shortness of breath, cough or congestion. She is maintaining good O2 saturations in the 90s on 2 L/min per nasal cannula. She remains on diuretics. Continued on bronchodilators. Lovenox for DVT prophylaxis. White count 7.8. Hemoglobin 8.5. Platelets 411. Sodium 138. Potassium 3.7. Bicarb 26. BUN 10. Creatinine 0.6. Glucose 101. The patient is seen today March 06, 2024 in follow-up on the regular medical floor. She is resting comfortably in bed. Awake and alert in no acute d istress. Maintaining O2 saturations in the 90s on 4 L/min per nasal cannula. She denies any worsening shortness of breath, cough or congestion. Chest x-ray reveals coarse infiltrates bilaterally. Unchanged. Urine culture reveals no growth. White count 7.5. Hemoglobin 9.0. Platelets 435. Sodium 138. Potassium 3.9. Bicarb 26. BUN 10. Creatinine 0.6. Glucose 95. She is continued on diuretics. Lovenox for DVT prophylaxis. The patient is seen today March 07, 2024 in follow-up on the regular medical floor. She is awake and alert in no acute distress. Resting in bed. Denies any worsening shortness of breath, cough or congestion. Continues to 4 L/min per nasal cannula. She has been afebrile. Urine culture revealed no growth. Glucose 116. Continued on oral diuretics. Lovenox for DVT prophylaxis Objective - Vital Signs Vital signs: Vital Signs Temp 98.0 F 03/07/24 06:48 Pulse 66 03/07/24 06:48 Resp 16 03/07/24 06:48 BP 90/44 03/07/24 06:48 Pulse Ox 96 03/07/24 07:43 FiO2 Intake & Output 03/06/24 03/07/24 03/07/24 18:59 06:59 18:59 Other: Voiding Method Bedpan Diaper Diaper # Voids 2 - Exam GENERAL EXAM: Alert, pleasant 74-year-old female, on 4 L nasal cannula, comfortable in no apparent distress. HEAD: Normocephalic. EYES: Normal reaction of pupils, equal size. NOSE: Clear with pink turbinates. THROAT: No erythema or exudates. NECK: No masses, no JVD. CHEST: No chest wall deformity. LUNGS: Equal air entry with few scattered rhonchi. CVS: S1 and S2 normal with no audible murmur, regular rhythm. ABDOMEN: No hepatosplenomegaly, normal bowel sounds, no guarding or rigidity. SPINE: No scoliosis or deformity SKIN: No rashes CENTRAL NERVOUS SYSTEM: No focal deficits, tone is normal in all 4 extremities. EXTREMITIES: Transmetatarsal amputation on the right foot. There is no peripheral edema. No clubbing, no cyanosis. Peripheral pulses are intact. - Labs CBC & Chem 7: 03/06/24 02:40 03/06/24 02:40 Labs: Abnormal Lab Results - Last 24 Hours (Table) 03/06/24 03/06/24 03/06/24 Range/Units 11:40 16:15 20:30 POC Glucose (mg/dL) 116 H 117 H 123 H (70-110) mg/dL 03/07/24 03/07/24 Range/Units 06:27 11:31 POC Glucose (mg/dL) 115 H 116 H (70-110) mg/dL Assessment and Plan Assessment: Acute on chronic hypoxemic respiratory failure secondary to chronic pulmonary fibrosis, diastolic congestive heart failure, currently on 4 L of oxygen by nasal cannula. 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 Awaiting a follow-up PET/CT on 02/27/2024. Noted the patient also has some nonspecific right hilar than mediastinal lymphadenopathy that is being monitored. The patient has a 3 cm masslike consolidative density in the right lower lobe being followed in the outpatient setting. A PET scan from August 19, 2023 revealed right lower lobe pulmonary nodule with increased metabolic activity compatible with malignancy. There is at least 1 right pulmonary hilum lymph node suspicious for metastatic disease. Extensive interstitial opacities along suspicious for ILD. CT scan of the chest was done yesterday 10/08/2023 that revealed similar pleural-based mass of the right lower lobe which is essentially unchanged in overall size and appearance. Possible minimal early cavitation. Pulmonary fibrosis at least moderate in degree. Plan is for follow-up PET scan Chronic hypoxic respiratory failure, normally on 4 L History of anal cancer. Treated with chemotherapy and radiation therapy Right-sided pleural effusion, exudate, post thoracentesis January 28 2024 without any recurrence. A total of 1 L of fluid was aspirated Valvular heart disease with mild to moderate mitral stenosis moderate degree of pulmonary hypertension based on most recent echocardiogram. Patient has preserved LV function History of CVA/TIA x 3 with evidence of carotid artery disease with left-sided stenosis in the order of 50 to 69% Obstructive sleep apnea, no CPAP therapy for now Peripheral vascular disease, and the patient has undergone previous right fem- tib bypass and the patient has previous right toe amputations Nephrolithiasis Diabetes mellitus type 2 Hyperlipidemia Hypothyroidism Former smoker Generalized weakness and frequent falls without any fracture Plan: The patient was seen and evaluated Labs and medications reviewed Continue the current treatment plan Lovenox for DVT prophylaxis Increase her activity as tolerated Plan is for home with home care tomorrow This patient was seen independently by the pulmonary nurse practitioner addressing pulmonary issues I have personally seen and examined the patient, performed the documentation and the assessment and plan as written. Number of minutes spent on the visit: 24 Dictation was produced using [employer] dictation software. Please excuse any grammatical, word or spelling errors.
[2024-03-07 16:26] LABS: Glucose,Whole Blood 98 mg/dL (70-110)
[2024-03-07 20:23] LABS: Glucose,Whole Blood 113 mg/dL (70-110)
[2024-03-08 06:26] LABS: Glucose,Whole Blood 103 mg/dL (70-110)
[2024-03-08 06:51] VITALS: BP 104/59; PULSE 67; RESP 16; TEMP 98.3
[2024-03-08 08:51] LABS: ALT 22 U/L (8-44); AST 31 U/L (13-35); Albumin/Globulin Ratio 1.36 Ratio (1.60-3.17); Alkaline Phosphatase 84 U/L (41-126); BUN/Creat Ratio 14.71 Ratio (12.00-20.00); Blood Urea Nitrogen 10.3 mg/dL (9.0-27.0); Calcium 8.4 mg/dL (8.7-10.3); Carbon Dioxide 24.7 mmol/L (21.6-31.8); Chloride 102 mmol/L (96-109); Globulin 2.2 g/dL (1.6-3.3); Glucose 101 mg/dL (70-110); Sodium 138 mmol/L (135-145); Total Bilirubin 0.4 mg/dL (0.3-1.2); Total Protein 5.2 g/dL (6.2-8.2)
[2024-03-08 08:54] LABS: Basophils # (A) 0.04 X 10*3/uL (0.00-0.10); Basophils % (A) 0.4 %; Eosinophils # (A) 0.27 X 10*3/uL (0.04-0.35); HGB 9.3 g/dL (12.0-15.0); Lymphocytes # (A) 1.93 X 10*3/uL (0.90-5.00); Lymphocytes % (A) 21.5 %; MCH 27.1 pg (27.0-32.0); MCV 87.5 FL (80.0-97.0); Mean Platelet Volume 10.3 FL (9.5-12.2); Monocytes # (A) 0.61 X 10*3/uL (0.20-1.00); Monocytes % (A) 6.8 %; NRBC Per 100 WBC 0 X 10*3/uL (0.00-0.01); Neutrophils # (A) 6.07 X 10*3/uL (1.80-7.70); Neutrophils % (A) 67.9 %; Platelet Count 435 X 10*3/uL (140-440); RBC 3.43 X 10*6/uL (4.10-5.20); RDW 17.3 % (11.5-14.5); WBC 8.96 X 10*3/uL (4.50-10.00)
--- NOTE | 2024-03-08 09:29 | P.DS ---
Providers Date of admission: 02/25/24 10:17 Expected date of discharge: 03/08/24 Attending physician: Lisseth Isaac Consults: 02/24/24 18:12 Consult Physician Routine Consulting Provider: Charlie Irving Consult Reason/Comments: Weakness and multiple falls Do you want consulting provider notified?: Yes 02/25/24 10:44 Consult Physician Routine Consulting Provider: Alexandra Adams Consult Reason/Comments: COPD Do you want consulting provider notified?: Yes 02/28/24 14:00 Consult Physician Routine Consulting Provider: Reji Genao Consult Reason/Comments: Hypotension Do you want consulting provider notified?: Yes 03/01/24 13:36 Consult Physician Routine Consulting Provider: Danni Bennett Consult Reason/Comments: IPR consult Do you want consulting provider notified?: Yes Primary care physician: Lisseth Isaac [facility] Course: Discharge diagnosis Generalized weakness with multiple falls Anemia, will check stools for Hemoccult, check iron vitamin B12 and folate level, consult gastroenterology for GI workup Urinary tract infection Underlying history of hypertension Underlying history of hyperlipidemia Underlying history of hypothyroidism Underlying history of seizure activity maintained on Keppra Underlying history of depression with anxiety disorder 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 for rehabilitation, she was recently discharged home, however she continued to have severe weakness and multiple falls, she was brought back by her family to the emergency room for further evaluation and treatment and possible readmission to the [facility]. She was evaluated in the emergency room vital examination on presentation revealed a temperature of 97.8 pulse 70 respiration 18 blood pressure 94/69 pulse ox 99% on room air Laboratory data revealed a white blood count of 9.4 hemoglobin 9.2 platelet count 347 sodium 136 potassium 3.3 chloride 103 CO2 26 BUN 10 creatinine 0.62 lactic acid 1.5, urine analysis revealed evidence of urinary tract infection Testing in the emergency room revealed EKG done in the emergency room revealed sinus rhythm with occasional supraventricular premature complexes, x-ray of the left knee done in the emergency room revealed moderate left joint effusion, chest x-ray was done in the emergency room and revealed evidence for pulmonary edema. Patient was admitted to medical floor for further evaluation and treatment On 02/25/2024 patient's alert and oriented x 3. Repeat labs have been ordered. Carotid Doppler showing some stenosis will consult Dr. Espinal for vascular surgery. GI recommending outpatient follow-up with Dr. hall still awaiting neurology input. Current vital signs temp 97.8, heart rate 65, respiratory rate 15, blood pressure 105/51 with a pulse ox of 97% on 4 L On 02/26/2024 patient was seen and examined on the medical floor, she is alert and oriented x 3 in no apparent distress, she is complaining of shortness of breath with any activity otherwise she denies any complaints there is no fever or chills no headache or dizziness no chest pain she has occasional cough no nausea or vomiting no abdominal pain no diarrhea and no urinary symptoms, she remains on oxygen 4 L via nasal cannula, temperature is 98.0 pulse 69 respiration 19 blood pressure 126/50 pulse ox 93% on 4 L nasal cannula 02/27/2024 patient is alert and oriented 3. EEG and MRI has been ordered per neurology services. This time patient denies chest pain or shortness of breath. Patient denies nausea vomiting or diarrhea. Patient denies any urinary burning or frequency. Discharge planning to [facility] On 02/28/2024 patient was seen and examined on the medical floor she is alert and oriented in no apparent distress, there is no fever or chills no headache or dizziness no chest pain no shortness of breath no cough no nausea or vomiting no abdominal pain no diarrhea and no urinary symptoms blood pressure is low at 84/42, IV normal saline at 75 cc/h were added, cardiology consultation reques trevor, will follow closely. On 02/29/2024 patient is alert and oriented x 3. Awaiting cardiology input due to hypotension. Current vital signs temp 97.6, heart rate 60, blood pressure 88/55 with a pulse ox of 95% on 4 L patient denies chest pain or shortness of breath. Patient denies nausea vomiting or diarrhea. Patient denies any urinary burning or frequency On 03/01/2024 patient is alert and oriented x 3. EEG has been completed awaiting results. Per case management patient unlikely to be able to be DC'd to ECF due to insurance. Current vital signs temp 98.0, heart rate 55, respiratory rate 17, blood pressure 118/64 with a pulse ox of 95% on 4 L patient denies chest pain or shortness of breath. Patient denies nausea vomiting or diarrhea. Patient denies any urinary burning or frequency. On 03/02/2024 patient was seen and examined on the medical floor she is alert and oriented x 3 in no apparent distress she is complaining of chest congestion and shortness of breath otherwise she denies any complaints at this time there is no fever or chills no headache or dizziness no chest pain she has occasional cough no nausea or vomiting no abdominal pain no diarrhea no urinary symptoms, at this time will discontinue IV fluid and give 2 doses of IV Lasix, will continue to monitor closely On 03/03/2024 patient is alert and oriented x 3. Patient has been started on IV Lasix. Chest x-ray showingDiffuse increased lung markings can be on the basis of pulmonary edema correlate for CHF at this time will consult cardiology services. Patient reports improvement with shortness of breath. Patient denies chest pain. Patient denies nausea vomiting or diarrhea. Patient denies any urinary burning or frequency On 03/04/2024 patient was seen and examined on the medical floor she is alert and oriented x 3 in no apparent distress, she is reporting improvement in her shortness of breath and cough otherwise she denies any complaints there is no fever or chills no headache or dizziness no chest pain, no nausea or vomiting no abdominal pain no diarrhea no blood in the stools no burning with urination no frequency or urgency and no hematuria On 03/05/2024 patient is alert and oriented x 3. Patient complaining about right ankle pain will order x-ray. Patient marilee on IV Lasix likely will transition to p.o. Lasix today per cardiology. At this time patient denies chest pain or shortness of breath. Patient denies nausea vomiting or diarrhea. Patient denies any urinary burning or frequency On 03/06/2024 patient was seen and examined on the medical floor she is alert and oriented x 3 in no apparent distress there is no fever or chills no headache or dizziness no chest pain no shortness of breath no cough no nausea or vomiting no abdominal pain no diarrhea and no urinary symptoms, patient still maintained on oxygen 4 L via nasal cannula. On 03/07/2024 patient is alert and oriented x 3. Patient laying comfortably in bed still having significant weakness per case management patient unable to go to any [facility] facility will talk to daughter. At this time patient denies chest pain or shortness of breath. Patient denies nausea vomiting or diarrhea. Patient denies any urinary burning or frequency On 03/08/2024 patient is alert and oriented x 3. Patient will be DC'd home with home health care. Patient is staying with daughter per case management patient will require hospital bed. Patient will follow-up with PCP and consulting providers for further management at this time patient denies chest pain or shortness of breath. Patient denies nausea vomiting or diarrhea. Patient denies any urinary burning or frequency Patient Condition at Discharge: Stable Plan - Discharge Summary Discharge Rx Participant: Yes New Discharge Prescriptions: New Folic Acid 1 mg PO DAILY 30 Days #30 tab Furosemide [Lasix] 40 mg PO DAILY 30 Days #30 tab Midodrine [ProAmatine] 2.5 mg PO AC-BID 30 Days #60 tab Continue Levothyroxine Sodium [Synthroid] 25 mcg PO DAILY Gabapentin [Neurontin] 300 mg PO BID Gabapentin 600 mg PO BID Atorvastatin [Lipitor] 80 mg PO HS traZODone HCL [Desyrel] 100 mg PO HS Ferrous Sulfate [Iron (65 MG Elemental)] 325 mg PO DAILY Albuterol Inhaler [Ventolin Hfa Inhaler] 2 puff INHALATION RT-Q6H PRN PRN Reason: Shortness Of Breath Aspirin 81 mg PO DAILY tab FLUoxetine HCL [PROzac] 40 mg PO DAILY carBAMazepine [carBAMazepine ER] 100 mg PO BID levETIRAcetam [Keppra] 750 mg PO BID ALPRAZolam [Xanax] 0.25 mg PO DAILY HYDROcodone/APAP 7.5-325MG [[place] 7.5-325] 1 tab PO BID Clopidogrel [Plavix] 75 mg PO DAILY Discontinued Furosemide [Lasix] 40 mg PO BID@0900,1300 Discharge Medication List Levothyroxine Sodium [Synthroid] 25 mcg PO DAILY 08/15/16 [History] FLUoxetine HCL [PROzac] 40 mg PO DAILY 07/25/20 [History] Gabapentin [Neurontin] 300 mg PO BID 08/03/22 [History] Atorvastatin [Lipitor] 80 mg PO HS 04/04/23 [History] Gabapentin 600 mg PO BID 04/04/23 [History] carBAMazepine [carBAMazepine ER] 100 mg PO BID 04/04/23 [History] levETIRAcetam [Keppra] 750 mg PO BID 07/19/23 [History] Ferrous Sulfate [Iron (65 MG Elemental)] 325 mg PO DAILY 09/10/23 [History] traZODone HCL [Desyrel] 100 mg PO HS 09/10/23 [History] ALPRAZolam [Xanax] 0.25 mg PO DAILY 01/23/24 [History] Albuterol Inhaler [Ventolin Hfa Inhaler] 2 puff INHALATION RT-Q6H PRN 01/23/24 [History] HYDROcodone/APAP 7.5-325MG [[place] 7.5-325] 1 tab PO BID 01/23/24 [History] Aspirin 81 mg PO DAILY tab 01/31/24 [Rx] Clopidogrel [Plavix] 75 mg PO DAILY 02/23/24 [History] Folic Acid 1 mg PO DAILY 30 Days #30 tab 03/08/24 [Rx] Furosemide [Lasix] 40 mg PO DAILY 30 Days #30 tab 03/08/24 [Rx] Midodrine [ProAmatine] 2.5 mg PO AC-BID 30 Days #60 tab 03/08/24 [Rx] Follow up Appointment(s)/Referral(s): [facility]idential [facility] [NON-STAFF] - As Needed Lisseth Isaac MD [Primary Care Provider] - 1-2 days Activity/Diet/Wound Care/Special Instructions: Patient will require hospital bed to manage shortness of breath due to chronic pulmonary fibrosis which can not be managed with a regular bed. Discharge Disposition: HOME WITH HOME HEALTH SERVICES
[2024-03-08 11:18] LABS: Glucose,Whole Blood 108 mg/dL (70-110)
--- NOTE | 2024-03-08 12:06 | P.PN ---
Subjective Progress Note Date: 03/08/24 I was asked to evaluate this patient regarding her abnormal CAT scan of the chest. The patient is known to me. She follows up with my partner in the office. She has history of chronic pulmonary fibrosis. She was also history of anal cancer and she was noted to have a right lower lobe subpleural opacity that showed some limited activity on the previous PET scan. There was concern for malignancy. I was approached the biopsy this abnormality. Nevertheless, the findings on the CAT scan were quite nonspecific and we decided to monitor and continue surveillance with another CAT scan of the chest and a PET/CT. Noted the patient underwent a follow-up CAT scan of the chest on 01/26/2024. That time, the patient was noted to have a moderate-sized right-sided pleural effusion. Chronic fibrotic changes bilaterally. The right lower lobe subpleural opacity was still present and there was note of right hilar and similar mediastinal lymphadenopathy. At that point, the patient was given a thoracentesis of the right lung. This was done during her hospital stay and the pleural fluid that was drained turned out to be an exudate with negative cytology. The procedure was done without any complications. A total of 1 L of dark yellowish fluid was aspirated and the fluid cytology was negative for malignancy. No subsequent pneumothorax. In any rate, the patient was supposed to have a PET/CT and this is scheduled to be done on 02/27/2024. Meanwhile, the patient gets hospitalized again with fall. She felt very weak and she landed on her knees bilaterally. She has undergone previous bilateral knee replacements. No reported fractures. No focal neurological deficits. She has carotid Dopp lers that reported occlusion in the right ICA and moderate disease in the left ICA. Vascular surgery has been consulted regarding carotid artery stenosis. Along with pulmonary fibrosis, she has diabetes mellitus, hyperlipidemia, squamous cell anal cancer and anemia of chronic disease. She is oxygen dependent and currently she is on oxygen at 4 L nasal cannula. The white cell count is at 10.2 with a hemoglobin of 10.3 and a platelet count of 318. Sodium levels at 134, BUN is 11 with a creatinine of 0.6. No cough. No sputum production. No chest tightness. No wheezing. Repeat chest x-ray that was done during this current admission shows chronic fibrotic changes bilaterally without any evidence of fluid recurrence. Her previous echocardiogram done on 01/25/2024 showed a preserved LV function, mild to moderate mitral regurgitation and moderate mitral stenosis and moderate degree of pulmonary hypertension with tricuspid regurgitation. The CAT scan of the brain done on 02/25/2024 showed no acute intracranial process in the remote included injury with nonspecific white matter changes and chronic microangiopathy. On 02/26/2024, the patient is being seen for a follow-up. No new complaints. The patient was seen by neurology. Unable to do MRI of the brain as the patient has a pain stimulator. EEG was ordered. Essentially The Same Medications. White Cell Count Is at 8.9, Hemoglobin 9.6, Platelet Count of 402. Electrolytes Are All within Normal Limits. On 02/27/2024, seen the patient for a follow-up. No respiratory difficulties. She continues to have generalized weakness. Alert oriented x 3. MRI of the brain and EEG is also ordered by neurology. Labs are stable. Hemoglobin is at 9.6, the white cell count is at 8.9, electrolytes are all within normal limits. Normal LFTs. The patient is seen today February 28, 2024 in follow-up on the regular medical floor. She is currently resting in bed. Awake and alert in no acute distress. Maintaining good O2 saturation in the mid 90s on 4 L/min per nasal cannula. She is afebrile. Urine culture revealed no growth. White count 6.6. Hemoglobin 9.1. Platelets 381. Sodium 138. Potassium 3.7. Bicarb 24. BUN 9. Creatinine 0.7. Glucose 102. She is currently on ceftriaxone. Normal saline at 75 mL/h. The patient is seen today February 29, 2024 in follow-up on the regular medical floor. She is sitting up in bed. Awake and alert in no acute distress. O2 saturations in the 90s on 4 L/min per nasal cannula. She is afebrile. Culture revealed no growth. White count 6.6. Hemoglobin 8.5. Platelets 380. Sodium 138. Potassium 3.4. Bicarb 25. BUN 8. Creatinine 0.6. Troponin negative. Procalcitonin negative at 0.07. Rocephin discontinued. She remains on Lovenox for DVT prophylaxis. Normal saline at 75 mL/h. The patient is seen today March 01, 2024 in follow-up on the regular medical floor. She is currently resting in bed. Awake and alert in no acute distress. She is maintaining good O2 saturations in the 90s on 4 L/min per nasal cannula. She has normal saline at 75 mL/h. Lovenox for DVT prophylaxis. White count 7.9. Hemoglobin 8.6. Platelets 400. Sodium 138. Potassium 3.8. Bicarb 24. BUN 8. Creatinine 0.6. Glucose 100. The patient is seen today March 02, 2024 in follow-up on the regular medical floor. She is resting comfortably in bed. Awake and alert in no acute distress. Maintaining O2 saturations in the 90s on 6 L/min per nasal cannula. She has been afebrile. Hemodynamically stable. Follow-up chest x-ray pending. Echocardiogram pending. Glucose 136. Lovenox for DVT prophylaxis. Normal saline at 75 mL/h. The patient is seen today March 03, 2024 in follow-up on the regular medical floor. She is sitting up in bed. Awake and alert in no acute distress. Denies any worsening shortness of breath, cough or congestion. Feeling better today compared to yesterday. She is maintaining O2 saturations in the 90s on 6 L high flow nasal cannula. She has been afebrile. Hemodynamically stable. Currently in a -1.8 L balance. White count 9.2. Hemoglobin 8.2. Platelets 386. Sodium 137. Potassium 3.2. Bicarb 26. BUN 8. Creatinine 0.6. She remains on IV diuretics. Lovenox for DVT prophylaxis. The patient is seen today March 04, 2024 in follow-up on the regular medical floor. She is awake and alert in no acute distress. Sitting up in bed. Denies any worsening shortness of breath, cough or congestion. Feeling better. Diuresing well from the IV Lasix. Remains in a negative balance. Urine culture revealed no growth. Sodium 137. Potassium 3.5. Bicarb 26. BUN 10. Creatinine 0.6. Glucose 104. Lovenox for DVT prophylaxis. The patient is seen today March 05, 2024 in follow-up on the regular medical floor. She is currently sitting up in a chair. Awake and alert in no acute distress. Denies any worsening shortness of breath, cough or congestion. She is maintaining good O2 saturations in the 90s on 2 L/min per nasal cannula. She remains on diuretics. Continued on bronchodilators. Lovenox for DVT prophylaxis. White count 7.8. Hemoglobin 8.5. Platelets 411. Sodium 138. Potassium 3.7. Bicarb 26. BUN 10. Creatinine 0.6. Glucose 101. The patient is seen today March 06, 2024 in follow-up on the regular medical floor. She is resting comfortably in bed. Awake and alert in no acute d istress. Maintaining O2 saturations in the 90s on 4 L/min per nasal cannula. She denies any worsening shortness of breath, cough or congestion. Chest x-ray reveals coarse infiltrates bilaterally. Unchanged. Urine culture reveals no growth. White count 7.5. Hemoglobin 9.0. Platelets 435. Sodium 138. Potassium 3.9. Bicarb 26. BUN 10. Creatinine 0.6. Glucose 95. She is continued on diuretics. Lovenox for DVT prophylaxis. The patient is seen today March 07, 2024 in follow-up on the regular medical floor. She is awake and alert in no acute distress. Resting in bed. Denies any worsening shortness of breath, cough or congestion. Continues to 4 L/min per nasal cannula. She has been afebrile. Urine culture revealed no growth. Glucose 116. Continued on oral diuretics. Lovenox for DVT prophylaxis The patient is seen today March 08, 2024 in follow-up on the regular medical floor. She is up in a chair at the bedside. Awake and alert in no acute distress. She has been up ambulating with the assistance and her walker. She is maintaining good O2 saturations in the 90s on 3 L/min per nasal cannula. No IV fluids. She has been afebrile. Hemodynamically stable. Urine culture negative. White count 8.9. Hemoglobin 9.3. Platelets 435. Sodium 138. Potassium 4.0. Bicarb 25. BUN 10. Creatinine 0.7. Glucose 101. She remains on Lovenox for DVT prophylaxis. Continued on oral diuretics. Objective - Vital Signs Vital signs: Vital Signs Temp 98.3 F 03/08/24 06:49 Pulse 67 03/08/24 06:49 Resp 16 03/08/24 06:49 BP 104/59 03/08/24 06:49 Pulse Ox 94 L 03/08/24 06:49 FiO2 Intake & Output 03/07/24 03/08/24 03/08/24 18:59 06:59 18:59 Other: Voiding Method Diaper Bedpan Diaper # Voids 7 3 - Exam GENERAL EXAM: Alert, 74-year-old female, up with a walker, on 3 L nasal cannula, in no apparent distress. HEAD: Normocephalic. EYES: Normal reaction of pupils, equal size. NOSE: Clear with pink turbinates. THROAT: No erythema or exudates. NECK: No masses, no JVD. CHEST: No chest wall deformity. LUNGS: Equal air entry with no rhonchi, wheeze or dullness. CVS: S1 and S2 normal with no audible murmur, regular rhythm. ABDOMEN: No hepatosplenomegaly, normal bowel sounds, no guarding or rigidity. SPINE: No scoliosis or deformity SKIN: No rashes CENTRAL NERVOUS SYSTEM: No focal deficits, tone is normal in all 4 extremities. EXTREMITIES: Transmetatarsal amputation on the right foot. There is no perip heral edema. No clubbing, no cyanosis. Peripheral pulses are intact. - Labs CBC & Chem 7: 03/08/24 05:48 03/08/24 05:48 Labs: Abnormal Lab Results - Last 24 Hours (Table) 03/07/24 03/08/24 03/08/24 Range/Units 20:22 05:48 05:48 RBC 3.43 L (4.10-5.20) X 10*6/uL Hgb 9.3 L (12.0-15.0) g/dL Hct 30.0 L (37.2-46.3) % MCHC 31.0 L (32.0-37.0) g/dL RDW 17.3 H (11.5-14.5) % POC Glucose (mg/dL) 113 H (70-110) mg/dL Calcium 8.4 L (8.7-10.3) mg/dL Total Protein 5.2 L (6.2-8.2) g/dL Albumin 3.0 L (3.8-4.9) g/dL Albumin/Globulin Ratio 1.36 L (1.60-3.17) Ratio Assessment and Plan Assessment: Acute on chronic hypoxemic respiratory failure secondary to chronic pulmonary fibrosis, diastolic congestive heart failure, currently on 3 L of oxygen by nasal cannula. 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 Awaiting a follow-up PET/CT on 02/27/2024. Noted the patient also has some nonspecific right hilar than mediastinal lymphadenopathy that is being monitored. The patient has a 3 cm masslike consolidative density in the right lower lobe being followed in the out patient setting. A PET scan from August 19, 2023 revealed right lower lobe pulmonary nodule with increased metabolic activity compatible with malignancy. There is at least 1 right pulmonary hilum lymph node suspicious for metastatic disease. Extensive interstitial opacities along suspicious for ILD. CT scan of the chest was done yesterday 10/08/2023 that revealed similar pleural-based mass of the right lower lobe which is essentially unchanged in overall size and appearance. Possible minimal early cavitation. Pulmonary fibrosis at least moderate in degree. Plan is for follow-up PET scan Chronic hypoxic respiratory failure, normally on 4 L History of anal cancer. Treated with chemotherapy and radiation therapy Right-sided pleural effusion, exudate, post thoracentesis January 28 2024 without any recurrence. A total of 1 L of fluid was aspirated Valvular heart disease with mild to moderate mitral stenosis moderate degree of pulmonary hypertension based on most recent echocardiogram. Patient has preserved LV function History of CVA/TIA x 3 with evidence of carotid artery disease with left-sided stenosis in the order of 50 to 69% Obstructive sleep apnea, no CPAP therapy for now Peripheral vascular disease, and the patient has undergone previous right fem- tib bypass and the patient has previous right toe amputations Nephrolithiasis Diabetes mellitus type 2 Hyperlipidemia Hypothyroidism Former smoker Generalized weakness and frequent falls without any fracture Plan: The patient was seen and evaluated Labs and medications reviewed Stable and on 3 L nasal cannula She has been up with assistance and her walker Probable discharge today This patient was seen independently by the pulmonary nurse practitioner addressing pulmonary issues I have personally seen and examined the patient, performed the documentation and the assessment and plan as written. Number of minutes spent on the visit: 23 Dictation was produced using [employer] dictation software. Please excuse any grammatical, word or spelling errors.
== END 2024-03-08 14:59 | disposition home health service (06) | DRG 689 ==
LOC: EC 10:00 → 4SSUR 14:56 → OBSVTOIN 02-25 10:17
PROVIDERS: ADMIT Internal Medicine; ATTEND Internal Medicine
DX: N39.0 Urinary tract infection, site not specified (principal); I50.31 Acute diastolic (congestive) heart failure; J96.21 Acute and chronic respiratory failure with hypoxia; J84.9 Interstitial pulmonary disease, unspecified; J91.8 Pleural effusion in other conditions classified elsewhere; I27.20 Pulmonary hypertension, unspecified; D63.8 Anemia in other chronic diseases classified elsewhere; J84.10 Pulmonary fibrosis, unspecified; I11.0 Hypertensive heart disease with heart failure; Z99.81 Dependence on supplemental oxygen; E11.40 Type 2 diabetes mellitus with diabetic neuropathy, unspecified; E53.8 Deficiency of other specified B group vitamins; I65.23 Occlusion and stenosis of bilateral carotid arteries; J44.9 Chronic obstructive pulmonary disease, unspecified; G47.33 Obstructive sleep apnea (adult) (pediatric); N20.0 Calculus of kidney; E78.5 Hyperlipidemia, unspecified; E03.9 Hypothyroidism, unspecified; G40.909 Epilepsy, unspecified, not intractable, without status epilepticus; F32.A Depression, unspecified; E11.51 Type 2 diabetes mellitus with diabetic peripheral angiopathy without gangrene; G89.29 Other chronic pain; I08.1 Rheumatic disorders of both mitral and tricuspid valves; I49.1 Atrial premature depolarization; N32.81 Overactive bladder; W05.0XXA Fall from non-moving wheelchair, initial encounter; Y92.003 Bedroom of unspecified non-institutional (private) residence as the place of occurrence of the external cause; Y99.8 Other external cause status; Z85.048 Personal history of other malignant neoplasm of rectum, rectosigmoid junction, and anus; Z86.0100 Personal history of colon polyps, unspecified; Z79.02 Long term (current) use of antithrombotics/antiplatelets; Z79.82 Long term (current) use of aspirin; Z79.890 Hormone replacement therapy; Z79.899 Other long term (current) drug therapy; Z86.73 Personal history of transient ischemic attack (TIA), and cerebral infarction without residual deficits; Z87.440 Personal history of urinary (tract) infections; Z87.442 Personal history of urinary calculi; Z87.891 Personal history of nicotine dependence; Z89.431 Acquired absence of right foot; Z90.710 Acquired absence of both cervix and uterus; Z91.81 History of falling; Z92.21 Personal history of antineoplastic chemotherapy; Z92.3 Personal history of irradiation; Z96.611 Presence of right artificial shoulder joint; Z96.653 Presence of artificial knee joint, bilateral; Z88.1 Allergy status to other antibiotic agents; Z88.0 Allergy status to penicillin
CPT/HCPCS: 36415; 70450; 71045; 71046; 72125; 80048; 80053; 81001; 82272; 82607; 82728; 82746; 83036; 83540; 83550; 83605; 83735; 83880; 84145; 84484; 84550; 85025; 85610; 85730; 87086; 87324; 93005; 93308; 93880; 94760; 95816; 96361; 96365; 96375; 99285